=== PATIENT | male | born 1970 | race Caucasian/White ===

== ENCOUNTER 2020-12-31 14:40 | Emergency (ER) | payer OTHER, SELFPAY ==
--- NOTE | 2020-12-31 | ECG_ITS ---
Test Reason : CP Blood Pressure : / mmHG Vent. Rate : 093 BPM Atrial Rate : 093 BPM P-R Int : 118 ms QRS Dur : 080 ms QT Int : 370 ms P-R-T Axes : 042 025 038 degrees QTc Int : 460 ms Normal sinus rhythm Normal ECG When compared with ECG of 08-APR-2018 16:13, No significant change was found Referred By: Jose Antonio Watson Electronically Signed By:DWAYNE GARG
--- NOTE | ~2020-12-31 | CT_ITS ---
EXAMINATION: CT BRAIN AND CHEST EXAM. CLINICAL INFORMATION: Head trauma. Syncope. COMPARISON: None TECHNIQUE: 5 mm thin axial and reformatted 2 mm thin sagittal and coronal images of brain were obtained. The LP 761. Chest 2 views. FINDINGS: BRAIN: There is no acute intra-axial, extra-axial bleed, masses or midline shift. The duarte to white matter differentiation is maintained normal. The lateral ventricles are symmetrical in size and configuration without enlargement. Bone windows reveal no calvarial abnormality. There is no mucosal thickening right maxillary sinus. Rest of the paranasal sinuses and mastoid air cells are well-aerated. No scalp soft tissue abnormality seen. CHEST: The lungs are well-expanded and clear. The heart size and pulmonary vascularity is normal. There is mild spondylosis dorsal spine. CT/CT head/brain wo con IMPRESSION: Unremarkable chest exam. No acute intra-abdominal cranial process seen.
[2020-12-31 14:50] VITALS: BP 142/82; PULSE 93; RESP 16; TEMP 36.8; O2SAT 98; BMI 33.3
[2020-12-31 15:21] VITALS: BP 138/95; PULSE 89; RESP 18; TEMP 37; O2SAT 98
--- NOTE | 2020-12-31 15:53 | PC.NURSE ---
pt to ct scan
[2020-12-31] MEDS: 0.9 % Sodium Chloride 1,000 ML 999 ML IV (16:02)
--- NOTE | 2020-12-31 16:04 | PC.NURSE ---
patient a&ox3, c/o headache, technician's helper nsr 70s, vss, iv inserted, labs drawn, pt had ct scan and cxr performed, will continue to monitor.
[2020-12-31 16:05] LABS: MANUAL DIFF FLAG NO
[2020-12-31 16:11] LABS: Basophils Percent Auto 0.4 % (0-2); Eosinophils Absolute Auto 0.2 X10*3/uL (0.0-0.4); Eosinophils Percent Auto 2.1 % (0-4); Hematocrit 45.4 % (42-52); Hemoglobin 14.5 g/dl (14.0-18.0); Imm Gran Abs Auto 0.07 X10*3/uL (0.00-0.03); Imm Gran Pct Auto 0.8 % (0.0-0.4); Lymphocytes Absolute Auto 2.5 X10*3/uL (1.2-4.9); Lymphocytes Percent Auto 29.6 % (20-40); Mean Corpuscular HGB Conc 31.9 g/dl (31.0-36.0); Mean Corpuscular Hemoglobin 28.4 pg (27.0-33.0); Mean Platelet Volume 10.6 fL (9.4-12.4); Monocytes Absolute Auto 0.6 X10*3/uL (0.1-1.2); Monocytes Percent Auto 6.8 % (2-11); Neutrophils Percent Auto 60.3 % (45-73); Platelet Count 271 X10*3/uL (160-400); Red Cell Distribution Width 14.9 % (11.0-16.0); White Blood Count 8.3 X10*3/uL (4.8-10.8)
[2020-12-31 16:14] LABS: Prothrombin Time 12.4 SEC (10.8-13.0)
[2020-12-31 16:17] LABS: Partial Thromboplastin Time 40.4 SEC (24.1-38.0)
[2020-12-31 16:32] LABS: Alanine Aminotransferase 28 U/L (0-40); Albumin Level 4.5 g/dL (3.5-5.0); Alkaline Phosphatase 104 U/L (39-117); Anion Gap 14 (12-20); Aspartate Amino Transferase 23 U/L (5-37); Bilirubin Total 0.7 mg/dL (0.0-1.0); Blood Urea Nitrogen 12 mg/dL (9-16); Calcium 9.3 mg/dL (8.4-10.2); Carbon Dioxide 27 mmol/L (22-29); Chloride 102 mmol/L (96-108); Creatinine Clr Calc Pharmacy 108.8; Estimated Glomerular Filt Rate > 60; Glucose Random 99 mg/dL (60-115); Potassium 4.3 mmol/L (3.3-5.1); Sodium 139 mmol/L (135-145); Total Protein 7.5 g/dL (6.5-8.0)
[2020-12-31 16:38] LABS: Troponin-I High Sensitivity < 3.5 ng/L (<3.5-35.0)
--- NOTE | 2020-12-31 17:35 | ED.GENADULT ---
HPI - General Adult General Chief complaint: Syncope Stated complaint: syncope Time Seen by Provider: 12/31/20 15:15 Source: patient Mode of arrival: ambulatory Limitations: no limitations History of Present Illness HPI narrative: 50-year-old male who presents emergency department for evaluation of a syncopal episode. The patient states that he was taking a hot shower. He states that he felt dizzy as if he was going to pass out, he then developed a pounding sensation in his sternal area of his chest. States that his heart was jumping in beating fast, his lightheadedness got worse. He then developed numbness around his lips and tongue. He then developed numbness in his arms, left greater than right. The patient states he then passed down struck his head on the wall prior to falling to the ground. He believes he was unconscious for 5-10 minutes. Patient states that a similar episode of syncope approximately 2-3 months prior where his symptoms were preceded by chest pain, facial and arm numbness. He states that he was not ill prior to the syncopal episode. He denied fever, chills, shortness of breath, nausea, vomiting, abdominal pain, changes bowel movements, myalgias or arthralgias. Related Data Allergies Allergy/AdvReac Type Severity Reaction Status Date / Time lisinopril [LISINOPRIL] Allergy Severe ANGIOEDEMA Unverified 07/01/20 16:38 Review of Systems Review of Systems: Yes all other systems are reviewed and are negative [facility] Past Medical History [facility] Narrative: Past medical his recent for hyperlipidemia, depression, anxiety, arthritis. The patient states that he has had surgeries on his lower back and on his knees bilaterally. He denies tobacco use, he states that he occasionally drinks alcohol, denies drug use. Medical History Arthritis High cholesterol Slipped intervertebral disc Social History Social History Alcohol intake: current Alcohol intake frequency: holidays/special occasions only Smoking Status: Never smoker Use of substances other than those prescribed or required for medical reasons: No Advance Directives: No Advance Directives Information Provided: Yes Physical Exam Vital Signs: Vital Signs: Last Vital Signs Temp 98.6 F 12/31/20 15:21 Pulse 89 12/31/20 15:21 Resp 18 12/31/20 15:21 BP 138/95 H 12/31/20 15:21 Pulse Ox 98 12/31/20 15:21 Body Mass Index 33.3 Const: General: cooperative Orientation/consciousness: oriented to person and oriented to place Limitations: no limitations HENMT: Head: Yes normal to inspection, Yes normocephalic and Yes other (Ecchymosis with hematoma to right frontal area of forehead, tender to palpa) Ears: external ears normal General nose exam: Normal external nose present Face and sinus: Yes normal facial exam Mouth: Normal oral and palatal mucosa present Throat: Yes posterior oropharynx normal Eyes: Periorbital: periorbital findings normal Eyelids: Yes eyelids normal Conjunctivae: conjunctivae normal Sclerae: sclerae normal Corneas: corneas normal Pupils: Equal, round and reactive pupils present Direct Ophthalmoscopy: normal light reflex Neck: Neck: Yes full ROM, Yes no lymphadenopathy, Yes no meningeal signs, Yes trachea midline and Yes supple Chest: Chest palpation & inspection: normal inspection of the chest and normal palpation of entire chest wall Resp: Effort & Inspection: normal respiratory effort and able to speak in complete sentences Auscultation: clear to auscultation bilaterally Cardio: Rate: regular rate Rhythm: regular rhythm Heart sounds: S1 normal heart sound present, S2 normal heart sound present and no murmurs GI: Inspection: Yes normal to inspection Palpation (GI): Soft to palpation, nontender, no guarding, not rigid and No hepatosplenomegaly present : General: Yes no CVA tenderness Back/Spine/Pelvis: Back: no CVA tenderness Cervical Spine: normal cervical lordosis Thoracic/Lumbar Spine: thoracic and lumbar spine normal to inspection Skin: Lesions: no lesions Rashes: no rashes Wounds: no wounds Neuro: General: oriented to person, oriented to place and no meningeal signs Cranial nerves: Yes CN's II-XII intact bilaterally and Yes Equal, round and reactive pupils present Cognition (Neuro): normal cognition Motor exam (neuro): 5/5 motor strength present throughout Extrem: General: Yes normal to inspection and Yes full ROM Psych: Appearance: well kempt Mental Status: mental status grossly normal Speech and movement: Normal speech and movement present Affect: normal affect Attitude: cooperative Thought process: Normal thought process present Thought content: Normal thought content present Course Course Course Narrative: 50-year-old male who presents emergency department for evaluation of a syncopal episode. This is the patient's 2nd syncopal episode. This episode occurred while the patient was taking hot shower, he did have prodromal symptoms such as lightheadedness, palpitations, numbness in his face, tongue and hands bilaterally. Patient did fall and sustained a head injury with hematoma to his right forehead and loss consciousness. Differential includes but is not limited to arrhythmia, hypoventilation syndrome, vasovagal syncope. I did order laboratory evaluation on the patient including a CT scan of the head to rule out trauma from his fall. 17 40: The patient's laboratory evaluation was unremarkable, the patient's high sensitivity troponin was undetectable. CT scan of the head revealed no acute fracture bleed. Chest x-ray was unremarkable. Twelve lead EKG was normal. Medical Decision Making Lab Data Result diagrams: 12/31/20 16:00 12/31/20 16:00 Labs: Lab Results 12/31/20 12/31/20 12/31/20 Range/Units 16:00 16:00 16:00 WBC 8.3 (4.8-10.8) X10*3/uL RBC 5.10 (4.60-5.80) X10*6/uL Hgb 14.5 (14.0-18.0) g/dl Hct 45.4 (42-52) % MCV 89.0 (80-98) fL MCH 28.4 (27.0-33.0) pg MCHC 31.9 (31.0-36.0) g/dl RDW 14.9 (11.0-16.0) % Plt Count 271 (160-400) X10*3/uL MPV 10.6 (9.4-12.4) fL Immature Gran % (Auto) 0.8 H (0.0-0.4) % Neut % (Auto) 60.3 (45-73) % Lymph % (Auto) 29.6 (20-40) % [place] % (Auto) 6.8 (2-11) % Eos % (Auto) 2.1 (0-4) % Baso % (Auto) 0.4 (0-2) % Lymph # (Auto) 2.5 (1.2-4.9) X10*3/uL [place] # (Auto) 0.6 (0.1-1.2) X10*3/uL Eos # (Auto) 0.2 (0.0-0.4) X10*3/uL Baso # (Auto) 0.0 (0.0-0.2) X10*3/uL Abs Immat Gran (auto) 0.07 H (0.00-0.03) X10*3/uL Absolute Neuts (auto) 5.0 (2.0-8.3) X10*3/uL Absolute Nucleated RBC 0.000 (0.0-0.012) X10*3/uL Nucleated RBC % (auto) 0.0 (0.0-0.2) /100WBC PT 12.4 (10.8-13.0) SEC INR 1.0 (0.9-1.1) APTT 40.4 H (24.1-38.0) SEC Sodium 139 (135-145) mmol/L Potassium 4.3 (3.3-5.1) mmol/L Chloride 102 (96-108) mmol/L Carbon Dioxide 27 (22-29) mmol/L Anion Gap 14 (12-20) BUN 12 (9-16) mg/dL Creatinine 0.85 (0.5-1.4) mg/dL Estim Creat Clear Calc 108.8 Estimated GFR > 60 Random Glucose 99 (60-115) mg/dL Calcium 9.3 (8.4-10.2) mg/dL Total Bilirubin 0.7 (0.0-1.0) mg/dL AST 23 (5-37) U/L ALT 28 (0-40) U/L Alkaline Phosphatase 104 (39-117) U/L Troponin I High Sens (<3.5-35.0) ng/L Total Protein 7.5 (6.5-8.0) g/dL Albumin 4.5 (3.5-5.0) g/dL 12/31/20 Range/Units 16:00 WBC (4.8-10.8) X10*3/uL RBC (4.60-5.80) X10*6/uL Hgb (14.0-18.0) g/dl Hct (42-52) % MCV (80-98) fL MCH (27.0-33.0) pg MCHC (31.0-36.0) g/dl RDW (11.0-16.0) % Plt Count (160-400) X10*3/uL MPV (9.4-12.4) fL Immature Gran % (Auto) (0.0-0.4) % Neut % (Auto) (45-73) % Lymph % (Auto) (20-40) % [place] % (Auto) (2-11) % Eos % (Auto) (0-4) % Baso % (Auto) (0-2) % Lymph # (Auto) (1.2-4.9) X10*3/uL [place] # (Auto) (0.1-1.2) X10*3/uL Eos # (Auto) (0.0-0.4) X10*3/uL Baso # (Auto) (0.0-0.2) X10*3/uL Abs Immat Gran (auto) (0.00-0.03) X10*3/uL Absolute Neuts (auto) (2.0-8.3) X10*3/uL Absolute Nucleated RBC (0.0-0.012) X10*3/uL Nucleated RBC % (auto) (0.0-0.2) /100WBC PT (10.8-13.0) SEC INR (0.9-1.1) APTT (24.1-38.0) SEC Sodium (135-145) mmol/L Potassium (3.3-5.1) mmol/L Chloride (96-108) mmol/L Carbon Dioxide (22-29) mmol/L Anion Gap (12-20) BUN (9-16) mg/dL Creatinine (0.5-1.4) mg/dL Estim Creat Clear Calc Estimated GFR Random Glucose (60-115) mg/dL Calcium (8.4-10.2) mg/dL Total Bilirubin (0.0-1.0) mg/dL AST (5-37) U/L ALT (0-40) U/L Alkaline Phosphatase (39-117) U/L Troponin I High Sens < 3.5 (<3.5-35.0) ng/L Total Protein (6.5-8.0) g/dL Albumin (3.5-5.0) g/dL ECG Data Interpretation: 1446: Normal sinus rhythm with a rate of 93, normal intervals, no ST segment elevation or depression, no T-wave abnormalities, no old EKG for comparison, this is a normal EKG. Discharge Plan Discharge Clinical Impression: Vasovagal syncope Closed head injury Qualifiers: Encounter type: initial encounter Qualified Code(s): S09.90XA - Unspecified injury of head, initial encounter Hematoma of scalp Qualifiers: Encounter type: initial encounter Qualified Code(s): S00.03XA - Contusion of scalp, initial encounter Patient Disposition: Home, Self-Care Instructions: Syncope (ED), Head Injury (ED) Additional Instructions: The CT scan of your head was normal, there is no skull fracture or bleeding in your brain. Your EKG was normal. Your blood tests were normal. Your presentation is consistent with vasovagal syncope (fainting). This may have been caused by the hot shower. Follow the syncope instructions. Take Tylenol (acetaminophen) 500 mg pills, 2 pills every 4 to 6 hours as needed for pain. Follow-up with your doctor in 2 days. Please return to the emergency department if your symptoms get worse or if you develop any symptoms that are concerning to you.
== END 2020-12-31 18:10 | disposition home or self-care (01) ==
PROVIDERS: Emergency Provider Emergency Medicine Emergency Medical Services; PCP Internal Medicine
DX: R55 Syncope and collapse (principal); S09.90XA Unspecified injury of head, initial encounter; S00.03XA Contusion of scalp, initial encounter; W18.2XXA Fall in (into) shower or empty bathtub, initial encounter; Y93.E1 Activity, personal bathing and showering; Y92.012 Bathroom of single-family (private) house as the place of occurrence of the external cause; Y99.9 Unspecified external cause status
CPT/HCPCS: 36415; 70450; 71046; 80053; 84484; 85025; 85610; 85730; 93005; 96360; 99284

== ENCOUNTER 2021-05-02 16:39 | Emergency (ER) | payer OTHER, SELFPAY ==
[2021-05-02] VITALS (7 sets, daily range): BP systolic 135–170; BP diastolic 66–98; PULSE 60–101; RESP 16–18; TEMP 36.9–37.1; O2SAT 97–99; BMI 33.3
--- NOTE | ~2021-05-02 | CT_ITS ---
EXAMINATION: CT BRAIN AND CT CERVICAL SPINE WITHOUT CONTRAST. CLINICAL INFORMATION: Status post fall off. Bladder. COMPARISON: None TECHNIQUE: 5 mm thin axial and reformatted 2 mm thin sagittal and coronal images of brain were obtained without contrast. Subsequently axial 3 mm thin and reformatted 2 mm thin sagittal and coronal images of cervical spine were obtained. DLP 1404 FINDINGS: Brain: There is no acute intra-axial, extra-axial bleed, masses or midline shift. There is no acute infarct in evolution. There is no edema. The lateral ventricles is symmetrical and normal size. Esparza to white matter differentiation is maintained. Bone windows Cervical spine: There is normal cervical lordosis. The vertebral heights, and alignment is normal. There is moderate ventral spondylosis mid cervical spine. The craniovertebral junction and the C1-C2 alignment is normal. No visible acute fracture, dislocation or subluxation seen. No lytic or sclerotic process seen. The prevertebral and paravertebral soft tissues are normal. Bilateral parotid, submandibular glands and the thyroid lobes are symmetrical and normal. The central airway is widely patent. CT/CT head/brain wo con IMPRESSION: No acute intracranial process seen. There is no acute fracture, dislocation or subluxation in cervical spine.. There is moderate ventral spondylosis mid cervical spine.
--- NOTE | ~2021-05-02 | XR_ITS ---
EXAMINATION: XR CHEST CLINICAL INFORMATION: Syncopal episode. COMPARISON: Chest x-ray December 31, 2020 TECHNIQUE: 2 views of the chest were obtained. FINDINGS: Lungs are clear. No pulmonary vascular congestion. There is no pleural effusion. The heart size is normal. The cardiac and mediastinal contours are normal. There are multilevel degenerative changes of dorsal spine. XR/XR chest 2V IMPRESSION: Unremarkable examination.
--- NOTE | ~2021-05-02 | XR_ITS ---
EXAMINATION: XR SHOULDER, LEFT CLINICAL INFORMATION: Left shoulder pain status post fall. COMPARISON: None TECHNIQUE: Three views of the left shoulder. FINDINGS: The bones and soft tissues are normal. No fracture. Glenohumeral and acromioclavicular alignment is anatomic with normal joint space. No abnormal soft tissue calcifications. XR/XR shoulder LT min 2V IMPRESSION: Unremarkable left shoulder.
--- NOTE | ~2021-05-02 | CT_ITS ---
EXAMINATION: CT BRAIN AND CT CERVICAL SPINE WITHOUT CONTRAST. CLINICAL INFORMATION: Status post fall off. Bladder. COMPARISON: None TECHNIQUE: 5 mm thin axial and reformatted 2 mm thin sagittal and coronal images of brain were obtained without contrast. Subsequently axial 3 mm thin and reformatted 2 mm thin sagittal and coronal images of cervical spine were obtained. DLP 1404 FINDINGS: Brain: There is no acute intra-axial, extra-axial bleed, masses or midline shift. There is no acute infarct in evolution. There is no edema. The lateral ventricles is symmetrical and normal size. Esparza to white matter differentiation is maintained. Bone windows Cervical spine: There is normal cervical lordosis. The vertebral heights, and alignment is normal. There is moderate ventral spondylosis mid cervical spine. The craniovertebral junction and the C1-C2 alignment is normal. No visible acute fracture, dislocation or subluxation seen. No lytic or sclerotic process seen. The prevertebral and paravertebral soft tissues are normal. Bilateral parotid, submandibular glands and the thyroid lobes are symmetrical and normal. The central airway is widely patent. CT/CT cervical spine wo con IMPRESSION: No acute intracranial process seen. There is no acute fracture, dislocation or subluxation in cervical spine.. There is moderate ventral spondylosis mid cervical spine.
--- NOTE | ~2021-05-02 | CT_ITS ---
EXAMINATION: CT ABDOMEN AND PELVIS WITHOUT CONTRAST CLINICAL INFORMATION: Hematuria after fall, flank pain COMPARISON: 05/26/2019 TECHNIQUE: Multidetector volumetric imaging was performed from the superior aspect of the liver through the pubic symphysis. Sagittal and coronal reformatted images were obtained on the technologist's workstation. This CT examination was performed using dose optimization techniques as appropriate, variously including the following: *Automated exposure control *Adjustment of mA and/or kV according to patient size (this includes techniques or standardized protocols for targeted exams where dose is matched to indication/reason for exam; i.e. extremities or head) *Use of iterative reconstruction technique DLP: 711 mGy-cm FINDINGS: LUNG BASES: The visualized lung bases are unremarkable. LIVER, GALLBLADDER, AND BILIARY TREE: The liver demonstrates hypoattenuation consistent with steatosis with some sparing near the gallbladder. No biliary ductal dilatation is present. The gallbladder appears contracted. PANCREAS: Unremarkable. SPLEEN: Couple tiny calcifications noted. ADRENAL GLANDS: Unremarkable. KIDNEYS AND URETERS: The kidneys are normal in size, shape, and attenuation, though parenchymal evaluation is limited without intravenous contrast. No hydronephrosis, hydroureter, or obstructing calculi seen. A few tiny bilateral renal calculi are noted measuring up to 3 mm of the right. No perinephric stranding. BLADDER: Minimally distended and grossly unremarkable. GASTROINTESTINAL TRACT: The small and large bowel are unremarkable. The appendix is unremarkable. No free fluid or free air is seen. ABDOMINAL WALL: No significant hernia is appreciated. LYMPH NODES: Normal. VASCULAR: Unremarkable. PELVIC VISCERA: Unremarkable. OSSEOUS STRUCTURES: No acute fracture is seen. Scattered endplate osteophytes are present in the lumbar spine. There is mild disc space narrowing at L5-S1. There is facet arthropathy of the lower lumbar spine. CT/CT abdomen pelvis wo con IMPRESSION: 1. No acute findings identified in the abdomen/pelvis. 2. Few tiny bilateral renal calculi. 3. Hepatic steatosis.
--- NOTE | 2021-05-02 17:31 | ECG_ITS ---
Test Reason : EDMD Blood Pressure : / mmHG Vent. Rate : 091 BPM Atrial Rate : 091 BPM P-R Int : 112 ms QRS Dur : 082 ms QT Int : 360 ms P-R-T Axes : 010 012 032 degrees QTc Int : 442 ms Normal sinus rhythm Nonspecific T wave abnormality Abnormal ECG When compared with ECG of 31-DEC-2020 14:46, No significant change was found Referred By: Shikha Muir Electronically Signed By:LORENA ARCHIBALD MD
[2021-05-02 18:38] LABS: MANUAL DIFF FLAG NO
[2021-05-02 18:54] LABS: Basophils Percent Auto 0.3 % (0-2); Eosinophils Absolute Auto 0.1 X10*3/uL (0.0-0.4); Eosinophils Percent Auto 0.8 % (0-4); Hematocrit 41.4 % (42-52); Hemoglobin 13.4 g/dl (14.0-18.0); Imm Gran Abs Auto 0.13 X10*3/uL (0.00-0.03); Imm Gran Pct Auto 1.1 % (0.0-0.4); Lymphocytes Absolute Auto 2.5 X10*3/uL (1.2-4.9); Lymphocytes Percent Auto 21.1 % (20-40); Mean Corpuscular HGB Conc 32.4 g/dl (31.0-36.0); Mean Corpuscular Hemoglobin 28.4 pg (27.0-33.0); Mean Corpuscular Volume 87.7 fL (80-98); Mean Platelet Volume 10.3 fL (9.4-12.4); Monocytes Absolute Auto 0.9 X10*3/uL (0.1-1.2); Monocytes Percent Auto 7.9 % (2-11); Neutrophils Absolute Auto 8.1 X10*3/uL (2.0-8.3); Neutrophils Percent Auto 68.8 % (45-73); Platelet Count 275 X10*3/uL (160-400); Red Blood Count 4.72 X10*6/uL (4.60-5.80); Red Cell Distribution Width 14.3 % (11.0-16.0); White Blood Count 11.8 X10*3/uL (4.8-10.8)
[2021-05-02 19:00] LABS: Alanine Aminotransferase 35 U/L (0-40); Albumin Level 4.6 g/dL (3.5-5.0); Alkaline Phosphatase 109 U/L (39-117); Anion Gap 13 (12-20); Aspartate Amino Transferase 23 U/L (5-37); Bilirubin Total 0.3 mg/dL (0.0-1.0); Blood Urea Nitrogen 13 mg/dL (9-16); Calcium 9.5 mg/dL (8.4-10.2); Carbon Dioxide 24 mmol/L (22-29); Chloride 108 mmol/L (96-108); Creatinine Clr Calc Pharmacy 105.1; Estimated Glomerular Filt Rate > 60; Glucose Random 81 mg/dL (60-115); Magnesium 2.2 mg/dL (1.6-2.6); Sodium 141 mmol/L (135-145); Total Protein 7.7 g/dL (6.5-8.0)
--- NOTE | 2021-05-02 19:49 | ED.SYNCOPE ---
HPI - Syncope General Chief Complaint: Syncope Stated Complaint: Dizziness/Fall/Shoulder pain Time Seen by Provider: 05/02/21 17:31 Source: patient Mode of arrival: ambulatory Limitations: no limitations History of Present Illness HPI narrative: 50 y/o male with history of HLD presenting to the ER for evaluation after he passed out at worship earlier today. He reports he was standing on the 2nd step of a step ladder helping his paster install something when he suddenly felt palpitations in his chest and sharp, stabbing left sided chest pains. He felt lightheaded and dizzy and passed out. He fell backward onto his left shoulder. This was witnessed by his heating and cooling systems engineer who reported he lost consciousness for 2-3 minutes. He woke up when his heating and cooling systems engineer threw water on his face. Patient also reports 3 days of vomiting and diarrhea. He last ate around noon and vomited shortly after. He passed out around 3pm today. He has not been eating and drinking much. He also report bloody, red urine since 04/13 and occasional burning when he urinates. He has no abdominal pain. He denies fevers, cough, SOB. He did not get the COVID vaccination. He reports his chest pain is resolved but he he has left shoulder pain from when he fell. He denies headache, neck pain. He ambulated into the ER and has no more lightheadedness or dizziness. Denies ETOH or drug use. MD complaint: loss of consciousness and collapsed Onset (ago): hour(s) (5) Duration of episode: 2 -: minutes(s) Description of event: post-event confusion Prodromal symptoms: lightheaded, chest pain, palpitations and nausea/vomiting Witnessed: Yes - by Bystander Context: standing up Injuries sustained associated with event: LUE Current symptoms: nausea Treatments prior to arrival: none Related Data Previous Rx's Medication Instructions Recorded levofloxacin 500 mg PO DAILY 7 Days #7 tab 05/02/21 Allergies Allergy/AdvReac Type Severity Reaction Status Date / Time lisinopril [LISINOPRIL] Allergy Severe ANGIOEDEMA Verified 05/02/21 21:52 Review of Systems Review of Systems: Constitutional: No Fever, No Chills ENT/Mouth: No sore throat, No Rhinorrhea, No Swallowing Difficulty Eyes: No Eye Pain, No Swelling, No Redness Cardiovascular: + Chest Pain, No SOB, No Orthopnea, No Edema Respiratory: No Cough, No Sputum, No Wheezing, No dyspnea Gastrointestinal: + Nausea, + Vomiting, + Diarrhea, No abdominal Pain, No Hematochezia, No Melena Genitourinary: + Dysuria, No Urinary Frequency, + Hematuria Musculoskeletal: No joint pain, No Myalgias Skin: No Skin Lesions, No rash Neuro: No Weakness, No Numbness, + Dizziness, No Headache Psych: No Anxiety/Panic, No Depression Heme/Lymph: No Bruising, No Lymphadenopathy Endocrine: No Polyuria, No Polydipsia [facility] Past Medical History Attestation statement: The following information was validated with the patient. Medical History Arthritis High cholesterol Slipped intervertebral disc Social History Social History Alcohol intake: never Patient Tobacco Use Status: Never used Tobacco Use of substances other than those prescribed or required for medical reasons: No Advance Directives: No Advance Directives Information Provided: Yes Physical Exam Vital Signs: Vital Signs: Last Vital Signs Temp 98.4 F 05/02/21 21:56 Pulse 80 05/02/21 22:01 Resp 16 05/02/21 21:56 BP 170/98 H 05/02/21 22:01 Pulse Ox 99 05/02/21 22:05 Body Mass Index 33.3 Appearance: Alert. Oriented X3. No acute distress. Eyes: Pupils equal, round and reactive to light. ENT: Pharynx normal. Neck: Normal inspection. Neck supple. No cervical spinal tenderness. CVS: Normal heart rate and rhythm. Pulses normal. Respiratory: No respiratory distress. Breath sounds normal. Abdomen: Soft with mild suprapubic tenderness, no rebound or guarding. +BS x4 Skin: Skin warm and dry. Normal skin color. Normal skin turgor. No rashes. Extremities: No lower extremity edema. Left shoulder with normal inspection, tenderness anterioral laterally with pain upon passive abduction. no palpable deformity. NV intact distall. normal ROM of elbow and wrist. NV intact distally. Left scapula is non-tender. Neuro: Oriented X 3. No motor deficit. No sensory deficit. Ambulates with steady gait. Course Course Course Narrative: 50 y/o male presenting with syncope and collapse in the setting of N/V/D x3 days. Suspect hypovolemia playing a role. Will check orthostatic VS and give IVF. Need to check CT head/cervical spine given mechanism of fall. He is non-focal on neuro exam and appears well. He c/o left sided shoulder pain and suprapubic pain. He has 3 weeks of hematuria and new dysuria. Non-smoker. Will check UA. Reevaluation(s) Reevaluation #1: CT head/neck are unremarkable. Shoulder x-ray normal. Labs show negative troponin, mildly elevated WBC and lipase 97 (similar result 2 years ago). LFTs normal. He has no epigastric pain or RUQ pain. He c/o flank pain and has gross hematuria, dark pink without clots. He reports ongoing for 2+ weeks. Upon review it appears this was present 2 years ago as well. He has never seen a Urologist or had this worked up. However given his recent trauma and c/o flank pain will get CT scan for further evaluation. Reevaluation #2: CT abd/pelvis showing bilateral renal stones, no acute abnormality. No N/V/D in the several hours patient was observed in the ER. He is up ambulating well and feels much better. His orthostatic VS are negative. Will plan to treat for cystitis with PO anx and have him follow up with both his PCP and Urology. Patient agrees wiht plan and is stable for discharge home. MDM - Syncope Differential Diagnosis Differential diagnosis: Likely syncope due to orthostatic hypotension, vasovagal syncope, complete atrioventricular block, subarachnoid hemorrhage and dehydration Medical Records Attestation: I reviewed the patient's medical records. Lab Data Attestation: I reviewed the patient's lab results. Result diagrams: 05/02/21 18:31 05/02/21 18:31 Labs: Lab Results 05/02/21 05/02/21 05/02/21 Range/Units 18:31 18:31 18:31 WBC 11.8 H (4.8-10.8) X10*3/uL RBC 4.72 (4.60-5.80) X10*6/uL Hgb 13.4 L (14.0-18.0) g/dl Hct 41.4 L (42-52) % MCV 87.7 (80-98) fL MCH 28.4 (27.0-33.0) pg MCHC 32.4 (31.0-36.0) g/dl RDW 14.3 (11.0-16.0) % Plt Count 275 (160-400) X10*3/uL MPV 10.3 (9.4-12.4) fL Immature Gran % (Auto) 1.1 H (0.0-0.4) % Neut % (Auto) 68.8 (45-73) % Lymph % (Auto) 21.1 (20-40) % [place] % (Auto) 7.9 (2-11) % Eos % (Auto) 0.8 (0-4) % Baso % (Auto) 0.3 (0-2) % Lymph # (Auto) 2.5 (1.2-4.9) X10*3/uL [place] # (Auto) 0.9 (0.1-1.2) X10*3/uL Eos # (Auto) 0.1 (0.0-0.4) X10*3/uL Baso # (Auto) 0.0 (0.0-0.2) X10*3/uL Abs Immat Gran (auto) 0.13 H (0.00-0.03) X10*3/uL Absolute Neuts (auto) 8.1 (2.0-8.3) X10*3/uL Absolute Nucleated RBC 0.000 (0.0-0.012) X10*3/uL Nucleated RBC % (auto) 0.0 (0.0-0.2) /100WBC Hold Purple Top SEE NOTE Sodium 141 (135-145) mmol/L Potassium 4.0 (3.3-5.1) mmol/L Chloride 108 (96-108) mmol/L Carbon Dioxide 24 (22-29) mmol/L Anion Gap 13 (12-20) BUN 13 (9-16) mg/dL Creatinine 0.88 (0.5-1.4) mg/dL Estim Creat Clear Calc 105.1 Estimated GFR > 60 Random Glucose 81 (60-115) mg/dL Calcium 9.5 (8.4-10.2) mg/dL Magnesium 2.2 (1.6-2.6) mg/dL Total Bilirubin 0.3 (0.0-1.0) mg/dL AST 23 (5-37) U/L ALT 35 (0-40) U/L Alkaline Phosphatase 109 (39-117) U/L Troponin I High Sens (<3.5-35.0) ng/L Total Protein 7.7 (6.5-8.0) g/dL Albumin 4.6 (3.5-5.0) g/dL Lipase 97 H (8-78) U/L Urine Color Urine Appearance Urine pH (5.0-8.0) Ur Specific [place] (1.005-1.025) Urine Protein (NEG-TRACE) MG/DL Urine Glucose (UA) (NEG) MG/DL Urine Ketones (NEG) MG/DL Urine Blood (NEG) Urine Nitrite (NEG) Ur Leukocyte Esterase (NEG) Urine RBC (0) /HPF Urine WBC (0-4) /HPF Ur Squamous Epith Cells /LPF Urine Bacteria /LPF COVID-19 ([facility]) (Negative) COVID-19 Clin Com 05/02/21 05/02/21 05/02/21 Range/Units 18:31 20:29 20:58 WBC (4.8-10.8) X10*3/uL RBC (4.60-5.80) X10*6/uL Hgb (14.0-18.0) g/dl Hct (42-52) % MCV (80-98) fL MCH (27.0-33.0) pg MCHC (31.0-36.0) g/dl RDW (11.0-16.0) % Plt Count (160-400) X10*3/uL MPV (9.4-12.4) fL Immature Gran % (Auto) (0.0-0.4) % Neut % (Auto) (45-73) % Lymph % (Auto) (20-40) % [place] % (Auto) (2-11) % Eos % (Auto) (0-4) % Baso % (Auto) (0-2) % Lymph # (Auto) (1.2-4.9) X10*3/uL [place] # (Auto) (0.1-1.2) X10*3/uL Eos # (Auto) (0.0-0.4) X10*3/uL Baso # (Auto) (0.0-0.2) X10*3/uL Abs Immat Gran (auto) (0.00-0.03) X10*3/uL Absolute Neuts (auto) (2.0-8.3) X10*3/uL Absolute Nucleated RBC (0.0-0.012) X10*3/uL Nucleated RBC % (auto) (0.0-0.2) /100WBC Hold Purple Top Sodium (135-145) mmol/L Potassium (3.3-5.1) mmol/L Chloride (96-108) mmol/L Carbon Dioxide (22-29) mmol/L Anion Gap (12-20) BUN (9-16) mg/dL Creatinine (0.5-1.4) mg/dL Estim Creat Clear Calc Estimated GFR Random Glucose (60-115) mg/dL Calcium (8.4-10.2) mg/dL Magnesium (1.6-2.6) mg/dL Total Bilirubin (0.0-1.0) mg/dL AST (5-37) U/L ALT (0-40) U/L Alkaline Phosphatase (39-117) U/L Troponin I High Sens < 3.5 (<3.5-35.0) ng/L Total Protein (6.5-8.0) g/dL Albumin (3.5-5.0) g/dL Lipase (8-78) U/L Urine Color RED Urine Appearance CLOUDY Urine pH 6.0 (5.0-8.0) Ur Specific [place] 1.015 (1.005-1.025) Urine Protein TRACE (NEG-TRACE) MG/DL Urine Glucose (UA) NEG (NEG) MG/DL Urine Ketones NEG (NEG) MG/DL Urine Blood 3+ H (NEG) Urine Nitrite NEG (NEG) Ur Leukocyte Esterase NEG (NEG) Urine RBC TNTC H (0) /HPF Urine WBC 0-2 (0-4) /HPF Ur Squamous Epith Cells 1+ /LPF Urine Bacteria NONE /LPF COVID-19 ([facility]) Negative (Negative) COVID-19 Clin Com See Note ECG Data Attestation: I personally reviewed and interpreted this ECG as follows: ECG interpretation date: 05/02/21 ECG interpretation time: 16:00 Prior ECG tracings: available for review Interpretation: normal sinus rhythm, HR 91 bpm, normal UT interval, nonspecific T wave abnormality.No ST segment elevations or depressions. Scores Heart Score History: -0- slightly suspicious ECG: -1- non specific repolarization disturbance Age: -1- >45 - <65 Risk factory: -1- 1 or 2 risk factors Troponin: -0- < or = normal limit Score: 3 Risk: 1.7% Discharge Plan Discharge Clinical Impression: Syncope and collapse Hematuria Qualifiers: Hematuria type: unspecified type Qualified Code(s): R31.9 - Hematuria, unspecified Patient Disposition: Home, Self-Care Instructions: Syncope (ED), Hematuria (ED) Additional Instructions: You most likely passed out because of dehydration today. Your x-rays and CT scans were normal. Your lab workup was unremarkable. Your urine has a significant amount of blood in it, this could be due to infection. Recommend starting prescribed antibiotics as directed. You need to follow up with a Urology doctor for further evaluation of your bloody urine. Rest and stay hydrated. No strenuous activity. Follow up with your doctor this week. If you develop new or worsening symptoms call 911 or come back to the ER for further evaluation. Prescriptions: New levofloxacin 500 mg tablet 500 mg PO DAILY 7 Days Qty: 7 RF: 0 Referrals: Melchor Mcclellan MD [Physician] - 2 days (hematuria)
[2021-05-02 20:15] LABS: Troponin-I High Sensitivity < 3.5 ng/L (<3.5-35.0)
[2021-05-02 20:49] LABS: Glucose Urine UA NEG (NEG); Leukocyte Esterase Urine NEG (NEG); Nitrite Urine NEG (NEG); Specific Gravity - Urine 1.015 (1.005-1.025); Urine Blood 3+ (NEG); Urine Ketones NEG (NEG); Urine Protein TRACE MG/DL (NEG-TRACE)
[2021-05-02 20:51] LABS: Color Urine RED
[2021-05-02] MEDS: 0.9 % Sodium Chloride 1,000 ML 999 ML IVCONT ×2 (20:51→21:55)
[2021-05-02 20:52] LABS: Appearance Urine CLOUDY
[2021-05-02] MEDS: ondansetron HCL 4 MG/2 ML VIAL IVPUSH ×2 (20:53→22:11)
[2021-05-02] MEDS: Phenazopyridine HCL 100 MG TABLET PO (20:53)
[2021-05-02] MEDS: Acetaminophen 325 MG TABLET 975 MG PO (20:53)
[2021-05-02 20:59] LABS: RBC Urine TNTC /HPF (0); Squamous Epithelial Cell Urine 1+ /LPF; WBC Urine 0-2 /HPF (0-4)
[2021-05-02 21:24] LABS: COVID-19 Test Negative (Negative)
[2021-05-02 21:54] LABS: Lipase 97 U/L (8-78)
[2021-05-02] MEDS: Ketorolac Tromethamine 30 MG/ML VIAL IVPUSH (22:11)
== END 2021-05-03 00:38 | disposition home or self-care (01) ==
PROVIDERS: Physician Assistant; Physician Assistant Medical; Emergency Provider Internal Medicine; PCP Internal Medicine
DX: R55 Syncope and collapse (principal); R31.0 Gross hematuria; N20.0 Calculus of kidney; Z20.822 Contact with and (suspected) exposure to COVID-19
CPT/HCPCS: 36415; 70450; 71046; 72125; 73030; 74176; 80053; 81001; 83690; 83735; 84484; 85025; 87635; 93005; 96361; 96374; 96375; 96376; 99285; J1885; J2405

== ENCOUNTER 2021-05-09 15:50 | Emergency (ER) | payer OTHER, SELFPAY ==
--- NOTE | 2021-05-09 16:17 | PC.NURSE ---
called in waiting room x2 no answer.
--- NOTE | 2021-05-09 16:23 | PC.NURSE ---
3rd call in waiting room no answer.
== END 2021-05-09 16:30 | disposition left against medical advice (07) ==
PROVIDERS: Emergency Provider Emergency Medicine
DX: R11.0 Nausea (principal)

== ENCOUNTER 2021-05-11 12:27 | Emergency (ER) | payer OTHER, SELFPAY ==
--- NOTE | ~2021-05-11 | CT_ITS ---
EXAMINATION: CT ABDOMEN AND PELVIS WITH CONTRAST CLINICAL INFORMATION: Right lower quadrant pain. COMPARISON: 05/02/2021 TECHNIQUE: Multidetector volumetric images were obtained from the superior aspect of the liver through the pubic symphysis following administration 85 mL of Omnipaque 350 intravenous contrast. Sagittal and coronal reformatted images were obtained on the technologist's workstation. Oral contrast: No This CT examination was performed using dose optimization techniques as appropriate, variously including the following: *Automated exposure control *Adjustment of mA and/or kV according to patient size (this includes techniques or standardized protocols for targeted exams where dose is matched to indication/reason for exam; i.e. extremities or head) *Use of iterative reconstruction technique DLP: 770 mGy-cm FINDINGS: LUNG BASES: The visualized lung bases are unremarkable. LIVER, GALLBLADDER, AND BILIARY TREE: Relative hypoattenuation in hepatic parenchyma is consistent with steatosis. No focal hepatic lesions are identified. Focal fatty sparing is present around the gallbladder fossa. Liver is normal in size and contour. The gallbladder is unremarkable with no evidence of radiopaque gallstones, gallbladder wall thickening, or obvious pericholecystic inflammatory changes. PANCREAS: Unremarkable. SPLEEN: A few punctate calcified granulomas. Normal splenic size. No acute findings. ADRENAL GLANDS: Unremarkable. KIDNEYS AND URETERS: There is a 2 mm calculus within a calyx in the interpolar region of the right kidney. 1 mm calculi are present in the calyces of the left upper and left lower poles. The kidneys are normal in size, shape, and attenuation. No hydronephrosis or hydroureter seen. No perinephric stranding. Subcentimeter cystic foci in both kidneys are too small to characterize, statistically favored to correspond to cysts. No follow-up imaging recommended. BLADDER: Unremarkable. GASTROINTESTINAL TRACT: Hyperdense material around the diaphragmatic hiatus may correspond to prior post surgical changes. No hernia. Stomach, small bowel, and colon are normal in caliber. No bowel wall thickening. Appendix is normal. A few colonic diverticula are identified. No evidence of acute diverticulitis. ABDOMINAL WALL: No significant hernia is appreciated. LYMPH NODES: Normal. VASCULAR: Unremarkable. PELVIC VISCERA: The prostate and seminal vesicles are unremarkable. OSSEOUS STRUCTURES: Mild to moderate degenerative spondylosis is present in the lumbar spine. There is diffuse idiopathic skeletal hyperostosis in the lower thoracic spine. No acute osseous findings. CT/CT abdomen pelvis w con IMPRESSION: 1. Small bilateral nonobstructing renal calculi. No acute intra-abdominal or intrapelvic abnormalities are identified. Normal appendix. 2. Hepatic steatosis.
[2021-05-11 12:29] VITALS: BP 135/86; PULSE 108; RESP 18; TEMP 37; O2SAT 97; BMI 35.4
[2021-05-11 13:54] LABS: MANUAL DIFF FLAG NO
[2021-05-11 13:57] LABS: Appearance Urine TURBID; Basophils Percent Auto 0.3 % (0-2); Color Urine PINK; Eosinophils Absolute Auto 0.1 X10*3/uL (0.0-0.4); Eosinophils Percent Auto 0.6 % (0-4); Glucose Urine UA NEG (NEG); Hematocrit 41.4 % (42-52); Hemoglobin 13.6 g/dl (14.0-18.0); Imm Gran Abs Auto 0.06 X10*3/uL (0.00-0.03); Imm Gran Pct Auto 0.5 % (0.0-0.4); Leukocyte Esterase Urine NEG (NEG); Lymphocytes Absolute Auto 1.8 X10*3/uL (1.2-4.9); Mean Corpuscular HGB Conc 32.9 g/dl (31.0-36.0); Mean Corpuscular Hemoglobin 28.8 pg (27.0-33.0); Mean Corpuscular Volume 87.7 fL (80-98); Mean Platelet Volume 10.2 fL (9.4-12.4); Monocytes Absolute Auto 0.8 X10*3/uL (0.1-1.2); Monocytes Percent Auto 6.5 % (2-11); Neutrophils Percent Auto 77.1 % (45-73); Nitrite Urine NEG (NEG); PH 8.5 (5.0-8.0); Platelet Count 289 X10*3/uL (160-400); Red Blood Count 4.72 X10*6/uL (4.60-5.80); Red Cell Distribution Width 14.4 % (11.0-16.0); Specific Gravity - Urine 1.015 (1.005-1.025); UACC Culture Trigger NO; Urine Blood 3+ (NEG); Urine Ketones NEG (NEG); Urine Protein TRACE MG/DL (NEG-TRACE); White Blood Count 11.7 X10*3/uL (4.8-10.8)
[2021-05-11] MEDS: Ketorolac Tromethamine 15 MG/ML VIAL 30 MG IVPUSH (13:57)
[2021-05-11] MEDS: 0.9 % Sodium Chloride 1,000 ML 999 ML IVCONT (13:57)
[2021-05-11 14:00] VITALS: BP 130/86; PULSE 89; RESP 20; TEMP 37; O2SAT 98
[2021-05-11 14:09] LABS: RBC Urine TNTC /HPF (0); Squamous Epithelial Cell Urine TRACE /LPF; WBC Urine 0-2 /HPF (0-4)
--- NOTE | 2021-05-11 14:20 | ED.ABDPAIN ---
HPI - Abdominal Pain General Chief Complaint: Abdominal Pain Stated Complaint: abd pain Time Seen by Provider: 05/11/21 13:09 Source: patient Mode of arrival: ambulatory Limitations: no limitations History of Present Illness HPI narrative: Patient comes emergency room complaining of abdominal pain in the right lower quadrant/right flank for 4 days. Patient states the has seen blood in the urine as well. Denies fever chills. Patient states the pain is there constant with time it escalates. At this time patient states the pain is 7/10, right lower quadrant pain, nonradiating. Related Data Previous Rx's Medication Instructions Recorded levofloxacin 500 mg tablet 500 mg PO DAILY 7 Days #7 tab 05/02/21 Allergies Allergy/AdvReac Type Severity Reaction Status Date / Time lisinopril [LISINOPRIL] Allergy Severe ANGIOEDEMA Verified 05/11/21 12:29 Review of Systems Review of Systems Constitutional : No Weight loss, No Fever, No Chills, No Night Sweats, No Fatigue, No Malaise ENT/Mouth : No Hearing loss, No Ear Pain, No Nasal Congestion, No Sinus Pain, No Hoarseness, No sore throat, No Rhinorrhea, No Swallowing Difficulty Eyes: No Eye Pain, No Swelling, No Redness, No Foreign Body, No Discharge, No Vision Changes Cardiovascular : No Chest Pain, No SOB, No Dyspnea on Exertion, No Orthopnea, No Edema, No Palpitations Respiratory : No Cough, No Sputum, No Wheezing, No Smoke Exposure, No Dyspnea Gastrointestinal : No Nausea, No Vomiting, No Diarrhea, No Constipation, bleeding of right lower quadrant pain and right flank pain, No Hematochezia, No Melena Genitourinary : Complaining of hematuria, No Dysuria, No Urinary Frequency, No Urinary Incontinence, No Urgency, No Flank Pain, No Urinary Flow Changes, No Hesitancy Musculoskeletal : No joint pain, No Myalgias, No Joint Swelling Skin : No Skin Lesions, No rash Neuro : No Weakness, No Numbness, No Paresthesias, No Loss of Consciousness, No Dizziness, No Headache Psych : No Anxiety/Panic, No Depression, No SI/HI/AH/VH, No Social Issues, Heme/Lymph: No Bruising, No Bleeding,No Lymphadenopathy Endocrine : No Polyuria, No Polydipsia, No Temperature Intolerance Physical Exam Vital Signs: Vital Signs: Last Vital Signs Temp 98.6 F 05/11/21 14:00 Pulse 89 05/11/21 14:00 Resp 16 05/11/21 14:32 BP 130/86 05/11/21 14:00 Pulse Ox 98 05/11/21 14:00 Body Mass Index 35.4 Appearance: Alert. Oriented X3. No acute distress. Eyes: Pupils equal, round and reactive to light. ENT: Pharynx normal. Neck: Normal inspection. Neck supple. No lymph nodes noted. No crepitus CVS: Normal heart rate and rhythm. Pulses normal. Normal S1 and S2 Respiratory: No respiratory distress. Breath sounds normal. No Wheezing. No rales Abdomen: Soft , mild to moderate pain on palpation over right lower quadrant, mild CVA tenderness on the right side, No rigidity. No distention Skin: Skin warm and dry. Normal skin color. Normal skin turgor. Extremities: No lower extremity edema. No lower extremity edema. No Lacerations. No Rash Neuro: Oriented X 3. No motor deficit. No sensory deficit. Moving all extermities. No slurred speech. Course Course Course Narrative: Patient's abdominal CT scan pending. Sign out given to Dr. Watson [facility] - Abdominal Pain Lab Data Result diagrams: 05/11/21 13:45 05/11/21 15:07 Labs: Lab Results 05/11/21 05/11/21 05/11/21 Range/Units 13:45 13:45 15:07 WBC 11.7 H (4.8-10.8) X10*3/uL RBC 4.72 (4.60-5.80) X10*6/uL Hgb 13.6 L (14.0-18.0) g/dl Hct 41.4 L (42-52) % MCV 87.7 (80-98) fL MCH 28.8 (27.0-33.0) pg MCHC 32.9 (31.0-36.0) g/dl RDW 14.4 (11.0-16.0) % Plt Count 289 (160-400) X10*3/uL MPV 10.2 (9.4-12.4) fL Immature Gran % (Auto) 0.5 H (0.0-0.4) % Neut % (Auto) 77.1 H (45-73) % Lymph % (Auto) 15.0 L (20-40) % Grundy % (Auto) 6.5 (2-11) % Eos % (Auto) 0.6 (0-4) % Baso % (Auto) 0.3 (0-2) % Lymph # (Auto) 1.8 (1.2-4.9) X10*3/uL Grundy # (Auto) 0.8 (0.1-1.2) X10*3/uL Eos # (Auto) 0.1 (0.0-0.4) X10*3/uL Baso # (Auto) 0.0 (0.0-0.2) X10*3/uL Abs Immat Gran (auto) 0.06 H (0.00-0.03) X10*3/uL Absolute Neuts (auto) 9.0 H (2.0-8.3) X10*3/uL Absolute Nucleated RBC 0.000 (0.0-0.012) X10*3/uL Nucleated RBC % (auto) 0.0 (0.0-0.2) /100WBC Sodium Cancelled Potassium Cancelled Chloride Cancelled Carbon Dioxide Cancelled Anion Gap Cancelled BUN Cancelled Creatinine Cancelled Estim Creat Clear Calc Cancelled Estimated GFR Cancelled Random Glucose Cancelled Calcium Cancelled Urine Color PINK Urine Appearance TURBID Urine pH 8.5 H (5.0-8.0) Ur Specific Valdez 1.015 (1.005-1.025) Urine Protein TRACE (NEG-TRACE) MG/DL Urine Glucose (UA) NEG (NEG) MG/DL Urine Ketones NEG (NEG) MG/DL Urine Blood 3+ H (NEG) Urine Nitrite NEG (NEG) Ur Leukocyte Esterase NEG (NEG) Urine RBC TNTC H (0) /HPF Urine WBC 0-2 (0-4) /HPF Ur Squamous Epith Cells TRACE /LPF Urine Bacteria NONE /LPF Discharge Plan Discharge Prescriptions: No Action levofloxacin 500 mg tablet 500 mg PO DAILY 7 Days Qty: 7 RF: 0 PMFSH Past Medical History Medical History Arthritis High cholesterol Slipped intervertebral disc Social History Social History Alcohol intake: never Patient Tobacco Use Status: Never used Tobacco Use of substances other than those prescribed or required for medical reasons: No Advance Directives: No Advance Directives Information Provided: Yes
[2021-05-11 14:32] VITALS: RESP 16
[2021-05-11 15:51] LABS: Alanine Aminotransferase 34 U/L (0-40); Albumin Level 4.2 g/dL (3.5-5.0); Alkaline Phosphatase 113 U/L (39-117); Aspartate Amino Transferase 18 U/L (5-37); Bilirubin Direct 0.2 mg/dL (0.0-0.5); Bilirubin Total 0.4 mg/dL (0.0-1.0); Total Protein 6.9 g/dL (6.5-8.0)
[2021-05-11 17:03] LABS: Anion Gap 14 (12-20); Blood Urea Nitrogen 11 mg/dL (9-16); Calcium 9.3 mg/dL (8.4-10.2); Carbon Dioxide 25 mmol/L (22-29); Chloride 104 mmol/L (96-108); Creatinine Clr Calc Pharmacy 114.9; Estimated Glomerular Filt Rate > 60; Glucose Random 95 mg/dL (60-115); Sodium 139 mmol/L (135-145)
[2021-05-11 17:06] VITALS: BP 125/84; PULSE 80; RESP 18; TEMP 37.1; O2SAT 97
[2021-05-11] MEDS: iohexoL 350 MG/ML 100 ML INFUS..BTL IV (17:34)
== END 2021-05-11 18:48 | disposition home or self-care (01) ==
PROVIDERS: Emergency Medicine; Emergency Provider Emergency Medicine Emergency Medical Services
DX: N20.0 Calculus of kidney (principal); R31.9 Hematuria, unspecified; R10.9 Unspecified abdominal pain
CPT/HCPCS: 36415; 74177; 80048; 80076; 81001; 85025; 96361; 96374; 96375; 99284; 99285; J1885; J2405; Q9967

== ENCOUNTER 2021-05-14 10:37 | Observation (INO) | payer OTHER, SELFPAY ==
[2021-05-14] VITALS (8 sets, daily range): BP systolic 121–147; BP diastolic 74–86; PULSE 77–90; RESP 14–18; TEMP 36.3–37.3; O2SAT 95–98; BMI 34.1
--- NOTE | ~2021-05-14 | US_ITS ---
EXAMINATION: US RETROPERITONEAL COMPLETE (RENAL) CLINICAL INFORMATION: Bleeding. Rule out mass.. COMPARISON: None TECHNIQUE: Real-time imaging of the kidneys and bladder. FINDINGS: RIGHT KIDNEY: 11.5 x 5.2 x 4.9 cm (SAG x AP x TRV). The kidney is normal in size, contour, and echogenicity. Renal cortical thickness is normal. There is an echogenic stone mid pole measuring 0.6 cm with lower pole scarring. LEFT KIDNEY: 11.6 x 5.1 x 4.8 cm (SAG x AP x TRV). The kidney is normal in size, contour, and echogenicity. Renal cortical thickness is normal. There are echogenic foci in the upper and lower pole. No echogenic calculi seen. No hydronephrosis. BLADDER: Well distended and normal. Bilateral ureteral jets are demonstrated. Prevoid bladder volume is 230.9 mL. Postvoid bladder volume is 8.5 mL. The prostate volume is 27.3 mL. US/US retroperitoneal comp IMPRESSION: Nonobstructive echogenic renal calculi mid pole measuring 6 mm without caliectasis. There is hypoechoic area in the lower pole suggestive of disc scarring. Scattered echogenic foci in upper pole and lower pole right kidney but no caliectasis or hydronephrosis. Normal bilateral utilized jets seen in bladder.
--- NOTE | ~2021-05-14 | CT_ITS ---
EXAMINATION: CT HEAD WITHOUT CONTRAST CLINICAL INFORMATION: Fall. Rule out bleed. COMPARISON: CT scan of the head dated 05/02/2021. TECHNIQUE: Contiguous axial imaging was performed from the skull base to vertex without intravenous administration of contrast. This CT examination was performed using dose optimization techniques as appropriate, variously including the following: *Automated exposure control *Adjustment of mA and/or kV according to patient size (this includes techniques or standardized protocols for targeted exams where dose is matched to indication/reason for exam; i.e. extremities or head) *Use of iterative reconstruction technique DLP: 741 mGy-cm FINDINGS: There is no evidence of acute intracranial hemorrhage or territorial infarction. No abnormal mass effect or midline shift is seen. [place] to white matter differentiation is well preserved. No extra-axial fluid collections are identified. The ventricles are normal in size. There is no abnormal attenuation within the brain parenchyma. The osseous structures and soft tissues are normal. Incidental note is made of a prominent high riding right jugular bulb. The mastoid air cells and visualized portions of the paranasal sinuses are well aerated. CT/CT head/brain wo con IMPRESSION: No acute intracranial pathology.
--- NOTE | 2021-05-14 11:18 | ED_ITS ---
HPI - Abdominal Pain General Chief Complaint: Abdominal Pain Stated Complaint: blood in urine for 6 days, abd pain Time Seen by Provider: 05/14/21 11:18 History of Present Illness HPI narrative: Patient comes today with 2 complaints First complaint is for several weeks he has had blood in the urine, associated with a right low abdominal pain and right flank pain as well as intermittent nausea and vomiting He has been seen here twice before the for this on the and several days ago He returns today as the pain seems to be getting worse he continues to bleed Second complaint he comes today with a complaint of fainting several times in the last 10 days, when he came on the he also had the complaint of fainting once which was attributed to dehydration from vomiting He describes the fainting episodes as of very brief perhaps 2nd long feeling of dizziness or lightheadedness and the next thing he remembers he is waking up on the floor, the 1st episode was witnessed at [facility] the 2nd episode happened at home and the 3rd episode was yesterday not on standing but as he was walking around his kitchen, he did feel some dizziness but does not describe any chest pain He did fall and hit his head yesterday, he has no headache now he has no vision changes at this moment of time his only complaint is the abdominal pain he has no chest pain no shortness of breath no headache Related Data Home Medications Medication Instructions Recorded Confirmed fluoxetine 20 mg capsule 3 cap PO QAM 05/14/21 05/14/21 prazosin 2 mg capsule 1 cap PO BEDTIME 05/14/21 05/14/21 risperidone 4 mg tablet 1 tab PO BEDTIME 05/14/21 05/14/21 Allergies Allergy/AdvReac Type Severity Reaction Status Date / Time lisinopril [LISINOPRIL] Allergy Severe ANGIOEDEMA Verified 05/14/21 11:41 Review of Systems Review of Systems Positive for 3 syncopal episodes as well as blood in the urine associated with right low abdominal pain and right flank pain and intermittent nausea and vomiting Negatives are no fever no chills no headache no neck pain no chest pain no shortness of breath no dysuria no burning with urination or frequency of urination no blood in the stool no calf pain or swelling no leg swelling no skin rash no loss of muscle strength, no loss of sensation Yes all other systems are reviewed and are negative Physical Exam Vital Signs: Vital Signs: Last Vital Signs Temp 98.8 F 05/14/21 20:00 Pulse 89 05/14/21 20:00 Resp 18 05/14/21 20:00 BP 147/86 H 05/14/21 20:00 Pulse Ox 95 05/14/21 20:00 Body Mass Index 34.1 General appearance is no acute distress he is comfortable appearing now The forehead has a bruise on the forehead, the scalp there is no tenderness or deformity, there is no raccoon eyes there is no Jimenez sign there is no laceration Pupils equal round reactive to light Extraocular motions are intact Neck is supple and nontender The chest is clear to auscultation bilateral Heart no murmur detected, rate and rhythm regular The abdomen had very mild low abdominal right-sided tenderness and very mild right-sided flank tenderness, no rebound no guarding Extremities no edema no calf tenderness or swelling Skin no rash Neuro cranial nerves 2-12 intact as tested, gait and balance were normal, speech was normal comprehension and expression, motor is 5/5 x4, sensation is intact and symmetrical and there is no facial asymmetry Course Course Course Narrative: CT of abdomen had been done on prior visit 2 days ago and patient has no acute changes since then with the blood in the urine continuing the intermittent nausea and vomiting continuing and the right low abdomen and flank pain unchanged Today and a ultrasound of retroperitoneum was done which did not reveal any acute findings, lab evaluation including CBC electrolytes CK troponin did not reveal any acute emergent abnormality, urinalysis did show blood but no other sign of infection EKG was normal sinus rhythm, intervals were normal there were no acute ST c hanges, no acute ischemic changes The case was discussed with attending physician Kathy with concern about the 3 syncopal episodes and it was agreed to admit the patient for syncope and case was discussed with hospitalist and patient was admitted Discharge Plan Discharge Clinical Impression: Syncope, Loin pain, Hematuria Patient Disposition: Admitted As Inpatient Interventions: Admission Worksheet (ED) Last Done: 05/14/21 19:41 Discharge Date/Time: 05/14/21 19:42 [facility] Past Medical History Source: nursing notes reviewed Medical History Arthritis High cholesterol Slipped intervertebral disc Social History Social History Alcohol intake: never Patient Tobacco Use Status: Never used Tobacco Use of substances other than those prescribed or required for medical reasons: No Advance Directives: Yes Advance Directives Information Provided: Yes Advance Directives on File: No Advance Directives Date on File: 05/14/21
[2021-05-14 12:08] LABS: MANUAL DIFF FLAG NO
[2021-05-14] MEDS: 0.9 % Sodium Chloride 1,000 ML 999 ML IVCONT (12:08)
[2021-05-14 12:11] LABS: Basophils Percent Auto 0.2 % (0-2); Eosinophils Absolute Auto 0.1 X10*3/uL (0.0-0.4); Eosinophils Percent Auto 1.1 % (0-4); Hematocrit 43.1 % (42-52); Hemoglobin 13.8 g/dl (14.0-18.0); Imm Gran Abs Auto 0.07 X10*3/uL (0.00-0.03); Imm Gran Pct Auto 0.6 % (0.0-0.4); Lymphocytes Percent Auto 15.8 % (20-40); Mean Corpuscular Hemoglobin 27.9 pg (27.0-33.0); Mean Corpuscular Volume 87.2 fL (80-98); Mean Platelet Volume 10.3 fL (9.4-12.4); Monocytes Absolute Auto 0.8 X10*3/uL (0.1-1.2); Neutrophils Absolute Auto 9.6 X10*3/uL (2.0-8.3); Neutrophils Percent Auto 76.3 % (45-73); Platelet Count 291 X10*3/uL (160-400); Red Blood Count 4.94 X10*6/uL (4.60-5.80); Red Cell Distribution Width 14.6 % (11.0-16.0); White Blood Count 12.6 X10*3/uL (4.8-10.8)
[2021-05-14 12:14] LABS: Glucose Urine UA NEG (NEG); Leukocyte Esterase Urine NEG (NEG); Nitrite Urine NEG (NEG); PH 6.5 (5.0-8.0); UACC Culture Trigger NO; Urine Blood 3+ (NEG); Urine Ketones NEG (NEG); Urine Protein 1+ MG/DL (NEG-TRACE)
[2021-05-14 12:18] LABS: Appearance Urine CLOUDY; Color Urine RED
[2021-05-14 12:24] LABS: RBC Urine TNTC /HPF (0); Squamous Epithelial Cell Urine 1+ /LPF
[2021-05-14 12:40] LABS: Amphetamine Screen Urine Not Detected (Not Detect); Barbiturates, Urine Not Detected (Not Detect); Benzodiazepines Screen Urine Not Detected (Not Detect); Cannabinoid Screen Urine Not Detected (Not Detect); Cocaine Screen Urine Not Detected (Not Detect); Opiate Screen Urine Not Detected (Not Detect); Phencyclidine Screen Urine Not Detected (Not Detect)
[2021-05-14 12:41] LABS: Lipase 66 U/L (8-78)
[2021-05-14 12:53] LABS: Alanine Aminotransferase 31 U/L (0-40); Albumin Level 4.5 g/dL (3.5-5.0); Alkaline Phosphatase 123 U/L (39-117); Anion Gap 17 (12-20); Aspartate Amino Transferase 23 U/L (5-37); Bilirubin Direct < 0.2 mg/dL (0.0-0.5); Bilirubin Total 0.5 mg/dL (0.0-1.0); Blood Urea Nitrogen 14 mg/dL (9-16); Calcium 9.6 mg/dL (8.4-10.2); Carbon Dioxide 23 mmol/L (22-29); Chloride 103 mmol/L (96-108); Creatinine Clr Calc Pharmacy 110.1; Estimated Glomerular Filt Rate > 60; Glucose Random 122 mg/dL (60-115); Potassium 4.8 mmol/L (3.3-5.1); Sodium 138 mmol/L (135-145)
--- NOTE | 2021-05-14 12:58 | ECG_ITS ---
Test Reason : ABDOMINAL PAIN Blood Pressure : / mmHG Vent. Rate : 080 BPM Atrial Rate : 080 BPM P-R Int : 118 ms QRS Dur : 082 ms QT Int : 388 ms P-R-T Axes : 040 014 016 degrees QTc Int : 447 ms Normal sinus rhythm Normal ECG When compared with ECG of 02-MAY-2021 17:36, No significant change was found Referred By: Chris Bautista Electronically Signed By:DWAYNE GARG
[2021-05-14 14:33] LABS: Troponin-I High Sensitivity < 3.5 ng/L (<3.5-35.0)
[2021-05-14] MEDS: Morphine Sulfate 4 MG/ML CARTRIDGE IVPUSH (15:02)
--- NOTE | 2021-05-14 17:45 | P.HPHOSP_ITS ---
History of Present Illness Date of Service: 05/14/21 Chief Complaint: Loin pain, hematuria, syncope A 50 years old male with PMH of obesity presents to the hospital complaining of right loin pain with associated hematuria and the syncope of assist yesterday. Patient reports that he has been having hematuria for the last at least 4 months on and of associated with abdominal pain mainly in the right side. Denies any fever, chills, nausea, vomiting. For the last week it has been getting really worse and he has been complaining of pain that remains in the low in area and does not go down rivero. He was in the emergency twice before for the same problem. He also reported episodes of syncope out of no where. Since the start of this year he had around 6 times last time was yesterday. He reports walking to the kitchen when he suddenly felt unsteady and very weak associated with palpitation and heaviness in his chest and the next thing he remember is waking up on the floor. He does not remember hitting the floor. He had a witnessed episode few weeks before that happened at the [facility] and he was unconscious for a minute or 2. He retains his full consciousness upon waking Up. In the emergency a CT scan of the abdomen and pelvis showed multiple small stones with no obstruction reported. CT scan of the head was negative for any acute findings. EKG shows normal sinus rhythm. Patient admitted for observation. Review of Systems Review of Systems: No fever, chills or weakness Had chest pain and palpitation before having syncope No shortness of breath or coughing Right-sided abdominal pain, nausea or vomiting Hematuria No any rash or wounds PMFSH Medical History Arthritis High cholesterol Slipped intervertebral disc Social History Alcohol intake: never Patient Tobacco Use Status: Never used Tobacco Use of substances other than those prescribed or required for medical reasons: No Advance Directives: Yes Advance Directives Information Provided: Yes Advance Directives on File: No Meds Allergies Allergy/AdvReac Type Severity Reaction Status Date / Time lisinopril [LISINOPRIL] Allergy Severe ANGIOEDEMA Verified 05/14/21 11:41 Active Medications: Current Medications Generic Name Dose Route Start Last Admin Trade Name Freq PRN Reason Stop Dose Admin Acetaminophen 650 mg 05/14/21 17:36 Acetaminophen 325 Mg Tablet PO Q6H PRN Pain, Mild (Pain Scale 1-3) Ondansetron HCl 4 mg 05/14/21 17:36 Ondansetron Hcl 4 Mg/2 Ml Vial IVPUSH Q8H PRN Nausea and Vomiting Rivaroxaban 10 mg 05/15/21 09:00 Rivaroxaban 10 Mg Tablet PO DAILY CHAKA Sodium Chloride 3 ml 05/15/21 00:00 0.9 % Sodium Chloride Flush 3 Ml Syringe IVFLUSH QSHIFT [facility] Home Medications Medication Instructions Recorded Confirmed Last Taken Type fluoxetine 20 mg capsule 3 cap PO QAM 05/14/21 05/14/21 Unknown History prazosin 2 mg capsule 1 cap PO BEDTIME 05/14/21 05/14/21 Unknown History risperidone 4 mg tablet 1 tab PO BEDTIME 05/14/21 05/14/21 Unknown History Physical Exam Vital Signs and Narrative: Vital Signs: Last Vital Signs Temp 99.2 F 05/14/21 14:39 Pulse 80 05/14/21 14:39 Resp 18 05/14/21 14:39 BP 134/82 05/14/21 14:39 Pulse Ox 98 05/14/21 14:39 Body Mass Index 34.1 Const: Other: Constitutional : Alert, oriented, not in distress Neck : Normal inspection, Supple Cardiovascular : RRR, S1 S2, no lower extremity edema Respiratory : Good bilateral air entry, no crackles, wheezes or rhonchi Gastrointestinal: soft, lax, Normal bowel sounds, Non tender Skin : Warm/Dry, No rash Neurological : Alert & oriented x3, No focal deficit Results Labs CBC and Chem 7: 05/14/21 12:02 05/14/21 12:02 Labs: Laboratory Results - last 24 hr 05/14/21 05/14/21 05/14/21 12:02 12:02 12:02 MCV 87.2 MCH 27.9 MCHC 32.0 RDW 14.6 Plt Count 291 MPV 10.3 Immature Gran % (Auto) 0.6 H Neut % (Auto) 76.3 H Lymph % (Auto) 15.8 L [place] % (Auto) 6.0 Eos % (Auto) 1.1 Baso % (Auto) 0.2 Lymph # (Auto) 2.0 [place] # (Auto) 0.8 Eos # (Auto) 0.1 Baso # (Auto) 0.0 Abs Immat Gran (auto) 0.07 H Absolute Neuts (auto) 9.6 H Absolute Nucleated RBC 0.000 Nucleated RBC % (auto) 0.0 Anion Gap 17 Estim Creat Clear Calc 110.1 Estimated GFR > 60 Random Glucose 122 H Calcium 9.6 Total Bilirubin 0.5 Direct Bilirubin < 0.2 AST 23 ALT 31 Alkaline Phosphatase 123 H Total Creatine Kinase 192 H Troponin I High Sens Total Protein 8.0 Albumin 4.5 Lipase 66 Urine Color Urine Appearance Urine pH Ur Specific [place] Urine Protein Urine Glucose (UA) Urine Ketones Urine Blood Urine Nitrite Ur Leukocyte Esterase Urine RBC Urine WBC Ur Squamous Epith Cells Urine Bacteria Urine Opiates Screen Ur Barbiturates Screen Ur Phencyclidine Scrn Ur Amphetamines Screen U Benzodiazepines Scrn Urine Cocaine Screen U Marijuana (THC) Screen 05/14/21 05/14/21 05/14/21 12:02 12:02 13:56 MCV MCH MCHC RDW Plt Count MPV Immature Gran % (Auto) Neut % (Auto) Lymph % (Auto) [place] % (Auto) Eos % (Auto) Baso % (Auto) Lymph # (Auto) [place] # (Auto) Eos # (Auto) Baso # (Auto) Abs Immat Gran (auto) Absolute Neuts (auto) Absolute Nucleated RBC Nucleated RBC % (auto) Anion Gap Estim Creat Clear Calc Estimated GFR Random Glucose Calcium Total Bilirubin Direct Bilirubin AST ALT Alkaline Phosphatase Total Creatine Kinase Troponin I High Sens < 3.5 Total Protein Albumin Lipase Urine Color RED Urine Appearance CLOUDY Urine pH 6.5 Ur Specific [place] 1.020 Urine Protein 1+ H Urine Glucose (UA) NEG Urine Ketones NEG Urine Blood 3+ H Urine Nitrite NEG Ur Leukocyte Esterase NEG Urine RBC TNTC H Urine WBC 1-4 Ur Squamous Epith Cells 1+ Urine Bacteria NONE Urine Opiates Screen Not Detected Ur Barbiturates Screen Not Detected Ur Phencyclidine Scrn Not Detected Ur Amphetamines Screen Not Detected U Benzodiazepines Scrn Not Detected Urine Cocaine Screen Not Detected U Marijuana (THC) Screen Not Detected Imaging Radiologist's Impressions: Impressions Retroperitoneum Ultrasound 05/14/21 11:38 IMPRESSION: Nonobstructive echogenic renal calculi mid pole measuring 6 mm without caliectasis. There is hypoechoic area in the lower pole suggestive of disc scarring. Scattered echogenic foci in upper pole and lower pole right kidney but no caliectasis or hydronephrosis. Normal bilateral utilized jets seen in bladder. Head CT 05/14/21 13:36 IMPRESSION: No acute intracranial pathology. Assessment and Plan (1) Syncope: Status: Acute (2) Loin pain: Status: Acute (3) Hematuria: Status: Acute A 50 years old male with PMH of obesity presents to the hospital c omplaining of right loin pain with associated hematuria and the syncope of assist yesterday. Syncope Could be secondary to vasovagal, arrhythmia related EKG showed normal sinus rhythm with negative troponin Given telemetry To do an echo Consult cardiology Low in pain Hematuria Secondary to multiple small stones shown on CT abdomen and pelvis Ultrasound showed nonobstructive stone mid pole measuring 6 mm To get urology evaluation DVT PPX Xarelto Quality Stroke Does the patient have a stroke diagnosis?: No VTE Prior VTE?: No VTE Risk Level:: Medical - moderate - high VTE Device Contraindication: Treatment Not Indicated VTE Drug Contraindication: N/A - Med Ordered
[2021-05-14 18:52] LABS: COVID-19 Test Negative (Negative)
[2021-05-14] MEDS: Ketorolac Tromethamine 15 MG/ML VIAL 30 MG IVPUSH ×2 (19:33→23:34)
[2021-05-14] MEDS: Acetaminophen 325 MG TABLET 650 MG PO (19:34)
--- NOTE | 2021-05-14 19:41 | PC.NURSE ---
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 pt reports R flank pain, medicated per MAR. Pt offers no additional complaints, is agreeable to plan for observation. Pt stretcher low locked, rails raised, call henriquez within reach
[2021-05-14] MEDS: 0.9 % Sodium Chloride Flush 3 ML SYRINGE IVFLUSH (23:35)
[2021-05-15] MEDS: Acetaminophen 325 MG TABLET 650 MG PO ×2 (01:34→08:18)
[2021-05-15 03:42] VITALS: BP 133/71; PULSE 72; RESP 18; TEMP 36.3; O2SAT 97
[2021-05-15] MEDS: Ketorolac Tromethamine 15 MG/ML VIAL 30 MG IVPUSH (06:22)
[2021-05-15 07:15] VITALS: BP 118/67; PULSE 66; RESP 18; TEMP 36.6; O2SAT 96
[2021-05-15] MEDS: 0.9 % Sodium Chloride Flush 3 ML SYRINGE IVFLUSH (08:37)
[2021-05-15 09:03] LABS: Hematocrit 42.4 % (42-52); Hemoglobin 13.4 g/dl (14.0-18.0); Mean Corpuscular HGB Conc 31.6 g/dl (31.0-36.0); Mean Corpuscular Volume 88.7 fL (80-98); Mean Platelet Volume 10.3 fL (9.4-12.4); Platelet Count 274 X10*3/uL (160-400); Red Blood Count 4.78 X10*6/uL (4.60-5.80); Red Cell Distribution Width 14.4 % (11.0-16.0); White Blood Count 10.1 X10*3/uL (4.8-10.8)
[2021-05-15] MEDS: Morphine Sulfate 2 MG/ML CARTRIDGE IVPUSH ×2 (09:17→13:20)
[2021-05-15 09:28] LABS: Anion Gap 14 (12-20); Blood Urea Nitrogen 13 mg/dL (9-16); Calcium 9.4 mg/dL (8.4-10.2); Carbon Dioxide 27 mmol/L (22-29); Chloride 101 mmol/L (96-108); Creatinine Clr Calc Pharmacy 86.7; Estimated Glomerular Filt Rate > 60; Glucose Random 198 mg/dL (60-115); Potassium 4.5 mmol/L (3.3-5.1); Sodium 137 mmol/L (135-145)
--- NOTE | 2021-05-15 10:34 | PM.CNCAR ---
History of Present Illness History of Present Illness Date of Service: 05/15/21 Consult reason: other (syncope ) Chief complaint: syncope,hematuria Narrative: This is a cardiology consultation for syncopal episodes. He is currently in a hospital for a right loin pain and hematuria. He states that for the last few months, he has passed out a few times. These can happen any time but generally when he is trying to get up from a seated position. The last episode was last week. He reports walking to the kitchen when he suddenly felt unsteady and weak and fell down. During other occasions, he has had episodes of diaphoresis and then fallen down. Overall, possible orthostatic symptoms but not clear. He states that he has had hypertension the past and was on meds but then he developed some tongue swelling and then meds were stopped. No further details available. Review of Systems Review of Systems: Yes all other systems are reviewed and are negative Cardiovascular: Cardiovascular: Reports as per HPI, Reports no additional cardiovascular complaints, Denies acrocyanosis, Denies cool extremities, Denies painful fingertips, Denies chest pain, Denies chest pain at rest, Denies diaphoresis, Denies syncope, Denies irregular heart rhythm, Denies claudication, Denies leg edema, Denies lightheadedness, Denies palpitations and Denies dyspnea Respiratory: Respiratory: Denies dyspnea Neurologic: Denies syncope Endocrine: Endocrine: Denies palpitations PMFSH Past Medical History Medical History Arthritis High cholesterol Slipped intervertebral disc Family History Pertinent family history: Mother with possible pacemaker, but not clear as patient unable to explain Social History Social History Alcohol intake: never Patient Tobacco Use Status: Never used Tobacco Use of substances other than those prescribed or required for medical reasons: No Advance Directives: Yes Advance Directives Information Provided: Yes Advance Directives on File: No Advance Directives Date on File: 05/14/21 Meds Allergies Allergy/AdvReac Type Severity Reaction Status Date / Time lisinopril [LISINOPRIL] Allergy Severe ANGIOEDEMA Verified 05/14/21 11:41 Active Medications: Current Medications Generic Name Dose Route Start Last Admin Trade Name Freq PRN Reason Stop Dose Admin Acetaminophen 650 mg 05/14/21 17:36 Acetaminophen 325 Mg Tablet PO Q6H PRN Pain, Mild (Pain Scale 1-3) Acetaminophen 650 mg 05/14/21 19:00 05/15/21 08:18 Acetaminophen 325 Mg Tablet PO 650 mg Q6H CHAKA Administration Morphine Sulfate 2 mg 05/15/21 09:07 05/15/21 09:17 Morphine Sulfate 2 Mg/Ml Cartridge IVPUSH 2 mg Q4H PRN Administration Pain, Severe (Pain Scale 7-10) Ondansetron HCl 4 mg 05/14/21 17:36 05/15/21 08:39 Ondansetron Hcl 4 Mg/2 Ml Vial IVPUSH 4 mg Q8H PRN Administration Nausea and Vomiting Sodium Chloride 3 ml 05/15/21 00:00 05/15/21 08:37 0.9 % Sodium Chloride Flush 3 Ml Syringe IVFLUSH 3 ml QSHIFT [facility] Administration Home Medications Medication Instructions Recorded Confirmed Last Taken Type fluoxetine 20 mg capsule 3 cap PO QAM 05/14/21 05/14/21 Unknown History prazosin 2 mg capsule 1 cap PO BEDTIME 05/14/21 05/14/21 Unknown History risperidone 4 mg tablet 1 tab PO BEDTIME 05/14/21 05/14/21 Unknown History Physical Exam Vital Signs: Vital Signs: Last Vital Signs Temp 97.8 F 05/15/21 07:15 Pulse 66 05/15/21 07:15 Resp 18 05/15/21 07:15 BP 118/67 05/15/21 07:15 Pulse Ox 96 05/15/21 07:15 Body Mass Index 34.1 Const: General: cooperative and no acute distress HENMT: Other: Unremarkable Neck: Neck: Yes normal visual inspection Chest: Chest palpation & inspection: normal inspection of the chest Resp: Auscultation: clear to auscultation bilaterally, no crackles and no wheezes Cardio: Jugular venous distension: no JVD Palpation: normal PMI Heart sounds: S1 normal heart sound present, S2 normal heart sound present, no gallops, no murmurs and no rubs GI: Palpation (GI): Soft to palpation Back/Spine/Pelvis: Other: unremarkable Skin: General skin exam: no rashes or lesions noted Neuro: Cranial nerves: Yes Other cranial nerve findings present Extrem: General: Yes no clubbing, cyanosis or edema Psych: Mental Status: other Results Labs and Meds Result diagrams: 05/15/21 08:51 05/15/21 08:51 Lab results: Laboratory Results - last 24 hr 05/14/21 05/14/21 05/14/21 12:02 12:02 12:02 WBC 12.6 H RBC 4.94 Hgb 13.8 L Hct 43.1 MCV 87.2 MCH 27.9 MCHC 32.0 RDW 14.6 Plt Count 291 MPV 10.3 Immature Gran % (Auto) 0.6 H Neut % (Auto) 76.3 H Lymph % (Auto) 15.8 L [place] % (Auto) 6.0 Eos % (Auto) 1.1 Baso % (Auto) 0.2 Lymph # (Auto) 2.0 [place] # (Auto) 0.8 Eos # (Auto) 0.1 Baso # (Auto) 0.0 Abs Immat Gran (auto) 0.07 H Absolute Neuts (auto) 9.6 H Absolute Nucleated RBC 0.000 Nucleated RBC % (auto) 0.0 Sodium 138 Potassium 4.8 Chloride 103 Carbon Dioxide 23 Anion Gap 17 BUN 14 Creatinine 0.85 Estim Creat Clear Calc 110.1 Estimated GFR > 60 Random Glucose 122 H Calcium 9.6 Total Bilirubin 0.5 Direct Bilirubin < 0.2 AST 23 ALT 31 Alkaline Phosphatase 123 H Total Creatine Kinase 192 H Troponin I High Sens Total Protein 8.0 Albumin 4.5 Lipase 66 Urine Color Urine Appearance Urine pH Ur Specific [place] Urine Protein Urine Glucose (UA) Urine Ketones Urine Blood Urine Nitrite Ur Leukocyte Esterase Urine RBC Urine WBC Ur Squamous Epith Cells Urine Bacteria Urine Opiates Screen Ur Barbiturates Screen Ur Phencyclidine Scrn Ur Amphetamines Screen U Benzodiazepines Scrn Urine Cocaine Screen U Marijuana (THC) Screen COVID-19 ([facility]) COVID-19 Clin Com 05/14/21 05/14/21 05/14/21 12:02 12:02 13:56 WBC RBC Hgb Hct MCV MCH MCHC RDW Plt Count MPV Immature Gran % (Auto) Neut % (Auto) Lymph % (Auto) [place] % (Auto) Eos % (Auto) Baso % (Auto) Lymph # (Auto) [place] # (Auto) Eos # (Auto) Baso # (Auto) Abs Immat Gran (auto) Absolute Neuts (auto) Absolute Nucleated RBC Nucleated RBC % (auto) Sodium Potassium Chloride Carbon Dioxide Anion Gap BUN Creatinine Estim Creat Clear Calc Estimated GFR Random Glucose Calcium Total Bilirubin Direct Bilirubin AST ALT Alkaline Phosphatase Total Creatine Kinase Troponin I High Sens < 3.5 Total Protein Albumin Lipase Urine Color RED Urine Appearance CLOUDY Urine pH 6.5 Ur Specific [place] 1.020 Urine Protein 1+ H Urine Glucose (UA) NEG Urine Ketones NEG Urine Blood 3+ H Urine Nitrite NEG Ur Leukocyte Esterase NEG Urine RBC TNTC H Urine WBC 1-4 Ur Squamous Epith Cells 1+ Urine Bacteria NONE Urine Opiates Screen Not Detected Ur Barbiturates Screen Not Detected Ur Phencyclidine Scrn Not Detected Ur Amphetamines Screen Not Detected U Benzodiazepines Scrn Not Detected Urine Cocaine Screen Not Detected U Marijuana (THC) Screen Not Detected COVID-19 ([facility]) COVID-19 [employer] Com 05/14/21 05/15/21 05/15/21 18:16 08:51 08:51 WBC 10.1 RBC 4.78 Hgb 13.4 L Hct 42.4 MCV 88.7 MCH 28.0 MCHC 31.6 RDW 14.4 Plt Count 274 MPV 10.3 Immature Gran % (Auto) Neut % (Auto) Lymph % (Auto) [place] % (Auto) Eos % (Auto) Baso % (Auto) Lymph # (Auto) [place] # (Auto) Eos # (Auto) Baso # (Auto) Abs Immat Gran (auto) Absolute Neuts (auto) Absolute Nucleated RBC 0.000 Nucleated RBC % (auto) 0.0 Sodium 137 Potassium 4.5 Chloride 101 Carbon Dioxide 27 Anion Gap 14 BUN 13 Creatinine 1.08 Estim Creat Clear Calc 86.7 Estimated GFR > 60 Random Glucose 198 H D Calcium 9.4 Total Bilirubin Direct Bilirubin AST ALT Alkaline Phosphatase Total Creatine Kinase Troponin I High Sens Total Protein Albumin Lipase Urine Color Urine Appearance Urine pH Ur Specific [place] Urine Protein Urine Glucose (UA) Urine Ketones Urine Blood Urine Nitrite Ur Leukocyte Esterase Urine RBC Urine WBC Ur Squamous Epith Cells Urine Bacteria Urine Opiates Screen Ur Barbiturates Screen Ur Phencyclidine Scrn Ur Amphetamines Screen U Benzodiazepines Scrn Urine Cocaine Screen U Marijuana (THC) Screen COVID-19 ([facility]) Negative COVID-19 Clin Com See Note ECG Interpretation: Baseline 12 lead EKG shows sinus rhythm at 80/Min; no significant ST-T changes and otherwise unremarkable. Imaging Radiologist's impression: Impressions Retroperitoneum Ultrasound 05/14/21 11:38 IMPRESSION: Nonobstructive echogenic renal calculi mid pole measuring 6 mm without caliectasis. There is hypoechoic area in the lower pole suggestive of disc scarring. Scattered echogenic foci in upper pole and lower pole right kidney but no caliectasis or hydronephrosis. Normal bilateral utilized jets seen in bladder. Head CT 05/14/21 13:36 IMPRESSION: No acute intracranial pathology. Assessment and Plan (1) Syncope: Status: Acute Unclear etiology. Possible vasovagal/orthostatic etiology. EKG/trops are unremarkable. Can be discharged from cardiac. FU as outpt will be arranged. Procedures Date of Service Date of Service: 05/15/21
[2021-05-15] MEDS: FLUoxetine HCl 20 MG CAPSULE 60 MG PO (10:47)
[2021-05-15 11:08] VITALS: BP 119/72; PULSE 87; RESP 20; TEMP 36.8; O2SAT 96
[2021-05-15] MEDS: Metoclopramide HCl 10 MG/2 ML VIAL 5 MG IVPUSH (13:16)
[2021-05-15 13:20] VITALS: RESP 16
--- NOTE | 2021-05-15 13:56 | HO.PM.IMPN ---
Subjective Subjective Date of Service: 05/15/21 Interval History: the patient was seen and evaluated this morning Laying in bed, feels comfortable No further episodes of syncope overnight Complaining of abdominal pain and hematuria Denies any fever, chills or shortness of breath No reported other overnight events. Systemic review: No fever, chills or weakness No chest pain, palpitation No shortness of breath or coughing Right loin pain, nausea Hematuria No any rash or wounds Physical Exam Vital Signs: Vital Signs: Last Vital Signs Temp 98.3 F 05/15/21 11:08 Pulse 87 05/15/21 11:08 Resp 16 05/15/21 13:20 BP 119/72 05/15/21 11:08 Pulse Ox 96 05/15/21 11:08 Body Mass Index 34.1 Const: Other: Constitutional : Alert, oriented, not in distress Neck : Normal inspection, Supple Cardiovascular : RRR, S1 S2, no lower extremity edema Respiratory : Good bilateral air entry, no crackles, wheezes or rhonchi Gastrointestinal: soft, lax, Normal bowel sounds, Non tender Skin : Warm/Dry, No rash Neurological : Alert & oriented x3, No focal deficit Objective Data Current Medications Generic Name Dose Route Start Last Admin Trade Name Freq PRN Reason Stop Dose Admin Acetaminophen 650 mg 05/14/21 17:36 Acetaminophen 325 Mg Tablet PO Q6H PRN Pain, Mild (Pain Scale 1-3) Fluoxetine HCl 60 mg 05/15/21 10:45 05/15/21 10:47 Fluoxetine Hcl 20 Mg Capsule PO 60 mg DAILY CHAKA Administration Morphine Sulfate 2 mg 05/15/21 09:07 05/15/21 13:20 Morphine Sulfate 2 Mg/Ml Cartridge IVPUSH 2 mg Q4H PRN Administration Pain, Severe (Pain Scale 7-10) Ondansetron HCl 4 mg 05/14/21 17:36 05/15/21 08:39 Ondansetron Hcl 4 Mg/2 Ml Vial IVPUSH 4 mg Q8H PRN Administration Nausea and Vomiting Prazosin HCl 2 mg 05/15/21 21:00 Prazosin Hcl 1 Mg Capsule PO BEDTIME [facility] Protocol Risperidone 4 mg 05/15/21 21:00 Risperidone 2 Mg Tablet PO BEDTIME CHAKA Sodium Chloride 3 ml 05/15/21 00:00 05/15/21 08:37 0.9 % Sodium Chloride Flush 3 Ml Syringe IVFLUSH 3 ml QSHIFT CHAKA Administration Labs CBC & Chem 7: 05/15/21 08:51 05/15/21 08:51 Labs: Laboratory Results - last 24 hr 05/14/21 05/14/21 05/15/21 13:56 18:16 08:51 MCV 88.7 MCH 28.0 MCHC 31.6 RDW 14.4 Plt Count 274 MPV 10.3 Absolute Nucleated RBC 0.000 Nucleated RBC % (auto) 0.0 Anion Gap Estim Creat Clear Calc Estimated GFR Random Glucose Calcium Troponin I High Sens < 3.5 COVID-19 ([facility]) Negative COVID-19 Clin Com See Note 05/15/21 08:51 MCV MCH MCHC RDW Plt Count MPV Absolute Nucleated RBC Nucleated RBC % (auto) Anion Gap 14 Estim Creat Clear Calc 86.7 Estimated GFR > 60 Random Glucose 198 H D Calcium 9.4 Troponin I High Sens COVID-19 ([facility]) COVID-19 Clin Com Assessment and Plan (1) Hematuria: Status: Acute (2) Loin pain: Status: Acute (3) Syncope: Status: Acute Assessment and Plan: A 50 years old male with PMH of obesity presents to the hospital complaining of right loin pain with associated hematuria and the syncope of assist yesterday. Syncope Could be secondary to vasovagal, arrhythmia related EKG showed normal sinus rhythm with negative troponin No abnormality in rhythm own telemetry Cardiology input appreciated, seems vasovagal, for outpatient follow-up Low in pain Hematuria Secondary to multiple small stones shown on CT abdomen and pelvis Ultrasound showed nonobstructive stone mid pole measuring 6 mm Use morphine as needed for pain Pending urology evaluation DVT PPX Xarelto Quality Stroke Does the patient have a stroke diagnosis?: No VTE Prior VTE?: No VTE Risk Level:: Medical - moderate - high VTE Device Contraindication: Treatment Not Indicated VTE Drug Contraindication: N/A - Med Ordered
[2021-05-15 15:14] VITALS: BP 121/67; PULSE 87; RESP 18; TEMP 36.6; O2SAT 95
--- NOTE | 2021-05-15 16:12 | MHC.CM.PN ---
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 PT REPORTS HE HAS NO OTHER SERVICES. PT USES A CPAP AT NIGHT AND NO OTHER DME. PT DOES NOT HAVE A HCP BUT WILL SPEAK TO HIS DAUGHTER AND LET CM KNOW IF HE WANTS TO COMPLETE ONE. PT REPORTS HIS PCP IS AT [facility] IN [place], UNSURE OF THE NAME. OBS NOTICE DELIVERED CURRENT DC PLAN IS HOME WITH [employer]UMPT[employer] OF [employer] FAMILY TO TRANSPORT
--- NOTE | 2021-05-16 08:05 | P.DS_ITS ---
DS: Providers Provider Date of Service: 05/15/21 Date of admission: 05/14/21 17:36 Primary care physician: Unknown Physician Consults: 05/14/21 17:36 Consult to Cardiology Routine Consulting Provider: Hair Pickett Reason for consultation: recurrent fainting episodes w palpitation 05/15/21 09:07 Consult to Urology Routine Consulting Provider: Melchor Mcclellan Reason for consultation: Loin pain, hematuria for your eval DS: Diagnosis Discharge Diagnosis (1) Hematuria: Status: Acute (2) Loin pain: Status: Acute (3) Syncope: Status: Acute DS: Medications Discharge Medications Home Medications: Home Medications Medication Instructions Recorded Confirmed fluoxetine 20 mg capsule 3 cap PO QAM 05/14/21 05/14/21 prazosin 2 mg capsule 1 cap PO BEDTIME 05/14/21 05/14/21 risperidone 4 mg tablet 1 tab PO BEDTIME 05/14/21 05/14/21 DS: Summary Hospital Course Hospital Course: Admission note HPI A 50 years old male with PMH of obesity presents to the hospital complaining of right loin pain with associated hematuria and the syncope of assist yesterday. Patient reports that he has been having hematuria for the last at least 4 months on and of associated with abdominal pain mainly in the right side.? Denies any fever, chills, nausea, vomiting.? For the last week it has been getting really worse and he has been complaining of pain that remains in the low in area and does not go down rivero.? He was in the emergency twice before for the same problem. He also reported episodes of syncope out of no where.? Since the start of this year he had around 6 times last time was yesterday.? He reports walking to the kitchen when he suddenly felt unsteady and very weak associated with palpitation and heaviness in his chest and the next thing he remember is waking up on the floor.? He does not remember hitting the floor.? He had a witnessed [facility] and he was unconscious for a minute or 2. He retains his full consciousness upon waking Up.? In the emergency a CT scan of the abdomen and pelvis showed multiple small stones with no obstruction reported. CT scan of the head was negative for any acute findings.? EKG shows normal sinus rhythm. Patient admitted for observation. Hospital course Patient was admitted on monitored on telemetry with no abnormal rhythm noted. He was evaluated by Cardiology who recommended no further inpatient workup needed as the patient can follow outpatient with likely vasovagal attack responsible for his fainting spells. Next Lyme continue to have hematuria and pain requiring IV and oral pain medications. Was supposed to see urologist but he could not wait the surgeon to come by as he has young daughter living by herself at home so he decided to leave and to follow-up with his primary care the next morning. Time Spent with Patient Time attestation: Total time spent providing and/or coordinating discharge services: Discharge coordination time: Greater than 30 minutes Quality: Stroke Does the patient have a stroke diagnosis?: No Physical Exam Vital Signs: Vital Signs: Last Vital Signs Temp 98 F 05/15/21 15:14 Pulse 87 05/15/21 15:14 Resp 18 05/15/21 15:14 BP 121/67 05/15/21 15:14 Pulse Ox 95 05/15/21 15:14 Body Mass Index 34.1 Const: Other: Constitutional : Alert, oriented, not in distress Neck : Normal inspection, Supple Cardiovascular : RRR, S1 S2, no lower extremity edema Respiratory : Good bilateral air entry,? no crackles, wheezes or rhonchi Gastrointestinal:? soft, lax, Normal bowel sounds, Non tender Skin : Warm/Dry, No rash Neurological : Alert & oriented x3, No focal deficit DS: Data Data Completed and Pending Labs on day of discharge: Laboratory Results - last 24 hr 05/15/21 05/15/21 08:51 08:51 WBC 10.1 RBC 4.78 Hgb 13.4 L Hct 42.4 MCV 88.7 MCH 28.0 MCHC 31.6 RDW 14.4 Plt Count 274 MPV 10.3 Absolute Nucleated RBC 0.000 Nucleated RBC % (auto) 0.0 Sodium 137 Potassium 4.5 Chloride 101 Carbon Dioxide 27 Anion Gap 14 BUN 13 Creatinine 1.08 Estim Creat Clear Calc 86.7 Estimated GFR > 60 Random Glucose 198 H D Calcium 9.4 Discharge Plan Discharge Patient Disposition: Left Against Medical Advice Referrals: Melchor Mcclellan MD [Physician] - 1 week (Hematuria, multiple stones, 6 mm non -obstructing stone ) Physician,Unknown [Primary Care Provider] - 2 days Discharge Medications: No Action risperidone 4 mg tablet 1 tab PO BEDTIME RF: 0 fluoxetine 20 mg capsule 3 cap PO QAM RF: 0 prazosin 2 mg capsule 1 cap PO BEDTIME RF: 0 Discharge Orders: Discharge Order (Routine); Ordered 05/15/21 Ordered By: Marco Antonio Schreiber Care Plan Goals: Read below Health Concerns: Read below Plan of Treatment: Cardiology evaluation, follow as outpatient Assessment: To see PCP tomorrow to get urology evaluation Discharge Date/Time: 05/15/21 16:40
== END 2021-05-15 16:40 | disposition left against medical advice (07) ==
LOC: HO.ED 11:08 → HO.EDOVER 18:09 → HO.IMC 19:27
PROVIDERS: Physician Assistant Medical; Admitting Provider Student in an Organized Health Care Education/Training Program; Emergency Provider Emergency Medicine Emergency Medical Services; Visit Provider Student in an Organized Health Care Education/Training Program
DX: R55 Syncope and collapse (principal); R31.9 Hematuria, unspecified; R10.31 Right lower quadrant pain; N20.0 Calculus of kidney; E78.00 Pure hypercholesterolemia, unspecified; E66.9 Obesity, unspecified; Z68.34 Body mass index [BMI] 34.0-34.9, adult; Z91.81 History of falling; Z20.822 Contact with and (suspected) exposure to COVID-19; Z88.8 Allergy status to other drugs, medicaments and biological substances; Z79.899 Other long term (current) drug therapy; Z53.29 Procedure and treatment not carried out because of patient's decision for other reasons
CPT/HCPCS: 36415; 70450; 76770; 80048; 80076; 80307; 81001; 82550; 83690; 84484; 85025; 85027; 87635; 93005; 96361; 96374; 96375; 96376; 99219; 99285; J1885; J2270; J2405; J2765

== ENCOUNTER 2021-05-19 09:43 | Observation (INO) | payer OTHER, SELFPAY ==
[2021-05-19] VITALS (10 sets, daily range): BP systolic 117–150; BP diastolic 69–90; PULSE 83–113; RESP 14–18; TEMP 36.6–37.1; O2SAT 98–99; BMI 34.1
--- NOTE | ~2021-05-19 | CT_ITS ---
EXAMINATION: CT CERVICAL SPINE WITHOUT CONTRAST CLINICAL INFORMATION: Fall COMPARISON: April 21, 20192020 TECHNIQUE: CT cervical spine with coronal and sagittal reconstructions. This CT examination was performed using dose optimization techniques as appropriate, variously including the following: *Automated exposure control *Adjustment of mA and/or kV according to patient size (this includes techniques or standardized protocols for targeted exams where dose is matched to indication/reason for exam; i.e. extremities or head) *Use of iterative reconstruction technique DLP: 604.4mGy-cm FINDINGS: No abnormal prevertebral soft tissue swelling is seen. Paraspinal muscle fat planes are maintained. Pterygoid plates intact. Temporomandibular joints unremarkable. Mastoid air cells are aerated. No acute cervical spine fracture is identified. There is degenerative spurring seen C4-C7. No significant disc space narrowing is appreciated. There is some spurring of joints of [place] but without significant bony encroachment of the neural foramina. CT/CT cervical spine wo con IMPRESSION: No acute cervical spine fracture. Cervical spondylosis as described.
--- NOTE | ~2021-05-19 | CT_ITS ---
EXAMINATION: CT ANGIOGRAM OF THE CHEST WITH AND WITHOUT CONTRAST (CT PULMONARY ANGIOGRAM FOR PE) CLINICAL INFORMATION: Reason for Exam syncope chest pain COMPARISON: CT abdomen 05/11/2021, renal ultrasound 05/14/2021 TECHNIQUE: Prior to contrast administration, noncontrast localization images were obtained. Subsequently, multidetector volumetric imaging was performed from the thoracic inlet to below the diaphragms following the administration of 65 mL Omnipaque 350 intravenous contrast. No contrast reaction reported Sagittal, coronal, and MIP oblique sagittal reformatted images were obtained on the CT workstation, uploaded to PACS, and reviewed. This CT examination was performed using dose optimization techniques as appropriate, variously including the following: *Automated exposure control *Adjustment of mA and/or kV according to patient size (this includes techniques or standardized protocols for targeted exams where dose is matched to indication/reason for exam; i.e. extremities or head) *Use of iterative reconstruction technique Total exam dose-length product 337 mGy-cm FINDINGS: QUALITY OF STUDY/CONTRAST BOLUS: Satisfactory. Enhancement is slightly greater on the pulmonary venous side, related to timing. PULMONARY ARTERIES: No central or segmental pulmonary emboli. THORACIC AORTA: No aneurysm or dissection. LUNG: The central airways are clear. There is no endobronchial lesion or bronchiectasis. No airspace consolidation or groundglass opacity. No mass. PLEURA: No pleural thickening, or effusion, or pneumothorax. MEDIASTINUM: Normal heart size. No pericardial effusion. No hilar or mediastinal lymphadenopathy. No evidence of septal bowing or right heart strain. CHEST WALL/AXILLA: No axillary or internal mammary lymphadenopathy. OSSEOUS STRUCTURES: No acute or suspicious osseous abnormality. UPPER ABDOMEN: Unremarkable. No reflux of contrast into the hepatic veins to suggest elevated right heart pressures. CT/CT angio chest PE protocol IMPRESSION: 1. No pulmonary embolism. 2. No thoracic aortic dissection or aneurysmal enlargement. 3. Lungs clear. No airspace consolidation or effusion. VTE: negative
--- NOTE | ~2021-05-19 | CT_ITS ---
EXAMINATION: CT HEAD WITHOUT CONTRAST CLINICAL INFORMATION: Fall, trauma, pain COMPARISON: CT head 05/14/2021, 05/02/2021, 12/31/2020 TECHNIQUE: Contiguous axial imaging was performed from the skull base to vertex without intravenous administration of contrast. Additional 2-D coronal and sagittal reformatted images are generated on the CT workstation and uploaded to PACS. This CT examination was performed using dose optimization techniques as appropriate, variously including the following: *Automated exposure control *Adjustment of mA and/or kV according to patient size (this includes techniques or standardized protocols for targeted exams where dose is matched to indication/reason for exam; i.e. extremities or head) *Use of iterative reconstruction technique DLP: 604 mGy-cm FINDINGS: There is no intracranial hemorrhage, hematoma, or extra-axial fluid collection. The ventricles are normal in size. There is no hydrocephalus, edema, or mass effect. The duarte-white matter differentiation is stable. There is no mass effect or edema. There is no visible acute territorial infarct or mass lesion. The right transverse sinus is better visible than the left, similar to prior exams. No acute abnormality. The calvarium appears intact. There is no pneumocephalus or orbital emphysema. The visualized sinuses and middle ears and mastoid air cells show no significant mucosal thickening. There are no air-fluid levels. CT/CT head/brain wo con IMPRESSION: 1. No acute intracranial abnormality when compared with prior studies. 2. If patient has recurrent balance issues, further evaluation may be performed with MRI.
--- NOTE | 2021-05-19 11:06 | ED.SYNCOPE ---
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 Mode of arrival: ambulatory Limitations: no limitations History of Present Illness MD complaint: loss of consciousness, felt faint and collapsed Onset (ago): hour(s) (6am today) -: minutes(s) Prodromal symptoms: lightheaded, chest pain and palpitations Witnessed: No Context: other (showering) Injuries sustained associated with event: head Current symptoms: chest pain, nausea and abdominal pain History: previous syncopal episode Treatments prior to arrival: none Related Data Home Medications Medication Instructions Recorded Confirmed fluoxetine 20 mg capsule 60 mg PO DAILY 05/14/21 05/19/21 prazosin 2 mg capsule 2 mg PO BEDTIME 05/14/21 05/19/21 risperidone 4 mg tablet 4 mg PO BEDTIME 05/14/21 05/19/21 Allergies Allergy/AdvReac Type Severity Reaction Status Date / Time lisinopril [LISINOPRIL] Allergy Severe ANGIOEDEMA Verified 05/14/21 11:41 Review of Systems Review of Systems: Constitutional : No Weight loss, No Fever, No Chills ENT/Mouth : No sore throat, No Rhinorrhea Eyes: No Eye Pain, No Swelling Cardiovascular : pos Chest Pain, no SOB, no Dyspnea on Exertion, No Orthopnea, No Edema, No Palpitations Respiratory : No Cough, No Sputum Gastrointestinal : pos Nausea, No Vomiting, No Diarrhea, pos abdominal Pain, No Hematochezia, No Melena Genitourinary : No Dysuria, No Urinary Frequency, pos hematuria Musculoskeletal : No joint pain, No Myalgias, No Joint Swelling Skin : No Skin Lesions, No rash Neuro : No Weakness, No Numbness, No Dizziness, No Headache, pos syncope Psych : No Anxiety/Panic, No Depression Heme/Lymph: No Bruising, No Lymphadenopathy Endocrine : No Polyuria, No Polydipsia All other systems reviewed and are negative PMFSH Past Medical History Attestation statement: The following information was validated with the patient. Medical History Arthritis Hematuria High cholesterol Loin pain Slipped intervertebral disc Syncope Social History Social History Alcohol intake: never Patient Tobacco Use Status: Never used Tobacco Use of substances other than those prescribed or required for medical reasons: No Advance Directives: Yes Advance Directives on File: Yes Advance Directives Date on File: 05/14/21 service: No Current occupational status: unemployed Physical Exam Vital Signs: Vital Signs: Last Vital Signs Temp 98 F 05/19/21 09:50 Pulse 90 05/19/21 14:13 Resp 14 05/19/21 14:13 BP 117/69 05/19/21 14:13 Pulse Ox 99 05/19/21 14:13 Body Mass Index 34.1 Appearance: Alert. Oriented X3. No acute distress. Eyes: Pupils equal, round and reactive to light. ENT: Pharynx normal. Contusion to forehead Neck: Normal inspection. Neck supple. CVS: Normal heart rate and rhythm. Pulses normal. Respiratory: No respiratory distress. Breath sounds normal. Abdomen: Soft and mild R sided ttp Skin: Skin warm and dry. Normal skin color. Normal skin turgor. Extremities: No lower extremity edema. No calf ttp Neuro: Oriented X 3. No motor deficit. No sensory deficit. Course Course Course Narrative: notified Dr. Moses given his repeat visits for the same - ECHO, NPO at midnight, story is concerning MDM - Syncope MDM Narrative Medical decision making narrative: 50 yo male with multiple visits for hematuria, chest pain and head strike, syncopal events seen by cardiology on 05/15 not felt to be cardiac in nature, admitted overnight on 05/15 normal tele - comes in again with syncope, chest pain fall and strike to head at this time labs, CT head/neck for trauma, IVF, CTA for PE/dissection, will discuss again with cardiology about any further recommendations Lab Data Result diagrams: 05/19/21 11:37 05/19/21 11:37 Labs: Lab Results 05/19/21 05/19/21 05/19/21 Range/Units 11:12 11:37 11:37 WBC 10.8 (4.8-10.8) X10*3/uL RBC 5.21 (4.60-5.80) X10*6/uL Hgb 14.8 (14.0-18.0) g/dl Hct 46.1 (42-52) % MCV 88.5 (80-98) fL MCH 28.4 (27.0-33.0) pg MCHC 32.1 (31.0-36.0) g/dl RDW 14.5 (11.0-16.0) % Plt Count 303 (160-400) X10*3/uL MPV 10.0 (9.4-12.4) fL Immature Gran % (Auto) 0.7 H (0.0-0.4) % Neut % (Auto) 73.7 H (45-73) % Lymph % (Auto) 18.7 L (20-40) % [place] % (Auto) 5.8 (2-11) % Eos % (Auto) 0.7 (0-4) % Baso % (Auto) 0.4 (0-2) % Lymph # (Auto) 2.0 (1.2-4.9) X10*3/uL [place] # (Auto) 0.6 (0.1-1.2) X10*3/uL Eos # (Auto) 0.1 (0.0-0.4) X10*3/uL Baso # (Auto) 0.0 (0.0-0.2) X10*3/uL Abs Immat Gran (auto) 0.07 H (0.00-0.03) X10*3/uL Absolute Neuts (auto) 7.9 (2.0-8.3) X10*3/uL Absolute Nucleated RBC 0.000 (0.0-0.012) X10*3/uL Nucleated RBC % (auto) 0.0 (0.0-0.2) /100WBC PT (9.9-13.0) SEC INR (0.9-1.1) APTT (24.1-38.0) SEC Sodium 140 (135-145) mmol/L Potassium 4.1 (3.3-5.1) mmol/L Chloride 103 (96-108) mmol/L Carbon Dioxide 27 (22-29) mmol/L Anion Gap 14 (12-20) BUN 10 (9-16) mg/dL Creatinine 0.89 (0.5-1.4) mg/dL Estim Creat Clear Calc 105.2 Estimated GFR > 60 Random Glucose 114 D (60-115) mg/dL Calcium 9.5 (8.4-10.2) mg/dL Magnesium 2.1 (1.6-2.6) mg/dL Total Bilirubin 0.5 (0.0-1.0) mg/dL Direct Bilirubin 0.2 (0.0-0.5) mg/dL AST 17 (5-37) U/L ALT 30 (0-40) U/L Alkaline Phosphatase 135 H (39-117) U/L Total Creatine Kinase (38-174) U/L Troponin I High Sens (<3.5-35.0) ng/L Total Protein 8.0 (6.5-8.0) g/dL Albumin 4.6 (3.5-5.0) g/dL Urine Color RENARD Urine Appearance CLOUDY Urine pH 6.0 (5.0-8.0) Ur Specific [place] >= 1.030 H (1.005-1.025) Urine Protein 1+ H (NEG-TRACE) MG/DL Urine Glucose (UA) NEG (NEG) MG/DL Urine Ketones NEG (NEG) MG/DL Urine Blood 3+ H (NEG) Urine Nitrite NEG (NEG) Ur Leukocyte Esterase NEG (NEG) Urine RBC TNTC H (0) /HPF Urine WBC 0-2 (0-4) /HPF Ur Squamous Epith Cells 1+ /LPF Urine Bacteria TRACE /LPF Urine Mucus 2+ /LPF COVID-19 ([facility]) (Negative) COVID-19 Clin Com 05/19/21 05/19/21 05/19/21 Range/Units 11:37 11:37 11:37 WBC (4.8-10.8) X10*3/uL RBC (4.60-5.80) X10*6/uL Hgb (14.0-18.0) g/dl Hct (42-52) % MCV (80-98) fL MCH (27.0-33.0) pg MCHC (31.0-36.0) g/dl RDW (11.0-16.0) % Plt Count (160-400) X10*3/uL MPV (9.4-12.4) fL Immature Gran % (Auto) (0.0-0.4) % Neut % (Auto) (45-73) % Lymph % (Auto) (20-40) % [place] % (Auto) (2-11) % Eos % (Auto) (0-4) % Baso % (Auto) (0-2) % Lymph # (Auto) (1.2-4.9) X10*3/uL [place] # (Auto) (0.1-1.2) X10*3/uL Eos # (Auto) (0.0-0.4) X10*3/uL Baso # (Auto) (0.0-0.2) X10*3/uL Abs Immat Gran (auto) (0.00-0.03) X10*3/uL Absolute Neuts (auto) (2.0-8.3) X10*3/uL Absolute Nucleated RBC (0.0-0.012) X10*3/uL Nucleated RBC % (auto) (0.0-0.2) /100WBC PT 12.3 (9.9-13.0) SEC INR 1.1 (0.9-1.1) APTT 39.0 H (24.1-38.0) SEC Sodium (135-145) mmol/L Potassium (3.3-5.1) mmol/L Chloride (96-108) mmol/L Carbon Dioxide (22-29) mmol/L Anion Gap (12-20) BUN (9-16) mg/dL Creatinine (0.5-1.4) mg/dL Estim Creat Clear Calc Estimated GFR Random Glucose (60-115) mg/dL Calcium (8.4-10.2) mg/dL Magnesium (1.6-2.6) mg/dL Total Bilirubin (0.0-1.0) mg/dL Direct Bilirubin (0.0-0.5) mg/dL AST (5-37) U/L ALT (0-40) U/L Alkaline Phosphatase (39-117) U/L Total Creatine Kinase 85 D (38-174) U/L Troponin I High Sens < 3.5 (<3.5-35.0) ng/L Total Protein (6.5-8.0) g/dL Albumin (3.5-5.0) g/dL Urine Color Urine Appearance Urine pH (5.0-8.0) Ur Specific [place] (1.005-1.025) Urine Protein (NEG-TRACE) MG/DL Urine Glucose (UA) (NEG) MG/DL Urine Ketones (NEG) MG/DL Urine Blood (NEG) Urine Nitrite (NEG) Ur Leukocyte Esterase (NEG) Urine RBC (0) /HPF Urine WBC (0-4) /HPF Ur Squamous Epith Cells /LPF Urine Bacteria /LPF Urine Mucus /LPF COVID-19 ([facility]) (Negative) COVID-19 [facility] 05/19/21 Range/Units 11:37 WBC (4.8-10.8) X10*3/uL RBC (4.60-5.80) X10*6/uL Hgb (14.0-18.0) g/dl Hct (42-52) % MCV (80-98) fL MCH (27.0-33.0) pg MCHC (31.0-36.0) g/dl RDW (11.0-16.0) % Plt Count (160-400) X10*3/uL MPV (9.4-12.4) fL Immature Gran % (Auto) (0.0-0.4) % Neut % (Auto) (45-73) % Lymph % (Auto) (20-40) % [place] % (Auto) (2-11) % Eos % (Auto) (0-4) % Baso % (Auto) (0-2) % Lymph # (Auto) (1.2-4.9) X10*3/uL [place] # (Auto) (0.1-1.2) X10*3/uL Eos # (Auto) (0.0-0.4) X10*3/uL Baso # (Auto) (0.0-0.2) X10*3/uL Abs Immat Gran (auto) (0.00-0.03) X10*3/uL Absolute Neuts (auto) (2.0-8.3) X10*3/uL Absolute Nucleated RBC (0.0-0.012) X10*3/uL Nucleated RBC % (auto) (0.0-0.2) /100WBC PT (9.9-13.0) SEC INR (0.9-1.1) APTT (24.1-38.0) SEC Sodium (135-145) mmol/L Potassium (3.3-5.1) mmol/L Chloride (96-108) mmol/L Carbon Dioxide (22-29) mmol/L Anion Gap (12-20) BUN (9-16) mg/dL Creatinine (0.5-1.4) mg/dL Estim Creat Clear Calc Estimated GFR Random Glucose (60-115) mg/dL Calcium (8.4-10.2) mg/dL Magnesium (1.6-2.6) mg/dL Total Bilirubin (0.0-1.0) mg/dL Direct Bilirubin (0.0-0.5) mg/dL AST (5-37) U/L ALT (0-40) U/L Alkaline Phosphatase (39-117) U/L Total Creatine Kinase (38-174) U/L Troponin I High Sens (<3.5-35.0) ng/L Total Protein (6.5-8.0) g/dL Albumin (3.5-5.0) g/dL Urine Color Urine Appearance Urine pH (5.0-8.0) Ur Specific [place] (1.005-1.025) Urine Protein (NEG-TRACE) MG/DL Urine Glucose (UA) (NEG) MG/DL Urine Ketones (NEG) MG/DL Urine Blood (NEG) Urine Nitrite (NEG) Ur Leukocyte Esterase (NEG) Urine RBC (0) /HPF Urine WBC (0-4) /HPF Ur Squamous Epith Cells /LPF Urine Bacteria /LPF Urine Mucus /LPF COVID-19 ([facility]) Negative (Negative) COVID-19 Clin Com See Note ECG Data Attestation: I personally reviewed and interpreted this ECG as follows: ECG interpretation date: 05/19/21 ECG interpretation time: 11:18 Interpretation: Rate: 102 Rhythm: sinus tachycardia Perry: normal Normal P waves. Normal GOLD. Normal QRS complex. ST T wave : normal no MARY KAY qTC: normal prior studies: no acute ischemia The study has been interpreted contemporaneously by me. . Discharge Plan Discharge Clinical Impression: Syncope, Chest pain, Contusion Patient Disposition: Admitted As Inpatient Prescriptions: No Action risperidone 4 mg tablet 4 mg PO BEDTIME RF: 0 fluoxetine 20 mg capsule 60 mg PO DAILY RF: 0 prazosin 2 mg capsule 2 mg PO BEDTIME RF: 0
[2021-05-19 11:20] LABS: Glucose Urine UA NEG (NEG); Leukocyte Esterase Urine NEG (NEG); Nitrite Urine NEG (NEG); Specific Gravity - Urine >= 1.030 (1.005-1.025); Urine Blood 3+ (NEG); Urine Ketones NEG (NEG); Urine Protein 1+ MG/DL (NEG-TRACE)
[2021-05-19 11:22] LABS: Appearance Urine CLOUDY; Color Urine AMBER
[2021-05-19 11:46] LABS: MANUAL DIFF FLAG NO
[2021-05-19 11:47] LABS: Basophils Percent Auto 0.4 % (0-2); Eosinophils Absolute Auto 0.1 X10*3/uL (0.0-0.4); Eosinophils Percent Auto 0.7 % (0-4); Hematocrit 46.1 % (42-52); Hemoglobin 14.8 g/dl (14.0-18.0); Imm Gran Abs Auto 0.07 X10*3/uL (0.00-0.03); Imm Gran Pct Auto 0.7 % (0.0-0.4); Lymphocytes Percent Auto 18.7 % (20-40); Mean Corpuscular HGB Conc 32.1 g/dl (31.0-36.0); Mean Corpuscular Hemoglobin 28.4 pg (27.0-33.0); Mean Corpuscular Volume 88.5 fL (80-98); Monocytes Absolute Auto 0.6 X10*3/uL (0.1-1.2); Monocytes Percent Auto 5.8 % (2-11); Neutrophils Absolute Auto 7.9 X10*3/uL (2.0-8.3); Neutrophils Percent Auto 73.7 % (45-73); Platelet Count 303 X10*3/uL (160-400); Red Blood Count 5.21 X10*6/uL (4.60-5.80); Red Cell Distribution Width 14.5 % (11.0-16.0); White Blood Count 10.8 X10*3/uL (4.8-10.8)
[2021-05-19 11:53] LABS: INTERNATIONAL NORM RATIO 1.1 (0.9-1.1); Prothrombin Time 12.3 SEC (9.9-13.0)
[2021-05-19 12:03] LABS: Bacteria Urine TRACE /LPF; Mucus Urine 2+ /LPF; RBC Urine TNTC /HPF (0); Squamous Epithelial Cell Urine 1+ /LPF; WBC Urine 0-2 /HPF (0-4)
[2021-05-19 12:06] LABS: COVID-19 Test Negative (Negative); IDNOW Serial# 9DD0AD1C
[2021-05-19 12:13] LABS: Alanine Aminotransferase 30 U/L (0-40); Albumin Level 4.6 g/dL (3.5-5.0); Alkaline Phosphatase 135 U/L (39-117); Anion Gap 14 (12-20); Aspartate Amino Transferase 17 U/L (5-37); Bilirubin Direct 0.2 mg/dL (0.0-0.5); Bilirubin Total 0.5 mg/dL (0.0-1.0); Blood Urea Nitrogen 10 mg/dL (9-16); Calcium 9.5 mg/dL (8.4-10.2); Carbon Dioxide 27 mmol/L (22-29); Chloride 103 mmol/L (96-108); Creatinine Clr Calc Pharmacy 105.2; Estimated Glomerular Filt Rate > 60; Glucose Random 114 mg/dL (60-115); Magnesium 2.1 mg/dL (1.6-2.6); Potassium 4.1 mmol/L (3.3-5.1); Sodium 140 mmol/L (135-145)
[2021-05-19 12:20] LABS: Troponin-I High Sensitivity < 3.5 ng/L (<3.5-35.0)
--- NOTE | 2021-05-19 12:20 | PHA.MEDREC ---
Pharmacy Consult ? Medication Reconciliation Pharmacy has completed the medication reconciliation. There are no remarkable issues for provider's attention. Olive Daigle, ArtD
[2021-05-19] MEDS: 0.9 % Sodium Chloride 1,000 ML 999 ML IVCONT (12:33)
[2021-05-19] MEDS: iohexoL 350 MG/ML 100 ML INFUS..BTL IV (14:49)
--- NOTE | 2021-05-19 15:10 | PC.NURSE ---
Patient is resting quietly in bed watching tv in no distress. Pt states headache is better and rates it a 3/10
--- NOTE | 2021-05-19 16:07 | P.HPHOSP_ITS ---
History of Present Illness Date of Service: 05/19/21 50 year old male with recurent syncope, hematuria and loin pain for at least 4 months now. He was admitted to the hospical recently from May 14 to May 16 with syncope and hematuria and presents today in similar fashion. His electrocardiograms have been normal and cardiology recommended no further work up for possible vasovagal attacks. He was in shower today, experience palpta tions, then syncope and hit head, he has an abrainsion on the forhead, he also says he had chest tightness at that time. Work up today negative ECG, negative troponin I, negative PE by CTA, negative cervical spine CT. ECG unremarkable. His CBC is normal despite hematuria Review of Systems Review of Systems: Gen: no fever Resp: no sob, no cough CV: no chest, no MACIEL, no leg edema GI: No n/v, no abd pain : Hematuria Neuro: No confusion [facility] Medical History (Updated 05/19/21 @ 16:16 by Daniel Alvarez MD) Arthritis Hematuria High cholesterol Loin pain Slipped intervertebral disc Syncope Social History Alcohol intake: never Patient Tobacco Use Status: Never used Tobacco Use of substances other than those prescribed or required for medical reasons: No Advance Directives: Yes Advance Directives on File: Yes Advance Directives Date on File: 05/14/21 service: No Current occupational status: unemployed Meds Allergies Allergy/AdvReac Type Severity Reaction Status Date / Time lisinopril [LISINOPRIL] Allergy Severe ANGIOEDEMA Verified 05/14/21 11:41 Active Medications: Current Medications Generic Name Dose Route Start Last Admin Trade Name Gemini PRN Reason Stop Dose Admin Pharmacy Consult 1 each 05/19/21 11:34 Consult Rx Perform Med Rec MISCELLANE ONCE PRN Consult order Home Medications Medication Instructions Recorded Confirmed Last Taken Type fluoxetine 20 mg capsule 60 mg PO DAILY 05/14/21 05/19/21 05/18/21 History prazosin 2 mg capsule 2 mg PO BEDTIME 05/14/21 05/19/21 05/18/21 History risperidone 4 mg tablet 4 mg PO BEDTIME 05/14/21 05/19/21 05/18/21 History Physical Exam Vital Signs and Narrative: Vital Signs: Last Vital Signs Temp 98 F 05/19/21 09:50 Pulse 90 05/19/21 14:13 Resp 14 05/19/21 14:13 BP 117/69 05/19/21 14:13 Pulse Ox 99 05/19/21 14:13 Body Mass Index 34.1 Const: Other: Constitutional Awake and Alert, No apparent distress Neck Supple, No lymphadenopathy Cardiovascular RRR, No M/R/G, S1 S2, No S3 S4, No pedal edema Respiratory Lungs clear, No respiratory distress Gastrointestinal Non tender, Non-distended Skin No rash Neurological Alert & oriented x3 Psychological Appropriate affect Results Labs CBC and Chem 7: 05/19/21 11:37 05/19/21 11:37 Labs: Laboratory Results - last 24 hr 05/19/21 05/19/21 05/19/21 11:12 11:37 11:37 MCV 88.5 MCH 28.4 MCHC 32.1 RDW 14.5 Plt Count 303 MPV 10.0 Immature Gran % (Auto) 0.7 H Neut % (Auto) 73.7 H Lymph % (Auto) 18.7 L [place] % (Auto) 5.8 Eos % (Auto) 0.7 Baso % (Auto) 0.4 Lymph # (Auto) 2.0 [place] # (Auto) 0.6 Eos # (Auto) 0.1 Baso # (Auto) 0.0 Abs Immat Gran (auto) 0.07 H Absolute Neuts (auto) 7.9 Absolute Nucleated RBC 0.000 Nucleated RBC % (auto) 0.0 PT INR APTT Anion Gap 14 Estim Creat Clear Calc 105.2 Estimated GFR > 60 Random Glucose 114 D Calcium 9.5 Magnesium 2.1 Total Bilirubin 0.5 Direct Bilirubin 0.2 AST 17 ALT 30 Alkaline Phosphatase 135 H Total Creatine Kinase Troponin I High Sens Total Protein 8.0 Albumin 4.6 Urine Color RENARD Urine Appearance CLOUDY Urine pH 6.0 Ur Specific [place] >= 1.030 H Urine Protein 1+ H Urine Glucose (UA) NEG Urine Ketones NEG Urine Blood 3+ H Urine Nitrite NEG Ur Leukocyte Esterase NEG Urine RBC TNTC H Urine WBC 0-2 Ur Squamous Epith Cells 1+ Urine Bacteria TRACE Urine Mucus 2+ COVID-19 ([facility]) COVID-19 Clin Com 05/19/21 05/19/21 05/19/21 11:37 11:37 11:37 MCV MCH MCHC RDW Plt Count MPV Immature Gran % (Auto) Neut % (Auto) Lymph % (Auto) [place] % (Auto) Eos % (Auto) Baso % (Auto) Lymph # (Auto) [place] # (Auto) Eos # (Auto) Baso # (Auto) Abs Immat Gran (auto) Absolute Neuts (auto) Absolute Nucleated RBC Nucleated RBC % (auto) PT 12.3 INR 1.1 APTT 39.0 H Anion Gap Estim Creat Clear Calc Estimated GFR Random Glucose Calcium Magnesium Total Bilirubin Direct Bilirubin AST ALT Alkaline Phosphatase Total Creatine Kinase 85 D Troponin I High Sens < 3.5 Total Protein Albumin Urine Color Urine Appearance Urine pH Ur Specific [place] Urine Protein Urine Glucose (UA) Urine Ketones Urine Blood Urine Nitrite Ur Leukocyte Esterase Urine RBC Urine WBC Ur Squamous Epith Cells Urine Bacteria Urine Mucus COVID-19 ([facility]OMARA) COVID-19 Clin Com 05/19/21 11:37 MCV MCH MCHC RDW Plt Count MPV Immature Gran % (Auto) Neut % (Auto) Lymph % (Auto) [place] % (Auto) Eos % (Auto) Baso % (Auto) Lymph # (Auto) [place] # (Auto) Eos # (Auto) Baso # (Auto) Abs Immat Gran (auto) Absolute Neuts (auto) Absolute Nucleated RBC Nucleated RBC % (auto) PT INR APTT Anion Gap Estim Creat Clear Calc Estimated GFR Random Glucose Calcium Magnesium Total Bilirubin Direct Bilirubin AST ALT Alkaline Phosphatase Total Creatine Kinase Troponin I High Sens Total Protein Albumin Urine Color Urine Appearance Urine pH Ur Specific [place] Urine Protein Urine Glucose (UA) Urine Ketones Urine Blood Urine Nitrite Ur Leukocyte Esterase Urine RBC Urine WBC Ur Squamous Epith Cells Urine Bacteria Urine Mucus COVID-19 ([facility]) Negative COVID-19 Clin Com See Note Imaging Radiologist's Impressions: Impressions Chest CTA 05/19/21 11:34 IMPRESSION: 1. No pulmonary embolism. 2. No thoracic aortic dissection or aneurysmal enlargement. 3. Lungs clear. No airspace consolidation or effusion. VTE: negative Cervical Spine CT 05/19/21 11:35 IMPRESSION: No acute cervical spine fracture. Cervical spondylosis as described. Head CT 05/19/21 11:35 IMPRESSION: 1. No acute intracranial abnormality when compared with prior studies. 2. If patient has recurrent balance issues, further evaluation may be performed with MRI. Assessment and Plan (1) Syncope: Qualifiers: Syncope type: unspecified Qualified Code(s): R55 - Syncope and collapse Status: Acute (2) Chest pain: Qualifiers: Chest pain type: unspecified Qualified Code(s): R07.9 - Chest pain, unspecified Status: Acute 50/ year male with recurrent syncope of unclear etiology, negative cardiac work up thus far. Observation admission, tele monitoring, cardiology evaluation. Echo tomorrow. Quality Stroke Does the patient have a stroke diagnosis?: No VTE Prior VTE?: No VTE Risk Level:: Medical - moderate - high VTE Device Contraindication: N/A - Device Ordered VTE Drug Contraindication: N/A - Med Ordered
--- NOTE | 2021-05-19 17:45 | PC.NURSE ---
[employer] at bedside
--- NOTE | 2021-05-19 17:54 | P.DS_ITS ---
DS: Providers Provider Date of Service: 05/19/21 Date of admission: 05/19/21 16:51 Primary care physician: Unknown Physician Consults: 05/19/21 15:59 Consult to Cardiology Stat Consulting Provider: Adan Moses Reason for consultation: syncope, chest pain Has provider been notified: Yes 05/19/21 16:54 Consult to Cardiology Routine Consulting Provider: Adan Moses Reason for consultation: chest pain, syncope DS: Diagnosis Discharge Diagnosis (1) Syncope: Status: Acute (2) Chest pain: Status: Acute DS: Medications Discharge Medications Home Medications: Home Medications Medication Instructions Recorded Confirmed fluoxetine 20 mg capsule 60 mg PO DAILY 05/14/21 05/19/21 prazosin 2 mg capsule 2 mg PO BEDTIME 05/14/21 05/19/21 risperidone 4 mg tablet 4 mg PO BEDTIME 05/14/21 05/19/21 Previous Rx's Medication Instructions Recorded aspirin 81 mg tablet,delayed 81 mg PO DAILY #30 tab 05/19/21 release heparin (porcine) 25,000 unit/250 25,000 unit CONTINUOUS IV INFUSION 05/19/21 mL in 0.45 % sodium chloride IV .Q0M #250 ml soln DS: Summary Hospital Course Hospital Course: HPI: 50 year old male with recurent syncope, hematuria and loin pain for at least 4 months now. He was admitted to the hospical recently from May 14 to May 16 with syncope and hematuria and presents today in similar fashion. His electrocardiograms have been normal and cardiology recommended no further work up for possible vasovagal attacks.? He was in shower today, experience palptations, then syncope and hit head, he has an abrainsion on the forhead, he also says he had chest tightness at that time. ? Work up today negative ECG, negative troponin I,? negative PE by CTA, negative cervical spine CT. ECG unremarkable.? His CBC is normal despite hematuria Hospital course .Patient was just admitted with chest pain and sycope that is recurrent, trop negative , ECG unremarkable. Given recurrent syncope that doesn't sound neurological and LOC, cardiac recommend cardiac w/y with Cath, for now starting heparin, ASA. Of note he c/o hematuria that has been an ongoing issues, CBC is normal--but need to be closely monitored while on heparin and ASA Time Spent with Patient Time attestation: Total time spent providing and/or coordinating discharge services: Discharge coordination time: Greater than 30 minutes Quality: Stroke Does the patient have a stroke diagnosis?: No Physical Exam 2 Vital Signs: Vital Signs: Last Vital Signs Temp 98.5 F 05/19/21 16:12 Pulse 92 05/19/21 16:12 Resp 16 05/19/21 16:12 BP 125/76 05/19/21 16:12 Pulse Ox 98 05/19/21 16:12 Body Mass Index 34.1 Const: Other: General: AO X 3, no acute distress HEENT: has an abrasion on the forehead Resp: CTA bilateral CVS: S1,S2,RRR GI: +BS, NT, no distention Skin: No rash Neuro: motor grossly intact Psych: appropriate affect DS: Data Data Completed and Pending Labs on day of discharge: Laboratory Results - last 24 hr 05/19/21 05/19/21 05/19/21 11:12 11:37 11:37 WBC 10.8 RBC 5.21 Hgb 14.8 Hct 46.1 MCV 88.5 MCH 28.4 MCHC 32.1 RDW 14.5 Plt Count 303 MPV 10.0 Immature Gran % (Auto) 0.7 H Neut % (Auto) 73.7 H Lymph % (Auto) 18.7 L [place] % (Auto) 5.8 Eos % (Auto) 0.7 Baso % (Auto) 0.4 Lymph # (Auto) 2.0 [place] # (Auto) 0.6 Eos # (Auto) 0.1 Baso # (Auto) 0.0 Abs Immat Gran (auto) 0.07 H Absolute Neuts (auto) 7.9 Absolute Nucleated RBC 0.000 Nucleated RBC % (auto) 0.0 PT INR APTT Sodium 140 Potassium 4.1 Chloride 103 Carbon Dioxide 27 Anion Gap 14 BUN 10 Creatinine 0.89 Estim Creat Clear Calc 105.2 Estimated GFR > 60 Random Glucose 114 D Calcium 9.5 Magnesium 2.1 Total Bilirubin 0.5 Direct Bilirubin 0.2 AST 17 ALT 30 Alkaline Phosphatase 135 H Total Creatine Kinase Troponin I High Sens Total Protein 8.0 Albumin 4.6 Urine Color RENARD Urine Appearance CLOUDY Urine pH 6.0 Ur Specific [place] >= 1.030 H Urine Protein 1+ H Urine Glucose (UA) NEG Urine Ketones NEG Urine Blood 3+ H Urine Nitrite NEG Ur Leukocyte Esterase NEG Urine RBC TNTC H Urine WBC 0-2 Ur Squamous Epith Cells 1+ Urine Bacteria TRACE Urine Mucus 2+ COVID-19 ([facility]) COVID-19 [facility] Com 05/19/21 05/19/21 05/19/21 11:37 11:37 11:37 WBC RBC Hgb Hct MCV MCH MCHC RDW Plt Count MPV Immature Gran % (Auto) Neut % (Auto) Lymph % (Auto) [place] % (Auto) Eos % (Auto) Baso % (Auto) Lymph # (Auto) [place] # (Auto) Eos # (Auto) Baso # (Auto) Abs Immat Gran (auto) Absolute Neuts (auto) Absolute Nucleated RBC Nucleated RBC % (auto) PT 12.3 INR 1.1 APTT 39.0 H Sodium Potassium Chloride Carbon Dioxide Anion Gap BUN Creatinine Estim Creat Clear Calc Estimated GFR Random Glucose Calcium Magnesium Total Bilirubin Direct Bilirubin AST ALT Alkaline Phosphatase Total Creatine Kinase 85 D Troponin I High Sens < 3.5 Total Protein Albumin Urine Color Urine Appearance Urine pH Ur Specific [place] Urine Protein Urine Glucose (UA) Urine Ketones Urine Blood Urine Nitrite Ur Leukocyte Esterase Urine RBC Urine WBC Ur Squamous Epith Cells Urine Bacteria Urine Mucus COVID-19 ([facility]) COVID-19 [employer] Com 05/19/21 11:37 WBC RBC Hgb Hct MCV MCH MCHC RDW Plt Count MPV Immature Gran % (Auto) Neut % (Auto) Lymph % (Auto) [place] % (Auto) Eos % (Auto) Baso % (Auto) Lymph # (Auto) [place] # (Auto) Eos # (Auto) Baso # (Auto) Abs Immat Gran (auto) Absolute Neuts (auto) Absolute Nucleated RBC Nucleated RBC % (auto) PT INR APTT Sodium Potassium Chloride Carbon Dioxide Anion Gap BUN Creatinine Estim Creat Clear Calc Estimated GFR Random Glucose Calcium Magnesium Total Bilirubin Direct Bilirubin AST ALT Alkaline Phosphatase Total Creatine Kinase Troponin I High Sens Total Protein Albumin Urine Color Urine Appearance Urine pH Ur Specific [place] Urine Protein Urine Glucose (UA) Urine Ketones Urine Blood Urine Nitrite Ur Leukocyte Esterase Urine RBC Urine WBC Ur Squamous Epith Cells Urine Bacteria Urine Mucus COVID-19 ([facility]) Negative COVID-19 [facility] Com See Note Discharge Plan Discharge Anticipated Discharge Date/Time: 05/19/21 17:51 Patient Disposition: Xfer Acute Care Hospital Discharge Diagnosis: Chest pain, syncope Referrals: Physician,Unknown [Primary Care Provider] - 1 Week Discharge Medications: New heparin(porcine) in 0.45% NaCl 25,000 unit/250 mL Parenteral Solution 25,000 unit continuous IV infusion .Q0M Qty: 250 RF: 0 aspirin 81 mg tablet,delayed release (DR/EC) 81 mg PO DAILY Qty: 30 RF: 0 Continued risperidone 4 mg tablet 4 mg PO BEDTIME RF: 0 fluoxetine 20 mg capsule 60 mg PO DAILY RF: 0 prazosin 2 mg capsule 2 mg PO BEDTIME RF: 0 Discharge Orders: Discharge Order (Routine); Ordered 05/19/21 Ordered By: aDniel Alvarez Diet: advance to usual diet Activity on Discharge: As tolerated Stand Alone Forms: Patient Portal Discharge page Care Plan Goals: Cardiac work up Health Concerns: Chest pain with syncope Plan of Treatment: Transfer to [facility] for cardiac cath Assessment: As above
--- NOTE | 2021-05-19 17:55 | PC.NURSE ---
Patient is sitting up in bed alert and in no distress. Pt denies any pain currently.
--- NOTE | 2021-05-19 18:13 | PM.CNCAR ---
History of Present Illness History of Present Illness Date of Service: 05/19/21 Requesting physician: Daniel Alvarez Chief complaint: Syncope,chest pain Narrative: 50-year-old gentleman who had chest pressure radiating to the left arm and then passed out. He hit his head. He said he had similar episode happened couple of days ago. He has been experiencing some exertional chest pressure also. With these symptoms he presented [facility]. His EKG is unremarkable. Labs are normal. Review of Systems Review of Systems: No chest pain or shortness of breath. Yes all other systems are reviewed and are negative [facility] Past Medical History Medical History (Updated 05/19/21 @ 16:16 by Daniel Alvarez MD) Arthritis Hematuria High cholesterol Loin pain Slipped intervertebral disc Syncope Social History Social History Alcohol intake: never Patient Tobacco Use Status: Never used Tobacco Use of substances other than those prescribed or required for medical reasons: No Advance Directives: Yes Advance Directives on File: Yes Advance Directives Date on File: 05/14/21 service: No Current occupational status: unemployed Meds Allergies Allergy/AdvReac Type Severity Reaction Status Date / Time lisinopril [LISINOPRIL] Allergy Severe ANGIOEDEMA Verified 05/14/21 11:41 Active Medications: Current Medications Generic Name Dose Route Start Last Admin Trade Name Freq PRN Reason Stop Dose Admin Heparin Sodium (Porcine) 3,700 unit 05/19/21 17:49 Heparin Sodium,Porcine 5,000 Unit/Ml Vial 40 unit/kg (3700 unit) IVPUSH PROTOCOL BOLUS PRN 40 unit/kg - Heparin Protocol Protocol Heparin Sodium (Porcine) 7,400 unit 05/19/21 17:49 Heparin Sodium,Porcine 5,000 Unit/Ml Vial 80 unit/kg (7400 unit) IVPUSH PROTOCOL BOLUS PRN 80 unit/kg - Heparin Protocol Protocol Heparin Sodium/Sodium Chloride 25,000 unit in 250 mls @ 0 mls/hr 05/19/21 18:00 IVCONT .Q0M CHAKA Protocol Per Protocol Pharmacy Consult 1 each 05/19/21 11:34 Consult Rx Perform Med Rec MISCELLANE ONCE PRN Consult order Sodium Chloride 3 ml 05/20/21 00:00 0.9 % Sodium Chloride Flush 3 Ml Syringe IVFLUSH QSHIFT [facility] Home Medications Medication Instructions Recorded Confirmed Last Taken Type fluoxetine 20 mg capsule 60 mg PO DAILY 05/14/21 05/19/21 05/18/21 History prazosin 2 mg capsule 2 mg PO BEDTIME 05/14/21 05/19/21 05/18/21 History risperidone 4 mg tablet 4 mg PO BEDTIME 05/14/21 05/19/21 05/18/21 History Physical Exam Vital Signs: Vital Signs: Last Vital Signs Temp 98.7 F 05/19/21 17:54 Pulse 96 05/19/21 17:54 Resp 16 05/19/21 17:54 BP 135/84 05/19/21 17:54 Pulse Ox 99 05/19/21 17:54 Body Mass Index 34.1 GENERAL APPEARANCE: in no acute distress, pleasant. Forehead wound from fall. NECK: no carotid bruit, no jugular venous distention. SKIN: no suspicious lesions, warm and dry. HEART: no murmurs, regular rate and rhythm. LUNGS: clear to auscultation bilaterally. ABDOMEN: soft, nontender. EXTREMITIES: no edema. PERIPHERAL PULSES: equal. NEUROLOGIC: No gross deficits, AAO X 3 Results Labs and Meds Result diagrams: 05/19/21 11:37 05/19/21 11:37 Lab results: Laboratory Results - last 24 hr 05/19/21 05/19/21 05/19/21 11:12 11:37 11:37 WBC 10.8 RBC 5.21 Hgb 14.8 Hct 46.1 MCV 88.5 MCH 28.4 MCHC 32.1 RDW 14.5 Plt Count 303 MPV 10.0 Immature Gran % (Auto) 0.7 H Neut % (Auto) 73.7 H Lymph % (Auto) 18.7 L [place] % (Auto) 5.8 Eos % (Auto) 0.7 Baso % (Auto) 0.4 Lymph # (Auto) 2.0 [place] # (Auto) 0.6 Eos # (Auto) 0.1 Baso # (Auto) 0.0 Abs Immat Gran (auto) 0.07 H Absolute Neuts (auto) 7.9 Absolute Nucleated RBC 0.000 Nucleated RBC % (auto) 0.0 PT INR APTT Sodium 140 Potassium 4.1 Chloride 103 Carbon Dioxide 27 Anion Gap 14 BUN 10 Creatinine 0.89 Estim Creat Clear Calc 105.2 Estimated GFR > 60 Random Glucose 114 D Calcium 9.5 Magnesium 2.1 Total Bilirubin 0.5 Direct Bilirubin 0.2 AST 17 ALT 30 Alkaline Phosphatase 135 H Total Creatine Kinase Troponin I High Sens Total Protein 8.0 Albumin 4.6 Urine Color RENARD Urine Appearance CLOUDY Urine pH 6.0 Ur Specific [place] >= 1.030 H Urine Protein 1+ H Urine Glucose (UA) NEG Urine Ketones NEG Urine Blood 3+ H Urine Nitrite NEG Ur Leukocyte Esterase NEG Urine RBC TNTC H Urine WBC 0-2 Ur Squamous Epith Cells 1+ Urine Bacteria TRACE Urine Mucus 2+ COVID-19 ([facility]) COVID-19 Clin Com 05/19/21 05/19/21 05/19/21 11:37 11:37 11:37 WBC RBC Hgb Hct MCV MCH MCHC RDW Plt Count MPV Immature Gran % (Auto) Neut % (Auto) Lymph % (Auto) [place] % (Auto) Eos % (Auto) Baso % (Auto) Lymph # (Auto) [place] # (Auto) Eos # (Auto) Baso # (Auto) Abs Immat Gran (auto) Absolute Neuts (auto) Absolute Nucleated RBC Nucleated RBC % (auto) PT 12.3 INR 1.1 APTT 39.0 H Sodium Potassium Chloride Carbon Dioxide Anion Gap BUN Creatinine Estim Creat Clear Calc Estimated GFR Random Glucose Calcium Magnesium Total Bilirubin Direct Bilirubin AST ALT Alkaline Phosphatase Total Creatine Kinase 85 D Troponin I High Sens < 3.5 Total Protein Albumin Urine Color Urine Appearance Urine pH Ur Specific [place] Urine Protein Urine Glucose (UA) Urine Ketones Urine Blood Urine Nitrite Ur Leukocyte Esterase Urine RBC Urine WBC Ur Squamous Epith Cells Urine Bacteria Urine Mucus COVID-19 ([facility]) COVID-19 Clin Com 05/19/21 11:37 WBC RBC Hgb Hct MCV MCH MCHC RDW Plt Count MPV Immature Gran % (Auto) Neut % (Auto) Lymph % (Auto) [place] % (Auto) Eos % (Auto) Baso % (Auto) Lymph # (Auto) [place] # (Auto) Eos # (Auto) Baso # (Auto) Abs Immat Gran (auto) Absolute Neuts (auto) Absolute Nucleated RBC Nucleated RBC % (auto) PT INR APTT Sodium Potassium Chloride Carbon Dioxide Anion Gap BUN Creatinine Estim Creat Clear Calc Estimated GFR Random Glucose Calcium Magnesium Total Bilirubin Direct Bilirubin AST ALT Alkaline Phosphatase Total Creatine Kinase Troponin I High Sens Total Protein Albumin Urine Color Urine Appearance Urine pH Ur Specific [place] Urine Protein Urine Glucose (UA) Urine Ketones Urine Blood Urine Nitrite Ur Leukocyte Esterase Urine RBC Urine WBC Ur Squamous Epith Cells Urine Bacteria Urine Mucus COVID-19 ([facility]) Negative COVID-19 Clin Com See Note Imaging Radiologist's impression: Impressions Chest CTA 05/19/21 11:34 IMPRESSION: 1. No pulmonary embolism. 2. No thoracic aortic dissection or aneurysmal enlargement. 3. Lungs clear. No airspace consolidation or effusion. VTE: negative Cervical Spine CT 05/19/21 11:35 IMPRESSION: No acute cervical spine fracture. Cervical spondylosis as described. Head CT 05/19/21 11:35 IMPRESSION: 1. No acute intracranial abnormality when compared with prior studies. 2. If patient has recurrent balance issues, further evaluation may be performed with MRI. Assessment and Plan (1) Syncope: Qualifiers: Syncope type: unspecified Qualified Code(s): R55 - Syncope and collapse Status: Acute (2) Chest pain: Qualifiers: Chest pain type: unspecified Qualified Code(s): R07.9 - Chest pain, unspecified Status: Acute 50-year-old gentleman who is presenting for sudden-onset chest pressure radiating to left arm followed by syncope. It appears he fell forward hitting his head. EKG is unremarkable. His cardiac enzymes are also normal. His drug screen is normal. Story is very concerning for cardiogenic source of symptoms. Given chest discomfort I cannot rule out plaque rupture with arrhythmia as a cause for his presentation. I have discussed with him in detail about transferring to [facility] and performing a diagnostic angiogram. I will start him on heparin drip and transfer to [facility] for potential diagnostic angiogram tomorrow morning. Thank you for allowing me to participate in the care of your patient. Please feel free to contact me if you have any questions. Procedures Date of Service Date of Service: 05/19/21
[2021-05-19 18:42] LABS: INTERNATIONAL NORM RATIO 1.1 (0.9-1.1); Prothrombin Time 12.7 SEC (9.9-13.0)
[2021-05-19 18:45] LABS: PTT Heparin Drip 40.4 SEC (53-77.9)
--- NOTE | 2021-05-19 19:00 | PC.NURSE ---
HEPARIN DRIP STARTED AT THIS TIME. PT DENIES S/S OF BLEEDING. PT IN NAD. WILL CONTINUE TO MONITOR PT.
[2021-05-19] MEDS: Heparin Sodium,Porcine 5,000 UNIT/ML VIAL 4000 UNIT IVPUSH (19:10)
[2021-05-19] MEDS: Heparin Sodium,Porcine/1/2NS 25,000 UNIT/250 ML IV.SOLN 9.3 UNIT IVCONT (19:26)
--- NOTE | 2021-05-19 20:36 | PC.NURSE ---
PT'S DAUGHTER CALLED FOR UPDATE ON PT AND WAS TOLD SHE COULD CALL ANYTIME THROUGHOUT THE NIGHT. DAUGHTER STATED SHE FELT REASSURED.
--- NOTE | 2021-05-19 21:27 | PC.NURSE ---
pt in NAD. Pt is going to [facility] at [facility]. Pt aware.
--- NOTE | 2021-05-19 22:22 | PC.NURSE ---
REPORT GIVEN TO CHICO SAHNI AT [facility]. EMS HERE FOR TRANSPORT TO [facility]. PT LEFT ED IN NAD.
--- NOTE | 2021-05-20 09:37 | MHC.CM.PN ---
Patient transferred to [facility] before he could be seen by case management.
== END 2021-05-19 22:31 | disposition short-term general hospital (02) ==
LOC: HO.ED 15:59 → HO.EDOVER 17:12
PROVIDERS: Admitting Provider Internal Medicine; Emergency Provider Emergency Medicine; PCP Internal Medicine; Visit Provider Internal Medicine
DX: R55 Syncope and collapse (principal); R07.9 Chest pain, unspecified; S00.83XA Contusion of other part of head, initial encounter; W18.30XA Fall on same level, unspecified, initial encounter; Y93.9 Activity, unspecified; Y99.8 Other external cause status; Y92.9 Unspecified place or not applicable; R31.9 Hematuria, unspecified; E78.00 Pure hypercholesterolemia, unspecified; Z20.822 Contact with and (suspected) exposure to COVID-19; Z88.8 Allergy status to other drugs, medicaments and biological substances; Z79.899 Other long term (current) drug therapy
CPT/HCPCS: 36415; 70450; 71275; 72125; 80048; 80076; 81001; 82550; 83735; 84484; 85025; 85610; 85730; 87635; 96361; 96365; 96366; 99218; 99285; Q9967

== ENCOUNTER 2021-08-04 17:58 | Emergency (ER) | payer OTHER, SELFPAY ==
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
[2021-08-04 18:24] VITALS: BP 156/84; PULSE 100; RESP 18; TEMP 36.1; O2SAT 98; BMI 34.1
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
[2021-08-04] MEDS: Ibuprofen 600 MG TABLET PO (20:12)
== END 2021-08-04 20:58 | disposition home or self-care (01) ==
PROVIDERS: Emergency Provider Emergency Medicine; PCP Internal Medicine
DX: M54.50 Low back pain, unspecified (principal); Z79.899 Other long term (current) drug therapy
CPT/HCPCS: 72100; 99283; 99284

== ENCOUNTER 2021-12-04 14:25 | Emergency (ER) | payer OTHER, SELFPAY ==
--- NOTE | ~2021-12-04 | US_ITS ---
EXAMINATION: US SCROTUM CLINICAL INFORMATION: Testicular pain with question of torsion. COMPARISON: None TECHNIQUE: A sonogram of the scrotum was performed assessing duarte-scale appearance and color Doppler flow. Spectral Doppler analysis of the arterial and venous flow were performed in the testes bilaterally. FINDINGS: RIGHT: Right testicle measures 4.2 x 3.2 x 2.6 cm, volume 13.5 mL. No focal testicular parenchymal lesions are visualized. Spectral Doppler analysis of the arterial and venous flow is normal in the right testis. Right epididymal head is normal in size. A 2 mm cyst is noted in the head of the right epididymis. No right hydrocele or varicocele is seen. Right epididymal Doppler flow is normal. LEFT: Left testicle measures 3.8 x 2.6 x 2.7 cm, volume 13.6 mL. No focal testicular parenchymal lesions are visualized. Spectral Doppler analysis of the arterial and venous flow is normal in the left testis. Left epididymal head is normal in size. There is a small left-sided hydrocele present with a few septations inferiorly. No left varicocele is seen. Left epididymal Doppler flow is normal. US/US scrotum doppler IMPRESSION: 1. Essentially negative exam without evidence of testicular torsion. 2. Incidental note made of a tiny 2 mm cyst in the epididymis on the right and a small left mildly complicated hydrocele with some septations.
--- NOTE | ~2021-12-04 | CT_ITS ---
EXAMINATION: CT ABDOMEN AND PELVIS WITHOUT CONTRAST CLINICAL INFORMATION: Back pain radiating to scrotum with question of kidney stones COMPARISON: CT abdomen pelvis 05/11/2021 TECHNIQUE: Multidetector volumetric imaging was performed from the superior aspect of the liver through the pubic symphysis. Sagittal and coronal reformatted images were obtained on the technologist's workstation. This CT examination was performed using dose optimization techniques as appropriate, variously including the following: *Automated exposure control *Adjustment of mA and/or kV according to patient size (this includes techniques or standardized protocols for targeted exams where dose is matched to indication/reason for exam; i.e. extremities or head) *Use of iterative reconstruction technique DLP: 716 mGy-cm FINDINGS: LUNG BASES: The visualized lung bases are unremarkable. LIVER, GALLBLADDER, AND BILIARY TREE: The liver is enlarged measuring over 18 cm in greatest length. There is decreased attenuation consistent with hepatic steatosis with areas of focal fatty sparing around the bladder fossa. No focal hepatic lesion or biliary ductal dilatation is present. The gallbladder is unremarkable with no evidence of radiopaque gallstones, gallbladder wall thickening, or obvious pericholecystic inflammatory changes. PANCREAS: Unremarkable. SPLEEN: Unremarkable aside from the presence of a calcified granuloma.. ADRENAL GLANDS: Unremarkable. KIDNEYS AND URETERS: The kidneys are normal in size, shape, and attenuation. Again seen is a single 2 mm punctate nonobstructing stone in the left kidney. The previously seen 1.5 mm stone in the right kidney (prior 4:352) is not identified on this current exam. No stone is seen overlying the course of the ureter or within the bladder. No hydronephrosis or hydroureter seen. No perinephric stranding. BLADDER: Unremarkable. GASTROINTESTINAL TRACT: The small and large bowel are unremarkable. The appendix is unremarkable. ABDOMINAL WALL: No significant hernia is appreciated. LYMPH NODES: Normal. VASCULAR: Unremarkable. PELVIC VISCERA: Unremarkable. OSSEOUS STRUCTURES: Unremarkable aside from degenerative changes in the lower thoracic spine with minimal changes in the lumbar spine.. CT/CT abdomen pelvis wo con IMPRESSION: Nonobstructing 2 mm calculus left kidney. Previously seen right renal calculus is no longer present. Perhaps this patient passed a stone recently causing symptoms? Fleischner guidelines were followed.
[2021-12-04 14:26] VITALS: BP 146/92; PULSE 78; RESP 20; TEMP 36.7; O2SAT 99; BMI 33.3
--- NOTE | 2021-12-04 15:00 | ED_ITS ---
HPI - Back Pain/Injury General Chief Complaint: Back Pain/Injury Stated Complaint: lower back and testicle pain Time Seen by Provider: 12/04/21 14:30 Source: patient Mode of arrival: ambulatory Limitations: no limitations History of Present Illness HPI Narrative: 51-year-old male came in for evaluation of right sign back pain and scrotal pain. Pain started about 3 days ago starting in right flank area, radiating down to the right side of the back going down to bilateral scrotal pain, pain is constant for 3 days, described as dull aching severe 10/10, no nausea or vomiting or fever or chills, no aggravating factor, no relieving factor. No dysuria, no blood in the urine, no urinary frequency, no penile discharge, sexually active with 1 partner without risk for STD. No history of similar pain in the past, no history of abdominal surgery. Related Data Home Medications Medication Instructions Recorded Confirmed fluoxetine 20 mg capsule 60 mg PO DAILY 05/14/21 05/19/21 prazosin 2 mg capsule 2 mg PO BEDTIME 05/14/21 05/19/21 risperidone 4 mg tablet 4 mg PO BEDTIME 05/14/21 05/19/21 Previous Rx's Medication Instructions Recorded aspirin 81 mg tablet,delayed 81 mg PO DAILY #30 tab 05/19/21 release heparin (porcine) 25,000 unit/250 25,000 unit (250 mL) CONTINUOUS IV 05/19/21 mL in 0.45 % sodium chloride IV INFUSION .Q0M #250 ml soln cyclobenzaprine 10 mg tablet 10 mg PO BEDTIME PRN #14 tab 12/04/21 oxycodone 5 mg tablet 5 mg PO Q8H PRN #10 tab 12/04/21 oxycodone 5 mg tablet 5 mg PO Q8H PRN #10 tab 12/04/21 Allergies Allergy/AdvReac Type Severity Reaction Status Date / Time lisinopril [LISINOPRIL] Allergy Severe ANGIOEDEMA Verified 08/04/21 18:27 Review of Systems Review of Systems: All other systems are reviewed and are negative Constitutional: Reports as per HPI and Reports no additional constitutional complaints Eyes: Reports as per HPI and Reports no additional eye complaints Reports system reviewed and no additional complaints, except as documented Cardiovascular: Reports as per HPI and Reports no additional cardiovascular complaints Respiratory: Reports as per HPI and Reports no additional respiratory complaints Gastrointestinal: Reports as per HPI and Reports no additional gastrointestinal complaints Genitourinary: Reports no additional female genitourinary complaints Musculoskeletal: Reports no additional musculoskeletal complaints Skin/Breast: Reports system reviewed and no additional complaints, except as docu Psychiatric: Reports no additional psychiatric complaints Endocrine: Reports no additional endocrine complaints Hematologic/Lymphatic: Reports no additional hematologic/lymphatic complaints Allergic/Immunologic: Reports no additional allergic/immunologic complaints Reports system reviewed and no additional complaints, except as documented and Reports Abnormal speech present [facility] Past Medical History Medical History Arthritis Hematuria High cholesterol Loin pain Slipped intervertebral disc Syncope Social History Social History Alcohol intake: never Patient Tobacco Use Status: Never used Tobacco Advance Directives: No Advance Directives Information Provided: Yes Advance Directives Date on File: 05/14/21 service: No Current occupational status: unemployed Physical Exam Vital Signs: Vital Signs: Last Vital Signs Temp 98.0 F 12/04/21 14:26 Pulse 78 12/04/21 14:26 Resp 20 12/04/21 14:26 BP 146/92 H 12/04/21 14:26 Pulse Ox 99 12/04/21 14:26 BMI result Body Mass Index 33.3 Vital signs have been reviewed as appeared to be correct. Blood pressure nor mal. Heart rate normal. Respiration rate normal. Temperature normal. Oxygen saturation normal. Appearance: Alert. Oriented X3. No acute distress. Head: Normal external exam. Normocephalic. Atraumatic. No Jimenez signs noted. No raccoon eyes noted Eyes: PERRLA. EOMI. Conjunctiva and sclera normal. Eyelids normal. ENT: TM's Normal. Pharynx normal. Uvula midline. Moist mucous membranes. No trismus noted. No drooling noted. No muffled voice noted. Neck: Normal inspection. Neck supple. FROM. No adenopathy. Thyroid Normal. No meningeal signs. No neck mass noted. CVS: Normal heart rate and rhythm. Heart sound normal. No murmurs noted. Pulses normal throughout. Respiratory: No respiratory distress. Painless inspiration. Breath sounds normal. No wheezes/rales/rhonchi noted. Chest nontender. No accessory muscle usage noted or decreased air movement noted. Abdomen: Soft and nontender. Bowel sounds normal in all 4 quadrants. No distention noted. No organomegaly noted. No visible injury noted. Back: Right CVA tenderness. Full range of motion noted. exam: Bilateral scrotal sensitive to touch, with no tenderness or swelling, cremasteric reflexes intact bilaterally. Skin: Skin warm and dry. Normal skin color. Normal skin turgor. No rashes/lesions/lacerations noted. Extremities: No lower extremity edema. Extremities exhibit normal range of m otion. Extremities nontender. Neuro: Oriented X 3. Cranial nerve exam: II-XII are grossly intact No motor deficit. No sensory deficit. Reflexes normal. Course Course Course Narrative: Assessment and plan. Right flank pain radiating down to the right testicle, CT of the abdomen showing no obstructing kidney stones. Labs are suggesting a mild pancreatitis but patient has no symptoms of abdominal pain or nausea or vomiting. Ultrasound is showing no acute testicular torsion but incidental 2 mm cyst in the epidermis with hydrocele. Patient is more comfortable now, no acute finding, will discharge the patient with outpatient consult. And pain medication. MDM - Back Pain/Injury Medical Records Attestation: I reviewed the patient's medical records. Lab Data Attestation: I reviewed the patient's lab results. Result diagrams: 12/04/21 15:45 12/04/21 15:45 Labs: Lab Results 12/04/21 12/04/21 12/04/21 Range/Units 15:45 15:45 15:45 WBC 11.1 H (4.8-10.8) X10*3/uL RBC 5.12 (4.60-5.80) X10*6/uL Hgb 14.4 (14.0-18.0) g/dl Hct 45.1 (42.0-52.0) % MCV 88.1 (80.0-98.0) fL MCH 28.1 (27.0-33.0) pg MCHC 31.9 (31.0-36.0) g/dl RDW 15.5 (11.0-16.0) % Plt Count 308 (160-400) X10*3/uL MPV 10.4 (9.4-12.4) fL Immature Gran % (Auto) 0.5 H (0.0-0.4) % Neut % (Auto) 69.4 (45-73) % Lymph % (Auto) 22.6 (20-40) % Gillespie % (Auto) 5.3 (2-11) % Eos % (Auto) 2.0 (0-4) % Baso % (Auto) 0.2 (0-2) % Lymph # (Auto) 2.5 (1.2-4.9) X10*3/uL Gillespie # (Auto) 0.6 (0.1-1.2) X10*3/uL Eos # (Auto) 0.2 (0.0-0.4) X10*3/uL Baso # (Auto) 0.0 (0.0-0.2) X10*3/uL Abs Immat Gran (auto) 0.06 H (0.00-0.03) X10*3/uL Absolute Neuts (auto) 7.7 (2.0-8.3) x10*3/uL Absolute Nucleated RBC 0.000 (0.0-0.012) X10*3/uL Nucleated RBC % (auto) 0.0 (0.0-0.2) /100WBC Sodium 138 (135-145) mmol/L Potassium 4.5 (3.3-5.1) mmol/L Chloride 102 (96-108) mmol/L Carbon Dioxide 29 (22-29) mmol/L Anion Gap 12 (12-20) BUN 12 (9-16) mg/dL Creatinine 0.86 (0.5-1.4) mg/dL Estim Creat Clear Calc 106.3 Estimated GFR > 60 Random Glucose 89 (60-115) mg/dL Calcium 9.4 (8.4-10.2) mg/dL Total Bilirubin 0.5 (0.0-1.0) mg/dL Direct Bilirubin 0.2 (0.0-0.5) mg/dL AST 18 (5-37) U/L ALT 25 (0-40) U/L Alkaline Phosphatase 118 H (39-117) U/L Total Protein 7.6 (6.5-8.0) g/dL Albumin 4.3 (3.5-5.0) g/dL Lipase 137 H (8-78) U/L Urine Color YELLOW Urine Appearance CLEAR Urine pH 7.0 (5.0-8.0) Ur Specific [place] 1.010 (1.005-1.025) Urine Protein NEG (NEG-TRACE) MG/DL Urine Glucose (UA) NEG (NEG) MG/DL Urine Ketones NEG (NEG) MG/DL Urine Blood 1+ H (NEG) Urine Nitrite NEG (NEG) Ur Leukocyte Esterase NEG (NEG) Urine RBC 15-29 H (0) /HPF Urine WBC 0-2 (0-4) /HPF Ur Squamous Epith Cells 1+ /LPF Urine Bacteria NONE /LPF Urine Mucus TRACE /LPF Imaging Data Scrotal ultrasound: Attestation: I personally reviewed and interpreted this imaging study as follows: Radiologist's impression: .? Essentially negative exam without evidence of testicular torsion. 2.? Incidental note made of a tiny 2 mm cyst in the epididymis on the right and a small left mildly complicated hydrocele with some septations. CT scan - abdomen: Attestation: I personally reviewed and interpreted this imaging study as lisa raza: Radiologist's impression: Nonobstructing 2 mm calculus left kidney. Previously seen right renal calculus is no longer present.? Perhaps this patient passed a stone recently causing symptoms? ? Discharge Plan Discharge Clinical Impression: Back pain, Hydrocele Patient Disposition: Home, Self-Care Instructions: Hydrocele (ED), Back Pain (ED) Prescriptions: New cyclobenzaprine 10 mg tablet 10 mg PO BEDTIME PRN (Reason: muscle spasm) Qty: 14 0RF oxycodone 5 mg tablet 5 mg PO Q8H PRN (Reason: pain) Qty: 10 0RF oxycodone 5 mg tablet 5 mg PO Q8H PRN (Reason: pain) Qty: 10 0RF No Action risperidone 4 mg tablet 4 mg PO BEDTIME 0RF fluoxetine 20 mg capsule 60 mg PO DAILY 0RF prazosin 2 mg capsule 2 mg PO BEDTIME 0RF heparin(porcine) in 0.45% NaCl 25,000 unit/250 mL Parenteral Solution 25,000 unit continuous IV infusion .Q0M Qty: 250 0RF Rx Instructions: Infuse per protocol aspirin 81 mg tablet,delayed release (DR/EC) 81 mg PO DAILY Qty: 30 0RF Referrals: Melchor Mcclellan MD [Physician] - 2 days
--- NOTE | 2021-12-04 15:00 | PC.NURSE ---
ultrasound at bedside
[2021-12-04 15:51] LABS: MANUAL DIFF FLAG NO
[2021-12-04 15:52] LABS: Basophils Percent Auto 0.2 % (0-2); Eosinophils Absolute Auto 0.2 X10*3/uL (0.0-0.4); Hematocrit 45.1 % (42.0-52.0); Hemoglobin 14.4 g/dl (14.0-18.0); Imm Gran Abs Auto 0.06 X10*3/uL (0.00-0.03); Imm Gran Pct Auto 0.5 % (0.0-0.4); Lymphocytes Absolute Auto 2.5 X10*3/uL (1.2-4.9); Lymphocytes Percent Auto 22.6 % (20-40); Mean Corpuscular HGB Conc 31.9 g/dl (31.0-36.0); Mean Corpuscular Hemoglobin 28.1 pg (27.0-33.0); Mean Corpuscular Volume 88.1 fL (80.0-98.0); Mean Platelet Volume 10.4 fL (9.4-12.4); Monocytes Absolute Auto 0.6 X10*3/uL (0.1-1.2); Monocytes Percent Auto 5.3 % (2-11); Neutrophils Absolute Auto 7.7 x10*3/uL (2.0-8.3); Neutrophils Percent Auto 69.4 % (45-73); Platelet Count 308 X10*3/uL (160-400); Red Blood Count 5.12 X10*6/uL (4.60-5.80); Red Cell Distribution Width 15.5 % (11.0-16.0); White Blood Count 11.1 X10*3/uL (4.8-10.8)
[2021-12-04 15:53] LABS: Appearance Urine CLEAR; Color Urine YELLOW; Glucose Urine UA NEG (NEG); Leukocyte Esterase Urine NEG (NEG); Nitrite Urine NEG (NEG); UACC Culture Trigger NO; Urine Blood 1+ (NEG); Urine Ketones NEG (NEG); Urine Protein NEG (NEG-TRACE)
[2021-12-04] MEDS: Ketorolac Tromethamine 30 MG/ML VIAL IVPUSH (15:57)
[2021-12-04] MEDS: Morphine Sulfate 2 MG/ML CARTRIDGE 1 MG IVPUSH (15:57)
[2021-12-04] MEDS: 0.9 % Sodium Chloride 1,000 ML 999 ML IV (15:58)
[2021-12-04 16:08] LABS: Alanine Aminotransferase 25 U/L (0-40); Albumin Level 4.3 g/dL (3.5-5.0); Alkaline Phosphatase 118 U/L (39-117); Anion Gap 12 (12-20); Aspartate Amino Transferase 18 U/L (5-37); Bilirubin Direct 0.2 mg/dL (0.0-0.5); Bilirubin Total 0.5 mg/dL (0.0-1.0); Blood Urea Nitrogen 12 mg/dL (9-16); Calcium 9.4 mg/dL (8.4-10.2); Carbon Dioxide 29 mmol/L (22-29); Chloride 102 mmol/L (96-108); Creatinine Clr Calc Pharmacy 106.3; Estimated Glomerular Filt Rate > 60; Glucose Random 89 mg/dL (60-115); Lipase 137 U/L (8-78); Potassium 4.5 mmol/L (3.3-5.1); Sodium 138 mmol/L (135-145); Total Protein 7.6 g/dL (6.5-8.0)
[2021-12-04 16:23] LABS: Squamous Epithelial Cell Urine 1+ /LPF; WBC Urine 0-2 /HPF (0-4)
[2021-12-04 16:24] LABS: Mucus Urine TRACE /LPF
[2021-12-05 01:04] LABS: CT PCR NOT DETECTED (Not Detect.); NG PCR NOT DETECTED (Not Detect.)
== END 2021-12-04 17:01 | disposition home or self-care (01) ==
PROVIDERS: Physician Assistant Medical; Emergency Provider Emergency Medicine; PCP Internal Medicine
DX: M54.50 Low back pain, unspecified (principal); N43.3 Hydrocele, unspecified; N50.82 Scrotal pain; Z79.899 Other long term (current) drug therapy
CPT/HCPCS: 36415; 74176; 80048; 80076; 81001; 83690; 85025; 87491; 87591; 93975; 96374; 96376; 99283; 99284; J1885; J2270

== ENCOUNTER 2022-01-06 01:54 | Emergency (ER) | payer OTHER, SELFPAY ==
--- NOTE | ~2022-01-06 | CT_ITS ---
EXAMINATION: CT ABDOMEN AND PELVIS WITHOUT CONTRAST CLINICAL INFORMATION: Left flank pain. COMPARISON: CT dated 12/04/2021 TECHNIQUE: Multidetector volumetric imaging was performed from the superior aspect of the liver through the pubic symphysis. Sagittal and coronal reformatted images were obtained on the technologist's workstation. This CT examination was performed using dose optimization techniques as appropriate, variously including the following: *Automated exposure control *Adjustment of mA and/or kV according to patient size (this includes techniques or standardized protocols for targeted exams where dose is matched to indication/reason for exam; i.e. extremities or head) *Use of iterative reconstruction technique DLP: 699 mGy-cm FINDINGS: LUNG BASES: The visualized lung bases are unremarkable. LIVER, GALLBLADDER, AND BILIARY TREE: Relative hypoattenuation of the hepatic parenchyma is consistent with steatosis. There is focal fatty sparing at the gallbladder fossa. No focal lesions. Liver is normal in size and contour. The gallbladder is unremarkable with no evidence of radiopaque gallstones, gallbladder wall thickening, or obvious pericholecystic inflammatory changes. PANCREAS: Unremarkable. SPLEEN: Unremarkable aside from a punctate calcified granuloma. ADRENAL GLANDS: Unremarkable. KIDNEYS AND URETERS: Again seen is a single punctate 2 mm calculus within a lower pole calyx of the left kidney. No additional renal calculi. Kidneys are normal in size with normal cortical thickness and contour. No perinephric stranding or focal parenchymal lesions. No hydronephrosis or hydroureter. BLADDER: Decompressed. GASTROINTESTINAL TRACT: The small and large bowel are unremarkable. The appendix is unremarkable. ABDOMINAL WALL: No significant hernia is appreciated. Injection related nodules in the subcutaneous fat. LYMPH NODES: Normal. VASCULAR: Unremarkable. PELVIC VISCERA: Unremarkable. OSSEOUS STRUCTURES: Mild multilevel degenerative disc disease and marked facet arthropathy in the lower lumbar spine. Short pedicles and the facet arthropathy contribute to multilevel central canal and neural foraminal encroachment. CT/CT abdomen pelvis wo con IMPRESSION: 1. A punctate 2 mm nonobstructing left renal calculus. No evidence of obstructive uropathy. No acute intra-abdominal or intrapelvic abnormalities. 2. Hepatic steatosis.
[2022-01-06 02:05] VITALS: BP 126/87; PULSE 83; RESP 18; TEMP 37; O2SAT 98; BMI 34.1
[2022-01-06 04:08] VITALS: BP 115/67; PULSE 92; RESP 16; O2SAT 98
[2022-01-06 04:15] LABS: MANUAL DIFF FLAG NO
[2022-01-06 04:20] LABS: Basophils Percent Auto 0.1 % (0-2); Eosinophils Absolute Auto 0.2 X10*3/uL (0.0-0.4); Eosinophils Percent Auto 1.6 % (0-4); Hematocrit 43.2 % (42.0-52.0); Hemoglobin 13.7 g/dl (14.0-18.0); Imm Gran Abs Auto 0.07 X10*3/uL (0.00-0.03); Imm Gran Pct Auto 0.5 % (0.0-0.4); Lymphocytes Absolute Auto 2.8 X10*3/uL (1.2-4.9); Lymphocytes Percent Auto 19.1 % (20-40); Mean Corpuscular HGB Conc 31.7 g/dl (31.0-36.0); Mean Corpuscular Volume 88.3 fL (80.0-98.0); Mean Platelet Volume 10.3 fL (9.4-12.4); Monocytes Absolute Auto 0.8 X10*3/uL (0.1-1.2); Monocytes Percent Auto 5.3 % (2-11); Neutrophils Absolute Auto 10.6 x10*3/uL (2.0-8.3); Neutrophils Percent Auto 73.4 % (45-73); Platelet Count 377 X10*3/uL (160-400); Red Blood Count 4.89 X10*6/uL (4.60-5.80); Red Cell Distribution Width 15.6 % (11.0-16.0); White Blood Count 14.4 X10*3/uL (4.8-10.8)
--- NOTE | 2022-01-06 04:25 | ED.ABDPAIN ---
HPI - Abdominal Pain General Chief Complaint: Abdominal Pain Stated Complaint: Abd pain/Back pain Time Seen by Provider: 01/06/22 04:19 Source: patient Mode of arrival: ambulatory Limitations: no limitations History of Present Illness HPI narrative: Patient comes to the emergency room complaining of left-sided flank pain that started 3 days ago. Patient intermittent, radiating from the back to the left testicle. Patient was seen here on December 06 of this year for the same reason. CT scan showed a possible stone that may have already passed, testicular ultrasound was negative other than a small cyst. Patient denies dysuria, no fever chills. Related Data Home Medications Medication Instructions Recorded Confirmed fluoxetine 20 mg capsule 60 mg PO DAILY 05/14/21 05/19/21 prazosin 2 mg capsule 2 mg PO BEDTIME 05/14/21 05/19/21 risperidone 4 mg tablet 4 mg PO BEDTIME 05/14/21 05/19/21 Previous Rx's Medication Instructions Recorded aspirin 81 mg tablet,delayed 81 mg PO DAILY #30 tab 05/19/21 release heparin (porcine) 25,000 unit/250 25,000 unit (250 mL) CONTINUOUS IV 05/19/21 mL in 0.45 % sodium chloride IV INFUSION .Q0M #250 ml soln cyclobenzaprine 10 mg tablet 10 mg PO BEDTIME PRN #14 tab 12/04/21 oxycodone 5 mg tablet 5 mg PO Q8H PRN #10 tab 12/04/21 oxycodone 5 mg tablet 5 mg PO Q8H PRN #10 tab 12/04/21 cyclobenzaprine 10 mg tablet 10 mg PO TID PRN #10 tab 01/06/22 ibuprofen 600 mg tablet 600 mg PO Q6H PRN #14 tab 01/06/22 Allergies Allergy/AdvReac Type Severity Reaction Status Date / Time lisinopril [LISINOPRIL] Allergy Severe ANGIOEDEMA Verified 01/06/22 02:05 Review of Systems Review of Systems Constitutional : No Weight loss, No Fever, No Chills, No Night Sweats, No Fatigue, No Malaise ENT/Mouth : No Hearing loss, No Ear Pain, No Nasal Congestion, No Sinus Pain, No Hoarseness, No sore throat, No Rhinorrhea, No Swallowing Difficulty Eyes: No Eye Pain, No Swelling, No Redness, No Foreign Body, No Discharge, No Vision Changes Cardiovascular : No Chest Pain, No SOB, No Dyspnea on Exertion, No Orthopnea, No Edema, No Palpitations Respiratory : No Cough, No Sputum, No Wheezing, No Smoke Exposure, No Dyspnea Gastrointestinal : No Nausea, No Vomiting, No Diarrhea, No Constipation, No abdominal Pain, No Hematochezia, No Melena Genitourinary : no irregular bleeding, No Dysuria, No Urinary Frequency, No Hematuria, No Urinary Incontinence, No Urgency, complaining of left-sided Flank Pain radiating towards the left testicle No Urinary Flow Changes, No Hesitancy Musculoskeletal : No joint pain, No Myalgias, No Joint Swelling Skin : No Skin Lesions, No rash Neuro : No Weakness, No Numbness, No Paresthesias, No Loss of Consciousness, No Dizziness, No Headache Psych : No Anxiety/Panic, No Depression, No SI/HI/AH/VH, No Social Issues, Heme/Lymph: No Bruising, No Bleeding,No Lymphadenopathy Endocrine : No Polyuria, No Polydipsia, No Temperature Intolerance [facility] Past Medical History Medical History Arthritis Hematuria High cholesterol Loin pain Slipped intervertebral disc Syncope Social History Social History Alcohol intake: never Patient Tobacco Use Status: Never used Tobacco Use of substances other than those prescribed or required for medical reasons: No Advance Directives: No Advance Directives Date on File: 05/14/21 service: No Current occupational status: unemployed Physical Exam ED Vital Signs: Vital Signs - 24 hr 01/06/22 02:05 01/06/22 04:08 Temperature 98.6 F Pulse Rate 83 92 Respiratory Rate 18 16 Blood Pressure 126/87 115/67 Pulse Oximetry 98 98 BMI result Body Mass Index 34.1 Const Other: Appearance: Alert. Oriented X3. No acute distress. Eyes: Pupils equal, round and reactive to light. ENT: Pharynx normal. Neck: Normal inspection. Neck supple. No lymph nodes noted. No crepitus CVS: Normal heart rate and rhythm. Pulses normal. Normal S1 and S2 Respiratory: No respiratory distress. Breath sounds normal. No Wheezing. No rales Abdomen: Soft and nontender. No rigidity. No distention. : Normal male genitalia, no testicular swelling, no discoloration, no discomfort to palpation on the left testicle, none on the right. No palpable hernias Skin: Skin warm and dry. Normal skin color. Normal skin turgor. Extremities: No lower extremity edema. No Lacerations. No Rash Neuro: Oriented X 3. No motor deficit. No sensory deficit. Moving all extremities. No slurred speech. CN 2 through 12 grossly intact Psych: calm, cooperative, normal affect Course Course Course Narrative: CT scan pending. Patient given 1 dose of IV Toradol and Zofran. Discussed the labs and imaging with the patient, no acute findings. It is likely that patient's pain is secondary to musculoskeletal pain. MDM - Abdominal Pain Lab Data Result diagrams: 01/06/22 04:11 01/06/22 04:11 Labs: Lab Results 01/06/22 01/06/22 01/06/22 Range/Units 04:11 04:11 05:26 WBC 14.4 H (4.8-10.8) X10*3/uL RBC 4.89 (4.60-5.80) X10*6/uL Hgb 13.7 L (14.0-18.0) g/dl Hct 43.2 (42.0-52.0) % MCV 88.3 (80.0-98.0) fL MCH 28.0 (27.0-33.0) pg MCHC 31.7 (31.0-36.0) g/dl RDW 15.6 (11.0-16.0) % Plt Count 377 (160-400) X10*3/uL MPV 10.3 (9.4-12.4) fL Immature Gran % (Auto) 0.5 H (0.0-0.4) % Neut % (Auto) 73.4 H (45-73) % Lymph % (Auto) 19.1 L (20-40) % [place] % (Auto) 5.3 (2-11) % Eos % (Auto) 1.6 (0-4) % Baso % (Auto) 0.1 (0-2) % Lymph # (Auto) 2.8 (1.2-4.9) X10*3/uL [place] # (Auto) 0.8 (0.1-1.2) X10*3/uL Eos # (Auto) 0.2 (0.0-0.4) X10*3/uL Baso # (Auto) 0.0 (0.0-0.2) X10*3/uL Abs Immat Gran (auto) 0.07 H (0.00-0.03) X10*3/uL Absolute Neuts (auto) 10.6 H (2.0-8.3) x10*3/uL Absolute Nucleated RBC 0.000 (0.0-0.012) X10*3/uL Nucleated RBC % (auto) 0.0 (0.0-0.2) /100WBC Sodium 139 (135-145) mmol/L Potassium 4.4 (3.3-5.1) mmol/L Chloride 104 (96-108) mmol/L Carbon Dioxide 26 (22-29) mmol/L Anion Gap 13 (12-20) BUN 12 (9-16) mg/dL Creatinine 0.90 (0.5-1.4) mg/dL Estim Creat Clear Calc 102.9 Estimated GFR > 60 Random Glucose 117 H (60-115) mg/dL Calcium 9.2 (8.4-10.2) mg/dL Total Bilirubin 0.8 (0.0-1.0) mg/dL AST 13 (5-37) U/L ALT 17 (0-40) U/L Alkaline Phosphatase 106 (39-117) U/L Total Protein 7.5 (6.5-8.0) g/dL Albumin 4.2 (3.5-5.0) g/dL Lipase 68 (8-78) U/L Urine Color YELLOW Urine Appearance CLEAR Urine pH 7.0 (5.0-8.0) Ur Specific [place] 1.025 (1.005-1.025) Urine Protein TRACE (NEG-TRACE) MG/DL Urine Glucose (UA) NEG (NEG) MG/DL Urine Ketones NEG (NEG) MG/DL Urine Blood TRACE (NEG) Urine Nitrite NEG (NEG) Ur Leukocyte Esterase NEG (NEG) Urine RBC 5-9 H (0) /HPF Urine WBC 1-4 (0-4) /HPF Ur Squamous Epith Cells 2+ /LPF Urine Bacteria 1+ /LPF Urine Mucus 4+ /LPF Imaging Data CT scan - abdomen: Radiologist's impression: FINDINGS: LUNG BASES: The visualized lung bases are unremarkable.? LIVER, GALLBLADDER, AND BILIARY TREE: Relative hypoattenuation of the hepatic parenchyma is consistent with steatosis. There is focal fatty sparing at the gallbladder fossa. No focal lesions. Liver is normal in size and contour. The gallbladder is unremarkable with no evidence of radiopaque gallstones, gallbladder wall thickening, or obvious pericholecystic inflammatory changes.? PANCREAS: Unremarkable.? SPLEEN: Unremarkable aside from a punctate calcified granuloma.? ADRENAL GLANDS: Unremarkable.? KIDNEYS AND URETERS: Again seen is a single punctate 2 mm calculus within a lower pole calyx of the left kidney. No additional renal calculi. Kidneys are normal in size with normal cortical thickness and contour. No perinephric stranding or focal parenchymal lesions. No hydronephrosis or hydroureter.? BLADDER: Decompressed.? GASTROINTESTINAL TRACT: The small and large bowel are unremarkable. The appendix is unremarkable.? ABDOMINAL WALL: No significant hernia is appreciated. Injection related nodules in the subcutaneous fat. LYMPH NODES: Normal. VASCULAR: Unremarkable. PELVIC VISCERA: Unremarkable.? OSSEOUS STRUCTURES: Mild multilevel degenerative disc disease and marked facet arthropathy in the lower lumbar spine. Short pedicles and the facet arthropathy contribute to multilevel central canal and neural foraminal encroachment.? CT/CT abdomen pelvis wo con IMPRESSION: 1. A punctate 2 mm nonobstructing left renal calculus. No evidence of obstructive uropathy. No acute intra-abdominal or intrapelvic abnormalities. 2. Hepatic steatosis. ? Discharge Plan Discharge Clinical Impression: Back pain Patient Disposition: Home, Self-Care Instructions: Flank Pain (ED), Back Pain (ED) Additional Instructions: Please follow-up with your primary care physician tomorrow. If you have any worsening or new symptoms, please return to the emergency room or call 911 Prescriptions: New ibuprofen 600 mg tablet 600 mg PO Q6H PRN (Reason: pain) Qty: 14 0RF cyclobenzaprine 10 mg tablet 10 mg PO TID PRN (Reason: muscle spasm) Qty: 10 0RF No Action risperidone 4 mg tablet 4 mg PO BEDTIME 0RF fluoxetine 20 mg capsule 60 mg PO DAILY 0RF prazosin 2 mg capsule 2 mg PO BEDTIME 0RF heparin(porcine) in 0.45% NaCl 25,000 unit/250 mL Parenteral Solution 25,000 unit continuous IV infusion .Q0M Qty: 250 0RF Rx Instructions: Infuse per protocol aspirin 81 mg tablet,delayed release (DR/EC) 81 mg PO DAILY Qty: 30 0RF cyclobenzaprine 10 mg tablet 10 mg PO BEDTIME PRN (Reason: muscle spasm) Qty: 14 0RF oxycodone 5 mg tablet 5 mg PO Q8H PRN (Reason: pain) Qty: 10 0RF oxycodone 5 mg tablet 5 mg PO Q8H PRN (Reason: pain) Qty: 10 0RF
[2022-01-06 04:33] LABS: Alanine Aminotransferase 17 U/L (0-40); Albumin Level 4.2 g/dL (3.5-5.0); Alkaline Phosphatase 106 U/L (39-117); Anion Gap 13 (12-20); Aspartate Amino Transferase 13 U/L (5-37); Bilirubin Total 0.8 mg/dL (0.0-1.0); Blood Urea Nitrogen 12 mg/dL (9-16); Calcium 9.2 mg/dL (8.4-10.2); Carbon Dioxide 26 mmol/L (22-29); Chloride 104 mmol/L (96-108); Creatinine Clr Calc Pharmacy 102.9; Estimated Glomerular Filt Rate > 60; Glucose Random 117 mg/dL (60-115); Lipase 68 U/L (8-78); Potassium 4.4 mmol/L (3.3-5.1); Sodium 139 mmol/L (135-145); Total Protein 7.5 g/dL (6.5-8.0)
[2022-01-06] MEDS: Ketorolac Tromethamine 30 MG/ML VIAL IVPUSH (04:35)
[2022-01-06] MEDS: ondansetron HCL 4 MG/2 ML VIAL IVPUSH (04:35)
[2022-01-06 05:31] LABS: Appearance Urine CLEAR; Color Urine YELLOW; Glucose Urine UA NEG (NEG); Leukocyte Esterase Urine NEG (NEG); Nitrite Urine NEG (NEG); Specific Gravity - Urine 1.025 (1.005-1.025); UACC Culture Trigger NO; Urine Blood TRACE (NEG); Urine Ketones NEG (NEG); Urine Protein TRACE MG/DL (NEG-TRACE)
[2022-01-06 05:37] LABS: Bacteria Urine 1+ /LPF; Mucus Urine 4+ /LPF; Squamous Epithelial Cell Urine 2+ /LPF
== END 2022-01-06 05:54 | disposition home or self-care (01) ==
PROVIDERS: Emergency Provider Emergency Medicine; PCP Internal Medicine
DX: R10.9 Unspecified abdominal pain (principal)
CPT/HCPCS: 36415; 74176; 80053; 81001; 83690; 85025; 96374; 96375; 99284; 99285; J1885; J2405

== ENCOUNTER 2022-06-20 00:50 | Emergency (ER) | payer OTHER, SELFPAY ==
--- NOTE | ~2022-06-20 | CT_ITS ---
EXAMINATION: CT LUMBAR SPINE WITHOUT CONTRAST CLINICAL INFORMATION: Tingling, burning into bilateral lower extremities COMPARISON: 01/06/2022 TECHNIQUE: No intravenous contrast was utilized. Multidetector helical imaging was performed through the lumbar spine. Coronal and sagittal reformatted images were created. This CT examination was performed using dose optimization techniques as appropriate, variously including the following: *Automated exposure control *Adjustment of mA and/or kV according to patient size (this includes techniques or standardized protocols for targeted exams where dose is matched to indication/reason for exam; i.e. extremities or head) *Use of iterative reconstruction technique DLP; 600 mGy-cm FINDINGS: There is anatomic alignment of the lumbar vertebral bodies and posterior lungs. Vertebral body heights are maintained. Intervertebral disc spaces are relatively well-preserved. There are multilevel endplate osteophytes throughout the lumbar spine. There is facet arthropathy which is most prominent at L4-L5 and L5-S1. There is suggestion of L4-L5 disc protrusion resulting in at least mild central stenosis. Foraminal stenoses in the lower lumbar spine cannot be excluded. Sacroiliac joints are intact. No acute fracture is seen. CT/CT lumbar spine wo IV con IMPRESSION: No acute findings identified. Degree of central and foraminal stenosis may be present in the lower lumbar spine in the setting of degenerative changes, not adequately assessed on CT. Further workup with MRI is advised.
[2022-06-20 01:12] VITALS: BP 127/84; PULSE 78; RESP 16; TEMP 37.1; O2SAT 98; BMI 34.9
--- NOTE | 2022-06-20 03:31 | ED.BACK ---
HPI - Back Pain/Injury General Chief Complaint: Back Pain/Injury Stated Complaint: back pain, burning in legs Time Seen by Provider: 06/20/22 01:11 Source: patient Mode of arrival: ambulatory History of Present Illness HPI Narrative: 51-year-old male who presents with acute on chronic back pain that he states has been associated with burning sensation and pain into bilateral lower extremities as well as into his groin area. He denies numbness but states that the burning sensation does involve the groin area. He denies any difficulty with having a bowel movement but sometimes experiences difficulty with urination and otherwise denies any fever, chills, IVDA. Patient is currently under the care of a physician for his back pain and is on Percocet. He denies any recent traumatic injury, weakness to either lower extremity. Related Data Home Medications Medication Instructions Recorded Confirmed fluoxetine 20 mg capsule 60 mg PO DAILY 05/14/21 05/19/21 prazosin 2 mg capsule 2 mg PO BEDTIME 05/14/21 05/19/21 risperidone 4 mg tablet 4 mg PO BEDTIME 05/14/21 05/19/21 Previous Rx's Medication Instructions Recorded aspirin 81 mg tablet,delayed 81 mg PO DAILY #30 tabs 05/19/21 release heparin (porcine) 25,000 unit/250 25,000 unit (250 mL) continuous IV 05/19/21 mL in 0.45 % sodium chloride IV infusion .Q0M #250 mL soln cyclobenzaprine 10 mg tablet 10 mg PO BEDTIME PRN muscle spasm 12/04/21 #14 tabs oxycodone 5 mg tablet 5 mg PO Q8H PRN pain #10 tabs 12/04/21 oxycodone 5 mg tablet 5 mg PO Q8H PRN pain #10 tabs 12/04/21 cyclobenzaprine 10 mg tablet 10 mg PO TID PRN muscle spasm #10 01/06/22 tabs ibuprofen 600 mg tablet 600 mg PO Q6H PRN pain #14 tabs 01/06/22 cyclobenzaprine 5 mg tablet 5 mg PO BEDTIME PRN muscle spasm 06/20/22 #4 tabs ketorolac 10 mg tablet 10 mg PO Q6H PRN pain 5 days #20 06/20/22 tabs Allergies Allergy/AdvReac Type Severity Reaction Status Date / Time lisinopril [LISINOPRIL] Allergy Severe ANGIOEDEMA Verified 01/06/22 02:05 Review of Systems Review of Systems: Pertinent positives and negatives as stated in HPI 10 point review of systems is otherwise negative. [facility] [place] Past Medical History Source: nursing notes reviewed Medical History Arthritis Hematuria High cholesterol Loin pain Slipped intervertebral disc Syncope Social History Social History Alcohol intake: never Patient Tobacco Use Status: Never used Tobacco Advance Directives: No Advance Directives Information Provided: Yes Advance Directives Date on File: 05/14/21 service: No Current occupational status: unemployed Physical Exam Vital Signs: Vital Signs: Last Vital Signs Temp 98.2 F 06/20/22 03:37 Pulse 77 06/20/22 03:37 Resp 16 06/20/22 03:37 BP 122/73 06/20/22 03:37 Pulse Ox 98 06/20/22 03:37 O2 Del Method 06/20/22 03:37 BMI result Body Mass Index 34.9 VITAL SIGNS: Reviewed. GENERAL: Well developed, well nourished, in no acute distress. HEAD: Normocephalic/atraumatic EYES: PERRLA, EOMI EARS: Ext canals without abnormality OROPHARYNX: no oral lesions noted, posterior pharynx clear LUNGS: Normal breath sounds. No adventitious sounds or accessory muscle use. SpO2<98> CARDIOVASCULAR: Regular rate and rhythm without noted murmurs ABDOMEN: Soft, non-tender, non-distended with bowel sounds. BACK: No midline vertebral tenderness, pain on palpation at bilateral paraspinal at approximate L5 MUSCULOSKELETAL: No tenderness, deformities, or effusions noted on gross inspection. EXTREMITIES: No cyanosis, clubbing or edema. SKIN: Inspection of the skin reveals no rashes NEUROLOGIC: Alert and oriented x 4. Strength and sensation to light touch were grossly intact x 4, DTRs are intact. Course Course Course Narrative: 51-year-old male with history and clinical presentation after review of prior imaging studies consistent with significant spinal arthropathy that has likely progressed. Findings and history are inconsistent with an acute cauda equina, I do not expect any myelopathy and on review of abdomen pelvis CT from December 2021 there is significant description of arthritis involving the central canal and neural foraminal encroachment. Will provide pain medication as well as obtaining dedicated LS imaging. Review of all investigations negative for acute findings, CT scan demonstrates chronic stable findings, on re-evaluation patient reports he is had some improvement in his pain. He is noted to ambulate with a steady gait. He is otherwise discharged home in stable condition with remaining course of treatment. Patient was informed of all findings. Patient has informed me that he speaks Congolese without difficulty and we completed the rest of his discussion and Congolese instead of Kinyarwanda. MDM - Back Pain/Injury Lab Data Labs: Lab Results 06/20/22 Range/Units 03:38 Urine Color Yellow Urine Appearance Clear Urine pH 6.5 (5.0-9.0) Ur Specific [place] 1.020 (1.005-1.025) Urine Protein Negative (Neg-Trace) mg/dL Urine Glucose (UA) Negative (Negative) mg/dL Urine Ketones Negative (Negative) mg/dL Urine Blood Trace H (Negative) Urine Nitrite Negative (Negative) Ur Leukocyte Esterase Negative (Negative) Urine RBC 6-10 H (0-2) /HPF Urine WBC 0-5 (0-5) /HPF Ur Squamous Epith Cells 0-2 (0-2) /HPF Urine Bacteria None Seen (None Seen) Hyaline Casts 0-2 (0-2) /LPF Discharge Plan Discharge Clinical Impression: Acute exacerbation of chronic low back pain, Muscle spasm Patient Disposition: Home, Self-Care Instructions: Muscle Spasm (ED), Back Pain (ED), Lower Back Exercises (ED) Additional Instructions: 1. Tylenol 1000 mg, orally, every 6 hours as needed for pain control. Do not exceed 4000 mg within 24 hours. 2. Lidocaine patch, apply to area of maximal tenderness as directed on the outside packaging. 3. Follow-up with your scheduled appointment with your doctor. Return to the ER for worsening symptoms. Prescriptions: New cyclobenzaprine 5 mg tablet 5 mg PO BEDTIME PRN (Reason: muscle spasm) Qty: 4 0RF ketorolac 10 mg tablet 10 mg PO Q6H PRN (Reason: pain) 5 Days Qty: 20 0RF Rx Instructions: 1. Patient had Toradol in the emergency room. 2. Please instruct patient to refrain from all other NSAIDs. No Action risperidone 4 mg tablet 4 mg PO BEDTIME fluoxetine 20 mg capsule 60 mg PO DAILY prazosin 2 mg capsule 2 mg PO BEDTIME heparin(porcine) in 0.45% NaCl 25,000 unit/250 mL Parenteral Solution 25,000 unit continuous IV infusion .Q0M Qty: 250 0RF Rx Instructions: Infuse per protocol aspirin 81 mg tablet,delayed release (DR/EC) 81 mg PO DAILY Qty: 30 0RF cyclobenzaprine 10 mg tablet 10 mg PO BEDTIME PRN (Reason: muscle spasm) Qty: 14 0RF oxycodone 5 mg tablet 5 mg PO Q8H PRN (Reason: pain) Qty: 10 0RF oxycodone 5 mg tablet 5 mg PO Q8H PRN (Reason: pain) Qty: 10 0RF ibuprofen 600 mg tablet 600 mg PO Q6H PRN (Reason: pain) Qty: 14 0RF cyclobenzaprine 10 mg tablet 10 mg PO TID PRN (Reason: muscle spasm) Qty: 10 0RF Referrals: Dawna Hernandez MD [Primary Care Provider] - Stand Alone Forms: Work/School Release
[2022-06-20 03:37] VITALS: BP 122/73; PULSE 77; RESP 16; TEMP 36.8; O2SAT 98
[2022-06-20 03:45] LABS: Appearance Urine Clear; Color Urine Yellow; Glucose Urine UA Negative (Negative); Leukocyte Esterase Urine Negative (Negative); Nitrite Urine Negative (Negative); PH 6.5 (5.0-9.0); Urine Blood Trace (Negative); Urine Ketones Negative (Negative); Urine Protein Negative (Neg-Trace)
[2022-06-20 03:53] LABS: Bacteria Urine None Seen (None Seen); Hyaline Casts Urine 0-2 /LPF (0-2); Squamous Epithelial Cell Urine 0-2 /HPF (0-2); WBC Urine 0-5 /HPF (0-5)
[2022-06-20] MEDS: Ketorolac Tromethamine 15 MG/ML VIAL IM (04:04)
[2022-06-20] MEDS: Cyclobenzaprine HCl 5 MG TABLET PO (04:04)
[2022-06-20] MEDS: Acetaminophen 325 MG TABLET 975 MG PO (04:04)
[2022-06-20] MEDS: Lidocaine 4 % Patch ADH..PATCH 1 PATCH TRANSDERMA (04:05)
== END 2022-06-20 05:27 | disposition home or self-care (01) ==
PROVIDERS: Emergency Provider Student in an Organized Health Care Education/Training Program; PCP Internal Medicine
DX: M54.50 Low back pain, unspecified (principal); M62.838 Other muscle spasm; R20.2 Paresthesia of skin; Z79.899 Other long term (current) drug therapy
CPT/HCPCS: 72131; 81001; 96372; 99284; J1885

== ENCOUNTER 2022-08-20 21:44 | Emergency (ER) | payer OTHER, SELFPAY ==
--- NOTE | ~2022-08-20 | CT_ITS ---
EXAMINATION: CT ABDOMEN AND PELVIS WITHOUT CONTRAST CLINICAL INFORMATION: Blood in urine. Question kidney stones COMPARISON: CT abdomen pelvis 01/06/2022 TECHNIQUE: Multidetector volumetric imaging was performed from the superior aspect of the liver through the pubic symphysis. Sagittal and coronal reformatted images were obtained on the technologist's workstation. This CT examination was performed using dose optimization techniques as appropriate, variously including the following: *Automated exposure control *Adjustment of mA and/or kV according to patient size (this includes techniques or standardized protocols for targeted exams where dose is matched to indication/reason for exam; i.e. extremities or head) *Use of iterative reconstruction technique DLP: 575 mGy-cm FINDINGS: LUNG BASES: The visualized lung bases are unremarkable. LIVER, GALLBLADDER, AND BILIARY TREE: The liver is normal in size, shape, and attenuation. No focal hepatic lesion or biliary ductal dilatation is present. The gallbladder is unremarkable with no evidence of radiopaque gallstones, gallbladder wall thickening, or obvious pericholecystic inflammatory changes. PANCREAS: Unremarkable. SPLEEN: Normal size. 2 small calcified splenic granulomas. No other splenic lesion. ADRENAL GLANDS: Unremarkable. KIDNEYS AND URETERS: Punctate 1-2 mm nonobstructing left lower pole renal calculus. No other radiodense urinary tract calculi. No hydronephrosis. No renal lesion or perinephric stranding/collections. BLADDER: Unremarkable. GASTROINTESTINAL TRACT: Evidence of prior hiatal hernia repair. No dilated bowel loops. No bowel wall thickening. Normal appendix. No ascites or free air. ABDOMINAL WALL: No significant hernia is appreciated. LYMPH NODES: No lymphadenopathy. VASCULAR: Normal caliber abdominal aorta. PELVIC VISCERA: Unremarkable. OSSEOUS STRUCTURES: No acute fracture or suspicious osseous lesion. Mild multilevel degenerative disc disease. CT/CT abdomen pelvis wo IV con IMPRESSION: 1. Punctate 1-2 mm nonobstructing left lower pole renal calculus. No other radiodense urinary tract calculi. No hydronephrosis. 2. No acute intra-abdominal process.
--- NOTE | ~2022-08-20 | XR_ITS ---
EXAMINATION: XR CHEST CLINICAL INFORMATION: Chest pain and numbness COMPARISON: None TECHNIQUE: Frontal view of the chest was obtained. FINDINGS: No significant abnormality is noted involving the heart, lungs, mediastinum, bony thorax or soft tissues. XR/XR chest 1V IMPRESSION: Unremarkable examination.
--- NOTE | ~2022-08-20 | US_ITS ---
EXAMINATION: US SCROTUM CLINICAL INFORMATION: Testicular pain. COMPARISON: None TECHNIQUE: A sonogram of the scrotum was performed assessing duarte-scale appearance and color Doppler flow. Spectral Doppler analysis of the arterial and venous flow were performed in the testes bilaterally. FINDINGS: RIGHT: Right testicle measures 4.0 x 2.3 x 2.7 cm, volume 13.2 mL. No focal testicular parenchymal lesions are visualized. Spectral Doppler analysis of the arterial and venous flow is normal in the right testis. Right epididymal head is normal in size. No right hydrocele or varicocele is seen. Right epididymal Doppler flow is normal. LEFT: Left testicle measures 3.8 x 2.1 x 2.9 cm, volume 11.9 mL. No focal testicular parenchymal lesions are visualized. Spectral Doppler analysis of the arterial and venous flow is normal in the left testis. Left epididymal head is normal in size. No left hydrocele or varicocele is seen. Left epididymal Doppler flow is normal. US/US scrotum doppler IMPRESSION: No abnormality demonstrated.
--- NOTE | ~2022-08-20 | US_ITS ---
EXAMINATION: US SCROTUM CLINICAL INFORMATION: Testicular pain. COMPARISON: None TECHNIQUE: A sonogram of the scrotum was performed assessing duarte-scale appearance and color Doppler flow. Spectral Doppler analysis of the arterial and venous flow were performed in the testes bilaterally. FINDINGS: RIGHT: Right testicle measures 4.0 x 2.3 x 2.7 cm, volume 13.2 mL. No focal testicular parenchymal lesions are visualized. Spectral Doppler analysis of the arterial and venous flow is normal in the right testis. Right epididymal head is normal in size. No right hydrocele or varicocele is seen. Right epididymal Doppler flow is normal. LEFT: Left testicle measures 3.8 x 2.1 x 2.9 cm, volume 11.9 mL. No focal testicular parenchymal lesions are visualized. Spectral Doppler analysis of the arterial and venous flow is normal in the left testis. Left epididymal head is normal in size. No left hydrocele or varicocele is seen. Left epididymal Doppler flow is normal. US/US scrotum IMPRESSION: No abnormality demonstrated.
[2022-08-20 21:48] VITALS: BP 124/78; PULSE 105; RESP 16; TEMP 37.3; O2SAT 97; BMI 34.9
--- NOTE | 2022-08-20 21:53 | ECG_ITS ---
Test Reason : CX PAIN /NUMBNESS Blood Pressure : / mmHG Vent. Rate : 100 BPM Atrial Rate : 100 BPM P-R Int : 114 ms QRS Dur : 082 ms QT Int : 342 ms P-R-T Axes : 061 013 010 degrees QTc Int : 441 ms Sinus tachycardia Possible Left atrial enlargement RSR' or QR pattern in V1 suggests right ventricular conduction delay Nonspecific T wave abnormality Inferior leads Abnormal ECG When compared with ECG of 14-MAY-2021 13:17, No significant change was found Heart rate has increased Referred By: Generic ED Physician Electronically Signed By:SHERYL MALLORY MD
[2022-08-20 22:12] LABS: MANUAL DIFF FLAG NO
[2022-08-20 22:15] LABS: Basophils Percent Auto 0.1 % (0-2); Hematocrit 44.2 % (42.0-52.0); Hemoglobin 14.1 g/dl (14.0-18.0); Imm Gran Abs Auto 0.08 X10*3/uL (0.00-0.03); Imm Gran Pct Auto 0.5 % (0.0-0.4); Lymphocytes Absolute Auto 1.4 X10*3/uL (1.2-4.9); Lymphocytes Percent Auto 8.7 % (20-40); Mean Corpuscular HGB Conc 31.9 g/dl (31.0-36.0); Mean Corpuscular Hemoglobin 27.3 pg (27.0-33.0); Mean Corpuscular Volume 85.5 fL (80.0-98.0); Mean Platelet Volume 10.5 fL (9.4-12.4); Monocytes Absolute Auto 0.7 X10*3/uL (0.1-1.2); Monocytes Percent Auto 4.1 % (2-11); Neutrophils Absolute Auto 14.3 x10*3/uL (2.0-8.3); Neutrophils Percent Auto 86.6 % (45-73); Platelet Count 338 X10*3/uL (160-400); Red Blood Count 5.17 X10*6/uL (4.60-5.80); Red Cell Distribution Width 15.3 % (11.0-16.0); White Blood Count 16.5 X10*3/uL (4.8-10.8)
[2022-08-20 22:23] LABS: Appearance Urine Clear; Color Urine Yellow; Glucose Urine UA Negative (Negative); Leukocyte Esterase Urine Small (1+) (Negative); Nitrite Urine Negative (Negative); Specific Gravity - Urine 1.025 (1.005-1.025); UMIC TRIGGER UACC YES; Urine Blood Small (1+) (Negative); Urine Ketones Trace mg/dL (Negative); Urine Protein Negative (Neg-Trace)
[2022-08-20 22:28] LABS: Bacteria Urine None Seen (None Seen); Hyaline Casts Urine 0-2 /LPF (0-2); Squamous Epithelial Cell Urine 0-2 /HPF (0-2); UACC Culture Trigger YES
[2022-08-20 22:31] LABS: Anion Gap 18 (12-20); Blood Urea Nitrogen 22 mg/dL (9-16); Calcium 9.4 mg/dL (8.4-10.2); Carbon Dioxide 23 mmol/L (22-29); Chloride 103 mmol/L (96-108); Creatinine Clr Calc Pharmacy 112.9; Estimated Glomerular Filt Rate > 60; Glucose Random 139 mg/dL (60-115); Potassium 3.9 mmol/L (3.3-5.1); Sodium 140 mmol/L (135-145)
[2022-08-20 22:38] LABS: Troponin-I High Sensitivity < 3.5 ng/L (<3.5-35.0)
--- OUTSIDE RECORDS SUMMARY | 2022-08-20 22:42 | XMS_ITS | Continuity of Care Document ---
:1970 Author Organization [facility] Address [address] [place] [address]- Care Team Providers Name Role Phone Dawna Hernandez MD Primary Care Physician Encounter [facility] Date(s): 04/28/20 - 05/28/[address] [address]- [facility] Allergies, Adverse Reactions, Alerts Substance Reaction Severity Status lisinopril Angioedema Active Immunizations Given and Recorded Vaccine Date Status Refusal Reason influenza virus vaccine, inactivated 09/15/19 Given influenza virus vaccine, inactivated 11/19/18 Given influenza virus vaccine, inactivated 09/10/17 Given influenza virus vaccine, inactivated 12/06/15 Given tetanus/diphtheria/pertussis, acel(Tdap) 03/29/19 Given tetanus/diphtheria/pertussis, acel(Tdap) 09/10/17 Given pneumococcal 23-valent vaccine 12/21/12 Given Medications Aerochamber See Instructions, # 1 each, Maintenance, as instructed, 11/21/17 9:52:57, Compound Start Date: 11/21/17 Status: Orderedalbuterol CFC free 90 mcg/inh inhalation aerosol 2, puffs, Inhalation, Every 6 hours, PRN, # 1 each, Refills 6, Tot. Refills 6, Maintenance, 04/30/2010:59:00 EDT, Aerosol, Route to Pharmacy Electronically, [id number], [facility]/pharmacy #[id number], 165, cm, 04/30/20 10:31:00 EDT, Hei... Start Date: 04/30/20 Status: OrderedAlcohol Wipes See Instructions, # 1 box, Maintenance, please use before testing three times a day: dx type 2 diabetes, 04/04/18 18:52:53 EDT, Compound Start Date: 04/04/18 Status: Orderedatorvastatin 20 mg oral tablet 1 tablet = 20 mg, By Mouth, Daily, # 30 tablet, 5 Refills, Maintenance, 04/30/20 10:59:00 EDT, Tablet, [id number], 165, cm, 04/30/20 10:31:00 EDT, Height, 95.8, kg, 04/19/20 14:48:00 EDT, Dry Weight Start Date: 04/30/20 Status: OrderedBack Brace See Instructions, # 1 each, Maintenance, Dx DJD, back pain. Wear for support, 03/04/19 9:32:01 EDT, Compound Start Date: 03/04/19 Status: OrderedCane See Instructions, # 1 each, Maintenance, use with ambulation, dx disc herniation, 11/19/18 10:26:20 EST, Compound Start Date: 11/19/18 Status: OrderedCPAP Machine See Instructions, # 1 units, Refills 0, Tot. Refills 0, Maintenance, CPAP of 8 cm of H2O with a heated humidifier. Recommend ordering a machine with compliance data tracking capabilities and following residual AHI. 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 Start Date: 09/10/17 Status: OrderedCpap supplies Cpap supplies, See Instructions, # 1 each, Refills 12, Tot. Refills 12, Maintenance, Cpap- supplies:Mask, Tubing, filters, head gear and water chamber. DX: MARIA G G47.30, 02/05/20 13:37:00 EDT, Compound Start Date: 02/05/20 Status: OrderedFLUoxetine 20 mg oral capsule 60 mg, 3, capsule, By Mouth, Daily, Maintenance, 06/30/19 17:19:41 EDT Start Date: 06/30/19 Status: OrderedFreestyle Lite Lancets See Instructions, # 200 each, Refills 5, Tot. Refills 5, Maintenance, use as directed for Type 2 Diabetes Mellitus. Check sugars three times a day, 04/30/20 11:03:00 EDT, Compound, 165, cm, 04/30/20 10:31:00 EDT, Height, 95.8, kg, 04/19/20 14:48:00 ED... Start Date: 04/30/20 Stop Date: 10/27/20 Status: OrderedFreestyle Lite Monitor See Instructions, # 1 each, Refills 0, Tot. Refills 0, Maintenance, use as directed for Type 2 Diabetes Mellitus. check sugars three times a day. ICD-10 code: E11.9, 11/19/18 10:24:52 EST, Compound Start Date: 11/19/18 Stop Date: 12/19/18 Status: OrderedFreestyle Lite Test Strips See Instructions, # 200 each, Maintenance, use as directed for Type 2 Diabetes Mellitus. check sugars three times a day, 04/30/20 11:03:00 EDT, Compound, 165, cm, 04/30/20 10:31:00 EDT, Height, 95.8, kg, 04/19/20 14:48:00 EDT, Dry Weight Start Date: 04/30/20 Stop Date: 05/30/20 Status: Orderedgabapentin 800 mg oral tablet 1 tablet = 800 mg, By Mouth, 3 times a day, # 90 tablet, 5 Refills, Maintenance, 11/20/19 12:00:00 EST, Tablet, [facility]/pharmacy #[id number], 165, cm, 11/20/19 11:16:00 EST, Height, 97.3, kg, 10/23/19 17:43:00 EST, Dry Weight Start Date: 11/20/19 Status: Orderedomeprazole 20 mg oral delayed release tablet 1 tablet = 20 mg, By Mouth, Daily, # 30 tablet, 2 Refills, Maintenance, 05/24/20 10:57:00 EDT, EC Tablet, [facility]/pharmacy #[id number], 165, cm, 05/06/20 10:29:00 EDT, Height, 95.8, kg, 04/19/20 14:48:00 EDT, Dry Weight Start Date: 05/24/20 Status: OrderedoxyCODONE 10 mg oral tablet 1 tablet = 10 mg, By Mouth, Every 6 hours, PRN as needed for pain, dx: M54.5 on agreement masspat checked do not fill til 05/25/20, # 20 tablet, 0 Refills, Maintenance, 05/25/20 13:50:00 EDT, Tablet, [facility], Partial fill upon cedric... Start Date: 05/25/20 Status: OrderedraNITIdine 75 mg oral tablet 1 tablet = 75 mg, By Mouth, Daily, # 28 tablet, 0 Refills, Maintenance, 04/30/20 10:58:00 EDT, Tablet, [facility]/pharmacy #[id number], 165, cm, 04/30/20 10:31:00 EDT, Height, 95.8, kg, 04/19/20 14:48:00 EDT, Dry Weight Start Date: 04/30/20 Status: OrderedrisperiDONE 2 mg oral tablet 2 mg, 1, tablet, By Mouth, Daily at bedtime, Rx'd by psychiatry, Maintenance, 01/28/19 20:39:47 EDT Start Date: 01/28/19 Status: OrderedShower Bench Shower Bench, See Instructions, # 1 each, Refills 0, Tot. Refills 0, Maintenance, to be used to helpwith hygeine dx: M54.5, 01/29/20 17:13:00 EDT, Supply Start Date: 01/29/20 Status: OrderedWalker See Instructions, # 1 units, Maintenance, Use as dircted, 07/05/19 14:32:18 EDT, Compound Start Date: 07/05/19 Status: Ordered Problem List Condition Effective Dates Status Health Status Informant Chest pain(Confirmed) Active Chest pain(Confirmed) Active Diabetes(Confirmed) Active Controlled substance agreement signed Active 02/03/20(Confirmed) GERD (gastroesophageal reflux Active disease)(Confirmed) Hyperlipidemia(Confirmed) Active Lower back pain(Confirmed) Active Obstructive sleep apnea(Confirmed) Active Health correction, active care Active coordination PADMINI Cruz [facility] [phone](Confirmed) Fatty infiltration of liver(Confirmed) Active Social History Social History Type Response Smoking Status Former smoker; Other: Quit 2 015; entered on: 09/10/17 Sex
--- OUTSIDE RECORDS SUMMARY | 2022-08-20 22:42 | XMS_ITS | Continuity of Care Document ---
:1970 Author Organization [facility] Address [address] [place] [address]- Care Team Providers Name Role Phone Dawna Hernandez MD Primary Care Physician Encounter [facility] Date(s): 04/19/20 - 05/19/[address] [address]- [facility] Allergies, Adverse Reactions, Alerts Substance Reaction Severity [...] 04/30/2010:59:00 EDT, Aerosol, Route to Pharmacy Electronically, [id number], [facility]/pharmacy #[id number], 165, cm, 04/30/20 10:31:00 EDT, Hei... [...] 5 Refills, Maintenance, 11/20/19 12:00:00 EST, Tablet, [facility]/pharmacy #[id number], 165, cm, 11/20/19 11:16:00 EST, Height, 97.3, kg, 10/23/19 17:43:00 EST, Dry Weight Start Date: 11/20/19 Status: OrderedoxyCODONE 10 mg oral tablet 1 tablet = 10 mg, By Mouth, Every 6 hours, PRN as needed for pain, dx: M54.5 on agreement masspat checked do not fill til 05/06/20, # 20 tablet, 0 Refills, Maintenance, 05/06/20 10:54:00 EDT, Tablet, [facility]/pharmacy #[id number], Partial fill upon patient re... Start Date: 05/06/20 Status: OrderedraNITIdine 75 mg oral tablet 1 tablet = 75 mg, By Mouth, Daily, # 28 tablet, 0 Refills, Maintenance, 04/30/20 10:58:00 EDT, Tablet, [facility]/pharmacy #[id number], 165, cm, 04/30/20 10:31:00 EDT, Height, [...] pain(Confirmed) Active Obstructive sleep apnea(Confirmed) Active Health jail, active care Active coordination PADMINI Mata [phone](Confirmed) Fatty infiltration of liver(Confirmed) Active Social History Social History Type Response Smoking Status Former smoker; Other: Quit 2 015; entered on: 09/10/17 Sex
--- OUTSIDE RECORDS SUMMARY | 2022-08-20 22:43 | XMS_ITS | Continuity of Care Document ---
:1970 Author Organization [facility] Address [address] [place] [address]- Care Team Providers Name Role Phone Dawna Hernandez MD Primary Care Physician [facility] [facility] Date(s): 05/13/21 - 05/13/[address] [id number]- Discharge Disposition: A-D/C Walkout Attending Physician: Not on Staff, Attending MD Admitting Physician: Not on Staff, Admitting MD Referring Physician: Not on Staff, Referring MD Allergies, Adverse Reactions, Alerts Substance Reaction Severity Status lisinopril Angioedema Active Shrimp Active Immunizations Given and Recorded Vaccine Date Status Refusal Reason influenza virus vaccine, inactivated 09/01/20 Given influenza virus vaccine, inactivated 09/15/19 Given influenza [...] 04/30/2010:59:00 EDT, Aerosol, Route to Pharmacy Electronically, [id number], [facility]/pharmacy #[id number], 165, cm, 07/17/20 10:31:00 EDT, Hei... Start Date: 04/30/20 Status: OrderedAlcohol Wipes See Instructions, # 1 box, Maintenance, please use before testing three times a day: dx type 2 diabetes, 04/04/18 18:52:53 EDT, Compound Start Date: 04/04/18 Status: Orderedatorvastatin 20 mg oral tablet 1 tablet = 20 mg, By Mouth, Daily at bedtime, # 30 tablet, 5 Refills, Maintenance, 01/20/21 16:26:00EDT, Tablet, [facility]/pharmacy #[id number], 164, cm, 01/20/21 15:43:00 EDT, Height, 98, kg, 01/11/21 18:32:00 EDT, Dry Weight Start Date: 01/20/21 Status: OrderedBack Brace See Instructions, # 1 each, Maintenance, Dx DJD, back pain. Wear for support, 03/04/19 9:32:01 EDT, Compound Start Date: 03/04/19 Status: OrderedCane See Instructions, # 1 each, Maintenance, use with ambulation, dx disc herniation, 11/19/18 10:26:20 EST, Compound Start Date: 11/19/18 Status: Orderedcetirizine 10 mg oral tablet 1 tablet = 10 mg, By Mouth, Daily, # 90 tablet, 0 Refills, Maintenance, 01/20/21 16:26:00 EDT, Tablet, [id number], Partial fill upon patient request if the prescription is for a schedule II opioid drug., 164, cm, 01/20/21 15:43:00 EDT, Height,... Start Date: 01/20/21 Status: OrderedCPAP Machine See Instructions, # 1 units, Refills 0, Tot. Refills 0, Maintenance, CPAP of 8 cm of H2O with a heated humidifier. Recommend ordering a machine with compliance data tracking capabilities and following residual AHI. 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 Start Date: 09/10/17 Status: OrderedFlorastor 250 mg oral capsule 1 capsule = 250 mg, By Mouth, 2 times a day, for 26 days, take while taking antibiotics, # 52 capsule, 0 Refills, Acute 05/22/21 10:41:00 EDT, 04/26/21 10:41:00 EDT, [facility]/pharmacy #[id number], Partial fill upon patient request if the prescription is for a sc... Start Date: 04/26/21 Stop Date: 05/22/21 Status: OrderedFLUoxetine 20 mg oral capsule 60 mg, 3, capsule, By Mouth, Daily, Maintenance, 06/30/19 17:19:41 EDT Start Date: 06/30/19 Status: OrderedFreestyle Lite Lancets See Instructions, # 200 each, Refills 5, Tot. Refills 5, Maintenance, use as directed for Type 2 Diabetes Mellitus. Check sugars three times a day, 12/28/20 11:42:00 EDT, Compound, 164, cm, 12/23/20 8:38:00 EST, Height, 97, kg, 12/18/20 22:05:00 EST,... Start Date: 12/28/20 Stop Date: 06/26/21 Status: OrderedFreestyle Lite Monitor See Instructions, # [...] Mellitus. check sugars three times a day, 12/28/20 11:42:00 EDT, Compound, 164, cm, 12/23/20 8:38:00 EST, Height, 97, kg, 12/18/20 22:05:00 EST, Dry Weight Start Date: 12/28/20 Stop Date: 01/27/21 Status: Orderedgabapentin 300 mg oral capsule 300 mg, 1, capsule, By Mouth, 3 times a day, Empieza con katy tableta en la noche x3ds. Despues, tomeuna tableta en la manana y noche x3ds. [place] katy tableta en la manana y tarde y antes de acostarse., # 90 capsule, Refills 1, Tot. Refills 1, Maintenan... Start Date: 01/18/21 Status: Orderedlidocaine 5% topical film 1 patch, Topically, Daily, PRN Pain , Moderate, # 10 patch, 0 Refills, Maintenance, 04/26/21 10:38:00 EDT, Patch, [facility]/pharmacy #[id number], Partial fill upon patient request if the prescription is for a schedule II opioid drug., 1 patch Topically Daily,PRN:... Start Date: 04/26/21 Status: Orderedomeprazole 20 mg oral enteric coated capsule 1 capsule = 20 mg, By Mouth, Daily, # 30 capsule, 1 Refills, Maintenance, 12/14/20 10:57:00 EST, [facility]/pharmacy #[id number], Partial fill upon patient request if the prescription is for a schedule II opioid drug., 165, cm, 12/09/20 14:35:00 EST, Height, 90.5,... Start Date: 12/14/20 Stop Date: 02/12/21 Status: OrderedPAP Supplies - Mask, Tubing, Filters, Head Gear, Chin Strap, and Water Chamber PAP Supplies - Mask, Tubing, Filters, Head Gear, Chin Strap, and Water Chamber, See Instructions, # 1 each, Refills 12, Tot. Refills 12, Maintenance, to be used with CPAP machine for dx: MARIA G G47.30, 08/19/20 14:29:00 EST, Compound Start Date: 08/19/20 Status: Orderedprazosin 2 mg oral capsule 1 capsule = 2 mg, By Mouth, Daily, # 90 capsule, 0 Refills, Maintenance, 10/11/20 3:29:00 EST, Capsule, Partial fill upon patient request if the prescription is for a schedule II opioid drug. Start Date: 10/11/20 Status: OrderedReglan 5 mg oral tablet 1 tablet = 5 mg, By Mouth, 4 times a day, # 120 tablet, 0 Refills, Acute 05/20/21 16:00:00 EDT, 05/09/21 9:11:00 EDT, Tablet, [facility]/pharmacy #[id number], Partial fill upon patient request if the prescription is for a schedule II opioid drug., 165, cm, ... Start Date: 05/09/21 Stop Date: 05/20/21 Status: OrderedrisperiDONE 2 mg oral tablet 4 mg, 2, tablet, By Mouth, Daily at bedtime, Rx'd by psychiatry, Maintenance, 01/28/19 20:39:47 EDT Start Date: 01/28/19 Status: OrderedRollator Walker with Seat and Hand Brakes Rollator Walker with Seat and Hand Brakes, See Instructions, # 1 each, Refills 0, Tot. Refills 0, Maintenance, dx: M54.5 to be used to help with mobility, 11/24/20 13:12:00 EST, Supply Start Date: 11/24/20 Status: OrderedShower Bench Shower Bench, See Instructions, # 1 each, Refills 0, Tot. Refills 0, Maintenance, to be used to helpwith hygeine dx: M54.5, 01/29/20 17:13:00 EDT, Supply Start Date: 01/29/20 Status: OrderedSitz Bath See Instructions, # 1 each, Maintenance, Use 1-2 times daily for 1 week Follow directions on the box, 04/26/21 11:13:00 EDT, Supply, 165, cm, 04/26/21 7:21:00 EDT, Height, 99.3, kg, 04/19/21 8:13:00 EDT, Dry Weight Start Date: 04/26/21 Status: Orderedtamsulosin 0.4 mg oral capsule 0.4 mg, 1, capsule, By Mouth, Daily at bedtime, # 7 capsule, Refills 0, Tot. Refills 0, Maintenance,04/26/21 10:39:00 EDT, Route to Pharmacy Electronically, [facility]/pharmacy #[id number], Partial fill upon patient request if the prescription is for a schedule I... Start Date: 04/26/21 Stop Date: 05/03/21 Status: OrderedWalker See Instructions, # 1 units, Maintenance, Use as dircted, 07/05/19 14:32:18 EDT, Compound Start Date: 07/05/19 Status: Ordered Problem List Condition Effective Dates Status Health Status Informant Chest pain(Confirmed) Active Chest pain(Confirmed) Active Depression(Confirmed) Active Diabetes(Confirmed) Active Controlled substance agreement signed Active 02/03/20(Confirmed) GERD (gastroesophageal reflux Active disease)(Confirmed) Hyperlipidemia(Confirmed) Active Lower back pain(Confirmed) Active Obstructive sleep apnea(Confirmed) Active Health senior living, active care Active coordination PADMINI Mata [phone](Confirmed) Fatty infiltration of liver(Confirmed) Active Tubular adenoma of colon(Confirmed) Active Vital Signs Most recent to oldest [Reference Range]: 1 Oxygen Saturation [94-100 %] 100 % (05/13/21 10:50 AM) Pulse Rate [55-90 bpm] 112 bpm *H* (05/13/21 10:50 AM) Mode of Delivery (Oxygen) Room air (05/13/21 10:50 AM) Social History Social History Type Response Smoking Status Former smoker; Other: Quit 2 015; entered on: 09/10/17 Sex
--- OUTSIDE RECORDS SUMMARY | 2022-08-20 22:43 | XMS_ITS | Continuity of Care Document ---
:1970 Author Organization [facility] Address [address] [place] [address]- Care Team Providers Name Role Phone Dawna Hernandez MD Primary Care Physician Encounter [facility] Date(s): 09/20/20 - 10/20/[address] [id number] Allergies, Adverse Reactions, Alerts Substance Reaction Severity [...] 04/30/2010:59:00 EDT, Aerosol, Route to Pharmacy Electronically, [id number], [id number], 165, cm, 04/30/20 10:31:00 EDT, Hei... [...] Start Date: 04/30/20 Stop Date: 05/30/20 Status: OrderedoxyCODONE 15 mg oral tablet 1 tablet = 15 mg, By Mouth, Every 6 hours, PRN as needed for pain, dx: M54.5 on agreement masspat checked do not fill til 09/13/20, # 56 tablet, 0 Refills, Maintenance, 09/13/20 13:37:00 EST, Tablet, [facility]/pharmacy #[id number], Partial fill upon patient r... Start Date: 09/13/20 Stop Date: 09/27/20 Status: Orderedpantoprazole 40 mg oral delayed release tablet 1 tablet = 40 mg, By Mouth, Daily, # 30 tablet, 0 Refills, Maintenance, 09/19/20 13:50:00 EST, EC Tablet, 165, cm, 09/19/20 5:22:00 EST, Height, 90.8, kg, 09/18/20 20:56:00 EST, Dry Weight Start Date: 09/19/20 Stop Date: 10/19/20 Status: OrderedPAP Supplies - Mask, Tubing, Filters, [...] II opioid drug. Start Date: 10/11/20 Status: OrderedrisperiDONE 2 mg oral tablet 2 [...] pain(Confirmed) Active Obstructive sleep apnea(Confirmed) Active Health group home, active care [facility] [phone](Confirmed) Fatty infiltration of liver(Confirmed) Active Tubular adenoma of colon(Confirmed) Active Social History Social History Type Response Smoking Status Former smoker; Other: Quit 2 015; entered on: 09/10/17 Sex
--- OUTSIDE RECORDS SUMMARY | 2022-08-20 22:43 | XMS_ITS | Continuity of Care Document ---
:1970 Author Organization [facility] Address [address] [place] [address]- Care Team Providers Name Role Phone Dawna Hernandez MD Primary Care Physician Encounter [facility] Date(s): 10/04/19 - 10/05/[address] [address] Encounter Diagnosis Syncope (Final) - 10/04/19 Discharge Disposition: A-D/C Home Attending Physician: Rafael Cooper DO Admitting Physician: Apoorva RAWLS, [facility] A Referring Physician: Not on Staff, Referring MD [...] each, Refills 6, Tot. Refills 6, Maintenance, 189:52:06, Aerosol, Route to Pharmacy Electronically, [id number], [facility] [id number], Compound Start Date: 11/21/17 Status: OrderedAlcohol Wipes See Instructions, # 1 box, Maintenance, please use before testing three times a day: dx type 2 diabetes, 04/04/18 18:52:53 EDT, Compound Start Date: 04/04/18 Status: Orderedatorvastatin 20 mg oral tablet 1 tablet = 20 mg, By Mouth, Daily, # 30 tablet, 5 Refills, Maintenance, 07/09/19 10:10:33 EDT, Tablet Start Date: 07/09/19 Status: OrderedBack Brace See Instructions, # 1 each, Maintenance, sciatica; back brace for support, 04/01/18 10:13:51 EDT, Compound Start Date: 04/01/18 Status: OrderedBack Brace See Instructions, # 1 [...] head gear and water chamber. DX: MARIA G, 09/10/17 9:39:22, Compound Start Date: 09/10/17 Status: Orderedfamotidine 20 mg oral tablet 20 mg, 1, tablet, By Mouth, Daily at bedtime, # 30 tablet, Refills 0, Tot. Refills 0, Maintenance, 07/14/19 12:16:28 EDT, Route to Pharmacy Electronically, [id number], [facility]/pharmacy #[id number] Start Date: 07/14/19 Status: OrderedFLUoxetine 20 mg oral capsule 60 mg, 3, capsule, By Mouth, Daily, Maintenance, 06/30/19 17:19:41 EDT Start Date: 06/30/19 Status: OrderedFreestyle Lite Lancets See Instructions, # 200 each, Refills 5, Tot. Refills 5, Maintenance, use as directed for Type 2 Diabetes Mellitus. Check sugars three times a day, 04/04/18 18:51:41 EDT, Compound Start Date: 04/04/18 Stop Date: 05/04/18 Status: OrderedFreestyle Lite Monitor See Instructions, # [...] Mellitus. check sugars three times a day, 11/19/18 10:23:54 EST, Compound Start Date: 11/19/18 Stop Date: 12/19/18 Status: Orderedgabapentin 300 mg oral capsule 600 mg, By Mouth, 3 times a day, # 90 capsule, Refills 0, Tot. Refills 0, Maintenance, 09/15/19 11:29:48 EST, Route to Pharmacy Electronically, [id number], [facility]/pharmacy #[id number] Start Date: 09/15/19 Stop Date: 10/15/19 Status: OrderedrisperiDONE 1 mg oral tablet 1 mg, 1, tablet, By Mouth, Daily, Maintenance, 06/30/19 17:19:13 EDT Start Date: 06/30/19 Status: OrderedrisperiDONE 2 mg oral tablet 2 mg, 1, tablet, By Mouth, Daily at bedtime, Rx'd by psychiatry, Maintenance, 01/28/19 20:39:47 EDT Start Date: 01/28/19 Status: OrderedTums 500 mg oral tablet, chewable 500 mg, 1, tablet, Chew, 2 times a day, PRN, # 12 tablet, Refills 0, Tot. Refills 0, Maintenance, asneeded for dyspepsia, 07/14/19 12:16:45 EDT, Route to Pharmacy Electronically, [id number], [facility]/pharmacy #[id number] Start Date: 07/14/19 Status: OrderedWalker See Instructions, # 1 units, Maintenance, Use as dircted, 07/05/19 14:32:18 EDT, Compound Start Date: 07/05/19 Status: Ordered Problem List Condition Effective Dates Status Health Status Informant Cellulitis of knee, right(Confirmed) Active Chest pain(Confirmed) Active Chest pain(Confirmed) Active Diabetes(Confirmed) Active GERD (gastroesophageal reflux Active disease)(Confirmed) Hyperlipidemia(Confirmed) Active Lower back pain(Confirmed) Active Obstructive sleep apnea(Confirmed) Active Poor historian(Confirmed) Active Septic prepatellar bursitis of right Active knee(Confirmed) Septic prepatellar bursitis of left Active knee(Confirmed) Fatty infiltration of liver(Confirmed) Active Results Radiology Reports Exam Date Time Procedure Performing Provider Status 10/04/19 2:49 PM Chest 2 Views Frontal and Lat Ayala Kan; Auth (Verified) Notes:(Chest 2 Views Frontal and Lat) Reason For Exam: Pleuritic PainRESULT: Chest 2 Views Frontal and Lat Chest 2 Views Frontal and Lat INDICATION: Refer to EMR; Reason: Pleuritic Pain; Clinical Question(s): Pneumothorax; Hx of Present Illness: intermittent Left anterior sharp CP that radiate to left arm x 3 days associated with SOB, nausea, dizziness and palpitation, has been using his asthma pump w out relief. report an episode of CP this AM at 1000, then fell hitting his head. + dry cough; Other Objective Findings: Pt A Ox4, speaking clear COMPARISON: 07/26/2019 FINDINGS: Clear lungs. No pneumothorax or effusion. Normal size heart. IMPRESSION: No acute abnormality. WSN: [id number] Dictated By: Kesley Petty MD Dictated Date/Time: 10/04/19 3:32 pm Reviewed By: Kelsey Petty MD Signed By: Kelsey Petty MD Signed Date/Time: 10/04/19 3:32 pm Transcribed By: HARPAL Transcribed Date/Time: 10/04/19 3:32 pm Vital Signs Most recent to oldest 1 2 3 [Reference Range]: Height 165 cm 165 cm 165 cm (10/05/19 8:39 AM) (10/05/19 4:16 AM) (10/05/19 12:28 AM) Weight 100.1 kg 99.7 kg 99.7 kg (10/04/19 8:10 PM) (10/04/19 5:32 PM) (10/04/19 1:10 PM) Oxygen Saturation [94-100 97 % 97 % 96 % %] (10/05/19 8:39 AM) (10/05/19 4:16 AM) (10/05/19 12:19 AM) Pulse Rate [55-90 bpm] 83 bpm 97 bpm 83 bpm (10/05/19 8:39 AM) *H* (10/05/19 12: 19 AM) (10/05/19 4:16 AM) Body Mass Index 36.77 36.62 [18.5-24.99] *>HHI* *>HHI* (10/04/19 8:10 PM) (10/04/19 5:32 PM) Blood Pressure 99/61 mm Hg 110/77 mm Hg 117/68 mm Hg [90-138/55-84 mm Hg] (10/05/19 8:39 AM) (10/05/19 4:16 AM) (09/15 12/03 12:19 AM) Respiratory Rate [16-30 18 br/min 18 br/min 16 br/mi n br/min] (10/05/19 10:30 AM) (10/05/19 9:39 AM) (10/05/19 8:39 AM) Temperature [96.8-100.4 97.4 DegF 97.6 DegF 97.7 Deg F DegF] (10/05/19 8:39 AM) (10/05/19 4:16 AM) (10/05/19 12:19 AM) Mode of Delivery (Oxygen) Room air CPAP Room a ir (10/05/19 8:39 AM) (10/05/19 4:16 AM) (10/05/19 12:19 AM) Blood pressure sites Arm, right Arm, right Arm, left (10/05/19 8:39 AM) (10/05/19 4:16 AM) (10/05/19 12:19 AM) Temperature Route Oral Oral Oral (10/05/19 8:39 AM) (10/05/19 4:16 AM) (10/05/19 12:19 AM) Dry Weight 100.1 kg 99.7 kg 99.7 kg (10/04/19 8:10 PM) (10/04/19 5:32 PM) (10/04/19 1:10 PM) Weight Obtained Via Bed scale (10/04/19 8:10 PM) Dry Weight Obtained Via Bed scale (10/04/19 8:10 PM) Social History Social History Type Response Smoking Status Former smoker; Other: Quit 2 015; entered on: 09/10/17 Sex
--- OUTSIDE RECORDS SUMMARY | 2022-08-20 22:43 | XMS_ITS | Continuity of Care Document ---
:1970 Author Organization [facility] Address [address] [place] [address]- Care Team Providers Name Role Phone Dawna Hernandez MD Primary Care Physician [place] [facility] [place] 10[place] 11/12/[address] [address] Attending Physician: Lori Patton Admitting Physician: Admtr, Ar8 Referring Physician: Admtr, Ar8 Referring Physician: Jonna Graham Allergies, Adverse Reactions, Alerts Substance Reaction Severity [...] 04/30/2010:59:00 EDT, Aerosol, Route to Pharmacy Electronically, [id number], [facility]/pharmacy #[id number], 165, cm, 04/30/20 10:31:00 EDT, Hei... Start Date: 04/30/20 Status: OrderedAlcohol Wipes See Instructions, # 1 box, Maintenance, please use before testing three times a day: dx type 2 diabetes, 04/04/18 18:52:53 EDT, Compound Start Date: 04/04/18 Status: Orderedatorvastatin 20 mg oral tablet 1 tablet = 20 mg, By Mouth, Daily at bedtime, # 30 tablet, 5 Refills, Maintenance, 01/20/21 16:26:00EDT, Tablet, [facility]/pharmacy #[id number], 164, cm, 01/20/21 15:43:00 EDT, Height, 98, kg, 01/11/21 18:32:00 EDT, Dry Weight Start Date: 01/20/21 Status: OrderedBack Brace See Instructions, # 1 each, Maintenance, Dx DJD, back pain. Wear for support, 08/09/21 10:06:00 EDT,Compound Start Date: 08/09/21 Status: OrderedCane See Instructions, # 1 each, [...] severe-G47.33 lenght of... Start Date: 09/10/17 Status: OrderedFLUoxetine 20 mg oral capsule 60 [...] tableta en la manana y noche x3ds. [place] tableta en la manana y tarde y antes de acostarse., # 270 capsule, Refills 3, Tot. Refills 3, Maintena... Start Date: 08/09/21 Status: Orderedlidocaine 5% topical film 1 patch, Topically, Daily, PRN Pain , Moderate, # 10 patch, 0 Refills, Maintenance, 04/26/21 10:38:00 EDT, Patch, [id number], Partial fill upon patient request if the prescription is for a schedule II opioid drug., 1 patch Topically Daily,PRN:... Start Date: 04/26/21 Status: Orderedomeprazole 20 mg oral enteric coated capsule 1 capsule = 20 mg, By Mouth, Daily, # 30 capsule, 1 Refills, Maintenance, 12/14/20 10:57:00 EST, [facility]/pharmacy #[id number], Partial fill upon patient request if [...] II opioid drug. Start Date: 10/11/20 Status: Orderedpropranolol 20 mg oral tablet See Instructions, TAKE 2 TABLETS BY MOUTH TWICE A DAY, # 120 tablet, Refills 0, Instructions ReplaceRequired Details, Route to Pharmacy Electronically, [facility] STORE [id number], 165, cm, 06/02/21 12:44:00 EDT,Height, 92.8, kg, 05/19/21 23:20:00 EDT, Dry Weight Start Date: 08/02/21 Status: Orderedpropranolol 20 mg oral tablet 40 mg, 2, tablet, By Mouth, 2 times a day, # 120 tablet, Refills 0, Tot. Refills 0, Maintenance, 08/02/21 15:46:00 EDT, Route to Pharmacy Electronically, [facility]/pharmacy #[id number], Partial fill upon patient request if the prescription is for a schedule II op... Start Date: 08/02/21 Status: OrderedrisperiDONE 2 mg oral tablet 4 [...] Maintenance,04/26/21 10:39:00 EDT, Route to Pharmacy Electronically, [facility]/pharmacy #[id number], Partial fill upon patient request if the [...] pain(Confirmed) Active Obstructive sleep apnea(Confirmed) Active Health long term, active care Active coordination PADMINI Cruz [facility] [phone](Confirmed) Fatty infiltration of liver(Confirmed) Active Tubular adenoma of colon(Confirmed) Active Social History Social History Type Response Smoking Status Former smoker; Other: Quit 2 015; entered on: 09/10/17 Sex
--- OUTSIDE RECORDS SUMMARY | 2022-08-20 22:43 | XMS_ITS | Continuity of Care Document ---
:1970 Author Organization [facility] Address [address] [place] [address]- Care Team Providers Name Role Phone Dawna Hernandez MD Primary Care Physician Encounter [facility] [place] [facility] R [id number] Date(s): 04/13/21 - 04/17/[address] [address]- Encounter Diagnosis Acute upper urinary tract infection (Final) - 04/12/21 Seasonal allergies (Discharge Diagnosis) - 04/13/21 Discharge Disposition: A-D/C Home Attending Physician: Edgar RAWLS, Amol Admitting Physician: Lynsey Warner MD Referring Physician: Not on Staff, Referring [...] 04/30/2010:59:00 EDT, Aerosol, Route to Pharmacy Electronically, [id number], [id number], 165, cm, 04/30/20 10:31:00 EDT, Hei... Start Date: 04/30/20 Status: OrderedAlcohol Wipes See Instructions, # 1 box, Maintenance, please use before testing three times a day: dx type 2 diabetes, 04/04/18 18:52:53 EDT, Compound Start Date: 04/04/18 Status: Orderedamoxicillin 500 mg oral capsule 1 capsule = 500 mg, By Mouth, 3 times a day, for 3 days, # 9 capsule, 0 Refills, Acute 04/20/21 12:26:00 EDT, 04/17/21 12:26:00 EDT, Capsule, [id number], Partial fill upon patient request if the prescription is for a schedule II opioid drug.,... Start Date: 04/17/21 Stop Date: 04/20/21 Status: Orderedatorvastatin 20 mg oral tablet 1 tablet = 20 mg, By Mouth, Daily at bedtime, # 30 tablet, 5 Refills, Maintenance, 01/20/21 16:26:00EDT, Tablet, [id number], 164, cm, 01/20/21 15:43:00 EDT, Height, [...] tableta en la manana y noche x3ds. [place] katy tableta en la manana y tarde y antes de acostarse., # 90 capsule, Refills 1, Tot. Refills 1, Maintenan... Start Date: 01/18/21 Status: Orderedgabapentin 300 mg oral capsule 300 mg, Capsule, By Mouth, 04/17/21 9:00:00 EDT Start Date: 04/17/21 Stop Date: 04/17/21 Status: Completedomeprazole 20 mg oral enteric coated capsule 1 capsule = 20 mg, By Mouth, Daily, # 30 capsule, 1 Refills, Maintenance, 12/14/20 10:57:00 EST, [facility]/pharmacy #[id number], Partial fill upon patient request if [...] EST, Compound Start Date: 08/19/20 Status: Orderedprazosin 1 mg oral capsule 2 mg, Capsule, By Mouth, 04/17/21 9:00:00 EDT Start Date: 04/17/21 Stop Date: 04/17/21 Status: Completedprazosin 2 mg oral capsule 1 capsule = 2 mg, By Mouth, Daily, # 90 capsule, 0 Refills, Maintenance, 10/11/20 3:29:00 EST, Capsule, Partial fill upon patient request if the prescription is for a schedule II opioid drug. Start Date: 10/11/20 Status: OrderedrisperiDONE 2 mg oral tablet 4 [...] 17:13:00 EDT, Supply Start Date: 01/29/20 Status: OrderedTylenol 325 mg oral tablet 650 mg, Tablet, By Mouth, 04/17/21 10:00:00 EDT Start Date: 04/17/21 Stop Date: 04/17/21 Status: CompletedWalker See Instructions, # 1 units, Maintenance, Use as dircted, 07/05/19 14:32:18 EDT, Compound Start Date: 07/05/19 Status: Ordered Problem List Condition Effective Dates Status Health Status Informant Chest pain(Confirmed) Active Chest pain(Confirmed) Active Depression(Confirmed) Active Diabetes(Confirmed) Active Controlled substance agreement signed Active 02/03/20(Confirmed) GERD (gastroesophageal reflux Active disease)(Confirmed) Hyperlipidemia(Confirmed) Active Lower back pain(Confirmed) Active Obstructive sleep apnea(Confirmed) Active Health longterm, active care Active coordination PADMINI Mata [phone](Confirmed) Fatty infiltration of liver(Confirmed) Active Tubular adenoma of colon(Confirmed) Active Diagnosis Diagnosis Type Effective Dates Health Status Clinical In formant Service Seasonal Discharge 04/13/21 allergies Diagnosis Results Orders for Microbiology Reports Name Date Blood Culture 04/13/21 Blood Culture #2 04/13/21 Urine Culture (URINE CULTURE) 04/12/21 Microbiology Reports TEST:Blood Culture STATUS:Unauthenticated BODY SITE: SOURCE:Blood COLLECTED DATE/TIME:04/13/21 6:56 AMBlood Culture SPECIMEN DESCRIPTION : BLOOD NO SITE SPECIAL REQUESTS : NONE CULTURE : NO GROWTH 4 DAYS REPORT STATUS : PRELIMINARY REPORT TEST:Blood Culture, Second Order STATUS:Unauthenticated BODY SITE: SOURCE:Blood COLLECTED DATE/TIME:04/13/21 6:56 AMBlood Culture, Second Order SPECIMEN DESCRIPTION : BLOOD NO SITE SPECIAL REQUESTS : NONE CULTURE : NO GROWTH 4 DAYS REPORT STATUS : PRELIMINARY REPORT TEST:Urine Culture STATUS:Auth (Verified) BODY SITE: SOURCE:URINE COLLECTED DATE/TIME:04/12/21 7:00 PMUrine Culture SPECIMEN DESCRIPTION : URINE SPECIAL REQUESTS : NONE CULTURE : >100,000 COL/ML GROUP B BETA HEMOLYTIC STREPTOCOCCI ISOLATED. SUSCEPTIBILITY TESTING NOT ROUTINELY PERFORMED ON THIS ISOLATE. REPORT STATUS : FINAL 04/14/2021 Vital Signs Most recent to oldest [Reference 1 2 3 Range]: Height 165 cm 165 cm 165 cm (04/17/21 2:19 PM) (04/17/21 4:38 AM) (04/16/21 8:28 P M) Weight 103.2 kg (04/13/21 2:35 AM) Oxygen Saturation [94-100 %] 96 % 97 % 99 % (04/17/21 2:19 PM) (04/17/21 4:38 AM) (04/16/21 8:28 P M) Pulse Rate [55-90 bpm] 111 bpm 91 bpm 93 bpm *H* *H* *H* (04/17/21 2:19 PM) (04/17/21 4:38 AM) (04/16/21 8:28 P M) Body Mass Index [18.5-24.99] 37.91 *>HHI* (04/13/21 2:35 AM) Blood Pressure [90-138/55-84 mm 113/70 mm Hg 125/79 mm Hg 113/70 mm Hg Hg] (04/17/21 2:19 PM) (04/17/21 8:54 AM) (04/17/21 4:38 A M) Respiratory Rate [16-30 br/min] 16 br/min 16 br/min 16 br/min (04/17/21 2:19 PM) (04/17/21 1:40 PM) (04/17/21 9:52 A M) Temperature [96.8-100.4 DegF] 97.8 DegF 98.1 DegF 98 .6 DegF (04/17/21 2:19 PM) (04/17/21 4:38 AM) (04/16/21 8:28 P M) Mode of Delivery (Oxygen) Room air Room air Room a ir (04/17/21 2:19 PM) (04/17/21 4:38 AM) (04/16/21 8:28 P M) Blood pressure sites Arm, left Arm, left Arm, right (04/17/21 2:19 PM) (04/17/21 4:38 AM) (04/16/21 8:28 P M) Temperature Route Oral Oral Oral (04/17/21 2:19 PM) (04/17/21 4:38 AM) (04/16/21 8:28 P M) Weight Obtained Via Bed scale (04/13/21 2:35 AM) Social History Social History Type Response Smoking Status Former smoker; Other: Quit 2 015; entered on: 09/10/17 Sex
--- OUTSIDE RECORDS SUMMARY | 2022-08-20 22:43 | XMS_ITS | Continuity of Care Document ---
:1970 Author Organization [facility] Address [address] [place] [address]- Care Team Providers Name Role Phone Dawna Hernandez MD Primary Care Physician Encounter [facility] Date(s): 05/10/20 - 06/09/[address] [address]- [facility] Allergies, Adverse Reactions, Alerts Substance Reaction Severity [...] 04/30/2010:59:00 EDT, Aerosol, Route to Pharmacy Electronically, [id number], [facility]/pharmacy #[id number], 165, cm, 04/30/20 10:31:00 [...] 5 Refills, Maintenance, 11/20/19 12:00:00 EST, Tablet, [facility]/pharmacy #[id number], 165, cm, 11/20/19 11:16:00 EST, Height, 97.3, kg, 10/23/19 17:43:00 EST, Dry Weight Start Date: 11/20/19 Status: Orderedomeprazole 20 mg oral delayed release tablet 1 tablet = 20 mg, By Mouth, Daily, # 30 tablet, 2 Refills, Maintenance, 05/24/20 10:57:00 EDT, EC Tablet, [facility]/pharmacy #[id number], 165, cm, 05/06/20 10:29:00 EDT, Height, 95.8, kg, 04/19/20 14:48:00 EDT, Dry Weight Start Date: 05/24/20 Status: OrderedoxyCODONE 10 mg oral tablet 1 tablet = 10 mg, By Mouth, Every 6 hours, PRN as needed for pain, dx: M54.5 on agreement masspat checked do not fill til 05/25/20, # 20 tablet, 0 Refills, Maintenance, 05/25/20 13:50:00 EDT, Tablet, [facility], Partial fill upon cedric... Start Date: 05/25/20 Status: OrderedraNITIdine 75 mg oral tablet 1 tablet = 75 mg, By Mouth, Daily, # 28 tablet, 0 Refills, Maintenance, 04/30/20 10:58:00 EDT, Tablet, [facility]/pharmacy #[id number], 165, cm, 04/30/20 10:31:00 [...] pain(Confirmed) Active Obstructive sleep apnea(Confirmed) Active Health snf, active care Active coordination [facility] [phone](Confirmed) Fatty infiltration of liver(Confirmed) Active Social History Social History Type Response Smoking Status Former smoker; Other: Quit 2 015; entered on: 09/10/17 Sex
--- OUTSIDE RECORDS SUMMARY | 2022-08-20 22:43 | XMS_ITS | Continuity of Care Document ---
:1970 Author Organization [facility] Address [address] [place] [address]- Care Team Providers Name Role Phone Dawna Hernandez MD Primary Care Physician [place] [facility] [place] Date(s): 03/11/21 - 04/10/[address] [address] Allergies, Adverse Reactions, Alerts Substance Reaction [...] 04/30/2010:59:00 EDT, Aerosol, Route to Pharmacy Electronically, [id number], [facility]/pharmacy #[id number], 165, cm, 04/30/20 10:31:00 EDT, Hei... [...] 10:26:20 EST, Compound Start Date: 11/19/18 Status: Orderedcefpodoxime 200 mg oral tablet 1 tablet = 200 mg, By Mouth, Every 12 hours, for 10 days, # 20 tablet, 0 Refills, Acute 04/18/21 4:48:00 EDT, 04/08/21 4:48:00 EDT, Tablet, [id number], Partial fill upon patient request if the prescription is for a schedule II opioid drug., 16... Start Date: 04/08/21 Stop Date: 04/18/21 Status: Orderedcetirizine 10 mg oral tablet 1 [...] tableta en la manana y noche x3ds. [place] katy tableta en la manana y tarde y antes de acostarse., # 90 capsule, Refills 1, Tot. Refills 1, Maintenan... Start Date: 01/18/21 Status: OrderedMapap Arthritis Pain 650 mg oral tablet, extended release 1 tablet = 650 mg, By Mouth, Every 8 hours, PRN as needed for pain, for 14 days, acetominophen generic, # 50 tablet, 0 Refills, Acute 04/13/21 11:23:00 EDT, 03/30/21 11:23:00 EDT, ER Tablet, [id number], Partial fill upon patient request if the... Start Date: 03/30/21 Stop Date: 04/13/21 Status: Orderedomeprazole 20 mg oral enteric coated capsule 1 capsule = 20 mg, By Mouth, Daily, # 30 capsule, 1 Refills, Maintenance, 12/14/20 10:57:00 EST, [facility]/pharmacy #[id number], Partial fill upon patient request if the prescription is for a schedule II opioid drug., 165, cm, 12/09/20 14:35:00 EST, Height, 90.5,... Start Date: 12/14/20 Stop Date: 02/12/21 Status: OrderedoxyCODONE 15 mg oral tablet 1 tablet = 15 mg, By Mouth, Every 6 hours, PRN as needed for pain, dx: M54.5 on agreement masspat checked do not fill til 03/11/21, # 56 tablet, 0 Refills, Maintenance, 03/11/21 16:55:00 EDT, Tablet, [facility]/pharmacy #[id number], Partial fill upon patient re... Start Date: 03/11/21 Stop Date: 03/25/21 Status: OrderedPAP Supplies - Mask, Tubing, Filters, Head Gear, Chin Strap, and Water Chamber PAP Supplies - Mask, Tubing, Filters, Head Gear, Chin Strap, and Water Chamber, See Instructions, # 1 each, Refills 12, Tot. Refills 12, Maintenance, to be used with CPAP machine for dx: MARIA G G47.30, 08/19/20 14:29:00 EST, Compound Start Date: 08/19/20 Status: Orderedphenazopyridine 95 mg oral tablet 1 tablet = 95 mg, By Mouth, 2 times a day, for 3 days, # 6 tablet, 0 Refills, Acute 04/11/21 4:49:00EDT, 04/08/21 4:49:00 EDT, Tablet, [facility]/pharmacy #[id number], Partial fill upon patient request if the prescription is for a schedule II opioid drug., 165, c... Start Date: 04/08/21 Stop Date: 04/11/21 Status: Orderedprazosin 2 mg oral capsule 1 [...] jail, active care Active coordination PADMINI Mata [phone](Confirmed) Fatty infiltration of liver(Confirmed) Active Tubular adenoma of colon(Confirmed) Active Social History Social History Type Response Smoking Status Former smoker; Other: Quit 2 015; entered on: 09/10/17 Sex
--- OUTSIDE RECORDS SUMMARY | 2022-08-20 22:43 | XMS_ITS | Continuity of Care Document ---
:1970 Author Organization [facility] Address [address] [place] [address]- Care Team Providers Name Role Phone Dawna Hernandez MD Primary Care Physician Encounter [facility] Date(s): 05/02/21 - 06/03/[address] [address] Attending Physician: Iram Mast MD Admitting Physician: Iram Mast MD Referring Physician: Dawna Hernandez MD Allergies, Adverse Reactions, Alerts Substance Reaction [...] 04/30/2010:59:00 EDT, Aerosol, Route to Pharmacy Electronically, [id number], [facility]/pharmacy #[id number], 165, cm, 04/30/20 10:31:00 EDT, [...] 15:43:00 EDT, Height,... Start Date: 01/20/21 Status: Orderedciprofloxacin 500 mg oral tablet 1 tablet = 500 mg, By Mouth, Every 12 hours, for 7 days, # 14 tablet, 0 Refills, Acute 06/09/21 13:03:00 EDT, 06/02/21 13:03:00 EDT, Tablet, [id number], Partial fill upon patient request if theprescription is for a schedule II opioid drug., 1... Start Date: 06/02/21 Stop Date: 06/09/21 Status: OrderedCPAP Machine See Instructions, # 1 [...] tableta en la manana y noche x3ds. [place] katy tableta en la manana y tarde y antes de acostarse., # 90 capsule, Refills 1, Tot. Refills 1, Maintenan... Start Date: 01/18/21 Status: Orderedlidocaine 5% topical film 1 patch, Topically, Daily, PRN Pain , Moderate, # 10 patch, 0 Refills, Maintenance, 04/26/21 10:38:00 EDT, Patch, [facility]/pharmacy #[id number], Partial fill upon patient request if the prescription is for a schedule II opioid drug., 1 patch Topically Daily,PRN:... Start Date: 04/26/21 Status: Orderedomeprazole 20 mg oral enteric coated capsule 1 capsule = 20 mg, By Mouth, Daily, # 30 capsule, 1 Refills, Maintenance, 12/14/20 10:57:00 EST, [id number], Partial fill upon patient request if the prescription is for a schedule II opioid drug., 165, cm, 12/09/20 14:35:00 EST, Height, 90.5,... Start Date: 12/14/20 Stop Date: 02/12/21 Status: OrderedoxyCODONE 15 mg oral tablet 1 tablet = 15 mg, By Mouth, Every 6 hours, for 14 days, MassPAT checked do not fill until 05/24/21, #56 tablet, 0 Refills, Acute 06/07/21 17:10:00 EDT, 05/24/21 17:10:00 EDT, [id number], Partial fill upon patient request if the prescription i... Start Date: 05/24/21 Stop Date: 06/07/21 Status: OrderedPAP Supplies - Mask, Tubing, Filters, [...] 10/11/20 Status: Orderedpropranolol 20 mg oral tablet 40 mg, 2, tablet, By Mouth, 2 times a day, # 120 tablet, Refills 0, Tot. Refills 0, Maintenance, 05/20/21 16:26:00 EDT, Route to Pharmacy Electronically, [facility]/pharmacy #[id number], Partial fill upon patient request if the prescription is for a schedule II op... Start Date: 05/20/21 Status: OrderedrisperiDONE 2 mg oral [...] Maintenance,04/26/21 10:39:00 EDT, Route to Pharmacy Electronically, [facility]/pharmacy #[id number], Partial fill upon patient request if the [...] Health snf, active care Active coordination PADMINI Mata [phone](Confirmed) Fatty infiltration of liver(Confirmed) Active Tubular adenoma of colon(Confirmed) Active Social History Social History Type Response Smoking Status Former smoker; Other: Quit 2 015; entered on: 09/10/17 Sex
--- OUTSIDE RECORDS SUMMARY | 2022-08-20 22:43 | XMS_ITS | Continuity of Care Document ---
:1970 Author Organization [facility] Address [address] [place] [address]- Care Team Providers Name Role Phone Dawna Hernandez MD Primary Care Physician [place] [facility] [place] Date(s): 11/12/19 - 11/22/[address] [address]- [facility] Attending Physician: AdmJens [email or web address] Admitting Physician: Admtr, Ar8 Referring Physician: Admtr, Ar8 Allergies, Adverse Reactions, Alerts Substance Reaction Severity [...] Maintenance, 189:52:06, Aerosol, Route to Pharmacy Electronically, [id number], [facility] [id number], Compound Start Date: 11/21/17 Status: OrderedAlcohol Wipes See Instructions, # 1 box, Maintenance, please use before testing three times a day: dx type 2 diabetes, 04/04/18 18:52:53 EDT, Compound Start Date: 04/04/18 Status: Orderedatorvastatin 20 mg oral tablet 1 tablet = 20 mg, By Mouth, Daily, # 30 tablet, 5 Refills, Maintenance, 10/29/19 9:49:00 EST, Tablet, [facility]/pharmacy #[id number], 165, cm, 10/24/19 14:26:00 EST, Height, 97.3, kg, 10/23/19 17:43:00 EST, Dry Weight Start Date: 10/29/19 Status: OrderedBack Brace See Instructions, # 1 [...] tablet, Refills 0, Tot. Refills 0, Maintenance, 10/29/19 9:49:00 EST, Route to Pharmacy Electronically, [facility]/pharmacy #[id number], 165, cm, 10/24/19 14:26:00EST, Height, 97.3, kg, 10/23/19 17:43:00 EST, Dry... Start Date: 10/29/19 Status: OrderedFLUoxetine 20 mg oral capsule 60 [...] Date: 11/19/18 Stop Date: 12/19/18 Status: Orderedgabapentin 800 mg oral tablet 1 tablet = 800 mg, By Mouth, 3 times a day, # 90 tablet, 5 Refills, Maintenance, 11/20/19 12:00:00 EST, Tablet, [facility]/pharmacy #[id number], 165, cm, 11/20/19 11:16:00 EST, Height, 97.3, kg, 10/23/19 17:43:00 EST, Dry Weight Start Date: 11/20/19 Status: OrderedNaprosyn 500 mg oral tablet 1 tablet = 500 mg, By Mouth, 2 times a day, # 60 tablet, 1 Refills, Maintenance, 11/20/19 11:59:00 EST, Tablet, [facility]/pharmacy #[id number], 165, cm, 11/20/19 11:16:00 EST, Height, 97.3, kg, 10/23/19 17:43:00 EST, Dry Weight Start Date: 11/20/19 Status: OrderedrisperiDONE 1 mg oral tablet 1 [...] Tot. Refills 0, Maintenance, asneeded for dyspepsia, 10/29/19 9:49:00 EST, Route to Pharmacy Electronically, [facility]/pharmacy #[id number], 165, cm, 10/24/19 14:26:00 EST, Height, 97.3, kg, 01... Start Date: 10/29/19 Status: OrderedWalker See Instructions, # 1 units, Maintenance, Use as dircted, 07/05/19 14:32:18 EDT, Compound Start Date: 07/05/19 Status: Ordered Problem List Condition Effective Dates Status Health Status Informant Cellulitis of knee, right(Confirmed) Active Chest pain(Confirmed) Active Chest pain(Confirmed) Active Diabetes(Confirmed) Active GERD (gastroesophageal reflux Active disease)(Confirmed) Hyperlipidemia(Confirmed) Active Lower back pain(Confirmed) Active Obstructive sleep apnea(Confirmed) Active Health long-term, active care Active coordination PADMINI Mata [phone](Confirmed) Septic prepatellar bursitis of right Active knee(Confirmed) Septic prepatellar bursitis of left Active knee(Confirmed) Fatty infiltration of liver(Confirmed) Active Social History Social History Type Response Smoking Status Former smoker; Other: Quit 2 015; entered on: 09/10/17 Sex
--- OUTSIDE RECORDS SUMMARY | 2022-08-20 22:43 | XMS_ITS | Continuity of Care Document ---
:1970 Author Organization [facility] Address [address] [place] [address]- Care Team Providers Name Role Phone Dawna Hernandez MD Primary Care Physician [place] [facility] [place] - 01/12/[address] [address] [place] Attending Physician: Lori Patton Admitting Physician: AdmtrLori Referring Physician: AdmtrLori Allergies, Adverse Reactions, Alerts Substance Reaction Severity [...] Maintenance, 189:52:06, Aerosol, Route to Pharmacy Electronically, [id number], [facility] [id number], Compound Start Date: 11/21/17 Status: OrderedAlcohol Wipes See Instructions, # 1 box, Maintenance, please use before testing three times a day: dx type 2 diabetes, 04/04/18 18:52:53 EDT, Compound Start Date: 04/04/18 Status: Orderedatorvastatin 20 mg oral tablet 1 tablet = 20 mg, By Mouth, Daily, # 30 tablet, 5 Refills, Maintenance, 10/29/19 9:49:00 EST, Tablet, [facility]/pharmacy #[id number], 165, cm, 10/24/19 14:26:00 EST, Height, [...] tablet 20 mg, 1, tablet, By Mouth, 2 times a day, # 20 tablet, Refills 0, Tot. Refills 0, Maintenance, 01/02/20 15:07:00 EDT, Route to Pharmacy Electronically, [facility]/pharmacy #[id number], 165, cm, 12/23/19 9:38:00 EDT, Height, 93.2, kg, 12/17/19 11:27:00 EST, Dry We... Start Date: 01/02/20 Stop Date: 01/12/20 Status: OrderedFLUoxetine 20 mg oral capsule 60 [...] 5 Refills, Maintenance, 11/20/19 12:00:00 EST, Tablet, [facility]/pharmacy #[id number], 165, cm, 11/20/19 11:16:00 EST, Height, 97.3, kg, 10/23/19 17:43:00 EST, Dry Weight Start Date: 11/20/19 Status: OrderedNaprosyn 500 mg oral tablet 1 tablet = 500 mg, By Mouth, 2 times a day, # 60 tablet, 1 Refills, Maintenance, 11/20/19 11:59:00 EST, Tablet, [facility]/pharmacy #[id number], 165, cm, 11/20/19 11:16:00 EST, Height, 97.3, kg, 10/23/19 17:43:00 EST, Dry Weight Start Date: 11/20/19 Status: Orderedondansetron 8 mg oral tablet, disintegrating 1 tablet = 8 mg, By Mouth, 3 times a day, # 9 tablet, 0 Refills, Maintenance, 01/02/20 15:06:00 EDT,DIS Tablet, [facility]/pharmacy #[id number], 165, cm, 12/23/19 9:38:00 EDT, Height, 93.2, kg, 12/17/19 11:27:00 EST, Dry Weight Start Date: 01/02/20 Status: OrderedrisperiDONE 1 mg oral tablet 1 mg, 1, tablet, By Mouth, Daily, Maintenance, 06/30/19 17:19:13 EDT Start Date: 06/30/19 Status: OrderedrisperiDONE 2 mg oral tablet 2 mg, 1, tablet, By Mouth, Daily at bedtime, Rx'd by psychiatry, Maintenance, 01/28/19 20:39:47 EDT Start Date: 01/28/19 Status: OrderedTums 500 mg oral tablet, chewable 500 mg, 1, tablet, Chew, 2 times a day, PRN, # 45 tablet, Refills 0, Tot. Refills 0, Maintenance, asneeded for dyspepsia, 12/23/19 10:09:00 EDT, Route to Pharmacy Electronically, [facility]/pharmacy #[id number], 165, cm, 12/23/19 9:38:00 EDT, Height, 93.2, kg, 03... Start Date: 12/23/19 Stop Date: 01/02/20 Status: OrderedWalker See Instructions, # 1 units, Maintenance, Use as dircted, 07/05/19 14:32:18 EDT, Compound Start Date: 07/05/19 Status: Ordered Problem List Condition Effective Dates Status Health Status Informant Cellulitis of knee, right(Confirmed) Active Chest pain(Confirmed) Active Chest pain(Confirmed) Active Diabetes(Confirmed) Active GERD (gastroesophageal reflux Active disease)(Confirmed) Hyperlipidemia(Confirmed) Active Lower back pain(Confirmed) Active Obstructive sleep apnea(Confirmed) Active [facility], active care Active coordination PADMINI Mata [phone](Confirmed) Septic prepatellar bursitis of right Active knee(Confirmed) Septic prepatellar bursitis of left Active knee(Confirmed) Fatty infiltration of liver(Confirmed) Active Social History Social History Type Response Smoking Status Former smoker; Other: Quit 2 015; entered on: 09/10/17 Sex
--- OUTSIDE RECORDS SUMMARY | 2022-08-20 22:43 | XMS_ITS | Continuity of Care Document ---
:1970 Author Organization [facility] Address [address] [place] [address]- Care Team Providers Name Role Phone Dawna Hernandez MD Primary Care Physician [place] [facility] [place]20 - 09/22/[address] [address]- Encounter Diagnosis COVID-19 virus infection (Final) - 09/22/20 Nausea and vomiting (Final) - 09/22/20 Discharge Disposition: A-D/C Home Attending Physician: Jair Alvarado MD Admitting Physician: Jair Alvarado MD Referring Physician: Not on Staff, Referring [...] 04/30/2010:59:00 EDT, Aerosol, Route to Pharmacy Electronically, [id number], [facility]/pharmacy #[id number], 165, cm, 04/30/20 10:31:00 EDT, Hei... Start Date: 04/30/20 Status: OrderedAlcohol Wipes See Instructions, # 1 box, Maintenance, please use before testing three times a day: dx type 2 diabetes, 04/04/18 18:52:53 EDT, Compound Start Date: 04/04/18 Status: Orderedatorvastatin 20 mg oral tablet 1 tablet = 20 mg, By Mouth, Daily, # 30 tablet, 5 Refills, Maintenance, 04/30/20 10:59:00 EDT, Tablet, [facility]/pharmacy #[id number], 165, cm, 04/30/20 10:31:00 EDT, [...] day, # 90 tablet, 5 Refills, Maintenance, 06/25/20 8:44:00 EDT, Tablet, [facility], 165, cm, 06/19/20 3:51:00 EDT, Height, 95.8, kg, 06/17/20 2:50:00 EDT, Dry Weight Start Date: 06/25/20 Status: OrderedHibiclens 4% soap 1 applicator, Topically, Daily, Please use to cleanse left knee daily when showering, # 960 mL, 0 Refills, Soft Stop, 06/20/20 14:06:00 EDT, [facility], 1 applicator Topically Daily,Instr:Please use to cleanse left knee daily when shower... Start Date: 06/20/20 Status: Orderedlidocaine 5% topical film 1 patch, Topically, Daily, remove patches after 12 hours, # 30 patch, 0 Refills, Maintenance, 09/01/20 18:04:00 EST, [facility]/pharmacy #[id number], Partial fill upon patient request, 1 patch Topically Daily,x30 days,Instr:remove patches after 12 hours, 165, cm,... Start Date: 09/01/20 Stop Date: 10/01/20 Status: Orderedomeprazole 20 mg oral delayed release tablet 1 tablet = 20 mg, By Mouth, Daily, # 30 tablet, 2 Refills, Maintenance, 05/24/20 10:57:00 EDT, EC Tablet, [facility]/pharmacy #[id number], 165, cm, 05/06/20 10:29:00 EDT, Height, 95.8, kg, 04/19/20 14:48:00 EDT, Dry Weight Start Date: 05/24/20 Status: Orderedondansetron 4 mg oral tablet, disintegrating 1 tablet = 4 mg, By Mouth, Every 6 hours, PRN as needed for nausea/vomiting, # 12 tablet, 0 Refills,Maintenance, 09/22/20 20:43:00 EST, DIS Tablet, [facility]/pharmacy #[id number], Partial fill upon patient request if the prescription is for a schedule II opioid... Start Date: 09/22/20 Stop Date: 09/25/20 Status: OrderedoxyCODONE 15 mg oral tablet 1 tablet = 15 mg, By Mouth, Every 6 hours, PRN as needed for pain, dx: M54.5 on agreement masspat checked do not fill til 09/13/20, # 56 tablet, 0 Refills, Maintenance, 09/13/20 13:37:00 EST, Tablet, [facility]/pharmacy #[id number], Partial fill upon patient r... Start Date: [...] 14:29:00 EST, Compound Start Date: 08/19/20 Status: OrderedrisperiDONE 2 mg oral tablet 2 [...] pain(Confirmed) Active Obstructive sleep apnea(Confirmed) Active Health half-way, active care Active coordination Netta Cruz [facility] [phone](Confirmed) Fatty infiltration of liver(Confirmed) Active Tubular adenoma of colon(Confirmed) Active Vital Signs Most recent to oldest 1 2 3 [Reference Range]: Oxygen Saturation [94-100 %] 97 % 98 % 99 % (09/22/20 9:01 PM) (09/22/20 4:23 PM) (09/22/20 4:1 5 PM) Pulse Rate [55-90 bpm] 92 bpm 98 bpm 127 bpm *H* *H* *H* (09/22/20 9:01 PM) (09/22/20 4:23 PM) (09/22/20 4:1 5 PM) Blood Pressure [90-138/55-84 mm 138/83 mm Hg 134/93 mm Hg Hg] (09/22/20 9:01 PM) (09/22/20 4:23 PM) Respiratory Rate [16-30 br/min] 22 br/min 16 br/min (09/22/20 9:01 PM) (09/22/20 4:23 PM) Temperature [96.8-100.4 DegF] 97.5 DegF (09/22/20 4:23 PM) Mode of Delivery (Oxygen) Room air Room air Room a ir (09/22/20 9:01 PM) (09/22/20 4:23 PM) (09/22/20 4:1 5 PM) Blood pressure sites Arm, left Arm, right (09/22/20 9:01 PM) (09/22/20 4:23 PM) Temperature Route Oral (09/22/20 4:23 PM) Social History Social History Type Response Smoking Status Former smoker; Other: Quit 2 015; entered on: 09/10/17 Sex
--- OUTSIDE RECORDS SUMMARY | 2022-08-20 22:43 | XMS_ITS | Continuity of Care Document ---
:1970 [address] [facility] Address [address] [place] [address]- Care Team Providers Name Role Phone Mirta Farnsworth NP Primary Care Physician Encounter [facility] [place] Date(s): 12/09/21 - 01/08/[address] [address] Attending Physician: Not on Staff, Attending MD Referring Physician: Mirta Farnsworth NP Allergies, Adverse Reactions, Alerts Substance Reaction Severity Status lisinopril Angioedema Active Shrimp Active Immunizations Given and Recorded Vaccine Date Status Refusal Reason SARS-CoV-2 mRNA ([id number]) vax 12/28/21 Given influenza virus vaccine, inactivated 09/01/20 Given influenza virus vaccine, inactivated 09/15/19 Given influenza virus vaccine, inactivated 11/19/18 Given influenza virus vaccine, inactivated 09/10/17 Given influenza virus vaccine, inactivated 12/06/15 Given tetanus/diphtheria/pertussis, acel(Tdap) 03/29/19 Given tetanus/diphtheria/pertussis, acel(Tdap) 09/10/17 Given pneumococcal 23-valent vaccine 04/08/18 Recorded pneumococcal 23-valent vaccine 04/22/17 Recorded pneumococcal 23-valent vaccine 12/21/12 Given Medications Aerochamber See Instructions, # 1 each, Maintenance, as instructed, 11/21/17 9:52:57, Compound Start Date: 11/21/17 Status: Orderedalbuterol CFC free 90 mcg/inh inhalation aerosol 2, puffs, Inhalation, Every 6 hours, PRN, # 1 each, Refills 6, Tot. Refills 6, Maintenance, 04/30/2010:59:00 EDT, Aerosol, Route to Pharmacy Electronically, [id number], [facility]/pharmacy #[id number], 165, cm, 04/30/20 10:31:00 EDT, Hei... Start Date: 04/30/20 Status: OrderedAlcohol Wipes See Instructions, # 1 box, Maintenance, please use before testing three times a day: dx type 2 diabetes, 04/04/18 18:52:53 EDT, Compound Start Date: 04/04/18 Status: Orderedatorvastatin 20 mg oral tablet 1 tablet = 20 mg, By Mouth, Daily at bedtime, # 30 tablet, 5 Refills, Maintenance, 01/20/21 16:26:00EDT, Tablet, [facility]/pharmacy #[id number], 164, cm, 01/20/21 15:43:00 EDT, Height, [...] tablet = 10 mg, By Mouth, Daily, PRN itch, # 30 tablet, 0 Refills, Maintenance, 12/01/21 10:36:00 EST, Tablet, [facility]/pharmacy #[id number], RX in [place]., 165, cm, 08/09/21 9:47:00 EDT, Height, 98.5, kg, 08/13/21 8:29:00 EDT, Dry Weight Start Date: 12/01/21 Status: OrderedCPAP Machine See Instructions, # 1 [...] 01/27/21 Status: Orderedgabapentin 300 mg oral capsule 600 mg, 2, capsule, By Mouth, 3 times a day, # 180 capsule, Refills 0, Tot. Refills 0, Maintenance, 12/25/21 14:04:00 EDT, Route to Pharmacy Electronically, [facility], Partial fill upon patient request if the prescription is for a sched... Start Date: 12/25/21 Status: Orderedlidocaine 5% topical film 1 patch, Topically, Daily, PRN Pain , Moderate, # 10 patch, 0 Refills, Maintenance, 04/26/21 10:38:00 EDT, Patch, [facility]/pharmacy #[id number], Partial fill upon patient request if the prescription is for a schedule II opioid drug., 1 patch Topically Daily,PRN:... Start Date: 04/26/21 Status: Orderednaproxen 500 mg oral tablet 1 tablet = 500 mg, By Mouth, 2 times a day, for 30 days, # 60 tablet, 0 Refills, Acute 01/27/22 10:52:00 EDT, 12/28/21 10:52:00 EDT, Tablet, [facility]/pharmacy #[id number], Partial fill upon patient request if theprescription is for a schedule II opioid drug., 1... Start Date: 12/28/21 Stop Date: 01/27/22 Status: Orderedomeprazole 20 mg oral enteric coated capsule 1 capsule = 20 mg, By Mouth, Daily, # 30 capsule, 1 Refills, Maintenance, 12/14/20 10:57:00 EST, [facility]/pharmacy #[id number], Partial fill upon patient request if the prescription is for a schedule II opioid drug., 165, cm, 12/09/20 14:35:00 EST, Height, 90.5,... Start Date: 12/14/20 Stop Date: 02/12/21 Status: OrderedoxyCODONE 15 mg oral tablet 1 tablet = 15 mg, By Mouth, Every 6 hours, for 28 days, MassPAT checked, # 112 tablet, 0 Refills, Acute 01/11/22 9:46:00 EDT, 12/14/21 9:46:00 EST, [facility]/pharmacy #[id number], Partial fill upon patient requestif the prescription is for a schedule II opioid d... Start Date: 12/14/21 Stop Date: 01/11/22 Status: OrderedPAP Supplies - Mask, Tubing, Filters, Head Gear, Chin Strap, and Water Chamber PAP Supplies - Mask, Tubing, Filters, Head Gear, Chin Strap, and Water Chamber, See Instructions, # 1 each, Refills 12, Tot. Refills 12, Maintenance, to be used with CPAP machine for dx: MARIA G G47.30, 08/19/20 14:29:00 EST, Compound Start Date: 08/19/20 Status: Orderedpolyethylene glycol 3350 oral powder for reconstitution = 17 Gm, By Mouth, Daily, PRN Constipation, dissolve in water before taking, # 255 Gm, 0 Refills, Maintenance, 12/25/21 14:05:00 EDT, REC Powder, [facility], Partial fill upon patient request if the prescription is for a schedule II opio... Start Date: 12/25/21 Status: Orderedprazosin 2 mg oral capsule 1 capsule = 2 mg, By Mouth, Daily, # 90 capsule, 0 Refills, Maintenance, 10/11/20 3:29:00 EST, Capsule, Partial fill upon patient request if the prescription is for a schedule II opioid drug. Start Date: 10/11/20 Status: Orderedpropranolol 20 mg oral tablet 2, tablet, By Mouth, 2 times a day, # 120 tablet, Refills 5, Route to Pharmacy Electronically, [id number], 166, cm, 12/28/21 10:33:00 EDT, Height, 91.9, kg, 12/19/21 12:48:00 EST, Dry Weight Start Date: 01/06/22 Status: OrderedrisperiDONE 2 mg oral tablet 4 [...] Maintenance,04/26/21 10:39:00 EDT, Route to Pharmacy Electronically, [facility]/pharmacy #[id number], Partial fill upon patient request if the prescription is for a schedule I... Start Date: 04/26/21 Stop Date: 05/03/21 Status: OrderedWalker See Instructions, # 1 units, Maintenance, Use as dircted, 07/05/19 14:32:18 EDT, Compound Start Date: 07/05/19 Status: Ordered Problem List Condition Effective Dates Status Health Status Informant Chest pain(Confirmed) Active Chest pain(Confirmed) Active COVID-19(Confirmed) Active COVID-19(Confirmed) Active Depression(Confirmed) Active Diabetes(Confirmed) Active Controlled substance agreement signed Active 12/28/2021(Confirmed) GERD (gastroesophageal reflux Active disease)(Confirmed) Hyperlipidemia(Confirmed) Active Lower back pain(Confirmed) Active Obese class I(Confirmed) Active Obstructive sleep apnea(Confirmed) Active Health correction, active care Active coordination PADMINI Mata [phone](Confirmed) Fatty infiltration of liver(Confirmed) Active Tubular adenoma of colon(Confirmed) Active Social History Social History Type Response Smoking Status Former smoker; Other: Quit 2 015; entered on: 09/10/17 Sex
--- OUTSIDE RECORDS SUMMARY | 2022-08-20 22:43 | XMS_ITS | Continuity of Care Document ---
:1970 Author Organization [facility] Address [address] [place] [id number]- Care Team Providers Name Role Phone Dawna Hernandez MD Primary Care Physician Encounter [facility] Date(s): 06/16/20 - 06/20/[address] [address]- [facility] Encounter Diagnosis Prepatellar bursitis of left knee (Final) - 06/16/20 Septic prepatellar bursitis of left knee (Discharge Diagnosis) - 06/18/20 Discharge Disposition: A-D/C Home Attending Physician: Kurt Cantu MD Admitting Physician: Kurt Cantu MD Referring Physician: Not on Staff, Referring [...] Given pneumococcal 23-valent vaccine 12/21/12 Given Medications acetaminophen 325 mg oral tablet 650 mg, By Mouth, Every 6 hours, # 60 tablet, Refills 0, Tot. Refills 0, Acute 06/27/20 13:59:00 EDT, 06/20/20 13:59:00 EDT, Route to Pharmacy Electronically, [facility], 165, cm, 06/19/20 3:51:00 EDT, Height, 95.8, kg, 06/17/20 2:50:00... Start Date: 06/20/20 Stop Date: 06/27/20 Status: OrderedAerochamber See Instructions, # 1 each, Maintenance, as instructed, 11/21/17 9:52:57, Compound Start Date: 11/21/17 Status: Orderedalbuterol CFC free 90 mcg/inh inhalation aerosol 2, puffs, Inhalation, Every 6 hours, PRN, # 1 each, Refills 6, Tot. Refills 6, Maintenance, 04/30/2010:59:00 EDT, Aerosol, Route to Pharmacy Electronically, [id number], [facility]/pharmacy #[id number], 165, cm, 04/30/20 10:31:00 EDT, Hei... Start Date: 04/30/20 Status: OrderedAlcohol Wipes See Instructions, # 1 box, Maintenance, please use before testing three times a day: dx type 2 diabetes, 04/04/18 18:52:53 EDT, Compound Start Date: 04/04/18 Status: Orderedaspirin 325 mg oral delayed release tablet 325 mg, 1, tablet, By Mouth, Daily, # 30 tablet, Refills 0, Tot. Refills 0, Maintenance, 06/20/20 14:06:00 EDT, Route to Pharmacy Electronically, [facility], 165, cm, 06/19/20 3:51:00 EDT, Height, 95.8, kg, 06/17/20 2:50:00 EDT, Dry Weight Start Date: 06/20/20 Status: Orderedatorvastatin 20 mg oral tablet 1 tablet = 20 mg, By Mouth, Daily, # 30 tablet, 5 Refills, Maintenance, 04/30/20 10:59:00 EDT, Tablet, [facility]/pharmacy [...] EST, Dry Weight Start Date: 11/20/19 Status: OrderedHibiclens 4% soap 1 applicator, Topically, Daily, Please use to cleanse left knee daily when showering, # 960 mL, 0 Refills, Soft Stop, 06/20/20 14:06:00 EDT, [facility], 1 applicator Topically Daily,Instr:Please use to cleanse left knee daily when shower... Start Date: 06/20/20 Status: OrderedlevoFLOXacin 500 mg oral tablet 1 tablet = 500 mg, By Mouth, Every 24 hours, for 14 days, # 14 tablet, 0 Refills, Acute 07/04/20 13:59:00 EDT, 06/20/20 13:59:00 EDT, Tablet, [facility], 165, cm, 06/19/20 3:51:00 EDT, Height, 95.8, kg, 06/17/20 2:50:00 EDT, Dry Weight Start Date: 06/20/20 Stop Date: 07/04/20 Status: Orderedomeprazole 20 mg oral delayed release tablet 1 tablet = 20 mg, By Mouth, Daily, # 30 tablet, 2 Refills, Maintenance, 05/24/20 10:57:00 EDT, EC Tablet, [facility]/pharmacy #[id number], 165, cm, 05/06/20 10:29:00 EDT, Height, 95.8, kg, 04/19/20 14:48:00 EDT, Dry Weight Start Date: 05/24/20 Status: OrderedoxyCODONE 5 mg oral tablet See Instructions, PRN, Take 1-2 tablets By Mouth Every 3-6 hours, # 60 tablet, Refills 0, Tot. Refills 0, Acute 06/27/20 13:59:00 EDT, as needed for pain, 06/20/20 13:59:00 EDT, Instructions Replace Required Details, Route to Pharmacy Electronically,... Start Date: 06/20/20 Stop Date: 06/27/20 Status: OrderedraNITIdine 75 mg oral tablet 1 tablet = 75 mg, By Mouth, Daily, # 28 tablet, 0 Refills, Maintenance, 04/30/20 10:58:00 EDT, Tablet, [id number], 165, cm, 04/30/20 [...] 17:13:00 EDT, Supply Start Date: 01/29/20 Status: OrderedAnselmo See Instructions, # 1 each, Maintenance, Dx: septic prepatellar bursitis, 06/18/20 11:09:00 EDT, Supply Start Date: 06/18/20 Status: Nell See Instructions, # 1 units, Maintenance, Use as dircted, 07/05/19 14:32:18 EDT, Compound Start Date: 07/05/19 Status: Ordered Problem List Condition Effective Dates Status Health Status Informant Chest pain(Confirmed) Active Chest pain(Confirmed) Active Diabetes(Confirmed) Active Controlled substance agreement signed Active 02/03/20(Confirmed) GERD (gastroesophageal reflux Active disease)(Confirmed) Hyperlipidemia(Confirmed) Active Lower back pain(Confirmed) Active Obstructive sleep apnea(Confirmed) Active Health intermediate, active care Active coordination PADMINI Nancy Esperanza [phone](Confirmed) Fatty infiltration of liver(Confirmed) Active Diagnosis Diagnosis Type Effective Dates Health Clinical Infor mant Status Service Septic prepatellar Discharge 06/18/20 Non-Specified bursitis of left Diagnosis knee Results Orders for Microbiology Reports Name Date Anaerobic Culture (ANAEROBIC CULTURE) 06/17/20 Anaerobic Culture (ANAEROBIC CULTURE) 06/17/20 Sterile Body Fluid Culture W/ Gram Smear (STERILE FLUI D CULT.) 06/17/20 Tissue Culture w/ Gram Smear (TISSUE/BIOPSY CULT.) 06/17 Anaerobic Culture (Culture Anaerobic) 06/16/20 Sterile Body Fluid Culture W/ Gram Smear (Culture Ster ile Body Fluid w/ Gram 06/16/20 Smear) Blood Culture 06/16/20 Blood Culture #2 06/16/20 Microbiology Reports TEST:Anaerobic Culture STATUS:Unauthenticated BODY SITE: SOURCE:TISSUE1 COLLECTED DATE/TIME:06/17/20 4:11 PMAnaerobic Culture SPECIMEN DESCRIPTION : TISSUE PRE PATELLAR BURSA SPECIAL REQUESTS : NONE CULTURE : NO ANAEROBES ISOLATED SO FAR. REPORT STATUS : PRELIMINARY REPORT TEST:Anaerobic Culture STATUS:Unauthenticated BODY SITE: SOURCE:JOINT COLLECTED DATE/TIME:06/17/20 4:11 PMAnaerobic Culture SPECIMEN DESCRIPTION : JOINT FLUID LEFT KNEE LIMVOL SPECIAL REQUESTS : NONE CULTURE : NO ANAEROBES ISOLATED SO FAR. REPORT STATUS : PRELIMINARY REPORT TEST:Tissue/Biopsy Culture STATUS:Auth (Verified) BODY SITE: SOURCE:TISSUE1 COLLECTED DATE/TIME:06/17/20 4:11 PMTissue/Biopsy Culture SPECIMEN DESCRIPTION : TISSUE PRE PATELLAR BURSA SPECIAL REQUESTS : NONE GRAM STAIN : 4+ POLYMORPHONUCLEAR LEUKOCYTES NO ORGANISMS SEEN CULTURE : 2+ KLEBSIELLA PNEUMONIAE 2+ CITROBACTER FREUNDII 3+ STREPTOCOCCUS VIRIDANS SPECIES. SUSCEPTIBILITY TESTING NOT ROUTINELY PERFORMED ON THIS ISOLATE. REPORT STATUS : FINAL 06/20/2020 ORGANISM 2+ KLEBSIELLA PNEUMONIAE METHOD MIN. INHIB. CONC. (MCG/ML) AMPICILLIN RESISTANT AMPICILLIN/SULBACTAM SUSCEPTIBLE AMOXICILLIN/CLAVULAN SUSCEPTIBLE CEFAZOLIN RESISTANT CEFEPIME SUSCEPTIBLE CEFTRIAXONE SUSCEPTIBLE CIPROFLOXACIN SUSCEPTIBLE ERTAPENEM SUSCEPTIBLE GENTAMICIN SUSCEPTIBLE LEVOFLOXACIN SUSCEPTIBLE MEROPENEM SUSCEPTIBLE PIPERACILLIN/TAZOBAC SUSCEPTIBLE TRIMETH/SULFAMETHOX SUSCEPTIBLE TETRACYCLINE SUSCEPTIBLE ORGANISM 2+ CITROBACTER FREUNDII METHOD MIN. INHIB. CONC. (MCG/ML) AMPICILLIN RESISTANT AMPICILLIN/SULBACTAM RESISTANT AMOXICILLIN/CLAVULAN RESISTANT CEFAZOLIN RESISTANT CEFEPIME SUSCEPTIBLE CEFTRIAXONE SUSCEPTIBLE CIPROFLOXACIN SUSCEPTIBLE ERTAPENEM SUSCEPTIBLE GENTAMICIN SUSCEPTIBLE LEVOFLOXACIN SUSCEPTIBLE MEROPENEM SUSCEPTIBLE PIPERACILLIN/TAZOBAC SUSCEPTIBLE TRIMETH/SULFAMETHOX SUSCEPTIBLE TETRACYCLINE SUSCEPTIBLETEST:Sterile Fluid Culture STATUS:Auth (Verified) BODY SITE: SOURCE:JOINT COLLECTED DATE/TIME:06/17/20 4:11 PMSterile Fluid Culture SPECIMEN DESCRIPTION : JOINT FLUID LEFT KNEE LIMVOL SPECIAL REQUESTS : NONE GRAM STAIN : 1+ WHITE BLOOD CELLS NO ORGANISMS SEEN CULTURE : NO GROWTH 2 DAYS REPORT STATUS : FINAL 06/20/2020TEST:Anaerobic Culture STATUS:Unauthenticated BODY SITE: SOURCE:JOINT COLLECTED DATE/TIME:06/16/20 4:23 PMAnaerobic Culture SPECIMEN DESCRIPTION : JOINT FLUID KNEE LT SPECIAL REQUESTS : NONE CULTURE : NO ANAEROBES ISOLATED SO FAR. REPORT STATUS : PRELIMINARY REPORT TEST:Sterile Fluid Culture STATUS:Unauthenticated BODY SITE: SOURCE:JOINT COLLECTED DATE/TIME:06/16/20 4:23 PMSterile Fluid Culture SPECIMEN DESCRIPTION : JOINT FLUID KNEE LT SPECIAL REQUESTS : NONE GRAM STAIN : 4+ POLYMORPHONUCLEAR LEUKOCYTES 3+ GRAM POSITIVE COCCI 1+ GRAM NEGATIVE RODS CRITICAL VALUE CALLED AND VERIFIED BY READBACK FOR: GRAM STAIN CALLED TO [id number], ED, ON 06/16/2020 AT 23:11 BY [employer] [id number] CULTURE : 2+ CITROBACTER FREUNDII 2+ KLEBSIELLA PNEUMONIAE 4+ STREPTOCOCCUS VIRIDANS SPECIES ORGANISM 2+ CITROBACTER FREUNDII METHOD MIN. INHIB. CONC. (MCG/ML) AMPICILLIN RESISTANT AMPICILLIN/SULBACTAM RESISTANT AMOXICILLIN/CLAVULAN RESISTANT CEFAZOLIN RESISTANT CEFEPIME SUSCEPTIBLE CEFTRIAXONE SUSCEPTIBLE CIPROFLOXACIN SUSCEPTIBLE ERTAPENEM SUSCEPTIBLE GENTAMICIN SUSCEPTIBLE LEVOFLOXACIN SUSCEPTIBLE MEROPENEM SUSCEPTIBLE PIPERACILLIN/TAZOBAC SUSCEPTIBLE TRIMETH/SULFAMETHOX SUSCEPTIBLE TETRACYCLINE SUSCEPTIBLE ORGANISM 2+ KLEBSIELLA PNEUMONIAE METHOD MIN. INHIB. CONC. (MCG/ML) AMPICILLIN RESISTANT AMPICILLIN/SULBACTAM SUSCEPTIBLE AMOXICILLIN/CLAVULAN SUSCEPTIBLE CEFAZOLIN SUSCEPTIBLE CEFEPIME SUSCEPTIBLE CEFTRIAXONE SUSCEPTIBLE CIPROFLOXACIN SUSCEPTIBLE ERTAPENEM SUSCEPTIBLE GENTAMICIN SUSCEPTIBLE LEVOFLOXACIN SUSCEPTIBLE MEROPENEM SUSCEPTIBLE PIPERACILLIN/TAZOBAC SUSCEPTIBLE TRIMETH/SULFAMETHOX SUSCEPTIBLE TETRACYCLINE SUSCEPTIBLE REPORT STATUS : PRELIMINARY REPORT TEST:Blood Culture STATUS:Unauthenticated BODY SITE: SOURCE:Blood COLLECTED DATE/TIME:06/16/20 3:48 PMBlood Culture SPECIMEN DESCRIPTION : BLOOD R HAND SPECIAL REQUESTS : NONE CULTURE : NO GROWTH 4 DAYS REPORT STATUS : PRELIMINARY REPORT TEST:Blood Culture, Second Order STATUS:Unauthenticated BODY SITE: SOURCE:Blood COLLECTED DATE/TIME:06/16/20 3:02 PMBlood Culture, Second Order SPECIMEN DESCRIPTION : BLOOD L AC SPECIAL REQUESTS : NONE CULTURE : NO GROWTH 4 DAYS REPORT STATUS : PRELIMINARY REPORT Radiology Reports Exam Date Time Procedure Performing Provider Status 06/16/20 3:21 PM Knee 1 or 2 Views Left RocioclementineAma loza; Auth ( Verified) Notes:(Knee 1 or 2 Views Left) Reason For Exam: with Pain;InfectionRESULT: Knee 1 or 2 Views Left Knee 1 or 2 Views Right, Knee 1 or 2 Views Left, 2 views of both knees. Hx of Present Illness: Pt comes in for L knee pain and swelling . Pt had the R knee operated on in the spring and took fluid out. Pt has had multiple reoccurent infection in both knees and feels like another one is coming in the L knee. Fever of 102, N V D.; Reason: Infection; with Pain; Clinical Question(s): Osteomyelitis COMPARISON: Left knee, 11/06/2017 and right knee, 04/20/2020. 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 There is no evidence of acute or healing fracture, dislocation or bone lesion. No arthritic changes. No osteochondral defects or intra-articular loose bodies. Soft tissue thickening of the anterior infrapatellar right knee, somewhat improved from the most recent comparison. Soft tissue thickening of the anterior infrapatellar left knee, worsened with possible air lucenciesconcerning for infection/bursitis. IMPRESSION: 1. Increased soft tissue thickening of the anterior infrapatellar left knee concerning for infection/bursitis. 2. Improved anterior patella thickening of the right knee. A [place] message has been communicated via the [employer] system on 06/16/2020 3:31 PM, Message ID [id number]. WSN: [id number] Ordering Physician: Luis Guzmán Dictated By: Janak Arcos MD Dictated Date/Time: 06/16/20 3:31 pm Reviewed By: Janak Arcos MD Signed By: Janak Arcos MD Signed Date/Time: 06/16/20 3:31 pm Transcribed By: HARPAL Transcribed Date/Time: 06/16/20 3:23 pm Exam Date Time Procedure Performing Provider Status 06/16/20 3:21 PM Knee 1 or 2 Views Right Ama Naqvi; July (Verified) Notes:(Knee 1 or 2 Views Right) Reason For Exam: with Pain;InfectionRESULT: Knee 1 or 2 Views Right Knee 1 or 2 Views Right, Knee 1 or 2 Views Left, 2 views of both knees. Hx of Present Illness: Pt comes in for L knee pain and swelling . Pt had the R knee operated on in the spring and took fluid out. Pt has had multiple reoccurent infection in both knees and feels like another one is coming in the L knee. Fever of 102, N V D.; Reason: Infection; with Pain; Clinical Question(s): Osteomyelitis COMPARISON: Left knee, 11/06/2017 and right knee, 04/20/2020. 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 There is no evidence of acute or healing fracture, dislocation or bone lesion. No arthritic changes. No osteochondral defects or intra-articular loose bodies. Soft tissue thickening of the anterior infrapatellar right knee, somewhat improved from the most recent comparison. Soft tissue thickening of the anterior infrapatellar left knee, worsened with possible air lucenciesconcerning for infection/bursitis. IMPRESSION: 1. Increased soft tissue thickening of the anterior infrapatellar left knee concerning for infection/bursitis. 2. Improved anterior patella thickening of the right knee. A [employer] message has been communicated via the [employer] system on 06/16/2020 3:31 PM, Message ID [id number]. WSN: [id number] Ordering Physician: Luis Guzmán Dictated By: Janak Arcos MD Dictated Date/Time: 06/16/20 3:31 pm Reviewed By: Janak Arcos MD Signed By: Janak Arcos MD Signed Date/Time: 06/16/20 3:31 pm Transcribed By: HARPAL Transcribed Date/Time: 06/16/20 3:23 pm Vital Signs Most recent to oldest [Reference 1 2 3 Range]: Height 165 cm 165 cm 165 cm (06/19/20 3:51 AM) (06/18/20 7:34 PM) (06/18/20 3:43 P M) Weight 95.8 kg 95.8 kg (06/17/20 2:25 PM) (06/17/20 2:50 AM) Oxygen Saturation [94-100 %] 98 % 96 % 97 % (06/20/20 12:00 PM) (06/20/20 8:00 AM) (06/20/20 3:00 AM) Pulse Rate [55-90 bpm] 67 bpm 80 bpm 65 bpm (06/20/20 12:00 PM) (06/20/20 8:00 AM) (06/20/20 3:00 AM) Body Mass Index [18.5-24.99] 35.19 35.19 *>HHI* *>HHI* (06/17/20 2:25 PM) (06/17/20 2:50 AM) Blood Pressure [90-138/55-84 mm 106/63 mm Hg 115/74 mm Hg 119/67 mm Hg Hg] (06/20/20 12:00 PM) (06/20/20 8:00 AM) (06/20/20 3:00 AM) Respiratory Rate [16-30 br/min] 18 br/min 18 br/min 18 br/min (06/20/20 2:28 PM) (06/20/20 1:28 PM) (06/20/20 12:00 PM) Temperature [96.8-100.4 DegF] 98.3 DegF 98.3 DegF 98 .2 DegF (06/20/20 12:00 PM) (06/20/20 8:00 AM) (06/20/20 3:00 AM) Liters per Minute 6 L/min (06/17/20 4:55 PM) Mode of Delivery (Oxygen) Room air Room air Room a ir (06/20/20 12:00 PM) (06/20/20 8:00 AM) (06/20/20 3:00 AM) Blood pressure sites Arm, right Arm, right Arm, right (06/20/20 12:00 PM) (06/20/20 8:00 AM) (06/20/20 3:00 AM) Temperature Route Oral Oral Axillary (06/20/20 12:00 PM) (06/20/20 8:00 AM) (06/20/20 3:00 AM) Dry Weight 95.8 kg (06/17/20 2:50 AM) Social History Social History Type Response Smoking Status Former smoker; Other: Quit 2 015; entered on: 09/10/17 Sex
--- OUTSIDE RECORDS SUMMARY | 2022-08-20 22:43 | XMS_ITS | Continuity of Care Document ---
:1970 Author Organization [facility] Address [address] [place] [address]- Care Team Providers Name Role Phone Dawna Hernandez MD Primary Care Physician Encounter [facility] Date(s): 05/10/21 - 05/10/[address] [address]- Discharge Disposition: A-D/C Walkout Attending Physician: Nelson Leon MD Admitting Physician: Nelson Leon MD Referring Physician: Not on Staff, Referring [...] 04/30/2010:59:00 EDT, Aerosol, Route to Pharmacy Electronically, [id number], [facility][id number], 165, cm, 04/30/20 10:31:00 EDT, [...] Acute 05/22/21 10:41:00 EDT, 04/26/21 10:41:00 EDT, [id number], Partial fill upon patient [...] tableta en la manana y noche x3ds. [facility] [place] katy tableta en la manana y tarde y antes de acostarse., # 90 capsule, Refills 1, Tot. Refills 1, Maintenan... Start Date: 01/18/21 Status: Orderedlidocaine 5% topical film 1 patch, Topically, Daily, PRN Pain , Moderate, # 10 patch, 0 Refills, Maintenance, 04/26/21 10:38:00 EDT, Patch, [facility]/pharmacy #[id number], Partial fill upon patient request if the prescription is for a schedule II opioid drug., 1 patch Topically Daily,PRN:... Start Date: 04/26/21 Status: Orderedomeprazole 20 mg oral enteric coated capsule 1 capsule = 20 mg, By Mouth, Daily, # 30 capsule, 1 Refills, Maintenance, 12/14/20 10:57:00 EST, [facility]acy [facility][id number], Partial fill upon patient request if the prescription is for a schedule II opioid drug., 165, cm, 12/09/20 14:35:00 EST, Height, 90.5,... Start Date: 12/14/20 Stop Date: 02/12/21 Status: OrderedoxyCODONE 15 mg oral tablet 1 tablet = 15 mg, By Mouth, Every 6 hours, for 14 days, MassPAT checked do not fill until 04/28/21, #56 tablet, 0 Refills, Acute 05/12/21 13:08:00 EDT, 04/28/21 13:08:00 EDT, [id number], Partial fill upon patient request if the prescription i... Start Date: 04/28/21 Stop Date: 05/12/21 Status: OrderedPAP Supplies - Mask, Tubing, Filters, [...] 05/20/21 16:00:00 EDT, 05/09/21 9:11:00 EDT, Tablet, [facility]/pharmacy #[id number], Partial fill upon patient request [...] Maintenance,04/26/21 10:39:00 EDT, Route to Pharmacy Electronically, [facility]/pharmacy #[id number], Partial fill upon patient request if the prescription is for a schedule I... Start Date: 04/26/21 Stop Date: 05/03/21 Status: OrderedHoker See Instructions, # 1 units, Maintenance, Use as dircted, 07/05/19 14:32:18 EDT, Compound Start Date: 07/05/19 Status: OrderedZofran 4 mg oral tablet 1 tablet = 4 mg, By Mouth, Every 8 hours, PRN Nausea & Vomiting, # 10 tablet, 0 Refills, Acute 05/11/21 9:00:00 EDT, 05/05/21 9:22:00 EDT, Tablet, [id number], Partial fill upon patient request if the prescription is for a schedule II opioid . Start Date: 05/05/21 Stop Date: 05/11/21 Status: Ordered Problem List Condition Effective Dates Status Health Status Informant Chest pain(Confirmed) Active Chest pain(Confirmed) Active Depression(Confirmed) Active Diabetes(Confirmed) Active Controlled substance agreement signed Active 02/03/20(Confirmed) GERD (gastroesophageal reflux Active disease)(Confirmed) Hyperlipidemia(Confirmed) Active Lower back pain(Confirmed) Active Obstructive sleep apnea(Confirmed) Active Health long term, active care Active coordination [facility] [phone](Confirmed) Fatty infiltration of liver(Confirmed) Active Tubular adenoma of colon(Confirmed) Active Vital Signs Most recent to oldest 1 2 3 [Reference Range]: Oxygen Saturation [94-100 %] 99 % 98 % 98 % (05/10/21 4:12 PM) (05/10/21 1:20 PM) (05/10/21 11: 02 AM) Pulse Rate [55-90 bpm] 112 bpm 80 bpm 127 bpm *H* (05/10/21 1:20 PM) *H* (05/10/21 4:12 PM) (05/10/21 11:02 AM) Blood Pressure [90-138/55-84 133/86 mm Hg 127/84 mm Hg mm Hg] (05/10/21 4:12 PM) (05/10/21 1:20 PM) Respiratory Rate [16-30 16 br/min 18 br/min br/min] (05/10/21 4:12 PM) (05/10/21 1:20 PM) Temperature [96.8-100.4 DegF] 98.9 DegF 99.0 DegF (05/10/21 4:12 PM) (05/10/21 1:20 PM) Mode of Delivery (Oxygen) Room air Room air Room a ir (05/10/21 4:12 PM) (05/10/21 1:20 PM) (05/10/21 11: 02 AM) Blood pressure sites Arm, right (05/10/21 4:12 PM) Temperature Route Oral Oral (05/10/21 4:12 PM) (05/10/21 1:20 PM) Social History Social History Type Response Smoking Status Former smoker; Other: Quit 2 015; entered on: 09/10/17 Sex
--- OUTSIDE RECORDS SUMMARY | 2022-08-20 22:43 | XMS_ITS | Continuity of Care Document ---
:1970 Author Organization [facility] Address [address] [place] [address]- Care Team Providers Name Role Phone Daja MAYBERRY, Mirta Primary Care Physician Encounter [facility] [place] Date(s): 11/29/21 - 12/29/[address] [address] Allergies, Adverse Reactions, Alerts Substance Reaction Severity Status lisinopril Angioedema Active Shrimp Active Immunizations Given and Recorded Vaccine Date Status Refusal Reason SARS-CoV-2 mRNA ([id number]) vax 12/28/21 Given influenza virus vaccine, inactivated 09/01/20 Given influenza virus vaccine, inactivated 09/15/19 Given influenza virus vaccine, inactivated 11/19/18 Given influenza virus vaccine, inactivated 09/10/17 Given influenza virus vaccine, inactivated 12/06/15 Given tetanus/diphtheria/pertussis, acel(Tdap) 03/29/19 Given tetanus/diphtheria/pertussis, acel(Tdap) 09/10/17 Given pneumococcal 23-valent vaccine 04/08/18 Recorded pneumococcal 23-valent vaccine 04/22/17 Recorded pneumococcal 23-valent vaccine 12/21/12 Given Medications acetaminophen 325 mg oral tablet 975 mg, 3, tablet, By Mouth, 3 times a day, for 14 days, # 126 tablet, Refills 0, Tot. Refills 0, Acute 01/08/22 14:28:00 EDT, 12/25/21 14:28:00 EDT, Route to Pharmacy Electronically, [facility], Partial fill upon patient request if the... Start Date: 12/25/21 Stop Date: 01/08/22 Status: OrderedAerochamber See Instructions, # 1 each, Maintenance, as instructed, 11/21/17 9:52:57, Compound Start Date: 11/21/17 Status: Orderedalbuterol CFC free 90 mcg/inh inhalation aerosol 2, puffs, Inhalation, Every 6 hours, PRN, # 1 each, Refills 6, Tot. Refills 6, Maintenance, 04/30/2010:59:00 EDT, Aerosol, Route to Pharmacy Electronically, [id number], [facility]/pharmacy #[id number], 165, cm, 04/30/20 10:31:00 EDT, Hei... Start Date: 04/30/20 Status: OrderedAlcohol Wipes See Instructions, # 1 box, Maintenance, please use before testing three times a day: dx type 2 diabetes, 04/04/18 18:52:53 EDT, Compound Start Date: 04/04/18 Status: Orderedatorvastatin 20 mg oral tablet 1 tablet = 20 mg, By Mouth, Daily at bedtime, # 30 tablet, 5 Refills, Maintenance, 01/20/21 16:26:00EDT, Tablet, [facility]/pharmacy #[id number], 164, cm, 01/20/21 15:43:00 EDT, Height, [...] 0 Refills, Maintenance, 12/01/21 10:36:00 EST, Tablet, [facility]/pharmacy #[id number], RX in Icelandic., 165, cm, 08/09/21 9:47:00 EDT, Height, 98.5, kg, 08/13/21 8:29:00 EDT, Dry Weight Start Date: 12/01/21 Status: OrderedCPAP Machine See Instructions, # 1 units, Refills 0, Tot. Refills 0, Maintenance, CPAP of 8 cm of H2O with a heated humidifier. Recommend ordering a machine with compliance data tracking capabilities and following residual AHI. 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 Start Date: 09/10/17 Status: Ordereddoxycycline hyclate 100 mg oral capsule 1 capsule = 100 mg, By Mouth, 2 times a day, for 6 days, # 12 capsule, 0 Refills, Acute 01/01/22 14:06:00 EDT, 12/26/21 14:06:00 EDT, Capsule, [facility], Partial fill upon patient request if the prescription is for a schedule II opioid... Start Date: 12/26/21 Stop Date: 01/01/22 Status: OrderedFLUoxetine 20 mg oral capsule 60 [...] 12/25/21 14:04:00 EDT, Route to Pharmacy Electronically, [facility], Partial fill upon patient request if the prescription is for a sched... Start Date: 12/25/21 Status: Orderedlidocaine 5% topical film 1 patch, Topically, Daily, PRN Pain , Moderate, # 10 patch, 0 Refills, Maintenance, 04/26/21 10:38:00 EDT, Patch, [facility]/pharmacy #[id number], Partial fill upon patient request if the prescription is for a schedule II opioid drug., 1 patch Topically Daily,PRN:... Start Date: 04/26/21 Status: Orderednaproxen 500 mg oral tablet 1 tablet = 500 mg, By Mouth, 2 times a day, for 30 days, # 60 tablet, 0 Refills, Acute 01/27/22 10:52:00 EDT, 12/28/21 10:52:00 EDT, Tablet, [facility]/pharmacy #[id number], Partial fill upon patient request if theprescription is for a schedule II opioid drug., 1... Start Date: 12/28/21 Stop Date: 01/27/22 Status: Orderedomeprazole 20 mg oral enteric coated capsule 1 capsule = 20 mg, By Mouth, Daily, # 30 capsule, 1 Refills, Maintenance, 12/14/20 10:57:00 EST, [facility]/pharmacy #[id number], Partial fill upon patient request if the prescription is for a schedule II opioid drug., 165, cm, 12/09/20 14:35:00 EST, Height, 90.5,... Start Date: 12/14/20 Stop Date: 02/12/21 Status: OrderedoxyCODONE 15 mg oral tablet 1 tablet = 15 mg, By Mouth, Every 6 hours, for 28 days, MassPAT checked, # 112 tablet, 0 Refills, Acute 01/11/22 9:46:00 EDT, 12/14/21 9:46:00 EST, [facility]/pharmacy #[id number], Partial fill upon patient requestif the [...] Refills, Maintenance, 12/25/21 14:05:00 EDT, REC Powder, [facility], Partial fill upon patient request if [...] times a day, # 120 tablet, Refills 1, Tot. Refills 1, Maintenance, 11/14/21 8:40:00 EST, Route to Pharmacy Electronically, [facility]/pharmacy #[id number], Partial fill upon patient request if the prescription is for a schedule II opi... Start Date: 11/14/21 Status: OrderedrisperiDONE 2 mg oral tablet 4 [...] Maintenance,04/26/21 10:39:00 EDT, Route to Pharmacy Electronically, [facility]/pharmacy #[id number], Partial fill upon patient request if the [...] I(Confirmed) Active Obstructive sleep apnea(Confirmed) Active Health half-way, active care Active coordination PADMINI Mata [phone](Confirmed) Fatty infiltration of liver(Confirmed) Active Tubular adenoma of colon(Confirmed) Active Social History Social History Type Response Smoking Status Former smoker; Other: Quit 2 015; entered on: 09/10/17 Sex
--- OUTSIDE RECORDS SUMMARY | 2022-08-20 22:43 | XMS_ITS | Continuity of Care Document ---
:1970 Author Organization [facility] Address [address] [place] [address]- Care Team Providers Name Role Phone Dawna Hernandez MD Primary Care Physician Encounter [facility] Date(s): 10/17/19 - 11/19/[address] [address]- [place] Attending Physician: Not on Staff, Attending MD Allergies, Adverse Reactions, Alerts Substance Reaction [...] Maintenance, 189:52:06, Aerosol, Route to Pharmacy Electronically, [id number], [facility] [id number], Compound Start Date: 11/21/17 Status: OrderedAlcohol Wipes See Instructions, # 1 box, Maintenance, please use before testing three times a day: dx type 2 diabetes, 04/04/18 18:52:53 EDT, Compound Start Date: 04/04/18 Status: Orderedatorvastatin 20 mg oral tablet 1 tablet = 20 mg, By Mouth, Daily, # 30 tablet, 5 Refills, Maintenance, 10/29/19 9:49:00 EST, Tablet, [facility]/pharmacy #[id number], 165, cm, 10/24/19 14:26:00 EST, Height, [...] 10:26:20 EST, Compound Start Date: 11/19/18 Status: Orderedcelecoxib 100 mg oral capsule 1 capsule = 100 mg, By Mouth, 2 times a day, # 60 capsule, 0 Refills, Maintenance, 10/29/19 9:49:00 EST, Capsule, [facility]/pharmacy #[id number], 165, cm, 10/24/19 14:26:00 EST, Height, 97.3, kg, 10/23/19 17:43:00EST, Dry Weight Start Date: 10/29/19 Status: OrderedCPAP Machine See Instructions, # 1 [...] 10/29/19 9:49:00 EST, Route to Pharmacy Electronically, [facility]/pharmacy #[id number], 165, cm, 10/24/19 14:26:00EST, Height, 97.3, [...] capsule, Refills 0, Tot. Refills 0, Maintenance, 10/29/19 9:49:00 EST, Route to Pharmacy Electronically, [facility]/pharmacy #[id number], 165, cm, 10/24/19 14:26:00 EST, Height, 97.3, kg, 10/23/19 17:43:00 EST, Dry Weight Start Date: 10/29/19 Stop Date: 11/28/19 Status: OrderedrisperiDONE 1 mg oral tablet 1 [...] 10/29/19 9:49:00 EST, Route to Pharmacy Electronically, [facility]/pharmacy #[id number], 165, cm, 10/24/19 14:26:00 EST, Height, [...] pain(Confirmed) Active Obstructive sleep apnea(Confirmed) Active Health [facility], active care Active coordination PADMINI Mata [phone](Confirmed) Poor historian(Confirmed) Active Septic prepatellar bursitis of right Active knee(Confirmed) Septic prepatellar bursitis of left Active knee(Confirmed) Fatty infiltration of liver(Confirmed) Active Social History Social History Type Response Smoking Status Former smoker; Other: Quit 2 015; entered on: 09/10/17 Sex
--- OUTSIDE RECORDS SUMMARY | 2022-08-20 22:43 | XMS_ITS | Continuity of Care Document ---
:1970 Author Organization [facility] Address [address] [place] [address]- Care Team Providers Name Role Phone Dawna Hernandez MD Primary Care Physician [place] [facility] [place] [facility] [id number] Date(s): 06/02/21 - 06/09/21 [facility] [address], [place] [address] Attending Physician: Marquise Gunter DO Referring Physician: Dawna Hernandez MD Allergies, Adverse [...] 04/30/2010:59:00 EDT, Aerosol, Route to Pharmacy Electronically, [id number], [facility]/pharmacy #[id number], 165, cm, 04/30/20 10:31:00 EDT, Hei... Start Date: 04/30/20 Status: OrderedAlcohol Wipes See Instructions, # 1 box, Maintenance, please use before testing three times a day: dx type 2 diabetes, 04/04/18 18:52:53 EDT, Compound Start Date: 04/04/18 Status: Orderedatorvastatin 20 mg oral tablet 1 tablet = 20 mg, By Mouth, Daily at bedtime, # 30 tablet, 5 Refills, Maintenance, 01/20/21 16:26:00EDT, Tablet, [facility]/pharmacy #[id number], 164, cm, 01/20/21 15:43:00 EDT, Height, [...] tableta en la manana y noche x3ds. [place] katy tableta en la manana y tarde y antes de acostarse., # 90 capsule, Refills 1, Tot. Refills 1, Maintenan... Start Date: 01/18/21 Status: Orderedlidocaine 5% topical film 1 patch, Topically, Daily, PRN Pain , Moderate, # 10 patch, 0 Refills, Maintenance, 04/26/21 10:38:00 EDT, Patch, [id number], Partial fill upon patient request if the prescription is for a schedule II opioid drug., 1 patch Topically Daily,PRN:... Start Date: 04/26/21 Status: Orderedomeprazole 20 mg oral enteric coated capsule 1 capsule = 20 mg, By Mouth, Daily, # 30 capsule, 1 Refills, Maintenance, 12/14/20 10:57:00 EST, [facility]/pharmacy #[id number], Partial fill upon patient request if [...] 05/20/21 16:26:00 EDT, Route to Pharmacy Electronically, [facility]/pharmacy #[id number], Partial fill upon patient request if [...] 17:13:00 EDT, Supply Start Date: 01/29/20 Status: OrderedSipollo Bath See Instructions, # 1 each, Maintenance, [...] Maintenance,04/26/21 10:39:00 EDT, Route to Pharmacy Electronically, [facility]/pharmacy #[id number], Partial fill upon patient request if the [...] pain(Confirmed) Active Obstructive sleep apnea(Confirmed) Active Health nursing home, active care [facility] [phone](Confirmed) Fatty infiltration of liver(Confirmed) Active Tubular adenoma of colon(Confirmed) Active Vital Signs Most recent to oldest [Reference Range]: 1 Height 165 cm (06/02/21 12:44 PM) Oxygen Saturation [94-100 %] 98 % (06/02/21 12:44 PM) Pulse Rate [55-90 bpm] 102 bpm *H* (06/02/21 12:44 PM) Systolic Blood Pressure [90-138 mm Hg] 133 mm Hg (06/02/21 12:44 PM) Respiratory Rate [16-30 br/min] 20 br/min (06/02/21 12:44 PM) Temperature [96.8-100.4 DegF] 97.6 DegF (06/02/21 12:44 PM) Mode of Delivery (Oxygen) Room air (06/02/21 12:44 PM) Blood pressure sites Arm, right (06/02/21 12:44 PM) Temperature Route Temporal (06/02/21 12:44 PM) Social History Social History Type Response Smoking Status Former smoker; Other: Quit 2 015; entered on: 09/10/17 Sex
--- OUTSIDE RECORDS SUMMARY | 2022-08-20 22:43 | XMS_ITS | Continuity of Care Document ---
:1970 Author Organization [facility] Address [address] [place] [address]- Care Team Providers Name Role Phone Dawna Hernandez MD Primary Care Physician Encounter [facility] [place] Date(s): 04/26/20 - 05/30/[address] [address]- [facility] Attending Physician: Dawna Hernandez MD Admitting Physician: Dawna Hernandez MD Allergies, Adverse Reactions, [...] 04/30/2010:59:00 EDT, Aerosol, Route to Pharmacy Electronically, [id number], [id number], 165, cm, 04/30/20 10:31:00 EDT, Hei... Start Date: 04/30/20 Status: OrderedAlcohol Wipes See Instructions, # 1 box, Maintenance, please use before testing three times a day: dx type 2 diabetes, 04/04/18 18:52:53 EDT, Compound Start Date: 04/04/18 Status: Orderedatorvastatin 20 mg oral tablet 1 tablet = 20 mg, By Mouth, Daily, # 30 tablet, 5 Refills, Maintenance, 04/30/20 10:59:00 EDT, Tablet, [facility]/pharmacy #[id number], 165, cm, 04/30/20 10:31:00 EDT, Height, [...] 5 Refills, Maintenance, 11/20/19 12:00:00 EST, Tablet, [facility]/pharmacy #[id number], 165, cm, 11/20/19 11:16:00 EST, Height, 97.3, kg, 10/23/19 17:43:00 EST, Dry Weight Start Date: 11/20/19 Status: Orderedomeprazole 20 mg oral delayed release tablet 1 tablet = 20 mg, By Mouth, Daily, # 30 tablet, 2 Refills, Maintenance, 05/24/20 10:57:00 EDT, EC Tablet, [facility]/pharmacy #[id number], 165, cm, 05/06/20 10:29:00 EDT, Height, 95.8, kg, 04/19/20 14:48:00 EDT, Dry Weight Start Date: 05/24/20 Status: OrderedoxyCODONE 10 mg oral tablet 1 tablet = 10 mg, By Mouth, Every 6 hours, PRN as needed for pain, dx: M54.5 on agreement masspat checked do not fill til 05/25/20, # 20 tablet, 0 Refills, Maintenance, 05/25/20 13:50:00 EDT, Tablet, [facility], Partial fill upon cedric... Start Date: 05/25/20 Status: OrderedraNITIdine 75 mg oral tablet 1 tablet = 75 mg, By Mouth, Daily, # 28 tablet, 0 Refills, Maintenance, 04/30/20 10:58:00 EDT, Tablet, [facility]/pharmacy #[id number], 165, cm, 04/30/20 10:31:00 EDT, Height, [...] pain(Confirmed) Active Obstructive sleep apnea(Confirmed) Active Health assisted, active care Active coordination PADMINI Cruz [facility] [phone](Confirmed) Fatty infiltration of liver(Confirmed) Active Social History Social History Type Response Smoking Status Former smoker; Other: Quit 2 015; entered on: 09/10/17 Sex
--- OUTSIDE RECORDS SUMMARY | 2022-08-20 22:43 | XMS_ITS | Continuity of Care Document ---
:1970 Author Organization [facility] Address [address] [place] [address]- Care Team Providers Name Role Phone Mary RAWLS, Dawna Primary Care Physician [place] [facility] [place] 08/31/[address] [address] Discharge Disposition: A-D/C Home Attending Physician: Dawna Hernandez MD Admitting Physician: Dawna Hernandez MD Referring Physician: Dawna Hernandez MD Allergies, [...] 04/30/2010:59:00 EDT, Aerosol, Route to Pharmacy Electronically, [id number], [facility]/pharmacy #[id number], 165, cm, 04/30/20 10:31:00 EDT, [...] tablet, 5 Refills, Maintenance, 01/20/21 16:26:00EDT, Tablet, [facility]/pharmacy #[id number], 164, cm, 01/20/21 15:43:00 EDT, Height, [...] tableta en la manana y noche x3ds. [place] katy tableta en la manana y tarde y antes de acostarse., # 270 capsule, Refills 3, Tot. Refills 3, Maintena... Start Date: 08/09/21 Status: Orderedlidocaine 5% topical film 1 patch, Topically, Daily, PRN Pain , Moderate, # 10 patch, 0 Refills, Maintenance, 04/26/21 10:38:00 EDT, Patch, [id number], Partial fill upon patient request if the prescription is for a schedule II opioid drug., 1 patch Topically Daily,PRN:... Start Date: 04/26/21 Status: Orderedomeprazole 20 mg oral enteric coated capsule 1 capsule = 20 mg, By Mouth, Daily, # 30 capsule, 1 Refills, Maintenance, 12/14/20 10:57:00 EST, [facility]/pharmacy #[id number], Partial fill upon patient request if the prescription is for a schedule II opioid drug., 165, cm, 12/09/20 14:35:00 EST, Height, 90.5,... Start Date: 12/14/20 Stop Date: 02/12/21 Status: OrderedoxyCODONE 15 mg oral tablet 1 tablet = 15 mg, By Mouth, Every 6 hours, for 14 days, MassPAT checked do not fill until 08/19/21, #56 tablet, 0 Refills, Acute 09/02/21 15:49:00 EST, 08/19/21 15:49:00 EDT, [facility]/pharmacy #[id number], Partial fill upon patient request if the prescription i... Start Date: 08/19/21 Stop Date: 09/02/21 Status: OrderedPAP Supplies - Mask, Tubing, Filters, [...] Instructions ReplaceRequired Details, Route to Pharmacy Electronically, [id number], 165, cm, 06/02/21 12:44:00 EDT,Height, 92.8, kg, 05/19/21 23:20:00 EDT, Dry Weight Start Date: 08/02/21 Status: Orderedpropranolol 20 mg oral tablet 40 mg, 2, tablet, By Mouth, 2 times a day, # 120 tablet, Refills 0, Tot. Refills 0, Maintenance, 08/02/21 15:46:00 EDT, Route to Pharmacy Electronically, [facility]/pharmacy #[id number], Partial fill upon [...] Maintenance,04/26/21 10:39:00 EDT, Route to Pharmacy Electronically, [facility]/pharmacy #[id number], Partial fill upon [...] pain(Confirmed) Active Obstructive sleep apnea(Confirmed) Active Health custodial, active care Active coordination PADMINI Cruz [facility] [phone](Confirmed) Fatty infiltration of liver(Confirmed) Active Tubular adenoma of colon(Confirmed) Active Social History Social History Type Response Smoking Status Former smoker; Other: Quit 2 015; entered on: 09/10/17 Sex
--- OUTSIDE RECORDS SUMMARY | 2022-08-20 22:43 | XMS_ITS | Continuity of Care Document ---
:1970 Author Organization [facility] Address [address] [place] [address]- Care Team Providers Name Role Phone Mary RAWLS, Dawna Primary Care Physician Encounter [facility] [place] Date(s): 12/18/20 - 12/19/[address] [address] Encounter Diagnosis Chest pain (Final) - 12/18/20 Discharge Disposition: A-D/C Home Attending Physician: Kenny Chavez MD Admitting Physician: Jaimie Odom MD Referring Physician: Not on Staff, Referring [...] 04/30/2010:59:00 EDT, Aerosol, Route to Pharmacy Electronically, [id number], [facility]/pharmacy #[id number], 165, cm, 04/30/20 10:31:00 EDT, Hei... Start Date: 04/30/20 Status: OrderedAlcohol Wipes See Instructions, # 1 box, Maintenance, please use before testing three times a day: dx type 2 diabetes, 04/04/18 18:52:53 EDT, Compound Start Date: 04/04/18 Status: Orderedaspirin 81 mg oral delayed release tablet 81 mg, By Mouth, Daily, # 30 tablet, Refills 0, Tot. Refills 0, Maintenance, 12/19/20 18:18:00 EST, Route to Pharmacy Electronically, [facility]/pharmacy #[id number], Partial fill upon patient request if the prescription is for a schedule II opioid drug., 164, cm,... Start Date: 12/19/20 Stop Date: 01/18/21 Status: Orderedatorvastatin 20 mg oral tablet 1 tablet = 20 mg, By Mouth, Daily at bedtime, # 30 tablet, 5 Refills, Maintenance, 04/30/20 10:59:00EDT, Tablet, [facility]/pharmacy #[id number], 165, cm, 04/30/20 10:31:00 EDT, Height, 95.8, kg, 04/19/20 14:48:00EDT, Dry Weight Start Date: 04/30/20 Status: OrderedBack [...] Mellitus. check sugars three times a day, 10/28/20 15:35:00 EST, Compound, 165, cm, 10/11/20 15:28:00 EST, Height, 100, kg, 10/11/20 2:38:00 EST, Dry Weight Start Date: 10/28/20 Stop Date: 11/27/20 Status: Orderedomeprazole 20 mg oral enteric coated capsule 1 capsule = 20 mg, By Mouth, Daily, # 30 capsule, 1 Refills, Maintenance, 12/14/20 10:57:00 EST, [facility]/pharmacy #[id number], Partial fill upon patient request if the prescription is for a schedule II opioid drug., 165, cm, 12/09/20 14:35:00 EST, Height, 90.5,... Start Date: 12/14/20 Stop Date: 02/12/21 Status: OrderedoxyCODONE 15 mg oral tablet 1 tablet = 15 mg, By Mouth, Every 6 hours, PRN as needed for pain, dx: M54.5 on agreement masspat checked do not fill til 12/15/20, # 56 tablet, 0 Refills, Maintenance, 12/15/20 17:44:00 EST, Tablet, [facility]/pharmacy #[id number], Partial fill upon patient req... Start Date: 12/15/20 Stop Date: 12/29/20 Status: OrderedPAP Supplies - Mask, Tubing, Filters, [...] oral capsule 2 mg, Capsule, By Mouth, 12/19/20 9:00:00 EST Start Date: 12/19/20 Stop Date: 12/19/20 Status: Completedprazosin 2 mg oral capsule 1 [...] 17:13:00 EDT, Supply Start Date: 01/29/20 Status: OrderedHoker See Instructions, # 1 units, Maintenance, Use as dircted, 07/05/19 14:32:18 EDT, Compound Start Date: 07/05/19 Status: Ordered Problem List Condition Effective Dates Status Health Status Informant Chest pain(Confirmed) Active Chest pain(Confirmed) Active Diabetes(Confirmed) Active Controlled substance agreement signed Active 02/03/20(Confirmed) GERD (gastroesophageal reflux Active disease)(Confirmed) Hyperlipidemia(Confirmed) Active Lower back pain(Confirmed) Active Obstructive sleep apnea(Confirmed) Active Health [facility], active care Active coordination PADMINI Mata [phone](Confirmed) Fatty infiltration of liver(Confirmed) Active Tubular adenoma of colon(Confirmed) Active Results Radiology Reports Exam Date Time Procedure Performing Provider Status 12/18/20 5:08 PM Chest 2 Views Frontal and Lat Micki Jiménez; July (Verified) Notes:(Chest 2 Views Frontal and Lat) Reason For Exam: AnginaRESULT: Chest 2 Views Frontal and Lat Chest 2 Views Frontal and Lat Hx of Present Illness: Patient developed chest pain with radiation to left hand, diaphorisis and vomiting that ended in syncopal episode yesterday. Patient reports chest pain resolved but reports dizziness and headache present. Denies cough and shortness of breath; Reason: Angina; Clinical Question(s): CHF; Order Comment: COMPARISON: [facility], most recent dated 10/10/2020 FINDINGS: LINES AND TUBES: None. LUNGS AND PLEURA: Clear lungs. Normal pulmonary vascularity. No pleural effusion. No pneumothorax. HEART, MEDIASTINUM AND YANETH: Heart is normal in size. Normal upper mediastinal and hilar contour. BONES AND SOFT TISSUES: No acute abnormality. IMPRESSION: No radiographic evidence of acute cardiopulmonary disease. WSN: [id number] Ordering Physician: Ira Reinoso Dictated By: Aparna Olivera MD Dictated Date/Time: 12/18/20 5:18 pm Reviewed By: Aparna Olivera MD Signed By: Aparna Olivera MD Signed Date/Time: 12/18/20 5:18 pm Transcribed By: HARPAL Transcribed Date/Time: 12/18/20 5:18 pm Vital Signs Most recent to oldest [Reference 1 2 3 Range]: Height 164 cm 164 cm 164 cm (12/19/20 7:09 PM) (12/19/20 3:47 PM) (12/19/20 11:49 AM) Weight 97 kg (12/18/20 9:42 PM) Oxygen Saturation [94-100 %] 96 % 97 % 99 % (12/19/20 7:09 PM) (12/19/20 3:47 PM) (12/19/20 11:49 AM) Pulse Rate [55-90 bpm] 99 bpm 97 bpm 89 bpm *H* *H* (12/19/20 11:49 AM ) (12/19/20 7:09 PM) (12/19/20 3:47 PM) Body Mass Index [18.5-24.99] 36.06 *>HHI* (12/18/20 9:42 PM) Blood Pressure [90-138/55-84 mm 112/79 mm Hg 113/74 mm Hg 129/82 mm Hg Hg] (12/19/20 7:09 PM) (12/19/20 3:47 PM) (12/19/20 12:37 PM) Respiratory Rate [16-30 br/min] 17 br/min 18 br/min 18 br/min (12/19/20 7:09 PM) (12/19/20 3:47 PM) (12/19/20 11:49 AM) Temperature [96.8-100.4 DegF] 98.4 DegF 98.3 DegF 98 .1 DegF (12/19/20 7:09 PM) (12/19/20 3:47 PM) (12/19/20 11:49 AM) Mode of Delivery (Oxygen) Room air Room air Room a ir (12/19/20 7:09 PM) (12/19/20 3:47 PM) (12/19/20 11:49 AM) Blood pressure sites Arm, left Arm, right Arm, right (12/19/20 7:09 PM) (12/19/20 3:47 PM) (12/19/20 11:49 AM) Temperature Route Oral Oral Oral (12/19/20 7:09 PM) (12/19/20 3:47 PM) (12/19/20 11:49 AM) Dry Weight 97 kg (12/18/20 9:42 PM) Social History Social History Type Response Smoking Status Former smoker; Other: Quit 2 015; entered on: 09/10/17 Sex
--- OUTSIDE RECORDS SUMMARY | 2022-08-20 22:43 | XMS_ITS | Continuity of Care Document ---
:1970 Author Organization [facility] Address [address] [place] [address]- Care Team Providers Name Role Phone Daja MAYBERRY, Mirta Primary Care Physician Encounter [facility] [place] Date(s): 02/01/22 - 03/09/[address] [address] Attending Physician: Mirta Farnsworth NP Admitting Physician: Daja MAYBERRY, Mirta Referring Physician: Mirta Farnsworth NP Allergies, Adverse Reactions, Alerts Substance Reaction Severity Status lisinopril Angioedema Active Shrimp Active Immunizations Given and Recorded Vaccine Date Status Refusal Reason influenza virus vaccine, inactivated 02/15/22 Given influenza virus vaccine, inactivated 09/01/20 Given influenza virus vaccine, inactivated 09/15/19 Given influenza virus vaccine, inactivated 11/19/18 Given influenza virus vaccine, inactivated 09/10/17 Given influenza virus vaccine, inactivated 12/06/15 Given SARS-CoV-2 mRNA (orqvabf-yahc-rysip) vax 01/26/22 Given SARS-CoV-2 mRNA (orpydod-preb-ojtfn) vax 12/28/21 Given tetanus/diphtheria/pertussis, acel(Tdap) 03/29/19 Given tetanus/diphtheria/pertussis, acel(Tdap) 09/10/17 Given pneumococcal 23-valent vaccine 04/08/18 Recorded pneumococcal 23-valent vaccine 04/22/17 Recorded pneumococcal 23-valent vaccine 12/21/12 Given Medications albuterol CFC free 90 mcg/inh inhalation aerosol 2, puffs, Inhalation, Every 6 hours, PRN, # 1 each, Refills 6, Tot. Refills 6, Maintenance, 04/30/2010:59:00 EDT, Aerosol, Route to Pharmacy Electronically, [id number], [facility]/pharmacy #[id number], 165, cm, 04/30/20 10:31:00 EDT, [...] tablet, 5 Refills, Maintenance, 01/20/21 16:26:00EDT, Tablet, [facility]/pharmacy #[id number], 164, cm, 01/20/21 15:43:00 EDT, Height, 98, kg, 01/11/21 18:32:00 EDT, Dry Weight Start Date: 01/20/21 Status: OrderedBack Brace See Instructions, # 1 each, Maintenance, Dx DJD, back pain. Wear for support, 08/09/21 10:06:00 EDT,Compound Start Date: 08/09/21 Status: Orderedcetirizine 10 mg oral tablet 1 tablet, By Mouth, Daily, PRN NEEDED FOR ALLERGIES, # 30 tablet, 0 Refills, [facility] STORE [id number], 165, cm, 02/15/22 10:35:00 EDT, Height, 90.7, kg, 02/06/22 19:49:00 EDT, Dry Weight Start Date: 02/27/22 Status: OrderedCPAP Machine See Instructions, # 1 [...] 12/25/21 14:04:00 EDT, Route to Pharmacy Electronically, [facility], Partial fill upon patient request if the prescription is for a sched... 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 Left knee neoprene sleeve, 02/15/22 12:58:00 EDT, Supply Start Date: 02/15/22 Status: OrderedKnee Support See Instructions, # 1 each, Maintenance, Dx: M25.561. Right knee neoprene sleeve, 02/15/22 13:11:00 EDT, Supply Start Date: 02/15/22 Status: Orderednaproxen 500 mg oral tablet 1 tablet, By Mouth, 2 times a day, for 30 days, # 60 tablet, 0 Refills, Physician Stop, [facility] STORE [id number], 165, cm, 02/15/22 10:35:00 EDT, Height, 90.7, kg, 02/06/22 19:49:00 EDT, Dry Weight Start Date: 02/27/22 Stop Date: 03/29/22 Status: Orderedomeprazole 20 mg oral enteric coated capsule 1 capsule = 20 mg, By Mouth, Daily, # 30 capsule, 1 Refills, Maintenance, 12/14/20 10:57:00 EST, [facility]/pharmacy #[id number], Partial fill upon patient request [...] tablet, Refills 5, Route to Pharmacy Electronically, [facility] STORE [id number], 166, cm, 12/28/21 10:33:00 EDT, Height, 91.9, [...] 17:13:00 EDT, Supply Start Date: 01/29/20 Status: Orderedtamsulosin 0.4 mg oral capsule 0.4 mg, 1, capsule, By Mouth, Daily at bedtime, # 7 capsule, Refills 0, Tot. Refills 0, Maintenance,04/26/21 10:39:00 EDT, Route to Pharmacy Electronically, [facility]/pharmacy #[id number], Partial fill upon patient request if the [...] I(Confirmed) Active Obstructive sleep apnea(Confirmed) Active Health intermediate, active care Active [facility] [phone](Confirmed) Fatty infiltration of liver(Confirmed) Active Tubular adenoma of colon(Confirmed) Active Social History Social History Type Response Smoking Status Former smoker; Other: Quit 2 015; entered on: 09/10/17 Sex
--- OUTSIDE RECORDS SUMMARY | 2022-08-20 22:43 | XMS_ITS | Continuity of Care Document ---
:1970 Author Organization [facility] Address [address] [place] [address]- Care Team Providers Name Role Phone Mary RAWLS, Dawna Primary Care Physician [place] [facility] [place] Date(s): 08/30/21 - 09/11/[address] [address] Attending Physician: Dawna Hernandez MD Admitting Physician: [...] 04/30/2010:59:00 EDT, Aerosol, Route to Pharmacy Electronically, [id number], [facility]/pharmacy #[id number], 165, cm, 04/30/20 10:31:00 EDT, [...] tablet, 5 Refills, Maintenance, 01/20/21 16:26:00EDT, Tablet, [facility]/pharmacy #[id number], 164, cm, 01/20/21 15:43:00 EDT, [...] tableta en la manana y noche x3ds. [place] katy tableta en la manana y tarde y antes de acostarse., # 270 capsule, Refills 3, Tot. Refills 3, Maintena... Start Date: 08/09/21 Status: Orderedlidocaine 5% topical film 1 patch, Topically, Daily, PRN Pain , Moderate, # 10 patch, 0 Refills, Maintenance, 04/26/21 10:38:00 EDT, Patch, [id number], Partial fill upon patient request if the prescription is for a schedule II opioid drug., 1 patch Topically Daily,PRN:... Start Date: 04/26/21 Status: Orderedomeprazole 20 mg oral enteric coated capsule 1 capsule = 20 mg, By Mouth, Daily, # 30 capsule, 1 Refills, Maintenance, 12/14/20 10:57:00 EST, [facility]/pharmacy #[id number], Partial fill upon patient request [...] Instructions ReplaceRequired Details, Route to Pharmacy Electronically, [facility] STORE [id number], 165, cm, 06/02/21 12:44:00 EDT,Height, 92.8, kg, 05/19/21 23:20:00 EDT, Dry Weight Start Date: 08/02/21 Status: Orderedpropranolol 20 mg oral tablet 40 mg, 2, tablet, By Mouth, 2 times a day, # 120 tablet, Refills 0, Tot. Refills 0, Maintenance, 08/02/21 15:46:00 EDT, Route to Pharmacy Electronically, [facility]/pharmacy #[id number], Partial fill upon patient request [...] Maintenance,04/26/21 10:39:00 EDT, Route to Pharmacy Electronically, [facility]/pharmacy #[id number], Partial fill upon patient request if the [...] Health nursing home, active care Active coordination PADMINI Mata [phone](Confirmed) Fatty infiltration of liver(Confirmed) Active Tubular adenoma of colon(Confirmed) Active Social History Social History Type Response Smoking Status Former smoker; Other: Quit 2 015; entered on: 09/10/17 Sex
--- OUTSIDE RECORDS SUMMARY | 2022-08-20 22:44 | XMS_ITS | Continuity of Care Document ---
:1970 Author Organization [facility] Address [address] [place] [address]- Care Team Providers Name Role Phone Dawna Hernandez MD Primary Care Physician Encounter [facility] [place] Date(s): 04/08/21 - 05/08/[address] [address] Allergies, Adverse Reactions, Alerts [...] 04/30/2010:59:00 EDT, Aerosol, Route to Pharmacy Electronically, [id number], [id number], 165, cm, 04/30/20 10:31:00 EDT, [...] tableta en la manana y noche x3ds. [place] katy tableta en la manana y tarde y antes de acostarse., # 90 capsule, Refills 1, Tot. Refills 1, Maintenan... Start Date: 01/18/21 Status: Orderedlidocaine 5% topical film 1 patch, Topically, Daily, PRN Pain , Moderate, # 10 patch, 0 Refills, Maintenance, 04/26/21 10:38:00 EDT, Patch, [facility]/pharmacy #[id number], Partial fill upon patient request if the prescription is for a schedule II opioid drug., 1 patch Topically Daily,PRN:... Start Date: 04/26/21 Status: Orderedomeprazole 20 mg oral enteric coated capsule 1 capsule = 20 mg, By Mouth, Daily, # 30 capsule, 1 Refills, Maintenance, 12/14/20 10:57:00 EST, [facility]/pharmacy #[id number], Partial fill upon patient request if [...] Acute 05/12/21 13:08:00 EDT, 04/28/21 13:08:00 EDT, [facility]/pharmacy #[id number], Partial fill upon patient request if [...] Maintenance,04/26/21 10:39:00 EDT, Route to Pharmacy Electronically, [facility]/pharmacy #[id number], Partial fill upon patient request if the prescription is for a schedule I... Start Date: 04/26/21 Stop Date: 05/03/21 Status: OrderedAnselmo See Instructions, # 1 units, Maintenance, Use as dircted, 07/05/19 14:32:18 EDT, Compound Start Date: 07/05/19 Status: OrderedZofran 4 mg oral tablet 1 tablet = 4 mg, By Mouth, Every 8 hours, PRN Nausea & Vomiting, # 10 tablet, 0 Refills, Acute 05/11/21 9:00:00 EDT, 05/05/21 9:22:00 EDT, Tablet, [facility]/pharmacy #[id number], Partial fill upon patient request if the prescription is for a schedule II opioid Start Date: 05/05/21 Stop Date: 05/11/21 Status: Ordered Problem List Condition Effective Dates Status Health Status Informant Chest pain(Confirmed) Active Chest pain(Confirmed) Active Depression(Confirmed) Active Diabetes(Confirmed) Active Controlled substance agreement signed Active 02/03/20(Confirmed) GERD (gastroesophageal reflux Active disease)(Confirmed) Hyperlipidemia(Confirmed) Active Lower back pain(Confirmed) Active Obstructive sleep apnea(Confirmed) Active Health half-way, active care Active coordination PADMINI Mata [phone](Confirmed) Fatty infiltration of liver(Confirmed) Active Tubular adenoma of colon(Confirmed) Active Social History Social History Type Response Smoking Status Former smoker; Other: Quit 2 015; entered on: 09/10/17 Sex
--- OUTSIDE RECORDS SUMMARY | 2022-08-20 22:44 | XMS_ITS | Continuity of Care Document ---
:1970 Author Organization [facility] Address [address] [place] [address]- Care Team Providers Name Role Phone Dawna Hernandez MD Primary Care Physician [place] [facility] [place]/23/[place] - 06/22/[address] [address] Allergies, Adverse Reactions, Alerts Substance Reaction [...] 04/30/2010:59:00 EDT, Aerosol, Route to Pharmacy Electronically, [id number], [facility]/pharmacy #[id number], 165, cm, 04/30/20 10:31:00 EDT, [...] tablet, 5 Refills, Maintenance, 01/20/21 16:26:00EDT, Tablet, [facility]/pharmacy #[id number], 164, cm, 01/20/21 15:43:00 EDT, [...] tableta en la manana y noche x3ds. [place] katy tableta en la manana y tarde y antes de acostarse., # 90 capsule, Refills 1, Tot. Refills 1, Maintenan... Start Date: 01/18/21 Status: Orderedlidocaine 5% topical film 1 patch, Topically, Daily, PRN Pain , Moderate, # 10 patch, 0 Refills, Maintenance, 04/26/21 10:38:00 EDT, Patch, [facility]/pharmacy #[id number], Partial fill upon patient request if the prescription is for a schedule II opioid drug., 1 patch Topically Daily,PRN:... Start Date: 04/26/21 Status: Orderedomeprazole 20 mg oral enteric coated capsule 1 capsule = 20 mg, By Mouth, Daily, # 30 capsule, 1 Refills, Maintenance, 12/14/20 10:57:00 EST, [facility]/pharmacy #[id number], Partial fill upon patient request [...] 05/20/21 16:26:00 EDT, Route to Pharmacy Electronically, [facility]/pharmacy #[id number], Partial fill upon patient request [...] 17:13:00 EDT, Supply Start Date: 01/29/20 Status: OrderedYokasta Bath See Instructions, # 1 each, Maintenance, [...] Maintenance,04/26/21 10:39:00 EDT, Route to Pharmacy Electronically, [facility]/pharmacy #[id number], Partial fill upon patient request if the [...] senior living, active care Active [facility] [phone](Confirmed) Fatty infiltration of liver(Confirmed) Active Tubular adenoma of colon(Confirmed) Active Social History Social History Type Response Smoking Status Former smoker; Other: Quit 2 015; entered on: 09/10/17 Sex
--- OUTSIDE RECORDS SUMMARY | 2022-08-20 22:44 | XMS_ITS | Continuity of Care Document ---
:1970 Author Organization [facility] Address [address] [place] [address]- Care Team Providers Name Role Phone Dawna Hernandez MD Primary Care Physician Encounter [facility] Date(s): 04/29/20 - 05/29/[address] [address]- [facility] Allergies, Adverse Reactions, Alerts Substance Reaction Severity [...] 04/30/2010:59:00 EDT, Aerosol, Route to Pharmacy Electronically, [id number], [facility]/pharmacy #[id number], 165, cm, 04/30/20 10:31:00 EDT, [...] Refills, Maintenance, 11/20/19 12:00:00 EST, Tablet, [facility]/pharmacy #[id number], 165, cm, 11/20/19 11:16:00 EST, Height, 97.3, kg, 10/23/19 17:43:00 EST, Dry Weight Start Date: 11/20/19 Status: Orderedomeprazole 20 mg oral delayed release tablet 1 tablet = 20 mg, By Mouth, Daily, # 30 tablet, 2 Refills, Maintenance, 05/24/20 10:57:00 EDT, EC Tablet, [facility]/pharmacy #[id number], 165, cm, 05/06/20 10:29:00 EDT, Height, 95.8, kg, 04/19/20 14:48:00 EDT, Dry Weight Start Date: 05/24/20 Status: OrderedoxyCODONE 10 mg oral tablet 1 tablet = 10 mg, By Mouth, Every 6 hours, PRN as needed for pain, dx: M54.5 on agreement masspat checked do not fill til 05/25/20, # 20 tablet, 0 Refills, Maintenance, 05/25/20 13:50:00 EDT, Tablet, [facility], Partial fill upon cedric... Start Date: 05/25/20 Status: OrderedraNITIdine 75 mg oral tablet 1 tablet = 75 mg, By Mouth, Daily, # 28 tablet, 0 Refills, Maintenance, 04/30/20 10:58:00 EDT, Tablet, [facility]/pharmacy #[id number], 165, cm, 04/30/20 10:31:00 EDT, [...] pain(Confirmed) Active Obstructive sleep apnea(Confirmed) Active Health fpc, active care Active coordination PADMINI Cruz [facility] [phone](Confirmed) Fatty infiltration of liver(Confirmed) Active Social History Social History Type Response Smoking Status Former smoker; Other: Quit 2 015; entered on: 09/10/17 Sex
--- OUTSIDE RECORDS SUMMARY | 2022-08-20 22:44 | XMS_ITS | Continuity of Care Document ---
:1970 Author Organization [facility] Address [address] [place] [address]- Care Team Providers Name Role Phone Daja MAYBERRY, Mirta Primary Care Physician Encounter [facility] [place] Date(s): 12/28/21 - 03/10/[address] [address] [place] Attending Physician: Not on Staff, Attending MD Referring Physician: Dawna Hernandez MD Allergies, [...] virus vaccine, inactivated 12/06/15 Given SARS-CoV-2 mRNA (mtyjthm-dowz-wmcns) vax 01/26/22 Given SARS-CoV-2 mRNA (qgmjwyo-jjpk-slyoc) vax 12/28/21 Given tetanus/diphtheria/pertussis, acel(Tdap) 03/29/19 Given tetanus/diphtheria/pertussis, acel(Tdap) 09/10/17 Given pneumococcal 23-valent vaccine 04/08/18 Recorded pneumococcal 23-valent vaccine 04/22/17 Recorded pneumococcal 23-valent vaccine 12/21/12 Given Medications albuterol CFC free 90 mcg/inh inhalation aerosol 2, puffs, Inhalation, Every 6 hours, PRN, # 1 each, Refills 6, Tot. Refills 6, Maintenance, 04/30/2010:59:00 EDT, Aerosol, Route to Pharmacy Electronically, [id number], [facility]/pharmacy #[id number], 165, cm, 04/30/20 10:31:00 [...] tablet, 5 Refills, Maintenance, 01/20/21 16:26:00EDT, Tablet, [facility]/pharmacy #[id number], 164, cm, 01/20/21 15:43:00 EDT, Height, 98, kg, 01/11/21 18:32:00 EDT, Dry Weight Start Date: 01/20/21 Status: OrderedBack Brace See Instructions, # 1 each, Maintenance, Dx DJD, back pain. Wear for support, 08/09/21 10:06:00 EDT,Compound Start Date: 08/09/21 Status: Orderedcetirizine 10 mg oral tablet 1 tablet, By Mouth, Daily, PRN NEEDED FOR ALLERGIES, # 30 tablet, 0 Refills, [facility] STORE [address], 165, cm, 02/15/22 10:35:00 EDT, Height, 90.7, [...] 12/25/21 14:04:00 EDT, Route to Pharmacy Electronically, [facility], Partial fill upon patient request if [...] # 60 tablet, 0 Refills, Physician Stop, [facility] STORE [address], 165, cm, 02/15/22 10:35:00 EDT, Height, 90.7, kg, 02/06/22 19:49:00 EDT, Dry Weight Start Date: 02/27/22 Stop Date: 03/29/22 Status: Orderedomeprazole 20 mg oral enteric coated capsule 1 capsule = 20 mg, By Mouth, Daily, # 30 capsule, 1 Refills, Maintenance, 12/14/20 10:57:00 EST, [facility]/pharmacy #[id number], Partial fill upon patient request if the prescription is for a schedule II opioid drug., 165, cm, 12/09/20 14:35:00 EST, Height, 90.5,... Start Date: 12/14/20 Stop Date: 02/12/21 Status: OrderedoxyCODONE 15 mg oral tablet 1 tablet = 15 mg, By Mouth, Every 6 hours, for 28 days, MassPAT checked, # 112 tablet, 0 Refills, Acute 04/07/22 16:25:00 EDT, 03/10/22 16:25:00 EDT, [facility]/pharmacy #[id number], Partial fill upon patient request if the prescription is for a schedule II opioid... Start Date: 03/10/22 Stop Date: 04/07/22 Status: OrderedPAP Supplies - Mask, Tubing, Filters, [...] tablet, Refills 5, Route to Pharmacy Electronically, [facility]ORE [address]90, 166, cm, 12/28/21 10:33:00 EDT, Height, 91.9, [...] Maintenance,04/26/21 10:39:00 EDT, Route to Pharmacy Electronically, [facility]/pharmacy #[id number], Partial fill upon patient request if the [...] I(Confirmed) Active Obstructive sleep apnea(Confirmed) Active Health long-term, active care Active coordination PADMINI Mata [phone](Confirmed) Fatty infiltration of liver(Confirmed) Active Tubular adenoma of colon(Confirmed) Active Social History Social History Type Response Smoking Status Former smoker; Other: Quit 2 015; entered on: 09/10/17 Sex
--- OUTSIDE RECORDS SUMMARY | 2022-08-20 22:44 | XMS_ITS | Continuity of Care Document ---
:1970 Author Organization [facility] Address [address] [place] [address]- Care Team Providers Name Role Phone Dawna Hernandez MD Primary Care Physician [place] [facility] [place] - 07/[place]/[address] [address] Attending Physician: AdmLori sandhu Admitting Physician: AdmtrLori Referring Physician: Admtr, Ar8 Allergies, Adverse Reactions, [...] 04/30/2010:59:00 EDT, Aerosol, Route to Pharmacy Electronically, [id number], [facility]/pharmacy #[id number], 165, cm, 04/30/20 10:31:00 EDT, [...] tablet, 5 Refills, Maintenance, 01/20/21 16:26:00EDT, Tablet, [facility]/pharmacy #[id number], 164, cm, 01/20/21 15:43:00 EDT, [...] tableta en la manana y noche x3ds. [place] katy tableta en la manana y tarde y antes de acostarse., # 90 capsule, Refills 1, Tot. Refills 1, Maintenan... Start Date: 01/18/21 Status: Orderedlidocaine 5% topical film 1 patch, Topically, Daily, PRN Pain , Moderate, # 10 patch, 0 Refills, Maintenance, 04/26/21 10:38:00 EDT, Patch, [id number], Partial fill upon patient request if the prescription is for a schedule II opioid drug., 1 patch Topically Daily,PRN:... Start Date: 04/26/21 Status: Orderedomeprazole 20 mg oral enteric coated capsule 1 capsule = 20 mg, By Mouth, Daily, # 30 capsule, 1 Refills, Maintenance, 12/14/20 10:57:00 EST, [facility]/pharmacy #[id number], Partial fill upon patient request if the prescription is for a schedule II opioid drug., 165, cm, 12/09/20 14:35:00 EST, Height, 90.5,... Start Date: 12/14/20 Stop Date: 02/12/21 Status: OrderedoxyCODONE 15 mg oral tablet 1 tablet = 15 mg, By Mouth, Every 6 hours, for 14 days, MassPAT checked do not fill until 06/27/21, #56 tablet, 0 Refills, Acute 07/11/21 16:54:00 EDT, 06/27/21 16:54:00 EDT, [facility]/pharmacy #[id number], Partial fill upon patient request if the prescription i... Start Date: 06/27/21 Stop Date: 07/11/21 Status: OrderedPAP Supplies - Mask, Tubing, Filters, [...] 05/20/21 16:26:00 EDT, Route to Pharmacy Electronically, [facility]/pharmacy #[id number], Partial fill upon patient request [...] Maintenance,04/26/21 10:39:00 EDT, Route to Pharmacy Electronically, [facility]/pharmacy #[id number], Partial fill upon patient request if the [...] Active Obstructive sleep apnea(Confirmed) Active Health senior care, active care Active coordination PADMINI Mata [phone](Confirmed) Fatty infiltration of liver(Confirmed) Active Tubular adenoma of colon(Confirmed) Active Social History Social History Type Response Smoking Status Former smoker; Other: Quit 2 015; entered on: 09/10/17 Sex
--- OUTSIDE RECORDS SUMMARY | 2022-08-20 22:44 | XMS_ITS | Continuity of Care Document ---
:1970 Author Organization [facility] Address [address] [place] [address]- Care Team Providers Name Role Phone Dawna Hernandez MD Primary Care Phys[id number] Date(s): 05/03/22 - 06/21/[address] [address] Attending Physician: Not on Staff, Attending MD [...] virus vaccine, inactivated 12/06/15 Given SARS-CoV-2 mRNA ([id number]-rqyca) vax 01/26/22 Given SARS-CoV-2 mRNA (yrhymuj-loje-nqnzx) vax 12/28/21 Given tetanus/diphtheria/pertussis, acel(Tdap) 03/29/19 Given tetanus/diphtheria/pertussis, acel(Tdap) 09/10/17 Given pneumococcal 23-valent vaccine 04/08/18 Recorded pneumococcal 23-valent vaccine 04/22/17 Recorded pneumococcal 23-valent vaccine 12/21/12 Given Medications albuterol CFC free 90 mcg/inh inhalation aerosol 2, puffs, Inhalation, Every 6 hours, PRN, # 1 each, Refills 6, Tot. Refills 6, Maintenance, 04/30/2010:59:00 EDT, Aerosol, Route to Pharmacy Electronically, [id number], [facility]/pharmacy #[id number], 165, cm, 04/30/20 10:31:00 EDT, Hei... Start Date: 04/30/20 Status: OrderedAlcohol Wipes See Instructions, # 1 box, Maintenance, please use before testing three times a day: dx type 2 diabetes, 04/04/18 18:52:53 EDT, Compound Start Date: 04/04/18 Status: Orderedatorvastatin 40 mg oral tablet 1 tablet = 40 mg, By Mouth, Daily, # 90 tablet, 3 Refills, Maintenance, 05/11/22 14:22:00 EDT, Tablet, [facility]/pharmacy #[id number], Partial fill upon patient request if the prescription is for a schedule II opioid drug., 165, cm, 05/05/22 17:06:00 EDT, Height,... Start Date: 05/11/22 Status: OrderedBack Brace See Instructions, # 1 each, Maintenance, Dx DJD, back pain. Wear for support, 08/09/21 10:06:00 EDT,Compound Start Date: 08/09/21 Status: Orderedcetirizine 10 mg oral tablet 1 tablet, By Mouth, Daily, PRN NEEDED FOR ALLERGIES, # 90 tablet, 1 Refills, Maintenance, 04/05/22 7:53:00 EDT, [facility]/pharmacy #[id number], 165, cm, 02/15/22 10:35:00 EDT, Height, 90.7, kg, 02/06/22 19:49:00 EDT, Dry Weight Start Date: 04/05/22 Status: OrderedCPAP Machine See Instructions, # 1 [...] Date: 12/28/20 Stop Date: 01/27/21 Status: Orderedgabapentin 800 mg oral tablet 1 tablet = 800 mg, By Mouth, 3 times a day, # 90 tablet, 11 Refills, Maintenance, 06/15/22 17:40:00 EDT, Tablet, [facility]/pharmacy #[id number], Partial fill upon patient request if the prescription is for a schedule II opioid drug., 165, cm, 06/15/22 14:29:00 ED... Start Date: 06/15/22 Status: OrderedKnee Support See Instructions, # 1 each, Maintenance, Dx: M25.562. Left knee neoprene sleeve, 02/15/22 12:58:00 EDT, Supply Start Date: 02/15/22 Status: OrderedKnee Support See Instructions, # 1 each, Maintenance, Dx: M25.561. Right knee neoprene sleeve, 02/15/22 13:11:00 EDT, Supply Start Date: 02/15/22 Status: OrderedPAP Supplies - Mask, Tubing, Filters, Head Gear, Chin Strap, and Water Chamber PAP Supplies - Mask, Tubing, Filters, Head Gear, Chin Strap, and Water Chamber, See Instructions, # 1 each, Refills 12, Tot. Refills 12, Maintenance, to be used with CPAP machine for dx: MARIA G G47.30, 08/19/20 14:29:00 EST, Compound Start Date: 08/19/20 Status: OrderedPAP Supplies - Mask, Tubing, Filters, Head Gear, Chin Strap, and Water Chamber PAP Supplies - Mask, Tubing, Filters, Head Gear, Chin Strap, and Water Chamber, See Instructions, # 1 each, Refills 12, Tot. Refills 12, Maintenance, to be used with CPAP machine for dx: MARIA G G47.30, 05/03/22 12:41:00 EDT, Compound Start Date: 05/03/22 Status: Orderedprazosin 2 mg oral capsule 1 [...] tablet, Refills 5, Route to Pharmacy Electronically, [id number], 166, cm, 12/28/21 10:33:00 EDT, Height, 91.9, [...] long-term, active care Active coordination PADMINI Mata [phone](Confirmed) Fatty infiltration of liver(Confirmed) Active Tubular adenoma of colon(Confirmed) Active Social History Social History Type Response Smoking Status Former smoker; Other: Quit 2 015; entered on: 09/10/17 Sex Care Team PersonnelName: Dawna Hernandez MD Address: [address] [place] [address]
--- OUTSIDE RECORDS SUMMARY | 2022-08-20 22:44 | XMS_ITS | Continuity of Care Document ---
:1970 Author Organization [facility] Address [address] [place] [address]- Care Team Providers Name Role Phone Dawna Hernandez MD Primary Care Physician [place] [facility] [place] 03/09[place] - 03/09/[address] [address] [facility] Encounter Diagnosis Acute viral syndrome (Final) - 03/09/20 Hematuria (Final) - 03/09/20 Hematuria (Final) - 03/09/20 Discharge Disposition: A-D/C Home Attending Physician: Anup Yuan MD Admitting Physician: Anup Yuan MD Referring Physician: Not on Staff, Referring [...] Maintenance, 189:52:06, Aerosol, Route to Pharmacy Electronically, [id number], [facility] [id number], Compound Start Date: 11/21/17 Status: OrderedAlcohol Wipes See Instructions, # 1 box, Maintenance, please use before testing three times a day: dx type 2 diabetes, 04/04/18 18:52:53 EDT, Compound Start Date: 04/04/18 Status: Orderedatorvastatin 20 mg oral tablet 1 tablet = 20 mg, By Mouth, Daily, # 30 tablet, 5 Refills, Maintenance, 10/29/19 9:49:00 EST, Tablet, [facility]/pharmacy #[id number], 165, cm, 10/24/19 14:26:00 EST, Height, [...] 13:37:00 EDT, Compound Start Date: 02/05/20 Status: Orderedfamotidine 20 mg oral tablet 20 mg, 1, tablet, By Mouth, 2 times a day, # 20 tablet, Refills 0, Tot. Refills 0, Maintenance, 01/02/20 15:07:00 EDT, Route to Pharmacy Electronically, [facility]/pharmacy #[id number], 165, cm, 12/23/19 9:38:00 EDT, Height, [...] 5 Refills, Maintenance, 11/20/19 12:00:00 EST, Tablet, [facility]/pharmacy #[id number], 165, cm, 11/20/19 11:16:00 EST, Height, 97.3, kg, 10/23/19 17:43:00 EST, Dry Weight Start Date: 11/20/19 Status: OrderedNaprosyn 500 mg oral tablet 1 tablet = 500 mg, By Mouth, 2 times a day, # 60 tablet, 1 Refills, Maintenance, 11/20/19 11:59:00 EST, Tablet, [facility]/pharmacy #[id number], 165, cm, 11/20/19 11:16:00 EST, Height, 97.3, kg, 10/23/19 17:43:00 EST, Dry Weight Start Date: 11/20/19 Status: Orderedondansetron 8 mg oral tablet, disintegrating 1 tablet = 8 mg, By Mouth, 3 times a day, # 9 tablet, 0 Refills, Maintenance, 01/02/20 15:06:00 EDT,DIS Tablet, [facility]/pharmacy #[id number], 165, cm, 12/23/19 9:38:00 EDT, Height, 93.2, kg, 12/17/19 11:27:00 EST, Dry Weight Start Date: 01/02/20 Status: OrderedoxyCODONE 15 mg oral tablet 1 tablet = 15 mg, By Mouth, Every 8 hours, PRN as needed for pain, for 14 days, on agreement dx: M54.5 do not fill until 03/04/20 MassPAT checked, # 42 tablet, 0 Refills, Acute 03/18/20 16:48:00 EDT, 03/04/20 16:48:00 EDT, Tablet, [facility]/pharmacy #[id number]... Start Date: 03/04/20 Stop Date: 03/18/20 Status: OrderedrisperiDONE 2 mg oral tablet 2 mg, 1, tablet, By Mouth, Daily at bedtime, Rx'd by psychiatry, Maintenance, 01/28/19 20:39:47 EDT Start Date: 01/28/19 Status: OrderedShower Bench Shower Bench, See Instructions, # 1 each, Refills 0, Tot. Refills 0, Maintenance, to be used to helpwith hygeine dx: M54.5, 01/29/20 17:13:00 EDT, Supply Start Date: 01/29/20 Status: OrderedTums 500 mg oral tablet, chewable 500 mg, 1, tablet, Chew, 2 times a day, PRN, # 45 tablet, Refills 0, Tot. Refills 0, Maintenance, asneeded for dyspepsia, 12/23/19 10:09:00 EDT, Route to Pharmacy Electronically, [facility]/pharmacy #[id number], 165, cm, 12/23/19 9:38:00 EDT, Height, [...] Active Health snf, active care [facility] [phone](Confirmed) Fatty infiltration of liver(Confirmed) Active Results Radiology Reports Exam Date Time Procedure Performing Provider Status 03/09/20 11:45 AM Chest Portable Lynsey Hennessy; July (Priscilla fowler) Notes:(Chest Portable) Reason For Exam: FeverRESULT: Chest Portable Chest Portable INDICATION: Refer to EMR; Reason: Fever; Clinical Question(s): Pneumonia; Hx of Present Illness: Pt states he hasn't been feeling well for approx 5 days- c o fever, chills, headache, back abd pain as well as vomiting. States vomit is clear in color as he hasn't been able to tolerate anything by mouth.; Other Objective Findings: Pt awake alert, conversing in clear complete sentences, resp even nonlabor COMPARISON: 10/04/2019. FINDINGS: LINES AND TUBES: None. LUNGS AND PLEURA: There are mild low lung volumes. The lungs are clear and the pulmonary vascularity is normal. No effusion or pneumothorax. HEART, MEDIASTINUM AND YANETH: Normal. BONES AND SOFT TISSUES: No acute abnormality. IMPRESSION: Mild low lung volumes. No acute cardiopulmonary disease. WSN: [id number] Ordering Physician: Luis Guzmán Dictated By: Chiquita Meyer MD Dictated Date/Time: 03/09/20 11:46 a Reviewed By: Chiquita Meyer MD Signed By: Chiquita Meyer MD Signed Date/Time: 03/09/20 11:46 am Transcribed By: HARPAL Transcribed Date/Time: 03/09/20 11:45 am Vital Signs Most recent to oldest 1 2 3 [Reference Range]: Oxygen Saturation [94-100 %] 100 % 99 % 97 % (03/09/20 5:53 PM) (03/09/20 4:42 PM) (03/09/20 12: 00 PM) Pulse Rate [55-90 bpm] 79 bpm 88 bpm 90 bpm (03/09/20 5:53 PM) (03/09/20 4:42 PM) (03/09/20 12: 00 PM) Blood Pressure [90-138/55-84 106/66 mm Hg 117/80 mm Hg 114 /67 mm Hg mm Hg] (03/09/20 5:53 PM) (03/09/20 4:42 PM) (03/09/20 12: 00 PM) Respiratory Rate [16-30 13 br/min 14 br/min 16 br/mi n br/min] *L* *L* (03/09/20 12:00 P M) (03/09/20 5:53 PM) (03/09/20 4:42 PM) Temperature [96.8-100.4 DegF] 98.9 DegF (03/09/20 9:46 AM) Mode of Delivery (Oxygen) Room air Room air Room a ir (03/09/20 5:53 PM) (03/09/20 4:42 PM) (03/09/20 12: 00 PM) Blood pressure sites Arm, left Arm, left Arm, left (03/09/20 5:53 PM) (03/09/20 4:42 PM) (03/09/20 12: 00 PM) Temperature Route Oral (03/09/20 9:46 AM) Social History Social History Type Response Smoking Status Former smoker; Other: Quit 2 015; entered on: 09/10/17 Sex
--- OUTSIDE RECORDS SUMMARY | 2022-08-20 22:44 | XMS_ITS | Continuity of Care Document ---
:1970 Author Organization [facility] Address [address] [place] [address]- Care Team Providers Name Role Phone Mary RAWLS, Dawna Primary Care Physician [place] [facility]15[place] - 01[place]14[place]21 [facility] [address] [place], [place] [address] Allergies, Adverse Reactions, Alerts [...] 04/30/2010:59:00 EDT, Aerosol, Route to Pharmacy Electronically, [id number], [facility]/pharmacy #[id number], 165, cm, 04/30/20 10:31:00 EDT, [...] 12/19/20 18:18:00 EST, [id number] Partial fill upon patient request if the prescription is for a schedule II opioid drug., 164, cm,... Start Date: 12/19/20 Stop Date: 01/18/21 Status: Orderedatorvastatin 20 mg oral tablet 1 tablet = 20 mg, By Mouth, Daily at bedtime, # 30 tablet, 5 Refills, Maintenance, 04/30/20 10:59:00EDT, Tablet, [facility]/pharmacy #[id number], 165, cm, 04/30/20 10:31:00 EDT, [...] 13:37:00 EDT, Compound Start Date: 02/05/20 Status: Orderedcyclobenzaprine 10 mg oral tablet 10 mg, 1, tablet, By Mouth, 3 times a day, PRN, for 7 days, # 13 tablet, Refills 0, Tot. Refills 0, Acute 01/18/21 19:56:00 EDT, for spasm, 01/11/21 19:56:00 EDT, Route to Pharmacy Electronically, [facility]/pharmacy #[id number], Partial fill upon patient request... Start Date: 01/11/21 Stop Date: 01/18/21 Status: OrderedFLUoxetine 20 mg oral capsule 60 [...] Date: 12/28/20 Stop Date: 01/27/21 Status: Orderedgabapentin 100 mg oral capsule 100 mg, 1, capsule, By Mouth, Daily, Para dolor de espalda. [place] en la noche antes de dormir., # 30 capsule, Refills 1, Tot. Refills 1, Maintenance, 01/13/21 14:21:00 EDT, Route to Pharmacy Electronically, [facility]/pharmacy #[id number], Partial fill upon patient... Start Date: 01/13/21 Stop Date: 03/14/21 Status: Orderedomeprazole 20 mg oral enteric coated capsule 1 capsule = 20 mg, By Mouth, Daily, # 30 capsule, 1 Refills, Maintenance, 12/14/20 10:57:00 EST, [facility]/pharmacy #[id number], Partial fill upon patient request [...] 0 Refills, Maintenance, 12/15/20 17:44:00 EST, Tablet, [facility]/pharmacy #[id number], Partial fill upon patient req... Start Date: [...] pain(Confirmed) Active Obstructive sleep apnea(Confirmed) Active Health skilled nursing, active care Active coordination PADMINI Mata [phone](Confirmed) Fatty infiltration of liver(Confirmed) Active Tubular adenoma of colon(Confirmed) Active Social History Social History Type Response Smoking Status Former smoker; Other: Quit 2 015; entered on: 09/10/17 Sex
--- OUTSIDE RECORDS SUMMARY | 2022-08-20 22:44 | XMS_ITS | Continuity of Care Document ---
:1970 Author Organization [facility] Address [address] [place] [address]- Care Team Providers Name Role Phone Dawna Hernandez MD Primary Care Physician [place] [facility] [place] Date(s): 11/20/19 - 01/21/[address] [address] [place] Attending Physician: Mirta Farnsworth NP Admitting Physician: Mirta Farnsworth NP Referring Physician: Dawna Hernandez MD Allergies, Adverse [...] Maintenance, 189:52:06, Aerosol, Route to Pharmacy Electronically, [id number], [id number], Compound Start Date: 11/21/17 Status: OrderedAlcohol Wipes See Instructions, # 1 box, Maintenance, please use before testing three times a day: dx type 2 diabetes, 04/04/18 18:52:53 EDT, Compound Start Date: 04/04/18 Status: Orderedatorvastatin 20 mg oral tablet 1 tablet = 20 mg, By Mouth, Daily, # 30 tablet, 5 Refills, Maintenance, 10/29/19 9:49:00 EST, Tablet, [facility]/pharmacy #[id number], 165, cm, 10/24/19 14:26:00 EST, [...] 01/02/20 15:07:00 EDT, Route to Pharmacy Electronically, [facility]/pharmacy #[id number], 165, cm, 12/23/19 9:38:00 EDT, Height, [...] 5 Refills, Maintenance, 11/20/19 12:00:00 EST, Tablet, [facility]/pharmacy #[id number], 165, cm, 11/20/19 11:16:00 EST, Height, 97.3, kg, 10/23/19 17:43:00 EST, Dry Weight Start Date: 11/20/19 Status: OrderedNaprosyn 500 mg oral tablet 1 tablet = 500 mg, By Mouth, 2 times a day, # 60 tablet, 1 Refills, Maintenance, 11/20/19 11:59:00 EST, Tablet, [facility]/pharmacy #[id number], 165, cm, 11/20/19 11:16:00 EST, Height, 97.3, kg, 10/23/19 17:43:00 EST, Dry Weight Start Date: 11/20/19 Status: Orderedondansetron 8 mg oral tablet, disintegrating 1 tablet = 8 mg, By Mouth, 3 times a day, # 9 tablet, 0 Refills, Maintenance, 01/02/20 15:06:00 EDT,DIS Tablet, [facility]/pharmacy #[id number], 165, cm, 12/23/19 9:38:00 EDT, Height, [...] 12/23/19 10:09:00 EDT, Route to Pharmacy Electronically, [facility]/pharmacy #[id number], 165, cm, 12/23/19 9:38:00 EDT, Height, [...] pain(Confirmed) Active Obstructive sleep apnea(Confirmed) Active Health detention, active care Active coordination PADMINI Mata [phone](Confirmed) Septic prepatellar bursitis of right Active knee(Confirmed) Septic prepatellar bursitis of left Active knee(Confirmed) Fatty infiltration of liver(Confirmed) Active Social History Social History Type Response Smoking Status Former smoker; Other: Quit 2 015; entered on: 09/10/17 Sex
--- OUTSIDE RECORDS SUMMARY | 2022-08-20 22:44 | XMS_ITS | Continuity of Care Document ---
:1970 Author Organization [facility] Address [address] [place] [address]- Care Team Providers Name Role Phone Dawna Hernandez MD Primary Care Physician [place] [facility] [place] 12[place]19/21 - 12/25/[address] [address] Discharge Disposition: A-D/C Home Attending Physician: Ofelia Yost MD Admitting Physician: Bradley Gardner MD Referring Physician: Not on Staff, Referring [...] 12/25/21 14:28:00 EDT, Route to Pharmacy Electronically, [facility], Partial fill upon patient request if the... Start Date: 12/25/21 Stop Date: 01/08/22 Status: OrderedAerochamber See Instructions, # 1 each, Maintenance, as instructed, 11/21/17 9:52:57, Compound Start Date: 11/21/17 Status: Orderedalbuterol CFC free 90 mcg/inh inhalation aerosol 2, puffs, Inhalation, Every 6 hours, PRN, # 1 each, Refills 6, Tot. Refills 6, Maintenance, 04/30/2010:59:00 EDT, Aerosol, Route to Pharmacy Electronically, [id number], [facility]/pharmacy #[id number], 165, cm, 04/30/20 [...] tablet, 5 Refills, Maintenance, 01/20/21 16:26:00EDT, Tablet, [facility]/pharmacy #[id number], 164, cm, 01/20/21 [...] 0 Refills, Maintenance, 12/01/21 10:36:00 EST, Tablet, [facility]/pharmacy #[id number], RX in [place]., 165, cm, 08/09/21 9:47:00 EDT, Height, 98.5, [...] 01/01/22 14:06:00 EDT, 12/26/21 14:06:00 EDT, Capsule, [facility], Partial fill upon patient request [...] Orderedgabapentin 300 mg oral capsule 600 mg, Capsule, By Mouth, 12/25/21 9:00:00 EDT Start Date: 12/25/21 Stop Date: 12/25/21 Status: Completedgabapentin 300 mg oral capsule 600 mg, 2, capsule, By Mouth, 3 times a day, # 180 capsule, Refills 0, Tot. Refills 0, Maintenance, 12/25/21 14:04:00 EDT, Route to Pharmacy Electronically, [facility], Partial fill upon patient request if the prescription is for a sched... Start Date: 12/25/21 Status: Orderedlidocaine 5% topical film 1 patch, Topically, Daily, PRN Pain , Moderate, # 10 patch, 0 Refills, Maintenance, 04/26/21 10:38:00 EDT, Patch, [facility]/pharmacy #[id number], Partial fill upon patient request if the prescription is for a schedule II opioid drug., 1 patch Topically Daily,PRN:... Start Date: 04/26/21 Status: Orderednaproxen 500 mg oral tablet 1 tablet = 500 mg, By Mouth, 2 times a day, for 3 days, # 6 tablet, 0 Refills, Acute 12/28/21 14:13:00 EDT, 12/25/21 14:13:00 EDT, Tablet, [facility], Partial fill upon patient request ifthe prescription is for a schedule II opioid drug... Start Date: 12/25/21 Stop Date: 12/28/21 Status: Orderedomeprazole 20 mg oral enteric coated capsule 1 capsule = 20 mg, By Mouth, Daily, # 30 capsule, 1 Refills, Maintenance, 12/14/20 10:57:00 EST, [facility]/pharmacy #[id number], Partial fill upon [...] Acute 01/11/22 9:46:00 EDT, 12/14/21 9:46:00 EST, [facility]/pharmacy #[id number], Partial fill upon patient requestif the prescription is for a schedule II opioid d... Start Date: 12/14/21 Stop Date: 01/11/22 Status: OrderedoxyCODONE 5 mg oral tablet 15 mg, Tablet, By Mouth, Every 6 hours, PRN for Pain , Severe, Routine, 12/23/21 11:41:00 EST Start Date: 12/23/21 Stop Date: 12/25/21 Status: DiscontinuedPAP Supplies - Mask, Tubing, Filters, Head Gear, [...] Refills, Maintenance, 12/25/21 14:05:00 EDT, REC Powder, [facility], Partial fill upon patient request if the prescription is for a schedule II opio... Start Date: 12/25/21 Status: Orderedprazosin 1 mg oral capsule 2 mg, Capsule, By Mouth, 12/25/21 9:00:00 EDT Start Date: 12/25/21 Stop Date: 12/25/21 Status: Completedprazosin 2 mg oral capsule 1 capsule = 2 mg, By Mouth, Daily, # 90 capsule, 0 Refills, Maintenance, 10/11/20 3:29:00 EST, Capsule, Partial fill upon patient request if the prescription is for a schedule II opioid drug. Start Date: 10/11/20 Status: Orderedpropranolol 20 mg oral tablet 40 mg, Tablet, By Mouth, 12/25/21 9:00:00 EDT Start Date: 12/25/21 Stop Date: 12/25/21 Status: Completedpropranolol 20 mg oral tablet 40 mg, 2, tablet, By Mouth, 2 times a day, # 120 tablet, Refills 1, Tot. Refills 1, Maintenance, 11/14/21 8:40:00 EST, Route to Pharmacy Electronically, [facility]/pharmacy #[id number], Partial fill upon patient request if the prescription is for a schedule II opi... Start Date: 11/14/21 Status: Orderedpropranolol 20 mg oral tablet 40 mg, Tablet, By Mouth, 12/24/21 21:00:00 EST Start Date: 12/24/21 Stop Date: 12/24/21 Status: CompletedrisperiDONE 2 mg oral tablet 4 mg, 2, [...] Maintenance,04/26/21 10:39:00 EDT, Route to Pharmacy Electronically, [facility]/pharmacy #[id number], Partial fill upon patient request if the [...] I(Confirmed) Active Obstructive sleep apnea(Confirmed) Active Health pen[facility]entiary, active care Active coordination PADMINI Nancy Mata [phone](Confirmed) Fatty infiltration of liver(Confirmed) Active Tubular adenoma of colon(Confirmed) Active Results Orders for Microbiology Reports Name Date Blood Culture 12/19/21 Blood Culture #2 12/19/21 Urine Culture (URINE CULTURE) 12/18/21 Microbiology Reports TEST:Blood Culture STATUS:Auth (Verified) BODY SITE: SOURCE:Blood COLLECTED DATE/TIME:12/19/21 1:16 AMBlood Culture SPECIMEN DESCRIPTION : BLOOD R HAND SPECIAL REQUESTS : NONE CULTURE : NO GROWTH 5 DAYS. REPORT STATUS : FINAL 12/24/2021TEST:Blood Culture, Second Order STATUS:Auth (Verified) BODY SITE: SOURCE:Blood COLLECTED DATE/TIME:12/19/21 1:16 AMBlood Culture, Second Order SPECIMEN DESCRIPTION : BLOOD LAC SPECIAL REQUESTS : NONE CULTURE : NO GROWTH 5 DAYS. REPORT STATUS : FINAL 12/24/2021TEST:Urine Culture STATUS:Auth (Verified) BODY SITE: SOURCE:URINE COLLECTED DATE/TIME:12/18/21 10:50 PMUrine Culture SPECIMEN DESCRIPTION : URINE SPECIAL REQUESTS : NONE CULTURE : 50-100,000 COL/ML KLEBSIELLA PNEUMONIAE This isolate was identified using Maldi-TOF system These AST results were performed on the Bioconnect Systemscan ID and AST system REPORT STATUS : FINAL 12/21/2021 ORGANISM 50-100,000 COL/ML KLEBSIELLA PNEUMONIAE This isolate was identified using Maldi-TOF system METHOD MIN. INHIB. CONC. (MCG/ML) AMPICILLIN RESISTANT AMPICILLIN/SULBACTAM SUSCEPTIBLE AMOXICILLIN/CLAVULAN SUSCEPTIBLE CEFAZOLIN SUSCEPTIBLE CEFEPIME SUSCEPTIBLE CEFTRIAXONE SUSCEPTIBLE CIPROFLOXACIN SUSCEPTIBLE ERTAPENEM SUSCEPTIBLE GENTAMICIN SUSCEPTIBLE LEVOFLOXACIN SUSCEPTIBLE MEROPENEM SUSCEPTIBLE NITROFURANTOIN INTERMEDIATE PIPERACILLIN/TAZOBAC SUSCEPTIBLE TRIMETH/SULFAMETHOX SUSCEPTIBLE TETRACYCLINE SUSCEPTIBLE Vital Signs Most recent to oldest 1 2 3 [Reference Range]: Height 166 cm 166 cm 166 cm (12/24/21 8:08 PM) (12/23/21 8:38 PM) (12/22/21 7:3 4 PM) Weight 91.9 kg 93 kg 93 kg (12/19/21 12:48 PM) (12/19/21 11:46 AM) (12/19/21 7:06 AM) Oxygen Saturation [94-100 98 % 98 % 97 % %] (12/25/21 7:00 AM) (12/24/21 8:08 PM) (12/24/21 8:5 8 AM) Pulse Rate [55-90 bpm] 76 bpm 73 bpm 78 bpm (12/25/21 7:53 AM) (12/24/21 8:08 PM) (12/24/21 7:5 6 PM) Body Mass Index 33.35 33.75 33.75 [18.5-24.99] *>HHI* *>HHI* *>HHI* (12/19/21 12:48 PM) (12/19/21 11:46 AM) (12/19/21 7:06 AM) Blood Pressure 112/72 mm Hg 112/72 mm Hg 135/79 mm Hg [90-138/55-84 mm Hg] (12/25/21 7:53 AM) (12/25/21 7:53 AM) ( 2 8:08 PM) Respiratory Rate [16-30 18 br/min 16 br/min 16 br/mi n br/min] (12/25/21 1:59 PM) (12/25/21 7:58 AM) (12/25/21 7:5 3 AM) Temperature [96.8-100.4 97.6 DegF 98.0 DegF 98.3 Deg F DegF] (12/25/21 7:00 AM) (12/24/21 8:08 PM) (12/24/21 8:5 8 AM) Mode of Delivery (Oxygen) Room air Room air Room a ir (12/25/21 7:00 AM) (12/24/21 8:08 PM) (12/24/21 8:5 8 AM) Blood pressure sites Arm, right Arm, right Arm, right (12/24/21 8:08 PM) (12/24/21 8:58 AM) (12/23/21 8:3 8 PM) Temperature Route Oral Oral Oral (12/25/21 7:00 AM) (12/24/21 8:08 PM) (12/24/21 8:5 8 AM) Dry Weight 91.9 kg (12/19/21 12:48 PM) Weight Obtained Via Bed scale Patient/family stated (12/19/21 12:48 PM) (12/18/21 10:00 PM) Dry Weight Obtained Via Bed scale (12/19/21 12:48 PM) Social History Social History Type Response Smoking Status Former smoker; Other: Quit 2 015; entered on: 09/10/17 Sex
--- OUTSIDE RECORDS SUMMARY | 2022-08-20 22:44 | XMS_ITS | Continuity of Care Document ---
:1970 Author Organization [facility] Address [address] [place] [address]- Care Team Providers Name Role Phone Dawna Hernandez MD Primary Care Physician Encounter [facility] Date(s): 05/07/20 - 05/07/[address] [address]- [facility] Discharge Disposition: A-D/C Walkout Attending Physician: Not [...] 04/30/2010:59:00 EDT, Aerosol, Route to Pharmacy Electronically, [id number], [facility]/pharmacy #[id number], 165, cm, 04/30/20 10:31:00 [...] 5 Refills, Maintenance, 04/30/20 10:59:00 EDT, Tablet, [facility]/pharmacy #[id number], 165, cm, 04/30/20 10:31:00 [...] 0 Refills, Maintenance, 05/06/20 10:54:00 EDT, Tablet, [facility]/pharmacy #[id number], Partial fill upon patient re... Start [...] pain(Confirmed) Active Obstructive sleep apnea(Confirmed) Active Health halfway, active care Active [facility] [phone](Confirmed) Fatty infiltration of liver(Confirmed) Active Vital Signs Most recent to oldest [Reference Range]: 1 2 Oxygen Saturation [94-100 %] 98 % 100 % (05/07/20 5:48 PM) (05/07/20 2:34 PM) Pulse Rate [55-90 bpm] 102 bpm 99 bpm *H* *H* (05/07/20 5:48 PM) (05/07/20 2:34 PM) Blood Pressure [90-138/55-84 mm Hg] 132/86 mm Hg 121/ 82 mm Hg (05/07/20 5:48 PM) (05/07/20 2:34 PM) Respiratory Rate [16-30 br/min] 20 br/min 16 br/mi n (05/07/20 5:48 PM) (05/07/20 2:34 PM) Temperature [96.8-100.4 DegF] 98.0 DegF (05/07/20 2:34 PM) Mode of Delivery (Oxygen) Room air Room air (05/07/20 5:48 PM) (05/07/20 2:34 PM) Blood pressure sites Arm, right Arm, right (05/07/20 5:48 PM) (05/07/20 2:34 PM) Temperature Route Oral (05/07/20 2:34 PM) Social History Social History Type Response Smoking Status Former smoker; Other: Quit 2 015; entered on: 09/10/17 Sex
--- OUTSIDE RECORDS SUMMARY | 2022-08-20 22:44 | XMS_ITS | Continuity of Care Document ---
:1970 Author Organization [facility] Address [address] [place] [address]- Care Team Providers Name Role Phone Dawna Hernandez MD Primary Care Physician Encounter [facility] ACCT R [id number] Date(s): 02/18/21 - 03/24/[address] [address] Attending Physician: Marcellus Bardales MD Admitting Physician: Marcellus Bardales MD Referring Physician: Marcellus Bardales MD Allergies, Adverse Reactions, Alerts Substance Reaction [...] 04/30/2010:59:00 EDT, Aerosol, Route to Pharmacy Electronically, [id number], [facility]/pharmacy #[id number], 165, cm, 04/30/20 10:31:00 EDT, [...] tablet, 5 Refills, Maintenance, 01/20/21 16:26:00EDT, Tablet, [facility]/pharmacy #[id number], 164, cm, 01/20/21 15:43:00 EDT, [...] tableta en la manana y noche x3ds. [place] katy tableta en la manana y tarde y antes de acostarse., # 90 capsule, Refills 1, Tot. Refills 1, Maintenan... Start Date: 01/18/21 Status: Orderedomeprazole 20 mg oral enteric coated capsule 1 capsule = 20 mg, By Mouth, Daily, # 30 capsule, 1 Refills, Maintenance, 12/14/20 10:57:00 EST, [facility]/pharmacy #[id number], Partial fill upon patient request [...] 0 Refills, Maintenance, 03/11/21 16:55:00 EDT, Tablet, [facility]/pharmacy #[id number], Partial fill upon patient re... [...] long-term, active care Active coordination PADMINI Mata [phone](Confirmed) Fatty infiltration of liver(Confirmed) Active Tubular adenoma of colon(Confirmed) Active Social History Social History Type Response Smoking Status Former smoker; Other: Quit 2 015; entered on: 09/10/17 Sex
--- OUTSIDE RECORDS SUMMARY | 2022-08-20 22:44 | XMS_ITS | Continuity of Care Document ---
:1970 Author Organization [facility] Address [address] [place] [address]- Care Team Providers Name Role Phone Dawna Hernandez MD Primary Care Physician Encounter [facility] Date(s): 05/12/21 - 06/11/[address] [address] Allergies, Adverse Reactions, Alerts Substance Reaction [...] 04/30/2010:59:00 EDT, Aerosol, Route to Pharmacy Electronically, [id number], [facility]/pharmacy #[id number], 165, cm, 04/30/20 10:31:00 [...] tablet, 5 Refills, Maintenance, 01/20/21 16:26:00EDT, Tablet, [facility]/pharmacy #[id number], 164, cm, 01/20/21 15:43:00 EDT, Height, [...] 0 Refills, Maintenance, 01/20/21 16:26:00 EDT, Tablet, [facility]/pharmacy #[id number], Partial fill upon patient [...] tableta en la manana y noche x3ds. [place] katy tableta en la manana y tarde y antes de acostarse., # 90 capsule, Refills 1, Tot. Refills 1, Maintenan... Start Date: 01/18/21 Status: Orderedlidocaine 5% topical film 1 patch, Topically, Daily, PRN Pain , Moderate, # 10 patch, 0 Refills, Maintenance, 04/26/21 10:38:00 EDT, Patch, [facility]/pharmacy #[id number], Partial fill upon patient request if the prescription is for a schedule II opioid drug., 1 patch Topically Daily,PRN:... Start Date: 04/26/21 Status: Orderedomeprazole 20 mg oral enteric coated capsule 1 capsule = 20 mg, By Mouth, Daily, # 30 capsule, 1 Refills, Maintenance, 12/14/20 10:57:00 EST, [facility]/pharmacy #[id number], Partial fill upon patient [...] EDT, Route to Pharmacy Electronically, [facility]/pharmacy #[id number], Partial fill upon patient [...] EDT, Route to Pharmacy Electronically, [facility]/pharmacy #[id number], Partial fill upon patient request if the [...] [facility], active care Active [facility] [phone](Confirmed) Fatty infiltration of liver(Confirmed) Active Tubular adenoma of colon(Confirmed) Active Social History Social History Type Response Smoking Status Former smoker; Other: Quit 2 015; entered on: 09/10/17 Sex
--- OUTSIDE RECORDS SUMMARY | 2022-08-20 22:44 | XMS_ITS | Continuity of Care Document ---
:1970 Author Organization [facility] Address [address] [place] [address]- Care Team Providers Name Role Phone Dawna Hernandez MD Primary Care Physician Encounter [facility] Date(s): 10/23/19 - 10/23/[address] [address]- [facility] Encounter Diagnosis Acute exacerbation of chronic low back pain (Final) - 10/23/19 Discharge Disposition: A-D/C Home Attending Physician: Lucero Casanova DO Admitting Physician: Lucero Casanova DO Referring Physician: Not on Staff, Referring MD [...] Maintenance, 189:52:06, Aerosol, Route to Pharmacy Electronically, [id number], [facility] [id number], Compound Start Date: 11/21/17 Status: OrderedAlcohol Wipes [...] 09/10/17 9:39:22, Compound Start Date: 09/10/17 Status: Orderedcyclobenzaprine 5 mg oral tablet 1 tablet = 5 mg, By Mouth, 3 times a day, for 7 days, # 21 tablet, 0 Refills, Acute 10/30/19 19:34:00 EST, 10/23/19 19:34:00 EST, Tablet, [facility], 165, cm, 10/05/19 8:39:00 EST, Height, 97.3, kg, 10/23/19 17:43:00 EST, Dry Weight Start Date: 10/23/19 Stop Date: 10/30/19 Status: Orderedfamotidine 20 mg oral tablet 20 mg, 1, tablet, By Mouth, Daily at bedtime, # 30 tablet, Refills 0, Tot. Refills 0, Maintenance, 07/14/19 12:16:28 EDT, Route to Pharmacy Electronically, [id number], [facility]/pharmacy #[id number] Start Date: 07/14/19 Status: OrderedFLUoxetine 20 mg [...] 09/15/19 11:29:48 EST, Route to Pharmacy Electronically, [id number], [facility]/pharmacy #[id number] Start Date: 09/15/19 Stop Date: 10/15/19 Status: OrderedpredniSONE 20 mg oral tablet 3 tablet = 60 mg, By Mouth, Daily, for 5 days, # 15 tablet, 0 Refills, Acute 10/28/19 19:35:00 EST, 10/23/19 19:35:00 EST, Tablet, [facility], 165, cm, 10/05/19 8:39:00 EST, Height, 97.3,kg, 10/23/19 17:43:00 EST, Dry Weight Start Date: 10/23/19 Stop Date: 10/28/19 Status: OrderedrisperiDONE 1 mg oral tablet 1 [...] 07/14/19 12:16:45 EDT, Route to Pharmacy Electronically, [id number], [facility]/pharmacy #[id number] Start Date: 07/14/19 Status: OrderedWalker See [...] Active knee(Confirmed) Fatty infiltration of liver(Confirmed) Active Vital Signs Most recent to oldest [Reference 1 2 3 Range]: Weight 97.3 kg 97.3 kg 97.3 kg (10/23/19 5:43 PM) (10/23/19 2:04 PM) (10/23/19 1:56 P M) Oxygen Saturation [94-100 %] 100 % 100 % 100 % (10/23/19 5:43 PM) (10/23/19 1:56 PM) (10/23/19 1:51 P M) Pulse Rate [55-90 bpm] 77 bpm 89 bpm 90 bpm (10/23/19 5:43 PM) (10/23/19 1:56 PM) (10/23/19 1:51 P M) Blood Pressure [90-138/55-84 mm 112/76 mm Hg 131/80 mm Hg Hg] (10/23/19 5:43 PM) (10/23/19 1:56 PM) Respiratory Rate [16-30 br/min] 18 br/min 16 br/min (10/23/19 5:43 PM) (10/23/19 1:56 PM) Temperature [96.8-100.4 DegF] 98.5 DegF 98.4 DegF (10/23/19 5:43 PM) (10/23/19 1:56 PM) Mode of Delivery (Oxygen) Room air Room air Room a ir (10/23/19 5:43 PM) (10/23/19 1:56 PM) (10/23/19 1:51 P M) Blood pressure sites Arm, right Arm, right (10/23/19 5:43 PM) (10/23/19 1:56 PM) Temperature Route Oral Oral (10/23/19 5:43 PM) (10/23/19 1:56 PM) Dry Weight 97.3 kg 97.3 kg 97.3 kg (10/23/19 5:43 PM) (10/23/19 2:04 PM) (10/23/19 1:56 P M) Weight Obtained Via Standing scale (10/23/19 1:56 PM) Dry Weight Obtained Via Standing scale (10/23/19 1:56 PM) Social History Social History Type Response Smoking Status Former smoker; Other: Quit 2 015; entered on: 09/10/17 Sex
--- OUTSIDE RECORDS SUMMARY | 2022-08-20 22:44 | XMS_ITS | Continuity of Care Document ---
:1970 Author Organization [facility] Address [address] [place] [address]- Care Team Providers Name Role Phone Dawna Hernandez MD Primary Care Physician Encounter [facility] Date(s): 04/05/20 - 05/06/[address] [address]- [facility] Attending Physician: Sabrina Walton NP Admitting Physician: Anton MAYBERRY, Sabrina Tejada Allergies, Adverse Reactions, Alerts Substance Reaction Severity [...] 04/30/2010:59:00 EDT, Aerosol, Route to Pharmacy Electronically, [id number], [facility]/pharmacy #[id number], 165, cm, 04/30/20 10:31:00 [...] 5 Refills, Maintenance, 04/30/20 10:59:00 EDT, Tablet, [facility]/pharmacy #[id number], 165, cm, 04/30/20 10:31:00 [...] 5 Refills, Maintenance, 11/20/19 12:00:00 EST, Tablet, [facility]/pharmacy #[id number], 165, cm, 11/20/19 11:16:00 EST, Height, 97.3, kg, 10/23/19 17:43:00 EST, Dry Weight Start Date: 11/20/19 Status: OrderedoxyCODONE 10 mg oral tablet 1 tablet = 10 mg, By Mouth, Every 6 hours, PRN as needed for pain, dx: M54.5 on agreement masspat checked do not fill til 05/06/20, # 20 tablet, 0 Refills, Maintenance, 05/06/20 10:54:00 EDT, Tablet, [facility]/pharmacy #[id number], Partial fill upon patient re... Start Date: 05/06/20 Status: OrderedraNITIdine 75 mg oral tablet 1 tablet = 75 mg, By Mouth, Daily, # 28 tablet, 0 Refills, Maintenance, 04/30/20 10:58:00 EDT, Tablet, [facility]/pharmacy #[id number], 165, cm, 04/30/20 10:31:00 [...] Health custodial, active care Active coordination PADMINI Mata [phone](Confirmed) Fatty infiltration of liver(Confirmed) Active Social History Social History Type Response Smoking Status Former smoker; Other: Quit 2 015; entered on: 09/10/17 Sex
--- OUTSIDE RECORDS SUMMARY | 2022-08-20 22:44 | XMS_ITS | Continuity of Care Document ---
:1970 Author Organization [facility] Address [address] [place] [address]- Care Team Providers Name Role Phone Dawna Hernandez MD Primary Care Physician Encounter [facility] Date(s): 12/09/20 - 12/09/[address] [address] Discharge Disposition: A-D/C Home Attending Physician: Yuniel Stevens MD Admitting Physician: Yuniel Stevens MD Referring Physician: Yuniel Stevens MD Allergies, Adverse Reactions, Alerts Substance Reaction [...] 04/30/2010:59:00 EDT, Aerosol, Route to Pharmacy Electronically, [id number], [facility]/pharmacy #[id number], 165, cm, 04/30/20 10:31:00 [...] 5 Refills, Maintenance, 04/30/20 10:59:00 EDT, Tablet, [facility]/pharmacy #[id number], 165, cm, 04/30/20 10:31:00 [...] Start Date: 10/28/20 Stop Date: 11/27/20 Status: OrderedoxyCODONE 15 mg oral tablet 1 tablet = 15 mg, By Mouth, Every 6 hours, PRN as needed for pain, dx: M54.5 on agreement masspat checked do not fill til 11/22/20, # 56 tablet, 0 Refills, Maintenance, 11/22/20 17:46:00 EST, Tablet, [facility]/pharmacy #[id number], Partial fill upon patient req... Start Date: 11/22/20 Stop Date: 12/06/20 Status: Orderedpantoprazole 40 mg oral delayed release [...] 14:29:00 EST, Compound Start Date: 08/19/20 Status: OrderedPEG-3350 with Electrolytes (Eqv-NuLYTELY) oral powder for reconstitution See Instructions, as directed, # 1 each, 0 Refills, Maintenance, 12/07/20 13:48:00 EST, [facility] #[id number], Ok to SUB for ANY gallon prep, as directed, 165, cm, 12/02/20 19:23:00 EST, Height, 96.9, kg, 12/02/20 19:23:00 EST, Dry Weight Start Date: 12/07/20 Status: Orderedprazosin 2 mg oral capsule 1 [...] home, active care Active coordination PADMINI Mata [phone](Confirmed) Fatty infiltration of liver(Confirmed) Active Tubular adenoma of colon(Confirmed) Active Vital Signs Most recent to oldest 1 2 3 [Reference Range]: Height 165 cm (12/09/20 2:35 PM) Oxygen Saturation [94-100 100 % 99 % 99 % %] (12/09/20 4:42 PM) (12/09/20 4:28 PM) (12/09/20 2:3 5 PM) Pulse Rate [55-90 bpm] 90 bpm (12/09/20 2:35 PM) Blood Pressure 118/82 mm Hg 107/65 mm Hg 122/81 mm Hg [90-138/55-84 mm Hg] (12/09/20 4:42 PM) (12/09/20 4:28 PM) ( 1 2:35 PM) Respiratory Rate [16-30 20 br/min 14 br/min 18 br/mi n br/min] (12/09/20 4:42 PM) *L* (12/09/20 2:35 PM) (12/09/20 4:28 PM) Temperature [96.8-100.4 98 DegF DegF] (12/09/20 2:35 PM) Mode of Delivery (Oxygen) Room air Room air Room a ir (12/09/20 4:42 PM) (12/09/20 4:28 PM) (12/09/20 2:3 5 PM) Temperature Route Temporal (12/09/20 2:35 PM) Dry Weight 90.5 kg (12/09/20 2:35 PM) Dry Weight Obtained Via Patient/family stated (12/09/20 2:35 PM) Social History Social History Type Response Smoking Status Former smoker; Other: Quit 2 015; entered on: 09/10/17 Sex
--- OUTSIDE RECORDS SUMMARY | 2022-08-20 22:44 | XMS_ITS | Continuity of Care Document ---
:1970 Author Organization [facility] Address [address] [place] [address]- Care Team Providers Name Role Phone Dawna Hernandez MD Primary Care Physician Encounter [facility] ACCT R [id number] Date(s): 02/15/22 - 03/17/[address] [address] Attending Physician: AdmtrLori Admitting Physician: Admtr, Ar8 Referring Physician: Admtr, [...] virus vaccine, inactivated 12/06/15 Given SARS-CoV-2 mRNA (exvicwt-bqwb-fujfd) vax 01/26/22 Given SARS-CoV-2 mRNA (uaxlhty-lffq-lxarn) vax 12/28/21 Given tetanus/diphtheria/pertussis, acel(Tdap) 03/29/19 Given tetanus/diphtheria/pertussis, acel(Tdap) 09/10/17 Given pneumococcal 23-valent vaccine 04/08/18 Recorded pneumococcal 23-valent vaccine 04/22/17 Recorded pneumococcal 23-valent vaccine 12/21/12 Given Medications albuterol CFC free 90 mcg/inh inhalation aerosol 2, puffs, Inhalation, Every 6 hours, PRN, # 1 each, Refills 6, Tot. Refills 6, Maintenance, 04/30/2010:59:00 EDT, Aerosol, Route to Pharmacy Electronically, [id number], [facility]/pharmacy #[id number], 165, cm, 04/30/20 10:31:00 [...] tablet, 5 Refills, Maintenance, 01/20/21 16:26:00EDT, Tablet, [facility]/pharmacy #[id number], 164, cm, 01/20/21 15:43:00 EDT, Height, 98, kg, 01/11/21 18:32:00 EDT, Dry Weight Start Date: 01/20/21 Status: OrderedBack Brace See Instructions, # 1 each, Maintenance, Dx DJD, back pain. Wear for support, 08/09/21 10:06:00 EDT,Compound Start Date: 08/09/21 Status: Orderedcetirizine 10 mg oral tablet 1 tablet, By Mouth, Daily, PRN NEEDED FOR ALLERGIES, # 30 tablet, 0 Refills, [facility], 165, cm, 02/15/22 10:35:00 EDT, Height, 90.7, [...] 12/25/21 14:04:00 EDT, Route to Pharmacy Electronically, [facility], Partial fill upon patient [...] # 60 tablet, 0 Refills, Physician Stop, [facility], 165, cm, 02/15/22 10:35:00 EDT, Height, 90.7, kg, 02/06/22 19:49:00 EDT, Dry Weight Start Date: 02/27/22 Stop Date: 03/29/22 Status: Orderedomeprazole 20 mg oral enteric coated capsule 1 capsule = 20 mg, By Mouth, Daily, # 30 capsule, 1 Refills, Maintenance, 12/14/20 10:57:00 EST, [facility]/pharmacy #[id number], Partial fill upon patient [...] Acute 04/07/22 16:25:00 EDT, 03/10/22 16:25:00 EDT, [facility]/pharmacy #[id number], Partial fill upon patient [...] tablet, Refills 5, Route to Pharmacy Electronically, [facility], 166, cm, 12/28/21 10:33:00 EDT, Height, 91.9, [...] Maintenance,04/26/21 10:39:00 EDT, Route to Pharmacy Electronically, [facility]/pharmacy #[id number], Partial fill upon patient request if the [...] I(Confirmed) Active Obstructive sleep apnea(Confirmed) Active Health fci, active care Active coordination PADMINI Mata [phone](Confirmed) Fatty infiltration of liver(Confirmed) Active Tubular adenoma of colon(Confirmed) Active Social History Social History Type Response Smoking Status Former smoker; Other: Quit 2 015; entered on: 09/10/17 Sex
--- OUTSIDE RECORDS SUMMARY | 2022-08-20 22:44 | XMS_ITS | Continuity of Care Document ---
:1970 Author Organization [facility] Address [address] [place] [address]- Care Team Providers Name Role Phone Daja MAYBERRY, Mirta Primary Care Physician Encounter [facility] Date(s): 11/29/21 - 12/29/[address] [address] Allergies, Adverse Reactions, Alerts Substance Reaction Severity Status lisinopril Angioedema Active Shrimp Active Immunizations Given and Recorded Vaccine Date Status Refusal Reason SARS-CoV-2 mRNA (ziyfxjy-qrxd-iimdx) vax 12/28/21 Given influenza virus vaccine, inactivated [...] 12/25/21 14:28:00 EDT, Route to Pharmacy Electronically, [facility], Partial fill upon patient request if the... Start Date: 12/25/21 Stop Date: 01/08/22 Status: OrderedAerochamber See Instructions, # 1 each, Maintenance, as instructed, 11/21/17 9:52:57, Compound Start Date: 11/21/17 Status: Orderedalbuterol CFC free 90 mcg/inh inhalation aerosol 2, puffs, Inhalation, Every 6 hours, PRN, # 1 each, Refills 6, Tot. Refills 6, Maintenance, 04/30/2010:59:00 EDT, Aerosol, Route to Pharmacy Electronically, [id number], [facility]/pharmacy #[id number], 165, cm, 04/30/20 10:31:00 [...] tablet, 5 Refills, Maintenance, 01/20/21 16:26:00EDT, Tablet, [facility]/pharmacy #[id number], 164, cm, 01/20/21 15:43:00 EDT, [...] 0 Refills, Maintenance, 12/01/21 10:36:00 EST, Tablet, [facility]/pharmacy #[id number], RX in English., 165, cm, 08/09/21 9:47:00 EDT, Height, 98.5, [...] 01/01/22 14:06:00 EDT, 12/26/21 14:06:00 EDT, Capsule, [facility], Partial fill upon patient request [...] 12/25/21 14:04:00 EDT, Route to Pharmacy Electronically, [facility], Partial fill upon patient request [...] 01/27/22 10:52:00 EDT, 12/28/21 10:52:00 EDT, Tablet, [facility]/pharmacy #[id number], Partial fill [...] Acute 01/11/22 9:46:00 EDT, 12/14/21 9:46:00 EST, [facility]/pharmacy #[id number], Partial fill upon patient requestif the [...] Refills, Maintenance, 12/25/21 14:05:00 EDT, REC Powder, [facility], Partial fill upon patient request [...] 11/14/21 8:40:00 EST, Route to Pharmacy Electronically, [facility]/pharmacy #[id number], [...] EDT, Route to Pharmacy Electronically, [facility]/pharmacy #[id number], Partial fill upon patient request if the [...] I(Confirmed) Active Obstructive sleep apnea(Confirmed) Active Health longterm, active care Active coordination PADMINI Mata [phone](Confirmed) Fatty infiltration of liver(Confirmed) Active Tubular adenoma of colon(Confirmed) Active Social History Social History Type Response Smoking Status Former smoker; Other: Quit 2 015; entered on: 09/10/17 Sex
--- OUTSIDE RECORDS SUMMARY | 2022-08-20 22:44 | XMS_ITS | Continuity of Care Document ---
:1970 Author Organization [facility] Address [address] [place] [address]- Care Team Providers Name Role Phone Dawna Hernandez MD Primary Care Physician Encounter [facility] Date(s): 12/02/20 - 12/02/[address] [address]- Discharge Disposition: A-D/C Home Attending Physician: Bethanie Mahajan MD Admitting Physician: Bethanie Mahajan MD Referring Physician: Not on Staff, Referring [...] 04/30/2010:59:00 EDT, Aerosol, Route to Pharmacy Electronically, [id number], [facility]/pharmacy #[id number], 165, cm, 04/30/20 10:31:00 EDT, Hei... Start Date: 04/30/20 Status: OrderedAlcohol Wipes See Instructions, # 1 box, Maintenance, please use before testing three times a day: dx type 2 diabetes, 04/04/18 18:52:53 EDT, Compound Start Date: 04/04/18 Status: Orderedatorvastatin 20 mg oral tablet 1 tablet = 20 mg, By Mouth, Daily, # 30 tablet, 5 Refills, Maintenance, 04/30/20 10:59:00 EDT, Tablet, [facility]/pharmacy #[id number], 165, cm, 04/30/20 10:31:00 EDT, Height, [...] Start Date: 10/28/20 Stop Date: 11/27/20 Status: OrderedMorPHINE Immediate Release Tablet 15 mg, Tablet, By Mouth, Once, STAT, 12/02/20 20:04:00 EST, Stop date 12/02/20 20:04:00 EST Start Date: 12/02/20 Stop Date: 12/02/20 Status: CompletedoxyCODONE 15 mg oral tablet 1 tablet = 15 mg, By Mouth, Every 6 hours, PRN as needed for pain, dx: M54.5 on agreement masspat checked do not fill til 11/22/20, # 56 tablet, 0 Refills, Maintenance, 11/22/20 17:46:00 EST, Tablet, [facility]/pharmacy #[id number], Partial fill upon patient req... Start Date: [...] Active Health detention, active care Active coordination [facility] [phone](Confirmed) Fatty infiltration of liver(Confirmed) Active Tubular adenoma of colon(Confirmed) Active Results Radiology Reports Exam Date Time Procedure Performing Provider Status 12/02/20 11:16 AM Knee 1 or 2 Views Left Lashanda Solitario; Auth (Ve rified) Notes:(Knee 1 or 2 Views Left) Reason For Exam: PainRESULT: Knee 1 or 2 Views Left Knee 2 Views Left, Hx of Present Illness: back pain that radiates to pelvic area, Left leg pain x Sunday. No swelling no deformity. No sob . No known trauma. No sick contacts. Denies incontinence or urinary issues.; Reason: Pain; Clinical Question(s): Osteomyelitis COMPARISON: 06/16/2020. FINDINGS: There is no evidence of acute or healing fracture, dislocation or bone lesion. No arthritic changes. No osteochondral defects or intra-articular loose bodies. No evidence of joint effusion. Soft tissue prominence infrapatellar region is decreased from 06/16/2020. IMPRESSION: 1. No radiographic evidence of osteomyelitis. 2. Decrease in soft tissue prominence of the infrapatellar region from 06/16/2020 I have personally reviewed the images and I agree with this report. WSN: [id number] Ordering Physician: Elvira Landin Dictated By: Parish Canada MD Dictated Date/Time: 12/02/20 11:29 a Reviewed By: Ana Luisa Mendes MD Signed By: Ana Luisa Mendes MD Signed Date/Time: 12/02/20 11:34 am Transcribed By: HARPAL Transcribed Date/Time: 12/02/20 11:23 am Vital Signs Most recent to oldest 1 2 3 [Reference Range]: Height 165 cm 165 cm 165 cm (12/02/20 7:23 PM) (12/02/20 4:26 PM) (12/02/20 1:4 8 PM) Weight 96.9 kg 96.9 kg 96.9 kg (12/02/20 7:23 PM) (12/02/20 4:26 PM) (12/02/20 1:4 8 PM) Oxygen Saturation [94-100 %] 98 % 99 % 97 % (12/02/20 7:23 PM) (12/02/20 4:26 PM) (12/02/20 1:4 8 PM) Pulse Rate [55-90 bpm] 86 bpm 91 bpm 93 bpm (12/02/20 7:23 PM) *H* *H* (12/02/20 4:26 PM) (12/02/20 1:48 PM) Body Mass Index [18.5-24.99] 35.59 35.59 35. 59 *>HHI* *>HHI* *>HHI* (12/02/20 7:23 PM) (12/02/20 4:26 PM) (12/02/20 1:4 8 PM) Blood Pressure [90-138/55-84 mm 124/83 mm Hg 126/79 mm Hg 130/81 mm Hg Hg] (12/02/20 7:23 PM) (12/02/20 4:26 PM) (12/02/20 1:4 8 PM) Respiratory Rate [16-30 br/min] 16 br/min 18 br/min 16 br/min (12/02/20 8:38 PM) (12/02/20 7:23 PM) (12/02/20 4:2 6 PM) Temperature [96.8-100.4 DegF] 98.4 DegF 98.6 DegF (12/02/20 7:23 PM) (12/02/20 9:48 AM) Liters per Minute 0 L/min (12/02/20 9:24 AM) Mode of Delivery (Oxygen) Room air Room air Room a ir (12/02/20 7:23 PM) (12/02/20 4:26 PM) (12/02/20 1:4 8 PM) Blood pressure sites Arm, right Arm, left Arm, left (12/02/20 7:23 PM) (12/02/20 4:26 PM) (12/02/20 1:4 8 PM) Temperature Route Oral Oral (12/02/20 7:23 PM) (12/02/20 9:48 AM) Dry Weight 96.9 kg 96.9 kg 96.9 kg (12/02/20 7:23 PM) (12/02/20 4:26 PM) (12/02/20 1:4 8 PM) Weight Obtained Via Standing scale (12/02/20 9:48 AM) Dry Weight Obtained Via Standing scale (12/02/20 9:48 AM) Social History Social History Type Response Smoking Status Former smoker; Other: Quit 2 015; entered on: 09/10/17 Sex
--- OUTSIDE RECORDS SUMMARY | 2022-08-20 22:44 | XMS_ITS | Continuity of Care Document ---
:1970 Author Organization [facility] Address [address] [place] [address]- Care Team Providers Name Role Phone Dawna Hernandez MD Primary Care Physician Encounter [facility] Date(s): 02/18/21 - 04/14/[address] [address] Attending Physician: Marcellus Bardales MD Admitting Physician: [...] 04/30/2010:59:00 EDT, Aerosol, Route to Pharmacy Electronically, [id number], [facility]/pharmacy #[id number], 165, cm, 04/30/20 10:31:00 EDT, Hei... [...] 5 Refills, Maintenance, 01/20/21 16:26:00EDT, Tablet, [facility]/pharmacy #[id number], 164, cm, 01/20/21 15:43:00 EDT, Height, [...] 04/18/21 4:48:00 EDT, 04/08/21 4:48:00 EDT, Tablet, [facility]/pharmacy #[id number], Partial fill upon patient request if the prescription is for a schedule II opioid drug., 16... Start Date: 04/08/21 Stop Date: 04/18/21 Status: Orderedcetirizine 10 mg oral tablet 1 tablet = 10 mg, By Mouth, Daily, # 90 tablet, 0 Refills, Maintenance, 01/20/21 16:26:00 EDT, Tablet, [facility]/pharmacy #[id number], Partial fill upon patient request if [...] tableta en la manana y noche x3ds. [place] katy tableta en la manana y tarde y antes de acostarse., # 90 capsule, Refills 1, Tot. Refills 1, Maintenan... Start Date: 01/18/21 Status: Orderedomeprazole 20 mg oral enteric coated capsule 1 capsule = 20 mg, By Mouth, Daily, # 30 capsule, 1 Refills, Maintenance, 12/14/20 10:57:00 EST, [facility]/pharmacy #[id number], Partial fill upon patient request if [...] pain(Confirmed) Active Obstructive sleep apnea(Confirmed) Active Health ch[facility], active care Active coordination PADMINI Mata [phone](Confirmed) Fatty infiltration of liver(Confirmed) Active Tubular adenoma of colon(Confirmed) Active Social History Social History Type Response Smoking Status Former smoker; Other: Quit 2 015; entered on: 09/10/17 Sex
--- OUTSIDE RECORDS SUMMARY | 2022-08-20 22:45 | XMS_ITS | Continuity of Care Document ---
:1970 Author Organization [facility] Address [address] [place] [address]- Care Team Providers Name Role Phone Dawna Hernandez MD Primary Care Physician Encounter [facility] Date(s): 05/23/21 - 06/22/21 [facility] [address] [place] [address]- Attending Physician: AdmLori sandhu Admitting Physician: AdmtrLori [...] 04/30/2010:59:00 EDT, Aerosol, Route to Pharmacy Electronically, [id number], [facility]/pharmacy #[id number], 165, cm, 04/30/20 10:31:00 EDT, Hei... Start Date: 7/17/20 Status: OrderedAlcohol Wipes See Instructions, # 1 [...] tableta en la manana y noche x3ds. [place] katy tableta en la manana y tarde y antes de acostarse., # 90 capsule, Refills 1, Tot. Refills 1, Maintenan... Start Date: 01/18/21 Status: Orderedlidocaine 5% topical film 1 patch, Topically, Daily, PRN Pain , Moderate, # 10 patch, 0 Refills, Maintenance, 04/26/21 10:38:00 EDT, Patch, [facility]/pharmacy #[id number], Partial fill upon patient request if the prescription is for a schedule II opioid drug., 1 patch Topically Daily,PRN:... Start Date: 04/26/21 Status: Orderedomeprazole 20 mg oral enteric coated capsule 1 capsule = 20 mg, By Mouth, Daily, # 30 capsule, 1 Refills, Maintenance, 12/14/20 10:57:00 EST, [facility]/pharmacy #[id number], Partial fill upon patient [...] 16:26:00 EDT, Route to Pharmacy Electronically, [facility]/pharmacy #[id number], Partial fill upon patient [...] be used to helpwith hygeine dx: M54.5, 04/16/20 17:13:00 EDT, Supply Start Date: 01/29/20 Status: [...] 10:39:00 EDT, Route to Pharmacy Electronically, [facility]/pharmacy #[id number], Partial fill upon patient request if the [...] senior living, active care Active [facility] [phone](Confirmed) Fatty infiltration of liver(Confirmed) Active Tubular adenoma of colon(Confirmed) Active Social History Social History Type Response Smoking Status Former smoker; Other: Quit 2 015; entered on: 09/10/17 Sex
--- OUTSIDE RECORDS SUMMARY | 2022-08-20 22:45 | XMS_ITS | Continuity of Care Document ---
:1970 Author Organization [facility] Address [address] [place] [address]- Care Team Providers Name Role Phone Dawna Hernandez MD Primary Care Physician Encounter [facility] Date(s): 05/24/20 - 06/23/[address] [address]- [facility] Allergies, Adverse Reactions, Alerts Substance Reaction Severity [...] 06/20/20 13:59:00 EDT, Route to Pharmacy Electronically, [facility], 165, cm, 06/19/20 3:51:00 [...] 04/30/2010:59:00 EDT, Aerosol, Route to Pharmacy Electronically, [id number], [facility]/pharmacy #[id number], 165, cm, 04/30/20 [...] 06/20/20 14:06:00 EDT, Route to Pharmacy Electronically, [facility], 165, cm, 06/19/20 3:51:00 EDT, Height, 95.8, kg, 06/17/20 2:50:00 EDT, Dry Weight Start Date: 06/20/20 Status: Orderedatorvastatin 20 mg oral tablet 1 tablet = 20 mg, By Mouth, Daily, # 30 tablet, 5 Refills, Maintenance, 04/30/20 10:59:00 EDT, Tablet, [facility]/pharmacy #[id number], 165, cm, 04/30/20 [...] 5 Refills, Maintenance, 11/20/19 12:00:00 EST, Tablet, [facility]/pharmacy #[id number], 165, cm, 11/20/19 11:16:00 EST, Height, 97.3, kg, 10/23/19 17:43:00 EST, Dry Weight Start Date: 11/20/19 Status: OrderedHibiclens 4% soap 1 applicator, Topically, Daily, Please use to cleanse left knee daily when showering, # 960 mL, 0 Refills, Soft Stop, 06/20/20 14:06:00 EDT, [facility], 1 applicator Topically Daily,Instr:Please use to cleanse left knee daily when shower... Start Date: 06/20/20 Status: OrderedlevoFLOXacin 500 mg oral tablet 1 tablet = 500 mg, By Mouth, Every 24 hours, for 14 days, # 14 tablet, 0 Refills, Acute 07/04/20 13:59:00 EDT, 06/20/20 13:59:00 EDT, Tablet, [facility], 165, cm, 06/19/20 3:51:00 EDT, Height, 95.8, kg, 06/17/20 2:50:00 EDT, Dry Weight Start Date: 06/20/20 Stop Date: 07/04/20 Status: Orderedomeprazole 20 mg oral delayed release tablet 1 tablet = 20 mg, By Mouth, Daily, # 30 tablet, 2 Refills, Maintenance, 05/24/20 10:57:00 EDT, EC Tablet, [id number], cm, 05/06/20 10:29:00 EDT, Height, [...] 17:13:00 EDT, Supply Start Date: 01/29/20 Status: Nell See Instructions, # 1 each, Maintenance, Dx: [...] snf, active care Active coordination PADMINI Mata [phone](Confirmed) Fatty infiltration of liver(Confirmed) Active Social History Social History Type Response Smoking Status Former smoker; Other: Quit 2 015; entered on: 09/10/17 Sex
--- OUTSIDE RECORDS SUMMARY | 2022-08-20 22:45 | XMS_ITS | Continuity of Care Document ---
:1970 Author Organization [facility] Address [address] [place] [address]- Care Team Providers Name Role Phone Dawna Hernandez MD Primary Care Physician Encounter [facility] Date(s): 12/15/20 - 01/14/[address] [address] Allergies, Adverse Reactions, Alerts Substance Reaction Severity [...] 04/30/2010:59:00 EDT, Aerosol, Route to Pharmacy Electronically, [id number], [facility]/pharmacy #[id number], 165, cm, 04/30/20 10:31:00 EDT, [...] 12/19/20 18:18:00 EST, Route to Pharmacy Electronically, [facility]/pharmacy #[id number], Partial fill upon patient request if the prescription is for a schedule II opioid drug., 164, cm,... Start Date: 12/19/20 Stop Date: 01/18/21 Status: Orderedatorvastatin 20 mg oral tablet 1 tablet = 20 mg, By Mouth, Daily at bedtime, # 30 tablet, 5 Refills, Maintenance, 04/30/20 10:59:00EDT, Tablet, [facility]/pharmacy #[id number], 165, cm, 04/30/20 10:31:00 EDT, [...] 01/11/21 19:56:00 EDT, Route to Pharmacy Electronically, [facility]/pharmacy #[id number], Partial fill upon patient request... Start Date: [...] By Mouth, Daily, Para dolor de espalda. Daphne en la noche antes de dormir., # 30 capsule, Refills 1, Tot. Refills 1, Maintenance, 01/13/21 14:21:00 EDT, Route to Pharmacy Electronically, [facility]/pharmacy #[id number], Partial fill upon patient... Start Date: 01/13/21 Stop Date: 03/14/21 Status: Orderedomeprazole 20 mg oral enteric coated capsule 1 capsule = 20 mg, By Mouth, Daily, # 30 capsule, 1 Refills, Maintenance, 12/14/20 10:57:00 EST, [facility]/pharmacy #[id number], Partial fill upon patient request [...] 0 Refills, Maintenance, 12/15/20 17:44:00 EST, Tablet, [facility]/pharmacy #[id number], Partial fill upon patient req... Start [...] Health intermediate, active care Active coordination PADMINI Mata [phone](Confirmed) Fatty infiltration of liver(Confirmed) Active Tubular adenoma of colon(Confirmed) Active Social History Social History Type Response Smoking Status Former smoker; Other: Quit 2 015; entered on: 09/10/17 Sex
--- OUTSIDE RECORDS SUMMARY | 2022-08-20 22:45 | XMS_ITS | Continuity of Care Document ---
:1970 Author Organization [facility] Address [address] [place] [address]- Care Team Providers Name Role Phone Dawna Hernandez MD Primary Care Physician Encounter [facility] Date(s): 05/24/20 - 06/23/20 [facility] [address] [place] [address] [facility] Attending Physician: Admtr, [id number] Admitting Physician: Admtr, Ar8 Referring Physician: Admtr, [...] 06/20/20 13:59:00 EDT, Route to Pharmacy Electronically, [facility], 165, cm, 06/19/20 3:51:00 [...] 04/30/2010:59:00 EDT, Aerosol, Route to Pharmacy Electronically, [id number], [facility]/pharmacy #[id number], 165, cm, 04/30/20 10:31:00 EDT, Hei... [...] 06/20/20 14:06:00 EDT, Route to Pharmacy Electronically, [facility], 165, cm, 06/19/20 3:51:00 EDT, Height, 95.8, kg, 06/17/20 2:50:00 EDT, Dry Weight Start Date: 06/20/20 Status: Orderedatorvastatin 20 mg oral tablet 1 tablet = 20 mg, By Mouth, Daily, # 30 tablet, 5 Refills, Maintenance, 04/30/20 10:59:00 EDT, Tablet, [facility]/pharmacy #[id number], 165, cm, 04/30/20 10:31:00 EDT, Height, [...] 5 Refills, Maintenance, 11/20/19 12:00:00 EST, Tablet, [facility]/pharmacy #[id number], 165, cm, 11/20/19 11:16:00 EST, Height, 97.3, kg, 10/23/19 17:43:00 EST, Dry Weight Start Date: 11/20/19 Status: OrderedHibiclens 4% soap 1 applicator, Topically, Daily, Please use to cleanse left knee daily when showering, # 960 mL, 0 Refills, Soft Stop, 06/20/20 14:06:00 EDT, [facility], 1 applicator Topically Daily,Instr:Please use to cleanse left knee daily when shower... Start Date: 06/20/20 Status: OrderedlevoFLOXacin 500 mg oral tablet 1 tablet = 500 mg, By Mouth, Every 24 hours, for 14 days, # 14 tablet, 0 Refills, Acute 07/04/20 13:59:00 EDT, 06/20/20 13:59:00 EDT, Tablet, [facility], 165, cm, 06/19/20 3:51:00 EDT, Height, 95.8, kg, 06/17/20 2:50:00 EDT, Dry Weight Start Date: 06/20/20 Stop Date: 07/04/20 Status: Orderedomeprazole 20 mg oral delayed release tablet 1 tablet = 20 mg, By Mouth, Daily, # 30 tablet, 2 Refills, Maintenance, 05/24/20 10:57:00 EDT, EC Tablet, [facility]/pharmacy #[id number], 165, cm, 05/06/20 10:29:00 EDT, Height, [...] living, active care Active coordination PADMINI Mata [phone](Confirmed) Fatty infiltration of liver(Confirmed) Active Social History Social History Type Response Smoking Status Former smoker; Other: Quit 2 015; entered on: 09/10/17 Sex
--- OUTSIDE RECORDS SUMMARY | 2022-08-20 22:45 | XMS_ITS | Continuity of Care Document ---
:1970 Author Organization [facility] Address [address] [place] [address]- Care Team Providers Name Role Phone Daja MAYBERRY, Mirta Primary Care Physician Encounter [facility] Date(s): 01/26/22 - 02/25/[address] [address] Allergies, Adverse Reactions, Alerts Substance Reaction Severity Status lisinopril Angioedema Active Shrimp Active Immunizations Given and Recorded Vaccine Date Status Refusal Reason influenza virus vaccine, inactivated 02/15/22 Given influenza virus vaccine, inactivated 09/01/20 Given influenza virus vaccine, inactivated 09/15/19 Given influenza virus vaccine, inactivated 11/19/18 Given influenza virus vaccine, inactivated 09/10/17 Given influenza virus vaccine, inactivated 12/06/15 Given SARS-CoV-2 mRNA (ualtapl-qnlh-zqbmj) vax 01/26/22 Given SARS-CoV-2 mRNA (wqqarul-jzzg-tlvnk) vax 12/28/21 Given tetanus/diphtheria/pertussis, acel(Tdap) 03/29/19 Given tetanus/diphtheria/pertussis, acel(Tdap) 09/10/17 Given pneumococcal 23-valent vaccine 04/08/18 Recorded pneumococcal 23-valent vaccine 04/22/17 Recorded pneumococcal 23-valent vaccine 12/21/12 Given Medications albuterol CFC free 90 mcg/inh inhalation aerosol 2, puffs, Inhalation, Every 6 hours, PRN, # 1 each, Refills 6, Tot. Refills 6, Maintenance, 04/30/2010:59:00 EDT, Aerosol, Route to Pharmacy Electronically, [id number], [id number], 165, cm, 04/30/20 10:31:00 EDT, Hei... Start [...] = 10 mg, By Mouth, Daily, PRN allergies, # 30 tablet, 0 Refills, Maintenance, 01/26/22 15:54:00 EDT, Tablet, [id number], RX in [place]., 166, cm, 01/26/22 9:18:00 EDT, Height, 93.1, kg, 01/26/22 9:18:00 EDT, Dry Weight Start Date: 01/26/22 Status: Orderedclotrimazole 1% topical cream 1 application, Topically, 2 times a day, for 21 days, # 60 Gm, 0 Refills, Acute 02/28/22 15:45:00 EDT, 02/07/22 15:45:00 EDT, Cream, [id number], Partial fill upon patient request if the prescription is for a schedule II opioid drug., 1 applica... Start Date: 02/07/22 Stop Date: 02/28/22 Status: OrderedCPAP Machine See Instructions, # 1 [...] 12/25/21 14:04:00 EDT, Route to Pharmacy Electronically, [facility], Partial fill upon patient request if the prescription is for a sched... 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 Left knee neoprene sleeve, 02/15/22 12:58:00 EDT, Supply Start Date: 02/15/22 Status: OrderedKnee Support See Instructions, # 1 each, Maintenance, Dx: M25.561. Right knee neoprene sleeve, 02/15/22 13:11:00 EDT, Supply Start Date: 02/15/22 Status: Orderedomeprazole 20 mg oral enteric coated capsule 1 capsule = 20 mg, By Mouth, Daily, # 30 capsule, 1 Refills, Maintenance, 12/14/20 10:57:00 EST, [facility]/pharmacy #[id number], Partial fill upon patient [...] tablet, Refills 5, Route to Pharmacy Electronically, [facility], 166, cm, 12/28/21 10:33:00 EDT, Height, 91.9, [...] Maintenance,04/26/21 10:39:00 EDT, Route to Pharmacy Electronically, [facility]/pharmacy #[id number], Partial fill upon patient request if the [...] I(Confirmed) Active Obstructive sleep apnea(Confirmed) Active Health alf, active care Active coordination PADMINI Mata [phone](Confirmed) Fatty infiltration of liver(Confirmed) Active Tubular adenoma of colon(Confirmed) Active Social History Social History Type Response Smoking Status Former smoker; Other: Quit 2 015; entered on: 09/10/17 Sex
--- OUTSIDE RECORDS SUMMARY | 2022-08-20 22:45 | XMS_ITS | Continuity of Care Document ---
:1970 Author Organization [address], [address] [place] [address]- Care Team Providers Name Role Phone Daja MAYBERRY, Mirta Primary Care Physician Encounter [facility] Date(s): 12/28/21 - 02/10/[address], [address] [place], [place] [address] Attending Physician: Sofiya RAWLS, Lobo Chadwick Referring Physician: Dawna Hernandez MD Allergies, Adverse Reactions, Alerts Substance Reaction Severity Status lisinopril Angioedema Active Shrimp Active Immunizations Given and Recorded Vaccine Date Status Refusal Reason SARS-CoV-2 mRNA (xtbojkm-jqew-gonwm) vax 01/26/22 Given SARS-CoV-2 mRNA (wegcayc-ncnn-roafn) vax 12/28/21 Given influenza virus vaccine, inactivated [...] 04/30/2010:59:00 EDT, Aerosol, Route to Pharmacy Electronically, [id number], [id number], 165, cm, 04/30/20 10:31:00 EDT, Hei... Start Date: 04/30/20 Status: OrderedAlcohol Wipes See Instructions, # 1 box, Maintenance, please use before testing three times a day: dx type 2 diabetes, 04/04/18 18:52:53 EDT, Compound Start Date: 04/04/18 Status: Orderedatorvastatin 20 mg oral tablet 1 tablet = 20 mg, By Mouth, Daily at bedtime, # 30 tablet, 5 Refills, Maintenance, 01/20/21 16:26:00EDT, Tablet, [facility]/pharmacy #[id number], 164, cm, 01/20/21 15:43:00 EDT, [...] 0 Refills, Maintenance, 01/26/22 15:54:00 EDT, Tablet, [facility]/pharmacy #[id number], RX in [place]., 166, cm, 01/26/22 9:18:00 EDT, Height, 93.1, [...] 12/25/21 14:04:00 EDT, Route to Pharmacy Electronically, [facility], Partial fill upon patient request if the prescription is for a sched... Start Date: 12/25/21 Status: OrderedmetroNIDAZOLE 500 mg oral tablet 1 tablet = 500 mg, By Mouth, Every 12 hours, for 7 days, # 14 tablet, 0 Refills, Acute 02/14/22 15:45:00 EDT, 02/07/22 15:45:00 EDT, Tablet, [facility]/pharmacy #[id number], Partial fill upon patient request if theprescription is for a schedule II opioid drug., 1... Start Date: 02/07/22 Stop Date: 02/14/22 Status: Orderedomeprazole 20 mg oral enteric coated capsule 1 capsule = 20 mg, By Mouth, Daily, # 30 capsule, 1 Refills, Maintenance, 12/14/20 10:57:00 EST, [facility]/pharmacy #[id number], Partial fill upon patient request if the prescription is for a schedule II opioid drug., 165, cm, 12/09/20 14:35:00 EST, Height, 90.5,... Start Date: 12/14/20 Stop Date: 02/12/21 Status: OrderedoxyCODONE 15 mg oral tablet 1 tablet = 15 mg, By Mouth, Every 6 hours, for 28 days, MassPAT checked, # 112 tablet, 0 Refills, Acute 02/23/22 15:56:00 EDT, 01/26/22 15:56:00 EDT, [facility]/pharmacy #[id number], Partial fill upon patient request if the prescription is for a schedule II opioid... Start Date: 01/26/22 Stop Date: 02/23/22 Status: OrderedPAP Supplies - Mask, Tubing, Filters, [...] tablet, Refills 5, Route to Pharmacy Electronically, [facility], 166, cm, 12/28/21 10:33:00 EDT, Height, 91.9, [...] Maintenance,04/26/21 10:39:00 EDT, Route to Pharmacy Electronically, [facility]/pharmacy #[id number], Partial fill upon patient request if the [...] I(Confirmed) Active Obstructive sleep apnea(Confirmed) Active Health custodial, active care Active coordination [facility] [phone](Confirmed) Fatty infiltration of liver(Confirmed) Active Tubular adenoma of colon(Confirmed) Active Social History Social History Type Response Smoking Status Former smoker; Other: Quit 2 015; entered on: 09/10/17 Sex
--- OUTSIDE RECORDS SUMMARY | 2022-08-20 22:45 | XMS_ITS | Continuity of Care Document ---
:1970 Author Organization [facility] Address [address] [place] [address]- Care Team Providers Name Role Phone Dawna Hernandez MD Primary Care Physician Encounter [facility] R [id number] Date(s): 04/08/21 - 05/12/[address] [address] Attending Physician: Not on Staff, Attending MD [...] 04/30/2010:59:00 EDT, Aerosol, Route to Pharmacy Electronically, [id number], [facility]/pharmacy #[id number], 165, cm, [...] tableta en la manana y noche x3ds. [place] katy tableta en la manana y tarde y antes de acostarse., # 90 capsule, Refills 1, Tot. Refills 1, Maintenan... Start Date: 01/18/21 Status: Orderedlidocaine 5% topical film 1 patch, Topically, Daily, PRN Pain , Moderate, # 10 patch, 0 Refills, Maintenance, 04/26/21 10:38:00 EDT, Patch, [facility]/pharmacy #[id number], Partial fill upon patient request if the prescription is for a schedule II opioid drug., 1 patch Topically Daily,PRN:... Start Date: 04/26/21 Status: Orderedomeprazole 20 mg oral enteric coated capsule 1 capsule = 20 mg, By Mouth, Daily, # 30 capsule, 1 Refills, Maintenance, 12/14/20 10:57:00 EST, [facility]/pharmacy #[id number], Partial fill [...] 05/20/21 16:00:00 EDT, 05/09/21 9:11:00 EDT, Tablet, [facility]/pharmacy #[id number], [...] Maintenance,04/26/21 10:39:00 EDT, Route to Pharmacy Electronically, [facility]/pharmacy #[id number], Partial fill upon patient request if the [...] pain(Confirmed) Active Obstructive sleep apnea(Confirmed) Active Health retirement, active care Active coordination PADMINI Mata [phone](Confirmed) Fatty infiltration of liver(Confirmed) Active Tubular adenoma of colon(Confirmed) Active Social History Social History Type Response Smoking Status Former smoker; Other: Quit 2 015; entered on: 09/10/17 Sex
--- OUTSIDE RECORDS SUMMARY | 2022-08-20 22:45 | XMS_ITS | Continuity of Care Document ---
:1970 Author Organization [facility] Address [address] [place] [address]- Care Team Providers Name Role Phone Dawna Hernandez MD Primary Care Physician Encounter [facility] [place] Date(s): 05/03/21 - 06/02/[address] [address] Allergies, Adverse Reactions, Alerts Substance [...] 04/30/2010:59:00 EDT, Aerosol, Route to Pharmacy Electronically, [id number], [facility]/pharmacy #[id number], 165, cm, 04/30/20 10:31:00 [...] tableta en la manana y noche x3ds. [place] katy tableta en la manana y tarde y antes de acostarse., # 90 capsule, Refills 1, Tot. Refills 1, Maintenan... Start Date: 01/18/21 Status: Orderedlidocaine 5% topical film 1 patch, Topically, Daily, PRN Pain , Moderate, # 10 patch, 0 Refills, Maintenance, 04/26/21 10:38:00 EDT, Patch, [facility]/pharmacy #[id number], Partial fill upon patient request if the prescription is for a schedule II opioid drug., 1 patch Topically Daily,PRN:... Start Date: 04/26/21 Status: Orderedomeprazole 20 mg oral enteric coated capsule 1 capsule = 20 mg, By Mouth, Daily, # 30 capsule, 1 Refills, Maintenance, 12/14/20 10:57:00 EST, [facility]/pharmacy #[id number], Partial fill upon patient [...] 05/20/21 16:26:00 EDT, Route to Pharmacy Electronically, [facility]/pharmacy #[id number], Partial fill upon patient [...] Maintenance,04/26/21 10:39:00 EDT, Route to Pharmacy Electronically, [facility]/pharmacy #[id number], Partial fill upon patient [...] pain(Confirmed) Active Obstructive sleep apnea(Confirmed) Active Health fdc, active care Active coordination PADMINI Mata [phone](Confirmed) Fatty infiltration of liver(Confirmed) Active Tubular adenoma of colon(Confirmed) Active Social History Social History Type Response Smoking Status Former smoker; Other: Quit 2 015; entered on: 09/10/17 Sex
--- OUTSIDE RECORDS SUMMARY | 2022-08-20 22:45 | XMS_ITS | Continuity of Care Document ---
:1970 Author Organization [facility] Address [address] [place] [address]- Care Team Providers Name Role Phone Mirta Farnsworth NP Primary Care Physician Encounter [facility] [place] Date(s): 02/09/22 - 02/09/[address] [address]- Discharge Disposition: A-D/C Walkout Attending Physician: Not on Staff, Attending MD Admitting Physician: Not on Staff, Admitting MD Referring Physician: Not on Staff, Referring MD Allergies, Adverse Reactions, Alerts Substance Reaction Severity Status lisinopril Angioedema Active Shrimp Active Immunizations Given and Recorded Vaccine Date Status Refusal Reason SARS-CoV-2 mRNA ([id number]) vax 01/26/22 Given SARS-CoV-2 mRNA ([id number]-[id number]-gbhqt) vax 12/28/21 Given influenza virus vaccine, inactivated [...] 04/30/2010:59:00 EDT, Aerosol, Route to Pharmacy Electronically, [id number], [id number], 165, cm, 04/30/20 10:31:00 EDT, [...] tablet, 5 Refills, Maintenance, 01/20/21 16:26:00EDT, Tablet, [facility]/pharmacy #[id number], 164, cm, 01/20/21 15:43:00 EDT, [...] 0 Refills, Maintenance, 01/26/22 15:54:00 EDT, Tablet, [facility]/pharmacy #[id number], RX in [place] 166, cm, 01/26/22 9:18:00 EDT, Height, 93.1, kg, 01/26/22 9:18:00 EDT, Dry Weight Start Date: 01/26/22 Status: Orderedclotrimazole 1% topical cream 1 application, Topically, 2 times a day, for 21 days, # 60 Gm, 0 Refills, Acute 02/28/22 15:45:00 EDT, 02/07/22 15:45:00 EDT, Cream, [facility]/pharmacy #[id number], Partial fill upon patient request [...] 12/25/21 14:04:00 EDT, Route to Pharmacy Electronically, [facility], Partial fill upon patient request if the prescription is for a sched... Start Date: 12/25/21 Status: OrderedmetroNIDAZOLE 500 mg oral tablet 1 tablet = 500 mg, By Mouth, Every 12 hours, for 7 days, # 14 tablet, 0 Refills, Acute 02/14/22 15:45:00 EDT, 02/07/22 15:45:00 EDT, Tablet, [facility]/pharmacy #[id number], Partial fill upon patient request if theprescription is for a schedule II opioid drug., 1... Start Date: 02/07/22 Stop Date: 02/14/22 Status: Orderedomeprazole 20 mg oral enteric coated capsule 1 capsule = 20 mg, By Mouth, Daily, # 30 capsule, 1 Refills, Maintenance, 12/14/20 10:57:00 EST, [facility]/pharmacy #[id number], Partial fill upon patient request if the prescription is for a schedule II opioid drug., 165, cm, 12/09/20 14:35:00 EST, Height, 90.5,... Start Date: 12/14/20 Stop Date: 02/12/21 Status: OrderedoxyCODONE 15 mg oral tablet 1 tablet = 15 mg, By Mouth, Every 6 hours, for 28 days, MassPAT checked, # 112 tablet, 0 Refills, Acute 02/23/22 15:56:00 EDT, 01/26/22 15:56:00 EDT, [facility]/pharmacy #[id number], Partial fill upon patient request [...] tablet, Refills 5, Route to Pharmacy Electronically, [facility], 166, cm, 12/28/21 10:33:00 EDT, Height, 91.9, [...] Maintenance,04/26/21 10:39:00 EDT, Route to Pharmacy Electronically, [facility]/pharmacy #[id number], Partial fill upon patient request if the [...] I(Confirmed) Active Obstructive sleep apnea(Confirmed) Active Health assisted, active care Active coordination PADMINI Mata [phone](Confirmed) Fatty infiltration of liver(Confirmed) Active Tubular adenoma of colon(Confirmed) Active Vital Signs Most recent to oldest 1 2 3 [Reference Range]: Weight 95 kg (02/09/22 5:03 AM) Oxygen Saturation [94-100 99 % 100 % 98 % %] (02/09/22 6:50 AM) (02/09/22 5:03 AM) (02/09/22 5:0 2 AM) Pulse Rate [55-90 bpm] 88 bpm 106 bpm 103 bpm (02/09/22 6:50 AM) *H* *H* (02/09/22 5:03 AM) (02/09/22 5:02 AM) Blood Pressure 118/74 mm Hg 144/74 mm Hg [90-138/55-84 mm Hg] (02/09/22 6:50 AM) *H* (02/09/22 5:03 AM) Respiratory Rate [16-30 20 br/min 17 br/min br/min] (02/09/22 5:03 AM) (02/09/22 5:02 AM) Temperature [96.8-100.4 98.5 DegF 98.1 DegF DegF] (02/09/22 6:50 AM) (02/09/22 5:03 AM) Mode of Delivery (Oxygen) Room air Room air (02/09/22 6:50 AM) (02/09/22 5:02 AM) Blood pressure sites Arm, left (02/09/22 6:50 AM) Temperature Route Oral Oral (02/09/22 6:50 AM) (02/09/22 5:03 AM) Weight Obtained Via Patient/family stated (02/09/22 5:03 AM) Social History Social History Type Response Smoking Status Former smoker; Other: Quit 2 015; entered on: 09/10/17 Sex
--- OUTSIDE RECORDS SUMMARY | 2022-08-20 22:45 | XMS_ITS | Continuity of Care Document ---
:1970 Author Organization [facility] Address [address] [place] [address]- Care Team Providers Name Role Phone Dawna Hernandez MD Primary Care Physician Encounter [facility] [place] Date(s): 08/05/21 - 08/06/[address] [address]- Discharge Disposition: A-D/C Home Attending Physician: Neo Dong MD Admitting Physician: Neo Dong MD Referring Physician: Not on Staff, Referring [...] 04/30/2010:59:00 EDT, Aerosol, Route to Pharmacy Electronically, [id number], [facility]/pharmacy #[id number], 165, cm, [...] tableta en la manana y noche x3ds. [place] katy tableta en la manana y tarde y antes de acostarse., # 90 capsule, Refills 1, Tot. Refills 1, Maintenan... Start Date: 01/18/21 Status: Orderedlidocaine 1.8% topical film 1 patch, Topically, Daily, leave on up to 12 hours remove patches after 12 hours, # 30 each, 0 Refills, Acute 08/07/21 4:23:00 EDT, 08/06/21 4:23:00 EDT, Film, [id number], Partial fill upon patient request if the prescription is for a schedul... Start Date: 08/06/21 Stop Date: 08/07/21 Status: Orderedlidocaine 5% topical film 1 patch, Topically, Daily, PRN Pain , Moderate, # 10 patch, 0 Refills, Maintenance, 04/26/21 10:38:00 EDT, Patch, [facility]/pharmacy #[id number], Partial fill [...] days, MassPAT checked do not fill until 07/26/21, # 56 tablet, 0 Refills, Acute 08/09/21 13:21:00 EDT, 07/26/21 13:21:00 EDT, [id number], Partial fill upon patient request if the prescription... Start Date: 07/26/21 Stop Date: 08/09/21 Status: OrderedPAP Supplies - Mask, Tubing, Filters, [...] Instructions ReplaceRequired Details, Route to Pharmacy Electronically, [id number], 165, cm, 06/02/21 12:44:00 EDT,Height, 92.8, kg, 05/19/21 23:20:00 EDT, Dry Weight Start Date: 08/02/21 Status: Orderedpropranolol 20 mg oral tablet 40 mg, 2, tablet, By Mouth, 2 times a day, # 120 tablet, Refills 0, Tot. Refills 0, Maintenance, 08/02/21 15:46:00 EDT, [facility] to Pharmacy Electronically, [facility]/pharmacy #[id number], Partial fill upon patient request if the [...] Health long-term, active care Active coordination PADMINI Nancy Mata [phone](Confirmed) Fatty infiltration of liver(Confirmed) Active Tubular adenoma of colon(Confirmed) Active Vital Signs Most recent to oldest 1 2 3 [Reference Range]: Oxygen Saturation [94-100 98 % 98 % 97 % %] (08/06/21 2:10 AM) (08/06/21 12:01 AM) (08/05/21 10:07 PM) Pulse Rate [55-90 bpm] 88 bpm 98 bpm 84 bpm (08/06/21 2:10 AM) *H* (08/05/21 10: 07 PM) (08/06/21 12:01 AM) Blood Pressure 139/90 mm Hg 132/90 mm Hg 116/75 mm Hg [90-138/55-84 mm Hg] *H* (08/06/21 12:01 AM) ( 10:07 PM) (08/06/21 2:10 AM) Respiratory Rate [16-30 19 br/min 18 br/min 16 br/mi n br/min] (08/06/21 2:10 AM) (08/06/21 12:01 AM) (08/05/21 11:00 PM) Temperature [96.8-100.4 98.0 DegF 98.3 DegF 98 DegF DegF] (08/05/21 10:07 PM) (08/05/21 8:45 PM) (08/05/21 7:40 PM) Mode of Delivery (Oxygen) Room air Room air Room a ir (08/06/21 2:10 AM) (08/06/21 12:01 AM) (08/05/21 10:07 PM) Blood pressure sites Arm, right Arm, right Arm, left (08/06/21 2:10 AM) (08/06/21 12:01 AM) (08/05/21 10:07 PM) Temperature Route Oral Oral Oral (08/05/21 10:07 PM) (08/05/21 8:45 PM) (08/05/21 7:40 PM) Social History Social History Type Response Smoking Status Former smoker; Other: Quit 2 015; entered on: 09/10/17 Sex
--- OUTSIDE RECORDS SUMMARY | 2022-08-20 22:45 | XMS_ITS | Continuity of Care Document ---
:1970 Author Organization [facility] Address [address] [place] [address]- Care Team Providers Name Role Phone Dawna Hernandez MD Primary Care Physician Encounter [facility] [place] Date(s): 12/15/20 - 01/14/[address] [address] Allergies, Adverse Reactions, Alerts Substance [...] 04/30/2010:59:00 EDT, Aerosol, Route to Pharmacy Electronically, [id number], [id number], 165, cm, 04/30/20 10:31:00 EDT, [...] 12/19/20 18:18:00 EST, Route to Pharmacy Electronically, [facility]/pharmacy #[id number], Partial fill upon patient request if the prescription is for a schedule II opioid drug., 164, cm,... Start Date: 12/19/20 Stop Date: 01/18/21 Status: Orderedatorvastatin 20 mg oral tablet 1 tablet = 20 mg, By Mouth, Daily at bedtime, # 30 tablet, 5 Refills, Maintenance, 04/30/20 10:59:00EDT, Tablet, [facility]/pharmacy #[id number], 165, cm, 04/30/20 10:31:00 EDT, [...] 01/11/21 19:56:00 EDT, Route to Pharmacy Electronically, [facility]/pharmacy #[id number], Partial fill upon patient request... Start Date: [...] By Mouth, Daily, Para dolor de espalda. [place] en la noche antes de dormir., # 30 capsule, Refills 1, Tot. Refills 1, Maintenance, 04/01/21 14:21:00 EDT, Route to Pharmacy Electronically, [facility]/pharmacy #[id number], Partial fill upon patient... Start Date: 01/13/21 Stop Date: 03/14/21 Status: Orderedomeprazole 20 mg oral enteric coated capsule 1 capsule = 20 mg, By Mouth, Daily, # 30 capsule, 1 Refills, Maintenance, 12/14/20 10:57:00 EST, [facility]/pharmacy #[id number], Partial fill upon patient [...] 0 Refills, Maintenance, 12/15/20 17:44:00 EST, Tablet, [facility]/pharmacy #[id number], Partial fill upon patient req... [...] care, active care Active coordination PADMINI Mata [phone](Confirmed) Fatty infiltration of liver(Confirmed) Active Tubular adenoma of colon(Confirmed) Active Social History Social History Type Response Smoking Status Former smoker; Other: Quit 2 015; entered on: 09/10/17 Sex
--- OUTSIDE RECORDS SUMMARY | 2022-08-20 22:45 | XMS_ITS | Continuity of Care Document ---
:1970 Author Organization [facility] Address [address] [place] [address]- Care Team Providers Name Role Phone Dawna Hernandez MD Primary Care Physician [place] [facility] [place]/25/[place] - 12/25/[address] [address] Allergies, Adverse Reactions, Alerts Substance Reaction Severity [...] 04/30/2010:59:00 EDT, Aerosol, Route to Pharmacy Electronically, [id number], [id number], 165, cm, 04/30/20 10:31:00 EDT, [...] 12/19/20 18:18:00 EST, Route to Pharmacy Electronically, [facility]/pharmacy #[id number], Partial fill upon patient request if the prescription is for a schedule II opioid drug., 164, cm,... Start Date: 12/19/20 Stop Date: 01/18/21 Status: Orderedatorvastatin 20 mg oral tablet 1 tablet = 20 mg, By Mouth, Daily at bedtime, # 30 tablet, 5 Refills, Maintenance, 04/30/20 10:59:00EDT, Tablet, [facility]/pharmacy #[id number], 165, cm, 04/30/20 10:31:00 [...] capsule, 1 Refills, Maintenance, 12/14/20 10:57:00 EST, [facility]/pharmacy #[id number], Partial fill upon patient request if the [...] 0 Refills, Maintenance, 12/15/20 17:44:00 EST, Tablet, [facility]/pharmacy #[id number], Partial fill upon patient req... [...] pain(Confirmed) Active Obstructive sleep apnea(Confirmed) Active Health alf, active care Active coordination PADMINI Mata [phone](Confirmed) Fatty infiltration of liver(Confirmed) Active Tubular adenoma of colon(Confirmed) Active Social History Social History Type Response Smoking Status Former smoker; Other: Quit 2 015; entered on: 09/10/17 Sex
--- OUTSIDE RECORDS SUMMARY | 2022-08-20 22:45 | XMS_ITS | Continuity of Care Document ---
:1970 Author Organization [facility] Address [address] [place] [address]- Care Team Providers Name Role Phone Dawna Hernandez MD Primary Care Physician Encounter [facility] [place] Date(s): 05/03/21 - 05/03/[address] [address]- Discharge Disposition: A-D/C Walkout Attending Physician: Not [...] 04/30/2010:59:00 EDT, Aerosol, Route to Pharmacy Electronically, [id number], [facility]/pharmacy #[id number], 165, cm, 04/30/20 10:31:00 EDT, Hei... Start Date: 04/30/20 Status: OrderedAlcohol Wipes See Instructions, # 1 box, Maintenance, please use before testing three times a day: dx type 2 diabetes, 04/04/18 18:52:53 EDT, Compound Start Date: 04/04/18 Status: Orderedamoxicillin 500 mg oral capsule 1 capsule = 500 mg, By Mouth, Every 12 hours, for 10 days, # 20 capsule, 0 Refills, Acute 05/10/21 14:01:00 EDT, 04/30/21 14:01:00 EDT, Capsule, [facility]/pharmacy #[id number], Partial fill upon patient request ifthe prescription is for a schedule II opioid drug... Start Date: 04/30/21 Stop Date: 05/10/21 Status: Orderedatorvastatin 20 mg oral tablet 1 tablet = 20 mg, By Mouth, Daily at bedtime, # 30 tablet, 5 Refills, Maintenance, 01/20/21 16:26:00EDT, Tablet, [facility]/pharmacy #[id number], 164, cm, 01/20/21 15:43:00 [...] 0 Refills, Maintenance, 01/20/21 16:26:00 EDT, Tablet, [facility]/pharmacy #[id number], Partial fill upon patient [...] Acute 05/22/21 10:41:00 EDT, 04/26/21 10:41:00 EDT, [facility]/pharmacy #[id number], Partial fill upon patient request if the [...] tableta en la manana y noche x3ds. [place] katy tableta en la manana y tarde y antes de acostarse., # 90 capsule, Refills 1, Tot. Refills 1, Maintenan... Start Date: 01/18/21 Status: Orderedlidocaine 5% topical film 1 patch, Topically, Daily, PRN Pain , Moderate, # 10 patch, 0 Refills, Maintenance, 04/26/21 10:38:00 EDT, Patch, [id number], Partial fill upon patient request [...] Acute 05/12/21 13:08:00 EDT, 04/28/21 13:08:00 EDT, [id number], Partial fill upon patient [...] Maintenance,04/26/21 10:39:00 EDT, Route to Pharmacy Electronically, [facility]/pharmacy #[id number], Partial fill upon patient request if the [...] Health fdc, active care Active coordination PADMINI Cruz [facility] [phone](Confirmed) Fatty infiltration of liver(Confirmed) Active Tubular adenoma of colon(Confirmed) Active Vital Signs Most recent to oldest [Reference Range]: 1 2 Oxygen Saturation [94-100 %] 100 % 99 % (05/03/21 5:50 PM) (05/03/21 5:12 PM) Pulse Rate [55-90 bpm] 83 bpm 104 bpm (05/03/21 5:50 PM) *H* (05/03/21 5:12 PM) Blood Pressure [90-138/55-84 mm Hg] 136/89 mm Hg (05/03/21 5:50 PM) Respiratory Rate [16-30 br/min] 16 br/min (05/03/21 5:50 PM) Temperature [96.8-100.4 DegF] 98.7 DegF (05/03/21 5:50 PM) Mode of Delivery (Oxygen) Room air Room air (05/03/21 5:50 PM) (05/03/21 5:12 PM) Blood pressure sites Arm, left (05/03/21 5:50 PM) Temperature Route Oral (05/03/21 5:50 PM) Social History Social History Type Response Smoking Status Former smoker; Other: Quit 2 015; entered on: 09/10/17 Sex
--- OUTSIDE RECORDS SUMMARY | 2022-08-20 22:45 | XMS_ITS | Continuity of Care Document ---
:1970 Author Organization [facility] Address [address] [place] [address]- Care Team Providers Name Role Phone Dawna Hernandez MD Primary Care Physician Encounter [facility] [place] Date(s): 02/03/20 - 03/04/[address] [address]- [place] Attending Physician: Lori Patton Admitting Physician: [...] Maintenance, 189:52:06, Aerosol, Route to Pharmacy Electronically, [id number], [facility] [id number], Compound Start Date: 11/21/17 Status: OrderedAlcohol Wipes See Instructions, # 1 box, Maintenance, please use before testing three times a day: dx type 2 diabetes, 04/04/18 18:52:53 EDT, Compound Start Date: 04/04/18 Status: Orderedatorvastatin 20 mg oral tablet 1 tablet = 20 mg, By Mouth, Daily, # 30 tablet, 5 Refills, Maintenance, 10/29/19 9:49:00 EST, Tablet, [facility]/pharmacy #[id number], 165, cm, 10/24/19 14:26:00 EST, Height, [...] 01/02/20 15:07:00 EDT, Route to Pharmacy Electronically, [facility]/pharmacy #[id number], 165, cm, 12/23/19 9:38:00 EDT, Height, [...] 5 Refills, Maintenance, 11/20/19 12:00:00 EST, Tablet, [facility]/pharmacy #[id number], 165, cm, 11/20/19 11:16:00 EST, Height, 97.3, kg, 10/23/19 17:43:00 EST, Dry Weight Start Date: 11/20/19 Status: OrderedNaprosyn 500 mg oral tablet 1 tablet = 500 mg, By Mouth, 2 times a day, # 60 tablet, 1 Refills, Maintenance, 11/20/19 11:59:00 EST, Tablet, [facility]/pharmacy #[id number], 165, cm, 11/20/19 11:16:00 EST, Height, 97.3, kg, 10/23/19 17:43:00 EST, Dry Weight Start Date: 11/20/19 Status: Orderedondansetron 8 mg oral tablet, disintegrating 1 tablet = 8 mg, By Mouth, 3 times a day, # 9 tablet, 0 Refills, Maintenance, 01/02/20 15:06:00 EDT,DIS Tablet, [facility]/pharmacy #[id number], 165, cm, 12/23/19 9:38:00 EDT, Height, [...] 03/18/20 16:48:00 EDT, 03/04/20 16:48:00 EDT, Tablet, [facility]/pharmacy #[id number]... Start Date: 03/04/20 Stop Date: 03/18/20 [...] 12/23/19 10:09:00 EDT, Route to Pharmacy Electronically, [facility]/pharmacy #[id number], 165, cm, 12/23/19 9:38:00 EDT, Height, [...] jail, active care Active coordination PADMINI Mata [phone](Confirmed) Fatty infiltration of liver(Confirmed) Active Social History Social History Type Response Smoking Status Former smoker; Other: Quit 2 015; entered on: 09/10/17 Sex
--- OUTSIDE RECORDS SUMMARY | 2022-08-20 22:45 | XMS_ITS | Continuity of Care Document ---
:1970 Author Organization [facility] Address [address] [place] [address]- Care Team Providers Name Role Phone Dawna Hernandez MD Primary Care Physician Encounter [facility] [place] Date(s): 03/16/21 - 05/07/[address] [address] Attending Physician: Parish Bower OD Admitting Physician: Parish Bower OD Allergies, Adverse Reactions, Alerts Substance Reaction Severity [...] 04/30/2010:59:00 EDT, Aerosol, Route to Pharmacy Electronically, [id number], [facility]/pharmacy #[id number], 165, cm, 04/30/20 10:31:00 [...] tableta en la manana y noche x3ds. [place] katy tableta en la manana y tarde y antes de acostarse., # 90 capsule, Refills 1, Tot. Refills 1, Maintenan... Start Date: 01/18/21 Status: Orderedlidocaine 5% topical film 1 patch, Topically, Daily, PRN Pain , Moderate, # 10 patch, 0 Refills, Maintenance, 04/26/21 10:38:00 EDT, Patch, [facility]/pharmacy #[id number], Partial fill upon patient request if the prescription is for a schedule II opioid drug., 1 patch Topically Daily,PRN:... Start Date: 04/26/21 Status: Orderedomeprazole 20 mg oral enteric coated capsule 1 capsule = 20 mg, By Mouth, Daily, # 30 capsule, 1 Refills, Maintenance, 12/14/20 10:57:00 EST, [facility]/pharmacy #[id number], Partial fill upon patient [...] Acute 05/12/21 13:08:00 EDT, 04/28/21 13:08:00 EDT, [facility]/pharmacy #[id number], Partial fill upon patient [...] Maintenance,04/26/21 10:39:00 EDT, Route to Pharmacy Electronically, [facility]/pharmacy #[id number], Partial fill upon patient [...] 05/11/21 9:00:00 EDT, 05/05/21 9:22:00 EDT, Tablet, [facility]/pharmacy #[id number], Partial fill upon patient request if the prescription is for a schedule II opioid dr... Start Date: 05/05/21 Stop Date: 05/11/21 Status: Ordered Problem List Condition Effective Dates Status Health Status Informant Chest pain(Confirmed) Active Chest pain(Confirmed) Active Depression(Confirmed) Active Diabetes(Confirmed) Active Controlled substance agreement signed Active 02/03/20(Confirmed) GERD (gastroesophageal reflux Active disease)(Confirmed) Hyperlipidemia(Confirmed) Active Lower back pain(Confirmed) Active Obstructive sleep apnea(Confirmed) Active Health fpc, active care Active coordination PADMINI Mata [phone](Confirmed) Fatty infiltration of liver(Confirmed) Active Tubular adenoma of colon(Confirmed) Active Social History Social History Type Response Smoking Status Former smoker; Other: Quit 2 015; entered on: 09/10/17 Sex
--- OUTSIDE RECORDS SUMMARY | 2022-08-20 22:45 | XMS_ITS | Continuity of Care Document ---
:1970 Author Organization [facility] Address [address] [place] [address]- Care Team Providers Name Role Phone Dawna Hernandez MD Primary Care Physician [place] [facility] [place] - 07/02/21 [facility] [address], [place] [address] Attending Physician: AdmLori sandhu Admitting Physician: Admtr, Ar8 Referring Physician: Admtr, [...] 04/30/2010:59:00 EDT, Aerosol, Route to Pharmacy Electronically, [id number], [facility]/pharmacy #[id number], 165, cm, 07/17/20 10:31:00 EDT, Hei... Start Date: 04/30/20 Status: OrderedAlcohol Wipes See Instructions, # 1 box, Maintenance, please use before testing three times a day: dx type 2 diabetes, 04/04/18 18:52:53 EDT, Compound Start Date: 04/04/18 Status: Orderedatorvastatin 20 mg oral tablet 1 tablet = 20 mg, By Mouth, Daily at bedtime, # 30 tablet, 5 Refills, Maintenance, 01/20/21 16:26:00EDT, Tablet, [facility]/pharmacy #[id number], 164, cm, 01/20/21 15:43:00 [...] tableta en la manana y noche x3ds. [place] katy tableta en la manana y tarde y antes de acostarse., # 90 capsule, Refills 1, Tot. Refills 1, Maintenan... Start Date: 01/18/21 Status: Orderedlidocaine 5% topical film 1 patch, Topically, Daily, PRN Pain , Moderate, # 10 patch, 0 Refills, Maintenance, 04/26/21 10:38:00 EDT, Patch, [id number], Partial fill upon patient request if the prescription is for a schedule II opioid drug., 1 patch Topically Daily,PRN:... Start Date: 04/26/21 Status: Orderedomeprazole 20 mg oral enteric coated capsule 1 capsule = 20 mg, By Mouth, Daily, # 30 capsule, 1 Refills, Maintenance, 12/14/20 10:57:00 EST, [facility]/pharmacy #[id number], Partial fill upon patient [...] Acute 07/11/21 16:54:00 EDT, 06/27/21 16:54:00 EDT, [facility]/pharmacy #[id number], Partial fill upon patient [...] 05/20/21 16:26:00 EDT, Route to Pharmacy Electronically, [facility]/pharmacy #[id number], Partial fill upon patient [...] Maintenance,04/26/21 10:39:00 EDT, Route to Pharmacy Electronically, [facility]/pharmacy #[id number], Partial fill upon patient request if the [...] intermediate, active care Active coordination PADMINI Mata [phone](Confirmed) Fatty infiltration of liver(Confirmed) Active Tubular adenoma of colon(Confirmed) Active Social History Social History Type Response Smoking Status Former smoker; Other: Quit 2 015; entered on: 09/10/17 Sex
--- OUTSIDE RECORDS SUMMARY | 2022-08-20 22:45 | XMS_ITS | Continuity of Care Document ---
:1970 Author Organization [facility] Address [address] [place] [address]- Care Team Providers Name Role Phone Mary RAWLS, Dawna Primary Care Physician Encounter [facility] [place] Date(s): 04/27/21 - 04/30/[address] [address] Encounter Diagnosis Abdominal pain (Final) - 04/27/21 Seasonal allergies (Discharge Diagnosis) - 04/27/21 Discharge Disposition: A-D/C Home Attending Physician: Regino Rosenthal MD Admitting Physician: Jared Salinas MD Referring Physician: Not on Staff, Referring [...] 04/30/2010:59:00 EDT, Aerosol, Route to Pharmacy Electronically, [id number], [id number], 165, cm, 04/30/20 10:31:00 EDT, [...] 05/10/21 14:01:00 EDT, 04/30/21 14:01:00 EDT, Capsule, [id number], Partial fill upon patient request ifthe prescription is for a schedule II opioid drug... Start Date: 04/30/21 Stop Date: 05/10/21 Status: Orderedatorvastatin 20 mg oral tablet 1 tablet = 20 mg, By Mouth, Daily at bedtime, # 30 tablet, 5 Refills, Maintenance, 01/20/21 16:26:00EDT, Tablet, [facility]/pharmacy #[id number], 164, cm, 01/20/21 15:43:00 EDT, Height, [...] Acute 05/22/21 10:41:00 EDT, 04/26/21 10:41:00 EDT, [facility]/pharmacy #[id number], Partial fill upon patient request if the [...] oral capsule 300 mg, Capsule, By Mouth, 04/30/21 9:00:00 EDT Start Date: 04/30/21 Stop Date: 04/30/21 Status: Completedgabapentin 300 mg oral capsule 300 mg, 1, capsule, By Mouth, 3 times a day, [place] katy tableta en la noche x3ds. Despues, tomeuna tableta en la manana y noche x3ds. [place] katy tableta en la manana y tarde y antes de acostarse., # 90 capsule, Refills 1, Tot. Refills 1, Maintenan... Start Date: 01/18/21 Status: Orderedlidocaine 5% topical film 1 patch, Topically, Daily, PRN Pain , Moderate, # 10 patch, 0 Refills, Maintenance, 04/26/21 10:38:00 EDT, Patch, [facility]/pharmacy #[id number], Partial fill upon patient request if the prescription is for a schedule II opioid drug., 1 patch Topically Daily,PRN:... Start Date: 04/26/21 Status: OrderedMorPHINE Inj 2 mg, Injection, IV Push Slowly, Every 4 hours, PRN for Pain , Severe, Routine, 04/28/21 13:17:00 EDT Start Date: 04/28/21 Stop Date: 05/05/21 Status: Orderedomeprazole 20 mg oral enteric coated capsule 1 capsule = 20 mg, By Mouth, Daily, # 30 capsule, 1 Refills, Maintenance, 12/14/20 10:57:00 EST, [facility]/pharmacy #[id number], Partial fill upon patient request if [...] Acute 05/12/21 13:08:00 EDT, 04/28/21 13:08:00 EDT, [facility]/pharmacy #[id number], Partial fill upon patient request if [...] 10:39:00 EDT, Route to Pharmacy Electronically, [facility]/pharmacy #[id number], Partial fill upon patient request if the [...] long term, active care Active coordination PADMINI Mata [phone](Confirmed) Fatty infiltration of liver(Confirmed) Active Tubular adenoma of colon(Confirmed) Active Diagnosis Diagnosis Type Effective Dates Health Status Clinical In formant Service Seasonal Discharge 04/27/21 allergies Diagnosis Results Orders for Microbiology Reports Name Date Blood Culture 04/27/21 Blood Culture #2 04/27/21 Microbiology Reports TEST:Blood Culture, Second Order STATUS:Unauthenticated BODY SITE: SOURCE:Blood COLLECTED DATE/TIME:04/27/21 11:05 AMBlood Culture, Second Order SPECIMEN DESCRIPTION : BLOOD LEFT AC SPECIAL REQUESTS : NONE CULTURE : NO GROWTH 3 DAYS REPORT STATUS : PRELIMINARY REPORT TEST:Blood Culture STATUS:Unauthenticated BODY SITE: SOURCE:Blood COLLECTED DATE/TIME:04/27/21 10:45 AMBlood Culture SPECIMEN DESCRIPTION : BLOOD R FA SPECIAL REQUESTS : NONE CULTURE : NO GROWTH 3 DAYS REPORT STATUS : PRELIMINARY REPORT Vital Signs Most recent to oldest 1 2 3 [Reference Range]: Oxygen Saturation [94-100 %] 95 % 98 % 96 % (04/30/21 11:47 AM) (04/30/21 7:51 AM) (04/30/21 4: 38 AM) Pulse Rate [55-90 bpm] 82 bpm 81 bpm 72 bpm (04/30/21 11:47 AM) (04/30/21 7:51 AM) (04/30/21 4: 38 AM) Blood Pressure [90-138/55-84 110/70 mm Hg 106/58 mm Hg 103 /67 mm Hg mm Hg] (04/30/21 11:47 AM) (04/30/21 7:51 AM) (04/30/21 4: 38 AM) Respiratory Rate [16-30 18 br/min 18 br/min 16 br/mi n br/min] (04/30/21 11:47 AM) (04/30/21 11:45 AM) (04/30/21 1 1:45 AM) Temperature [96.8-100.4 98.5 DegF 98.4 DegF 98.5 Deg F DegF] (04/30/21 11:47 AM) (04/30/21 7:51 AM) (04/30/21 4: 38 AM) Mode of Delivery (Oxygen) Room air Room air Room a ir (04/30/21 11:47 AM) (04/30/21 7:51 AM) (04/30/21 4: 38 AM) Blood pressure sites Arm, left Arm, left Arm, left (04/30/21 11:47 AM) (04/30/21 7:51 AM) (04/30/21 4: 38 AM) Temperature Route Oral Oral Oral (04/30/21 11:47 AM) (04/30/21 7:51 AM) (04/30/21 4: 38 AM) Social History Social History Type Response Smoking Status Former smoker; Other: Quit 2 015; entered on: 09/10/17 Sex
--- OUTSIDE RECORDS SUMMARY | 2022-08-20 22:45 | XMS_ITS | Continuity of Care Document ---
:1970 Author Organization [facility] Address [address] [place] [address]- Care Team Providers Name Role Phone Dawna Hernandez MD Primary Care Physician Encounter [facility] [place] Date(s): 02/25/21 - 03/27/[address] [address] Allergies, Adverse Reactions, Alerts [...] 04/30/2010:59:00 EDT, Aerosol, Route to Pharmacy Electronically, [id number], [id number], 165, cm, 04/30/20 10:31:00 EDT, [...] tableta en la manana y noche x3ds. [place] katy tableta en la manana y tarde y antes de acostarse., # 90 capsule, Refills 1, Tot. Refills 1, Maintenan... Start Date: 01/18/21 Status: Orderedomeprazole 20 mg oral enteric coated capsule 1 capsule = 20 mg, By Mouth, Daily, # 30 capsule, 1 Refills, Maintenance, 12/14/20 10:57:00 EST, [facility]/pharmacy #[id number], Partial fill upon patient request if the [...] 0 Refills, Maintenance, 03/11/21 16:55:00 EDT, Tablet, [facility]/pharmacy #[id number], Partial fill upon patient re... Start [...] half-way, active care Active coordination PADMINI Mata [phone](Confirmed) Fatty infiltration of liver(Confirmed) Active Tubular adenoma of colon(Confirmed) Active Social History Social History Type Response Smoking Status Former smoker; Other: Quit 2 015; entered on: 09/10/17 Sex
--- OUTSIDE RECORDS SUMMARY | 2022-08-20 22:45 | XMS_ITS | Continuity of Care Document ---
:1970 Author Organization [facility] Address [address] [place] [address]- Care Team Providers Name Role Phone Dawna Hernandez MD Primary Care Physician [place] [facility] [place](s): 03/11/21 - 04/10/[address] [address] Allergies, Adverse Reactions, Alerts Substance Reaction Severity [...] 04/30/2010:59:00 EDT, Aerosol, Route to Pharmacy Electronically, [id number], [facility]/pharmacy #[id number], 165, cm, 04/30/20 10:31:00 EDT, Hei... [...] tableta en la manana y noche x3ds. [place] katy tableta en la manana y tarde [...] capsule, 1 Refills, Maintenance, 12/14/20 10:57:00 EST, [facility]/pharmacy #[id number], Partial fill upon patient request if [...] 0 Refills, Maintenance, 03/11/21 16:55:00 EDT, Tablet, [facility]/pharmacy #[id number], Partial fill upon patient re... Start [...] Acute 04/11/21 4:49:00EDT, 04/08/21 4:49:00 EDT, Tablet, [facility]/pharmacy #[id number], Partial fill upon patient request if the [...] home, active care Active coordination PADMINI Mata [phone](Confirmed) Fatty infiltration of liver(Confirmed) Active Tubular adenoma of colon(Confirmed) Active Social History Social History Type Response Smoking Status Former smoker; Other: Quit 2 015; entered on: 09/10/17 Sex
--- OUTSIDE RECORDS SUMMARY | 2022-08-20 22:45 | XMS_ITS | Continuity of Care Document ---
:1970 Author Organization [facility] Address [address] [place] [address]- Care Team Providers Name Role Phone Dawna Hernandez MD Primary Care Physician [place] [facility] [place]16[place] - 07/09/[address] [address] Attending Physician: Not on Staff, Attending MD Referring Physician: Cates DO, Crystal Allergies, Adverse Reactions, Alerts Substance Reaction Severity [...] 04/30/2010:59:00 EDT, Aerosol, Route to Pharmacy Electronically, [id number], [facility]/pharmacy #[id number], 165, cm, 04/30/20 10:31:00 [...] tableta en la manana y noche x3ds. [place] katy tableta en la manana y tarde y antes de acostarse., # 90 capsule, Refills 1, Tot. Refills 1, Maintenan... Start Date: 01/18/21 Status: Orderedlidocaine 5% topical film 1 patch, Topically, Daily, PRN Pain , Moderate, # 10 patch, 0 Refills, Maintenance, 04/26/21 10:38:00 EDT, Patch, [id number], Partial fill upon patient request if the [...] Acute 07/11/21 16:54:00 EDT, 06/27/21 16:54:00 EDT, [facility]/pharmacy #[id number], Partial fill upon patient [...] 05/20/21 16:26:00 EDT, Route to Pharmacy Electronically, [facility]/pharmacy #[id number], Partial fill upon patient [...] Maintenance,04/26/21 10:39:00 EDT, Route to Pharmacy Electronically, [facility]/pharmacy #[id number], Partial fill upon patient request if the [...] Health alf, active care Active coordination [facility]MIN[facility] [phone](Confirmed) Fatty infiltration of liver(Confirmed) Active Tubular adenoma of colon(Confirmed) Active Social History Social History Type Response Smoking Status Former smoker; Other: Quit 2 015; entered on: 09/10/17 Sex
--- OUTSIDE RECORDS SUMMARY | 2022-08-20 22:46 | XMS_ITS | Continuity of Care Document ---
:1970 Author Organization [address], [address] [place] [address]- Care Team Providers Name Role Phone Daja MAYBERRY, Mirta Primary Care Physician Encounter [facility] Date(s): 12/28/21 - 01/27/[address], [address] [place], [place] [address] Allergies, Adverse Reactions, Alerts Substance Reaction Severity Status lisinopril Angioedema Active Shrimp Active Immunizations Given and Recorded Vaccine Date Status Refusal Reason SARS-CoV-2 mRNA (gprqvgc-bdvw-yphoz) vax 01/26/22 Given SARS-CoV-2 mRNA (cosxhoz-jvjw-dahnn) vax 12/28/21 Given influenza virus vaccine, inactivated [...] 04/30/2010:59:00 EDT, Aerosol, Route to Pharmacy Electronically, [id number], [id number], 165, cm, 04/30/20 10:31:00 EDT, [...] 15:54:00 EDT, Tablet, [id number], RX in Bulgarian., 166, cm, 01/26/22 9:18:00 EDT, Height, 93.1, kg, 01/26/22 9:18:00 EDT, Dry Weight Start Date: 01/26/22 Status: OrderedCPAP Machine See Instructions, # 1 [...] 12/25/21 14:04:00 EDT, Route to Pharmacy Electronically, [facility], Partial fill upon patient request if the prescription is for a sched... Start Date: 12/25/21 Status: Orderedlidocaine 5% topical film 1 patch, Topically, Daily, PRN Pain , Moderate, # 10 patch, 0 Refills, Maintenance, 04/26/21 10:38:00 EDT, Patch, [facility]/pharmacy #[id number], Partial fill upon patient request if the prescription is for a schedule II opioid drug., 1 patch Topically Daily,PRN:... Start Date: 04/26/21 Status: Orderednaproxen 500 mg oral tablet 1 tablet, By Mouth, 2 times a day, for 30 days, # 60 tablet, 0 Refills, Physician Stop, [id number], 166, cm, 12/28/21 10:33:00 EDT, Height, 91.9, kg, 12/19/21 12:48:00 EST, Dry Weight Start Date: 01/19/22 Stop Date: 02/18/22 Status: Orderedomeprazole 20 mg oral enteric coated capsule 1 capsule = 20 mg, By Mouth, Daily, # 30 capsule, 1 Refills, Maintenance, 12/14/20 10:57:00 EST, [facility]/pharmacy #[id number], Partial fill upon patient request if the prescription is for a schedule II opioid drug., 165, cm, 12/09/20 14:35:00 EST, Height, 90.5,... Start Date: 12/14/20 Stop Date: 02/12/21 Status: OrderedoxyCODONE 15 mg oral tablet 1 tablet = 15 mg, By Mouth, Every 6 hours, for 28 days, [place] checked, # 112 tablet, 0 Refills, Acute 02/23/22 15:56:00 EDT, 01/26/22 15:56:00 EDT, [facility]/pharmacy #[id number], Partial fill upon patient request [...] Refills, Maintenance, 12/25/21 14:05:00 EDT, REC Powder, [facility], Partial fill upon patient request [...] tablet, Refills 5, Route to Pharmacy Electronically, [id number], 166, cm, 12/28/21 10:33:00 EDT, Height, 91.9, [...] 10:39:00 EDT, Route to Pharmacy Electronically, [facility]/pharmacy #4310, Partial fill upon patient request if the [...] I(Confirmed) Active Obstructive sleep apnea(Confirmed) Active Health snf, active care Active coordination PADMINI [facility] [phone](Confirmed) Fatty infiltration of liver(Confirmed) Active Tubular adenoma of colon(Confirmed) Active Social History Social History Type Response Smoking Status Former smoker; Other: Quit 2 015; entered on: 09/10/17 Sex
--- OUTSIDE RECORDS SUMMARY | 2022-08-20 22:46 | XMS_ITS | Continuity of Care Document ---
:1970 Author Organization [facility] Address [address] [place] [address]- Care Team Providers Name Role Phone Dawna Hernandez MD Primary Care Physician [place] [facility] [place] 12/15/20 - 01/14/[address] [address] Allergies, Adverse Reactions, Alerts Substance Reaction [...] 04/30/2010:59:00 EDT, Aerosol, Route to Pharmacy Electronically, [id number], [id number], 165, cm, 04/30/20 10:31:00 EDT, [...] 12/19/20 18:18:00 EST, Route to Pharmacy Electronically, [facility]/pharmacy #[id number], Partial fill upon patient request if the prescription is for a schedule II opioid drug., 164, cm,... Start Date: 12/19/20 Stop Date: 01/18/21 Status: Orderedatorvastatin 20 mg oral tablet 1 tablet = 20 mg, By Mouth, Daily at bedtime, # 30 tablet, 5 Refills, Maintenance, 04/30/20 10:59:00EDT, Tablet, [facility]/pharmacy #[id number], 165, cm, 04/30/20 10:31:00 EDT, [...] 01/11/21 19:56:00 EDT, Route to Pharmacy Electronically, [facility]/pharmacy #[id number], Partial fill upon patient request... Start Date: [...] By Mouth, Daily, Para dolor de espalda. [place] en la noche antes de dormir., # 30 capsule, Refills 1, Tot. Refills 1, Maintenance, 01/13/21 14:21:00 EDT, Route to Pharmacy Electronically, [facility]/pharmacy #[id number], Partial fill upon patient... Start Date: 01/13/21 Stop Date: 03/14/21 Status: Orderedomeprazole 20 mg oral enteric coated capsule 1 capsule = 20 mg, By Mouth, Daily, # 30 capsule, 1 Refills, Maintenance, 12/14/20 10:57:00 EST, [facility]/pharmacy #[id number], Partial fill upon patient request [...] 0 Refills, Maintenance, 12/15/20 17:44:00 EST, Tablet, [facility]/pharmacy #[id number], Partial fill upon patient req... [...] pain(Confirmed) Active Obstructive sleep apnea(Confirmed) Active Health residential, active care Active coordination PADMINI Mata [phone](Confirmed) Fatty infiltration of liver(Confirmed) Active Tubular adenoma of colon(Confirmed) Active Social History Social History Type Response Smoking Status Former smoker; Other: Quit 2 015; entered on: 09/10/17 Sex
--- OUTSIDE RECORDS SUMMARY | 2022-08-20 22:46 | XMS_ITS | Continuity of Care Document ---
:1970 Author Organization [facility] Address [address] [place] [address]- Care Team Providers Name Role Phone Dawna Hernandez MD Primary Care Physician Encounter [facility] Date(s): 06/02/21 - 07/02/[address] [address] Allergies, Adverse Reactions, Alerts Substance [...] 04/30/2010:59:00 EDT, Aerosol, Route to Pharmacy Electronically, [id number], [facility]/pharmacy #[id number], 165, cm, 04/30/20 10:31:00 EDT, Hei... Start Date: 04/30/20 Status: OrderedAlcohol Wipes See Instructions, # 1 box, Maintenance, please use before testing three times a day: dx type 2 diabetes, 04/04/18 18:52:53 EDT, Compound Start Date: 04/04/18 Status: Orderedatorvastatin 20 mg oral tablet 1 tablet = 20 mg, By Mouth, Daily at bedtime, # 30 tablet, 5 Refills, Maintenance, 01/20/21 16:26:00EDT, Tablet, [facility]/pharmacy #[id number], 164, cm, 01/20/21 15:43:00 EDT, Height, [...] 0 Refills, Maintenance, 01/20/21 16:26:00 EDT, Tablet, [facility]/pharmacy #[id number], [...] tableta en la manana y noche x3ds. [place] katy tableta en la manana y tarde y antes de acostarse., # 90 capsule, Refills 1, Tot. Refills 1, Maintenan... Start Date: 01/18/21 Status: Orderedlidocaine 5% topical film 1 patch, Topically, Daily, PRN Pain , Moderate, # 10 patch, 0 Refills, Maintenance, 04/26/21 10:38:00 EDT, Patch, [facility]/pharmacy #5776, Partial fill upon patient request if the [...] Acute 07/11/21 16:54:00 EDT, 06/27/21 16:54:00 EDT, [facility]/pharmacy #[id number], Partial [...] 05/20/21 16:26:00 EDT, [facility] Electronically, [facility] to Pharmacy Electronically, [facility]/pharmacy #[id number], Partial fill upon patient request if the [...] pain(Confirmed) Active Obstructive sleep apnea(Confirmed) Active Health fci, active care Active coordination PADMINI [facility] [phone](Confirmed) Fatty infiltration of liver(Confirmed) Active Tubular adenoma of colon(Confirmed) Active Social History Social History Type Response Smoking Status Former smoker; Other: Quit 2 015; entered on: 09/10/17 Sex
--- OUTSIDE RECORDS SUMMARY | 2022-08-20 22:46 | XMS_ITS | Continuity of Care Document ---
:1970 Author Organization [facility] Address [address] [place] [address]- Care Team Providers Name Role Phone Dawna Hernandez MD Primary Care Physician Encounter [facility] [place] Date(s): 05/24/21 - 06/23/[address] [address] Attending Physician: Eleonora Livingston MD Admitting Physician: Eleonora Livingston MD Allergies, Adverse Reactions, Alerts Substance Reaction [...] 04/30/2010:59:00 EDT, Aerosol, Route to Pharmacy Electronically, [id number], [facility]/pharmacy #[id number], 165, cm, [...] tableta en la manana y noche x3ds. [place] katy tableta en la manana y tarde y antes de acostarse., # 90 capsule, Refills 1, Tot. Refills 1, Maintenan... Start Date: 01/18/21 Status: Orderedlidocaine 5% topical film 1 patch, Topically, Daily, PRN Pain , Moderate, # 10 patch, 0 Refills, Maintenance, 04/26/21 10:38:00 EDT, Patch, [id number], Partial fill upon patient request if the [...] 05/20/21 16:26:00 EDT, Route to Pharmacy Electronically, [facility]/pharmacy #[id number], Partial fill [...] to Pharmacy Electronically, [facility]/pharmacy #[id number], Partial fill upon patient request if the [...] Health long-term, active care Active [facility] [phone](Confirmed) Fatty infiltration of liver(Confirmed) Active Tubular adenoma of colon(Confirmed) Active Social History Social History Type Response Smoking Status Former smoker; Other: Quit 2 015; entered on: 09/10/17 Sex
--- OUTSIDE RECORDS SUMMARY | 2022-08-20 22:46 | XMS_ITS | Continuity of Care Document ---
:1970 Author Organization [facility] Address [address] [place] [address]- Care Team Providers Name Role Phone Dawna Hernandez MD Primary Care Physician Encounter [facility] [place] Date(s): 10/12/21 - 11/11/[address] [address] Allergies, Adverse Reactions, Alerts Substance Reaction Severity [...] 04/30/2010:59:00 EDT, Aerosol, Route to Pharmacy Electronically, [id number], [facility]/pharmacy #[id number], 165, cm, 04/30/20 [...] tableta en la manana y noche x3ds. [place] katy tableta en la manana y tarde y antes de acostarse., # 270 capsule, Refills 3, Tot. Refills 3, Maintena... Start Date: 08/09/21 Status: Orderedlidocaine 5% topical film 1 patch, Topically, Daily, PRN Pain , Moderate, # 10 patch, 0 Refills, Maintenance, 04/26/21 10:38:00 EDT, Patch, [id number], Partial fill upon patient request if the prescription is for a schedule II opioid drug., 1 patch Topically Daily,PRN:... Start Date: 04/26/21 Status: Orderedomeprazole 20 mg oral enteric coated capsule 1 capsule = 20 mg, By Mouth, Daily, # 30 capsule, 1 Refills, Maintenance, 12/14/20 10:57:00 EST, [facility]/pharmacy #[id number], Partial fill upon [...] be used with CPAP machine for dx: MRAIA G G47.30, 08/19/20 14:29:00 EST, Compound Start [...] Instructions ReplaceRequired Details, Route to Pharmacy Electronically, [id number], 165, cm, 06/02/21 12:44:00 EDT,Height, 92.8, kg, 05/19/21 23:20:00 EDT, Dry Weight Start Date: 08/02/21 Status: Orderedpropranolol 20 mg oral tablet 40 mg, 2, tablet, By Mouth, 2 times a day, # 120 tablet, Refills 0, Tot. Refills 0, Maintenance, 08/02/21 15:46:00 EDT, Route to Pharmacy Electronically, [facility]/pharmacy #[id number], Partial fill upon [...] Maintenance,04/26/21 10:39:00 EDT, Route to Pharmacy Electronically, [facility]/pharmacy #[id number], Partial fill upon patient request if the [...] term, active care Active coordination PADMINI Mata [phone](Confirmed) Fatty infiltration of liver(Confirmed) Active Tubular adenoma of colon(Confirmed) Active Social History Social History Type Response Smoking Status Former smoker; Other: Quit 2 015; entered on: 09/10/17 Sex
--- OUTSIDE RECORDS SUMMARY | 2022-08-20 22:46 | XMS_ITS | Continuity of Care Document ---
:1970 Author Organization [facility] Address [address] [place] [address]- Care Team Providers Name Role Phone Dawna Hernandez MD Primary Care Physician [place] [facility] [place] - 05/06/[address] [address] Discharge Disposition: A-D/C AMA Attending Physician: Mary Fine MD Admitting Physician: Mary Fine MD Referring Physician: Not on Staff, Referring [...] 04/30/2010:59:00 EDT, Aerosol, Route to Pharmacy Electronically, [id number], [facility]/pharmacy #[id number], 165, cm, 04/30/20 10:31:00 [...] Refills, Maintenance, 01/20/21 16:26:00EDT, Tablet, [facility]/pharmacy #[id number], 164, cm, 01/20/21 15:43:00 [...] 05/22/21 10:41:00 EDT, 04/26/21 10:41:00 EDT, [facility]/pharmacy #[id number], Partial fill upon patient [...] tableta en la manana y noche x3ds. [place] katy tableta en la manana y tarde y antes de acostarse., # 90 capsule, Refills 1, Tot. Refills 1, Maintenan... Start Date: 01/18/21 Status: Orderedlidocaine 5% topical film 1 patch, Topically, Daily, PRN Pain , Moderate, # 10 patch, 0 Refills, Maintenance, 04/26/21 10:38:00 EDT, Patch, [facility]/pharmacy #[id number], Partial fill upon patient [...] 10:39:00 EDT, Route to Pharmacy Electronically, [facility]/pharmacy #[id number], Partial fill upon patient [...] 05/11/21 9:00:00 EDT, 05/05/21 9:22:00 EDT, Tablet, [facility]/pharmacy #[id number], Partial fill upon patient [...] Health senior living, active care Active coordination [facility] [phone](Confirmed) Fatty infiltration of liver(Confirmed) Active Tubular adenoma of colon(Confirmed) Active Results Radiology Reports Exam Date Time Procedure Performing Provider Status 05/06/21 1:21 PM Chest Portable Silvano Kan ([facility] ed) Notes:(Chest Portable) Reason For Exam: Shortness of BreathRESULT: Chest Portable Chest Portable upright at 12:38 PM Hx of Present Illness: Pt. comes in from home after feeling woozy, seeing stars dizzy he had a syncopial episode and hit his head. Pt. has a large swelling to his right side if head.; Reason: Shortnessof Breath; Clinical Question(s): CHF COMPARISON: 04/23/2021 FINDINGS: LINES AND TUBES: None. LUNGS AND PLEURA: Clear lungs. Normal pulmonary vascularity. No pleural effusion. No pneumothorax. HEART, MEDIASTINUM AND YANETH: Heart is normal in size. Normal upper mediastinal and hilar contour. BONES AND SOFT TISSUES: Normal. IMPRESSION: Normal chest. WSN: [id number] Ordering Physician: Chris Cabrera Dictated By: Yony Urbina MD Dictated Date/Time: 05/06/21 1:36 pm Reviewed By: Yony Urbina MD Signed By: Yony Urbina MD Signed Date/Time: 05/06/21 1:36 pm Transcribed By: HARPAL Transcribed Date/Time: 05/06/21 1:35 pm Vital Signs Most recent to oldest 1 2 3 [Reference Range]: Oxygen Saturation [94-100 %] 98 % 97 % 97 % (05/06/21 5:43 PM) (05/06/21 4:56 PM) (05/06/21 3:0 0 PM) Pulse Rate [55-90 bpm] 81 bpm 83 bpm 84 bpm (05/06/21 5:43 PM) (05/06/21 4:56 PM) (05/06/21 3:0 0 PM) Blood Pressure [90-138/55-84 138/84 mm Hg 120/78 mm Hg 118 /72 mm Hg mm Hg] (05/06/21 5:43 PM) (05/06/21 4:56 PM) (05/06/21 3:0 0 PM) Respiratory Rate [16-30 16 br/min 16 br/min 15 br/mi n br/min] (05/06/21 5:43 PM) (05/06/21 4:56 PM) *L* (05/06/21 3:00 PM ) Temperature [96.8-100.4 DegF] 99.3 DegF 97.6 DegF 97 .6 DegF (05/06/21 5:43 PM) (05/06/21 4:56 PM) (05/06/21 3:0 0 PM) Mode of Delivery (Oxygen) Room air Room air Room a ir (05/06/21 5:43 PM) (05/06/21 4:56 PM) (05/06/21 3:0 0 PM) Blood pressure sites Arm, left Arm, right (05/06/21 5:43 PM) (05/06/21 12:11 PM) Temperature Route Oral Oral Oral (05/06/21 5:43 PM) (05/06/21 4:56 PM) (05/06/21 3:0 0 PM) Social History Social History Type Response Smoking Status Former smoker; Other: Quit 2 015; entered on: 09/10/17 Sex
--- OUTSIDE RECORDS SUMMARY | 2022-08-20 22:46 | XMS_ITS | Continuity of Care Document ---
:[address] [facility] Address [address] [place] [address]- Care Team Providers Name Role Phone Mary RAWLS, Dawna Primary Care Physician [place] [facility] [place](s): 08/30/21 - 09/11/[address] [address] Attending Physician: Dawna Hernandez MD Admitting Physician: [...] 04/30/2010:59:00 EDT, Aerosol, Route to Pharmacy Electronically, [id number], [facility]/pharmacy #[id number], 165, cm, [...] en la manana y noche x3ds. [place] katy tableta en la manana y tarde y antes de acostarse., # 270 capsule, Refills 3, Tot. Refills 3, Maintena... Start Date: 08/09/21 Status: Orderedlidocaine 5% topical film 1 patch, Topically, Daily, PRN Pain , Moderate, # 10 patch, 0 Refills, Maintenance, 04/26/21 10:38:00 EDT, Patch, [id number], Partial fill upon patient request if the [...] Instructions ReplaceRequired Details, Route to Pharmacy Electronically, [id number], 165, cm, 06/02/21 12:44:00 EDT,Height, 92.8, kg, 05/19/21 23:20:00 EDT, Dry Weight Start Date: 08/02/21 Status: Orderedpropranolol 20 mg oral tablet 40 mg, 2, tablet, By Mouth, 2 times a day, # 120 tablet, Refills 0, Tot. Refills 0, Maintenance, 08/02/21 15:46:00 EDT, [facility] Electron[facility], [facility] [...] to Pharmacy Electronically, [facility]/pharmacy #[id number], Partial fill upon patient request if the [...] group home, active care Active coordination PADMINI Mata [phone](Confirmed) Fatty infiltration of liver(Confirmed) Active Tubular adenoma of colon(Confirmed) Active Social History Social History Type Response Smoking Status Former smoker; Other: Quit 2 015; entered on: 09/10/17 Sex
--- OUTSIDE RECORDS SUMMARY | 2022-08-20 22:46 | XMS_ITS | Continuity of Care Document ---
:1970 Author Organization [facility] Address [address] [place] [address]- Care Team Providers Name Role Phone Dawna Hernandez MD Primary Care Physician Encounter [place] Date(s): 03/30/21 - 04/29/[address] [address] Allergies, Adverse Reactions, Alerts Substance [...] 04/30/2010:59:00 EDT, Aerosol, Route to Pharmacy Electronically, [id number], [id number], 165, cm, 04/30/20 10:31:00 EDT, [...] 15:43:00 EDT, Height,... Start Date: 01/20/21 Status: Orderedclindamycin 150 mg oral capsule 3 capsule = 450 mg, By Mouth, Every 8 hours, for 26 days, # 234 capsule, 0 Refills, Acute 05/22/21 10:37:00 EDT, 04/26/21 10:37:00 EDT, Capsule, [id number], Partial fill upon patient request ifthe prescription is for a schedule II opioid drug... Start Date: 04/26/21 Stop Date: 05/22/21 Status: OrderedCPAP Machine See Instructions, # 1 [...] Acute 05/22/21 10:41:00 EDT, 04/26/21 10:41:00 EDT, [facility]/pharmacy #[id number], Partial fill upon patient request if the [...] tableta en la manana y noche x3ds. [place] katy tableta en la manana y tarde y antes de acostarse., # 90 capsule, Refills 1, Tot. Refills 1, Maintenan... Start Date: 01/18/21 Status: Orderedlidocaine 5% topical film 1 patch, Topically, Daily, PRN Pain , Moderate, # 10 patch, 0 Refills, Maintenance, 04/26/21 10:38:00 EDT, Patch, [facility]/pharmacy #[id number], Partial fill upon patient [...] Acute 05/12/21 13:08:00 EDT, 04/28/21 13:08:00 EDT, [facility]/pharmacy #[id number], Partial fill upon patient request if the prescription i... Start Date: 04/28/21 Stop Date: 05/12/21 Status: OrderedoxyCODONE 5 mg oral tablet 5 mg, 1, tablet, By Mouth, Every 6 hours, PRN, for 5 days, # 7 tablet, Refills 0, Tot. Refills 0, Acute 05/01/21 10:39:00 EDT, Pain , Moderate, 04/26/21 10:39:00 EDT, Route to Pharmacy Electronically, [facility]/pharmacy #[id number], Partial fill upon patient requ... Start Date: 04/26/21 Stop Date: 05/01/21 Status: OrderedPAP Supplies - Mask, Tubing, Filters, [...] Maintenance,04/26/21 10:39:00 EDT, Route to Pharmacy Electronically, [facility]/pharmacy #[id number], Partial fill upon patient request if the [...] correction, active care Active coordination PADMINI Mata [phone](Confirmed) Fatty infiltration of liver(Confirmed) Active Tubular adenoma of colon(Confirmed) Active Social History Social History Type Response Smoking Status Former smoker; Other: Quit 2 015; entered on: 09/10/17 Sex
--- OUTSIDE RECORDS SUMMARY | 2022-08-20 22:46 | XMS_ITS | Continuity of Care Document ---
:1970 Author Organization [facility] Address [address] [place] [address]- Care Team Providers Name Role Phone Dawna Hernandez MD Primary Care Physician Encounter [facility] [place] Date(s): 02/09/21 - 03/11/[address] [address] Allergies, Adverse [...] 04/30/2010:59:00 EDT, Aerosol, Route to Pharmacy Electronically, [id number], [facility]/pharmacy #[id number], 165, cm, 04/30/20 [...] tablet, 5 Refills, Maintenance, 01/20/21 16:26:00EDT, Tablet, [facility]/pharmacy #[id number], 164, cm, 01/20/21 [...] 0 Refills, Maintenance, 01/20/21 16:26:00 EDT, Tablet, [facility]/pharmacy #[id number], Partial fill upon patient request if [...] tableta en la manana y noche x3ds. [place] katy tableta en la manana y tarde y antes de acostarse., # 90 capsule, Refills 1, Tot. Refills 1, Maintenan... Start Date: 01/18/21 Status: Orderedomeprazole 20 mg oral enteric coated capsule 1 capsule = 20 mg, By Mouth, Daily, # 30 capsule, 1 Refills, Maintenance, 12/14/20 10:57:00 EST, [facility]/pharmacy #[id number], Partial fill upon patient request if the [...] 0 Refills, Maintenance, 03/11/21 16:55:00 EDT, Tablet, [facility]/pharmacy #[id number], Partial fill upon patient re... [...] Health fdc, active care Active [facility] [phone](Confirmed) Fatty infiltration of liver(Confirmed) Active Tubular adenoma of colon(Confirmed) Active Social History Social History Type Response Smoking Status Former smoker; Other: Quit 2 015; entered on: 09/10/17 Sex
--- OUTSIDE RECORDS SUMMARY | 2022-08-20 22:46 | XMS_ITS | Continuity of Care Document ---
:1970 Author Organization [facility] Address [address] [place] [address]- Care Team Providers Name Role Phone Dawna Hernandez MD Primary Care Physician Encounter [facility] [place] Date(s): 03/09/20 - 04/08/[address] [address] [place] Attending Physician: Not on Staff, Attending [...] Maintenance, 189:52:06, Aerosol, Route to Pharmacy Electronically, [id number], [facility], Compound Start Date: 11/21/17 Status: OrderedAlcohol Wipes See Instructions, # 1 box, Maintenance, please use before testing three times a day: dx type 2 diabetes, 04/04/18 18:52:53 EDT, Compound Start Date: 04/04/18 Status: Orderedatorvastatin 20 mg oral tablet 1 tablet = 20 mg, By Mouth, Daily, # 30 tablet, 5 Refills, Maintenance, 10/29/19 9:49:00 EST, Tablet, [facility]/pharmacy #[id number], 165, cm, 10/24/19 14:26:00 EST, Height, [...] 2 times a day, # 60 tablet, Refills 0, Tot. Refills 0, Maintenance, 04/07/20 10:09:00 EDT, Route to Pharmacy Electronically, [facility]/pharmacy #[id number], 165, cm, 04/07/20 9:54:00 EDT, Height, 93.2, kg, 12/17/19 11:27:00 EST, Dry We... Start Date: 04/07/20 Stop Date: 05/07/20 Status: OrderedFLUoxetine 20 mg oral capsule 60 [...] 5 Refills, Maintenance, 11/20/19 12:00:00 EST, Tablet, [facility]/pharmacy #[id number], 165, cm, 11/20/19 11:16:00 EST, Height, 97.3, kg, 10/23/19 17:43:00 EST, Dry Weight Start Date: 11/20/19 Status: OrderedNaprosyn 500 mg oral tablet 1 tablet = 500 mg, By Mouth, 2 times a day, # 60 tablet, 1 Refills, Maintenance, 11/20/19 11:59:00 EST, Tablet, [facility]/pharmacy #[id number], 165, cm, 11/20/19 11:16:00 EST, Height, 97.3, kg, 10/23/19 17:43:00 EST, Dry Weight Start Date: 11/20/19 Status: Orderedondansetron 8 mg oral tablet, disintegrating 1 tablet = 8 mg, By Mouth, 3 times a day, # 9 tablet, 0 Refills, Maintenance, 01/02/20 15:06:00 EDT,DIS Tablet, [facility]/pharmacy #[id number], 165, cm, 12/23/19 9:38:00 EDT, Height, 93.2, kg, 12/17/19 11:27:00 EST, Dry Weight Start Date: 01/02/20 Status: OrderedrisperiDONE 2 mg oral tablet 2 mg, 1, tablet, By Mouth, Daily at bedtime, Rx'd by psychiatry, Maintenance, 01/28/19 20:39:47 EDT Start Date: 01/28/19 Status: OrderedShower Bench Shower Bench, See Instructions, # 1 each, Refills 0, Tot. Refills 0, Maintenance, to be used to helpwith hygeine dx: M54.5, 01/29/20 17:13:00 EDT, Supply Start Date: 01/29/20 Status: Orderedsimethicone 80 mg oral tablet, chewable 80 mg, 1, tablet, Chew, 4 times a day, PRN, for 14 days, discontinue tums or similar, # 90 tablet, Refills 1, Tot. Refills 1, Acute 05/05/20 12:44:00 EDT, as needed for gas, 04/07/20 12:44:00 EDT, Route to Pharmacy Electronically, [facility]/pharmacy #[id number],... Start Date: 04/07/20 Stop Date: 05/05/20 Status: OrderedWalker See Instructions, # 1 units, [...] penitentiary, active care Active coordination PADMINI Mata [phone](Confirmed) Fatty infiltration of liver(Confirmed) Active Social History Social History Type Response Smoking Status Former smoker; Other: Quit 2 015; entered on: 09/10/17 Sex
--- OUTSIDE RECORDS SUMMARY | 2022-08-20 22:46 | XMS_ITS | Continuity of Care Document ---
:1970 Author Organization [facility] Address [address] [place] [address]- Care Team Providers Name Role Phone Dawna Hernandez MD Primary Care Physician Encounter [facility] [place] Date(s): 07/11/20 - 07/11/[address] [address]- [facility] Discharge Disposition: A-D/C Walkout Attending Physician: Not [...] 04/30/2010:59:00 EDT, Aerosol, Route to Pharmacy Electronically, [id number], [facility]/pharmacy #[id number], 165, cm, 04/30/20 10:31:00 [...] 06/20/20 14:06:00 EDT, Route to Pharmacy Electronically, [facility], 165, cm, 06/19/20 3:51:00 EDT, Height, 95.8, kg, 06/17/20 2:50:00 EDT, Dry Weight Start Date: 06/20/20 Status: Orderedatorvastatin 20 mg oral tablet 1 tablet = 20 mg, By Mouth, Daily, # 30 tablet, 5 Refills, Maintenance, 04/30/20 10:59:00 EDT, Tablet, [facility]/pharmacy #[id number], 165, cm, 04/30/20 10:31:00 [...] 5 Refills, Maintenance, 06/25/20 8:44:00 EDT, Tablet, [facility], 165, cm, 06/19/20 3:51:00 EDT, Height, 95.8, kg, 06/17/20 2:50:00 EDT, Dry Weight Start Date: 06/25/20 Status: OrderedHibiclens 4% soap 1 applicator, Topically, Daily, Please use to cleanse left knee daily when showering, # 960 mL, 0 Refills, Soft Stop, 06/20/20 14:06:00 EDT, [facility], 1 applicator Topically Daily,Instr:Please use to cleanse left knee daily when shower... Start Date: 06/20/20 Status: Orderedomeprazole 20 mg oral delayed release tablet 1 tablet = 20 mg, By Mouth, Daily, # 30 tablet, 2 Refills, Maintenance, 05/24/20 10:57:00 EDT, EC Tablet, [facility]/pharmacy #[id number], 165, cm, 05/06/20 10:29:00 EDT, Height, 95.8, kg, 04/19/20 14:48:00 EDT, Dry Weight Start Date: 05/24/20 Status: OrderedoxyCODONE 15 mg oral tablet 1 tablet = 15 mg, By Mouth, Every 6 hours, PRN as needed for pain, dx: M54.5 on agreement masspat checked do not fill til 06/28/20, # 28 tablet, 0 Refills, Maintenance, 06/25/20 9:26:00 EDT, Tablet, [facility]/pharmacy #[id number], Partial fill upon patient req... Start Date: 06/25/20 Status: OrderedraNITIdine 75 mg oral tablet 1 tablet = 75 mg, By Mouth, Daily, # 28 tablet, 0 Refills, Maintenance, 04/30/20 10:58:00 EDT, Tablet, [facility]/pharmacy #[id number], 165, cm, 04/30/20 10:31:00 [...] Health custodial, active care Active coordination PADMINI Nancy Esperanza [phone](Confirmed) Fatty infiltration of liver(Confirmed) Active Vital Signs Most recent to oldest [Reference Range]: 1 Oxygen Saturation [94-100 %] 97 % (07/11/20 6:58 PM) Pulse Rate [55-90 bpm] 100 bpm *H* (07/11/20 6:58 PM) Blood Pressure [90-138/55-84 mm Hg] 128/82 mm Hg (07/11/20 6:58 PM) Respiratory Rate [16-30 br/min] 20 br/min (07/11/20 6:58 PM) Temperature [96.8-100.4 DegF] 99.0 DegF (07/11/20 6:58 PM) Liters per Minute 0 L/min (07/11/20 6:58 PM) Mode of Delivery (Oxygen) Room air (07/11/20 6:58 PM) Blood pressure sites Arm, right (07/11/20 6:58 PM) Temperature Route Oral (07/11/20 6:58 PM) Social History Social History Type Response Smoking Status Former smoker; Other: Quit 2 015; entered on: 09/10/17 Sex
--- OUTSIDE RECORDS SUMMARY | 2022-08-20 22:46 | XMS_ITS | Continuity of Care Document ---
:1970 Author Organization [facility] Address [address] [place] [address]- Care Team Providers Name Role Phone Dawna Hernandez MD Primary Care Physician Encounter [facility] [place] Date(s): 01/11/21 - 01/11/[address] [address]- Encounter Diagnosis Back pain (Final) - 01/11/21 Discharge Disposition: A-D/C Home Attending Physician: Amauri Patterson MD Admitting Physician: Amauri Patterson MD Referring Physician: Not on Staff, Referring [...] 04/30/2010:59:00 EDT, Aerosol, Route to Pharmacy Electronically, [id number], [facility]/pharmacy #[id number], 165, cm, 04/30/20 10:31:00 EDT, Hei... [...] 12/19/20 18:18:00 EST, Route to Pharmacy Electronically, [facility]/pharmacy #[id number], Partial fill upon patient request if the prescription is for a schedule II opioid drug., 164, cm,... Start Date: 12/19/20 Stop Date: 01/18/21 Status: Orderedatorvastatin 20 mg oral tablet 1 tablet = 20 mg, By Mouth, Daily at bedtime, # 30 tablet, 5 Refills, Maintenance, 04/30/20 10:59:00EDT, Tablet, [facility]/pharmacy #[id number], 165, cm, 04/30/20 10:31:00 EDT, Height, [...] Orderedcyclobenzaprine 10 mg oral tablet 10 mg, Tablet, By Mouth, Once, STAT, 01/11/21 18:56:00 EDT, Stop date 01/11/21 18:56:00 EDT Start Date: 01/11/21 Stop Date: 01/11/21 Status: Completedcyclobenzaprine 10 mg oral tablet 10 mg, 1, tablet, By Mouth, 3 times a day, PRN, for 7 days, # 13 tablet, Refills 0, Tot. Refills 0, Acute 01/18/21 19:56:00 EDT, for spasm, 01/11/21 19:56:00 EDT, Route to Pharmacy Electronically, [facility]/pharmacy #[id number], Partial fill upon patient request... Start Date: [...] Start Date: 12/28/20 Stop Date: 01/27/21 Status: Orderedomeprazole 20 mg oral enteric coated capsule 1 capsule = 20 mg, By Mouth, Daily, # 30 capsule, 1 Refills, Maintenance, 12/14/20 10:57:00 EST, [facility]/pharmacy #[id number], Partial fill upon patient request if [...] 0 Refills, Maintenance, 12/15/20 17:44:00 EST, Tablet, [facility]/pharmacy #[id number], Partial fill upon patient req... Start [...] Active Health fci, active care Active coordination Netta Nancy [facility] [phone](Confirmed) Fatty infiltration of liver(Confirmed) Active Tubular adenoma of colon(Confirmed) Active Vital Signs Most recent to oldest 1 2 3 [Reference Range]: Weight 98.0 kg 98.0 kg 98.0 kg (01/11/21 6:32 PM) (01/11/21 2:04 PM) (01/11/21 1:3 4 PM) Oxygen Saturation [94-100 %] 98 % 98 % (01/11/21 6:32 PM) (01/11/21 1:34 PM) Pulse Rate [55-90 bpm] 83 bpm 103 bpm (01/11/21 6:32 PM) *H* (01/11/21 1:34 PM) Blood Pressure [90-138/55-84 mm 118/75 mm Hg 140/87 mm Hg Hg] (01/11/21 6:32 PM) *H* (01/11/21 1:34 PM) Respiratory Rate [16-30 br/min] 18 br/min 18 br/min 18 br/min (01/11/21 7:02 PM) (01/11/21 6:32 PM) (01/11/21 1:3 4 PM) Temperature [96.8-100.4 DegF] 98.2 DegF 98.5 DegF (01/11/21 6:32 PM) (01/11/21 1:34 PM) Mode of Delivery (Oxygen) Room air Room air (01/11/21 6:32 PM) (01/11/21 1:34 PM) Blood pressure sites Arm, left (01/11/21 1:34 PM) Temperature Route Oral Oral (01/11/21 6:32 PM) (01/11/21 1:34 PM) Dry Weight 98.0 kg 98.0 kg 98.0 kg (01/11/21 6:32 PM) (01/11/21 2:04 PM) (01/11/21 1:3 4 PM) Weight Obtained Via Standing scale (01/11/21 1:34 PM) Dry Weight Obtained Via Standing scale (01/11/21 1:34 PM) Social History Social History Type Response Smoking Status Former smoker; Other: Quit 2 015; entered on: 09/10/17 Sex
--- OUTSIDE RECORDS SUMMARY | 2022-08-20 22:46 | XMS_ITS | Continuity of Care Document ---
:1970 Author Organization [facility] Address [address] [place] [address]- Care Team Providers Name Role Phone Daja MAYBERRY, Mirta Primary Care Physician Encounter [facility] [place] Date(s): 12/28/21 - 02/17/[address] [address] Attending Physician: Not on Staff, [...] virus vaccine, inactivated 12/06/15 Given SARS-CoV-2 mRNA (mkjaolm-tvxo-itvic) vax 01/26/22 Given SARS-CoV-2 mRNA (auvjzdw-gyog-pbqab) vax 12/28/21 Given tetanus/diphtheria/pertussis, acel(Tdap) 03/29/19 Given tetanus/diphtheria/pertussis, acel(Tdap) 09/10/17 Given pneumococcal 23-valent vaccine 04/08/18 Recorded pneumococcal 23-valent vaccine 04/22/17 Recorded pneumococcal 23-valent vaccine 12/21/12 Given Medications albuterol CFC free 90 mcg/inh inhalation aerosol 2, puffs, Inhalation, Every 6 hours, PRN, # 1 each, Refills 6, Tot. Refills 6, Maintenance, 04/30/2010:59:00 EDT, Aerosol, Route to Pharmacy Electronically, [id number], [id number], 165, cm, 04/30/20 10:31:00 EDT, [...] 0 Refills, Maintenance, 01/26/22 15:54:00 EDT, Tablet, [facility]/pharmacy #[id number], RX in [place] 166, cm, 01/26/22 9:18:00 EDT, Height, 93.1, kg, 01/26/22 9:18:00 EDT, Dry Weight Start Date: 01/26/22 Status: Orderedclotrimazole 1% topical cream 1 application, Topically, 2 times a day, for 21 days, # 60 Gm, 0 Refills, Acute 02/28/22 15:45:00 EDT, 02/07/22 15:45:00 EDT, Cream, [facility]/pharmacy #[id number], Partial fill upon patient [...] 12/25/21 14:04:00 EDT, Route to Pharmacy Electronically, [facility], Partial fill upon patient [...] Acute 02/23/22 15:56:00 EDT, 01/26/22 15:56:00 EDT, [facility]/pharmacy #[id number], Partial fill upon [...] tablet, Refills 5, Route to Pharmacy Electronically, [id number], 166, cm, 12/28/21 10:33:00 EDT, Height, 91.9, [...] EDT, Route to Pharmacy Electronically, [facility]/pharmacy #[id number], Partial fill upon patient request if the [...] Health fci, active care Active coordination PADMINI Nancy Esperanza [phone](Confirmed) Fatty infiltration of liver(Confirmed) Active Tubular adenoma of colon(Confirmed) Active Social History Social History Type Response Smoking Status Former smoker; Other: Quit 2 015; entered on: 09/10/17 Sex
--- OUTSIDE RECORDS SUMMARY | 2022-08-20 22:46 | XMS_ITS | Continuity of Care Document ---
:[address] [facility] Address [address] [place] [address]- Care Team Providers Name Role Phone Dawna Hernandez MD Primary Care Physician Encounter [facility] Date(s): 05/14/20 - 06/13/[address] [address]- [facility] Allergies, Adverse Reactions, Alerts Substance [...] 04/30/2010:59:00 EDT, Aerosol, Route to Pharmacy Electronically, [id number], [facility]/pharmacy #[id number], 165, cm, 04/30/20 10:31:00 EDT, [...] 5 Refills, Maintenance, 11/20/19 12:00:00 EST, Tablet, [facility]/pharmacy #[id number], 165, cm, 11/20/19 11:16:00 EST, Height, 97.3, kg, 10/23/19 17:43:00 EST, Dry Weight Start Date: 11/20/19 Status: Orderedomeprazole 20 mg oral delayed release tablet 1 tablet = 20 mg, By Mouth, Daily, # 30 tablet, 2 Refills, Maintenance, 05/24/20 10:57:00 EDT, EC Tablet, [facility]/pharmacy #[id number], 165, cm, 05/06/20 10:29:00 EDT, Height, 95.8, kg, 04/19/20 14:48:00 EDT, Dry Weight Start Date: 05/24/20 Status: OrderedoxyCODONE 10 mg oral tablet 1 tablet = 10 mg, By Mouth, Every 6 hours, PRN as needed for pain, dx: M54.5 on agreement masspat checked do not fill til 05/25/20, # 20 tablet, 0 Refills, Maintenance, 05/25/20 13:50:00 EDT, Tablet, [facility], Partial fill upon cedric... Start Date: 05/25/20 Status: OrderedraNITIdine 75 mg oral tablet 1 tablet = 75 mg, By Mouth, Daily, # 28 tablet, 0 Refills, Maintenance, 04/30/20 10:58:00 EDT, Tablet, [facility]/pharmacy #[id number], 165, cm, 04/30/20 10:31:00 EDT, [...] Health intermediate, active care Active [facility] [phone](Confirmed) Fatty infiltration of liver(Confirmed) Active Social History Social History Type Response Smoking Status Former smoker; Other: Quit 2 015; entered on: 09/10/17 Sex
--- OUTSIDE RECORDS SUMMARY | 2022-08-20 22:46 | XMS_ITS | Continuity of Care Document ---
:1970 Author Organization [facility] Address [address] [place] [address]- Care Team Providers Name Role Phone Dawna Hernandez MD Primary Care Physician [place] [facility] [place] Date(s): 08/19/21 - 09/18/[address] [address] Allergies, Adverse Reactions, Alerts Substance [...] 04/30/2010:59:00 EDT, Aerosol, Route to Pharmacy Electronically, [id number], [id number], 165, cm, 04/30/20 10:31:00 EDT, [...] tablet, 5 Refills, Maintenance, 01/20/21 16:26:00EDT, Tablet, [facility]/pharmacy #[id number], 164, cm, 01/20/21 15:43:00 [...] tableta en la manana y noche x3ds. Weed katy tableta en la manana y tarde y antes de acostarse., # 270 capsule, Refills 3, Tot. Refills 3, Maintena... Start Date: 08/09/21 Status: Orderedlidocaine 5% topical film 1 patch, Topically, Daily, PRN Pain , Moderate, # 10 patch, 0 Refills, Maintenance, 04/26/21 10:38:00 EDT, Patch, [id number], Partial fill upon patient request if the [...] days, MassPAT checked do not fill until 09/15/21, #56 tablet, 0 Refills, Acute 09/29/21 17:44:00 EST, 09/15/21 17:44:00 EST, [facility]/pharmacy #[id number], Partial fill upon patient request if the prescription i... Start Date: 09/15/21 Stop Date: 09/29/21 Status: OrderedPAP Supplies - Mask, Tubing, Filters, [...] Instructions ReplaceRequired Details, Route to Pharmacy Electronically, [id number], 165, cm, 06/02/21 12:44:00 EDT,Height, 92.8, kg, 05/19/21 23:20:00 EDT, Dry Weight Start Date: 08/02/21 Status: Orderedpropranolol 20 mg oral tablet 40 mg, 2, tablet, By Mouth, 2 times a day, # 120 tablet, Refills 0, Tot. Refills 0, Maintenance, 08/02/21 15:46:00 EDT, Route to Pharmacy Electronically, [facility]/pharmacy #[id number], Partial fill upon patient [...] Maintenance,04/26/21 10:39:00 EDT, Route to Pharmacy Electronically, [facility]/pharmacy #[id number], Partial fill upon patient [...] pain(Confirmed) Active Obstructive sleep apnea(Confirmed) Active Health prison, active care Active coordination PADMINI Mata [phone](Confirmed) Fatty infiltration of liver(Confirmed) Active Tubular adenoma of colon(Confirmed) Active Social History Social History Type Response Smoking Status Former smoker; Other: Quit 2 015; entered on: 09/10/17 Sex
--- OUTSIDE RECORDS SUMMARY | 2022-08-20 22:46 | XMS_ITS | Continuity of Care Document ---
:1970 Author Organization [facility] Address [address] [place] [address]- Care Team Providers Name Role Phone Mary RAWLS, Dawna Primary Care Physician Encounter [facility] [place] Date(s): 12/03/20 - 01/02/21 [facility] [address] [place], [place] [address] Allergies, Adverse Reactions, Alerts Substance [...] 04/30/2010:59:00 EDT, Aerosol, Route to Pharmacy Electronically, [id number], [facility]/pharmacy #[id number], 165, cm, 04/30/20 10:31:00 EDT, [...] 12/19/20 18:18:00 EST, Route to Pharmacy Electronically, [facility]/pharmacy #[id number], Partial fill upon patient request if the prescription is for a schedule II opioid drug., 164, cm,... Start Date: 12/19/20 Stop Date: 01/18/21 Status: Orderedatorvastatin 20 mg oral tablet 1 tablet = 20 mg, By Mouth, Daily at bedtime, # 30 tablet, 5 Refills, Maintenance, 04/30/20 10:59:00EDT, Tablet, [facility]/pharmacy #[id number], 165, cm, 04/30/20 10:31:00 EDT, [...] capsule, 1 Refills, Maintenance, 12/14/20 10:57:00 EST, [facility]/pharmacy #[id number], Partial fill upon patient request if the [...] 0 Refills, Maintenance, 12/15/20 17:44:00 EST, Tablet, [id number], Partial fill upon patient req... Start [...] nursing home, active care Active coordination PADMINI Nancy [facility] [phone](Confirmed) Fatty infiltration of liver(Confirmed) Active Tubular adenoma of colon(Confirmed) Active Social History Social History Type Response Smoking Status Former smoker; Other: Quit 2 015; entered on: 09/10/17 Sex
--- OUTSIDE RECORDS SUMMARY | 2022-08-20 22:46 | XMS_ITS | Continuity of Care Document ---
:1970 Author Organization [facility] Address [address] [place] [address]- Care Team Providers Name Role Phone Dawna Hernandez MD Primary Care Physician Encounter [facility] [place] Date(s): 08/28/19 - 11/15/[address] [address] [place] Attending Physician: Dawna Hernandez MD Admitting Physician: [...] Maintenance, 189:52:06, Aerosol, Route to Pharmacy Electronically, [id number], [facility] [id number], Compound Start Date: 11/21/17 Status: OrderedAlcohol Wipes See Instructions, # 1 box, Maintenance, please use before testing three times a day: dx type 2 diabetes, 04/04/18 18:52:53 EDT, Compound Start Date: 04/04/18 Status: Orderedatorvastatin 20 mg oral tablet 1 tablet = 20 mg, By Mouth, Daily, # 30 tablet, 5 Refills, Maintenance, 10/29/19 9:49:00 EST, Tablet, [facility]/pharmacy #[id number], 165, cm, 10/24/19 14:26:00 EST, Height, [...] 0 Refills, Maintenance, 10/29/19 9:49:00 EST, Capsule, [facility]/pharmacy #[id number], 165, cm, 10/24/19 14:26:00 EST, Height, [...] 10/29/19 9:49:00 EST, Route to Pharmacy Electronically, [facility]/pharmacy #[id number], 165, cm, 10/24/19 14:26:00EST, Height, 97.3, [...] 10/29/19 9:49:00 EST, Route to Pharmacy Electronically, [facility]/pharmacy #[id number], 165, cm, 10/24/19 14:26:00 EST, Height, [...] 10/29/19 9:49:00 EST, Route to Pharmacy Electronically, [facility]/pharmacy #[id number], 165, cm, 10/24/19 14:26:00 EST, Height, [...] half-way, active care Active coordination PADMINI Mata [phone](Confirmed) Poor historian(Confirmed) Active Septic prepatellar bursitis of right Active knee(Confirmed) Septic prepatellar bursitis of left Active knee(Confirmed) Fatty infiltration of liver(Confirmed) Active Social History Social History Type Response Smoking Status Former smoker; Other: Quit 2 015; entered on: 09/10/17 Sex
--- OUTSIDE RECORDS SUMMARY | 2022-08-20 22:46 | XMS_ITS | Continuity of Care Document ---
:1970 Author Organization [facility] Address [address] [place] [address]- Care Team Providers Name Role Phone Dawna Hernandez MD Primary Care Physician En[place] [id number] Date(s): 04/07/21 - 04/08/[address] [address]- Encounter Diagnosis Hematuria (Final) - 04/08/21 Discharge Disposition: A-D/C Home Attending Physician: Anup [...] 04/30/2010:59:00 EDT, Aerosol, Route to Pharmacy Electronically, [id number], [id number], 165, cm, 04/30/20 10:31:00 EDT, Hei... Start [...] tableta en la manana y noche x3ds. [place] katy tableta en la manana y tarde [...] 11:23:00 EDT, 03/30/21 11:23:00 EDT, ER Tablet, [facility]/pharmacy #[id number], Partial fill [...] 0 Refills, Maintenance, 03/11/21 16:55:00 EDT, Tablet, [facility]/pharmacy #[id number], Partial fill [...] Acute 04/11/21 4:49:00EDT, 04/08/21 4:49:00 EDT, Tablet, [facility]/pharmacy #[id number], Partial fill [...] Active Health retirement, active care Active coordination Netta Cruz [facility] [phone](Confirmed) Fatty infiltration of liver(Confirmed) Active Tubular adenoma of colon(Confirmed) Active Vital Signs Most recent to oldest 1 2 3 [Reference Range]: Height 165 cm 165 cm 165 cm (04/08/21 1:06 AM) (04/07/21 3:48 PM) (04/07/21 3:4 5 PM) Weight 99.8 kg 99.8 kg 99.8 kg (04/08/21 1:06 AM) (04/07/21 3:48 PM) (04/07/21 3:4 5 PM) Oxygen Saturation [94-100 %] 100 % 99 % 99 % (04/08/21 5:05 AM) (04/08/21 3:51 AM) (04/08/21 1:0 6 AM) Pulse Rate [55-90 bpm] 78 bpm 70 bpm 60 bpm (04/08/21 5:05 AM) (04/08/21 3:51 AM) (04/08/21 1:0 6 AM) Body Mass Index [18.5-24.99] 36.66 36.66 *>HHI* *>HHI* (04/08/21 1:06 AM) (04/07/21 3:45 PM) Blood Pressure [90-138/55-84 mm 120/78 mm Hg 118/80 mm Hg 115/77 mm Hg Hg] (04/08/21 5:05 AM) (04/08/21 3:51 AM) (04/08/21 1:0 6 AM) Respiratory Rate [16-30 br/min] 17 br/min 18 br/min 16 br/min (04/08/21 5:05 AM) (04/08/21 3:51 AM) (04/08/21 1:0 6 AM) Temperature [96.8-100.4 DegF] 98.2 DegF 98.3 DegF 98 .5 DegF (04/08/21 1:06 AM) (04/07/21 7:34 PM) (04/07/21 3:4 5 PM) Mode of Delivery (Oxygen) Room air Room air (04/07/21 3:45 PM) (04/07/21 3:42 PM) Blood pressure sites Arm, right Arm, right Arm, right (04/08/21 5:05 AM) (04/08/21 3:51 AM) (04/07/21 7:3 4 PM) Temperature Route Oral Oral Oral (04/08/21 1:06 AM) (04/07/21 7:34 PM) (04/07/21 3:4 5 PM) Dry Weight 99.8 kg 99.8 kg 99.8 kg (04/08/21 1:06 AM) (04/07/21 3:48 PM) (04/07/21 3:4 5 PM) Weight Obtained Via Standing scale (04/07/21 3:45 PM) Dry Weight Obtained Via Standing scale (04/07/21 3:45 PM) Social History Social History Type Response Smoking Status Former smoker; Other: Quit 2 015; entered on: 09/10/17 Sex
--- OUTSIDE RECORDS SUMMARY | 2022-08-20 22:46 | XMS_ITS | Continuity of Care Document ---
:1970 Author Organization [facility] Address [address] [place] [address]- Care Team Providers Name Role Phone Dawna Hernandez MD Primary Care Physician Encounter [facility] Date(s): 08/02/22 - 08/02/[address] [address]- Encounter Diagnosis Lower back pain (Final) - 08/02/22 Discharge Disposition: A-D/C Home Attending Physician: Christopher Moctezuma MD Admitting Physician: Christopher Moctezuma MD Referring Physician: Not on Staff, Referring [...] virus vaccine, inactivated 12/06/15 Given SARS-CoV-2 mRNA (vinfprx-jbdf-mtedu) vax 01/26/22 Given SARS-CoV-2 mRNA (hljopjp-wxfq-tasyw) vax 12/28/21 Given tetanus/diphtheria/pertussis, acel(Tdap) 03/29/19 Given tetanus/diphtheria/pertussis, acel(Tdap) 09/10/17 Given pneumococcal 23-valent vaccine 04/08/18 Recorded pneumococcal 23-valent vaccine 04/22/17 Recorded pneumococcal 23-valent vaccine 12/21/12 Given Medications albuterol CFC free 90 mcg/inh inhalation aerosol 2, puffs, Inhalation, Every 6 hours, PRN, # 1 each, Refills 6, Tot. Refills 6, Maintenance, 04/30/2010:59:00 EDT, Aerosol, Route to Pharmacy Electronically, [id number], [facility]/pharmacy #[id number], 165, cm, 04/30/20 [...] 3 Refills, Maintenance, 05/11/22 14:22:00 EDT, Tablet, [facility]/pharmacy #[id number], Partial fill [...] tablet, 1 Refills, Maintenance, 04/05/22 7:53:00 EDT, [facility]/pharmacy #[id number], 165, cm, 02/15/22 10:35:00 EDT, Height, [...] severe-G47.33 lenght of... Start Date: 09/10/17 Status: Orderedcyclobenzaprine 10 mg oral tablet 10 mg, 1, tablet, By Mouth, 3 times a day, PRN, for 7 days, # 14 tablet, Refills 0, Tot. Refills 0, Acute 08/09/22 6:26:00 EDT, for spasm, 08/02/22 6:26:00 EDT, Route to Pharmacy Electronically, [facility]/pharmacy #[id number], Partial fill upon patient request if... Start Date: 08/02/22 Stop Date: 08/09/22 Status: OrderedFLUoxetine 20 mg oral capsule 60 [...] 11 Refills, Maintenance, 06/15/22 17:40:00 EDT, Tablet, [facility]/pharmacy #[id number], Partial fill [...] 13:11:00 EDT, Supply Start Date: 02/15/22 Status: Orderedlidocaine 5% topical film 1 patch, Topically, Daily, PRN NEEDED FOR MODERATE PAIN, REMOVE AFTER 12 HOURS (12 HRS ON, 12 HRSOFF), # 10 patch, 0 Refills, Maintenance, 07/20/22 15:26:00 EDT, [id number], 10, APPLY 1 PATCH DAILY NEEDED FOR MODERATE PAIN..REMOVE AFTER 12... Start Date: 07/20/22 Status: OrderedoxyCODONE 15 mg oral tablet 1 tablet = 15 mg, By Mouth, Every 6 hours, for 28 days, MassPAT checked, # 112 tablet, 0 Refills, Acute 08/10/22 9:46:00 EDT, 07/13/22 9:46:00 EDT, [facility]/pharmacy #[id number], Partial fill upon patient requestif the prescription is for a schedule II opioid d... Start Date: 07/13/22 Stop Date: 08/10/22 Status: OrderedPAP Supplies - Mask, Tubing, Filters, [...] tablet, Refills 5, Route to Pharmacy Electronically, [facility], 166, cm, 12/28/21 10:33:00 EDT, Height, 91.9, [...] Date: 07/05/19 Status: Ordered Problem List Condition Confirmation Course Effective Dates Status Health I nformant Status Chest pain Confirmed Active Chest pain Confirmed Active COVID-19 Confirmed Active COVID-19 Confirmed Active Depression Confirmed Active Diabetes Confirmed Active Controlled substance Confirmed Active agreement signed 12/28/2021 GERD Confirmed Active (gastroesophageal reflux disease) Hyperlipidemia Confirmed Active Lower back pain Confirmed Active Obese class I Confirmed Active Obstructive sleep Confirmed Active apnea [facility], Confirmed Active active care coordination Netta Mata [phone] Fatty infiltration of Confirmed Active liver Tubular adenoma of Confirmed Active colon Vital Signs Most recent to oldest 1 2 3 [Reference Range]: Height 165 cm 165 cm 165 cm (08/02/22 5:50 AM) (08/02/22 1:02 AM) (08/02/22 12:54 AM) Weight 91 kg 91 kg 91 kg (08/02/22 5:50 AM) (08/02/22 1:02 AM) (08/02/22 12:54 AM) Oxygen Saturation [94-100 96 % 95 % 97 % %] (08/02/22 6:26 AM) (08/02/22 5:50 AM) (08/02/22 2:59 AM) Pulse Rate [55-90 bpm] 74 bpm 68 bpm 72 bpm (08/02/22 6:26 AM) (08/02/22 5:50 AM) (08/02/22 2:59 AM) Body Mass Index [18.5-24.99 33.43 kg/m2 33.43 kg/m2 kg/m2] *>HHI* *>HHI* (08/02/22 5:50 AM) (08/02/22 12:54 AM) Blood Pressure 114/89 mm Hg 124/85 mm Hg 119/82 mm Hg [90-138/55-84 mm Hg] (08/02/22 6:26 AM) (08/02/22 5:50 AM) (07/15 07/06 2:59 AM) Respiratory Rate [16-30 14 br/min 16 br/min 13 br/mi n br/min] *L* (08/02/22 5:50 AM) *L* (08/02/22 6:26 AM) (08/02/22 2:5 9 AM) Temperature [96.8-100.4 98.0 DegF 98.0 DegF DegF] (08/02/22 1:02 AM) (08/02/22 12:54 AM) Mode of Delivery (Oxygen) Room air Room air Room a ir (08/02/22 6:26 AM) (08/02/22 5:50 AM) (08/02/22 2:59 AM) Blood pressure sites Arm, left Arm, left Arm, left (08/02/22 6:26 AM) (08/02/22 5:50 AM) (08/02/22 2:59 AM) Temperature Route Oral Oral (08/02/22 1:02 AM) (08/02/22 12:54 AM) Dry Weight 91 kg 91 kg 91 kg (08/02/22 5:50 AM) (08/02/22 1:02 AM) (08/02/22 12:54 AM) Social History Social History Type Response Smoking Status Former smoker; Other: Quit 2 015; entered on: 09/10/17 Sex Patient Care team information PersonnelName: Dawna Hernandez MD Address: Address: [address] [place] [id number] [[email or web address]]
--- OUTSIDE RECORDS SUMMARY | 2022-08-20 22:46 | XMS_ITS | Continuity of Care Document ---
:1970 Author Organization [facility] Address [address] [place] [address]- Care Team Providers Name Role Phone Dawna Hernandez MD Primary Care Physician [facility]): [facility]20 - 05/06/[address] [address]- [facility] Attending Physician: Not on Staff, Attending MD [...] 04/30/2010:59:00 EDT, Aerosol, Route to Pharmacy Electronically, [id number], [facility]/pharmacy #[id number], 165, cm, 04/30/20 10:31:00 [...] Refills, Maintenance, 11/20/19 12:00:00 EST, Tablet, [facility]/pharmacy #[id number], 165, cm, 11/20/19 11:16:00 EST, Height, 97.3, kg, 10/23/19 17:43:00 EST, Dry Weight Start Date: 11/20/19 Status: OrderedoxyCODONE 10 mg oral tablet 1 tablet = 10 mg, By Mouth, Every 6 hours, PRN as needed for pain, dx: M54.5 on agreement masspat checked do not fill til 05/06/20, # 20 tablet, 0 Refills, Maintenance, 05/06/20 10:54:00 EDT, Tablet, [facility]/pharmacy #[id number], Partial fill upon patient re... Start Date: 05/06/20 Status: OrderedraNITIdine 75 mg oral tablet 1 tablet = 75 mg, By Mouth, Daily, # 28 tablet, 0 Refills, Maintenance, 04/30/20 10:58:00 EDT, Tablet, [facility]/pharmacy #[id number], 165, cm, 04/30/20 10:31:00 [...] longterm, active care Active coordination PADMINI Mata [phone](Confirmed) Fatty infiltration of liver(Confirmed) Active Social History Social History Type Response Smoking Status Former smoker; Other: Quit 2 015; entered on: 09/10/17 Sex
--- OUTSIDE RECORDS SUMMARY | 2022-08-20 22:47 | XMS_ITS | Continuity of Care Document ---
:1970 Author Organization [address], [address] [place] [address]- Care Team Providers Name Role Phone Daja MAYBERRY, Mirta Primary Care Physician [facility] Date[facility]s): 01/11/22 - 02/10/[address], [address] [place], [place] [address] Attending Physician: Admtr, [id number] Admitting Physician: Admtr, Ar8 Referring Physician: Admtr, Ar8 Allergies, Adverse Reactions, Alerts Substance Reaction Severity Status lisinopril Angioedema Active Shrimp Active Immunizations Given and Recorded Vaccine Date Status Refusal Reason SARS-CoV-2 mRNA (ruhhudj-frpl-hygbu) vax 01/26/22 Given SARS-CoV-2 mRNA (dqwbydl-dchc-bchnt) vax 12/28/21 Given influenza virus vaccine, inactivated [...] 04/30/2010:59:00 EDT, Aerosol, Route to Pharmacy Electronically, [id number], [id number], 165, cm, 04/30/20 10:31:00 EDT, [...] 5 Refills, Maintenance, 01/20/21 16:26:00EDT, Tablet, [facility]/pharmacy #[id number], 164, cm, 01/20/21 15:43:00 EDT, [...] Refills, Maintenance, 01/26/22 15:54:00 EDT, Tablet, [facility]/pharmacy #[id number], RX in Lithuanian., 166, cm, 01/26/22 9:18:00 EDT, Height, 93.1, kg, 01/26/22 9:18:00 EDT, Dry Weight Start Date: 01/26/22 Status: Orderedclotrimazole 1% topical cream 1 application, Topically, 2 times a day, for 21 days, # 60 Gm, 0 Refills, Acute 02/28/22 15:45:00 EDT, 02/07/22 15:45:00 EDT, Cream, [facility]/pharmacy #[id number], Partial fill upon patient request [...] 12/25/21 14:04:00 EDT, Route to Pharmacy Electronically, [facility], Partial fill upon patient request if the prescription is for a sched... Start Date: 12/25/21 Status: OrderedmetroNIDAZOLE 500 mg oral tablet 1 tablet = 500 mg, By Mouth, Every 12 hours, for 7 days, # 14 tablet, 0 Refills, Acute 02/14/22 15:45:00 EDT, 02/07/22 15:45:00 EDT, Tablet, [facility]/pharmacy #[id number], Partial fill upon patient request if theprescription is for a schedule II opioid drug., 1... Start Date: 02/07/22 Stop Date: 02/14/22 Status: Orderedomeprazole 20 mg oral enteric coated capsule 1 capsule = 20 mg, By Mouth, Daily, # 30 capsule, 1 Refills, Maintenance, 12/14/20 10:57:00 EST, [facility]/pharmacy #[id number], Partial fill upon patient request [...] 02/23/22 15:56:00 EDT, 01/26/22 15:56:00 EDT, [facility]/pharmacy #[id number], Partial fill upon patient request [...] Refills 5, Route to Pharmacy Electronically, [facility], 166, cm, 12/28/21 10:33:00 EDT, Height, 91.9, [...] 10:39:00 EDT, Route to Pharmacy Electronically, [facility]/pharmacy #[id number], Partial fill upon patient request if the [...] I(Confirmed) Active Obstructive sleep apnea(Confirmed) Active Health fdc, active care Active coordination PADMINI Nancy Esperanza [phone](Confirmed) Fatty infiltration of liver(Confirmed) Active Tubular adenoma of colon(Confirmed) Active Social History Social History Type Response Smoking Status Former smoker; Other: Quit 2 015; entered on: 09/10/17 Sex
--- OUTSIDE RECORDS SUMMARY | 2022-08-20 22:47 | XMS_ITS | Continuity of Care Document ---
:1970 Author Organization [facility] Address [address] [place] [address]- Care Team Providers Name Role Phone Dawna Hernandez MD Primary Care Physician [facility] Date[facility]s): 09/13/20 - 10/13/[address] [address] Allergies, Adverse Reactions, Alerts Substance Reaction [...] 04/30/2010:59:00 EDT, Aerosol, Route to Pharmacy Electronically, [id number], [facility]/pharmacy #[id number], 165, cm, 04/30/20 [...] 0 Refills, Maintenance, 09/13/20 13:37:00 EST, Tablet, [facility]/pharmacy #[id number], Partial fill upon patient r... Start Date: [...] custodial, active care Active coordination PADMINI Cruz [facility] [phone](Confirmed) Fatty infiltration of liver(Confirmed) Active Tubular adenoma of colon(Confirmed) Active Social History Social History Type Response Smoking Status Former smoker; Other: Quit 2 015; entered on: 09/10/17 Sex
--- OUTSIDE RECORDS SUMMARY | 2022-08-20 22:47 | XMS_ITS | Continuity of Care Document ---
:1970 Author Organization [facility] Address [address] [place] [address]- Care Team Providers Name Role Phone Dawna Hernandez MD Primary Care Physician Encounter [facility] Date(s): 12/15/20 - 01/14/[address] [address] Allergies, Adverse Reactions, Alerts [...] 04/30/2010:59:00 EDT, Aerosol, Route to Pharmacy Electronically, [id number], [id number], 165, cm, 04/30/20 10:31:00 EDT, [...] 12/19/20 18:18:00 EST, Route to Pharmacy Electronically, [facility]/pharmacy #[id number], Partial fill upon patient request if the prescription is for a schedule II opioid drug., 164, cm,... Start Date: 12/19/20 Stop Date: 01/18/21 Status: Orderedatorvastatin 20 mg oral tablet 1 tablet = 20 mg, By Mouth, Daily at bedtime, # 30 tablet, 5 Refills, Maintenance, 04/30/20 10:59:00EDT, Tablet, [facility]/pharmacy #[id number], 165, cm, 04/30/20 [...] 01/11/21 19:56:00 EDT, Route to Pharmacy Electronically, [facility]/pharmacy #[id number], Partial fill upon patient request... Start Date: [...] By Mouth, Daily, Para dolor de espalda. [place] en la noche antes de dormir., # 30 capsule, Refills 1, Tot. Refills 1, Maintenance, 04/01/21 14:21:00 EDT, Route to Pharmacy Electronically, [facility]/pharmacy #[id number], Partial fill upon patient... Start Date: 01/13/21 Stop Date: 03/14/21 Status: Orderedomeprazole 20 mg oral enteric coated capsule 1 capsule = 20 mg, By Mouth, Daily, # 30 capsule, 1 Refills, Maintenance, 12/14/20 10:57:00 EST, [facility]/pharmacy #[id number], Partial fill upon [...] 0 Refills, Maintenance, 12/15/20 17:44:00 EST, Tablet, [facility]/pharmacy #[id number], Partial fill upon [...] living, active care Active coordination PADMINI Mata [phone](Confirmed) Fatty infiltration of liver(Confirmed) Active Tubular adenoma of colon(Confirmed) Active Social History Social History Type Response Smoking Status Former smoker; Other: Quit 2 015; entered on: 09/10/17 Sex
--- OUTSIDE RECORDS SUMMARY | 2022-08-20 22:47 | XMS_ITS | Continuity of Care Document ---
:1970 Author Organization [facility] Address [address] [place] [address]- Care Team Providers Name Role Phone Dawna Hernandez MD Primary Care Physician [facility] Date[facility]s): 08/05/21 - 09/04/[address] [address] Allergies, Adverse Reactions, Alerts Substance Reaction [...] 04/30/2010:59:00 EDT, Aerosol, Route to Pharmacy Electronically, [id number], [facility]/pharmacy #[id number], 165, cm, 04/30/20 10:31:00 EDT, [...] tablet, 5 Refills, Maintenance, 01/20/21 16:26:00EDT, Tablet, [facility]/pharmacy #[id number], 164, cm, 01/20/21 15:43:00 EDT, [...] tableta en la manana y noche x3ds. [place] katy tableta en la manana y tarde y antes de acostarse., # 270 capsule, Refills 3, Tot. Refills 3, Maintena... Start Date: 08/09/21 Status: Orderedlidocaine 5% topical film 1 patch, Topically, Daily, PRN Pain , Moderate, # 10 patch, 0 Refills, Maintenance, 04/26/21 10:38:00 EDT, Patch, [facility]/pharmacy #[id number], Partial fill upon patient request if the prescription is for a schedule II opioid drug., 1 patch Topically Daily,PRN:... Start Date: 04/26/21 Status: Orderedomeprazole 20 mg oral enteric coated capsule 1 capsule = 20 mg, By Mouth, Daily, # 30 capsule, 1 Refills, Maintenance, 12/14/20 10:57:00 EST, [facility]/pharmacy #[id number], Partial fill upon patient request [...] Instructions ReplaceRequired Details, Route to Pharmacy Electronically, [id number], 165, cm, 06/02/21 12:44:00 EDT,Height, 92.8, kg, 05/19/21 23:20:00 EDT, Dry Weight Start Date: 08/02/21 Status: Orderedpropranolol 20 mg oral tablet 40 mg, 2, tablet, By Mouth, 2 times a day, # 120 tablet, Refills 0, Tot. Refills 0, Maintenance, 08/02/21 15:46:00 EDT, Route to Pharmacy Electronically, [facility]/pharmacy #[id number], Partial fill upon patient request [...] Maintenance,04/26/21 10:39:00 EDT, Route to Pharmacy Electronically, [facility]/pharmacy #[id number], Partial fill upon patient request if [...] fpc, active care Active coordination PADMINI Mata [phone](Confirmed) Fatty infiltration of liver(Confirmed) Active Tubular adenoma of colon(Confirmed) Active Social History Social History Type Response Smoking Status Former smoker; Other: Quit 2 015; entered on: 09/10/17 Sex
--- OUTSIDE RECORDS SUMMARY | 2022-08-20 22:47 | XMS_ITS | Continuity of Care Document ---
:1970 Author Organization [facility] Address [address] [place] [address]- Care Team Providers Name Role Phone Dawna Hernandez MD Primary Care Physician [facility] Date(s): 04/03/22 - 05/03/[address] [address] [...] virus vaccine, inactivated 12/06/15 Given SARS-CoV-2 mRNA (ntycfxc-sbay-tiifu) vax 01/26/22 Given SARS-CoV-2 mRNA (sehcrky-xuiw-vfihg) vax 12/28/21 Given tetanus/diphtheria/pertussis, acel(Tdap) 03/29/19 Given tetanus/diphtheria/pertussis, acel(Tdap) 09/10/17 Given pneumococcal 23-valent vaccine 04/08/18 Recorded pneumococcal 23-valent vaccine 04/22/17 Recorded pneumococcal 23-valent vaccine 12/21/12 Given Medications albuterol CFC free 90 mcg/inh inhalation aerosol 2, puffs, Inhalation, Every 6 hours, PRN, # 1 each, Refills 6, Tot. Refills 6, Maintenance, 04/30/2010:59:00 EDT, Aerosol, Route to Pharmacy Electronically, [id number], [id number], 165, cm, 04/30/20 10:31:00 EDT, [...] tablet, 5 Refills, Maintenance, 01/20/21 16:26:00EDT, Tablet, [facility]/pharmacy #[id number], 164, cm, 01/20/21 15:43:00 [...] tablet, 1 Refills, Maintenance, 04/05/22 7:53:00 EDT, [facility]/pharmacy #[id number], 165, cm, 02/15/22 10:35:00 EDT, Height, [...] 12/25/21 14:04:00 EDT, Route to Pharmacy Electronically, [facility], [...] # 60 tablet, 0 Refills, Physician Stop, [facility], 165, cm, 02/15/22 10:35:00 EDT, Height, 90.7, kg, 02/06/22 19:49:00 EDT, Dry Weight Start Date: 04/05/22 Stop Date: 05/05/22 Status: OrderedPAP Supplies - Mask, Tubing, Filters, [...] tablet, Refills 5, Route to Pharmacy Electronically, [facility] 139[facility], 166, cm, 12/28/21 10:33:00 EDT, Height, 91.9, [...] I(Confirmed) Active Obstructive sleep apnea(Confirmed) Active Health [facility], active care Active coordination PADMINI Mata [phone](Confirmed) Fatty infiltration of liver(Confirmed) Active Tubular adenoma of colon(Confirmed) Active Social History Social History Type Response Smoking Status Former smoker; Other: Quit 2 015; entered on: 09/10/17 Sex
--- OUTSIDE RECORDS SUMMARY | 2022-08-20 22:47 | XMS_ITS | Continuity of Care Document ---
:1970 Author Organization [facility] Address [address] [place] [address]- Care Team Providers Name Role Phone Dawna Hernandez MD Primary Care Physician Encounter [facility] ACCT R [id number] Date(s): 12/03/20 - 01/22/[address] [address] Attending Physician: Dawna Hernandez MD Admitting [...] 04/30/2010:59:00 EDT, Aerosol, Route to Pharmacy Electronically, [id number], [facility]/pharmacy #[id number], 165, cm, 04/30/20 10:31:00 [...] 0 Refills, Maintenance, 01/20/21 16:26:00 EDT, Tablet, [facility]/pharmacy #[id number], Partial fill upon patient request if [...] tableta en la manana y noche x3ds. [place] katy tableta en la manana y tarde [...] agreement masspat checked do not fill til 01/17/21, # 56 tablet, 0 Refills, Maintenance, 01/17/21 14:58:00 EDT, Tablet, [facility]/pharmacy #[id number], Partial fill upon patient req... Start Date: 01/17/21 Stop Date: 01/31/21 Status: OrderedPAP Supplies - Mask, Tubing, Filters, [...] intermediate, active care Active coordination PADMINI Mata [phone](Confirmed) Fatty infiltration of liver(Confirmed) Active Tubular adenoma of colon(Confirmed) Active Vital Signs Most recent to oldest [Reference Range]: 1 Height 164 cm (12/23/20 8:38 AM) Social History Social History Type Response Smoking Status Former smoker; Other: Quit 2 015; entered on: 09/10/17 Sex
--- OUTSIDE RECORDS SUMMARY | 2022-08-20 22:47 | XMS_ITS | Continuity of Care Document ---
:1970 Author Organization [facility] Address [address] [place] [address]- Care Team Providers Name Role Phone Dawna Hernandez MD Primary Care Physician Encounter [facility] [place] Date(s): 04/20/20 - 04/23/[address] [address]- [facility] Encounter Diagnosis Prepatellar bursitis, right knee (Final) - 04/20/20 Discharge Disposition: A-D/C Home Attending Physician: Mica Duron MD Admitting Physician: Cleo Chi MD Referring Physician: Not on Staff, Referring [...] Given pneumococcal 23-valent vaccine 12/21/12 Given Medications acetaminophen-oxyCODONE 325 mg-5 mg oral tablet 1, tablet, By Mouth, Every 6 hours, PRN, or Pain, Moderate, # 20 tablet, Refills 0, Tot. Refills 0, Maintenance, Pain , Mild, 04/23/20 18:22:00 EDT, Print Requisition, Tablet, Partial fill upon patientrequest Start Date: 04/23/20 Status: OrderedAerochamber See Instructions, # 1 each, Maintenance, as instructed, 11/21/17 9:52:57, Compound Start Date: 11/21/17 Status: Orderedalbuterol CFC free 90 mcg/inh inhalation aerosol 2, puffs, Inhalation, Every 6 hours, PRN, # 1 each, Refills 6, Tot. Refills 6, Maintenance, 189:52:06, Aerosol, Route to Pharmacy Electronically, [id number], [facility] [id number], Compound Start Date: 11/21/17 Status: OrderedAlcohol Wipes See Instructions, # 1 box, Maintenance, please use before testing three times a day: dx type 2 diabetes, 04/04/18 18:52:53 EDT, Compound Start Date: 04/04/18 Status: Orderedaspirin 325 mg oral tablet 325 mg, 1, tablet, By Mouth, Daily, # 30 tablet, Refills 0, Tot. Refills 0, Maintenance, 04/23/20 18:23:00 EDT, Route to Pharmacy Electronically, [facility]/pharmacy #[id number], 165, cm, 04/19/20 14:48:00 EDT, Height, 95.8, kg, 04/19/20 14:48:00 EDT, Dry Weight Start Date: 04/23/20 Status: Orderedatorvastatin 20 mg oral tablet 1 tablet = 20 mg, By Mouth, Daily, # 30 tablet, 5 Refills, Maintenance, 10/29/19 9:49:00 EST, Tablet, [facility]/pharmacy #[id number], 165, cm, 10/24/19 14:26:00 EST, [...] 04/07/20 10:09:00 EDT, Route to Pharmacy Electronically, [facility]/pharmacy #[id number], 165, cm, 04/07/20 9:54:00 EDT, Height, [...] 5 Refills, Maintenance, 11/20/19 12:00:00 EST, Tablet, [facility]/pharmacy #[id number], 165, cm, 11/20/19 11:16:00 EST, Height, 97.3, kg, 10/23/19 17:43:00 EST, Dry Weight Start Date: 11/20/19 Status: OrderedlevoFLOXacin 750 mg oral tablet 1 tablet = 750 mg, By Mouth, Every 24 hours, for 5 days, # 5 tablet, 0 Refills, Acute 04/28/20 18:23:00 EDT, 04/23/20 18:23:00 EDT, Tablet, [facility]/pharmacy #[id number], 165, cm, 04/19/20 14:48:00 EDT, Height, 95.8, kg, 04/19/20 14:48:00 EDT, Dry Weight Start Date: 04/23/20 Stop Date: 04/28/20 Status: OrderedrisperiDONE 2 mg oral tablet 2 [...] 04/07/20 12:44:00 EDT, Route to Pharmacy Electronically, [facility]/pharmacy #[id number],... Start Date: 04/07/20 Stop Date: 05/05/20 [...] Active Health [facility], active care Active coordination Netta Mata [phone](Confirmed) Fatty infiltration of liver(Confirmed) Active Results Orders for Microbiology Reports Name Date AFB Culture w/ AFB Smear, Nonrespiratory (ACID FAST CU LT,NON-RESP) 04/21/20 Anaerobic Culture (ANAEROBIC CULTURE) 04/21/20 Fungal Culture, Nonrespiratory (FUNGAL CULT,NON-RESPIR ATORY) 04/21/20 Sterile Body Fluid Culture W/ Gram Smear (STERILE FLUI D CULT.) 04/21/20 Anaerobic Culture (Culture Anaerobic) 04/20/20 Anaerobic Culture (Culture Anaerobic) 04/20/20 Sterile Body Fluid Culture W/ Gram Smear (Culture Ster ile Body Fluid w/ Gram 04/20/20 Smear) Sterile Body Fluid Culture W/ Gram Smear (Culture Ster ile Body Fluid w/ Gram 04/20/20 Smear) Microbiology Reports TEST:Anaerobic Culture STATUS:Unauthenticated BODY SITE: SOURCE:FLUID COLLECTED DATE/TIME:04/21/20 9:40 AMAnaerobic Culture SPECIMEN DESCRIPTION : FLUID RIGHT KNNEE SPECIAL REQUESTS : NONE CULTURE : NO ANAEROBES ISOLATED SO FAR. REPORT STATUS : PRELIMINARY REPORT TEST:Sterile Fluid Culture STATUS:Modified/Amended/Corrected BODY SITE: SOURCE:FLUID COLLECTED DATE/TIME:04/21/20 9:40 AMSterile Fluid Culture SPECIMEN DESCRIPTION : FLUID RIGHT KNNEE SPECIAL REQUESTS : NONE GRAM STAIN : 4+ POLYMORPHONUCLEAR LEUKOCYTES 4+ GRAM POSITIVE COCCI 3+ GRAM NEGATIVE RODS 3+ GRAM POSITIVE RODS CRITICAL VALUE CALLED AND VERIFIED BY READBACK FOR: SMEAR RES[place] [id number], S1, 04/21/20 AT 1354 BY TECH 701. CULTURE : 4+ STREPTOCOCCUS VIRIDANS SPECIES 1+ KLEBSIELLA OXYTOCA 1+ ENTEROBACTER CLOACAE 1+ STREPTOCOCCI, GR.B BETA HEMOLYTIC ISOLATED FOR SUSCEPTIBILITY RESULT REFER TO BLOOD CULTURE REPORT STATUS : FINAL 04/23/2020 ORGANISM 1+ KLEBSIELLA OXYTOCA METHOD MIN. INHIB. CONC. (MCG/ML) AMPICILLIN RESISTANT AMPICILLIN/SULBACTAM SUSCEPTIBLE AMOXICILLIN/CLAVULAN SUSCEPTIBLE CEFAZOLIN INTERMEDIATE CEFEPIME SUSCEPTIBLE CEFTRIAXONE SUSCEPTIBLE CIPROFLOXACIN SUSCEPTIBLE ERTAPENEM SUSCEPTIBLE GENTAMICIN SUSCEPTIBLE LEVOFLOXACIN SUSCEPTIBLE MEROPENEM SUSCEPTIBLE PIPERACILLIN/TAZOBAC SUSCEPTIBLE TRIMETH/SULFAMETHOX SUSCEPTIBLE TETRACYCLINE SUSCEPTIBLE ORGANISM 1+ ENTEROBACTER CLOACAE METHOD MIN. INHIB. CONC. (MCG/ML) AMPICILLIN INTERMEDIATE AMPICILLIN/SULBACTAM INTERMEDIATE AMOXICILLIN/CLAVULAN RESISTANT CEFAZOLIN RESISTANT CEFEPIME SUSCEPTIBLE CEFTRIAXONE SUSCEPTIBLE CIPROFLOXACIN SUSCEPTIBLE ERTAPENEM SUSCEPTIBLE GENTAMICIN SUSCEPTIBLE LEVOFLOXACIN SUSCEPTIBLE MEROPENEM SUSCEPTIBLE PIPERACILLIN/TAZOBAC SUSCEPTIBLE TRIMETH/SULFAMETHOX SUSCEPTIBLE TETRACYCLINE SUSCEPTIBLETEST:Fungal Culture, Non-Respiratory STATUS:Unauthenticated BODY SITE: SOURCE:FLUID COLLECTED DATE/TIME:04/21/20 9:40 AMFungal Culture, Non-Respiratory SPECIMEN DESCRIPTION : FLUID RIGHT KNNEE SPECIAL REQUESTS : NONE DIRECT EXAM : NO FUNGAL ELEMENTS OBSERVED CULTURE : NO FUNGI ISOLATED AFTER 1 DAY REPORT STATUS : PRELIMINARY REPORT TEST:AFB Culture w/AFB Smear, Non-Respiratory STATUS:Unauthenticated BODY SITE: SOURCE:FLUID COLLECTED DATE/TIME:04/21/20 9:40 AMAFB Culture w/AFB Smear, Non-Respiratory SPECIMEN DESCRIPTION : FLUID RIGHT KNNEE SPECIAL REQUESTS : NONE DIRECT EXAM : NO ACID FAST BACILLI SEEN ON DIRECT SMEAR, TEST PERFORMED AT [facility] CULTURE : SPECIMEN SENT TO [facility] [facility], [place], [place] REPORT STATUS : PRELIMINARY REPORT TEST:Anaerobic Culture STATUS:Unauthenticated BODY SITE: SOURCE:ASPIRA COLLECTED DATE/TIME:04/20/20 12:00 PMAnaerobic Culture SPECIMEN DESCRIPTION : ASPIRATE KNEE RT SPECIAL REQUESTS : NONE CULTURE : NO ANAEROBES ISOLATED SO FAR. REPORT STATUS : PRELIMINARY REPORT TEST:Sterile Fluid Culture STATUS:Auth (Verified) BODY SITE: SOURCE:JOINT COLLECTED DATE/TIME:04/20/20 12:00 PMSterile Fluid Culture SPECIMEN DESCRIPTION : JOINT FLUID SPECIAL REQUESTS : NONE GRAM STAIN : 2+ WHITE BLOOD CELLS 3+ RBC'S NO ORGANISMS SEEN CULTURE : NO GROWTH 2 DAYS REPORT STATUS : FINAL 04/22/2020TEST:Sterile Fluid Culture STATUS:Unauthenticated BODY SITE: SOURCE:JOINT COLLECTED DATE/TIME:04/20/20 12:00 PMSterile Fluid Culture SPECIMEN DESCRIPTION : JOINT FLUID SPECIAL REQUESTS : NONE GRAM STAIN : 4+ POLYMORPHONUCLEAR LEUKOCYTES 4+ GRAM POSITIVE COCCI 4+ GRAM NEGATIVE RODS 3+ GRAM POSITIVE RODS CRITICAL VALUE CALLED AND VERIFIED BY READBACK FOR: GRAM STAIN CALLED TO [id number], EDE, 04/20/20 AT 1935, BY TECH 1748. CULTURE : 4+ VIRIDANS GROUP STREPTOCOCCI 4+ ENTEROBACTER CLOACAE 3+ STREPTOCOCCI, GR.B BETA HEMOLYTIC ISOLATED CRITICAL VALUE CALLED AND VERIFIED BY READBACK FOR: STREPTOCOCCUS SPECIES GRAM NEGATIVE RODS TO EMP [id number], AT 1345, 04/21/20, BY TECH 169 4+ KLEBSIELLA OXYTOCA ORGANISM 4+ KLEBSIELLA OXYTOCA METHOD MIN. INHIB. CONC. (MCG/ML) AMPICILLIN RESISTANT AMPICILLIN/SULBACTAM SUSCEPTIBLE AMOXICILLIN/CLAVULAN SUSCEPTIBLE CEFAZOLIN RESISTANT CEFEPIME SUSCEPTIBLE CEFTRIAXONE SUSCEPTIBLE CIPROFLOXACIN SUSCEPTIBLE ERTAPENEM SUSCEPTIBLE GENTAMICIN SUSCEPTIBLE LEVOFLOXACIN SUSCEPTIBLE MEROPENEM SUSCEPTIBLE PIPERACILLIN/TAZOBAC SUSCEPTIBLE TRIMETH/SULFAMETHOX SUSCEPTIBLE TETRACYCLINE SUSCEPTIBLE ORGANISM 4+ VIRIDANS GROUP STREPTOCOCCI METHOD MIN. INHIB. CONC. (MCG/ML) PENICILLIN SUSCEPTIBLE ORGANISM 4+ ENTEROBACTER CLOACAE METHOD MIN. INHIB. CONC. (MCG/ML) AMPICILLIN RESISTANT AMPICILLIN/SULBACTAM INTERMEDIATE AMOXICILLIN/CLAVULAN RESISTANT CEFAZOLIN RESISTANT CEFEPIME SUSCEPTIBLE CEFTRIAXONE SUSCEPTIBLE CIPROFLOXACIN SUSCEPTIBLE ERTAPENEM SUSCEPTIBLE GENTAMICIN SUSCEPTIBLE LEVOFLOXACIN SUSCEPTIBLE MEROPENEM SUSCEPTIBLE PIPERACILLIN/TAZOBAC SUSCEPTIBLE TRIMETH/SULFAMETHOX SUSCEPTIBLE TETRACYCLINE SUSCEPTIBLE REPORT STATUS : PRELIMINARY REPORT TEST:Anaerobic Culture STATUS:Unauthenticated BODY SITE: SOURCE:ASPIRA COLLECTED DATE/TIME:04/20/20 12:00 PMAnaerobic Culture SPECIMEN DESCRIPTION : ASPIRATE KNEE RT SPECIAL REQUESTS : NONE CULTURE : NO ANAEROBES ISOLATED SO FAR. REPORT STATUS : PRELIMINARY REPORT Radiology Reports Exam Date Time Procedure Performing Provider Status 04/20/20 7:05 AM Knee 1 or 2 Views Right Tiny Mary; Auth (V erified) Notes:(Knee 1 or 2 Views Right) Reason For Exam: TraumaRESULT: Knee 1 or 2 Views Right Examination: Right knee performed on 04/20/2020. History: Reason: Trauma; Clinical Question(s): Fracture; Hx of Present Illness: Knee pain; Other Objective Findings: Reports injuring knee on 04 12, since has developed increased pain, swelling and redness to right knee. Denies drainage. No open areas. Reports fever at home. d increased pain, swelling and redness to right knee. Findings: Frontal and lateral views of the right knee are compared to a prior study dated 06/29/2019. Again seen is fragmentation of the tibial tubercle, likely the sequela of prior trauma. No acute fractures or dislocations are demonstrated. Soft tissue swelling anterior to the tibial tubercle is noted. No soft tissue air is present. IMPRESSION: Soft tissue swelling. There is no acute osseous abnormality. WSN: [id number] Ordering Physician: River Julian Dictated By: Ruma Link MD Dictated Date/Time: 04/20/20 7:36 am Reviewed By: Ruma Link MD Signed By: Ruma Link MD Signed Date/Time: 04/20/20 7:36 am Transcribed By: HARPAL Transcribed Date/Time: 04/20/20 7:35 am Vital Signs Most recent to oldest 1 2 3 [Reference Range]: Oxygen Saturation [94-100 %] 98 % 99 % 98 % (04/23/20 4:00 PM) (04/23/20 11:00 AM) (04/23/20 8: 00 AM) Pulse Rate [55-90 bpm] 82 bpm 79 bpm 91 bpm (04/23/20 4:00 PM) (04/23/20 11:00 AM) *H* (04/23/20 8:00 AM ) Blood Pressure [90-138/55-84 114/76 mm Hg 109/71 mm Hg 111 /73 mm Hg mm Hg] (04/23/20 4:00 PM) (04/23/20 11:00 AM) (04/23/20 8: 00 AM) Respiratory Rate [16-30 18 br/min 16 br/min 18 br/mi n br/min] (04/23/20 4:00 PM) (04/23/20 1:56 PM) (04/23/20 11: 00 AM) Temperature [96.8-100.4 DegF] 98.3 DegF 98.2 DegF 98 .2 DegF (04/23/20 4:00 PM) (04/23/20 11:00 AM) (04/23/20 8: 00 AM) Liters per Minute 4 L/min 4 L/min 4 L/min (04/21/20 12:00 PM) (04/21/20 10:45 AM) (04/21/20 10:1 5 AM) Mode of Delivery (Oxygen) Room air Room air Room a ir (04/23/20 4:00 PM) (04/23/20 11:00 AM) (04/23/20 8: 00 AM) Blood pressure sites Arm, left Arm, left Arm, left (04/23/20 4:00 PM) (04/23/20 11:00 AM) (04/23/20 8: 00 AM) Temperature Route Oral Oral Oral (04/23/20 4:00 PM) (04/23/20 11:00 AM) (04/23/20 8: 00 AM) Social History Social History Type Response Smoking Status Former smoker; Other: Quit 2 015; entered on: 09/10/17 Sex
--- OUTSIDE RECORDS SUMMARY | 2022-08-20 22:47 | XMS_ITS | Continuity of Care Document ---
:1970 Author Organization [facility] Address [address] [place] [address]- Care Team Providers Name Role Phone Dawna Hernandez MD Primary Care Physician Encounter [facility] [place] Date(s): 01/28/20 - 02/04/[address] [address] [place] Encounter Diagnosis Lower back pain (Discharge Diagnosis) - 01/28/20 Fatty infiltration of liver (Discharge Diagnosis) - 01/28/20 Attending Physician: Dawna Hernandez MD Allergies, Adverse Reactions, [...] Maintenance, 189:52:06, Aerosol, Route to Pharmacy Electronically, [id number], [facility] [id number], Compound Start Date: 11/21/17 Status: OrderedAlcohol Wipes See Instructions, # 1 box, Maintenance, please use before testing three times a day: dx type 2 diabetes, 04/04/18 18:52:53 EDT, Compound Start Date: 04/04/18 Status: Orderedatorvastatin 20 mg oral tablet 1 tablet = 20 mg, By Mouth, Daily, # 30 tablet, 5 Refills, Maintenance, 10/29/19 9:49:00 EST, Tablet, [id number], 165, cm, 10/24/19 14:26:00 EST, Height, [...] 09/10/17 9:39:22, Compound Start Date: 09/10/17 Status: OrderedEndocet 5/325 oral tablet 1 tablet, By Mouth, Every 12 hours, MassPAT checked dx: M54.5, # 14 tablet, 0 Refills, Maintenance, 01/28/20 10:50:00 EDT, [id number], Partial fill upon patient request, 1 tablet By Mouth Every12 hours,x7 days,Instr:MassPAT checked; dx: M54.... Start Date: 01/28/20 Stop Date: 02/04/20 Status: Orderedfamotidine 20 mg oral tablet 20 mg, 1, tablet, By Mouth, 2 times a day, # 20 tablet, Refills 0, Tot. Refills 0, Maintenance, 01/02/20 15:07:00 EDT, Route to Pharmacy Electronically, [facility]/pharmacy #[id number], 165, cm, 12/23/19 9:38:00 EDT, Height, [...] 5 Refills, Maintenance, 11/20/19 12:00:00 EST, Tablet, [facility]/pharmacy #[id number], 165, cm, 11/20/19 11:16:00 EST, Height, 97.3, kg, 10/23/19 17:43:00 EST, Dry Weight Start Date: 11/20/19 Status: OrderedNaprosyn 500 mg oral tablet 1 tablet = 500 mg, By Mouth, 2 times a day, # 60 tablet, 1 Refills, Maintenance, 11/20/19 11:59:00 EST, [id number], cm, 11/20/19 11:16:00 EST, Height, 97.3, kg, 10/23/19 17:43:00 EST, Dry Weight Start Date: 11/20/19 Status: Orderedondansetron 8 mg oral tablet, disintegrating 1 tablet = 8 mg, By Mouth, 3 times a day, # 9 tablet, 0 Refills, Maintenance, 01/02/20 15:06:00 EDT,DIS Tablet, [facility]/pharmacy #[id number], 165, cm, 12/23/19 9:38:00 EDT, Height, [...] 12/23/19 10:09:00 EDT, Route to Pharmacy Electronically, [facility]/pharmacy #[id number], 165, cm, 12/23/19 9:38:00 EDT, Height, [...] Health residential, active care Active coordination PADMINI Cruz Esperanza [phone](Confirmed) Fatty infiltration of liver(Confirmed) Active Diagnosis Diagnosis Type Effective Dates Health Clinical Infor mant Status Service Lower back pain Discharge 01/28/20 Diagnosis Fatty infiltration Discharge 01/28/20 of liver Diagnosis Social History Social History Type Response Smoking Status Former smoker; Other: Quit 2 015; entered on: 09/10/17 Sex
--- OUTSIDE RECORDS SUMMARY | 2022-08-20 22:47 | XMS_ITS | Continuity of Care Document ---
:1970 Author Organization [facility] Address [address] [place] [address]- Care Team Providers Name Role Phone Dawna Hernandez MD Primary Care Physician Encounter [facility] Date(s): 06/14/20 - 07/14/[address] [address]- [facility] Allergies, Adverse Reactions, Alerts Substance Reaction [...] 04/30/2010:59:00 EDT, Aerosol, Route to Pharmacy Electronically, [id number], [facility]/pharmacy #[id number], 165, cm, 04/30/20 [...] 06/20/20 14:06:00 EDT, Route to Pharmacy Electronically, [facility], 165, cm, 06/19/20 3:51:00 EDT, Height, 95.8, kg, 06/17/20 2:50:00 EDT, Dry Weight Start Date: 06/20/20 Status: Orderedatorvastatin 20 mg oral tablet 1 tablet = 20 mg, By Mouth, Daily, # 30 tablet, 5 Refills, Maintenance, 04/30/20 10:59:00 EDT, Tablet, [facility]/pharmacy #[id number], 165, cm, [...] 5 Refills, Maintenance, 06/25/20 8:44:00 EDT, Tablet, [facility], 165, cm, 06/19/20 3:51:00 EDT, Height, 95.8, kg, 06/17/20 2:50:00 EDT, Dry Weight Start Date: 06/25/20 Status: OrderedHibiclens 4% soap 1 applicator, Topically, Daily, Please use to cleanse left knee daily when showering, # 960 mL, 0 Refills, Soft Stop, 06/20/20 14:06:00 EDT, [facility], 1 applicator Topically Daily,Instr:Please use to cleanse left knee daily when shower... Start Date: 06/20/20 Status: Orderedomeprazole 20 mg oral delayed release tablet 1 tablet = 20 mg, By Mouth, Daily, # 30 tablet, 2 Refills, Maintenance, 05/24/20 10:57:00 EDT, EC Tablet, [facility]/pharmacy #[id number], 165, cm, 05/06/20 10:29:00 EDT, Height, 95.8, kg, 04/19/20 14:48:00 EDT, Dry Weight Start Date: 05/24/20 Status: OrderedoxyCODONE 15 mg oral tablet 1 tablet = 15 mg, By Mouth, Every 6 hours, PRN as needed for pain, dx: M54.5 on agreement masspat checked do not fill til 06/28/20, # 28 tablet, 0 Refills, Maintenance, 06/25/20 9:26:00 EDT, Tablet, [facility]/pharmacy #[id number], Partial fill upon patient req... Start Date: 06/25/20 Status: OrderedraNITIdine 75 mg oral tablet 1 tablet = 75 mg, By Mouth, Daily, # 28 tablet, 0 Refills, Maintenance, 04/30/20 10:58:00 EDT, Tablet, [facility]/pharmacy #[id number], 165, cm, [...] nursing home, active care Active [facility] [phone](Confirmed) Fatty infiltration of liver(Confirmed) Active Social History Social History Type Response Smoking Status Former smoker; Other: Quit 2 015; entered on: 09/10/17 Sex
--- OUTSIDE RECORDS SUMMARY | 2022-08-20 22:47 | XMS_ITS | Continuity of Care Document ---
:1970 Author Organization [facility] Address [address] [place] [address]- Care Team Providers Name Role Phone Dawna Hernandez MD Primary Care Physician Encounter [facility] Date(s): 07/01/20 - 07/31/[address] [address]- [place] Attending Physician: AdmLori sandhu Admitting Physician: AdmtrLori [...] 04/30/2010:59:00 EDT, Aerosol, Route to Pharmacy Electronically, [id number], [facility]/pharmacy #[id number], 165, [...] 06/20/20 14:06:00 EDT, Route to Pharmacy Electronically, [facility], 165, cm, 06/19/20 3:51:00 EDT, Height, 95.8, kg, 06/17/20 2:50:00 EDT, Dry Weight Start Date: 06/20/20 Status: Orderedatorvastatin 20 mg oral tablet 1 tablet = 20 mg, By Mouth, Daily, # 30 tablet, 5 Refills, Maintenance, 04/30/20 10:59:00 EDT, Tablet, [facility]/pharmacy #[id number], 165, cm, 04/30/20 10:31:00 EDT, Height, [...] 5 Refills, Maintenance, 06/25/20 8:44:00 EDT, Tablet, [facility], 165, cm, 06/19/20 3:51:00 EDT, Height, 95.8, kg, 06/17/20 2:50:00 EDT, Dry Weight Start Date: 06/25/20 Status: OrderedHibiclens 4% soap 1 applicator, Topically, Daily, Please use to cleanse left knee daily when showering, # 960 mL, 0 Refills, Soft Stop, 06/20/20 14:06:00 EDT, [facility], 1 applicator Topically Daily,Instr:Please use to cleanse left knee daily when shower... Start Date: 06/20/20 Status: Orderedomeprazole 20 mg oral delayed release tablet 1 tablet = 20 mg, By Mouth, Daily, # 30 tablet, 2 Refills, Maintenance, 05/24/20 10:57:00 EDT, EC Tablet, [facility]/pharmacy #[id number], 165, cm, 05/06/20 10:29:00 EDT, Height, 95.8, kg, 04/19/20 14:48:00 EDT, Dry Weight Start Date: 05/24/20 Status: OrderedoxyCODONE 15 mg oral tablet 1 tablet = 15 mg, By Mouth, Every 6 hours, PRN as needed for pain, dx: M54.5 on agreement masspat checked do not fill til 07/29/20, # 28 tablet, 0 Refills, Maintenance, 07/29/20 16:55:00 EDT, Tablet, [id number] upon patient r... Start Date: 07/29/20 Stop Date: 08/05/20 Status: OrderedraNITIdine 75 mg oral tablet 1 tablet = 75 mg, By Mouth, Daily, # 28 tablet, 0 Refills, Maintenance, 04/30/20 10:58:00 EDT, Tablet, [id number], 165, cm, 04/30/20 10:31:00 EDT, Height, [...] [facility], active care Active coordination PADMINI Mata [phone](Confirmed) Fatty infiltration of liver(Confirmed) Active Social History Social History Type Response Smoking Status Former smoker; Other: Quit 2 015; entered on: 09/10/17 Sex
--- OUTSIDE RECORDS SUMMARY | 2022-08-20 22:47 | XMS_ITS | Continuity of Care Document ---
:1970 Author Organization [facility] Address [address] [place] [address]- Care Team Providers Name Role Phone Dawna Hernandez MD Primary Care Physician Encounter [facility] [place] Date(s): 04/19/20 - 04/19/[address] [address]- [facility] Discharge Disposition: A-D/C Walkout Attending Physician: Not [...] Maintenance, 189:52:06, Aerosol, Route to Pharmacy Electronically, [id number], [facility] [id number], Compound Start Date: 2/7/18 Status: OrderedAlcohol Wipes See Instructions, # 1 box, Maintenance, please use before testing three times a day: dx type 2 diabetes, 04/04/18 18:52:53 EDT, Compound Start Date: 04/04/18 Status: Orderedatorvastatin 20 mg oral tablet 1 tablet = 20 mg, By Mouth, Daily, # 30 tablet, 5 Refills, Maintenance, 10/29/19 9:49:00 EST, Tablet, [facility]/pharmacy #[id number], 165, cm, 10/24/19 14:26:00 EST, [...] 04/07/20 10:09:00 EDT, Route to Pharmacy Electronically, [facility]/pharmacy #[id number], 165, cm, 04/07/20 9:54:00 EDT, [...] 5 Refills, Maintenance, 11/20/19 12:00:00 EST, Tablet, [facility]/pharmacy #[id number], 165, cm, 11/20/19 11:16:00 EST, Height, 97.3, kg, 10/23/19 17:43:00 EST, Dry Weight Start Date: 11/20/19 Status: OrderedrisperiDONE 2 mg oral tablet 2 [...] 04/07/20 12:44:00 EDT, Route to Pharmacy Electronically, [facility]/pharmacy #[id number],... Start Date: 04/07/20 Stop Date: 05/05/20 Status: [...] Health long-term, active care Active [facility] [phone](Confirmed) Fatty infiltration of liver(Confirmed) Active Vital Signs Most recent to oldest [Reference Range]: 1 Height 165 cm (04/19/20 2:48 PM) Weight 95.8 kg (04/19/20 2:48 PM) Oxygen Saturation [94-100 %] 99 % (04/19/20 2:48 PM) Pulse Rate [55-90 bpm] 128 bpm 1 *H* (04/19/20 2:48 PM) Body Mass Index [18.5-24.99] 35.19 *>HHI* (04/19/20 2:48 PM) Blood Pressure [90-138/55-84 mm Hg] 126/90 mm Hg (04/19/20 2:48 PM) Respiratory Rate [16-30 br/min] 18 br/min (04/19/20 2:48 PM) Temperature [96.8-100.4 DegF] 98.0 DegF (04/19/20 2:48 PM) Mode of Delivery (Oxygen) Room air (04/19/20 2:48 PM) Blood pressure sites Arm, right (04/19/20 2:48 PM) Temperature Route Oral (04/19/20 2:48 PM) Dry Weight 95.8 kg (04/19/20 2:48 PM) Weight Obtained Via Standing scale (04/19/20 2:48 PM) Dry Weight Obtained Via Standing scale (04/19/20 2:48 PM) 1Result Comment: Edwige GOLDEN aware of pulse. Social History Social History Type Response Smoking Status Former smoker; Other: Quit 2 015; entered on: 09/10/17 Sex
--- OUTSIDE RECORDS SUMMARY | 2022-08-20 22:47 | XMS_ITS | Continuity of Care Document ---
:1970 Author Organization [facility] Address [address] [place] [address]- Care Team Providers Name Role Phone Dawna Hernandez MD Primary Care Physician [facility] Date(s): 03/18/21 - 04/17/[address] [address] Allergies, [...] 04/30/2010:59:00 EDT, Aerosol, Route to Pharmacy Electronically, [id number], [facility]/pharmacy #[id number], 165, cm, 04/30/20 [...] tableta en la manana y noche x3ds. [place] katy tableta en la manana y tarde y antes de acostarse., # 90 capsule, Refills 1, Tot. Refills 1, Maintenan... Start Date: 01/18/21 Status: Orderedomeprazole 20 mg oral enteric coated capsule 1 capsule = 20 mg, By Mouth, Daily, # 30 capsule, 1 Refills, Maintenance, 12/14/20 10:57:00 EST, [facility]/pharmacy #[id number], Partial fill upon [...] long-term, active care Active coordination PADMINI Mata [phone](Confirmed) Fatty infiltration of liver(Confirmed) Active Tubular adenoma of colon(Confirmed) Active Social History Social History Type Response Smoking Status Former smoker; Other: Quit 2 015; entered on: 09/10/17 Sex
--- OUTSIDE RECORDS SUMMARY | 2022-08-20 22:47 | XMS_ITS | Continuity of Care Document ---
:1970 Author Organization [facility] Address [address] [place] [address]- Care Team Providers Name Role Phone Dawna Hernandez MD Primary Care Physician Encounter [facility] Date(s): 12/17/19 - 12/17/[address] [address]- [facility] Encounter Diagnosis Viral illness (Final) - 12/17/19 Discharge Disposition: A-D/C Home Attending Physician: Catherine Bazan MD Admitting Physician: Catherine Bazan MD Referring Physician: Not on Staff, Referring [...] Maintenance, 189:52:06, Aerosol, Route to Pharmacy Electronically, [id number], [facility] [id number], Compound Start Date: 11/21/17 Status: OrderedAlcohol Wipes See Instructions, # 1 box, Maintenance, please use before testing three times a day: dx type 2 diabetes, 04/04/18 18:52:53 EDT, Compound Start Date: 04/04/18 Status: Orderedatorvastatin 20 mg oral tablet 1 tablet = 20 mg, By Mouth, Daily, # 30 tablet, 5 Refills, Maintenance, 10/29/19 9:49:00 EST, Tablet, [facility]/pharmacy #[id number], 165, cm, 10/24/19 14:26:00 EST, [...] 10/29/19 9:49:00 EST, Route to Pharmacy Electronically, [facility]/pharmacy #[id number], 165, cm, 10/24/19 14:26:00EST, Height, [...] 5 Refills, Maintenance, 11/20/19 12:00:00 EST, Tablet, [facility]/pharmacy #[id number], 165, cm, 11/20/19 11:16:00 EST, Height, 97.3, kg, 10/23/19 17:43:00 EST, Dry Weight Start Date: 11/20/19 Status: OrderedNaprosyn 500 mg oral tablet 1 tablet = 500 mg, By Mouth, 2 times a day, # 60 tablet, 1 Refills, Maintenance, 11/20/19 11:59:00 EST, Tablet, [facility]/pharmacy #[id number], 165, cm, 11/20/19 11:16:00 EST, [...] 10/29/19 9:49:00 EST, Route to Pharmacy Electronically, [facility]/pharmacy #[id number], 165, cm, 10/24/19 14:26:00 EST, [...] Health assisted, active care Active coordination PADMINI Nancy Thompsonbharath [phone](Confirmed) Septic prepatellar bursitis of right Active knee(Confirmed) Septic prepatellar bursitis of left Active knee(Confirmed) Fatty infiltration of liver(Confirmed) Active Vital Signs Most recent to oldest 1 2 3 [Reference Range]: Weight 93.2 kg 93.2 kg (12/17/19 11:27 AM) (12/17/19 11:15 AM) Oxygen Saturation [94-100 %] 99 % 98 % 97 % (12/17/19 5:50 PM) (12/17/19 3:14 PM) (12/17/19 11:15 AM) Pulse Rate [55-90 bpm] 78 bpm 89 bpm 100 bpm (12/17/19 5:50 PM) (12/17/19 3:14 PM) *H* (12/17/19 11:15 AM ) Blood Pressure [90-138/55-84 mm 128/76 mm Hg 109/64 mm Hg 121/86 mm Hg Hg] (12/17/19 5:50 PM) (12/17/19 3:14 PM) (12/17/19 11:15 AM) Respiratory Rate [16-30 br/min] 18 br/min 16 br/min 20 br/min (12/17/19 5:50 PM) (12/17/19 3:59 PM) (12/17/19 3:29 P M) Temperature [96.8-100.4 DegF] 97.8 DegF 98.0 DegF 98 .1 DegF (12/17/19 5:50 PM) (12/17/19 3:14 PM) (12/17/19 11:15 AM) Mode of Delivery (Oxygen) Room air Room air Room a ir (12/17/19 5:50 PM) (12/17/19 3:14 PM) (12/17/19 11:15 AM) Blood pressure sites Arm, left Arm, left Arm, right (12/17/19 5:50 PM) (12/17/19 3:14 PM) (12/17/19 11:15 AM) Temperature Route Oral Oral Oral (12/17/19 5:50 PM) (12/17/19 3:14 PM) (12/17/19 11:15 AM) Dry Weight 93.2 kg 93.2 kg (12/17/19 11:27 AM) (12/17/19 11:15 AM) Social History Social History Type Response Smoking Status Former smoker; Other: Quit 2 015; entered on: 09/10/17 Sex
--- OUTSIDE RECORDS SUMMARY | 2022-08-20 22:47 | XMS_ITS | Continuity of Care Document ---
:1970 Author Organization [facility] Address [address] [place] [address]- Care Team Providers Name Role Phone Dawna Hernandez MD Primary Care Physician Encounter [facility] Date(s): 05/23/21 - 06/25/[address] [address] Attending Physician: Not on Staff, [...] 04/30/2010:59:00 EDT, Aerosol, Route to Pharmacy Electronically, [id number], [facility]/pharmacy #[id number], 165, cm, 04/30/20 10:31:00 [...] Refills, Maintenance, 01/20/21 16:26:00EDT, Tablet, [facility]/pharmacy #[id number], 164, cm, 01/20/21 15:43:00 [...] tableta en la manana y noche x3ds. [place] katy tableta en la manana y tarde y antes de acostarse., # 90 capsule, Refills 1, Tot. Refills 1, Maintenan... Start Date: 01/18/21 Status: Orderedlidocaine 5% topical film 1 patch, Topically, Daily, PRN Pain , Moderate, # 10 patch, 0 Refills, Maintenance, 04/26/21 10:38:00 EDT, Patch, [facility], Partial fill upon patient request if the prescription is for a schedule II opioid drug., 1 patch Topically Daily,PRN:... Start Date: 04/26/21 Status: Orderedomeprazole 20 mg oral enteric coated capsule 1 capsule = 20 mg, By Mouth, Daily, # 30 capsule, 1 Refills, Maintenance, 12/14/20 10:57:00 EST, [facility]/pharmacy #[id number], Partial fill upon patient [...] 16:26:00 EDT, Route to Pharmacy Electronically, [facility]/pharmacy #[id number], Partial fill upon patient [...] EDT, Route to Pharmacy Electronically, [facility]/pharmacy #1708, Partial fill upon patient request if the [...] term, active care Active coordination PADMINI Mata [phone](Confirmed) Fatty infiltration of liver(Confirmed) Active Tubular adenoma of colon(Confirmed) Active Social History Social History Type Response Smoking Status Former smoker; Other: Quit 2 015; entered on: 09/10/17 Sex
--- OUTSIDE RECORDS SUMMARY | 2022-08-20 22:47 | XMS_ITS | Continuity of Care Document ---
:1970 Author Organization [facility] Address [address] [place] [address]- Care Team Providers Name Role Phone Dawna Hernandez MD Primary Care Physician Encounter [facility] ACCT R [id number] Date(s): 08/19/21 - 09/24/[address] [address] Attending Physician: Not on Staff, Attending MD [...] 04/30/2010:59:00 EDT, Aerosol, Route to Pharmacy Electronically, [id number], [facility]/pharmacy #[id number], 165, cm, 04/30/20 10:31:00 EDT, [...] tableta en la manana y noche x3ds. [place] katy tableta en la manana y tarde y antes de acostarse., # 270 capsule, Refills 3, Tot. Refills 3, Maintena... Start Date: 08/09/21 Status: Orderedlidocaine 5% topical film 1 patch, Topically, Daily, PRN Pain , Moderate, # 10 patch, 0 Refills, Maintenance, 04/26/21 10:38:00 EDT, Patch, [facility], Partial fill upon patient request if the prescription is for a schedule II opioid drug., 1 patch Topically Daily,PRN:... Start Date: 04/26/21 Status: Orderedomeprazole 20 mg oral enteric coated capsule 1 capsule = 20 mg, By Mouth, Daily, # 30 capsule, 1 Refills, Maintenance, 12/14/20 10:57:00 EST, [facility]/pharmacy #[id number], Partial fill upon patient request [...] Acute 09/29/21 17:44:00 EST, 09/15/21 17:44:00 EST, [facility]/pharmacy #[id number], Partial fill upon patient request [...] Instructions ReplaceRequired Details, Route to Pharmacy Electronically, [id number], 165, cm, 06/02/21 12:44:00 EDT,Height, 92.8, kg, 05/19/21 23:20:00 EDT, Dry Weight Start Date: 08/02/21 Status: Orderedpropranolol 20 mg oral tablet 40 mg, 2, tablet, By Mouth, 2 times a day, # 120 tablet, Refills 0, Tot. Refills 0, Maintenance, 08/02/21 15:46:00 EDT, Route to Pharmacy Electronically, [facility]/pharmacy #[id number], Partial fill upon patient request [...] Maintenance,04/26/21 10:39:00 EDT, Route to Pharmacy Electronically, [facility]/pharmacy #[id number], Partial fill upon patient request [...] Health retirement, active care Active coordination PADMINI Nancysolomon Mata [phone](Confirmed) Fatty infiltration of liver(Confirmed) Active Tubular adenoma of colon(Confirmed) Active Social History Social History Type Response Smoking Status Former smoker; Other: Quit 2 015; entered on: 09/10/17 Sex
--- OUTSIDE RECORDS SUMMARY | 2022-08-20 22:47 | XMS_ITS | Continuity of Care Document ---
:1970 Author Organization [facility] Address [address] [place] [address]- Care Team Providers Name Role Phone Dawna Hernandez MD Primary Care Physician Encounter [facility] Date(s): 11/06/19 - 12/12/[address] [address]- [facility] Attending Physician: Anila Stock NP Admitting Physician: Anila Stock NP Referring Physician: Anila Stock NP Allergies, Adverse Reactions, Alerts Substance Reaction [...] Maintenance, 189:52:06, Aerosol, Route to Pharmacy Electronically, [id number], [facility] [address], Compound Start Date: 11/21/17 Status: OrderedAlcohol Wipes See Instructions, # 1 box, Maintenance, please use before testing three times a day: dx type 2 diabetes, 04/04/18 18:52:53 EDT, Compound Start Date: 04/04/18 Status: Orderedatorvastatin 20 mg oral tablet 1 tablet = 20 mg, By Mouth, Daily, # 30 tablet, 5 Refills, Maintenance, 10/29/19 9:49:00 EST, Tablet, [facility]/pharmacy #[id number], 165, cm, 10/24/19 [...] 10/29/19 9:49:00 EST, Route to Pharmacy Electronically, [facility]/pharmacy #[id number], 165, cm, 10/24/19 14:26:00EST, Height, 97.3, [...] 5 Refills, Maintenance, 11/20/19 12:00:00 EST, Tablet, [facility]/pharmacy #[id number], 165, cm, 11/20/19 11:16:00 EST, Height, 97.3, kg, 10/23/19 17:43:00 EST, Dry Weight Start Date: 11/20/19 Status: OrderedNaprosyn 500 mg oral tablet 1 tablet = 500 mg, By Mouth, 2 times a day, # 60 tablet, 1 Refills, Maintenance, 11/20/19 11:59:00 EST, Tablet, [facility]/pharmacy #[id number], 165, cm, 11/20/19 [...] 10/29/19 9:49:00 EST, Route to Pharmacy Electronically, [facility]/pharmacy #[id number], 165, cm, 10/24/19 [...] penitentiary, active care Active coordination PADMINI Mata [phone](Confirmed) Septic prepatellar bursitis of right Active knee(Confirmed) Septic prepatellar bursitis of left Active knee(Confirmed) Fatty infiltration of liver(Confirmed) Active Social History Social History Type Response Smoking Status Former smoker; Other: Quit 2 015; entered on: 09/10/17 Sex
--- OUTSIDE RECORDS SUMMARY | 2022-08-20 22:47 | XMS_ITS | Continuity of Care Document ---
:1970 Author Organization [facility] Address [address] [place] [address]- Care Team Providers Name Role Phone Daja MAYBERRY, Mirta Primary Care Physician Encounter [facility] Date(s): 12/29/21 - 01/28/[address] [address] Allergies, Adverse Reactions, Alerts Substance Reaction Severity Status lisinopril Angioedema Active Shrimp Active Immunizations Given and Recorded Vaccine Date Status Refusal Reason SARS-CoV-2 mRNA (koyrjkd-vwlt-mvlbx) vax 01/26/22 Given SARS-CoV-2 mRNA (fhwvian-bxex-gdhsj) vax 12/28/21 Given influenza virus vaccine, inactivated [...] 04/30/2010:59:00 EDT, Aerosol, Route to Pharmacy Electronically, [id number], [facility]/pharmacy #[id number], 165, cm, 04/30/20 10:31:00 EDT, [...] EDT, Tablet, [facility]/pharmacy #4471, RX in [place]., 166, cm, 01/26/22 9:18:00 EDT, Height, 93.1, [...] 12/25/21 14:04:00 EDT, Route to Pharmacy Electronically, [facility], Partial fill upon patient request if the prescription is for a sched... Start Date: 12/25/21 Status: Orderedlidocaine 5% topical film 1 patch, Topically, Daily, PRN Pain , Moderate, # 10 patch, 0 Refills, Maintenance, 04/26/21 10:38:00 EDT, Patch, [facility]/pharmacy #4541, Partial fill upon patient request if the prescription is for a schedule II opioid drug., 1 patch Topically Daily,PRN:... Start Date: 04/26/21 Status: Orderednaproxen 500 mg oral tablet 1 tablet, By Mouth, 2 times a day, for 30 days, # 60 tablet, 0 Refills, Physician Stop, [facility], 166, cm, 12/28/21 10:33:00 EDT, Height, 91.9, [...] Refills, Maintenance, 12/25/21 14:05:00 EDT, REC Powder, [facility], Partial fill upon patient request [...] tablet, Refills 5, Route to Pharmacy Electronically, [facility], 166, cm, 12/28/21 10:33:00 EDT, Height, 91.9, [...] EDT, Route to Pharmacy Electronically, [facility]/pharmacy #2921, Partial fill upon patient request if the [...] I(Confirmed) Active Obstructive sleep apnea(Confirmed) Active Health nursing home, active care [facility] [phone](Confirmed) Fatty infiltration of liver(Confirmed) Active Tubular adenoma of colon(Confirmed) Active Social History Social History Type Response Smoking Status Former smoker; Other: Quit 2 015; entered on: 09/10/17 Sex
--- OUTSIDE RECORDS SUMMARY | 2022-08-20 22:47 | XMS_ITS | Continuity of Care Document ---
:1970 Author Organization [facility] Address [address] [place] [address]- Care Team Providers Name Role Phone Daja MAYBERRY, Mirta Primary Care Physician Encounter [facility] Date(s): 12/09/21 - 01/08/[address] [email or web address] Allergies, Adverse Reactions, Alerts Substance Reaction Severity Status lisinopril Angioedema Active Shrimp Active Immunizations Given and Recorded Vaccine Date Status Refusal Reason SARS-CoV-2 mRNA (zwieayo-srbx-snegk) vax 12/28/21 Given influenza virus vaccine, inactivated [...] 04/30/2010:59:00 EDT, Aerosol, Route to Pharmacy Electronically, [id number], [id number], 165, cm, 04/30/20 10:31:00 EDT, [...] 0 Refills, Maintenance, 12/01/21 10:36:00 EST, Tablet, [facility], RX in [place]., 165, cm, 08/09/21 9:47:00 EDT, Height, 98.5, [...] 0 Refills, Maintenance, 04/26/21 10:38:00 EDT, Patch, [facility]/pharmacy #0091, Partial fill upon patient request if the prescription is for a schedule II opioid drug., 1 patch Topically Daily,PRN:... Start Date: 04/26/21 Status: Orderednaproxen 500 mg oral tablet 1 tablet = 500 mg, By Mouth, 2 times a day, for 30 days, # 60 tablet, 0 Refills, Acute 01/27/22 10:52:00 EDT, 12/28/21 10:52:00 EDT, Tablet, [facility]/pharmacy #4471, Partial fill upon patient request if theprescription is for a schedule II opioid drug., 1... Start Date: 12/28/21 Stop Date: 01/27/22 Status: Orderedomeprazole 20 mg oral enteric coated capsule 1 capsule = 20 mg, By Mouth, Daily, # 30 capsule, 1 Refills, Maintenance, 12/14/20 10:57:00 EST, [facility]/pharmacy #4471, Partial fill upon patient request if the prescription is for a schedule II opioid drug., 165, cm, 12/09/20 14:35:00 EST, Height, 90.5,... Start Date: 12/14/20 Stop Date: 02/12/21 Status: OrderedoxyCODONE 15 mg oral tablet 1 tablet = 15 mg, By Mouth, Every 6 hours, for 28 days, MassPAT checked, # 112 tablet, 0 Refills, Acute 01/11/22 9:46:00 EDT, 12/14/21 9:46:00 EST, [facility]/pharmacy #4471, Partial fill upon patient requestif the [...] Refills, Maintenance, 12/25/21 14:05:00 EDT, REC Powder, [facility], [...] tablet, Refills 5, Route to Pharmacy Electronically, [facility], 166, cm, 12/28/21 10:33:00 EDT, Height, 91.9, [...] Maintenance,04/26/21 10:39:00 EDT, Route to Pharmacy Electronically, [facility]/pharmacy #5189, Partial fill upon patient request if the [...] snf, active care Active coordination PADMINI Cruz [facility] [phone](Confirmed) Fatty infiltration of liver(Confirmed) Active Tubular adenoma of colon(Confirmed) Active Social History Social History Type Response Smoking Status Former smoker; Other: Quit 2 015; entered on: 09/10/17 Sex
--- OUTSIDE RECORDS SUMMARY | 2022-08-20 22:47 | XMS_ITS | Continuity of Care Document ---
:1970 Author Organization [facility] Address [address] [place] [address]- Care Team Providers Name Role Phone Dawna Hernandez MD Primary Care Physician Encounter [facility] Date(s): 05/05/22 - 06/04/[address] [address] Allergies, Adverse Reactions, Alerts Substance Reaction Severity Status lisinopril Angioedema Active Shrimp Active Immunizations Given and Recorded Vaccine Date Status Refusal Reason influenza virus vaccine, inactivated 02/15/22 Given influenza virus vaccine, inactivated 09/01/20 Given influenza virus vaccine, inactivated 09/15/19 Given influenza virus vaccine, inactivated 11/19/18 Given influenza virus vaccine, inactivated 09/10/17 Given influenza virus vaccine, inactivated 12/06/15 Given SARS-CoV-2 mRNA (kxaeszz-sjqi-cdlro) vax 01/26/22 Given SARS-CoV-2 mRNA (mmdkbze-mfvp-ozbzz) vax 12/28/21 Given tetanus/diphtheria/pertussis, acel(Tdap) 03/29/19 Given tetanus/diphtheria/pertussis, acel(Tdap) 09/10/17 Given pneumococcal 23-valent vaccine 04/08/18 Recorded pneumococcal 23-valent vaccine 04/22/17 Recorded pneumococcal 23-valent vaccine 12/21/12 Given Medications albuterol CFC free 90 mcg/inh inhalation aerosol 2, puffs, Inhalation, Every 6 hours, PRN, # 1 each, Refills 6, Tot. Refills 6, Maintenance, 04/30/2010:59:00 EDT, Aerosol, Route to Pharmacy Electronically, [id number], [facility], 165, cm, 04/30/20 10:31:00 EDT, Hei... Start Date: 04/30/20 Status: OrderedAlcohol Wipes See Instructions, # 1 box, Maintenance, please use before testing three times a day: dx type 2 diabetes, 04/04/18 18:52:53 EDT, Compound Start Date: 04/04/18 Status: Orderedatorvastatin 40 mg oral tablet 1 tablet = 40 mg, By Mouth, Daily, # 90 tablet, 3 Refills, Maintenance, 05/11/22 14:22:00 EDT, Tablet, [facility]/pharmacy #4471, Partial [...] tablet, 1 Refills, Maintenance, 04/05/22 7:53:00 EDT, [facility]/pharmacy #4471, 165, cm, 02/15/22 10:35:00 EDT, [...] Route to Pharmacy Electronically, [facility], Partial fill upon patient request if [...] # 60 tablet, 0 Refills, Physician Stop, [facility] [address], 165, cm, 05/05/22 17:06:00 EDT, Height, 92.6, kg, 05/05/22 17:06:00 EDT, Dry Weight Start Date: 05/12/22 Stop Date: 06/11/22 Status: OrderedoxyCODONE 15 mg oral tablet 1 tablet = 15 mg, By Mouth, Every 6 hours, for 28 days, MassPAT checked, # 112 tablet, 0 Refills, Acute 06/08/22 16:30:00 EDT, 05/11/22 16:30:00 EDT, [facility]/pharmacy #4471, Partial fill upon patient request if the prescription is for a schedule II opioid... Start Date: 05/11/22 Stop Date: 06/08/22 Status: OrderedPAP Supplies - Mask, Tubing, Filters, [...] tablet, Refills 5, Route to Pharmacy Electronically, [facility], 166, cm, 12/28/21 10:33:00 EDT, Height, 91.9, [...] I(Confirmed) Active Obstructive sleep apnea(Confirmed) Active Health senior living, active care Active coordination PADMINI Mata [phone](Confirmed) Fatty infiltration of liver(Confirmed) Active Tubular adenoma of colon(Confirmed) Active Social History Social History Type Response Smoking Status Former smoker; Other: Quit 2 015; entered on: 09/10/17 Sex
--- OUTSIDE RECORDS SUMMARY | 2022-08-20 22:47 | XMS_ITS | Continuity of Care Document ---
:1970 Author Organization [facility] Address [address] [place] [address]- Care Team Providers Name Role Phone Dawna Hernandez MD Primary Care Physician Encounter [facility] ACCT R [id number] Date(s): 05/20/21 - 07/06/[address] [address] Attending Physician: Paris Reeves MD Admitting Physician: Paris Reeves MD Referring Physician: Ashleigh Gifford DO Allergies, Adverse Reactions, Alerts Substance Reaction Severity [...] 04/30/2010:59:00 EDT, Aerosol, Route to Pharmacy Electronically, [id number], [facility]/pharmacy #4471, 165, cm, 07/17/20 10:31:00 EDT, Hei... Start Date: 04/30/20 Status: OrderedAlcohol Wipes See Instructions, # 1 box, Maintenance, please use before testing three times a day: dx type 2 diabetes, 04/04/18 18:52:53 EDT, Compound Start Date: 04/04/18 Status: Orderedatorvastatin 20 mg oral tablet 1 tablet = 20 mg, By Mouth, Daily at bedtime, # 30 tablet, 5 Refills, Maintenance, 01/20/21 16:26:00EDT, Tablet, [facility]/pharmacy #4471, 164, cm, 01/20/21 15:43:00 EDT, [...] tableta en la manana y noche x3ds. [place] katy tableta en la manana y tarde y antes de acostarse., # 90 capsule, Refills 1, Tot. Refills 1, Maintenan... Start Date: 01/18/21 Status: Orderedlidocaine 5% topical film 1 patch, Topically, Daily, PRN Pain , Moderate, # 10 patch, 0 Refills, Maintenance, 04/26/21 10:38:00 EDT, Patch, [facility], Partial fill upon patient request if the prescription is for a schedule II opioid drug., 1 patch Topically Daily,PRN:... Start Date: 04/26/21 Status: Orderedomeprazole 20 mg oral enteric coated capsule 1 capsule = 20 mg, By Mouth, Daily, # 30 capsule, 1 Refills, Maintenance, 12/14/20 10:57:00 EST, [facility]/pharmacy #4471, Partial fill upon patient request [...] Acute 07/11/21 16:54:00 EDT, 06/27/21 16:54:00 EDT, [facility]/pharmacy #4471, Partial fill upon patient request [...] 05/20/21 16:26:00 EDT, Route to Pharmacy Electronically, [facility]/pharmacy #4471, Partial fill upon patient request [...] Maintenance,04/26/21 10:39:00 EDT, Route to Pharmacy Electronically, [facility]/pharmacy #3707, Partial fill upon patient request if the [...] retirement, active care Active coordination PADMINI Mata [phone](Confirmed) Fatty infiltration of liver(Confirmed) Active Tubular adenoma of colon(Confirmed) Active Social History Social History Type Response Smoking Status Former smoker; Other: Quit 2 015; entered on: 09/10/17 Sex
--- OUTSIDE RECORDS SUMMARY | 2022-08-20 22:47 | XMS_ITS | Continuity of Care Document ---
:1970 Author Organization [facility] Address [address] [place] [id number]- Care Team Providers Name Role Phone Mary RAWLS, Dawna Primary Care Physician Encounter [facility] Date(s): 04/21/21 - 05/21/[address] [address] Attending Physician: Lori Patton Admitting Physician: Admtr, Lori Referring Physician: Admtr, Ar8 Referring Physician: Jonna [...] 04/30/2010:59:00 EDT, Aerosol, Route to Pharmacy Electronically, [id number], [facility]/pharmacy #[id number], 165, cm, 04/30/20 10:31:00 EDT, Hei... [...] tableta en la manana y noche x3ds. Lydia katy tableta en la manana y tarde y antes de acostarse., # 90 capsule, Refills 1, Tot. Refills 1, Maintenan... Start Date: 01/18/21 Status: Orderedlidocaine 5% topical film 1 patch, Topically, Daily, PRN Pain , Moderate, # 10 patch, 0 Refills, Maintenance, 04/26/21 10:38:00 EDT, Patch, [facility]/pharmacy #[id number], Partial fill upon patient request if the prescription is for a schedule II opioid drug., 1 patch Topically Daily,PRN:... Start Date: 04/26/21 Status: Orderedomeprazole 20 mg oral enteric coated capsule 1 capsule = 20 mg, By Mouth, Daily, # 30 capsule, 1 Refills, Maintenance, 12/14/20 10:57:00 EST, [facility]/pharmacy #[id number], Partial fill upon patient request if [...] 05/20/21 16:26:00 EDT, Route to Pharmacy Electronically, [facility]/pharmacy #[id number], Partial fill upon patient request if [...] Route to Pharmacy Electronically, [facility]/pharmacy #[id number], Partial fill upon patient request if the [...] nursing, active care Active coordination PADMINI Mata [phone](Confirmed) Fatty infiltration of liver(Confirmed) Active Tubular adenoma of colon(Confirmed) Active Social History Social History Type Response Smoking Status Former smoker; Other: Quit 2 015; entered on: 09/10/17 Sex
--- OUTSIDE RECORDS SUMMARY | 2022-08-20 22:47 | XMS_ITS | Continuity of Care Document ---
:1970 Author Organization [facility] Address [address] [place] [address]- Care Team Providers Name Role Phone Dawna Hernandez MD Primary Care Physician Encounter [facility] Date(s): 08/13/21 - 08/13/[address] [id number]- Discharge Disposition: A-D/C Home Attending Physician: Ángel Aquino MD Admitting Physician: Ángel Aquino MD Referring Physician: Not on Staff, Referring [...] 04/30/2010:59:00 EDT, Aerosol, Route to Pharmacy Electronically, [id number], [facility]/pharmacy #[id number], 165, cm, 04/30/20 10:31:00 [...] tablet, 5 Refills, Maintenance, 01/20/21 16:26:00EDT, Tablet, [facility]/pharmacy #[id number], 164, cm, 01/20/21 15:43:00 [...] lenght of... Start Date: 09/10/17 Status: Orderedcyclobenzaprine 5 mg oral tablet 1 tablet = 5 mg, By Mouth, 3 times a day, for 7 days, # 21 tablet, 0 Refills, Acute 08/20/21 16:50:00 EDT, 08/13/21 16:50:00 EDT, Tablet, [facility]/pharmacy #[id number], Partial fill upon patient request if the prescription is for a schedule II opioid drug., 165,... Start Date: 08/13/21 Stop Date: 08/20/21 Status: OrderedFlexeril 10 mg oral tablet 10 mg, Tablet, By Mouth, Once, STAT, 08/13/21 10:51:00 EDT, Stop date 08/13/21 10:51:00 EDT Start Date: 08/13/21 Stop Date: 08/13/21 Status: CompletedFLUoxetine 20 mg oral capsule 60 mg, 3, [...] en la manana y noche x3ds. [place] katy tableta en la manana y tarde y antes de acostarse., # 270 capsule, Refills 3, Tot. Refills 3, Maintena... Start Date: 08/09/21 Status: Orderedlidocaine 5% topical film 1 patch, Topically, Daily, PRN Pain , Moderate, # 10 patch, 0 Refills, Maintenance, 04/26/21 10:38:00 EDT, Patch, [facility]/pharmacy #[id number], Partial fill upon patient request if the prescription is for a schedule II opioid drug., 1 patch Topically Daily,PRN:... Start Date: 04/26/21 Status: Orderednaproxen 375 mg (as sodium) oral tablet, extended release 2 tablet = 750 mg, By Mouth, Daily, for 14 days, # 28 tablet, 0 Refills, Acute 08/23/21 10:05:00 EST, 08/09/21 10:05:00 EDT, ER Tablet, [facility]/pharmacy #[id number], Partial fill upon patient request if the prescription is for a schedule II opioid drug., 165, c... Start Date: 08/09/21 Stop Date: 08/23/21 Status: Orderedomeprazole 20 mg oral enteric coated [...] 6 hours, PRN as needed for pain, I am aware pt is on 15 mg BID chronically by Dr. Hernandez, [facility] reviewed. Adding a third dose for limited time., # 7 tablet, 0 Refills, Acute 08/16/21 10:05:00 EDT, 08/09/21 10:03:0... Start Date: 08/09/21 Stop Date: 08/16/21 Status: OrderedPAP Supplies - Mask, Tubing, Filters, [...] II opioid drug. Start Date: 10/11/20 Status: OrderedpredniSONE 20 mg oral tablet 3 tablet = 60 mg, By Mouth, Daily, for 5 days, # 15 tablet, 0 Refills, Acute 08/18/21 16:50:00 EDT, 08/13/21 16:50:00 EDT, Tablet, [facility]/pharmacy #[id number], Partial fill upon patient request if the prescription is for a schedule II opioid drug., 165, cm, 10... Start Date: 08/13/21 Stop Date: 08/18/21 Status: Orderedpropranolol 20 mg oral tablet See Instructions, TAKE 2 TABLETS BY MOUTH TWICE A DAY, # 120 tablet, Refills 0, Instructions ReplaceRequired Details, Route to Pharmacy Electronically, [facility] ST[id number], 165, cm, 06/02/21 12:44:00 EDT,Height, 92.8, kg, 05/19/21 23:20:00 EDT, Dry Weight Start Date: 08/02/21 Status: Orderedpropranolol 20 mg oral tablet 40 mg, 2, tablet, By Mouth, 2 times a day, # 120 tablet, Refills 0, Tot. Refills 0, Maintenance, 08/02/21 15:46:00 EDT, Route to Pharmacy Electronically, [facility]/pharmacy #[id number], Partial fill upon patient [...] Maintenance,04/26/21 10:39:00 EDT, Route to Pharmacy Electronically, [facility]/pharmacy #[id number], Partial fill upon patient request if the [...] Health fpc, active care Active coordination [facility] [phone](Confirmed) Fatty infiltration of liver(Confirmed) Active Tubular adenoma of colon(Confirmed) Active Vital Signs Most recent to oldest 1 2 3 [Reference Range]: Weight 98.5 kg (08/13/21 8:29 AM) Oxygen Saturation [94-100 94 % 94 % 97 % %] (08/13/21 5:06 PM) (08/13/21 2:43 PM) (08/13/21 12:06 PM) Pulse Rate [55-90 bpm] 94 bpm 109 bpm 96 bpm *H* *H* *H* (08/13/21 5:06 PM) (08/13/21 2:43 PM) (08/13/21 12:06 PM) Blood Pressure 125/72 mm Hg 122/88 mm Hg 111/67 mm Hg [90-138/55-84 mm Hg] (08/13/21 5:06 PM) (08/13/21 2:43 PM) (07/17 12:06 PM) Respiratory Rate [16-30 18 br/min 18 br/min 16 br/mi n br/min] (08/13/21 5:06 PM) (08/13/21 2:43 PM) (08/13/21 1:06 PM) Temperature [96.8-100.4 97.8 DegF 98.2 DegF 97.6 Deg F DegF] (08/13/21 5:06 PM) (08/13/21 2:43 PM) (08/13/21 12:06 PM) Mode of Delivery (Oxygen) Room air Room air Room a ir (08/13/21 5:06 PM) (08/13/21 2:43 PM) (08/13/21 12:06 PM) Blood pressure sites Arm, right Arm, right Arm, right (08/13/21 5:06 PM) (08/13/21 2:43 PM) (08/13/21 12:06 PM) Temperature Route Oral Oral Oral (08/13/21 5:06 PM) (08/13/21 2:43 PM) (08/13/21 12:06 PM) Dry Weight 98.5 kg (08/13/21 8:29 AM) Weight Obtained Via Standing scale (08/13/21 8:29 AM) Dry Weight Obtained Via Standing scale (10/30/21 8:29 AM) Social History Social History Type Response Smoking Status Former smoker; Other: Quit 2 015; entered on: 09/10/17 Sex
--- OUTSIDE RECORDS SUMMARY | 2022-08-20 22:48 | XMS_ITS | Continuity of Care Document ---
:1970 Author Organization [facility] Address [address] [place] [address]- Care Team Providers Name Role Phone Dawna Hernandez MD Primary Care Physician Encounter [facility] Date(s): 06/29/20 - 07/29/[address] [address] [facility] Allergies, Adverse Reactions, Alerts Substance Reaction [...] 04/30/2010:59:00 EDT, Aerosol, Route to Pharmacy Electronically, [id number], [facility]/pharmacy #[id number], 165, cm, 04/30/20 [...] 06/20/20 14:06:00 EDT, Route to Pharmacy Electronically, [facility], 165, cm, 06/19/20 3:51:00 EDT, Height, 95.8, kg, 06/17/20 2:50:00 EDT, Dry Weight Start Date: 06/20/20 Status: Orderedatorvastatin 20 mg oral tablet 1 tablet = 20 mg, By Mouth, Daily, # 30 tablet, 5 Refills, Maintenance, 04/30/20 10:59:00 EDT, Tablet, [facility]/pharmacy #[id number], 165, cm, 04/30/20 [...] 5 Refills, Maintenance, 06/25/20 8:44:00 EDT, Tablet, [facility], 165, cm, 06/19/20 3:51:00 EDT, Height, 95.8, kg, 06/17/20 2:50:00 EDT, Dry Weight Start Date: 06/25/20 Status: OrderedHibiclens 4% soap 1 applicator, Topically, Daily, Please use to cleanse left knee daily when showering, # 960 mL, 0 Refills, Soft Stop, 06/20/20 14:06:00 EDT, [facility], 1 applicator Topically Daily,Instr:Please use to cleanse left knee daily when shower... Start Date: 06/20/20 Status: Orderedomeprazole 20 mg oral delayed release tablet 1 tablet = 20 mg, By Mouth, Daily, # 30 tablet, 2 Refills, Maintenance, 05/24/20 10:57:00 EDT, EC Tablet, [facility]/pharmacy #[id number], 165, cm, 05/06/20 10:29:00 EDT, Height, 95.8, kg, 04/19/20 14:48:00 EDT, Dry Weight Start Date: 05/24/20 Status: OrderedoxyCODONE 15 mg oral tablet 1 tablet = 15 mg, By Mouth, Every 6 hours, PRN as needed for pain, dx: M54.5 on agreement masspat checked do not fill til 07/29/20, # 28 tablet, 0 Refills, Maintenance, 07/29/20 16:55:00 EDT, Tablet, [facility]/pharmacy #[id number], Partial fill upon patient r... Start Date: 07/29/20 Stop Date: 08/05/20 Status: OrderedraNITIdine 75 mg oral tablet 1 tablet = 75 mg, By Mouth, Daily, # 28 tablet, 0 Refills, Maintenance, 04/30/20 10:58:00 EDT, Tablet, [facility]/pharmacy #[id number], 165, cm, 04/30/20 [...] retirement, active care Active coordination PADMINI Mata [phone](Confirmed) Fatty infiltration of liver(Confirmed) Active Social History Social History Type Response Smoking Status Former smoker; Other: Quit 2 015; entered on: 09/10/17 Sex
--- OUTSIDE RECORDS SUMMARY | 2022-08-20 22:48 | XMS_ITS | Continuity of Care Document ---
:1970 Author Organization [facility] Address [address] [place] [address]- Care Team Providers Name Role Phone Daja MAYBERRY, Mirta Primary Care Physician Encounter [facility] Date(s): 12/27/21 - 12/28/[address] [address]- Discharge Disposition: A-D/C Home Attending Physician: Jeannette Ballesteros MD Admitting Physician: Jeannette Ballesteros MD Referring Physician: Not on Staff, Referring MD Allergies, Adverse Reactions, Alerts Substance Reaction Severity Status lisinopril Angioedema Active Shrimp Active Immunizations Given and Recorded Vaccine Date Status Refusal Reason SARS-CoV-2 mRNA (gesiiib-bcbf-czaqj) vax 12/28/21 Given influenza virus vaccine, inactivated [...] 12/25/21 14:28:00 EDT, Route to Pharmacy Electronically, [facility], Partial fill upon patient request if the... Start Date: 12/25/21 Stop Date: 01/08/22 Status: OrderedAerochamber See Instructions, # 1 each, Maintenance, as instructed, 11/21/17 9:52:57, Compound Start Date: 11/21/17 Status: Orderedalbuterol CFC free 90 mcg/inh inhalation aerosol 2, puffs, Inhalation, Every 6 hours, PRN, # 1 each, Refills 6, Tot. Refills 6, Maintenance, 04/30/2010:59:00 EDT, Aerosol, Route to Pharmacy Electronically, [id number], [facility]/pharmacy #[id number], 165, cm, 04/30/20 10:31:00 EDT, [...] tablet, 5 Refills, Maintenance, 01/20/21 16:26:00EDT, Tablet, [facility]/pharmacy #[id number], 164, cm, 01/20/21 15:43:00 EDT, [...] 0 Refills, Maintenance, 12/01/21 10:36:00 EST, Tablet, [facility]/pharmacy #[id number], RX in [place]., 165, cm, 08/09/21 9:47:00 EDT, Height, 98.5, [...] 01/01/22 14:06:00 EDT, 12/26/21 14:06:00 EDT, Capsule, [facility], Partial fill upon patient request [...] 12/25/21 14:04:00 EDT, Route to Pharmacy Electronically, [facility], Partial fill upon patient request if the prescription is for a sched... Start Date: 12/25/21 Status: Orderedlidocaine 5% topical film 1 patch, Topically, Daily, PRN Pain , Moderate, # 10 patch, 0 Refills, Maintenance, 04/26/21 10:38:00 EDT, Patch, [facility]/pharmacy #[id number], Partial fill upon patient request if the prescription is for a schedule II opioid drug., 1 patch Topically Daily,PRN:... Start Date: 04/26/21 Status: OrderedMorPHINE Inj 4 mg, Injection, IV Push Slowly, Every 5 minutes for 3 doses/times, PRN for Pain , Moderate, and SBPgreater than 100, Routine, 12/27/21 22:32:00 EDT, Stop date Limited # of times Start Date: 12/27/21 Stop Date: 12/28/21 Status: Discontinuednaproxen 500 mg oral tablet 1 tablet = 500 mg, By Mouth, 2 times a day, for 30 days, # 60 tablet, 0 Refills, Acute 01/27/22 10:52:00 EDT, 12/28/21 10:52:00 EDT, Tablet, [id number], Partial fill upon [...] Acute 01/11/22 9:46:00 EDT, 12/14/21 9:46:00 EST, [facility]/pharmacy #[id number], Partial fill upon patient requestif the [...] Refills, Maintenance, 12/25/21 14:05:00 EDT, REC Powder, [facility], Partial fill upon patient request if [...] 11/14/21 8:40:00 EST, Route to Pharmacy Electronically, [facility]/pharmacy #[id number], Partial fill upon patient request [...] Maintenance,04/26/21 10:39:00 EDT, Route to Pharmacy Electronically, [facility]/pharmacy #[id number], Partial fill upon patient request if the [...] mcc, active care Active coordination PADMINI Mata [phone](Confirmed) Fatty infiltration of liver(Confirmed) Active Tubular adenoma of colon(Confirmed) Active Vital Signs Most recent to oldest 1 2 3 [Reference Range]: Oxygen Saturation [94-100 %] 100 % 98 % 98 % (12/28/21 12:30 AM) (12/27/21 7:09 PM) (12/27/21 4: 51 PM) Pulse Rate [55-90 bpm] 80 bpm 78 bpm 99 bpm (12/28/21 12:30 AM) (12/27/21 7:09 PM) *H* (12/27/21 4:51 PM ) Blood Pressure [90-138/55-84 120/72 mm Hg 130/71 mm Hg 129 /72 mm Hg mm Hg] (12/28/21 12:30 AM) (12/27/21 7:09 PM) (12/27/21 4: 51 PM) Respiratory Rate [16-30 18 br/min 26 br/min 14 br/mi n br/min] (12/28/21 12:30 AM) (12/27/21 10:15 PM) *L* (12/27/21 7:09 PM ) Temperature [96.8-100.4 DegF] 98.8 DegF 97.9 DegF (12/27/21 7:09 PM) (12/27/21 3:45 PM) Mode of Delivery (Oxygen) Room air Room air Room a ir (12/28/21 12:30 AM) (12/27/21 7:09 PM) (12/27/21 4: 51 PM) Blood pressure sites Arm, right Arm, right Arm, right (12/27/21 7:09 PM) (12/27/21 4:51 PM) (12/27/21 3:4 5 PM) Temperature Route Oral Oral (12/27/21 7:09 PM) (12/27/21 3:45 PM) Social History Social History Type Response Smoking Status Former smoker; Other: Quit 2 015; entered on: 09/10/17 Sex
--- OUTSIDE RECORDS SUMMARY | 2022-08-20 22:48 | XMS_ITS | Continuity of Care Document ---
:1970 Author Organization [facility] Address [address] [place] [address]- Care Team Providers Name Role Phone Mary RAWLS, Dawna Primary Care Physician Encounter [facility] Date(s): 05/04/21 - 05/05/[address] [address] Discharge Disposition: A-D/C Home Attending Physician: Mary Lou Swanson MD Admitting Physician: Mary Fine MD Referring [...] 04/30/2010:59:00 EDT, Aerosol, Route to Pharmacy Electronically, [id number], [facility]/pharmacy #[id number], 165, cm, 07/17/20 10:31:00 EDT, [...] tablet, 5 Refills, Maintenance, 01/20/21 16:26:00EDT, Tablet, [facility]/pharmacy #[id number], 164, cm, 01/20/21 [...] Acute 05/22/21 10:41:00 EDT, 04/26/21 10:41:00 EDT, [facility]/pharmacy #[id number], Partial fill upon [...] oral capsule 300 mg, Capsule, By Mouth, 05/05/21 9:00:00 EDT Start Date: 05/05/21 Stop Date: 05/05/21 Status: Completedgabapentin 300 mg oral capsule 300 mg, 1, capsule, By Mouth, 3 times a day, [place] con katy tableta en la noche x3ds. Despues, tomeuna tableta en la manana y noche x3ds. [place] katy tableta en la manana y tarde [...] 05/12/21 Status: OrderedoxyCODONE 5 mg oral tablet 15 mg, Tablet, By Mouth, 05/05/21 9:00:00 EDT Start Date: 05/05/21 Stop Date: 05/05/21 Status: CompletedPAP Supplies - Mask, Tubing, Filters, Head Gear, [...] Maintenance,04/26/21 10:39:00 EDT, Route to Pharmacy Electronically, [facility]/pharmacy #[id number], Partial fill upon patient request if the [...] 9:00:00 EDT, 05/05/21 9:22:00 EDT, Tablet, [id number], Partial fill upon patient request if the [...] Health intermediate, active care Active coordination PADMINI Nancysolomon Mata [phone](Confirmed) Fatty infiltration of liver(Confirmed) Active Tubular adenoma of colon(Confirmed) Active Results Orders for Microbiology Reports Name Date Blood Culture 05/04/21 Blood Culture #2 05/04/21 Urine Culture (URINE CULTURE) 05/04/21 Microbiology Reports TEST:Blood Culture, Second Order STATUS:Unauthenticated BODY SITE: SOURCE:Blood COLLECTED DATE/TIME:05/04/21 6:53 AMBlood Culture, Second Order SPECIMEN DESCRIPTION : BLOOD SPECIAL REQUESTS : NONE CULTURE : NO GROWTH AFTER 24 HOURS REPORT STATUS : PRELIMINARY REPORT TEST:Blood Culture STATUS:Unauthenticated BODY SITE: SOURCE:Blood COLLECTED DATE/TIME:05/04/21 6:50 AMBlood Culture SPECIMEN DESCRIPTION : BLOOD SPECIAL REQUESTS : NONE CULTURE : NO GROWTH AFTER 24 HOURS REPORT STATUS : PRELIMINARY REPORT TEST:Urine Culture STATUS:Auth (Verified) BODY SITE: SOURCE:URINE COLLECTED DATE/TIME:05/04/21 2:55 AMUrine Culture SPECIMEN DESCRIPTION : URINE SPECIAL REQUESTS : NONE CULTURE : <10,000 COL/ML REPORT STATUS : FINAL 05/05/2021 Vital Signs Most recent to oldest 1 2 3 [Reference Range]: Height 165 cm 165 cm 165 cm (05/05/21 4:53 AM) (05/04/21 9:01 PM) (05/04/21 2:2 1 PM) Weight 92.8 kg (05/04/21 2:21 PM) Oxygen Saturation [94-100 %] 98 % 97 % 97 % (05/05/21 8:00 AM) (05/05/21 4:53 AM) (05/04/21 9:0 1 PM) Pulse Rate [55-90 bpm] 65 bpm 67 bpm 71 bpm (05/05/21 8:00 AM) (05/05/21 4:53 AM) (05/04/21 9:0 1 PM) Body Mass Index [18.5-24.99] 34.09 *>HHI* (05/04/21 2:21 PM) Blood Pressure [90-138/55-84 mm 107/75 mm Hg 110/70 mm Hg 117/58 mm Hg Hg] (05/05/21 8:00 AM) (05/05/21 4:53 AM) (05/04/21 9:0 1 PM) Respiratory Rate [16-30 br/min] 16 br/min 16 br/min 17 br/min (05/05/21 9:05 AM) (05/05/21 9:04 AM) (05/05/21 8:0 0 AM) Temperature [96.8-100.4 DegF] 98.1 DegF 98.0 DegF 98 .1 DegF (05/05/21 8:00 AM) (05/05/21 4:53 AM) (05/04/21 9:0 1 PM) Mode of Delivery (Oxygen) Room air Room air Room a ir (05/05/21 8:00 AM) (05/05/21 4:53 AM) (05/04/21 9:0 1 PM) Blood pressure sites Arm, right Arm, right Arm, right (05/05/21 8:00 AM) (05/05/21 4:53 AM) (05/04/21 9:0 1 PM) Temperature Route Oral Oral Oral (05/05/21 8:00 AM) (05/05/21 4:53 AM) (05/04/21 9:0 1 PM) Dry Weight 92.8 kg (05/04/21 2:21 PM) Social History Social History Type Response Smoking Status Former smoker; Other: Quit 2 015; entered on: 09/10/17 Sex
--- OUTSIDE RECORDS SUMMARY | 2022-08-20 22:48 | XMS_ITS | Continuity of Care Document ---
:1970 Author Organization [facility] Address [address] [place] [address]- Care Team Providers Name Role Phone Mirta Farnsworth NP Primary Care Physician Encounter [facility] Date(s): 01/06/22 - 02/05/[address] [address]- Encounter Diagnosis Low back pain (Discharge Diagnosis) - 01/06/22 Loss of appetite (Discharge Diagnosis) - 01/06/22 Attending Physician: Not on Staff, Attending MD Referring Physician: Mirta Farnsworth NP Allergies, Adverse Reactions, Alerts Substance Reaction Severity Status lisinopril Angioedema Active Shrimp Active Immunizations Given and Recorded Vaccine Date Status Refusal Reason SARS-CoV-2 mRNA (kincrlf-kshj-bylgu) vax 01/26/22 Given SARS-CoV-2 mRNA (dfojpje-qdrw-pwztp) vax 12/28/21 Given influenza virus vaccine, inactivated [...] 04/30/2010:59:00 EDT, Aerosol, Route to Pharmacy Electronically, [id number], [facility]/pharmacy #[id number], 165, cm, 04/30/20 10:31:00 EDT, [...] tablet, 5 Refills, Maintenance, 01/20/21 16:26:00EDT, Tablet, [facility]/pharmacy #[id number], 164, cm, 01/20/21 15:43:00 EDT, [...] 0 Refills, Maintenance, 01/26/22 15:54:00 EDT, Tablet, [facility]/pharmacy #[id number], RX in [place]anian., 166, cm, 01/26/22 9:18:00 EDT, Height, 93.1, [...] 12/25/21 14:04:00 EDT, Route to Pharmacy Electronically, [facility], Partial fill upon patient request if the prescription is for a sched... Start Date: 12/25/21 Status: Orderedlidocaine 5% topical film 1 patch, Topically, Daily, PRN Pain , Moderate, # 10 patch, 0 Refills, Maintenance, 04/26/21 10:38:00 EDT, Patch, [facility]/pharmacy #[id number], Partial fill upon patient request if the prescription is for a schedule II opioid drug., 1 patch Topically Daily,PRN:... Start Date: 04/26/21 Status: Orderednaproxen 500 mg oral tablet 1 tablet, By Mouth, 2 times a day, for 30 days, # 60 tablet, 0 Refills, Physician Stop, [id number], 166, cm, 12/28/21 10:33:00 EDT, Height, 91.9, [...] Acute 02/23/22 15:56:00 EDT, 01/26/22 15:56:00 EDT, [id number], Partial fill upon patient [...] Refills, Maintenance, 12/25/21 14:05:00 EDT, REC Powder, [facility], Partial fill upon patient [...] tablet, Refills 5, Route to Pharmacy Electronically, [facility], 166, cm, 12/28/21 10:33:00 EDT, Height, 91.9, [...] Maintenance,04/26/21 10:39:00 EDT, Route to Pharmacy Electronically, [facility]/pharmacy #[id number], Partial fill upon patient request if [...] living, active care Active coordination [facility] [phone](Confirmed) Fatty infiltration of liver(Confirmed) Active Tubular adenoma of colon(Confirmed) Active Diagnosis Diagnosis Type Effective Dates Health Status Clinical In formant Service Low back pain Discharge 01/06/22 Diagnosis Loss of appetite Discharge 01/06/22 Diagnosis Social History Social History Type Response Smoking Status Former smoker; Other: Quit 2 015; entered on: 09/10/17 Sex
--- OUTSIDE RECORDS SUMMARY | 2022-08-20 22:48 | XMS_ITS | Continuity of Care Document ---
:1970 Author Organization [facility] Address [address] [place] [address]- Care Team Providers Name Role Phone Dawna Hernandez MD Primary Care Physician Encounter [facility] Date(s): 10/22/20 - 11/21/[address] [id number] Allergies, Adverse Reactions, Alerts Substance [...] 04/30/2010:59:00 EDT, Aerosol, Route to Pharmacy Electronically, [id number], [id number], 165, cm, 04/30/20 10:31:00 EDT, [...] agreement masspat checked do not fill til 10/22/20, # 56 tablet, 0 Refills, Maintenance, 10/22/20 19:06:00 EST, Tablet, [facility]/pharmacy #[id number], Partial fill upon patient req... Start Date: 10/22/20 Stop Date: 11/05/20 Status: Orderedpantoprazole 40 mg oral delayed release [...] custodial, active care Active coordination PADMINI Cruz [facility] [phone](Confirmed) Fatty infiltration of liver(Confirmed) Active Tubular adenoma of colon(Confirmed) Active Social History Social History Type Response Smoking Status Former smoker; Other: Quit 2 015; entered on: 09/10/17 Sex
--- OUTSIDE RECORDS SUMMARY | 2022-08-20 22:48 | XMS_ITS | Continuity of Care Document ---
:1970 Author Organization [facility] Address [address] [place] [address]- Care Team Providers Name Role Phone Dawna Hernandez MD Primary Care Physician Encounter [facility] Date(s): 05/05/22 - 05/05/[address] [address] Discharge Disposition: A-D/C Home Attending Physician: Tao Storey MD Admitting Physician: Tao Storey MD Referring Physician: Deric Gillis MD Allergies, Adverse Reactions, Alerts Substance Reaction Severity Status lisinopril Angioedema Active Shrimp Active Immunizations Given and Recorded Vaccine Date Status Refusal Reason influenza virus vaccine, inactivated 02/15/22 Given influenza virus vaccine, inactivated 09/01/20 Given influenza virus vaccine, inactivated 09/15/19 Given influenza virus vaccine, inactivated 11/19/18 Given influenza virus vaccine, inactivated 09/10/17 Given influenza virus vaccine, inactivated 12/06/15 Given SARS-CoV-2 mRNA (jmuphyh-kaju-glcny) vax 01/26/22 Given SARS-CoV-2 mRNA (dqfyerw-ebae-jomsk) vax 12/28/21 Given tetanus/diphtheria/pertussis, acel(Tdap) 03/29/19 Given tetanus/diphtheria/pertussis, acel(Tdap) 09/10/17 Given pneumococcal 23-valent vaccine 04/08/18 Recorded pneumococcal 23-valent vaccine 04/22/17 Recorded pneumococcal 23-valent vaccine 12/21/12 Given Medications albuterol CFC free 90 mcg/inh inhalation aerosol 2, puffs, Inhalation, Every 6 hours, PRN, # 1 each, Refills 6, Tot. Refills 6, Maintenance, 04/30/2010:59:00 EDT, Aerosol, Route to Pharmacy Electronically, [id number], [facility]/pharmacy #[id number], 165, cm, 04/30/20 [...] tablet, 5 Refills, Maintenance, 01/20/21 16:26:00EDT, Tablet, [facility]/pharmacy #[id number], 164, cm, 01/20/21 15:43:00 [...] tablet, 1 Refills, Maintenance, 04/05/22 7:53:00 EDT, [facility]/pharmacy #[id number], 165, cm, 02/15/22 10:35:00 [...] 12/25/21 14:04:00 EDT, Route to Pharmacy Electronically, [facility], Partial fill upon patient [...] tablet, Refills 5, Route to Pharmacy Electronically, [facility], 166, cm, 12/28/21 10:33:00 EDT, Height, 91.9, [...] I(Confirmed) Active Obstructive sleep apnea(Confirmed) Active Health prison, active care Active coordination PADMINI Nancy Mata [phone](Confirmed) Fatty infiltration of liver(Confirmed) Active Tubular adenoma of colon(Confirmed) Active Results Radiology Reports Exam Date Time Procedure Performing Provider Status 05/05/22 12:40 PM Chest 2 Views Frontal and Lat Bonny Watkins; July (Verified) Notes:(Chest 2 Views Frontal and Lat) Reason For Exam: Chest Pain;Other:RESULT: Chest 2 Views Frontal and Lat Chest 2 Views Frontal and Lat INDICATION: Syncope with incontinence. Hx of Present Illness: Passed out today, woke covered in pee and Poop with a bump on my head and chest and lower abd pain ; Chest Pain; Clinical Question(s): Other: COMPARISON: None. FINDINGS: LINES AND TUBES: None. LUNGS AND PLEURA: Clear lungs. Normal pulmonary vascularity. No pleural effusion. No pneumothorax. HEART, MEDIASTINUM AND YANETH: Heart is normal in size. Normal upper mediastinal and hilar contour. BONES AND SOFT TISSUES: No acute abnormality. IMPRESSION: No acute abnormality. WSN: [id number] Ordering Physician: Yohannes Cassidy Dictated By: Sd Aguayo MD Dictated Date/Time: 05/05/22 1:09 pm Reviewed By: Sd Aguayo MD Signed By: Sd Aguayo MD Signed Date/Time: 05/05/22 1:09 pm Transcribed By: HARPAL Transcribed Date/Time: 05/05/22 1:08 pm Vital Signs Most recent to oldest 1 2 3 [Reference Range]: Height 165 cm 165 cm (05/05/22 5:06 PM) (05/05/22 12:20 PM) Weight 92.6 kg 92.6 kg (05/05/22 5:06 PM) (05/05/22 12:20 PM) Oxygen Saturation [94-100 %] 100 % 100 % 97 % (05/05/22 5:55 PM) (05/05/22 5:06 PM) (05/05/22: 20 PM) Pulse Rate [55-90 bpm] 85 bpm 78 bpm 90 bpm (05/05/22 5:55 PM) (05/05/22 5:06 PM) (05/05/22 12: 20 PM) Body Mass Index [18.5-24.99] 34.01 *>HHI* (05/05/22 5:06 PM) Blood Pressure [90-138/55-84 118/89 mm Hg 125/80 mm Hg 132 /78 mm Hg mm Hg] (05/05/22 5:55 PM) (05/05/22 5:06 PM) (05/05/22 12: 20 PM) Respiratory Rate [16-30 16 br/min 17 br/min 16 br/mi n br/min] (05/05/22 5:55 PM) (05/05/22 5:06 PM) (05/05/22 12: 20 PM) Temperature [96.8-100.4 98.8 DegF DegF] (05/05/22 12:20 PM) Mode of Delivery (Oxygen) Room air Room air Room a ir (05/05/22 5:55 PM) (05/05/22 5:06 PM) (05/05/22 12: 20 PM) Blood pressure sites Arm, right Arm, right Arm, right (05/05/22 5:55 PM) (05/05/22 5:06 PM) (05/05/22 12: 20 PM) Temperature Route Temporal (05/05/22 12:20 PM) Dry Weight 92.6 kg 92.6 kg (05/05/22 5:06 PM) (05/05/22 12:20 PM) Dry Weight Obtained Via Standing scale (05/05/22 12:20 PM) Social History Social History Type Response Smoking Status Former smoker; Other: Quit 2 015; entered on: 09/10/17 Sex
--- OUTSIDE RECORDS SUMMARY | 2022-08-20 22:48 | XMS_ITS | Continuity of Care Document ---
:1970 Author Organization [facility] Address [address] [place] [address]- Care Team Providers Name Role Phone Dawna Hernandez MD Primary Care Physician Encounter [facility] Date(s): 05/02/21 - 06/01/[address] [address] Allergies, Adverse Reactions, Alerts Substance Reaction [...] 04/30/2010:59:00 EDT, Aerosol, Route to Pharmacy Electronically, [id number], [id number], 165, cm, 04/30/20 10:31:00 EDT, [...] tablet, 5 Refills, Maintenance, 01/20/21 16:26:00EDT, Tablet, [facility]/pharmacy #[id number], 164, cm, 01/20/21 15:43:00 EDT, [...] tableta en la manana y noche x3ds. [place] katy tableta en la manana y tarde y antes de acostarse., # 90 capsule, Refills 1, Tot. Refills 1, Maintenan... Start Date: 01/18/21 Status: Orderedlidocaine 5% topical film 1 patch, Topically, Daily, PRN Pain , Moderate, # 10 patch, 0 Refills, Maintenance, 04/26/21 10:38:00 EDT, Patch, [facility], Partial fill upon patient request if the [...] Acute 06/07/21 17:10:00 EDT, 05/24/21 17:10:00 EDT, [facility]/pharmacy #[id number], Partial fill upon patient request [...] 05/20/21 16:26:00 EDT, Route to Pharmacy Electronically, [facility]/pharmacy #[id number], Partial fill upon patient request [...] Maintenance,04/26/21 10:39:00 EDT, Route to Pharmacy Electronically, [facility]/pharmacy #[id number], Partial fill upon patient request if the [...] Health halfway, active care Active coordination PADMINI Mata [phone](Confirmed) Fatty infiltration of liver(Confirmed) Active Tubular adenoma of colon(Confirmed) Active Social History Social History Type Response Smoking Status Former smoker; Other: Quit 2 015; entered on: 09/10/17 Sex
--- OUTSIDE RECORDS SUMMARY | 2022-08-20 22:48 | XMS_ITS | Continuity of Care Document ---
:1970 Author Organization [facility] Address [address] [place] [address]- Care Team Providers Name Role Phone Dawna Hernandez MD Primary Care Physician Encounter [facility] Date(s): 05/25/20 - 06/24/[address] [address]- [facility] Allergies, Adverse Reactions, Alerts Substance [...] 06/20/20 13:59:00 EDT, Route to Pharmacy Electronically, [facility], 165, cm, 06/19/20 3:51:00 [...] 04/30/2010:59:00 EDT, Aerosol, Route to Pharmacy Electronically, [id number], [facility]/pharmacy #[id number], 165, cm, 04/30/20 10:31:00 [...] 06/20/20 14:06:00 EDT, Route to Pharmacy Electronically, [facility], 165, cm, 06/19/20 3:51:00 EDT, Height, 95.8, kg, 06/17/20 2:50:00 EDT, Dry Weight Start Date: 06/20/20 Status: Orderedatorvastatin 20 mg oral tablet 1 tablet = 20 mg, By Mouth, Daily, # 30 tablet, 5 Refills, Maintenance, 04/30/20 10:59:00 EDT, Tablet, [facility]/pharmacy #[id number], 165, cm, 04/30/20 10:31:00 EDT, Height, [...] day, # 90 tablet, 5 Refills, Maintenance, 02/06/20 12:00:00 EST, Tablet, [facility]/pharmacy #[id number], 165, cm, 11/20/19 11:16:00 EST, Height, 97.3, kg, 10/23/19 17:43:00 EST, Dry Weight Start Date: 11/20/19 Status: OrderedHibiclens 4% soap 1 applicator, Topically, Daily, Please use to cleanse left knee daily when showering, # 960 mL, 0 Refills, Soft Stop, 06/20/20 14:06:00 EDT, [facility], 1 applicator Topically Daily,Instr:Please use to cleanse left knee daily when shower... Start Date: 06/20/20 Status: OrderedlevoFLOXacin 500 mg oral tablet 1 tablet = 500 mg, By Mouth, Every 24 hours, for 14 days, # 14 tablet, 0 Refills, Acute 07/04/20 13:59:00 EDT, 06/20/20 13:59:00 EDT, Tablet, [facility], 165, cm, 06/19/20 3:51:00 EDT, Height, 95.8, kg, 06/17/20 2:50:00 EDT, Dry Weight Start Date: 06/20/20 Stop Date: 07/04/20 Status: Orderedomeprazole 20 mg oral delayed release tablet 1 tablet = 20 mg, By Mouth, Daily, # 30 tablet, 2 Refills, Maintenance, 05/24/20 10:57:00 EDT, EC Tablet, [id number], 165, cm, 05/06/20 10:29:00 EDT, Height, [...] pain(Confirmed) Active Obstructive sleep apnea(Confirmed) Active Health [facility], active care Active [facility] [phone](Confirmed) Fatty infiltration of liver(Confirmed) Active Social History Social History Type Response Smoking Status Former smoker; Other: Quit 2 015; entered on: 09/10/17 Sex
--- OUTSIDE RECORDS SUMMARY | 2022-08-20 22:48 | XMS_ITS | Continuity of Care Document ---
:1970 Author Organization [facility] Address [address] [place] [address]- Care Team Providers Name Role Phone Daja MAYBERRY, Mirta Primary Care Physician Encounter [facility] Date(s): 11/16/21 - 12/16/21 [facility] [address] [place], [place] [address] Allergies, Adverse Reactions, Alerts [...] 04/30/2010:59:00 EDT, Aerosol, Route to Pharmacy Electronically, [id number], [facility]/pharmacy #[id number], 165, cm, [...] 0 Refills, Maintenance, 12/01/21 10:36:00 EST, Tablet, [id number], RX in Estonian., 165, cm, 08/09/21 9:47:00 EDT, Height, 98.5, [...] tableta en la manana y noche x3ds. [place] katy tableta en la manana y tarde y antes de acostarse., # 270 capsule, Refills 3, Tot. Refills 3, Maintena... Start Date: 08/09/21 Status: Orderedlidocaine 1.8% topical film 1 patch, Topically, Daily, PRN Pain , Mild, leave on up to 12 hours, # 30 each, 0 Refills, Maintenance, 12/05/21 14:55:00 EST, Film, [facility]/pharmacy #7952, Partial fill upon patient request if the prescription is for a schedule II opioid drug., 1 patch T... Start Date: 12/05/21 Status: Orderedlidocaine 5% topical film 1 patch, Topically, Daily, PRN Pain , Moderate, # 10 patch, 0 Refills, Maintenance, 04/26/21 10:38:00 EDT, Patch, [facility]/pharmacy #[id number], Partial fill [...] Acute 01/11/22 9:46:00 EDT, 12/14/21 9:46:00 EST, [facility]/pharmacy #4471, Partial fill upon patient requestif the [...] ReplaceRequired Details, Route to Pharmacy Electronically, [facility], 165, cm, 06/02/21 12:44:00 EDT,Height, 92.8, kg, 05/19/21 23:20:00 EDT, Dry Weight Start Date: 08/02/21 Status: Orderedpropranolol 20 mg oral tablet 40 mg, 2, tablet, By Mouth, 2 times a day, # 120 tablet, Refills 1, Tot. Refills 1, Maintenance, 11/14/21 8:40:00 EST, Route to Pharmacy Electronically, [facility]/pharmacy #8541, Partial fill upon patient request if the [...] 10:39:00 EDT, Route to Pharmacy Electronically, [facility]/pharmacy #[id number], Partial fill upon patient request if the prescription is for a schedule I... Start Date: 04/26/21 Stop Date: 05/03/21 Status: OrderedTylenol 8 Hour 650 mg oral tablet, extended release 2 tablet = 1,300 mg, By Mouth, Every 8 hours, PRN Pain , Mild, # 24 tablet, 0 Refills, Maintenance, 12/05/21 14:55:00 EST, ER Tablet, [facility]/pharmacy #[id number], Partial fill upon patient request if the prescription is for a schedule II opioid drug., 165, cm,... Start Date: 12/05/21 Status: OrderedWalker See Instructions, # 1 units, Maintenance, Use as dircted, 07/05/19 14:32:18 EDT, Compound Start Date: 07/05/19 Status: Ordered Problem List Condition Effective Dates Status Health Status Informant Chest pain(Confirmed) Active Chest pain(Confirmed) Active COVID-19(Confirmed) Active Depression(Confirmed) Active Diabetes(Confirmed) Active Controlled substance agreement signed Active 02/03/20(Confirmed) GERD (gastroesophageal reflux Active disease)(Confirmed) Hyperlipidemia(Confirmed) Active Lower back pain(Confirmed) Active Obstructive sleep apnea(Confirmed) Active Health nursing home, active care Active coordination PADMINI Mata [phone](Confirmed) Fatty infiltration of liver(Confirmed) Active Tubular adenoma of colon(Confirmed) Active Social History Social History Type Response Smoking Status Former smoker; Other: Quit 2 015; entered on: 09/10/17 Sex
--- OUTSIDE RECORDS SUMMARY | 2022-08-20 22:48 | XMS_ITS | Continuity of Care Document ---
:1970 Author Organization [facility] Address [address] [place] [address]- Care Team Providers Name Role Phone Mary RAWLS, Dawna Primary Care Physician Encounter [facility] Date(s): 05/19/21 - 05/20/[address] [address] Discharge Disposition: A-D/C Home Attending Physician: Yuri Madden MD Admitting Physician: Jayce Chino MD Referring Physician: Not on Staff, Referring [...] 04/30/2010:59:00 EDT, Aerosol, Route to Pharmacy Electronically, [id number], [facility]/pharmacy #[id number], 165, cm, 04/30/20 10:31:00 [...] tablet, 5 Refills, Maintenance, 01/20/21 16:26:00EDT, Tablet, [facility]/pharmacy #[id number], 164, cm, 01/20/21 15:43:00 [...] Acute 05/22/21 10:41:00 EDT, 04/26/21 10:41:00 EDT, [facility]/pharmacy #[id number], Partial fill upon patient [...] oral capsule 300 mg, Capsule, By Mouth, 05/20/21 15:00:00 EDT Start Date: 05/20/21 Stop Date: 05/20/21 Status: Completedgabapentin 300 mg oral capsule 300 mg, 1, capsule, By Mouth, 3 times a day, [place] katy tableta en la noche x3ds. Despues, tomeuna tableta en la manana y noche x3ds. [place] katy tableta en la manana y tarde y antes de acostarse., # 90 capsule, Refills 1, Tot. Refills 1, Maintenan... Start Date: 01/18/21 Status: Orderedlidocaine 5% topical film 1 patch, Topically, Daily, PRN Pain , Moderate, # 10 patch, 0 Refills, Maintenance, 04/26/21 10:38:00 EDT, Patch, [facility]/pharmacy #[id number], Partial fill upon patient [...] 05/20/21 16:26:00 EDT, Route to Pharmacy Electronically, [facility]/pharmacy #[id number], Partial fill upon patient [...] Maintenance,04/26/21 10:39:00 EDT, Route to Pharmacy Electronically, [facility]/pharmacy #[id number], Partial fill upon patient request if the [...] Active Health prison, active care Active coordination Netta Cruz [facility] [phone](Confirmed) Fatty infiltration of liver(Confirmed) Active Tubular adenoma of colon(Confirmed) Active Vital Signs Most recent to oldest 1 2 3 [Reference Range]: Height 165 cm 165 cm 165 cm (05/20/21 4:47 PM) (05/20/21 3:05 PM) (05/20/21 7:37 A M) Weight 95.3 kg 95.3 kg 95.3 kg (05/20/21 1:38 AM) (05/19/21 11:00 PM) (05/19/21 10:55 PM) Oxygen Saturation [94-100 %] 99 % 98 % 98 % (05/20/21 3:05 PM) (05/20/21 7:37 AM) (05/20/21 2:20 A M) Pulse Rate [55-90 bpm] 87 bpm 76 bpm 76 bpm (05/20/21 3:05 PM) (05/20/21 12:00 PM) (05/20/21 7:37 AM) Body Mass Index [18.5-24.99] 35 35 *>HHI* *>HHI* (05/19/21 11:00 PM) (05/19/21 10:55 PM) Blood Pressure [90-138/55-84 mm 116/75 mm Hg 108/74 mm Hg 105/78 mm Hg Hg] (05/20/21 3:05 PM) (05/20/21 12:00 PM) (05/20/21 7:37 AM) Respiratory Rate [16-30 br/min] 20 br/min 18 br/min 18 br/min (05/20/21 4:08 PM) (05/20/21 3:08 PM) (05/20/21 3:05 P M) Temperature [96.8-100.4 DegF] 97.7 DegF 96.8 DegF 98 .8 DegF (05/20/21 3:05 PM) (05/20/21 12:00 PM) (05/20/21 7:37 AM) Mode of Delivery (Oxygen) Room air Room air Room a ir (05/20/21 3:05 PM) (05/20/21 12:00 PM) (05/20/21 7:37 AM) Blood pressure sites Arm, left Arm, left Arm, left (05/20/21 3:05 PM) (05/20/21 12:00 PM) (05/20/21 7:37 AM) Temperature Route Temporal Temporal Temporal (05/20/21 3:05 PM) (05/20/21 12:00 PM) (05/20/21 7:37 AM) Dry Weight 92.8 kg 92.8 kg (05/19/21 11:00 PM) (05/19/21 10:55 PM) Social History Social History Type Response Smoking Status Former smoker; Other: Quit 2 015; entered on: 09/10/17 Sex
--- OUTSIDE RECORDS SUMMARY | 2022-08-20 22:48 | XMS_ITS | Continuity of Care Document ---
:1970 Author Organization [facility] Address [address] [place] [address]- Care Team Providers Name Role Phone Dawna Hernandez MD Primary Care Physician Encounter [facility] [place] Date(s): 12/23/19 - 02/27/[address] [address] [place] Attending Physician: Dawna Hernandez MD Admitting [...] Maintenance, 189:52:06, Aerosol, Route to Pharmacy Electronically, [id number], [facility] [id number], Compound Start Date: 11/21/17 Status: OrderedAlcohol Wipes See Instructions, # 1 box, Maintenance, please use before testing three times a day: dx type 2 diabetes, 04/04/18 18:52:53 EDT, Compound Start Date: 04/04/18 Status: Orderedatorvastatin 20 mg oral tablet 1 tablet = 20 mg, By Mouth, Daily, # 30 tablet, 5 Refills, Maintenance, 10/29/19 9:49:00 EST, Tablet, [facility]/pharmacy #[id number], 165, cm, 10/24/19 14:26:00 EST, [...] 01/02/20 15:07:00 EDT, Route to Pharmacy Electronically, [facility]/pharmacy #[id number], 165, cm, 12/23/19 9:38:00 EDT, [...] 5 Refills, Maintenance, 11/20/19 12:00:00 EST, Tablet, [facility]/pharmacy #[id number], 165, cm, 11/20/19 11:16:00 EST, Height, 97.3, kg, 10/23/19 17:43:00 EST, Dry Weight Start Date: 11/20/19 Status: OrderedNaprosyn 500 mg oral tablet 1 tablet = 500 mg, By Mouth, 2 times a day, # 60 tablet, 1 Refills, Maintenance, 11/20/19 11:59:00 EST, Tablet, [facility]/pharmacy #[id number], 165, cm, 11/20/19 11:16:00 EST, Height, 97.3, kg, 10/23/19 17:43:00 EST, Dry Weight Start Date: 11/20/19 Status: Orderedondansetron 8 mg oral tablet, disintegrating 1 tablet = 8 mg, By Mouth, 3 times a day, # 9 tablet, 0 Refills, Maintenance, 01/02/20 15:06:00 EDT,DIS Tablet, [facility]/pharmacy #[id number], 165, cm, 12/23/19 9:38:00 EDT, Height, 93.2, kg, 12/17/19 11:27:00 EST, Dry Weight Start Date: 01/02/20 Status: OrderedoxyCODONE 15 mg oral tablet 1 tablet = 15 mg, By Mouth, Every 8 hours, PRN as needed for pain, for 7 days, on agreement dx: M54.5 do not fill until 02/26/20 MassPAT checked, # 21 tablet, 0 Refills, Acute 03/04/20 16:06:00 EDT, 02/26/20 16:06:00 EDT, Tablet, [facility]/pharmacy #[id number],... Start Date: 02/26/20 Stop Date: 03/04/20 Status: OrderedrisperiDONE 2 mg oral tablet 2 [...] 12/23/19 10:09:00 EDT, Route to Pharmacy Electronically, [facility]/pharmacy #[id number], 165, cm, 12/23/19 9:38:00 EDT, [...] Health halfway, active care Active coordination PADMINI Nancy Esperanza [phone](Confirmed) Fatty infiltration of liver(Confirmed) Active Social History Social History Type Response Smoking Status Former smoker; Other: Quit 2 015; entered on: 09/10/17 Sex
--- OUTSIDE RECORDS SUMMARY | 2022-08-20 22:48 | XMS_ITS | Continuity of Care Document ---
:1970 Author Organization [facility] Address [address] [place] [address]- Care Team Providers Name Role Phone Dawna Hernandez MD Primary Care Physician [facility]counter [facility] Date(s): 05/11/22 - 06/10/[address] [address] Allergies, Adverse Reactions, Alerts Substance Reaction Severity Status lisinopril Angioedema Active Shrimp Active Immunizations Given and Recorded Vaccine Date Status Refusal Reason influenza virus vaccine, inactivated 02/15/22 Given influenza virus vaccine, inactivated 09/01/20 Given influenza virus vaccine, inactivated 09/15/19 Given influenza virus vaccine, inactivated 11/19/18 Given influenza virus vaccine, inactivated 09/10/17 Given influenza virus vaccine, inactivated 12/06/15 Given SARS-CoV-2 mRNA (mcdixgw-ejuo-ppfjm) vax 01/26/22 Given SARS-CoV-2 mRNA (fxqfqsz-wtxo-krtfx) vax 12/28/21 Given tetanus/diphtheria/pertussis, acel(Tdap) 03/29/19 Given tetanus/diphtheria/pertussis, acel(Tdap) 09/10/17 Given pneumococcal 23-valent vaccine 04/08/18 Recorded pneumococcal 23-valent vaccine 04/22/17 Recorded pneumococcal 23-valent vaccine 12/21/12 Given Medications albuterol CFC free 90 mcg/inh inhalation aerosol 2, puffs, Inhalation, Every 6 hours, PRN, # 1 each, Refills 6, Tot. Refills 6, Maintenance, 04/30/2010:59:00 EDT, Aerosol, Route to Pharmacy Electronically, [id number], [id number], 165, cm, 04/30/20 10:31:00 EDT, Hei... Start Date: 04/30/20 Status: OrderedAlcohol Wipes See Instructions, # 1 box, Maintenance, please use before testing three times a day: dx type 2 diabetes, 04/04/18 18:52:53 EDT, Compound Start Date: 04/04/18 Status: Orderedatorvastatin 40 mg oral tablet 1 tablet = 40 mg, By Mouth, Daily, # 90 tablet, 3 Refills, Maintenance, 05/11/22 14:22:00 EDT, Tablet, [facility]/pharmacy #[id number], Partial fill upon patient [...] tablet, 1 Refills, Maintenance, 04/05/22 7:53:00 EDT, [facility]/pharmacy #[id number], 165, cm, 02/15/22 10:35:00 [...] 12/25/21 14:04:00 EDT, Route to Pharmacy Electronically, [facility], Partial fill upon patient request [...] # 60 tablet, 0 Refills, Physician Stop, [facility], 165, cm, 05/05/22 17:06:00 EDT, Height, 92.6, kg, 05/05/22 17:06:00 EDT, Dry Weight Start Date: 05/12/22 Stop Date: 06/11/22 Status: OrderedPAP Supplies - Mask, Tubing, Filters, [...] tablet, Refills 5, Route to Pharmacy Electronically, [facility], 166, cm, 12/28/21 10:33:00 EDT, Height, 91.9, [...] Active Health long-term, active care Active [facility] [phone](Confirmed) Fatty infiltration of liver(Confirmed) Active Tubular adenoma of colon(Confirmed) Active Social History Social History Type Response Smoking Status Former smoker; Other: Quit 2 015; entered on: 09/10/17 Sex Care Team PersonnelName: Dawna Hernandez MD Address: [address] [place] [address]
--- OUTSIDE RECORDS SUMMARY | 2022-08-20 22:48 | XMS_ITS | Continuity of Care Document ---
:1970 Author Organization [facility] Address [address] [place] [address]- Care Team Providers Name Role Phone Dawna Hernandez MD Primary Care Physician [place] [facility] Date(s): 05/17/21 - 06/22/[address] [address] Attending Physician: Not on [...] 04/30/2010:59:00 EDT, Aerosol, Route to Pharmacy Electronically, [id number], [id number], 165, cm, 04/30/20 10:31:00 EDT, [...] tableta en la manana y noche x3ds. [place] katy tableta en la manana y tarde y antes de acostarse., # 90 capsule, Refills 1, Tot. Refills 1, Maintenan... Start Date: 01/18/21 Status: Orderedlidocaine 5% topical film 1 patch, Topically, Daily, PRN Pain , Moderate, # 10 patch, 0 Refills, Maintenance, 04/26/21 10:38:00 EDT, Patch, [facility], Partial fill upon patient request if the [...] to Pharmacy Electronically, [facility]/pharmacy #[id number], Partial fill upon patient request if the [...] long-term, active care Active coordination PADMINI Mata [phone](Confirmed) Fatty infiltration of liver(Confirmed) Active Tubular adenoma of colon(Confirmed) Active Social History Social History Type Response Smoking Status Former smoker; Other: Quit 2 015; entered on: 09/10/17 Sex
--- OUTSIDE RECORDS SUMMARY | 2022-08-20 22:48 | XMS_ITS | Continuity of Care Document ---
:1970 Author Organization [facility] Address [address] [place] [address]- Care Team Providers Name Role Phone Mary RAWLS, Dawna Primary Care Physician Encounter [facility] Date(s): 10/10/20 - 10/11/[address] [address] Encounter Diagnosis COVID-19 virus infection (Final) - 10/10/20 Head injury (Final) - 10/10/20 Forehead contusion (Final) - 10/10/20 Chest pain (Final) - 10/11/20 Discharge Disposition: A-D/C Home Attending Physician: Regino Rosenthal MD Admitting Physician: Mark Borrego MD Referring Physician: Not on Staff, Referring [...] 04/30/2010:59:00 EDT, Aerosol, Route to Pharmacy Electronically, [id number], [facility]/pharmacy #[id number], 165, cm, 04/30/20 10:31:00 [...] 5 Refills, Maintenance, 04/30/20 10:59:00 EDT, Tablet, [facility]/pharmacy #[id number], 165, cm, 04/30/20 10:31:00 [...] 0 Refills, Maintenance, 09/13/20 13:37:00 EST, Tablet, [facility]/pharmacy #[id number], Partial fill upon patient r... Start [...] oral capsule 2 mg, Capsule, By Mouth, 10/11/20 9:00:00 EST Start Date: 10/11/20 Stop Date: 10/11/20 Status: Completedprazosin 2 mg oral capsule 1 [...] alf, active care Active coordination PADMINI Mata [phone](Confirmed) Fatty infiltration of liver(Confirmed) Active Tubular adenoma of colon(Confirmed) Active Results Radiology Reports Exam Date Time Procedure Performing Provider Status 10/10/20 3:55 PM Chest Portable Kaylee Jerson; July (Verified) Notes:(Chest Portable) Reason For Exam: Chest Pain;Other:RESULT: Chest Portable Chest Portable Reason: Other:; Chest Pain; Clinical Question(s): CHF COMPARISON: 09/19/2020 FINDINGS: LINES AND TUBES: None. LUNGS AND PLEURA: Previously seen hazy opacity right mid lung is improved. No focal consolidation. Normal pulmonary vascularity. No pleural effusion. No pneumothorax. HEART, MEDIASTINUM AND YANETH: Heart is normal in size. Normal upper mediastinal and hilar contour. BONES AND SOFT TISSUES: No acute abnormality. IMPRESSION: No acute abnormality. WSN: [id number] Ordering Physician: Mirta Bruce Dictated By: Yony Gutierrez MD Dictated Date/Time: 10/10/20 4:04 pm Reviewed By: Yony Gutierrez MD Signed By: Yony Gutierrez MD Signed Date/Time: 10/10/20 4:04 pm Transcribed By: HARPAL Transcribed Date/Time: 10/10/20 4:02 pm Vital Signs Most recent to oldest 1 2 3 [Reference Range]: Height 165 cm 165 cm 165 cm (10/11/20 3:28 PM) (10/11/20 11:00 AM) (10/11/20 7:36 AM) Weight 91.4 kg 100 kg (10/11/20 2:08 AM) (10/11/20 2:06 AM) Oxygen Saturation [94-100 99 % 98 % 98 % %] (10/11/20 3:28 PM) (10/11/20 11:00 AM) (10/11/20 7:36 AM) Pulse Rate [55-90 bpm] 102 bpm 79 bpm 84 bpm *H* (10/11/20 11:00 AM) (10/11/20 7: 36 AM) (10/11/20 3:28 PM) Body Mass Index 36.73 [18.5-24.99] *>HHI* (10/11/20 2:06 AM) Blood Pressure 97/59 mm Hg 99/61 mm Hg 110/71 mm Hg [90-138/55-84 mm Hg] (10/11/20 3:28 PM) (10/11/20 11:00 AM) ( 9:50 AM) Respiratory Rate [16-30 20 br/min 20 br/min 20 br/mi n br/min] (10/11/20 3:28 PM) (10/11/20 11:00 AM) (10/11/20 7:36 AM) Temperature [96.8-100.4 98.1 DegF 98.1 DegF 98.1 Deg F DegF] (10/11/20 3:28 PM) (10/11/20 11:00 AM) (10/11/20 7:36 AM) Mode of Delivery (Oxygen) Room air Room air Room a ir (10/11/20 3:28 PM) (10/11/20 11:00 AM) (10/11/20 7:36 AM) Blood pressure sites Arm, right Arm, right Arm, right (10/11/20 3:28 PM) (10/11/20 11:00 AM) (10/11/20 7:36 AM) Temperature Route Oral Oral Oral (10/11/20 3:28 PM) (10/11/20 11:00 AM) (10/11/20 7:36 AM) Dry Weight 100 kg (10/11/20 2:06 AM) Weight Obtained Via Bed scale (10/11/20 2:08 AM) Social History Social History Type Response Smoking Status Former smoker; Other: Quit 2 015; entered on: 09/10/17 Sex
--- OUTSIDE RECORDS SUMMARY | 2022-08-20 22:48 | XMS_ITS | Continuity of Care Document ---
:1970 Author Organization [facility] Address [address] [place] [address]- Care Team Providers Name Role Phone Dawna Hernandez MD Primary Care Physician Encounter [facility] Date(s): 09/23/21 - 10/23/[address] [address] Allergies, Adverse Reactions, Alerts Substance [...] 04/30/2010:59:00 EDT, Aerosol, Route to Pharmacy Electronically, [id number], [facility]/pharmacy #[id number], 165, cm, 04/30/20 10:31:00 [...] tableta en la manana y noche x3ds. [place] katy tableta en la manana y tarde y antes de acostarse., # 270 capsule, Refills 3, Tot. Refills 3, Maintena... Start Date: 08/09/21 Status: Orderedlidocaine 5% topical film 1 patch, Topically, Daily, PRN Pain , Moderate, # 10 patch, 0 Refills, Maintenance, 04/26/21 10:38:00 EDT, Patch, [facility]/pharmacy #6112, Partial fill upon patient request if the [...] days, MassPAT checked do not fill until 10/12/21, # 56 tablet, 0 Refills, Acute 10/26/21 10:38:00 EST, 10/12/21 10:38:00 EST, [facility]/pharmacy #[id number], Partial fill upon patient request if the prescription... Start Date: 10/12/21 Stop Date: 10/26/21 Status: OrderedPAP Supplies - Mask, Tubing, Filters, [...] Instructions ReplaceRequired Details, Route to Pharmacy Electronically, [facility] STORE 25248, 165, cm, 06/02/21 12:44:00 EDT,Height, 92.8, kg, 05/19/21 23:20:00 EDT, Dry Weight Start Date: 08/02/21 Status: Orderedpropranolol 20 mg oral tablet 40 mg, 2, tablet, By Mouth, 2 times a day, # 120 tablet, Refills 0, Tot. Refills 0, Maintenance, 08/02/21 15:46:00 EDT, Route to Pharmacy Electronically, [facility]/pharmacy #[id number], Partial fill upon patient [...] EDT, Route to Pharmacy Electronically, [facility]/pharmacy #[id number], Partial fill upon patient [...] living, active care Active coordination PADMINI Mata [phone](Confirmed) Fatty infiltration of liver(Confirmed) Active Tubular adenoma of colon(Confirmed) Active Social History Social History Type Response Smoking Status Former smoker; Other: Quit 2 015; entered on: 09/10/17 Sex
--- OUTSIDE RECORDS SUMMARY | 2022-08-20 22:48 | XMS_ITS | Continuity of Care Document ---
:1970 Author Organization [facility] Address [address] [place] [address]- Care Team Providers Name Role Phone Dawna Hernandez MD Primary Care Physician Encounter [facility] Date(s): 02/15/22 - 04/23/[address] [address] Attending Physician: Not on [...] virus vaccine, inactivated 12/06/15 Given SARS-CoV-2 mRNA (ffntxyc-byqk-tpftv) vax 01/26/22 Given SARS-CoV-2 mRNA (gxkvwwc-hffk-lsdii) vax 12/28/21 Given tetanus/diphtheria/pertussis, acel(Tdap) 03/29/19 Given tetanus/diphtheria/pertussis, acel(Tdap) 09/10/17 Given pneumococcal 23-valent vaccine 04/08/18 Recorded pneumococcal 23-valent vaccine 04/22/17 Recorded pneumococcal 23-valent vaccine 12/21/12 Given Medications albuterol CFC free 90 mcg/inh inhalation aerosol 2, puffs, Inhalation, Every 6 hours, PRN, # 1 each, Refills 6, Tot. Refills 6, Maintenance, 04/30/2010:59:00 EDT, Aerosol, Route to Pharmacy Electronically, [id number], [id number], 165, cm, 04/30/20 10:31:00 EDT, [...] tablet, 1 Refills, Maintenance, 04/05/22 7:53:00 EDT, [id number], 165, cm, 02/15/22 10:35:00 EDT, Height, [...] 12/25/21 14:04:00 EDT, Route to Pharmacy Electronically, [facility], Partial fill upon patient request [...] # 60 tablet, 0 Refills, Physician Stop, [facility] STORE 08710, 165, cm, 02/15/22 10:35:00 EDT, Height, 90.7, [...] tablet, Refills 5, Route to Pharmacy Electronically, [facility] STORE 61160, 166, cm, 12/28/21 10:33:00 EDT, Height, 91.9, [...] fci, active care Active coordination PADMINI Mata [phone](Confirmed) Fatty infiltration of liver(Confirmed) Active Tubular adenoma of colon(Confirmed) Active Social History Social History Type Response Smoking Status Former smoker; Other: Quit 2 015; entered on: 09/10/17 Sex
--- OUTSIDE RECORDS SUMMARY | 2022-08-20 22:48 | XMS_ITS | Continuity of Care Document ---
:1970 Author Organization [facility] Address [address] [place] [address]- Care Team Providers Name Role Phone Mirta Farnsworth NP Primary Care Physician [place] [facility] [place] 11/29/21 - 12/30/[address] [address] Attending Physician: Not on Staff, Attending MD Referring Physician: Mirta Farnsworth NP Allergies, Adverse Reactions, Alerts Substance Reaction Severity Status lisinopril Angioedema Active Shrimp Active Immunizations Given and Recorded Vaccine Date Status Refusal Reason SARS-CoV-2 mRNA (slzhfwp-meiq-smcax) vax 12/28/21 Given influenza virus vaccine, inactivated [...] 12/25/21 14:28:00 EDT, Route to Pharmacy Electronically, [facility], Partial fill upon patient request if the... Start Date: 12/25/21 Stop Date: 01/08/22 Status: OrderedAerochamber See Instructions, # 1 each, Maintenance, as instructed, 11/21/17 9:52:57, Compound Start Date: 11/21/17 Status: Orderedalbuterol CFC free 90 mcg/inh inhalation aerosol 2, puffs, Inhalation, Every 6 hours, PRN, # 1 each, Refills 6, Tot. Refills 6, Maintenance, 04/30/2010:59:00 EDT, Aerosol, Route to Pharmacy Electronically, [id number], [facility]/pharmacy #[id number], 165, cm, 04/30/20 10:31:00 EDT, Hei... Start Date: 04/30/20 Status: OrderedAlcohol Wipes See Instructions, # 1 box, Maintenance, please use before testing three times a day: dx type 2 diabetes, 04/04/18 18:52:53 EDT, Compound Start Date: 04/04/18 Status: Orderedatorvastatin 20 mg oral tablet 1 tablet = 20 mg, By Mouth, Daily at bedtime, # 30 tablet, 5 Refills, Maintenance, 01/20/21 16:26:00EDT, Tablet, [facility]/pharmacy #[id number], 164, cm, 01/20/21 15:43:00 EDT, Height, [...] 0 Refills, Maintenance, 12/01/21 10:36:00 EST, Tablet, [facility]/pharmacy #[id number], RX in [place]., 165, cm, 08/09/21 9:47:00 EDT, Height, 98.5, [...] 01/01/22 14:06:00 EDT, 12/26/21 14:06:00 EDT, Capsule, [facility], Partial fill upon patient [...] 12/25/21 14:04:00 EDT, Route to Pharmacy Electronically, [facility], Partial fill upon patient request if the prescription is for a sched... Start Date: 12/25/21 Status: Orderedlidocaine 5% topical film 1 patch, Topically, Daily, PRN Pain , Moderate, # 10 patch, 0 Refills, Maintenance, 04/26/21 10:38:00 EDT, Patch, [facility]/pharmacy #[id number], Partial fill upon patient request if the prescription is for a schedule II opioid drug., 1 patch Topically Daily,PRN:... Start Date: 04/26/21 Status: Orderednaproxen 500 mg oral tablet 1 tablet = 500 mg, By Mouth, 2 times a day, for 30 days, # 60 tablet, 0 Refills, Acute 01/27/22 10:52:00 EDT, 12/28/21 10:52:00 EDT, Tablet, [facility]/pharmacy #[id number], Partial fill upon patient request if theprescription is for a schedule II opioid drug., 1... Start Date: 12/28/21 Stop Date: 01/27/22 Status: Orderedomeprazole 20 mg oral enteric coated capsule 1 capsule = 20 mg, By Mouth, Daily, # 30 capsule, 1 Refills, Maintenance, 12/14/20 10:57:00 EST, [facility]/pharmacy #[id number], Partial fill upon patient request if the prescription is for a schedule II opioid drug., 165, cm, 12/09/20 14:35:00 EST, Height, 90.5,... Start Date: 12/14/20 Stop Date: 02/12/21 Status: OrderedoxyCODONE 15 mg oral tablet 1 tablet = 15 mg, By Mouth, Every 6 hours, for 28 days, MassPAT checked, # 112 tablet, 0 Refills, Acute 01/11/22 9:46:00 EDT, 12/14/21 9:46:00 EST, [facility]/pharmacy #[id number], Partial fill upon patient requestif the [...] Refills, Maintenance, 12/25/21 14:05:00 EDT, REC Powder, [facility] 3, Partial fill upon patient request if [...] 11/14/21 8:40:00 EST, Route to Pharmacy Electronically, [facility]/pharmacy #[id number], Partial fill upon patient request if [...] Maintenance,04/26/21 10:39:00 EDT, Route to Pharmacy Electronically, [facility]/pharmacy #[id number], Partial fill upon patient request if the [...] I(Confirmed) Active Obstructive sleep apnea(Confirmed) Active Health skilled nursing, active care Active coordination PADMINI Mata [phone](Confirmed) Fatty infiltration of liver(Confirmed) Active Tubular adenoma of colon(Confirmed) Active Social History Social History Type Response Smoking Status Former smoker; Other: Quit 2 015; entered on: 09/10/17 Sex
--- OUTSIDE RECORDS SUMMARY | 2022-08-20 22:48 | XMS_ITS | Continuity of Care Document ---
:1970 Author Organization [facility] Address [address] [place] [address]- Care Team Providers Name Role Phone Dawna Hernandez MD Primary Care Physician Encounter [facility] Date(s): 04/27/20 - 05/27/[address] [address]- [facility] Allergies, Adverse Reactions, Alerts Substance [...] 04/30/2010:59:00 EDT, Aerosol, Route to Pharmacy Electronically, [id number], [facility]/pharmacy #[id number], 165, cm, 04/30/20 10:31:00 [...] 5 Refills, Maintenance, 04/30/20 10:59:00 EDT, Tablet, [facility]/pharmacy #[id number], 165, cm, 04/30/20 10:31:00 [...] Refills, Maintenance, 05/24/20 10:57:00 EDT, EC Tablet, [facility]/pharmacy #[id number], 165, cm, 05/06/20 10:29:00 EDT, Height, 95.8, kg, 04/19/20 14:48:00 EDT, Dry Weight Start Date: 05/24/20 Status: OrderedoxyCODONE 10 mg oral tablet 1 tablet = 10 mg, By Mouth, Every 6 hours, PRN as needed for pain, dx: M54.5 on agreement masspat checked do not fill til 05/25/20, # 20 tablet, 0 Refills, Maintenance, 05/25/20 13:50:00 EDT, Tablet, [facility], Partial fill upon cedric... Start Date: 05/25/20 Status: OrderedraNITIdine 75 mg oral tablet 1 tablet = 75 mg, By Mouth, Daily, # 28 tablet, 0 Refills, Maintenance, 04/30/20 10:58:00 EDT, Tablet, [facility]/pharmacy #[id number], 165, cm, 04/30/20 10:31:00 [...] pain(Confirmed) Active Obstructive sleep apnea(Confirmed) Active Health usp, active care Active coordination PADMINI Mata [phone](Confirmed) Fatty infiltration of liver(Confirmed) Active Social History Social History Type Response Smoking Status Former smoker; Other: Quit 2 015; entered on: 09/10/17 Sex
--- OUTSIDE RECORDS SUMMARY | 2022-08-20 22:48 | XMS_ITS | Continuity of Care Document ---
:1970 Author Organization [facility] Address [address] [place] [address]- Care Team Providers Name Role Phone Daja MAYBERRY, Mirta Primary Care Physician Encounter [facility] Date(s): 02/07/22 - 03/09/[address] [address] Attending Physician: Lori Patton Admitting [...] virus vaccine, inactivated 12/06/15 Given SARS-CoV-2 mRNA (pygdyei-rlrl-msxlb) vax 01/26/22 Given SARS-CoV-2 mRNA (hdiuqqb-rmxl-kwoqn) vax 12/28/21 Given tetanus/diphtheria/pertussis, acel(Tdap) 03/29/19 Given tetanus/diphtheria/pertussis, acel(Tdap) 09/10/17 Given pneumococcal 23-valent vaccine 04/08/18 Recorded pneumococcal 23-valent vaccine 04/22/17 Recorded pneumococcal 23-valent vaccine 12/21/12 Given Medications albuterol CFC free 90 mcg/inh inhalation aerosol 2, puffs, Inhalation, Every 6 hours, PRN, # 1 each, Refills 6, Tot. Refills 6, Maintenance, 04/30/2010:59:00 EDT, Aerosol, Route to Pharmacy Electronically, [id number], [facility]/pharmacy #[id number], 165, [...] tablet, 5 Refills, Maintenance, 01/20/21 16:26:00EDT, Tablet, [facility]/pharmacy #[id number], 164, cm, 01/20/21 15:43:00 EDT, Height, 98, kg, 01/11/21 18:32:00 EDT, Dry Weight Start Date: 01/20/21 Status: OrderedBack Brace See Instructions, # 1 each, Maintenance, Dx DJD, back pain. Wear for support, 08/09/21 10:06:00 EDT,Compound Start Date: 08/09/21 Status: Orderedcetirizine 10 mg oral tablet 1 tablet, By Mouth, Daily, PRN NEEDED FOR ALLERGIES, # 30 tablet, 0 Refills, [facility] STORE 99373, 165, cm, 02/15/22 10:35:00 EDT, Height, 90.7, [...] 12/25/21 14:04:00 EDT, Route to Pharmacy Electronically, [facility], Partial fill upon patient request [...] # 60 tablet, 0 Refills, Physician Stop, [facility] 32914, 165, cm, 02/15/22 10:35:00 EDT, Height, 90.7, [...] tablet, Refills 5, Route to Pharmacy Electronically, [facility] STORE 53106, 166, cm, 12/28/21 10:33:00 EDT, Height, 91.9, [...] Pharmacy Electronically, [facility]/pharmacy #[id number], Partial fill upon patient request if the [...] Health alf, active care Active [facility] [phone](Confirmed) Fatty infiltration of liver(Confirmed) Active Tubular adenoma of colon(Confirmed) Active Social History Social History Type Response Smoking Status Former smoker; Other: Quit 2 015; entered on: 09/10/17 Sex
--- OUTSIDE RECORDS SUMMARY | 2022-08-20 22:49 | XMS_ITS | Continuity of Care Document ---
:1970 Author Organization [facility] Address [address] [place] [address]- Care Team Providers Name Role Phone Dawna Hernandez MD Primary Care Physician [place] [facility] [id number] Date(s): 06/02/21 - 07/06/[address] [address] Attending Physician: Dawood Guerra Admitting Physician: Dawood Guerra Referring Physician: Dawood Guerra Allergies, Adverse Reactions, Alerts Substance Reaction Severity [...] 04/30/2010:59:00 EDT, Aerosol, Route to Pharmacy Electronically, [id number], [facility]/pharmacy #[id number], 165, cm, 04/30/20 10:31:00 EDT, Hei... [...] Refills, Maintenance, 01/20/21 16:26:00EDT, Tablet, [facility]/pharmacy #[id number], 164, cm, 01/20/21 15:43:00 EDT, Height, [...] tableta en la manana y noche x3ds. [place] katy tableta en la manana y tarde y antes de acostarse., # 90 capsule, Refills 1, Tot. Refills 1, Maintenan... Start Date: 01/18/21 Status: Orderedlidocaine 5% topical film 1 patch, Topically, Daily, PRN Pain , Moderate, # 10 patch, 0 Refills, Maintenance, 04/26/21 10:38:00 EDT, Patch, [facility], Partial fill upon patient request if the prescription is for a schedule II opioid drug., 1 patch Topically Daily,PRN:... Start Date: 04/26/21 Status: Orderedomeprazole 20 mg oral enteric coated capsule 1 capsule = 20 mg, By Mouth, Daily, # 30 capsule, 1 Refills, Maintenance, 12/14/20 10:57:00 EST, [facility]/pharmacy #[id number], Partial fill upon patient request if [...] Acute 07/11/21 16:54:00 EDT, 06/27/21 16:54:00 EDT, [facility]/pharmacy #4471, Partial fill upon patient request if [...] EDT, Route to Pharmacy Electronically, [facility]/pharmacy #4471, Partial fill upon patient request if [...] EDT, Route to Pharmacy Electronically, [facility]/pharmacy #[id number], Partial fill upon patient request if the [...] Health snf, active care Active [facility] [phone](Confirmed) Fatty infiltration of liver(Confirmed) Active Tubular adenoma of colon(Confirmed) Active Social History Social History Type Response Smoking Status Former smoker; Other: Quit 2 015; entered on: 09/10/17 Sex
--- OUTSIDE RECORDS SUMMARY | 2022-08-20 22:49 | XMS_ITS | Continuity of Care Document ---
:1970 Author Organization [facility] Address [address] [place] [address]- Care Team Providers Name Role Phone Dawna Hernandez MD Primary Care Physician Encounter [facility] [place] Date(s): 04/06/20 - 05/06/[address] [address] [facility] Attending Physician: Clifford Kim MD Admitting Physician: Clifford Kim MD Allergies, Adverse Reactions, Alerts Substance Reaction [...] 04/30/2010:59:00 EDT, Aerosol, Route to Pharmacy Electronically, [id number], [facility]/pharmacy #[id number], 165, cm, 04/30/20 10:31:00 EDT, Hei... Start Date: 04/30/20 Status: OrderedAlcohol Wipes See Instructions, # 1 box, Maintenance, please use before testing three times a day: dx type 2 diabetes, 04/04/18 18:52:53 EDT, Compound Start Date: 04/04/18 Status: Orderedatorvastatin 20 mg oral tablet 1 tablet = 20 mg, By Mouth, Daily, # 30 tablet, 5 Refills, Maintenance, 04/30/20 10:59:00 EDT, Tablet, [facility]/pharmacy #[id number], 165, cm, 04/30/20 10:31:00 EDT, [...] Refills, Maintenance, 11/20/19 12:00:00 EST, Tablet, [facility]/pharmacy #[id number], 165, cm, 11/20/19 11:16:00 EST, Height, 97.3, kg, 10/23/19 17:43:00 EST, Dry Weight Start Date: 11/20/19 Status: OrderedoxyCODONE 10 mg oral tablet 1 tablet = 10 mg, By Mouth, Every 6 hours, PRN as needed for pain, dx: M54.5 on agreement masspat checked do not fill til 05/06/20, # 20 tablet, 0 Refills, Maintenance, 05/06/20 10:54:00 EDT, Tablet, [facility]/pharmacy #4471, Partial fill upon patient re... Start Date: 05/06/20 Status: OrderedraNITIdine 75 mg oral tablet 1 tablet = 75 mg, By Mouth, Daily, # 28 tablet, 0 Refills, Maintenance, 04/30/20 10:58:00 EDT, Tablet, [facility]/pharmacy #[id number], 165, cm, 04/30/20 10:31:00 EDT, [...] alf, active care Active coordination PADMINI Mata [phone](Confirmed) Fatty infiltration of liver(Confirmed) Active Social History Social History Type Response Smoking Status Former smoker; Other: Quit 2 015; entered on: 09/10/17 Sex
--- OUTSIDE RECORDS SUMMARY | 2022-08-20 22:49 | XMS_ITS | Continuity of Care Document ---
:1970 Author Organization [facility] Address [address] [place] [address]- Care Team Providers Name Role Phone Dawna Hernandez MD Primary Care Physician Encounter [facility] [place] Date(s): 06/03/21 - 07/03/[address] [address] Allergies, Adverse Reactions, Alerts [...] 04/30/2010:59:00 EDT, Aerosol, Route to Pharmacy Electronically, [id number], [facility]/pharmacy #[id number], 165, cm, [...] tablet, 5 Refills, Maintenance, 01/20/21 16:26:00EDT, Tablet, [facility]/pharmacy #4471, 164, cm, 01/20/21 15:43:00 [...] 0 Refills, Maintenance, 01/20/21 16:26:00 EDT, Tablet, [facility]/pharmacy #4471, [...] tableta en la manana y noche x3ds. [place] katy tableta en la manana y tarde y antes de acostarse., # 90 capsule, Refills 1, Tot. Refills 1, Maintenan... Start Date: 01/18/21 Status: Orderedlidocaine 5% topical film 1 patch, Topically, Daily, PRN Pain , Moderate, # 10 patch, 0 Refills, Maintenance, 04/26/21 10:38:00 EDT, Patch, [facility]/pharmacy #6089, Partial fill upon patient request if the [...] Acute 07/11/21 16:54:00 EDT, 06/27/21 16:54:00 EDT, [facility]/pharmacy #4471, Partial fill [...] 05/20/21 16:26:00 EDT, Route to Pharmacy Electronically, [facility]/pharmacy #[id number], Partial fill [...] to Pharmacy Electronically, [facility]/pharmacy #[id number], Partial fill upon patient request if the [...] Health usp, active care Active coordination PADMINI [facility] [phone](Confirmed) Fatty infiltration of liver(Confirmed) Active Tubular adenoma of colon(Confirmed) Active Social History Social History Type Response Smoking Status Former smoker; Other: Quit 2 015; entered on: 09/10/17 Sex
--- OUTSIDE RECORDS SUMMARY | 2022-08-20 22:49 | XMS_ITS | Continuity of Care Document ---
:1970 Author Organization [facility] Address [address] [place] [address]- Care Team Providers Name Role Phone Daja MAYBERRY, Mirta Primary Care Physician [facility] Date(s): 12/13/21 - 01/12/[address] [address] Allergies, Adverse Reactions, Alerts Substance Reaction Severity Status lisinopril Angioedema Active Shrimp Active Immunizations Given and Recorded Vaccine Date Status Refusal Reason SARS-CoV-2 mRNA (jpxgrtr-plhv-odvvk) vax 12/28/21 Given influenza virus vaccine, inactivated [...] 04/30/2010:59:00 EDT, Aerosol, Route to Pharmacy Electronically, [id number], [id number], 165, cm, 04/30/20 10:31:00 EDT, [...] 10:36:00 EST, Tablet, [id number], RX in Georgian., 165, cm, 08/09/21 9:47:00 EDT, Height, 98.5, [...] EDT, Route to Pharmacy Electronically, [facility], Partial fill upon patient request if the prescription is for a sched... Start Date: 12/25/21 Status: Orderedlidocaine 5% topical film 1 patch, Topically, Daily, PRN Pain , Moderate, # 10 patch, 0 Refills, Maintenance, 04/26/21 10:38:00 EDT, Patch, [facility]/pharmacy #[id number], Partial fill upon patient request if the prescription is for a schedule II opioid drug., 1 patch Topically Daily,PRN:... Start Date: 04/26/21 Status: Orderednaproxen 500 mg oral tablet 1 tablet = 500 mg, By Mouth, 2 times a day, for 30 days, # 60 tablet, 0 Refills, Acute 01/27/22 10:52:00 EDT, 12/28/21 10:52:00 EDT, [facility] Partial fill upon patient request if theprescription is for a schedule II opioid drug., 1... Start Date: 12/28/21 Stop Date: 01/27/22 Status: Orderedomeprazole 20 mg oral enteric coated capsule 1 capsule = 20 mg, By Mouth, Daily, # 30 capsule, 1 Refills, Maintenance, 12/14/20 10:57:00 EST, [facility]/pharmacy #[id number], Partial fill upon patient request if [...] 12/25/21 14:05:00 EDT, REC Powder, [facility], Partial fill upon patient [...] tablet, Refills 5, Route to Pharmacy Electronically, [facility] STORE [facility], 166, cm, 12/28/21 10:33:00 EDT, Height, 91.9, [...] Route to Pharmacy Electronically, [facility]/pharmacy #[id number], Partial fill upon patient request if [...] longterm, active care Active coordination PADMINI Mata [phone](Confirmed) Fatty infiltration of liver(Confirmed) Active Tubular adenoma of colon(Confirmed) Active Social History Social History Type Response Smoking Status Former smoker; Other: Quit 2 015; entered on: 09/10/17 Sex
--- OUTSIDE RECORDS SUMMARY | 2022-08-20 22:49 | XMS_ITS | Continuity of Care Document ---
:1970 Author Organization [facility] Address [address] [place] [address]- Care Team Providers Name Role Phone Dawna Hernandez MD Primary Care Physician [facility] Date[facility]s): 06/14/20 - 07/14/[address] [address]- [facility] Allergies, Adverse Reactions, Alerts Substance Reaction Severity [...] 04/30/2010:59:00 EDT, Aerosol, Route to Pharmacy Electronically, [id number], [facility]/pharmacy #[id number], 165, cm, 04/30/20 10:31:00 [...] 5 Refills, Maintenance, 04/30/20 10:59:00 EDT, Tablet, [facility]/pharmacy #[id number], 165, cm, 04/30/20 10:31:00 [...] 5 Refills, Maintenance, 06/25/20 8:44:00 EDT, Tablet, [facility], 165, cm, 06/19/20 3:51:00 EDT, Height, 95.8, kg, 06/17/20 2:50:00 EDT, Dry Weight Start Date: 06/25/20 Status: OrderedHibiclens 4% soap 1 applicator, Topically, Daily, Please use to cleanse left knee daily when showering, # 960 mL, 0 Refills, Soft Stop, 06/20/20 14:06:00 EDT, [facility], 1 applicator Topically Daily,Instr:Please use to cleanse left knee daily when shower... Start Date: 06/20/20 Status: Orderedomeprazole 20 mg oral delayed release tablet 1 tablet = 20 mg, By Mouth, Daily, # 30 tablet, 2 Refills, Maintenance, 05/24/20 10:57:00 EDT, EC Tablet, [facility]/pharmacy #[id number], 165, cm, 05/06/20 10:29:00 EDT, Height, 95.8, kg, 04/19/20 14:48:00 EDT, Dry Weight Start Date: 05/24/20 Status: OrderedoxyCODONE 15 mg oral tablet 1 tablet = 15 mg, By Mouth, Every 6 hours, PRN as needed for pain, dx: M54.5 on agreement masspat checked do not fill til 06/28/20, # 28 tablet, 0 Refills, Maintenance, 06/25/20 9:26:00 EDT, Tablet, [facility]/pharmacy #[id number], Partial fill upon patient req... Start Date: 06/25/20 Status: OrderedraNITIdine 75 mg oral tablet 1 tablet = 75 mg, By Mouth, Daily, # 28 tablet, 0 Refills, Maintenance, 04/30/20 10:58:00 EDT, Tablet, [facility]/pharmacy #[id number], 165, cm, 04/30/20 10:31:00 [...] Health assisted, active care Active [facility] [phone](Confirmed) Fatty infiltration of liver(Confirmed) Active Social History Social History Type Response Smoking Status Former smoker; Other: Quit 2 015; entered on: 09/10/17 Sex
--- OUTSIDE RECORDS SUMMARY | 2022-08-20 22:49 | XMS_ITS | Continuity of Care Document ---
:1970 Author Organization [facility] Address [address] [place] [address]- Care Team Providers Name Role Phone Daja MAYBERRY, Mirta Primary Care Physician [place] [facility] [place] Date(s): 12/05/21 - 12/05/[address] [id number]- Discharge Disposition: A-D/C Home Attending Physician: River Coughlin DO Admitting Physician: River Coughlin DO Referring Physician: Not on Staff, Referring [...] 04/30/2010:59:00 EDT, Aerosol, Route to Pharmacy Electronically, [id number], [id number], 165, cm, 04/30/20 10:31:00 EDT, [...] 10:36:00 EST, Tablet, [id number], RX in Mexican., 165, cm, 08/09/21 9:47:00 EDT, Height, 98.5, [...] tableta en la manana y noche x3ds. [place] katy tableta en la manana y tarde y antes de acostarse., # 270 capsule, Refills 3, Tot. Refills 3, Maintena... Start Date: 08/09/21 Status: Orderedlidocaine 1.8% topical film 1 patch, Topically, Daily, PRN Pain , Mild, leave on up to 12 hours, # 30 each, 0 Refills, Maintenance, 12/05/21 14:55:00 EST, Film, [id number], Partial fill upon patient request if the prescription is for a schedule II opioid drug., 1 patch T... Start Date: 12/05/21 Status: Orderedlidocaine 5% topical film 1 patch, Topically, Daily, PRN Pain , Moderate, # 10 patch, 0 Refills, Maintenance, 04/26/21 10:38:00 EDT, Patch, [facility]/pharmacy #[id number], Partial fill upon patient [...] Instructions ReplaceRequired Details, Route to Pharmacy Electronically, [facility] STORE [id number], 165, cm, 06/02/21 12:44:00 EDT,Height, 92.8, kg, 05/19/21 23:20:00 EDT, Dry Weight Start Date: 08/02/21 Status: Orderedpropranolol 20 mg oral tablet 40 mg, 2, tablet, By Mouth, 2 times a day, # 120 tablet, Refills 1, Tot. Refills 1, Maintenance, 11/14/21 8:40:00 EST, Route to Pharmacy Electronically, [facility]/pharmacy #[id number], Partial fill upon patient [...] Maintenance,04/26/21 10:39:00 EDT, Route to Pharmacy Electronically, [facility]/pharmacy #[id number], Partial fill upon patient request if the prescription is for a schedule I... Start Date: 04/26/21 Stop Date: 05/03/21 Status: OrderedTylenol 8 Hour 650 mg oral tablet, extended release 2 tablet = 1,300 mg, By Mouth, Every 8 hours, PRN Pain , Mild, # 24 tablet, 0 Refills, Maintenance, 12/05/21 14:55:00 EST, ER Tablet, [facility]/pharmacy #[id number], Partial fill upon patient request if the [...] care facility, active care Active coordination PADMINI Nancy Esperanza [phone](Confirmed) Fatty infiltration of liver(Confirmed) Active Tubular adenoma of colon(Confirmed) Active Vital Signs Most recent to oldest [Reference Range]: 1 2 Oxygen Saturation [94-100 %] 98 % 100 % (12/05/21 3:02 PM) (12/05/21 12:44 PM) Pulse Rate [55-90 bpm] 86 bpm 95 bpm (12/05/21 3:02 PM) *H* (12/05/21 12:44 PM) Blood Pressure [90-138/55-84 mm Hg] 121/80 mm Hg 125/ 78 mm Hg (12/05/21 3:02 PM) (12/05/21 12:44 PM) Respiratory Rate [16-30 br/min] 18 br/min 18 br/mi n (12/05/21 3:02 PM) (12/05/21 12:44 PM) Temperature [96.8-100.4 DegF] 98.4 DegF (12/05/21 12:44 PM) Mode of Delivery (Oxygen) Room air Room air (12/05/21 3:02 PM) (12/05/21 12:44 PM) Blood pressure sites Arm, right Arm, right (12/05/21 3:02 PM) (12/05/21 12:44 PM) Temperature Route Oral (12/05/21 12:44 PM) Social History Social History Type Response Smoking Status Former smoker; Other: Quit 2 015; entered on: 09/10/17 Sex
--- OUTSIDE RECORDS SUMMARY | 2022-08-20 22:49 | XMS_ITS | Continuity of Care Document ---
:1970 Author Organization [facility] Address [address] [place] [address]- Care Team Providers Name Role Phone Dawna Hernandez MD Primary Care Physician [place] [facility] [place] [facility] [place] 02/15/21 - 03/17/[address] [address] Allergies, Adverse Reactions, Alerts Substance [...] 04/30/2010:59:00 EDT, Aerosol, Route to Pharmacy Electronically, [id number], [facility]/pharmacy #[id number], 165, cm, 04/30/20 10:31:00 EDT, Hei... [...] Maintenance, 01/20/21 16:26:00EDT, Tablet, [facility]/pharmacy #4471, 164, cm, 01/20/21 15:43:00 EDT, Height, [...] 0 Refills, Maintenance, 01/20/21 16:26:00 EDT, Tablet, [facility], Partial fill upon patient request if [...] tableta en la manana y noche x3ds. [place] katy tableta en la manana y tarde y antes de acostarse., # 90 capsule, Refills 1, Tot. Refills 1, Maintenan... Start Date: 01/18/21 Status: Orderedomeprazole 20 mg oral enteric coated capsule 1 capsule = 20 mg, By Mouth, Daily, # 30 capsule, 1 Refills, Maintenance, 12/14/20 10:57:00 EST, [facility]/pharmacy #5152, Partial fill upon patient request if the [...] Refills, Maintenance, 03/11/21 16:55:00 EDT, Tablet, [facility]/pharmacy #4471, Partial fill upon patient re... Start [...] Active Health assisted, active care Active coordination Netta Cruz [facility] [phone](Confirmed) Fatty infiltration of liver(Confirmed) Active Tubular adenoma of colon(Confirmed) Active Social History Social History Type Response Smoking Status Former smoker; Other: Quit 2 015; entered on: 09/10/17 Sex
--- OUTSIDE RECORDS SUMMARY | 2022-08-20 22:49 | XMS_ITS | Continuity of Care Document ---
:1970 Author Organization [facility] Address [address] [place] [address]- Care Team Providers Name Role Phone Dawna Hernandez MD Primary Care Physician [place] [facility] [id number] Date(s): 06/15/22 - 07/15/[address] [address] Attending Physician: Admtr, Ar8 Admitting Physician: Admtr, Ar8 Referring Physician: Admtr, [...] virus vaccine, inactivated 12/06/15 Given SARS-CoV-2 mRNA (dhmldfw-fndw-mjtnm) vax 01/26/22 Given SARS-CoV-2 mRNA (wbyshud-ooij-jfkra) vax 12/28/21 Given tetanus/diphtheria/pertussis, acel(Tdap) 03/29/19 Given tetanus/diphtheria/pertussis, acel(Tdap) 09/10/17 Given pneumococcal 23-valent vaccine 04/08/18 Recorded pneumococcal 23-valent vaccine 04/22/17 Recorded pneumococcal 23-valent vaccine 12/21/12 Given Medications albuterol CFC free 90 mcg/inh inhalation aerosol 2, puffs, Inhalation, Every 6 hours, PRN, # 1 each, Refills 6, Tot. Refills 6, Maintenance, 04/30/2010:59:00 EDT, Aerosol, Route to Pharmacy Electronically, [id number], [facility]/pharmacy #[id number], 165, cm, [...] 3 Refills, Maintenance, 05/11/22 14:22:00 EDT, Tablet, [facility]/pharmacy #4471, [...] tablet, 1 Refills, Maintenance, 04/05/22 7:53:00 EDT, [facility]/pharmacy #4471, 165, cm, 02/15/22 10:35:00 [...] 11 Refills, Maintenance, 06/15/22 17:40:00 EDT, Tablet, [facility]/pharmacy #0201, Partial fill upon patient request if the [...] 13:11:00 EDT, Supply Start Date: 02/15/22 Status: OrderedoxyCODONE 15 mg oral tablet 1 tablet = 15 mg, By Mouth, Every 6 hours, for 28 days, MassPAT checked, # 112 tablet, 0 Refills, Acute 08/10/22 9:46:00 EDT, 07/13/22 9:46:00 EDT, [facility]/pharmacy #6651, Partial fill upon patient requestif the prescription [...] Refills 5, Route to Pharmacy Electronically, [facility], 166, cm, 12/28/21 10:33:00 EDT, Height, 91.9, [...] Active Obstructive sleep Confirmed Active apnea Health fpc, Confirmed Active active care coordination On license of [facility] [phone] Fatty infiltration of Confirmed Active liver Tubular adenoma of Confirmed Active colon Social History Social History Type Response Smoking Status Former smoker; Other: Quit 2 015; entered on: 09/10/17 Sex Patient Care team information PersonnelName: Dawna Hernandez MD Address: Address: [address] [place] [address]
--- OUTSIDE RECORDS SUMMARY | 2022-08-20 22:49 | XMS_ITS | Continuity of Care Document ---
:1970 Author Organization [facility] Address [address] [place] [address]- Care Team Providers Name Role Phone Dawna Hernandez MD Primary Care Physician [facility]counter [facility] Date(s): 02/15/22 - 03/17/[address] [address] Allergies, Adverse Reactions, Alerts Substance Reaction Severity Status lisinopril Angioedema Active Shrimp Active Immunizations Given and Recorded Vaccine Date Status Refusal Reason influenza virus vaccine, inactivated 02/15/22 Given influenza virus vaccine, inactivated 09/01/20 Given influenza virus vaccine, inactivated 09/15/19 Given influenza virus vaccine, inactivated 11/19/18 Given influenza virus vaccine, inactivated 09/10/17 Given influenza virus vaccine, inactivated 12/06/15 Given SARS-CoV-2 mRNA (ncxcjsf-shww-vegai) vax 01/26/22 Given SARS-CoV-2 mRNA (aosxeql-vrhr-krvtt) vax 12/28/21 Given tetanus/diphtheria/pertussis, acel(Tdap) 03/29/19 Given tetanus/diphtheria/pertussis, acel(Tdap) 09/10/17 Given pneumococcal 23-valent vaccine 04/08/18 Recorded pneumococcal 23-valent vaccine 04/22/17 Recorded pneumococcal 23-valent vaccine 12/21/12 Given Medications albuterol CFC free 90 mcg/inh inhalation aerosol 2, puffs, Inhalation, Every 6 hours, PRN, # 1 each, Refills 6, Tot. Refills 6, Maintenance, 04/30/2010:59:00 EDT, Aerosol, Route to Pharmacy Electronically, [id number], [id number], 165, cm, 04/30/20 10:31:00 EDT, Hei... Start Date: 04/30/20 Status: OrderedAlcohol Wipes See Instructions, # 1 box, Maintenance, please use before testing three times a day: dx type 2 diabetes, 04/04/18 18:52:53 EDT, Compound Start Date: 04/04/18 Status: Orderedatorvastatin 20 mg oral tablet 1 tablet = 20 mg, By Mouth, Daily at bedtime, # 30 tablet, 5 Refills, Maintenance, 01/20/21 16:26:00EDT, Tablet, [facility]/pharmacy #[id number], 164, cm, 01/20/21 15:43:00 EDT, Height, 98, kg, 01/11/21 18:32:00 EDT, Dry Weight Start Date: 01/20/21 Status: OrderedBack Brace See Instructions, # 1 each, Maintenance, Dx DJD, back pain. Wear for support, 08/09/21 10:06:00 EDT,Compound Start Date: 08/09/21 Status: Orderedcetirizine 10 mg oral tablet 1 tablet, By Mouth, Daily, PRN NEEDED FOR ALLERGIES, # 30 tablet, 0 Refills, [facility] ST[facility] 68[facility], 165, cm, 02/15/22 10:35:00 EDT, Height, 90.7, [...] 12/25/21 14:04:00 EDT, Route to Pharmacy Electronically, [facility], Partial fill upon patient [...] # 60 tablet, 0 Refills, Physician Stop, [facility] STORE [id number], 165, cm, 02/15/22 10:35:00 EDT, Height, 90.7, kg, 02/06/22 19:49:00 EDT, Dry Weight Start Date: 02/27/22 Stop Date: 03/29/22 Status: Orderedomeprazole 20 mg oral enteric coated capsule 1 capsule = 20 mg, By Mouth, Daily, # 30 capsule, 1 Refills, Maintenance, 12/14/20 10:57:00 EST, [facility]/pharmacy #[id number], [...] Acute 04/07/22 16:25:00 EDT, 03/10/22 16:25:00 EDT, [facility]/pharmacy #[id number], Partial [...] tablet, Refills 5, Route to Pharmacy Electronically, [facility]ORE 91778, 166, cm, 12/28/21 10:33:00 EDT, Height, 91.9, [...] Maintenance,04/26/21 10:39:00 EDT, Route to Pharmacy Electronically, [facility]/pharmacy #[id number], Partial fill upon patient request if the [...] I(Confirmed) Active Obstructive sleep apnea(Confirmed) Active Health chcf, active care Active coordination PADMINI Mata [phone](Confirmed) Fatty infiltration of liver(Confirmed) Active Tubular adenoma of colon(Confirmed) Active Social History Social History Type Response Smoking Status Former smoker; Other: Quit 2 015; entered on: 09/10/17 Sex
--- OUTSIDE RECORDS SUMMARY | 2022-08-20 22:49 | XMS_ITS | Continuity of Care Document ---
:1970 Author Organization [facility] Address [address] [place] [address]- Care Team Providers Name Role Phone Dawna Hernandez MD Primary Care Physician [facility] R [id number] Date(s): 08/25/21 - 09/24/[address] [address] Attending Physician: AdmLori sandhu Admitting Physician: Admtr, [...] 04/30/2010:59:00 EDT, Aerosol, Route to Pharmacy Electronically, [id number], [facility]/pharmacy #[id number], 165, cm, 07/17/20 10:31:00 [...] tablet, 5 Refills, Maintenance, 01/20/21 16:26:00EDT, Tablet, [facility]/pharmacy #[id number], 164, cm, 01/20/21 15:43:00 [...] tableta en la manana y noche x3ds. [place] katy tableta en la manana y tarde y antes de acostarse., # 270 capsule, Refills 3, Tot. Refills 3, Maintena... Start Date: 08/09/21 Status: Orderedlidocaine 5% topical film 1 patch, Topically, Daily, PRN Pain , Moderate, # 10 patch, 0 Refills, Maintenance, 04/26/21 10:38:00 EDT, Patch, [id number], Partial fill upon patient request if the prescription is for a schedule II opioid drug., 1 patch Topically Daily,PRN:... Start Date: 04/26/21 Status: Orderedomeprazole 20 mg oral enteric coated capsule 1 capsule = 20 mg, By Mouth, Daily, # 30 capsule, 1 Refills, Maintenance, 12/14/20 10:57:00 EST, [facility]/pharmacy #[id number], Partial fill upon patient [...] Acute 09/29/21 17:44:00 EST, 09/15/21 17:44:00 EST, [facility]/pharmacy #[id number], Partial fill upon patient [...] Instructions ReplaceRequired Details, Route to Pharmacy Electronically, [facility] STORE 13382, 165, cm, 06/02/21 12:44:00 EDT,Height, 92.8, kg, 05/19/21 23:20:00 EDT, Dry Weight Start Date: 08/02/21 Status: Orderedpropranolol 20 mg oral tablet 40 mg, 2, tablet, By Mouth, 2 times a day, # 120 tablet, Refills 0, Tot. Refills 0, Maintenance, 08/02/21 15:46:00 EDT, Route to Pharmacy Electronically, [facility]/pharmacy #[id number], Partial fill upon patient [...] Maintenance,04/26/21 10:39:00 EDT, Route to Pharmacy Electronically, [facility]/pharmacy #4471, Partial fill upon patient [...] residential, active care Active coordination PADMINI Mata [phone](Confirmed) Fatty infiltration of liver(Confirmed) Active Tubular adenoma of colon(Confirmed) Active Social History Social History Type Response Smoking Status Former smoker; Other: Quit 2 015; entered on: 09/10/17 Sex
--- OUTSIDE RECORDS SUMMARY | 2022-08-20 22:49 | XMS_ITS | Continuity of Care Document ---
:1970 Author Organization [facility] Address [address] [place] [address]- Care Team Providers Name Role Phone Dawna Hernandez MD Primary Care Physician [facility] Date(s): 03/15/21 - 04/14/[address] [address] Allergies, Adverse Reactions, Alerts Substance Reaction Severity [...] 04/30/2010:59:00 EDT, Aerosol, Route to Pharmacy Electronically, [id number], [facility]/pharmacy #4471, 165, cm, 04/30/20 [...] tableta en la manana y noche x3ds. [place] katy tableta en la manana y tarde [...] home, active care Active coordination PADMINI Mata [phone](Confirmed) Fatty infiltration of liver(Confirmed) Active Tubular adenoma of colon(Confirmed) Active Social History Social History Type Response Smoking Status Former smoker; Other: Quit 2 015; entered on: 09/10/17 Sex
--- OUTSIDE RECORDS SUMMARY | 2022-08-20 22:49 | XMS_ITS | Continuity of Care Document ---
:1970 Author Organization [facility] Address [address] [place] [address]- Care Team Providers Name Role Phone Daja MAYBERRY, Mirta Primary Care Physician [facility]counter [facility] Date(s): 11/14/21 - 12/14/[address] [address] Allergies, Adverse Reactions, Alerts Substance [...] 04/30/2010:59:00 EDT, Aerosol, Route to Pharmacy Electronically, [id number], [facility]/pharmacy #[id number], 165, cm, 04/30/20 10:31:00 EDT, [...] 10:36:00 EST, Tablet, [id number], RX in [place]ian., 165, cm, 08/09/21 9:47:00 EDT, Height, 98.5, [...] tableta en la manana y noche x3ds. [place] katy tableta en la manana y tarde y antes de acostarse., # 270 capsule, Refills 3, Tot. Refills 3, Maintena... Start Date: 08/09/21 Status: Orderedlidocaine 1.8% topical film 1 patch, Topically, Daily, PRN Pain , Mild, leave on up to 12 hours, # 30 each, 0 Refills, Maintenance, 12/05/21 14:55:00 EST, Film, [facility]/pharmacy #[id number], Partial fill upon patient request if the [...] 1 Refills, Maintenance, 12/14/20 10:57:00 EST, [facility]/pharmacy #4471, Partial fill upon patient request [...] ReplaceRequired Details, Route to Pharmacy Electronically, [facility] ST[facility] 70231, 165, cm, 06/02/21 12:44:00 EDT,Height, 92.8, kg, 05/19/21 23:20:00 EDT, Dry Weight Start Date: 08/02/21 Status: Orderedpropranolol 20 mg oral tablet 40 mg, 2, tablet, By Mouth, 2 times a day, # 120 tablet, Refills 1, Tot. Refills 1, Maintenance, 11/14/21 8:40:00 EST, Route to Pharmacy Electronically, [facility]/pharmacy #4471, Partial fill upon patient request [...] 10:39:00 EDT, Route to Pharmacy Electronically, [facility]/pharmacy #4471, Partial fill upon patient request if the prescription is for a schedule I... Start Date: 04/26/21 Stop Date: 05/03/21 Status: OrderedTylenol 8 Hour 650 mg oral tablet, extended release 2 tablet = 1,300 mg, By Mouth, Every 8 hours, PRN Pain , Mild, # 24 tablet, 0 Refills, Maintenance, 12/05/21 14:55:00 EST, ER Tablet, [facility]/pharmacy #4471, Partial fill upon patient request [...] correction, active care Active coordination PADMINI Mata [phone](Confirmed) Fatty infiltration of liver(Confirmed) Active Tubular adenoma of colon(Confirmed) Active Social History Social History Type Response Smoking Status Former smoker; Other: Quit 2 015; entered on: 09/10/17 Sex
--- OUTSIDE RECORDS SUMMARY | 2022-08-20 22:49 | XMS_ITS | Continuity of Care Document ---
:1970 Author Organization [address], [address] [place] [address]- Care Team Providers Name Role Phone Daja MAYBERRY, Mirta Primary Care Physician Encounter [facility] Date(s): 12/28/21 - 01/27/[address], [address] [place], [place] [address] Allergies, Adverse Reactions, Alerts Substance Reaction Severity Status lisinopril Angioedema Active Shrimp Active Immunizations Given and Recorded Vaccine Date Status Refusal Reason SARS-CoV-2 mRNA (fsksnwo-oiwc-jxfma) vax 01/26/22 Given SARS-CoV-2 mRNA (muipnnu-rhyd-rdrzl) vax 12/28/21 Given influenza virus vaccine, inactivated [...] 04/30/2010:59:00 EDT, Aerosol, Route to Pharmacy Electronically, [id number], [id number], 165, cm, 04/30/20 10:31:00 EDT, [...] 15:54:00 EDT, Tablet, [id number], RX in [place]., 166, cm, 01/26/22 9:18:00 EDT, Height, 93.1, [...] EDT, Route to Pharmacy Electronically, [facility], Partial fill upon patient request if the prescription is for a sched... Start Date: 12/25/21 Status: Orderedlidocaine 5% topical film 1 patch, Topically, Daily, PRN Pain , Moderate, # 10 patch, 0 Refills, Maintenance, 04/26/21 10:38:00 EDT, Patch, [facility]acy #3251, Partial fill upon patient request if the prescription is for a schedule II opioid drug., 1 patch Topically Daily,PRN:... Start Date: 04/26/21 Status: Orderednaproxen 500 mg oral tablet 1 tablet, By Mouth, 2 times a day, for 30 days, # 60 tablet, 0 Refills, Physician Stop, [facility], 166, cm, 12/28/21 10:33:00 EDT, Height, 91.9, kg, 12/19/21 12:48:00 EST, Dry Weight Start Date: 01/19/22 Stop Date: 02/18/22 Status: Orderedomeprazole 20 mg oral enteric coated capsule 1 capsule = 20 mg, By Mouth, Daily, # 30 capsule, 1 Refills, Maintenance, 12/14/20 10:57:00 EST, [facility] #[id number], Partial fill upon patient request if the prescription is for a schedule II opioid drug., 165, cm, 12/09/20 14:35:00 EST, Height, 90.5,... Start Date: 12/14/20 Stop Date: 02/12/21 Status: OrderedoxyCODONE 15 mg oral tablet 1 tablet = 15 mg, By Mouth, Every 6 hours, for 28 days, MassPAT checked, # 112 tablet, 0 Refills, Acute 02/23/22 15:56:00 EDT, 01/26/22 15:56:00 EDT, [id number], Partial fill upon patient request if [...] Refills, Maintenance, 12/25/21 14:05:00 EDT, REC Powder, [facility], Partial fill upon patient request [...] tablet, Refills 5, Route to Pharmacy Electronically, [facility], 166, cm, 12/28/21 10:33:00 EDT, Height, 91.9, [...] Maintenance,04/26/21 10:39:00 EDT, Route to Pharmacy Electronically, [facility] #[id number], Partial fill upon patient request if the [...] I(Confirmed) Active Obstructive sleep apnea(Confirmed) Active Health residential, active care Active coordination PADMINI Cruz [facility] [phone](Confirmed) Fatty infiltration of liver(Confirmed) Active Tubular adenoma of colon(Confirmed) Active Social History Social History Type Response Smoking Status Former smoker; Other: Quit 2 015; entered on: 09/10/17 Sex
--- OUTSIDE RECORDS SUMMARY | 2022-08-20 22:49 | XMS_ITS | Continuity of Care Document ---
:1970 Author Organization [facility] Address [address] [place] [address]- Care Team Providers Name Role Phone Dawna Hernandez MD Primary Care Physician Encounter [facility] Date(s): 06/24/21 - 07/24/[address] [address] Allergies, Adverse Reactions, Alerts Substance [...] 04/30/2010:59:00 EDT, Aerosol, Route to Pharmacy Electronically, [id number], [facility]acy #[id number], 165, cm, 04/30/20 10:31:00 EDT, Hei... Start Date: 04/30/20 Status: OrderedAlcohol Wipes See Instructions, # 1 box, Maintenance, please use before testing three times a day: dx type 2 diabetes, 04/04/18 18:52:53 EDT, Compound Start Date: 04/04/18 Status: Orderedatorvastatin 20 mg oral tablet 1 tablet = 20 mg, By Mouth, Daily at bedtime, # 30 tablet, 5 Refills, Maintenance, 01/20/21 16:26:00EDT, Tablet, [facility]/pharmacy #[id number], 164, cm, 01/20/21 15:43:00 EDT, Height, [...] 0 Refills, Maintenance, 01/20/21 16:26:00 EDT, Tablet, [facility]/pharmacy #[id number], Partial fill upon patient request if [...] tableta en la manana y noche x3ds. [place] katy tableta en la manana y tarde y antes de acostarse., # 90 capsule, Refills 1, Tot. Refills 1, Maintenan... Start Date: 01/18/21 Status: Orderedlidocaine 5% topical film 1 patch, Topically, Daily, PRN Pain , Moderate, # 10 patch, 0 Refills, Maintenance, 04/26/21 10:38:00 EDT, Patch, [facility]/pharmacy #0829, Partial fill upon patient request if the prescription is for a schedule II opioid drug., 1 patch Topically Daily,PRN:... Start Date: 04/26/21 Status: Orderedomeprazole 20 mg oral enteric coated capsule 1 capsule = 20 mg, By Mouth, Daily, # 30 capsule, 1 Refills, Maintenance, 12/14/20 10:57:00 EST, [facility]/pharmacy #[id number], Partial fill upon patient request if [...] 05/20/21 16:26:00 EDT, Route to Pharmacy Electronically, [facility]/pharmacy #[id number], Partial fill upon patient request if [...] Maintenance,04/26/21 10:39:00 EDT, Route to Pharmacy Electronically, [facility]/pharmacy #3228, Partial fill upon patient request if the [...] skilled nursing, active care [facility] [phone](Confirmed) Fatty infiltration of liver(Confirmed) Active Tubular adenoma of colon(Confirmed) Active Social History Social History Type Response Smoking Status Former smoker; Other: Quit 2 015; entered on: 09/10/17 Sex
--- OUTSIDE RECORDS SUMMARY | 2022-08-20 22:49 | XMS_ITS | Continuity of Care Document ---
:1970 Author Organization [facility] Address [address] [place] [address]- Care Team Providers Name Role Phone Dawna Hernandez MD Primary Care Physician Encounter [facility] Date(s): 05/07/20 - 06/06/[address] [address]- [facility] Allergies, Adverse Reactions, Alerts Substance [...] 04/30/2010:59:00 EDT, Aerosol, Route to Pharmacy Electronically, [id number], [facility]/pharmacy #[id number], 165, cm, 04/30/20 10:31:00 EDT, [...] 5 Refills, Maintenance, 11/20/19 12:00:00 EST, Tablet, [facility]/pharmacy #[id number], 165, cm, 11/20/19 11:16:00 EST, Height, 97.3, kg, 10/23/19 17:43:00 EST, Dry Weight Start Date: 11/20/19 Status: Orderedomeprazole 20 mg oral delayed release tablet 1 tablet = 20 mg, By Mouth, Daily, # 30 tablet, 2 Refills, Maintenance, 05/24/20 10:57:00 EDT, EC Tablet, [facility]/pharmacy #[id number], 165, cm, 05/06/20 10:29:00 EDT, Height, 95.8, kg, 04/19/20 14:48:00 EDT, Dry Weight Start Date: 05/24/20 Status: OrderedoxyCODONE 10 mg oral tablet 1 tablet = 10 mg, By Mouth, Every 6 hours, PRN as needed for pain, dx: M54.5 on agreement masspat checked do not fill til 05/25/20, # 20 tablet, 0 Refills, Maintenance, 05/25/20 13:50:00 EDT, Tablet, [facility], Partial fill upon cedric... Start Date: 05/25/20 Status: OrderedraNITIdine 75 mg oral tablet 1 tablet = 75 mg, By Mouth, Daily, # 28 tablet, 0 Refills, Maintenance, 04/30/20 10:58:00 EDT, Tablet, [facility]/pharmacy #[id number], 165, cm, 04/30/20 10:31:00 EDT, [...] Health half-way, active care Active [facility] [phone](Confirmed) Fatty infiltration of liver(Confirmed) Active Social History Social History Type Response Smoking Status Former smoker; Other: Quit 2 015; entered on: 09/10/17 Sex
--- OUTSIDE RECORDS SUMMARY | 2022-08-20 22:49 | XMS_ITS | Continuity of Care Document ---
:1970 Author Organization [facility] Address [address] [place] [address]- Care Team Providers Name Role Phone Dawna Hernandez MD Primary Care Physician Encounter [facility] Date(s): 01/17/21 - 02/16/[address] [address] Allergies, Adverse Reactions, Alerts Substance [...] 04/30/2010:59:00 EDT, Aerosol, Route to Pharmacy Electronically, [id number], [id number], 165, cm, 04/30/20 10:31:00 EDT, [...] tableta en la manana y noche x3ds. [place] katy tableta en la manana y tarde y antes de acostarse., # 90 capsule, Refills 1, Tot. Refills 1, Maintenan... Start Date: 01/18/21 Status: Orderedomeprazole 20 mg oral enteric coated capsule 1 capsule = 20 mg, By Mouth, Daily, # 30 capsule, 1 Refills, Maintenance, 12/14/20 10:57:00 EST, [facility]/pharmacy #[id number], Partial fill upon patient request if the prescription is for a schedule II opioid drug., 165, cm, 12/09/20 14:35:00 EST, Height, 90.5,... Start Date: 12/14/20 Stop Date: 02/12/21 Status: OrderedoxyCODONE 15 mg oral tablet 1 tablet = 15 mg, By Mouth, Every 6 hours, PRN as needed for pain, dx: M54.5 on agreement masspat checked do not fill til 01/31/21, # 56 tablet, 0 Refills, Maintenance, 02/09/21 16:42:00 EDT, Tablet, [facility]/pharmacy #[id number], Partial fill upon patient re... Start Date: 02/09/21 Stop Date: 02/23/21 Status: OrderedPAP Supplies - Mask, Tubing, Filters, [...] detention, active care Active coordination PADMINI Mata [phone](Confirmed) Fatty infiltration of liver(Confirmed) Active Tubular adenoma of colon(Confirmed) Active Social History Social History Type Response Smoking Status Former smoker; Other: Quit 2 015; entered on: 09/10/17 Sex
--- OUTSIDE RECORDS SUMMARY | 2022-08-20 22:49 | XMS_ITS | Continuity of Care Document ---
:1970 Author Organization [facility] Address [address] [place] [address]- Care Team Providers Name Role Phone Mary RAWLS, Dawna Primary Care Physician Encounter [facility] Date(s): 08/15/21 - 04/20/[address] [address] Discharge Disposition: A-D/C Home Attending Physician: Dawna [...] virus vaccine, inactivated 12/06/15 Given SARS-CoV-2 mRNA (rabnlqp-zsqk-rblrm) vax 01/26/22 Given SARS-CoV-2 mRNA (trhphar-ywpu-edria) vax 12/28/21 Given tetanus/diphtheria/pertussis, acel(Tdap) 03/29/19 Given tetanus/diphtheria/pertussis, acel(Tdap) 09/10/17 Given pneumococcal 23-valent vaccine 04/08/18 Recorded pneumococcal 23-valent vaccine 04/22/17 Recorded pneumococcal 23-valent vaccine 12/21/12 Given Medications albuterol CFC free 90 mcg/inh inhalation aerosol 2, puffs, Inhalation, Every 6 hours, PRN, # 1 each, Refills 6, Tot. Refills 6, Maintenance, 04/30/2010:59:00 EDT, Aerosol, Route to Pharmacy Electronically, [id number], [facility]/pharmacy #[id number], 165, cm, 04/30/20 10:31:00 [...] tablet, 5 Refills, Maintenance, 01/20/21 16:26:00EDT, Tablet, [facility]/pharmacy #[id number], 164, cm, 01/20/21 15:43:00 [...] tablet, 1 Refills, Maintenance, 04/05/22 7:53:00 EDT, [facility]/pharmacy #[id number], 165, cm, 02/15/22 10:35:00 [...] 14:04:00 EDT, Route to Pharmacy Electronically, [facility], Partial fill [...] # 60 tablet, 0 Refills, Physician Stop, [facility], 165, cm, 02/15/22 10:35:00 EDT, Height, 90.7, [...] tablet, Refills 5, Route to Pharmacy Electronically, [facility] 98[facility], 166, cm, 12/28/21 10:33:00 EDT, Height, 91.9, [...] [facility], active care Active coordination PADMINI Mata [phone](Confirmed) Fatty infiltration of liver(Confirmed) Active Tubular adenoma of colon(Confirmed) Active Social History Social History Type Response Smoking Status Former smoker; Other: Quit 2 015; entered on: 09/10/17 Sex
--- OUTSIDE RECORDS SUMMARY | 2022-08-20 22:49 | XMS_ITS | Continuity of Care Document ---
:1970 Author Organization [facility] Address [address] [place] [address]- Care Team Providers Name Role Phone Dawna Hernandez MD Primary Care Physician Encounter [facility] Date(s): 07/11/22 - 08/10/[address] [address] Allergies, Adverse Reactions, Alerts Substance Reaction Severity Status lisinopril Angioedema Active Shrimp Active Immunizations Given and Recorded Vaccine Date Status Refusal Reason influenza virus vaccine, inactivated 02/15/22 Given influenza virus vaccine, inactivated 09/01/20 Given influenza virus vaccine, inactivated 09/15/19 Given influenza virus vaccine, inactivated 11/19/18 Given influenza virus vaccine, inactivated 09/10/17 Given influenza virus vaccine, inactivated 12/06/15 Given SARS-CoV-2 mRNA (jvkdwgl-exnh-jzdan) vax 01/26/22 Given SARS-CoV-2 mRNA (dbuxfev-rtvg-rfevi) vax 12/28/21 Given tetanus/diphtheria/pertussis, acel(Tdap) 03/29/19 Given tetanus/diphtheria/pertussis, acel(Tdap) 09/10/17 Given pneumococcal 23-valent vaccine 04/08/18 Recorded pneumococcal 23-valent vaccine 04/22/17 Recorded pneumococcal 23-valent vaccine 12/21/12 Given Medications albuterol CFC free 90 mcg/inh inhalation aerosol 2, puffs, Inhalation, Every 6 hours, PRN, # 1 each, Refills 6, Tot. Refills 6, Maintenance, 08/07/2217:48:00 EDT, Aerosol, Route to Pharmacy Electronically, [id number], [id number], 165, cm, 08/02/22 5:50:00 EDT, [place]... Start Date: 08/07/22 Status: OrderedAlcohol Wipes See Instructions, # 1 box, Maintenance, please use before testing three times a day: dx type 2 diabetes, 04/04/18 18:52:53 EDT, Compound Start Date: 04/04/18 Status: Orderedatorvastatin 40 mg oral tablet 1 tablet = 40 mg, By Mouth, Daily, # 90 tablet, 3 Refills, Maintenance, 05/11/22 14:22:00 EDT, Tablet, [facility]/pharmacy #[id number], [...] 1 Refills, Maintenance, 04/05/22 7:53:00 EDT, [facility]/pharmacy #[id number], 165, cm, 02/15/22 10:35:00 [...] Refills, Maintenance, 06/15/22 17:40:00 EDT, Tablet, [facility]/pharmacy #8801, Partial fill upon patient request if the [...] patch, 0 Refills, Maintenance, 07/20/22 15:26:00 EDT, [facility], 10, APPLY 1 PATCH DAILY NEEDED FOR MODERATE PAIN..REMOVE AFTER 12... Start Date: 07/20/22 Status: OrderedPAP Supplies - Mask, Tubing, Filters, [...] tablet, Refills 5, Route to Pharmacy Electronically, [facility], 166, cm, 12/28/21 10:33:00 EDT, Height, 91.9, [...] Active Obstructive sleep Confirmed Active apnea Health senior care, Confirmed Active active care coordination [facility] [phone] Fatty infiltration of Confirmed Active liver Tubular adenoma of Confirmed Active colon Social History Social History Type Response Smoking Status Former smoker; Other: Quit 2 015; entered on: 09/10/17 Sex Patient Care team information PersonnelName: Dawna Hernandez MD Address: Address: [address] [place] [address] [[email or web address]]
--- OUTSIDE RECORDS SUMMARY | 2022-08-20 22:50 | XMS_ITS | Continuity of Care Document ---
:1970 Author Organization [facility] Address [address] [place] [address]- Care Team Providers Name Role Phone Dawna Hernandez MD Primary Care Physician Encounter [facility] Date(s): 10/24/19 - 11/03/[address] [address] [place] Attending Physician: Lori Patton Admitting Physician: [...] Maintenance, 189:52:06, Aerosol, Route to Pharmacy Electronically, [id number], [facility], Compound Start Date: 11/21/17 Status: OrderedAlcohol Wipes [...] 0 Refills, Maintenance, 10/29/19 9:49:00 EST, Capsule, [id number], 165, cm, 10/24/19 14:26:00 EST, [...] days, # 21 tablet, 0 Refills, Acute 11/05/19 9:49:00EST, 10/29/19 9:49:00 EST, Tablet, [facility]/pharmacy #[id number], 165, cm, 10/24/19 14:26:00 EST, Height, 97.3,kg, 10/23/19 17:43:00 EST, Dry Weight Start Date: 10/29/19 Stop Date: 11/05/19 Status: Orderedfamotidine 20 mg oral tablet 20 mg, 1, tablet, By Mouth, Daily at bedtime, # 30 tablet, Refills 0, Tot. Refills 0, Maintenance, 10/29/19 9:49:00 EST, Route to Pharmacy Electronically, [facility]/pharmacy #[id number], 165, cm, 10/24/19 14:26:00EST, Height, 97.3, [...] 10/29/19 9:49:00 EST, [id number], cm, 10/24/19 14:26:00 EST, Height, [...] 10/29/19 9:49:00 EST, Route to Pharmacy Electronically, [facility]/pharmacy #[id number], 165, cm, 10/24/19 14:26:00 EST, Height, 97.3, kg, 01... Start Date: 10/29/19 Status: OrderedHoker See Instructions, # 1 units, [...] halfway, active care Active coordination PADMINI Mata [phone](Confirmed) Poor historian(Confirmed) Active Septic prepatellar bursitis of right Active knee(Confirmed) Septic prepatellar bursitis of left Active knee(Confirmed) Fatty infiltration of liver(Confirmed) Active Social History Social History Type Response Smoking Status Former smoker; Other: Quit 2 015; entered on: 09/10/17 Sex
--- OUTSIDE RECORDS SUMMARY | 2022-08-20 22:50 | XMS_ITS | Continuity of Care Document ---
:1970 Author Organization [facility] Address [address] [place] [address]- Care Team Providers Name Role Phone Dawna Hernandez MD Primary Care Physician Encounter [facility] Date(s): 12/28/19 - 12/28/[address] [address] Discharge Disposition: A-D/C Home Attending Physician: Onel Gerber DO Admitting Physician: Onel Gerber DO Referring Physician: Not on Staff, Referring [...] Maintenance, 189:52:06, Aerosol, Route to Pharmacy Electronically, [id number], [facility] [address], Compound Start Date: 11/21/17 Status: OrderedAlcohol Wipes See Instructions, # 1 box, Maintenance, please use before testing three times a day: dx type 2 diabetes, 04/04/18 18:52:53 EDT, Compound Start Date: 04/04/18 Status: Orderedatorvastatin 20 mg oral tablet 1 tablet = 20 mg, By Mouth, Daily, # 30 tablet, 5 Refills, Maintenance, 10/29/19 9:49:00 EST, Tablet, [facility]/pharmacy #4471, 165, cm, 10/24/19 14:26:00 EST, [...] Daily at bedtime, # 30 tablet, Refills 3, Tot. Refills 3, Maintenance, 12/23/19 10:06:00 EDT, Route to Pharmacy Electronically, [facility]/pharmacy #[id number], 165, cm, 12/23/19 9:38:00EDT, Height, 93.2, kg, 12/17/19 11:27:00 EST, Dry... Start Date: 12/23/19 Status: OrderedFLUoxetine 20 mg oral capsule 60 [...] Refills, Maintenance, 11/20/19 12:00:00 EST, Tablet, [facility]/pharmacy #[id number], 165, cm, 11/20/19 11:16:00 EST, Height, 97.3, kg, 10/23/19 17:43:00 EST, Dry Weight Start Date: 11/20/19 Status: OrderedNaprosyn 500 mg oral tablet 1 tablet = 500 mg, By Mouth, 2 times a day, # 60 tablet, 1 Refills, Maintenance, 11/20/19 11:59:00 EST, Tablet, [facility]/pharmacy #[id number], 165, cm, 11/20/19 11:16:00 EST, Height, 97.3, kg, 10/23/19 17:43:00 EST, Dry Weight Start Date: 11/20/19 Status: OrderedPriLOSEC OTC 20 mg oral delayed release tablet 1 tablet = 20 mg, By Mouth, 2 times a day, # 30 tablet, 0 Refills, Maintenance, 12/23/19 10:09:00 EDT, EC Tablet, [facility]/pharmacy #[id number], 165, cm, 12/23/19 9:38:00 EDT, Height, 93.2, kg, 12/17/19 11:27:00 EST, Dry Weight Start Date: 12/23/19 Status: OrderedrisperiDONE 1 mg oral tablet 1 [...] 12/23/19 10:09:00 EDT, Route to Pharmacy Electronically, [facility]/pharmacy #[id number], 165, cm, 12/23/19 9:38:00 EDT, Height, 93.2, kg, 03... Start Date: 12/23/19 Stop Date: 01/02/20 Status: OrderedWalker See Instructions, # 1 units, Maintenance, Use as dircted, 07/05/19 14:32:18 EDT, Compound Start Date: 07/05/19 Status: OrderedZofran ODT 4 mg oral tablet, disintegrating 1 tablet = 4 mg, By Mouth, Every 8 hours, PRN as needed for nausea/vomiting, allow tablet to dissolve on tongue, # 10 tablet, 0 Refills, Maintenance, 12/28/19 13:59:00 EDT, DIS Tablet, [facility]/pharmacy #[id number], 165, cm, 12/23/19 9:38:00 EDT, Height, 93.2, k... Start Date: 12/28/19 Status: Ordered Problem List Condition Effective Dates Status Health Status Informant Cellulitis of knee, right(Confirmed) Active Chest pain(Confirmed) Active Chest pain(Confirmed) Active Diabetes(Confirmed) Active GERD (gastroesophageal reflux Active disease)(Confirmed) Hyperlipidemia(Confirmed) Active Lower back pain(Confirmed) Active Obstructive sleep apnea(Confirmed) Active Health alf, active care Active coordination PADMINI Cruz [facility] [phone](Confirmed) Septic prepatellar bursitis of right Active knee(Confirmed) Septic prepatellar bursitis of left Active knee(Confirmed) Fatty infiltration of liver(Confirmed) Active Vital Signs Most recent to oldest 1 2 3 [Reference Range]: Oxygen Saturation [94-100 %] 100 % 100 % 99 % (12/28/19 1:50 PM) (12/28/19 10:21 AM) (12/28/19 7: 59 AM) Pulse Rate [55-90 bpm] 80 bpm 76 bpm 75 bpm (12/28/19 1:50 PM) (12/28/19 10:21 AM) (12/28/19 7: 59 AM) Blood Pressure [90-138/55-84 126/80 mm Hg 134/82 mm Hg 126 /76 mm Hg mm Hg] (12/28/19 1:50 PM) (12/28/19 10:21 AM) (12/28/19 7: 59 AM) Respiratory Rate [16-30 18 br/min 18 br/min 18 br/mi n br/min] (12/28/19 1:50 PM) (12/28/19 10:47 AM) (12/28/19 10 :21 AM) Temperature [96.8-100.4 DegF] 97.6 DegF 97.6 DegF (12/28/19 7:59 AM) (12/28/19 4:54 AM) Liters per Minute 0 L/min 0 L/min 0 L/min (12/28/19 1:50 PM) (12/28/19 10:21 AM) (12/28/19 7: 59 AM) Mode of Delivery (Oxygen) Room air Room air Room a ir (12/28/19 1:50 PM) (12/28/19 10:21 AM) (12/28/19 7: 59 AM) Blood pressure sites Arm, left Arm, left Arm, left (12/28/19 1:50 PM) (12/28/19 10:21 AM) (12/28/19 7: 59 AM) Temperature Route Oral Oral (12/28/19 7:59 AM) (12/28/19 4:54 AM) Social History Social History Type Response Smoking Status Former smoker; Other: Quit 2 015; entered on: 09/10/17 Sex
--- OUTSIDE RECORDS SUMMARY | 2022-08-20 22:50 | XMS_ITS | Continuity of Care Document ---
:1970 Author Organization [facility] Address [address] [place] [id number]- Care Team Providers Name Role Phone Dawna Hernandez MD Primary Care Physician Encounter [facility] [place] Date(s): 04/19/21 - 04/26/[address] [address] Discharge Disposition: A-D/C Home Attending Physician: Nitza RAWLS, Vicky Ghotra Admitting Physician: Kulwant RAWLS, Lou Lynne Referring Physician: Not on Staff, Referring MD [...] acetaminophen 325 mg oral tablet 650 mg, Tablet, By Mouth, 04/26/21 8:00:00 EDT Start Date: 04/26/21 Stop Date: 04/26/21 Status: CompletedAerochamber See Instructions, # 1 each, Maintenance, as instructed, 11/21/17 9:52:57, Compound Start Date: 11/21/17 Status: Orderedalbuterol CFC free 90 mcg/inh inhalation aerosol 2, puffs, Inhalation, Every 6 hours, PRN, # 1 each, Refills 6, Tot. Refills 6, Maintenance, 04/30/2010:59:00 EDT, Aerosol, Route to Pharmacy Electronically, [id number], [facility]/pharmacy #[id number], 165, cm, 04/30/20 10:31:00 [...] 5 Refills, Maintenance, 01/20/21 16:26:00EDT, Tablet, [facility]/pharmacy #[id number], 164, cm, 01/20/21 15:43:00 [...] Refills, Maintenance, 01/20/21 16:26:00 EDT, Tablet, [facility]/pharmacy #[id number], Partial fill upon patient request if the prescription is for a schedule II opioid drug., 164, cm, 01/20/21 15:43:00 EDT, Height,... Start Date: 01/20/21 Status: Orderedclindamycin 150 mg oral capsule 3 capsule = 450 mg, By Mouth, Every 8 hours, for 26 days, # 234 capsule, 0 Refills, Acute 05/22/21 10:37:00 EDT, 04/26/21 10:37:00 EDT, Capsule, [facility]/pharmacy #[id number], Partial fill upon patient request ifthe [...] 05/22/21 10:41:00 EDT, 04/26/21 10:41:00 EDT, [facility]/pharmacy #[id number], Partial fill upon patient request if the [...] oral capsule 300 mg, Capsule, By Mouth, 04/26/21 9:00:00 EDT Start Date: 04/26/21 Stop Date: 04/26/21 Status: Completedgabapentin 300 mg oral capsule 300 mg, 1, capsule, By Mouth, 3 times a day, Empieza con katy tableta en la noche x3ds. Despues, tomeuna tableta en la manana y noche x3ds. [place] katy tableta en la manana y tarde [...] Daily,PRN:... Start Date: 04/26/21 Status: OrderedMorPHINE Inj 3 mg, Injection, IV Push Slowly, Every 4 hours, PRN for Pain , Severe, Routine, 04/19/21 6:22:00 EDT Start Date: 04/19/21 Stop Date: 04/26/21 Status: Discontinuedomeprazole 20 mg oral enteric coated capsule 1 capsule = 20 mg, By Mouth, Daily, # 30 capsule, 1 Refills, Maintenance, 12/14/20 10:57:00 EST, [facility]/pharmacy #[id number], Partial fill upon patient request if the prescription is for a schedule II opioid drug., 165, cm, 12/09/20 14:35:00 EST, Height, 90.5,... Start Date: 12/14/20 Stop Date: 02/12/21 Status: OrderedoxyCODONE 5 mg oral tablet 5 mg, 1, tablet, By Mouth, Every 6 hours, PRN, for 5 days, # 7 tablet, Refills 0, Tot. Refills 0, Acute 05/01/21 10:39:00 EDT, Pain , Moderate, 04/26/21 10:39:00 EDT, Route to Pharmacy Electronically, [facility]/pharmacy #[id number], Partial fill upon patient requ... Start Date: [...] EDT, Route to Pharmacy Electronically, [facility]/pharmacy #[id number], Partial fill upon patient request if the [...] Active Health jail, active care Active coordination Netta Nancy [facility] [phone](Confirmed) Fatty infiltration of liver(Confirmed) Active Tubular adenoma of colon(Confirmed) Active Results Orders for Microbiology Reports Name Date Blood Culture 04/20/21 Blood Culture #2 04/20/21 Urine Culture (URINE CULTURE) 04/19/21 Blood Culture 04/19/21 Blood Culture #2 04/19/21 Microbiology Reports TEST:Blood Culture STATUS:Auth (Verified) BODY SITE: SOURCE:Blood COLLECTED DATE/TIME:04/20/21 5:54 PMBlood Culture SPECIMEN DESCRIPTION : BLOOD LAC SPECIAL REQUESTS : NONE CULTURE : NO GROWTH 5 DAYS. REPORT STATUS : FINAL 04/25/2021TEST:Blood Culture, Second Order STATUS:Auth (Verified) BODY SITE: SOURCE:Blood COLLECTED DATE/TIME:04/20/21 5:54 PMBlood Culture, Second Order SPECIMEN DESCRIPTION : BLOOD R HAND SPECIAL REQUESTS : NONE CULTURE : NO GROWTH 5 DAYS. REPORT STATUS : FINAL 04/25/2021TEST:Urine Culture STATUS:Auth (Verified) BODY SITE: SOURCE:URINE COLLECTED DATE/TIME:04/19/21 1:20 AMUrine Culture SPECIMEN DESCRIPTION : URINE SPECIAL REQUESTS : NONE CULTURE : <10,000 COL/ML REPORT STATUS : FINAL 04/20/2021TEST:Blood Culture STATUS:Auth (Verified) BODY SITE: SOURCE:Blood COLLECTED DATE/TIME:04/19/21 12:55 AMBlood Culture SPECIMEN DESCRIPTION : BLOOD NO SITE SPECIAL REQUESTS : NONE CULTURE : NO GROWTH 5 DAYS. REPORT STATUS : FINAL 04/24/2021TEST:Blood Culture, Second Order STATUS:Auth (Verified) BODY SITE: SOURCE:Blood COLLECTED DATE/TIME:04/19/21 12:55 AMBlood Culture, Second Order SPECIMEN DESCRIPTION : BLOOD NO SITE SPECIAL REQUESTS : CRITICAL VALUE CALLED AND VERIFIED BY READBACK FOR: [place] [address], W4, ON 04/20/2021 AT 1705, BY [id number] CULTURE : DIPHTHEROIDS Single isolates of Staph. species, not Staph. aureus, Micrococci, Bacillus species, Diphtheroids, Cutibacterium acnes (formerly Propionibacterium acnes) and Viridans Group Streptococci could be skin contaminants. Multiple isolates of these organisms are more likely to be significant. Further identification to follow. No target organisms detected using the [employer] BCID panel. This panel includes 24 bacterial and fungal targets and 3 resistance mechanisms. REPORT STATUS : FINAL 04/21/2021adiology Reports Exam Date Time Procedure Performing Provider Status 04/23/21 9:20 AM Chest Portable Elvia Jara; Auth (Priscilla lynne) Notes:(Chest Portable) Reason For Exam: uptrending white count;Other:RESULT: Chest Portable Chest Portable INDICATION: uptrending white count; Clinical Question(s): Pneumonia / Pneumonia COMPARISON: 04/18/2021 FINDINGS: LINES AND TUBES: None. LUNGS AND PLEURA: Clear lungs. Normal pulmonary vascularity. No pleural effusion. No pneumothorax. HEART, MEDIASTINUM AND YANETH: Heart is normal in size. Normal mediastinal and hilar contour. BONES AND SOFT TISSUES: No acute abnormality. IMPRESSION: No evidence of acute abnormality. WSN: [id number] Ordering Physician: Vicky Goddard Dictated By: Jayce Mix MD Dictated Date/Time: 04/23/21 1:39 pm Reviewed By: Jayce Mix MD Signed By: Jayce Mix MD Signed Date/Time: 04/23/21 1:39 pm Transcribed By: HARPAL Transcribed Date/Time: 04/23/21 1:39 pm Exam Date Time Procedure Performing Provider Status 04/18/21 9:08 PM Chest 2 Views Frontal and Lat Mattie Brown; Auth (Verified) Notes:(Chest 2 Views Frontal and Lat) Reason For Exam: Chest Pain;Other:RESULT: Chest 2 Views Frontal and Lat Chest 2 Views Frontal and Lat Hx of Present Illness: Chest pain after fall. COMPARISON: 12/18/2020 FINDINGS: LINES AND TUBES: None. LUNGS AND PLEURA: Clear lungs. Normal pulmonary vascularity. No pleural effusion. No pneumothorax. HEART, MEDIASTINUM AND YANETH: Heart is normal in size. Normal upper mediastinal and hilar contour. BONES AND SOFT TISSUES: No acute abnormality. IMPRESSION: No acute abnormality. WSN: [id number] Ordering Physician: Yohannes Pyle Dictated By: Vickey Rodriguez MD Dictated Date/Time: 04/18/21 9:10 pm Reviewed By: Vickey Rodriguez MD Signed By: Vickey Rodriguez MD Signed Date/Time: 04/18/21 9:10 pm Transcribed By: HARPAL Transcribed Date/Time: 04/18/21 9:09 pm Vital Signs Most recent to oldest 1 2 3 [Reference Range]: Height 165 cm 165 cm 165 cm (04/26/21 7:21 AM) (04/26/21 4:20 AM) (04/25/21 11: 14 PM) Weight 99.3 kg 99.3 kg 99.3 kg (04/19/21 8:13 AM) (04/19/21 6:09 AM) (04/19/21 4:28 A M) Oxygen Saturation [94-100 %] 98 % 97 % 98 % (04/26/21 7:21 AM) (04/26/21 4:20 AM) (04/25/21 11: 14 PM) Pulse Rate [55-90 bpm] 68 bpm 75 bpm 77 bpm (04/26/21 7:21 AM) (04/26/21 4:20 AM) (04/25/21 11: 14 PM) Body Mass Index [18.5-24.99] 36.47 36.47 36. 47 *>HHI* *>HHI* *>HHI* (04/19/21 8:13 AM) (04/19/21 6:09 AM) (04/19/21 4:28 A M) Blood Pressure [90-138/55-84 143/84 mm Hg 116/73 mm Hg 115 /75 mm Hg mm Hg] *H* (04/26/21 4:20 AM) (04/25/21 11:14 PM) (04/26/21 7:21 AM) Respiratory Rate [16-30 18 br/min 18 br/min 18 br/mi n br/min] (04/26/21 9:13 AM) (04/26/21 9:13 AM) (04/26/21 8:4 3 AM) Temperature [96.8-100.4 DegF] 97.9 DegF 98.1 DegF 98 .1 DegF (04/26/21 7:21 AM) (04/26/21 4:20 AM) (04/25/21 11: 14 PM) Mode of Delivery (Oxygen) Room air Room air Room a ir (04/26/21 7:21 AM) (04/26/21 4:20 AM) (04/25/21 11: 14 PM) Blood pressure sites Arm, left Arm, left Arm, left (04/26/21 7:21 AM) (04/26/21 4:20 AM) (04/25/21 11: 14 PM) Temperature Route Oral Oral Oral (04/26/21 7:21 AM) (04/26/21 4:20 AM) (04/25/21 11: 14 PM) Dry Weight 99.3 kg 99.3 kg 99.3 kg (04/19/21 8:13 AM) (04/19/21 6:09 AM) (04/19/21 4:28 A M) Weight Obtained Via Standing scale (04/18/21 8:35 PM) Dry Weight Obtained Via Standing scale (04/18/21 8:35 PM) Social History Social History Type Response Smoking Status Former smoker; Other: Quit 2 015; entered on: 09/10/17 Sex
--- OUTSIDE RECORDS SUMMARY | 2022-08-20 22:50 | XMS_ITS | Continuity of Care Document ---
:1970 Author Organization [facility] Address [address] [place] [address]- Care Team Providers Name Role Phone Dawna Hernandez MD Primary Care Physician Encounter [facility] Date(s): 04/27/20 - 05/27/[address] [address]- [facility] Allergies, Adverse Reactions, Alerts Substance Reaction [...] 04/30/2010:59:00 EDT, Aerosol, Route to Pharmacy Electronically, [id number], [facility]/pharmacy #[id number], 165, [...] Refills, Maintenance, 05/24/20 10:57:00 EDT, EC Tablet, [facility]/pharmacy #[id number], 165, cm, 05/06/20 10:29:00 EDT, Height, 95.8, kg, 04/19/20 14:48:00 EDT, Dry Weight Start Date: 05/24/20 Status: OrderedoxyCODONE 10 mg oral tablet 1 tablet = 10 mg, By Mouth, Every 6 hours, PRN as needed for pain, dx: M54.5 on agreement masspat checked do not fill til 05/25/20, # 20 tablet, 0 Refills, Maintenance, 05/25/20 13:50:00 EDT, Tablet, [facility], Partial fill upon cedric... Start Date: 05/25/20 Status: OrderedraNITIdine 75 mg oral tablet 1 tablet = 75 mg, By Mouth, Daily, # 28 tablet, 0 Refills, Maintenance, 04/30/20 10:58:00 EDT, Tablet, [facility]/pharmacy #[id number], [...] skilled nursing, active care Active coordination PADMINI Cruz [facility] [phone](Confirmed) Fatty infiltration of liver(Confirmed) Active Social History Social History Type Response Smoking Status Former smoker; Other: Quit 2 015; entered on: 09/10/17 Sex
--- OUTSIDE RECORDS SUMMARY | 2022-08-20 22:50 | XMS_ITS | Continuity of Care Document ---
:1970 Author Organization [facility] Address [address] [place] [address]- Care Team Providers Name Role Phone Mary RAWLS, Dawna Primary Care Physician [place] [facility] [place]15[place] - 05/21/[address] [address] Attending Physician: Dawna Hernandez MD Admitting Physician: [...] 04/30/2010:59:00 EDT, Aerosol, Route to Pharmacy Electronically, [id number], [facility]/pharmacy #[id number], 165, cm, 04/30/20 10:31:00 EDT, [...] tableta en la manana y noche x3ds. [place] katy tableta en la manana y tarde y antes de acostarse., # 90 capsule, Refills 1, Tot. Refills 1, Maintenan... Start Date: 01/18/21 Status: Orderedlidocaine 5% topical film 1 patch, Topically, Daily, PRN Pain , Moderate, # 10 patch, 0 Refills, Maintenance, 04/26/21 10:38:00 EDT, Patch, [facility]/pharmacy #[id number], Partial fill upon [...] Route to Pharmacy Electronically, [facility]/pharmacy #[id number], Partial fill upon patient request if the [...] Health prison, active care Active coordination PADMINI Cruz [facility] [phone](Confirmed) Fatty infiltration of liver(Confirmed) Active Tubular adenoma of colon(Confirmed) Active Social History Social History Type Response Smoking Status Former smoker; Other: Quit 2 015; entered on: 09/10/17 Sex
--- OUTSIDE RECORDS SUMMARY | 2022-08-20 22:50 | XMS_ITS | Continuity of Care Document ---
:1970 Author Organization [facility] Address [address] [place] [address]- Care Team Providers Name Role Phone Dawna Hernandez MD Primary Care Physician Encounter [facility] Date(s): 05/06/21 - 06/05/[address] [address] Allergies, Adverse Reactions, [...] 04/30/2010:59:00 EDT, Aerosol, Route to Pharmacy Electronically, [id number], [facility]/pharmacy #[id number], 165, cm, 04/30/20 10:31:00 [...] en la manana y noche x3ds. [place] katy tableta en la manana y tarde y antes de acostarse., # 90 capsule, Refills 1, Tot. Refills 1, Maintenan... Start Date: 01/18/21 Status: Orderedlidocaine 5% topical film 1 patch, Topically, Daily, PRN Pain , Moderate, # 10 patch, 0 Refills, Maintenance, 04/26/21 10:38:00 EDT, Patch, [facility]/pharmacy #[id number], Partial fill upon [...] 05/20/21 16:26:00 EDT, Route to Pharmacy Electronically, [facility]/pharmacy #[id number], Partial fill upon [...] Route to Pharmacy Electronically, [facility]/pharmacy #[id number], Partial fill upon [...] jail, active care Active coordination PADMINI Mata [phone](Confirmed) Fatty infiltration of liver(Confirmed) Active Tubular adenoma of colon(Confirmed) Active Social History Social History Type Response Smoking Status Former smoker; Other: Quit 2 015; entered on: 09/10/17 Sex
[2022-08-20 22:52] LABS: Influenza A PCR NEGATIVE (Negative); Influenza B PCR NEGATIVE (Negative); Resp Syncy Virus RNA Qual PCR NEGATIVE (Negative); SARS COV2 PCR INHOUSE NEGATIVE (Negative)
[2022-08-20 22:54] VITALS: BP 115/68; PULSE 88; RESP 18; TEMP 36.8; O2SAT 96
[2022-08-21] MEDS: Gabapentin 300 MG CAPSULE PO (00:27)
[2022-08-21] MEDS: Morphine Sulfate 2 MG/ML CARTRIDGE IVPUSH (00:27)
--- NOTE | 2022-08-21 01:10 | ED_ITS ---
HPI - General Adult General Chief complaint: Back Pain/Injury Stated complaint: burning sensation/ pain back of legs, toes Time Seen by Provider: 08/20/22 22:54 Source: patient Mode of arrival: ambulatory Limitations: no limitations History of Present Illness HPI narrative: 51 Yold male with pmh of diet controlled diabetes, and arthritic back pain presents to the ED for burning sensation ( burning/tinglin) radiating from back down both legs and testes for the past 3 days. patient denies any abdominal pain, nausea, vomitting, fever, chills, or flank pain. Patient denies any recent trauma, dysuria, hematuria, fever, chills, or any urinary/bowel incontinence. Patient denies any IV drug use or immunocompromise diseses. Patient seconday complaint is chest pain two days ago that resolved on its own. Related Data Home Medications Medication Instructions Recorded Confirmed fluoxetine 20 mg capsule 60 mg PO DAILY 05/14/21 05/19/21 prazosin 2 mg capsule 2 mg PO BEDTIME 05/14/21 05/19/21 risperidone 4 mg tablet 4 mg PO BEDTIME 05/14/21 05/19/21 Previous Rx's Medication Instructions Recorded aspirin 81 mg tablet,delayed 81 mg PO DAILY #30 tabs 05/19/21 release heparin (porcine) 25,000 unit/250 25,000 unit (250 mL) continuous IV 05/19/21 mL in 0.45 % sodium chloride IV infusion .Q0M #250 mL soln cyclobenzaprine 10 mg tablet 10 mg PO BEDTIME PRN muscle spasm 12/04/21 #14 tabs oxycodone 5 mg tablet 5 mg PO Q8H PRN pain #10 tabs 12/04/21 oxycodone 5 mg tablet 5 mg PO Q8H PRN pain #10 tabs 12/04/21 cyclobenzaprine 10 mg tablet 10 mg PO TID PRN muscle spasm #10 01/06/22 tabs ibuprofen 600 mg tablet 600 mg PO Q6H PRN pain #14 tabs 01/06/22 cyclobenzaprine 5 mg tablet 5 mg PO BEDTIME PRN muscle spasm 06/20/22 #4 tabs ketorolac 10 mg tablet 10 mg PO Q6H PRN pain 5 days #20 06/20/22 tabs ciprofloxacin HCl 250 mg tablet 250 mg PO Q12H 7 days #14 tabs 08/21/22 oxycodone 5 mg capsule 5 mg PO TID PRN pain 3 days #9 caps 08/21/22 prednisone 20 mg tablet 40 mg PO DAILY 5 days #10 tabs 08/21/22 Allergies Allergy/AdvReac Type Severity Reaction Status Date / Time lisinopril [LISINOPRIL] Allergy Severe ANGIOEDEMA Verified 01/06/22 02:05 Review of Systems Review of Systems: burning sensation radiating from back down the legs and testicles. also resolved chest pain. Yes all other systems are reviewed and are negative [facility] Past Medical History Medical History Arthritis Hematuria High cholesterol Loin pain Slipped intervertebral disc Syncope Social History Social History Alcohol intake: never Patient Tobacco Use Status: Never used Tobacco Advance Directives: No Advance Directives Information Provided: Yes Advance Directives Date on File: 05/14/21 service: No Current occupational status: unemployed Physical Exam ED Vital Signs: Vital Signs - 24 hr 08/20/22 21:48 08/20/22 22:54 Temperature 99.2 F 98.2 F Pulse Rate 105 H 88 Respiratory Rate 16 18 Blood Pressure 124/78 115/68 Pulse Oximetry 97 96 Oxygen Delivery Method Room Air Room Air BMI result Body Mass Index 34.9 Const General: cooperative, healthy appearing, comfortable, no acute distress, well developed, alert and awake Orientation/consciousness: oriented to time and patient oriented x3 HENMT Head: Yes normal to inspection, Yes No palpable skull fracture present, Yes normocephalic, Yes atraumatic and No abrasion Eyes General: appearance normal, both eyes and all related structures Neck Neck: Yes normal visual inspection, Yes full ROM, Yes no lymphadenopathy, Yes no meningeal signs, Yes trachea midline, Yes supple, No anterior neck swelling and No tender Chest Chest palpation & inspection: normal inspection of the chest and normal palpation of entire chest wall Resp Effort & Inspection: normal respiratory effort and able to speak in complete sentences Auscultation: clear to auscultation bilaterally Cardio Jugular venous distension: no JVD Heart sounds: S1 normal heart sound present and S2 normal heart sound present GI Inspection: Yes normal to inspection and No abdominal wall ecchymosis Palpation (GI): Soft to palpation, not firm, nontender, no guarding and not rigid General: No CVA tenderness and Yes no CVA tenderness Male General Exam: Yes normal external exam Penis: normal penis and uncircumcised Meatus: meatus normal Testes: testicular tenderness bilateral Back/Spine/Pelvis Back: no CVA tenderness, No CVA tenderness and No back tenderness Skin General skin exam: no rashes or lesions noted and elasticity normal Neuro Other: Negative facial droop. Negative slurred speech. Negative pronator drift. All extremities equal strength 5+. [id number] rapid hand movement intact. Negative Romberg. Normal gait General: oriented to time, patient oriented x3, gait normal, tone normal, no meningeal signs and CN's II-XI intact bilaterally Extrem Other: Negative for any swelling of lower extremities, pitting edema, calf tenderness. General: Yes normal to inspection and Yes full ROM Psych Appearance: grossly normal, well kempt and not disheveled Course Course Course Narrative: Labs ordered. Reevaluation(s) Reevaluation #1: Patient has white count 38632 but no belly pain the urine shows some mild blood and leukerestace for CT scan to check for any kidney stones or signs of pyelonephritis. EKG negative STEMI. Troponin negative. I reviewed notes and patient was seen here for similar presentation of back pain and bilateral testicular pain with peripheral neuropathy and was discharged. Was diagnosed with lumbar radiculopathy and peripheral neuropathy Time: 01:29 Reevaluation #2: Patient's ultrasound normal. Patient will be discharged antibiotics. Casae [facility] who agree patient can be dsicharged. Patient is safe for discharge. Time: 03:22 Medical Decision Making [facility] Narrative Medical decision making narrative: Peripheral neuropathy. Atypical chest pain. UTI Lab Data Result diagrams: 08/20/22 22:06 08/20/22 22:06 Labs: Lab Results 08/20/22 08/20/22 08/20/22 Range/Units 22:06 22:06 22:06 WBC 16.5 H (4.8-10.8) X10*3/uL RBC 5.17 (4.60-5.80) X10*6/uL Hgb 14.1 (14.0-18.0) g/dl Hct 44.2 (42.0-52.0) % MCV 85.5 (80.0-98.0) fL MCH 27.3 (27.0-33.0) pg MCHC 31.9 (31.0-36.0) g/dl RDW 15.3 (11.0-16.0) % Plt Count 338 (160-400) X10*3/uL MPV 10.5 (9.4-12.4) fL Immature Gran % (Auto) 0.5 H (0.0-0.4) % Neut % (Auto) 86.6 H (45-73) % Lymph % (Auto) 8.7 L (20-40) % [place]alier % (Auto) 4.1 (2-11) % Eos % (Auto) 0.0 (0-4) % Baso % (Auto) 0.1 (0-2) % Lymph # (Auto) 1.4 (1.2-4.9) X10*3/uL [place] # (Auto) 0.7 (0.1-1.2) X10*3/uL Eos # (Auto) 0.0 (0.0-0.4) X10*3/uL Baso # (Auto) 0.0 (0.0-0.2) X10*3/uL Abs Immat Gran (auto) 0.08 H (0.00-0.03) X10*3/uL Absolute Neuts (auto) 14.3 H (2.0-8.3) x10*3/uL Absolute Nucleated RBC 0.000 (0.0-0.012) X10*3/uL Nucleated RBC % (auto) 0.0 (0.0-0.2) /100WBC Sodium 140 (135-145) mmol/L Potassium 3.9 (3.3-5.1) mmol/L Chloride 103 (96-108) mmol/L Carbon Dioxide 23 (22-29) mmol/L Anion Gap 18 (12-20) BUN 22 H D (9-16) mg/dL Creatinine 0.83 (0.5-1.4) mg/dL Estim Creat Clear Calc 112.9 Estimated GFR > 60 Random Glucose 139 H (60-115) mg/dL Calcium 9.4 (8.4-10.2) mg/dL Troponin I High Sens < 3.5 (<3.5-35.0) ng/L Urine Color Urine Appearance Urine pH (5.0-9.0) Ur Specific [place] (1.005-1.025) Urine Protein (Neg-Trace) mg/dL Urine Glucose (UA) (Negative) mg/dL Urine Ketones (Negative) mg/dL Urine Blood (Negative) Urine Nitrite (Negative) Ur Leukocyte Esterase (Negative) Urine RBC (0-2) /HPF Urine WBC (0-5) /HPF Ur Squamous Epith Cells (0-2) /HPF Urine Bacteria (None Seen) Hyaline Casts (0-2) /LPF Influenza Type A (PCR) (Negative) Influenza Type B (PCR) (Negative) RSV RNA Qual (PCR) (Negative) SARS-CoV-2 RNA (RT-PCR) (Negative) 08/20/22 08/20/22 Range/Units 22:06 22:12 WBC (4.8-10.8) X10*3/uL RBC (4.60-5.80) X10*6/uL Hgb (14.0-18.0) g/dl Hct (42.0-52.0) % MCV (80.0-98.0) fL MCH (27.0-33.0) pg MCHC (31.0-36.0) g/dl RDW (11.0-16.0) % Plt Count (160-400) X10*3/uL MPV (9.4-12.4) fL Immature Gran % (Auto) (0.0-0.4) % Neut % (Auto) (45-73) % Lymph % (Auto) (20-40) % [place] % (Auto) (2-11) % Eos % (Auto) (0-4) % Baso % (Auto) (0-2) % Lymph # (Auto) (1.2-4.9) X10*3/uL [place] # (Auto) (0.1-1.2) X10*3/uL Eos # (Auto) (0.0-0.4) X10*3/uL Baso # (Auto) (0.0-0.2) X10*3/uL Abs Immat Gran (auto) (0.00-0.03) X10*3/uL Absolute Neuts (auto) (2.0-8.3) x10*3/uL Absolute Nucleated RBC (0.0-0.012) X10*3/uL Nucleated RBC % (auto) (0.0-0.2) /100WBC Sodium (135-145) mmol/L Potassium (3.3-5.1) mmol/L Chloride (96-108) mmol/L Carbon Dioxide (22-29) mmol/L Anion Gap (12-20) BUN (9-16) mg/dL Creatinine (0.5-1.4) mg/dL Estim Creat Clear Calc Estimated GFR Random Glucose (60-115) mg/dL Calcium (8.4-10.2) mg/dL Troponin I High Sens (<3.5-35.0) ng/L Urine Color Yellow Urine Appearance Clear Urine pH 6.0 (5.0-9.0) Ur Specific [place] 1.025 (1.005-1.025) Urine Protein Negative (Neg-Trace) mg/dL Urine Glucose (UA) Negative (Negative) mg/dL Urine Ketones Trace (Negative) mg/dL Urine Blood Small (1+) H (Negative) Urine Nitrite Negative (Negative) Ur Leukocyte Esterase Small (1+) H (Negative) Urine RBC 6-10 H (0-2) /HPF Urine WBC 11-20 H (0-5) /HPF Ur Squamous Epith Cells 0-2 (0-2) /HPF Urine Bacteria None Seen (None Seen) Hyaline Casts 0-2 (0-2) /LPF Influenza Type A (PCR) NEGATIVE (Negative) Influenza Type B (PCR) NEGATIVE (Negative) RSV RNA Qual (PCR) NEGATIVE (Negative) SARS-CoV-2 RNA (RT-PCR) NEGATIVE (Negative) ECG Data Interpretation: Normal sinus rhythm. Ventricular rate 100. Pr interval 114. QRS 82. QTC 441. Negative STEMI Discharge Plan Discharge Clinical Impression: Lumbar radiculopathy, UTI (urinary tract infection), Peripheral neuropathy Patient Disposition: Home, Self-Care Instructions: Urinary Tract Infection in Men (ED), Peripheral Neuropathy (ED), Lumbar Radiculopathy (ED) Additional Instructions: Continue taking your gabapentin oxycodone prescription. He will be discharged with antibiotics wound infection. Return to the emergency room for which it was, nausea, vomiting, abdominal pain, weakness, dizziness inability to walk, urinary/bowel incontinence, bloody urine, blood in stool, recent testicular pain, penile discharge, penile lesions, any other concerning symptoms. Prescriptions: New prednisone 20 mg tablet 40 mg PO DAILY 5 Days Qty: 10 0RF ciprofloxacin HCl 250 mg tablet 250 mg PO Q12H 7 Days Qty: 14 0RF oxycodone 5 mg capsule 5 mg PO TID PRN (Reason: pain) 3 Days Qty: 9 0RF Rx Instructions: Partial Fill upon patient request. No Action risperidone 4 mg tablet 4 mg PO BEDTIME fluoxetine 20 mg capsule 60 mg PO DAILY prazosin 2 mg capsule 2 mg PO BEDTIME heparin(porcine) in 0.45% NaCl 25,000 unit/250 mL Parenteral Solution 25,000 unit continuous IV infusion .Q0M Qty: 250 0RF Rx Instructions: Infuse per protocol aspirin 81 mg tablet,delayed release (DR/EC) 81 mg PO DAILY Qty: 30 0RF cyclobenzaprine 5 mg tablet 5 mg PO BEDTIME PRN (Reason: muscle spasm) Qty: 4 0RF ketorolac 10 mg tablet 10 mg PO Q6H PRN (Reason: pain) 5 Days Qty: 20 0RF Rx Instructions: 1. Patient had Toradol in the emergency room. 2. Please instruct patient to refrain from all other NSAIDs. cyclobenzaprine 10 mg tablet 10 mg PO BEDTIME PRN (Reason: muscle spasm) Qty: 14 0RF oxycodone 5 mg tablet 5 mg PO Q8H PRN (Reason: pain) Qty: 10 0RF oxycodone 5 mg tablet 5 mg PO Q8H PRN (Reason: pain) Qty: 10 0RF ibuprofen 600 mg tablet 600 mg PO Q6H PRN (Reason: pain) Qty: 14 0RF cyclobenzaprine 10 mg tablet 10 mg PO TID PRN (Reason: muscle spasm) Qty: 10 0RF Referrals: Dawna Hernandez MD [Primary Care Provider] - (UTI, periphereal neuropathy, lumbar radiculopathy) Stand Alone Forms: Work/School Release Print Language: Kyrgyz
[2022-08-21] MEDS: Ketorolac Tromethamine 30 MG/ML VIAL IVPUSH (02:01)
[2022-08-21 03:41] VITALS: BP 128/73; PULSE 80; RESP 20; O2SAT 98
[2022-08-21 06:31] LABS: CT PCR NOT DETECTED (Not Detect.); NG PCR NOT DETECTED (Not Detect.)
== END 2022-08-21 03:52 | disposition home or self-care (01) ==
PROVIDERS: Physician Assistant; Emergency Provider Student in an Organized Health Care Education/Training Program; PCP Internal Medicine
DX: M54.16 Radiculopathy, lumbar region (principal); N39.0 Urinary tract infection, site not specified; G62.9 Polyneuropathy, unspecified; R07.89 Other chest pain; N50.812 Left testicular pain; M54.50 Low back pain, unspecified; Z20.822 Contact with and (suspected) exposure to COVID-19; Z79.899 Other long term (current) drug therapy
CPT/HCPCS: 0241U; 36415; 71045; 74176; 76870; 80048; 81001; 84484; 85025; 87086; 87147; 87491; 87591; 93005; 93975; 96374; 96375; 99284; J1885; J2270

== ENCOUNTER 2022-11-10 04:08 | Emergency (ER) | payer OTHER, SELFPAY ==
[2022-11-10 04:11] VITALS: BP 127/82; PULSE 95; RESP 18; TEMP 36.4; O2SAT 98; BMI 34.1
--- NOTE | 2022-11-10 04:54 | ED.GENADULT ---
HPI - General Adult General Chief complaint: General Medical Stated complaint: Multiple complaints Time Seen by Provider: 11/10/22 04:54 Source: patient Mode of arrival: ambulatory Limitations: no limitations History of Present Illness HPI narrative: Patient history of chronic back pain complaining of pain in the lower back for last few days patient was seen by PCP 2 days given Flexeril and prednisone patient on chronic pain management on oxycodone no recent fall no muscle weakness patient has a chronic tingling off and on the right leg and ambulating in steady gait Related Data Home Medications Medication Instructions Recorded Confirmed fluoxetine 20 mg capsule 60 mg PO DAILY 05/14/21 05/19/21 prazosin 2 mg capsule 2 mg PO BEDTIME 05/14/21 05/19/21 risperidone 4 mg tablet 4 mg PO BEDTIME 05/14/21 05/19/21 Previous Rx's Medication Instructions Recorded aspirin 81 mg tablet,delayed 81 mg PO DAILY #30 tabs 05/19/21 release heparin (porcine) 25,000 unit/250 25,000 unit (250 mL) continuous IV 05/19/21 mL in 0.45 % sodium chloride IV infusion .Q0M #250 mL soln cyclobenzaprine 10 mg tablet 10 mg PO BEDTIME PRN muscle spasm 12/04/21 #14 tabs oxycodone 5 mg tablet 5 mg PO Q8H PRN pain #10 tabs 12/04/21 oxycodone 5 mg tablet 5 mg PO Q8H PRN pain #10 tabs 12/04/21 cyclobenzaprine 10 mg tablet 10 mg PO TID PRN muscle spasm #10 01/06/22 tabs ibuprofen 600 mg tablet 600 mg PO Q6H PRN pain #14 tabs 01/06/22 cyclobenzaprine 5 mg tablet 5 mg PO BEDTIME PRN muscle spasm 06/20/22 #4 tabs ketorolac 10 mg tablet 10 mg PO Q6H PRN pain 5 days #20 06/20/22 tabs ciprofloxacin HCl 250 mg tablet 250 mg PO Q12H 7 days #14 tabs 08/21/22 oxycodone 5 mg capsule 5 mg PO TID PRN pain 3 days #9 caps 08/21/22 prednisone 20 mg tablet 40 mg PO DAILY 5 days #10 tabs 08/21/22 Allergies Allergy/AdvReac Type Severity Reaction Status Date / Time lisinopril [LISINOPRIL] Allergy Severe ANGIOEDEMA Verified 11/10/22 04:41 Review of Systems Review of Systems: Yes all other systems are reviewed and are negative [facility] Past Medical History Medical History Arthritis Hematuria High cholesterol Loin pain Slipped intervertebral disc Syncope Social History Social History Alcohol intake: current Alcohol intake frequency: holidays/special occasions only Patient Tobacco Use Status: Never used Tobacco Smoked in Last 30 Days: No Use of substances other than those prescribed or required for medical reasons: No Advance Directives: No Advance Directives Date on File: 05/14/21 service: No Current occupational status: unemployed Physical Exam ED Vital Signs: Vital Signs - 24 hr 11/10/22 04:11 11/10/22 05:26 Temperature 97.6 F 98.2 F Pulse Rate 95 83 Respiratory Rate 18 18 Blood Pressure 127/82 123/78 Pulse Oximetry 98 97 Oxygen Delivery Method Room Air Room Air BMI result Body Mass Index 34.1 Appearance: Alert. Oriented X3. No acute distress. Eyes: PERRLA, No Nystagmus ENT: Pharynx normal. Oral Mucosa moist Neck: Normal inspection. Neck supple. CVS: Normal heart rate and rhythm. Pulses normal. Respiratory: No respiratory distress. Equal air entry bilateral, no wheezing/rales/rhonchi Abdomen: Soft and nontender. Bowel sounds are present, no mass palpable, no CVA tenderness Skin: Skin warm and dry. Normal skin color. Normal skin turgor. Extremities: No lower extremity edema. No calf tenderness diffuse lower lumbar tenderness SLR negative Neuro: Oriented X 3. No motor deficit. No sensory deficit.No cerebellar signs , cranial nerves II-XII intact Medications Administered Discontinued Medications Generic Name Dose Route Start Last Admin Trade Name Freq PRN Reason Stop Dose Admin Cyclobenzaprine HCl 10 mg 11/10/22 05:02 11/10/22 05:28 Cyclobenzaprine Hcl 10 Mg Tablet PO 11/10/22 05:03 10 mg ONCE ONE Administration Ketorolac Tromethamine 60 mg 11/10/22 05:07 11/10/22 05:29 Ketorolac Tromethamine 60 Mg/2 Ml Vial IM 11/10/22 05:08 60 mg ONCE ONE Administration Medical Decision Making Medical Decision Making [facility] Narrative: Patient chronic pain and lower back with no change lately has pain medication followed by pain clinic will discharge patient home received Toradol in the ER Lab Data Labs: Lab Results 11/10/22 Range/Units 05:10 Urine Color Yellow Urine Appearance Clear Urine pH 6.5 (5.0-9.0) Ur Specific [place] 1.015 (1.005-1.025) Urine Protein Negative (Neg-Trace) mg/dL Urine Glucose (UA) Negative (Negative) mg/dL Urine Ketones Negative (Negative) mg/dL Urine Blood Small (1+) H (Negative) Urine Nitrite Negative (Negative) Ur Leukocyte Esterase Negative (Negative) Urine RBC 3-5 H (0-2) /HPF Urine WBC 0-5 (0-5) /HPF Ur Squamous Epith Cells 0-2 (0-2) /HPF Urine Bacteria None Seen (None Seen) Hyaline Casts 0-2 (0-2) /LPF Discharge Plan Discharge Clinical Impression: Chronic back pain Patient Disposition: Home, Self-Care Instructions: Chronic Back Pain (DC) Additional Instructions: Taking medication as prescribed byyour PCP and follow-up with PCP/Orthopedics Prescriptions: No Action risperidone 4 mg tablet 4 mg PO BEDTIME fluoxetine 20 mg capsule 60 mg PO DAILY prazosin 2 mg capsule 2 mg PO BEDTIME heparin(porcine) in 0.45% NaCl 25,000 unit/250 mL Parenteral Solution 25,000 unit continuous IV infusion .Q0M Qty: 250 0RF Rx Instructions: Infuse per protocol aspirin 81 mg tablet,delayed release (DR/EC) 81 mg PO DAILY Qty: 30 0RF cyclobenzaprine 5 mg tablet 5 mg PO BEDTIME PRN (Reason: muscle spasm) Qty: 4 0RF ketorolac 10 mg tablet 10 mg PO Q6H PRN (Reason: pain) 5 Days Qty: 20 0RF Rx Instructions: 1. Patient had Toradol in the emergency room. 2. Please instruct patient to refrain from all other NSAIDs. cyclobenzaprine 10 mg tablet 10 mg PO BEDTIME PRN (Reason: muscle spasm) Qty: 14 0RF oxycodone 5 mg tablet 5 mg PO Q8H PRN (Reason: pain) Qty: 10 0RF oxycodone 5 mg tablet 5 mg PO Q8H PRN (Reason: pain) Qty: 10 0RF ibuprofen 600 mg tablet 600 mg PO Q6H PRN (Reason: pain) Qty: 14 0RF cyclobenzaprine 10 mg tablet 10 mg PO TID PRN (Reason: muscle spasm) Qty: 10 0RF prednisone 20 mg tablet 40 mg PO DAILY 5 Days Qty: 10 0RF ciprofloxacin HCl 250 mg tablet 250 mg PO Q12H 7 Days Qty: 14 0RF oxycodone 5 mg capsule 5 mg PO TID PRN (Reason: pain) 3 Days Qty: 9 0RF Rx Instructions: Partial Fill upon patient request. Interventions: ED Discharge Assessment Last Done: 11/10/22 06:11 Discharge Date/Time: 11/10/22 06:12
[2022-11-10 05:22] LABS: Appearance Urine Clear; Color Urine Yellow; Glucose Urine UA Negative (Negative); Leukocyte Esterase Urine Negative (Negative); Nitrite Urine Negative (Negative); PH 6.5 (5.0-9.0); Specific Gravity - Urine 1.015 (1.005-1.025); UMIC TRIGGER UACC YES; Urine Blood Small (1+) (Negative); Urine Ketones Negative (Negative); Urine Protein Negative (Neg-Trace)
[2022-11-10 05:26] VITALS: BP 123/78; PULSE 83; RESP 18; TEMP 36.8; O2SAT 97
[2022-11-10] MEDS: Cyclobenzaprine HCl 10 MG TABLET PO (05:28)
[2022-11-10] MEDS: Ketorolac Tromethamine 60 MG/2 ML VIAL IM (05:29)
[2022-11-10 05:33] LABS: Bacteria Urine None Seen (None Seen); Hyaline Casts Urine 0-2 /LPF (0-2); Squamous Epithelial Cell Urine 0-2 /HPF (0-2); WBC Urine 0-5 /HPF (0-5)
== END 2022-11-10 06:12 | disposition home or self-care (01) ==
PROVIDERS: Emergency Provider Internal Medicine; PCP Internal Medicine
DX: G89.29 Other chronic pain (principal); M54.50 Low back pain, unspecified; E78.00 Pure hypercholesterolemia, unspecified; Z79.891 Long term (current) use of opiate analgesic; Z79.899 Other long term (current) drug therapy; Z79.82 Long term (current) use of aspirin
CPT/HCPCS: 81001; 96372; 99284; J1885

== ENCOUNTER 2024-05-24 00:52 | Emergency (ER) | payer OTHER, SELFPAY ==
--- NOTE | 2024-05-24 | ECG_ITS ---
Test Reason : syncopy Blood Pressure : / mmHG Vent. Rate : 089 BPM Atrial Rate : 089 BPM P-R Int : 118 ms QRS Dur : 084 ms QT Int : 366 ms P-R-T Axes : 040 010 023 degrees QTc Int : 445 ms Normal sinus rhythm Normal ECG When compared with ECG of 20-AUG-2022 21:53, Previous ECG has undetermined rhythm, needs review Referred By: Generic ED Physician Electronically Signed By:LORENA ARCHIBALD MD
--- NOTE | ~2024-05-24 | CT_ITS ---
EXAMINATION: CT LUMBAR SPINE WITHOUT CONTRAST CLINICAL INFORMATION: Low back pain. Incontinence. COMPARISON: 08/20/2022 TECHNIQUE: Multidetector volumetric imaging was obtained through the lumbar spine without intravenous contrast material. Multiplanar reformatted images in coronal and sagittal orientations were submitted. This CT examination was performed using dose optimization techniques as appropriate, variously including the following: *Automated exposure control *Adjustment of mA and/or kV according to patient size (this includes techniques or standardized protocols for targeted exams where dose is matched to indication/reason for exam; i.e. extremities or head) *Use of iterative reconstruction technique DLP; 389 mGy-cm FINDINGS: No fractures. Vertebral body heights are normal. Grade 1 retrolisthesis of L5 on S1 measures 4 mm. No additional spondylolisthesis. There is mild degenerative disc disease L5-S1 with endplate osteophytes and mild loss of ventricular disc height. More minimal degenerative disc disease present at other levels, characterized primarily by endplate osteophytes. Severe facet arthropathy is evident on the left at L4-L5 and right at L5-S1. More mild to moderate multilevel facet arthropathy is present at other levels in the lumbar spine. No pars defects. Diffuse disc bulge and facet arthropathy combine to produce [id number] central canal narrowing at the L4-L5 level. No critical subchondral canal stenoses. L5-S1, there is a right paracentral disc protrusion which combines with facet arthropathy to produce mass effect upon the traversing right S1 nerve root in the lateral recess. There is multilevel neural foraminal encroachment due to foraminal disc osteophyte complexes and facet arthropathy, most notably on the right at L3-L4, L4-L5, and L5-S1 (L3, L4, and L5 nerve roots) and on the left at L4-L5 (L4 nerve root). Paraspinal soft tissues are unremarkable. CT/CT lumbar spine wo IV con IMPRESSION: 1. No acute fracture or acute malalignment in the lumbar spine. 2. Multilevel degenerative disc disease, most notably at L5-S1 where there is a right paracentral disc protrusion which combines with facet arthropathy to produce mass effect upon the traversing right S1 nerve root in the lateral recess. 3. Multilevel neural foraminal encroachment due to foraminal disc osteophyte complexes and facet arthropathy, most notably on the right at L3-L4, L4-L5, and L5-S1. 4. Kvhu-wj-ecsjvyph central canal narrowing at L4-L5. No evidence of critical central canal stenoses which might cause cauda equina syndrome.
[2024-05-24 00:56] VITALS: BP 129/86; PULSE 91; RESP 20; TEMP 36.8; O2SAT 97; BMI 28.3
[2024-05-24 01:29] LABS: Basophils Percent Auto 0.3 % (0-2); Eosinophils Absolute Auto 0.3 X10*3/uL (0.0-0.4); Hematocrit 45.7 % (42.0-52.0); Hemoglobin 15.1 g/dl (14.0-18.0); Imm Gran Abs Auto 0.11 X10*3/uL (0.00-0.03); Imm Gran Pct Auto 0.9 % (0.0-0.4); Lymphocytes Absolute Auto 3.2 X10*3/uL (1.2-4.9); Lymphocytes Percent Auto 25.2 % (20-40); MANUAL DIFF FLAG NO; Mean Corpuscular Hemoglobin 28.8 pg (27.0-33.0); Mean Platelet Volume 10.3 fL (9.4-12.4); Monocytes Absolute Auto 0.8 X10*3/uL (0.1-1.2); Monocytes Percent Auto 6.2 % (2-11); Neutrophils Absolute Auto 8.2 x10*3/uL (2.0-8.3); Neutrophils Percent Auto 65.4 % (45-73); Platelet Count 262 X10*3/uL (160-400); Red Blood Count 5.25 X10*6/uL (4.60-5.80); Red Cell Distribution Width 14.8 % (11.0-16.0); White Blood Count 12.6 X10*3/uL (4.8-10.8)
[2024-05-24 01:31] LABS: Appearance Urine Clear; Color Urine Yellow; Glucose Urine UA Negative (Negative); Leukocyte Esterase Urine Negative (Negative); Nitrite Urine Negative (Negative); PH 6.5 (5.0-9.0); Specific Gravity - Urine >= 1.030 (1.005-1.025); UMIC TRIGGER UACC YES; Urine Blood Trace (Negative); Urine Ketones Trace mg/dL (Negative); Urine Protein Negative (Neg-Trace)
[2024-05-24 01:33] LABS: Bacteria Urine None Seen (None Seen); Hyaline Casts Urine 0-2 /LPF (0-2); Squamous Epithelial Cell Urine 0-2 /HPF (0-2); WBC Urine 0-5 /HPF (0-5)
[2024-05-24 01:42] LABS: Alanine Aminotransferase 13 U/L (0-40); Albumin Level 4.1 g/dL (3.5-5.0); Alkaline Phosphatase 121 U/L (39-117); Anion Gap 15 (12-20); Aspartate Amino Transferase 11 U/L (5-37); Bilirubin Total 0.2 mg/dL (0.0-1.0); Blood Urea Nitrogen 17 mg/dL (9-16); Calcium 9.1 mg/dL (8.4-10.2); Carbon Dioxide 24 mmol/L (22-29); Chloride 104 mmol/L (96-108); Estimated Glomerular Filt Rate > 60; Glucose Random 176 mg/dL (60-115); Lipase 62 U/L (8-78); Potassium 3.7 mmol/L (3.3-5.1); Sodium 139 mmol/L (135-145); Total Protein 7.5 g/dL (6.5-8.0)
[2024-05-24 01:49] LABS: Troponin-I High Sensitivity < 2.7 ng/L (<3.5-35.0)
--- OUTSIDE RECORDS SUMMARY | 2024-05-24 04:28 | XMS_ITS | Continuity of Care Document ---
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 Date(s): 09/07/23 - 10/07/[address] [address] Allergies, Adverse Reactions, Alerts Substance Reaction Severity Status lisinopril Angioedema Active Shrimp Active Immunizations Given and Recorded Vaccine Date Status Refusal Reason pneumococcal 20-valent conjugate vaccine 08/10/23 Given influenza virus vaccine, inactivated 08/10/23 Give n influenza virus vaccine, inactivated 11/03/22 Give n influenza virus vaccine, inactivated 02/15/22 Give n influenza virus vaccine, inactivated 09/01/20 Give n influenza virus vaccine, inactivated 09/15/19 Give n influenza virus vaccine, inactivated 11/19/18 Give n influenza virus vaccine, inactivated 09/10/17 Give n influenza virus vaccine, inactivated 12/06/15 Give n [id number] 12y+ bivalent booster vax 11/03/22 Given SARS-CoV-2 mRNA ([id number]-evuj-carli) vax 01/26/22 Given SARS-CoV-2 mRNA (qhqiccf-qifb-eojeg) vax 12/28/21 Given tetanus/diphtheria/pertussis, acel(Tdap) 03/29/19 Given tetanus/diphtheria/pertussis, acel(Tdap) 09/10/17 Given pneumococcal 23-valent vaccine 04/08/18 Recorded pneumococcal 23-valent vaccine 04/22/17 Recorded pneumococcal 23-valent vaccine 12/21/12 Given Medications aspirin 81 mg oral delayed release tablet 81 mg, By Mouth, Daily, # 30 tablet, Refills 11, Tot. Refills 11, Maintenance, 09/12/23 17:42:00 EST, Route to Pharmacy Electronically, [facility] [id number], For blister pack please., 166, cm, 09/12/23 13:54:00 EST, Height, 9... Start Date: 09/12/23 Status: Ordered atorvastatin 40 mg oral tablet 1 tablet = 40 mg, By Mouth, Daily, # 30 tablet, 11 Refills, Maintenance, 09/12/23 17:42:00 EST, Tablet, [place] - [id number], For blister pack please., 166, cm, 09/12/23 13:54:00 EST, Height, 93, kg, 09/06/23 16:15:00 EST, DrMicheal.. Start Date: 09/12/23 Stop Date: 09/06/24 Status: Ordered chlorhexidine topical 0.12% liquid See Instructions, SWISH AND SPIT DO NOT SWALLOW. USE 3-4 X/ DAY, # 473 mL, 0 Refills, Maintenance, 09/25/23 16:56:00 EST, [facility] STORE [id number], 30, SWISH AND SPIT DO NOT SWALLOW. USE 3-4 X/ DAY, 166, cm, 09/21/23 11:32:00 EST, Height, 93, kg, 09/14/23 12:3... Start Date: 09/25/23 Status: Ordered docusate sodium 100 mg oral tablet 1 tablet = 100 mg, By Mouth, 2 times a day, PRN for constipation, # 60 tablet, 0 Refills, Maintenance, 09/27/23 13:27:00 EST, Tablet, [facility]/pharmacy #[id number], Partial fill upon patient request if the prescription is for a schedule II opioid drug., 166, cm,... Start Date: 09/27/23 Status: Ordered FLUoxetine 20 mg oral capsule 60 mg, 3, capsule, By Mouth, Daily, TAKE 3 CAPSULES BY MOUTH EVERY DAY IN THE MORNING, # 90 capsule, Refills 11, Tot. Refills 11, Maintenance, 09/12/23 17:44:00 EST, Route to Pharmacy Electronically,[facility] [id number], for... Start Date: 09/12/23 Status: Ordered gabapentin 300 mg oral capsule 300 mg, 1, capsule, By Mouth, 2 times a day, # 60 capsule, Refills 11, Tot. Refills 11, Maintenance, 09/12/23 17:42:00 EST, Route to Pharmacy Electronically, [facility] [id number], For blister pack please., 166, cm, 09/12/23 1... Start Date: 09/12/23 Status: Ordered nitroglycerin 0.4 mg sublingual tablet 1 tablet = 0.4 mg, Sublingual, Every 5 minutes, PRN Chest Pain, # 100 tablet, 0 Refills, Maintenance, 06/08/23 16:23:00 EDT, [id number], Partial fill upon patient request if the prescription is for a schedule II opioid drug., 165, cm,... Start Date: 06/08/23 Status: Ordered oxyCODONE 15 mg oral tablet 1 tablet = 15 mg, By Mouth, Every 6 hours, PRN Pain , Severe, controlled substance agreement. adjusting dose back to previous dose., # 120 tablet, 0 Refills, Maintenance, 09/24/23 12:55:00 EST, Tablet, [id number], Partial fill upon patient req... Start Date: 09/24/23 Status: Ordered propranolol 20 mg oral tablet 2, tablet, By Mouth, 2 times a day, # 120 tablet, Refills 11, Tot. Refills , Maintenance, 09/12/23 17:42:00 EST, Route to Pharmacy Electronically, [facility] [id number], For blister pack please., 166, cm, 09/12/23 13:54:00 E... Start Date: 09/12/23 Status: Ordered risperiDONE 2 mg oral tablet 4 mg, 2, tablet, By Mouth, Daily at bedtime, Rx'd by psychiatry, # 60 tablet, Refills 11, Tot. Refills , Maintenance, 09/12/23 17:44:00 EST, Route to Pharmacy Electronically, [facility] [id number], for blister pack, 166, cm... Start Date: 09/12/23 Status: Ordered tiZANidine 2 mg oral tablet 2 mg, 1, tablet, By Mouth, 3 times a day, Can take two tablets at bedtime. Do not take at the same time as oxycodone., # 90 tablet, Refills 0, Tot. Refills 0, Maintenance, 09/26/23 10:38:00 EST, Route to Pharmacy Electronically, [facility]/pharmacy #[id number], Sp... Start Date: 09/26/23 Status: Ordered traZODone 100 mg oral tablet 50 mg, 0.5, tablet, By Mouth, Daily at bedtime, # 15 tablet, Refills 11, Tot. Refills 11, Maintenance, 09/12/23 17:44:00 EST, Route to Pharmacy Electronically, [facility] [place] [place] - [id number], Partial fill upon patient request if the pr... Start Date: 09/12/23 Status: Ordered Ventolin HFA 108 mcg/inh inhalation aerosol with adapter 2 puffs, Inhalation, 4 times a day, PRN NEEDED FOR WHEEZING, # 18 Gm, 11 Refills, Maintenance, 02/22/23 8:17:00 EDT, [facility]/pharmacy #[id number], 166, cm, 01/18/23 15:56:00 EDT, Height, 91, kg, 01/18/23 15:56:00 EDT, Dry Weight Start Date: 02/22/23 Status: Ordered Problem List Condition Confirmation Course Effective Dates Status H ealth Status Informant Cauda equina syndrome 1 Confirmed Active Chest pain Confirmed Active Depression Confirmed Active Diabetes Confirmed Active Controlled substance agreement signed 05/29/2023 Confirmed Active GERD (gastroesophageal reflux disease) Confirmed Active Hyperlipidemia Confirmed Active HTN (hypertension) Confirmed Active Illiteracy Confirmed Active Lower back pain Confirmed Active Lumbar radiculopathy Confirmed Active Obese class I Confirmed Active Obstructive sleep apnea Confirmed Active Health assisted, active care coordination [facility] [phone] Confirmed Active Fatty infiltration of liver Confirmed Active Tubular adenoma of colon Confirmed Active 1history of this with surgical correction Social History Social History Type Response Smoking Status Former smoker; Other : Quit 2014; entered on: 09/10/17 Sex Patient Care team information Care Team Personnel Name: Elvia Collins RN Position: S RN Member Role: Primary Care Nurse Name: Macarena Lewis RN Position: S RN Member Role: Primary Care Nurse Name: Mallory Lugo RN Position: [facility] RN Member Role: Primary Care Nurse Name: Sima RNCarmen Position: [facility] ED RN W/OE and Tasks Member Role: Primary Care Nurse Name: Dacia Evangelista RN Position: [facility] RN Member Role: Primary Care Nurse Name: Tracey Linares RN Position: [facility] AMB Nurse Member Role: Primary Care Nurse Name: Italia Ortega RN Position: [facility] RN Member Role: Primary Care Nurse Name: Catalina He RN Position: [facility] AMB Nurse Member Role: Primary Care Nurse Name: Jessica Lantigua RN Position: [facility] SN RN Member Role: Primary Care Nurse Name: Catalina Pack RN Position: [facility] SN RN Member Role: Primary Care Nurse Name: Clifford Gerber RN Position: [facility] RN Member Role: Primary Care Nurse Name: Doris Butler RN Position: [facility] RN Member Role: Primary Care Nurse Name: Aziza Poole RN Position: [facility] RN Member Role: Primary Care Nurse Name: Monet Miller RN Position: [facility] RN Member Role: Primary Care Nurse Name: Katheryn Wu RN Position: [facility] SN RN Member Role: Primary Care Nurse Name: Doris Dee RN Position: [facility] RN Member Role: Primary Care Nurse Name: Janae Soto RN Position: [facility] RN Member Role: Primary Care Nurse Name: Daphney Echols LPN Position: [facility] RN Member Role: Primary Care Nurse Name: Nini Odonnell RN Position: [facility] RN Member Role: Primary Care Nurse Name: Jennifer Thakkar RN Position: [facility] RN Member Role: Primary Care Nurse Name: Hyun Ochoa RN Position: [facility] RN Member Role: Primary Care Nurse Name: Yazmin Lay RN Position: [facility] RN Member Role: Primary Care Nurse Name: Nancy Magana RN Position: [facility] RN Member Role: Primary Care Nurse Name: Ranjana Zavala RN Position: [facility] RN Member Role: Primary Care Nurse Name: Melvi Carter RN Position: [facility] OB RN Member Role: Primary Care Nurse Name: Jackson Rosen RN Position: [facility] RN Member Role: Primary Care Nurse Name: Clarissa Rodriguez RN Position: [facility] RN Supv Member Role: Primary Care Nurse Name: Obomanu RN, Ophelia Position: [facility] RN Member Role: Primary Care Nurse Name: Nolvia Mendes RN Position: [facility] RN Member Role: Primary Care Nurse Name: Tyrone Germain RN Position: [facility] RN Member Role: Primary Care Nurse Name: Adi Rees RN Position: [facility] RN Member Role: Primary Care Nurse Name: Orlando Mcallister RN Position: [facility] RN Member Role: Primary Care Nurse Name: Alisa Mcallister RN Position: [facility] RN Member Role: Primary Care Nurse Name: Alonzo Esposito MD Position: [facility] Physician - Primary Care Member Role: PCP Address: Address: [address] [place] [address]- [place] Name: Doroteo Morrow RN Position: [facility] RN Member Role: Primary Care Nurse Address: Address: [address] [place] [address]- Name: Cassidy Masters RN Position: [facility] RN Member Role: Primary Care Nurse Name: Juancarlos Valente RN Position: [facility] [employer] Warper Member Role: Primary Care Nurse Name: Tran Wiseman RN Position: [facility] RN Member Role: Primary Care Nurse Care Team Related Persons Name: SYLVIA BARBOSA Address: [address] [place] [address] Name: GAGE HUNT Address: [address] [place] [address] Name: JOCELYN HUNT Address: home [address] [place] [address]
--- OUTSIDE RECORDS SUMMARY | 2024-05-24 04:28 | XMS_ITS | Continuity of Care Document ---
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 Labview Programmer Name Role Phone Alonzo Esposito MD Primary Care Physician En[place] [facility] Date[place]s): 01/31/24 - 03/01/[address] [address] Attending Physician: Lori Patton Admitting Physician: Lori Patton Referring Physician: Lori Patton Referring Physician: Jonna Graham [place] Allergies, Adverse Reactions, Alerts Substance Reaction Severity Status lisinopril Angioedema Active Shrimp Active Immunizations Given and Recorded Vaccine Date Status Refusal Reason Zoster Vaccine Live 1 11/30/23 Recorded tetanus/diphtheria/pertussis, acel(Tdap) 11/09/23 Given tetanus/diphtheria/pertussis, acel(Tdap) 03/29/19 Given tetanus/diphtheria/pertussis, acel(Tdap) 09/10/17 Given pneumococcal 20-valent conjugate vaccine 08/10/23 Given influenza virus vaccine, inactivated 08/10/23 Give n influenza virus vaccine, inactivated 11/03/22 Give n influenza virus vaccine, inactivated 02/15/22 Give n influenza virus vaccine, inactivated 09/01/20 Give n influenza virus vaccine, inactivated 09/15/19 Give n influenza virus vaccine, inactivated 11/19/18 Give n influenza virus vaccine, inactivated 09/10/17 Give n influenza virus vaccine, inactivated 12/06/15 Give n [id number] 12y+ bivalent booster vax 11/03/22 Given SARS-CoV-2 mRNA (jbnpmwx-rgrx-plegm) vax 01/26/22 Given SARS-CoV-2 mRNA (ibjuila-tkdw-vsndg) vax 12/28/21 Given pneumococcal 23-valent vaccine 04/08/18 Recorded pneumococcal 23-valent vaccine 04/22/17 Recorded pneumococcal 23-valent vaccine 12/21/12 Given 1Result Comment: [facility] Medications acetaminophen 325 mg oral tablet 650 mg, 2, tablet, By Mouth, Every 6 hours, PRN, # 120 tablet, Refills 0, Tot. Refills 0, Maintenance, for pain, 02/27/24 18:13:00 EDT, Route to Pharmacy Electronically, [facility]/pharmacy #[id number], Partial fill upon patient request if the prescription is for... Start Date: 02/27/24 Status: Ordered aspirin 81 mg oral delayed release tablet 81 mg, By Mouth, Daily, # 30 tablet, Refills 11, Tot. Refills 11, Maintenance, 09/12/23 17:42:00 EST, Route to Pharmacy Electronically, [facility] [id number], For blister pack please., 166, cm, 09/12/23 13:54:00 EST, Height, 9... Start Date: 09/12/23 Status: Ordered atorvastatin 40 mg oral tablet 1 tablet = 40 mg, By Mouth, Daily, # 30 tablet, 11 Refills, Maintenance, 09/12/23 17:42:00 EST, Tablet, [facility] [id number], For blister pack please., 166, cm, 09/12/23 13:54:00 EST, Height, 93, kg, 09/06/23 16:15:00 EST, Start Date: 09/12/23 Stop Date: 09/06/24 Status: Ordered diclofenac 1% topical gel 1 application, Topically, 4 times a day, PRN Pain , Mild, not to exceed 16 grams/day/single joint of lower extremities, # 100 Gm, 3 Refills, Maintenance, 11/30/23 9:43:00 EST, Gel, [facility]/pharmacy #[id number], Partial fill upon patient request if the prescript... Start Date: 11/30/23 Status: Ordered FLUoxetine 20 mg oral capsule 60 mg, 3, capsule, By Mouth, Daily, TAKE 3 CAPSULES BY MOUTH EVERY DAY IN THE MORNING, # 90 capsule, Refills 11, Tot. Refills 11, Maintenance, 09/12/23 17:44:00 EST, Route to Pharmacy Electronically,[place], [place] - [id number], for... Start Date: 09/12/23 Status: Ordered gabapentin 800 mg oral tablet 1 tablet = 800 mg, By Mouth, 3 times a day, # 90 tablet, 3 Refills, Maintenance, 02/29/24 9:58:00 EDT, Tablet, [facility]/pharmacy #[id number], Partial fill upon patient request if the prescription is for a schedule II opioid drug., 165, cm, 02/29/24 9:45:00 EDT,... Start Date: 02/29/24 Status: Ordered nitroglycerin 0.4 mg sublingual tablet 1 tablet = 0.4 mg, Sublingual, Every 5 minutes, PRN Chest Pain, # 100 tablet, 0 Refills, Maintenance, 06/08/23 16:23:00 EDT, Tablet, [facility]/pharmacy #[id number], Partial fill upon patient request if the prescription is for a schedule II opioid drug., 165, cm,... Start Date: 06/08/23 Status: Ordered oxyCODONE 15 mg oral tablet 1 tablet = 15 mg, By Mouth, Every 6 hours, PRN Pain , Severe, controlled substance agreement., # 120 tablet, 0 Refills, Maintenance, 02/29/24 10:11:00 EDT, Tablet, [facility]/pharmacy #[id number], Partial fill upon patient request if the prescription is for a sche... Start Date: 02/29/24 Status: Ordered risperiDONE 2 mg oral tablet 4 mg, 2, tablet, By Mouth, Daily at bedtime, Rx'd by psychiatry, # 60 tablet, Refills 11, Tot. Refills 11, Maintenance, 09/12/23 17:44:00 EST, Route to Pharmacy Electronically, [place], [place] - [id number], for blister pack, 166, cm... Start Date: 09/12/23 Status: Ordered tiZANidine 2 mg oral tablet 4 mg, 2, tablet, By Mouth, Every 8 hours, # 180 tablet, Refills 3, Tot. Refills 3, Maintenance, 02/29/24 9:59:00 EDT, Route to Pharmacy Electronically, [facility]/pharmacy #[id number], Partial fill upon patient request if the prescription is for a schedule II opio... Start Date: 02/29/24 Status: Ordered traZODone 100 mg oral tablet 50 mg, 0.5, tablet, By Mouth, Daily at bedtime, # 15 tablet, Refills 11, Tot. Refills 11, Maintenance, 09/12/23 17:44:00 EST, Route to Pharmacy Electronically, [facility] [place], [place] - [id number], Partial fill upon patient request if the pr... Start Date: 09/12/23 Status: Ordered Ventolin HFA 108 mcg/inh inhalation aerosol with adapter 2 puffs, Inhalation, 4 times a day, PRN NEEDED FOR WHEEZING, # 18 Gm, 11 Refills, Maintenance, 02/22/23 8:17:00 EDT, [facility]/pharmacy #[id number], 166, cm, 01/18/23 15:56:00 EDT, Height, 91, kg, 01/18/23 15:56:00 EDT, Dry Weight Start Date: 02/22/23 Status: Ordered Problem List Condition Confirmation Course Effective Dates Status H ealth Status Informant Cauda equina syndrome 1 Confirmed Active Chest pain Confirmed Active Chronic neck pain Confirmed Active Depression Confirmed Active Diabetes Confirmed Active Controlled substance agreement signed 05/29/2023 Confirmed Active GERD (gastroesophageal reflux disease) Confirmed Active Hyperlipidemia Confirmed Active HTN (hypertension) Confirmed Active Illiteracy Confirmed Active Lower back pain Confirmed Active Lumbar back pain Confirmed Active Lumbar radiculopathy Confirmed Active Migraines Confirmed Active Neck pain Confirmed Active Obese class I Confirmed Active Obstructive sleep apnea Confirmed Active Right knee pain Confirmed Active Health skilled nursing, active care coordination [phone] Confirmed Active Cervical stenosis of spine Confirmed Active Fatty infiltration of liver Confirmed Active Tubular adenoma of colon Confirmed Active 1history of this with surgical correction Social History Social History Type Response Smoking Status Former smoker; Other : Quit 2014; entered on: 09/10/17 Sex Patient Care team information Care Team Personnel Name: Elvia Collins RN Position: [facility] RN Member Role: Primary Care Nurse Name: Macarena Lewis RN Position: [facility] RN Member Role: Primary Care Nurse Name: Mallory Lugo RN Position: [facility] RN Member Role: Primary Care Nurse Name: Carmen Gao RN Position: [facility] ED RN W/OE and Tasks Member Role: Primary Care Nurse Name: Dacia Evangelista RN Position: [facility] RN Member Role: Primary Care Nurse Name: Tracey Linares RN Position: [facility] AMB Nurse Member Role: Primary Care Nurse Name: Italia Ortega RN Position: [facility] RN Member Role: Primary Care Nurse Name: Catalina He RN Position: [facility] AMB Nurse Member Role: Primary Care Nurse Name: Cortez Golden RN Position: [facility] RN Member Role: Primary Care Nurse Name: Jessica Lantigua RN Position: [facility] SN RN Member Role: Primary Care Nurse Name: Catalina Pack RN Position: [facility] SN RN Member Role: Primary Care Nurse Name: Clifford Gerber RN Position: [facility] RN Member Role: Primary Care Nurse Name: Doris Butler RN Position: [facility] RN Member Role: Primary Care Nurse Name: Aziza Poole RN Position: [facility] RN Member Role: Primary Care Nurse Name: Katheryn Wu RN Position: [facility] SN RN Member Role: Primary Care Nurse Name: Doris Dee RN Position: [facility] RN Member Role: Primary Care Nurse Name: Janae Soto RN Position: [facility] RN Member Role: Primary Care Nurse Name: Daphney Echols LPN Position: [facility] RN Member Role: Primary Care Nurse Name: Nini Odonnell RN Position: [facility] RN Member Role: Primary Care Nurse Name: Jennifer Thakkar RN Position: [facility] RN Member Role: Primary Care Nurse Name: Hyun Ochoa RN Position: [facility] RN Member Role: Primary Care Nurse Name: Yazmin Lay RN Position: [facility] RN Member Role: Primary Care Nurse Name: Ranjana Zavala RN Position: [facility] RN Member Role: Primary Care Nurse Name: Melvi Carter RN Position: [facility] OB RN Member Role: Primary Care Nurse Name: Jackson Rosen RN Position: [facility] RN Member Role: Primary Care Nurse Name: Clarissa Rodriguez RN Position: [facility] RN Supv Member Role: Primary Care Nurse Name: Ophelia Marie RN Position: [facility] SN RN Member Role: Primary Care Nurse Name: Nolvia Mendes RN Position: [facility] RN Member Role: Primary Care Nurse Name: Tyrone Germain RN Position: [facility] RN Member Role: Primary Care Nurse Name: Adi Rees RN Position: [facility] RN Member Role: Primary Care Nurse Name: Alonzo Esposito MD Position: [facility] Physician - Primary Care Member Role: PCP Address: Address: [address] [place] [address]- Name: Cassidy Masters RN Position: [facility] RN Member Role: Primary Care Nurse Name: Juancarlos Valente RN Position: [facility] Hospital Exercise Physiologist Certified Member Role: Primary Care Nurse Name: Tran Wiseman RN Position: [facility] RN Member Role: Primary Care Nurse Care Team Related Persons Name: SYLVIA BARBOSA Address: [address] [address] Name: GAGE HUNT Address: home [address] [place] [id number] Name: JOCELYN HUNT Address: [address] [place] [address]
--- OUTSIDE RECORDS SUMMARY | 2024-05-24 04:29 | XMS_ITS | Continuity of Care Document ---
Author Organization [facility] Address [address] [place] [address]- Care Team Providers Care Coater Carbon Paper Name Role Phone Alonzo Esposito MD Primary Care Physician Encounter [facility] Date(s): 03/31/24 - 04/30/[address] [id number] Allergies, Adverse Reactions, Alerts Substance [...] influenza virus vaccine, inactivated 12/06/15 Give n [id number] 12y+ bivalent booster vax 11/03/22 Given SARS-CoV-2 mRNA ([id number]-[id number]-gjblr) vax 01/26/22 Given SARS-CoV-2 mRNA ([id number]-qhpv-dowad) vax 12/28/21 Given pneumococcal 23-valent vaccine 04/08/18 Recorded pneumococcal 23-valent vaccine 04/22/17 Recorded pneumococcal 23-valent vaccine 12/21/12 Given 1Result Comment: [facility] acetaminophen 325 mg oral tablet 650 mg, 2, tablet, By Mouth, Every 6 hours, PRN, # 120 tablet, Refills 0, Tot. Refills 0, Maintenance, for pain, 02/27/24 18:13:00 EDT, Route to Pharmacy Electronically, [facility]/pharmacy #[id number], Partial fill upon patient request if the prescription is for... Start Date: 02/27/24 Status: Ordered amoxicillin 500 mg oral capsule 4 capsule = 2,000 mg, By Mouth, Once, given 1 hour prior to the dental procedure, # 4 capsule, 0 Refills, Soft Stop, 03/18/24 8:57:00 EDT, Capsule, [facility]/pharmacy #[id number], Partial fill upon patient request if the prescription is for a schedule II opioid d... Start Date: 03/18/24 Status: Ordered aspirin 81 mg oral delayed release tablet 81 mg, By Mouth, Daily, # 30 tablet, Refills 11, Tot. Refills 11, Maintenance, 09/12/23 17:42:00 EST, Route to Pharmacy Electronically, [place], [place] - [id number], For blister pack please., 166, cm, 09/12/23 13:54:00 EST, Height, 9... Start Date: 09/12/23 Status: Ordered atorvastatin 40 mg oral tablet 1 tablet = 40 mg, By Mouth, Daily, # 30 tablet, 11 Refills, Maintenance, 09/12/23 17:42:00 EST, Tablet, [place], [place] - [id number], For blister pack please., 166, cm, 09/12/23 13:54:00 EST, Height, 93, kg, 09/06/23 16:15:00 EST, Start Date: 09/12/23 Stop Date: 09/06/24 Status: Ordered diclofenac 1% topical gel 1 application, Topically, 4 times a day, PRN Pain , Mild, not to exceed 16 grams/day/single joint of lower extremities, # 100 Gm, 3 Refills, Maintenance, 11/30/23 9:43:00 EST, Gel, [facility]/pharmacy #[id number], Partial fill upon patient request if the prescript... Start Date: 11/30/23 Status: Ordered FLUoxetine 20 mg oral capsule 60 mg, 3, capsule, By Mouth, Daily, TAKE 3 CAPSULES BY MOUTH EVERY DAY IN THE MORNING, # 90 capsule, Refills 11, Tot. Refills 11, Maintenance, 09/12/23 17:44:00 EST, Route to Pharmacy Electronically,[place], [place] - [id number], for... Start Date: 09/12/23 Status: Ordered gabapentin 800 mg oral tablet 1 tablet = 800 mg, By Mouth, 3 times a day, # 90 tablet, 3 Refills, Maintenance, 02/29/24 9:58:00 EDT, Tablet, [facility]/pharmacy #[id number], Partial fill upon patient request if the prescription is for a schedule II opioid drug., 165, cm, 02/29/24 9:45:00 EDT,... Start Date: 02/29/24 Status: Ordered nitroglycerin 0.4 mg sublingual tablet 1 tablet = 0.4 mg, Sublingual, Every 5 minutes, PRN Chest Pain, # 100 tablet, 0 Refills, Maintenance, 06/08/23 16:23:00 EDT, Tablet, [facility]/pharmacy #[id number], Partial fill upon patient request if the prescription is for a schedule II opioid drug., 165, cm,... Start Date: 06/08/23 Status: Ordered oxyCODONE 15 mg oral tablet 1 tablet = 15 mg, By Mouth, Every 6 hours, PRN Pain , Severe, controlled substance agreement., # 120 tablet, 0 Refills, Maintenance, 04/03/24 11:48:00 EDT, Tablet, [facility]/pharmacy #[id number], Partial fill upon patient request if the prescription is for a sche... Start Date: 04/03/24 Status: Ordered propranolol 20 mg oral tablet TAKE 1 TABLET BY MOUTH ONCE DAILY NEEDED Start Date: 03/31/24 Status: Ordered risperiDONE 2 mg oral tablet 4 mg, 2, tablet, By Mouth, Daily at bedtime, Rx'd by psychiatry, # 60 tablet, Refills 11, Tot. Refills 11, Maintenance, 09/12/23 17:44:00 EST, Route to Pharmacy Electronically, [place], [place] - [id number], for blister pack, 166, cm... Start Date: 09/12/23 Status: Ordered tiZANidine 2 mg oral tablet 4 mg, 2, tablet, By Mouth, Every 8 hours, # 180 tablet, Refills 3, Tot. Refills 3, Maintenance, 02/29/24 9:59:00 EDT, Route to Pharmacy Electronically, [facility]/pharmacy #[id number], Partial fill upon patient request if the prescription is for a schedule II opio... Start Date: 02/29/24 Status: Ordered traZODone 100 mg oral tablet 50 mg, 0.5, tablet, By Mouth, Daily at bedtime, # 90 tablet, Refills 0, Maintenance, 03/31/24 14:13:00 EDT, Partial fill upon patient request if the prescription is for a schedule II opioid drug. Start Date: 03/31/24 Status: Ordered Ventolin HFA 108 mcg/inh inhalation aerosol with adapter 2 puffs, Inhalation, 4 times a day, PRN NEEDED FOR WHEEZING, # 18 Gm, 11 Refills, Maintenance, 02/22/23 8:17:00 EDT, [facility]/pharmacy #[id number], 166, cm, 01/18/23 15:56:00 EDT, [...] Active Right knee pain Confirmed Active [facility], active care coordination Netta Mata [phone] Confirmed Active Cervical stenosis of spine Confirmed Active Fatty infiltration of liver Confirmed Active Tubular adenoma of colon Confirmed Active 1history of this with surgical correction Social History Social History Type Response Smoking Status Former smoker; Other : Quit 2014; entered on: 09/10/17 Sex Patient Care team information Care Team Personnel Name: Elvia Collins RN Position: [facility] RN Member Role: Primary Care Nurse Name: Macarena Lewis RN Position: [facility] RN Member Role: Primary Care Nurse Name: Mallory Lugo RN Position: [facility] RN Member Role: Primary Care Nurse Name: Carmen Gao RN Position: [facility] ED RN W/OE and Tasks Member Role: Primary Care Nurse Name: Dacia Evangelista RN Position: [facility] RN Member Role: Primary Care Nurse Name: Tracey Linares RN Position: [facility] AMB Nurse Member Role: Primary Care Nurse Name: Italia Ortega RN Position: [facility] RN Member Role: Primary Care Nurse Name: Catalina He RN Position: [facility] AMB Nurse Member Role: Primary Care Nurse Name: Cortez Golden RN Position: [facility] RN Member Role: Primary Care Nurse Name: Jessica Lantigua RN Position: [facility] SN RN Member Role: Primary Care Nurse Name: Catalina Pack RN Position: [facility] SN RN Member Role: Primary Care Nurse Name: Clifford Gerber RN Position: [facility] RN Member Role: Primary Care Nurse Name: Doris Butler RN Position: [facility] RN Member Role: Primary Care Nurse Name: Aziza Poole RN Position: [facility] RN Member Role: Primary Care Nurse Name: Katheryn Wu RN Position: [facility] SN RN Member Role: Primary Care Nurse Name: Doris Dee RN Position: [facility] RN Member Role: Primary Care Nurse Name: Janae Soto RN Position: [facility] RN Member Role: Primary Care Nurse Name: Daphney Echols LPN Position: [facility] RN Member Role: Primary Care Nurse Name: Nini Odonnell RN Position: [facility] RN Member Role: Primary Care Nurse Name: Jennifer Thakkar RN Position: [facility] RN Member Role: Primary Care Nurse Name: Hyun Ochoa RN Position: [facility] RN Member Role: Primary Care Nurse Name: Ruth Lay RN Position: [facility] RN Member Role: Primary Care Nurse Name: Ranjana Zavala RN Position: [facility] RN Member Role: Primary Care Nurse Name: Melvi Carter RN Position: [facility] OB RN Member Role: Primary Care Nurse Name: Jackson Rosen RN Position: [facility] RN Member Role: Primary Care Nurse Name: Clarissa Rodriguez RN Position: [facility] RN Supv Member Role: Primary Care Nurse Name: Ophelia Marie RN Position: [facility] SN RN Member Role: Primary Care Nurse Name: Nolvia Mendes RN Position: [facility] RN Member Role: Primary Care Nurse Name: Tyrone Germain RN Position: [facility] RN Member Role: Primary Care Nurse Name: Adi Rees RN Position: [facility] RN Member Role: Primary Care Nurse Name: Alonzo Esposito MD Position: [facility] Physician - Primary Care Member Role: PCP Address: Address: [address] [place] [id number]- Name: Cassidy Masters RN Position: [facility] RN Member Role: Primary Care Nurse Name: Juancarlos Valente RN Position: [facility] Member Role: Primary Care Nurse Name: Tran Wiseman RN Position: [facility] RN Member Role: Primary Care Nurse Care Team Related Persons Name: SYLVIA BARBOSA Address: home [address] [place] [id number] Name: GAGE HUNT Address: [address] [place] [address] Name: JOCELYN HUNT Address: home [address] [place] [address]
--- OUTSIDE RECORDS SUMMARY | 2024-05-24 04:29 | XMS_ITS | Continuity of Care Document ---
Author Organization [facility] Address [address] [place] [address] [address], [address] [place] [address]- Care Team Providers Care Health Care Coordinator Name Role Phone Alonzo Esposito MD Primary Care Physician Encounter [facility] [id number] Date(s): 10/12/23 - 12/06/23 [facility] [address] [place] [address] Drive, [address] [place], [place] [address] Attending Physician: Clint Puga MD Referring Physician: Alonzo Esposito MD Allergies, Adverse Reactions, Alerts Substance Reaction [...] influenza virus vaccine, inactivated 12/06/15 Give n [id number] 12y+ bivalent booster vax 11/03/22 Given SARS-CoV-2 mRNA ([id number]-[id number]-[id number]) vax 01/26/22 Given SARS-CoV-2 mRNA (colgyxv-jwbz-cwyxi) vax 12/28/21 Given pneumococcal 23-valent vaccine 04/08/18 Recorded pneumococcal 23-valent vaccine 04/22/17 Recorded pneumococcal 23-valent vaccine 12/21/12 Given 1Result Comment: [facility] aspirin 81 mg oral delayed release tablet 81 mg, By Mouth, Daily, # 30 tablet, Refills 11, Tot. Refills 11, Maintenance, 09/12/23 17:42:00 EST, Route to Pharmacy Electronically, [facility] [id number], For blister pack please., 166, cm, 09/12/23 13:54:00 EST, Height, 9... Start Date: 09/12/23 Status: Ordered atorvastatin 40 mg oral tablet 1 tablet = 40 mg, By Mouth, Daily, # 30 tablet, 11 Refills, Maintenance, 09/12/23 17:42:00 EST, Tablet, [facility] [id number], For blister pack please., 166, cm, 09/12/23 13:54:00 EST, Height, 93, kg, 09/06/23 16:15:00 EST, DrMicheal.. Start Date: 09/12/23 Stop Date: 09/06/24 Status: Ordered diclofenac 1% topical gel 1 application, Topically, 4 times a day, PRN Pain , Mild, not to exceed 16 grams/day/single joint of lower extremities, # 100 Gm, 3 Refills, Maintenance, 11/30/23 9:43:00 EST, Gel, [facility]/pharmacy #[id number], Partial fill upon patient request if the prescript... Start Date: 11/30/23 Status: Ordered FLUoxetine 20 mg oral capsule 60 mg, 3, capsule, By Mouth, Daily, TAKE 3 CAPSULES BY MOUTH EVERY DAY IN THE MORNING, # 90 capsule, Refills 11, Tot. Refills 11, Maintenance, 09/12/23 17:44:00 EST, Route to Pharmacy Electronically,[facility] [id number], for... Start Date: 09/12/23 Status: Ordered gabapentin 600 mg oral tablet = 600 mg, By Mouth, 2 times a day, # 60 tablet, 4 Refills, Maintenance, 11/30/23 9:35:00 EST, Tablet, [facility]/pharmacy #[id number], Partial fill upon patient request if the prescription is for a schedule II opioid drug.Please note dose change for pill pack., 16... Start Date: 11/30/23 Status: Ordered nitroglycerin 0.4 mg sublingual tablet 1 tablet = 0.4 mg, Sublingual, Every 5 minutes, PRN Chest Pain, # 100 tablet, 0 Refills, Maintenance, 06/08/23 16:23:00 EDT, [id number] Partial fill upon patient request if the prescription is for a schedule II opioid drug., 165, cm,... Start Date: 06/08/23 Status: Ordered oxyCODONE 15 mg oral tablet 1 tablet = 15 mg, By Mouth, Every 6 hours, PRN Pain , Severe, controlled substance agreement., # 120 tablet, 0 Refills, Maintenance, 11/30/23 9:38:00 EST, Tablet[id number] Partial fill upon patient request if the prescription is for a sched... Start Date: 11/30/23 Status: Ordered propranolol 20 mg oral tablet 2, tablet, By Mouth, 2 times a day, # 120 tablet, Refills 11, Tot. Refills 11, Maintenance, 09/12/23 17:42:00 EST, Route to Pharmacy Electronically, [facility] [id number], For blister pack please., 166, cm, 09/12/23 13:54:00 E... Start Date: 09/12/23 Status: Ordered risperiDONE 2 mg oral tablet 4 mg, 2, tablet, By Mouth, Daily at bedtime, Rx'd by psychiatry, # 60 tablet, Refills 11, Tot. Refills 11, Maintenance, 09/12/23 17:44:00 EST, Route to Pharmacy Electronically, [facility] [id number], for blister pack, 166, cm... Start Date: 09/12/23 Status: Ordered traZODone 100 mg oral tablet 50 mg, 0.5, tablet, By Mouth, Daily at bedtime, # 15 tablet, Refills 11, Tot. Refills 11, Maintenance, 09/12/23 17:44:00 EST, Route to Pharmacy Electronically, [facility] [id number], Partial fill upon patient request if the [...] Active Right knee pain Confirmed Active Health residential, active care coordination Netta Cruz [facility] [phone] Confirmed Active Fatty infiltration of liver Confirmed Active Tubular adenoma of colon Confirmed Active 1history of this with surgical correction Social History Social History Type Response Smoking Status Former smoker; Other : Quit 2014; entered on: 09/10/17 Sex Patient Care team information Care Team Personnel Name: Elvia Collins RN Position: [facility] RN Member Role: Primary Care Nurse Name: Macarena Lewis RN Position: [facility] RN Member Role: Primary Care Nurse Name: Mallory Lugo RN Position: [facility] RN Member Role: Primary Care Nurse Name: Carmen Gao RN Position: [facility] ED RN W/OE and Tasks Member Role: Primary Care Nurse Name: Dacia Evangelista RN Position: [facility] RN Member Role: Primary Care Nurse Name: Tracey Linares RN Position: [facility] AMB Nurse Member Role: Primary Care Nurse Name: Italia Ortega RN Position: [facility] RN Member Role: Primary Care Nurse Name: Catalina He RN Position: [facility] AMB Nurse Member Role: Primary Care Nurse Name: Cortez Golden RN Position: [facility] RN Member Role: Primary Care Nurse Name: Jessica Lantigua RN Position: [facility] SN RN Member Role: Primary Care Nurse Name: Catalina Pack RN Position: [facility] SN RN Member Role: Primary Care Nurse Name: Clifford Gerber RN Position: [facility] RN Member Role: Primary Care Nurse Name: Doris Butler RN Position: [facility] RN Member Role: Primary Care Nurse Name: Aziza Poole RN Position: [facility] RN Member Role: Primary Care Nurse Name: Monet Miller RN Position: [facility] RN Member Role: Primary Care Nurse Name: Katheryn Wu RN Position: [facility] SN RN Member Role: Primary Care Nurse Name: Doris Dee RN Position: [facility] RN Member Role: Primary Care Nurse Name: Janae Soto RN Position: [facility] RN Member Role: Primary Care Nurse Name: Daphney Echols LPN Position: [facility] RN Member Role: Primary Care Nurse Name: Nini Odonnell RN Position: [facility] RN Member Role: Primary Care Nurse Name: Jennifer Thakkar RN Position: [facility] RN Member Role: Primary Care Nurse Name: Hyun Ochoa RN Position: [facility] RN Member Role: Primary Care Nurse Name: Yazmin Lay RN Position: [facility] RN Member Role: Primary Care Nurse Name: Ranjana Zavala RN Position: [facility] RN Member Role: Primary Care Nurse Name: Melvi Carter RN Position: [facility] OB RN Member Role: Primary Care Nurse Name: Jackson Rosen RN Position: [facility] RN Member Role: Primary Care Nurse Name: Clarissa Rodriguez RN Position: [facility] RN Vikram Member Role: Primary Care Nurse Name: Ophelia Marie RN Position: [facility] RN Member Role: Primary Care Nurse Name: Nolvia Mendes RN Position: [facility] RN Member Role: Primary Care Nurse Name: Tyrone Germain RN Position: [facility] RN Member Role: Primary Care Nurse Name: Adi Rees RN Position: [facility] RN Member Role: Primary Care Nurse Name: Alonzo Esposito MD Position: [facility] Physician - Primary Care Member Role: PCP Address: Address: [address] [place] [address]- [place] Name: Doroteo Morrow RN Position: [facility] RN Member Role: Primary Care Nurse Address: Address: [address] [place] [address]- [place] Name: Cassidy Masters RN Position: [facility] RN Member Role: Primary Care Nurse Name: Ambrosio GOLDEN, Juancarlos Position: [facility] Hospital [employer] Operator [employer] Member Role: Primary Care Nurse Name: Tran Wiseman RN Position: [facility] RN Member Role: Primary Care Nurse Care Team Related Persons Name: SYLVIA BARBOSA Address: home [address] [place] [id number] Name: GAGE HUNT Address: home [address] [place] [id number] Name: JOCELYN HUNT Address: home [address] [place] [address]
--- OUTSIDE RECORDS SUMMARY | 2024-05-24 04:29 | XMS_ITS | Continuity of Care Document ---
Author Organization [facility] Address [address] [place] [address]- Care Team Providers Care Product Development Intern Name Role Phone Dawna Hernandez MD Primary Care Physician Encounter [facility] [place] Date(s): 09/15/22 - 10/15/[address] [id number] Allergies, Adverse Reactions, Alerts Substance Reaction Severity Status lisinopril Angioedema Active Shrimp Active Immunizations Given and Recorded Vaccine Date Status Refusal Reason influenza virus vaccine, inactivated 02/15/22 Give n influenza virus vaccine, inactivated 09/01/20 Give n influenza virus vaccine, inactivated 09/15/19 Give n influenza virus vaccine, inactivated 11/19/18 Give n influenza virus vaccine, inactivated 09/10/17 Give n influenza virus vaccine, inactivated 12/06/15 Give n SARS-CoV-2 mRNA ([id number]-ehxg-ymnnu) vax 01/26/22 Given SARS-CoV-2 mRNA ([id number]-tqci-wuwah) vax 12/28/21 Given tetanus/diphtheria/pertussis, acel(Tdap) 03/29/19 Given tetanus/diphtheria/pertussis, acel(Tdap) 09/10/17 Given pneumococcal 23-valent vaccine 04/08/18 Recorded pneumococcal 23-valent vaccine 04/22/17 Recorded pneumococcal 23-valent vaccine 12/21/12 Given Medications albuterol CFC free 90 mcg/inh inhalation aerosol 2, puffs, Inhalation, Every 6 hours, PRN, # 1 each, Refills 6, Tot. Refills 6, Maintenance, 08/07/22 17:48:00 EDT, Aerosol, Route to Pharmacy Electronically, [id number], [id number], 165, cm, 08/02/22 5:50:00 EDT, He[place]... Start Date: 08/07/22 Status: Ordered Alcohol Wipes See Instructions, # 1 box, Maintenance, please use before testing three times a day: dx type 2 diabetes, 04/04/18 18:52:53 EDT, Compound Start Date: 04/04/18 Status: Ordered atorvastatin 40 mg oral tablet 1 tablet = 40 mg, By Mouth, Daily, # 90 tablet, 3 Refills, Maintenance, 05/11/22 14:22:00 EDT, Tablet, [id number], Partial fill upon patient request if the prescription is for a schedule II opioid drug., 165, cm, 05/05/22 17:06:00 EDT, Height,... Start Date: 05/11/22 Status: Ordered Back Brace See Instructions, # 1 each, Maintenance, Dx DJD, back pain. Wear for support, 08/09/21 10:06:00 EDT, Compound Start Date: 08/09/21 Status: Ordered cetirizine 10 mg oral tablet 1 tablet, By Mouth, Daily, PRN NEEDED FOR ALLERGIES, # 90 tablet, 1 Refills, Maintenance, 04/05/22 7:53:00 EDT, [facility]/pharmacy #[id number], 165, cm, 02/15/22 10:35:00 EDT, Height, 90.7, kg, 02/06/22 19:49:00 EDT, Dry Weight Start Date: 04/05/22 Status: Ordered Colace sodium 100 mg oral capsule 100 mg, 1, capsule, By Mouth, 2 times a day, PRN, # 20 capsule, Refills 0, Tot. Refills 0, Maintenance, for constipation, 09/22/22 9:53:00 EST, Route to Pharmacy Electronically, [facility]/pharmacy #[id number], Partial fill upon patient request if the prescription... Start Date: 09/22/22 Status: Ordered CPAP Machine See Instructions, # 1 units, Refills 0, Tot. Refills 0, Maintenance, CPAP of 8 cm of H2O with a heated humidifier. Recommend ordering a machine with compliance data tracking capabilities and following residual AHI. 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 Start Date: 09/10/17 Status: Ordered FLUoxetine 20 mg oral capsule 60 mg, 3, capsule, By Mouth, Daily, Maintenance, 06/30/19 17:19:41 EDT Start Date: 06/30/19 Status: Ordered Freestyle Lite Lancets See Instructions, # 200 each, Refills 5, Tot. Refills 5, Maintenance, use as directed for Type 2 Diabetes Mellitus. Check sugars three times a day, 12/28/20 11:42:00 EDT, Compound, 164, cm, 12/23/20 8:38:00 EST, Height, 97, kg, 12/18/20 22:05:00 EST,... Start Date: 12/28/20 Stop Date: 06/26/21 Status: Ordered Freestyle Lite Monitor See Instructions, # 1 each, Refills 0, Tot. Refills 0, Maintenance, use as directed for Type 2 Diabetes Mellitus. check sugars three times a day. ICD-10 code: E11.9, 11/19/18 10:24:52 EST, Compound Start Date: 11/19/18 Stop Date: 12/19/18 Status: Ordered Freestyle Lite Test Strips See Instructions, # 200 each, Maintenance, use as directed for Type 2 Diabetes Mellitus. check sugars three times a day, 12/28/20 11:42:00 EDT, Compound, 164, cm, 12/23/20 8:38:00 EST, Height, 97, kg, 12/18/20 22:05:00 EST, Dry Weight Start Date: 12/28/20 Stop Date: 01/27/21 Status: Ordered gabapentin 800 mg oral tablet 1 tablet = 800 mg, By Mouth, 3 times a day, # 90 tablet, 11 Refills, Maintenance, 06/15/22 17:40:00EDT, Tablet, [facility]/pharmacy #[id number], Partial fill upon patient request if the prescription is for a schedule II opioid drug., 165, cm, 06/15/22 14:29:00 ED... Start Date: 06/15/22 Status: Ordered ibuprofen 600 mg oral tablet 600 mg, 1, tablet, By Mouth, 3 times a day, # 90 tablet, Refills 0, Tot. Refills 0, Maintenance, 09/06/22 21:10:00 EST, Route to Pharmacy Electronically, [facility]/pharmacy #[id number], Partial fill upon patientrequest if the prescription is for a schedule II op... Start Date: 09/06/22 Status: Ordered Knee Support See Instructions, # 1 each, Maintenance, Dx: M25.562. Left knee neoprene sleeve, 02/15/22 12:58:00 EDT, Supply Start Date: 02/15/22 Status: Ordered Knee Support See Instructions, # 1 each, Maintenance, Dx: M25.561. Right knee neoprene sleeve, 02/15/22 13:11:00EDT, Supply Start Date: 02/15/22 Status: Ordered lidocaine 5% topical film 1 patch, Topically, Daily, PRN NEEDED FOR MODERATE PAIN, REMOVE AFTER 12 HOURS (12 HRS ON, 12 HRS OFF), # 10 patch, 0 Refills, Maintenance, 07/20/22 15:26:00 EDT, [facility]ORE [id number], 10, APPLY 1 PATCH DAILY NEEDED FOR MODERATE PAIN..REMOVE AFTER 12... Start Date: 07/20/22 Status: Ordered PAP Supplies - Mask, Tubing, Filters, Head Gear, Chin Strap, and Water Chamber PAP Supplies - Mask, Tubing, Filters, Head Gear, Chin Strap, and Water Chamber, See Instructions, #1 each, Refills 12, Tot. Refills 12, Maintenance, to be used with CPAP machine for dx: MARIA G G47.30, 08/19/20 14:29:00 EST, Compound Start Date: 08/19/20 Status: Ordered PAP Supplies - Mask, Tubing, Filters, Head Gear, Chin Strap, and Water Chamber PAP Supplies - Mask, Tubing, Filters, Head Gear, Chin Strap, and Water Chamber, See Instructions, #1 each, Refills 12, Tot. Refills 12, Maintenance, to be used with CPAP machine for dx: MARIA G G47.30, 05/03/22 12:41:00 EDT, Compound Start Date: 05/03/22 Status: Ordered prazosin 2 mg oral capsule 1 capsule = 2 mg, By Mouth, Daily, # 90 capsule, 0 Refills, Maintenance, 10/11/20 3:29:00 EST, Capsule, Partial fill upon patient request if the prescription is for a schedule II opioid drug. Start Date: 10/11/20 Status: Ordered propranolol 20 mg oral tablet 2, tablet, By Mouth, 2 times a day, # 120 tablet, Refills 5, Route to [facility]ically, [id number], 166, cm, 12/28/21 10:33:00 EDT, Height, 91.9, kg, 12/19/21 12:48:00 EST, Dry Weight Start Date: 01/06/22 Status: Ordered risperiDONE 2 mg oral tablet 4 mg, 2, tablet, By Mouth, Daily at bedtime, Rx'd by psychiatry, Maintenance, 01/28/19 20:39:47 EDT Start Date: 01/28/19 Status: Ordered Rollator Walker with Seat and Hand Brakes Rollator Walker with Seat and Hand Brakes, See Instructions, # 1 each, Refills 0, Tot. Refills 0, Maintenance, dx: M54.5 to be used to help with mobility, 11/24/20 13:12:00 EST, Supply Start Date: 11/24/20 Status: Ordered Shower Bench Shower Bench, See Instructions, # 1 each, Refills 0, Tot. Refills 0, Maintenance, to be used to help with hygeine dx: M54.5, 01/29/20 17:13:00 EDT, Supply Start Date: 01/29/20 Status: Ordered Ventolin HFA 108 mcg/inh inhalation aerosol with adapter 2 puffs, Inhalation, 4 times a day, PRN for wheezing, # 8 Gm, 0 Refills, Maintenance, 08/18/22 22:09:00 EDT, Aerosol, [facility]/pharmacy #[id number], Partial fill upon patient request if the prescription is for a schedule II opioid drug., 165, cm, 08/18/22 20:34:... Start Date: 08/18/22 Status: Ordered Walker See Instructions, # 1 units, Maintenance, Use as dircted, 07/05/19 14:32:18 EDT, Compound Start Date: 07/05/19 Status: Ordered Problem List Condition Confirmation Course Effective Dates Status H ealth Status Informant Chest pain Confirmed Active Chest pain Confirmed Active COVID-19 Confirmed Active COVID-19 Confirmed Active Depression Confirmed Active Diabetes Confirmed Active Controlled substance agreement signed 12/28/2021 Confirmed Active GERD (gastroesophageal reflux disease) Confirmed Active Hyperlipidemia Confirmed Active Lower back pain Confirmed Active Obese class I Confirmed Active Obstructive sleep apnea Confirmed Active [facility], active care coordination [facility] [phone] Confirmed Active Fatty infiltration of liver Confirmed Active Tubular adenoma of colon Confirmed Active Social History Social History Type Response Smoking Status Former smoker; Other : Quit 2014; entered on: 09/10/17 Sex Patient Care team information Care Team Personnel Name: Macarena Lewis RN Position: [facility] RN Member Role: Primary Care Nurse Name: Mallory Lugo RN Position: [facility] RN Member Role: Primary Care Nurse Name: Carmen Gao RN Position: [facility] RN Member Role: Primary Care Nurse Name: Dacia Evangelista RN Position: [facility] RN Member Role: Primary Care Nurse Name: Tracey Linares RN Position: [facility] PCO RN Member Role: Primary Care Nurse Name: Italia Ortega RN Position: [facility] RN Member Role: Primary Care Nurse Name: Catalina He RN Position: [facility] PCO RN Member Role: Primary Care Nurse Name: Jessica Lantigua RN Position: [facility] SN RN Member Role: Primary Care Nurse Name: Clifford Gerber RN Position: [facility] RN Member Role: Primary Care Nurse Name: Peter Monahan RN Position: [facility] RN Member Role: Primary Care Nurse Name: Aziza Poole RN Position: [facility] RN Member Role: Primary Care Nurse Name: Monet Miller RN Position: [facility] RN Member Role: Primary Care Nurse Name: Katheryn Wu RN Position: [facility] RN Member Role: Primary Care Nurse Name: Doris Dee RN Position: [facility] RN Member Role: Primary Care Nurse Name: Janae Soto RN Position: [facility] RN Member Role: Primary Care Nurse Name: Hyun Ochoa RN Position: [facility] RN Member Role: Primary Care Nurse Name: Nancy Magana RN Position: [facility] RN Member Role: Primary Care Nurse Name: Ranjana Zavala RN Position: [facility] RN Member Role: Primary Care Nurse Name: Melvi Carter RN Position: [facility] OB RN Member Role: Primary Care Nurse Name: Jackson Rosen RN Position: [facility] RN Member Role: Primary Care Nurse Name: Clarissa Rodriguez Position: [facility] RN Supv Member Role: Primary Care Nurse Name: Ophelia Marie RN Position: [facility] RN Member Role: Primary Care Nurse Name: Nolvia Mendes RN Position: [facility] RN Member Role: Primary Care Nurse Name: Adi Rees RN Position: [facility] RN Member Role: Primary Care Nurse Name: Catalina Torres RN Position: [facility] RN Member Role: Primary Care Nurse Name: Doroteo Morrow RN Position: [facility] RN Member Role: Primary Care Nurse Address: Address: [address] [place] [id number]- Name: Cassidy Masters RN Position: [facility] RN Member Role: Primary Care Nurse Name: Juancarlos Valente RN Position: [facility] [employer] Member Role: Primary Care Nurse Name: Dawna Hernandez MD Position: [facility] Primary Care Physician Member Role: PCP Address: Address: [address] [place] [id number]- Care Team Related Persons Name: CHELSEY SYLVIA Address: home [address] [place] [address] Name: GAGE HUNT Address: [address] [place] [address] Name: JOCELYN HUNT Address: home [address] [place] [address]
--- OUTSIDE RECORDS SUMMARY | 2024-05-24 04:29 | XMS_ITS | Continuity of Care Document ---
Author Organization [facility] Address [address] [place] [address] Donald ness, [address] [place] [address]- Care Team Providers Care Pain Management Specialist Name Role Phone Alonzo Esposito MD Primary Care Physician [phone] Encounter [facility] Date(s): 03/18/24 - 03/25/24 [facility] [address] [place] [address] Drive [address] [place], [place] [address] Attending Physician: Clint Puga MD Referring Physician: [...] influenza virus vaccine, inactivated 12/06/15 Give n [id number] 12y+ bivalent booster vax 11/03/22 Given SARS-CoV-2 mRNA ([id number]-[id number]-bxcdt) vax 01/26/22 Given SARS-CoV-2 mRNA (afuahgg-ocro-monri) vax 12/28/21 Given pneumococcal 23-valent vaccine 04/08/18 Recorded pneumococcal 23-valent vaccine 04/22/17 Recorded pneumococcal 23-valent vaccine 12/21/12 Given 1Result Comment[facility] acetaminophen 325 mg oral tablet 650 mg, 2, tablet, By Mouth, Every 6 hours, PRN, # 120 tablet, Refills 0, Tot. Refills 0, Maintenance, for pain, 02/27/24 18:13:00 EDT, Route to Pharmacy Electronically, [facility]/pharmacy #[id number], Partial fill upon patient request if the prescription is for... Start Date: 02/27/24 Status: Ordered amoxicillin 500 mg oral capsule 4 capsule = 2,000 mg, By Mouth, Once, given 1 hour prior to the dental procedure, # 4 capsule, 0 Refills, Soft Stop, 03/18/24 8:57:00 EDT, Capsule, [facility]/pharmacy #[id number], Partial fill upon patient request if the prescription is for a schedule II opioid d... Start Date: 03/18/24 Status: Ordered aspirin 81 mg oral delayed release tablet 81 mg, By Mouth, Daily, # 30 tablet, Refills 11, Tot. Refills 11, Maintenance, 09/12/23 17:42:00 EST, Route to Pharmacy Electronically, [place], [place] - [id number], For blister pack please., 166, cm, 09/12/23 13:54:00 EST, Height, 9... Start Date: 09/12/23 Status: Ordered atorvastatin 40 mg oral tablet 1 tablet = 40 mg, By Mouth, Daily, # 30 tablet, 11 Refills, Maintenance, 09/12/23 17:42:00 EST, Tablet, [place], [place] - [id number], For blister pack please., 166, cm, 09/12/23 13:54:00 EST, Height, 93, kg, 09/06/23 16:15:00 EST, Start Date: 09/12/23 Stop Date: 09/06/24 Status: Ordered diclofenac 1% topical gel 1 application, Topically, 4 times a day, PRN Pain , Mild, not to exceed 16 grams/day/single joint of lower extremities, # 100 Gm, 3 Refills, Maintenance, 11/30/23 9:43:00 EST, Gel, [facility]/pharmacy #[id number], Partial fill upon patient request if the prescript... Start Date: 11/30/23 Status: Ordered FLUoxetine 20 mg oral capsule 60 mg, 3, capsule, By Mouth, Daily, TAKE 3 CAPSULES BY MOUTH EVERY DAY IN THE MORNING, # 90 capsule, Refills 11, Tot. Refills 11, Maintenance, 09/12/23 17:44:00 EST, Route to Pharmacy Electronically,[facility] [id number], for... Start Date: 09/12/23 Status: Ordered gabapentin 800 mg oral tablet 1 tablet = 800 mg, By Mouth, 3 times a day, # 90 tablet, 3 Refills, Maintenance, 02/29/24 9:58:00 EDT, [id number] Partial fill upon patient request if the prescription is for a schedule II opioid drug., 165, cm, 02/29/24 9:45:00 EDT,... Start Date: 02/29/24 Status: Ordered nitroglycerin 0.4 mg sublingual tablet 1 tablet = 0.4 mg, Sublingual, Every 5 minutes, PRN Chest Pain, # 100 tablet, 0 Refills, Maintenance, 06/08/23 16:23:00 EDT, Tablet, [facility]/pharmacy #[id number], Partial fill upon patient request if the prescription is for a schedule II opioid drug., 165, cm,... Start Date: 06/08/23 Status: Ordered oxyCODONE 15 mg oral tablet 1 tablet = 15 mg, By Mouth, Every 6 hours, PRN Pain , Severe, controlled substance agreement., # 120 tablet, 0 Refills, Maintenance, 02/29/24 10:11:00 EDT, Tablet, [facility]/pharmacy #[id number], Partial fill upon patient request if the prescription is for a sche... Start Date: 02/29/24 Status: Ordered risperiDONE 2 mg oral tablet 4 mg, 2, tablet, By Mouth, Daily at bedtime, Rx'd by psychiatry, # 60 tablet, Refills 11, Tot. Refills 11, Maintenance, 09/12/23 17:44:00 EST, Route to Pharmacy Electronically, [facility] [id number], for blister pack, 166, cm... Start Date: 09/12/23 Status: Ordered tiZANidine 2 mg oral tablet 4 mg, 2, tablet, By Mouth, Every 8 hours, # 180 tablet, Refills 3, Tot. Refills 3, Maintenance, 02/29/24 9:59:00 EDT, Route to Pharmacy Electronically, [facility]/pharmacy #[id number], Partial fill upon patient request if the prescription is for a schedule II opio... Start Date: 02/29/24 Status: Ordered traZODone 100 mg oral tablet 50 mg, 0.5, tablet, By Mouth, Daily at bedtime, # 15 tablet, Refills 11, Tot. Refills 11, Maintenance, 09/12/23 17:44:00 EST, Route to Pharmacy Electronically, [facility] [place], [place] - [id number], Partial fill upon patient request if the pr... Start Date: 09/12/23 Status: Ordered Ventolin HFA 108 mcg/inh inhalation aerosol with adapter 2 puffs, Inhalation, 4 times a day, PRN NEEDED FOR WHEEZING, # 18 Gm, 11 Refills, Maintenance, 02/22/23 8:17:00 EDT, [facility]/pharmacy #[id number], 166, cm, 01/18/23 15:56:00 EDT, [...] Active Right knee pain Confirmed Active [facility], active care coordination PADMINI Mata [phone] Confirmed Active Cervical stenosis of spine Confirmed Active Fatty infiltration of liver Confirmed Active Tubular adenoma of colon Confirmed Active 1history of this with surgical correction Vital Signs Most recent to oldest [Reference Range]: 1 Height 165 cm (03/18/24 10:07 AM) Weight 88.8 kg (03/18/24 10:07 AM) Body Mass Index [18.5-24.99 kg/m2] 32.62 kg/m2 *>HHI* (03/18/24 10:07 AM) Social History Social History Type Response Smoking Status Former smoker; Other : Quit 2014; entered on: 09/10/17 Sex Patient Care team information Care Team Personnel Name: Elvia Collins RN Position: [facility] RN Member Role: Primary Care Nurse Name: Macarena Lewis RN Position: [facility] RN Member Role: Primary Care Nurse Name: Mallory Lugo RN Position: [facility] RN Member Role: Primary Care Nurse Name: Carmen Gao RN Position: [facility] ED RN W/OE and Tasks Member Role: Primary Care Nurse Name: Dacia Evangelista RN Position: [facility] RN Member Role: Primary Care Nurse Name: Tracey Linares RN Position: [facility] AMB Nurse Member Role: Primary Care Nurse Name: Italia Ortega RN Position: [facility] RN Member Role: Primary Care Nurse Name: Catalina He RN Position: [facility] AMB Nurse Member Role: Primary Care Nurse Name: Cortez Golden RN Position: [facility] RN Member Role: Primary Care Nurse Name: Jessica Lantigua RN Position: [facility] SN RN Member Role: Primary Care Nurse Name: Catalina Pack RN Position: [facility] SN RN Member Role: Primary Care Nurse Name: Clifford Gerber RN Position: [facility] RN Member Role: Primary Care Nurse Name: Doris Butler RN Position: [facility] RN Member Role: Primary Care Nurse Name: Aziza Poole RN Position: [facility] RN Member Role: Primary Care Nurse Name: Katheryn Wu RN Position: [facility] SN RN Member Role: Primary Care Nurse Name: Doris Dee RN Position: [facility] RN Member Role: Primary Care Nurse Name: Janae Soto RN Position: [facility] RN Member Role: Primary Care Nurse Name: Daphney Echols LPN Position: [facility] RN Member Role: Primary Care Nurse Name: Nini Odonnell RN Position: [facility] RN Member Role: Primary Care Nurse Name: Jennifer Thakkar RN Position: [facility] RN Member Role: Primary Care Nurse Name: Hyun Ochoa RN Position: [facility] RN Member Role: Primary Care Nurse Name: Ruth Lay RN Position: [facility] RN Member Role: Primary Care Nurse Name: Ranjana Zavala RN Position: [facility] RN Member Role: Primary Care Nurse Name: Melvi Carter RN Position: [facility] OB RN Member Role: Primary Care Nurse Name: Jackson Rosen RN Position: [facility] RN Member Role: Primary Care Nurse Name: Clarissa Rodriguez RN Position: [facility] RN Supv Member Role: Primary Care Nurse Name: Ophelia Marie RN Position: [facility] SN RN Member Role: Primary Care Nurse Name: Nolvia Mendes RN Position: [facility] RN Member Role: Primary Care Nurse Name: Tyrone Germain RN Position: [facility] RN Member Role: Primary Care Nurse Name: Adi Rees RN Position: [facility] RN Member Role: Primary Care Nurse Name: Alonzo Esposito MD Position: [facility] Physician - Primary Care Member Role: PCP Address: Address: [address] [place] [address]- Name: Cassidy Masters RN Position: [facility] RN Member Role: Primary Care Nurse Name: Juancarlos Valente RN Position: [facility] Hospital [employer] Installer Member Role: Primary Care Nurse Name: Tran Wiseman RN Position: [facility] RN Member Role: Primary Care Nurse Care Team Related Persons Name: SYLVIA BARBOSA Address: home [address] [place] [id number] Name: GAGE HUNT Address: home [address] [place] [address] Name: JOCELYN HUNT Address: home [address] [place] [address]
--- OUTSIDE RECORDS SUMMARY | 2024-05-24 04:30 | XMS_ITS | Continuity of Care Document ---
Author Organization [facility] Address [address] [place] [address]- Care Team Providers Care Tobacco Sampler Name Role Phone Alonzo Esposito MD Primary Care Physician [phone] Encounter [facility] [place] Date(s): 12/31/23 - 02/16/[address] [address] Attending Physician: Not on Staff, [...] influenza virus vaccine, inactivated 12/06/15 Give n [id number] 12y+ bivalent booster vax 11/03/22 Given SARS-CoV-2 mRNA ([id number]) vax 01/26/22 Given SARS-CoV-2 mRNA ([id number]) vax 12/28/21 Given pneumococcal 23-valent vaccine 04/08/18 Recorded pneumococcal 23-valent vaccine 04/22/17 Recorded pneumococcal 23-valent vaccine 12/21/12 Given 1Result Comment: [facility] aspirin 81 mg oral delayed release tablet 81 mg, By Mouth, Daily, # 30 tablet, Refills 11, Tot. Refills 11, Maintenance, 09/12/23 17:42:00 EST, Route to Pharmacy Electronically, [facility] [id number], For blister pack please., 166, cm, 09/12/23 13:54:00 EST, Height, 9... Start Date: 09/12/23 Status: Ordered atorvastatin 40 mg oral tablet 1 tablet = 40 mg, By Mouth, Daily, # 30 tablet, 11 Refills, Maintenance, 09/12/23 17:42:00 EST, Tablet, [facility] [id number], For blister pack please., 166, cm, 09/12/23 13:54:00 EST, Height, 93, kg, 09/06/23 16:15:00 EST, [email or web address].Micheal Start Date: 09/12/23 Stop Date: 09/06/24 Status: Ordered diclofenac 1% topical gel 1 application, Topically, 4 times a day, PRN Pain , Mild, not to exceed 16 grams/day/single joint of lower extremities, # 100 Gm, 3 Refills, Maintenance, 11/30/23 9:43:00 EST, Gel, [facility]/pharmacy #[id number], Partial fill upon patient request if the prescript... Start Date: 11/30/23 Status: Ordered FLUoxetine 20 mg oral capsule 60 mg, 3, capsule, By Mouth, Daily, TAKE 3 CAPSULES BY MOUTH EVERY DAY IN THE MORNING, # 90 capsule, Refills 11, Tot. Refills 11, Maintenance, 09/12/23 17:44:00 EST, Route to Pharmacy Electronically,[place], [place] - [id number], for... Start Date: 09/12/23 Status: Ordered gabapentin 600 mg oral tablet = 600 mg, By Mouth, 2 times a day, # 60 tablet, 4 Refills, Maintenance, 11/30/23 9:35:00 EST, Tablet, [facility]/pharmacy #[id number], Partial fill upon patient request if the prescription is for a schedule II opioid drug.Please note dose change for pill pack., 16... Start Date: 11/30/23 Status: Ordered nitroglycerin 0.4 mg sublingual tablet 1 tablet = 0.4 mg, Sublingual, Every 5 minutes, PRN Chest Pain, # 100 tablet, 0 Refills, Maintenance, 06/08/23 16:23:00 EDT, [id number] Partial fill upon patient request if the prescription is for a schedule II opioid drug., 165, cm,... Start Date: 06/08/23 Status: Ordered oxyCODONE 15 mg oral tablet 1 tablet = 15 mg, By Mouth, Every 6 hours, PRN Pain , Severe, controlled substance agreement., # 120 tablet, 0 Refills, Maintenance, 02/07/24 10:09:00 EDT, Tablet, [facility]/pharmacy #[id number], Partial fill upon patient request if the prescription is for a sche... Start Date: 02/07/24 Status: Ordered propranolol 20 mg oral tablet 2, tablet, By Mouth, 2 times a day, # 120 tablet, Refills 11, Tot. Refills 11, Maintenance, 09/12/23 17:42:00 EST, Route to Pharmacy Electronically, [facility] [id number], For blister pack please., 166, cm, 09/12/23 13:54:00 E... Start Date: 09/12/23 Status: Ordered risperiDONE 2 mg oral tablet 4 mg, 2, tablet, By Mouth, Daily at bedtime, Rx'd by psychiatry, # 60 tablet, Refills 11, Tot. Refills 11, Maintenance, 09/12/23 17:44:00 EST, Route to Pharmacy Electronically, [facility] [id number], for blister pack, 166, cm... Start Date: 09/12/23 Status: Ordered traZODone 100 mg oral tablet 50 mg, 0.5, tablet, By Mouth, Daily at bedtime, # 15 tablet, Refills 11, Tot. Refills 11, Maintenance, 09/12/23 17:44:00 EST, Route to Pharmacy Electronically, [facility] [id number], Partial fill upon patient request if the [...] Active Right knee pain Confirmed Active Health detention, active care coordination Netta Nancy [facility] [phone] Confirmed Active Cervical stenosis of spine Confirmed Active Fatty infiltration of liver Confirmed Active Tubular adenoma of colon Confirmed Active 1history of this with surgical correction Social History Social History Type Response Smoking Status Former smoker; Other : Quit 2014; entered on: 09/10/17 Sex Patient Care team information Care Team Personnel Name: Elvia Collins RN Position: [facility] RN Member Role: Primary Care Nurse Name: Macarena Lewis RN Position: [facility] RN Member Role: Primary Care Nurse Name: Mallory Lugo RN Position: [facility] RN Member Role: Primary Care Nurse Name: Carmen Gao RN Position: [facility] ED RN W/OE and Tasks Member Role: Primary Care Nurse Name: Dacia Evangelista RN Position: [facility] RN Member Role: Primary Care Nurse Name: Tracey Linares RN Position: [facility] AMB Nurse Member Role: Primary Care Nurse Name: Italia Ortega RN Position: [facility] RN Member Role: Primary Care Nurse Name: Catalina He RN Position: [facility] AMB Nurse Member Role: Primary Care Nurse Name: Cortez Golden RN Position: [facility] RN Member Role: Primary Care Nurse Name: Jessica Lantigua RN Position: [facility] SN RN Member Role: Primary Care Nurse Name: Catalina Pack RN Position: [facility] SN RN Member Role: Primary Care Nurse Name: Clifford Gerber RN Position: [facility] RN Member Role: Primary Care Nurse Name: Doris Butler RN Position: [facility] RN Member Role: Primary Care Nurse Name: Aziza Poole RN Position: [facility] RN Member Role: Primary Care Nurse Name: Katheryn Wu RN Position: [facility] RN Member Role: Primary Care Nurse Name: Doris Dee RN Position: [facility] RN Member Role: Primary Care Nurse Name: Janae Soto RN Position: [facility] RN Member Role: Primary Care Nurse Name: Daphney Echols LPN Position: [facility] RN Member Role: Primary Care Nurse Name: Nini Odonnell RN Position: [facility] RN Member Role: Primary Care Nurse Name: Jennifer Thakkar RN Position: [facility] RN Member Role: Primary Care Nurse Name: Hyun Ochoa RN Position: [facility] RN Member Role: Primary Care Nurse Name: Yazmin Lay RN Position: [facility] RN Member Role: Primary Care Nurse Name: Ranjana Zavala RN Position: [facility] RN Member Role: Primary Care Nurse Name: Melvi Carter RN Position: [facility] OB RN Member Role: Primary Care Nurse Name: Jackson Rosen RN Position: [facility] RN Member Role: Primary Care Nurse Name: Clarissa Rodriguez RN Position: [facility] RN Supv Member Role: Primary Care Nurse Name: Ophelia Marie RN Position: [facility] RN Member Role: Primary Care Nurse Name: Nolvia Mendes RN Position: [facility] RN Member Role: Primary Care Nurse Name: Tyrone Germain RN Position: [facility] RN Member Role: Primary Care Nurse Name: Adi Rees RN Position: [facility] RN Member Role: Primary Care Nurse Name: Alonzo Esposito MD Position: [facility] Physician - Primary Care Member Role: PCP Address: Address: [address] [place] [address]- Name: Cassidy Masters RN Position: [facility] RN Member Role: Primary Care Nurse Name: Juancarlos Valente RN Position: [facility] Hospital Typewriter Assembler Member Role: Primary Care Nurse Name: Tran Wiseman RN Position: [facility] RN Member Role: Primary Care Nurse Care Team Related Persons Name: SYLVIA BARBOSA Address: [address] [address] Name: GAGE HUNT Address: home [address] [place] [id number] Name: JOCELYN HUNT Address: home [address] [place] [address]
--- OUTSIDE RECORDS SUMMARY | 2024-05-24 04:30 | XMS_ITS | Continuity of Care Document ---
Author Organization [facility] Address [address] [place] [address]- Care Team Providers Care Laboratory Helper Name Role Phone Dawna Hernandez MD Primary Care Physician [place] [facility] [place]04[place] - 01/03/[address] [address] Allergies, Adverse Reactions, Alerts Substance Reaction Severity Status lisinopril Angioedema Active Shrimp Active Immunizations Given and Recorded Vaccine Date Status Refusal Reason [id number] 12y+ bivalent booster vax 11/03/22 Given influenza virus vaccine, inactivated 11/03/22 Give n influenza virus vaccine, inactivated 02/15/22 Give n influenza virus vaccine, inactivated 09/01/20 Give n influenza virus vaccine, inactivated 09/15/19 Give n influenza virus vaccine, inactivated 11/19/18 Give n influenza virus vaccine, inactivated 09/10/17 Give n influenza virus vaccine, inactivated 12/06/15 Give n SARS-CoV-2 mRNA ([id number]) vax 01/26/22 Given SARS-CoV-2 mRNA ([id number]-[id number]-[id number]) vax 12/28/21 Given tetanus/diphtheria/pertussis, acel(Tdap) 03/29/19 Given tetanus/diphtheria/pertussis, acel(Tdap) 09/10/17 Given pneumococcal 23-valent vaccine 04/08/18 Recorded pneumococcal 23-valent vaccine 04/22/17 Recorded pneumococcal 23-valent vaccine 12/21/12 Given Medications Alcohol Wipes See Instructions, # 1 box, Maintenance, please use before testing three times a day: dx type 2 diabetes, 04/04/18 18:52:53 EDT, Compound Start Date: 04/04/18 Status: Ordered atorvastatin 40 mg oral tablet 1 tablet = 40 mg, By Mouth, Daily, # 90 tablet, 3 Refills, Maintenance, 05/11/22 14:22:00 EDT, Tablet, [facility]/pharmacy #[id number], Partial fill upon patient request if the prescription is for a schedule II opioid drug., 165, cm, 05/05/22 17:06:00 EDT, Height,... Start Date: 05/11/22 Status: Ordered Back Brace See Instructions, # 1 each, Maintenance, Dx DJD, back pain. Wear for support, 11/15/22 9:43:00 EST,Compound, 175, cm, 11/15/22 9:07:00 EST, Height, 88.2, kg, 09/21/22 0:33:00 EST, Dry Weight Start Date: 11/15/22 Status: Ordered Bed Rail Bed Rail, See Instructions, # 1 each, Refills 0, Tot. Refills 0, Maintenance, dx: M54.5 M96.1 G83.4LON: 99, 01/02/23 13:18:00 EDT, Supply Start Date: 01/02/23 Status: Ordered cetirizine 10 mg oral tablet 1 tablet, By Mouth, Daily, PRN NEEDED FOR ALLERGIES, # 90 tablet, 1 Refills, Maintenance, 04/05/22 7:53:00 EDT, [facility]/pharmacy #[id number], 165, cm, 02/15/22 10:35:00 EDT, Height, 90.7, kg, 02/06/22 19:49:00 EDT, Dry Weight Start Date: 04/05/22 Status: Ordered Colace sodium 100 mg oral capsule 100 mg, 1, capsule, By Mouth, 2 times a day, PRN, # 20 capsule, Refills 0, Tot. Refills 0, Maintenance, for constipation, 09/22/22 9:53:00 EST, Route to Pharmacy Electronically, [facility]/pharmacy #[id number], Partial fill upon patient request if the prescription... Start Date: 09/22/22 Status: Ordered CPAP Machine See Instructions, # 1 units, Refills 0, Tot. Refills 0, Maintenance, CPAP of 8 cm of H2O with a heated humidifier. Recommend ordering a machine with compliance data tracking capabilities and following residual AHI. 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 Start Date: 09/10/17 Status: Ordered Dual Channel Transcutaneous Electrical Nerve Stimulator Dual Channel Transcutaneous Electrical Nerve Stimulator, See Instructions, # 1 each, Refills 0, Tot. Refills 0, Maintenance, to help with managing back pain dx: M54.5, 12/12/22 12:22:00 EST, Supply Start Date: 12/12/22 Status: Ordered FLUoxetine 20 mg oral capsule [...] tablet, 11 Refills, Maintenance, 06/15/22 17:40:00EDT, Tablet, [facility]/pharmacy #[id number], Partial fill upon patient request if the prescription is for a schedule II opioid drug., 165, cm, 06/15/22 14:29:00 ED... Start Date: 06/15/22 Status: Ordered ibuprofen 600 mg oral tablet 600 mg, 1, tablet, By Mouth, 3 times a day, # 90 tablet, Refills 0, Tot. Refills 0, Maintenance, 09/06/22 21:10:00 EST, [id number] fill upon patientrequest if the [...] 13:11:00EDT, Supply Start Date: 02/15/22 Status: Ordered large electrodes 40x80 mm for TENS unit large electrodes 40x80 mm for TENS unit, See Instructions, # 3 each, Refills 11, Tot. Refills 11, Maintenance, to help with managing back pain dx: M54.5 M96.1 G83.4, 01/02/23 13:18:00 EDT, Supply Start Date: 01/02/23 Status: Ordered lidocaine 5% topical film 1 patch, Topically, Daily, PRN NEEDED FOR MODERATE PAIN, REMOVE AFTER 12 HOURS (12 HRS ON, 12 HRS OFF), # 10 patch, 0 Refills, Maintenance, 07/20/22 15:26:00 EDT, [facility] [id number], 10, APPLY 1 PATCH DAILY NEEDED FOR MODERATE PAIN..REMOVE AFTER 12... Start Date: 07/20/22 Status: Ordered nitroglycerin 0.4 mg sublingual tablet 1 tablet = 0.4 mg, Sublingual, Every 5 minutes, PRN Chest Pain, # 100 tablet, 0 Refills, Maintenance, 11/06/22 13:52:00 EST, Tablet, [facility]/pharmacy #[id number], Partial fill upon patient request if the prescription is for a schedule II opioid drug., 175, cm,... Start Date: 11/06/22 Status: Ordered omeprazole 20 mg oral enteric coated capsule 1 capsule = 20 mg, By Mouth, Daily, # 30 capsule, 1 Refills, Maintenance, 12/01/22 11:59:00 EST, ECCapsule, [facility]/pharmacy #[id number], Partial fill upon patient request if the prescription is for a schedule II opioid drug., 175, cm, 11/15/22 9:07:00 EST, He... Start Date: 12/01/22 Status: Ordered OxyCONTIN 15 mg oral tablet, extended release 1 tablet = 15 mg, By Mouth, Every 12 hours, dx: M54.[address] of oxycodone, # 60 tablet, 0 Refills, Maintenance, 12/01/22 12:02:00 EST, ER Tablet, [facility]/pharmacy #[id number], Partial fill upon patient request if the prescription is for a schedule II opioid... Start Date: 12/01/22 Status: Ordered PAP Supplies - Mask, Tubing, [...] tablet, Refills 5, Route to Pharmacy Electronically, [facility] [id number], 166, cm, 12/28/21 10:33:00 EDT, Height, 91.9, kg, 12/19/21 12:48:00 EST, Dry Weight Start Date: 01/06/22 Status: Ordered Raised Tension toilet seat Raised Tension toilet seat, See Instructions, # 1 each, Refills 0, Tot. Refills 0, Maintenance, to be used to help with hygeine dx: M54.5 M96.1 G83.4, 01/02/23 13:18:00 EDT, Supply Start Date: 01/02/23 Status: Ordered Raised Toilet Seat Raised Toilet Seat, See Instructions, # 1 each, Refills 0, Tot. Refills 0, Maintenance, for help with hygeine dx: M54.5 Wt: 88.2 kg ASMITA: 99, 12/12/22 12:30:00 EST, Supply Start Date: 12/12/22 Status: Ordered Ware Finisher Ware Finisher, See Instructions, # 1 each, Refills 0, Tot. Refills 0, Maintenance, dx: M54.5 M96.1 G83.4 ASMITA: 99, 01/02/23 13:18:00 EDT, Supply Start Date: 01/02/23 Status: Ordered risperiDONE 2 mg oral tablet [...] Supply Start Date: 11/24/20 Status: Ordered Shower / Tub Bench Shower / Tub Bench, See Instructions, # 1 each, Refills 0, Tot. Refills 0, Maintenance, for help with hygeine dx: M54.5 M96.1 G83.4 Wt: 88.2 kg ASMITA: 99, 01/02/23 13:18:00 EDT, Supply Start Date: 01/02/23 Status: Ordered Shower Bench Shower Bench, See Instructions, # 1 each, Refills 0, Tot. Refills 0, Maintenance, to be used to help with hygeine dx: M54.5, 01/29/20 17:13:00 EDT, Supply Start Date: 01/29/20 Status: Ordered Sock Aide Sock Aide, See Instructions, # 1 each, Refills 0, Tot. Refills 0, Maintenance, for help with hygeine dx: M54.5 M96.1 G83.4 ASMITA: 99, 12/21/22 13:56:00 EST, Supply Start Date: 12/21/22 Status: Ordered Ventolin HFA 108 mcg/inh inhalation aerosol with adapter 2 puffs, Inhalation, 4 times a day, PRN NEEDED FOR WHEEZING, # 18 each, 0 Refills, Maintenance, 12/12/22 12:14:00 EST, [facility] [id number], 175, cm, 11/15/22 9:07:00 EST, Height, 88.2, kg, 09/21/22 0:33:00 EST, Dry Weight Start Date: 12/12/22 Status: Ordered Walker See Instructions, # 1 units, Maintenance, Use as dircted, 07/05/19 14:32:18 EDT, Compound Start Date: 07/05/19 Status: Ordered Problem List Condition Confirmation Course Effective Dates Status H ealth Status Informant Chest pain Confirmed Active Chest pain Confirmed Active COVID-19 Confirmed Active Depression Confirmed Active Diabetes Confirmed Active Controlled substance agreement signed 12/28/2021 Confirmed Active GERD (gastroesophageal reflux disease) Confirmed Active Hyperlipidemia Confirmed Active Lower back pain Confirmed Active Abnormal MRI Confirmed Active Obese class I Confirmed Active Obstructive sleep apnea Confirmed Active Health usp, active care coordination Net[facility] [phone] Confirmed Active Fatty infiltration of liver Confirmed Active Tubular adenoma of colon Confirmed Active Social History Social History Type Response Smoking Status Former smoker; Other : Quit 2014; entered on: 09/10/17 Sex Patient Care team information Care Team Personnel Name: Macarena Lewis RN Position: S RN Member Role: Primary Care Nurse Name: Mallory Lugo RN Position: S RN Member Role: Primary Care Nurse Name: Carmen Gao RN Position: S RN Member Role: Primary Care Nurse Name: Dacia Evangelista RN Position: [facility] RN Member Role: Primary Care Nurse Name: Tracey Linares RN Position: [facility] PCO RN Member Role: Primary Care Nurse Name: Italia Ortega RN Position: [facility] RN Member Role: Primary Care Nurse Name: Catalina He RN Position: [facility] AMB Nurse Member Role: Primary Care Nurse Name: Cortez Golden RN Position: [facility] RN Member Role: Primary Care Nurse Name: Jessica Lantigua RN Position: [facility] SN RN Member Role: Primary Care Nurse Name: Clifford Gerber RN Position: [facility] RN Member Role: Primary Care Nurse Name: Peter Monahan RN Position: [facility] RN Member Role: Primary Care Nurse Name: Aziza Poole RN Position: [facility] RN Member Role: Primary Care Nurse Name: Monet Miller RN Position: [facility] RN Member Role: Primary Care Nurse Name: Katheryn Wu RN Position: [facility] RN Member Role: Primary Care Nurse Name: Doris Dee RN Position: [facility] RN Member Role: Primary Care Nurse Name: Janae Soto RN Position: [facility] RN Member Role: Primary Care Nurse Name: Hyun Ochoa RN Position: [facility] RN Member Role: Primary Care Nurse Name: Nancy Magana RN Position: [facility] RN Member Role: Primary Care Nurse Name: Ranjana Zavala RN Position: [facility] RN Member Role: Primary Care Nurse Name: Melvi Carter RN Position: [facility] OB RN Member Role: Primary Care Nurse Name: Jackson Rosen RN Position: [facility] RN Member Role: Primary Care Nurse Name: Clarissa Rodriguez RN Position: [facility] RN Supv Member Role: Primary Care Nurse Name: Ophelia Marie RN Position: [facility] RN Member Role: Primary Care Nurse Name: Nolvia Mendes RN Position: [facility] RN Member Role: Primary Care Nurse Name: Adi Rees RN Position: [facility] RN Member Role: Primary Care Nurse Name: Catalina Torres RN Position: [facility] RN Member Role: Primary Care Nurse Name: Doroteo Morrow RN Position: [facility] RN Member Role: Primary Care Nurse Address: Address: [address] [place] [address] Name: Cassidy Masters RN Position: [facility] RN Member Role: Primary Care Nurse Name: Juancarlos Valente RN Position: [facility] Librarian Member Role: Primary Care Nurse Name: Dawna Hernandez MD Position: [facility] Primary Care Physician Member Role: PCP Address: Address: [address] [place] [id number] [place] Care Team Related Persons Name: CIELO BARBOSATZA Address: [address] [place] [address] Name: GAGE HUNT Address: [address] [place] [address] Name: JOCELYN HUNT Address: home [address] [place] [address]
--- OUTSIDE RECORDS SUMMARY | 2024-05-24 04:30 | XMS_ITS | Continuity of Care Document ---
Author Organization [facility] Address [address] [place] [address]- Care Team Providers Care Capsule Maker Name Role Phone Alonzo Esposito MD Primary Care Physician Encounter [facility] Date(s): 07/16/23 - 08/15/[address] [address]- Allergies, Adverse Reactions, Alerts Substance Reaction Severity [...] influenza virus vaccine, inactivated 12/06/15 Give n [id number] 12y+ bivalent booster vax 11/03/22 Given SARS-CoV-2 mRNA (axwyhow-hudk-mmatu) vax 01/26/22 Given SARS-CoV-2 mRNA (fmjaddq-kmvs-hatix) vax 12/28/21 Given tetanus/diphtheria/pertussis, acel(Tdap) 03/29/19 Given tetanus/diphtheria/pertussis, acel(Tdap) 09/10/17 Given pneumococcal 23-valent vaccine 04/08/18 Recorded pneumococcal 23-valent vaccine 04/22/17 Recorded pneumococcal 23-valent vaccine 12/21/12 Given Medications acetaminophen-oxycodone 325 mg-10 mg oral tablet 1 tablet, By Mouth, Daily at bedtime, for 30 days, mass pat verified, # 30 tablet, 0 Refills, Acute09/13/23 13:56:00 EST, 08/14/23 13:56:00 EDT, [id number], Partial fill upon patient requestif the prescription is for a schedule II opioid aditya... Start Date: 08/14/23 Stop Date: 09/13/23 Status: Ordered diclofenac 1% topical gel 1 application, Topically, 4 times a day, # 100 Gm, 3 Refills, Maintenance, 04/30/23 14:32:00 EDT, Gel, [id number], Partial fill upon patient request if the prescription is for a schedule II opioid drug., 165, cm, 04/30/23 13:31:00 EDT, Height,... Start Date: 04/30/23 Status: Ordered FLUoxetine 20 mg oral capsule TAKE 3 CAPSULES BY MOUTH EVERY DAY IN THE MORNING Start Date: 06/04/23 Status: Ordered gabapentin 300 mg oral capsule 300 mg, 1, capsule, By Mouth, 2 times a day, # 60 capsule, Refills 0, Tot. Refills 0, Maintenance, 08/14/23 13:53:00 EDT, Route to Pharmacy Electronically, [id number], Partial fill upon patient request if the prescription is for a schedule II... Start Date: 08/14/23 Status: Ordered nitroglycerin 0.4 mg sublingual tablet 1 tablet = 0.4 mg, Sublingual, Every 5 minutes, PRN Chest Pain, # 100 tablet, 0 Refills, Maintenance, 06/08/23 16:23:00 EDT, Tablet, [id number], Partial fill upon patient request if the prescription is for a schedule II opioid drug., 165, cm,... Start Date: 06/08/23 Status: Ordered OxyCONTIN 15 mg oral tablet, extended release 1 tablet = 15 mg, By Mouth, Every 12 hours, dx: M54.5 MassPAT checked; appropriate, # 60 tablet, 0 Refills, Maintenance, 08/14/23 13:55:00 EDT, ER Tablet, [id number], Partial fill upon patient request if the prescription is for a schedule II... Start Date: 08/14/23 Stop Date: 09/13/23 Status: Ordered propranolol 20 mg oral tablet 2, tablet, By Mouth, 2 times a day, # 120 tablet, Refills 5, Maintenance, 04/19/23 20:48:00 EDT, [facility]ically[id number], 165, cm, 04/09/23 9:47:00 EDT, Height, 89.1, kg, 03/17/23 16:52:00 EDT, Dry Weight Start Date: 04/19/23 Status: Ordered risperiDONE 2 mg oral tablet 4 mg, 2, tablet, By Mouth, Daily at bedtime, Rx'd by psychiatry, Maintenance, 01/28/19 20:39:47 EDT Start Date: 01/28/19 Status: Ordered traZODone 100 mg oral tablet TAKE 1/2 TO 1 TABLET BY MOUTH AT BEDTIME Start Date: 06/04/23 Status: Ordered Ventolin HFA 108 mcg/inh inhalation [...] Active Obstructive sleep apnea Confirmed Active Health shelter, active care coordination PADMINI Nancy Banner [phone] Confirmed Active Fatty infiltration of liver Confirmed [...] Care Nurse Name: Carmen Gao RN Position: [facility] RN Member Role: Primary Care Nurse Name: Dacia Evangelista RN Position: [facility] RN Member Role: Primary Care Nurse Name: Tracey Linares RN Position: [facility] AMB Nurse Member Role: Primary Care Nurse Name: Italia Ortega RN Position: [facility] RN Member Role: Primary Care Nurse Name: Catalina He RN Position: [facility] AMB Nurse Member Role: Primary Care Nurse Name: Jessica Lantigua RN Position: [facility] SN RN Member Role: Primary Care Nurse Name: Catalina Pack RN Position: [facility] SN RN Member Role: Primary Care Nurse Name: Clifford Gerber RN Position: [facility] RN Member Role: Primary Care Nurse Name: Aziza Poole RN Position: [facility] RN Member Role: Primary Care Nurse Name: Monet Miller RN Position: [facility] RN Member Role: Primary Care Nurse Name: Katheryn Wu RN Position: [facility] RN Member Role: Primary Care Nurse Name: Doris Dee RN Position: [facility] RN Member Role: Primary Care Nurse Name: Janae Soto RN Position: [facility] RN Member Role: Primary Care Nurse Name: Hyun Ochoa RN Position: [facility] RN Member Role: Primary Care Nurse Name: Nancy Magana RN Position: [facility] RN Member Role: Primary Care Nurse Name: Ranjana Zavala RN Position: [facility] RN Member Role: Primary Care Nurse Name: Melvi Carter RN Position: [facility] OB RN Member Role: Primary Care Nurse Name: Jackson Rosen RN Position: [facility] RN Member Role: Primary Care Nurse Name: Clarissa Rodriguez RN Position: [facility] RN Supv Member Role: Primary Care Nurse Name: Ophelia Marie RN Position: [facility] RN Member Role: Primary Care Nurse Name: Nolvia Mendes RN Position: [facility] RN Member Role: Primary Care Nurse Name: Adi Rees RN Position: [facility] RN Member Role: Primary Care Nurse Name: Alonzo Esposito MD Position: [facility] Physician - Primary Care Member Role: PCP Address: Address: [address] [place] [id number] Name: Doroteo Morrow RN Position: [facility] RN Member Role: Primary Care Nurse Address: Address: [address] [place] [id number]- Name: Cassidy Masters RN Position: [facility] RN Member Role: Primary Care Nurse Name: Juancarlos Valente RN Position: [facility] Hospital Crm Dynamics Developer Member Role: Primary Care Nurse Care Team Related Persons Name: SYLVIA BARBOSA Address: home [address] [place] [address] Name: GAGE HUNT Address: [address] [place] [address] Name: JOCELYN HUNT Address: home [address] [place] [address]
--- OUTSIDE RECORDS SUMMARY | 2024-05-24 04:30 | XMS_ITS | Continuity of Care Document ---
Author Organization [facility] Address [address] [place] [address]- Care Team Providers Care Customer Service Attendant Name Role Phone Alonzo Esposito MD Primary Care Physician [phone] [facility]counter [facility] Date(s): 04/03/24 - 05/03/[address] [address] Allergies, Adverse Reactions, Alerts Substance [...] influenza virus vaccine, inactivated 12/06/15 Give n [id number] 12y+ bivalent booster vax 11/03/22 Given SARS-CoV-2 mRNA (tdjcsqm-uvfg-pibmn) vax 01/26/22 Given SARS-CoV-2 mRNA (zumrtcb-tqxm-rwlmp) vax 12/28/21 Given pneumococcal 23-valent vaccine 04/08/18 Recorded pneumococcal 23-valent vaccine 04/22/17 Recorded pneumococcal 23-valent vaccine 12/21/12 Given [facility]Result Comment[facility] acetaminophen 325 mg oral tablet 650 mg, 2, tablet, By Mouth, Every 6 hours, PRN, # 120 tablet, Refills 0, Tot. Refills 0, Maintenance, for pain, 02/27/24 18:13:00 EDT, Route to Pharmacy Electronically, [facility]/pharmacy #[id number], Partial fill upon patient request if the prescription is for... Start Date: 02/27/24 Status: Ordered amoxicillin 500 mg oral capsule 4 capsule = 2,000 mg, By Mouth, Once, given 1 hour prior to the dental procedure, # 4 capsule, 0 Refills, Soft Stop, 03/18/24 8:57:00 EDT, Capsule, [facility]/pharmacy #[id number], Partial fill upon patient request if the prescription is for a schedule II opioid d... Start Date: 03/18/24 Status: Ordered aspirin 81 mg oral delayed release tablet 81 mg, By Mouth, Daily, # 30 tablet, Refills 11, Tot. Refills 11, Maintenance, 09/12/23 17:42:00 EST, Route to Pharmacy Electronically, [place], [place] - [id number], For blister pack please., 166, cm, 09/12/23 13:54:00 EST, Height, 9... Start Date: 09/12/23 Status: Ordered atorvastatin 40 mg oral tablet 1 tablet = 40 mg, By Mouth, Daily, # 30 tablet, 11 Refills, Maintenance, 09/12/23 17:42:00 EST, Tablet, [place], [place] - [id number], For blister pack please., 166, cm, 09/12/23 13:54:00 EST, Height, 93, kg, 09/06/23 16:15:00 EST, Start Date: 09/12/23 Stop Date: 09/06/24 Status: Ordered diclofenac 1% topical gel 1 application, Topically, 4 times a day, PRN Pain , Mild, not to exceed 16 grams/day/single joint of lower extremities, # 100 Gm, 3 Refills, Maintenance, 11/30/23 9:43:00 EST, Gel, [facility]/pharmacy #[id number], Partial fill upon patient request if the prescript... Start Date: 11/30/23 Status: Ordered FLUoxetine 20 mg oral capsule 60 mg, 3, capsule, By Mouth, Daily, TAKE 3 CAPSULES BY MOUTH EVERY DAY IN THE MORNING, # 90 capsule, Refills 11, Tot. Refills 11, Maintenance, 09/12/23 17:44:00 EST, Route to Pharmacy Electronically,[place], [place] - [id number], for... Start Date: 09/12/23 Status: Ordered gabapentin 800 mg oral tablet 1 tablet = 800 mg, By Mouth, 3 times a day, # 90 tablet, 3 Refills, Maintenance, 02/29/24 9:58:00 EDT, Tablet, [facility]/pharmacy #[id number], Partial fill upon patient request if the prescription is for a schedule II opioid drug., 165, cm, 02/29/24 9:45:00 EDT,... Start Date: 02/29/24 Status: Ordered nitroglycerin 0.4 mg sublingual tablet 1 tablet = 0.4 mg, Sublingual, Every 5 minutes, PRN Chest Pain, # 100 tablet, 0 Refills, Maintenance, 06/08/23 16:23:00 EDT, Tablet, [facility]/pharmacy #[id number], Partial fill upon patient request if the prescription is for a schedule II opioid drug., 165, cm,... Start Date: 06/08/23 Status: Ordered oxyCODONE 15 mg oral tablet 1 tablet = 15 mg, By Mouth, Every 6 hours, PRN Pain , Severe, controlled substance agreement., # 120 tablet, 0 Refills, Maintenance, 04/03/24 11:48:00 EDT, Tablet, [facility]/pharmacy #[id number], Partial fill upon [...] 09/12/23 17:44:00 EST, Route to Pharmacy Electronically, [place], [place] - [id number], for blister pack, 166, cm... Start Date: 09/12/23 Status: Ordered tiZANidine 2 mg oral tablet 4 mg, 2, tablet, By Mouth, Every 8 hours, # 180 tablet, Refills 3, Tot. Refills 3, Maintenance, 02/29/24 9:59:00 EDT, [facility] Gm, 11 Refills, Maintenance, 02/22/23 8:17:00 EDT, [facility]/pharmacy #[id number], 166, cm, 01/18/23 15:56:00 EDT, [...] Active Right knee pain Confirmed Active Health nursing home, active care coordination Netta Mata [phone] Confirmed Active Cervical stenosis of spine Confirmed [...] Care Nurse Name: Macarena Lewis RN Position: [facility] RN Member Role: Primary Care Nurse Name: Mallory Lugo RN Position: [facility] RN Member Role: Primary Care Nurse Name: Carmen Gao RN Position: [facility] ED RN W/OE and Tasks Member Role: Primary Care Nurse Name: Dacia Evangelista RN Position: [facility] RN Member Role: Primary Care Nurse Name: Tracey Linares RN Position: [facility] AMB Nurse Member Role: Primary Care Nurse Name: Italia Ortega RN Position: [facility] RN Member Role: Primary Care Nurse Name: Catalina He RN Position: [facility] AMB Nurse Member Role: Primary Care Nurse Name: Cortez Golden RN Position: [facility] RN Member Role: Primary Care Nurse Name: Jessica Lantigua RN Position: [facility] SN RN Member Role: Primary Care Nurse Name: Catalina Pack RN Position: [facility] SN RN Member Role: Primary Care Nurse Name: Clifford Gerber RN Position: [facility] RN Member Role: Primary Care Nurse Name: Doris Butler RN Position: [facility] RN Member Role: Primary Care Nurse Name: Aziza Poole RN Position: [facility] RN Member Role: Primary Care Nurse Name: Katheryn Wu RN Position: [facility] SN RN Member Role: Primary Care Nurse Name: Doris Dee RN Position: [facility] RN Member Role: Primary Care Nurse Name: Janae Soto RN Position: [facility] RN Member Role: Primary Care Nurse Name: Daphney Echols LPN Position: [facility] RN Member Role: Primary Care Nurse Name: iNni Odonnell RN Position: [facility] RN Member Role: Primary Care Nurse Name: Jennifer Thakkar RN Position: [facility] RN Member Role: Primary Care Nurse Name: Hyun Ochoa RN Position: [facility] RN Member Role: Primary Care Nurse Name: Ruth Lay RN Position: [facility] RN Member Role: Primary Care Nurse Name: Ranjana Zavala RN Position: [facility] RN Member Role: Primary Care Nurse Name: Melvi Carter RN Position: [facility] OB RN Member Role: Primary Care Nurse Name: Jackson Rosen RN Position: [facility] RN Member Role: Primary Care Nurse Name: Clarissa Rodriguez RN Position: [facility] RN Supv Member Role: Primary Care Nurse Name: Ophelia Marie RN Position: [facility] SN RN Member Role: Primary Care Nurse Name: Nolvia Mendes RN Position: [facility] RN Member Role: Primary Care Nurse Name: Tyrone Germain RN Position: [facility] RN Member Role: Primary Care Nurse Name: Adi Rees RN Position: [facility] RN Member Role: Primary Care Nurse Name: Alonzo Esposito MD Position: [facility] Physician - Primary Care Member Role: PCP Address: Address: [address] [place] [address]- Name: Cassidy Masters RN Position: [facility] RN Member Role: Primary Care Nurse Name: Juancarlos Valente RN Position: [facility] Parachute Panel Joiner Member Role: Primary Care Nurse Name: Tran Wiseman RN Position: [facility] RN Member Role: Primary Care Nurse Care Team Related Persons Name: SYLVIA BARBOSA Address: home [address] [place] [id number] Name: GAGE HUNT Address: [address] [place] [address] Name: JOCELYN HUNT Address: home [address] [place] [address]
--- OUTSIDE RECORDS SUMMARY | 2024-05-24 04:30 | XMS_ITS | Continuity of Care Document ---
Author Organization [facility] Address [address] [place] [address]- Care Team Providers Care Chemical Plant Worker Name Role Phone Dawna Hernandez MD Primary Care Physician Encounter [facility] [id number] Date(s): 01/04/23 - 02/03/[address] [address]- Attending Physician: AdmLori sandhu Admitting Physician: Admtr, Ar8 Referring Physician: Admtr, Ar8 Allergies, Adverse Reactions, Alerts Substance Reaction Severity Status lisinopril Angioedema Active Shrimp Active Immunizations Given and Recorded Vaccine Date Status Refusal Reason [id number] 12y+ bivalent booster vax 11/03/22 Given influenza virus vaccine, inactivated 11/03/22 Give n influenza virus vaccine, inactivated 02/15/22 Give n influenza virus vaccine, inactivated 09/01/20 Give n influenza virus vaccine, inactivated 09/15/19 Give n influenza virus vaccine, inactivated 11/19/18 Give n influenza virus vaccine, inactivated 09/10/17 Give n influenza virus vaccine, inactivated 12/06/15 Give n SARS-CoV-2 mRNA (ozomljd-rznb-yeczg) vax 01/26/22 Given SARS-CoV-2 mRNA (imbhkwr-vjyw-okfle) vax 12/28/21 Given tetanus/diphtheria/pertussis, acel(Tdap) 03/29/19 Given [...] 3 Refills, Maintenance, 05/11/22 14:22:00 EDT, Tablet, [facility]/pharmacy #[id number], Partial [...] tablet, 1 Refills, Maintenance, 04/05/22 7:53:00 EDT, [facility]/pharmacy #[id number], 165, cm, 02/15/22 10:35:00 EDT, Height, 90.7, kg, 02/06/22 19:49:00 EDT, Dry Weight Start Date: 04/05/22 Status: Ordered Colace sodium 100 mg oral capsule 100 mg, 1, capsule, By Mouth, 2 times a day, PRN, # 20 capsule, Refills 0, Tot. Refills 0, Maintenance, for constipation, 09/22/22 9:53:00 EST, Route to Pharmacy Electronically, [facility]/pharmacy #[id number], Partial fill upon [...] EST, Supply Start Date: 12/12/22 Status: Ordered Endocet 5/325 oral tablet 1 tablet, By Mouth, Daily at bedtime, PRN as needed for pain, MassPAT checked dx: M54.5 on agreement, # 30 tablet, 0 Refills, Maintenance, 01/26/23 13:08:00 EDT, Tablet, [id number], Partial fill upon patient request if the prescrip... Start Date: 01/26/23 Status: Ordered FLUoxetine 20 mg oral capsule [...] 12/28/20 Stop Date: 01/27/21 Status: Ordered gabapentin 300 mg oral capsule 300 mg, 1, capsule, By Mouth, 3 times a day, # 21 capsule, Refills 0, Tot. Refills 0, Soft Stop, 01/31/23 21:34:00 EDT, [facility], [id number], Partial fill upon patientrequest if the prescription is for a schedule II op... Start Date: 01/31/23 Stop Date: 02/07/23 Status: Ordered gabapentin 800 mg oral tablet 1 tablet = 800 mg, By Mouth, 3 times a day, # 90 tablet, 11 Refills, Maintenance, 06/15/22 17:40:00EDT, Tablet, [id number], Partial fill upon patient request if the prescription is for a schedule II opioid drug., 165, cm, 06/15/22 14:29:00 ED... Start Date: 06/15/22 Status: Ordered ibuprofen 600 mg oral tablet 600 mg, 1, tablet, By Mouth, 3 times a day, # 90 tablet, Refills 0, Tot. Refills 0, Maintenance, 09/06/22 21:10:00 EST, Route to [facility], [id number], Partial fill upon patientrequest if the [...] patch, 0 Refills, Maintenance, 07/20/22 15:26:00 EDT, [id number], 10, APPLY 1 PATCH DAILY NEEDED FOR MODERATE PAIN..REMOVE AFTER 12... Start Date: 07/20/22 Status: Ordered nitroglycerin 0.4 mg sublingual tablet 1 tablet = 0.4 mg, Sublingual, Every 5 minutes, PRN Chest Pain, # 100 tablet, 0 Refills, Maintenance, 11/06/22 13:52:00 EST, Tablet, [facility]/pharmacy #[id number], Partial fill upon patient request if the prescription is for a schedule II opioid drug., 175, cm,... Start Date: 11/06/22 Status: Ordered omeprazole 20 mg oral enteric coated capsule 1 capsule = 20 mg, By Mouth, Daily, # 30 capsule, 1 Refills, Maintenance, 01/04/23 12:40:00 EDT, ECCapsule, [facility]/pharmacy #[id number], Partial fill upon patient request if the prescription is for a schedule II opioid drug., 165, cm, 01/04/23 9:35:00 EDT, He... Start Date: 01/04/23 Status: Ordered OxyCONTIN 15 mg oral tablet, extended release 1 tablet = 15 mg, By Mouth, Every 12 hours, MassPAT checked dx: M54.5 on agreement, # 60 tablet, 0 Refills, Maintenance, 01/22/23 15:38:00 EDT, ER Tablet, [facility]/pharmacy #[id number], Partial fill upon patient request if the prescription is for a schedule I... Start Date: 01/22/23 Status: Ordered PAP Supplies - Mask, Tubing, [...] tablet, Refills 5, Route to Pharmacy Electronically, [id number], 166, cm, 12/28/21 10:33:00 EDT, Height, 91.9, [...] EST, Supply Start Date: 12/12/22 Status: Ordered Rig Operator Rig Operator, See Instructions, # 1 each, Refills 0, [...] each, 0 Refills, Maintenance, 12/12/22 12:14:00 EST, [id number], 175, cm, 11/15/22 9:07:00 EST, Height, 88.2, [...] Diabetes Confirmed Active Controlled substance agreement signed 01/05/2023 Confirmed Active GERD (gastroesophageal reflux disease) Confirmed Active Hyperlipidemia Confirmed Active HTN (hypertension) Confirmed Active Lower back pain Confirmed Active Obese class I Confirmed Active Obstructive sleep apnea Confirmed Active Health long term, active care coordination [facility] Nancy Mata [phone] Confirmed Active Fatty infiltration of liver Confirmed Active Tubular adenoma of colon Confirmed Active 1history of this with surgical correction Social History Social History Type Response Smoking Status Former smoker; Other : Quit 2014; entered on: 09/10/17 Sex Exercise stress test study * Event Display: Exercise Stress Test Report Authored Date: Cardiology Consult note * Event Display: Consult Note Cardiology Authored Date: Note * Elvia Metcalf RN: PERFORM, SIGN, VERIFY Event Display: Case Management Discharge Plan Authored Date: Patient: JAMARCUS BARBOSA Age: 49 years Sex: Male : 1970 Associated Diagnoses: None Author: Elvia Metcalf RN Unable to reach pt for follow up call. Call placed to Pt. [phone] the telephone # you have dialed is temporarily not in service . Centricity indicates Pt. has pending PCP appt. 10/16/19 9:00am/Dr. Hernandez. * Event Display: [place] Nuclear Medicine Authored Date: Patient Care team information Care Team Personnel Name: Macarena Lewis RN Position: [facility] RN Member Role: Primary Care Nurse Name: Mallory Lugo RN Position: [facility] RN Member Role: Primary Care Nurse Name: Carmen Gao RN Position: [facility] RN Member Role: Primary Care Nurse Name: Dacia Evangelista RN Position: [facility] RN Member Role: Primary Care Nurse Name: Tracey Linares RN Position: [facility] PCO RN Member Role: Primary Care Nurse Name: Italia Ortega RN Position: [facility] RN Member Role: Primary Care Nurse Name: Catalina He RN Position: [facility] AMB Nurse Member Role: Primary Care Nurse Name: Cortez Golden RN Position: [facility] RN Member Role: Primary Care Nurse Name: Jessica Lantigua RN Position: [facility] RN Member Role: Primary Care Nurse Name: Catalina Pack RN Position: [facility] SN RN Member Role: Primary Care Nurse Name: Clifford Gerber RN Position: [facility] RN Member Role: Primary Care Nurse Name: Peter Monahan RN Position: [facility] RN Member Role: Primary Care Nurse Name: Aziza Poole RN Position: [facility] RN Member Role: Primary Care Nurse Name: Monet Miller RN Position: [facility] RN Member Role: Primary Care Nurse Name: Katheryn Wu RN Position: [facility] RN Member Role: Primary Care Nurse Name: Doris Dee RN Position: [facility] RN Member Role: Primary Care Nurse Name: Janae Soto RN Position: [facility] RN Member Role: Primary Care Nurse Name: Hyun Ochoa RN Position: [facility] RN Member Role: Primary Care Nurse Name: Nancy Magana RN Position: [facility] RN Member Role: Primary Care Nurse Name: Ranjana Zavala RN Position: [facility] RN Member Role: Primary Care Nurse Name: Melvi Carter RN Position: [facility] OB RN Member Role: Primary Care Nurse Name: Jackson Rosen RN Position: [facility] RN Member Role: Primary Care Nurse Name: Clarissa Rodriguez RN Position: [facility] RN Vikram Member Role: Primary Care Nurse Name: Ophelia Marie RN Position: [facility] RN Member Role: Primary Care Nurse Name: Nolvia Mendes RN Position: [facility] RN Member Role: Primary Care Nurse Name: Adi Rees RN Position: [facility] RN Member Role: Primary Care Nurse Name: Doroteo Morrow RN Position: [facility] RN Member Role: Primary Care Nurse Address: Address: [address] [place] [id number]- [place] Name: Cassidy Masters RN Position: [facility] RN Member Role: Primary Care Nurse Name: Juancarlos Valente RN Position: [facility] Hospital Research Programmer Member Role: Primary Care Nurse Name: Dawna Hernandez MD Position: [facility] Primary Care Physician Member Role: PCP Address: Address: [address] [place] [address]- Care Team Related Persons Name: SYLVIA BARBOSA Address: [address] [address] Name: GAGE HUNT Address: home [address] [place] [address] Name: JOCELYN HUNT Address: [place] [address] [place] [address]
--- OUTSIDE RECORDS SUMMARY | 2024-05-24 04:30 | XMS_ITS | Continuity of Care Document ---
Author Organization [facility] ter Address [address] [place] [address]- Care Team Providers Care Forensic Technician Name Role Phone Alonzo Esposito MD Primary Care Physician Encounter [facility] Date(s): 07/03/23 - 08/12/[address] [id number] Attending Physician: Dawna Hernandez MD Admitting [...] influenza virus vaccine, inactivated 12/06/15 Give n [id number] 12y+ bivalent booster vax 11/03/22 Given SARS-CoV-2 mRNA ([id number]) vax 01/26/22 Given SARS-CoV-2 mRNA ([id number]) vax 12/28/21 Given tetanus/diphtheria/pertussis, acel(Tdap) 03/29/19 Given tetanus/diphtheria/pertussis, acel(Tdap) 09/10/17 Given pneumococcal 23-valent vaccine 04/08/18 Recorded pneumococcal 23-valent vaccine 04/22/17 Recorded pneumococcal 23-valent vaccine 12/21/12 Given Medications acetaminophen-oxycodone 325 mg-10 mg oral tablet 1 tablet, By Mouth, Daily at bedtime, for 30 days, mass pat verified, # 30 tablet, 0 Refills, Acute08/17/23 9:32:00 EDT, 07/18/23 9:32:00 EDT, [facility]/pharmacy #[id number], Partial fill upon patient request if the prescription is for a schedule II opioid drug.... Start Date: 07/18/23 Stop Date: 08/17/23 Status: Ordered diclofenac 1% topical gel 1 application, Topically, 4 times a day, # 100 Gm, 3 Refills, Maintenance, 04/30/23 14:32:00 EDT, Gel, [facility]/pharmacy #[id number], Partial fill upon patient request if the prescription is for a schedule II opioid drug., 165, cm, 04/30/23 13:31:00 EDT, Height,... Start Date: 04/30/23 Status: Ordered FLUoxetine 20 mg oral capsule TAKE 3 CAPSULES BY MOUTH EVERY DAY IN THE MORNING Start Date: 06/04/23 Status: Ordered nitroglycerin 0.4 mg sublingual tablet 1 tablet = 0.4 mg, Sublingual, Every 5 minutes, PRN Chest Pain, # 100 tablet, 0 Refills, Maintenance, 06/08/23 16:23:00 EDT, Tablet, [facility]/pharmacy #[id number], Partial fill upon patient request if the prescription is for a schedule II opioid drug., 165, cm,... Start Date: 06/08/23 Status: Ordered OxyCONTIN 15 mg oral tablet, extended release 1 tablet = 15 mg, By Mouth, Every 12 hours, dx: M54.5 MassPAT checked; appropriate, # 60 tablet, 0 Refills, Maintenance, 07/18/23 9:32:00 EDT, ER Tablet, [facility]/pharmacy #[id number], Partial fill upon patientrequest if the prescription is for a schedule II o... Start Date: 07/18/23 Stop Date: 08/17/23 Status: Ordered propranolol 20 mg oral tablet 2, tablet, By Mouth, 2 times a day, # 120 tablet, Refills 5, Maintenance, 04/19/23 20:48:00 EDT, Route to Pharmacy Electronically, [id number], 165, cm, 04/09/23 9:47:00 EDT, Height, 89.1, [...] Active Obstructive sleep apnea Confirmed Active [facility], active care coordination Netta Nancy [facility] [phone] Confirmed Active Fatty infiltration of liver Confirmed Active Tubular adenoma of colon Confirmed Active 1history of this with surgical correction Social History Social History Type Response Smoking Status Former smoker; Other : Quit 2014; entered on: 09/10/17 Sex Patient Care team information Care Team Personnel Name: Macarena Lewis RN Position: [facility] RN Member Role: Primary Care Nurse Name: Mallory Lugo RN Position: [facility] RN Member Role: Primary Care Nurse Name: Carmen Gao RN Position: [facility] RN Member Role: Primary Care Nurse Name: Dacia Evangelista RN Position: [facility] RN Member Role: Primary Care Nurse Name: Tracey Linares RN Position: [facility] AMB Nurse Member Role: Primary Care Nurse Name: Italia Ortega RN Position: [facility] RN Member Role: Primary Care Nurse Name: Catalina He RN Position: [facility] AMB Nurse Member Role: Primary Care Nurse Name: Jessica Lantigua RN Position: [facility] SN RN Member Role: Primary Care Nurse Name: Catalina Pack RN Position: [facility] SN RN Member Role: Primary Care Nurse Name: Clifford Gerber RN Position: [facility] RN Member Role: Primary Care Nurse Name: Peter Monahan RN Position: [facility] RN Member Role: Primary Care Nurse Name: zAiza Poole RN Position: [facility] RN Member Role: Primary Care Nurse Name: Monet Miller RN Position: [facility] RN Member Role: Primary Care Nurse Name: Katheryn Wu RN Position: [facility] RN Member Role: Primary Care Nurse Name: Doris Dee RN Position: [facility] RN Member Role: Primary Care Nurse Name: Janae Soto RN Position: [facility] RN Member Role: Primary Care Nurse Name: Hyun Ochoa RN Position: [facility] RN Member Role: Primary Care Nurse Name: Nancy Magana RN Position: [facility] RN Member Role: Primary Care Nurse Name: Ranjana Zavala RN Position: [facility] RN Member Role: Primary Care Nurse Name: Melvi Carter RN Position: [facility] OB RN Member Role: Primary Care Nurse Name: Jackson Rosen RN Position: [facility] RN Member Role: Primary Care Nurse Name: Clarissa Rodriguez RN Position: [facility] RN Supv Member Role: Primary Care Nurse Name: Ophelia Marie RN Position: [facility] RN Member Role: Primary Care Nurse Name: Nolvia Mendes RN Position: [facility] RN Member Role: Primary Care Nurse Name: Adi Rees RN Position: [facility] RN Member Role: Primary Care Nurse Name: Alonzo Esposito MD Position: [facility] Physician - Primary Care Member Role: PCP Address: Address: [address] [place] [id number]- [place] Name: Doroteo Morrow RN Position: [facility] RN Member Role: Primary Care Nurse Address: Address: [address] [place] [id number]- Name: Cassidy Masters RN Position: [facility] RN Member Role: Primary Care Nurse Name: Juancarlos Valente RN Position: [facility] [employer] Beam Member Role: Primary Care Nurse Care Team Related Persons Name: CHELSEY SYLVIA Address: home [address] [place] [id number] Name: GAGE HUNT Address: home [address] [place] [id number] Name: JOCELYN HUNT Address: home [address] [place] [address]
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
--- OUTSIDE RECORDS SUMMARY | 2024-05-24 04:31 | XMS_ITS | Continuity of Care Document ---
Author Organization [facility] Address [address] [place] [address]- Care Team Providers Care Contracting Manager Name Role Phone Alonzo Esposito DO Primary Care Physician Encounter [facility] Date(s): 04/08/23 - 05/18/[address] [address] Attending Physician: Dawna Hernandez MD Admitting Physician: Dawna Hernandez MD Referring Physician: Dawna Hernandez MD Allergies, Adverse Reactions, Alerts Substance Reaction Severity Status lisinopril Angioedema Active Shrimp Active Immunizations Given and Recorded Vaccine Date Status Refusal Reason [id number] 12y+ bivalent booster vax 11/03/22 Given influenza virus vaccine, inactivated 11/03/22 Give n influenza virus vaccine, inactivated 02/15/22 Give n influenza virus vaccine, inactivated 09/01/20 Give n influenza virus vaccine, inactivated 09/15/19 Give n influenza virus vaccine, inactivated 11/19/18 Give n influenza virus vaccine, inactivated 09/10/17 Give n influenza virus vaccine, inactivated 12/06/15 Give n SARS-CoV-2 mRNA ([id number]) vax 01/26/22 Given SARS-CoV-2 mRNA (syplolw-bfhc-onsxa) vax 12/28/21 Given tetanus/diphtheria/pertussis, acel(Tdap) 03/29/19 Given tetanus/diphtheria/pertussis, acel(Tdap) 09/10/17 Given pneumococcal 23-valent vaccine 04/08/18 Recorded pneumococcal 23-valent vaccine 04/22/17 Recorded pneumococcal 23-valent vaccine 12/21/12 Given Medications acetaminophen-oxycodone 325 mg-10 mg oral tablet 1 tablet, By Mouth, Daily at bedtime, for 30 days, Fill on/after 05/17/2023 mass pat verified, # 30 tablet, 0 Refills, Acute 06/14/23 14:15:00 EDT, 05/15/23 14:15:00 EDT, [facility]/pharmacy #[id number], Partial fill upon patient request if the prescription is for... Start Date: 05/15/23 Stop Date: 06/14/23 Status: Ordered Alcohol Wipes See Instructions, # 1 box, Maintenance, please use before testing three times a day: dx type 2 diabetes, 04/04/18 18:52:53 EDT, Compound Start Date: 04/04/18 Status: Ordered aspirin 81 mg oral tablet, chewable 81 mg, 1, tablet, By Mouth, Daily, # 30 tablet, Refills 0, Tot. Refills 0, Maintenance, 03/15/23 0:06:00 EDT, Route to Pharmacy Electronically, [facility]/pharmacy #[id number], Partial fill upon patient request if the prescription is for a schedule II opioid drug.... Start Date: 03/15/23 Status: Ordered atorvastatin 40 mg oral tablet 1 tablet, By Mouth, Daily, # 90 tablet, 1 Refills, Maintenance, 03/01/23 12:46:00 EDT, [id number], 166, cm, 01/18/23 15:56:00 EDT, Height, 91, kg, 01/18/23 15:56:00 EDT, Dry Weight Start Date: 03/01/23 Status: Ordered Back Brace See Instructions, # [...] ALLERGIES, # 90 tablet, 1 Refills, Maintenance, 02/22/23 8:17:00 EDT, [id number], 166, cm, 01/18/23 15:56:00 EDT, Height, 91, kg, 01/18/23 15:56:00 EDT, Dry Weight Start Date: 02/22/23 Status: Ordered chlorhexidine topical 0.12% liquid See Instructions, swish and spit; do not swallow. use 3-4 x/ day, # 473 mL, 0 Refills, Maintenance,04/30/23 14:38:00 EDT, [id number], Partial fill upon patient request if the prescription isfor a schedule II opioid drug., swish and spit; d... Start Date: 04/30/23 Status: Ordered CPAP Machine See Instructions, # 1 units, Refills 0, Tot. Refills 0, Maintenance, CPAP of 8 cm of H2O with a heated humidifier. Recommend ordering a machine with compliance data tracking capabilities and following residual AHI. 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 Start Date: 09/10/17 Status: Ordered diclofenac 1% topical gel 1 application, Topically, 4 times a day, # 100 Gm, 3 Refills, Maintenance, 04/30/23 14:32:00 EDT, Gel, [id number], Partial fill upon patient request if the prescription is for a schedule II opioid drug., 165, cm, 04/30/23 13:31:00 EDT, Height,... Start Date: 04/30/23 Status: Ordered Dual Channel Transcutaneous Electrical Nerve Stimulator Dual Channel Transcutaneous Electrical Nerve Stimulator, See Instructions, # 1 each, Refills 0, Tot. Refills 0, Maintenance, to help with managing back pain dx: M54.5, 12/12/22 12:22:00 EST, Supply Start Date: 12/12/22 Status: Ordered Freestyle Lite Lancets See Instructions, [...] tablet, 11 Refills, Maintenance, 06/15/22 17:40:00EDT, Tablet, [facility]/pharmacy #[id number], Partial fill upon patient request if the prescription is for a schedule II opioid drug., 165, cm, 06/15/22 14:29:00 ED... Start Date: 06/15/22 Status: Ordered ibuprofen 600 mg oral tablet 600 mg, 1, tablet, By Mouth, 3 times a day, # 90 tablet, Refills 0, Tot. Refills 0, Maintenance, 09/06/22 21:10:00 EST, Route to Pharmacy Electronically, [facility]/pharmacy #[id number], Partial fill upon patientrequest [...] patch, Topically, Daily, PRN Pain , Mild, remove after 12 hours, # 13 each, 3 Refills, Maintenance, 04/30/23 14:32:00 EDT, Film, [facility]/pharmacy #[id number], Partial fill upon patient request if the prescription is for a schedule II opioid drug., 1 patch Top... Start Date: 04/30/23 Status: Ordered lidocaine 5% topical film 1 patch, Topically, Daily, PRN NEEDED FOR MODERATE PAIN, REMOVE AFTER 12 HOURS (12 HRS ON, 12 HRS OFF), # 10 patch, 0 Refills, Maintenance, 07/20/22 15:26:00 EDT, [id number], 10, APPLY 1 PATCH DAILY NEEDED FOR MODERATE PAIN..REMOVE AFTER 12... Start Date: 07/20/22 Status: Ordered Motrin IB 200 mg oral tablet 2 tablet = 400 mg, By Mouth, Every 6 hours, PRN for pain, # 120 tablet, 0 Refills, Maintenance, 03/17/23 20:06:00 EDT, Tablet, [facility]/pharmacy #[id number], Partial fill upon patient request if the prescription is for a schedule II opioid drug., 165, cm, ... Start Date: 03/17/23 Status: Ordered nitroglycerin 0.4 mg sublingual tablet 1 tablet = 0.4 mg, Sublingual, Every 5 minutes, PRN Chest Pain, # 100 tablet, 0 Refills, Maintenance, 11/06/22 13:52:00 EST, Tablet, [facility]/pharmacy #[id number], Partial fill upon patient request if the prescription is for a schedule II opioid drug., 175, cm,... Start Date: 11/06/22 Status: Ordered omeprazole 20 mg oral enteric coated capsule 1 capsule, By Mouth, Daily, # 30 capsule, 5 Refills, Maintenance, 03/03/23 15:23:00 EDT, [id number], 166, cm, 01/18/23 15:56:00 EDT, Height, 91, kg, 01/18/23 15:56:00 EDT, Dry Weight Start Date: 03/03/23 Status: Ordered OxyCONTIN 15 mg oral tablet, extended release 1 tablet = 15 mg, By Mouth, Every 12 hours, dx: M54.5 MassPAT checked; appropriate, # 60 tablet, 0 Refills, Maintenance, 05/15/23 14:16:00 EDT, ER Tablet, [facility]/pharmacy #[id number], Partial fill upon patient request if the prescription is for a schedule II... Start Date: 05/15/23 Status: Ordered PAP Supplies - Mask, Tubing, [...] 04/19/23 20:48:00 EDT, Route to Pharmacy Electronically, [id number], 165, cm, 04/09/23 9:47:00 EDT, Height, 89.1, kg, 03/17/23 16:52:00 EDT, Dry Weight Start Date: 04/19/23 Status: Ordered Raised Tension toilet seat Raised [...] EST, Supply Start Date: 12/12/22 Status: Ordered Monitoring Analyst Monitoring Analyst, See Instructions, # 1 each, Refills 0, [...] EST, Supply Start Date: 12/21/22 Status: Ordered Tylenol 325 mg oral tablet 650 mg, 2, tablet, By Mouth, Every 6 hours, PRN, # 120 tablet, Refills 0, Tot. Refills 0, Maintenance, for pain, 03/17/23 20:06:00 EDT, Route to Pharmacy Electronically, [facility]/pharmacy #[id number], Partial fill upon patient request if the prescription is for... Start Date: 03/17/23 Status: Ordered Ventolin HFA 108 mcg/inh inhalation aerosol with adapter 2 puffs, Inhalation, 4 times a day, PRN NEEDED FOR WHEEZING, # 18 Gm, 11 Refills, Maintenance, 02/22/23 8:17:00 EDT, [facility]/pharmacy #[id number], 166, cm, 01/18/23 15:56:00 EDT, Height, 91, kg, 01/18/23 15:56:00 EDT, Dry Weight Start Date: 02/22/23 Status: Ordered Walker See Instructions, # 1 [...] Active Obstructive sleep apnea Confirmed Active Health custodial, active care coordination PADMINI Mata [phone] Confirmed Active Fatty infiltration of liver Confirmed Active Tubular adenoma of colon Confirmed Active 1history of this with surgical correction Social History Social History Type Response Smoking Status Former smoker; Other : Quit 2014; entered on: 09/10/17 Sex Patient Care team information Care Team Personnel Name: Macarena Lewis RN Position: [facility] RN Member Role: Primary Care Nurse Name: Mallory Lugo RN Position: [facility] RN Member Role: Primary Care Nurse Name: Carmen Gao RN Position: [facility] RN Member Role: Primary Care Nurse Name: Dacia Evangelista RN Position: [facility] RN Member Role: Primary Care Nurse Name: Tracey Linares RN Position: [facility] AMB Nurse Member Role: Primary Care Nurse Name: Italia Ortega RN Position: [facility] RN Member Role: Primary Care Nurse Name: Catalina He RN Position: [facility] AMB Nurse Member Role: Primary Care Nurse Name: Cortez Golden RN Position: [facility] RN Member Role: Primary Care Nurse Name: Jessica Lantigua RN Position: [facility] SN RN Member Role: Primary Care Nurse Name: Catalina Pack RN Position: [facility] SN RN Member Role: Primary Care Nurse Name: Clifford Gerber RN Position: [facility] RN Member Role: Primary Care Nurse Name: Peter Monahan RN Position: [facility] RN Member Role: Primary Care Nurse Name: Aziza Poole RN Position: [facility] RN Member Role: Primary Care Nurse Name: Katheryn Wu RN Position: [facility] RN Member Role: Primary Care Nurse Name: Doris Dee RN Position: [facility] RN Member Role: Primary Care Nurse Name: Janae Soto RN Position: [facility] RN Member Role: Primary Care Nurse Name: Hyun Ochoa RN Position: [facility] RN Member Role: Primary Care Nurse Name: Nancy Magana RN Position: [facility] RN Member Role: Primary Care Nurse Name: Ranjana Zavala RN Position: [facility] RN Member Role: Primary Care Nurse Name: Melvi Carter RN Position: [facility] OB RN Member Role: Primary Care Nurse Name: Jackson Rosen RN Position: [facility] RN Member Role: Primary Care Nurse Name: Clarissa Rodriguez RN Position: [facility] RN Vikram Member Role: Primary Care Nurse Name: Ophelia Marie RN Position: [facility] RN Member Role: Primary Care Nurse Name: Nolvia Mendes RN Position: [facility] RN Member Role: Primary Care Nurse Name: Adi Rees RN Position: [facility] RN Member Role: Primary Care Nurse Name: Alonzo Esposito DO Position: [facility] Resident Member Role: PCP Address: Address: [address] [place] [address]- Name: Doroteo Morrow RN Position: [facility] RN Member Role: Primary Care Nurse Address: Address: [address] [place] [address]- Name: Cassidy Masters RN Position: [facility] RN Member Role: Primary Care Nurse Name: Juancarlos Valente RN Position: [facility] Hospital Fly Raiser Lockstitch Member Role: Primary Care Nurse Care Team Related Persons Name: SYLVIA BARBOSA Address: home [address] [place] [id number] Name: GAGE HUNT Address: [address] [place] [address] Name: JOCELYN HUNT Address: home [address] [place] [address]
--- OUTSIDE RECORDS SUMMARY | 2024-05-24 04:31 | XMS_ITS | Continuity of Care Document ---
Author Organization [facility] Address [address] [place] [address]- Care Team Providers Care Custom Dressmaker Name Role Phone Alonzo Esposito DO Primary Care Physician [phone] Encounter [facility] Date(s): 04/09/23 - 05/09/23 [facility] [address] [place] [address]- Attending Physician: Lori Patton Admitting Physician: AdmLori sandhu Referring Physician: Admtr, Ar8 Allergies, Adverse Reactions, Alerts Substance Reaction Severity Status lisinopril Angioedema Active Shrimp Active Immunizations Given and Recorded Vaccine Date Status Refusal Reason [id number] 12y+ bivalent booster vax 11/03/22 Given influenza virus vaccine, inactivated 11/03/22 Give n influenza virus vaccine, inactivated 02/15/22 Give n influenza virus vaccine, inactivated 09/01/20 Give n influenza virus vaccine, inactivated 09/15/19 Give n influenza virus vaccine, inactivated 11/19/18 Give n influenza virus vaccine, inactivated 09/10/17 Give n influenza virus vaccine, inactivated 12/06/15 Give n SARS-CoV-2 mRNA ([id number]-[id number]) vax 01/26/22 Given SARS-CoV-2 mRNA ([id number]) vax 12/28/21 Given tetanus/diphtheria/pertussis, acel(Tdap) 03/29/19 Given tetanus/diphtheria/pertussis, acel(Tdap) 09/10/17 Given pneumococcal 23-valent vaccine 04/08/18 Recorded pneumococcal 23-valent vaccine 04/22/17 Recorded pneumococcal 23-valent vaccine 12/21/12 Given Medications acetaminophen-oxycodone 325 mg-10 mg oral tablet 1 tablet, By Mouth, Daily at bedtime, for 30 days, mass pat verified, # 30 tablet, 0 Refills, Acute05/19/23 21:13:00 EDT, 04/19/23 21:13:00 EDT, [facility]/pharmacy #[id number], Partial fill upon patient requestif the prescription is for a schedule II opioid aditya... Start Date: 04/19/23 Stop Date: 05/19/23 Status: Ordered Alcohol Wipes See Instructions, # 1 box, Maintenance, please use before testing three times a day: dx type 2 diabetes, 04/04/18 18:52:53 EDT, Compound Start Date: 04/04/18 Status: Ordered aspirin 81 mg oral tablet, chewable 81 mg, 1, tablet, By Mouth, Daily, # 30 tablet, Refills 0, Tot. Refills 0, Maintenance, 03/15/23 0:06:00 EDT, [id number] Partial fill upon patient request if the prescription is for a schedule II opioid drug.... Start Date: 03/15/23 Status: Ordered atorvastatin 40 mg oral tablet 1 tablet, By Mouth, Daily, # 90 tablet, 1 Refills, Maintenance, 03/01/23 12:46:00 EDT, [id number], 166, cm, 01/18/23 15:56:00 EDT, Height, 91, [...] tablet, 1 Refills, Maintenance, 02/22/23 8:17:00 EDT, [facility]/pharmacy #[id number], 166, cm, 01/18/23 15:56:00 EDT, Height, 91, kg, 01/18/23 15:56:00 EDT, Dry Weight Start Date: 02/22/23 Status: Ordered chlorhexidine topical 0.12% liquid See Instructions, swish and spit; do not swallow. use 3-4 x/ day, # 473 mL, 0 Refills, Maintenance,04/30/23 14:38:00 EDT, [facility]/pharmacy #[id number], Partial fill upon patient [...] 3 Refills, Maintenance, 04/30/23 14:32:00 EDT, Gel, [facility]/pharmacy #[id number], Partial fill upon patient [...] tablet, 11 Refills, Maintenance, 06/15/22 17:40:00EDT, Tablet, [facility]/pharmacy #[id number], Partial fill upon patient request if the prescription is for a schedule II opioid drug., 165, cm, 06/15/22 14:29:00 ED... Start Date: 06/15/22 Status: Ordered ibuprofen 600 mg oral tablet 600 mg, 1, tablet, By Mouth, 3 times a day, # 90 tablet, Refills 0, Tot. Refills 0, Maintenance, 09/06/22 21:10:00 EST, Route to Pharmacy Electronically, [facility]/pharmacy #[id number], Partial fill upon patientrequest if [...] 3 Refills, Maintenance, 04/30/23 14:32:00 EDT, Film, [id number], Partial fill upon patient request if the prescription is for a schedule II opioid drug., 1 patch Top... Start Date: 04/30/23 Status: Ordered lidocaine 5% topical film 1 patch, Topically, Daily, PRN NEEDED FOR MODERATE PAIN, REMOVE AFTER 12 HOURS (12 HRS ON, 12 HRS OFF), # 10 patch, 0 Refills, Maintenance, 07/20/22 15:26:00 EDT, [facility], 10, APPLY 1 PATCH DAILY NEEDED FOR MODERATE PAIN..REMOVE AFTER 12... Start Date: 07/20/22 Status: Ordered Motrin IB 200 mg oral tablet 2 tablet = 400 mg, By Mouth, Every 6 hours, PRN for pain, # 120 tablet, 0 Refills, Maintenance, 03/17/23 20:06:00 EDT, Tablet, [facility]/pharmacy #[id number], Partial fill upon patient request if the prescription is for a schedule II opioid drug., 165, cm, ... Start Date: 03/17/23 Status: Ordered nitroglycerin 0.4 mg sublingual tablet 1 tablet = 0.4 mg, Sublingual, Every 5 minutes, PRN Chest Pain, # 100 tablet, 0 Refills, Maintenance, 11/06/22 13:52:00 EST, Tablet, [id number], Partial fill upon patient request if the prescription is for a schedule II opioid drug., 175, cm,... Start Date: 11/06/22 Status: Ordered omeprazole 20 mg oral enteric coated capsule 1 capsule, By Mouth, Daily, # 30 capsule, 5 Refills, Maintenance, 03/03/23 15:23:00 EDT, [id number], 166, cm, 01/18/23 15:56:00 EDT, Height, 91, kg, 01/18/23 15:56:00 EDT, Dry Weight Start Date: 03/03/23 Status: Ordered OxyCONTIN 15 mg oral tablet, extended release 1 tablet = 15 mg, By Mouth, Every 12 hours, MassPAT checked dx: M54.5 on agreement do not fill until 03/24/23, # 60 tablet, 0 Refills, Maintenance, 04/11/23 12:33:00 EDT, ER Tablet, [facility]/pharmacy #[id number], Partial fill upon patient request if the presc... Start Date: 04/11/23 Status: Ordered PAP Supplies - Mask, Tubing, [...] 04/19/23 20:48:00 EDT, Route to Pharmacy Electronically, [id number], 165, cm, 04/09/23 9:47:00 EDT, Height, 89.1, [...] EST, Supply Start Date: 12/12/22 Status: Ordered Awning Craftsman Awning Craftsman, See Instructions, # 1 each, Refills 0, [...] 03/17/23 20:06:00 EDT, Route to Pharmacy Electronically, [facility]/pharmacy #[id number], Partial fill upon patient request if the prescription is for... Start Date: 03/17/23 Status: Ordered Ventolin HFA 108 mcg/inh inhalation aerosol with adapter 2 puffs, Inhalation, 4 times a day, PRN NEEDED FOR WHEEZING, # 18 Gm, 11 Refills, Maintenance, 02/22/23 8:17:00 EDT, [facility]/pharm[facility] #[id number], 166, cm, 01/18/23 15:56:00 EDT, [...] Active Health shelter, active care coordination PADMINI Mata [phone] Confirmed Active Fatty infiltration of liver Confirmed Active Tubular adenoma of colon Confirmed Active 1history of this with surgical correction Social History Social History Type Response Smoking Status Former smoker; Other : Quit 2014; entered on: 09/10/17 Sex Patient Care team information Care Team Personnel Name: Macarena Lewis RN Position: S RN Member Role: Primary Care Nurse Name: Mallory Lugo RN Position: [facility] RN Member Role: Primary Care Nurse Name: Carmen Gao RN Position: [facility] RN Member Role: Primary Care Nurse Name: Dacia Evangelista RN Position: [facility] RN Member Role: Primary Care Nurse Name: Tracey Linares RN Position: [facility] AMB Nurse Member Role: Primary Care Nurse Name: Italia Ortega RN Position: [facility] RN Member Role: Primary Care Nurse Name: Catalina He RN Position: [facility] AMB Nurse Member Role: Primary Care Nurse Name: Cortez Golden RN Position: [facility] RN Member Role: Primary Care Nurse Name: Jessica Lantigua RN Position: [facility] SN RN Member Role: Primary Care Nurse Name: Catalina Pack RN Position: [facility] SN RN Member Role: Primary Care Nurse Name: Clifford Gerber RN Position: [facility] RN Member Role: Primary Care Nurse Name: Peter Monahan RN Position: [facility] RN Member Role: Primary Care Nurse Name: Aziza Poole RN Position: [facility] RN Member Role: Primary Care Nurse Name: Katheryn Wu RN Position: [facility] RN Member Role: Primary Care Nurse Name: Doris Dee RN Position: [facility] RN Member Role: Primary Care Nurse Name: Janae Soto RN Position: [facility] RN Member Role: Primary Care Nurse Name: Hyun Ochoa RN Position: [facility] RN Member Role: Primary Care Nurse Name: Nancy Magana RN Position: [facility] RN Member Role: Primary Care Nurse Name: Ranjana Zavala RN Position: [facility] RN Member Role: Primary Care Nurse Name: Melvi Carter RN Position: [facility] OB RN Member Role: Primary Care Nurse Name: Jackson Rosen RN Position: [facility] RN Member Role: Primary Care Nurse Name: Clarissa Rodriguez RN Position: [facility] RN Vikram Member Role: Primary Care Nurse Name: Ophelia Marie RN Position: [facility] RN Member Role: Primary Care Nurse Name: Nolvia Mendes RN Position: [facility] RN Member Role: Primary Care Nurse Name: Adi Rees RN Position: [facility] RN Member Role: Primary Care Nurse Name: Alonzo Esposito DO Position: [facility] Resident Member Role: PCP Address: Address: [address] [place] [address]- Name: Doroteo Morrow RN Position: [facility] RN Member Role: Primary Care Nurse Address: Address: [address] [place] [id number]- Name: Cassidy Masters RN Position: [facility] RN Member Role: Primary Care Nurse Name: Juancarlos Valente RN Position: [facility] Hospital Pump House Engineer Member Role: Primary Care Nurse Care Team Related Persons Name: SYLVIA BARBOSA Address: [address] [place] [address] Name: GAGE HUNT Address: [address] [place] [address] Name: JOCELYN HUNT Address: home [address] [place] [address]
--- OUTSIDE RECORDS SUMMARY | 2024-05-24 04:31 | XMS_ITS | Continuity of Care Document ---
Author Organization [facility] Address [address] [place] [address]- Care Team Providers Care Advisory Software Engineer Name Role Phone Dawna Hernandez MD Primary Care Physician Encounter [facility] Date(s): 12/11/22 - 01/10/[address] [id number] Allergies, Adverse Reactions, Alerts Substance Reaction Severity Status lisinopril Angioedema Active Shrimp Active Immunizations Given and Recorded Vaccine Date Status Refusal Reason [id number] 12y+ bivalent booster vax 11/03/22 Given influenza virus vaccine, inactivated 11/03/22 Give n influenza virus vaccine, inactivated 02/15/22 Give n influenza virus vaccine, inactivated 09/01/20 Give n influenza virus vaccine, inactivated 09/15/19 Give n influenza virus vaccine, inactivated 11/19/18 Give n influenza virus vaccine, inactivated 09/10/17 Give n influenza virus vaccine, inactivated 12/06/15 Give n SARS-CoV-2 mRNA ([id number]) vax 01/26/22 Given SARS-CoV-2 mRNA ([id number]) vax 12/28/21 Given tetanus/diphtheria/pertussis, acel(Tdap) 03/29/19 Given [...] 3 Refills, Maintenance, 05/11/22 14:22:00 EDT, Tablet, [facility] #[id number], Partial fill upon patient request if [...] tablet, 1 Refills, Maintenance, 04/05/22 7:53:00 EDT, [facility] #[id number], 165, cm, 02/15/22 10:35:00 EDT, Height, 90.7, kg, 02/06/22 19:49:00 EDT, Dry Weight Start Date: 04/05/22 Status: Ordered Colace sodium 100 mg oral capsule 100 mg, 1, capsule, By Mouth, 2 times a day, PRN, # 20 capsule, Refills 0, Tot. Refills 0, Maintenance, for constipation, 09/22/22 9:53:00 EST, Route to Pharmacy Electronically, [facility]pharm[facility] #[id number], Partial fill upon patient request if [...] at bedtime, PRN as needed for pain, # 30 tablet, 0 Refills, Maintenance, 01/04/23 12:39:00 EDT, Tablet, [id number], Partial fill upon patient request if the prescription is for a schedule II opioid drug., 1 tablet By... Start Date: 01/04/23 Status: Ordered FLUoxetine 20 mg oral capsule [...] tablet, 11 Refills, Maintenance, 06/15/22 17:40:00EDT, Tablet, [facility] #[id number], Partial fill upon patient request if the prescription is for a schedule II opioid drug., 165, cm, 06/15/22 14:29:00 ED... Start Date: 06/15/22 Status: Ordered ibuprofen 600 mg oral tablet 600 mg, 1, tablet, By Mouth, 3 times a day, # 90 tablet, Refills 0, Tot. Refills 0, Maintenance, 09/06/22 21:10:00 EST, Route to Pharmacy Electronically, [facility] #[id number], Partial fill upon patientrequest if the [...] patch, 0 Refills, Maintenance, 07/20/22 15:26:00 EDT, [id number], 10, APPLY 1 PATCH DAILY NEEDED FOR MODERATE PAIN..REMOVE AFTER 12... Start Date: 07/20/22 Status: Ordered nitroglycerin 0.4 mg sublingual tablet 1 tablet = 0.4 mg, Sublingual, Every 5 minutes, PRN Chest Pain, # 100 tablet, 0 Refills, Maintenance, 11/06/22 13:52:00 EST, Tablet, [facility] #[id number], Partial fill upon patient request if the prescription is for a schedule II opioid drug., 175, cm,... Start Date: 11/06/22 Status: Ordered omeprazole 20 mg oral enteric coated capsule 1 capsule = 20 mg, By Mouth, Daily, # 30 capsule, 1 Refills, Maintenance, 01/04/23 12:40:00 EDT, ECCapsule, [facility] #[id number], Partial fill upon patient request if the prescription is for a schedule II opioid drug., 165, cm, 01/04/23 9:35:00 EDT, He... Start Date: 01/04/23 Status: Ordered OxyCONTIN 15 mg oral tablet, extended release 1 tablet = 15 mg, By Mouth, Every 12 hours, dx: M54.[address] of oxycodone, # 60 tablet, 0 Refills, Maintenance, 12/01/22 12:02:00 EST, ER Tablet, [facility] #[id number], Partial fill upon patient request if [...] tablet, Refills 5, Route to Pharmacy Electronically, [id number], 166, cm, 12/28/21 10:33:00 EDT, Height, 91.9, [...] EST, Supply Start Date: 12/12/22 Status: Ordered Insert Cutter Insert Cutter, See Instructions, # 1 each, Refills 0, [...] each, 0 Refills, Maintenance, 12/12/22 12:14:00 EST, [id number], 175, cm, 11/15/22 9:07:00 EST, Height, 88.2, [...] Active Obstructive sleep apnea Confirmed Active Health skilled nursing, active care coordination PADMINI Nancy Esperanza [phone] Confirmed Active Fatty infiltration of liver Confirmed Active Tubular adenoma of colon Confirmed Active 1history of this with surgical correction Social History Social History Type Response Smoking Status Former smoker; Other : Quit 2014; entered on: 09/10/17 Sex Patient Care team information Care Team Personnel Name: Macarena Lewis RN Position: [facility] RN Member Role: Primary Care Nurse Name: Mallory Lugo RN Position: [facility] RN Member Role: Primary Care Nurse Name: Carmen Gao RN Position: [facility] RN Member Role: Primary Care Nurse Name: Dacia Evangelista RN Position: [facility] RN Member Role: Primary Care Nurse Name: Tracey Linares RN Position: [facility] PCO RN Member Role: Primary Care Nurse Name: Italia Ortega RN Position: [facility] RN Member Role: Primary Care Nurse Name: Catalina He RN Position: [facility] AMB Nurse Member Role: Primary Care Nurse Name: Cortez Golden RN Position: [facility] RN Member Role: Primary Care Nurse Name: Jessica Lantigua RN Position: [facility] SN RN Member Role: Primary Care Nurse Name: Clifford Gerber RN Position: [facility] RN Member Role: Primary Care Nurse Name: Peter Monahan RN Position: [facility] RN Member Role: Primary Care Nurse Name: Aziza Poole RN Position: [facility] RN Member Role: Primary Care Nurse Name: Monet Miller RN Position: [facility] RN Member Role: Primary Care Nurse Name: Katheryn Wu RN Position: [facility] RN Member Role: Primary Care Nurse Name: Doris Dee RN Position: [facility] RN Member Role: Primary Care Nurse Name: Janae Soto RN Position: [facility] RN Member Role: Primary Care Nurse Name: Hyun Ochoa RN Position: [facility] RN Member Role: Primary Care Nurse Name: Nancy Magana RN Position: [facility] RN Member Role: Primary Care Nurse Name: Ranjana Zavala RN Position: [facility] RN Member Role: Primary Care Nurse Name: Melvi Carter RN Position: [facility] OB RN Member Role: Primary Care Nurse Name: Jackson Rosen RN Position: [facility] RN Member Role: Primary Care Nurse Name: Clarissa Rodriguez RN Position: [facility] RN Supv Member Role: Primary Care Nurse Name: Ophelia Marie RN Position: [facility] RN Member Role: Primary Care Nurse Name: Nolvia Mendes RN Position: [facility] RN Member Role: Primary Care Nurse Name: Adi Rees RN Position: [facility] RN Member Role: Primary Care Nurse Name: Catalina Torres RN Position: [facility] RN Member Role: Primary Care Nurse Name: Doroteo Morrow RN Position: [facility] RN Member Role: Primary Care Nurse Address: Address: [address] [place] [id number]- Name: Cassidy Masters RN Position: [facility] RN Member Role: Primary Care Nurse Name: Juancarlos Valente RN Position: [facility] Hospital Amortization Clerk Member Role: Primary Care Nurse Name: Dawna Hernandez MD Position: [facility] Primary Care Physician Member Role: PCP Address: Address: [address] [place] [address]- Care Team Related Persons Name: SYLVIA BARBOSA Address: [address] [place] [address] Name: GAGE HUNT Address: [address] [place] [address] Name: JOCELYN HUNT Address: home [address] [place] [address]
--- OUTSIDE RECORDS SUMMARY | 2024-05-24 04:32 | XMS_ITS | Continuity of Care Document ---
Author Organization [facility] ter Address [address] [place] [id number]- Care Team Providers Care Melter Loader Name Role Phone Alonzo Esposito MD Primary Care Physician [phone] [facility] [place]06[place]23 - 09/10/[address] [address]- Encounter Diagnosis Cervical stenosis of spine(Final) - 09/06/23 Neck pain(Final) - 09/06/23 Stenosis of intervertebral foramen(Final) - 09/06/23 Discharge Disposition: A-Transfer VNA/Home Health Attending Physician: Parth Tucker MD Admitting Physician: Darron Bustillos MD Referring Physician: Not on Staff, Referring [...] influenza virus vaccine, inactivated 12/06/15 Give n [id number] 12y+ bivalent booster vax 11/03/22 Given SARS-CoV-2 mRNA (gvunowi-[id number]) vax 01/26/22 Given SARS-CoV-2 mRNA (xroplzv-hohk-vhshs) vax 12/28/21 Given tetanus/diphtheria/pertussis, acel(Tdap) 03/29/19 Given tetanus/diphtheria/pertussis, acel(Tdap) 09/10/17 Given pneumococcal 23-valent vaccine 04/08/18 Recorded pneumococcal 23-valent vaccine 04/22/17 Recorded pneumococcal 23-valent vaccine 12/21/12 Given Medications aspirin 81 mg oral delayed release tablet 81 mg, By Mouth, Daily, # 30 tablet, Refills 0, Tot. Refills 0, Maintenance, 08/31/23 15:47:00 EST,Route to Pharmacy Electronically, [facility]/pharmacy #[id number], Partial fill upon patient request if the prescription is for a schedule II opioid drug., 165, cm,... Start Date: 08/31/23 Status: Ordered atorvastatin 40 mg oral tablet 1 tablet = 40 mg, By Mouth, Daily, # 30 tablet, 5 Refills, Maintenance, 08/31/23 15:48:00 EST, Tablet, [facility]/pharmacy #[id number], Partial fill upon patient request if the prescription is for a schedule II opioid drug., 165, cm, 08/31/23 14:45:00 EST, Height,... Start Date: 08/31/23 Stop Date: 02/27/24 Status: Ordered Dilaudid Inj 1 mg, Injection, IV Push Slowly, Every 4 hours, PRN for Pain , Severe, Routine, 09/06/23 21:23:00 EST Start Date: 09/06/23 Stop Date: 09/11/23 Status: Discontinued FLUoxetine 20 mg oral capsule TAKE 3 CAPSULES BY MOUTH EVERY DAY IN THE MORNING Start Date: 06/04/23 Status: Ordered gabapentin 300 mg oral capsule 300 mg, 1, capsule, By Mouth, 2 times a day, # 60 capsule, Refills 0, Tot. Refills 0, Maintenance, 08/14/23 13:53:00 EDT, Route to Pharmacy Electronically, [facility]/pharmacy #[id number], Partial fill upon patient request if the prescription is for a schedule II... Start Date: 08/14/23 Status: Ordered gabapentin 300 mg oral capsule 300 mg, Capsule, By Mouth, 09/10/23 9:00:00 EST Start Date: 09/10/23 Stop Date: 09/10/23 Status: Completed Medrol Dosepak 4 mg oral tablet 1 pack/packet, By Mouth, Daily, for 6 days, as directed on package labeling, # 21 tablet, 5 Refills, Acute 10/06/23 15:48:00 EST, 08/31/23 15:48:00 EST, Tablet, [facility]/pharmacy #[id number], Partial fill upon patient request if the prescription is for a schedul... Start Date: 08/31/23 Stop Date: 10/06/23 Status: Ordered nitroglycerin 0.4 mg sublingual tablet 1 tablet = 0.4 mg, Sublingual, Every 5 minutes, PRN Chest Pain, # 100 tablet, 0 Refills, Maintenance, 06/08/23 16:23:00 EDT, Tablet, [id number], Partial fill upon patient request if the prescription is for a schedule II opioid drug., 165, cm,... Start Date: 06/08/23 Status: Ordered oxyCODONE 10 mg oral tablet 1 tablet = 10 mg, By Mouth, Every 6 hours, PRN Pain , Severe, for 5 days, # 20 tablet, 0 Refills, Acute 09/15/23 14:31:00 EST, 09/10/23 14:31:00 EST, Tablet, [id number], Partial fill upon patient request if the prescription is for a schedule I... Start Date: 09/10/23 Stop Date: 09/15/23 Status: Ordered OxyCONTIN 10 mg oral tablet, extended release 10 mg, ER Tablet, By Mouth, 09/10/23 9:00:00 EST Start Date: 09/10/23 Stop Date: 09/10/23 Status: Completed OxyCONTIN 15 mg oral tablet, extended release 1 tablet = 15 mg, By Mouth, Every 12 hours, dx: M54.5 MassPAT checked; appropriate, # 60 tablet, 0 Refills, Maintenance, 08/14/23 13:55:00 EDT, ER Tablet, [id number], Partial fill upon patient request if the prescription is for a schedule II... Start Date: 08/14/23 Stop Date: 09/13/23 Status: Ordered propranolol 20 mg oral tablet 40 mg, Tablet, By Mouth, 09/10/23 9:00:00 EST Start Date: 09/10/23 Stop Date: 09/10/23 Status: Completed propranolol 20 mg oral tablet 2, tablet, By Mouth, 2 times a day, # 120 tablet, Refills 5, Maintenance, 04/19/23 20:48:00 EDT, Route to Pharmacy Electronically, [id number], 165, cm, 04/09/23 9:47:00 EDT, Height, 89.1, [...] Gm, 11 Refills, Maintenance, 02/22/23 8:17:00 EDT, [facility]/pharmacy #[id number], 166, cm, 01/18/23 15:56:00 EDT, Height, 91, kg, 01/18/23 15:56:00 EDT, Dry Weight Start Date: 02/22/23 Status: Ordered walker with wheels walker with wheels, See Instructions, # 1 each, Refills 0, Tot. Refills 0, Maintenance, Diagnosis: paresthesia in BLE fall risk, 08/31/23 12:56:00 EST, Supply Start Date: 08/31/23 Status: Ordered Problem List Condition Confirmation Course [...] Active Obstructive sleep apnea Confirmed Active Health detention, active care coordination PADMINI Mata [phone] Confirmed Active Fatty infiltration of liver Confirmed Active Tubular adenoma of colon Confirmed Active 1history of this with surgical correction Results Radiology Reports * Exam Date Time Procedure Performing Provider Status 09/08/23 7:57 PM MRI Cervical Spine W/O Contrast Melissa , Faina; Auth (Verified) Notes: (MRI Cervical Spine W/O Contrast) Reason For Exam: Pain/Trauma RESULT: MRI Cervical Spine W/O Contrast MRI Cervical Spine W/O Contrast Reason: Pain Trauma; Clinical Question(s): Other:; rule out ligamentous injury; Order Comment: Please see Reference Text for complete list of contraindications Other: TECHNIQUE: MRI of the cervical spine was performed without intravenous contrast utilizing sagittal T1, sagittal T2, sagittal STIR, axial gradient echo, and axial T2-weighted sequences. COMPARISON: MRI on 08/31/2023 [facility] on 09/06/2023. FINDINGS: LOCALIZER: No additional findings on limited localizer images. ALIGNMENT, VERTEBRAE, MARROW, AND DISCS: The cervical spine shows a minimal anterolisthesis of C7 over T1. No vertebral body fracture is seen. The bone marrow signals are within normal limits. Disc desiccation in the mild degenerative amply changes are seen diffusely. Anterior osteophytes are more s ignificant at C4-C5 and C5-C6 levels. On the sagittal images, the alignment of thoracic and lumbar spine is unremarkable. No definite stenosis. Mild spondylosis is similar. POSTERIOR FOSSA AND CORD: Visualized posterior fossa is normal. Again demonstrated the 3 mm area ofincreased T2 signal within the left anterior cord at level of C4 which could represent cord edema or ischemia. The rest of cervical cord shows no other areas of abnormal signal. PARASPINAL TISSUES: No epidural hematoma or prevertebral soft tissue swelling. DETAILED FINDINGS BY LEVEL: C2-C3: No significant canal stenosis or neural foraminal narrowing. C3-C4: There is a moderate broad-based disc protrusion. This causes stenosis with mild cord compression. A 3 mm focal area of abnormal signal is seen within the left-sided cord suggesting cord edema or ischemia. There are uncovertebral joint osteophytes bilaterally, more on right. Moderate right and mild left neural foraminal narrowing. C4-C5: There is a mild diffuse disc bulge. The spinal canal is stenotic without cord compression. There are uncovertebral joint osteophytes bilaterally causing mild right and no left neural foraminalnarrowing. C5-C6: There is a broad-based osteophyte/disc complex greater on the left. There are uncovertebral joint osteophytes bilaterally more on the left. Moderate right and severe left neural foraminal narrowing with left-sided nerve root compression. C6-C7: There is a minimal disc bulge. No significant canal stenosis mild uncovertebral joint osteophytes are seen bilaterally causing mild neural foraminal narrowing. C7-T1: No significant canal stenosis or neural foraminal narrowing. IMPRESSION: Again demonstrated the 3 mm area of increased T2 signal within the left anterior cord at level of C4 which could represent cord edema or ischemia. Multilevel cervical spondylosis as described above. There is no significant interval change as compared to prior study. WSN: [id number] Ordering Physician: Ranjana Talbot Dictated By: Arthur Gifford MD Dictated Date/Time: 09/09/23 3:15 pm Reviewed By: Arthur Gifford MD Signed By: Arthur Gifford MD Signed Date/Time: 09/09/23 3:15 pm Transcribed By: HARPAL Transcribed Date/Time: 09/09/23 3:06 pm * Exam Date Time Procedure Performing Provider Status 09/06/23 12:[address] Cervical Spine W/O Contrast Edith Fox; Auth (Verified) Notes: (CT Cervical Spine W/O Contrast) Reason For Exam: Neck trauma, dangerous injury mechanism;Other: RESULT: CT Cervical Spine W/O Contrast CT Head/Brain W/O Contrast, CT Cervical Spine W/O Contrast INDICATION: Left arm pain and numbness; very left-sided paresthesias and weakness. Diabetes. Possible syncope. Concern of stroke. TECHNIQUE: Noncontrast head CT using axial technique was reconstructed in axial and coronal planes.Noncontrast spiral CT through the cervical spine was formatted in 3 planes. Automatic tube modulation was used for the cervical spine and iterative dose reconstruction was used for both the head and cervical spine to optimize scan parameters and image quality. CTDIvol Body: 19.00 mGy, DLP Body: 536 mGy*cm. CTDIvol Head: 39.40 mGy, DLP Head: 671 mGy*cm. COMPARISON: 08/30/2023 FINDINGS: Inspector Line View Findings, Lines and Tubes: None. BRAIN AND EXTRA-AXIAL SPACES: No parenchymal hemorrhage, midline shift, or mass effect. Esparza-white matter differentiation is wellpreserved. No acute infarct. Negative insular ribbon and hyperdense vessel signs. Ventricles, sulci, and basilar cisterns are normal. No white matter lesions. No subarachnoid hemorrhage. No subdural or epidural collection. CALVARIUM, SKULL BASE, AND SOFT TISSUES: No fractures or suspicious bony lesions. The paranasal sinuses are clear. Mastoid air cells and middle ear cavities clear. Visualized orbits and globes are intact. The extracranial soft tissues are unremarkable. CERVICAL SPINE: No fracture. No acute osseous abnormalities. Normal alignment. Multilevel degenerative change. This includes moderate Central spinal stenosis C3-C4 and mild central spinal stenosis at C4-C5 and C5-C6. OTHER BONES: No acute abnormality. CERVICAL SOFT TISSUES AND LUNG APICES: Normal soft tissues. Visualized lung apices are clear. Normal thyroid. IMPRESSION: HEAD 1. No acute intracranial amount. 2. No skull fracture. CERVICAL SPINE: 1. There is no fracture. There is no focal bony lesion. 2. Normal alignment. 3. Multilevel degenerative change. This includes central spinal stenosis at is moderate at C3-C4 and mild its for C5 and C5-C6. I have personally reviewed the images and I agree with this report. WSN: [id number] Ordering Physician: Jimmy Winter Dictated By: Arline Jacobsen MD Dictated Date/Time: 09/06/23 12:42 p Reviewed By: Mook Maradiaga MD Signed By: Mook Maradiaga MD Signed Date/Time: 09/06/23 12:47 pm Transcribed By: HARPAL Transcribed Date/Time: 09/06/23 12:25 pm * Exam Date Time Procedure Performing Provider Status 09/06/23 12:[address] Head/Brain W/O Contrast Edith Dias; Auth (Verified) Notes: (CT Head/Brain W/O Contrast) Reason For Exam: Trauma RESULT: CT Head/Brain W/O Contrast CT Head/Brain W/O Contrast, CT Cervical Spine W/O Contrast INDICATION: Left arm pain and numbness; very left-sided paresthesias and weakness. Diabetes. Possible syncope. Concern of stroke. TECHNIQUE: Noncontrast head CT using axial technique was reconstructed in axial and coronal planes.Noncontrast spiral CT through the cervical spine was formatted in 3 planes. Automatic tube modulation was used for the cervical spine and iterative dose reconstruction was used for both the head and cervical spine to optimize scan parameters and image quality. CTDIvol Body: 19.00 mGy, DLP Body: 536 mGy*cm. CTDIvol Head: 39.40 mGy, DLP Head: 671 mGy*cm. COMPARISON: 08/30/2023 FINDINGS: Inspector Line View Findings, Lines and Tubes: None. BRAIN AND EXTRA-AXIAL SPACES: No parenchymal hemorrhage, midline shift, or mass effect. Esparza-white matter differentiation is wellpreserved. No acute infarct. Negative insular ribbon and hyperdense vessel signs. Ventricles, sulci, and basilar cisterns are normal. No white matter lesions. No subarachnoid hemorrhage. No subdural or epidural collection. CALVARIUM, SKULL BASE, AND SOFT TISSUES: No fractures or suspicious bony lesions. The paranasal sinuses are clear. Mastoid air cells and middle ear cavities clear. Visualized orbits and globes are intact. The extracranial soft tissues are unremarkable. CERVICAL SPINE: No fracture. No acute osseous abnormalities. Normal alignment. Multilevel degenerative change. This includes moderate Central spinal stenosis C3-C4 and mild central spinal stenosis at C4-C5 and C5-C6. OTHER BONES: No acute abnormality. CERVICAL SOFT TISSUES AND LUNG APICES: Normal soft tissues. Visualized lung apices are clear. Normal thyroid. IMPRESSION: HEAD 1. No acute intracranial amount. 2. No skull fracture. CERVICAL SPINE: 1. There is no fracture. There is no focal bony lesion. 2. Normal alignment. 3. Multilevel degenerative change. This includes central spinal stenosis at is moderate at C3-C4 and mild its for C5 and C5-C6. I have personally reviewed the images and I agree with this report. WSN: [id number] Ordering Physician: Jimmy Winter Dictated By: Arline Jacobsen MD Dictated Date/Time: 09/06/23 12:42 p Reviewed By: Mook Maradiaga MD Signed By: Mook Maradiaga MD Signed Date/Time: 09/06/23 12:47 pm Transcribed By: HARPAL Transcribed Date/Time: 09/06/23 12:25 pm Vital Signs Most recent to oldest [Reference Range]: 1 2 3 4 Height 166 cm (09/09/23 2:31 PM) 166 cm (09/09/23 11:11 AM) 166 cm (09/09/23 7:25 AM) Weight 93 kg (09/06/23 4:13 PM) 93 kg (09/06/23 10:58 AM) 93 kg (09/06/23 8:43 AM) Oxygen Saturation [94-100 %] 94 % (09/10/23 11:00 AM) 96 % (09/10/23 8:00 AM) 98 % (09/10/23 4:01 AM) Pulse Rate [55-90 bpm] 81 bpm (09/10/23 11:00 AM) 72 bpm (09/10/23 8:37 AM) 72 bpm (09/10/23 8:00 AM) Body Mass Index [18.5-24.99 kg/m2] 33.75 kg/m2 *>HHI* (09/06/23 4:13 PM) 33.75 kg/m2 *>HHI* (09/06/23 10:58 AM) 33.75 kg/m2 *>HHI* (09/06/23 8:36 AM) Blood Pressure [90-138/55-84 mm Hg] 99/72mm Hg (09/10/23 11:00 AM) 104/68mm Hg (09/10/23 8:37 AM) 104/68mm Hg (09/10/23 8:00 AM) Respiratory Rate [16-30 br/min] 18 br/min (09/10/23 11:40 AM) 18 br/min (09/10/23 11:00 AM) 18 br/min (09/10/23 8:37 AM) 18 br/min (09/10/23 8:37 AM) Temperature [96.8-100.4 DegF] 97.4 DegF (09/10/23 11:00 AM) 97.7 DegF (09/10/23 8:00 AM) 98.0 DegF (09/10/23 4:01 AM) Mode of Delivery (Oxygen) Room air (09/10/23 11:00 AM) Room air (09/10/23 8:00 AM) Room air (09/10/23 4:01 AM) Blood pressure sites Arm, left (09/10/23 11:00 AM) Arm, left (09/10/23 8:00 AM) Arm, left (09/10/23 4:01 AM) Temperature Route Oral (09/10/23 11:00 AM) Oral (09/10/23 8:00 AM) Oral (09/10/23 4:01 AM) Dry Weight 93 kg (09/06/23 4:13 PM) 93 kg (09/06/23 10:58 AM) 93 kg (09/06/23 8:43 AM) Weight Obtained Via Patient/family stated (09/06/23 8:36 AM) Dry Weight Obtained Via Patient/family stated (09/06/23 8:36 AM) Social History Social History Type Response Smoking Status Former smoker; Other : Quit 2014; entered on: 09/10/17 Sex Male History and physical note * Grabiel RAWLS, Tong Trivedi: PERFORM Event Display: History and Physical Hospital Authored Date: Patient: ??JAMARCUS BARBOSA ? Age:??52 Years?Sex:??Male?:??1970?? Chief Complaint/Reason for Consultation Cervical myelopathy. ??Recent fall with worsening pain and numbness on the left side. History of Present Illness This is a pleasant 52-year-old man who is mostly Yoruba-speaking.?? I spoke to the patient his primary language.?? He has significant history of diabetes type 2 and currently on no medications, GERD, dyslipidemia, depression,??hypertension, chronic pain syndrome who was just discharged from this institution 6 days ago and diagnosed with severe central stenosis of C3-C4, moderate stenosis of C4-C5.?? The patient was scheduled for decompression surgery on September 19, 2023.?? The patient went home and continue having worsening symptoms of pain and numbness from his neck all the way down to his l eft shoulder, arm and left lower extremity. He sustained a fall 3 days ago while in the bathroom.?? When he woke up, he describes some urinary incontinence. Since then, the pain has worsened, tingling sensation??of the left arm and describing now some blurry vision and headaches.?? He decided to come to the emergency room for further evaluation. In the emergency room, he underwent repeated CT of the head and cervical spine.?? Imaging showed the presence of known stenosis at the level C3-4, C5 and C5-C6. The patient was placed in an Tappan collar and evaluated by the neuro surgery team who may plan to take him to the operative room tomorrow morning. Recommend repeat MRI of the cervical spine without contrast. Review of Systems A full review of systems was completed and is otherwise negative except as mentioned in history of present illness. Objective Measurements?? Height: 166 cm (09/06/23) Weight: 93 kg (09/06/23) Dry Weight: 93 kg (09/06/23) Body Mass Index:??33.75 kg/m2??Critical (09/06/23) ? Vital Signs?? Temperature: 98.1 DegF (09/06/23 20:00:00) Temperature Route: Oral (09/06/23 20:00:00) Pulse Rate: 89 bpm (09/06/23 20:00:00) Respiratory Rate: 18 br/min (09/06/23 20:00:00) Systolic Blood Pressure: 125 mm Hg (09/06/23 20:00:00) Diastolic Blood Pressure:??88 mm Hg??High (09/06/23 20:00:00) Blood pressure sites: Arm, right (09/06/23 20:00:00) Mean Arterial Pressure: 88 mm Hg (09/06/23 16:13:00) Pulse Pressure: 37 mm Hg (09/06/23 20:00:00) Oxygen Saturation: 99 % (09/06/23 20:00:00) Mode of Delivery (Oxygen): Room air (09/06/23 20:00:00) Early Warning Score: 0 (09/06/23:49:47) ? Physical Exam Constitutional: Alert, in no distress. Mental Status: Oriented to person, place and time. Head: Normocephalic. Eyes: Pupils are equal, round and reactive to light. Extraocular muscles intact. Ear, Nose and Throat: Oropharynx clear, mucous membranes moist. Ears and nose without masses, lesions or deformities. Trachea midline. Neck: ??Tappan collar in place Respiratory: Clear to auscultation. No wheezing, rales or rhonchi. Cardiovascular: S1 S2 regular. No murmurs, rubs or gallops. Gastrointestinal: Slightly obese, abdomen soft, non-tender, non-distended. Normal bowel sounds. No pulsatile mass. No hepatosplenomegaly. Genitourinary: No costovertebral angle tenderness. Neurologic: Cranial nerves II-XII grossly intact.Strength is 5 out of 5 on the right??side,4 out of5 on the left. ??Decree sensation of the left upper and lower extremity. ??Gait is not assessed. Skin: No rashes or lesions. No petechiae or purpura.??Multiple tattoos. Musculoskeletal: No cyanosis or clubbing. No gross deformities. Normal range of motion. Heme/Lymphatics/Immun: Palpation of neck reveals no swelling or tenderness of neck nodes. Palpationof groin reveals no swelling or tenderness of groin nodes. Psychiatric: Normal mood and affect Assessment/Plan Diagnoses Cervical stenosis of spine ??(M48.02) Depression ??(F32.A) Dyslipidemia ??(E78.5) Hypertension ??(I10) Neck pain ??(M54.2) Stenosis of intervertebral foramen ??(M48.00) Type 2 diabetes mellitus ??(E11.9) ?? Assessment:??This is a 52-year-old man with known cervical myelopathy??with stenosis of??C3-C4??andC5-C6??who sustained a mechanical fall 3 days ago and comes to the emergency room complaining of worsening pain??and numbness of the left side of his body. The patient??evaluated by neurosurgical surgical team??and scheduled for or intervention??probably tomorrow morning.??Patient had an appointment to have elective surgery on??September 19, 2023. ?? Cervical stenosis of spine (M48.02):??He will be admitted to regular room as inpatient. Tappan collar in place.?? Patient evaluated by the neurosurgical team while in the emergency room. Pain control??with OxyContin 10 mg p.o. twice a day??and Dilaudid 1 mg IV every 4 hours as needed for severe pain. Continue gabapentin 300 mg p.o. twice a day Patient is n.p.o. except for medications after midnight. MRI??without contrast of the cervical spine??has been ordered. ?? Type 2 diabetes mellitus (E11.9):??Currently on no medications at home.??Tcdka-[id number] before mealsand bedtime??with insulin sliding scale.??Last hemoglobin A1c was 6.0. ?? Depression (F32.A):??Continue fluoxetine 60 mg p.o. daily and??risperidone 4 mg at bedtime. ?? Dyslipidemia (E78.5):??Lipitor??40 mg p.o. once a day ?? Hypertension (I10):??Continue propranolol??40 mg p.o. twice a day ?? VTE Prophylaxis:??Bilateral compression boots. ?VTE Prophylaxis Assessment:??VTE Prophylaxis Ordered ?? Code Status:??He is a full code. ?Order Code Status:??Code Status Ordered ?? I spent a total of 75 minutes today reviewing the chart/medical records, speaking with the patient,formulating and discussing the treatment plan, and documenting the findings and encounter. Discharge Planning:? Histories Allergies Allergies ?(Active and Proposed Allergies Only) Shrimp? (Severity: Unknown severity, Onset: Unknown) lisinopril? (Severity: Unknown severity, Onset: Unknown) ?Reactions: Angioedema ? Past Medical History/Problem List Active Problems??(16) Cauda equina syndrome Chest pain Controlled substance agreement signed 05/29/2023 Depression Diabetes Fatty infiltration of liver GERD (gastroesophageal reflux disease) Health detention, active care coordination [phone] HTN (hypertension) Hyperlipidemia Illiteracy Lower back pain Lumbar radiculopathy Obese class I Obstructive sleep apnea Tubular adenoma of colon ? Past Surgical History Colonoscopy (poor prep): 07/25/17 Incision and drainage, deep abscess, bursa, or hematoma, thigh or knee region: 05/23/16 Esophagogastroduodenoscopy and biopsy: 05/15/16 Colonoscopy with polypectomy: 05/15/16 Incision and drainage, deep abscess, bursa, or hematoma, thigh or knee region Laminotomy (hemilaminectomy), with decompression of nerve root(s), including partial facetectomy, foraminotomy and/or excision of herniated intervertebral disc; 1 interspace, lumbar Nehal fundoplication ? Social History Alcohol Details:??Use: Current. ??Frequency: 1-2 times per year. Exercise Details:??Self assessment: Good condition. Home/Environment Details:??Living situation: Home/Independent. ??Lives with: Alone. ??Other: Has 4 daughters, 1 son. Nutrition/Health Details:??Diet: Regular. Substance Abuse Details:??Use: Never. Tobacco Details:??Former smoker, Other: Quit 2014. Electronic Cigarette/Vaping Details:??Electronic Cigarette Use: Never. ? Family History Mother: Arthritis; Diabetes mellitus; Emphysema ? Medications Home Medications Albuterol (Ventolin HFA 108 mcg/inh inhalation aerosol with adapter)?2?puff(s)?Inhalation?4 times a day?as needed? NEEDED FOR WHEEZING Aspirin (aspirin 81 mg oral delayed release tablet)?81?Milligram?By Mouth?Daily Atorvastatin (atorvastatin 40 mg oral tablet)?1?tab(s)?40?Milligram?By Mouth?Daily?for 30?Days Diclofenac Topical (diclofenac 1% topical gel)?1?lenore?Topically?4 times a day Durable Medical Equipment (walker with wheels)?See Instructions?Diagnosis: paresthesia in BLE??fall risk Fluoxetine (FLUoxetine 20 mg oral capsule)?TAKE 3 CAPSULES BY MOUTH EVERY DAY IN THE MORNING Gabapentin (gabapentin 300 mg oral capsule)?300?Milligram?1?capsule?By Mouth?2 times a day MethylPREDNISolone (Medrol Dosepak 4 mg oral tablet)?1?pack/packet?By Mouth?Daily?for 6?Days?as directed on package labeling Nitroglycerin (nitroglycerin 0.4 mg sublingual tablet)?1?tab(s)?0.4?Milligram?Sublingual?Every 5 minutes?as needed?Chest Pain Oxycodone (OxyCONTIN 15 mg oral tablet, extended release)?1?tab(s)?15?Milligram?By Mouth?Every 12 hours?for 30?Days?dx: M54.5MassPAT checked; appropriate Oxycodone / Acetaminophen (acetaminophen-oxycodone 325 mg-10 mg oral tablet)?1?tab(s)?By Mouth?Daily at bedtime?for 30?Days?mass pat verified Propranolol (propranolol 20 mg oral tablet)?2?tablet?By Mouth?2 times a day Risperidone (risperiDONE 2 mg oral tablet)?4?Milligram?2?tablet?By Mouth?Daily atbedtime?Rx'd ??by psychiatry Trazodone (traZODone 100 mg oral tablet)?TAKE 1/2 TO 1 TABLET BY MOUTH AT BEDTIME ? Results Recent Labs BLOOD BANK Blood Type O Positive ()?? 09/06/2023 16:17 Antibody Screen Negative ()?? 09/06/2023 16:17 ?? BLOOD COUNT & DIFF WBC 10.6 k/mm3 ()?? 09/06/2023 09:29 RBC 5.92 m/mm3 ()?? 09/06/2023 09:29 Hgb 16.5 Gm/dL ()?? 09/06/2023 09:29 Hct 52.2 % (High)?? 09/06/2023 09:29 MCV 88.2 femtoliters ()?? 09/06/2023 09:29 MCH 27.9 pg ()?? 09/06/2023 09:29 MCHC 31.6 g/dL (Low)?? 09/06/2023 09:29 Platelet Count 314 k/mm3 ()?? 09/06/2023 09:29 RDW-SD 46.5 femtoliters ()?? 09/06/2023 09:29 MPV 10.7 femtoliters ()?? 09/06/2023 09:29 Nucleated RBC (Automated) 0.0 #/100 WBC'S ()?? 09/06/2023 09:29 Abs. NRBC 0.0 k/mm3 ()?? 09/06/2023 09:29 Abs. Neut 7.8 k/mm3 (High)?? 09/06/2023 09:29 Abs. Lymph 2.0 k/mm3 ()?? 09/06/2023 09:29 Abs. [place] 0.5 k/mm3 ()?? 09/06/2023 09:29 Abs. Eo 0.1 k/mm3 ()?? 09/06/2023 09:29 Abs. Baso 0.0 k/mm3 ()?? 09/06/2023 09:29 Neut % 73.3 % ()?? 09/06/2023 09:29 Lymph % 19.2 % ()?? 09/06/2023 09:29 [place] % 5.0 % ()?? 09/06/2023 09:29 Eos % 1.3 % ()?? 09/06/2023 09:29 Baso % 0.4 % ()?? 09/06/2023 09:29 Imm Gran 0.8 % ()?? 09/06/2023 09:29 Abs. Imm Gran 0.1 k/mm3 ()?? 09/06/2023 09:29 ?? CARDIAC Nt-Probnp <36 pg/mL ()?? 09/06/2023 09:29 High Sensitivity Troponin (HSTnT) <6 ng/L ()?? 09/06/2023 09:29 ?? CHEM GENERAL Sodium 139 mmol/L ()?? 09/06/2023 09:29 Potassium 4.7 mmol/L ()?? 09/06/2023 09:29 Chloride 100 mmol/L ()?? 09/06/2023 09:29 Bicarbonate Level 27 mmol/L ()?? 09/06/2023 09:29 Anion Gap 12 ()?? 09/06/2023 09:29 Glucose Level 98 mg/dL ()?? 09/06/2023 09:29 BUN 17 mg/dL ()?? 09/06/2023 09:29 Creatinine-Blood 0.9 mg/dL ()?? 09/06/2023 09:29 Estimated GFR Creatinine 101 ML/MIN/1.73 M2 ()?? 09/06/2023 09:29 Calcium 9.5 mg/dL ()?? 09/06/2023 09:29 Protein, Total 7.8 Gm/dL ()?? 09/06/2023 09:29 Albumin 4.7 Gm/dL ()?? 09/06/2023 09:29 AG Ratio 1.5 ()?? 09/06/2023 09:29 Alkaline Phosphatase 152 units/L (High)?? 09/06/2023 09:29 AST (SGOT) 16 units/L ()?? 09/06/2023 09:29 ALT (SGPT) 16 units/L ()?? 09/06/2023 09:29 Bilirubin, Total 0.3 mg/dL ()?? 09/06/2023 09:29 ?? COAG INR 1.0 ()?? 09/06/2023 16:35 Protime (PT) 10.9 seconds ()?? 09/06/2023 16:35 ?? HEME OTHER Hold Blue Top SPECIMEN DISCARDED AFTER 4 HOURS. ()?? 09/06/2023 09:29 ?? UA/URINALYSIS Appear/Color, Urine LIGHT YELLOW ()?? 09/06/2023 10:50 Specific [place], Urine 1.025 ()?? 09/06/2023 10:50 pH, Urine 6.0 ()?? 09/06/2023 10:50 Albumin, Urine TRACE (Abnormal)?? 09/06/2023 10:50 Glucose, Urine NEGATIVE ()?? 09/06/2023 10:50 Ketones, Urine NEGATIVE ()?? 09/06/2023 10:50 Bilirubin, Urine NEGATIVE ()?? 09/06/2023 10:50 Hemoglobin, Urine 2+ (Abnormal)?? 09/06/2023 10:50 Nitrite, Urine NEGATIVE ()?? 09/06/2023 10:50 Leukocyte, Urine NEGATIVE ()?? 09/06/2023 10:50 Urobilinogen NORMAL mg/dL ()?? 09/06/2023 10:50 WBC's, Urine 1 /HPF ()?? 09/06/2023 10:50 RBC's, Urine 1 /HPF ()?? 09/06/2023 10:50 Squamous Epith 2 /HPF ()?? 09/06/2023 10:50 Mucus SLIGHT /LPF ()?? 09/06/2023 10:50 ?? URINE OTHER Est Creatinine Clearance 85.59 mL/min ()?? 09/06/2023 10:25 ?? VIROLOGY Influenza A PCR NEGATIVE ()?? 09/06/2023 09:32 Influenza B PCR NEGATIVE ()?? 09/06/2023 09:32 RSV PCR NEGATIVE ()?? 09/06/2023 09:32 COVID-19 PCR Specimen Source NASAL ()?? 09/06/2023 09:32 COVID-19 PCR Result NEGATIVE ()?? 09/06/2023 09:32 ? Imaging(s) ?CT Head/Brain W/O Contrast ?? 09/06/2023 12:08??by Mook Maradiaga MD ?IMPRESSION: ?? HEAD 1. No acute intracranial amount. 2. No skull fracture. ?CT Cervical Spine W/O Contrast ?? 09/06/2023 12:08??by Mook Maradiaga MD ?CERVICAL SPINE: 1. There is no fracture. There is no focal bony lesion. 2. Normal alignment. ?? 3. Multilevel degenerative change. This includes central spinal stenosis at is moderate at C3-C4 and mild its for C5 and C5-C6. ? EKG study * Event Display: EKG Authored Date: * Event Display: ECG 12-Lead Authored Date: Please click on pdf link to open report * Event Display: ECG 12-Lead Authored Date: Ventricular Rate: 74 BPM Atrial Rate: 74 BPM P-R Interval: 120 ms QRS Duration: 82 ms Q-T Interval: 380 ms QTC Calculation(Bazett): 421 ms P [place]: 33 degrees R [place]: 5 degrees T [place]: -15 degrees Normal sinus rhythm Normal ECG When compared with ECG of 30-AUG-2023 10:09, Inverted T waves have replaced nonspecific T wave abnormality in Inferior leads Confirmed by KIMBERLY RAWLS [facility] ([id number]) on 09/10/2023 2:43:08 PM [place]: KIMBERLY RAWLS,[facility] Progress note * Kelli Golden RN: PERFORM, SIGN, VERIFY Event Display: Progress Note Hospital Authored Date: [id number] Patient: JAMARCUS BARBOSA Age: 52 years Sex: Male : 1970 Associated Diagnoses: None Author: Kelli Golden RN Findings Problem Related to Alteration in Neurological : Alteration in Neurological Function/new 09/10/2023 9:00 EST Alteration in Neuro status Related to Other: cervical stenosis Goals & Outcomes, Neurological Lab studies/diagnostic tests within pt specific limits, Pt is safe with transfers & activities, Pt will be discharged without infection, Pt will be hemodynamically stable, Pt will be Neurologically stable, Pt will become pain free with appropriate intervention, Pt will maintain intact skin integrity, Pt will remain free from injury, Pt will resume/maintain ad equate cardiac output, Pt will state importance of adhering to medication regime, Pt/caregiver willreceive psychosocial support as needed, Pt/caregiver will state strategies to reduce risk factors, Pt/caregiver will state understanding aspiration precautions, Pt/caregiver will state understanding of disease process Interventions, Neurological Assess/monitor neurologic status, Assess/monitor VS per unit standards & prn, Maintain patient safety if unsteady gait, Monitor speech fluency, aphasia, word finding difficulty, Physical assessment per unit standards, Teach & encourage deep breath & cough exercises, Teach and encourage use of Incentive spirometer Goals/Interventions, Neurological Yes Neurological, Problem Start 09/06/2023 23:30 Reviewed plan with, Neurological Patient Patient Progression, Neurological Pt progressing according to plan . Evaluation Patient alert and oriented x 4, reporting 7/10 pain this morning. Scheduled oxycontin given per order. Patient reporting numbness/tingling to L side, L sided weakness noted. Tappan collar in place perorder. Lungs clear on room air, incentive spirometer use encouraged. Positive pulses, no edema noted. Abdomen soft,round, nontender with positive bowel sounds.Patient voiding clear yellow urine inn bathroom. Bed remains in lowest locked positoin with call henriquez in reach. . * Da SilvaCris abbasi RN: PERFORM, SIGN, VERIFY Event Display: Progress Note Hospital Authored Date: Patient: JAMARCUS BARBOSA Age: 52 years Sex: Male : 1970 Associated Diagnoses: None Author: Cris Da Silva RN Findings Problem Related to Alteration in Neurological : Alteration in Neurological Function/new 09/09/2023 23:00 EST Alteration in Neuro status Related to Other: cervical stenosis Goals & Outcomes, Neurological Lab studies/diagnostic tests within pt specific limits, Pt is safe with transfers & activities, Pt will be discharged without infection, Pt will be hemodynamically stable, Pt will be Neurologically stable, Pt will become pain free with appropriate intervention, Pt will maintain intact skin integrity, Pt will remain free from injury, Pt will resume/maintain ad equate cardiac output, Pt will state importance of adhering to medication regime, Pt/caregiver willreceive psychosocial support as needed, Pt/caregiver will state strategies to reduce risk factors, Pt/caregiver will state understanding aspiration precautions, Pt/caregiver will state understanding of disease process Interventions, Neurological Assess/monitor for abnormal posturing, Assess/monitor neurologic status, Assess/monitor VS per unit standards & prn, Call/Report variances in assessments to provider, Maintain patient safety if unsteady gait, Maintain strict intake & output, Monitor for headaches, nausea, vomiting, Physical assessment per unit standards, Teach & encourage deep breath & cough exercises Goals/Interventions, Neurological Yes Neurological, Problem Start 09/06/2023 23:30 Reviewed plan with, Neurological Patient Patient Progression, Neurological Pt progressing according to plan . Nursing Data Neurological Data. : Neurological Data. 09/09/2023 23:36 EST Neurological Symptoms Altered sensation or tingling, Numbness, Weakness or loss of muscle strength Level of Consciousness Full Consciousness Characteristics of Speech Clear and normal Swallowing Difficulty None Strength LUE 4-Active movement against gravity & some resistance Strength RUE 5-Active movement against gravity & full resistance Strength LLE 4-Active movement against gravity & some resistance Strength RLE 5-Active movement against gravity & full resistance Tone LUE Normal Tone RUE Normal Tone LLE Normal Tone RLE Normal Sensation LUE Diminished Sensation RUE Intact Sensation LLE Diminished Sensation RLE Intact Movement LUE To command Movement RUE Spontaneous Movement LLE To command Movement RLE Spontaneous Response Eye Opening Spontaneously Motor Response-Adult Obeys commands Verbal Response-Adult Oriented and converses [place] Coma Score 15 1 - 10 Pain Scale Score 7 Pain Interventions Pharmacological, PRN medication, Repositioning, Rest Neuro WNL except Swallow - Neuro Normal . Vital Signs : VITAL SIGNS SECTION 09/09/2023 22:40 EST Temperature 98.6 DegF Temperature Route Oral Pulse Rate 73 bpm Respiratory Rate 18 br/min Systolic Blood Pressure 96 mm Hg Diastolic Blood Pressure 61 mm Hg Blood pressure sites Arm, left Pulse Pressure 35 mm Hg Oxygen Saturation 96 % Mode of Delivery (Oxygen) Room air . Pain Data : PAIN SECTION 09/09/2023 23:36 EST 1 - 10 Pain Scale Score 7 . Narrative/Incidental patients lungs are clear on room air. no edema, positive pedal pulses. abdomen is soft and nontender with positive bowel sounds. voiding. skin is intact. compression boots applied to bilateral lower extremities. . Evaluation P: alteration in neurological I: see above E: patient is alert and oriented x3. VSS. reports weakness and numbness to the L side of the body. C collar in place. denies headache. reporting 7/10 pain taking scheduled and PRN medication with moderate effect. patient resting comfortably in bed with call henriquez in reach and bed in the lowest locked position with bed alarm on. . Discharge Information Case Management Discharge Plan : Case Management Discharge Plan Data 09/07/2023 10:28 EST Discharge Level of Care at Discharge Homehealth/VNA Discharge VNA/Hospice/Home Care [facility] [phone] Name of Agency #1 [facility] [phone] Agency Mess Attendant #1 Intake Service Categories #1 Physical Therapy Service Comments #1 [facility] will contact you to restart your VNA services. Please call their office with any questions. * Tran Wiseman RN: PERFORM, SIGN, VERIFY Event Display: Progress Note Hospital Authored Date: [id number] Patient: JAMARCUS BARBOSA Age: 52 years Sex: Male : 1970 Associated Diagnoses: None Author: Tran Wiseman RN Findings Problem Related to Alteration in Comfort 09/09/2023 14:34 EST Alteration in Comfort Related to Disease process Goals & Outcomes: Comfort Pt will report acceptable level of comfort & pain control, Pt will state importance of adhering to pain strategy regime, Pt will demonstrate necessary skills to manage pain Interventions Implemented: Comfort Assess pain using appropriate pain scale/tools, Assess aggravating factors & prevent them accordingly, Assess alleviating factors & promote them accordingly Goals/Interventions, Comfort Yes Comfort, Problem Start 09/08/2023 15:39 Reviewed plan with, Comfort Patient Patient Progression, Comfort Pt progressing according to plan Comfort, Problem Ongoing Yes . Alteration in Neurological : Alteration in Neurological Function/new 09/09/2023 14:34 EST Alteration in Neuro status Related to Other: cervical stenosis Goals & Outcomes, Neurological Lab studies/diagnostic tests within pt specific limits, Pt is safe with transfers & activities, Pt will be discharged without infection, Pt will be hemodynamically stable, Pt will be Neurologically stable, Pt will become pain free with appropriate intervention, Pt will maintain intact skin integrity, Pt will remain free from injury, Pt will resume/maintain ad equate cardiac output, Pt will state importance of adhering to medication regime, Pt/caregiver willreceive psychosocial support as needed, Pt/caregiver will state strategies to reduce risk factors, Pt/caregiver will state understanding aspiration precautions, Pt/caregiver will state understanding of disease process Interventions, Neurological Assess/monitor neurologic status, Assess/monitor VS per unit standards & prn, Call/Report variances in assessments to provider, Collaborate w/ provider to implement appropriate guidelines, Document & Monitor O2 Sats; Administer O2 as ordered, If no bowel movementin 3 days activate bowel regime, Maintain patient safety if unsteady gait, Maintain strict intake & output, Monitor for headaches, nausea, vomiting, Monitor speech fluency, aphasia, word finding difficulty, Physical assessment per unit standards, Provide emotional support to Pt/caregiver, Resolved problem, Interventions no longer in effect, Teach & encourage deep breath & cough exercises, Teach and encourage use of Incentive spirometer, Teach pt/caregiver discharge plan & followup care, Teach pt/caregiver on plan of care, treatment, s/s & meds Goals/Interventions, Neurological Yes Neurological, Problem Start 09/06/2023 23:30 Reviewed plan with, Neurological Patient Patient Progression, Neurological Pt progressing according to plan . Nursing Data Vital Signs : VITAL SIGNS SECTION 09/09/2023 14:31 EST Temperature 98.1 DegF Temperature Route Oral Pulse Rate 86 bpm Respiratory Rate 20 br/min Systolic Blood Pressure 101 mm Hg Diastolic Blood Pressure 63 mm Hg Blood pressure sites Arm, left Mean Arterial Pressure 76 mm Hg Pulse Pressure 38 mm Hg Oxygen Saturation 93 % L Mode of Delivery (Oxygen) Room air . Evaluation Pt is a&ox4, Neuros intact, speaks in full sentences & moving all extremities equally. Pt c/o left sided weakness & numbness. +PP, +CMS. He reports moderate to severe pain to neck & left side upper & lower extremity pain. Cervical collar worn at all times. PRN IV Dilaudid & OxyContin given. Pt reports he does get some pain relief. . He denies CP/SOB. on room air; respirations are even & steady. Incentive spirometer in use. refusing to wear pneumo boots. He denies GI discomfort & tolerating regular diet. Abd SNT,+bowel sounds. last reported bm this morning. Skinintact. He is ambulating to bathroom w/ steady gait. No s/s hypo/hyperglycemia. Pt resting in bed at this time. OOB w/ SBA. Callbell & items within reach. Will maintain safety, comfort and monitor..... Consult note * Yasmeen RUDD, Stiven Moss: PERFORM, MODIFY Event Display: Consultation Note Authored Date: Patient: ??JAMARCUS BARBOSA ? Age:??52 Years?Sex:??Male?:??1970?? History of Present Illness This is a 52-year-old male who was previously evaluated by our service??for??cervical myelopathy??associated with stenosis at??C3-C4 and C5- C6.?? The patient was scheduled to undergo??posterior decompression by Dr. Puga. ??The patient presented to the emergency department??with worsening numbnessin his left arm and leg??as well as blurry visions and headache.?? The patient noted having a fall yesterday.?? The patient explains he is??numbness and??weakness??have gotten somewhat worse. Review of Systems 10 point review system performed. Physical Exam Vitals & Measurements T:??98.1?F?? HR:??80??(Peripheral)?? RR:??18?? BP:??132/97?? SpO2:??99%?? HT:??166??cm?? WT:??93??kg?? BMI:??33.75?? Alert, awake,??and oriented x3. Proper eye contact with clear speech. Following full commands. Strength: 5/5??right upper and lower extremities 4/5??left upper extremity -4/5 left lower extremity Sensation??diffusely diminished in the left upper extremity. Positive Nicky signs bilaterally 3/4??reflexes in bilateral brachial and 4/4??bilateral bicep No sustained clonus Assessment/Plan This is a 52-year-old??male??who is known to have??cervical myelopathy associated with stenosis at??C3-C4 and??C5-C6??scheduled to undergo??posterior decompression.?? The patient??notes??his??numbness and weakness??are??somewhat worse.?? The patient also had a fall yesterday. ?? Recommendations: -Neuro check??(every 4??hour is okay from our end) -Tappan collar all the time -MRI??without C-spine -Further work-up for headache and blurry vision -Will preop the pt just in case pt declines during this admission: NPO after midnight except for meds (pt may eat now), type and screen, INR/PT ?? Attending: Dr. Samuels Problem List/Past Medical History Ongoing Cauda equina syndrome Chest pain Controlled substance agreement signed 05/29/2023 Depression Diabetes Fatty infiltration of liver GERD (gastroesophageal reflux disease) Health detention, active care coordination [facility] [phone] HTN (hypertension) Hyperlipidemia Illiteracy Lower back pain Lumbar radiculopathy Obese class I Obese class I Obstructive sleep apnea Tubular adenoma of colon Procedure/Surgical History Colonoscopy (poor prep): 07/25/17 Incision and drainage, deep abscess, bursa, or hematoma, thigh or knee region: 05/23/16 Esophagogastroduodenoscopy and biopsy: 05/15/16 Colonoscopy with polypectomy: 05/15/16 Incision and drainage, deep abscess, bursa, or hematoma, thigh or knee region Laminotomy (hemilaminectomy), with decompression of nerve root(s), including partial facetectomy, foraminotomy and/or excision of herniated intervertebral disc; 1 interspace, lumbar Nehal fundoplication Home Medications Albuterol: 2 puffs, Inhalation, 4 times a day, PRN ( NEEDED FOR WHEEZING) Aspirin: 81 mg, By Mouth, Daily Atorvastatin: 40 mg = 1 tablet, By Mouth, Daily Diclofenac Topical: 1 application, Topically, 4 times a day Durable Medical Equipment (walker with wheels): See Instructions, Diagnosis: paresthesia in BLE ??fall risk Fluoxetine: TAKE 3 CAPSULES BY MOUTH EVERY DAY IN THE MORNING Gabapentin: 300 mg = 1 capsule, By Mouth, 2 times a day MethylPREDNISolone: 1 pack/packet, By Mouth, Daily, as directed on package labeling Nitroglycerin: 0.4 mg = 1 tablet, Sublingual, Every 5 minutes, PRN (Chest Pain) Oxycodone: 15 mg = 1 tablet, By Mouth, Every 12 hours, dx: M54.5MassPAT checked; appropriate Oxycodone / Acetaminophen: 1 tablet, By Mouth, Daily at bedtime, mass pat verified Propranolol: 2 tablet, By Mouth, 2 times a day Risperidone: 4 mg = 2 tablet, By Mouth, Daily at bedtime, Rx'd ??by psychiatry Trazodone: TAKE 1/2 TO 1 TABLET BY MOUTH AT BEDTIME Allergies Shrimp lisinopril??(Angioedema) Social History Alcohol Use: Current. Frequency: 1-2 times per year. Electronic Cigarette/Vaping Electronic Cigarette Use: Never. Exercise Self assessment: Good condition. Home/Environment Living situation: Home/Independent. Lives with: Alone. Other: Has 4 daughters, 1 son. Nutrition/Health Diet: Regular. Substance Abuse Use: Never. Tobacco Former smoker, Other: Quit 2014. Family History Mother: Arthritis; Diabetes mellitus; Emphysema Note * Kelli Golden RN: PERFORM Event Display: Discharge/Transfer Note Hospital Authored Date: [id number] Nursing Discharge Note Entered On: 09/10/2023 15:24 EST Performed On: 09/10/2023 15:23 EST by Kelli Golden RN Nursing Discharge Note 2 Discharge Time : 09/10/2023 15:25 EST Discharge Level of Care at Discharge : Homehealth/VNA Discharge VNA/Hospice/Home Care(v001) : [facility] [phone] Patient Left Unit Via : Wheelchair Patient Accompanied Off Unit with : Significant other DC Instructions Provided & Signed by Pt : Yes Patient Understands D/C Instructions : Yes Patient Instructions Discharge Signed : Yes Discharge Comments : Pt discharged to home with services. IV removed. D/C instructions reviewed Did Pt have Specialty Bed or Wound Vac : No [place] GOLDEN, Kelli - 09/10/2023 15:23 EST * Caitlin RAWLS, Parth Ramírez: PERFORM Event Display: Discharge/Transfer Note Hospital Authored Date: [id number] Patient: ??JAMARCUS BARBOSA ? Age:??52 Years?Sex:??Male?:??1970?? Patient Information Discharge Location: [facility] Primary Care Physician: Alonzo Esposito MD Admit Date/Time: 09/06/23 15:01 Discharge Disposition Discharge Disposition: Home with Home Health Discharge Diagnosis Cervical stenosis of spine (M48.02) Depression (F32.A) Dyslipidemia (E78.5) Hypertension (I10) Neck pain (M54.2) Stenosis of intervertebral foramen (M48.00) Type 2 diabetes mellitus (E11.9) GERD (gastroesophageal reflux disease) Hyperlipidemia Lower back pain Obstructive sleep apnea ?? _ Discharge Medications Albuterol (Ventolin HFA 108 mcg/inh inhalation aerosol with adapter)?2?puff(s)?Inhalation?4 times a day?as needed? NEEDED FOR WHEEZING Aspirin (aspirin 81 mg oral delayed release tablet)?81?Milligram?By Mouth?Daily Atorvastatin (atorvastatin 40 mg oral tablet)?1?tab(s)?40?Milligram?By Mouth?Daily?for 30?Days Durable Medical Equipment (walker with wheels)?See Instructions?Diagnosis: paresthesia in BLE??fall risk Fluoxetine (FLUoxetine 20 mg oral capsule)?TAKE 3 CAPSULES BY MOUTH EVERY DAY IN THE MORNING Gabapentin (gabapentin 300 mg oral capsule)?300?Milligram?1?capsule?By Mouth?2 times a day MethylPREDNISolone (Medrol Dosepak 4 mg oral tablet)?1?pack/packet?By Mouth?Daily?for 6?Days?as directed on package labeling Nitroglycerin (nitroglycerin 0.4 mg sublingual tablet)?1?tab(s)?0.4?Milligram?Sublingual?Every 5 minutes?as needed?Chest Pain Oxycodone (OxyCONTIN 15 mg oral tablet, extended release)?1?tab(s)?15?Milligram?By Mouth?Every 12 hours?for 30?Days?dx: M54.5MassPAT checked; appropriate Oxycodone (oxyCODONE 10 mg oral tablet)?1?tab(s)?10?Milligram?By Mouth?Every 6 hours?as needed?Pain , Severe?for 5?Days Propranolol (propranolol 20 mg oral tablet)?2?tablet?By Mouth?2 times a day Risperidone (risperiDONE 2 mg oral tablet)?4?Milligram?2?tablet?By Mouth?Daily atbedtime?Rx'd ??by psychiatry Trazodone (traZODone 100 mg oral tablet)?TAKE 1/2 TO 1 TABLET BY MOUTH AT BEDTIME ? Medications Started Oxycodone (oxyCODONE 10 mg oral tablet)?1?tab(s)?10?Milligram?By Mouth?Every 6 hours?as needed?Pain , Severe?for 5?Days Medications Discontinued Percocet Allergies Allergies ?(Active and Proposed Allergies Only) Shrimp? (Severity: Unknown severity, Onset: Unknown) lisinopril? (Severity: Unknown severity, Onset: Unknown) ?Reactions: Angioedema ? Future Appointments Sunday 2:00 PM EST ?? With: Alonzo Esposito MD Where: [facility] [address] [place] [address]- Status: Pending 2022 7:30 AM EST ?? With: Grisel Steinberg NP Where: [facility] [address] [place] [address]- Status: Pending Sunday 7:30 AM EST ?? Where: [facility] Status: Pending Sunday 1:45 PM EST ?? With: Clint Puga MD Where: [facility] [address] [place] [address] Drive [address] [place] [address]- Status: Pending Sunday 9:00 AM EST ?? With: Alonzo Esposito MD Where: [address] [address]- Status: Pending Hospital Course 52-year-old man with known cervical myelopathy with stenosis of C3-C4 and C5-C6 who sustained a mechanical fall 3 days prior to presentation was evaluated in the ED for complaints of worsening pain and numbness over the left side of his body. Was admitted for monitoring and evaluation by neurosurgery. ?? He was hemodynamically stable on admission. Lab work showed no abnormality. Was seen by neurosurgery in the ED who recommended initiating placing an Tappan collar and monitoring for worsening symptomsto see whether patient needed urgent surgery. He was already planned for routine surgery on 09/19. An MRI was obtained which showed no acute changes warranting urgent surgery with no significant interval changes compared to the prior study. A physical therapy evaluation was obtained and it was recommended that patient have home services arranged. He will be prescribed additional oxycodone for breakthrough pain on top of the OxyContin and the gabapentin that he uses at home. Neurosurgery recommends patient be discharged and follow-up on 09/19 for routine surgery. He may wear the [place]app[place] collar forcomfort. ?? Objective Measurements?? Height: 166 cm (09/09/23) Weight: 93 kg (09/06/23) Dry Weight: 93 kg (09/06/23) Body Mass Index:??33.75 kg/m2??Critical (09/06/23) ? Vital Signs?? Temperature: 97.4 DegF (09/10/23 11:00:00) Temperature Route: Oral (09/10/23 11:00:00) Pulse Rate: 81 bpm (09/10/23 11:00:00) Respiratory Rate: 18 br/min (09/10/23 11:40:00) Systolic Blood Pressure: 99 mm Hg (09/10/23 11:00:00) Diastolic Blood Pressure: 72 mm Hg (09/10/23 11:00:00) Blood pressure sites: Arm, left (09/10/23 11:00:00) Pulse Pressure: 27 mm Hg (09/10/23 11:00:00) Oxygen Saturation: 94 % (09/10/23 11:00:00) Mode of Delivery (Oxygen): Room air (09/10/23 11:00:00) Early Warning Score: 5 (09/10/23 11:56:44) Early Warning Score: 5 (09/10/23 11:56:44) ? . Physical Exam Constitutional: Alert, in no acute distress. Head: Normocephalic. ?? Eyes: Pupils are equal, round and reactive to light. Extraocular muscles intact. No pallor or scleral icterus ?? Ear, Nose and Throat: mucous membranes moist. Ears and nose - no obvious deformities. Trachea midline. ?? Neck: ??Tappan collar in place Respiratory:??Clear to auscultation. No wheezing or rhonchi.??No use of accessory muscles. No tactile fremitus.?? Cardiovascular:??PMI not visible. S1 S2 regular. No murmurs, rubs or gallops. Gastrointestinal:??Abdomen soft, non-tender, non-distended. Normal bowel sounds. No pulsatile mass.No hepatosplenomegaly. Genitourinary:??No costovertebral angle tenderness. Extremities: No lower extremity pitting edema. No cyanosis or clubbing. Neurologic:??AAOx3, face is symmetric, speech is normal.?? Right upper and lower extremity strength5 out of 5,??sensation to??light touch intact.?? Left- sided??upper and lower extremity strength 4 out of 5,??diminished sensation to light touch. Pending Results No Pending Results Follow-Up Appointments Added Follow Up ?Time Frame ?Comments Vaibhav RAWLS, Alonzo Post Discharge Care Diet: ??Regular Diet ?? Activity: ??Ambulate with assistance 3 times a day unless otherwise specified ?? Code Status: ??Full Resuscitation ?? Discharge ?09/10/23 14:33:00 EST Home Health Face to Face *Denotes mandatory garcia ?? *I certify that this patient is under my care and that I or an allowed non- physician working with me had a face to face encounter with the patient on this date:??09/10/2023 14:37 ?? 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 *Select the indications for the discipline/s that are being arranged for this patient. Nursing (select all that apply): [_] None [_] Medication management (reconciliation, teaching)?? [_] Chronic disease management?? [_] Wound care and treatment?? [_] Home safety evaluation [_] Administer SQ/IM/IV medications?? [_] Cath care?? [_] Drain care?? [_] Trach or GT care?? Other _ Occupation Therapy (select all that apply): [_] None [x] ADL Management [x] Fall prevention training [_] Energy conservation [_] Cognitive training Other _ Physical Therapy (select all that apply): [_] None [x] Functional mobility training [x] Home exercise program to strengthen [x] Increase ROM?? [x] Falls prevention training [x] Home maintenance program for chronic disease Other _ Speech Therapy (select all that apply): [_] None [_] Swallow evaluation and training [_] Speech and language training [_] Cognitive training to process, organize, and/or recall information Other _ ? *Homebound due to (select all that apply): [x] Inability to leave home without assistance/supervision [_] Inability to ambulate without assistance [x] Pain [_] Decreased strength and endurance [x] Unsteady gait [_] Severe SOB and fatigue [_] Impaired transfers [_] Inability to negotiate stairs [_] Limited weight bearing [_] Mental status change? *Physician Signature: _Caitlin RAWLS [facility] ?? *By signing this, I certify that I have personally evaluated the patient and agree with the findings and recommendations as documented above. ? Results Discharge Labs BLOOD BANK Blood Type O Positive ()?? 09/06/2023 16:17 Antibody Screen Negative ()?? 09/06/2023 16:17 ?? BLOOD COUNT & DIFF WBC 11.5 k/mm3 (High)?? 09/08/2023 01:32 RBC 5.32 m/mm3 ()?? 09/08/2023 01:32 Hgb 14.8 Gm/dL ()?? 09/08/2023 01:32 Hct 46.9 % ()?? 09/08/2023 01:32 MCV 88.2 femtoliters ()?? 09/08/2023 01:32 MCH 27.8 pg ()?? 09/08/2023 01:32 MCHC 31.6 g/dL (Low)?? 09/08/2023 01:32 Platelet Count 278 k/mm3 ()?? 09/08/2023 01:32 RDW-SD 46.5 femtoliters ()?? 09/08/2023 01:32 MPV 10.6 femtoliters ()?? 09/08/2023 01:32 Nucleated RBC (Automated) 0.0 #/100 WBC'S ()?? 09/08/2023 01:32 Abs. NRBC 0.0 k/mm3 ()?? 09/08/2023 01:32 Abs. Neut 7.5 k/mm3 (High)?? 09/08/2023 01:32 Abs. Lymph 3.0 k/mm3 ()?? 09/08/2023 01:32 Abs. [place] 0.7 k/mm3 ()?? 09/08/2023 01:32 Abs. Eo 0.2 k/mm3 ()?? 09/08/2023 01:32 Abs. Baso 0.1 k/mm3 ()?? 09/08/2023 01:32 Neut % 65.2 % ()?? 09/08/2023 01:32 Lymph % 25.7 % ()?? 09/08/2023 01:32 [place] % 5.9 % ()?? 09/08/2023 01:32 Eos % 2.1 % ()?? 09/08/2023 01:32 Baso % 0.4 % ()?? 09/08/2023 01:32 Imm Gran 0.7 % ()?? 09/08/2023 01:32 Abs. Imm Gran 0.1 k/mm3 ()?? 09/08/2023 01:32 ?? CARDIAC Nt-Probnp <36 pg/mL ()?? 09/06/2023 09:29 High Sensitivity Troponin (HSTnT) <6 ng/L ()?? 09/06/2023 09:29 ?? CHEM GENERAL Sodium 134 mmol/L ()?? 09/08/2023 01:32 Potassium 4.3 mmol/L ()?? 09/08/2023 01:32 Chloride 96 mmol/L (Low)?? 09/08/2023 01:32 Bicarbonate Level 28 mmol/L ()?? 09/08/2023 01:32 Anion Gap 10 ()?? 09/08/2023 01:32 Glucose Level 116 mg/dL (High)?? 09/08/2023 01:32 Glucose, POC 83 mg/dL ()?? 09/10/2023 11:30 BUN 24 mg/dL (High)?? 09/08/2023 01:32 Creatinine-Blood 1.1 mg/dL ()?? 09/08/2023 01:32 Estimated GFR Creatinine 80 ML/MIN/1.73 M2 ()?? 09/08/2023 01:32 Calcium 9.2 mg/dL ()?? 09/08/2023 01:32 Phosphorus 4.1 mg/dL ()?? 09/08/2023 01:32 Protein, Total 7.8 Gm/dL ()?? 09/06/2023 09:29 Albumin 4.7 Gm/dL ()?? 09/06/2023 09:29 AG Ratio 1.5 ()?? 09/06/2023 09:29 Alkaline Phosphatase 152 units/L (High)?? 09/06/2023 09:29 AST (SGOT) 16 units/L ()?? 09/06/2023 09:29 ALT (SGPT) 16 units/L ()?? 09/06/2023 09:29 Bilirubin, Total 0.3 mg/dL ()?? 09/06/2023 09:29 ? COAG INR 1.0 ()?? 09/06/2023 16:35 Protime (PT) 10.9 seconds ()?? 09/06/2023 16:35 ?? HEME OTHER Hold Blue Top SPECIMEN DISCARDED AFTER 4 HOURS. ()?? 09/06/2023 09:29 ? MISC. CHEMISTRY Hold Gel Top SPECIMEN DISCARDED AFTER 1 WEEK ()?? 09/08/2023 01:32 ? UA/URINALYSIS Appear/Color, Urine LIGHT YELLOW ()?? 09/06/2023 10:50 Specific [place], Urine 1.025 ()?? 09/06/2023 10:50 pH, Urine 6.0 ()?? 09/06/2023 10:50 Albumin, Urine TRACE (Abnormal)?? 09/06/2023 10:50 Glucose, Urine NEGATIVE ()?? 09/06/2023 10:50 Ketones, Urine NEGATIVE ()?? 09/06/2023 10:50 Bilirubin, Urine NEGATIVE ()?? 09/06/2023 10:50 Hemoglobin, Urine 2+ (Abnormal)?? 09/06/2023 10:50 Nitrite, Urine NEGATIVE ()?? 09/06/2023 10:50 Leukocyte, Urine NEGATIVE ()?? 09/06/2023 10:50 Urobilinogen NORMAL mg/dL ()?? 09/06/2023 10:50 WBC's, Urine 1 /HPF ()?? 09/06/2023 10:50 RBC's, Urine 1 /HPF ()?? 09/06/2023 10:50 Squamous Epith 2 /HPF ()?? 09/06/2023 10:50 Mucus SLIGHT /LPF ()?? 09/06/2023 10:50 ? URINE OTHER Est Creatinine Clearance 70.03 mL/min ()?? 09/08/2023 02:30 ? VIROLOGY Influenza A PCR NEGATIVE ()?? 09/06/2023 09:32 Influenza B PCR NEGATIVE ()?? 09/06/2023 09:32 RSV PCR NEGATIVE ()?? 09/06/2023 09:32 COVID-19 PCR Specimen Source NASAL ()?? 09/06/2023 09:32 COVID-19 PCR Result NEGATIVE ()?? 09/06/2023 09:32 ? 37??minutes spent on discharge * Kelli Golden RN: PERFORM Event Display: Patient Education/Instruction Authored Date: [id number] Inpatient Adult Discharge Instructions [place] [id number] Name: JAMARCUS BARBOSA : 1970 Visit: 09/06/2023 15:01:00 Current Date: 09/10/2023 15:05 Account: [id number] Inpatient Adult Discharge Instructions We would like to thank you for allowing us to assist you with your healthcare needs. The following includes patient education materials and information regarding your injury/illness. Our entire staffstrives to provide an excellent experience for our patients and their families. PLEASE ENSURE YOU FOLLOW-UP PER THE INSTRUCTIONS BELOW! ?? YOUR OPINION IS IMPORTANT TO US! Please complete the survey you may receive by mail or email. Your feedback will be used to make improvements to the healthcare experiences of our patients and their families. Surveys are administered by [employer] ?? If further treatment with your primary care physician or another doctor is recommended, it is important for you to keep the appointment. Call your primary care physician or return to the Emergency Department immediately if your condition worsens, fails to improve, or new symptoms develop. If you need to find a doctor, you can call [facility] for a referral at [phone] or toll free at [phone] HybridsNCYIDA ([phone]) or log in to [email or web address] Employee Scheduling Software.. ?? [facility], in keeping with [facility] guidance, no longer requires face masks for staff, patientsor visitors in most situations. Similiar to time spent indoors at other locations, there is the chance that you were exposed to repiratory viruses during your time with us (such as flu or COVID-19). If you develop symptoms concerning for a viral respiratory infection, please seek testing (and treatment if indicated) from your medical provider or home test kit. ?? You can view and manage your care through the patient portal or by using a health care lenore of your choosing. [employer] is a website that allows you to securely view your medical information including your hospital discharge summary, office visit summaries, medications and follow-up visits. You can also request appointments, renew medications, and request access to your medical information using a health care lenore of your choosing, or just ask a question. You can enroll at [email or web address] or register during your next office visit. You have been discharged from [facility], Patient Care Unit: SW6. If you have any questions regarding these instructions after you leave, please call us and we will be happy to assist you. [facility] Your Care Team Attending Physician Parth Tucker MD Discharging Providers Caitlin RAWLS, Parth Ramírez Reason for Admission Cervical myelopathy. ??Recent fall with worsening pain and numbness on the left side. Your Diagnosis Cervical stenosis of spine Neck pain Stenosis of intervertebral foramen Dyslipidemia Hypertension Depression Type 2 diabetes mellitus Tests Performed Below is a partial list of the tests performed during your hospitalization. You may have had other tests and procedures not included in this list. Please discuss all test results with your provider. BNP BUN Calcium Level CBC w/ Differential Comprehensive Metabolic Panel COVID-19, RSV, and Flu A/B, Rapid PCR Creatinine Electrolytes Glucose Level GLUCOSE POC High??Sensitivity??Troponin T Hold Blue Top Tube HOLD GEL TUBE Phosphorus Level PT (INR) Type and Screen UA CT Cervical Spine W/O Contrast CT Head/Brain W/O Contrast MRI Cervical Spine W/O Contrast Primary Care Provider Alonzo Esposito MD Advance Directive Health Care Proxy on File Yes - Health Care Proxy Discharge Vitals Temperature: 97.4 DegF Height: 166 cm Pulse Rate: 81 bpm Weight: 93 kg Respiratory Rate: 18 br/min Body Mass Index:??33.75 kg/m2??Critical Systolic Blood Pressure: 99 mm Hg Body surface area: 2.07 Diastolic Blood Pressure: 72 mm Hg ?? Oxygen Saturation: 94 % ?? Studies Pending All tests and labs ordered during this hospital stay have been completed unless listed below. Please discuss all pending results with your provider listed above in these instructions. ?? No incomplete studies found What to do next Instructions From Your Doctor Discharge Orders Diet:??Regular Diet Activity:??Ambulate with assistance 3 times a day unless otherwise specified Code Status:?? Full Resuscitation Scheduled Follow-Up Appointments Sunday 2:00 PM EST ?? With: Alonzo Esposito MD Where: [facility] [address] [place] [address]- Status: Pending 2022 7:30 AM EST ?? With: Idris MAYBERRY, Grisel Where: [facility] [address] [place] [address]- Status: Pending Sunday 7:30 AM EST ?? Where: [facility] Status: Pending Sunday 1:45 PM EST ?? With: Clint Puga MD Where: [facility] [address] [place] [address]- Status: Pending Sunday 9:00 AM EST ?? With: Alonzo Esposito MD Where: [facility] [address] [place] [address]- Status: Pending You Need to Schedule the Following Appointments Follow Up with??Alonzo Esposito MD Where: ?? Discharge Medications JAMARCUS BARBOSA :1970 Visit Date:09/06/2023 Medications: Please continue your medications until treatment is completed or stopped by your provider. Medications not listed below should be discontinued. Discuss any questions related to medications with your provider. What How Much When Instructions Next Dose Changed Oxycodone (oxyCODONE 10 mg oral tablet) 1 tab(s) Oral Every 6 hours as needed for Pain , Severe Duration: 5 Days Pickup at [facility]/pharmacy #[id number] as needed Changed Oxycodone (OxyCONTIN 15 mg oral tablet, extended release) 1 tab(s) Oral Every 12 hours Duration: 30 Days dx: M54.5 MassPAT checked; appropriate ?? 9 pm 09/10 Unchanged Albuterol (Ventolin HFA 108 mcg/ inh inhalation aerosol with adapter) 2 puff(s) Inhalation 4 times a day as needed for NEEDED FOR WHEEZING Unchanged Aspirin (aspirin 81 mg oral delayed release tablet) 81 Milligram Oral Daily 09/11 9 am Unchanged Atorvastatin (atorvastatin 40 mg oral tablet) 1 tab(s) Oral Daily Duration: 30 Days 09/11 9 am Unchanged Durable Medical Equipment (walker with wheels) See instructions Diagnosis: paresthesia in BLE fall risk ?? Unchanged Fluoxetine (FLUoxetine 20 mg oral capsule) TAKE 3 CAPSULES BY MOUTH EVERY DAY IN THE MORNING ?? 09/11 9 am Unchanged Gabapentin (gabapentin 300 mg oral capsule) 1 capsule Oral Twice a day 09/11 9 pm Unchanged MethylPREDNISolone (Medrol Dosepak 4 mg oral tablet) 1 pack/packet Oral Daily Duration: 6 Days as directed on package labeling ?? Unchanged Nitroglycerin (nitroglycerin 0.4 mg sublingual tablet) 1 tab(s) Sublingual Every 5 minutes as needed for Chest Pain Unchanged Propranolol (propranolol 20 mg oral tablet) 2 tab(s) Oral Twice a day Unchanged Risperidone (risperiDONE 2 mg oral tablet) 2 tab(s) Oral Daily at Bedtime Rx'd ??by psychiatry ?? Unchanged Trazodone (traZODone 100 mg oral tablet) TAKE 1/ 2 TO 1 TABLET BY MOUTH AT BEDTIME ?? Pharmacy Information [facility]/pharmacy #[id number]: [address] [place] [address] [phone] ?? What How Much When Comments Stop Taking Diclofenac Topical (diclofenac 1% topical gel) 1 lenore Topically 4 times a day Stop Taking Oxycodone / Acetaminophen (acetaminophen-oxycodone 325 mg-10 mg oral tablet) 1 tab(s) Oral Daily at Bedtime Duration: 30 Days mass pat verified ?? Test Results Below is a partial list of the most recent Laboratory test results done prior to this discharge. You may have had other tests and procedures not included in this list. Please discuss all test resultswith your provider. Est Creatinine Clearance - 70.03 mL/min (09/08/2023) BNP (09/06/2023) ? ?Nt-Probnp - <36 pg/mL BUN (09/08/2023) ???BUN - 24 mg/dL Calcium Level (09/08/2023) ???Calcium - 9.2 mg/dL CBC w/ Differential (09/08/2023) ???WBC - 11.5 k/mm3???RBC - 5.32 m/mm3???Hgb - 14.8 Gm/dL???Hct - 46.9 %???MCV - 88.2 femtoliters???MCH - 27.8 pg???MCHC - 31.6 g/dL???Platelet Count - 278 k/mm3???RDW-SD - 46.5 femtoliters???MPV - 10.6 femtoliters???Nucleated RBC (Automated) - 0.0 #/100 WBC'S???Abs. NRBC - 0.0 k/mm3???Abs. Neut - 7.5 k/mm3???Abs. Lymph - 3.0 k/mm3???Abs. [place] - 0.7 k/mm3???Abs. Eo - 0.2 k/mm3???Abs. Baso - 0.1 k/mm3???Neut % - 65.2 %???Lymph % - 25.7 %???Hutchinson % - 5.9 %???Eos % - 2.1 %???Baso % - 0.4 %???Imm Gran - 0.7 %???Abs. Imm Gran - 0.1 k/mm3 Comprehensive Metabolic Panel (09/06/2023) ???Sodium - 139 mmol/L???Potassium - 4.7 mmol/L???Chloride - 100 mmol/L???Bicarbonate Level - 27 mmol/L???Anion Gap - 12???Glucose Level - 98 mg/dL???BUN - 17 mg/dL???Creatinine-Blood - 0.9 mg/dL???Estimated GFR Creatinine - 101 ML/MIN/1.73 M2???Calcium - 9.5 mg/dL???Protein, Total - 7.8 Gm/dL???Alb umin - 4.7 Gm/dL???AG Ratio - 1.5???Alkaline Phosphatase - 152 units/L???AST (SGOT) - 16 units/L???ALT (SGPT) - 16 units/L???Bilirubin, Total - 0.3 mg/dL COVID-19, RSV, and Flu A/B, Rapid PCR (09/06/2023) ???Influenza A PCR - NEGATIVE???Influenza B PCR - NEGATIVE???RSV PCR - NEGATIVE???COVID-19 PCR Specimen Source - NASAL???COVID-19 PCR Result - NEGATIVE Creatinine (09/08/2023) ???Creatinine-Blood - 1.1 mg/dL???Estimated GFR Creatinine - 80 ML/MIN/1.73 M2 Electrolytes (09/08/2023) ???Sodium - 134 mmol/L???Potassium - 4.3 mmol/L???Chloride - 96 mmol/L???Bicarbonate Level - 28 mmol/L???Anion Gap - 10 Glucose Level (09/08/2023) ???Glucose Level - 116 mg/dL GLUCOSE POC (09/10/2023) ???Glucose, POC - 83 mg/dL High??Sensitivity??Troponin T (09/06/2023) ? ?High Sensitivity Troponin (HSTnT) - <6 ng/L Hold Blue Top Tube (09/06/2023) ???Hold Blue Top - SPECIMEN DISCARDED AFTER 4 HOURS. HOLD GEL TUBE (09/08/2023) ???Hold Gel Top - SPECIMEN DISCARDED AFTER 1 WEEK Phosphorus Level (09/08/2023) ???Phosphorus - 4.1 mg/dL PT (INR) (09/06/2023) ???INR - 1.0???Protime (PT) - 10.9 seconds Type and Screen (09/06/2023) ???Blood Type - O Positive???Antibody Screen - Negative UA (09/06/2023) ???Appear/Color, Urine - LIGHT YELLOW???Specific [place], Urine - 1.025???pH, Urine - 6.0???Albumin, Urine - TRACE???Glucose, Urine - NEGATIVE???Ketones, Urine - NEGATIVE???Bilirubin, Urine - NEGATIVE???Hemoglobin, Urine - 2+???Nitrite, Urine - NEGATIVE???Leukocyte, Urine - NEGATIVE???Urobilinogen - NORMAL???WBC's, Urine - 1 /HPF???RBC's, Urine - 1 /HPF???Squamous Epith - 2 /HPF???Mucus - SLIGHT Allergies (NKA means No Known Allergies) Shrimp lisinopril??(Angioedema) Problems Active Problems??(17) Cauda equina syndrome?? Chest pain?? Controlled substance agreement signed 05/29/2023?? Depression?? Diabetes?? Fatty infiltration of liver?? GERD (gastroesophageal reflux disease)?? Health detention, active care coordination [facility] [phone]?? HTN (hypertension)?? Hyperlipidemia?? Illiteracy?? Lower back pain?? Lumbar radiculopathy?? Obese class I?? Obstructive sleep apnea?? Psychotic disorder?? Tubular adenoma of colon?? Education Materials Below is the list of Educational Leaflet Providered with your Discharge Instructions. Valuables and Belongings I fully understand and agree that [facility] accepts no responsibility for all my personal property including clothing, toilet articles, radios, jewelry, dentures, hearing aids, rings, money, or any other property that is in my possession or is brought to me after admission. I understand certain valuables may be placed in a hospital safe for a short period of time. I understand that the hospital is not liable for loss or damage due to accident, fire, or other natural occurrence while said property is in the safe. I accept full responsibility for any personal property that I keep with me, and will not hold the hospital responsible in case of loss or disappearance. I acknowledge that i have been encouraged to send valuables and belongings home. ?? Review of Valuable and Belonging List: With patient Date for Pt to Sign Valuables/Belongings: 09/06/23 16:15:00 ?? Other Discharge Information ? Case Management Discharge Plan?? Discharge Plan?? Discharge Agency Information?? Discharge Level of Care at Discharge: Homehealth/VNA Name of Agency #1: [facility] [phone] Discharge VNA/Hospice/Home Care: [facility] [phone] Agency Mess Attendant #1: Intake ?? Service Categories #1: Physical Therapy ?? Service Comments #1: [facility] will contact you to restart your VNA services. ??Please call their office with any questions. ?? Pulmonary Rehab Status?? Pulmonary Rehab Discharge Status?? Respiratory Rate: 18 br/min ? Common Emergency Awareness Tips IS IT A STROKE? Act FAST and Check for these signs: FACE Does the face look uneven? ARM Does one arm drift down? SPEECH Does their speech sound strange? TIME Call at any sign of stroke ?? Heart Attack Signs Chest discomfort: Most heart attacks involve discomfort in the center of the chest and lasts more than a few minutes, or goes away and comes back. It can feel like uncomfortable pressure, squeezing, fullness or pain. Discomfort in upper body: Symptoms can include pain or discomfort in one or both arms, back, neck, jaw or stomach. Shortness of breath: With or without discomfort. Other signs: Breaking out in a cold sweat, nausea, or lightheaded. Remember, MINUTES DO MATTER. If you experience any of these heart attack warning signs, call to get immediate medical attention! ?? Smoking can increase your chances of developing chronic health problems and can cause harmful effects to other family members in your house. If you smoke, you are strongly encouraged to quit. Please call [facility] at [phone] or [phone]-[employer] ([phone]) or log in to [email or web address] for referrals to smoking cessation programs. ?? 685 Suicide & Crisis Lifeline is available 07/05 if you or someone you know needs to find a reason to keep living. By calling 966 you'll be connected to a skilled, trained counselor at a crisis center in your area. INPATIENT DISCHARGE INSTRUCTIONS SIGNATURE PAGE JAMARCUS BARBOSA Location:[facility] Registration Date and Time:09/06/2023 15:01 EST Primary Care Physician: Alonzo Esposito MD, Attending Physician: Caitlin RAWLS, Parth Ramírez, I JAMARCUS BARBOSA, have received the above patient education materials/instructions and have verbalized understanding. If ambulance or transport services are being used I further acknowledge being given a choice of service. ?? If you need to contact me, please call me at this number: . Patient/Organ Tuner Electronic Name: Patient/Organ Tuner Electronic Signature: Relationship to Patient: Witness Name/Signature: Date: Patient Care team information Care Team Personnel Name: Elvia Collins RN Position: [facility] RN Member Role: Primary Care Nurse Name: Macarena Lewis RN Position: [facility] RN Member Role: Primary Care Nurse Name: Mallory Lugo RN Position: [facility] RN Member Role: Primary Care Nurse Name: Carmen Gao RN Position: [facility] ED RN W/OE and Tasks Member Role: Primary Care Nurse Name: Dacia Evangelista RN Position: [facility] RN Member Role: Primary Care Nurse Name: Tracey Linares RN Position: [facility] AMB Nurse Member Role: Primary Care Nurse Name: Italia Ortega RN Position: [facility] RN Member Role: Primary Care Nurse Name: Catalina He RN Position: [facility] AMB Nurse Member Role: Primary Care Nurse Name: Jessica Lantigua RN Position: [facility] SN RN Member Role: Primary Care Nurse Name: Catalina Pack RN Position: [facility] SN RN Member Role: Primary Care Nurse Name: Clifford Gerber RN Position: [facility] RN Member Role: Primary Care Nurse Name: Doris Butler RN Position: [facility] RN Member Role: Primary Care Nurse Name: Aziza Poole RN Position: [facility] RN Member Role: Primary Care Nurse Name: Monet Miller RN Position: [facility] RN Member Role: Primary Care Nurse Name: Katheryn Wu RN Position: [facility] RN Member Role: Primary Care Nurse Name: Doris Dee RN Position: [facility] RN Member Role: Primary Care Nurse Name: Janae Soto RN Position: [facility] RN Member Role: Primary Care Nurse Name: Daphney Echols LPN Position: [facility] RN Member Role: Primary Care Nurse Name: Nini Odonnell RN Position: [facility] RN Member Role: Primary Care Nurse Name: Jennifer Thakkar RN Position: [facility] RN Member Role: Primary Care Nurse Name: Hyun Ochoa RN Position: [facility] RN Member Role: Primary Care Nurse Name: Yazmin Lay RN Position: [facility] RN Member Role: Primary Care Nurse Name: Nancy Magana RN Position: [facility] RN Member Role: Primary Care Nurse Name: Ranjana Zavala RN Position: [facility] RN Member Role: Primary Care Nurse Name: Melvi Carter RN Position: [facility] OB RN Member Role: Primary Care Nurse Name: Jackson Rosen RN Position: [facility] RN Member Role: Primary Care Nurse Name: Clarissa Rodriguez RN Position: [facility] RN Supv Member Role: Primary Care Nurse Name: Ophelia Marie RN Position: [facility] RN Member Role: Primary Care Nurse Name: Nolvia Mendes RN Position: [facility] RN Member Role: Primary Care Nurse Name: Adi Rees RN Position: [facility] RN Member Role: Primary Care Nurse Name: Alonzo Esposito MD Position: [facility] Physician - Primary Care Member Role: PCP Address: Address: [address] [place] [address]- [place] Name: Doroteo Morrow RN Position: [facility] RN Member Role: Primary Care Nurse Address: Address: [address] [place] [address]- [place] Name: Cassidy Masters RN Position: [facility] RN Member Role: Primary Care Nurse Name: Juancarlos Valente RN Position: [facility] Hospital Candlemaking Laborer Member Role: Primary Care Nurse Name: Tran Wiseman RN Position: [facility] RN Member Role: Primary Care Nurse Name: [facility] Attending Position: [facility] ED Medicine MD Name: Anup Wolf Position: [facility] ED TA [facility] Member Role: Instructional Systems Design Consultant Name: Norah Erickson RN Position: [facility] ED RN W/OE and Tasks Member Role: Patient Care Provider Name: Jimmy Winter DO Position: [facility] Resident Member Role: ED Resident Address: Address: [address] [place] [address] [place] [address]- [place] Care Team Related Persons Name: SYLVIA BARBOSA Address: home [address] [place] [address] Name: GAGE HUNT Address: [address] [place] [address] Name: JOCELYN HUNT Address: home [address] [place] [address]
--- OUTSIDE RECORDS SUMMARY | 2024-05-24 04:32 | XMS_ITS | Continuity of Care Document ---
Author Organization [facility] Address [address] [place] [address]- Care Team Providers Care Animal Damage Control Agent Name Role Phone Dawna Hernandez MD Primary Care Physician Encounter [facility] Date(s): 01/15/23 - 03/07/[address] [address]- Encounter Diagnosis Low back pain, unspecified(Final) - Discharge Disposition: A-D/C Home Attending Physician: Dawna Hernandez MD Admitting Physician: Dawna Hernandez MD Referring Physician: Dawna Hernandez MD Allergies, Adverse Reactions, Alerts Substance Reaction Severity Status lisinopril Angioedema Active Shrimp Active Immunizations Given and Recorded Vaccine Date Status Refusal Reason [id number] 12y+ bivalent booster vax 11/03/22 Given influenza virus vaccine, inactivated 11/03/22 Give n influenza virus vaccine, inactivated 02/15/22 Give n influenza virus vaccine, inactivated 09/01/20 Give n influenza virus vaccine, inactivated 09/15/19 Give n influenza virus vaccine, inactivated 11/19/18 Give n influenza virus vaccine, inactivated 09/10/17 Give n influenza virus vaccine, inactivated 12/06/15 Give n SARS-CoV-2 mRNA ([id number]) vax 01/26/22 Given SARS-CoV-2 mRNA (adarnal-rsuz-gumbk) vax 12/28/21 Given tetanus/diphtheria/pertussis, acel(Tdap) 03/29/19 Given [...] Refills, Maintenance, 03/01/23 12:46:00 EDT, [id number], 166, cm, 01/18/23 15:56:00 EDT, Height, 91, [...] tablet, 1 Refills, Maintenance, 02/22/23 8:17:00 EDT, [facility]/pharmacy #[id number], 166, cm, 01/18/23 15:56:00 EDT, Height, 91, kg, 01/18/23 15:56:00 EDT, Dry Weight Start Date: 02/22/23 Status: Ordered Colace sodium 100 mg oral capsule 100 mg, 1, capsule, By Mouth, 2 times a day, PRN, # 20 capsule, Refills 0, Tot. Refills 0, Maintenance, for constipation, 09/22/22 9:53:00 EST, [facility] tablet, 11 Refills, Maintenance, 06/15/22 17:40:00EDT, Tablet, [facility]/pharmacy #[id number], Partial fill upon patient request if the prescription is for a schedule II opioid drug., 165, cm, 06/15/22 14:29:00 ED... Start Date: 06/15/22 Status: Ordered ibuprofen 600 mg oral tablet 600 mg, 1, tablet, By Mouth, 3 times a day, # 90 tablet, Refills 0, Tot. Refills 0, Maintenance, 09/06/22 21:10:00 EST, Route to Pharmacy Electronically, [facility]/pharmacy #[id number], Partial fill upon patientrequest if [...] patch, 0 Refills, Maintenance, 07/20/22 15:26:00 EDT, [facility]30, 10, APPLY 1 PATCH DAILY NEEDED FOR MODERATE PAIN..REMOVE AFTER 12... Start Date: 07/20/22 Status: Ordered nitroglycerin 0.4 mg sublingual tablet 1 tablet = 0.4 mg, Sublingual, Every 5 minutes, PRN Chest Pain, # 100 tablet, 0 Refills, Maintenance, 11/06/22 13:52:00 EST, Tablet, [facility]/pharmacy #[id number], Partial fill upon patient request if the prescription is for a schedule II opioid drug., 175, cm,... Start Date: 11/06/22 Status: Ordered omeprazole 20 mg oral enteric coated capsule 1 capsule, By Mouth, Daily, # 30 capsule, 5 Refills, Maintenance, 03/03/23 15:23:00 EDT, [id number], 166, cm, 01/18/23 15:56:00 EDT, Height, 91, kg, 01/18/23 15:56:00 EDT, Dry Weight Start Date: 03/03/23 Status: Ordered OxyCONTIN 15 mg oral tablet, extended release 1 tablet = 15 mg, By Mouth, Every 12 hours, MassPAT checked dx: M54.5 on agreement, # 60 tablet, 0 Refills, Maintenance, 02/22/23 8:17:00 EDT, ER Tablet, [facility]/pharmacy #[id number], Partial fill upon patientrequest if the prescription is for a schedule II... Start Date: 02/22/23 Status: Ordered PAP Supplies - Mask, Tubing, [...] tablet, Refills 5, Route to Pharmacy Electronically, [id number], 166, cm, 12/28/21 10:33:00 EDT, Height, 91.9, [...] EST, Supply Start Date: 12/12/22 Status: Ordered Track Leader Track Leader, See Instructions, # 1 each, Refills 0, [...] Active Obstructive sleep apnea Confirmed Active Health correction, active care coordination [facility] [phone] Confirmed Active Fatty infiltration of liver Confirmed Active Tubular adenoma of colon Confirmed Active 1history of this with surgical correction Social History Social History Type Response Smoking Status Former smoker; Other : Quit 2014; entered on: 09/10/17 Sex Patient Care team information Care Team Personnel Name: Macarena Lewis RN Position: [facility] RN Member Role: Primary Care Nurse Name: Mallory Lugo RN Position: [facility] RN Member Role: Primary Care Nurse Name: Carmen Gao RN Position: S RN Member Role: Primary Care Nurse Name: Dacia Evangelista RN Position: [facility] RN Member Role: Primary Care Nurse Name: Tracey Linares RN Position: [facility] PCO RN Member Role: Primary Care Nurse Name: Italia Ortega RN Position: [facility] RN Member Role: Primary Care Nurse Name: Catalina He RN Position: [facility] AMB Nurse Member Role: Primary Care Nurse Name: Cortez Golden RN Position: [facility] RN Member Role: Primary Care Nurse Name: Jessica Lantigua RN Position: [facility] SN RN Member Role: Primary Care Nurse Name: Catalina Pack RN Position: [facility] SN RN Member Role: Primary Care Nurse Name: Clifford Gerber RN Position: [facility] RN Member Role: Primary Care Nurse Name: Peter Monahan RN Position: [facility] RN Member Role: Primary Care Nurse Name: Aziza Poole RN Position: [facility] RN Member Role: Primary Care Nurse Name: Katheryn Wu RN Position: [facility] RN Member Role: Primary Care Nurse Name: Doris Dee RN Position: [facility] RN Member Role: Primary Care Nurse Name: Janae Soto RN Position: [facility] RN Member Role: Primary Care Nurse Name: Hyun Ochoa RN Position: [facility] RN Member Role: Primary Care Nurse Name: Nancy Magana RN Position: [facility] RN Member Role: Primary Care Nurse Name: Ranjana Zavala RN Position: [facility] RN Member Role: Primary Care Nurse Name: Melvi Carter RN Position: [facility] OB RN Member Role: Primary Care Nurse Name: Jackson Rosen RN Position: [facility] RN Member Role: Primary Care Nurse Name: Clarissa Rodriguez RN Position: [facility] RN Supv Member Role: Primary Care Nurse Name: Ophelia Marie RN Position: [facility] RN Member Role: Primary Care Nurse Name: Nolvia Mendes RN Position: [facility] RN Member Role: Primary Care Nurse Name: Adi Rees RN Position: [facility] RN Member Role: Primary Care Nurse Name: Doroteo Morrow RN Position: [facility] RN Member Role: Primary Care Nurse Address: Address: [address] [place] [address]- Name: Cassidy Masters RN Position: [facility] RN Member Role: Primary Care Nurse Name: Juancarlos Valente RN Position: [facility] Hospital Barbecue Cook Member Role: Primary Care Nurse Name: Dawna Hernandez MD Position: [facility] Physician - Primary Care Member Role: PCP Address: Address: [address] [place] [address]- [place] Care Team Related Persons Name: SYLVIA BARBOSA Address: home [address] [place] [id number] Name: GAGE HUNT Address: [address] [place] [address] Name: JOCELYN HUNT Address: home [address] [place] [address]
--- OUTSIDE RECORDS SUMMARY | 2024-05-24 04:32 | XMS_ITS | Continuity of Care Document ---
Author Organization [facility] Address [address] [place] [address]- Care Team Providers Care Bank Worker Name Role Phone Alonzo Esposito MD Primary Care Physician Encounter [facility] Date(s): 09/12/23 - 11/24/[address] [address]- Attending Physician: Parish Bower OD Admitting Physician: Parish Bower OD Referring Physician: Alonzo Esposito MD Allergies, Adverse [...] influenza virus vaccine, inactivated 12/06/15 Give n [id number] 12y+ bivalent booster vax 11/03/22 Given SARS-CoV-2 mRNA (qzrdgrg-bchx-zkhmq) vax 01/26/22 Given SARS-CoV-2 mRNA (vndvnea-inqu-gzxka) vax 12/28/21 Given pneumococcal 23-valent vaccine 04/08/18 Recorded pneumococcal 23-valent vaccine 04/22/17 Recorded pneumococcal 23-valent vaccine 12/21/12 Given Medications aspirin 81 mg oral delayed release tablet 81 mg, By Mouth, Daily, # 30 tablet, Refills 11, Tot. Refills 11, Maintenance, 09/12/23 17:42:00 EST, Route to Pharmacy Electronically, [place], [place] - [id number], For blister pack please., 166, cm, 09/12/23 13:54:00 EST, Height, 9... Start Date: 09/12/23 Status: Ordered atorvastatin 40 mg oral tablet 1 tablet = 40 mg, By Mouth, Daily, # 30 tablet, 11 Refills, Maintenance, 09/12/23 17:42:00 EST, Tablet, [place], [place] - [id number], For blister pack please., 166, cm, 09/12/23 13:54:00 EST, Height, 93, kg, 09/06/23 16:15:00 EST, .. Start Date: 09/12/23 Stop Date: 09/06/24 Status: Ordered chlorhexidine topical 0.12% liquid See Instructions, SWISH AND SPIT DO NOT SWALLOW. USE 3-4 X/ DAY, # 473 mL, 0 Refills, Maintenance, 09/25/23 16:56:00 EST, [facility] STORE [id number], 30, SWISH AND SPIT DO NOT SWALLOW. USE 3-4 X/ DAY, 166, cm, 09/21/23 11:32:00 EST, Height, 93, kg, 09/14/23 12:3... Start Date: 09/25/23 Status: Ordered docusate sodium 100 mg oral tablet 1 tablet = 100 mg, By Mouth, 2 times a day, PRN for constipation, # 60 tablet, 0 Refills, Maintenance, 09/27/23 13:27:00 EST, Tablet, [facility]/pharmacy #[id number], Partial fill upon patient request if the prescription is for a schedule II opioid drug., 166, cm,... Start Date: 09/27/23 Status: Ordered FLUoxetine 20 mg oral capsule 60 mg, 3, capsule, By Mouth, Daily, TAKE 3 CAPSULES BY MOUTH EVERY DAY IN THE MORNING, # 90 capsule, Refills 11, Tot. Refills 11, Maintenance, 09/12/23 17:44:00 EST, Route to Pharmacy Electronically,[facility] [id number], for... Start Date: 09/12/23 Status: Ordered gabapentin 300 mg oral capsule 300 mg, 1, capsule, By Mouth, 2 times a day, # 60 capsule, Refills 11, Tot. Refills 11, Maintenance, 09/12/23 17:42:00 EST, Route to Pharmacy Electronically, [facility] [id number], For blister pack please., 166, cm, 09/12/23 1... Start Date: 09/12/23 Status: Ordered nitroglycerin 0.4 mg sublingual tablet 1 tablet = 0.4 mg, Sublingual, Every 5 minutes, PRN Chest Pain, # 100 tablet, 0 Refills, Maintenance, 06/08/23 16:23:00 EDT, Tablet, [facility]/pharmacy #[id number], Partial fill upon patient request [...] 0 Refills, Maintenance, 10/22/23 11:37:00 EST, Tablet, [facility]/pharmacy #[id number], Partial fill... Start Date: 10/22/23 Status: Ordered propranolol 20 mg oral tablet 2, tablet, By Mouth, 2 times a day, # 120 tablet, Refills 11, Tot. Refills 11, Maintenance, 09/12/23 17:42:00 EST, Route to Pharmacy Electronically, [facility] [id number], For blister pack please., 166, cm, 09/12/23 13:54:00 E... Start Date: 09/12/23 Status: Ordered risperiDONE 2 mg oral tablet 4 mg, 2, tablet, By Mouth, Daily at bedtime, Rx'd by psychiatry, # 60 tablet, Refills 11, Tot. Refills 11, Maintenance, 09/12/23 17:44:00 EST, Route to Pharmacy Electronically, [place] - [id number], for blister pack, 166, cm... Start Date: 09/12/23 Status: Ordered tiZANidine 2 mg oral tablet 2 mg, 1, tablet, By Mouth, 3 times a day, Can take two tablets at bedtime. Do not take at the same time as oxycodone., # 90 tablet, Refills 0, Tot. Refills 0, Maintenance, 09/26/23 10:38:00 EST, Route to Pharmacy Electronically, [facility]/pharmacy #[id number], Sp... Start Date: 09/26/23 Status: Ordered traZODone 100 mg oral tablet 50 mg, 0.5, tablet, By Mouth, Daily at bedtime, # 15 tablet, Refills 11, Tot. Refills 11, Maintenance, 09/12/23 17:44:00 EST, Route to Pharmacy Electronically, [place], [place] - [id number], Partial fill upon patient request if the pr... Start Date: 09/12/23 Status: Ordered Ventolin HFA 108 mcg/inh inhalation aerosol with adapter 2 puffs, Inhalation, 4 times a day, PRN NEEDED FOR WHEEZING, # 18 Gm, 11 Refills, Maintenance, 02/22/23 8:17:00 EDT, [facility]/pharmacy #[id number], 166, cm, 01/18/23 15:56:00 EDT, [...] Active Health long term, active care coordination PADMINI Mata [phone] Confirmed Active Severe obesity (BMI 35.0-39.9) with comorbidity Confirmed Active Fatty infiltration of liver Confirmed Active Tubular adenoma of colon Confirmed Active 1history of this with surgical correction Social History Social History Type Response Smoking Status Former smoker; Other : Quit 2014; entered on: 09/10/17 Sex Patient Care team information Care Team Personnel Name: Elvia Collins RN Position: [facility] RN Member Role: Primary Care Nurse Name: Macarena Lewis RN Position: [facility] RN Member Role: Primary Care Nurse Name: Mallory Lugo RN Position: [facility] RN Member Role: Primary Care Nurse Name: Carmen Gao RN Position: [facility] ED RN W/OE and Tasks Member Role: Primary Care Nurse Name: Dacia Evangelista RN Position: [facility] RN Member Role: Primary Care Nurse Name: Tracey Linares RN Position: [facility] AMB Nurse Member Role: Primary Care Nurse Name: Italia Ortega RN Position: [facility] RN Member Role: Primary Care Nurse Name: Catalina He RN Position: [facility] AMB Nurse Member Role: Primary Care Nurse Name: Cortez Golden RN Position: [facility] RN Member Role: Primary Care Nurse Name: Jessica Lantigua RN Position: [facility] SN RN Member Role: Primary Care Nurse Name: Catalina Pack RN Position: [facility] SN RN Member Role: Primary Care Nurse Name: Clifford Gerber RN Position: [facility] RN Member Role: Primary Care Nurse Name: Doris Butler RN Position: [facility] RN Member Role: Primary Care Nurse Name: Aziza Poole RN Position: [facility] RN Member Role: Primary Care Nurse Name: Monet Miller RN Position: [facility] RN Member Role: Primary Care Nurse Name: Katheryn Wu RN Position: [facility] SN RN Member Role: Primary Care Nurse Name: Doris Dee RN Position: [facility] RN Member Role: Primary Care Nurse Name: Janae Soto RN Position: [facility] RN Member Role: Primary Care Nurse Name: Daphney Echols LPN Position: [facility] RN Member Role: Primary Care Nurse Name: Nini Odonnell RN Position: [facility] RN Member Role: Primary Care Nurse Name: Jennifer Thakkar RN Position: [facility] RN Member Role: Primary Care Nurse Name: Hyun Ochoa RN Position: [facility] RN Member Role: Primary Care Nurse Name: Yazmin Lay RN Position: [facility] RN Member Role: Primary Care Nurse Name: Ranjana Zavala RN Position: [facility] RN Member Role: Primary Care Nurse Name: Melvi Carter RN Position: [facility] OB RN Member Role: Primary Care Nurse Name: Jackson Rosen RN Position: [facility] RN Member Role: Primary Care Nurse Name: Clarissa Rodriguez RN Position: [facility] RN Supv Member Role: Primary Care Nurse Name: Ophelia Marie RN Position: [facility] RN Member Role: Primary Care Nurse Name: Nolvia Mendes RN Position: [facility] RN Member Role: Primary Care Nurse Name: Tyrone Germain RN Position: [facility] RN Member Role: Primary Care Nurse Name: Adi Rees RN Position: [facility] RN Member Role: Primary Care Nurse Name: Alonzo Esposito MD Position: [facility] Physician - Primary Care Member Role: PCP Address: Address: [address] [place] [phone]- Name: Doroteo Morrow RN Position: [facility] RN Member Role: Primary Care Nurse Address: Address: [address] [place] [address]- Name: Cassidy Masters RN Position: [facility] RN Member Role: Primary Care Nurse Name: Juancarlos Valente RN Position: [facility] Hospital Business Risk Consultant Member Role: Primary Care Nurse Name: Tran Wiseman RN Position: [facility] RN Member Role: Primary Care Nurse Care Team Related Persons Name: SYLVIA BARBOSA Address: home [address] [place] [phone] Name: GAGE HUNT Address: home [address] [place] [id number] Name: JOCELYN HUNT Address: home [address] [place] [address]
--- OUTSIDE RECORDS SUMMARY | 2024-05-24 04:32 | XMS_ITS | Continuity of Care Document ---
Author Organization [facility] Address [address] [place] [address]- Care Team Providers Care Director Educational Radio Name Role Phone Alonzo Esposito DO Primary Care Physician Encounter [facility] Date(s): 04/13/23 - 05/13/[address] [address]- Allergies, Adverse Reactions, Alerts Substance Reaction Severity Status lisinopril Angioedema Active Shrimp Active Immunizations Given and Recorded Vaccine Date Status Refusal Reason [id number] 12y+ bivalent booster vax 11/03/22 Given influenza virus vaccine, inactivated 11/03/22 Give n influenza virus vaccine, inactivated 02/15/22 Give n influenza virus vaccine, inactivated 09/01/20 Give n influenza virus vaccine, inactivated 09/15/19 Give n influenza virus vaccine, inactivated 11/19/18 Give n influenza virus vaccine, inactivated 09/10/17 Give n influenza virus vaccine, inactivated 12/06/15 Give n SARS-CoV-2 mRNA (qptbroa-nehp-rloxp) vax 01/26/22 Given SARS-CoV-2 mRNA (aaeynux-wmfq-dmpul) vax 12/28/21 Given tetanus/diphtheria/pertussis, acel(Tdap) 03/29/19 Given tetanus/diphtheria/pertussis, acel(Tdap) 09/10/17 Given pneumococcal 23-valent vaccine 04/08/18 Recorded pneumococcal 23-valent vaccine 04/22/17 Recorded pneumococcal 23-valent vaccine 12/21/12 Given Medications acetaminophen-oxycodone 325 mg-10 mg oral tablet 1 tablet, By Mouth, Daily at bedtime, for 30 days, mass pat verified, # 30 tablet, 0 Refills, Acute05/19/23 21:13:00 EDT, 04/19/23 21:13:00 EDT, [facility]/pharmacy #[id number], Partial fill upon patient requestif the [...] 03/15/23 0:06:00 EDT, Route to Pharmacy Electronically, [facility]/pharmacy #[id number], Partial fill upon patient request if the prescription is for a schedule II opioid drug.... Start Date: 03/15/23 Status: Ordered atorvastatin 40 mg oral tablet 1 tablet, By Mouth, Daily, # 90 tablet, 1 Refills, Maintenance, 03/01/23 12:46:00 EDT, [facility] STORE [id number], 166, cm, 01/18/23 15:56:00 EDT, Height, 91, [...] tablet, 1 Refills, Maintenance, 02/22/23 8:17:00 EDT, [facility]/pharmacy #[id number], 166, cm, 01/18/23 15:56:00 EDT, Height, 91, kg, 01/18/23 15:56:00 EDT, Dry Weight Start Date: 02/22/23 Status: Ordered chlorhexidine topical 0.12% liquid See Instructions, swish and spit; do not swallow. use 3-4 x/ day, # 473 mL, 0 Refills, Maintenance,04/30/23 14:38:00 EDT, [facility]/pharmacy #[id number], Partial fill upon [...] 3 Refills, Maintenance, 04/30/23 14:32:00 EDT, Gel, [facility]/pharmacy #[id number], Partial fill upon [...] Maintenance, 06/15/22 17:40:00EDT, Tablet, [facility]/pharmacy #[id number], Partial fill upon patient request if the prescription is for a schedule II opioid drug., 165, cm, 06/15/22 14:29:00 ED... Start Date: 06/15/22 Status: Ordered ibuprofen 600 mg oral tablet 600 mg, 1, tablet, By Mouth, 3 times a day, # 90 tablet, Refills 0, Tot. Refills 0, Maintenance, 09/06/22 21:10:00 EST, Route to Pharmacy Electronically, [facility]/pharmacy #[id number], Partial fill upon patientrequest if the [...] Refills, Maintenance, 07/20/22 15:26:00 EDT, [id number], 10, APPLY 1 PATCH DAILY NEEDED FOR MODERATE PAIN..REMOVE AFTER 12... Start Date: 07/20/22 Status: Ordered Motrin IB 200 mg oral tablet 2 tablet = 400 mg, By Mouth, Every 6 hours, PRN for pain, # 120 tablet, 0 Refills, Maintenance, 03/17/23 20:06:00 EDT, Tablet, [id number], Partial fill upon [...] Refills, Maintenance, 03/03/23 15:23:00 EDT, [facility], 166, cm, 01/18/23 15:56:00 EDT, Height, 91, kg, 01/18/23 15:56:00 EDT, Dry Weight Start Date: 03/03/23 Status: Ordered OxyCONTIN 15 mg oral tablet, extended release 1 tablet = 15 mg, By Mouth, Every 12 hours, MassPAT checked dx: M54.5 on agreement do not fill until 03/24/23, # 60 tablet, 0 Refills, Maintenance, 04/11/23 12:33:00 EDT, ER Tablet, [facility]/pharmacy #[id number], Partial fill upon patient request if the [...] 04/19/23 20:48:00 EDT, Route to Pharmacy Electronically, [id number], 165, cm, 04/09/23 9:47:00 EDT, Height, 89.1, [...] EST, Supply Start Date: 12/12/22 Status: Ordered Curing Oven Tender Curing Oven Tender, See Instructions, # 1 each, Refills 0, [...] 03/17/23 20:06:00 EDT, Route to Pharmacy Electronically, [facility]/pharmacy #[id number], Partial fill upon patient request if the prescription is for... Start Date: 03/17/23 Status: Ordered Ventolin HFA 108 mcg/inh inhalation aerosol with adapter 2 puffs, Inhalation, 4 times a day, PRN NEEDED FOR WHEEZING, # 18 Gm, 11 Refills, Maintenance, 02/22/23 8:17:00 EDT, [facility]/pharmacy #[id number], 166, cm, 01/18/23 15:56:00 EDT, Height, [...] Active Obstructive sleep apnea Confirmed Active Health retirement, active care coordination PADMINI Mata [phone] Confirmed Active Fatty infiltration of liver Confirmed Active Tubular adenoma of colon Confirmed Active 1history of this with surgical correction Social History Social History Type Response Smoking Status Former smoker; Other : Quit 2014; entered on: 09/10/17 Sex Patient Care team information Care Team Personnel Name: Macarena Lewis RN Position: [facility] RN Member Role: Primary Care Nurse Name: Mallory Lugo RN Position: [facility] RN Member Role: Primary Care Nurse Name: Carmen Gao RN Position: [facility] RN Member [...] Care Nurse Name: Peter Monahan RN Position: [facility] RN Member Role: Primary Care Nurse Name: Aziza Poole RN Position: [facility] RN Member Role: Primary Care Nurse Name: Katheryn Wu RN Position: [facility] RN Member Role: Primary Care Nurse Name: Doris Dee RN Position: [facility] RN Member Role: Primary Care Nurse Name: Janae Soto RN Position: [facility] RN Member Role: Primary Care Nurse Name: Hyun Ochoa RN Position: [facility] RN Member Role: Primary Care Nurse Name: Nancy Magana RN Position: [facility] RN Member Role: Primary Care Nurse Name: Ranjana Zavala RN Position: [facility] RN Member Role: Primary Care Nurse Name: Melvi Carter RN Position: [facility] OB RN Member Role: Primary Care Nurse Name: Jackson Rosen RN Position: [facility] RN Member Role: Primary Care Nurse Name: Clarissa Rodriguez RN Position: [facility] RN Suptasha Member Role: Primary Care Nurse Name: Ophelia Marie RN Position: [facility] RN Member Role: Primary Care Nurse Name: Nolvia Mendes RN Position: [facility] RN Member Role: Primary Care Nurse Name: Adi Rees RN Position: [facility] RN Member Role: Primary Care Nurse Name: Alonzo Esposito DO Position: [facility] Resident Member Role: PCP Address: Address: [address] [place] [address]- Name: Doroteo Morrow RN Position: [facility] RN Member Role: Primary Care Nurse Address: Address: [address] [place] [address]- Name: Cassidy Masters RN Position: [facility] RN Member Role: Primary Care Nurse Name: Juancarlos Valente RN Position: [facility] Delivery Coordinator Member Role: Primary Care Nurse Care Team Related Persons Name: SYLVIA BARBOSA Address: [address] [place] [address] Name: GAGE HUNT Address: [address] [place] [address] Name: JOCELYN HUNT Address: home [address] [place] [address]
--- OUTSIDE RECORDS SUMMARY | 2024-05-24 04:32 | XMS_ITS | Continuity of Care Document ---
Author Organization [facility] Address [address] [place] [address]- Care Team Providers Care Toe Trimmer Name Role Phone Dawna Hernandez MD Primary Care Physician [phone] Encounter [facility] Date(s): 09/21/22 - 10/24/[address] [address] Attending Physician: Dawna Hernandez MD Admitting [...] vaccine, inactivated 12/06/15 Give n SARS-CoV-2 mRNA (xaqusdu-aswm-ntvea) vax 01/26/22 Given SARS-CoV-2 mRNA (cckhmtj-urtw-gmybm) vax 12/28/21 Given tetanus/diphtheria/pertussis, acel(Tdap) 03/29/19 Given tetanus/diphtheria/pertussis, acel(Tdap) 09/10/17 Given pneumococcal 23-valent vaccine 04/08/18 Recorded pneumococcal 23-valent vaccine 04/22/17 Recorded pneumococcal 23-valent vaccine 12/21/12 Given Medications albuterol CFC free 90 mcg/inh inhalation aerosol 2, puffs, Inhalation, Every 6 hours, PRN, # 1 each, Refills 6, Tot. Refills 6, Maintenance, 08/07/22 17:48:00 EDT, Aerosol, Route to Pharmacy Electronically, [id number], [facility]/pharmacy #[id number], 165, cm, 08/02/22 5:50:00 EDT, [facility]... [...] 3 Refills, Maintenance, 05/11/22 14:22:00 EDT, Tablet, [facility]/pharmacy #[id number], [...] tablet, 1 Refills, Maintenance, 04/05/22 7:53:00 EDT, [facility]/pharmacy #[id number], 165, cm, 02/15/22 10:35:00 EDT, Height, 90.7, kg, 02/06/22 19:49:00 EDT, Dry Weight Start Date: 04/05/22 Status: Ordered Colace sodium 100 mg oral capsule 100 mg, 1, capsule, By Mouth, 2 times a day, PRN, # 20 capsule, Refills 0, Tot. Refills 0, Maintenance, for constipation, 09/22/22 9:53:00 EST, Route to Pharmacy Electronically, [facility]/pharmacy #[id number], Partial fill [...] tablet, 11 Refills, Maintenance, 06/15/22 17:40:00EDT, Tablet, [facility]/pharmacy #[id number], Partial fill upon patient request if the prescription is for a schedule II opioid drug., 165, cm, 06/15/22 14:29:00 ED... Start Date: 06/15/22 Status: Ordered ibuprofen 600 mg oral tablet 600 mg, 1, tablet, By Mouth, 3 times a day, # 90 tablet, Refills 0, Tot. Refills 0, Maintenance, 11/23/22 21:10:00 EST, Route to Pharmacy Electronically, [facility]/pharmacy #[id number], Partial fill upon patientrequest [...] patch, 0 Refills, Maintenance, 07/20/22 15:26:00 EDT, [facility] STORE [facility]4090, 10, APPLY 1 PATCH DAILY NEEDED FOR MODERATE PAIN..REMOVE AFTER 12... Start Date: 07/20/22 Status: Ordered oxyCODONE 15 mg oral tablet 1 tablet = 15 mg, By Mouth, Every 6 hours, for 28 days[facility], # 112 tablet, 0 Refills, Acute 11/14/22 17:13:00 EST, 10/17/22 17:13:00 EST, [facility]/pharmacy #[id number], Partial fill upon patient request if the prescription is for a schedule... Start Date: 10/17/22 Stop Date: 11/14/22 Status: Ordered PAP Supplies - Mask, Tubing, [...] tablet, Refills 5, Route to Pharmacy Electronically, [id number], 166, cm, 12/28/21 10:33:00 EDT, Height, 91.9, [...] wheezing, # 8 Gm, 0 Refills, Maintenance, 10/17/22 17:13:00 EST, Aerosol, [facility]/pharmacy #[id number], Partial fill upon patient request if the prescription is for a schedule II opioid drug., 175, cm, 09/21/22 8:58:0... Start Date: 10/17/22 Status: Ordered Walker See Instructions, # 1 [...] Confirmed Active Health shelter, active care coordination Netta Nancy [facility] [phone] Confirmed Active Fatty infiltration of liver Confirmed Active Tubular adenoma of colon Confirmed Active Social History Social History Type Response Smoking Status Former smoker; Other : Quit 2014; entered on: 09/10/17 Sex Patient Care team information Care Team Personnel Name: Macarena Lewis RN Position: [facility] RN Member Role: Primary Care Nurse Name: Mallory Lugo RN Position: [facility] RN Member Role: Primary Care Nurse Name: Carmen Gao RN Position: [facility] RN Member Role: Primary Care Nurse Name: Dacia Evangelista RN Position: [facility] RN Member Role: Primary Care Nurse Name: Tracey Linares [facility] RN Member Role: Primary Care Nurse Name: Italia Ortega RN Position: [facility] RN Member Role: Primary Care Nurse Name: Catalina He RN Position: [facility] RN Member Role: Primary Care Nurse Name: Jessica Lantigua RN Position: [facility] SN RN Member Role: Primary Care Nurse Name: Clifford Gerber RN Position: [facility] RN Member Role: Primary Care Nurse Name: Peter Monahan RN Position: [facility] RN Member Role: Primary Care Nurse Name: Aziza Poole RN Position: [facility] RN Member Role: Primary Care Nurse Name: Monet Miller RN Position: [facility] RN Member Role: Primary Care Nurse Name: Katheryn Wu RN Position: [facility] RN Member Role: Primary Care Nurse Name: Doris Dee RN Position: [facility] RN Member Role: Primary Care Nurse Name: Janae Soto RN Position: [facility] RN Member Role: Primary Care Nurse Name: Hyun Ochoa RN Position: [facility] RN Member Role: Primary Care Nurse Name: Nancy Magana RN Position: [facility] RN Member Role: [...] Name: Ophelia Marie RN Position: [facility] RN Member Role: Primary Care Nurse Name: Nolvia Mendes RN Position: [facility] RN Member Role: Primary Care Nurse Name: Adi Rees RN Position: [facility] RN Member Role: Primary Care Nurse Name: Catalina Torres RN Position: [facility] RN Member Role: Primary Care Nurse Name: Doroteo Morrow RN Position: [facility] RN Member Role: Primary Care Nurse Address: Address: [address] [place] [address]- Name: Cassidy Masters RN Position: [facility] RN Member Role: Primary Care Nurse Name: Juancarlos Valente RN Position: [facility] Hospital Store Standards Associate Member Role: Primary Care Nurse Name: Dawna Hernandez MD Position: [facility] Primary Care Physician Member Role: PCP Address: Address: [address] [place] [id number]- Care Team Related Persons Name: SYLVIA BARBOSA Address: home [address] [place] [id number] Name: GAGE HUNT Address: [address] [place] [address] Name: JOCELYN HUNT Address: [address] [place] [address]
--- OUTSIDE RECORDS SUMMARY | 2024-05-24 04:32 | XMS_ITS | Continuity of Care Document ---
Author Organization [facility] Address [address] [place] [address]- Care Team Providers Care Fertilizing Machine Operator Name Role Phone Dawna Hernandez MD Primary Care Physician Encounter [facility] Date(s): 12/27/22 - 01/26/[address] [address] Allergies, Adverse Reactions, Alerts Substance Reaction Severity Status lisinopril Angioedema Active Shrimp Active Immunizations Given and Recorded Vaccine Date Status Refusal Reason [id number] 12y+ bivalent booster vax 11/03/22 Given influenza virus vaccine, inactivated 11/03/22 Give n influenza virus vaccine, inactivated 02/15/22 Give n influenza virus vaccine, inactivated 09/01/20 Give n influenza virus vaccine, inactivated 09/15/19 Give n influenza virus vaccine, inactivated 11/19/18 Give n influenza virus vaccine, inactivated 09/10/17 Give n influenza virus vaccine, inactivated 12/06/15 Give n SARS-CoV-2 mRNA (qtvxscv-whiv-lglhp) vax 01/26/22 Given SARS-CoV-2 mRNA (ypxkipz-rjlj-khaph) vax 12/28/21 Given tetanus/diphtheria/pertussis, acel(Tdap) 03/29/19 Given [...] 3 Refills, Maintenance, 05/11/22 14:22:00 EDT, Tablet, [facility]/pharmacy #[id number], [...] tablet, 1 Refills, Maintenance, 04/05/22 7:53:00 EDT, [facility]/pharmacy #[id number], 165, cm, 02/15/22 10:35:00 EDT, Height, 90.7, kg, 02/06/22 19:49:00 EDT, Dry Weight Start Date: 04/05/22 Status: Ordered Colace sodium 100 mg oral capsule 100 mg, 1, capsule, By Mouth, 2 times a day, PRN, # 20 capsule, Refills 0, Tot. Refills 0, Maintenance, for constipation, 09/22/22 9:53:00 EST, Route to Pharmacy Electronically, [facility]/pharmacy #[id number], Partial fill [...] 0 Refills, Maintenance, 01/26/23 13:08:00 EDT, Tablet, [id number], Partial fill upon patient request if the [...] tablet, 11 Refills, Maintenance, 06/15/22 17:40:00EDT, Tablet, [facility]/pharmacy #[id number], Partial fill upon patient request if the prescription is for a schedule II opioid drug., 165, cm, 06/15/22 14:29:00 ED... Start Date: 06/15/22 Status: Ordered ibuprofen 600 mg oral tablet 600 mg, 1, tablet, By Mouth, 3 times a day, # 90 tablet, Refills 0, Tot. Refills 0, Maintenance, 09/06/22 21:10:00 EST, Route to Pharmacy Electronically, [facility]/pharmacy #[id number], Partial fill upon patientrequest [...] patch, 0 Refills, Maintenance, 07/20/22 15:26:00 EDT, [facility] STORE [facility]001, 10, APPLY 1 PATCH DAILY NEEDED FOR MODERATE PAIN..REMOVE AFTER 12... Start Date: 07/20/22 Status: Ordered nitroglycerin 0.4 mg sublingual tablet 1 tablet = 0.4 mg, Sublingual, Every 5 minutes, PRN Chest Pain, # 100 tablet, 0 Refills, Maintenance, 11/06/22 13:52:00 EST, Tablet, [facility]/pharmacy #[id number], Partial fill upon patient request if the prescription is for a schedule II opioid drug., 175, cm,... Start Date: 11/06/22 Status: Ordered omeprazole 20 mg oral enteric coated capsule 1 capsule = 20 mg, By Mouth, Daily, # 30 capsule, 1 Refills, Maintenance, 01/04/23 12:40:00 EDT, ECCapsule, [facility]/pharmacy #[id number], Partial fill [...] Refills, Maintenance, 01/22/23 15:38:00 EDT, ER Tablet, [facility]/pharmacy [...] tablet, Refills 5, Route to Pharmacy Electronically, [facility], 166, cm, 12/28/21 10:33:00 EDT, Height, 91.9, [...] EST, Supply Start Date: 12/12/22 Status: Ordered Gate Technician Gate Technician, See Instructions, # 1 each, Refills 0, [...] Refills, Maintenance, 12/12/22 12:14:00 EST, [facility], 175, cm, 11/15/22 9:07:00 EST, Height, 88.2, [...] Active Health [facility], active care coordination PADMINI Mata [phone] Confirmed Active Fatty infiltration of liver Confirmed Active Tubular adenoma of colon Confirmed Active 1history of this with surgical correction Social History Social History Type Response Smoking Status Former smoker; Other : Quit 2014; entered on: 09/10/17 Sex Patient Care team information Care Team Personnel Name: Macarena Lewsi RN Position: [facility] RN Member Role: Primary Care Nurse Name: Mallory Lugo RN Position: [facility] RN Member Role: Primary Care Nurse Name: Carmen Gao RN Position: [facility] RN Member Role: Primary Care Nurse Name: Dacia Evangelista RN Position: [facility] RN Member Role: Primary Care Nurse Name: Tracey Linares RN Position: [facility] PCO RN Member Role: Primary Care Nurse Name: Italia Ortega RN Position: [facility] RN Member Role: Primary Care Nurse Name: Catalina He RN Position: [facility] AMB Nurse Member Role: Primary Care Nurse Name: Cortez Golden RN Position: [facility] RN Member Role: Primary Care Nurse Name: Jessica Lantigua RN Position: [facility] SN RN Member Role: Primary Care Nurse Name: Catalina Pack RN Position: [facility] SN RN Member Role: Primary Care Nurse Name: Clifford Gerber RN Position: [facility] RN Member Role: Primary Care Nurse Name: Peter Monahan RN Position: [facility] RN Member Role: Primary Care Nurse Name: Aziza Poole RN Position: [facility] RN Member Role: Primary Care Nurse Name: Monet Miller RN Position: [facility] RN Member Role: Primary Care Nurse Name: Katheryn Wu RN Position: [facility] RN Member Role: Primary Care Nurse Name: Doris Dee RN Position: [facility] RN Member Role: Primary Care Nurse Name: Janae Soto RN Position: [facility] RN Member Role: Primary Care Nurse Name: Hyun Ochoa RN Position: [facility] RN Member Role: Primary Care Nurse Name: Nancy Magana RN Position: [facility] RN Member Role: Primary Care Nurse Name: Ranjana Zavala RN Position: [facility] RN Member Role: Primary Care Nurse Name: Melvi Carter RN Position: [facility] OB RN Member Role: Primary Care Nurse Name: Jackson Rosen RN Position: [facility] RN Member Role: Primary Care Nurse Name: Clarissa Rodriguez RN Position: [facility] RN Supv Member Role: Primary Care Nurse Name: Ophelia Marie RN Position: [facility] RN Member Role: Primary Care Nurse Name: Nolvia Mendes RN Position: [facility] RN Member Role: Primary Care Nurse Name: Adi Rees RN Position: [facility] RN Member Role: Primary Care Nurse Name: Doroteo Morrow RN Position: [facility] RN Member Role: Primary Care Nurse Address: Address: [address] [place] [address]- Name: Cassidy Masters RN Position: [facility] RN Member Role: Primary Care Nurse Name: Juancarlos Valente RN Position: [facility] Hospital Sap Bi Developer Member Role: Primary Care Nurse Name: Dawna Hernandez MD Position: [facility] Primary Care Physician Member Role: PCP Address: Address: [address] [place] [id number]- Care Team Related Persons Name: SYLVIA BARBOSA Address: [address] [place] [address] Name: GAGE HUNT Address: [address] [place] [address] Name: JOCELYN HUNT Address: [address] [place] [address]
--- OUTSIDE RECORDS SUMMARY | 2024-05-24 04:33 | XMS_ITS | Continuity of Care Document ---
Author Organization [facility] Address [address] [place] [address]- Care Team Providers Care Tennis Centre Manager Name Role Phone Dawna Hernandez MD Primary Care Physician Encounter [facility] Date(s): 11/18/22 - 12/27/[address] [id number] Attending Physician: Nini Gonzalez Admitting Physician: Nini Gonzalez Referring Physician: Nini Gonzalez Allergies, Adverse Reactions, Alerts Substance Reaction Severity Status lisinopril Angioedema Active Shrimp Active Immunizations Given and Recorded Vaccine Date Status Refusal Reason [id number] 12y+ bivalent booster vax 11/03/22 Given influenza virus vaccine, inactivated 11/03/22 Give n influenza virus vaccine, inactivated 02/15/22 Give n influenza virus vaccine, inactivated 09/01/20 Give n influenza virus vaccine, inactivated 09/15/19 Give n influenza virus vaccine, inactivated 11/19/18 Give n influenza virus vaccine, inactivated 09/10/17 Give n influenza virus vaccine, inactivated 12/06/15 Give n SARS-CoV-2 mRNA ([id number]) vax 01/26/22 Given SARS-CoV-2 mRNA ([id number]) vax 12/28/21 Given tetanus/diphtheria/pertussis, acel(Tdap) 03/29/19 Given [...] 3 Refills, Maintenance, 05/11/22 14:22:00 EDT, Tablet, [facility] 0, Maintenance, dx: M54.5 M96.1 G83.4LON: 99, 12/21/22 13:56:00 EST, Supply Start Date: 12/21/22 Status: Ordered cetirizine 10 mg oral tablet 1 tablet, By Mouth, Daily, PRN NEEDED FOR ALLERGIES, # 90 tablet, 1 Refills, Maintenance, 04/05/22 7:53:00 EDT, [facility]/pharmacy #[id number], 165, cm, 02/15/22 10:35:00 EDT, Height, 90.7, kg, 02/06/22 19:49:00 EDT, Dry Weight Start Date: 04/05/22 Status: Ordered Colace sodium 100 mg oral capsule 100 mg, 1, capsule, By Mouth, 2 times a day, PRN, # 20 capsule, Refills 0, Tot. Refills 0, Maintenance, for constipation, 09/22/22 9:53:00 EST, Route to Pharmacy Electronically, [facility]/pharmacy #[id number], [...] tablet, 11 Refills, Maintenance, 06/15/22 17:40:00EDT, Tablet, [facility]/pharmacy [...] 09/06/22 21:10:00 EST, Route to Pharmacy Electronically, [facility]/pharmacy #[id number], Partial fill upon patientrequest [...] managing back pain dx: M54.5 M96.1 G83.4, 12/21/22 13:56:00 EST, Supply Start Date: 12/21/22 Status: Ordered lidocaine 5% topical film 1 patch, Topically, Daily, PRN NEEDED FOR MODERATE PAIN, REMOVE AFTER 12 HOURS (12 HRS ON, 12 HRS OFF), # 10 patch, 0 Refills, Maintenance, 07/20/22 15:26:00 EDT, [facility] STORE [id number], 10, APPLY 1 PATCH DAILY NEEDED FOR MODERATE PAIN..REMOVE AFTER 12... Start Date: 07/20/22 Status: Ordered nitroglycerin 0.4 mg sublingual tablet 1 tablet = 0.4 mg, Sublingual, Every 5 minutes, PRN Chest Pain, # 100 tablet, 0 Refills, Maintenance, 11/06/22 13:52:00 EST, Tablet, [facility]/pharmacy #[id number], Partial fill upon patient request if the prescription is for a schedule II opioid drug., 175, cm,... Start Date: 11/06/22 Status: Ordered omeprazole 20 mg oral enteric coated capsule 1 capsule = 20 mg, By Mouth, Daily, # 30 capsule, 1 Refills, Maintenance, 12/01/22 11:59:00 EST, ECCapsule, [facility]/pharmacy #[id number], [...] Refills, Maintenance, 12/01/22 12:02:00 EST, ER Tablet, [facility]/pharmacy [...] tablet, Refills 5, Route to Pharmacy Electronically, [facility] STORE [id number], 166, cm, 12/28/21 10:33:00 EDT, Height, 91.9, kg, 12/19/21 12:48:00 EST, Dry Weight Start Date: 01/06/22 Status: Ordered Raised Tension toilet seat Raised Tension toilet seat, See Instructions, # 1 each, Refills 0, Tot. Refills 0, Maintenance, to be used to help with hygeine dx: M54.5 M96.1 G83.4, 12/21/22 13:56:00 EST, Supply Start Date: 12/21/22 Status: Ordered Raised Toilet Seat Raised Toilet Seat, See Instructions, # 1 each, Refills 0, Tot. Refills 0, Maintenance, for help with hygeine dx: M54.5 Wt: 88.2 kg ASMITA: 99, 12/12/22 12:30:00 EST, Supply Start Date: 12/12/22 Status: Ordered Holistic Pulser Holistic Pulser, See Instructions, # 1 each, Refills 0, Tot. Refills 0, Maintenance, dx: M54.5 M96.1 G83.4 ASMITA: 99, 12/21/22 13:56:00 EST, Supply Start Date: 12/21/22 Status: Ordered risperiDONE 2 mg oral tablet [...] M96.1 G83.4 Wt: 88.2 kg ASMITA: 99, 12/21/22 13:56:00 EST, Supply Start Date: 12/21/22 Status: Ordered Shower Bench Shower Bench, See [...] each, 0 Refills, Maintenance, 12/12/22 12:14:00 EST, [facility] STORE [id number], 175, cm, 11/15/22 9:07:00 EST, Height, 88.2, [...] Active Obstructive sleep apnea Confirmed Active Health halfway, active care coordination Netta Cruz [facility] [phone] Confirmed Active Fatty infiltration of liver Confirmed [...] Care Nurse Name: Dacia Evangelista RN Position: [facility] RN Member Role: Primary Care Nurse Name: Tracey Linares RN Position: [facility] PCO RN Member Role: Primary Care Nurse Name: Italia Ortega RN Position: [facility] RN Member Role: Primary Care Nurse Name: Catalina He RN Position: [facility] AMB Nurse Member Role: Primary Care Nurse Name: Cortez Golden RN Position: [facility] RN Member Role: Primary Care Nurse Name: Jessica Lantigua RN Position: [facility] SN RN Member Role: Primary Care Nurse Name: Clifford Gerber RN Position: [facility] RN Member Role: Primary Care Nurse Name: Peter Monahan RN Position: [facility] RN Member Role: Primary Care Nurse Name: Aziza Poole RN Position: [facility] RN Member Role: Primary Care Nurse Name: Monet Miller RN Position: [facility] RN Member Role: Primary Care Nurse Name: Katheryn Wu RN Position: [facility] RN Member Role: Primary Care Nurse Name: Doris Dee RN Position: [facility] RN Member Role: Primary Care Nurse Name: Janae Soto RN Position: [facility] RN Member Role: Primary Care Nurse Name: Hyun Ochoa RN Position: [facility] RN Member Role: Primary Care Nurse Name: Nancy Magana RN Position: [facility] RN Member Role: Primary Care Nurse Name: Ranjana Zavala RN Position: [facility] RN Member Role: Primary Care Nurse Name: Melvi Carter RN Position: [facility] OB RN Member Role: Primary Care Nurse Name: Jackson Rosen RN Position: [facility] RN Member Role: Primary Care Nurse Name: Clarissa Rodriguez RN Position: [facility] RN Supv Member Role: Primary Care Nurse Name: Ophelia Marie RN Position: [facility] RN Member Role: Primary Care Nurse Name: Nolvia Mendes RN Position: [facility] RN Member Role: Primary Care Nurse Name: Adi Rees RN Position: [facility] RN Member Role: Primary Care Nurse Name: Catalina Torres RN Position: [facility] RN Member Role: Primary Care Nurse Name: Doroteo Morrow RN Position: [facility] RN Member Role: Primary Care Nurse Address: Address: [address] [place] [address]- Name: Cassidy Masters RN Position: [facility] RN Member Role: Primary Care Nurse Name: Juancarlos Valente RN Position: [facility] Hospital Interventionist Member Role: Primary Care Nurse Name: Dawna Hernandez MD Position: [facility] Primary Care Physician Member Role: PCP Address: Address: [address] [place] [id number]- Care Team Related Persons Name: SYLVIA BARBOSA Address: home [address] [place] [id number] Name: GAGE HUNT Address: [address] [place] [address] Name: JOCELYN HUNT Address: [address] [place] [address]
--- OUTSIDE RECORDS SUMMARY | 2024-05-24 04:33 | XMS_ITS | Continuity of Care Document ---
Author Organization [facility] ter Address [address] [place] [id number]- Care Team Providers Care Chimney Supervisor Brick Name Role Phone Alonzo Esposito MD Primary Care Physician [phone] Encounter 04/25/24 - 04/26/[address] [address] Attending Physician: Not on Staff, Attending MD Referring Physician: Not on Staff, Referring [...] influenza virus vaccine, inactivated 12/06/15 Give n [id number] 12y+ bivalent booster vax 11/03/22 Given SARS-CoV-2 mRNA ([id number]-[id number]-[id number]) vax 01/26/22 Given SARS-CoV-2 mRNA (bfcrprt-ufci-ipinm) vax 12/28/21 Given pneumococcal 23-valent vaccine 04/08/18 Recorded pneumococcal 23-valent vaccine 04/22/17 Recorded pneumococcal 23-valent vaccine 12/21/12 Given 1Result Comment: [facility] Medications acetaminophen 325 mg oral tablet 650 mg, 2, tablet, By Mouth, Every 6 hours, PRN, # 120 tablet, Refills 0, Tot. Refills 0, Maintenance, for pain, 02/27/24 18:13:00 EDT, [id number] Partial fill upon patient request if the prescription is for... Start Date: 02/27/24 Status: Ordered amoxicillin 500 mg oral capsule 4 capsule = 2,000 mg, By Mouth, Once, given 1 hour prior to the dental procedure, # 4 capsule, 0 Refills, Soft Stop, 03/18/24 8:57:00 EDT, Capsule, [facility]/pharmacy #[id number], Partial fill upon patient request if the prescription is for a schedule II opioid d... Start Date: 03/18/24 Status: Ordered aspirin 81 mg oral delayed release tablet 81 mg, By Mouth, Daily, # 30 tablet, Refills 11, Tot. Refills 11, Maintenance, 09/12/23 17:42:00 EST, Route to Pharmacy Electronically, [place], [place] - [id number], For blister pack please., 166, cm, 09/12/23 13:54:00 EST, Height, 9... Start Date: 09/12/23 Status: Ordered atorvastatin 40 mg oral tablet 1 tablet = 40 mg, By Mouth, Daily, # 30 tablet, 11 Refills, Maintenance, 09/12/23 17:42:00 EST, Tablet, [place], [place] - [id number], For blister pack please., 166, cm, 09/12/23 13:54:00 EST, Height, 93, kg, 09/06/23 16:15:00 EST, Start Date: 09/12/23 Stop Date: 09/06/24 Status: Ordered diclofenac 1% topical gel 1 application, Topically, 4 times a day, PRN Pain , Mild, not to exceed 16 grams/day/single joint of lower extremities, # 100 Gm, 3 Refills, Maintenance, 11/30/23 9:43:00 EST, Gel, [id number] Partial fill upon patient request if the prescript... Start Date: 11/30/23 Status: Ordered FLUoxetine 20 mg oral capsule 60 mg, 3, capsule, By Mouth, Daily, TAKE 3 CAPSULES BY MOUTH EVERY DAY IN THE MORNING, # 90 capsule, Refills 11, Tot. Refills 11, Maintenance, 09/12/23 17:44:00 EST, Route to Pharmacy Electronically,[place], [place] - [id number], for... Start Date: 09/12/23 Status: Ordered gabapentin 800 mg oral tablet 1 tablet = 800 mg, By Mouth, 3 times a day, # 90 tablet, 3 Refills, Maintenance, 02/29/24 9:58:00 EDT, Tablet, [facility]/pharmacy #[id number], Partial fill upon patient request if the prescription is for a schedule II opioid drug., 165, cm, 02/29/24 9:45:00 EDT,... Start Date: 02/29/24 Status: Ordered nitroglycerin 0.4 mg sublingual tablet 1 tablet = 0.4 mg, Sublingual, Every 5 minutes, PRN Chest Pain, # 100 tablet, 0 Refills, Maintenance, 06/08/23 16:23:00 EDT, [id number] Partial fill upon patient request if the prescription is for a schedule II opioid drug., 165, cm,... Start Date: 06/08/23 Status: Ordered oxyCODONE 15 mg oral tablet 1 tablet = 15 mg, By Mouth, Every 6 hours, PRN Pain , Severe, controlled substance agreement., # 120 tablet, 0 Refills, Maintenance, 04/03/24 11:48:00 EDT, Tablet, [facility]/pharmacy #[id number], Partial fill upon patient request if [...] 09/12/23 17:44:00 EST, Route to Pharmacy Electronically, [place], [place] - [id number], for blister pack, 166, cm... Start Date: 09/12/23 Status: Ordered tiZANidine 2 mg oral tablet 4 mg, 2, tablet, By Mouth, Every 8 hours, # 180 tablet, Refills 3, Tot. Refills 3, Maintenance, 02/29/24 9:59:00 EDT, Route to Pharmacy Electronically, [facility]/pharmacy #[id number], Partial fill upon patient request if [...] Gm, 11 Refills, Maintenance, 02/22/23 8:17:00 EDT, [facility]/pharmacy #[id number], 166, cm, 01/18/23 15:56:00 EDT, Height, [...] Active Right knee pain Confirmed Active [facility], [facility] [phone] Confirmed Active Cervical stenosis of spine Confirmed Active Fatty infiltration of liver Confirmed Active Tubular adenoma of colon Confirmed Active 1history of this with surgical correction Results Radiology Reports * Exam Date Time Procedure Performing Provider Status 04/25/24 7:17 AM MRI Ext Lower W/O Contrast Right Auth (Verified) Notes: (MRI Ext Lower W/O Contrast Right) Reason For Exam: Reason For Exam: M25.561 - Pain in right knee, M25.562 - Pain in left knee, ,;Reason For Exam: M25.561 - Pain in right knee, M25.562 - Pain in leftknee, , RESULT: MRI Ext Lower W/O Contrast Right [facility] VISIT NUMBER :[id number] Patient Name: Jamarcus Barbosa Date of : 1970 Date of Exam: 04-25-2024 Referring Physician: Tianna Jenkins [facility] [address] [place] [address]/[place] [address] Exam: MR Knee (C-) CPT 70462 - Right Room Description: [facility] 3.0T History: Pain in the right knee. The patient reports mild to moderate bilateral knee pain for years and history of bilateral infection over 5 years ago. Technique: MRI of the right knee was performed without intravenous contrast. Comparison: None. Findings: Joint effusion: No joint effusion is present. There is a region of heterogeneous edema in the superior aspect of Hoffa's fat pad. Trace fluid is seen in a Quintero's cyst. Menisci: The medial and lateral meniscus both appear normal. No meniscal tear is seen. Tendons and ligaments: The ACL and PCL are intact. The collateral ligaments are unremarkable. The iliotibial band is unremarkable. The distal quadriceps tendon is intact. There are foci susceptibility artifact superficial to the patellar tendon. There is thickening and increased signal in the proximal patellar tendon. Bony proliferation is seen of the tibial tubercle. Articular cartilage and bone: Articular cartilage in the medial and lateral compartments appears thin without focal chondral defect. Mild chondral surface irregularity is seen in the trochlea. There is lateral tilt of the patella with heterogeneously increased signal of the articular cartilage overlying the lateral patellar facet. There is a osteophyte inferiorly at the patellar apex and chondral thinning in the medial patellar facet. The trochlea appears shallow. Impression: 1. No evidence of meniscal or cruciate ligament tear. 2. 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 3. Mild tricompartmental degenerative change. Electronically Signed By: Ana Luisa Mendes MD Dictated By: Not on Staff , SANJAY RAWLS Dictated Date/Time: 04/25/24 9:45 am Reviewed By: Not on Staff , SANJAY RAWLS Signed By: Not on Staff , SANJAY RAWLS Signed Date/Time: 04/25/24 9:45 am Transcribed By: LEATHA Transcribed Date/Time: 04/25/24 9:45 am * Exam Date Time Procedure Performing Provider Status 04/25/24 7:17 AM MRI Ext Lower W/O Contrast Left Auth (Verified) Notes: (MRI Ext Lower W/O Contrast Left) Reason For Exam: Reason For Exam: M25.561 - Pain in right knee, M25.562 - Pain in left knee, ,;Reason For Exam: M25.561 - Pain in right knee, M25.562 - Pain in left knee, , RESULT: MRI Ext Lower W/O Contrast Left [facility] VISIT NUMBER :[id number] Patient Name: Jamarcus Barbosa Date of : 1970 Date of Exam: 04-25-2024 Referring Physician: Tianna Jenkins [facility] [address] [place] [address] Exam: MR Knee (C-) CPT 04064 - Left Room Description: [facility] 3.0T History: Pain in the left knee, multiple surgeries previously, question medial meniscal tear. The patient reports mild to moderate bilateral knee pain for years with history of bilateral infections over 5 years ago. Technique: MRI of the left knee was performed without intravenous contrast. Comparison: None. Findings: Joint effusion: No joint effusion is present. Hoffa's fat pad is unremarkable. Menisci: The medial and lateral meniscus both appear normal. No meniscal tear is seen. Tendons and ligaments: The ACL and PCL are intact. The collateral ligaments are unremarkable. The iliotibial band is unremarkable. There are foci susceptibility artifact in the subcutaneous tissues anterior to the patellar tendon. The patellar tendon is thickened and demonstrates increased intermediate T2 signal both proximally and distally, compatible with tendinopathy. The distal quadriceps tendon is intact. Articular cartilage: There is thinning and irregularity of the articular cartilage on the central aspect of the patellar apex. The trochlea appears somewhat shallow with no focal trochlear chondral defect. There is mild peripheral chondral thinning in the weightbearing portion of the medial compartment. No discrete chondral defect in the medial or lateral compartments. Bone: The bone and bone marrow are normal. Impression: 1. No evidence of meniscal or cruciate ligament tear. 2. Patellar tendinopathy. 3. Mild degenerative change. Electronically Signed By: Ana Luisa Mendes MD Dictated By: Not on Staff , SANJAY RAWLS Dictated Date/Time: 04/25/24 10:00 a Reviewed By: Not on Staff , SANJAY RAWLS Signed By: Not on Staff , SANJAY RAWLS Signed Date/Time: 04/25/24 10:00 am Transcribed By: TS Transcribed Date/Time: 04/25/24 10:00 am Social History Social History Type Response Smoking Status Former smoker; Other : Quit 2014; entered on: 09/10/17 Sex Patient Care team information Care Team Personnel Name: Elvia Collins RN Position: [facility] RN Member Role: Primary Care Nurse Name: Macarena Lewis RN Position: [facility] RN Member Role: Primary Care Nurse Name: Mallory Lugo RN Position: [facility] RN Member Role: Primary Care Nurse Name: Carmen Gao RN Position: [facility] ED RN W/OE and Tasks Member Role: Primary Care Nurse Name: Dacia Evangelista RN Position: [facility] RN Member Role: Primary Care Nurse Name: Tracey Linares RN Position: [facility] AMB Nurse Member Role: Primary Care Nurse Name: Italia Ortega RN Position: [facility] RN Member Role: Primary Care Nurse Name: Catalina He RN Position: [facility] AMB Nurse Member Role: Primary Care Nurse Name: Cortez Golden RN Position: [facility] RN Member Role: Primary Care Nurse Name: Jessica Lantigua RN Position: [facility] SN RN Member Role: Primary Care Nurse Name: Catalina Pack RN Position: [facility] RN Member Role: Primary Care Nurse Name: Clifford Gerber RN Position: [facility] RN Member Role: Primary Care Nurse Name: Doris Butler RN Position: [facility] RN Member Role: Primary Care Nurse Name: Aziza Poole RN Position: [facility] RN Member Role: Primary Care Nurse Name: Katheryn Wu RN Position: [facility] RN Member Role: Primary Care Nurse Name: Doris Dee RN Position: [facility] RN Member Role: Primary Care Nurse Name: Janae Soto RN Position: [facility] RN Member Role: Primary Care Nurse Name: Daphney Echols LPN Position: [facility] RN Member Role: Primary Care Nurse Name: Nini Odonnell RN Position: [facility] RN Member Role: Primary Care Nurse Name: Jennifer Thakkar RN Position: [facility] RN Member Role: Primary Care Nurse Name: Hyun Ochoa RN Position: [facility] RN Member Role: Primary Care Nurse Name: Ruth Lay RN Position: [facility] RN Member Role: Primary Care Nurse Name: Ranjana Zavala RN Position: [facility] RN Member Role: Primary Care Nurse Name: Melvi Carter RN Position: [facility] OB RN Member Role: Primary Care Nurse Name: Jackson Rosen RN Position: [facility] RN Member Role: Primary Care Nurse Name: Clarissa Rodriguez RN Position: [facility] RN Supv Member Role: Primary Care Nurse Name: Ophelia Marie RN Position: [facility] SN RN Member Role: Primary Care Nurse Name: Nolvia Mendes RN Position: [facility] RN Member Role: Primary Care Nurse Name: Tyrone Germain RN Position: [facility] RN Member Role: Primary Care Nurse Name: Adi Rees RN Position: [facility] RN Member Role: Primary Care Nurse Name: Alonzo Esposito MD Position: [facility] Physician - Primary Care Member Role: PCP Address: Address: [address] [place] [id number]- Name: Cassidy Masters RN Position: [facility] RN Member Role: Primary Care Nurse Name: Juancarlos Valente RN Position: [facility] Hospital Hole Digger Member Role: Primary Care Nurse Name: Tran Wiseman RN Position: [facility] RN Member Role: Primary Care Nurse Care Team Related Persons Name: SYLVIA BARBOSA Address: home [address] [place] [address] Name: GAGE HUNT Address: [address] [place] [address] Name: JOCELYN HUNT Address: [address] [place] [address]
--- OUTSIDE RECORDS SUMMARY | 2024-05-24 04:33 | XMS_ITS | Continuity of Care Document ---
Author Organization [facility] Address [address] [place] [address]- Care Team Providers Care Finishing Operator Name Role Phone Alonzo Esposito DO Primary Care Physician Encounter [facility] [place]): 06/07/23 - 07/07/[address] [address] Attending Physician: Lori Patton Admitting Physician: Lori Patton Referring Physician: Lori Patton Referring Physician: Jonna Graham Allergies, Adverse Reactions, Alerts Substance Reaction Severity Status lisinopril Angioedema Active Shrimp Active Immunizations Given and Recorded Vaccine Date Status Refusal Reason [id number] 12y+ bivalent booster vax 11/03/22 Given influenza virus vaccine, inactivated 11/03/22 Give n influenza virus vaccine, inactivated 02/15/22 Give n influenza virus vaccine, inactivated 09/01/20 Give n influenza virus vaccine, inactivated 09/15/19 Give n influenza virus vaccine, inactivated 11/19/18 Give n influenza virus vaccine, inactivated 09/10/17 Give n influenza virus vaccine, inactivated 12/06/15 Give n SARS-CoV-2 mRNA ([id number]) vax 01/26/22 Given SARS-CoV-2 mRNA (joeovse-aiog-ogiia) vax 12/28/21 Given tetanus/diphtheria/pertussis, acel(Tdap) 03/29/19 Given tetanus/diphtheria/pertussis, acel(Tdap) 09/10/17 Given pneumococcal 23-valent vaccine 04/08/18 Recorded pneumococcal 23-valent vaccine 04/22/17 Recorded pneumococcal 23-valent vaccine 12/21/12 Given Medications acetaminophen-oxycodone 325 mg-10 mg oral tablet 1 tablet, By Mouth, Daily at bedtime, for 30 days, mass pat verified, # 30 tablet, 0 Refills, Acute07/16/23 14:15:00 EDT, 06/16/23 14:15:00 EDT, [id number], Partial fill upon patient requestif the prescription is for a schedule II opioid aditya... Start Date: 06/16/23 Stop Date: 07/16/23 Status: Ordered CPAP Machine See Instructions, # [...] appropriate, # 60 tablet, 0 Refills, Maintenance, 06/16/23 22:39:00 EDT, ER Tablet, [id number], Partial fill upon patient request if the prescription is for a schedule II... Start Date: 06/16/23 Stop Date: 07/16/23 Status: Ordered propranolol 20 mg oral tablet 2, tablet, By Mouth, 2 times a day, # 120 tablet, Refills 5, Maintenance, 04/19/23 20:48:00 EDT, Route to Pharmacy Electronically, [id number], 165, cm, 04/09/23 9:47:00 EDT, Height, 89.1, [...] 11 Refills, Maintenance, 02/22/23 8:17:00 EDT, [facility] #[id number], 166, cm, 01/18/23 15:56:00 EDT, [...] Active Obstructive sleep apnea Confirmed [facility], active care coordination Netta [facility] [phone] Confirmed Active Fatty infiltration of liver Confirmed Active Tubular adenoma of colon Confirmed Active 1history of this with surgical correction Social History Social History Type Response Smoking Status Former smoker; Other : Quit 2014; entered on: 09/10/17 Sex Patient Care team information Care Team Personnel Name: Macarena Lewis RN Position: [facility] RN Member Role: Primary Care Nurse Name: Mallory Lugo RN Position: S RN Member Role: Primary Care Nurse Name: Carmen Gao RN Position: S RN Member Role: Primary Care Nurse Name: Dacia Evangelista RN Position: [facility] RN Member Role: Primary Care Nurse Name: Tracey Linares RN Position: [facility] AMB Nurse Member Role: Primary Care Nurse Name: Italia Ortega RN Position: [facility] RN Member Role: Primary Care Nurse Name: Catalina He RN Position: [facility] AMB Nurse Member Role: Primary Care Nurse Name: Cortez Golden RN Position: [facility] RN Member Role: Primary Care Nurse Name: Jessica Lantigua RN Position: [facility] SN RN Member Role: Primary Care Nurse Name: Catalina Pack RN Position: [facility] SN RN Member Role: Primary Care Nurse Name: Clifford Gerber RN Position: [facility] RN Member Role: Primary Care Nurse Name: Peter Monahan RN Position: [facility] RN Member Role: Primary Care Nurse Name: Aziza Poole RN Position: [facility] RN Member Role: Primary Care Nurse Name: Monet Miller RN Position: [facility] RN Member Role: Primary Care Nurse Name: Katheryn Wu RN Position: [facility] RN Member Role: Primary Care Nurse Name: Doris Dee RN Position: [facility] RN Member Role: Primary Care Nurse Name: Janae Soto RN Position: [facility] RN Member Role: Primary Care Nurse Name: Hyun Ochoa RN Position: [facility] RN Member Role: Primary Care Nurse Name: Nancy Magana RN Position: [facility] RN Member Role: Primary Care Nurse Name: Ranjana Zavala RN Position: [facility] RN Member Role: Primary Care Nurse Name: Melvi Carter RN Position: [facility] OB RN Member Role: Primary Care Nurse Name: Jackson Rosen RN Position: [facility] RN Member Role: Primary Care Nurse Name: Clarissa Rodriguez RN Position: [facility] RN Supv Member Role: Primary Care Nurse Name: Ophelia Marie RN Position: [facility] RN Member Role: Primary Care Nurse Name: Nolvia Mendes RN Position: [facility] RN Member Role: Primary Care Nurse Name: Adi Rees RN Position: [facility] RN Member Role: Primary Care Nurse Name: Alonzo Esposito DO Position: [facility] Resident Member Role: PCP Address: Address: [address] [place] [address]- Name: Doroteo Morrow RN Position: [facility] RN Member Role: Primary Care Nurse Address: Address: [address] [place] [address]- Name: Cassidy Masters RN Position: [facility] RN Member Role: Primary Care Nurse Name: Juancarlos Valente RN Position: [facility] Hospital Pad Extraction Tender Member Role: Primary Care Nurse Care Team Related Persons Name: SYLVIA BARBOSA Address: [address] [place] [address] Name: GAGE HUNT Address: [address] [place] [address] Name: JOCELYN HUNT Address: home [address] [place] [address]
--- OUTSIDE RECORDS SUMMARY | 2024-05-24 04:33 | XMS_ITS | Continuity of Care Document ---
Author Organization [facility] Address [address] [place], [place] [address]d[place] ness, [address] [place] [address]- Care Team Providers Care Quality Assurance Clerk Name Role Phone Alonzo Esposito MD Primary Care Physician [phone] Encounter [facility] Date(s): 09/27/23 - 10/27/23 [facility] [address] [place] [address] Drive, [address] [place], [place] [address] Allergies, Adverse Reactions, Alerts [...] influenza virus vaccine, inactivated 12/06/15 Give n [id number] 12y+ bivalent booster vax 11/03/22 Given SARS-CoV-2 mRNA (gbyhcsd-kikj-lrwbd) vax 01/26/22 Given SARS-CoV-2 mRNA (dsliihz-lffz-adobw) vax 12/28/21 Given tetanus/diphtheria/pertussis, acel(Tdap) 03/29/19 Given tetanus/diphtheria/pertussis, acel(Tdap) 09/10/17 Given pneumococcal 23-valent vaccine 04/08/18 Recorded pneumococcal 23-valent vaccine 04/22/17 Recorded pneumococcal 23-valent vaccine 12/21/12 Given Medications aspirin 81 mg oral delayed release tablet 81 mg, By Mouth, Daily, # 30 tablet, Refills 11, Tot. Refills 11, Maintenance, 09/12/23 17:42:00 EST, Route to Pharmacy Electronically, [facility] [id number], For blister pack please., 166, cm, 09/12/23 13:54:00 EST, Height, 9... Start Date: 09/12/23 Status: Ordered atorvastatin 40 mg oral tablet 1 tablet = 40 mg, By Mouth, Daily, # 30 tablet, 11 Refills, Maintenance, 09/12/23 17:42:00 EST, Tablet, [facility] [id number], For blister pack please., 166, cm, 09/12/23 13:54:00 EST, Height, 93, kg, 09/06/23 16:15:00 EST, DrMicheal.. Start Date: 09/12/23 Stop Date: 09/06/24 Status: Ordered chlorhexidine topical 0.12% liquid See Instructions, SWISH AND SPIT DO NOT SWALLOW. USE 3-4 X/ DAY, # 473 mL, 0 Refills, Maintenance, 09/25/23 16:56:00 EST, [id number], 30, SWISH AND SPIT DO NOT SWALLOW. USE 3-4 X/ DAY, 166, cm, 09/21/23 11:32:00 EST, Height, 93, kg, 09/14/23 12:3... Start Date: 09/25/23 Status: Ordered docusate sodium 100 mg oral tablet 1 tablet = 100 mg, By Mouth, 2 times a day, PRN for constipation, # 60 tablet, 0 Refills, Maintenance, 09/27/23 13:27:00 EST, Tablet, [facility]/pharmacy #[id number], Partial [...] Maintenance, 09/12/23 17:44:00 EST, Route to Pharmacy Electronically,[facility] [id number], for... Start Date: 09/12/23 Status: Ordered gabapentin 300 mg oral capsule 300 mg, 1, capsule, By Mouth, 2 times a day, # 60 capsule, Refills 11, Tot. Refills 11, Maintenance, 09/12/23 17:42:00 EST, Route to Pharmacy Electronically, [facility] [id number], For blister pack please., 166, cm, 09/12/23 1... Start Date: 09/12/23 Status: Ordered nitroglycerin 0.4 mg sublingual tablet 1 tablet = 0.4 mg, Sublingual, Every 5 minutes, PRN Chest Pain, # 100 tablet, 0 Refills, Maintenance, 06/08/23 16:23:00 EDT, Tablet, [facility]/pharmacy #[id number], Partial [...] 0 Refills, Maintenance, 10/22/23 11:37:00 EST, Tablet, [facility]/pharmacy #[id number], Partial fill... Start Date: 10/22/23 Status: Ordered propranolol 20 mg oral tablet 2, tablet, By Mouth, 2 times a day, # 120 tablet, Refills 11, Tot. Refills 11, Maintenance, 09/12/23 17:42:00 EST, Route to Pharmacy Electronically, [facility] [id number], For blister pack please., 166, cm, 09/12/23 13:54:00 E... Start Date: 09/12/23 Status: Ordered risperiDONE 2 mg oral tablet 4 mg, 2, tablet, By Mouth, Daily at bedtime, Rx'd by psychiatry, # 60 tablet, Refills 11, Tot. Refills 11, Maintenance, 09/12/23 17:44:00 EST, Route to Pharmacy Electronically, [facility] [id number], for blister pack, 166, cm... Start Date: 09/12/23 Status: Ordered tiZANidine 2 mg oral tablet 2 mg, 1, tablet, By Mouth, 3 times a day, Can take two tablets at bedtime. Do not take at the same time as oxycodone., # 90 tablet, Refills 0, Tot. Refills 0, Maintenance, 09/26/23 10:38:00 EST, Route to Pharmacy Electronically, [facility]/pharmacy #[id number], Sp... Start Date: 09/26/23 Status: Ordered traZODone 100 mg oral tablet 50 mg, 0.5, tablet, By Mouth, Daily at bedtime, # 15 tablet, Refills 11, Tot. Refills 11, Maintenance, 09/12/23 17:44:00 EST, Route to Pharmacy Electronically, [facility] - [place], [place] - [id number], Partial fill upon patient request if the [...] Active Obstructive sleep apnea Confirmed [facility], active care coordination PADMINI [facility] [phone] Confirmed Active Fatty infiltration of liver Confirmed [...] Care Nurse Name: Mallory Lugo RN Position: [facility] RN Member Role: Primary Care Nurse Name: Carmen Gao RN Position: [facility] ED RN W/OE and Tasks Member Role: Primary Care Nurse Name: Dacia Evangelista RN Position: [facility] RN Member Role: Primary Care Nurse Name: Tracey Linares RN Position: [facility] AMB Nurse Member Role: Primary Care Nurse Name: Italia Ortega RN Position: [facility] RN Member Role: Primary Care Nurse Name: Catalina He RN Position: [facility] AMB Nurse Member Role: Primary Care Nurse Name: Jessica Lantigua RN Position: [facility] SN RN Member Role: Primary Care Nurse Name: Catalina Pack RN Position: [facility] SN RN Member Role: Primary Care Nurse Name: Clifford Gerber RN Position: [facility] RN Member Role: Primary Care Nurse Name: Doris Butler RN Position: [facility] RN Member Role: Primary Care Nurse Name: Aziza Poole RN Position: [facility] RN Member Role: Primary Care Nurse Name: Monet Miller RN Position: [facility] RN Member Role: Primary Care Nurse Name: Katheryn Wu RN Position: [facility] SN RN Member Role: Primary Care Nurse Name: Doris Dee RN Position: [facility] RN Member Role: Primary Care Nurse Name: Janae Soto RN Position: [facility] RN Member Role: Primary Care Nurse Name: Daphney Echols LPN Position: [facility] RN Member Role: Primary Care Nurse Name: Nini Odonnell RN Position: [facility] RN Member Role: Primary Care Nurse Name: Jennifer Thakkar RN Position: [facility] RN Member Role: Primary Care Nurse Name: Hyun Ochoa RN Position: [facility] RN Member Role: Primary Care Nurse Name: Yazmin Lay RN Position: [facility] RN Member Role: Primary Care Nurse Name: Ranjana Zavala RN Position: [facility] RN Member Role: Primary Care Nurse Name: Melvi Carter RN Position: [facility] OB RN Member Role: Primary Care Nurse Name: Jackson Rosen RN Position: [facility] RN Member Role: Primary Care Nurse Name: Clarissa Rodriguez RN Position: [facility] RN Supv Member Role: Primary Care Nurse Name: Ophelia Marie RN Position: [facility] RN Member Role: Primary Care Nurse Name: Nolvia Mendes RN Position: [facility] RN Member Role: Primary Care Nurse Name: Tyrone Germain RN Position: [facility] RN Member Role: Primary Care Nurse Name: Adi Rees RN Position: [facility] RN Member Role: Primary Care Nurse Name: Orlando Mcallister RN Position: [facility] RN Member Role: Primary Care Nurse Name: Alonzo Esposito MD Position: [facility] Physician - Primary Care Member Role: PCP Address: Address: [address] [place] [address]- Name: Doroteo Morrow RN Position: [facility] RN Member Role: Primary Care Nurse Address: Address: [address] [place] [address]- Name: Cassidy Masters RN Position: [facility] RN Member Role: Primary Care Nurse Name: Juancarlos Valente RN Position: [facility] Hospital Recoil [place] Winder Member Role: Primary Care Nurse Name: Tran Wiseman RN Position: [facility] RN Member Role: Primary Care Nurse Care Team Related Persons Name: BARBOSACIELO NEWBERRYTZA Address: [address] [place] [address] Name: GAGE HUNT Address: [address] [place] [address] Name: JOCELYN HUNT Address: [address] [place] [address]
--- OUTSIDE RECORDS SUMMARY | 2024-05-24 04:33 | XMS_ITS | Continuity of Care Document ---
Author Organization [facility] Address [address] [place], [place] [address] ness, [address] [place] [address]- Care Team Providers Care Deep Fat Fry Cook Name Role Phone Alonzo Esposito MD Primary Care Physician [phone] Encounter [facility] R [id number] Date(s): 10/01/23 - 10/08/23 [facility] [address] [place] [address] Drive, [address] [place], [place] [address] Attending Physician: Clint Puga MD Referring Physician: [...] influenza virus vaccine, inactivated 12/06/15 Give n [id number] 12y+ bivalent booster vax 11/03/22 Given SARS-CoV-2 mRNA ([id number]-[id number]) vax 01/26/22 Given SARS-CoV-2 mRNA ([id number]-pxse-nmodb) vax 12/28/21 Given tetanus/diphtheria/pertussis, acel(Tdap) 03/29/19 Given tetanus/diphtheria/pertussis, acel(Tdap) 09/10/17 Given pneumococcal 23-valent vaccine 04/08/18 Recorded pneumococcal 23-valent vaccine 04/22/17 Recorded pneumococcal 23-valent vaccine 12/21/12 Given Medications aspirin 81 mg oral delayed release tablet 81 mg, By Mouth, Daily, # 30 tablet, Refills 11, Tot. Refills 11, Maintenance, 09/12/23 17:42:00 EST, Route to Pharmacy Electronically, [facility] [id number], For blister pack please., 166, cm, 09/12/23 13:54:00 EST, Height, 9... Start Date: 09/12/23 Status: Ordered atorvastatin 40 mg oral tablet 1 tablet = 40 mg, By Mouth, Daily, # 30 tablet, 11 Refills, Maintenance, 09/12/23 17:42:00 EST, Tablet, [place], [place] - [id number], For blister pack please., 166, cm, 09/12/23 13:54:00 EST, Height, 93, kg, 09/06/23 16:15:00 EST, Start Date: 09/12/23 Stop Date: 09/06/24 Status: Ordered chlorhexidine topical 0.12% liquid See Instructions, SWISH AND SPIT DO NOT SWALLOW. USE 3-4 X/ DAY, # 473 mL, 0 Refills, Maintenance, 09/25/23 16:56:00 EST, [facility] STORE [id number], 30, SWISH AND SPIT DO NOT SWALLOW. USE 3-4 X/ DAY, 166, cm, 09/21/23 11:32:00 EST, Height, 93, kg, 09/14/23 12:3... Start Date: 09/25/23 Status: Ordered docusate sodium 100 mg oral tablet 1 tablet = 100 mg, By Mouth, 2 times a day, PRN for constipation, # 60 tablet, 0 Refills, Maintenance, 09/27/23 13:27:00 EST, Tablet, [facility]/pharmacy #[id number], Partial fill upon patient request if the prescription is for a schedule II opioid drug., 166, cm,... Start Date: 09/27/23 Status: Ordered FLUoxetine 20 mg oral capsule 60 mg, 3, capsule, By Mouth, Daily, TAKE 3 CAPSULES BY MOUTH EVERY DAY IN THE MORNING, # 90 capsule, Refills 11, Tot. Refills 11, Maintenance, 09/12/23 17:44:00 EST, Route to Pharmacy Electronically,[facility] [id number], for... Start Date: 09/12/23 Status: Ordered gabapentin 300 mg oral capsule 300 mg, 1, capsule, By Mouth, 2 times a day, # 60 capsule, Refills 11, Tot. Refills 11, Maintenance, 09/12/23 17:42:00 EST, Route to Pharmacy Electronically, [facility] [id number], For blister pack please., 166, cm, 09/12/23 1... Start Date: 09/12/23 Status: Ordered nitroglycerin 0.4 mg sublingual tablet 1 tablet = 0.4 mg, Sublingual, Every 5 minutes, PRN Chest Pain, # 100 tablet, 0 Refills, Maintenance, 06/08/23 16:23:00 EDT, [id number] Partial fill upon patient request if the prescription is for a schedule II opioid drug., 165, cm,... Start Date: 06/08/23 Status: Ordered oxyCODONE 15 mg oral tablet 1 tablet = 15 mg, By Mouth, Every 6 hours, PRN Pain , Severe, controlled substance agreement. adjusting dose back to previous dose., # 120 tablet, 0 Refills, Maintenance, 09/24/23 12:55:00 EST, [id number] Partial fill upon patient req... Start Date: 09/24/23 Status: Ordered propranolol 20 mg oral tablet 2, tablet, By Mouth, 2 times a day, # 120 tablet, Refills 11, Tot. Refills , Maintenance, 09/12/23 17:42:00 EST, Route to Pharmacy Electronically, [facility] [id number], For blister pack please., 166, cm, 09/12/23 13:54:00 E... Start Date: 09/12/23 Status: Ordered risperiDONE 2 mg oral tablet 4 mg, 2, tablet, By Mouth, Daily at bedtime, Rx'd by psychiatry, # 60 tablet, Refills 11, Tot. Refills 11, Maintenance, 09/12/23 17:44:00 EST, Route to Pharmacy Electronically, [facility] [id number], for blister pack, 166, cm... Start Date: 09/12/23 Status: Ordered tiZANidine 2 mg oral tablet 2 mg, 1, tablet, By Mouth, 3 times a day, Can take two tablets at bedtime. Do not take at the same time as oxycodone., # 90 tablet, Refills 0, Tot. Refills 0, Maintenance, 09/26/23 10:38:00 EST, Route to Pharmacy Electronically, [facility]/pharmacy #[id number], Sp... Start Date: 09/26/23 Status: Ordered traZODone 100 mg oral tablet 50 mg, 0.5, tablet, By Mouth, Daily at bedtime, # 15 tablet, Refills 11, Tot. Refills 11, Maintenance, 09/12/23 17:44:00 EST, Route to Pharmacy Electronically, [facility] [place], [place] - [id number], Partial fill upon patient request if the pr... Start Date: 09/12/23 Status: Ordered Ventolin HFA 108 mcg/inh inhalation aerosol with adapter 2 puffs, Inhalation, 4 times a day, PRN NEEDED FOR WHEEZING, # 18 Gm, 11 Refills, Maintenance, 02/22/23 8:17:00 EDT, [facility]/pharmacy #[id number], 166, cm, 01/18/23 15:56:00 [...] Active Obstructive sleep apnea Confirmed Active Health nursing home, active care coordination PADMINI Mata [phone] Confirmed Active Fatty infiltration of liver Confirmed Active Tubular adenoma of colon Confirmed Active 1history of this with surgical correction Vital Signs Most recent to oldest [Reference Range]: 1 Height 166 cm (10/01/23 1:58 PM) Weight 93 kg (10/01/23 1:58 PM) Body Mass Index [18.5-24.99 kg/m2] 33.75 kg/m2 *>HHI* (10/01/23 1:58 PM) Weight Obtained Via Patient/family state d (10/01/23 1:58 PM) Social History Social History Type Response Smoking Status Former smoker; Other : Quit 2014; entered on: 09/10/17 Sex Patient Care team information Care Team Personnel Name: Elvia Collins RN Position: [facility] RN Member Role: Primary Care Nurse Name: Macarena Lewis RN Position: [facility] RN Member Role: Primary Care Nurse Name: Mallory Lugo RN Position: [facility] RN Member Role: Primary Care Nurse Name: Carmen Gao RN Position: [facility] ED RN W/OE and Tasks Member Role: Primary Care Nurse Name: Dacia Evangelista RN Position: [facility] RN Member Role: Primary Care Nurse Name: Tracey Linares RN Position: [facility] AMB Nurse Member Role: Primary Care Nurse Name: Italia Ortega RN Position: [facility] RN Member Role: Primary Care Nurse Name: Catalina He RN Position: [facility] AMB Nurse Member Role: Primary Care Nurse Name: Jessica Lantigua RN Position: [facility] SN RN Member Role: Primary Care Nurse Name: Catalina Pack RN Position: [facility] SN RN Member Role: Primary Care Nurse Name: Clifford Gerber RN Position: [facility] RN Member Role: Primary Care Nurse Name: Doris Butler RN Position: [facility] RN Member Role: Primary Care Nurse Name: Aziza Poole RN Position: [facility] RN Member Role: Primary Care Nurse Name: Monet Miller RN Position: [facility] RN Member Role: Primary Care Nurse Name: Katheryn Wu RN Position: [facility] SN RN Member Role: Primary Care Nurse Name: Doris Dee RN Position: [facility] RN Member Role: Primary Care Nurse Name: Janae Soto RN Position: [facility] RN Member Role: Primary Care Nurse Name: Daphney Echols LPN Position: [facility] RN Member Role: Primary Care Nurse Name: Nini Odonnell RN Position: [facility] RN Member Role: Primary Care Nurse Name: Jennifer Thakkar RN Position: [facility] RN Member Role: Primary Care Nurse Name: Hyun Ochoa RN Position: [facility] RN Member Role: Primary Care Nurse Name: Yazmin Lay RN Position: [facility] RN Member Role: Primary Care Nurse Name: Nancy Magana RN Position: [facility] RN Member Role: Primary Care Nurse Name: Ranjana Zavala RN Position: [facility] RN Member Role: Primary Care Nurse Name: Melvi Carter RN Position: [facility] OB RN Member Role: Primary Care Nurse Name: Jackson Rosen RN Position: [facility] RN Member Role: Primary Care Nurse Name: Clarissa Rodriguez RN Position: [facility] RN Supv Member Role: Primary Care Nurse Name: Ophelia Marie RN Position: [facility] RN Member Role: Primary Care Nurse Name: Nolvia Mendes RN Position: [facility] RN Member Role: Primary Care Nurse Name: Tyrone Germain RN Position: [facility] RN Member Role: Primary Care Nurse Name: Adi Rees RN Position: [facility] RN Member Role: Primary Care Nurse Name: Orlando Mcallister RN Position: [facility] RN Member Role: Primary Care Nurse Name: Alisa Mcallister RN Position: [facility] RN Member Role: Primary Care Nurse Name: Alonzo Esposito MD Position: [facility] Physician - Primary Care Member Role: PCP Address: Address: [address] [place] [address]- [place] Name: Doroteo Morrow RN Position: [facility] RN Member Role: Primary Care Nurse Address: Address: [address] [place] [address]- Name: Cassidy Masters RN Position: [facility] RN Member Role: Primary Care Nurse Name: Juancarlos Valente RN Position: [facility] Hospital Wax Pumper Member Role: Primary Care Nurse Name: Tran Wiseman RN Position: [facility] RN Member Role: Primary Care Nurse Care Team Related Persons Name: CIELO BARBOSATZA Address: home [address] [place] [address] Name: GAGE HUNT Address: home [address] [place] [address] Name: JOCELYN HUNT Address: home [address] [place] [address]
--- OUTSIDE RECORDS SUMMARY | 2024-05-24 04:33 | XMS_ITS | Continuity of Care Document ---
Author Organization [facility] Address [address] [place] [address]- Care Team Providers Care Scanning Coordinator Name Role Phone Dawna Hernandez MD Primary Care Physician [phone] Encounter [facility] [place] [place] Date(s): 01/05/23 - 02/04/23 [facility] [address] [place] [address]- Allergies, Adverse Reactions, Alerts Substance Reaction Severity Status lisinopril Angioedema Active Shrimp Active Immunizations Given and Recorded Vaccine Date Status Refusal Reason [id number] 12y+ bivalent booster vax 11/03/22 Given influenza virus vaccine, inactivated 11/03/22 Give n influenza virus vaccine, inactivated 02/15/22 Give n influenza virus vaccine, inactivated 09/01/20 Give n influenza virus vaccine, inactivated 09/15/19 Give n influenza virus vaccine, inactivated 11/19/18 Give n influenza virus vaccine, inactivated 09/10/17 Give n influenza virus vaccine, inactivated 12/06/15 Give n SARS-CoV-2 mRNA ([id number]-rilo-giqam) vax 01/26/22 Given SARS-CoV-2 mRNA (wmvrvuq-dagm-mizbi) vax 12/28/21 Given tetanus/diphtheria/pertussis, acel(Tdap) 03/29/19 Given [...] 3 Refills, Maintenance, 05/11/22 14:22:00 EDT, Tablet, [facility]/pharmacy #[id number], Partial fill [...] tablet, 1 Refills, Maintenance, 04/05/22 7:53:00 EDT, [facility]/pharmacy #[id number], 165, cm, 02/15/22 10:35:00 EDT, Height, 90.7, kg, 02/06/22 19:49:00 EDT, Dry Weight Start Date: 04/05/22 Status: Ordered Colace sodium 100 mg oral capsule 100 mg, 1, capsule, By Mouth, 2 times a day, PRN, # 20 capsule, Refills 0, Tot. Refills 0, Maintenance, for constipation, 09/22/22 9:53:00 EST, [facility], [facility] 0 Refills, Maintenance, 01/26/23 13:08:00 EDT, Tablet, [facility] #[id number], Partial fill upon patient request if the [...] 01/31/23 21:34:00 EDT, Route to Pharmacy Electronically, [facility]/pharmacy #[id number], Partial fill upon patientrequest if the prescription is for a schedule II op... Start Date: 01/31/23 Stop Date: 02/07/23 Status: Ordered gabapentin 800 mg oral tablet 1 tablet = 800 mg, By Mouth, 3 times a day, # 90 tablet, 11 Refills, Maintenance, 06/15/22 17:40:00EDT, Tablet, [facility]/pharmacy #[id number], Partial fill upon patient request if the prescription is for a schedule II opioid drug., 165, cm, 06/15/22 14:29:00 ED... Start Date: 06/15/22 Status: Ordered ibuprofen 600 mg oral tablet 600 mg, 1, tablet, By Mouth, 3 times a day, # 90 tablet, Refills 0, Tot. Refills 0, Maintenance, 09/06/22 21:10:00 EST, [facility] patch, 0 Refills, Maintenance, 07/20/22 15:26:00 EDT, [facility] [id number], 10, APPLY 1 PATCH DAILY NEEDED FOR MODERATE PAIN..REMOVE AFTER 12... Start Date: 07/20/22 Status: Ordered nitroglycerin 0.4 mg sublingual tablet 1 tablet = 0.4 mg, Sublingual, Every 5 minutes, PRN Chest Pain, # 100 tablet, 0 Refills, Maintenance, 11/06/22 13:52:00 EST, Tablet, [facility]/pharmacy #[id number], Partial fill upon patient request if the prescription is for a schedule II opioid drug., 175, cm,... Start Date: 11/06/22 Status: Ordered omeprazole 20 mg oral enteric coated capsule 1 capsule = 20 mg, By Mouth, Daily, # 30 capsule, 1 Refills, Maintenance, 01/04/23 12:40:00 EDT, ECCapsule, [facility]/pharmacy #[id number], Partial fill [...] Refills, Maintenance, 01/22/23 15:38:00 EDT, ER Tablet, [facility]/pharmacy #[id number], Partial fill [...] tablet, Refills 5, Route to Pharmacy Electronically, [id number], 166, cm, 12/28/21 10:33:00 EDT, Height, 91.9, [...] EST, Supply Start Date: 12/12/22 Status: Ordered News Analyst News Analyst, See Instructions, # 1 each, Refills [...] each, 0 Refills, Maintenance, 12/12/22 12:14:00 EST, [facility] [id number], 175, cm, 11/15/22 9:07:00 EST, Height, 88.2, [...] Confirmed Active [facility], active care coordination Netta Nancy [facility] [phone] Confirmed Active Fatty infiltration of liver Confirmed Active Tubular adenoma of colon Confirmed Active 1history of this with surgical correction Social History Social History Type Response Smoking Status Former smoker; Other : Quit 2014; entered on: 09/10/17 Sex Patient Care team information Care Team Personnel Name: Macarena Lewis RN Position: [facility] RN Member Role: Primary Care Nurse Name: Mallory Lugo RN Position: [facility] RN Member Role: Primary Care Nurse Name: Carmen Gao RN Position: [facility] RN Member Role: Primary Care Nurse Name: Dacia Evangelista RN Position: [facility] RN Member Role: Primary Care Nurse Name: Tracey Linares RN Position: [facility] PCO RN Member Role: Primary Care Nurse Name: Italia Ortega RN Position: [facility] RN Member Role: Primary Care Nurse Name: Catalina He RN Position: [facility] AMB Nurse Member Role: Primary Care Nurse Name: Cortez Golden RN Position: [facility] RN Member Role: Primary Care Nurse Name: Jessica Lantigua RN Position: [facility] RN Member Role: Primary Care Nurse Name: Catalina Pack RN Position: [facility] SN RN Member Role: Primary Care Nurse Name: Clifford Gerber RN Position: [facility] RN Member Role: Primary Care Nurse Name: Peter Monahan RN Position: [facility] RN Member Role: Primary Care Nurse Name: Aziza Poole RN Position: [facility] RN Member Role: Primary Care Nurse Name: Monet Miller RN Position: [facility] RN Member Role: Primary Care Nurse Name: Katheryn Wu RN Position: [facility] RN Member Role: Primary Care Nurse Name: Doris Dee RN Position: [facility] RN Member Role: Primary Care Nurse Name: Janae Soto RN Position: [facility] RN Member Role: Primary Care Nurse Name: Hyun Ochoa RN Position: [facility] RN Member Role: Primary Care Nurse Name: Nancy Magana RN Position: [facility] RN Member Role: Primary Care Nurse Name: Ranjana Zavala RN Position: [facility] RN Member Role: Primary Care Nurse Name: Melvi Carter RN Position: [facility] OB RN Member Role: Primary Care Nurse Name: Jackson Rosen RN Position: [facility] RN Member Role: Primary Care Nurse Name: Clarissa Rodriguez RN Position: [facility] RN Supv Member Role: Primary Care Nurse Name: Ophelia Marie RN Position: [facility] RN Member Role: Primary Care Nurse Name: Nolvia Mendes RN Position: [facility] RN Member Role: Primary Care Nurse Name: Adi Rees RN Position: [facility] RN Member Role: Primary Care Nurse Name: Doroteo Morrow RN Position: [facility] RN Member Role: Primary Care Nurse Address: Address: [address] [place] [address]- [place] Name: Cassidy Masters RN Position: [facility] RN Member Role: Primary Care Nurse Name: Juancarlos Valente RN Position: [facility] Sandwich Counter Attendant Member Role: Primary Care Nurse Name: Dawna Hernandez MD Position: [facility] Primary Care Physician Member Role: PCP Address: Address: [address] [place] [address]- Care Team Related Persons Name: YSLVIA BARBOSA Address: [address] [place] [address] Name: GAGE HUNT Address: [address] [place] [address] Name: JOCELYN HUNT Address: home [address] [place] [address]
--- OUTSIDE RECORDS SUMMARY | 2024-05-24 04:33 | XMS_ITS | Continuity of Care Document ---
Author Organization [facility] Address [address] [place] [address]- Care Team Providers Care Booker Name Role Phone Dawna Hernandez MD Primary Care Physician [phone] Encounter [facility] Date(s): 11/03/22 - 12/31/[address] [address] Attending Physician: Dawna Hernandez MD Admitting Physician: Dawna Hernandez MD Referring Physician: Dawna Hernandez MD Allergies, Adverse Reactions, Alerts Substance Reaction Severity Status lisinopril Angioedema Active Shrimp Active Immunizations Given and Recorded Vaccine Date Status Refusal Reason [id number] 12y+ bivalent booster vax 11/03/22 Given influenza virus vaccine, inactivated 11/03/22 Give n influenza virus vaccine, inactivated 02/15/22 Give n influenza virus vaccine, inactivated 09/01/20 Give n influenza virus vaccine, inactivated 09/15/19 Give n influenza virus vaccine, inactivated 11/19/18 Give n influenza virus vaccine, inactivated 09/10/17 Give n influenza virus vaccine, inactivated 12/06/15 Give n SARS-CoV-2 mRNA ([id number]) vax 01/26/22 Given SARS-CoV-2 mRNA ([id number]-qndb-drcox) vax 12/28/21 Given tetanus/diphtheria/pertussis, acel(Tdap) 03/29/19 Given [...] 3 Refills, Maintenance, 05/11/22 14:22:00 EDT, Tablet, [facility]/pharmacy #[id number], Partial fill [...] tablet, 1 Refills, Maintenance, 04/05/22 7:53:00 EDT, [facility]/pharmacy #[id number], 165, cm, 02/15/22 10:35:00 EDT, Height, 90.7, kg, 02/06/22 19:49:00 EDT, Dry Weight Start Date: 04/05/22 Status: Ordered Colace sodium 100 mg oral capsule 100 mg, 1, capsule, By Mouth, 2 times a day, PRN, # 20 capsule, Refills 0, Tot. Refills 0, Maintenance, for constipation, 09/22/22 9:53:00 EST, Route to Pharmacy Electronically, [facility]/pharmacy [...] tablet, 11 Refills, Maintenance, 06/15/22 17:40:00EDT, Tablet, [facility]/pharmacy #[id number], Partial fill upon patient request if the prescription is for a schedule II opioid drug., 165, cm, 06/15/22 14:29:00 ED... Start Date: 06/15/22 Status: Ordered ibuprofen 600 mg oral tablet 600 mg, 1, tablet, By Mouth, 3 times a day, # 90 tablet, Refills 0, Tot. Refills 0, Maintenance, 09/06/22 21:10:00 EST, Route to Pharmacy Electronically, [facility]/pharmacy #[id number], Partial fill upon patientrequest if [...] patch, 0 Refills, Maintenance, 07/20/22 15:26:00 EDT, [id number], 10, APPLY 1 PATCH DAILY NEEDED FOR MODERATE PAIN..REMOVE AFTER 12... Start Date: 07/20/22 Status: Ordered nitroglycerin 0.4 mg sublingual tablet 1 tablet = 0.4 mg, Sublingual, Every 5 minutes, PRN Chest Pain, # 100 tablet, 0 Refills, Maintenance, 11/06/22 13:52:00 EST, Tablet, [facility]/pharmacy #[id number], Partial fill upon patient request if the prescription is for a schedule II opioid drug., 175, cm,... Start Date: 11/06/22 Status: Ordered omeprazole 20 mg oral enteric coated capsule 1 capsule = 20 mg, By Mouth, Daily, # 30 capsule, 1 Refills, Maintenance, 12/01/22 11:59:00 EST, ECCapsule, [facility]/pharmacy #[id number], Partial fill upon patient request if the prescription is for a schedule II opioid drug., 175, cm, 11/15/22 9:07:00 EST, He... Start Date: 12/01/22 Status: Ordered OxyCONTIN 15 mg oral tablet, extended release 1 tablet = 15 mg, By Mouth, Every 12 hours, dx: M54.[address] oxycodone, # 60 tablet, 0 Refills, Maintenance, 12/01/22 12:02:00 EST, ER Tablet, [facility]/pharmacy #[id number], Partial fill upon [...] tablet, Refills 5, Route to Pharmacy Electronically, [id number], 166, cm, 12/28/21 10:33:00 EDT, Height, 91.9, [...] EST, Supply Start Date: 12/12/22 Status: Ordered Director Of Scientific Research Director Of Scientific Research, See Instructions, # 1 each, Refills 0, [...] each, 0 Refills, Maintenance, 12/12/22 12:14:00 EST, [id number], 175, cm, 11/15/22 9:07:00 EST, Height, 88.2, [...] [facility] Netta Cruz [facility] [phone] Confirmed Active Fatty infiltration of liver Confirmed [...] Care Nurse Name: Dacia Evangelista RN Position: [facility] RN Member Role: Primary Care Nurse Name: Tracey Linares RN Position: [facility] PCO RN Member Role: Primary Care Nurse Name: Italia Ortega RN Position: [facility] RN Member Role: Primary Care Nurse Name: Catalina He RN Position: [facility] AMB Nurse Member Role: Primary Care Nurse Name: Cortez Golden RN Position: [facility] RN Member Role: Primary Care Nurse Name: Jessica Lantigua RN Position: [facility] SN RN Member Role: Primary Care Nurse Name: Clifford Gerber RN Position: [facility] RN Member Role: Primary Care Nurse Name: Peter Monahan RN Position: [facility] RN Member Role: Primary Care Nurse Name: Aziza Poole RN Position: [facility] RN Member Role: Primary Care Nurse Name: Monet Miller RN Position: [facility] RN Member Role: Primary Care Nurse Name: Katheryn Wu RN Position: [facility] RN Member Role: Primary Care Nurse Name: Doris Dee RN Position: [facility] RN Member Role: Primary Care Nurse Name: Janae Soto RN Position: [facility] RN Member Role: Primary Care Nurse Name: Hyun Ochoa RN Position: [facility] RN Member Role: Primary Care Nurse Name: Nancy Magana RN Position: [facility] RN Member Role: Primary Care Nurse Name: Ranjana Zavala RN Position: [facility] RN Member Role: Primary Care Nurse Name: Melvi Carter RN Position: [facility] OB RN Member Role: Primary Care Nurse Name: Jackson Rosen RN Position: [facility] RN Member Role: Primary Care Nurse Name: Clarissa Rodriguez RN Position: [facility] RN Suptasha Member Role: Primary Care Nurse Name: Ophelia Marie RN Position: [facility] RN Member Role: Primary Care Nurse Name: Nolvia Mendes RN Position: [facility] RN Member Role: Primary Care Nurse Name: Adi Rees RN Position: [facility] RN Member Role: Primary Care Nurse Name: Catalina Torres RN Position: [facility] RN Member Role: Primary Care Nurse Name: Doroteo Morrow RN Position: [facility] RN Member Role: Primary Care Nurse Address: Address: [address] [place] [address] Name: Cassidy Masters RN Position: [facility] RN Member Role: Primary Care Nurse Name: Juancarlos Valente RN Position: [facility] Hospital Tax Manager Member Role: Primary Care Nurse Name: Dawna Hernandez MD Position: [facility] Primary Care Physician Member Role: PCP Address: Address: [address] [place] [address]- [place] Care Team Related Persons Name: SYLVIA BARBOSA Address: home [address] [place] [id number] Name: GAGE HUNT Address: [address] [place] [address] Name: JOCELYN HUNT Address: home [address] [place] [address]
--- OUTSIDE RECORDS SUMMARY | 2024-05-24 04:34 | XMS_ITS | Continuity of Care Document ---
Author Organization [facility] Address [address] [place] [address]- Care Team Providers Care Synchro Assembler Name Role Phone Alonzo Esposito MD Primary Care Physician Encounter [facility] Date(s): 07/16/23 - 08/15/[address] [address]- Allergies, Adverse Reactions, Alerts Substance Reaction Severity [...] influenza virus vaccine, inactivated 12/06/15 Give n [id number] 12y+ bivalent booster vax 11/03/22 Given SARS-CoV-2 mRNA ([id number]-jgro-nfxhi) vax 01/26/22 Given SARS-CoV-2 mRNA (yoveuxx-cstq-qpkni) vax 12/28/21 Given tetanus/diphtheria/pertussis, acel(Tdap) 03/29/19 Given [...] EDT, Route to Pharmacy Electronically, [id number], 165, cm, 04/09/23 9:47:00 EDT, Height, 89.1, [...] Active Health custodial, active care coordination PADMINI Nancy [facility] [phone] Confirmed Active Fatty infiltration of liver Confirmed [...] Care Nurse Name: Carmen Gao RN Position: [facility] RN Member Role: Primary Care Nurse Name: Dacia Evangelista RN Position: [facility] RN Member Role: Primary Care Nurse Name: Tracey Linares RN Position: [facility] AMB Nurse Member Role: Primary Care Nurse Name: Italia Ortega RN Position: [facility] RN Member Role: Primary Care Nurse Name: Catalina He RN Position: [facility] AMB Nurse Member Role: Primary Care Nurse Name: Jessica Lantigua RN Position: [facility] SN RN Member Role: Primary Care Nurse Name: Catalina Pack RN Position: [facility] SN RN Member Role: Primary Care Nurse Name: Clifford Gerber RN Position: [facility] RN Member Role: Primary Care Nurse Name: Aziza Poole RN Position: [facility] RN Member Role: Primary Care Nurse Name: Monet Miller RN Position: [facility] RN Member Role: Primary Care Nurse Name: Katheryn Wu RN Position: [facility] RN Member Role: Primary Care Nurse Name: Doris Dee RN Position: [facility] RN Member Role: Primary Care Nurse Name: Janae Soto RN Position: [facility] RN Member Role: Primary Care Nurse Name: Hyun Ochoa RN Position: [facility] RN Member Role: Primary Care Nurse Name: Nancy Magana RN Position: [facility] RN Member Role: Primary Care Nurse Name: Ranjana Zavala RN Position: [facility] RN Member Role: Primary Care Nurse Name: Melvi Carter RN Position: [facility] OB RN Member Role: Primary Care Nurse Name: Jackson Rosen RN Position: [facility] RN Member Role: Primary Care Nurse Name: Clarissa Rodriguez RN Position: [facility] RN Supv Member Role: Primary Care Nurse Name: Ophelia Marie RN Position: [facility] RN Member Role: Primary Care Nurse Name: Nolvia Mendes RN Position: [facility] RN Member Role: Primary Care Nurse Name: Adi Rees RN Position: [facility] RN Member Role: Primary Care Nurse Name: Alonzo Esposito MD Position: [facility] Physician - Primary Care Member Role: PCP Address: Address: [address] [place] [id number] Name: Doroteo Morrow RN Position: [facility] RN Member Role: Primary Care Nurse Address: Address: [address] [place] [address]- Name: Cassidy Masters RN Position: [facility] RN Member Role: Primary Care Nurse Name: Juancarlos Valente RN Position: [facility] Hospital Cooperative Extension Agent Member Role: Primary Care Nurse Care Team Related Persons Name: SYLVIA BARBOSA Address: [address] [place] [address] Name: GAGE HUNT Address: [address] [place] [address] Name: JOCELYN HUNT Address: [address] [place] [address]
--- OUTSIDE RECORDS SUMMARY | 2024-05-24 04:34 | XMS_ITS | Continuity of Care Document ---
Author Organization [facility] Address [address] [place] [address]- Care Team Providers Care Live In Housekeeper Name Role Phone Dawna Hernandez MD Primary Care Physician [phone] Encounter [facility] Date(s): 10/17/22 - 12/24/[address] [address] Encounter Diagnosis Low back pain, unspecified(Final) - Discharge Disposition: A-D/C Home Attending Physician: Dawna Hernandez MD Admitting Physician: Dawna Hernandez MD Referring Physician: Dawna Hernandez MD Allergies, Adverse Reactions, Alerts Substance Reaction Severity Status lisinopril Angioedema Active Shrimp Active Immunizations Given and Recorded Vaccine Date Status Refusal Reason [id number] 12y+ bivalent booster vax 11/03/22 Given influenza virus vaccine, inactivated 11/03/22 Give n influenza virus vaccine, inactivated 02/15/22 Give n influenza virus vaccine, inactivated 09/01/20 Give n influenza virus vaccine, inactivated 09/15/19 Give n influenza virus vaccine, inactivated 11/19/18 Give n influenza virus vaccine, inactivated 09/10/17 Give n influenza virus vaccine, inactivated 12/06/15 Give n SARS-CoV-2 mRNA ([id number]) vax 01/26/22 Given SARS-CoV-2 mRNA (sowlkog-qfih-castl) vax 12/28/21 Given tetanus/diphtheria/pertussis, acel(Tdap) 03/29/19 Given [...] 3 Refills, Maintenance, 05/11/22 14:22:00 EDT, Tablet, [facility]/pharmacy #[id number], Partial fill upon [...] tablet, 1 Refills, Maintenance, 04/05/22 7:53:00 EDT, [facility]/pharmacy #[id number], 165, cm, 02/15/22 10:35:00 EDT, Height, 90.7, kg, 02/06/22 19:49:00 EDT, Dry Weight Start Date: 04/05/22 Status: Ordered Colace sodium 100 mg oral capsule 100 mg, 1, capsule, By Mouth, 2 times a day, PRN, # 20 capsule, Refills 0, Tot. Refills 0, Maintenance, for constipation, 09/22/22 9:53:00 EST, Route to Pharmacy Electronically, [facility]/pharmacy #[id number], Partial fill upon [...] tablet, 11 Refills, Maintenance, 06/15/22 17:40:00EDT, Tablet, [facility]/pharmacy #[id number], Partial fill upon patient request if the prescription is for a schedule II opioid drug., 165, cm, 06/15/22 14:29:00 ED... Start Date: 06/15/22 Status: Ordered ibuprofen 600 mg oral tablet 600 mg, 1, tablet, By Mouth, 3 times a day, # 90 tablet, Refills 0, Tot. Refills 0, Maintenance, 09/06/22 21:10:00 EST, Route to Pharmacy Electronically, [facility]/pharmacy #[id number], Partial fill upon patientrequest [...] patch, 0 Refills, Maintenance, 07/20/22 15:26:00 EDT, [facility] 00[facility], 10, APPLY 1 PATCH DAILY NEEDED FOR MODERATE PAIN..REMOVE AFTER 12... Start Date: 07/20/22 Status: Ordered nitroglycerin 0.4 mg sublingual tablet 1 tablet = 0.4 mg, Sublingual, Every 5 minutes, PRN Chest Pain, # 100 tablet, 0 Refills, Maintenance, 11/06/22 13:52:00 EST, Tablet, [facility]/pharmacy #[id number], Partial fill upon patient request if the prescription is for a schedule II opioid drug., 175, cm,... Start Date: 11/06/22 Status: Ordered omeprazole 20 mg oral enteric coated capsule 1 capsule = 20 mg, By Mouth, Daily, # 30 capsule, 1 Refills, Maintenance, 12/01/22 11:59:00 EST, ECCapsule, [facility]/pharmacy #[id number], Partial fill upon [...] Refills, Maintenance, 12/01/22 12:02:00 EST, ER Tablet, [facility]/pharmacy #[id number], Partial fill upon [...] tablet, Refills 5, Route to Pharmacy Electronically, [id number], 166, cm, 12/28/21 10:33:00 EDT, Height, 91.9, [...] EST, Supply Start Date: 12/12/22 Status: Ordered Welt Trimming Machine Operator Welt Trimming Machine Operator, See Instructions, # 1 each, Refills [...] each, 0 Refills, Maintenance, 12/12/22 12:14:00 EST, [facility], 175, cm, 11/15/22 9:07:00 EST, Height, 88.2, [...] Active Obstructive sleep apnea Confirmed Active Health prison, active care coordination Netta Nancy [facility] [phone] Confirmed Active Fatty infiltration of liver Confirmed Active Tubular adenoma of colon Confirmed Active Social History Social History Type Response Smoking Status Former smoker; Other : Quit 2014; entered on: 09/10/17 Sex Patient Care team information Care Team Personnel Name: Macarena Lweis RN Position: S RN Member Role: Primary Care Nurse Name: Mallory Lugo RN Position: S RN Member Role: Primary Care Nurse Name: Carmen Gao RN Position: [facility] RN Member Role: Primary Care Nurse Name: Dacia Evangelista RN Position: [facility] RN Member Role: Primary Care Nurse Name: Tracey Linares RN Position: [facility] PCO RN Member Role: Primary Care Nurse Name: Italia Ortega RN Position: [facility] RN Member Role: Primary Care Nurse Name: Catalina He RN Position: [facility] AMB Nurse Member Role: Primary Care Nurse Name: Cortez Golden RN Position: [facility] RN Member Role: Primary Care Nurse Name: Jessica Lantigua RN Position: [facility] SN RN Member Role: Primary Care Nurse Name: Clifford Gerber RN Position: [facility] RN Member Role: Primary Care Nurse Name: Peter Monahan RN Position: [facility] RN Member Role: Primary Care Nurse Name: Aziza Poole RN Position: [facility] RN Member Role: Primary Care Nurse Name: Monet Miller RN Position: [facility] RN Member Role: Primary Care Nurse Name: Katheryn Wu RN Position: [facility] RN Member Role: Primary Care Nurse Name: Doris Dee RN Position: [facility] RN Member Role: Primary Care Nurse Name: Janae Soto RN Position: [facility] RN Member Role: Primary Care Nurse Name: Hyun Ochoa RN Position: [facility] RN Member Role: Primary Care Nurse Name: Nancy Magana RN Position: [facility] RN Member Role: Primary Care Nurse Name: Ranjana Zavala RN Position: [facility] RN Member Role: Primary Care Nurse Name: Melvi Carter RN Position: [facility] OB RN Member Role: Primary Care Nurse Name: Jackson Rosen RN Position: [facility] RN Member Role: Primary Care Nurse Name: Clarissa Rodriguez RN Position: [facility] RN Suptasha Member Role: Primary Care Nurse Name: Ophelia Marie RN Position: [facility] RN Member Role: Primary Care Nurse Name: Nolvia Mendes RN Position: [facility] RN Member Role: Primary Care Nurse Name: Adi Rees RN Position: [facility] RN Member Role: Primary Care Nurse Name: Catalina Torres RN Position: [facility] RN Member Role: Primary Care Nurse Name: Doroteo Morrow RN Position: [facility] RN Member Role: Primary Care Nurse Address: Address: [address] [place] [id number]- Name: Sonam GOLDEN, Cassidy Trivedi Position: [facility] RN Member Role: Primary Care Nurse Name: Juancarlos Valente RN Position: [facility] Hospital Animal Care Provider Member Role: Primary Care Nurse Name: Dawna Hernandez MD Position: [facility] Primary Care Physician Member Role: PCP Address: Address: [address] [place] [id number]- Care Team Related Persons Name: SYLVIA BARBOSA Address: home [address] [place] [id number] Name: GAGE HUNT Address: [address] [place] [address] Name: JOCELYN HUNT Address: home [address] [place] [address]
--- OUTSIDE RECORDS SUMMARY | 2024-05-24 04:34 | XMS_ITS | Continuity of Care Document ---
Author Organization [facility] Address [address] [place] [address]- Care Team Providers Care Commercial Floor Covering Installer Name Role Phone Dawna Hernandez MD Primary Care Physician Encounter [facility] [place] Date(s): 09/06/22 - 09/06/[address] [address]- Discharge Disposition: A-D/C Home Attending Physician: Ángel [...] vaccine, inactivated 12/06/15 Give n SARS-CoV-2 mRNA ([id number]-jcnmt) vax 01/26/22 Given SARS-CoV-2 mRNA (kxbbehu-ulkm-ysqjw) vax 12/28/21 Given tetanus/diphtheria/pertussis, acel(Tdap) 03/29/19 Given tetanus/diphtheria/pertussis, acel(Tdap) 09/10/17 Given pneumococcal 23-valent vaccine 04/08/18 Recorded pneumococcal 23-valent vaccine 04/22/17 Recorded pneumococcal 23-valent vaccine 12/21/12 Given Medications albuterol CFC free 90 mcg/inh inhalation aerosol 2, puffs, Inhalation, Every 6 hours, PRN, # 1 each, Refills 6, Tot. Refills 6, Maintenance, 08/07/22 17:48:00 EDT, Aerosol, Route to Pharmacy Electronically, [id number], [facility]/pharmacy #[id number], 165, cm, 08/02/22 5:50:00 [...] Dry Weight Start Date: 04/05/22 Status: Ordered CPAP Machine See Instructions, # 1 units, Refills 0, Tot. Refills 0, Maintenance, CPAP of 8 cm of H2O with a heated humidifier. Recommend ordering a machine with compliance data tracking capabilities and following residual AHI. 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 Start Date: 09/10/17 Status: Ordered cyclobenzaprine 5 mg oral tablet 1 tablet = 5 mg, By Mouth, 3 times a day, for 10 days, # 30 tablet, 0 Refills, Acute 09/16/22 21:10:00 EST, 09/06/22 21:10:00 EST, Tablet, [facility]/pharmacy #[id number], Partial fill upon patient request if theprescription is for a schedule II opioid drug., 165... Start Date: 09/06/22 Stop Date: 09/16/22 Status: Ordered FLUoxetine 20 mg oral capsule [...] 11 Refills, Maintenance, 06/15/22 17:40:00EDT, Tablet, [facility]/pharmacy #[id number], [...] 21:10:00 EST, Route to Pharmacy Electronically, [facility]/pharmacy #[id number], Partial fill upon patientrequest [...] patch, 0 Refills, Maintenance, 07/20/22 15:26:00 EDT, [facility] STORE [id number], 10, APPLY 1 PATCH DAILY NEEDED FOR MODERATE PAIN..REMOVE AFTER 12... Start Date: 07/20/22 Status: Ordered oxyCODONE 15 mg oral tablet 1 tablet = 15 mg, By Mouth, Every 6 hours, for 28 days, MassPAT checked, # 112 tablet, 0 Refills, Acute 10/04/22 12:00:00 EST, 09/06/22 12:00:00 EST, [facility]/pharmacy #[id number], Partial fill upon patient request if the prescription is for a schedule II opioid... Start Date: 09/06/22 Stop Date: 10/04/22 Status: Ordered PAP Supplies - Mask, Tubing, [...] tablet, Refills 5, Route to Pharmacy Electronically, [facility] STORE [id number], 166, cm, 12/28/21 10:33:00 EDT, Height, 91.9, [...] 0 Refills, Maintenance, 08/18/22 22:09:00 EDT, Aerosol, [facility]/pharmacy #[id number], Partial fill upon patient request if the [...] Active Obstructive sleep apnea Confirmed Active Health fpc, active care coordination PADMINI Cruz [facility] [phone] Confirmed Active Fatty infiltration of liver Confirmed Active Tubular adenoma of colon Confirmed Active Vital Signs Most recent to oldest [Reference Range]: 1 2 3 Oxygen Saturation [94-100 %] 98 % (09/06/22 8:38 PM) 98 % (09/06/22 8:25 PM) 98 % (09/06/22 7:20 PM) Pulse Rate [55-90 bpm] 93 bpm *H* (09/06/22 8:38 PM) 96 bpm *H* (09/06/22 8:25 PM) 99 bpm *H* (09/06/22 7:20 PM) Blood Pressure [90-138/55-84 mm Hg] 126/90mm Hg (09/06/22 8:38 PM) 134/88mm Hg (09/06/22 8:25 PM) 125/77mm Hg (09/06/22 7:20 PM) Respiratory Rate [16-30 br/min] 15 br/min *L* (09/06/22 8:38 PM) 15 br/min *L* (09/06/22 8:25 PM) 16 br/min (09/06/22 7:20 PM) Temperature [96.8-100.4 DegF] 97.6 DegF (09/06/22 8:38 PM) 98.4 DegF (09/06/22 8:25 PM) 97.9 DegF (09/06/22 7:20 PM) Mode of Delivery (Oxygen) Room air (09/06/22 8:38 PM) Room air (09/06/22 8:25 PM) Room air (09/06/22 7:20 PM) Blood pressure sites Arm, left (09/06/22 8:38 PM) Arm, right (09/06/22 7:20 PM) Temperature Route Oral (09/06/22 8:38 PM) Oral (09/06/22 8:25 PM) Oral (09/06/22 7:20 PM) Social History Social History Type Response Smoking Status Former smoker; Other : Quit 2014; entered on: 09/10/17 Sex Note * Ángel Aquino MD R: PERFORM, SIGN, VERIFY Event Display: Patient Education Handout Authored Date: Patient Care team information Care Team Personnel Name: Macarena Lewis RN Position: [facility] RN Member Role: Primary Care Nurse Name: Mallory Lugo RN Position: [facility] RN Member Role: Primary Care Nurse Name: Carmen Gao RN Position: [facility] RN [...] He RN Position: [facility] PCO RN Member Role: Primary Care Nurse Name: Cortez [...] Care Nurse Name: Monet Miller RN Position: [facility] RN [...] Primary Care Nurse Name: Clarissa Rodriguez Position: [facility] RN Supv Member Role: Primary Care Nurse Name: Evelyn Pyle RN Position: [facility] RN Member Role: Primary Care Nurse Name: Ophelia Marie RN Position: [facility] RN Member Role: Primary Care Nurse Name: Nolvia Mendes RN Position: [facility] RN Member Role: Primary Care Nurse Name: Adi Rees RN Position: [facility] RN Member Role: Primary Care Nurse Name: Catalina Torres RN Position: [facility] RN Member Role: Primary Care Nurse Name: Doroteo Morrow RN Position: [facility] RN Member Role: Primary Care Nurse Address: Address: [address] [place] [address]- Name: Cassidy Masters RN Position: [facility] RN Member Role: Primary Care Nurse Name: Juancarlos Valente RN Position: [facility] Hospital Access Clinician Member Role: Primary Care Nurse Name: Dawna Hernandez MD Position: [facility] Primary Care Physician Member Role: PCP Address: Address: [address] [place] [id number]- Name: *[facility], ED Attending Position: [facility] ED Attendings Patient Name: Ángel Aquino MD Position: [facility] ED Medicine MD Member Role: Admitting Physician Address: Address: [address] [place] [address] [place] [address]- [place] Name: Faina Nino RN Position: [facility] ED RN W/OE and Tasks Member Role: Patient Care Provider Name: Elvira Toussaint Position: [facility] ED TA [facility] Member Role: Patient Care Provider Care Team Related Persons Name: SYLVIA BARBOSA Address: [address] [place] [address] Name: GAGE HUNT Address: [address] [place] [address] Name: JOCELYN HUNT Address: home [address] [place] [address]
--- OUTSIDE RECORDS SUMMARY | 2024-05-24 04:34 | XMS_ITS | Continuity of Care Document ---
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 Name Role Phone Alonzo Esposito MD Primary Care Physician Encounter [facility] [place] Date(s): 09/07/23 - 10/07/23 [facility] [address] [place] [address] Drive, [address] [place], [place] [address] Allergies, Adverse Reactions, [...] influenza virus vaccine, inactivated 12/06/15 Give n [id number] 12y+ bivalent booster vax 11/03/22 Given SARS-CoV-2 mRNA (mktnpmj-nhgn-fwatw) vax 01/26/22 Given SARS-CoV-2 mRNA (efoynhr-glba-xzlqd) vax 12/28/21 Given tetanus/diphtheria/pertussis, acel(Tdap) 03/29/19 Given tetanus/diphtheria/pertussis, acel(Tdap) 09/10/17 Given pneumococcal 23-valent vaccine 04/08/18 Recorded pneumococcal 23-valent vaccine 04/22/17 Recorded pneumococcal 23-valent vaccine 12/21/12 Given Medications aspirin 81 mg oral delayed release tablet 81 mg, By Mouth, Daily, # 30 tablet, Refills 11, Tot. Refills 11, Maintenance, 11/29/23 17:42:00 EST, Route to Pharmacy Electronically, [facility] [id number], For blister pack please., 166, cm, 09/12/23 13:54:00 EST, Height, 9... Start Date: 09/12/23 Status: Ordered atorvastatin 40 mg oral tablet 1 tablet = 40 mg, By Mouth, Daily, # 30 tablet, 11 Refills, Maintenance, 09/12/23 17:42:00 EST, Tablet, [facility] [id number], For blister pack please., 166, cm, 09/12/23 13:54:00 EST, Height, 93, kg, 09/06/23 16:15:00 EST, DrMicheal.. Start Date: 09/12/23 Stop Date: 09/06/24 Status: Ordered chlorhexidine topical 0.12% liquid See Instructions, SWISH AND SPIT DO NOT SWALLOW. USE 3-4 X/ DAY, # 473 mL, 0 Refills, Maintenance, 09/25/23 16:56:00 EST, [facility] STORE [id number], 30, SWISH AND SPIT DO NOT SWALLOW. USE 3-4 X/ DAY, 166, cm, 09/21/23 11:32:00 EST, Height, 93, kg, 09/14/23 12:3... Start Date: 09/25/23 Status: Ordered docusate sodium 100 mg oral tablet 1 tablet = 100 mg, By Mouth, 2 times a day, PRN for constipation, # 60 tablet, 0 Refills, Maintenance, 09/27/23 13:27:00 EST, Tablet, [facility]/pharmacy #[id number], Partial fill upon patient request if the prescription is for a schedule II opioid drug., 166, cm,... Start Date: 09/27/23 Status: Ordered FLUoxetine 20 mg oral capsule 60 mg, 3, capsule, By Mouth, Daily, TAKE 3 CAPSULES BY MOUTH EVERY DAY IN THE MORNING, # 90 capsule, Refills 11, Tot. Refills 11, Maintenance, 09/12/23 17:44:00 EST, Route to Pharmacy Electronically,[facility] [id number], for... Start Date: 09/12/23 Status: Ordered gabapentin 300 mg oral capsule 300 mg, 1, capsule, By Mouth, 2 times a day, # 60 capsule, Refills 11, Tot. Refills 11, Maintenance, 09/12/23 17:42:00 EST, Route to Pharmacy Electronically, [facility] [id number], For blister pack please., 166, cm, 09/12/23 1... Start Date: 09/12/23 Status: Ordered nitroglycerin 0.4 mg sublingual tablet 1 tablet = 0.4 mg, Sublingual, Every 5 minutes, PRN Chest Pain, # 100 tablet, 0 Refills, Maintenance, 06/08/23 16:23:00 EDT, [id number] Partial fill upon patient request if the prescription is for a schedule II opioid drug., 165, cm,... Start Date: 06/08/23 Status: Ordered oxyCODONE 15 mg oral tablet 1 tablet = 15 mg, By Mouth, Every 6 hours, PRN Pain , Severe, controlled substance agreement. adjusting dose back to previous dose., # 120 tablet, 0 Refills, Maintenance, 09/24/23 12:55:00 EST, Tablet[id number] Partial fill upon patient req... Start Date: 09/24/23 Status: Ordered propranolol 20 mg oral tablet 2, tablet, By Mouth, 2 times a day, # 120 tablet, Refills 11, Tot. Refills , Maintenance, 09/12/23 17:42:00 EST, Route to Pharmacy Electronically, [facility] [id number], For blister pack please., 166, cm, 09/12/23 13:54:00 E... Start Date: 09/12/23 Status: Ordered risperiDONE 2 mg oral tablet 4 mg, 2, tablet, By Mouth, Daily at bedtime, Rx'd by psychiatry, # 60 tablet, Refills 11, Tot. Refills , Maintenance, 09/12/23 17:44:00 EST, Route to Pharmacy Electronically, [facility] [id number], for blister pack, 166, cm... Start Date: 09/12/23 Status: Ordered tiZANidine 2 mg oral tablet 2 mg, 1, tablet, By Mouth, 3 times a day, Can take two tablets at bedtime. Do not take at the same time as oxycodone., # 90 tablet, Refills 0, Tot. Refills 0, Maintenance, 09/26/23 10:38:00 EST, Route to Pharmacy Electronically, [facility]/pharmacy #[id number], Sp... Start Date: 09/26/23 Status: Ordered traZODone 100 mg oral tablet 50 mg, 0.5, tablet, By Mouth, Daily at bedtime, # 15 tablet, Refills 11, Tot. Refills 11, Maintenance, 09/12/23 17:44:00 EST, Route to Pharmacy Electronically, [facility] [place], [place] - [id number], Partial fill upon patient request if the pr... Start Date: 09/12/23 Status: Ordered Ventolin HFA 108 mcg/inh inhalation aerosol with adapter 2 puffs, Inhalation, 4 times a day, PRN NEEDED FOR WHEEZING, # 18 Gm, 11 Refills, Maintenance, 02/22/23 8:17:00 EDT, [facility]/pharmacy #[id number], 166, cm, 01/18/23 15:56:00 EDT, [...] Active Obstructive sleep apnea Confirmed Active Health mcfp, active care coordination PADMINI Cruz [facility] [phone] Confirmed Active Fatty infiltration of liver Confirmed [...] Primary Care Nurse Name: Sima RNCarmen Position: [facility] ED RN W/OE and Tasks Member Role: Primary Care Nurse Name: Dacia Evangelista RN Position: [facility] RN Member Role: Primary Care Nurse Name: Tracey Linares RN Position: [facility] AMB Nurse Member Role: Primary Care Nurse Name: Italia Ortega RN Position: [facility] RN Member Role: Primary Care Nurse Name: Catalina He RN Position: [facility] AMB Nurse Member Role: Primary Care Nurse Name: Jessica Lantigua RN Position: [facility] SN RN Member Role: Primary Care Nurse Name: Catalina Pack RN Position: [facility] SN RN Member Role: Primary Care Nurse Name: Clifford Gerber RN Position: [facility] RN Member Role: Primary Care Nurse Name: Doris Butler RN Position: [facility] RN Member Role: Primary Care Nurse Name: Aziza Poole RN Position: [facility] RN Member Role: Primary Care Nurse Name: Monet Miller RN Position: [facility] RN Member Role: Primary Care Nurse Name: Katheryn Wu RN Position: [facility] SN RN Member Role: Primary Care Nurse Name: Doris Dee RN Position: [facility] RN Member Role: Primary Care Nurse Name: Janae Soto RN Position: [facility] RN Member Role: Primary Care Nurse Name: Daphney Echols LPN Position: [facility] RN Member Role: Primary Care Nurse Name: Nini Odonnell RN Position: [facility] RN Member Role: Primary Care Nurse Name: Jennifer Thakkar RN Position: [facility] RN Member Role: Primary Care Nurse Name: Hyun Ochoa RN Position: [facility] RN Member Role: Primary Care Nurse Name: Yazmin Lay RN Position: [facility] RN Member Role: Primary Care Nurse Name: Nancy Magana RN Position: [facility] RN Member Role: Primary Care Nurse Name: Ranjana Zavala RN Position: [facility] RN Member Role: Primary Care Nurse Name: Melvi Carter RN Position: [facility] OB RN Member Role: Primary Care Nurse Name: Jackson Rosen RN Position: [facility] RN Member Role: Primary Care Nurse Name: Clarissa Rodriguez RN Position: [facility] RN Supv Member Role: Primary Care Nurse Name: Ophelia Marie RN Position: [facility] RN Member Role: Primary Care Nurse Name: Nolvia Mendes RN Position: [facility] RN Member Role: Primary Care Nurse Name: Tyrone Germain RN Position: [facility] RN Member Role: Primary Care Nurse Name: Adi Rees RN Position: [facility] RN Member Role: Primary Care Nurse Name: Orlando Mcallister RN Position: [facility] RN Member Role: Primary Care Nurse Name: Alisa Mcallister RN Position: [facility] RN Member Role: Primary Care Nurse Name: Alonzo Esposito MD Position: [facility] Physician - Primary Care Member Role: PCP Address: Address: [address] [place] [address]- [place] Name: Doroteo Morrow RN Position: [facility] RN Member Role: Primary Care Nurse Address: Address: [address] [place] [address]- Name: Cassidy Masters RN Position: [facility] RN Member Role: Primary Care Nurse Name: Juancarlos Valente RN Position: [facility] Construction Recruiter Member Role: Primary Care Nurse Name: Tran Wiseman RN Position: [facility] RN Member Role: Primary Care Nurse Care Team Related Persons Name: SYLVIA BARBOSA Address: [address] [place] [address] Name: GAGE HUNT Address: [address] [place] [address] Name: JOCELYN HUNT Address: home [address] [place] [address]
--- OUTSIDE RECORDS SUMMARY | 2024-05-24 04:34 | XMS_ITS | Continuity of Care Document ---
Author Organization [facility] ter Address [address] [place] [id number] Care Team Providers Care Mill Laborer Name Role Phone Alonzo Esposito MD Primary Care Physician Encounter [facility] [place] Date(s): 09/14/23 - 09/21/[address] [address]- Discharge Disposition: A-D/C Home Attending Physician: Scotty Schwartz MD Admitting Physician: Tong Spain MD Referring Physician: Tong Spain MD Allergies, Adverse Reactions, Alerts Substance Reaction [...] influenza virus vaccine, inactivated 12/06/15 Give n [id number] 12y+ bivalent booster vax 11/03/22 Given SARS-CoV-2 mRNA ([id number]) vax 01/26/22 Given SARS-CoV-2 mRNA ([id number]) vax 12/28/21 Given tetanus/diphtheria/pertussis, acel(Tdap) 03/29/19 Given tetanus/diphtheria/pertussis, acel(Tdap) 09/10/17 Given pneumococcal 23-valent vaccine 04/08/18 Recorded pneumococcal 23-valent vaccine 04/22/17 Recorded pneumococcal 23-valent vaccine 12/21/12 Given Medications aspirin 81 mg oral delayed release tablet 81 mg, By Mouth, Daily, # 30 tablet, Refills 11, Tot. Refills 11, Maintenance, 09/12/23 17:42:00 EST, Route to Pharmacy Electronically, [facility] [id number], For blister pack please., 166, cm, 09/12/23 13:54:00 EST, Height, 9... Start Date: 09/12/23 Status: Ordered atorvastatin 40 mg oral tablet 1 tablet = 40 mg, By Mouth, Daily, # 30 tablet, 11 Refills, Maintenance, 09/12/23 17:42:00 EST, Tablet, [facility] [phone], For blister pack please., 166, cm, 09/12/23 13:54:00 EST, Height, 93, kg, 09/06/23 16:15:00 EST, DrMicheal.Micheal Start Date: 09/12/23 Stop Date: 09/06/24 Status: Ordered FLUoxetine 20 mg oral capsule 60 mg, 3, capsule, By Mouth, Daily, TAKE 3 CAPSULES BY MOUTH EVERY DAY IN THE MORNING, # 90 capsule, Refills 11, Tot. Refills 11, Maintenance, 09/12/23 17:44:00 EST, Route to Pharmacy Electronically,[facility] [id number], for... Start Date: 09/12/23 Status: Ordered gabapentin 300 mg oral capsule 300 mg, 1, capsule, By Mouth, 2 times a day, # 60 capsule, Refills 11, Tot. Refills 11, Maintenance, 09/12/23 17:42:00 EST, Route to Pharmacy Electronically, [facility] [id number], For blister pack please., 166, cm, 09/12/23 1... Start Date: 09/12/23 Status: Ordered gabapentin 300 mg oral capsule 300 mg, Capsule, By Mouth, 09/21/23 15:00:00 EST Start Date: 09/21/23 Stop Date: 09/21/23 Status: Completed nitroglycerin 0.4 mg sublingual tablet 1 tablet = 0.4 mg, Sublingual, Every 5 minutes, PRN Chest Pain, # 100 tablet, 0 Refills, Maintenance, 06/08/23 16:23:00 EDT, Tablet, [facility]/pharmacy #[id number], Partial fill upon patient request if the prescription is for a schedule II opioid drug., 165, cm,... Start Date: 06/08/23 Status: Ordered oxyCODONE 5 mg oral tablet 5 mg, 1, tablet, By Mouth, Every 6 hours, PRN, # 12 tablet, Refills 0, Tot. Refills 0, Acute 09/25/23 13:36:00 EST, as needed for pain, 09/21/23 13:36:00 EST, Route to Pharmacy Electronically, [facility], Partial fill upon patient reques... Start Date: 09/21/23 Stop Date: 09/25/23 Status: Ordered OxyCONTIN 10 mg oral tablet, extended release 20 mg, By Mouth, Every 12 hours, # 10 tablet, Refills 0, Tot. Refills 0, Maintenance, 09/21/23 13:35:00 EST, Route to Pharmacy Electronically, [facility], Partial fill upon patient request if the prescription is for a schedule II opioid... Start Date: 09/21/23 Status: Ordered propranolol 20 mg oral tablet 2, tablet, By Mouth, 2 times a day, # 120 tablet, Refills 11, Tot. Refills 11, Maintenance, 09/12/23 17:42:00 EST, Route to Pharmacy Electronically, [facility] [id number], For blister pack please., 166, cm, 09/12/23 13:54:00 E... Start Date: 09/12/23 Status: Ordered propranolol 20 mg oral tablet 40 mg, Tablet, By Mouth, Hold for: SBP<101 and HR<55, 09/21/23 9:00:00 EST Start Date: 09/21/23 Stop Date: 09/21/23 Status: Completed risperiDONE 2 mg oral tablet 4 mg, 2, tablet, By Mouth, Daily at bedtime, Rx'd by psychiatry, # 60 tablet, Refills 11, Tot. Refills 11, Maintenance, 09/12/23 17:44:00 EST, Route to Pharmacy Electronically, [facility] [id number], for blister pack, 166, cm... Start Date: 09/12/23 Status: Ordered traZODone 100 mg oral tablet 50 mg, 0.5, tablet, By Mouth, Daily at bedtime, # 15 tablet, Refills 11, Tot. Refills 11, Maintenance, 09/12/23 17:44:00 EST, Route to Pharmacy Electronically, [place], [place] - [id number], Partial fill upon patient request if the [...] Active Obstructive sleep apnea Confirmed Active [facility], [facility] care [phone] Confirmed Active Fatty infiltration of liver Confirmed Active Tubular adenoma of colon Confirmed Active 1history of this with surgical correction Results Radiology Reports * Exam Date Time Procedure Performing Provider Status 09/19/23 11:20 AM C-Arm > 1 Hour Kriss Jara (Verified) Notes: (C-Arm > 1 Hour) Reason For Exam: Posterior fusion C3-C6; cord compression RESULT: C-Arm > 1 Hour Cervical Spine 3 Views or Less, C-Arm > 1 Hour INDICATION: Reason: Posterior fusion C3-C6; cord compression COMPARISONS: None TECHNIQUE: Fluoroscopy support was provided. There was no radiologist in attendance. FLUOROSCOPY TIME: 21 seconds EXPOSURE: 3.40 mGy (reference air kerma) TECHNOLOGIST TIME: 3 hours 5 minutes FINDINGS: 3 fluoroscopic images of the mid to lower thoracic spine in frontal and lateral projections obtained in the operating room show a metallic clamp pointing posteriorly. L3-L4 disc. Final images show bilateral pedicular screws C3-C5 4 posterior cervical fusion. Please refer to operative report for more details. IMPRESSION: See above. WSN: [id number] Ordering Physician: Clint Puga Dictated By: Christopher Bejarano MD, V Dictated Date/Time: 09/19/23 4:26 pm Reviewed By: Christopher Bejarano MD, V Signed By: Christopher Bejarano MD, V Signed Date/Time: 09/19/23 4:26 pm Transcribed By: HARPAL Transcribed Date/Time: 09/19/23 4:23 pm * Exam Date Time Procedure Performing Provider Status 09/19/23 11:20 AM Cervical Spine 3 Views or Less Elvia Jara; July (Verified) Notes: (Cervical Spine 3 Views or Less) Reason For Exam: Posterior fusion C3-C6; cord compression RESULT: Cervical Spine 3 Views or Less Cervical Spine 3 Views or Less, C-Arm > 1 Hour INDICATION: Reason: Posterior fusion C3-C6; cord compression COMPARISONS: None TECHNIQUE: Fluoroscopy support was provided. There was no radiologist in attendance. FLUOROSCOPY TIME: 21 seconds EXPOSURE: 3.40 mGy (reference air kerma) TECHNOLOGIST TIME: 3 hours 5 minutes FINDINGS: 3 fluoroscopic images of the mid to lower thoracic spine in frontal and lateral projections obtained in the operating room show a metallic clamp pointing posteriorly. L3-L4 disc. Final images show bilateral pedicular screws C3-C5 4 posterior cervical fusion. Please refer to operative report for more details. IMPRESSION: See above. WSN: [id number] Ordering Physician: Clint Puga Dictated By: Christopher Bejarano MD, V Dictated Date/Time: 09/19/23 4:26 pm Reviewed By: Christopher Bejarano MD, V Signed By: Christopher Bejarano MD, V Signed Date/Time: 09/19/23 4:26 pm Transcribed By: HARPAL Transcribed Date/Time: 09/19/23 4:23 pm Vital Signs Most recent to oldest [Reference Range]: 1 2 3 Height 166 cm (09/21/23 11:32 AM) 166 cm (09/19/23 8:18 AM) 166 cm (09/18/23 3:13 AM) Weight 90.0 kg (09/20/23 3:19 AM) 90.2 kg (09/19/23 8:18 AM) 90.2 kg (09/19/23 3:43 AM) Oxygen Saturation [94-100 %] 95 % (09/21/23 3:00 PM) 98 % (09/21/23 11:00 AM) 97 % (09/21/23 7:00 AM) Pulse Rate [55-90 bpm] 77 bpm (09/21/23 3:00 PM) 77 bpm (09/21/23 11:00 AM) 77 bpm (09/21/23 8:47 AM) Body Mass Index [18.5-24.99 kg/m2] 32.73 kg/m2 *>HHI* (09/19/23 8:18 AM) 33.75 kg/m2 *>HHI* (09/14/23 12:30 PM) Blood Pressure [90-138/55-84 mm Hg] 107/66mm Hg (09/21/23 3:00 PM) 106/66mm Hg (09/21/23 11:00 AM) 118/88mm Hg (09/21/23 8:47 AM) Respiratory Rate [16-30 br/min] 18 br/min (09/21/23 3:48 PM) 18 br/min (09/21/23 3:00 PM) 18 br/min (09/21/23 2:48 PM) Temperature [96.8-100.4 DegF] 97.6 DegF (09/21/23 3:00 PM) 97.6 DegF (09/21/23 11:00 AM) 98.1 DegF (09/21/23 7:00 AM) Liters per Minute 2 L/min (09/19/23 12:45 PM) 2 L/min (09/19/23 12:30 PM) 2 L/min (09/19/23 12:15 PM) Mode of Delivery (Oxygen) Room air (09/21/23 3:00 PM) Room air (09/21/23 11:00 AM) Room air (09/21/23 7:00 AM) Blood pressure sites Arm, left (09/21/23 3:00 PM) Arm, left (09/21/23 11:00 AM) Arm, left (09/21/23 7:00 AM) Temperature Route Temporal (09/21/23 3:00 PM) Temporal (09/21/23 11:00 AM) Oral (09/21/23 7:00 AM) Dry Weight 93 kg (09/14/23 12:30 PM) Weight Obtained Via Bed scale (09/20/23 3:19 AM) Patient/family stated (09/14/23 12:30 PM) Dry Weight Obtained Via Patient/family s tated (09/14/23 12:30 PM) Social History Social History Type Response Smoking Status Former smoker; Other : Quit 2014; entered on: 09/10/17 Sex History and physical note * Dilma RAWLS, Jackie: PERFORM Event Display: History and Physical Hospital Authored Date: [id number] Patient: ??JAMARCUS BARBOSA ? Age:??52 Years?Sex:??Male?:??1970?? Chief Complaint/Reason for Consultation Syncope, increasing weakness and numbness in the left upper and lower extremity History of Present Illness Patient is a 52-year-old male??with known cervical myelopathy with stenosis at C3-C4 and C5-C6,??dyslipidemia, essential hypertension,??acid reflux,??depression,??type 2 diabetes mellitus, history of??MARIA G,??prior syncope and chronic pain??who was discharged from??[facility]??on 09/10/20 23presenting to outside ED with??increasing weakness and numbness in the left side of his body??andreportedly more dizzy??and reportedly had a syncopal episode with??urinary and fecal incontinence. ??He contacted his??neurosurgeon and was recommended to come to the ED for further evaluation.?? Patient reports tingling and numbness in the hands??greater than legs and??also??throbbing type of headache??with worsening??pain in the neck.?? He was transferred to [facility]??for furtherevaluation Patient was admitted on 08/30/2023??as a stroke alert??with left-sided weakness and had an echocardiogram at that time that revealed no acute abnormalities??and eventually was diagnosed with??cervical myelopathy.?? He also had an admission in October 2022 for??concern of urinary and fecal incontinence??with imaging studies revealed no cauda equina and??was treated nonoperatively at that time. ?? Patient reports pain of??7-8/10 in the head and the neck??and tingling and radiating down the??arm. ??He denies any palpitations. ??Denies any nausea or vomiting.?? No hematemesis no hemoptysis ormelena. ??No fevers chills no cough no congestion, no sick contacts.?? His workup revealed slightlyelevated white cell count of 13.1, hemoglobin of 15.8, proBNP was within normal limits and troponinwas less than 6.?? Chest x-ray revealed no acute cardiopulmonary process CT of the head did not show any acute intracranial process and CT of the head and neck revealed no flow-limiting lesions. Review of Systems A 10 point review of systems was done and is??negative??except as mentioned in the HPI section. Objective Vital Signs?? Temperature: 98.8 DegF (09/14/23 12:30:00) Temperature Route: Oral (09/14/23 12:30:00) Pulse Rate: 72 bpm (09/14/23 12:30:00) Respiratory Rate: 18 br/min (09/14/23 12:30:00) Systolic Blood Pressure: 124 mm Hg (09/14/23 12:30:00) Diastolic Blood Pressure: 84 mm Hg (09/14/23 12:30:00) Blood pressure sites: Arm, right (09/14/23 12:30:00) Mean Arterial Pressure: 97 mm Hg (09/14/23 12:30:00) Pulse Pressure: 40 mm Hg (09/14/23 12:30:00) Oxygen Saturation: 99 % (09/14/23 12:00:00) Mode of Delivery (Oxygen): Room air (09/14/23 12:00:00) Early Warning Score: 0 (09/14/23 13:51:01) ? Physical Exam Constitutional: Overweight male who appears in no acute distress Head EENT: Extraocular muscle movement intact.??Moist mucous membranes.?? Neck: Supple. No JVD. Respiratory: Clear to auscultation. No wheezing or crackles. No use of accessory muscles. Cardiovascular: S1S2 regular. No murmurs, rubs or gallops. Gastrointestinal: Abdomen soft, non-tender, non-distended. Normal bowel sounds. Genitourinary: No CVA tenderness. Extremities: No lower extremity pitting??edema. No cyanosis or clubbing. Neurologic: AAOx3, Speech normal. ??Left upper extremity lower extremity weakness compared to the right, strength is??minus 4 out of 5 in the upper and??plus 3 out of 5 on the??left lower extremity,??patient also noted decrease sensation in theleft side compared to the right Skin: No rash. Psychiatric:??Slightly depressed mood and affect Assessment/Plan Diagnoses Cervical myelopathy ??(G95.9) Syncope ??(R55) ?? Assessment:??52-year-old??male with known cervical myelopathy and stenosis??at C3-C4??and C5-C6 dueto have his??surgery by?Edd??on 09/19/2023, history of dyslipidemia, essential hypertension,??acid reflux,??depressive disorder, type 2 diabetes mellitus, history of MARIA G,??history of chronic pain??on opiate pain medications,??prior syncopal episodes??presenting to outside ED??with increasing??left upper extremity??numbness and weakness??and increasing weakness in the left lower extremity??and headache??and a syncopal episode ?? Cervical myelopathy (G95.9):??He was seen by??neurosurgery had a recent MRI??that revealed cervicalcord edema??versus??ischemia at the level of C4,??has known??cervical myelopathy with stenosis at C3-C4 and C5-C6,??consult neurosurgery, he is due to??for??cervical??surgery on??09/19/2023,??continue gabapentin, continue pain control,On last admission was recommended cervical collar for comfort. Appreciate neurosurgery input. ?? Syncope (R55):??Patient has had multiple episodes like this in the past, had an echocardiogram??on 08/31/2023 that revealed preserved EF and no regional wall motion abnormalities and no significant valvular abnormalities.??He is on high- dose risperidone??and??will need to check orthostatic vitals to rule out orthostatic hypotension.??Do not believe that his syncope is of??cardiac etiology, question orthostatic??versus vasovagal etiology secondary to pain.??Continue telemetry. ?? Chronic comorbid conditions: ?? History of mood disorder:??Continue fluoxetine, risperidone and Inderal Hyperlipidemia: Continue statin ?? Holding aspirin for planned??surgical repair ? Mass NURSE AIDE EVALUATOR has been reviewed,??he is on oxy??codon and MS Contin ?? Diabetes not on??home medications.?? Blood sugars have been under fair control.?? If he started on steroids??sliding scale can be considered. ?? VTE Prophylaxis:??Lovenox ?VTE Prophylaxis Assessment:??VTE Prophylaxis Ordered ?? Code Status:??Full ?Order Code Status:??Code Status Ordered ?? Ongoing Medical Necessity:??Cervical myelopathy and syncope ?? Discharge Planning:??To be decided ? Plan of care discussed with patient at bedside and answered all questions. ??Coordinated care with neurosurgery??physician administrative assistant coordinator regional trainer Ama and will discuss with neurosurgery attending and??provide recommendations. ?? Primary Contact: ?SYLVIA BARBOSA?Relation to Pt: Child?Cell ? Histories Allergies Allergies ?(Active and Proposed Allergies Only) Shrimp? (Severity: Unknown severity, Onset: Unknown) lisinopril? (Severity: Unknown severity, Onset: Unknown) ?Reactions: Angioedema ? Past Medical History/Problem List Active Problems??(16) Cauda equina syndrome Chest pain Controlled substance agreement signed 05/29/2023 Depression Diabetes Fatty infiltration of liver GERD (gastroesophageal reflux disease) [facility], active care coordination [facility] [phone] HTN (hypertension) Hyperlipidemia Illiteracy Lower back pain [...] Electronic Cigarette/Vaping Details:??Electronic Cigarette Use: Never. ? Psychosocial History ? Family History Mother: Arthritis; Diabetes mellitus; Emphysema ? [facility] No ?? Medications Home Medications Albuterol (Ventolin HFA 108 mcg/inh inhalation aerosol with adapter)?2?puff(s)?Inhalation?4 times a day?as needed? NEEDED FOR WHEEZING Aspirin (aspirin 81 mg oral delayed release tablet)?81?Milligram?By Mouth?Daily Atorvastatin (atorvastatin 40 mg oral tablet)?1?tab(s)?40?Milligram?By Mouth?Daily?for 30?Days Fluoxetine (FLUoxetine 20 mg oral capsule)?60?Milligram?3?capsule?By Mouth?Daily?TAKE 3 CAPSULES BY MOUTH EVERY DAY IN THE MORNING Gabapentin (gabapentin 300 mg oral capsule)?300?Milligram?1?capsule?By Mouth?2 times a day Nitroglycerin (nitroglycerin 0.4 mg sublingual tablet)?1?tab(s)?0.4?Milligram?Sublingual?Every 5 minutes?as needed?Chest Pain Oxycodone (OxyCONTIN 15 mg oral tablet, extended release)?1?tab(s)?15?Milligram?By Mouth?Every 12 hours?for 30?Days?dx: M54.5MassPAT checked; appropriate Oxycodone (oxyCODONE 10 mg oral tablet)?1?tab(s)?10?Milligram?By Mouth?Every 6 hours?as needed?Pain , Severe?for 5?Days Propranolol (propranolol 20 mg oral tablet)?2?tablet?By Mouth?2 times a day Risperidone (risperiDONE 2 mg oral tablet)?4?Milligram?2?tablet?By Mouth?Daily atbedtime?Rx'd ??by psychiatry Trazodone (traZODone 100 mg oral tablet)?50?Milligram?0.5?tablet?By Mouth?Daily at bedtime ? Inpatient Medications Medications (21) Active SCHEDULED: (8) Atorvastatin 40 mg Tablet (atorvastatin 40 mg oral tablet) ??40 mg, By Mouth, Daily Enoxaparin 40 mg Inj (Enoxaparin Inj) ??40 mg 0.4 mL, Subcutaneous Injection, Daily Fluoxetine 20 mg Capsule (FLUoxetine 20 mg oral capsule) ??60 mg, By Mouth, Daily Gabapentin 300 mg Capsule (gabapentin 300 mg oral capsule) ??300 mg, By Mouth, 2 times a day NaCl 0.9% Flush 3ml (NaCL 0.9% Flush) ??3 mL, IV Push, Every 8 hours OxyCODONE 10 mg ER Tablet (OxyCONTIN 10 mg oral tablet, extended release) ??10 mg, By Mouth, Every 12 hours Propranolol 20 mg Tablet (propranolol 20 mg oral tablet) ??40 mg, By Mouth, 2 times a day Risperidone 1 mg Tablet (risperiDONE 1 mg oral tablet) ??4 mg, By Mouth, Daily at bedtime CONTINUOUS: (0) PRN: (13) Acetaminophen 325 mg Tablet (Acetaminophen Tablet) ??650 mg, By Mouth, Every 4 hours Albuterol 90mcg/Inhalation Inhaler HFA (albuterol CFC free 90 mcg/inh inhalation aerosol) ??180 mcg2 puffs, Inhalation, Every 4 hours Dextromethorphan-Guaifenesin 20 mg-200 mg/10 mL Liqu UD (Robitussin DM Liquid) ??10 mL, By Mouth, Every 4 hours Docusate Sodium 100 mg Capsule (Docusate Sodium Capsule) ??100 mg 1 capsule, By Mouth, 2 times a day Melatonin 3 mg Tablet (Melatonin Tablet) ??3 mg, By Mouth, Daily at bedtime NaCl 0.9% Flush 3ml (NaCL 0.9% Flush) ??3 mL, IV Push, Every 8 hours Nitroglycerin 0.4 mg Sublingual Tablet (nitroglycerin 0.4 mg sublingual tablet) ??0.4 mg, Sublingual, Every 5 minutes Ondansetron 2mg/mL Inj (2mL Vial) (Ondansetron Inj) ??8 mg, IV Push, Every 6 hours OxyCODONE 5 mg IR Tablet (oxyCODONE 5 mg oral tablet) ??10 mg, By Mouth, Every 6 hours Polyethylene Glycol 17 Gm Powder (MiraLax Powder) ??17 Gm 1 pack/packet, By Mouth, Daily Senna Tablet ??8.6 mg 1 tablet, By Mouth, 2 times a day Simethicone 80 mg Chewable Tablet (Simethicone Tablet) ??80 mg, Chew, 3 times a day Trazodone 50 mg Tablet (Trazodone Tablet) ??50 mg, By Mouth, Daily at bedtime ? Results Recent Labs BLOOD COUNT & DIFF WBC 13.1 k/mm3 (High)?? 09/13/2023 22:06 RBC 5.58 m/mm3 ()?? 09/13/2023 22:06 Hgb 15.8 Gm/dL ()?? 09/13/2023 22:06 Hct 47.9 % ()?? 09/13/2023 22:06 MCV 85.8 femtoliters ()?? 09/13/2023 22:06 MCH 28.3 pg ()?? 09/13/2023 22:06 MCHC 33.0 g/dL ()?? 09/13/2023 22:06 Platelet Count 284 k/mm3 ()?? 09/13/2023 22:06 RDW-SD 44.6 femtoliters ()?? 09/13/2023 22:06 MPV 10.8 femtoliters ()?? 09/13/2023 22:06 Nucleated RBC (Automated) 0.0 #/100 WBC'S ()?? 09/13/2023 22:06 Abs. NRBC 0.0 k/mm3 ()?? 09/13/2023 22:06 Abs. Neut 9.5 k/mm3 (High)?? 09/13/2023 22:06 Abs. Lymph 2.5 k/mm3 ()?? 09/13/2023 22:06 Abs. [place] 0.9 k/mm3 ()?? 09/13/2023 22:06 Abs. Eo 0.1 k/mm3 ()?? 09/13/2023 22:06 Abs. Baso 0.0 k/mm3 ()?? 09/13/2023 22:06 Neut % 72.7 % ()?? 09/13/2023 22:06 Lymph % 18.8 % ()?? 09/13/2023 22:06 [place] % 6.8 % ()?? 09/13/2023 22:06 Eos % 0.9 % ()?? 09/13/2023 22:06 Baso % 0.2 % ()?? 09/13/2023 22:06 Imm Gran 0.6 % ()?? 09/13/2023 22:06 Abs. Imm Gran 0.1 k/mm3 ()?? 09/13/2023 22:06 ?? CARDIAC Nt-Probnp 60 pg/mL ()?? 09/13/2023 22:06 High Sensitivity Troponin (HSTnT) <6 ng/L ()?? 09/13/2023 22:06 ?? CHEM GENERAL Sodium 135 mmol/L ()?? 09/13/2023 22:06 Potassium 4.1 mmol/L ()?? 09/13/2023 22:06 Chloride 99 mmol/L ()?? 09/13/2023 22:06 Bicarbonate Level 24 mmol/L ()?? 09/13/2023 22:06 Anion Gap 12 ()?? 09/13/2023 22:06 Glucose Level 102 mg/dL (High)?? 09/13/2023 22:06 BUN 14 mg/dL ()?? 09/13/2023 22:06 Creatinine-Blood 0.9 mg/dL ()?? 09/13/2023 22:06 Estimated GFR Creatinine 103 ML/MIN/1.73 M2 ()?? 09/13/2023 22:06 Calcium 9.4 mg/dL ()?? 09/13/2023 22:06 Magnesium 2.1 mg/dL ()?? 09/13/2023 22:06 Protein, Total 7.8 Gm/dL ()?? 09/13/2023 22:06 Albumin 4.2 Gm/dL ()?? 09/13/2023 22:06 AG Ratio 1.2 ()?? 09/13/2023 22:06 Alkaline Phosphatase 135 units/L (High)?? 09/13/2023 22:06 AST (SGOT) 13 units/L ()?? 09/13/2023 22:06 ALT (SGPT) 10 units/L ()?? 09/13/2023 22:06 Bilirubin, Total 0.5 mg/dL ()?? 09/13/2023 22:06 ?? HEME OTHER Hold Blue Top SPECIMEN DISCARDED AFTER 4 HOURS. ()?? 09/13/2023 22:06 ?? MISC. CHEMISTRY Hold Gel Top SPECIMEN DISCARDED AFTER 1 WEEK ()?? 09/13/2023 22:06 ?? URINE OTHER Est Creatinine Clearance 84.34 mL/min ()?? 09/13/2023 22:44 ? Abnormal Labs No lab data available. ?? Urinalysis?? No qualifying data available. ?(09/13/2023 23:[address] Angio Head) IMPRESSION: ?? No cutoff or high-grade stenosis of the major branches of the intracranial arteries. ??No aneurysm,stenosis, or vascular malformations present.? The right proximal internal carotid artery show no significant stenosis by NASCET criteria. ?? The left proximal internal carotid artery show no significant stenosis by NASCET criteria. ?? The right cervical vertebral artery shows no significant stenosis.? The left cervical vertebral artery shows no significant stenosis. ?? No significant change to prior study. ?? [1] (09/13/2023 23:[address] Head/Brain W/O Contrast) IMPRESSION: ?? No acute intracranial pathology. [2] ? (09/08/2023 19:57 EST MRI Cervical Spine W/O Contrast) IMPRESSION: ?? Again demonstrated the 3 mm area of increased T2 signal within the left anterior cord at level of C4 which could represent cord edema or ischemia. ?? Multilevel cervical spondylosis as described above. ?? There is no significant interval change as compared to prior study. [3] ? (09/13/2023 22:46 EST Chest 2 Views Frontal and Lat) IMPRESSION: ?? No acute abnormality. ?? [4] ?? (08/31/2023 13:20 EST MRI Cervical Spine W/O Contrast) ?? Degenerative changes of the cervical spine as detailed above. Most prominently: * ??Severe central stenosis at C3-4 with focal cord compression and myelopathic cord signal abnormality. * ??Moderate central stenosis is also present at C4-5. * ??Multilevel neural foraminal narrowing, most severe on the left at C5-6. Moderate neural foraminal narrowing is also present on the right at C5-6 and bilaterally at C6-7. [5] ?Summary ??The left ventricle is normal in size and wall thickness. Overall left ??ventricular systolic function is normal. LVEF visually estimated at 60-65%. ??There are no definite wall motion abnormalities. Normal diastolic function. ?The right ventricle is normal in size. ??Right ventricular systolic function appears preserved. [6] [1]??CT Angio Head; Arthur Gifford MD 09/13/2023 23:04 EST [2]??CT Head/Brain W/O Contrast; Elvira Rolle MD 09/13/2023 23:04 EST [3]??MRI Cervical Spine W/O Contrast; Arthur Gifford MD 09/08/2023 19:57 EST [4]??Chest 2 Views Frontal and Lat; Vega RAWLS, Fareed Ulloa 09/13/2023 22:46 EST [5]??MRI Cervical Spine W/O Contrast; Kelli Llamas MD 08/31/2023 13:20 EST [6]??Echo Complete-Doppler, Colorflow, M-Mode; Mandi Alston MD 08/31/2023 07:34 EST * Dilma RAWLS, Jackie: PERFORM Event Display: History and Physical Hospital Authored Date: Neurosurgery team recommends dexamethasone 4 mg twice daily until surgery.?? Surgical date 09/19/2023 Hospital Progress note * Maureen Luz RN: PERFORM, SIGN, VERIFY Event Display: Progress Note Hospital Authored Date: Patient: JAMARCUS BARBOSA Age: 52 years Sex: Male : 1970 Associated Diagnoses: None Author: Maureen Luz RN Findings Problem Related to Alteration in Neurological : Alteration in Neurological Function/new 09/21/2023 11:00 EST Alteration in Neuro status Related to Other: Syncope Goals & Outcomes, Neurological Lab studies/diagnostic tests [...] psychosocial support as needed, Pt/caregiver will state understanding of rehab plan, Pt/caregiver will state strategies to reduce risk factors, Pt/caregiver will state understanding aspiration precautions, Pt/caregiver will state understanding dietary modifications, Pt/caregiver will state understanding of disease process, Pt/caregiver will state understanding of plan/goals of care, Pt/caregiver will state understanding of the D/C plan, Resolved problem, Goals/Outcomes met Interventions, Neurological Assess/monitor for abnormal posturing, Assess/monitor for gaze pattern/extraocular movements, Assess/monitor for increased Intracranial Pressure, Assess/monitor neurologicstatus, Assess/monitor VS per unit standards & prn, Call/Report variances in assessments to provider, Collaborate w/ provider to implement appropriate guidelines, Collaborate with Nutrition, Collaborate with provider re: medication regime, Document & Monitor O2 Sats; Administer O2 as ordered, Identify psychosocial issues related to diagnosis/illness, Gray alternate means of communication, Keep patient's head & body in good alignment, Maintain HOB at least 30 deg, Maintain normot hermia, report temp >101.5 F, Maintain patient safety if unsteady gait, Maintain strict intake & output, Monitor Fluid & Electrolytes, Serum Osmolarity, Monitor for headaches, nausea, vomiting, Monitor speech fluency, aphasia, word finding difficulty, Physical assessment per unit standards, Provide emotional support to Pt/caregiver, Teach & encourage deep breath & cough exercises, Teach and encourage use of Incentive spirometer, Teach pt/caregiver discharge plan & follow up care, Teach pt/caregiver on plan of care, treatment, s/s & meds, Teach pt/caregiver on use ofpain scale Goals/Interventions, Neurological Yes Neurological, Problem Start 09/14/2023 13:00 Reviewed plan with, Neurological Patient Patient Progression, Neurological Pt progressing according to plan . Nursing Data Vital Signs : VITAL SIGNS SECTION 09/21/2023 7:00 EST Temperature 98.1 DegF Temperature Route Oral Pulse Rate 77 bpm Respiratory Rate 18 br/min Systolic Blood Pressure 118 mm Hg Diastolic Blood Pressure 88 mm Hg H Blood pressure sites Arm, left Oxygen Saturation 97 % Mode of Delivery (Oxygen) Room air . Narrative/Incidental A&Ox4, calm and cooperative, c-collar in place. Pt c/o 9/10 neck pain, oxycodone and Dilaudid administered as ordered w/ positive effects. LS diminished throughout, remains on RA. No edema present, +PP. Pt is continent of both urine and stool, urinal at bedside. +BSx4, abd soft/nontender and last BM 09/17. Pt is tolerating regular diet and oral fluid intake. Skin C/D/I. Pt ambulates w/ 1 assist. POC TID, coverage as ordered. R FA IV Patent. Pt now resting comfortably, call henriquez within reach, bed alarm on and safety maintained. . Discharge Information Pulmonary Rehab Discharge : Pulmonary Rehab Discharge Status 09/18/2023 23:01 EST CPAP/BiPAP Mask Type Full CPAP/BiPAP Mask Size Medium 09/17/2023 2:30 EST CPAP/BiPAP Mask Type Full CPAP/BiPAP Mask Size Medium 09/16/2023 21:55 EST CPAP/BiPAP Mask Type Full CPAP/BiPAP Mask Size Medium * Juma RUDD, Jayjay Pinto: PERFORM, MODIFY, MODIFY Event Display: Progress Note Hospital Authored Date: Patient: ??JAMARCUS BARBOSA ? Age:??52 Years?Sex:??Male?:??1970?? Provider Clinical Summary Postop day 2 C3 C6 laminectomy and??posterior fusion Subjective Complains of mild neck pain??however??he stated that he did see improvement.?? Numbness particularly about the left hand??patient indicates that this??improved??including strength.?? Denies radicularpain. Objective Vitals & Measurements T:??98.1?F?? TMIN:??97.1?F?? TMAX:??98.6?F?? HR:??77??(Peripheral)?? RR:??18?? BP:??118/88?? SpO2:??97%?? Physical Exam Medical record intensity Cervical collar is in place ?? Grossly intact Following commands Examination of the extremities revealed easily palpable radial, femoral and pedal pulses. There wasno cyanosis, clubbing or edema. She will follow-up bilaterally Sensation??decreased bilateral hand Assessment/Plan 52-year-old male status post C3 C6 laminectomy with posterior fusion ?? Keep c-collar in place Pain control Muscle relaxant??bowel regimen Neurosurgery follow-10/01/23 @1:45pm Dressing removed Neurosurgery discharge instructions is place electronically in discharge workflow Any questions page [id number] signing off Medications Inpatient Acetaminophen Tablet, 650 mg, By Mouth, Every 4 hours albuterol CFC free 90 mcg/inh inhalation aerosol, 180 mcg= 2 puffs, Inhalation, Every 4 hours, PRN atorvastatin 40 mg oral tablet, 40 mg, By Mouth, Daily Bolus D5%/LR 500mL (PACU ONLY) 500 mL, 500 mL, IV Infusion, Once Dextrose 50% Inj Syringe (25Gm), 12.5 Gm, IV Push Slowly, Every 20 minutes, PRN Dextrose 50% Inj Syringe (25Gm), 25 Gm, IV Push Slowly, Every 15 minutes, PRN Dilaudid Inj, 0.5 mg= 0.5 mL, IV Push Slowly, Every 4 hours, PRN Docusate Sodium Capsule, 100 mg= 1 capsule, By Mouth, 2 times a day, PRN Enoxaparin Inj, 40 mg= 0.4 mL, Subcutaneous Injection, Daily FLUoxetine 20 mg oral capsule, 60 mg, By Mouth, Daily gabapentin 300 mg oral capsule, 300 mg, By Mouth, 3 times a day Glucagon Inj, 1 mg, Intramuscular, Once, PRN Glucose Gel, 15 Gm, By Mouth, Every 20 minutes, PRN Glucose Gel, 30 Gm, By Mouth, Every 20 minutes, PRN Insulin LISPRO Sliding Scale, 2-10 units, Subcutaneous Injection, 3 times a day before meals Melatonin Tablet, 3 mg, By Mouth, Daily at bedtime, PRN MiraLax Powder, 17 Gm= 1 pack/packet, By Mouth, Daily, PRN NaCL 0.9% Flush, 3 mL, IV Push, Every 8 hours NaCL 0.9% Flush, 3 mL, IV Push, Every 8 hours, PRN nitroglycerin 0.4 mg sublingual tablet, 0.4 mg, Sublingual, Every 5 minutes, PRN Ondansetron Inj, 8 mg, IV Push, Every 6 hours, PRN OxyCONTIN 10 mg oral tablet, extended release, 20 mg, By Mouth, Every 12 hours propranolol 20 mg oral tablet, 40 mg, By Mouth, 2 times a day risperiDONE 1 mg oral tablet, 4 mg, By Mouth, Daily at bedtime Robitussin DM Liquid, 10 mL, By Mouth, Every 4 hours, PRN Senna Tablet, 8.6 mg= 1 tablet, By Mouth, 2 times a day, PRN Simethicone Tablet, 80 mg, Chew, 3 times a day, PRN tiZANidine 4 mg oral tablet, 2 mg, By Mouth, 3 times a day Trazodone Tablet, 50 mg, By Mouth, Daily at bedtime, PRN Home aspirin 81 mg oral delayed release tablet, 81 mg, By Mouth, Daily, 11 refills atorvastatin 40 mg oral tablet, 40 mg= 1 tablet, By Mouth, Daily, 11 refills FLUoxetine 20 mg oral capsule, 60 mg= 3 capsule, By Mouth, Daily, 11 refills gabapentin 300 mg oral capsule, 300 mg= 1 capsule, By Mouth, 2 times a day, 11 refills nitroglycerin 0.4 mg sublingual tablet, 0.4 mg= 1 tablet, Sublingual, Every 5 minutes, PRN OxyCONTIN 15 mg oral tablet, extended release, 15 mg= 1 tablet, By Mouth, Every 12 hours propranolol 20 mg oral tablet, 2 tablet, By Mouth, 2 times a day, 11 refills risperiDONE 2 mg oral tablet, 4 mg= 2 tablet, By Mouth, Daily at bedtime, 11 refills traZODone 100 mg oral tablet, 50 mg= 0.5 tablet, By Mouth, Daily at bedtime, 11 refills Ventolin HFA 108 mcg/inh inhalation aerosol with adapter, 2 puffs, Inhalation, 4 times a day, PRN, 11 refills Total Time Spent ? including medical decision making of Low Complexity (20-29 minutes for established patient) * Orlando Mcallister RN: PERFORM, SIGN, VERIFY Event Display: Progress Note Hospital Authored Date: [id number] Patient: JAMARCUS BARBOSA Age: 52 years Sex: Male : 1970 Associated Diagnoses: None Author: Orlando Mcallister RN Findings Problem Related to Alteration in Neurological : Alteration in Neurological Function/new 09/20/2023 12:00 EST Alteration in Neuro status Related to Other: Syncope Goals & Outcomes, Neurological Lab studies/diagnostic tests [...] psychosocial support as needed, Pt/caregiver will state understanding of rehab plan, Pt/caregiver will state strategies to reduce risk factors, Pt/caregiver will state understanding aspiration precautions, Pt/caregiver will state understanding dietary modifications, Pt/caregiver will state understanding of disease process, Pt/caregiver will state understanding of plan/goals of care, Pt/caregiver will state understanding of the D/C plan, Resolved problem, Goals/Outcomes met Interventions, Neurological Assess/monitor neurologic status, Assess/monitor VS per unit standards & prn, Call/Report variances in assessments to provider, Maintain patient safety if unsteady gait, Monitor for headaches, nausea, vomiting, Monitor speech fluency, aphasia, word finding difficulty, Physical assessment per unit standards, Provide emotional support to Pt/caregiver, Teach pt/caregiver discharge plan & follow up care, Teach pt/caregiver on plan of care, treatment, s/s & meds Goals/Interventions, Neurological Yes Neurological, Problem Start 09/14/2023 13:00 Reviewed plan with, Neurological Patient Patient Progression, Neurological Pt progressing according to plan . Nursing Data Neurological Data. : Neurological Data. 09/20/2023 21:00 EST Neurological Symptoms None Level of Consciousness Full Consciousness Orientated to person, place, time Person, Place, Time, Event Hallucinations None Facial Symmetry Intact Characteristics of Speech Clear and normal Swallowing Difficulty None Pupil description, left Regular Pupil description, right Regular Pupil reaction, left Brisk Pupil reaction, right Brisk Strength LUE 5-Active movement against gravity & full resistance Strength RUE 5-Active movement against gravity & full resistance Strength LLE 5-Active movement against gravity & full resistance Strength RLE 5-Active movement against gravity & full resistance Tone LUE Normal Tone RUE Normal Tone LLE Normal Tone RLE Normal Sensation LUE Intact Sensation RUE Intact Sensation LLE Intact Sensation RLE Intact Movement LUE Spontaneous, To command Movement RUE Spontaneous, To command Movement LLE Spontaneous, To command Movement RLE Spontaneous, To command Gait Unsteady Response Eye Opening Spontaneously Motor Response-Adult Obeys commands Verbal Response-Adult Oriented and converses Kika Coma Score 15 1 - 10 Pain Scale Score 8 Pain Interventions Pharmacological, PRN medication Pain relief acceptable Yes Neuro WNL except Memory Intact Swallow - Neuro Normal . Narrative/Incidental Pt is A&O x4. NSR on monitor. Lungs clear and diminished, SpO2 >95% on RA. Pt c/o severe back pain, scheduled ER 20 mg Oxycodone given w/ some relief, see MAR. Denies CP, SOB, Dizziness, and/or Lightheadedness. +Radial/DP pulses. +5 strength throughout extremities/sensation intact. Nora Collar remains in place. Medication administered as ordered. Bed alarm on and in lowest position, call b ell left within reach, non-skid socks on pt in bed, all safety maintained.. Note * Maureen Luz RN: PERFORM Event Display: Discharge/Transfer Note Hospital Authored Date: [id number] Nursing Discharge Note Entered On: 09/21/2023 16:11 EST Performed On: 09/21/2023 16:11 EST by Maureen Luz RN Nursing Discharge Note 2 Verbalized Understanding of D/C Plan By : Patient, Other: sister Instructions for Discharge Comments : Pt unable to read/write, sister signed paperwork, but then took signed paper home with her Discharge Comments : C-collar teaching completed by nurse wireless sales manager Ira Jeronimo RN - 09/21/2023 16:17 EST Discharge Time : 09/21/2023 16:10 EST Discharge Level of Care at Discharge : Homehealth/VNA Discharge VNA/Hospice/Home Care(v001) : [facility] [phone] Patient Left Unit Via : Wheelchair Patient Accompanied Off Unit with : Responsible adult Maureen Luz RN - 09/21/2023 16:11 EST DC Instructions Provided & Signed by Pt : Unable Ira Wright RN - 09/21/2023 16:17 EST Patient Understands D/C Instructions : Yes Maureen Luz RN - 09/21/2023 16:11 EST Patient Instructions Discharge Signed : No Ira Wright RN - 09/21/2023 16:17 EST Did Pt have Specialty Bed or Wound Vac : No Maureen Luz RN - 09/21/2023 16:11 EST * Willi Cabezas MD: PERFORM Willi Cabezas MD: PERFORM, MODIFY Willi Cabezas MD: MODIFY Event Display: Discharge/Transfer Note Hospital Authored Date: Patient: ??JAMARCUS BARBOSA ? Age:??52 Years?Sex:??Male?:??1970?? Patient Information Discharge Location: [facility] Primary Care Physician: Alonzo Esposito MD Admit Date/Time: 09/14/23 12:17 Discharge Disposition Discharge Disposition: Home: No Services Discharge Diagnosis Cervical myelopathy (G95.9) Syncope (R55) GERD (gastroesophageal reflux disease) Hyperlipidemia Lower back pain Obstructive sleep apnea ?? _ Discharge Medications Albuterol (Ventolin HFA 108 mcg/inh inhalation aerosol with adapter)?2?puff(s)?Inhalation?4 times a day?as needed? NEEDED FOR WHEEZING Aspirin (aspirin 81 mg oral delayed release tablet)?81?Milligram?By Mouth?Daily Atorvastatin (atorvastatin 40 mg oral tablet)?1?tab(s)?40?Milligram?By Mouth?Daily?for 30?Days Fluoxetine (FLUoxetine 20 mg oral capsule)?60?Milligram?3?capsule?By Mouth?Daily?TAKE 3 CAPSULES BY MOUTH EVERY DAY IN THE MORNING Gabapentin (gabapentin 300 mg oral capsule)?300?Milligram?1?capsule?By Mouth?2 times a day Nitroglycerin (nitroglycerin 0.4 mg sublingual tablet)?1?tab(s)?0.4?Milligram?Sublingual?Every 5 minutes?as needed?Chest Pain Oxycodone (OxyCONTIN 10 mg oral tablet, extended release)?20?Milligram?By Mouth?Every 12 hours Oxycodone (oxyCODONE 5 mg oral tablet)?5?Milligram?1?tablet?By Mouth?Every 6 hours?as needed?as needed for pain Propranolol (propranolol 20 mg oral tablet)?2?tablet?By Mouth?2 times a day Risperidone (risperiDONE 2 mg oral tablet)?4?Milligram?2?tablet?By Mouth?Daily atbedtime?Rx'd ??by psychiatry Trazodone (traZODone 100 mg oral tablet)?50?Milligram?0.5?tablet?By Mouth?Daily at bedtime ? Medications Started Oxycodone Medications Discontinued None Doses Changed None PCP Follow-Up/Heads-Up Patient was admitted for cervical myelopathy and is now s/p laminectomy. I have discharged him withoxycodone for pain. Future Appointments Sunday 1:45 PM EST ?? With: Clint Puga MD Where: [facility] [address] [place] [address] Drive [address] [place] [address]- Status: Pending Sunday 9:00 AM EST ?? With: Alonzo Esposito MD Where: [address] [address]- Status: Pending 2023 1:00 PM EST ?? Where: [address] [address]- Status: Pending Objective Assessment and Plan diabetes mellitus, history of MARIA G,??history of chronic pain??on opiate pain medications,??prior syncopal episodes??presenting to outside ED??with increasing??left upper extremity??numbness and weakness??and increasing weakness in the left lower extremity??and headache??and a syncopal episode ?? Cervical myelopathy (G95.9):?? recent MRI revealed cervical cord edema??versus??ischemia at the level of C4,??has known??cervical myelopathy with stenosis at C3-C4 and C5-C6. Had cervical laminectomy/fusion on 09/19 with improvement in strength of left side. Plan: -oxycontin ER to 20mg BID -Oxycodone 5mg Q6H for breakthrough pain -keep C-collar in place -Follow up with neurosurgery. ? Vasovagal Syncope (R55):?? Patient has had multiple episodes like this in the past, had an echocardiogram??on 08/31/2023 that revealed preserved EF and no regional wall motion abnormalities and no significant valvular abnormalities.?? Per neuro, likely vasovagal secondary to pain flare from cervical??meylopathy Plan: -DC telemetry -Outpatient follow up ? Vital Signs?? Temperature: 97.6 DegF (09/21/23 11:00:00) Temperature Route: Temporal (09/21/23 11:00:00) Pulse Rate: 77 bpm (09/21/23 11:00:00) Pulse Rate, Lyin bpm (09/21/23 11:32:00) Systolic Blood Pressure, Lyin mm Hg (09/21/23 11:32:00) Diastolic Blood Pressure, Lyin mm Hg (09/21/23 11:32:00) Pulse Rate, Sittin bpm (09/21/23 11:32:00) Systolic Blood Pressure, Sittin mm Hg (09/21/23 11:32:00) Diastolic Blood Pressure, Sittin mm Hg (09/21/23 11:32:00) Pulse Rate, Standin bpm (09/21/23 11:32:00) Systolic Blood Pressure, Standin mm Hg (09/21/23 11:32:00) Diastolic Blood Pressure, Standin mm Hg (09/21/23 11:32:00) Respiratory Rate: 18 br/min (09/21/23 13:12:00) Systolic Blood Pressure: 106 mm Hg (09/21/23 11:00:00) Diastolic Blood Pressure: 66 mm Hg (09/21/23 11:00:00) Blood pressure sites: Arm, left (09/21/23 11:00:00) Pulse Pressure: 40 mm Hg (09/21/23 11:00:00) Oxygen Saturation: 98 % (09/21/23 11:00:00) Mode of Delivery (Oxygen): Room air (09/21/23 11:00:00) Early Warning Score: 6 (09/21/23 13:14:19) ? . Physical Exam General Appearance: The patient is in NAD. Cardiovascular: RRR S1 and S2 heard with no M/R/G. No JVD. Respiratory: ??Breath sounds clear to auscultation bilaterally. No wheezing. Good air movement throughout both lungs. GI: Soft. Nontender and nondistended. Normal bowel sounds present throughout abdomen.?? MS: ??No edema or erythema in the lower extremities. No wounds seen on the feet. Peripheral sensation intact.?? Neuro: ??No slurred speech. ??Patient seen moving their upper and lower extremities independently. Psych: Alert and oriented x3. Appropriate and pleasant. Surgical Procedures Laminectomy Fusion Instrumentation Poste 09/19/2023 08:31 Consultants Neurosurgery Pending Results Basic Metabolic Panel ordered on 09/21/2023 CBC ordered on 09/21/2023 Patient Education Titles Neurosurgery-Cervical Fusion Post-Op?? Follow-Up Appointments Added Follow Up ?Time Frame ?Comments Alonzo Esposito MD Patient Instructions You??were admitted with neurologic pain from cervical stenosis that required surgery. You were prescribed pain medication on discharge. Keep your neck collar on.? You are to take Oxycodone ER 20mg every 12 hours (once in the morning, and once at night.) You also have a prescription for oxycodone 5mg that you can take every 6 hours for breakthrough pain. Please only take this medication if your pain is out of control. ? You have a follow up appointment with neurosurgery??on??10/01/23 at 1:45pm Home Health Face to Face *Denotes mandatory garcia ?? *I certify that this patient is under my care and that I or an allowed non- physician working with me had a face to face encounter with the patient on this date:??09/21/2023 14:02 ?? *The encounter with the patient was in whole, or in part, for the following medical condition, which is the primary diagnosis(es) for home health care:??Cervical myelopathy (G95.9) Syncope (R55) GERD (gastroesophageal reflux disease) Hyperlipidemia Lower back [...] (select all that apply): [_] None [_] ADL Management [_] Fall prevention training [_] Energy conservation [_] Cognitive training Other _ Physical Therapy (select all that apply): [_] None [x_] Functional mobility training [_x] Home exercise program to strengthen [_x] Increase ROM?? [_] Falls prevention training [_] Home maintenance program for chronic disease Other _ Speech Therapy (select all that apply): [_] None [_] Swallow evaluation and training [_] Speech and language training [_] Cognitive training to process, organize, and/or recall information Other _ ? *Homebound due to (select all that apply): [x_] Inability to leave home without assistance/supervision [_] Inability to ambulate without assistance [_] Pain [_] Decreased strength and endurance [_] Unsteady gait [_] Severe SOB and fatigue [_] Impaired transfers [_] Inability to negotiate stairs [_] Limited weight bearing [_] Mental status change? *Physician Signature:??Willi Cabezas MD ?? *By signing this, I certify that I have personally evaluated the patient and agree with the findings and recommendations as documented above. ? Results Discharge Labs BLOOD COUNT & DIFF WBC 21.5 k/mm3 (High)?? 09/20/2023 02:07 RBC 5.31 m/mm3 ()?? 09/20/2023 02:07 Hgb 14.6 Gm/dL ()?? 09/20/2023 02:07 Hct 45.2 % ()?? 09/20/2023 02:07 MCV 85.1 femtoliters ()?? 09/20/2023 02:07 MCH 27.5 pg ()?? 09/20/2023 02:07 MCHC 32.3 g/dL (Low)?? 09/20/2023 02:07 Platelet Count 293 k/mm3 ()?? 09/20/2023 02:07 RDW-SD 43.6 femtoliters ()?? 09/20/2023 02:07 MPV 10.8 femtoliters ()?? 09/20/2023 02:07 Nucleated RBC (Automated) 0.0 #/100 WBC'S ()?? 09/20/2023 02:07 Abs. NRBC 0.0 k/mm3 ()?? 09/20/2023 02:07 Abs. Neut 15.5 k/mm3 (High)?? 09/19/2023 01:31 Abs. Lymph 1.4 k/mm3 ()?? 09/19/2023 01:31 Abs. [place] 1.5 k/mm3 (High)?? 09/19/2023 01:31 Abs. Eo 0.0 k/mm3 ()?? 09/19/2023 01:31 Abs. Baso 0.0 k/mm3 ()?? 09/19/2023 01:31 Neut % 82.5 % (High)?? 09/19/2023 01:31 Lymph % 7.4 % (Low)?? 09/19/2023 01:31 [place] % 7.8 % ()?? 09/19/2023 01:31 Eos % 0.0 % ()?? 09/19/2023 01:31 Baso % 0.2 % ()?? 09/19/2023 01:31 Imm Gran 2.1 % ()?? 09/19/2023 01:31 Abs. Imm Gran 0.4 k/mm3 ()?? 09/19/2023 01:31 ?? CHEM GENERAL Sodium 132 mmol/L (Low)?? 09/20/2023 02:07 Potassium 4.6 mmol/L ()?? 09/20/2023 02:07 Chloride 94 mmol/L (Low)?? 09/20/2023 02:07 Bicarbonate Level 24 mmol/L ()?? 09/20/2023 02:07 Anion Gap 14 ()?? 09/20/2023 02:07 Glucose Level 137 mg/dL (High)?? 09/20/2023 02:07 Glucose, POC 107 mg/dL (High)?? 09/21/2023 11:18 BUN 21 mg/dL (High)?? 09/20/2023 02:07 Creatinine-Blood 0.7 mg/dL ()?? 09/20/2023 02:07 Estimated GFR Creatinine 112 ML/MIN/1.73 M2 ()?? 09/20/2023 02:07 Calcium 8.9 mg/dL ()?? 09/20/2023 02:07 Magnesium 2.2 mg/dL ()?? 09/19/2023 01:31 ?? COAG INR 1.0 ()?? 09/19/2023 01:31 Protime (PT) 11.0 seconds ()?? 09/19/2023 01:31 ?? HEME OTHER Hold Lavender Top SPECIMEN DISCARDED AFTER 24 HOURS. ()?? 09/15/2023 00:29 ? URINE OTHER Est Creatinine Clearance 110.04 mL/min ()?? 09/20/2023 03:58 ? 30 minutes spent on discharge ?? Patient was??seen and plan of care discussed with ??Lana ?? Willi Cabezas MD Internal Medicine PGY-3 Pager #[phone] * Scotty Schwartz MD: PERFORM Event Display: Discharge/Transfer Note Hospital Authored Date: Attending Attestation:??I have seen and evaluated this patient. ??I have discussed the case and itsmanagement with the resident and agree with the findings and plan as documented in the resident???snote. * Adriana GOLDEN, Ira: MODIFY, PERFORM Event Display: Patient Education/Instruction Authored Date: [id number] Inpatient Adult Discharge Instructions [address] [address] Name: JAMARCUS BARBOSA : 1970 Visit: 09/14/2023 12:17:00 Current Date: 09/21/2023 14:16 Account: [id number] Inpatient Adult Discharge Instructions We would like [...] and their families. Surveys are administered by [employer] ?? If further treatment with your primary care physician or another doctor is recommended, it is important for you to keep the appointment. Call your primary care physician or return to the Emergency Department immediately if your condition worsens, fails to improve, or new symptoms develop. If you need to find a doctor, you can call [facility] [employer] [facility] for a referral at [phone] or toll free at [phone]) or log in to [email or web address].. ?? [facility], in keeping with [facility] guidance, no longer requires face masks for [...] a health care [facility] of your choosing. [employer] is a website that allows you to securely view your medical information including your hospital discharge summary, office visit summaries, medications and follow-up visits. You can also request appointments, renew medications, and request access to your medical information using a health care lenore of your choosing, or just ask a question. You can enroll at [email or web address] or register during your next office visit. You have been discharged from [facility], Patient Care Unit: D5A. If you have any questions regarding these instructions after you leave, please call us and we will be happy to assist you. [facility] Your Care Team Attending Physician Lana RAWLS, Scotty Discharging Providers Raulito RAWLS, Willi Reason for Admission CORD COMPRESSION SYNCOPE Your Diagnosis Syncope Cervical myelopathy Tests Performed Below is a partial list of the tests performed during your hospitalization. You may have had other tests and procedures not included in this list. Please discuss all test results with your provider. Basic Metabolic Panel?-- Results Pending -- BUN Calcium Level CBC?-- Results Pending -- CBC w/ Differential Creatinine Electrolytes GLUCOSE POC HOLD LAVENDER TUBE Magnesium Level PT (INR) XR C-Arm > 1 Hour XR Cervical Spine 3 Views or Less You will be contacted within 72 hours with your results. Primary Care Provider Alonzo Esposito MD Advance Directive Health Care Proxy on File Yes - Health Care Proxy Discharge Vitals Temperature: 97.6 DegF Height: 166 cm Pulse Rate: 77 bpm Weight: 90 kg Respiratory Rate: 18 br/min Body Mass Index:??32.73 kg/m2??Critical Systolic Blood Pressure: 106 mm Hg Body surface area: 2.04 Diastolic Blood Pressure: 66 mm Hg ?? Oxygen Saturation: 98 % ?? Studies Pending All tests and labs ordered during this hospital stay have been completed unless listed below. Please discuss all pending results with your provider listed above in these instructions. ?? Basic Metabolic Panel CBC What to do next Instructions From Your Doctor You??were admitted with neurologic pain from cervical stenosis that required surgery. You were prescribed pain medication on discharge. Keep your neck collar on.? You are to take Oxycodone ER 20mg every 12 hours (once in the morning, and once at night.) You also have a prescription for oxycodone 5mg that you can take every 6 hours for breakthrough pain. Please only take this medication if your pain is out of control. ? You have a follow up appointment with neurosurgery??on??10/01/23 at 1:45pm Discharge Orders Scheduled Follow-Up Appointments Sunday 1:45 PM EST ?? With: Clint Puga MD Where: [address] [place] [address]- Status: Pending Sunday 9:00 AM EST ?? With: Alonzo Esposito MD Where: [facility] [address] [place] [address]- Status: Pending 2023 1:00 PM EST ?? Where: [facility] [address] [place] [address]- Status: Pending You Need to Schedule the Following Appointments Follow Up with??Alonzo Esposito MD Where: ?? Discharge Medications JAMARCUS BARBOSA :1970 Visit Date:09/14/2023 Medications: Please continue your medications until treatment is completed or stopped by your provider. Medications not listed below should be discontinued. Discuss any questions related to medications with your provider. What How Much When Instructions Next Dose Changed Oxycodone (oxyCODONE 5 mg oral tablet) 1 tab(s) Oral Every 6 hours as needed for as needed for pain Pickup at [facility] Take as prescribed Changed Oxycodone (OxyCONTIN 10 mg oral tablet, extended release) 20 Milligram Oral Every 12 hours Pickup at [facility] Tonight 09/21/23 9pm Unchanged Albuterol (Ventolin HFA 108 mcg/ inh inhalation aerosol with adapter) 2 puff(s) Inhalation 4 times a day as needed for NEEDED FOR WHEEZING Take as prescribed Unchanged Aspirin (aspirin 81 mg oral delayed release tablet) 81 Milligram Oral Daily Not given, okay to resume Unchanged Atorvastatin (atorvastatin 40 mg oral tablet) 1 tab(s) Oral Daily Duration: 30 Days Tonight 09/21/23 9pm Unchanged Fluoxetine (FLUoxetine 20 mg oral capsule) 3 capsule Oral Daily TAKE 3 CAPSULES BY MOUTH EVERY DAY IN THE MORNING ?? Tomorrow 09/22/23 9am Unchanged Gabapentin (gabapentin 300 mg oral capsule) 1 capsule Oral Twice a day Tonight 09/21/23 9pm Unchanged Nitroglycerin (nitroglycerin 0.4 mg sublingual tablet) 1 tab(s) Sublingual Every 5 minutes as needed for Chest Pain Take as prescribed Unchanged Propranolol (propranolol 20 mg oral tablet) 2 tab(s) Oral Twice a day Tonight 09/21/23 9pm Unchanged Risperidone (risperiDONE 2 mg oral tablet) 2 tab(s) Oral Daily at Bedtime Rx'd ??by psychiatry ?? Tonight 09/21/23 9pm Unchanged Trazodone (traZODone 100 mg oral tablet) 0.5 tab(s) Oral Daily at Bedtime Tonight 09/21/23 9pm Pharmacy Information [facility]: [address], [place] [id number] [phone] Test Results Below is a partial list of the most recent Laboratory test results done prior to this discharge. You may have had other tests and procedures not included in this list. Please discuss all test resultswith your provider. Est Creatinine Clearance - 110.04 mL/min (09/20/2023) BUN (09/15/2023) ???BUN - 19 mg/dL Calcium Level (09/15/2023) ???Calcium - 9.3 mg/dL CBC w/ Differential (09/19/2023) ???WBC - 18.8 k/mm3???RBC - 5.31 m/mm3???Hgb - 14.8 Gm/dL???Hct - 45.5 %???MCV - 85.7 femtoliters???MCH - 27.9 pg???MCHC - 32.5 g/dL???Platelet Count - 290 k/mm3???RDW-SD - 44.1 femtoliters???MPV - 10.9 femtoliters???Nucleated RBC (Automated) - 0.0 #/100 WBC'S???Abs. NRBC - 0.0 k/mm3???Abs. Neut - 15.5 k/mm3???Abs. Lymph - 1.4 k/mm3???Abs. [place] - 1.5 k/mm3???Abs. Eo - 0.0 k/mm3???Abs. Baso - 0.0 k/mm3???Neut % - 82.5 %???Lymph % - 7.4 %???[place] % - 7.8 %???Eos % - 0.0 %???Baso % - 0.2 %???Imm Gran - 2.1 %???Abs. Imm Gran - 0.4 k/mm3 Creatinine (09/15/2023) ???Creatinine-Blood - 0.9 mg/dL???Estimated GFR Creatinine - 104 ML/MIN/1.73 M2 Electrolytes (09/15/2023) ???Sodium - 138 mmol/L???Potassium - 4.4 mmol/L???Chloride - 101 mmol/L???Bicarbonate Level - 25 mmol/L???Anion Gap - 12 GLUCOSE POC (09/21/2023) ???Glucose, POC - 107 mg/dL HOLD LAVENDER TUBE (09/15/2023) ???Hold Lavender Top - SPECIMEN DISCARDED AFTER 24 HOURS. Magnesium Level (09/19/2023) ???Magnesium - 2.2 mg/dL PT (INR) (09/19/2023) ???INR - 1.0???Protime (PT) - 11.0 seconds Allergies (NKA means No Known Allergies) Shrimp lisinopril??(Angioedema) Problems Active Problems??(17) Cauda equina syndrome?? Chest pain?? Controlled substance agreement signed 05/29/2023?? Depression?? Diabetes?? Fatty infiltration of liver?? GERD (gastroesophageal reflux disease)?? Health [facility], active care coordination [facility] [phone]?? HTN (hypertension)?? Hyperlipidemia?? Illiteracy?? Lower back pain?? Lumbar radiculopathy?? Obese class I?? Obstructive sleep apnea?? Psychotic disorder?? Tubular adenoma of colon?? Education Materials Below is the list of Educational Leaflet Providered with your Discharge Instructions. Neurosurgery-Cervical Fusion Post-Op?? Valuables and Belongings I fully understand and agree that [facility] accepts no responsibility for all my personal [...] encouraged to send valuables and belongings home. ? Other Discharge Information ? Pulmonary Rehab Status?? Pulmonary Rehab Discharge Status?? CPAP/BiPAP Mask Type: Full CPAP/BiPAP Mask Size: Medium Respiratory Rate: 18 br/min ? Common Emergency [...] are strongly encouraged to quit. Please call [facility] [facility] at [phone] or [phone] ([phone]) or log in to [email or web address] for referrals to smoking cessation programs. ?? 937 Suicide & Crisis Lifeline is available 07/05 if you or someone you know needs to find a reason to keep living. By calling 399 you'll be connected to a skilled, trained counselor at a crisis center in your area. INPATIENT DISCHARGE INSTRUCTIONS SIGNATURE JAMARCUS URBAN Location:[facility] Registration Date and Time:09/14/2023 12:17 EST Primary Care Physician: Alonzo Esposito MD, Attending Physician: Scotty Schwartz MD, I JAMARCUS BARBOSA, have received the above patient education materials/instructions and have verbalized understanding. If ambulance or transport services are being used I further acknowledge being given a choice of service. ?? If you need to contact me, please call me at this number: . Patient/Set Up Operator Name: Patient/Set Up Operator Signature: Relationship to Patient: Witness Name/Signature: Date: * Ira Wright RN: PERFORM Event Display: Patient Education Leaflets Authored Date: [id number] Back Care Tips ?? [id number] Back Care Tips Caring for your back These are things you can do to prevent a recurrence of acute back pain and to reduce symptoms from chronic back pain: ??? Stay at a healthy weight. If you are overweight, losing weight will help mosttypes of back pain. ??? Exercise is an important part of recovery from most types of back pain. Themuscles behind and in front of the spine support the back. This means strengthening both the back muscles and the belly (abdominal) muscles will provide better support for your spine.? Swimming and brisk walking are good overall exercises to improve your fitness level. ??? Practice safe lifting methods (see below). ??? Practice good posture when sitting, standing, and walking. Don't sit for a long time. This puts more stress on the low back than standing or walking. ??? Wear quality shoes with good arch support. Foot and ankle alignment can affect back symptoms. Don't wear high heels. ??? Therapeutic massage can help relax the back muscles without stretching them. ??? During the first 24 to 72 hours after an acute injury or flare-up of chronic back pain, put an ice pack on the painful area for 20 minutes and then remove it for 20 minutes. Do this over a period of 60 to 90 minutes, or several times a day. As a safety precaution, don't use a heating pad at bedtime. Sleeping on a heating pad can lead to skin doty or tissue damage. ??? You can alternate using ice and heat. ?? Medicines Talk with your healthcare provider before using medicines, especially if you have other health problems or are taking other medicines. ??? You may use kvrh-dgh-swbeehi medicines, such as acetaminophen, ibuprofen, or naproxen to control pain, unless your healthcare provider prescribed other pain medicine. Talk with your provider before taking any medicines if you have a long-term (chronic) condition, such as diabetes, liver or kidney disease, stomach ulcers, or digestive bleeding, or are taking blood thinners. ??? Be careful if you are given prescription pain medicines, opioids, or medicine for muscle spasm. They can cause drowsiness, and affect your coordination, reflexes, and judgment. Don' t drive or operate heavy machinery while taking these types of medicines. Take prescription pain medicine only as prescribed by your provider. ?? Lumbar stretch This simple stretch will help relax muscle spasm and keep your back more limber. If exercise makes your back pain worse, don???t do it. ??? Lie on your back with your knees bent and both feet on the ground. ??? Slowly raise your left knee to your chest as you flatten your low back against the floor. Hold for 5 seconds. ??? Relax and repeat the exercise with your right knee. ??? Do 10 of these exercises for each leg. ?? Safe lifting method ??? Don???t bend over at the waist to lift an object off the floor.?? Instead, bend your knees and hips in a squat.? Keep your back and head upright ??? Hold the object closeto your body, directly in front of you. ??? Straighten your legs to lift the object.? Lower the object to the floor in the reverse fashion. ??? If you must slide something across the floor, push it. ?? Posture tips Sitting Sit in chairs with straight backs or low-back support. Keep your knees lower than your hips, with your feet flat on the floor. When driving, sit up straight. Adjust the seat forward so you are not leaning toward the steering wheel.??A small pillow or rolled towel behind your low back may help if you are driving long distances.?? Standing When standing for long periods, shift most of your weight to one leg at a time. Switch legs every few minutes.?? Sleeping The best way to sleep is on your side with your knees bent. Put a low pillow under your head to support your neck in a neutral spine position. Don't use thick pillows that bend your neck to one side.Put a pillow between your legs to further relax your low back. If you sleep on your back, put pillows under your knees to support your legs in a slightly flexed position. Use a firm mattress. If yourmattress sags, replace it, or use a 1/2-inch plywood board under the mattress to add support. ?? Follow-up care Follow up with your??healthcare provider as advised. If X-rays, a CT scan, or an MRI scan were taken, they may be reviewed by a radiologist. You will betold of any new findings that may affect your care. ?? Call 911 Call 911 if any of the following occur: ??? Trouble breathing ??? Confusion ??? Very drowsy ??? Fainting or loss of consciousness ??? Very fast or very slow heart rate ??? Loss of??bowel or bladder control ?? When to get medical advice Call your healthcare provider right away??if any of these occur: ??? Pain becomes worse or spreads to your arms or legs ??? Weakness or numbness in 1 or both arms or legs ??? Numbness in the groin area ?? Last Reviewed Date: 2022 ?? 8216-1661 [employer]. All rights reserved. This information is not intended as a substitute for professional medical care. Always follow your healthcare professional's instructions. ?? * Ira Wright RN: PERFORM Event Display: Patient Education Leaflets Authored Date: [id number] Neurosurgery-Cervical Collar ?? 200 Hard Cervical Collar Your physician has determined that wearing a hard cervical collar will help your recovery. This is a two piece cervical collar that is designed to keep the upper portion of your spine from moving toomuch. Not being able to shake your head ???yes?? or ???no?? may seem unusual, but limiting these types of motions are an important part of your treatment. These instructions will help you apply andcare for your cervical collar. Adhering to these guidelines will help ensure safe and effective cervical care. ?? REMOVAL Before removing the cervical collar, note the location of the hook and loop straps. When you put the collar back on, the straps should be in the same position. You may use a pen or marker to naila theposition of the hook and loop straps. ? CLEANING & SKIN CARE Keeping your cervical collar and the skin beneath it clean is a very important part of your treatment.?? Proper cleaning will help prevent rashes and skin irritation. Cleaning the cervical collar requires at least one extra set of pads. If your collar did not come with extra pads, you may be able to purchase them from our local [facility] labs; phone number . You should also purchase an extra pad set as replacements, if your current pads are discolored or soiled. Your cervical collar and padding should be cleaned every day, or as often as your Health Rattling Machine Tender has recommended. A convenient time to do this may be when you bathe/shower, or at bedtime. Thiswill allow your extra set of pads to dry before reapplication. In any case, it is also important toclean your neck and check for any skin irritation when the collar is removed. ?1. The pads are attached to the actual brace with small circles of hook and loop. Remove the pads and wash them with mild hand soap and water. DO NOT use bleach, harsh chemicals or machine wash. Thoroughly rinse pads with clean water. Lay the pads on a clean, dry towel and gently pat out the moisture. Let them remain on a clean dry table and allow them to air dry. Do not machine dry. If the plastic shell becomes dirty/soiled, it can also be wiped with mild soap and water. The shell can now be wiped dry or air dried.? (Images 1A & 1B)??2. Attach the replacement pads to the shell in the proper orientation.??Note:The padding on the cervical collar has a notable white cotton side and a notable duarte side that covers the foam. The white cotton will always face out and have contact with the skin. To attach the pad correctly, fold the pads in half with the duarte side out. Then center the pad in the proper location on the plastic shell, so it extends past the edges of the brace.??3. Adjust the pads as needed to make sure no plastic touches the skin.?REAPPLICATIONIf you are applying by yourself lay flat and try to keep your head and neck as straight as possible. If you have a helper, he or she can put the collar on while you concentrate on keeping your head and neck straight. If you have long hair, it should remain outside of the cervical collar. If you wear earrings, they should be removed before applying the brace.?(Image 2)??1. supervisor mixing the front piece of the cervical collar. Pre-form the back ends of the side panels by squeezing them forcefully so they stay curved when released as shown in the picture (Image2)??2. Position the chin piece directly under the chin.??3. Push the sides of the front panel up over the shoulder muscles and around the neck.??4. Check to see that the back of the chin piece is notpressing inward on the throat. If it is, lift the back ends of the side panels up, off of the shoulder/ neck muscles. This should move the chin piece forward, away from the throat.?? (Image 3)??5. While holding the front panel in place, attach the Velcro straps from the back panel to each side of the cervical collar. Be sure to note the position of the back panel and ensure that it is centered on the back of your neck. To tighten the collar, anchor your thumb or fingers in the tracheal opening and peel back the Velcro strap on one side. Push inward on the back edge of the side panel while pulling the loop strap out.??Now lift the strap out and re-attach it to the Velcro. Keep the back panel centered by tightening the other side equally. Repeat until all of the ???slack?? has been removed and a secure fit has been achieved.?(Image 4) ??When the cervical collar is properly re-applied, your chin will be centered in the chin piece, with the chin flush to the front of the plastic. The sides and the back panel will overlap the sides of the front piece. No plastic should touch any part of your skin. A properly applied collar looks like the photos below.?Other instructions ??? Wear your collar at all times, except when changing padding, until your follow up appointment ??? Keep your collar properly tightened ??? Do not drive or operate machinery ??? Avoid strenuous activities ??Contact A Caregiver If: ??? You have signs of a pressure sore under the collar. These signs may include red, painful, and open areas of skin ??? You have chest pain or trouble breathing that is getting worse over time. ? * Ira Wright RN: PERFORM Event Display: Patient Education Leaflets Authored Date: [id number] Oxycodone Extended Release Oral Tablet ?? [id number] Oxycodone Extended Release Oral Tablet Brands: Oxycontin Uses For pain. ?? Instructions Swallow the medicine without crushing or chewing it. This medicine may be taken with or without food. Swallow with a full glass (8 oz) of water unless your doctor gives you different instructions. Store at room temperature away from heat, light, and moisture. Do not keep in the bathroom. Please ask your doctor, nurse, or pharmacist how to discard unused medicines safely. Only swallow one pill at a time. To reduce constipation, eat high fiber foods, drink plenty of water and exercise. Avoid grapefruit juice while on this medicine. If you forget a dose, just wait. Use the next dose at the usual time. Do not use 2 doses at once. Drug interactions can change how medicines work or increase risk for side effects. Tell your healthcare providers about all medicines taken. Include prescription and dosy-zot-paomcuo medicines, vitamins, and herbal medicines. Speak with your doctor or pharmacist before starting or stopping any medicine. Tell your doctor if symptoms do not get better or if they get worse. ?? Cautions This medicine has an opioid. Opioids help many people but may cause addiction, especially if used for a long time. The addiction risk is higher if you have a substance use disorder (overuse of or addiction to drugs or alcohol). Ask your doctor about the benefits and risks. Ask your doctor or pharmacist if you should have naloxone on hand to treat opioid overdose. Teach your family or household members about the signs of an opioid overdose and how to treat it. If you stop this medicine suddenly after using it for a long time, you may have withdrawal. Your doctor may slowly lower your dose before stopping it. Tell your doctor right away if you have symptoms, such as unusual sweating, watering eyes, runny nose, chills, diarrhea, yawning, muscle aches, restlessness, anxiety, trouble sleeping, or thoughts of suicide. Tell your doctor and pharmacist if you ever had an allergic reaction to a medicine. Do not use the medication any more than instructed. If possible, avoid using with alcohol, marijuana, or other medicines that can cause dizziness or drowsiness. These include allergy/cold products, muscle relaxers, sleep aids, and pain relievers. Your ability to stay alert or to react quickly may be impaired by this medicine. Do not drive or operate machinery until you know how this medicine will affect you. This medicine passes into breast milk. Ask your doctor before . This medicine can hurt a new baby in the womb. If you become while on this medicine, tell your doctor immediately. Your doctor may switch you to a different medicine. This medicine should be used with caution in patients with breathing difficulties. Call your doctor right away if you notice slow or shallow breathing. Do not share this medicine with anyone who has not been prescribed this medicine. Some patients have serious side effects from this medicine. Ask your pharmacist to show you the information from the Food and Drug Administration (FDA) and discuss it with you. ?? Side Effects The following is a list of some common side effects from this medicine. Please speak with your doctor about what you should do if you experience these or other side effects. ??? decreased appetite ??? constipation ??? dizziness or drowsiness ??? lightheadedness ??? nausea and vomiting If you have any of the following side effects, you may be getting too much medicine. Please contactyour doctor to let them know about these side effects. ??? confusion ??? fainting ??? unusual or unexplained tiredness or weakness ??? difficulty or discomfort urinating Call your doctor or get medical help right away if you notice any of these more serious side effects: ??? agitated feeling or trouble sleeping ??? decreased awareness or responsiveness ??? breathing interruption during sleep ??? shallow, irregular breathing ??? changes in memory, mood, or thinking ??? hallucinations (unusual thoughts, seeing or hearing things that are not real) ??? seizures ??? severe stomach or bowel pain ??? weight loss A few people may have an allergic reaction to this medicine. Symptoms can include difficulty breathing, skin rash, itching, swelling, or severe dizziness. If you notice any of these symptoms, seek medical help quickly. ?? Extra Please speak with your doctor, nurse, or pharmacist if you have any questions about this medicine. ?? [email or web address] IMPORTANT NOTE: This document tells you briefly how to take your medicine, but it does not tell youall there is to know about it. Your doctor or pharmacist may give you other documents about your medicine. Please talk to them if you have any questions. Always follow their advice. There is a more complete description of this medicine available in [place]ien. Scan this code on your smartphone or tablet or use the web address below. You can also ask your pharmacist for a printout. If you have any questions, please ask your pharmacist. The display and use of this drug information is subject to Terms of Use. Copyright(c) 2022 [employer]. ?? [employer]. All rights reserved. This information is not intended as a substitute for professional medical care. Always follow your healthcare professional's instructions. ?? Patient Care team information Care Team Personnel Name: Elvia Collins RN Position: [facility] RN Member Role: Primary Care Nurse Name: Macarena Lewis RN Position: [facility] RN Member Role: Primary Care Nurse Name: Mallory Lugo RN Position: [facility] RN Member Role: Primary Care Nurse Name: Carmen Gao RN Position: [facility] ED RN W/OE and Tasks Member Role: Primary Care Nurse Name: Dacia Evangelista RN Position: [facility] RN Member Role: Primary Care Nurse Name: Tracey Linares RN Position: [facility] AMB Nurse Member Role: Primary Care Nurse Name: Italia Ortega RN Position: [facility] RN Member Role: Primary Care Nurse Name: Catalina He RN Position: [facility] AMB Nurse Member Role: Primary Care Nurse Name: Jessica Lantigua RN Position: [facility] SN RN Member Role: Primary Care Nurse Name: Catalina Pack RN Position: [facility] SN RN Member Role: Primary Care Nurse Name: Clifford Gerber RN Position: [facility] RN Member Role: Primary Care Nurse Name: Doris Butler RN Position: [facility] RN Member Role: Primary Care Nurse Name: Aziza Poole RN Position: [facility] RN Member Role: Primary Care Nurse Name: Monet Miller RN Position: [facility] RN Member Role: Primary Care Nurse Name: Katheryn Wu RN Position: [facility] RN Member Role: Primary Care Nurse Name: Doris Dee RN Position: [facility] RN Member Role: Primary Care Nurse Name: Janae Soto RN Position: [facility] RN Member Role: Primary Care Nurse Name: Daphney Echols LPN Position: [facility] RN Member Role: Primary Care Nurse Name: Nini Odonnell RN Position: [facility] RN Member Role: Primary Care Nurse Name: Jennifer Thakkar RN Position: [facility] RN Member Role: Primary Care Nurse Name: Hyun cOhoa RN Position: [facility] RN Member Role: Primary Care Nurse Name: Yazmin Lay RN Position: [facility] RN Member Role: Primary Care Nurse Name: Nancy Magana RN Position: [facility] RN Member Role: Primary Care Nurse Name: Ranjana Zavala RN Position: [facility] RN Member Role: Primary Care Nurse Name: Melvi Carter RN Position: [facility] OB RN Member Role: Primary Care Nurse Name: Jackson Rosen RN Position: [facility] RN Member Role: Primary Care Nurse Name: Clarissa Rodriguez RN Position: [facility] RN Christinev Member Role: Primary Care Nurse Name: Ophelia Marie RN Position: [facility] RN Member Role: Primary Care Nurse Name: Nolvia Mendes RN Position: [facility] RN Member Role: Primary Care Nurse Name: Tyrone Germain RN Position: [facility] RN Member Role: Primary Care Nurse Name: Adi Rees RN Position: [facility] RN Member Role: Primary Care Nurse Name: Orlando Mcallister RN Position: [facility] RN Member Role: Primary Care Nurse Name: Alisa Mcallister RN Position: [facility] RN Member Role: Primary Care Nurse Name: Alonzo Esposito MD Position: [facility] Physician - Primary Care Member Role: PCP Address: Address: [address] [place] [address]- Name: Doroteo Morrow RN Position: [facility] RN Member Role: Primary Care Nurse Address: Address: [address] [place] [address]- Name: Cassidy Masters RN Position: [facility] RN Member Role: Primary Care Nurse Name: Juancarlos Valente RN Position: [facility] User Support Analyst Supervisor Member Role: Primary Care Nurse Name: Tran Wiseman RN Position: [facility] RN Member Role: Primary Care Nurse Care Team Related Persons Name: SYLVIA BARBOSA Address: home [address] [place] [id number] Name: GAGE HUNT Address: home [address] [place] [address] Name: JOCELYN HUNT Address: home [address] [place] [address]
--- OUTSIDE RECORDS SUMMARY | 2024-05-24 04:35 | XMS_ITS | Continuity of Care Document ---
Author Organization [facility] Address [address] [place] [address]- Care Team Providers Care Transformation Consultant Name Role Phone Alonzo Esposito MD Primary Care Physician Encounter [facility] Date(s): 09/25/23 - 10/25/[address] [id number] Allergies, Adverse Reactions, Alerts Substance Reaction Severity [...] influenza virus vaccine, inactivated 12/06/15 Give n [id number] 12y+ bivalent booster vax 11/03/22 Given SARS-CoV-2 mRNA (skyinno-dgsy-onsth) vax 01/26/22 Given SARS-CoV-2 mRNA (qmqzfpu-ndft-unusl) vax 12/28/21 Given tetanus/diphtheria/pertussis, acel(Tdap) 03/29/19 Given tetanus/diphtheria/pertussis, acel(Tdap) 09/10/17 Given pneumococcal 23-valent vaccine 04/08/18 Recorded pneumococcal 23-valent vaccine 04/22/17 Recorded pneumococcal 23-valent vaccine 12/21/12 Given Medications aspirin 81 mg oral delayed release tablet 81 mg, By Mouth, Daily, # 30 tablet, Refills , Tot. Refills 11, Maintenance, 09/12/23 17:42:00 EST, Route to Pharmacy Electronically, [facility] [id number], For blister pack please., 166, cm, 09/12/23 13:54:00 EST, Height, 9... Start Date: 09/12/23 Status: Ordered atorvastatin 40 mg oral tablet 1 tablet = 40 mg, By Mouth, Daily, # 30 tablet, 11 Refills, Maintenance, 09/12/23 17:42:00 EST, Tablet, [place], [place] - [id number], For blister pack please., 166, cm, 09/12/23 13:54:00 EST, Height, 93, kg, 09/06/23 16:15:00 EST, [email or web address] Start Date: 09/12/23 Stop Date: 09/06/24 Status: Ordered chlorhexidine topical 0.12% liquid See Instructions, SWISH AND SPIT DO NOT SWALLOW. USE 3-4 X/ DAY, # 473 mL, 0 Refills, Maintenance, 09/25/23 16:56:00 EST, [facility] ST[id number], 30, SWISH AND SPIT DO NOT SWALLOW. USE 3-4 X/ DAY, 166, cm, 09/21/23 11:32:00 EST, Height, 93, kg, 09/14/23 12:3... Start Date: 09/25/23 Status: Ordered docusate sodium 100 mg oral tablet 1 tablet = 100 mg, By Mouth, 2 times a day, PRN for constipation, # 60 tablet, 0 Refills, Maintenance, 09/27/23 13:27:00 EST, Tablet, [facility]/pharmacy #[id number], Partial fill upon patient request if the prescription is for a schedule II opioid drug., 166, cm,... Start Date: 09/27/23 Status: Ordered FLUoxetine 20 mg oral capsule 60 mg, 3, capsule, By Mouth, Daily, TAKE 3 CAPSULES BY MOUTH EVERY DAY IN THE MORNING, # 90 capsule, Refills 11, Tot. Refills 11, Maintenance, 09/12/23 17:44:00 EST, Route to Pharmacy Electronically,[facility] [id number], for... Start Date: 09/12/23 Status: Ordered gabapentin 300 mg oral capsule 300 mg, 1, capsule, By Mouth, 2 times a day, # 60 capsule, Refills 11, Tot. Refills 11, Maintenance, 09/12/23 17:42:00 EST, Route to Pharmacy Electronically, [facility] [id number], For blister pack please., 166, cm, 09/12/23 1... Start Date: 09/12/23 Status: Ordered nitroglycerin 0.4 mg sublingual tablet 1 tablet = 0.4 mg, Sublingual, Every 5 minutes, PRN Chest Pain, # 100 tablet, 0 Refills, Maintenance, 06/08/23 16:23:00 EDT, Tablet, [facility]/pharmacy #[id number], Partial fill upon patient request [...] 0 Refills, Maintenance, 10/22/23 11:37:00 EST, [id number]... Start Date: 10/22/23 Status: Ordered propranolol 20 mg oral tablet 2, tablet, By Mouth, 2 times a day, # 120 tablet, Refills 11, Tot. Refills , Maintenance, 09/12/23 17:42:00 EST, Route to Pharmacy Electronically, [facility] [id number], For blister pack please., 166, cm, 09/12/23 13:54:00 E... Start Date: 09/12/23 Status: Ordered risperiDONE 2 mg oral tablet 4 mg, 2, tablet, By Mouth, Daily at bedtime, Rx'd by psychiatry, # 60 tablet, Refills 11, Tot. Refills 11, Maintenance, 09/12/23 17:44:00 EST, Route to Pharmacy Electronically, [facility] [id number], for blister pack, 166, cm... Start Date: 09/12/23 Status: Ordered tiZANidine 2 mg oral tablet 2 mg, 1, tablet, By Mouth, 3 times a day, Can take two tablets at bedtime. Do not take at the same time as oxycodone., # 90 tablet, Refills 0, Tot. Refills 0, Maintenance, 09/26/23 10:38:00 EST, Route to Pharmacy Electronically, [facility]/pharmacy #[id number], Sp... Start Date: 09/26/23 Status: Ordered traZODone 100 mg oral tablet 50 mg, 0.5, tablet, By Mouth, Daily at bedtime, # 15 tablet, Refills 11, Tot. Refills 11, Maintenance, 09/12/23 17:44:00 EST, Route to Pharmacy Electronically, [facility] [place], [place] - [id number], Partial fill upon patient request if the pr... Start Date: 09/12/23 Status: Ordered Ventolin HFA 108 mcg/inh inhalation aerosol with adapter 2 puffs, Inhalation, 4 times a day, PRN NEEDED FOR WHEEZING, # 18 Gm, 11 Refills, Maintenance, 02/22/23 8:17:00 EDT, [facility]/pharmacy #[id number], 166, cm, 01/18/23 15:56:00 EDT, [...] Active Obstructive sleep apnea Confirmed Active Health snf, active care coordination PADMINI Nancy [facility] [phone] Confirmed Active Fatty infiltration of liver Confirmed [...] Care Nurse Name: Mallory Lugo RN Position: [facility] RN Member Role: Primary Care Nurse Name: Carmen Gao RN Position: [facility] ED RN W/OE and Tasks Member Role: Primary Care Nurse Name: Dacia Evangelista RN Position: [facility] RN Member Role: Primary Care Nurse Name: Tracey Linares RN Position: [facility] AMB Nurse Member Role: Primary Care Nurse Name: Italia Ortega RN Position: [facility] RN Member Role: Primary Care Nurse Name: Catalina He RN Position: [facility] AMB Nurse Member Role: Primary Care Nurse Name: Jessica Lantigua RN Position: [facility] SN RN Member Role: Primary Care Nurse Name: Catalina Pack RN Position: [facility] SN RN Member Role: Primary Care Nurse Name: Clifford Gerber RN Position: [facility] RN Member Role: Primary Care Nurse Name: Doris Butler RN Position: [facility] RN Member Role: Primary Care Nurse Name: Aziza Poole RN Position: [facility] RN Member Role: Primary Care Nurse Name: Monet Miller RN Position: [facility] RN Member Role: Primary Care Nurse Name: Katheryn Wu RN Position: [facility] SN RN Member Role: Primary Care Nurse Name: Doris Dee RN Position: [facility] RN Member Role: Primary Care Nurse Name: Janae Soto RN Position: [facility] RN Member Role: Primary Care Nurse Name: Daphney Echols LPN Position: [facility] RN Member Role: Primary Care Nurse Name: Nini Odonnell RN Position: [facility] RN Member Role: Primary Care Nurse Name: Jennifer Thakkar RN Position: [facility] RN Member Role: Primary Care Nurse Name: Hyun Ochoa RN Position: [facility] RN Member Role: Primary Care Nurse Name: Yazmin Lay RN Position: [facility] RN Member Role: Primary Care Nurse Name: Ranjana Zavala RN Position: [facility] RN Member Role: Primary Care Nurse Name: Melvi Carter RN Position: [facility] OB RN Member Role: Primary Care Nurse Name: Jackson Rosen RN Position: [facility] RN Member Role: Primary Care Nurse Name: Clarissa Rodriguez RN Position: [facility] RN Supv Member Role: Primary Care Nurse Name: Ophelia Marie RN Position: [facility] RN Member Role: Primary Care Nurse Name: Nolvia Mendes RN Position: [facility] RN Member Role: Primary Care Nurse Name: Tyrone Germain RN Position: [facility] RN Member Role: Primary Care Nurse Name: Adi Rees RN Position: S RN Member Role: Primary Care Nurse Name: Orlando Mcallister RN Position: [facility] RN Member Role: Primary Care Nurse Name: Alonzo Esposito MD Position: [facility] Physician - Primary Care Member Role: PCP Address: Address: [address] [place] [address]- Name: Doroteo Morrow RN Position: [facility] RN Member Role: Primary Care Nurse Address: Address: [address] [place] [address]- Name: Cassidy Masters RN Position: [facility] RN Member Role: Primary Care Nurse Name: Juancarlos Valente RN Position: [facility] Hospital Air Traffic Control Operator Member Role: Primary Care Nurse Name: Tran Wiseman RN Position: [facility] RN Member Role: Primary Care Nurse Care Team Related Persons Name: CIELO BARBOSATZA Address: [address] [place] [address] Name: GAGE HUNT Address: [address] [place] [address] Name: JOCELYN HUNT Address: home [address] [place] [address]
--- OUTSIDE RECORDS SUMMARY | 2024-05-24 04:35 | XMS_ITS | Continuity of Care Document ---
Author Organization [facility] Address [address] [place] [address]- Care Team Providers Care Securities Clerk Name Role Phone Dawna Hernandez MD Primary Care Physician Encounter [facility] Date(s): 08/16/22 - 09/15/[address] [id number] Allergies, Adverse Reactions, Alerts [...] vaccine, inactivated 12/06/15 Give n SARS-CoV-2 mRNA (mzybmhj-[id number]-tjmji) vax 01/26/22 Given SARS-CoV-2 mRNA (odkwgfb-dluo-tlqhy) vax 12/28/21 Given tetanus/diphtheria/pertussis, acel(Tdap) 03/29/19 Given tetanus/diphtheria/pertussis, acel(Tdap) 09/10/17 Given pneumococcal 23-valent vaccine 04/08/18 Recorded pneumococcal 23-valent vaccine 04/22/17 Recorded pneumococcal 23-valent vaccine 12/21/12 Given Medications albuterol CFC free 90 mcg/inh inhalation aerosol 2, puffs, Inhalation, Every 6 hours, PRN, # 1 each, Refills 6, Tot. Refills 6, Maintenance, 08/07/22 17:48:00 EDT, Aerosol, Route to Pharmacy Electronically, [id number], [id number], 165, cm, 08/02/22 5:50:00 EDT, [...] 09/16/22 21:10:00 EST, 09/06/22 21:10:00 EST, Tablet, [id number], Partial fill upon [...] 11 Refills, Maintenance, 06/15/22 17:40:00EDT, Tablet, [facility]/pharmacy #[id number], Partial fill upon patient request if the prescription is for a schedule II opioid drug., 165, cm, 06/15/22 14:29:00 ED... Start Date: 06/15/22 Status: Ordered ibuprofen 600 mg oral tablet 600 mg, 1, tablet, By Mouth, 3 times a day, # 90 tablet, Refills 0, Tot. Refills 0, Maintenance, 09/06/22 21:10:00 EST, Route to Pharmacy Electronically, [facility]/pharmacy #[id number], Partial [...] 0 Refills, Maintenance, 07/20/22 15:26:00 EDT, [facility] STORE [id number], 10, APPLY 1 PATCH DAILY NEEDED FOR MODERATE PAIN..REMOVE AFTER 12... Start Date: 07/20/22 Status: Ordered oxyCODONE 15 mg oral tablet 1 tablet = 15 mg, By Mouth, Every 6 hours, for 28 days, [facility] checked, # 112 tablet, 0 Refills, Acute 10/04/22 12:00:00 EST, 09/06/22 12:00:00 EST, [facility]/pharmacy #[id number], Partial [...] tablet, Refills 5, Route to Pharmacy Electronically, [facility] [id number], 166, cm, 12/28/21 10:33:00 EDT, Height, 91.9, [...] Refills, Maintenance, 08/18/22 22:09:00 EDT, Aerosol, [facility]/pharmacy #[id number], Partial fill upon patient request if the [...] Health prison, active care coordination Netta Nancy [facility] [phone] Confirmed Active Fatty infiltration of liver Confirmed Active Tubular adenoma of colon Confirmed Active Social History Social History Type Response Smoking Status Former smoker; Other : Quit 2014; entered on: 09/10/17 Sex Patient Care team information Care Team Personnel Name: Macarena Lewis RN Position: [facility] RN Member Role: Primary Care Nurse Name: Mallory Lugo RN Position: [facility] RN Member Role: Primary Care Nurse Name: Carmen Gao RN Position: [facility] RN Member Role: Primary Care Nurse Name: Dacia Evangelista RN Position: [facility] RN Member Role: Primary Care Nurse Name: Tracey Linares RN Position: [facility] RN Member Role: Primary Care Nurse Name: Italia Ortega RN Position: [facility] RN Member Role: Primary Care Nurse Name: Catalina He RN Position: [facility] RN Member Role: Primary Care Nurse Name: Cortez Golden RN Position: [facility] RN Member Role: Primary Care Nurse Name: Jessica Lantigua RN Position: [facility] SN RN Member Role: Primary Care Nurse Name: Clifford Gerber RN Position: [facility] RN Member Role: Primary Care Nurse Name: Peter Monahan RN Position: [facility] RN Member Role: Primary Care Nurse Name: Aziza Poole RN Position: [facility] RN Member Role: Primary Care Nurse Name: Monet Miller RN Position: [facility] RN Member Role: Primary Care Nurse Name: Katheryn Wu RN Position: [facility] RN Member Role: Primary Care Nurse Name: Doris Dee RN Position: [facility] RN Member Role: Primary Care Nurse Name: Janae Soto RN Position: [facility] RN Member Role: Primary Care Nurse Name: Hyun Ochoa RN Position: [facility] RN Member Role: Primary Care Nurse Name: Nancy Magana RN Position: [facility] RN Member Role: Primary Care Nurse Name: Ranjana Zavala RN Position: [facility] RN Member Role: Primary Care Nurse Name: Melvi Carter RN Position: [facility] OB RN Member Role: Primary Care Nurse Name: Jackson Rosen RN Position: [facility] RN Member Role: Primary Care Nurse Name: Clarissa Rodriguez Position: [facility] RN Supv Member Role: Primary Care Nurse Name: Evelyn Pyle RN Position: [facility] RN Member Role: Primary Care Nurse Name: Ophelia Marie RN Position: [facility] RN Member Role: Primary Care Nurse Name: Nolvia Mendes RN Position: [facility] RN Member Role: Primary Care Nurse Name: Adi Rees RN Position: [facility] RN Member Role: Primary Care Nurse Name: Catalina Torres RN Position: [facility] RN Member Role: Primary Care Nurse Name: Doroteo Morrow RN Position: [facility] RN Member Role: Primary Care Nurse Address: Address: [address] [place] [id number]- [place] Name: Cassidy Masters RN Position: [facility] RN Member Role: Primary Care Nurse Name: Juancarlos Valente RN Position: [facility] Hospital Fur Cutting Machine Operator Member Role: Primary Care Nurse Name: Dawna Hernandez MD Position: [facility] Primary Care Physician Member Role: PCP Address: Address: [address] [place] [address]- Care Team Related Persons Name: SYLVIA BARBOSA Address: [address] [place] [address] Name: GAGE HUNT Address: [address] [place] [address] Name: JOCELYN HUNT Address: [address] [place] [address]
--- OUTSIDE RECORDS SUMMARY | 2024-05-24 04:35 | XMS_ITS | Continuity of Care Document ---
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 Name Role Phone Alonzo Esposito MD Primary Care Physician Encounter [facility] Date(s): 08/30/23 - 08/31/[address] [address]- Encounter Diagnosis Syncope(Final) - 08/30/23 Left sided numbness(Final) - 08/30/23 Discharge Disposition: A-D/C Home Attending Physician: Mary Lou Swanson MD Admitting Physician: Mary Lou Swanson MD Referring Physician: Not on Staff, Referring [...] influenza virus vaccine, inactivated 12/06/15 Give n [id number] 12y+ bivalent booster vax 11/03/22 Given SARS-CoV-2 mRNA ([id number]) vax 01/26/22 Given SARS-CoV-2 mRNA (pbycfep-ycxw-nbxxz) vax 12/28/21 Given tetanus/diphtheria/pertussis, acel(Tdap) 03/29/19 Given tetanus/diphtheria/pertussis, acel(Tdap) 09/10/17 Given pneumococcal 23-valent vaccine 04/08/18 Recorded pneumococcal 23-valent vaccine 04/22/17 Recorded pneumococcal 23-valent vaccine 12/21/12 Given Medications acetaminophen-oxycodone 325 mg-10 mg oral tablet 1 tablet, By Mouth, Daily at bedtime, for 30 days, mass pat verified, # 30 tablet, 0 Refills, Acute09/13/23 13:56:00 EST, 08/14/23 13:56:00 EDT, [facility]/pharmacy #[id number], Partial fill upon patient requestif the prescription is for a schedule II opioid aditya... Start Date: 08/14/23 Stop Date: 09/13/23 Status: Ordered aspirin 81 mg oral delayed release tablet 81 mg, By Mouth, Daily, # 30 tablet, Refills 0, Tot. Refills 0, Maintenance, 08/31/23 15:47:00 EST,Route to Pharmacy Electronically, [facility]/pharmacy #[id number], Partial fill upon patient request if the prescription is for a schedule II opioid drug., 165, cm,... Start Date: 08/31/23 Status: Ordered atorvastatin 40 mg oral tablet 1 tablet = 40 mg, By Mouth, Daily, # 30 tablet, 5 Refills, Maintenance, 08/31/23 15:48:00 EST, Tablet, [facility]/pharmacy #[id number], Partial fill upon patient request if the prescription is for a schedule II opioid drug., 165, cm, 08/31/23 14:45:00 EST, Height,... Start Date: 08/31/23 Stop Date: 02/27/24 Status: Ordered diclofenac 1% topical gel 1 application, Topically, 4 times a day, # 100 Gm, 3 Refills, Maintenance, 04/30/23 14:32:00 EDT, Gel, [facility]/pharmacy #[id number], Partial fill [...] 08/14/23 13:53:00 EDT, Route to Pharmacy Electronically, [facility]/pharmacy #[id number], Partial fill upon patient request if the prescription is for a schedule II... Start Date: 08/14/23 Status: Ordered gabapentin 300 mg oral capsule 300 mg, Capsule, By Mouth, 08/31/23 9:00:00 EST Start Date: 08/31/23 Stop Date: 08/31/23 Status: Completed Medrol Dosepak 4 mg oral tablet 1 pack/packet, By Mouth, Daily, for 6 days, as directed on package labeling, # 21 tablet, 5 Refills, Acute 10/06/23 15:48:00 EST, 08/31/23 15:48:00 EST, Tablet, [facility]/pharmacy #[id number], Partial fill upon patient request if the prescription is for a schedul... Start Date: 08/31/23 Stop Date: 10/06/23 Status: Ordered nitroglycerin 0.4 mg sublingual tablet 1 tablet = 0.4 mg, Sublingual, Every 5 minutes, PRN Chest Pain, # 100 tablet, 0 Refills, Maintenance, 06/08/23 16:23:00 EDT, Tablet, [facility]/pharmacy #[id number], Partial fill upon patient request if the prescription is for a schedule II opioid drug., 165, cm,... Start Date: 06/08/23 Status: Ordered OxyCONTIN 15 mg oral tablet, extended release 1 tablet = 15 mg, By Mouth, Every 12 hours, dx: M54.5 MassPAT checked; appropriate, # 60 tablet, 0 Refills, Maintenance, 08/14/23 13:55:00 EDT, ER Tablet, [facility]/pharmacy #[id number], Partial fill upon patient request if the prescription is for a schedule II... Start Date: 08/14/23 Stop Date: 09/13/23 Status: Ordered Percocet-5/325 325 mg-5 mg oral tablet 1 tablet, Tablet, By Mouth, Once, PRN for Pain , Moderate, CAROLINE, 08/31/23 7:03:00 EST Start Date: 08/31/23 Stop Date: 08/31/23 Status: Completed propranolol 20 mg oral tablet 2, tablet, By Mouth, 2 times a day, # 120 tablet, Refills 5, Maintenance, 04/19/23 20:48:00 EDT, Route to Pharmacy Electronically, [id number], 165, cm, 04/09/23 9:47:00 EDT, Height, 89.1, kg, 03/17/23 16:52:00 EDT, Dry Weight Start Date: 04/19/23 Status: Ordered propranolol 20 mg oral tablet 40 mg, Tablet, By Mouth, 08/31/23 9:00:00 EST Start Date: 08/31/23 Stop Date: 08/31/23 Status: Completed risperiDONE 2 mg oral tablet [...] Gm, 11 Refills, Maintenance, 02/22/23 8:17:00 EDT, [facility]/pharmacy #[id number], 166, cm, 01/18/23 15:56:00 [...] Active [facility], active care coordination [facility] [phone] Confirmed Active Fatty infiltration of liver Confirmed Active Tubular adenoma of colon Confirmed Active 1history of this with surgical correction Results Radiology Reports * Exam Date Time Procedure Performing Provider Status 08/31/23 1:20 PM MRI Cervical Spine W/O Contrast Geraldine Seay (Verified) Notes: (MRI Cervical Spine W/O Contrast) Reason For Exam: LUE weakness, numbness;Radiculopathy Left RESULT: MRI Cervical Spine W/O Contrast MRI Cervical Spine W/O Contrast Reason: Radiculopathy Left; LUE weakness, numbness; Clinical Question(s): Cord Cauda Equina Compression; Order Comment: Please see Reference Text for complete list of contraindications Cord/Cauda Equina Compression TECHNIQUE: MRI of the cervical spine was performed without intravenous contrast utilizing sagittal T1, sagittal T2, sagittal STIR, axial gradient echo, and axial T2-weighted sequences. COMPARISON: MRI brain 08/30/2023. CT cervical spine 05/09/2023. FINDINGS: LOCALIZER: Localizer images include large ghurl-ih-uhzy sagittal T2 weighted sequence through the entire spine. There is a normal complement of cervical, thoracic, and lumbar vertebral bodies. Alignment of vertebral body heights in the thoracic and lumbar spine are preserved, without high-grade spinal stenosis. There is mild disc bulges are present, greatest at T8-9, L4-5, and L5-S1. There is slight indentation of the ventral cord at T8-9 though there is preserved dorsal CSF space. 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 Cervical spine: ALIGNMENT, VERTEBRAE, MARROW, AND DISCS: Alignment is normal. Vertebral body heights are preserved.There is no significant marrow signal abnormality. Intervertebral discs are desiccated with mild scattered loss of disc space. POSTERIOR FOSSA AND CORD: Posterior fossa is unremarkable. There is focal cord compression at T3-4 with subtle intramedullary myelopathic cord signal abnormality. Remainder of the cervical cord is normal in contour and signal. PARASPINAL TISSUES: Soft tissues of the neck are unremarkable. Major cervical flow voids are present. DETAILED FINDINGS BY LEVEL: C2-C3: No significant canal stenosis or neural foraminal narrowing. C3-C4: Broad-based disc osteophyte complex and uncovertebral spurring, along with a thickening of the ligamentum flavum. Focal severe central stenosis with AP diameter of the thecal sac measuring 4 mm. Mild right and minimal left neural foraminal narrowing. C4-C5: Broad-based disc osteophyte complex and bilateral uncovertebral spurring. Moderate central stenosis, with effacement of dorsal and ventral CSF space and slight flattening of the ventral cord contour, but thin preserved from of dorsal CSF space and no cord signal abnormality. Minimal right and no left neural foraminal narrowing. C5-C6: Broad-based disc osteophyte complex with left greater than right uncovertebral spurring and mild facet hypertrophy. Mild to moderate central stenosis. Severe left and moderate right neural foraminal narrowing. C6-C7: Bilateral uncovertebral spurring and facet hypertrophy. No significant central stenosis. Moderate bilateral neural foraminal narrowing. C7-T1: Mild broad-based disc bulge and bilateral facet hypertrophy. No significant central stenosis. Mild to moderate bilateral neural foraminal narrowing. IMPRESSION: Degenerative changes of the cervical spine as detailed above. Most prominently: * Severe central stenosis at C3-4 with focal cord compression and myelopathic cord signal abnormality. * Moderate central stenosis is also present at C4-5. * Multilevel neural foraminal narrowing, most severe on the left at C5-6. Moderate neural foraminalnarrowing is also present on the right at C5-6 and bilaterally at C6-7. An actionable message ([place]) has been communicated via the [employer] system on 08/31/2023 2:09 PM, Message ID [id number]. WSN: [id number] Ordering Physician: Mary Lou Swanson Dictated By: Kelli Llamas MD Dictated Date/Time: 08/31/23 2:10 pm Reviewed By: Kelli Llamas MD Signed By: Kelli Llamas MD Signed Date/Time: 08/31/23 2:10 pm Transcribed By: HARPAL Transcribed Date/Time: 08/31/23 1:59 pm * Exam Date Time Procedure Performing Provider Status 08/30/23 8:48 PM MRI Brain W/O Contrast Zi Torres; Auth (Verified) Notes: (MRI Brain W/O Contrast) Reason For Exam: paresthesia, facial droop;Other: RESULT: MRI Brain W/O Contrast MRI Brain W/O Contrast INDICATION: Reason: Other:; paresthesia, facial droop; Clinical Question(s): Infarction; Order Comment: Please see Reference Text for complete list of contraindications Infarction TECHNIQUE: MRI of the brain was performed without contrast utilizing sagittal T1, axial T2, axial FLAIR, axial SWAN, and axial DWI sequences. COMPARISON: Head CT 08/30/2023. FINDINGS: BRAIN and EXTRA-AXIAL SPACES: The ventricles and sulci are normal in size. Scattered FLAIR hyperintensities in the juxtacortical and periventricular white matter. There is no evidence of restricted diffusion to suggest acute infarction. The brainstem and cerebellum are normal. There is no hemorrhage, midline shift, or mass effect. There is no extra-axial collection. Flow voids are preserved in the dominant intracranial vessels. EXTRACRANIAL SOFT TISSUES: Orbits are unremarkable. Paranasal sinuses and mastoids are unremarkable. BONES: Marrow signal is preserved. Partially imaged degenerative changes in the upper cervical spine with disc protrusion at C3-C4 which likely indents the ventral spinal cord. IMPRESSION: 1. No acute/subacute infarct, mass, hemorrhage, or other acute intracranial abnormality. 2. Mild scattered T2/FLAIR hyperintense foci in the white matter, nonspecific but most likely reflecting chronic small vessel disease. 3. Partially imaged upper cervical spine degenerative changes with a disc protrusion at C3-C4 whichlikely causes indentation of the ventral spinal cord. WSN: [id number] Ordering Physician: Mary Lou Swanson Dictated By: Rosi Hernandez MD Dictated Date/Time: 08/31/23 7:42 am Reviewed By: Rosi Hernandez MD Signed By: Rosi Hernandez MD Signed Date/Time: 08/31/23 7:42 am Transcribed By: HARPAL Transcribed Date/Time: 08/31/23 7:33 am * Exam Date Time Procedure Performing Provider Status 08/30/23 12:52 PM Chest 2 Views Frontal and Lat Elvira Ramey; July (Verified) Notes: (Chest 2 Views Frontal and Lat) Reason For Exam: Angina RESULT: Chest 2 Views Frontal and Lat Chest 2 Views Frontal and Lat Hx of Present Illness: L chest pain L head facial pain and left arm pain since 4 am today. Pt. reports that he passsed out this am in his living room; Reason: Angina; Clinical Question(s): CHF COMPARISON: None. FINDINGS: LINES AND TUBES: None. LUNGS AND PLEURA: Clear lungs. Normal pulmonary vascularity. No pleural effusion. No pneumothorax. HEART, MEDIASTINUM AND YANETH: Heart is normal in size. Normal mediastinal and hilar contour. BONES AND SOFT TISSUES: No acute abnormality. Mild degenerative changes of the visualized spine. IMPRESSION: No evidence of acute abnormality. I have personally reviewed the images and I agree with this report. WSN: [id number] Ordering Physician: Clifford Jose Dictated By: Ezra Warren MD Dictated Date/Time: 08/30/23 1:06 pm Reviewed By: Christopher Bejarano MD, V Signed By: Christopher Bejarano MD, V Signed Date/Time: 08/30/23 1:11 pm Transcribed By: HARPAL Transcribed Date/Time: 08/30/23 1:04 pm * Exam Date Time Procedure Performing Provider Status 08/30/23 11:[address] Angio Neck Hyperacute Stroke Sheychano miranda Nancy; Auth (Verified) Notes: (CT Angio Neck Hyperacute Stroke) Reason For Exam: Aneurysm, neck vessel(s);Other: RESULT: CT Angio Neck Hyperacute Stroke CT Angio Head Hyperacute Stroke, CT Angio Neck Hyperacute Stroke Hx of Present Illness: L chest pain L head facial pain and left arm pain since 4 am today. Pt. reports that he passsed out this am in his living room; Reason: Other:; Stroke; Clinical Question(s): Other:; Hematoma Aneurysm / Other: TECHNIQUE: CT angiogram of the head and neck was performed after bolus administration of intravenous contrast. 100 mL of Omnipaque 300 was administered intravenously. Coronal and sagittal MIP reformatted images were obtained. Additional 3-D images were created on a separate workstation under concurrent supervision by the attending radiologist. All stenoses are measured using NASCET criteria. Weight-based protocol using automatic tube modulation was used to optimize exposure parameters. RADIATION DOSE PARAMETERS: CTDIvol Body: 8.10 mGy, DLP Body: 493 mGy*cm. CTDIvol Head: 45.50 mGy, DLP Head: 1544 mGy*cm. COMPARISON: Noncontrast CT head performed concurrently. CTA of the head and neck 03/14/2023 FINDINGS: CTA OF THE NECK: Arch: There is a three vessel aortic arch. The origins of the supra aortic vessels are patent. Right carotid system: The common carotid and cervical internal carotid arteries are patent. No stenosis (0%) by NASCET criteria. There is no dissection or aneurysm. Left carotid system: The common carotid and cervical internal carotid arteries are patent. No stenosis (0%) by NASCET criteria. There is no dissection or aneurysm. There is a mildly right-dominant vertebral artery system. Right vertebral: Patent. Left vertebral: Patent. Other: Soft tissues and bones: No evidence of lymphadenopathy or mass. The thyroid is unremarkable. Visualized lungs are blurred by motion artifact, without significant superimposed airspace opacity. Degenerative changes of the cervical spine. CTA OF THE HEAD: Anterior circulation: Bilateral intracranial ICAs and their FUENTES and MCA branches are patent. Posterior circulation: Bilateral intracranial vertebral arteries, the basilar artery, and bilateralsuperior cerebellar and posterior cerebral artery branches are patent. type right posterior cerebral artery. A left posterior communicating artery is also present. Veins: Major dural venous sinuses are patent. Other: Soft tissues and bones: No midline shift or effacement of the basal cisterns. No space-occupying hemorrhage. No territorial loss of esparza-white matter differentiation. Orbits are unremarkable. No significant opacification in the paranasal sinuses or mastoid air cells. IMPRESSION: 1. No acute intracranial large vessel occlusion. 2. No hemodynamically-significant stenosis of the extracranial internal carotid and vertebral arteries. A preliminary report was issued to the [facility] via [employer] 08/30/2023 at 11:22 AM. WSN: [id number] Ordering Physician: Celia Clarke Dictated By: Zachery Bejarano MD Dictated Date/Time: 08/30/23 11:46 a Reviewed By: Zachery Bejarano MD Signed By: Zachery Bejarano MD Signed Date/Time: 08/30/23 11:46 am Transcribed By: HARPAL Transcribed Date/Time: 08/30/23 11:22 am * Exam Date Time Procedure Performing Provider Status 08/30/23 11:[address] Angio Head Hyperacute Stroke Nancy Mcgarry; Auth (Verified) Notes: (CT Angio Head Hyperacute Stroke) Reason For Exam: Stroke;Other: RESULT: CT Angio Head Hyperacute Stroke CT Angio Head Hyperacute Stroke, CT Angio Neck Hyperacute Stroke Hx of Present Illness: L chest pain L head facial pain and left arm pain since 4 am today. Pt. reports that he passsed out this am in his living room; Reason: Other:; Stroke; Clinical Question(s): Other:; Hematoma Aneurysm / Other: TECHNIQUE: CT angiogram of the head and neck was performed after bolus administration of intravenous contrast. 100 mL of Omnipaque 300 was administered intravenously. Coronal and sagittal MIP reformatted images were obtained. Additional 3-D images were created on a separate workstation under concurrent supervision by the attending radiologist. All stenoses are measured using NASCET criteria. Weight-based protocol using automatic tube modulation was used to optimize exposure parameters. RADIATION DOSE PARAMETERS: CTDIvol Body: 8.10 mGy, DLP Body: 493 mGy*cm. CTDIvol Head: 45.50 mGy, DLP Head: 1544 mGy*cm. COMPARISON: Noncontrast CT head performed concurrently. CTA of the head and neck 03/14/2023 FINDINGS: CTA OF THE NECK: Arch: There is a three vessel aortic arch. The origins of the supra aortic vessels are patent. Right carotid system: The common carotid and cervical internal carotid arteries are patent. No stenosis (0%) by NASCET criteria. There is no dissection or aneurysm. Left carotid system: The common carotid and cervical internal carotid arteries are patent. No stenosis (0%) by NASCET criteria. There is no dissection or aneurysm. There is a mildly right-dominant vertebral artery system. Right vertebral: Patent. Left vertebral: Patent. Other: Soft tissues and bones: No evidence of lymphadenopathy or mass. The thyroid is unremarkable. Visualized lungs are blurred by motion artifact, without significant superimposed airspace opacity. Degenerative changes of the cervical spine. CTA OF THE HEAD: Anterior circulation: Bilateral intracranial ICAs and their FUENTES and MCA branches are patent. Posterior circulation: Bilateral intracranial vertebral arteries, the basilar artery, and bilateralsuperior cerebellar and posterior cerebral artery branches are patent. type right posterior cerebral artery. A left posterior communicating artery is also present. Veins: Major dural venous sinuses are patent. Other: Soft tissues and bones: No midline shift or effacement of the basal cisterns. No space-occupying hemorrhage. No territorial loss of esparza-white matter differentiation. Orbits are unremarkable. No significant opacification in the paranasal sinuses or mastoid air cells. IMPRESSION: 1. No acute intracranial large vessel occlusion. 2. No hemodynamically-significant stenosis of the extracranial internal carotid and vertebral arteries. A preliminary report was issued to the [facility] via [employer] 08/30/2023 at 11:22 AM. WSN: [id number] Ordering Physician: Celia Clarke Dictated By: Zachery Bejarano MD Dictated Date/Time: 08/30/23 11:46 a Reviewed By: Zachery Bejarano MD Signed By: Zachery Bejarano MD Signed Date/Time: 08/30/23 11:46 am Transcribed By: HARPAL Transcribed Date/Time: 08/30/23 11:22 am * Exam Date Time Procedure Performing Provider Status 08/30/23 11:[address] Head-Hyper Acute Stroke Dain Ocasio; Auth (Verified) Notes: (CT Head-Hyper Acute Stroke) Reason For Exam: Neuro deficit, acute, stroke suspected;Other: RESULT: CT Head-Hyper Acute Stroke CT Head-Hyper Acute Stroke INDICATION: Hx of Present Illness: L chest pain L head facial pain and left arm pain since 4 am today. Pt. reports that he passsed out this am in his living room; Reason: Other:; Neuro deficit, acute, stroke suspected; Clinical Question(s): Other:; Hematoma Infarction TECHNIQUE: Noncontrast head CT using axial technique and reconstructed in axial and coronal planes.Iterative reconstruction techniques are used to optimize dose and image quality. CTDIvol Body: 10.80 mGy, DLP Body: 471 mGy*cm. CTDIvol Head: 45.50 mGy, DLP Head: 772 mGy*cm. COMPARISON: 06/04/2023. FINDINGS: Manager Enrollment view findings, lines and tubes: None. BRAIN AND EXTRA-AXIAL SPACES: No parenchymal hemorrhage, midline shift, or mass effect. Esparza-white matter differentiation is wellpreserved. No acute infarct. Negative insular ribbon and hyperdense vessel signs. Ventricles, sulci, and basilar cisterns are normal. No white matter lesions. No subarachnoid hemorrhage. No subdural or epidural collection. CALVARIUM, SKULL BASE, AND SOFT TISSUES: No fractures or suspicious bony lesions. Small mucus retention cysts and mild maxillary sinus mucosal thickening. The paranasal sinuses and mastoid air cells are otherwise clear. Visualized orbits and globes are intact. The extracranial soft tissues are unremarkable. IMPRESSION: No acute intracranial pathology. WSN: [id number] Ordering Physician: Celia Clarke Dictated By: Jackie Bedolla MD Dictated Date/Time: 08/30/23 12:48 p Reviewed By: Jackie Bedolla MD Signed By: Jackie Bedolla MD Signed Date/Time: 08/30/23 12:48 pm Transcribed By: HARPAL Transcribed Date/Time: 08/30/23 11:02 am Vital Signs Most recent to oldest [Reference Range]: 1 2 3 Height 165 cm (08/31/23 2:45 PM) 165 cm (08/31/23 10:57 AM) 165 cm (08/31/23 7:33 AM) Weight 93 kg (08/30/23 3:27 PM) 91 kg (08/30/23 9:02 AM) Oxygen Saturation [94-100 %] 98 % (08/31/23 2:45 PM) 100 % (08/31/23 7:33 AM) 98 % (08/31/23 4:26 AM) Pulse Rate [55-90 bpm] 68 bpm (08/31/23 2:45 PM) 100 bpm *H* (08/31/23 12:31 PM) 100 bpm *H* (08/31/23 7:33 AM) Body Mass Index [18.5-24.99 kg/m2] 34.16 kg/m2 *>HHI* (08/30/23 3:27 PM) Blood Pressure [90-138/55-84 mm Hg] 109/71mm Hg (08/31/23 2:45 PM) 100/73mm Hg (08/31/23 12:31 PM) 100/73mm Hg (08/31/23 7:33 AM) Respiratory Rate [16-30 br/min] 20 br/min (08/31/23 2:45 PM) 18 br/min (08/31/23 12:32 PM) 18 br/min (08/31/23 12:31 PM) Temperature [96.8-100.4 DegF] 97.5 DegF (08/31/23 2:45 PM) 98.2 DegF (08/31/23 7:33 AM) 97.8 DegF (08/31/23 4:26 AM) Mode of Delivery (Oxygen) Room air (08/31/23 2:45 PM) Room air (08/31/23 7:33 AM) Room air (08/31/23 4:26 AM) Blood pressure sites Arm, left (08/31/23 2:45 PM) Arm, left (08/31/23 7:33 AM) Arm, left (08/31/23 4:26 AM) Temperature Route Oral (08/31/23 2:45 PM) Oral (08/31/23 7:33 AM) Oral (08/31/23 4:26 AM) Dry Weight 93 kg (08/30/23 3:27 PM) 91 kg (08/30/23 9:02 AM) 91 kg (08/30/23 8:58 AM) Dry Weight Obtained Via Patient/family s tated (08/30/23 8:58 AM) Social History Social History Type Response Smoking Status Former smoker; Other : Quit 2014; entered on: 09/10/17 Sex Admission evaluation note * Mary Lou Swanson MD: PERFORM, MODIFY Event Display: Admission Note Authored Date: [id number] Patient: ??JJ OLIVIER ? Age:??52 Years?Sex:??Male?:??1970?? Chief Complaint/Reason for Consultation palpitation, headache, syncope, left sided numbness History of Present Illness 52-year-old male with past medical history significant for diabetes mellitus type 2 ( not on medication ) , GERD, dyslipidemia??,MARIA G, ??HTN, syncope , chronic pain?? presented to ED with multiple complains. Patient mentioned that he was in his usual state last night,??this morning around 430??he took up from sleep with some??strong??palpitation in his chest and then started having severe??sharp pain on the left side of his head,??and then he also felt??numbness??and mild weakness??in his left extremities.? He got up?? from bed??, was trying to call his daughter and then he pepe snot remember what happened he found himself on living room floor.?? He mentioned he had episode of urinary incontinence when he passed out. Pt uses CPAP and mentioned he is complaint and used it last night. HE was seen at bedside in ED?? continues to have sharp left sided headache,?? numbness on left side.?? Denied chest pain He was hemodynamically stable at presentation in the ED,??laboratory work-up was Unremarkable, initial troponin was 7, repeat troponin was also 7, EKG without any acute ischemic changes, CT head no acute findings, CTA head and neck no large vessel obstruction. ED consulted Neurology . Review of Systems All other systems reviewed, negative except mentioned.?? Objective Measurements?? Height: 165 cm (08/30/23) Weight: 91 kg (08/30/23) Dry Weight: 91 kg (08/30/23) ? Vital Signs?? Temperature: 98.6 DegF (08/30/23 11:03:00) Temperature Route: Oral (08/30/23 11:03:00) Pulse Rate:??97 bpm??High (08/30/23 11:03:00) Respiratory Rate: 16 br/min (08/30/23 11:03:00) Systolic Blood Pressure:??148 mm Hg??High (08/30/23 11:03:00) Diastolic Blood Pressure:??94 mm Hg??High (08/30/23 11:03:00) Blood pressure sites: Arm, left (08/30/23 11:03:00) Mean Arterial Pressure: 122 mm Hg (08/30/23 08:58:00) Pulse Pressure: 62 mm Hg (08/30/23 08:58:00) Oxygen Saturation: 98 % (08/30/23 11:03:00) Mode of Delivery (Oxygen): Room air (08/30/23 11:03:00) Early Warning Score: 0 (08/30/23 13:02:27) ? Intake/Output? No Data Available ?? Precautions No Precautions documented.? Physical Exam GENERAL: In no apparent distress HEENT: Head normocephalic, PERRL,Moist mucous membrane. Neck supple CARDIOVASCULAR: Normal rate and rhythm, no murmurs, no rubs, no gallops RESPIRATORY: Lungs clear to auscultation, no wheezes , no crackles ABDOMEN/GI: Nondistended, soft, nontender, normal bowel sounds EXTREMITIES: No pitting edema CONSUMER INSIGHTS SPECIALIST: Alert and oriented x 3. strength 5/5 in rt extremities, 4+ in LUE , 4+ in LLE PSYCHIATRIC: Calm and co-operative SKIN: Warm and dry. ? Assessment/Plan Diagnoses Left sided numbness ??(R20.0) Syncope ??(R55) ?? 52-year-old male with past medical history significant for diabetes mellitus type 2 ( not on medication ) , GERD, dyslipidemia??, HTN, syncope , chronic pain?? presented to ED?? palpitation, headache, left sided paresthesia, possible syncope w urinary incontinence . ? Rule out CVA?? Possible syncope ?? Patient complaining of new onset paresthesia on the left side, mild left upper extremity weakness Also complaining of episode of loss of consciousness without any premonitory symptoms He has history of syncope in the past, no history of cardiac arrhythmia, no structural heart disease, syncope was presumed to be vasovagal syncope No history of CVA,??complaining of ongoing paresthesia on the left side Does not have any history of seizure, no reported post ictal state waiting on Neuro recommendation ??will get MRI brain w/o contrast ??ECho Telemetry ??Neurochecks every 4 hrs Passed bedside swallow F/u on Neurology recommendation ??Check lipid panel, TSH , HBA1c ??Neuro recommends EEG ??ASA 325 mg X1 , follwed by ASA 81 mg daily ? Chest discomfort palpitation ?C/o palpitation, chest pain this morning ??Troponin negative ??EKG non ischemic ??tele ??Echo as mentioned?? Continue home propanolol ? Chronic pain ??Depression ?? continue home dose of Oxycontin, fluoxetine, trazodone, risperidone ? Diet - cardiac diabetic ? DVt?? ppx - pneumoboots ??Code status - full code ? Histories Allergies Allergies ?(Active and Proposed Allergies Only) Shrimp? (Severity: Unknown severity, Onset: Unknown) lisinopril? (Severity: Unknown severity, Onset: Unknown) ?Reactions: Angioedema ? Past Medical History/Problem List Active Problems??(16) Cauda equina syndrome Chest pain Controlled substance agreement signed 05/29/2023 Depression Diabetes Fatty infiltration of liver GERD (gastroesophageal reflux disease) [facility], active care coordination [facility] [phone] HTN (hypertension) Hyperlipidemia Illiteracy Lower back pain [...] Details:??Use: Never. Tobacco Details:??Former smoker, Other: Quit 2015. Electronic Cigarette/Vaping Details:??Electronic Cigarette Use: Never. ? Family History Mother: Arthritis; Diabetes mellitus; Emphysema ? Medications Home Medications Albuterol (Ventolin HFA 108 mcg/inh inhalation aerosol with adapter)?2?puff(s)?Inhalation?4 times a day?as needed? NEEDED FOR WHEEZING Diclofenac Topical (diclofenac 1% topical gel)?1?lenore?Topically?4 times a day Fluoxetine (FLUoxetine 20 mg oral capsule)?TAKE 3 [...] AT BEDTIME ? Results Recent Labs BLOOD COUNT & DIFF WBC 11.1 k/mm3 (High)?? 08/30/2023 10:46 RBC 5.89 m/mm3 ()?? 08/30/2023 10:46 Hgb 16.2 Gm/dL ()?? 08/30/2023 10:46 Hct 51.7 % (High)?? 08/30/2023 10:46 MCV 87.8 femtoliters ()?? 08/30/2023 10:46 MCH 27.5 pg ()?? 08/30/2023 10:46 MCHC 31.3 g/dL (Low)?? 08/30/2023 10:46 Platelet Count 294 k/mm3 ()?? 08/30/2023 10:46 RDW-SD 46.5 femtoliters ()?? 08/30/2023 10:46 MPV 11.0 femtoliters ()?? 08/30/2023 10:46 Nucleated RBC (Automated) 0.0 #/100 WBC'S ()?? 08/30/2023 10:46 Abs. NRBC 0.0 k/mm3 ()?? 08/30/2023 10:46 Abs. Neut 8.4 k/mm3 (High)?? 08/30/2023 10:46 Abs. Lymph 2.0 k/mm3 ()?? 08/30/2023 10:46 Abs. [place] 0.4 k/mm3 ()?? 08/30/2023 10:46 Abs. Eo 0.1 k/mm3 ()?? 08/30/2023 10:46 Abs. Baso 0.0 k/mm3 ()?? 08/30/2023 10:46 Neut % 75.9 % ()?? 08/30/2023 10:46 Lymph % 17.8 % ()?? 08/30/2023 10:46 [place] % 3.9 % (Low)?? 08/30/2023 10:46 Eos % 0.9 % ()?? 08/30/2023 10:46 Baso % 0.3 % ()?? 08/30/2023 10:46 Imm Gran 1.2 % ()?? 08/30/2023 10:46 Abs. Imm Gran 0.1 k/mm3 ()?? 08/30/2023 10:46 ?? CARDIAC High Sensitivity Troponin (HSTnT) 7 ng/L ()?? 08/30/2023 10:46 ?? CHEM GENERAL Sodium 136 mmol/L ()?? 08/30/2023 10:46 Potassium 4.6 mmol/L ()?? 08/30/2023 10:46 Chloride 97 mmol/L (Low)?? 08/30/2023 10:46 Bicarbonate Level 26 mmol/L ()?? 08/30/2023 10:46 Anion Gap 13 ()?? 08/30/2023 10:46 Glucose Level 149 mg/dL (High)?? 08/30/2023 10:46 Glucose, POC 168 mg/dL (High)?? 08/30/2023 10:40 BUN 15 mg/dL ()?? 08/30/2023 10:46 Creatinine-Blood 0.8 mg/dL ()?? 08/30/2023 10:46 Estimated GFR Creatinine 107 ML/MIN/1.73 M2 ()?? 08/30/2023 10:46 Calcium 9.8 mg/dL ()?? 08/30/2023 10:46 AST (SGOT) 19 units/L ()?? 08/30/2023 10:46 ?? COAG INR 1.0 ()?? 08/30/2023 10:46 Protime (PT) 10.7 seconds ()?? 08/30/2023 10:46 APTT 31.3 seconds ()?? 08/30/2023 10:46 ?? URINE OTHER Est Creatinine Clearance 94.89 mL/min ()?? 08/30/2023 11:51 ? Cardiology Labs High Sensitivity Troponin (HSTnT): 7 ng/L (08/30/23 10:46:00) ?? Blood Gases?? No qualifying data available. ? US Heart * Event Display: Echocardiogram - Complete Authored Date: [id number] Transthoracic Echocardiography Report (TTE) Patient Demographics Patient Name JJ OLIVIER Date of Study 08/31/2023 Corporate Gender Male Facility Race Ethnicity or Date of 1970 Height: 65 inches Age 52 year(s) Weight: 205 pounds Accession Number [id number] BSA: 2 m2 Room Number D320 BMI: 34.11 kg/m2 Referring Physician Sky Barreto MD Interpreting Mandi Alston MD Physician House Painter Meka Anderson [facility] Indications Syncope. Clinical History Hypertension. Diabetes Mellitus. MARIA G ex-tobacco use Study Data Type of Study TTE procedure:Echo Complete-Doppler, Colorflow, M-Mode. Study Date08/31/2023 Start Time: 07:34 AM Study Location: [facility] [place] Adult Echo Study Status: Echo lab Patient Status: Routine Technical Quality: Adequate Blood Pressure:102/70 mmHg EKG: Normal sinus rhythm HR: 79 bpm Allergies - Lisinopril. 2D Measurements LV Diastolic Dimension: 5 cm LV Systolic Dimension: 3.6 cm LV Septum Diastolic: 0.7 cm LV PW Diastolic: 0.7 cm AO Root Dimension: 2.6 cm LA Dimension: 3.7 cm LA ESV (BP):30 ml LVOT Stroke Volume: 50.89 ml LA ESV Index: 15 ml/m2 Stroke Volume Index25.44 ml/m2 LVOT: 2.1 cm Cardiac Index:2.01 l/min/m2 Ascending Aorta:2.7 cm Doppler Measurements AV Peak Velocity: 114 cm/s MV Peak E-Wave: 56.2 cm/s AV Peak Gradient: 5.2 mmHg MV Peak A-Wave: 83.2 cm/s MV E/A Ratio: 0.68 LVOT Peak Velocity: 73.9 cm/s LVOT VTI14.7 cm MV Deceleration Time: 169 msec E' Septal Velocity: 6.2 cm/s PV Peak Velocity: 106 cm/s E' Lateral Velocity: 10.3 cm/s PV Peak Gradient: 4.49 mmHg E/Med E':[id number] E/Lat E':[id number] Cardiac Anatomy Left Ventricle/Interventricular Septum The left ventricle is normal in size and wall thickness. Overall left ventricular systolic function is normal. LVEF visually estimated at 60-65%. There are no definite wall motion abnormalities. Normal diastolic function. Left Atrium/Interatrial Septum The left atrium is normal in size. The interatrial septum appears intact. Aortic Valve The aortic valve is trileaflet and normal in structure and function. There is no aortic stenosis or insufficiency. Mitral Valve The mitral valve is normal in structure and function. There is no mitral stenosis or insufficiency. Aorta The ascending aorta and aortic root are normal in size. Right Ventricle The right ventricle is normal in size. Right ventricular systolic function appears preserved. Right Atrium The right atrium is normal in size. Pulmonic Valve The pulmonic valve is functionally normal. Tricuspid Valve The tricuspid valve is normal in structure and function. There is trace regurgitation. Pumonary Artery An accurate pulmonary artery pressure could not be obtained. Venous Structures The inferior vena cava appears normal. Pericardium/Extracardiac There is no pericardial effusion. Summary The left ventricle is normal in size and wall thickness. Overall left ventricular systolic function is normal. LVEF visually estimated at 60-65%. There are no definite wall motion abnormalities. Normal diastolic function. The right ventricle is normal in size. Right ventricular systolic function appears preserved. Comparison Comparison is made to the study of October 11, 2020. There is no significant change. Signature * Event Display: Echocardiogram - Complete Authored Date: Cardiology * Event Display: Cardiac Rhythm Strips Authored Date: * Event Display: Cardiac Rhythm Strips Authored Date: Hospital Progress note * Mary Lou Swanson MD: PERFORM Event Display: Progress Note Hospital Authored Date: Patient: ??JJ OLIVIER ? Age:??52 Years?Sex:??Male?:??1970?? Subjective pt was seen and examined ??no overnight event ??no new complain ??still has LUE paresthesias ??tele - no arrythmia ??MRI brain - no acute ?? Review of Systems All other systems reviewed, negative except mentioned.?? Allergies Allergies ?(Active and Proposed Allergies Only) Shrimp? (Severity: Unknown severity, Onset: Unknown) lisinopril? (Severity: Unknown severity, Onset: Unknown) ?Reactions: Angioedema ? Objective Measurements?? Height: 165 cm (08/31/23) Weight: 93 kg (08/30/23) Dry Weight: 93 kg (08/30/23) Body Mass Index:??34.16 kg/m2??Critical (08/30/23) ? Physical Exam ?GENERAL: In no apparent distress HEENT: Head normocephalic, PERRL,Moist mucous membrane. Neck supple CARDIOVASCULAR: Normal rate and rhythm, no murmurs, no rubs, no gallops RESPIRATORY: Lungs clear to auscultation, no wheezes , no crackles ABDOMEN/GI: Nondistended, soft, nontender, normal bowel sounds EXTREMITIES: No pitting edema CONSUMER INSIGHTS SPECIALIST: Alert and oriented x 3. strength 5/5 in?? RUE ??4+ in LUE , 4+ in?? BLEs PSYCHIATRIC: Calm and co-operative SKIN: Warm and dry. Results Recent Labs BLOOD BANK Blood Type O Positive ()?? 08/30/2023 10:37 Antibody Screen Negative ()?? 08/30/2023 10:37 ?? BLOOD COUNT & DIFF WBC 11.1 k/mm3 (High)?? 08/30/2023 10:46 RBC 5.89 m/mm3 ()?? 08/30/2023 10:46 Hgb 16.2 Gm/dL ()?? 08/30/2023 10:46 Hct 51.7 % (High)?? 08/30/2023 10:46 MCV 87.8 femtoliters ()?? 08/30/2023 10:46 MCH 27.5 pg ()?? 08/30/2023 10:46 MCHC 31.3 g/dL (Low)?? 08/30/2023 10:46 Platelet Count 294 k/mm3 ()?? 08/30/2023 10:46 RDW-SD 46.5 femtoliters ()?? 08/30/2023 10:46 MPV 11.0 femtoliters ()?? 08/30/2023 10:46 Nucleated RBC (Automated) 0.0 #/100 WBC'S ()?? 08/30/2023 10:46 Abs. NRBC 0.0 k/mm3 ()?? 08/30/2023 10:46 Abs. Neut 8.4 k/mm3 (High)?? 08/30/2023 10:46 Abs. Lymph 2.0 k/mm3 ()?? 08/30/2023 10:46 Abs. [place] 0.4 k/mm3 ()?? 08/30/2023 10:46 Abs. Eo 0.1 k/mm3 ()?? 08/30/2023 10:46 Abs. Baso 0.0 k/mm3 ()?? 08/30/2023 10:46 Neut % 75.9 % ()?? 08/30/2023 10:46 Lymph % 17.8 % ()?? 08/30/2023 10:46 [place] % 3.9 % (Low)?? 08/30/2023 10:46 Eos % 0.9 % ()?? 08/30/2023 10:46 Baso % 0.3 % ()?? 08/30/2023 10:46 Imm Gran 1.2 % ()?? 08/30/2023 10:46 Abs. Imm Gran 0.1 k/mm3 ()?? 08/30/2023 10:46 ?? CARDIAC High Sensitivity Troponin (HSTnT) 7 ng/L ()?? 08/30/2023 12:55 ?? CHEM GENERAL Sodium 136 mmol/L ()?? 08/30/2023 10:46 Potassium 4.6 mmol/L ()?? 08/30/2023 10:46 Chloride 97 mmol/L (Low)?? 08/30/2023 10:46 Bicarbonate Level 26 mmol/L ()?? 08/30/2023 10:46 Anion Gap 13 ()?? 08/30/2023 10:46 Glucose Level 149 mg/dL (High)?? 08/30/2023 10:46 Glucose, POC 162 mg/dL (High)?? 08/31/2023 11:16 Hemoglobin A1C (Monitoring) 6.0 % (High)?? 08/30/2023 10:46 BUN 15 mg/dL ()?? 08/30/2023 10:46 Creatinine-Blood 0.8 mg/dL ()?? 08/30/2023 10:46 Estimated GFR Creatinine 107 ML/MIN/1.73 M2 ()?? 08/30/2023 10:46 Calcium 9.8 mg/dL ()?? 08/30/2023 10:46 AST (SGOT) 19 units/L ()?? 08/30/2023 10:46 ?? COAG INR 1.0 ()?? 08/30/2023 10:46 Protime (PT) 10.7 seconds ()?? 08/30/2023 10:46 APTT 31.3 seconds ()?? 08/30/2023 10:46 ?? ENDOCRINE/TUMOR MARKER TSH 1.02 uIU/mL ()?? 08/30/2023 10:46 ?? LIPID STUDIES Cholesterol 217 mg/dL (High)?? 08/31/2023 02:26 Triglycerides 272 mg/dL (High)?? 08/31/2023 02:26 HDL Cholesterol 42 mg/dL ()?? 08/31/2023 02:26 LDL Cholesterol 121 mg/dL ()?? 08/31/2023 02:26 Non HDL Cholesterol 175 mg/dL (High)?? 08/31/2023 02:26 ?? URINE OTHER Est Creatinine Clearance 94.89 mL/min ()?? 08/30/2023 11:51 ? Assessment/Plan ?? 52-year-old male with past medical history significant for diabetes mellitus type 2 ( not on medication ) , GERD, dyslipidemia??, HTN, syncope , chronic pain?? presented to ED?? palpitation, headache, left sided paresthesia, possible syncope w urinary incontinence . ? Rule out CVA?? Possible syncope ?? Patient complaining of new onset paresthesia on the left side, mild left upper extremity weakness Also complaining of episode of loss of consciousness without any premonitory symptoms He has history of syncope in the past, no history of cardiac arrhythmia, no structural heart disease, syncope was presumed to be vasovagal syncope No history of CVA,??complaining of ongoing paresthesia on the left side Does not have any history of seizure, no reported post ictal state ??Neuro on board ??CT head , CTA head and neck - no acute ??MRI brain - no acute EEG no acute? MRI brain concerning for cervical spine stenosis MRI c spine done Neuro recommend to continue ASA ??seen by PMR PT recommends home w services ? Severe Cervical stenosis?? at c3-4 ?? MRI C spine -?? Severe central stenosis at C3-4 with focal cord compression and myelopathic cord signal abnormality. * ??Moderate central stenosis is also present at C4-5. ??Neuro surgery consulted? they will see the pt today ? Chest discomfort palpitation ?C/o palpitation, chest pain this morning ??Troponin negative ??EKG non ischemic ??tele ??Echo as mentioned?? Continue home propranolol ? Chronic pain ??Depression ?? continue home dose of Oxycontin, fluoxetine, trazodone, risperidone ? Diet - cardiac diabetic ? DVt?? ppx - pneumoboots ??Code status - full code ? OMN; abnormal C spine MRI, need NSG consult ? * Christian RAWLS, David: MODIFY Macarena Schultz NP: PERFORM, MODIFY Macarena Schultz NP: MODIFY Event Display: Progress Note Hospital Authored Date: [id number] Patient: ??JJ OLIVIER ? Age:??52 Years?Sex:??Male?:??1970?? Subjective Interval history: MRI brain without acute intracranial finding Reports no further left upper arm??numbness/weakness Reports left lower extremity pain Reports neck pain Routine EEG is within normal limits during wakefulness and??drowsiness.??No focal, lateralized??or epileptiform activity is??present.? Review of Systems ?General: Denies fatigue, fever, chills ?Skin: denies rash ?Eyes: denies visual changes, blurry vision ?ENT: denies hearing changes, tinnitus ?Cardiovascular: denies chest pain ?Respiratory: denies SOB ?GI/: denies abdominal pain, nausea, vomiting, diarrhea ?denies loss of bladder or bowel function ?Neurological: Reports??left lower extremity pain/weakness ?denies headache, dizziness, loss of vision, blurry vision, hearing changes, trouble swallowing,slurring, word finding difficulties,?? paresthesias, tremors, fainting, numbness/tingling/loss of sensation Allergies Allergies ?(Active and Proposed Allergies Only) Shrimp? (Severity: Unknown severity, Onset: Unknown) lisinopril? (Severity: Unknown severity, Onset: Unknown) ?Reactions: Angioedema ? Objective Vital Signs?? Temperature: 98.2 DegF (08/31/23 07:33:00) Temperature Route: Oral (08/31/23 07:33:00) Pulse Rate:??100 bpm??High (08/31/23 07:33:00) Respiratory Rate: 19 br/min (08/31/23 07:33:00) Systolic Blood Pressure: 100 mm Hg (08/31/23 07:33:00) Diastolic Blood Pressure: 73 mm Hg (08/31/23 07:33:00) Blood pressure sites: Arm, left (08/31/23 07:33:00) Mean Arterial Pressure: 82 mm Hg (08/31/23 07:33:00) Pulse Pressure: 27 mm Hg (08/31/23 07:33:00) Oxygen Saturation: 100 % (08/31/23 07:33:00) Mode of Delivery (Oxygen): Room air (08/31/23 07:33:00) FiO2: 21 % (08/31/23 00:01:00) Early Warning Score: 1 (08/31/23 07:34:25) ? Precautions No Precautions documented.? NIH Stroke Scale Level of Consciousness for Stroke Scale: Alert (08/30/23 11:10:00) Response Month/Age: Answers both questions correctly (08/30/23 11:10:00) Response Open/Close Eyes: Performs both tasks correctly (08/30/23 11:10:00) Best Gaze: Normal (08/30/23 11:10:00) Visual: No visual loss (08/30/23 11:10:00) Facial Palsy: Normal symmetrical movements (08/30/23 11:10:00) Motor Function Left Arm: Drift (08/30/23 11:10:00) Motor Function Right Arm: No drift (08/30/23 11:10:00) Motor Function Left Leg: Drift (08/30/23 11:10:00) Motor Function Right Leg: No drift (08/30/23 11:10:00) Limb Ataxia: Absent (08/30/23 11:10:00) Sensory: Mild to moderate sensory loss (08/30/23 11:10:00) Best Language: No aphasia (08/30/23 11:10:00) Dysarthria NIH Stroke Scale: Normal (08/30/23 11:10:00) Extinction and Inattention: No abnormality (08/30/23 11:10:00) NIH Stroke Scale Score: 3 (08/30/23 11:10:00) ?? Kika Coma Scale Kika Coma Score: 15 (08/30/23 18:48:00) Motor Response-Adult: Obeys commands (08/30/23 18:48:00) Response Eye Opening: Spontaneously (08/30/23 18:48:00) Verbal Response-Adult: Oriented and converses (08/30/23 18:48:00) ? Physical Exam General Exam Appearance: Appears comfortable and appropriate, in no acute distress. Appears stated age.??laying in bed. attentive to examiner ?? HEENT: Normocephalic, atraumatic. No abrasions or ecchymosis. Conjunctiva without injection. PERRL.EOMI. Lids without ptosis. Nares patent. Mouth normal. Tongue midline. Neck supple ?? Cardiac: Regular rate and rhythm ?? Respiratory: Normal inspiration and expiration ?? Neurologic: Mentation: Awake, alert. Patient is oriented to person, place, time. Speech is clear and fluent. Follows simple and 3 step command. Able to repeat no ifs, ands or buts. Able to name objects. . head of mobile: PERRL. EOMI. No nystagmus. VFF to confrontation. Smile symmetric, no droop. Tongue midline anduvula rises symmetrically. Facial sensation in tact to light touch. Hearing acuity in tact to voice. Lateral head deviation and shoulder shrug 5/5?? Motor: Normal bulk/tone. Strength 5/5 UEs and LEs. Wharf Attendant equal. No pronator drift. Sensation: In tact to light touch of UEs and LEs, no extinction to DTS Coordination: Finger to nose smooth Gait:??deferred ? NIH Stroke Scale:??0 ?? 1a. LOC (0-alert; 1-not alert, arousable; 2-not alert, obtunded; 3- nonresponsive): _0 1b. Questions (0-answers two correctly; 1-answers one correctly; 2-answers neither correctly): _0 1c. Commands (0-perform two tasks; 1-performs one task; 2-performs neither tasks): _0 2. Gaze (0-normal; 1-partial gaze palsy; 2-forced deviation): _0 3. Visual garcia (0-no visual loss; 1-partial hemianopsia; 2-complete hemianopsia; 3-bilateral hemianopsia): _0 4. Facial palsy (0-normal; 1-minor palsy; 2-partial palsy; 3-complete paralysis): _0 5a. Motor left arm (0-normal; 1-drift before 10 sec; 2-falls before 10 sec; 3-no effort against gravity; 4-no movement): _0 5b. Motor right arm (0-normal; 1-drift before 10 sec; 2-falls before 10 sec; 3- no effort against gravity; 4-no movement): _0 6a. Motor left leg (0-normal; 1-drift before 5 sec; 2-falls before 5 sec; 3-no effort against gravity; 4-no movement): _0 6b. Motor right leg (0-normal; 1-drift before 5 sec; 2-falls before 5 sec; 3-no effort against gravity; 4-no movement): _0 7. Ataxia (0-absent; 1-one limb; 2-two limbs): _0 8. Sensory (0-absent; 1-mild/moderate; 2-severe/total loss): _0 9. Language (0-normal; 1-mild/moderate loss; 2-severe aphasia; 3-mute): _0 10. Dysarthria (0-normal; 1-mild/moderate; 2-severe): _0 11. Extinction (0-normal; 1-mild-one modality; [id number] modality): _0 ?? NIHSS Total: _0 _ Inpatient Medications Medications (24) Active SCHEDULED: (9) Aspirin 81 mg EC Tablet (aspirin 81 mg oral delayed release tablet) ??81 mg, By Mouth, Daily Fluoxetine 20 mg Capsule (FLUoxetine 20 mg oral capsule) ??60 mg, By Mouth, Daily in AM Gabapentin 300 mg Capsule (gabapentin 300 mg oral capsule) ??300 mg, By Mouth, 2 times a day Insulin Lispro 100 units/mL Inj (3mL) (Insulin LISPRO Scale) ??2-14 units, Subcutaneous Injection, 3 times a day before meals NaCl 0.9% Flush 3ml (NaCL 0.9% Flush) ??3 mL, IV Push, Every 8 hours OxyCODONE 10 mg ER Tablet (OxyCONTIN 10 mg oral tablet, extended release) ??10 mg, By Mouth, Every 8 hours Propranolol 20 mg Tablet (propranolol 20 mg oral tablet) ??40 mg, By Mouth, 2 times a day Risperidone 1 mg Tablet (risperiDONE 1 mg oral tablet) ??4 mg, By Mouth, Daily at bedtime Trazodone 50 mg Tablet (traZODone 50 mg oral tablet) ??50 mg, By Mouth, Daily at bedtime CONTINUOUS: (0) PRN: (15) Acetaminophen 325 mg Tablet (Acetaminophen Tablet) ??650 mg, By Mouth, Every 4 hours Dextromethorphan-Guaifenesin 20 mg-200 mg/10 mL Liqu UD (Robitussin DM Liquid) ??10 mL, By Mouth, Every 4 hours Dextrose Inj Syringe (Dextrose 50% Inj Syringe (25Gm)) ??12.5 Gm, IV Push Slowly, Every 20 minutes Dextrose Inj Syringe (Dextrose 50% Inj Syringe (25Gm)) ??25 Gm, IV Push Slowly, Every 15 minutes Docusate Sodium 100 mg Capsule (Docusate Sodium Capsule) ??100 mg 1 capsule, By Mouth, 2 times a day Glucagon 1 mg Inj (Glucagon Inj) ??1 mg, Intramuscular, Once Glucose 40% Gel (15 Gm) (Glucose Gel) ??15 Gm, By Mouth, Every 20 minutes Glucose 40% Gel (15 Gm) (Glucose Gel) ??30 Gm, By Mouth, Every 20 minutes Melatonin 3 mg Tablet (Melatonin Tablet) ??3 mg, By Mouth, Daily at bedtime NaCl 0.9% Flush 3ml (NaCL 0.9% Flush) ??3 mL, IV Push, Every 8 hours Ondansetron 2mg/mL Inj (2mL Vial) (Zofran Inj) ??4 mg, IV Push, Every 6 hours OxyCODONE 5 mg/Acetaminophen 325 mg Tablet (Percocet-5/325 325 mg-5 mg oral tablet) ??1 tablet, By Mouth, Once Polyethylene Glycol 17 Gm Powder (MiraLax Powder) ??17 Gm 1 pack/packet, By Mouth, Daily Senna Tablet ??8.6 mg 1 tablet, By Mouth, 2 times a day Simethicone 80 mg Chewable Tablet (Simethicone Tablet) ??80 mg, Chew, 3 times a day ? Results Recent Labs BLOOD BANK Blood Type O Positive ()?? 08/30/2023 10:37 Antibody Screen Negative ()?? 08/30/2023 10:37 ?? BLOOD COUNT & DIFF WBC 11.1 k/mm3 (High)?? 08/30/2023 10:46 RBC 5.89 m/mm3 ()?? 08/30/2023 10:46 Hgb 16.2 Gm/dL ()?? 08/30/2023 10:46 Hct 51.7 % (High)?? 08/30/2023 10:46 MCV 87.8 femtoliters ()?? 08/30/2023 10:46 MCH 27.5 pg ()?? 08/30/2023 10:46 MCHC 31.3 g/dL (Low)?? 08/30/2023 10:46 Platelet Count 294 k/mm3 ()?? 08/30/2023 10:46 RDW-SD 46.5 femtoliters ()?? 08/30/2023 10:46 MPV 11.0 femtoliters ()?? 08/30/2023 10:46 Nucleated RBC (Automated) 0.0 #/100 WBC'S ()?? 08/30/2023 10:46 Abs. NRBC 0.0 k/mm3 ()?? 08/30/2023 10:46 Abs. Neut 8.4 k/mm3 (High)?? 08/30/2023 10:46 Abs. Lymph 2.0 k/mm3 ()?? 08/30/2023 10:46 Abs. [place] 0.4 k/mm3 ()?? 08/30/2023 10:46 Abs. Eo 0.1 k/mm3 ()?? 08/30/2023 10:46 Abs. Baso 0.0 k/mm3 ()?? 08/30/2023 10:46 Neut % 75.9 % ()?? 08/30/2023 10:46 Lymph % 17.8 % ()?? 08/30/2023 10:46 [place] % 3.9 % (Low)?? 08/30/2023 10:46 Eos % 0.9 % ()?? 08/30/2023 10:46 Baso % 0.3 % ()?? 08/30/2023 10:46 Imm Gran 1.2 % ()?? 08/30/2023 10:46 Abs. Imm Gran 0.1 k/mm3 ()?? 08/30/2023 10:46 ?? CARDIAC High Sensitivity Troponin (HSTnT) 7 ng/L ()?? 08/30/2023 12:55 ?? CHEM GENERAL Sodium 136 mmol/L ()?? 08/30/2023 10:46 Potassium 4.6 mmol/L ()?? 08/30/2023 10:46 Chloride 97 mmol/L (Low)?? 08/30/2023 10:46 Bicarbonate Level 26 mmol/L ()?? 08/30/2023 10:46 Anion Gap 13 ()?? 08/30/2023 10:46 Glucose Level 149 mg/dL (High)?? 08/30/2023 10:46 Glucose, POC 125 mg/dL (High)?? 08/31/2023 05:30 Hemoglobin A1C (Monitoring) 6.0 % (High)?? 08/30/2023 10:46 BUN 15 mg/dL ()?? 08/30/2023 10:46 Creatinine-Blood 0.8 mg/dL ()?? 08/30/2023 10:46 Estimated GFR Creatinine 107 ML/MIN/1.73 M2 ()?? 08/30/2023 10:46 Calcium 9.8 mg/dL ()?? 08/30/2023 10:46 AST (SGOT) 19 units/L ()?? 08/30/2023 10:46 ?? COAG INR 1.0 ()?? 08/30/2023 10:46 Protime (PT) 10.7 seconds ()?? 08/30/2023 10:46 APTT 31.3 seconds ()?? 08/30/2023 10:46 ?? ENDOCRINE/TUMOR MARKER TSH 1.02 uIU/mL ()?? 08/30/2023 10:46 ?? LIPID STUDIES Cholesterol 217 mg/dL (High)?? 08/31/2023 02:26 Triglycerides 272 mg/dL (High)?? 08/31/2023 02:26 HDL Cholesterol 42 mg/dL ()?? 08/31/2023 02:26 LDL Cholesterol 121 mg/dL ()?? 08/31/2023 02:26 Non HDL Cholesterol 175 mg/dL (High)?? 08/31/2023 02:26 ?? URINE OTHER Est Creatinine Clearance 94.89 mL/min ()?? 08/30/2023 11:51 ? Urinalysis Est Creatinine Clearance: 94.89 mL/min (11:51) ? Assessment/Plan Jj Olivier is a 52-year-old right-handed male presenting to the emergency department with lossof balance/falls??left-sided??weakness and reported presentations incontinence.? Past medical history includes hypertension/hyperlipidemia/diabetes/AMRIA G with CPAP/migraine/smoker/ s/p L5-S1 decompression for cauda equina syndrome in 2018. lumbar radiculopathy in L3,L4??. ??Chronicback pain ?? non Contrast head CT without acute intracranial finding CTA head and neck??with no large vessel occlusion or significant stenosis MRI brain without acute intracranial abnormality MRI brain impression noting partially imaged upper cervical spine with degenerative changes with disc protrusion at C3-C4 Hemoglobin A1c 6% LDL 121 EKG sinus rhythm Echocardiogram no significant change from previous Routine EEG without evidence of epileptiform activity ?? Impression: Likely cervical spine compression given hyperreflexia and has neck pain and left radic with no facial droop; Similar previous presentations in the past with left lower extremity pain/weakness and urinary/fecal incontinence without syncope/LOC or??witnessed convulsions ? Recommending: Aspirin 81 mg p.o. daily dfor risk factors and primary prevetion C-spine MRI to follow-up on partially imaged study from brain MRI PM&R consulted Rehab considered: Not needed unless weakness not improved swallow screen passed - ADA diet with low NA+ Systolic blood pressure goal less than 180 and long-term 6-week blood pressure goal less than 130/80 LDL goal less than 70 smoking cessation EEG negative not likely seizure cause, PCP to please f.u for cardiology eval for syncope. No further neuro follow up needs currently noted. ?? Neurology??will sign off Discussed with Dr. Gonzales Message primary team via [place] connect recommendations ?Attending Attestation:??I saw the images, reviewed the pertinent history and physical and agree with the impression and plan ??as discussed and outlined by Macarena as outlined/edited David Gonzales MD Neurologist [facility] medical [facility] fax [phone] ? * Andreia Alvarado RN: SIGN, VERIFY, PERFORM Event Display: Progress Note Hospital Authored Date: [id number] Patient: JJ OLIVIER Age: 52 years Sex: Male : 1970 Associated Diagnoses: None Author: Andreia Alvarado RN Findings Narrative/Incidental Behavioral Resource RN Note - Chart reviewed due to triggering of systems- generated psych consult per [place] Suicide Severity Scale on tank systems maintainer assessment of suicidality. Patient stated, no when asked if ???wished to be ?? in the past month or had ???suicidal thoughts?? in the past month. Symptoms DO NOT warrant formal psych consult at this time. Please continue to assess for depression and suicidal ideation, consider placing formal psychiatric consult if warranted. Education on symptoms of depression and when to seek help placed in pt's dc plan. Please do not hesitate to order new psychiatric consult if patient???s SI status changes. Please call Behavior Resource team at [phone] or [email or web address] with any questions or concerns: Adam Pham, Doris Urbina, Eleonora Mack or Andreia Alvarado . Consult note * Yvonne RUDD, Mirta Fuentes: PERFORM, MODIFY, MODIFY Event Display: Consultation Note Authored Date: [id number] Patient: ??JJ OLIVIER ? Age:??52 Years?Sex:??Male?:??1970?? History of Present Illness Patient seen and evaluated at bedside. He reports??recent onset of left upper extremity paraesthesias and weakness over the last few weeks, with some difficulty grasping and holding onto??objects in his left hand.??He also reports??long standing history of bilateral lower extremity??weakness, with?? mechanical??falls occurring??more frequently as of late.??Of note, he has a past medical history significant for cauda equina syndrome s/p L5-S1 decompression and discectomy on 05/31/[address] Wilkins. He was also seen by our service inpatient in October 2022 for concern of urinary and fecal incontinence??with no??evidence of cauda equina, as well as in??March 2023 for left lower extremity radiculopathy in the setting of an??L5-S1 disc protrusion with foraminal stenosis, treated non-operatively. Review of Systems See HPI. All other ROS negative. Physical Exam Vitals & Measurements T:??97.5?F?? HR:??68??(Peripheral)?? RR:??20?? BP:??109/71?? SpO2:??98%?? HT:??165??cm?? WT:??93??kg?? BMI:??34.16?? General:??Appears well, in no acute distress, lying comfortably in bed,??oriented to person/place/time, thoughts/mood/judgements normal HEENT: Normocephalic, trachea midline Respiratory:??Breathing is even and non-labored?? Extremities:?Symmetric, no edema, no calf tenderness Skin:??No obvious rashes or lesions Neurologic:?? Mental status: awake, alert oriented to location, date and self speech is clear, fluent, and appropriate follows simple and complex commands CN II-XII grossly intact shoulder shrug symmetric Motor: normal bulk and tone?? Upper Extremities- Deltoid:?5/5 right?4/5 left Biceps:?5/5 right?4/5 left Triceps:?5/5 right?4/5 left Wrist Ext:?5/5 right?4-/5 left Hand qa test analyst:?5/5 right?4-/5 left Fine Motor:?5/5 right?3+/5 left Lower Extremities- Hip Flexion:?5/5 right?4/5 left?? Knee Extension:?5/5 right?4/5 left Plantar flexion:?5/5 right?4/5 left Dorsiflexion:?5/5 right?4/5 left Sensation:?? Diminished sensation throughout??entire left upper and left lower extremity; otherwise??intact to light touch throughout right upper and right lower extremity no saddle anesthesias? Reflexes: no Arcos's bilaterally no Clonus??bilaterally Assessment/Plan Jj is a 52-year-old male with pmhx HTN, HLD, Diabetes, Diverticulitis/Diverticulosis, Migraines, Smoker, Sleep Apnea who presented for an episode of??syncope as well as??acutely worsening??left upper extremity??paresthesias??and weakness. Separately, he reports progressively worsening bilateral lower extremity??weakness??with??increased??frequency of falls.??MRI cervical spine was performed as part of his workup which demonstrated severe central canal stenosis at C3-C4 with focal cord compression and myelopathic cord signal abnormality. ?? Of note, he has a past medical history significant for cauda equina syndrome s/p L5-S1 decompression and discectomy on 05/31/[address] Wilkins. He was also seen by our service inpatient in October 2022 for concern of urinary and fecal incontinence??with no??evidence of cauda equina, as well as in??March 2023 for left lower extremity radiculopathy in the setting of an??L5-S1 disc protrusion with foraminal stenosis, treated non-operatively. ?? Recommendations: -No emergent neurosurgical intervention -q4hr neuro checks -Medrol Dosepak -Follow-up in outpatient neurosurgery clinic with Dr. Puga next Tuesday 09/04 at 1:00pm??in outpatient NSGY clinic. Office notified accordingly. -Medical management, pain control, supportive care per primary team -Neurosurgery to sign off at this time ?? Please page [phone] with any questions or concerns Case and images discussed with attending neurosurgeon, Dr. Puga Problem List/Past Medical History Ongoing Cauda equina syndrome Chest pain Controlled substance agreement signed 05/29/2023 Depression Diabetes Fatty infiltration of liver GERD (gastroesophageal reflux disease) Health [facility], active care coordination [facility] [phone] HTN (hypertension) Hyperlipidemia Illiteracy Lower back pain [...] capsule, By Mouth, 2 times a day Nitroglycerin: 0.4 mg = 1 tablet, Sublingual, [...] Family History Mother: Arthritis; Diabetes mellitus; Emphysema Lab Results Labs Last 24 Hours No qualifying data available. Images I personally reviewed the images??and performed my own independent interpretation. Official radiology??report impression provided below. ?? MRI Cervical Spine w/o contrast 08/31/23: ?? IMPRESSION: ?? Degenerative changes of the cervical spine [...] right at C5-6 and bilaterally at C6-7. ?? * James Greer MD: PERFORM, MODIFY, MODIFY Event Display: Consultation Note Authored Date: Patient: ??JJ OLIVIER ? Age:??52 Years?Sex:??Male?:??1970?? History of Present Illness 52-year-old right-handed man with a past medical history of hypertension Diabetes, Diverticulitis/Diverticulosis,?? High cholesterol, Migraines, Smoker,?? & Sleep apnea.?? He presented to [facility] on 08/30 with acute weakness after a possible syncopal event with fall &unknown if LOC; he was noted to be incontinent. CT head was without any acute findings and CT angiogram head and neck with no large vessel occlusion origin of the right SALESPERSON SHEET MUSIC and a large left P-comm noted.? The patient passed the RN bedside swallow evaluation and was started on a regular texture diet. ?? NIHSS 3??for left leg and arm drift??and mild to moderate sensory loss on the left. Physical Exam Vitals & Measurements T:??98.2?F?? HR:??100??(Peripheral)?? RR:??19?? BP:??100/73?? SpO2:??100%?? HT:??165??cm?? WT:??93??kg?? BMI:??34.16?? General:??Alert.?? No apparent distress. Psychiatric: Mood:??Normal.?? Pleasant & Cooperative Oriented X 3 ? HEENT: Cranial Nerves II-XII:??Normal, no central facial droop.?? EOMI.?? Blinks to threat??bilaterally Visual garcia:??Full. ?? Visual neglect:??None.?? No diplopia or disconjugate gaze. ??No nystagmus. ?? Tracks:??Bilaterally ?? Extremities:?? Edema:??None.?? Passive ROM:??Normal all limbs.? Neurologic? Follows Commands:??1 step well Memory:??Grossly normal ?? Language:??Normal.??Dysarthria:??None. ??Dysphonia:??None.? Motor Exam:??Motor strength 5/5??on right, 4+ Left.?? Sensory Exam: light touch??decreased on left including face.?? Coordination Exam: finger to nose??slightly slower on left, Fine motor coordination??slightly slower on left. Deep Tendon Reflexes??2+ and symmetrical in upper and lower extremities ?? Spasticity Exam:??None.? Mobility Exam: Supervision??with or without walker.?? Gait slightly asymmetrical. ??Might be??left??antalgia from chronic??back problems. ?? Swallow_:? Thin liquids??normal. ?? Assessment/Plan 52-year-old man??with multiple medical problems??as above??presenting??08/30??with mild left-sided findings??and a possible syncopal event. Possible mild??CVA. ?? Recommendations: ?? Activity:??Encourage ambulation with supervision Bowel Regimen:??Monitor on current regimen Bladder:??Voiding Normally. Cognition/psychopharmacology:??Normal. No issues..? Neurology:??Appreciate Neurology Note. Pain Management:??Agree with current regimen for his chronic back pain.?? Spasticity:??None ?? Swallow:??No dysphagia. Continue regular texture diet. ?? Current rehab treatment & further recommendations: Occupational Therapy:??Not needed here.?? If he does not return to baseline he can do outpatient OT. Physical Therapy:??Currently receiving Speech Therapy:??Not needed. ?? Disposition: Probably??home without services. Outpatient OT??and/or PT if??deficits remain ?? Code Status:??Full Resuscitation HCP:??Has HCP in [facility] Problem List/Past Medical History Ongoing Cauda equina syndrome Chest pain Controlled substance agreement signed 05/29/2023 Depression Diabetes Fatty infiltration of liver GERD (gastroesophageal reflux disease) Health [facility], active care coordination [facility] [phone] HTN (hypertension) Hyperlipidemia Illiteracy Lower back pain [...] intervertebral disc; 1 interspace, lumbar Nehal fundoplication [facility] Medications Medications (24) Active SCHEDULED: (9) Aspirin 81 mg EC Tablet (aspirin 81 mg oral delayed release tablet) ??81 mg, By Mouth, Daily Fluoxetine 20 mg Capsule (FLUoxetine 20 mg oral capsule) ??60 mg, By Mouth, Daily in AM Gabapentin 300 mg Capsule (gabapentin 300 mg oral capsule) ??300 mg, By Mouth, 2 times a day Insulin Lispro 100 units/mL Inj (3mL) (Insulin LISPRO Scale) ??2-14 units, Subcutaneous Injection, 3 times a day before meals NaCl 0.9% Flush 3ml (NaCL 0.9% Flush) ??3 mL, IV Push, Every 8 hours OxyCODONE 10 mg ER Tablet (OxyCONTIN 10 mg oral tablet, extended release) ??10 mg, By Mouth, Every 8 hours Propranolol 20 mg Tablet (propranolol 20 mg oral tablet) ??40 mg, By Mouth, 2 times a day Risperidone 1 mg Tablet (risperiDONE 1 mg oral tablet) ??4 mg, By Mouth, Daily at bedtime Trazodone 50 mg Tablet (traZODone 50 mg oral tablet) ??50 mg, By Mouth, Daily at bedtime CONTINUOUS: (0) PRN: (15) Acetaminophen 325 mg Tablet (Acetaminophen Tablet) ??650 mg, By Mouth, Every 4 hours Dextromethorphan-Guaifenesin 20 mg-200 mg/10 mL Liqu UD (Robitussin DM Liquid) ??10 mL, By Mouth, Every 4 hours Dextrose Inj Syringe (Dextrose 50% Inj Syringe (25Gm)) ??12.5 Gm, IV Push Slowly, Every 20 minutes Dextrose Inj Syringe (Dextrose 50% Inj Syringe (25Gm)) ??25 Gm, IV Push Slowly, Every 15 minutes Docusate Sodium 100 mg Capsule (Docusate Sodium Capsule) ??100 mg 1 capsule, By Mouth, 2 times a day Glucagon 1 mg Inj (Glucagon Inj) ??1 mg, Intramuscular, Once Glucose 40% Gel (15 Gm) (Glucose Gel) ??15 Gm, By Mouth, Every 20 minutes Glucose 40% Gel (15 Gm) (Glucose Gel) ??30 Gm, By Mouth, Every 20 minutes Melatonin 3 mg Tablet (Melatonin Tablet) ??3 mg, By Mouth, Daily at bedtime NaCl 0.9% Flush 3ml (NaCL 0.9% Flush) ??3 mL, IV Push, Every 8 hours Ondansetron 2mg/mL Inj (2mL Vial) (Zofran Inj) ??4 mg, IV Push, Every 6 hours OxyCODONE 5 mg/Acetaminophen 325 mg Tablet (Percocet-5/325 325 mg-5 mg oral tablet) ??1 tablet, By Mouth, Once Polyethylene Glycol 17 Gm Powder (MiraLax Powder) ??17 Gm 1 pack/packet, By Mouth, Daily Senna Tablet ??8.6 mg 1 tablet, By Mouth, 2 times a day Simethicone 80 mg Chewable Tablet (Simethicone Tablet) ??80 mg, Chew, 3 times a day Patient Education Titles Depression: Tips to Help Yourself?? Depression?? Lab Results PM&R Labs WBC:??11.1 k/mm3??High (08/30/23) Platelet Count: 294 k/mm3 (08/30/23) Sodium: 136 mmol/L (08/30/23) BUN: 15 mg/dL (08/30/23) Creatinine-Blood: 0.8 mg/dL (08/30/23) AST (SGOT): 19 units/L (08/30/23) ALT (SGPT): 14 units/L (07/08/23) * David Gonzales MD: MODIFY, SIGN, PERFORM, SIGN, VERIFY, MODIFY, SIGN, MODIFY, SIGN, MODIFY, SIGN, MODIFY, SIGN Event Display: Consultation Note Authored Date: Patient: JJ OLIVIER Age: 52 years Sex: Male : 1970 Associated Diagnoses: None Author: David Gonzales MD Visit Information Visit Type Type: Neurological consultation. History of Present Illness This is a 52-year-old right-handed gentleman alert and has an acute stroke with a past medical history of hypertension, Diabetes, Diverticulitis/Diverticulosis, High cholesterol, Migraines, Smoker, Sleep apnea who arrived last known well noted to be last night at 9 PM going to bed and hence out of window for lytic therapy, presented this morning with acute weakness after a possible syncopal eventwith fall unknown if LOC and was noted to be incontinent .he is not sure how long he might of lost consciousness but does report AVILES.and reports weakness left UE & LE Left facial pain and chest pain. She does not take an aspirin every day but was told to take sublingual nitroglycerin as needed. He reports a headache to be left-sided predominantly involving the left neck face and occipital regions. He denies any visual disturbance any speech changes or any trouble with coordination on the right side. He has had no history of previous loss of consciousness syncope or seizures. CT head was without any acute findings and CT angiogram head and neck in the scanner are reviewed with no large vessel occlusion origin of the right SALESPERSON SHEET MUSIC and a large left P-comm noted. He had a similar presentation back in April and May of this year where he woke up early in the morning with left-sided chest pain, developed a syncopal episode with urinary incontinence. At that time he reported residual very mild left- sided chest pain and he felt like his heart was racing beforethis happened but no left-sided numbness or weakness Past Medical History Problem list All Problems (Selected) Cauda equina syndrome / [id number] / Confirmed Chest pain / 91278181 / Confirmed Depression / 54904174 / Confirmed Diabetes / 100559707 / Confirmed Controlled substance agreement signed 05/29/2023 / [id number] / Confirmed GERD (gastroesophageal reflux disease) / 792567253 / Confirmed Hyperlipidemia / 69073889 / Confirmed HTN (hypertension) / 3679495210 / Confirmed Illiteracy / 698302606 / Confirmed Lower back pain / 529625504 / Confirmed Lumbar radiculopathy / 791147413 / Confirmed Obese class I / [id number] / Confirmed Obstructive sleep apnea / 618385049 / Confirmed Health [facility], active care coordination [facility] Nancy Thompsonbharath [phone] / [id number] / Confirmed Psychotic disorder / 420088499 / Confirmed Fatty infiltration of liver / 363022008 / Confirmed Tubular adenoma of colon / 0761501457 / Confirmed Allergies Allergic Reactions (Selected) Severity Not Documented Lisinopril- Angioedema. Shrimp- No reactions were documented. Current medications (Selected) Inpatient Medications Ordered Acetaminophen Tablet: 650 mg, Tablet, By Mouth, Every 4 hours, PRN for Pain , Mild, Temperature Greater than 100.5, Routine, 08/30/23 13:27:00 EST Dextrose 50% Inj Syringe (25Gm): 12.5 Gm, Injection, IV Push Slowly, Every 20 minutes, PRN for Blood Glucose, 50 to 70 and patient is NOT AWAKE or NPO; Repeat Glucose POC in 20 minutes, Routine, 08/30/23 13:34:00 EST Dextrose 50% Inj Syringe (25Gm): 25 Gm, Injection, IV Push Slowly, Every 15 minutes, PRN for Blood Glucose, LESS than 50 and patient is NOT AWAKE or NPO - call MD if episode NOT resolved within 20 minutes, Routine, 08/30/23 13:34:00 EST Docusate Sodium Capsule: 100 mg, Capsule, By Mouth, 2 times a day, PRN for Constipation, Routine, 08/30/23:27:00 EST FLUoxetine 20 mg oral capsule: 60 mg, Capsule, By Mouth, Daily in AM, Routine, 08/31/23 9:00:00 EST Glucagon Inj: 1 mg, Injection, Intramuscular, Once, For severe hypoglycemic event and patient is too altered to take glucose by mouth and does not have IV access., PRN for Other, Routine, 08/30/23:34:00 EST Glucose Gel: 15 Gm, Gel, By Mouth, Every 20 minutes, PRN for Blood Glucose, 50 to 70 and patient ALERT, Routine, 08/30/23:34:00 EST Glucose Gel: 30 Gm, Gel, By Mouth, Every 20 minutes, PRN for Blood Glucose, LESS THAN 50 and patient ALERT, Routine, 08/30/23 13:34:00 EST Insulin LISPRO Scale: 2-14 units, Injection, Subcutaneous Injection, 3 times a day before meals, Routine, 08/30/23 16:00:00 EST, Do NOT cover bedtime Glucose unless greater than 300. If greater than 300, call MD for one time dose of Insulin Melatonin Tablet: 3 mg, Tablet, By Mouth, Daily at bedtime, PRN for Insomnia, Routine, 08/30/23:27:00 EST MiraLax Powder: 17 Gm, Powder, By Mouth, Daily for 14 days, Dissolve in 8 ounces of water., PRN forConstipation, Routine, 08/30/23 13:27:00 EST, Stop date 09/13/23 13:26:00 EST NaCL 0.9% Flush: 3 mL, Injection, IV Push, Every 8 hours, PRN for Line/Tube Patency, Routine, 08/30/23 13:27:00 EST NaCL 0.9% Flush: 3 mL, Injection, IV Push, Every 8 hours, Routine, 08/30/23 14:00:00 EST OxyCONTIN 10 mg oral tablet, extended release: 15 mg, ER Tablet, By Mouth, Every 12 hours, Routine,08/30/23 15:00:00 EST Robitussin DM Liquid: 10 mL, Syrup, By Mouth, Every 4 hours, PRN for Cough, Routine, 08/30/23 13:27:00 EST Senna Tablet: 1 tablet, Tablet, By Mouth, 2 times a day, PRN for Constipation, Routine, 08/30/23 13:27:00 EST Simethicone Tablet: 80 mg, Chew Tablet, Chew, 3 times a day, PRN for Gas, Routine, 08/30/23 13:27:00 EST gabapentin 300 mg oral capsule: 300 mg, Capsule, By Mouth, 2 times a day, Routine, 08/30/23 14:00:00 EST propranolol 20 mg oral tablet: 40 mg, Tablet, By Mouth, 2 times a day, Routine, 08/30/23 21:00:00 EST risperiDONE 1 mg oral tablet: 4 mg, Tablet, By Mouth, Daily at bedtime, Routine, 08/30/23 21:00:00 EST traZODone 50 mg oral tablet: 50 mg, Tablet, By Mouth, Daily at bedtime, Routine, 08/30/23 21:00:00 EST Prescriptions Prescribed OxyCONTIN 15 mg oral tablet, extended release: 1 tablet = 15 mg, By Mouth, Every 12 hours, dx: M54.5 MassPAT checked; appropriate, # 60 tablet, 0 Refills, Maintenance, 08/14/23 13:55:00 EDT, ER Tablet, [facility]/pharmacy #[id number], Partial fill upon patient request if the prescription is for a schedule II... Ventolin HFA 108 mcg/inh inhalation aerosol with adapter: 2 puffs, Inhalation, 4 times a day, PRN NEEDED FOR WHEEZING, # 18 Gm, 11 Refills, Maintenance, 02/22/23 8:17:00 EDT, [facility]/pharmacy #[id number], 166, cm, 01/18/23 15:56:00 EDT, Height, 91, kg, 01/18/23 15:56:00 EDT, Dry Weight acetaminophen-oxycodone 325 mg-10 mg oral tablet: 1 tablet, By Mouth, Daily at bedtime, for 30 days, mass pat verified, # 30 tablet, 0 Refills, Acute 09/13/23 13:56:00 EST, 08/14/23 13:56:00 EDT, [facility]/pharmacy #[id number], Partial fill upon patient request if the prescription is for a schedule II opioid aditya... diclofenac 1% topical gel: 1 application, Topically, 4 times a day, # 100 Gm, 3 Refills, Maintenance, 04/30/23 14:32:00 EDT, Gel, [facility]/pharmacy #[id number], Partial fill upon patient request if the prescription is for a schedule II opioid drug., 165, cm, 04/30/23 13:31:00 EDT, Height,... gabapentin 300 mg oral capsule: 300 mg, 1, capsule, By Mouth, 2 times a day, # 60 capsule, Refills 0, Tot. Refills 0, Maintenance, 08/14/23 13:53:00 EDT, Route to Pharmacy Electronically, [facility]/pharmacy #[id number], Partial fill upon patient request if the prescription is for a schedule II... nitroglycerin 0.4 mg sublingual tablet: 1 tablet = 0.4 mg, Sublingual, Every 5 minutes, PRN Chest Pain, # 100 tablet, 0 Refills, Maintenance, 06/08/23 16:23:00 EDT, Tablet, [facility]/pharmacy #[id number], Partial fill upon patient request if the prescription is for a schedule II opioid drug., 165, cm,... propranolol 20 mg oral tablet: 2, tablet, By Mouth, 2 times a day, # 120 tablet, Refills 5, Maintenance, 04/19/23 20:48:00 EDT, Route to Pharmacy Electronically, [id number], 165, cm, 04/09/23 9:47:00 EDT, Height, 89.1, kg, 03/17/23 16:52:00 EDT, Dry Weight Documented Medications Documented FLUoxetine 20 mg oral capsule: TAKE 3 CAPSULES BY MOUTH EVERY DAY IN THE MORNING risperiDONE 2 mg oral tablet: 4 mg, 2, tablet, By Mouth, Daily at bedtime, Rx'd by psychiatry, Maintenance, 01/28/19 20:39:47 EDT traZODone 100 mg oral tablet: TAKE 1/2 TO 1 TABLET BY MOUTH AT BEDTIME Surgical History Procedure/Surgical Profile Colonoscopy (poor prep) (SNOMED CT 720192099) on 07/25/2017 at 46 Years. Incision and drainage, deep abscess, bursa, or hematoma, thigh or knee region (CPT4 70912) on 05/23/2016 at 45 Years. Esophagogastroduodenoscopy and biopsy (SNOMED CT 7036053316) on 05/15/2016 at 45 Years. Colonoscopy with polypectomy (SNOMED CT [id number]) on 05/15/2016 at 45 Years. Incision and Drainage Knee Open (Right) on 12/08/2015 at 45 Years. Comments: 12/08/2015 19:25 Kim Michel auto-populated from documented surgical case Aspiration Joint Procedure (w/possible, Right) on 12/08/2015 at 45 Years. Comments: 12/08/2015 19:25 Kim Michel auto-populated from documented surgical case Incision and Drainage Knee Open (Right) on 12/05/2015 at 45 Years. Comments: 12/06/2015 0:17 Cristela Ontiveros auto-populated from documented surgical case Nehal fundoplication (SNOMED CT [id number]). Comments: 03/22/2016 12:48 EDT - Charu Anderson Incision and drainage, deep abscess, bursa, or hematoma, thigh or knee region (CPT4 76063). Laminotomy (hemilaminectomy), with decompression of nerve root(s), including partial facetectomy, foraminotomy and/or excision of herniated intervertebral disc; 1 interspace, lumbar (CPT4 16323). Social History Social History Alcohol Details: Use: Current. Frequency: 1-2 times per year. Exercise Details: Self assessment: Good condition. Home/Environment Details: Living situation: Home/Independent. Lives with: Alone. Other: Has 4 daughters, 1 son. Nutrition/Health Details: Diet: Regular. Substance Abuse Details: Use: Never. Tobacco Details: Former smoker, Other: Quit 2014. Electronic Cigarette/Vaping Details: Electronic Cigarette Use: Never. . Family History Family history of coronary disease in the parents as well as vascular risk factors Review of Systems Review of Systems Significant: ALL OTHER SYSTEMS REVIEWED & NEGATIVE. Physical Examination Vital Signs Vitals: Vitals : VITAL SIGNS SECTION 08/30/2023 14:54 EST Early Warning Score 2.00 08/30/2023 14:53 EST Temperature 97.9 DegF Temperature Route Oral Pulse Rate 87 bpm Respiratory Rate 17 br/min Systolic Blood Pressure 112 mm Hg Diastolic Blood Pressure 65 mm Hg Blood pressure sites Arm, left Mean Arterial Pressure 81 mm Hg Pulse Pressure 47 mm Hg Oxygen Saturation 98 % Mode of Delivery (Oxygen) Room air 08/30/2023 14:31 EST Early Warning Score 2.00 08/30/2023 14:00 EST Early Warning Score 2.00 08/30/2023 13:59 EST Early Warning Score 0.00 08/30/2023 13:59 EST Pulse Rate 100 bpm H Respiratory Rate 16 br/min Systolic Blood Pressure 124 mm Hg Diastolic Blood Pressure 92 mm Hg H Blood pressure sites Arm, left Oxygen Saturation 95 % Mode of Delivery (Oxygen) Room air 08/30/2023 13:58 EST Respiratory Rate 14 br/min L 08/30/2023 13:02 EST Early Warning Score 0.00 08/30/2023 11:03 EST Temperature 98.6 DegF Temperature Route Oral Pulse Rate 97 bpm H Respiratory Rate 16 br/min Systolic Blood Pressure 148 mm Hg H Diastolic Blood Pressure 94 mm Hg H Blood pressure sites Arm, left Oxygen Saturation 98 % Mode of Delivery (Oxygen) Room air 08/30/2023 10:46 EST Pulse Rate 92 bpm H Respiratory Rate 18 br/min Systolic Blood Pressure 142 mm Hg H Diastolic Blood Pressure 90 mm Hg H Blood pressure sites Arm, left Oxygen Saturation 97 % Mode of Delivery (Oxygen) Room air . Physical Examination Neurological: mental status: Awake, oriented , language : no aphasia. Cranial nerves: extra ocular movements intact, facial musculature no facial asymmetry, uvula midline, hearing normal bilateral, neck musculature 5/5, pupils:PERRLA, shoulder shrug 5/5, tongue protrudes midline, visual garcia intact to confrontation testing. Motor exam: strength RUE 5/5, LUE 4/5, RLE: 5/5, LLE:4/5, tone normal, tremor none. Cerebellar: RUE: intact finger to nose, LUE: intact finger to nose RLE: intact heel knee villa; LLE: intact heel knee villa DTRs: 2+ symmetric, brisk LE, no clonus Sensory exam: decreased left light touch Neglect -Visual: no extinction to double simultaneous stimulation normal. -Sensory: double simultaneous stimulation normal. Stance and gait:?? deferred NIH Stroke Scale Level of Consciousness for Stroke Scale : Alert Response Month/Age : Answers both questions correctly Response Open/Close Eyes : Performs both tasks correctly Best Gaze : Normal Visual : No visual loss Facial Palsy : Normal symmetrical movements Motor Function Left Arm : Drift Motor Function Right Arm : No drift Motor Function Left Leg : Drift Motor Function Right Leg : No drift Limb Ataxia : Absent Sensory : Mild to moderate sensory loss Best Language : No aphasia Dysarthria NIH Stroke Scale : Normal Extinction and Inattention : No abnormality NIH Stroke Scale Score : 3 Results Review General results Lab / Imaging Results Laboratory : LABORATORY 08/30/2023 12:55 EST High Sensitivity Troponin (HSTnT) 7 ng/L 08/30/2023 11:51 EST Est Creatinine Clearance 94.89 mL/min 08/30/2023 10:46 EST WBC 11.1 k/mm3 H RBC 5.89 m/mm3 Hgb 16.2 Gm/dL Hct 51.7 % H MCV 87.8 femtoliters MCH 27.5 pg MCHC 31.3 g/dL L Platelet Count 294 k/mm3 RDW-SD 46.5 femtoliters MPV 11.0 femtoliters Nucleated RBC (Automated) 0.0 #/100 WBC'S Abs. NRBC 0.0 k/mm3 Abs. Neut 8.4 k/mm3 H Abs. Lymph 2.0 k/mm3 Abs. [place] 0.4 k/mm3 Abs. Eo 0.1 k/mm3 Abs. Baso 0.0 k/mm3 Neut % 75.9 % Lymph % 17.8 % [place] % 3.9 % L Eos % 0.9 % Baso % 0.3 % Imm Gran 1.2 % Abs. Imm Gran 0.1 k/mm3 INR 1.0 Protime (PT) 10.7 seconds APTT 31.3 seconds Sodium 136 mmol/L Potassium 4.6 mmol/L Chloride 97 mmol/L L Bicarbonate Level 26 mmol/L Anion Gap 13 Glucose Level 149 mg/dL H BUN 15 mg/dL Creatinine-Blood 0.8 mg/dL Estimated GFR Creatinine 107 ML/MIN/1.73 M2 Calcium 9.8 mg/dL AST (SGOT) 19 units/L High Sensitivity Troponin (HSTnT) 7 ng/L TSH 1.02 uIU/mL 08/30/2023 10:40 EST Glucose, POC 168 mg/dL H Imaging : RADIOLOGY 08/30/2023 12:52 EST Chest 2 Views Frontal and Lat Chest 2 Views Frontal and Lat 08/30/2023 11:[address] Head-Hyper Acute Stroke CT Head-Hyper Acute Stroke CT Angio Neck Hyperacute Stroke RESULT: CT Angio Neck Hyperacute Stroke CT Angio Head Hyperacute Stroke CT Angio Head Hyperacute Stroke EKG Results NormalSinus rhythm Impression and Plan COMPREHENSIVE PLAN Impression: With loss of balance and fall and residual left-sided weakness differential diagnosis includes: Right MCA subcortical stroke versus Cervical spoine compression given hyperreflxia(has neckpain and no face droop) vs onset of syncope with left-sided weakness due to fall from the same and injury, versus atypical postictal weakness on the left side from seizure though no witnessed convulsive activity and similar events of syncope in the past Plan Admit for tele neurochecks per unit std ASA 325 mg now (not taking at home) and then 81mg daily Plavix deferred Rehab considered: Not needed unless weakness not improved If MRi brain neg and need C spine MRI and PMR for cauda LBP needs/eval swallow screen passed - ADA diet with low NA+ BP control below systolic 200 unless ecg changes or JOSEPHINE then no needed for permissive HTN, after 24hr aim for SBP below 180, and long goods drier 6 weeks BP goal less than 130/80 check Lipid a1c Recce statin for goal LDL<70 MRI brain no ronaldo when feasible ordered TTE no bubble for syncope work up and further syncope work-up deferred to primary team. EEG r/o seizure though not clear if postictal vs injury leading to symptoms from fall on left side leading to the above findings Smoking cessation counseling and nicotine replacement therapy to help quit smoking Thanks. mayra YOST MD staff and patient and Stroke education given to patient or family work up explained to call alert staff if any new changes, pager [phone] Stroke Management TPA Considered DVT prophylaxis Sub Q heparin Antiplatelet therapy Report sent to all consultants: Vaibhav RAWLS, Alonzo. Note * Doris Butler RN: PERFORM Event Display: Discharge/Transfer Note Hospital Authored Date: [id number] Nursing Discharge Note Entered On: 08/31/2023 16:12 EST Performed On: 08/31/2023 16:12 EST by Doris Butler RN Nursing Discharge Note 2 Discharge Time : 08/31/2023 16:12 EST Discharge Level of Care at Discharge : Homehealth/VNA Discharge VNA/Hospice/Home Care(v001) : [facility] [phone] Patient Left Unit Via : Ambulatory Patient Accompanied Off Unit with : Responsible adult DC Instructions Provided & Signed by Pt : Yes Patient Understands D/C Instructions : Yes Patient Instructions Discharge Signed : Yes Did Pt have Specialty Bed or Wound Vac : No Doris Butler RN - 08/31/2023 16:12 EST * Mary Lou Swanson MD: PERFORM Event Display: Discharge/Transfer Note Hospital Authored Date: [id number] Patient: ??JJ OLIVIER ? Age:??52 Years?Sex:??Male?:??1970?? Patient Information Discharge Location: [facility] Primary Care Physician: Alonzo Esposito MD Admit Date/Time: 08/30/23 08:54 Discharge Disposition Discharge Disposition: Home with Home Health Discharge Diagnosis Left hemiplegia (G81.94) Left sided numbness (R20.0) Syncope (R55) GERD (gastroesophageal reflux disease) Hyperlipidemia [...] 1 TABLET BY MOUTH AT BEDTIME ? Durable Medical Equipment Discharge recommendations: Home with services (08/31/23) Name of Agency #1: [facility] (08/31/23) Agency Line Assigner #1: [phone] (08/31/23) Service Categories #1: Physical Therapy (08/31/23) Service Comments #1: A nurse will call in 1-2 days to arrange a visit (08/31/23) CPAP/BiPAP Mask Type: Full (08/31/23) CPAP/BiPAP Mask Size: Large (08/31/23) Ambulatory devices needed: None (08/30/23) ? Medications Started merdrol dose pack ??ASa?Atorvastatin Allergies Allergies ?(Active and Proposed Allergies Only) Shrimp? (Severity: Unknown severity, Onset: Unknown) lisinopril? (Severity: Unknown severity, Onset: Unknown) ?Reactions: Angioedema ? Future Appointments Sunday 1:00 PM EST ?? With: Clint Puga MD Where: [address] [place] [address]- Status: Pending Sunday 2:00 PM EST ?? With: Alonzo Esposito MD Where: [address] [address]- Status: Pending Sunday 9:00 AM EST ?? With: Alonzo Esposito MD Where: [address] [address]- Status: Pending Objective Assessment and Plan ?52-year-old male with past medical history significant for diabetes mellitus type 2 ( not on medication ) , GERD, dyslipidemia??, HTN, syncope , chronic pain?? presented to ED?? palpitation, headache, left sided paresthesia, possible syncope w urinary incontinence . ??CT head without any acute findings, CTA head and neck did not show any large vessel obstruction. ??Neurology was consulted. ??Patient went for MRI, MRI??did not show any acute infarct.?? EEG without any acute findings, telemetrydid not show any arrhythmia.?? MRI of the cervical spine concern for severe stenosis, has been evaluated by neurosurgery, they recommend Medrol Dosepak, they will follow-up on the patient as outpatient.?? Has been seen by PT PT recommends discharge home with services. ??Patient will be discharged home with services today, discharge plan was discussed with patient ? Rule out CVA?? Possible syncope ?? Patient complaining of new onset paresthesia on the left side, mild left upper extremity weakness Also complaining of episode of loss of consciousness without any premonitory symptoms He has history of syncope in the past, no history of cardiac arrhythmia, no structural heart disease, syncope was presumed to be vasovagal syncope No history of CVA,??complaining of ongoing paresthesia on the left side Does not have any history of seizure, no reported post ictal state ??Neuro on board ??CT head , CTA head and neck - no acute ??MRI brain - no acute EEG no acute? MRI brain concerning for cervical spine stenosis MRI c spine done Neuro recommend to continue ASA ??seen by PMR PT recommends home w services ? Severe Cervical stenosis?? at c3-4 ?? MRI C spine -?? Severe central stenosis at C3-4 with focal cord compression and myelopathic cord signal abnormality. * ??Moderate central stenosis is also present at C4-5. ??Neuro surgery consulted?? Neurosurgery recommends??Medrol Dosepak Neurosurgery has arranged??follow-up next week ? Chest discomfort palpitation ?C/o palpitation, chest pain?Troponin negative ??EKG non ischemic ??tele- no arrytyhmia ??Echo?? - no acute Continue home propranolol ? Chronic pain ??Depression ?? continue home dose of Oxycontin, fluoxetine, trazodone, risperidone ? . Physical Exam ??GENERAL: In no apparent distress HEENT: Head normocephalic, PERRL,Moist mucous membrane. Neck supple CARDIOVASCULAR: Normal rate and rhythm, no murmurs, no rubs, no gallops RESPIRATORY: Lungs clear to auscultation, no wheezes , no crackles ABDOMEN/GI: Nondistended, soft, nontender, normal bowel sounds EXTREMITIES: No pitting edema CONSUMER INSIGHTS SPECIALIST: Alert and oriented x 3. strength 5/5 in?? RUE ??4+ in LUE , 4+ in?? BLEs PSYCHIATRIC: Calm and co-operative SKIN: Warm and dry. Consultants Neurology ??NSG ??PMR Pending Results Add On Lab Order ordered on 08/30/2023 Patient Education Titles Cervical Arthritis?? What Is Syncope??? Depression: Tips to Help Yourself?? Depression?? Follow-Up Appointments Added Follow Up ?Time Frame ?Comments Vaibhav RAWLS, Alonzo?1 to 2 weeks Post Discharge Care Discharge ?08/31/23 15:49:00 EST Discharge Prescriptions ?ePrescribed, 08/31/23 15:49:00 EST Misc Durable Medical Equipment ?walker with wheels, See Instructions, # 1 each, Refills 0, Tot. Refills 0, Maintenance, Diagnosis: paresthesia in BLE fall risk, 08/31/23 12:56:00 EST, Supply Home Health Face to Face *Denotes mandatory garcia ?? *I certify that this patient is under my care and that I or an allowed non- physician working with me had a face to face encounter with the patient on this date:??08/31/2023 15:52 ?? *The encounter with the patient was in whole, or in part, for the following medical condition, which is the primary diagnosis(es) for home health care:??Left hemiplegia (G81.94) Left sided numbness (R20.0) Syncope (R55) GERD (gastroesophageal reflux disease) Hyperlipidemia [...] Therapy (select all that apply): [_] None [_x] Functional mobility training [_] Home exercise program to strengthen [_] Increase ROM?? [_x] Falls prevention training [_] Home maintenance program [...] [_] Limited weight bearing [_] Mental status change?Mary Lou Swanson mD *Physician Signature: _ ?? *By signing this, I certify that I have personally evaluated the patient and agree with the findings and recommendations as documented above. ? Results Discharge Labs BLOOD BANK Blood Type O Positive ()?? 08/30/2023 10:37 Antibody Screen Negative ()?? 08/30/2023 10:37 ?? BLOOD COUNT & DIFF WBC 11.1 k/mm3 (High)?? 08/30/2023 10:46 RBC 5.89 m/mm3 ()?? 08/30/2023 10:46 Hgb 16.2 Gm/dL ()?? 08/30/2023 10:46 Hct 51.7 % (High)?? 08/30/2023 10:46 MCV 87.8 femtoliters ()?? 08/30/2023 10:46 MCH 27.5 pg ()?? 08/30/2023 10:46 MCHC 31.3 g/dL (Low)?? 08/30/2023 10:46 Platelet Count 294 k/mm3 ()?? 08/30/2023 10:46 RDW-SD 46.5 femtoliters ()?? 08/30/2023 10:46 MPV 11.0 femtoliters ()?? 08/30/2023 10:46 Nucleated RBC (Automated) 0.0 #/100 WBC'S ()?? 08/30/2023 10:46 Abs. NRBC 0.0 k/mm3 ()?? 08/30/2023 10:46 Abs. Neut 8.4 k/mm3 (High)?? 08/30/2023 10:46 Abs. Lymph 2.0 k/mm3 ()?? 08/30/2023 10:46 Abs. [place] 0.4 k/mm3 ()?? 08/30/2023 10:46 Abs. Eo 0.1 k/mm3 ()?? 08/30/2023 10:46 Abs. Baso 0.0 k/mm3 ()?? 08/30/2023 10:46 Neut % 75.9 % ()?? 08/30/2023 10:46 Lymph % 17.8 % ()?? 08/30/2023 10:46 [place] % 3.9 % (Low)?? 08/30/2023 10:46 Eos % 0.9 % ()?? 08/30/2023 10:46 Baso % 0.3 % ()?? 08/30/2023 10:46 Imm Gran 1.2 % ()?? 08/30/2023 10:46 Abs. Imm Gran 0.1 k/mm3 ()?? 08/30/2023 10:46 ?? CARDIAC High Sensitivity Troponin (HSTnT) 7 ng/L ()?? 08/30/2023 12:55 ? CHEM GENERAL Sodium 136 mmol/L ()?? 08/30/2023 10:46 Potassium 4.6 mmol/L ()?? 08/30/2023 10:46 Chloride 97 mmol/L (Low)?? 08/30/2023 10:46 Bicarbonate Level 26 mmol/L ()?? 08/30/2023 10:46 Anion Gap 13 ()?? 08/30/2023 10:46 Glucose Level 149 mg/dL (High)?? 08/30/2023 10:46 Glucose, POC 85 mg/dL ()?? 08/31/2023 15:09 Hemoglobin A1C (Monitoring) 6.0 % (High)?? 08/30/2023 10:46 BUN 15 mg/dL ()?? 08/30/2023 10:46 Creatinine-Blood 0.8 mg/dL ()?? 08/30/2023 10:46 Estimated GFR Creatinine 107 ML/MIN/1.73 M2 ()?? 08/30/2023 10:46 Calcium 9.8 mg/dL ()?? 08/30/2023 10:46 AST (SGOT) 19 units/L ()?? 08/30/2023 10:46 ? COAG INR 1.0 ()?? 08/30/2023 10:46 Protime (PT) 10.7 seconds ()?? 08/30/2023 10:46 APTT 31.3 seconds ()?? 08/30/2023 10:46 ? ENDOCRINE/TUMOR MARKER TSH 1.02 uIU/mL ()?? 08/30/2023 10:46 ? LIPID STUDIES Cholesterol 217 mg/dL (High)?? 08/31/2023 02:26 Triglycerides 272 mg/dL (High)?? 08/31/2023 02:26 HDL Cholesterol 42 mg/dL ()?? 08/31/2023 02:26 LDL Cholesterol 121 mg/dL ()?? 08/31/2023 02:26 Non HDL Cholesterol 175 mg/dL (High)?? 08/31/2023 02:26 ? URINE OTHER Est Creatinine Clearance 94.89 mL/min ()?? 08/30/2023 11:51 ? 35_ minutes spent on discharge * Erik GOLDEN, Dacia: PERFORM, SIGN, VERIFY Event Display: Case Management Discharge Plan Authored Date: [id number] Patient: JJ OLIVIER Age: 52 years Sex: Male : 1970 Associated Diagnoses: None Author: Dacia Valencia RN Discharge Plan Case Management Discharge Plan : Case Management Discharge Plan Data 08/31/2023 12:41 EST Discharge Level of Care at Discharge Homehealth/VNA Discharge VNA/Hospice/Home Care [facility] [phone] Name of Agency #1 [facility] Agency Line Assigner # Service Categories #1 Physical Therapy Service Comments #1 A nurse will call in 1-2 days to arrange a visit * Luke GOLDEN, Doris: PERFORM, MODIFY Event Display: Patient Education/Instruction Authored Date: [id number] Inpatient Adult Discharge Instructions [address] [address] Name: JJ OLIVIER : 1970 Visit: 08/30/2023 08:54:00 Current Date: 08/31/2023 15:54 Account: [id number] Inpatient Adult Discharge Instructions We would like [...] and their families. Surveys are administered by [employer] ?? If further treatment with your primary care physician or another doctor is recommended, it is important for you to keep the appointment. Call your primary care physician or return to the Emergency Department immediately if your condition worsens, fails to improve, or new symptoms develop. If you need to find a doctor, you can call [facility] for a referral at [phone] or toll free at [phone] or log in to [email or web address].. ?? [facility], in keeping with [facility] guidance, no longer requires face masks for [...] a health care lenore of your choosing. [employer] is a website that allows you to securely view your medical information including your hospital discharge summary, office visit summaries, medications and follow-up visits. You can also request appointments, renew medications, and request access to your medical information using a health care lenore of your choosing, or just ask a question. You can enroll at [email or web address] or register during your next office visit. You have been discharged from [facility], Patient Care Unit: D3B. If you have any questions regarding these instructions after you leave, please call us and we will be happy to assist you. [facility] Your Care Team Attending Physician Sky RAWLS, Mary Lou Consulting Providers Percy RAWLS, James Discharging Providers Mary Lou Swanson MD Reason for Admission Potential stroke Your Diagnosis Syncope Left sided numbness Left hemiplegia Tests Performed Below is a partial list of the tests performed during your hospitalization. You may have had other tests and procedures not included in this list. Please discuss all test results with your provider. AST Basic Metabolic Panel CBC w/ Differential GLUCOSE POC HEMOGLOBIN A1C High??Sensitivity??Troponin T Lipid Panel PT (INR) PTT Troponin T, High Sensitivity TSH Type and Screen CT Angio Head Hyperacute Stroke CT Angio Neck Hyperacute Stroke CT Head-Hyper Acute Stroke MRI Brain W/O Contrast MRI Cervical Spine W/O Contrast XR Chest 2 Views Frontal and Lat Primary Care Provider Alonzo Esposito MD Advance Directive Health Care Proxy on File Yes - Health Care Proxy Discharge Vitals Temperature: 97.5 DegF Height: 165 cm Pulse Rate: 68 bpm Weight: 93 kg Respiratory Rate: 20 br/min Body Mass Index:??34.16 kg/m2??Critical Systolic Blood Pressure: 109 mm Hg Body surface area: 2.06 Diastolic Blood Pressure: 71 mm Hg ?? Oxygen Saturation: 98 % ?? Studies Pending All tests and labs ordered during this hospital stay have been completed unless listed below. Please discuss all pending results with your provider listed above in these instructions. ?? Add On Lab Order What to do next Instructions From Your Doctor Discharge Orders Scheduled Follow-Up Appointments Sunday 1:00 PM EST ?? With: Clint Puga MD Where: [address] [place] [address]- Status: Pending Sunday 2:00 PM EST ?? With: Alonzo Esposito MD Where: [facility] [address] [place] [address]- Status: Pending Sunday 9:00 AM EST ?? With: Alonzo Esposito MD Where: [facility] [address] [place] [address]- Status: Pending You Need to Schedule the Following Appointments Follow Up with??Alonzo Esposito MD When:??Within 1 to 2 weeks Where: ?? Discharge Medications JJ OLIVIER :1970 Visit Date:08/30/2023 Medications: Please continue your medications until treatment is completed or stopped by your provider. Medications not listed below should be discontinued. Discuss any questions related to medications with your provider. What How Much When Instructions Next Dose New Aspirin (aspirin 81 mg oral delayed release tablet) 81 Milligram Oral Daily Pickup at [facility]/pharmacy #[id number] 09/01/23 New Atorvastatin (atorvastatin 40 mg oral tablet) 1 tab(s) Oral Daily Duration: 30 Days Refills: 5 Pickup at [facility]/pharmacy #[id number] 08/31/23 at bedtime New Durable Medical Equipment (walker with wheels) See instructions Diagnosis: paresthesia in BLE fall risk ?? Printed Prescription New MethylPREDNISolone (Medrol Dosepak 4 mg oral tablet) 1 pack/packet Oral Daily Duration: 6 Days Refills: 5 as directed on package labeling ?? Pickup at [facility]/pharmacy #[id number] 08/31/23, as directed Unchanged Albuterol (Ventolin HFA 108 mcg/ inh inhalation aerosol with adapter) 2 puff(s) Inhalation 4 times a day as needed for NEEDED FOR WHEEZING Unchanged Diclofenac Topical (diclofenac 1% topical gel) 1 lenore Topically 4 times a day Unchanged Fluoxetine (FLUoxetine 20 mg oral capsule) TAKE 3 CAPSULES BY MOUTH EVERY DAY IN THE MORNING ?? 09/01/23 Unchanged Gabapentin (gabapentin 300 mg oral capsule) 1 capsule Oral Twice a day 08/31/23 after 9:00 pm Unchanged Nitroglycerin (nitroglycerin 0.4 mg sublingual tablet) 1 tab(s) Sublingual Every 5 minutes as needed for Chest Pain Unchanged Oxycodone (OxyCONTIN 15 mg oral tablet, extended release) 1 tab(s) Oral Every 12 hours Duration: 30 Days dx: M54.5 MassPAT checked; appropriate ?? Resume home schedule, you are not due for this until after 4:30 pm Unchanged Oxycodone / Acetaminophen (acetaminophen-oxycodone 325 mg-10 mg oral tablet) 1 tab(s) Oral Daily at Bedtime Duration: 30 Days mass pat verified ?? Unchanged Propranolol (propranolol 20 mg oral tablet) 2 tab(s) Oral Twice a day 08/31/23, at bedtime Unchanged Risperidone (risperiDONE 2 mg oral tablet) 2 tab(s) Oral Daily at Bedtime Rx'd ??by psychiatry ?? 08/31/23 at bedtime Unchanged Trazodone (traZODone 100 mg oral tablet) TAKE 1/ 2 TO 1 TABLET BY MOUTH AT BEDTIME ?? resume home schedule Pharmacy Information [facility]/pharmacy #[id number]: [address] [place], [place] [phone] Test Results Below is a partial list of the most recent Laboratory test results done prior to this discharge. You may have had other tests and procedures not included in this list. Please discuss all test resultswith your provider. Est Creatinine Clearance - 94.89 mL/min (08/30/2023) AST (08/30/2023) ???AST (SGOT) - 19 units/L Basic Metabolic Panel (08/30/2023) ???Sodium - 136 mmol/L???Potassium - 4.6 mmol/L???Chloride - 97 mmol/L???Bicarbonate Level - 26 mmol/L???Anion Gap - 13???Glucose Level - 149 mg/dL???BUN - 15 mg/dL???Creatinine-Blood - 0.8 mg/dL???Estimated GFR Creatinine - 107 ML/MIN/1.73 M2???Calcium - 9.8 mg/dL CBC w/ Differential (08/30/2023) ???WBC - 11.1 k/mm3???RBC - 5.89 m/mm3???Hgb - 16.2 Gm/dL???Hct - 51.7 %???MCV - 87.8 femtoliters???MCH - 27.5 pg???MCHC - 31.3 g/dL???Platelet Count - 294 k/mm3???RDW-SD - 46.5 femtoliters???MPV - 11.0 femtoliters???Nucleated RBC (Automated) - 0.0 #/100 WBC'S???Abs. NRBC - 0.0 k/mm3???Abs. Neut - 8.4 k/mm3???Abs. Lymph - 2.0 k/mm3???Abs. [place] - 0.4 k/mm3???Abs. Eo - 0.1 k/mm3???Abs. Baso - 0.0 k/mm3???Neut % - 75.9 %???Lymph % - 17.8 %???[place] % - 3.9 %???Eos % - 0.9 %???Baso % - 0.3 %???Imm Gran - 1.2 %???Abs. Imm Gran - 0.1 k/mm3 GLUCOSE POC (08/31/2023) ???Glucose, POC - 85 mg/dL HEMOGLOBIN A1C (08/30/2023) ???Hemoglobin A1C (Monitoring) - 6.0 % High??Sensitivity??Troponin T (08/30/2023) ???High Sensitivity Troponin (HSTnT) - 7 ng/L Lipid Panel (08/31/2023) ???Cholesterol - 217 mg/dL???Triglycerides - 272 mg/dL???HDL Cholesterol - 42 mg/dL???LDL Cholesterol - 121 mg/dL???Non HDL Cholesterol - 175 mg/dL PT (INR) (08/30/2023) ???INR - 1.0???Protime (PT) - 10.7 seconds PTT (08/30/2023) ???APTT - 31.3 seconds Troponin T, High Sensitivity (08/30/2023) ???High Sensitivity Troponin (HSTnT) - 7 ng/L TSH (08/30/2023) ???TSH - 1.02 uIU/mL Type and Screen (08/30/2023) ???Blood Type - O Positive???Antibody Screen - Negative Allergies (NKA means No Known Allergies) Shrimp lisinopril??(Angioedema) Problems Active Problems??(17) Cauda equina syndrome?? Chest pain?? Controlled substance agreement signed 05/29/2023?? Depression?? Diabetes?? Fatty infiltration of liver?? GERD (gastroesophageal reflux disease)?? Health [facility], active care coordination [facility] [phone]?? HTN (hypertension)?? Hyperlipidemia?? Illiteracy?? Lower back pain?? Lumbar radiculopathy?? Obese class I?? Obstructive sleep apnea?? Psychotic disorder?? Tubular adenoma of colon?? Education Materials Below is the list of Educational Leaflet Providered with your Discharge Instructions. Cervical Arthritis?? What Is Syncope??? Depression: Tips to Help Yourself?? Depression?? Valuables and Belongings I fully understand and agree that [facility] accepts no responsibility for all my personal [...] patient Date for Pt to Sign Valuables/Belongings: 08/30/23 14:13:00 ?? Other Discharge Information ? Case Management Discharge Plan?? Discharge Plan?? Discharge Agency Information?? Discharge Level of Care at Discharge: Homehealth/VNA Name of Agency #1: [facility] Discharge VNA/Hospice/Home Care: [facility] [phone] Agency Line Assigner #1: [phone] ?? Service Categories #1: Physical Therapy ?? Service Comments #1: A nurse will call in 1-2 days to arrange a visit ?? Pulmonary Rehab Status?? Pulmonary Rehab Discharge Status?? CPAP/BiPAP Mask Type: Full CPAP/BiPAP Mask Size: Large Respiratory Rate: 20 br/min ? Common Emergency Awareness Tips IS [...] are strongly encouraged to quit. Please call [facility] at [phone] or [phone] ([phone]) or log in to [email or web address] for referrals to smoking cessation programs. ?? 017 Suicide & Crisis Lifeline is available 07/05 if you or someone you know needs to find a reason to keep living. By calling 327 you'll be connected to a skilled, trained counselor at a crisis center in your area. INPATIENT DISCHARGE INSTRUCTIONS SIGNATURE PAGE JJ OLIVIER Location:[facility] Registration Date and Time:08/30/2023 08:54 EST Primary Care Physician: Alonzo Esposito MD, Attending Physician: Mary Lou Swanson MD, Crystal OLIVIER JJ, have received the above patient education materials/instructions and have verbalized understanding. If ambulance or transport services are being used I further acknowledge being given a choice of service. ?? If you need to contact me, please call me at this number: . Patient/Package Car Driver Name: Patient/Package Car Driver Signature: Relationship to Patient: Witness Name/Signature: Date: * Doris Butler RN: PERFORM Event Display: Patient Education Leaflets Authored Date: [id number] Possible Causes of Dizziness or Fainting ?? 73156 Possible Causes of Dizziness or Fainting Dizziness and fainting can have many causes. Below are some examples of??possible causes your healthcare provider will look to rule out. Benign paroxysmal positional vertigo (BPPV) BPPV results when calcium crystals inside the inner ear shift into the wrong position. BPPV causes episodes of vertigo, a spinning sensation. Episodes most often happen when you move your head in a certain way. This is more common in people age 65 and older.? Infection or inflammation The semicircular canals of the inner ear are 3 tiny tubes that loop in 3 different directions. As fluid moves in the tubes, signals are sent to the brain that help you maintain balance. These semicircular canals may become infected or inflamed. In this case, they can send the wrong balance signals.This can cause vertigo. ?? M??ni??re disease M??ni??re disease happens when there is too much fluid in the semicircular canals. This can cause vertigo. It also can cause hearing problems and buzzing or ringing in the ears (called tinnitus). Youmay also have a feeling of pressure or fullness in the ear. ?? Syncope Syncope is fainting that happens when the brain doesn???t get enough oxygen-rich blood. It can be caused by low heart rate or low blood pressure. If this occurs as part of a fear or anxiety response,it is called vasovagal syncope. It can also be caused by sitting or standing up too quickly. This is called orthostatic hypotension. Syncope may also be due to a heart valve problem, an abnormal heart rhythm, or other problems with your heart, lungs, or blood vessels. ?? Other causes Other causes include: ??? Problems with the brain. These include a stroke or bleeding (hemorrhage) in the brain. You may need certain tests to rule out these conditions. ??? Medicines. Certain medicines can cause dizziness and even fainting. In some cases, stopping a medicine too quickly can lead to withdrawal symptoms,including dizziness and fainting. ??? Anxiety. Being anxious can lead to breathing changes, such ashyperventilation. These can lead to dizziness and fainting. Other causes for dizziness and fainting also exist.??Talk with your provider for more information. ? Last Reviewed Date: 2021 ?? The [employer]. All rights reserved. This information is not intended as a substitute for professional medical care. Always follow your healthcare professional's instructions. ?? * Mary Lou Swanson MD: PERFORM Event Display: Patient Education Leaflets Authored Date: [id number] Cervical Arthritis ?? Cervical Arthritis - Video Cervical arthritis means arthritis of the neck bones. Your neck has 7 vertebrae, and cushiony diskssit between the vertebrae. Over time or with injury, the disks can have problems and may bulge outward or get thinner. To view the video go to this web address: https://bit.[email or web address] Or, scan this QR code with your smart phone Last Reviewed Date: 2020 ?? [employer]. All rights reserved. This information is not intended as a substitute for professional medical care. Always follow your healthcare professional's instructions. ?? * Mary Lou Swanson MD: PERFORM Event Display: Patient Education Leaflets Authored Date: [id number] What Is Syncope? ?? 15074 What Is Syncope? Syncope is also known as fainting or a blackout. It's an abrupt and short-term loss of consciousness and motor tone. It's often caused by a sudden drop in blood flow to the brain or a lack of oxygen to the brain. It's then followed by complete and often rapid spontaneous recovery. The heart pumps blood nonstop to the brain and the rest of the body. Understanding heart rate and blood pressure changes Your brain and body need a steady flow of oxygen-rich blood. Your heart rate and blood pressure change to keep that flow steady throughout all your activities. ??? The heart makes electrical signals that move through it on pathways. These signals set the heart rate. They also tell the heart when topump blood. ??? In response to your body???s needs, your brain may also trigger changes in your heart rate and blood pressure. Sensors in the body detect the amount of blood flow going to the brain and other parts of the body. If these sensors detect low blood flow, they signal the body to increasethe amount of fluid in the blood vessels??and increase the heart rate to provide more circulation. ??? The blood leaving the heart with each contraction supplies oxygen and nutrients as it flows in your brain. ?? Warning signs Syncope often happens suddenly. Warning signs include: ??? Dimmed, blackened, or tunnel vision ??? Lightheadedness ??? Sleepiness ??? Rapid heartbeat Some people may also feel nauseated or sweaty. But you may have no warning signs at all. After syncope, you get better quickly. But you may feel tired. Don't drive if you are having warning signs that you may faint. ?? Is it serious? Syncope is a common problem with many possible causes. Often these causes are not serious. For instance, syncope can be caused by standing for too long or sitting up too fast. In some cases, you may never faint again. But if you have syncope with a heart problem, it can be a warning sign of a more serious problem. For this reason, your healthcare provider may order several tests to look at heart function and rhythm. If you have had syncope, talk with your healthcare provider. In older adults, syncope may be a sign that a heart attack has happened. Don't delay seeking treatment. Even if the cause of syncope is not serious, there is a risk of injury from falling when you lose consciousness. When possible, finding a cause can reduce this risk. ?? Last Reviewed Date: 2021 ?? The [employer]. All rights reserved. This information is not [...] Carmen Gao RN Position: [facility] ED RN W/OE and Tasks Member Role: Primary Care Nurse Name: Dacia Evangelista RN Position: [facility] RN Member Role: Primary Care Nurse Name: Tracey Linares RN Position: [facility] AMB Nurse Member Role: Primary Care Nurse Name: Italia Ortega RN Position: [facility] RN Member Role: Primary Care Nurse Name: Catalina He RN Position: [facility] Nurse Member Role: Primary Care Nurse Name: Jessica Lantigua RN Position: [facility] RN Member Role: Primary Care Nurse Name: Catalina Pack RN Position: [facility] RN Member Role: Primary Care Nurse Name: Clifford Gerber RN Position: [facility] RN Member Role: Primary Care Nurse Name: Doris Butler RN Position: [facility] RN Member [...] Care Nurse Name: Daphney Echols LPN Position: [facility] RN Member Role: Primary Care Nurse Name: Jennifer Thakkar RN Position: [facility] RN Member [...] Rodriguez RN Position: [facility] RN Vikram Member Role: Primary Care Nurse Name: Ophelia Marie RN Position: [facility] RN Member Role: Primary Care Nurse Name: Nolvia Mendes RN Position: [facility] RN Member Role: Primary Care Nurse Name: Adi Rees RN Position: [facility] RN Member Role: Primary Care Nurse Name: Alonzo Esposito MD Position: [facility] Physician - Primary Care Member Role: PCP Address: Address: [address] [place] [address]- [place] Name: Doroteo Villa RN Position: [facility] RN Member Role: Primary Care Nurse Address: Address: [address] [place] [address]- Name: Cassidy Masters RN Position: [facility] RN Member Role: Primary Care Nurse Name: Juancarlos Valente RN Position: [facility] Hospital Kids [employer] Attendant Member Role: Primary Care Nurse Name: Noel BLACKBURN Attending Position: [facility] ED Medicine MD Name: Amauri [place] Position: [facility] ED TA [facility] Member Role: Men'S Garment Fitter Name: Ainsley Mahoney RN Position: [facility] ED RN W/OE and Tasks Member Role: Patient Care Provider Name: Clifford Jose Position: [facility] Resident Member Role: ED Resident Address: Address: [address] [place] [address]- Care Team Related Persons Name: CIELO OLIVIERTZA Address: home [address] [place] [address] Name: GAGE HUNT Address: [address] [address] Name: JOCELYN HUNT Address: [place] [id number]
--- OUTSIDE RECORDS SUMMARY | 2024-05-24 04:35 | XMS_ITS | Continuity of Care Document ---
Author Organization [facility] Address [address] [place] [address]- Care Team Providers Care Vest Busheler Name Role Phone Dawna Hernandez MD Primary Care Physician Encounter [facility] Date(s): 12/05/22 - 01/04/[address] [address] Allergies, Adverse Reactions, Alerts Substance Reaction Severity Status lisinopril Angioedema Active Shrimp Active Immunizations Given and Recorded Vaccine Date Status Refusal Reason [id number] 12y+ bivalent booster vax 11/03/22 Given influenza virus vaccine, inactivated 11/03/22 Give n influenza virus vaccine, inactivated 02/15/22 Give n influenza virus vaccine, inactivated 09/01/20 Give n influenza virus vaccine, inactivated 09/15/19 Give n influenza virus vaccine, inactivated 11/19/18 Give n influenza virus vaccine, inactivated 09/10/17 Give n influenza virus vaccine, inactivated 12/06/15 Give n SARS-CoV-2 mRNA ([id number]) vax 01/26/22 Given SARS-CoV-2 mRNA ([id number]) vax 12/28/21 Given tetanus/diphtheria/pertussis, acel(Tdap) 03/29/19 Given [...] 3 Refills, Maintenance, 05/11/22 14:22:00 EDT, Tablet, [facility]/pharmacy #[id number], Partial fill upon [...] tablet, 1 Refills, Maintenance, 04/05/22 7:53:00 EDT, [facility]/pharmacy #[id number], 165, cm, 02/15/22 10:35:00 EDT, Height, 90.7, kg, 02/06/22 19:49:00 EDT, Dry Weight Start Date: 04/05/22 Status: Ordered Colace sodium 100 mg oral capsule 100 mg, 1, capsule, By Mouth, 2 times a day, PRN, # 20 capsule, Refills 0, Tot. Refills 0, Maintenance, for constipation, 09/22/22 9:53:00 EST, Route to Pharmacy Electronically, [facility]/pharmacy [...] 0 Refills, Maintenance, 01/04/23 12:39:00 EDT, Tablet, [facility]/pharmacy #[id number], Partial fill upon patient request if the [...] tablet, 11 Refills, Maintenance, 06/15/22 17:40:00EDT, Tablet, [facility]/pharmacy #[id number], Partial fill upon patient request if the prescription is for a schedule II opioid drug., 165, cm, 06/15/22 14:29:00 ED... Start Date: 06/15/22 Status: Ordered ibuprofen 600 mg oral tablet 600 mg, 1, tablet, By Mouth, 3 times a day, # 90 tablet, Refills 0, Tot. Refills 0, Maintenance, 09/06/22 21:10:00 EST, Route to Pharmacy Electronically, [facility]/pharmacy #[id number], Partial fill upon patientrequest [...] Refills, Maintenance, 07/20/22 15:26:00 EDT, [facility], 10, APPLY 1 PATCH DAILY NEEDED FOR MODERATE PAIN..REMOVE AFTER 12... Start Date: 07/20/22 Status: Ordered nitroglycerin 0.4 mg sublingual tablet 1 tablet = 0.4 mg, Sublingual, Every 5 minutes, PRN Chest Pain, # 100 tablet, 0 Refills, Maintenance, 11/06/22 13:52:00 EST, Tablet, [facility]/pharmacy #[id number], Partial fill upon patient request if the prescription is for a schedule II opioid drug., 175, cm,... Start Date: 11/06/22 Status: Ordered omeprazole 20 mg oral enteric coated capsule 1 capsule = 20 mg, By Mouth, Daily, # 30 capsule, 1 Refills, Maintenance, 01/04/23 12:40:00 EDT, ECCapsule, [facility]/pharmacy #[id number], Partial fill upon [...] Refills, Maintenance, 12/01/22 12:02:00 EST, ER Tablet, [facility]/pharmacy #[id number], Partial fill upon [...] tablet, Refills 5, Route to Pharmacy Electronically, [id number], 166, cm, 12/28/21 10:33:00 EDT, Height, 91.9, [...] EST, Supply Start Date: 12/12/22 Status: Ordered Cartoon Designer Cartoon Designer, See Instructions, # 1 each, Refills 0, [...] Refills, Maintenance, 12/12/22 12:14:00 EST, [id number], 175, cm, 11/15/22 9:07:00 EST, Height, 88.2, [...] Active Obstructive sleep apnea Confirmed Active Health intermediate, active care coordination PADMINI Mata [phone] Confirmed Active Fatty infiltration of liver Confirmed Active Tubular adenoma of colon Confirmed Active 1history of this with surgical correction Social History Social History Type Response Smoking Status Former smoker; Other : Quit 2014; entered on: 09/10/17 Sex Patient Care team information Care Team Personnel Name: Macarnea Lewis RN Position: [facility] RN Member Role: Primary Care Nurse Name: Mallory Lugo RN Position: [facility] RN Member Role: Primary Care Nurse Name: Carmen Gao RN Position: [facility] RN Member Role: Primary Care Nurse Name: Dacia Evangelista RN Position: [facility] RN Member Role: Primary Care Nurse Name: Tracey Linares RN Position: [facility] PCO RN Member Role: Primary Care [...] Care Nurse Name: Peter Monahan RN Position: [facility] RN Member Role: Primary Care Nurse Name: Aziza Poole RN Position: [facility] RN Member Role: Primary Care Nurse Name: Monet Miller RN Position: [facility] RN Member Role: Primary Care Nurse Name: Katheryn Wu RN Position: [facility] RN Member Role: Primary Care Nurse Name: Doris Dee RN Position: [facility] RN Member Role: Primary Care Nurse Name: Janae Soto RN Position: [facility] RN Member Role: Primary Care Nurse Name: Hyun Ochoa RN Position: [facility] RN Member Role: Primary Care Nurse Name: Nancy Magana RN Position: [facility] RN [...] RN Position: [facility] RN Suptasha Member Role: Primary Care Nurse Name: Ophelia Marie RN Position: [facility] RN Member Role: Primary Care Nurse Name: Nolvia Mendes RN Position: [facility] RN Member Role: Primary Care Nurse Name: Adi Rees RN Position: [facility] RN Member Role: Primary Care Nurse Name: Catalina Torres RN Position: [facility] RN Member Role: Primary Care Nurse Name: Doroteo Morrow RN Position: [facility] RN Member Role: Primary Care Nurse Address: Address: [address] [place] [address]- Name: Cassidy Masters RN Position: [facility] RN Member Role: Primary Care Nurse Name: Juancarlos Valente RN Position: [facility] Hospital Wheel Filler Member Role: Primary Care Nurse Name: Dawna Hernandez MD Position: [facility] Primary Care Physician Member Role: PCP Address: Address: [address] [place] [address]- Care Team Related Persons Name: BARBOSA SYLVIA Address: [address] [place] [address] Name: GAGE HUNT Address: [address] [place] [address] Name: JOCELYN HUNT Address: [address] [place] [address]
--- OUTSIDE RECORDS SUMMARY | 2024-05-24 04:35 | XMS_ITS | Continuity of Care Document ---
Author Organization [facility] Address [address] [place] [address]- Care Team Providers Care Parking Assistant Name Role Phone Dawna Hernandez MD Primary Care Physician Encounter [facility] Date(s): 09/21/22 - 09/22/[address] [address]- Encounter Diagnosis Back pain(Final) - 09/22/22 Discharge Disposition: A-D/C Walkout Attending Physician: Not [...] vaccine, inactivated 12/06/15 Give n SARS-CoV-2 mRNA (zhyvuar-pmyd-tlkyt) vax 01/26/22 Given SARS-CoV-2 mRNA (fewwaiz-wvyz-bhaes) vax 12/28/21 Given tetanus/diphtheria/pertussis, acel(Tdap) 03/29/19 Given tetanus/diphtheria/pertussis, acel(Tdap) 09/10/17 Given pneumococcal 23-valent vaccine 04/08/18 Recorded pneumococcal 23-valent vaccine 04/22/17 Recorded pneumococcal 23-valent vaccine 12/21/12 Given Medications albuterol CFC free 90 mcg/inh inhalation aerosol 2, puffs, Inhalation, Every 6 hours, PRN, # 1 each, Refills 6, Tot. Refills 6, Maintenance, 08/07/22 17:48:00 EDT, Aerosol, Route to Pharmacy Electronically, [id number], [facility]/pharmacy #[id number], 165, cm, 08/02/22 5:50:00 EDT, Heig... [...] 3 Refills, Maintenance, 05/11/22 14:22:00 EDT, Tablet, [facility]/pharmacy #[id number], Partial fill upon patient request if [...] tablet, 1 Refills, Maintenance, 04/05/22 7:53:00 EDT, [facility]/pharmacy #[id number], 165, cm, 02/15/22 10:35:00 EDT, Height, 90.7, kg, 02/06/22 19:49:00 EDT, Dry Weight Start Date: 04/05/22 Status: Ordered Colace sodium 100 mg oral capsule 100 mg, 1, capsule, By Mouth, 2 times a day, PRN, # 20 capsule, Refills 0, Tot. Refills 0, Maintenance, for constipation, 09/22/22 9:53:00 EST, Route to Pharmacy Electronically, [facility]/pharmacy #[id number], Partial fill upon patient request if [...] tablet, 11 Refills, Maintenance, 06/15/22 17:40:00EDT, Tablet, [facility]/pharmacy #[id number], Partial fill upon patient request if the prescription is for a schedule II opioid drug., 165, cm, 06/15/22 14:29:00 ED... Start Date: 06/15/22 Status: Ordered ibuprofen 600 mg oral tablet 600 mg, 1, tablet, By Mouth, 3 times a day, # 90 tablet, Refills 0, Tot. Refills 0, Maintenance, 09/06/22 21:10:00 EST, Route to Pharmacy Electronically, [facility]/pharmacy #[id number], Partial fill upon patientrequest if the [...] patch, 0 Refills, Maintenance, 07/20/22 15:26:00 EDT, [facility] STORE [id number], 10, APPLY 1 PATCH DAILY NEEDED FOR MODERATE PAIN..REMOVE AFTER 12... Start Date: 07/20/22 Status: Ordered oxyCODONE 15 mg oral tablet 1 tablet = 15 mg, By Mouth, Every 6 hours, for 28 days, [facility] checked, # 112 tablet, 0 Refills, Acute 10/04/22 12:00:00 EST, 09/06/22 12:00:00 EST, [facility]/pharmacy #[id number], Partial fill upon patient request if the prescription is for a schedule II opioid... Start Date: 09/06/22 Stop Date: 10/04/22 Status: Ordered oxyCODONE 5 mg oral tablet 5 mg, 1, tablet, By Mouth, Every 6 hours, PRN, # 12 tablet, Refills 0, Tot. Refills 0, Acute 09/23/22 9:53:00 EST, as needed for pain, 09/22/22 9:53:00 EST, Route to Pharmacy Electronically, [facility]/pharmacy #[id number], Partial fill upon patient request if the... Start Date: 09/22/22 Stop Date: 09/23/22 Status: Ordered PAP Supplies - Mask, Tubing, [...] tablet, Refills 5, Route to Pharmacy Electronically, [id number], 166, cm, 12/28/21 10:33:00 EDT, Height, 91.9, [...] 0 Refills, Maintenance, 08/18/22 22:09:00 EDT, Aerosol, [facility]/pharmacy #[id number], Partial fill upon patient request [...] Confirmed Active Health assisted, active care coordination Netta Nancy [facility] [phone] Confirmed Active Fatty infiltration of liver Confirmed Active Tubular adenoma of colon Confirmed Active Results Radiology Reports * Exam Date Time Procedure Performing Provider Status 09/21/22 5:44 PM MRI Lumbar Spine W/O Contrast Carmen , Laura ; Auth (Verified) Notes: (MRI Lumbar Spine W/O Contrast) Reason For Exam: Cauda Equina Syndrome RESULT: MRI Lumbar Spine W/O Contrast MRI Lumbar Spine W/O Contrast INDICATION: Refer to EMR; Hx of Present Illness: pt seen at ED last night for worsening back pain and numbness tingling in bilateral lower extremities and burning sensation, worse in the R compared to L. pt also endorses 3 episodes of urinary incontinence. needs MRI per PCP; Reason: Cauda Equina Syndrome; Clinical Question(s): Cord Cauda Equina Compression; Order Comment: Please see Reference Text for complet Cord/Cauda Equina Compression TECHNIQUE: MRI of the lumbar spine was performed without intravenous contrast utilizing sagittal T1, sagittal T2, sagittal STIR, axial T1, and axial T2- weighted sequences. COMPARISON: Lumbar spine MRI 08/02/2022. FINDINGS: NUMBERING: The study assumes 5 ebg-vzg-pmrrvzj lumbar type vertebral bodies. ALIGNMENT, VERTEBRAE, MARROW, AND DISCS: Alignment is normal. Vertebral body heights are preserved.Mild diffuse disc desiccation is again demonstrated, sparing the L1-L2 level. There are multilevel endplate osteophytes and there are again Modic type II signal changes at L5-S1. Hemangioma noted at L3. Nonspecific T1 hypointense and STIR hyperintense focus at L4 is unchanged. CONUS: The conus is normal in signal and contour, with normal level of termination at L1-L2. PARASPINAL TISSUES: The paraspinal soft tissues are unremarkable. Right renal cyst. DETAILED FINDINGS BY LEVEL: L1-L2: No significant canal stenosis or neural foraminal narrowing. L2-L3: Minimal disc bulge, facet spurring, and prominent dorsal epidural fat. No significant canal stenosis. Mild bilateral neural foraminal narrowing, similar to prior. L3-L4: Diffuse disc bulge with superimposed right foraminal protrusion and annular fissure, ligament flavum thickening, facet spurring, and prominent dorsal epidural fat. No significant canal stenosis. There is again moderate to severe right neural foraminal narrowing with disc material contacting the exiting right L3 nerve root, and there is again mild to moderate left neural foraminal narrowing. These findings are not significantly changed. L4-L5: Diffuse disc bulge, ligamentum flavum thickening, and facet arthropathy (left greater than right) lower prominent dorsal epidural fat resulting in moderate spinal canal stenosis and moderate to severe bilateral neural foraminal stenosis. Left lateral annular fissure noted. Findings are similar to the previous exam. L5-S1: There is a right laminotomy defect. Disc osteophyte complex asymmetric towards the right andfacet spurring again demonstrated without significant canal stenosis. T1 isointense tissue extends to surround the traversing right S1 nerve root, previously shown to represent granulation/scar tissue. This is grossly similar to the previous exam. There is mild to moderate left and severe right neural foraminal narrowing likely compression of the exiting right L5 nerve root. Findings are not significantly changed. IMPRESSION: Postsurgical and degenerative changes in the lumbar spine as described above, similar to the previous exam. No evidence of cauda equina compression. Major findings are in agreement with the preliminary report provided by [facility]. There are differenceswith respect to the degree of reported stenoses on the preliminary report, but the findings are unchanged compared to 08/02/2022. WSN: [id number] Ordering Physician: Duke Gilliland Dictated By: Rosi Hernandez MD Dictated Date/Time: 09/22/22 9:02 am Reviewed By: Rosi Hernandez MD Signed By: Rosi Hernandez MD Signed Date/Time: 09/22/22 9:02 am Transcribed By: HARPAL Transcribed Date/Time: 09/22/22 8:48 am Vital Signs Most recent to oldest [Reference Range]: 1 2 3 Oxygen Saturation [94-100 %] 100 % (09/22/22 9:49 AM) 99 % (09/22/22 8:48 AM) 100 % (09/22/22 4:17 AM) Pulse Rate [55-90 bpm] 76 bpm (09/22/22 9:49 AM) 76 bpm (09/22/22 8:48 AM) 74 bpm (09/22/22 4:17 AM) Blood Pressure [90-138/55-84 mm Hg] 137/90mm Hg (09/22/22 9:49 AM) 137/90mm Hg (09/22/22 8:48 AM) 129/74mm Hg (09/22/22 4:17 AM) Respiratory Rate [16-30 br/min] 18 br/min (09/21/22 4:11 PM) Temperature [96.8-100.4 DegF] 98.1 DegF (09/22/22 9:49 AM) 98.1 DegF (09/22/22 8:48 AM) 97.8 DegF (09/22/22 4:17 AM) Mode of Delivery (Oxygen) Room air (09/22/22 9:49 AM) Room air (09/22/22 8:48 AM) Room air (09/22/22 4:17 AM) Blood pressure sites Arm, left (09/22/22 9:49 AM) Arm, right (09/22/22 8:48 AM) Arm, left (09/22/22 4:17 AM) Temperature Route Oral (09/22/22 9:49 AM) Oral (09/22/22 8:48 AM) Oral (09/22/22 4:17 AM) Social History Social History Type Response Smoking Status Former smoker; Other : Quit 2014; entered on: 09/10/17 Sex Note * Maikel Tillman MD: PERFORM Event Display: Patient Education Leaflets Authored Date: [id number] Back Care Tips ?? [id number] Back Care Tips Caring for your back [...] taking other medicines. ??? You may use ebtu-wcz-uytbdnw medicines, such as acetaminophen, ibuprofen, or naproxen [...] right knee. ??? Do 10 of these exer cises for each leg. ?? Safe lifting method [...] area ?? Last Reviewed Date: 2022 ?? [id number] [employer]. All rights reserved. This information is not intended as a substitute for professional medical care. Always follow your healthcare professional's instructions. ?? * Maikel Tillman MD: PERFORM Event Display: Patient Education Leaflets Authored Date: [id number] General Neck and Back Pain ?? [id number] General Neck and Back Pain Both neck and back pain are usually caused by injury to the muscles or ligaments of the spine. Sometimes the disks that separate each bone of the spine may cause pain by pressing on a nearby nerve. Back and neck pain may appear after a sudden twisting or bending force (such as in a car accident), or sometimes after a simple awkward movement. In either case, muscle spasm is often present and adds to the pain. Acute neck and back pain usually gets better in 1 to 2 weeks. Pain related to disk disease, arthritis in the spinal joints, or narrowing of the spinal canal (spinal stenosis) can become chronic and last for months or years. Back and neck pain are common problems. Most people feel better in 1 or 2 weeks, and most of the rest in 1 to 2 months. Most people can stay active. People have and??describe pain differently. ??? Pain can be sharp, stabbing, shooting, aching, cramping, or burning. ??? Movement, standing, bending, lifting, sitting, or walking may worsen the pain. ??? Pain can be limited to 1 spot or area, or it can be more generalized. ??? Pain can spread upward, downward, to the front, or go down your arms or legs. ??? Muscle spasm may occur. Most of the time, mechanical problems with the muscles or spine cause the pain. It's usually causedby an injury, whether known or not, to the muscles or ligaments. Pain without an injury is not common. But it can sometimes be caused by a health problem such as kidney stones or an infection. Pain is usually related to physical activity such as sports, exercise, work, or normal activity. Sometimesit can occur without an identifiable cause. This can happen simply by stretching or moving wrong, without noting pain at the time. Other causes include: ??? Overexertion, lifting, pushing, pulling incorrectly or too aggressively. ??? Sudden twisting, bending or stretching from an accident (car or fall), or accidental movement. ??? Poor posture ??? Poor conditioning, lack of regular exercise ??? Spinal disc disease or arthritis ??? Stress ??? , or illness like appendicitis, bladder or kidney infection, pelvic infections ??Home care ??? For??neck pain:??Use a comfortable pillow that supports the head and keeps the spine in a neutral position. The position of the head should not be tilted forward or backward. ??? Whenin bed, try to find a comfortable position. A firm mattress is best. Try lying flat on your back with pillows under your knees. You can also try lying on your side with your knees bent up toward yourchest and a pillow between your knees. ??? At first, don't try to stretch out the sore spots. If there's a strain, it's not like the good soreness you get after exercising without an injury. In this case, stretching may make it worse. ??? Don't sit for long periods, as in??long car rides or??other travel. This puts more stress on the low back than standing or walking. ??? During the first 24 to 72 hours after an injury, apply an ice pack to the painful area for 20 minutes and then remove it for20 minutes over a period of 60 to 90 minutes or several times a day.? You can alternate ice and heat therapies. Talk with your healthcare provider about the best treatment for your back or neck pain. As a safety measure, don't use a heating pad at bedtime. Sleeping with a heating pad can lead to skin doty or tissue damage. ??? Therapeutic massage can help relax the back and neck muscles without stretching them. ??? Be aware of safe lifting methods. Don't lift anything over 15 pounds untilall the pain is gone. ?? Medicines Talk to your healthcare provider before using medicine, especially if you have other health problems or are taking other medicines. ??? You may use ghcg-tds-yewquob medicine to control pain, unless another pain medicine was prescribed. Talk with your provider first if you have chronic conditions like diabetes, liver or kidney disease, stomach ulcers, gastrointestinal bleeding, or are taking bloodthinner medicines. ??? Be careful if you're given pain medicines, narcotics, or medicine for musclespasm. They can cause drowsiness. It can affect your coordination, reflexes, and judgment. Don't drive or operate heavy machinery. ?? Follow-up care Follow up with your healthcare provider as advised. You may need physical therapy or more tests. If X-rays were taken, you'll be told of any new findings that may affect your care. ?? Call 911 Call 911 if any of these occur: ??? Trouble breathing ??? Confusion ??? Very drowsy or trouble waking up ??? Fainting or loss of consciousness ??? Very fast or very slow heart rate ??? Loss of bowel or bladder control ?? When to get medical advice Call your healthcare provider right away if any of these occur: ??? Pain gets worse or spreads intoyour arms or legs ??? Weakness, numbness, or pain in 1 or both arms or legs ??? You have changes inbowel or bladder function ??? Numbness in the groin area ??? Trouble walking ??? Fever of 100.4??F (38??C) or higher, or as advised by your provider ?? Last Reviewed Date: 2022 ?? [id number] [employer]. All rights reserved. This information is not intended as a substitute for professional medical care. Always follow your healthcare professional's instructions. ?? MR Lumbar spine WO contrast * [facility] , CIS S: TRANSCRIELVIS Hernandez MD, Rosi N: VERIFY Event Display: Result: Authored Date: MRI Lumbar Spine W/O Contrast INDICATION: Refer to EMR; Hx of Present Illness: pt seen at ED last night for worsening back pain and numbness tingling in bilateral lower extremities and burning sensation, worse in the R compared to L. pt also endorses 3 episodes of urinary incontinence. needs MRI per PCP; Reason: Cauda Equina Syndrome; Clinical Question(s): Cord Cauda Equina Compression; Order Comment: Please see Reference Text for complet Cord/Cauda Equina Compression TECHNIQUE: MRI of the lumbar spine was performed without intravenous contrast utilizing sagittal T1, sagittal T2, sagittal STIR, axial T1, and axial T2- weighted sequences. COMPARISON: Lumbar spine MRI 08/02/2022. FINDINGS: NUMBERING: The study assumes 5 fuf-wsy-jvcwlrq lumbar type vertebral bodies. ALIGNMENT, VERTEBRAE, MARROW, AND DISCS: Alignment is normal. Vertebral body heights are preserved.Mild diffuse disc desiccation is again demonstrated, sparing the L1-L2 level. There are multilevel endplate osteophytes and there are again Modic type II signal changes at L5-S1. Hemangioma noted at L3. Nonspecific T1 hypointense and STIR hyperintense focus at L4 is unchanged. CONUS: The conus is normal in signal and contour, with normal level of termination at L1-L2. PARASPINAL TISSUES: The paraspinal soft tissues are unremarkable. Right renal cyst. DETAILED FINDINGS BY LEVEL: L1-L2: No significant canal stenosis or neural foraminal narrowing. L2-L3: Minimal disc bulge, facet spurring, and prominent dorsal epidural fat. No significant canal stenosis. Mild bilateral neural foraminal narrowing, similar to prior. L3-L4: Diffuse disc bulge with superimposed right foraminal protrusion and annular fissure, ligament flavum thickening, facet spurring, and prominent dorsal epidural fat. No significant canal stenosis. There is again moderate to severe right neural foraminal narrowing with disc material contacting the exiting right L3 nerve root, and there is again mild to moderate left neural foraminal narrowing. These findings are not significantly changed. L4-L5: Diffuse disc bulge, ligamentum flavum thickening, and facet arthropathy (left greater than right) lower prominent dorsal epidural fat resulting in moderate spinal canal stenosis and moderate to severe bilateral neural foraminal stenosis. Left lateral annular fissure noted. Findings are similar to the previous exam. L5-S1: There is a right laminotomy defect. Disc osteophyte complex asymmetric towards the right andfacet spurring again demonstrated without significant canal stenosis. T1 isointense tissue extends to surround the traversing right S1 nerve root, previously shown to represent granulation/scar tissue. This is grossly similar to the previous exam. There is mild to moderate left and severe right neural foraminal narrowing likely compression of the exiting right L5 nerve root. Findings are not significantly changed. IMPRESSION: Postsurgical and degenerative changes in the lumbar spine as described above, similar to the previous exam. No evidence of cauda equina compression. Major findings are in agreement with the preliminary report provided by [facility]. There are differenceswith respect to the degree of reported stenoses on the preliminary report, but the findings are unchanged compared to 08/02/2022. WSN: [id number] Ordering Physician: Duke Gilliland Dictated By: Rosi Hernandez MD Dictated Date/Time: 09/22/22 9:02 am Reviewed By: Rosi Hernandez MD Signed By: Rosi Hernandez MD Signed Date/Time: 09/22/22 9:02 am Transcribed By: HARPAL Transcribed Date/Time: 09/22/22 8:48 am Patient Care team information Care Team Personnel Name: Macarena Lewis RN Position: [facility] RN Member Role: Primary Care Nurse Name: Mallory Lugo RN Position: [facility] RN Member Role: Primary Care Nurse Name: Carmen Gao RN Position: S RN Member Role: Primary Care Nurse Name: Dacia Evangelista RN Position: S RN Member Role: Primary Care Nurse Name: Tracey Linares RN Position: [facility] RN Member Role: Primary Care Nurse Name: Italia Ortega RN Position: S RN Member Role: Primary Care Nurse Name: Catalina He RN Position: [facility] RN Member Role: Primary Care Nurse Name: Cortez Golden RN Position: S RN Member Role: Primary Care Nurse Name: Jessica Lantigua RN Position: [facility] SN RN Member Role: Primary Care Nurse Name: Clifford Gerber RN Position: S RN Member Role: Primary Care Nurse Name: Peter Monahan RN Position: [facility] RN Member Role: Primary Care Nurse Name: Aziza Poole RN Position: [facility] RN Member Role: Primary Care Nurse Name: Monet Miller RN Position: [facility] RN Member Role: Primary Care Nurse Name: Katheryn Wu RN Position: [facility] RN Member Role: Primary Care Nurse Name: Doris Dee RN Position: [facility] RN Member Role: Primary Care Nurse Name: Janae Soto RN Position: [facility] RN Member Role: Primary Care Nurse Name: Hyun Ochoa RN Position: [facility] RN Member Role: Primary Care Nurse Name: Nancy Magana RN Position: [facility] RN Member Role: Primary Care Nurse Name: Ranjana Zavala RN Position: [facility] RN Member Role: Primary Care Nurse Name: Melvi Carter RN Position: [facility] OB RN Member Role: Primary Care Nurse Name: Jackson Rosen RN Position: [facility] RN Member Role: Primary Care Nurse Name: Clarissa Rodriguez Position: [facility] RN Supv Member Role: Primary Care Nurse Name: Ophelia Marie RN Position: [facility] RN Member Role: Primary Care Nurse Name: Nolvia Mendes RN Position: [facility] RN Member Role: Primary Care Nurse Name: Adi Rees RN Position: [facility] RN Member Role: Primary Care Nurse Name: Catalina Torres RN Position: [facility] RN Member Role: Primary Care Nurse Name: Doroteo Morrow RN Position: [facility] RN Member Role: Primary Care Nurse Address: Address: [address] [place] [address]- [place] Name: Cassidy Masters RN Position: [facility] RN Member Role: Primary Care Nurse Name: Juancarlos Valente RN Position: [facility] Hospital Pulley Maintainer Member Role: Primary Care Nurse Name: Dawna Hernandez MD Position: [facility] Primary Care Physician Member Role: PCP Address: Address: [address] [place] [address]- [place] Name: Maikel Tillman MD Position: [facility] ED Medicine MD Member Role: ED Attending Physician Address: Address: [address] [place] [address]- [place] Care Team Related Persons Name: BARBOSASYLVIA Address: home [address] [place] [address] Name: GAGE HUNT Address: [address] [address] Name: JOCELYN HUNT Address: [address] [address]
--- OUTSIDE RECORDS SUMMARY | 2024-05-24 04:35 | XMS_ITS | Continuity of Care Document ---
Author Organization [facility] ter Address [address] [place] [address]- Care Team Providers Care Orchard Sprayer Name Role Phone Dawna Hernandez MD Primary Care Physician [phone] Encounter [facility] [place](s): 12/20/22 - 12/21/[address] [address]- Discharge Disposition: A-D/C Walkout Attending Physician: Not on Staff, Attending MD Admitting Physician: Not on Staff, Admitting MD Referring Physician: Not on Staff, Referring MD Allergies, Adverse Reactions, Alerts Substance Reaction Severity Status lisinopril Angioedema Active Shrimp Active Immunizations Given and Recorded Vaccine Date Status Refusal Reason [id number] 12y+ bivalent booster vax 11/03/22 Given influenza virus vaccine, inactivated 11/03/22 Give n influenza virus vaccine, inactivated 02/15/22 Give n influenza virus vaccine, inactivated 09/01/20 Give n influenza virus vaccine, inactivated 09/15/19 Give n influenza virus vaccine, inactivated 11/19/18 Give n influenza virus vaccine, inactivated 09/10/17 Give n influenza virus vaccine, inactivated 12/06/15 Give n SARS-CoV-2 mRNA ([id number]-kryg-mvrnu) vax 01/26/22 Given SARS-CoV-2 mRNA (iwrxlxx-laio-fqpne) vax 12/28/21 Given tetanus/diphtheria/pertussis, acel(Tdap) 03/29/19 Given [...] 3 Refills, Maintenance, 05/11/22 14:22:00 EDT, Tablet, [facility]/pharmacy #[id number], Partial fill upon [...] tablet, 1 Refills, Maintenance, 04/05/22 7:53:00 EDT, [facility]/pharmacy #[id number], 165, cm, 02/15/22 10:35:00 EDT, Height, 90.7, kg, 02/06/22 19:49:00 EDT, Dry Weight Start Date: 04/05/22 Status: Ordered Colace sodium 100 mg oral capsule 100 mg, 1, capsule, By Mouth, 2 times a day, PRN, # 20 capsule, Refills 0, Tot. Refills 0, Maintenance, for constipation, 09/22/22 9:53:00 EST, Route to Pharmacy Electronically, [facility]/pharmacy [...] 09/06/22 21:10:00 EST, Route to Pharmacy Electronically, [facility]/pharmacy #[id number], Partial fill upon patientrequest if [...] patch, 0 Refills, Maintenance, 07/20/22 15:26:00 EDT, [facility] STORE [id number], 10, APPLY 1 PATCH DAILY NEEDED FOR MODERATE PAIN..REMOVE AFTER 12... Start Date: 07/20/22 Status: Ordered nitroglycerin 0.4 mg sublingual tablet 1 tablet = 0.4 mg, Sublingual, Every 5 minutes, PRN Chest Pain, # 100 tablet, 0 Refills, Maintenance, 11/06/22 13:52:00 EST, Tablet, [facility]/pharmacy #[id number], Partial fill upon patient request if the prescription is for a schedule II opioid drug., 175, cm,... Start Date: 11/06/22 Status: Ordered omeprazole 20 mg oral enteric coated capsule 1 capsule = 20 mg, By Mouth, Daily, # 30 capsule, 1 Refills, Maintenance, 12/01/22 11:59:00 EST, ECCapsule, [facility]/pharmacy #[id number], Partial fill upon [...] Refills, Maintenance, 12/01/22 12:02:00 EST, ER Tablet, [facility]/pharmacy #[id number], Partial fill upon [...] tablet, Refills 5, Route to Pharmacy Electronically, [id number], 166, cm, 12/28/21 10:33:00 EDT, Height, 91.9, [...] EST, Supply Start Date: 12/12/22 Status: Ordered Entry Table Operator Entry Table Operator, See Instructions, # 1 each, Refills [...] each, 0 Refills, Maintenance, 12/12/22 12:14:00 EST, [facility] [id number], 175, cm, 11/15/22 9:07:00 EST, Height, 88.2, [...] Confirmed Active Health snf, active care coordination Nteta Nancy [facility] [phone] Confirmed Active Fatty infiltration of liver Confirmed Active Tubular adenoma of colon Confirmed Active Results Radiology Reports * Exam Date Time Procedure Performing Provider Status 12/20/22 12:47 PM Chest 2 Views Frontal and Lat Leo , Kacey; Auth (Verified) Notes: (Chest 2 Views Frontal and Lat) Reason For Exam: Chest Pain;Other: RESULT: Chest 2 Views Frontal and Lat Chest 2 Views Frontal and Lat HX OF PRESENT ILLNESS: ? syncope, cp abd pain; Reason: Other:; Chest Pain; Clinical Question(s): Other: / Other: COMPARISON: 08/18/2022 FINDINGS: LINES AND TUBES: None. LUNGS AND PLEURA: Clear lungs. Normal pulmonary vascularity. No pleural effusion. No pneumothorax. HEART, MEDIASTINUM AND YANETH: Heart is normal in size. Normal mediastinal and hilar contour. BONES AND SOFT TISSUES: No acute abnormality. IMPRESSION: No evidence of acute abnormality. WSN: [id number] Ordering Physician: Britt Mendoza Dictated By: Jayce Mix MD Dictated Date/Time: 12/20/22 12:50 p Reviewed By: Jayce Mix MD Signed By: Jayce Mix MD Signed Date/Time: 12/20/22 12:50 pm Transcribed By: HARPAL Transcribed Date/Time: 12/20/22 12:50 pm Vital Signs Most recent to oldest [Reference Range]: 1 2 3 Height 165 cm (12/20/22 10:52 PM) 165 cm (12/20/22 12:09 PM) 165 cm (12/20/22 10:38 AM) Weight 93.2 kg (12/20/22 10:52 PM) 93.2 kg (12/20/22 12:09 PM) 93.2 kg (12/20/22 10:38 AM) Oxygen Saturation [94-100 %] 98 % (12/20/22 10:52 PM) 99 % (12/20/22 9:01 PM) 100 % (12/20/22 6:50 PM) Pulse Rate [55-90 bpm] 86 bpm (12/20/22 10:52 PM) 85 bpm (12/20/22 9:01 PM) 95 bpm *H* (12/20/22 6:50 PM) Body Mass Index [18.5-24.99 kg/m2] 34.23 kg/m2 *>HHI* (12/20/22 10:52 PM) 34.23 kg/m2 *>HHI* (12/20/22 10:38 AM) Blood Pressure [90-138/55-84 mm Hg] 141/112mm Hg *H* (12/20/22 10:52 PM) 126/91mm Hg (12/20/22 9:01 PM) 124/80mm Hg (12/20/22 6:50 PM) Respiratory Rate [16-30 br/min] 17 br/min (12/20/22 10:52 PM) 16 br/min (12/20/22 6:50 PM) 18 br/min (12/20/22 4:37 PM) Temperature [96.8-100.4 DegF] 97.7 DegF (12/20/22 10:52 PM) 97.9 DegF (12/20/22 9:01 PM) 98.8 DegF (12/20/22 6:50 PM) Liters per Minute 0 L/min (12/20/22 10:38 AM) Mode of Delivery (Oxygen) Room air (12/20/22 10:52 PM) Room air (12/20/22 9:01 PM) Room air (12/20/22 6:50 PM) Blood pressure sites Arm, right (12/20/22 10:52 PM) Arm, right (12/20/22 9:01 PM) Arm, right (12/20/22 6:50 PM) Temperature Route Oral (12/20/22 10:52 PM) Oral (12/20/22 9:01 PM) Oral (12/20/22 6:50 PM) Dry Weight 93.2 kg (12/20/22 10:52 PM) 93.2 kg (12/20/22 12:09 PM) 93.2 kg (12/20/22 10:38 AM) Weight Obtained Via Patient/family state d (12/20/22 10:38 AM) Dry Weight Obtained Via Patient/family s tated (12/20/22 10:38 AM) Social History Social History Type Response Smoking Status Former smoker; Other : Quit 2014; entered on: 09/10/17 Sex EKG study * Event Display: EKG Authored Date: * Event Display: ECG 12-Lead Authored Date: Please click on pdf link to open report * Event Display: ECG 12-Lead Authored Date: Ventricular Rate: 102 BPM Atrial Rate: 102 BPM P-R Interval: 118 ms QRS Duration: 80 ms Q-T Interval: 350 ms QTC Calculation(Bazett): 456 ms P [place]: 13 degrees R [place]: 8 degrees T [place]: 37 degrees Sinus tachycardia Otherwise normal ECG When compared with ECG of 03-NOV-2022 11:22, No significant change was found Confirmed by PAIGE CASTELLANO MD ([id number]) on 12/20/2022 2:13:30 PM Swan: PAIGE CASTELLANO MD Note * [facility] , CIS S: TRANSCRIBE Jayce Mix MD: VERIFY Event Display: Result: Authored Date: [id number] Chest 2 Views Frontal and Lat HX OF PRESENT ILLNESS: ? syncope, cp abd pain; Reason: Other:; Chest Pain; Clinical Question(s): Other: / Other: COMPARISON: 08/18/2022 FINDINGS: LINES AND TUBES: None. LUNGS AND PLEURA: Clear lungs. Normal pulmonary vascularity. No pleural effusion. No pneumothorax. HEART, MEDIASTINUM AND YANETH: Heart is normal in size. Normal mediastinal and hilar contour. BONES AND SOFT TISSUES: No acute abnormality. IMPRESSION: No evidence of acute abnormality. WSN: [id number] Ordering Physician: Britt Mendoza Dictated By: Jayce Mix MD Dictated Date/Time: 12/20/22 12:50 p Reviewed By: Jayce Mix MD Signed By: Jayce Mix MD Signed Date/Time: 12/20/22 12:50 pm Transcribed By: HARPAL Transcribed Date/Time: 12/20/22 12:50 pm Patient Care team information Care Team Personnel Name: Macarena Lewis RN Position: [facility] RN Member Role: Primary Care Nurse Name: Mallory Lugo RN Position: [facility] RN Member Role: Primary Care Nurse Name: Carmen Gao RN Position: [facility] RN Member Role: Primary Care Nurse Name: Dacia Evangelista RN Position: [facility] RN Member Role: Primary Care Nurse Name: Tracey Linares RN Position: [facility] LATIAO RN Member Role: Primary Care Nurse Name: Italia Ortega RN Position: [facility] RN Member Role: Primary Care Nurse Name: Catalina He RN Position: [facility] AMB Nurse Member Role: Primary Care Nurse Name: Cortez Golden RN Position: [facility] RN Member Role: Primary Care Nurse Name: Jessica Lantigua RN Position: [facility] SN RN Member Role: Primary Care Nurse Name: Clifford Gerber RN Position: [facility] RN Member Role: Primary Care Nurse Name: Peter Monahan RN Position: [facility] RN Member Role: Primary Care Nurse Name: Aziza Poole RN Position: [facility] RN Member Role: Primary Care Nurse Name: Monet Miller RN Position: [facility] RN Member Role: Primary Care Nurse Name: Katheryn Wu RN Position: [facility] RN Member Role: Primary Care Nurse Name: Doris Dee RN Position: [facility] RN Member Role: Primary Care Nurse Name: Janae Soto RN Position: [facility] RN Member Role: Primary Care Nurse Name: Hyun Ochoa RN Position: [facility] RN Member Role: Primary Care Nurse Name: Nancy Magana RN Position: [facility] RN Member Role: Primary Care Nurse Name: Ranjana Zavala RN Position: [facility] RN Member Role: Primary Care Nurse Name: Mevli Carter RN Position: [facility] OB RN Member Role: Primary Care Nurse Name: Jackson Rosen RN Position: [facility] RN Member Role: Primary Care Nurse Name: Clarissa Rodriguez RN Position: [facility] RN Supv Member Role: Primary Care Nurse Name: Ophelia Marie RN Position: [facility] RN Member Role: Primary Care Nurse Name: Nolvia Mendes RN Position: [facility] RN Member Role: Primary Care Nurse Name: Adi Rees RN Position: [facility] RN Member Role: Primary Care Nurse Name: Catalina Torres RN Position: [facility] RN Member Role: Primary Care Nurse Name: Doroteo Morrow RN Position: [facility] RN Member Role: Primary Care Nurse Address: Address: [address] [place] [address]- [place] Name: Cassidy Masters RN Position: [facility] RN Member Role: Primary Care Nurse Name: Juancarlos Valente RN Position: [facility] [employer] Repairer Member Role: Primary Care Nurse Name: Dawna Hernandez MD Position: [facility] Primary Care Physician Member Role: PCP Address: Address: [address] [place] [address]- [place] Care Team Related Persons Name: SYLVIA BARBOSA Address: home [address] [place] [address] Name: GAGE HUNT Address: [address], [place] [address] Name: JOCELYN HUNT Address: home [address] [id number]
--- OUTSIDE RECORDS SUMMARY | 2024-05-24 04:36 | XMS_ITS | Continuity of Care Document ---
Author Organization [facility] ter Address [address] [place] [address]- Care Team Providers Care Broaching Machine Repairer Name Role Phone Alonzo Esposito MD Primary Care Physician [place] [facility] [place]23 - 10/17/[address] [address] Attending Physician: Clint Puga MD Referring Physician: Clint Puga MD Allergies, Adverse Reactions, Alerts Substance Reaction [...] influenza virus vaccine, inactivated 12/06/15 Give n [id number] 12y+ bivalent booster vax 11/03/22 Given SARS-CoV-2 mRNA (ahjavju-iorz-lptzi) vax 01/26/22 Given SARS-CoV-2 mRNA (zmsyozk-eqsf-vqxlq) vax 12/28/21 Given tetanus/diphtheria/pertussis, acel(Tdap) 03/29/19 Given tetanus/diphtheria/pertussis, acel(Tdap) 09/10/17 Given pneumococcal 23-valent vaccine 04/08/18 Recorded pneumococcal 23-valent vaccine 04/22/17 Recorded pneumococcal 23-valent vaccine 12/21/12 Given Medications aspirin 81 mg oral delayed release tablet 81 mg, By Mouth, Daily, # 30 tablet, Refills 11, Tot. Refills 11, Maintenance, 09/12/23 17:42:00 EST, Route to Pharmacy Electronically, [facility] [id number], For blister pack please., 166, cm, 09/12/23 13:54:00 EST, Height, 9... Start Date: 09/12/23 Status: Ordered atorvastatin 40 mg oral tablet 1 tablet = 40 mg, By Mouth, Daily, # 30 tablet, 11 Refills, Maintenance, 09/12/23 17:42:00 EST, Tablet, [place], [place] - [id number], For blister pack please., 166, cm, 09/12/23 13:54:00 EST, Height, 93, kg, 09/06/23 16:15:00 EST, DrLisa Start Date: 09/12/23 Stop Date: 09/06/24 Status: Ordered chlorhexidine topical 0.12% liquid See Instructions, SWISH AND SPIT DO NOT SWALLOW. USE 3-4 X/ DAY, # 473 mL, 0 Refills, Maintenance, 09/25/23 16:56:00 EST, [facility] ST[facility] [id number], 30, SWISH AND SPIT DO NOT SWALLOW. USE 3-4 X/ DAY, 166, cm, 09/21/23 11:32:00 EST, Height, 93, kg, 09/14/23 12:3... Start Date: 09/25/23 Status: Ordered docusate sodium 100 mg oral tablet 1 tablet = 100 mg, By Mouth, 2 times a day, PRN for constipation, # 60 tablet, 0 Refills, Maintenance, 09/27/23 13:27:00 EST, Tablet, [facility]/pharmacy #[id number], Partial fill [...] Maintenance, 09/12/23 17:44:00 EST, Route to Pharmacy Electronically,[facility] [id number], for... Start Date: 09/12/23 Status: Ordered gabapentin 300 mg oral capsule 300 mg, 1, capsule, By Mouth, 2 times a day, # 60 capsule, Refills 11, Tot. Refills 11, Maintenance, 09/12/23 17:42:00 EST, Route to Pharmacy Electronically, [facility] [id number], For blister pack please., 166, cm, 09/12/23 1... Start Date: 09/12/23 Status: Ordered nitroglycerin 0.4 mg sublingual tablet 1 tablet = 0.4 mg, Sublingual, Every 5 minutes, PRN Chest Pain, # 100 tablet, 0 Refills, Maintenance, 06/08/23 16:23:00 EDT, [id number] Partial fill upon patient request if the prescription is for a schedule II opioid drug., 165, cm,... Start Date: 06/08/23 Status: Ordered oxyCODONE 15 mg oral tablet 1 tablet = 15 mg, By Mouth, Every 6 hours, PRN Pain , Severe, controlled substance agreement. adjusting dose back to previous dose., # 120 tablet, 0 Refills, Maintenance, 09/24/23 12:55:00 EST, [id number] Partial fill upon patient req... Start Date: 09/24/23 Status: Ordered propranolol 20 mg oral tablet 2, tablet, By Mouth, 2 times a day, # 120 tablet, Refills 11, Tot. Refills , Maintenance, 09/12/23 17:42:00 EST, Route to Pharmacy Electronically, [facility] [id number], For blister pack please., 166, cm, 09/12/23 13:54:00 E... Start Date: 09/12/23 Status: Ordered risperiDONE 2 mg oral tablet 4 mg, 2, tablet, By Mouth, Daily at bedtime, Rx'd by psychiatry, # 60 tablet, Refills 11, Tot. Refills 11, Maintenance, 09/12/23 17:44:00 EST, Route to Pharmacy Electronically, [facility] [id number], for blister pack, 166, cm... Start Date: 09/12/23 Status: Ordered tiZANidine 2 mg oral tablet 2 mg, 1, tablet, By Mouth, 3 times a day, Can take two tablets at bedtime. Do not take at the same time as oxycodone., # 90 tablet, Refills 0, Tot. Refills 0, Maintenance, 09/26/23 10:38:00 EST, Route to Pharmacy Electronically, [facility]/pharmacy #[id number], Sp... Start Date: 09/26/23 Status: Ordered traZODone 100 mg oral tablet 50 mg, 0.5, tablet, By Mouth, Daily at bedtime, # 15 tablet, Refills 11, Tot. Refills 11, Maintenance, 09/12/23 17:44:00 EST, Route to Pharmacy Electronically, [facility] [place] [place] - [id number], Partial fill upon patient request if the pr... Start Date: 09/12/23 Status: Ordered Ventolin HFA 108 mcg/inh inhalation aerosol with adapter 2 puffs, Inhalation, 4 times a day, PRN NEEDED FOR WHEEZING, # 18 Gm, 11 Refills, Maintenance, 02/22/23 8:17:00 EDT, [facility]/pharmacy #[id number], 166, cm, 01/18/23 15:56:00 EDT, [...] skilled nursing, active care coordination PADMINI Nancy [facility] [phone] Confirmed Active Fatty infiltration of liver Confirmed [...] Nurse Name: Mallory Lugo RN Position: [facility] RN Member Role: Primary Care Nurse Name: Carmen Gao RN Position: [facility] ED RN W/OE and Tasks Member Role: Primary Care Nurse Name: Dacia Evangelista RN Position: [facility] RN Member Role: Primary Care Nurse Name: Tracey Linares RN Position: [facility] AMB Nurse Member Role: Primary Care Nurse Name: Italia Ortega RN Position: [facility] RN Member Role: Primary Care Nurse Name: Catalina He RN Position: [facility] AMB Nurse Member Role: Primary Care Nurse Name: Jessica Lantigua RN Position: [facility] SN RN Member Role: Primary Care Nurse Name: Catalina Pack RN Position: [facility] SN RN Member Role: Primary Care Nurse Name: Clifford Gerber RN Position: [facility] RN Member Role: Primary Care Nurse Name: Doris Butler RN Position: [facility] RN Member Role: Primary Care Nurse Name: Aziza Poole RN Position: [facility] RN Member Role: Primary Care Nurse Name: Monet Miller RN Position: [facility] RN Member Role: Primary Care Nurse Name: Katheryn Wu RN Position: [facility] SN RN Member Role: Primary Care Nurse Name: Doris Dee RN Position: [facility] RN Member Role: Primary Care Nurse Name: Janae Soto RN Position: [facility] RN Member Role: Primary Care Nurse Name: Daphney Echols LPN Position: [facility] RN Member Role: Primary Care Nurse Name: Nini Odonnell RN Position: [facility] RN Member Role: Primary Care Nurse Name: Jennifer Thakkar RN Position: [facility] RN Member Role: Primary Care Nurse Name: Hyun Ochoa RN Position: [facility] RN Member Role: Primary Care Nurse Name: Yazmin Lay RN Position: [facility] RN Member Role: Primary Care Nurse Name: Nancy Magana RN Position: [facility] RN Member Role: Primary Care Nurse Name: Ranjana Zavala RN Position: [facility] RN Member Role: Primary Care Nurse Name: Melvi Carter RN Position: [facility] OB RN Member Role: Primary Care Nurse Name: Jackson Rosen RN Position: [facility] RN Member Role: Primary Care Nurse Name: Clarissa Rodriguez RN Position: [facility] RN Supv Member Role: Primary Care Nurse Name: Ophelia Marie RN Position: [facility] RN Member Role: Primary Care Nurse Name: Nolvia Mendes RN Position: [facility] RN Member Role: Primary Care Nurse Name: Tyrone Germain RN Position: [facility] RN Member Role: Primary Care Nurse Name: Adi Rees RN Position: [facility] RN Member Role: Primary Care Nurse Name: Orlando Mcallister RN Position: [facility] RN Member Role: Primary Care Nurse Name: Alonzo Esposito MD Position: [facility] Physician - Primary Care Member Role: PCP Address: Address: [address] [place] [address]- [place] Name: Doroteo Morrow RN Position: [facility] RN Member Role: Primary Care Nurse Address: Address: [address] [place] [address]- Name: Cassidy Masters RN Position: [facility] RN Member Role: Primary Care Nurse Name: Juancarlos Valente RN Position: [facility] Hospital Fine Arts Chair Member Role: Primary Care Nurse Name: Tran Wiseman RN Position: [facility] RN Member Role: Primary Care Nurse Care Team Related Persons Name: SYLVIA BARBOSA Address: [address] [place] [address] Name: GAGE HUNT Address: [address] [place] [address] Name: JOCELYN HUNT Address: home [address] [place] [address]
--- OUTSIDE RECORDS SUMMARY | 2024-05-24 04:36 | XMS_ITS | Continuity of Care Document ---
Author Organization [facility] Address [address] [place] [address]- Care Team Providers Care Wellness Educator Name Role Phone Alonzo Esposito MD Primary Care Physician [phone] Encounter [facility] Date(s): 07/06/23 - 08/05/[address] [address]- Allergies, Adverse Reactions, Alerts Substance Reaction Severity Status lisinopril Angioedema Active Shrimp Active Immunizations Given and Recorded Vaccine Date Status Refusal Reason [id number] 12y+ bivalent booster vax 11/03/22 Given influenza virus vaccine, inactivated 11/03/22 Give n influenza virus vaccine, inactivated 02/15/22 Give n influenza virus vaccine, inactivated 09/01/20 Give n influenza virus vaccine, inactivated 09/15/19 Give n influenza virus vaccine, inactivated 11/19/18 Give n influenza virus vaccine, inactivated 09/10/17 Give n influenza virus vaccine, inactivated 12/06/15 Give n SARS-CoV-2 mRNA (kmeyxsx-[id number]) vax 01/26/22 Given SARS-CoV-2 mRNA (kqxripy-qbhi-pflnp) vax 12/28/21 Given tetanus/diphtheria/pertussis, acel(Tdap) 03/29/19 Given tetanus/diphtheria/pertussis, acel(Tdap) 09/10/17 Given pneumococcal 23-valent vaccine 04/08/18 Recorded pneumococcal 23-valent vaccine 04/22/17 Recorded pneumococcal 23-valent vaccine 12/21/12 Given Medications acetaminophen-oxycodone 325 mg-10 mg oral tablet 1 tablet, By Mouth, Daily at bedtime, for 30 days, mass pat verified, # 30 tablet, 0 Refills, Acute08/17/23 9:32:00 EDT, 10/04/23 9:32:00 EDT, [facility]/pharmacy #[id number], Partial fill upon patient request if the prescription is for a schedule II opioid drug.... Start Date: 07/18/23 Stop Date: 08/17/23 Status: Ordered diclofenac 1% topical gel 1 application, Topically, 4 times a day, # 100 Gm, 3 Refills, Maintenance, 04/30/23 14:32:00 EDT, Gel, [facility]/pharmacy #[id number], Partial fill upon patient [...] Refills, Maintenance, 06/08/23 16:23:00 EDT, Tablet, [facility]/pharmacy #[id number], Partial fill upon patient request if the prescription is for a schedule II opioid drug., 165, cm,... Start Date: 06/08/23 Status: Ordered OxyCONTIN 15 mg oral tablet, extended release 1 tablet = 15 mg, By Mouth, Every 12 hours, dx: M54.5 MassPAT checked; appropriate, # 60 tablet, 0 Refills, Maintenance, 07/18/23 9:32:00 EDT, ER Tablet, [facility]/pharmacy #[id number], Partial fill upon patientrequest if the prescription is for a schedule II o... Start Date: 07/18/23 Stop Date: 08/17/23 Status: Ordered propranolol 20 mg oral tablet 2, tablet, By Mouth, 2 times a day, # 120 tablet, Refills 5, Maintenance, 04/19/23 20:48:00 EDT, Route to Pharmacy Electronically, [id number], 165, cm, 04/09/23 9:47:00 EDT, Height, 89.1, [...] Active Obstructive sleep apnea Confirmed Active [facility], active care coordination [facility] Nancy [facility] [phone] Confirmed Active Fatty infiltration of liver Confirmed Active Tubular adenoma of colon Confirmed Active 1history of this with surgical correction Social History Social History Type Response Smoking Status Former smoker; Other : Quit 2014; entered on: 09/10/17 Sex Patient Care team information Care Team Personnel Name: Macarena Lewis RN Position: [facility] RN Member Role: Primary Care Nurse Name: Mallory Lugo RN Position: [facility] RN Member Role: Primary Care Nurse Name: Carmen Gao RN Position: [facility] RN Member Role: Primary Care Nurse Name: Dacia Evangelista RN Position: [facility] RN Member Role: Primary Care Nurse Name: Tracey Linares RN Position: [facility] AMB Nurse Member Role: Primary Care Nurse Name: Italia Ortega RN Position: [facility] RN Member Role: Primary Care Nurse Name: Catalina He RN Position: [facility] AMB Nurse Member Role: Primary Care Nurse Name: Jessica Lantigua RN Position: [facility] SN RN Member Role: Primary Care Nurse Name: Catalina Pack RN Position: [facility] SN RN Member Role: Primary Care Nurse Name: Clifford Gerber RN Position: [facility] RN Member Role: Primary Care Nurse Name: Peter Monahan RN Position: [facility] RN Member Role: Primary Care Nurse Name: Aziza Poole RN Position: [facility] RN Member Role: Primary Care Nurse Name: Monet Miller RN Position: [facility] RN Member Role: Primary Care Nurse Name: Katheryn Wu RN Position: [facility] RN Member Role: Primary Care Nurse Name: Doris Dee RN Position: [facility] RN Member Role: Primary Care Nurse Name: Janae Soto RN Position: [facility] RN Member Role: Primary Care Nurse Name: Hyun Ochoa RN Position: [facility] RN Member Role: Primary Care Nurse Name: Nancy Magana RN Position: [facility] RN Member Role: Primary Care Nurse Name: Ranjana Zavala RN Position: [facility] RN Member Role: Primary Care Nurse Name: Melvi Carter RN Position: [facility] OB RN Member Role: Primary Care Nurse Name: Jackson Rosen RN Position: [facility] RN Member Role: Primary Care Nurse Name: Clarissa Rodriguez RN Position: [facility] RN Supv Member Role: Primary Care Nurse Name: Ophelia Marie RN Position: [facility] RN Member Role: Primary Care Nurse Name: Nolvia Mendes RN Position: [facility] RN Member Role: Primary Care Nurse Name: Adi Rees RN Position: [facility] RN Member Role: Primary Care Nurse Name: Alonzo Esposito MD Position: [facility] Physician - Primary Care Member Role: PCP Address: Address: [address] [place] [id number]- [place] Name: Doroteo Morrow RN Position: [facility] RN Member Role: Primary Care Nurse Address: Address: [address] [place] [id number]- Name: Cassidy Masters RN Position: [facility] RN Member Role: Primary Care Nurse Name: Juancarlos Valente RN Position: [facility] Hospital Car Lot Attendant Member Role: Primary Care Nurse Care Team Related Persons Name: SYLVIA BARBOSA Address: home [address] [place] [id number] Name: GAGE HUNT Address: [address] [address] Name: JOCELYN HUNT Address: [place] [id number]
--- OUTSIDE RECORDS SUMMARY | 2024-05-24 04:36 | XMS_ITS | Continuity of Care Document ---
Author Organization [facility] Address [address] [place] [address]- Care Team Providers Care Consulting Application Engineer Name Role Phone Dawna Hernandez MD Primary Care Physician Encounter [facility] Date(s): 08/02/22 - 09/08/[address] [address] Attending Physician: Not on Staff, Attending [...] vaccine, inactivated 12/06/15 Give n SARS-CoV-2 mRNA (foefbzr-bomp-fjzes) vax 01/26/22 Given SARS-CoV-2 mRNA (kycbqvb-pvki-qqlgx) vax 12/28/21 Given tetanus/diphtheria/pertussis, acel(Tdap) 03/29/19 Given tetanus/diphtheria/pertussis, acel(Tdap) 09/10/17 Given pneumococcal 23-valent vaccine 04/08/18 Recorded pneumococcal 23-valent vaccine 04/22/17 Recorded pneumococcal 23-valent vaccine 12/21/12 Given Medications albuterol CFC free 90 mcg/inh inhalation aerosol 2, puffs, Inhalation, Every 6 hours, PRN, # 1 each, Refills 6, Tot. Refills 6, Maintenance, 08/07/22 17:48:00 EDT, Aerosol, Route to Pharmacy Electronically, [id number], [id number], 165, cm, 08/02/22 5:50:00 EDT, [...] tablet, 11 Refills, Maintenance, 06/15/22 17:40:00EDT, Tablet, [facility]/pharmacy #[id number], Partial fill upon patient request if the prescription is for a schedule II opioid drug., 165, cm, 06/15/22 14:29:00 ED... Start Date: 06/15/22 Status: Ordered ibuprofen 600 mg oral tablet 600 mg, 1, tablet, By Mouth, 3 times a day, # 90 tablet, Refills 0, Tot. Refills 0, Maintenance, 09/06/22 21:10:00 EST, Route to Pharmacy Electronically, [facility]/pharmacy #[id number], Partial fill upon patientrequest [...] patch, 0 Refills, Maintenance, 07/20/22 15:26:00 EDT, [facility] STORE [id number], 10, APPLY 1 PATCH DAILY NEEDED FOR MODERATE PAIN..REMOVE AFTER 12... Start Date: 07/20/22 Status: Ordered oxyCODONE 15 mg oral tablet 1 tablet = 15 mg, By Mouth, Every 6 hours, for 28 days, MassPAT checked, # 112 tablet, 0 Refills, Acute 10/04/22 12:00:00 EST, 09/06/22 12:00:00 EST, [facility]/pharmacy #[id number], [...] tablet, Refills 5, Route to Pharmacy Electronically, [id number], 166, cm, 12/28/21 10:33:00 EDT, Height, 91.9, [...] 0 Refills, Maintenance, 08/18/22 22:09:00 EDT, Aerosol, [facility]/pharmacy #[id number], Partial fill upon patient request if the prescription is for a schedule II opioid drug., 165, cm, 11/04/22 20:34:... Start Date: 08/18/22 Status: Ordered Walker [...] Confirmed Active Health retirement, active care coordination [facility] Nancy [facility] [phone] Confirmed Active Fatty infiltration of liver Confirmed Active Tubular adenoma of colon Confirmed Active Social History Social History Type Response Smoking Status Former smoker; Other : Quit 2014; entered on: 09/10/17 Sex Patient Care team information Care Team Personnel Name: Macarena Lewis RN Position: [facility] RN Member Role: Primary Care Nurse Name: Mallory Lugo RN Position: [facility] RN Member Role: Primary Care Nurse Name: Carmen Gao RN Position: [facility] RN Member Role: Primary Care Nurse Name: Dacia Evangelista RN Position: [facility] RN Member Role: Primary Care Nurse Name: Tracey Linares RN [facility] RN Member Role: Primary Care Nurse Name: Italia Ortega RN Position: [facility] RN Member Role: Primary Care Nurse Name: Catalina He RN Position: [facility] RN Member Role: Primary Care Nurse Name: Cortez Golden RN Position: [facility] RN Member Role: Primary Care Nurse Name: Jessica Lantigua RN Position: [facility] RN Member Role: Primary Care Nurse Name: Clifford Gerber RN Position: [facility] RN Member Role: Primary Care Nurse Name: Peter Monahan RN Position: [facility] RN Member Role: Primary Care Nurse Name: Aziza Poole RN Position: [facility] RN Member Role: Primary Care Nurse Name: Monet Miller RN Position: [facility] RN Member Role: Primary Care Nurse Name: Katheryn Wu RN Position: [facility] RN Member Role: Primary Care Nurse Name: Doris Dee RN Position: [facility] RN Member Role: Primary Care Nurse Name: Janae Soto RN Position: [facility] RN Member Role: Primary Care Nurse Name: Hyun Ochoa RN Position: [facility] RN Member Role: Primary Care Nurse Name: Nancy Magana RN Position: [facility] RN Member Role: Primary Care Nurse Name: Ranjana Zavala RN Position: [facility] RN Member Role: Primary Care Nurse Name: Melvi Carter RN Position: [facility] OB RN Member Role: Primary Care Nurse Name: Jackson Rosen RN Position: [facility] RN Member Role: Primary Care Nurse Name: Clarissa Rodriguez Position: [facility] RN Supv Member Role: Primary Care Nurse Name: Evelyn Pyle RN Position: [facility] RN Member Role: Primary Care Nurse Name: Ophelia Marie RN Position: [facility] RN Member Role: Primary Care Nurse Name: Nolvia Mendes RN Position: [facility] RN Member Role: Primary Care Nurse Name: Adi Rees RN Position: [facility] RN Member Role: Primary Care Nurse Name: Catalina Torres RN Position: [facility] RN Member Role: Primary Care Nurse Name: Doroteo Morrow RN Position: [facility] RN Member Role: Primary Care Nurse Address: Address: [address] [place] [address]- [place] Name: Cassidy Masters RN Position: [facility] RN Member Role: Primary Care Nurse Name: Juancarlos Valente RN Position: [facility] Hospital Pharmaceutical Officer Member Role: Primary Care Nurse Name: Dawna Hernandez MD Position: [facility] Primary Care Physician Member Role: PCP Address: Address: [address] [place] [id number]- Care Team Related Persons Name: CHELSEY SYLVIA Address: [address] [place] [address] Name: GAGE HUNT Address: [address] [place] [address] Name: JOCELYN HUNT Address: [address] [place] [address]
--- OUTSIDE RECORDS SUMMARY | 2024-05-24 04:36 | XMS_ITS | Continuity of Care Document ---
Author Organization [facility] ter Address [address] [place] [id number]- Care Team Providers Care Addresser Name Role Phone Dawna Hernandez MD Primary Care Physician [phone] Encounter [facility] Date(s): 03/17/23 - 03/17/[address] [address]- Encounter Diagnosis Radicular pain(Final) - 03/17/23 Discharge Disposition: A-D/C Home Attending Physician: Nelson Leon MD Admitting Physician: Nelson Leon MD Referring Physician: Not on Staff, Referring MD Allergies, Adverse Reactions, Alerts Substance Reaction Severity Status lisinopril Angioedema Active Shrimp Active Immunizations Given and Recorded Vaccine Date Status Refusal Reason [id number] 12y+ bivalent booster vax 11/03/22 Given influenza virus vaccine, inactivated 11/03/22 Give n influenza virus vaccine, inactivated 02/15/22 Give n influenza virus vaccine, inactivated 09/01/20 Give n influenza virus vaccine, inactivated 09/15/19 Give n influenza virus vaccine, inactivated 11/19/18 Give n influenza virus vaccine, inactivated 09/10/17 Give n influenza virus vaccine, inactivated 12/06/15 Give n SARS-CoV-2 mRNA (wkvikph-qggm-okhzi) vax 01/26/22 Given SARS-CoV-2 mRNA (lnuyatu-utrz-[id number]) vax 12/28/21 Given tetanus/diphtheria/pertussis, acel(Tdap) 03/29/19 Given [...] 03/15/23 0:06:00 EDT, Route to Pharmacy Electronically, [facility]/pharmacy #[id number], Partial fill upon patient request if the prescription is for a schedule II opioid drug.... Start Date: 03/15/23 Status: Ordered atorvastatin 40 mg oral tablet 1 tablet, By Mouth, Daily, # 90 tablet, 1 Refills, Maintenance, 03/01/23 12:46:00 EDT, [id number], 166, cm, 01/18/23 15:56:00 EDT, Height, 91, [...] tablet, 1 Refills, Maintenance, 02/22/23 8:17:00 EDT, [facility]/pharmacy #[id number], 166, cm, 01/18/23 15:56:00 EDT, Height, 91, kg, 01/18/23 15:56:00 EDT, Dry Weight Start Date: 02/22/23 Status: Ordered CPAP Machine See Instructions, # 1 units, Refills 0, Tot. Refills 0, Maintenance, CPAP of 8 cm of H2O with a heated humidifier. Recommend ordering a machine with compliance data tracking capabilities and following residual AHI. 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 Start Date: 09/10/17 Status: Ordered diclofenac 1% topical gel 1 application, Topically, 4 times a day, # 100 Gm, 0 Refills, Maintenance, 03/17/23 20:07:00 EDT, Gel, [id number], Partial fill upon patient request if the prescription is for a schedule II opioid drug., 165, cm, 03/17/23 16:52:00 EDT, Height,... Start Date: 03/17/23 Status: Ordered Dilaudid Inj 0.5 mg, Injection, IV Push Slowly, Every 15 minutes for 3 doses/times, Hold for SBP<90 or RR <12, PRN for Pain , Moderate, STAT, 03/17/23 17:22:00 EDT, Stop date Limited # of times Start Date: 03/17/23 Status: Ordered Dual Channel Transcutaneous Electrical Nerve [...] 09/06/22 21:10:00 EST, [id number] fill upon patientrequest if the [...] remove after 12 hours, # 13 each, 0 Refills, Maintenance, 03/17/23 20:07:00 EDT, Film, [facility]/pharmacy #[id number], Partial fill upon patient request if the prescription is for a schedule II opioid drug., 1 patch Top... Start Date: 03/17/23 Status: Ordered lidocaine 5% topical film 1 patch, Topically, Daily, PRN NEEDED FOR MODERATE PAIN, REMOVE AFTER 12 HOURS (12 HRS ON, 12 HRS OFF), # 10 patch, 0 Refills, Maintenance, 07/20/22 15:26:00 EDT, [id number], 10, APPLY 1 PATCH DAILY NEEDED FOR MODERATE PAIN..REMOVE AFTER 12... Start Date: 07/20/22 Status: Ordered Medrol Dosepak 4 mg oral tablet 1 pack/packet, By Mouth, Daily, for 6 days, as directed on package labeling, # 21 tablet, 5 Refills, Acute 04/22/23 20:03:00 EDT, 03/17/23 20:03:00 EDT, Tablet, [facility]/pharmacy #[id number], Partial fill upon patient request if the prescription is for a schedul... Start Date: 03/17/23 Stop Date: 04/22/23 Status: Ordered Motrin IB 200 mg oral tablet 2 tablet = 400 mg, By Mouth, Every 6 hours, PRN for pain, # 120 tablet, 0 Refills, Maintenance, 03/17/23 20:06:00 EDT, Tablet, [facility]/pharmacy #[id number], [...] capsule, 5 Refills, Maintenance, 03/03/23 15:23:00 EDT, [id number], 166, cm, 01/18/23 15:56:00 EDT, Height, 91, kg, 01/18/23 15:56:00 EDT, Dry Weight Start Date: 03/03/23 Status: Ordered OxyCONTIN 15 mg oral tablet, extended release 1 tablet = 15 mg, By Mouth, Every 12 hours, MassPAT checked dx: M54.5 on agreement, # 60 tablet, 0 Refills, Maintenance, 02/22/23 8:17:00 EDT, ER Tablet, [facility]/pharmacy [...] tablet, Refills 5, Route to Pharmacy Electronically, [id number], 166, cm, 12/28/21 10:33:00 EDT, Height, 91.9, [...] EST, Supply Start Date: 12/12/22 Status: Ordered Computer Networking Instructor Adjunct Computer Networking Instructor Adjunct, See Instructions, # 1 each, Refills 0, [...] 03/17/23 20:06:00 EDT, Route to Pharmacy Electronically, [facility]/pharmacy #[id number], Partial fill upon patient request if the prescription is for... Start Date: 03/17/23 Status: Ordered Ventolin HFA 108 mcg/inh inhalation aerosol with adapter 2 puffs, Inhalation, 4 times a day, PRN NEEDED FOR WHEEZING, # 18 Gm, 11 Refills, Maintenance, 02/22/23 8:17:00 EDT, [facility]/pharmacy #[id number], 166, cm, 01/18/23 [...] Confirmed Active [facility], active care coordination Netta Cruz [facility] [phone] Confirmed Active Fatty infiltration of liver Confirmed Active Tubular adenoma of colon Confirmed Active 1history of this with surgical correction Results Radiology Reports * Exam Date Time Procedure Performing Provider Status 03/17/23 6:[address] Cervical Spine W/O Contrast Nancy Ocasio; Auth (Verified) Notes: (CT Cervical Spine W/O Contrast) Reason For Exam: Neck trauma, dangerous injury mechanism;Other: RESULT: CT Cervical Spine W/O Contrast CT Head/Brain W/O Contrast, CT Cervical Spine W/O Contrast Hx of Present Illness: back pain; Reason: Headache(s); Clinical Question(s): Infarction. COMPARISON: CT angiogram neck 03/14/2023, CT head 03/14/2023 TECHNIQUE: Incremental CT without contrast through the head was formatted in axial and coronal plane. Spiral CT without contrast through the cervical spine was formatted in 3 planes. Automatic tube modulation was used for the cervical spine and iterative dose reconstruction was used for both the head and cervical spine to optimize scan parameters and image quality. CTDIvol Body: 16.70 mGy, DLP Body: 421 mGy*cm. CTDIvol Head: 39.70 mGy, DLP Head: 672 mGy*cm. FINDINGS - CT BRAIN: BRAIN: No parenchymal hemorrhage, midline shift or mass effect. Esparza-white matter differentiation is intact. No acute infarct. No white matter lesions. Ventricles, sulci and basilar cisterns are normal. EXTRA-AXIAL SPACES: No subdural or epidural collections. CALVARIUM, SKULL BASE AND SOFT TISSUES: No fractures or suspicious bony lesions. The paranasal sinuses and mastoid air cells are clear. Visualized orbits and globes are intact. The extracranial soft tissues are unremarkable. FINDINGS - CT CERVICAL SPINE: SPINE: No fracture. No acute osseous abnormalities. There is normal cervical lordosis. No subluxation. There is mild multilevel degenerative loss of disc height with endplate osteophytes. Disc osteophyte complexes at C3-C4 and C5-C6 with associated mild spinal canal stenosis. No locked or perched facet. OTHER BONES: Partially-imaged clavicles, upper ribs and scapulae are intact. SOFT TISSUES AND LUNG APICES: Soft tissues unremarkable. Clear lung apices. IMPRESSION - CT BRAIN: No acute intracranial process. IMPRESSION - CT CERVICAL SPINE: No fracture or subluxation. Mild degenerative disc disease. WSN: [id number] Ordering Physician: Randi Beckford Dictated By: Parish Landin MD Dictated Date/Time: 03/17/23 6:56 pm Reviewed By: Parish Landin MD Signed By: Parish Landin MD Signed Date/Time: 03/17/23 6:56 pm Transcribed By: HARPAL Transcribed Date/Time: 03/17/23 6:51 pm * Exam Date Time Procedure Performing Provider Status 03/17/23 6:[address] Head/Brain W/O Contrast Imtiaz Ocasio y; Auth (Verified) Notes: (CT Head/Brain W/O Contrast) Reason For Exam: Headache(s) RESULT: CT Head/Brain W/O Contrast CT Head/Brain W/O Contrast, CT Cervical Spine W/O Contrast Hx of Present Illness: back pain; Reason: Headache(s); Clinical Question(s): Infarction. COMPARISON: CT angiogram neck 03/14/2023, CT head 03/14/2023 TECHNIQUE: Incremental CT without contrast through the head was formatted in axial and coronal plane. Spiral CT without contrast through the cervical spine was formatted in 3 planes. Automatic tube modulation was used for the cervical spine and iterative dose reconstruction was used for both the head and cervical spine to optimize scan parameters and image quality. CTDIvol Body: 16.70 mGy, DLP Body: 421 mGy*cm. CTDIvol Head: 39.70 mGy, DLP Head: 672 mGy*cm. FINDINGS - CT BRAIN: BRAIN: No parenchymal hemorrhage, midline shift or mass effect. Esparza-white matter differentiation is intact. No acute infarct. No white matter lesions. Ventricles, sulci and basilar cisterns are normal. EXTRA-AXIAL SPACES: No subdural or epidural collections. CALVARIUM, SKULL BASE AND SOFT TISSUES: No fractures or suspicious bony lesions. The paranasal sinuses and mastoid air cells are clear. Visualized orbits and globes are intact. The extracranial soft tissues are unremarkable. FINDINGS - CT CERVICAL SPINE: SPINE: No fracture. No acute osseous abnormalities. There is normal cervical lordosis. No subluxation. There is mild multilevel degenerative loss of disc height with endplate osteophytes. Disc osteophyte complexes at C3-C4 and C5-C6 with associated mild spinal canal stenosis. No locked or perched facet. OTHER BONES: Partially-imaged clavicles, upper ribs and scapulae are intact. SOFT TISSUES AND LUNG APICES: Soft tissues unremarkable. Clear lung apices. IMPRESSION - CT BRAIN: No acute intracranial process. IMPRESSION - CT CERVICAL SPINE: No fracture or subluxation. Mild degenerative disc disease. WSN: [id number] Ordering Physician: Randi Beckford Dictated By: Parish Landin MD Dictated Date/Time: 03/17/23 6:56 pm Reviewed By: Parish Landin MD Signed By: Parish Landin MD Signed Date/Time: 03/17/23 6:56 pm Transcribed By: HARPAL Transcribed Date/Time: 03/17/23 6:51 pm * Exam Date Time Procedure Performing Provider Status 03/17/23 5:54 PM Chest 2 Views Frontal and Lat Balbina Rodrigues; Auth (Verified) Notes: (Chest 2 Views Frontal and Lat) Reason For Exam: Angina RESULT: Chest 2 Views Frontal and Lat Chest 2 Views Frontal and Lat Hx of Present Illness: back pain; Reason: Angina; Clinical Question(s): CHF COMPARISON: None. FINDINGS: LINES AND TUBES: None. LUNGS AND PLEURA: Clear lungs. Normal pulmonary vascularity. No pleural effusion. No pneumothorax. HEART, MEDIASTINUM AND YANETH: Heart is normal in size. Normal mediastinal and hilar contour. BONES AND SOFT TISSUES: No acute abnormality. IMPRESSION: No acute abnormality. WSN: [id number] Ordering Physician: Randi Beckford Dictated By: Vickey Rodriguez MD Dictated Date/Time: 03/17/23 5:54 pm Reviewed By: Vickey Rodriguez MD Signed By: Vickey Rodriguez MD Signed Date/Time: 03/17/23 5:54 pm Transcribed By: HARPAL Transcribed Date/Time: 03/17/23 5:54 pm Vital Signs Most recent to oldest [Reference Range]: 1 2 3 Height 165 cm (03/17/23 4:52 PM) 165 cm (03/17/23 12:20 PM) 165 cm (03/17/23 10:26 AM) Oxygen Saturation [94-100 %] 98 % (03/17/23 7:21 PM) 98 % (03/17/23 4:52 PM) 99 % (03/17/23 12:20 PM) Pulse Rate [55-90 bpm] 83 bpm (03/17/23 7:21 PM) 78 bpm (03/17/23 4:52 PM) 79 bpm (03/17/23 12:20 PM) Blood Pressure [90-138/55-84 mm Hg] 129/94mm Hg (03/17/23 7:21 PM) 122/82mm Hg (03/17/23 4:52 PM) 118/73mm Hg (03/17/23 12:20 PM) Respiratory Rate [16-30 br/min] 16 br/min (03/17/23 7:21 PM) 16 br/min (03/17/23 7:18 PM) 16 br/min (03/17/23 5:30 PM) Temperature [96.8-100.4 DegF] 98.1 DegF (03/17/23 4:52 PM) 98.2 DegF (03/17/23 9:16 AM) Mode of Delivery (Oxygen) Room air (03/17/23 7:21 PM) Room air (03/17/23 4:52 PM) Room air (03/17/23 12:20 PM) Blood pressure sites Arm, right (03/17/23 7:21 PM) Arm, right (03/17/23 4:52 PM) Arm, left (03/17/23 12:20 PM) Temperature Route Oral (03/17/23 4:52 PM) Oral (03/17/23 9:16 AM) Dry Weight 89.1 kg (03/17/23 4:52 PM) 89.1 kg (03/17/23 12:20 PM) 89.1 kg (03/17/23 10:26 AM) Weight Obtained Via Patient/family state d (03/17/23 9:16 AM) Dry Weight Obtained Via Standing scale (03/17/23 9:16 AM) Social History Social History Type Response Smoking Status Former smoker; Other : Quit 2014; entered on: 09/10/17 Sex EKG study * Event Display: ECG 12-Lead Authored Date: Please click on pdf link to open report * Event Display: ECG 12-Lead Authored Date: Ventricular Rate: 97 BPM Atrial Rate: 97 BPM P-R Interval: 116 ms QRS Duration: 80 ms Q-T Interval: 338 ms QTC Calculation(Bazett): 429 ms P [place]: 44 degrees R [place]: 33 degrees T [place]: 29 degrees Normal sinus rhythm Normal ECG When compared with ECG of 14-MAR-2023 21:20, MANUAL COMPARISON REQUIRED, DATA IS UNCONFIRMED Confirmed by MILI DE JESUS MD ([id number]) on 03/17/2023 6:43:33 PM [place]: MILI DE JESUS MD Note * Jose Luis Fontana MD: PERFORM Event Display: Patient Education Leaflets Authored Date: [id number] Physical Therapy Referral ?? 250 ?? This page is FOR PRESCRIBERS Only, ? DO NOT GIVE TO THE PATIENT? Physical Therapy Referral Program for Management of Pain In an effort to reduce narcotic use, some of our ED patients will benefit from a direct [facility]?? [facility] will see INSURED patients and has a system in place to avoid sending follow up paperwork to the ED prescribers.? Note: Non-[facility] physical therapy services will probably NOT be able to handle ED generated PT referrals. ?? Patients should still follow up with their PCP as soon as possible regarding their ongoing care. Inform patients that [facility] will discuss insurance when they call.?? Some insurance plans limit the amount of PT a patient can receive each year. ?? Complete the FIRST PAGE of the patient???s referral sheet. [place] or write in diagnosis Modify the timing for treatment, if needed List any major precautions (i.e.?? Non-weight bearing limb), if needed Sign, date and print your name at the bottom ? Physical Therapy Referral Form Patient Instructions: You are being referred to physical therapy.?? This form is your referral and MUST be brought to your appointment. You need to call to set up your appointment. ?? This form can be used at any [facility] Physical Therapy location.?? A list of locations is attached.?? 1)?? DIAGNOSIS/ICD-10 ([place]) Cervicalgia: M54.2 ? Strain of muscle, fascia and tendon at neck level: S16.1XXD? Radiculopathy, cervical region: M54.12? Mid back pain: M54.9 ? Low back pain:?? M54.5 Strain of muscle, fascia and tendon of lower back: S39.012D Radiculopathy, lumbosacral region: M54.17 Other:? 2)? [? ]? Evaluate and Treat 2 Times/Week for 4 weeks as needed [? ]?Other: 3)? [? ]? No Precautions [? ]?Precautions: ?? I hereby certify these services as medically necessary for the patient???s plan of care. Physician???s Signature Date Physician Name (printed)? Locations You can call any location below.?? Tell them you were seen in a [facility] Emergency Department and have a referral form.?? Remember to bring your referral form with you to the appointment. JESSIE Pineda [id number]? JESS[place] [address] [address] [facility], [address]? [address] Phone: [phone]? [place] [address]? [place] [address]? [address] ? [place] [address]? [place] [address]? [address] ? [place] [address]? JESSIE Bernard [address]? [address]? [facility] [place] ? [address] ? * Addi RAWLS, Jose Luis Gautam: PERFORM Event Display: Patient Education Leaflets Authored Date: [id number] Physical Therapy Referral ?? 250 ?? This page is FOR PRESCRIBERS Only, ? DO NOT GIVE TO THE PATIENT? Physical Therapy Referral Program for Management of Pain In an effort to reduce narcotic use, some of our ED patients will benefit from a direct referral [place] care.?? [facility] will see INSURED patients and has a system in place to avoid sending follow up paperwork to the ED prescribers.? Note: Non-[facility] physical therapy services will probably NOT be able to handle ED generated PT referrals. ?? Patients should still follow up with their PCP as soon as possible regarding their ongoing care. Inform patients that [facility] Re[facility] care will discuss insurance when they call.?? Some insurance plans limit the amount of PT a patient can receive each year. ?? Complete the FIRST PAGE of the patient???s referral sheet. [place] or write in diagnosis Modify the timing for treatment, if needed List any major precautions (i.e.?? Non-weight bearing limb), if needed Sign, date and print your name at the bottom ? Physical Therapy Referral Form Patient Instructions: You are being referred to physical therapy.?? This form is your referral and MUST be brought to your appointment. You need to call to set up your appointment. ?? This form can be used at any [facility] Physical Therapy location.?? A list of locations is attached.?? 1)?? DIAGNOSIS/ICD-10 ([place]) Cervicalgia: M54.2 ? Strain of muscle, fascia and tendon at neck level: S16.1XXD? Radiculopathy, cervical region: M54.12? Mid back pain: M54.9 ? Low back pain:?? M54.5 Strain of muscle, fascia and tendon of lower back: S39.012D Radiculopathy, lumbosacral region: M54.17 Other:? 2)? [? ]? Evaluate and Treat 2 Times/Week for 4 weeks as needed [? ]?Other: 3)? [? ]? No Precautions [? ]?Precautions: ?? I hereby certify these services as medically necessary for the patient???s plan of care. Physician???s Signature Date Physician Name (printed)? Locations You can call any location below.?? Tell them you were seen in a [facility] Emergency Department and have a referral form.?? Remember to bring your referral form with you to the appointment. JESSIE Pineda [id number]? JESSIE Arauz [address] [address] [facility], [address]? [address] Phone: [phone]? JESSIE Estrada [address]? [place] [address]? [address] ? [place] [address]? [place] [address]? [address] ? [place] [address]? [place] [address]? [address]? [facility] ? [address] ? Laboratory * [facility] , CIS S: TRANSCRIBE Vickey Rodriguez MD: VERIFY Event Display: Result: Authored Date: Chest 2 Views Frontal and Lat Hx of Present Illness: back pain; Reason: Angina; Clinical Question(s): CHF COMPARISON: None. FINDINGS: LINES AND TUBES: None. LUNGS AND PLEURA: Clear lungs. Normal pulmonary vascularity. No pleural effusion. No pneumothorax. HEART, MEDIASTINUM AND YANETH: Heart is normal in size. Normal mediastinal and hilar contour. BONES AND SOFT TISSUES: No acute abnormality. IMPRESSION: No acute abnormality. WSN: [id number] Ordering Physician: Randi Beckford Dictated By: Vickey Rodriguez MD Dictated Date/Time: 03/17/23 5:54 pm Reviewed By: Vickey Rodriguez MD Signed By: Vickey Rodriguez MD Signed Date/Time: 03/17/23 5:54 pm Transcribed By: HARPAL Transcribed Date/Time: 03/17/23 5:[address] Cervical spine WO contrast * [facility] , CIS S: TRANSCRIBE Parish Landin MD: VERIFY Event Display: Result: Authored Date: [id number] CT Head/Brain W/O Contrast, CT Cervical Spine W/O Contrast Hx of Present Illness: back pain; Reason: Headache(s); Clinical Question(s): Infarction. COMPARISON: CT angiogram neck 03/14/2023, CT head 03/14/2023 TECHNIQUE: Incremental CT without contrast through the head was formatted in axial and coronal plane. Spiral CT without contrast through the cervical spine was formatted in 3 planes. Automatic tube modulation was used for the cervical spine and iterative dose reconstruction was used for both the head and cervical spine to optimize scan parameters and image quality. CTDIvol Body: 16.70 mGy, DLP Body: 421 mGy*cm. CTDIvol Head: 39.70 mGy, DLP Head: 672 mGy*cm. FINDINGS - CT BRAIN: BRAIN: No parenchymal hemorrhage, midline shift or mass effect. Esparza-white matter differentiation is intact. No acute infarct. No white matter lesions. Ventricles, sulci and basilar cisterns are normal. EXTRA-AXIAL SPACES: No subdural or epidural collections. CALVARIUM, SKULL BASE AND SOFT TISSUES: No fractures or suspicious bony lesions. The paranasal sinuses and mastoid air cells are clear. Visualized orbits and globes are intact. The extracranial soft tissues are unremarkable. FINDINGS - CT CERVICAL SPINE: SPINE: No fracture. No acute osseous abnormalities. There is normal cervical lordosis. No subluxation. There is mild multilevel degenerative loss of disc height with endplate osteophytes. Disc osteophyte complexes at C3-C4 and C5-C6 with associated mild spinal canal stenosis. No locked or perched facet. OTHER BONES: Partially-imaged clavicles, upper ribs and scapulae are intact. SOFT TISSUES AND LUNG APICES: Soft tissues unremarkable. Clear lung apices. IMPRESSION - CT BRAIN: No acute intracranial process. IMPRESSION - CT CERVICAL SPINE: No fracture or subluxation. Mild degenerative disc disease. WSN: [id number] Ordering Physician: Shakeel Randi Brennan Dictated By: Parish Landin MD Dictated Date/Time: 03/17/23 6:56 pm Reviewed By: Parish Landin MD Signed By: Parish Landin MD Signed Date/Time: 03/17/23 6:56 pm Transcribed By: HARPAL Transcribed Date/Time: 03/17/23 6:[address] Head WO contrast * [facility] , CIS S: TRANSCRIBE Parish Landin MD: VERIFY Event Display: Result: Authored Date: [id number] CT Head/Brain W/O Contrast, CT Cervical Spine W/O Contrast Hx of Present Illness: back pain; Reason: Headache(s); Clinical Question(s): Infarction. COMPARISON: CT angiogram neck 03/14/2023, CT head 03/14/2023 TECHNIQUE: Incremental CT without contrast through the head was formatted in axial and coronal plane. Spiral CT without contrast through the cervical spine was formatted in 3 planes. Automatic tube modulation was used for the cervical spine and iterative dose reconstruction was used for both the head and cervical spine to optimize scan parameters and image quality. CTDIvol Body: 16.70 mGy, DLP Body: 421 mGy*cm. CTDIvol Head: 39.70 mGy, DLP Head: 672 mGy*cm. FINDINGS - CT BRAIN: BRAIN: No parenchymal hemorrhage, midline shift or mass effect. Esparza-white matter differentiation is intact. No acute infarct. No white matter lesions. Ventricles, sulci and basilar cisterns are normal. EXTRA-AXIAL SPACES: No subdural or epidural collections. CALVARIUM, SKULL BASE AND SOFT TISSUES: No fractures or suspicious bony lesions. The paranasal sinuses and mastoid air cells are clear. Visualized orbits and globes are intact. The extracranial soft tissues are unremarkable. FINDINGS - CT CERVICAL SPINE: SPINE: No fracture. No acute osseous abnormalities. There is normal cervical lordosis. No subluxation. There is mild multilevel degenerative loss of disc height with endplate osteophytes. Disc osteophyte complexes at C3-C4 and C5-C6 with associated mild spinal canal stenosis. No locked or perched facet. OTHER BONES: Partially-imaged clavicles, upper ribs and scapulae are intact. SOFT TISSUES AND LUNG APICES: Soft tissues unremarkable. Clear lung apices. IMPRESSION - CT BRAIN: No acute intracranial process. IMPRESSION - CT CERVICAL SPINE: No fracture or subluxation. Mild degenerative disc disease. WSN: [id number] Ordering Physician: Randi Beckford Dictated By: Parish Landin MD Dictated Date/Time: 03/17/23 6:56 pm Reviewed By: Parish Landin MD Signed By: Parish Landin MD Signed Date/Time: 03/17/23 6:56 pm Transcribed By: CSB Transcribed Date/Time: 03/17/23 6:51 pm Patient Care team information Care Team [...] Name: Tracey Linares RN Position: [facility] Nurse Member Role: Primary Care Nurse Name: Italia Ortega RN Position: [facility] RN Member Role: Primary Care Nurse Name: Catalina He RN Position: [facility] Nurse Member Role: Primary Care Nurse Name: Cortez Golden RN Position: [facility] RN Member Role: Primary Care Nurse Name: Jessica Lantigua RN Position: [facility] SN RN Member Role: Primary Care Nurse Name: Catalina Pack RN Position: [facility] SN RN Member Role: Primary Care Nurse [...] Name: Clarissa Rodriguez RN Position: [facility] RN Supv Member [...] Member Role: Primary Care Nurse Address: Address: [address] [place] [address]- Name: Cassidy Masters RN Position: [facility] RN Member Role: Primary Care Nurse Name: Juancarlos Valente RN Position: [facility] Hospital Industrial Truck Driver Member Role: Primary Care Nurse Name: Dawna Hernandez MD Position: [facility] Physician - Primary Care Member Role: PCP Address: Address: [address] [place] [address]- [place] Name: Jose Luis Fontana MD Position: [facility] Resident Member Role: ED Resident Address: Address: [address] [place] [address]- Name: Shauna Giles RN Position: [facility] ED RN W/OE and Tasks Member Role: Patient Care Provider Name: Nelson Leon MD Position: [facility] ED Medicine MD Member Role: Admitting Physician Address: Address: [address] [place] [address]- [place] Name: Nancy Rodriguez Position: [facility] ED [facility] Care Team Related Persons Name: BARBOSA SYLVIA Address: home [address] [place] [id number] Name: GAGE HUNT Address: home [address] [place] [address] Name: JOCELYN HUNT Address: home [address] [place] [address]
--- OUTSIDE RECORDS SUMMARY | 2024-05-24 04:36 | XMS_ITS | Continuity of Care Document ---
Author Organization [facility] Address [address] [place] [address]- Care Team Providers Care Master Ocean Name Role Phone Alonzo Esposito MD Primary Care Physician [phone] Encounter [facility] Date(s): 11/09/23 - 12/09/23 [facility] [address], [place] [address] Attending Physician: Lori Patton Admitting Physician: Admtr, Lori Referring Physician: Admtr, Ar8 Allergies, Adverse Reactions, [...] influenza virus vaccine, inactivated 12/06/15 Give n [id number] 12y+ bivalent booster vax 11/03/22 Given SARS-CoV-2 mRNA (jqoyjvx-kvhp-npzck) vax 01/26/22 Given SARS-CoV-2 mRNA (htcbvor-gjes-phlae) vax 12/28/21 Given pneumococcal 23-valent vaccine 04/08/18 Recorded pneumococcal 23-valent vaccine 04/22/17 Recorded pneumococcal 23-valent vaccine 12/21/12 Given 1Result Comment: [facility] aspirin 81 mg oral delayed release tablet 81 mg, By Mouth, Daily, # 30 tablet, Refills 11, Tot. Refills 11, Maintenance, 09/12/23 17:42:00 EST, Route to Pharmacy Electronically, [facility] [id number], For blister pack please., 166, cm, 09/12/23 13:54:00 EST, Height, 9... Start Date: 09/12/23 Status: Ordered atorvastatin 40 mg oral tablet 1 tablet = 40 mg, By Mouth, Daily, # 30 tablet, 11 Refills, Maintenance, 09/12/23 17:42:00 EST, Tablet, [facility] [id number], For blister pack please., 166, cm, 09/12/23 13:54:00 EST, Height, 93, kg, 09/06/23 16:15:00 EST, DrMicheal.. Start Date: 09/12/23 Stop Date: 09/06/24 Status: Ordered diclofenac 1% topical gel 1 application, Topically, 4 times a day, PRN Pain , Mild, not to exceed 16 grams/day/single joint of lower extremities, # 100 Gm, 3 Refills, Maintenance, 11/30/23 9:43:00 EST, Gel, [facility]/pharmacy #[id number], Partial fill upon patient request if the prescript... Start Date: 11/30/23 Status: Ordered FLUoxetine 20 mg oral capsule 60 mg, 3, capsule, By Mouth, Daily, TAKE 3 CAPSULES BY MOUTH EVERY DAY IN THE MORNING, # 90 capsule, Refills 11, Tot. Refills 11, Maintenance, 09/12/23 17:44:00 EST, Route to Pharmacy Electronically,[facility] [id number], for... Start Date: 09/12/23 Status: Ordered gabapentin 600 mg oral tablet = 600 mg, By Mouth, 2 times a day, # 60 tablet, 4 Refills, Maintenance, 11/30/23 9:35:00 EST, Tablet, [facility]/pharmacy #[id number], Partial fill upon patient request if the prescription is for a schedule II opioid drug.Please note dose change for pill pack., 16... Start Date: 11/30/23 Status: Ordered nitroglycerin 0.4 mg sublingual tablet 1 tablet = 0.4 mg, Sublingual, Every 5 minutes, PRN Chest Pain, # 100 tablet, 0 Refills, Maintenance, 06/08/23 16:23:00 EDT, Tablet, [facility]/pharmacy #[id number], Partial fill upon patient request if the prescription is for a schedule II opioid drug., 165, cm,... Start Date: 06/08/23 Status: Ordered oxyCODONE 15 mg oral tablet 1 tablet = 15 mg, By Mouth, Every 6 hours, PRN Pain , Severe, controlled substance agreement., # 120 tablet, 0 Refills, Maintenance, 11/30/23 9:38:00 EST, Tablet, [facility]/pharmacy #[id number], Partial fill upon patient request if the prescription is for a sched... Start Date: 11/30/23 Status: Ordered propranolol 20 mg oral tablet 2, tablet, By Mouth, 2 times a day, # 120 tablet, Refills 11, Tot. Refills 11, Maintenance, 09/12/23 17:42:00 EST, Route to Pharmacy Electronically, [facility] [id number], For blister pack please., 166, cm, 09/12/23 13:54:00 E... Start Date: 09/12/23 Status: Ordered risperiDONE 2 mg oral tablet 4 mg, 2, tablet, By Mouth, Daily at bedtime, Rx'd by psychiatry, # 60 tablet, Refills 11, Tot. Refills 11, Maintenance, 09/12/23 17:44:00 EST, Route to Pharmacy Electronically, [facility] [id number], for blister pack, 166, cm... Start Date: 09/12/23 Status: Ordered traZODone 100 mg oral tablet 50 mg, 0.5, tablet, By Mouth, Daily at bedtime, # 15 tablet, Refills 11, Tot. Refills 11, Maintenance, 09/12/23 17:44:00 EST, Route to Pharmacy Electronically, [facility] [id number], Partial fill upon patient request if the [...] Active Health residential, active care coordination [facility] [phone] Confirmed Active Fatty infiltration of liver Confirmed Active Tubular adenoma of colon Confirmed Active 1history of this with surgical correction Social History Social History Type Response Smoking Status Former smoker; Other : Quit 2014; entered on: 09/10/17 Sex Patient Care team information Care Team Personnel Name: Elvia Collins RN Position: [facility] RN Member Role: Primary Care Nurse Name: Macarena Lewis RN Position: [facility] RN Member Role: Primary Care Nurse Name: Mallory Lugo RN Position: [facility] RN Member Role: Primary Care Nurse Name: Carmen Gao RN Position: [facility] ED RN W/OE and Tasks Member Role: Primary Care Nurse Name: Dacia Evangelista RN Position: [facility] RN Member Role: Primary Care Nurse Name: Tracey Linares RN Position: [facility] Nurse Member Role: Primary Care Nurse Name: Italia Ortega RN Position: [facility] RN Member Role: Primary Care Nurse Name: Catalina He RN Position: [facility] Nurse Member Role: Primary Care Nurse Name: Cortez Golden RN Position: [facility] RN Member Role: Primary Care Nurse Name: Jessica Lantigua RN Position: [facility] SN RN Member Role: Primary Care Nurse Name: Catalina Pack RN Position: [facility] SN RN Member Role: Primary Care Nurse Name: Clifford Gerber RN Position: [facility] RN Member Role: Primary Care Nurse Name: Doris Butler RN Position: [facility] RN Member Role: Primary Care Nurse Name: Aziza Poole RN Position: [facility] RN Member Role: Primary Care Nurse Name: Monet Miller RN Position: [facility] RN Member Role: Primary Care Nurse Name: Katheryn Wu RN Position: [facility] SN RN Member Role: Primary Care Nurse Name: Doris Dee RN Position: [facility] RN Member Role: Primary Care Nurse Name: Janae Soto RN Position: [facility] RN Member Role: Primary Care Nurse Name: Daphney Echols LPN Position: [facility] RN Member Role: Primary Care Nurse Name: Nini Odonnell RN Position: [facility] RN Member Role: Primary Care Nurse Name: Jennifer Tahkkar RN Position: [facility] RN Member Role: Primary Care Nurse Name: Hyun Ochoa RN Position: [facility] RN Member Role: Primary Care Nurse Name: Yazmin Lay RN Position: [facility] RN Member Role: Primary Care Nurse Name: Ranjana Zavala RN Position: [facility] RN Member Role: Primary Care Nurse Name: Melvi Carter RN Position: [facility] OB RN Member Role: Primary Care Nurse Name: Jackson Rosen RN Position: [facility] RN Member Role: Primary Care Nurse Name: Clarissa Rodriguez RN Position: [facility] RN Supv Member Role: Primary Care Nurse Name: Ophelia Marie RN Position: [facility] RN Member Role: Primary Care Nurse Name: Nolvia Mendes RN Position: [facility] RN Member Role: Primary Care Nurse Name: Tyrone Germain RN Position: [facility] RN Member Role: Primary Care Nurse Name: Adi Rees RN Position: [facility] RN Member Role: Primary Care Nurse Name: Alonzo Esposito MD Position: [facility] Physician - Primary Care Member Role: PCP Address: Address: [address] [place] [address]- [place] Name: Doroteo Morrow RN Position: [facility] RN Member Role: Primary Care Nurse Address: Address: [address] [place] [address]- [place] Name: Cassidy Masters RN Position: [facility] RN Member Role: Primary Care Nurse Name: Juancarlos Valente RN Position: [facility] Hospital Training Personnel Supervisor Member Role: Primary Care Nurse Name: Tran Wiseman RN Position: [facility] RN Member Role: Primary Care Nurse Care Team Related Persons Name: LETI BARBOSAA Address: [address] [address] Name: GAGE HUNT Address: home [address] [place] [address] Name: JOCELYN HUNT Address: home [address] [place] [address]
--- OUTSIDE RECORDS SUMMARY | 2024-05-24 04:36 | XMS_ITS | Continuity of Care Document ---
Author Organization [facility] Address [address] [place] [address]- Care Team Providers Care Form Stripper Name Role Phone Dawna Hernandez MD Primary Care Physician [phone] Encounter [facility] [place] [id number] Date(s): 12/01/22 - 12/31/[address] [address] Attending Physician: AdmLori sandhu Admitting Physician: Admtr, Ar8 Referring Physician: Admtr, Ar8 Allergies, Adverse Reactions, Alerts Substance Reaction Severity Status lisinopril Angioedema Active Shrimp Active Immunizations Given and Recorded Vaccine Date Status Refusal Reason [id number] 12y+ bivalent booster vax 11/03/22 Given influenza virus vaccine, inactivated 11/03/22 Give n influenza virus vaccine, inactivated 02/15/22 Give n influenza virus vaccine, inactivated 09/01/20 Give n influenza virus vaccine, inactivated 09/15/19 Give n influenza virus vaccine, inactivated 11/19/18 Give n influenza virus vaccine, inactivated 09/10/17 Give n influenza virus vaccine, inactivated 12/06/15 Give n SARS-CoV-2 mRNA (coxloum-fkyt-xfeum) vax 01/26/22 Given SARS-CoV-2 mRNA (cpxcayl-heap-tjxba) vax 12/28/21 Given tetanus/diphtheria/pertussis, acel(Tdap) 03/29/19 Given [...] 3 Refills, Maintenance, 05/11/22 14:22:00 EDT, Tablet, [facility]/pharmacy #[id number], Partial fill [...] tablet, 1 Refills, Maintenance, 04/05/22 7:53:00 EDT, [facility]/pharmacy #[id number], 165, cm, 02/15/22 10:35:00 EDT, Height, 90.7, kg, 02/06/22 19:49:00 EDT, Dry Weight Start Date: 04/05/22 Status: Ordered Colace sodium 100 mg oral capsule 100 mg, 1, capsule, By Mouth, 2 times a day, PRN, # 20 capsule, Refills 0, Tot. Refills 0, Maintenance, for constipation, 09/22/22 9:53:00 EST, Route to Pharmacy Electronically, [facility] 09/06/22 21:10:00 EST, Route to Pharmacy Electronically, [facility]/pharmacy #[id number], Partial fill upon patientrequest [...] patch, 0 Refills, Maintenance, 07/20/22 15:26:00 EDT, [facility] STORE [id number], 10, APPLY 1 PATCH DAILY NEEDED FOR MODERATE PAIN..REMOVE AFTER 12... Start Date: 07/20/22 Status: Ordered nitroglycerin 0.4 mg sublingual tablet 1 tablet = 0.4 mg, Sublingual, Every 5 minutes, PRN Chest Pain, # 100 tablet, 0 Refills, Maintenance, 11/06/22 13:52:00 EST, Tablet, [facility]/pharmacy #[id number], Partial fill upon patient request if the prescription is for a schedule II opioid drug., 175, cm,... Start Date: 11/06/22 Status: Ordered omeprazole 20 mg oral enteric coated capsule 1 capsule = 20 mg, By Mouth, Daily, # 30 capsule, 1 Refills, Maintenance, 12/01/22 11:59:00 EST, ECCapsule, [facility]/pharmacy #[id number], Partial fill [...] Refills, Maintenance, 12/01/22 12:02:00 EST, ER Tablet, [facility]/pharmacy #[id number], Partial fill [...] tablet, Refills 5, Route to Pharmacy Electronically, [id number], 166, cm, 12/28/21 10:33:00 EDT, Height, 91.9, [...] EST, Supply Start Date: 12/12/22 Status: Ordered Processing Assistant Processing Assistant, See Instructions, # 1 each, Refills 0, [...] each, 0 Refills, Maintenance, 12/12/22 12:14:00 EST, [id number], 175, cm, 11/15/22 9:07:00 EST, Height, 88.2, [...] Active Obstructive sleep apnea Confirmed Active Health alf, active care coordination Netta [facility] [phone] Confirmed Active Fatty infiltration of liver Confirmed [...] Display: Case Management Discharge Plan Authored Date: [id number] Patient: JAMARCUS BARBOSA Age: 49 years Sex: Male : 1970 Associated Diagnoses: None Author: Elvia Metcalf RN Unable to reach pt for follow up call. Call placed to Pt. [phone] the telephone # you have dialed is temporarily not in service . [facility]ricity indicates Pt. has pending PCP appt. 10/16/19 9:00am/Dr. Hernandez. * Event Display: [place] [facility] Authored Date: [id number] Patient Care team information Care Team Personnel [...] Name: Tracey Linares RN Position: [facility] RN Member Role: Primary Care [...] Care Nurse Name: Monet Miller RN Position: [facility] RN Member Role: [...] Clarissa Rodriguez RN Position: [facility] RN Supv Member Role: Primary Care Nurse Name: Ophelia Marie RN Position: [facility] RN Member Role: Primary Care Nurse Name: Nolvia Mendes RN Position: [facility] RN Member Role: Primary Care Nurse Name: Adi Rees RN Position: [facility] RN Member Role: Primary Care Nurse Name: Catalina Torres RN Position: [facility] RN Member Role: Primary Care Nurse Name: Doroteo Morrow RN Position: [facility] RN Member Role: Primary Care Nurse Address: Address: [address] [place] [address]- Name: Cassidy Masters RN Position: [facility] RN Member Role: Primary Care Nurse Name: Juancarlos Valente RN Position: [facility] Hospital Access Manager Member Role: Primary Care Nurse Name: Dawna Hernandez MD Position: [facility] Primary Care Physician Member Role: PCP Address: Address: [address] [place] [address]- [place] Care Team Related Persons Name: BARBOSA SYLVIA Address: [address] [place] [address] Name: GAGE HUNT Address: [address] [place] [address] Name: JOCELYN HUNT Address: home [address] [place] [address]
--- OUTSIDE RECORDS SUMMARY | 2024-05-24 04:37 | XMS_ITS | Continuity of Care Document ---
Author Organization [facility] Address [address] [place] [address]- Care Team Providers Care Corner Block Cutter Name Role Phone Alonzo Esposito MD Primary Care Physician Encounter [facility] Date(s): 08/14/23 - 09/13/[address] [id number] Allergies, Adverse Reactions, Alerts Substance [...] influenza virus vaccine, inactivated 12/06/15 Give n [id number] 12y+ bivalent booster vax 11/03/22 Given SARS-CoV-2 mRNA ([id number]-[id number]-[id number]) vax 01/26/22 Given SARS-CoV-2 mRNA ([id number]-wpwjm) vax 12/28/21 Given tetanus/diphtheria/pertussis, acel(Tdap) 03/29/19 Given tetanus/diphtheria/pertussis, acel(Tdap) 09/10/17 Given pneumococcal 23-valent vaccine 04/08/18 Recorded pneumococcal 23-valent vaccine 04/22/17 Recorded pneumococcal 23-valent vaccine 12/21/12 Given Medications aspirin 81 mg oral delayed release tablet 81 mg, By Mouth, Daily, # 30 tablet, Refills 11, Tot. Refills 11, Maintenance, 09/12/23 17:42:00 EST, Route to Pharmacy Electronically, [facility] [id number], For blister pack please., 166, cm, 09/12/23 13:54:00 EST, Height, 9... Start Date: 09/12/23 Status: Ordered atorvastatin 40 mg oral tablet 1 tablet = 40 mg, By Mouth, Daily, # 30 tablet, 11 Refills, Maintenance, 09/12/23 17:42:00 EST, Tablet, [facility] [id number], For blister pack please., 166, cm, 09/12/23 13:54:00 EST, Height, 93, kg, 09/06/23 16:15:00 EST, . Start Date: 09/12/23 Stop Date: 09/06/24 Status: Ordered FLUoxetine 20 mg oral capsule 60 mg, 3, capsule, By Mouth, Daily, TAKE 3 CAPSULES BY MOUTH EVERY DAY IN THE MORNING, # 90 capsule, Refills 11, Tot. Refills 11, Maintenance, 09/12/23 17:44:00 EST, Route to Pharmacy Electronically,[facility] [id number], for... Start Date: 09/12/23 Status: Ordered gabapentin 300 mg oral capsule 300 mg, 1, capsule, By Mouth, 2 times a day, # 60 capsule, Refills 11, Tot. Refills 11, Maintenance, 09/12/23 17:42:00 EST, Route to Pharmacy Electronically, [facility] [id number], For blister pack please., 166, cm, 09/12/23 1... Start Date: 09/12/23 Status: Ordered nitroglycerin 0.4 mg sublingual tablet 1 tablet = 0.4 mg, Sublingual, Every 5 minutes, PRN Chest Pain, # 100 tablet, 0 Refills, Maintenance, 06/08/23 16:23:00 EDT, Tablet, [facility]/pharmacy #[id number], Partial fill upon patient request if the prescription is for a schedule II opioid drug., 165, cm,... Start Date: 06/08/23 Status: Ordered oxyCODONE 10 mg oral tablet 1 tablet = 10 mg, By Mouth, Every 6 hours, PRN Pain , Severe, for 5 days, # 20 tablet, 0 Refills, Acute 09/15/23 14:31:00 EST, 09/10/23 14:31:00 EST, Tablet, [facility]/pharmacy #[id number], Partial fill upon patient request if the prescription is for a schedule I... Start Date: 09/10/23 Stop Date: 09/15/23 Status: Ordered OxyCONTIN 15 mg oral tablet, extended release 1 tablet = 15 mg, By Mouth, Every 12 hours, dx: M54.5 MassPAT checked; appropriate, # 60 tablet, 0 Refills, Maintenance, 08/14/23 13:55:00 EDT, ER Tablet, [facility]/pharmacy #[id number], Partial fill upon patient request if the prescription is for a schedule II... Start Date: 08/14/23 Stop Date: 09/13/23 Status: Ordered propranolol 20 mg oral tablet 2, tablet, By Mouth, 2 times a day, # 120 tablet, Refills 11, Tot. Refills 11, Maintenance, 09/12/23 17:42:00 EST, Route to Pharmacy Electronically, [facility] [id number], For blister pack please., 166, cm, 09/12/23 13:54:00 E... Start Date: 09/12/23 Status: Ordered risperiDONE 2 mg oral tablet 4 mg, 2, tablet, By Mouth, Daily at bedtime, Rx'd by psychiatry, # 60 tablet, Refills 11, Tot. Refills 11, Maintenance, 09/12/23 17:44:00 EST, Route to Pharmacy Electronically, [facility] [id number], for blister pack, 166, cm... Start Date: 09/12/23 Status: Ordered traZODone 100 mg oral tablet 50 mg, 0.5, tablet, By Mouth, Daily at bedtime, # 15 tablet, Refills 11, Tot. Refills 11, Maintenance, 09/12/23 17:44:00 EST, Route to Pharmacy Electronically, [facility] [id number], Partial fill upon patient request if the [...] Active Health usp, active care coordination Netta Nancy Esperanza [phone] Confirmed Active Fatty infiltration of liver Confirmed Active Tubular adenoma of colon Confirmed Active 1history of this with surgical correction Social History Social History Type Response Smoking Status Former smoker; Other : Quit 2014; entered on: 09/10/17 Sex Patient Care team information Care Team Personnel Name: Elvia Collins RN Position: [facility] RN Member Role: Primary Care Nurse Name: Macarena Lewis RN Position: [facility] RN Member Role: Primary Care Nurse Name: Mallory Lugo RN Position: [facility] RN Member Role: Primary Care Nurse Name: Carmen Gao RN Position: [facility] ED RN W/OE and Tasks Member Role: Primary Care Nurse Name: Dacia Evangelista RN Position: [facility] RN Member Role: Primary Care Nurse Name: Tracey Linares RN Position: [facility] AMB Nurse Member Role: Primary Care Nurse Name: Italia Ortega RN Position: [facility] RN Member Role: Primary Care Nurse Name: Catalina He RN Position: [facility] AMB Nurse Member Role: Primary Care Nurse Name: Jessica Lantigua RN Position: [facility] SN RN Member Role: Primary Care Nurse Name: Catalina Pack RN Position: [facility] SN RN Member Role: Primary Care Nurse Name: Clifford Gerber RN Position: [facility] RN Member Role: Primary Care Nurse Name: Doris Butler RN Position: [facility] RN Member Role: Primary Care Nurse Name: Aziza Poole RN Position: [facility] RN Member Role: Primary Care Nurse Name: Monet Miller RN Position: [facility] RN Member Role: Primary Care Nurse Name: Katheryn Wu RN Position: [facility] RN Member Role: Primary Care Nurse Name: Doris Dee RN Position: [facility] RN Member Role: Primary Care Nurse Name: Janae Soto RN Position: [facility] RN Member Role: Primary Care Nurse Name: Daphney Echols LPN Position: [facility] RN Member Role: Primary Care Nurse Name: Nini Odonnell RN Position: [facility] RN Member Role: Primary Care Nurse Name: Jennifer Thakkar RN Position: [facility] RN Member Role: Primary Care Nurse Name: Hyun Ochoa RN Position: [facility] RN Member Role: Primary Care Nurse Name: Yazmin Lay RN Position: [facility] RN Member Role: Primary Care Nurse Name: Nancy Magana RN Position: [facility] RN Member Role: Primary Care Nurse Name: Ranjana Zavala RN Position: [facility] RN Member Role: Primary Care Nurse Name: Melvi Carter RN Position: [facility] OB RN Member Role: Primary Care Nurse Name: Jackson Rosen RN Position: [facility] RN Member Role: Primary Care Nurse Name: Clarissa Rodriguez RN Position: [facility] RN Vikram Member Role: Primary Care Nurse Name: Ophelia Marie RN Position: [facility] RN Member Role: Primary Care Nurse Name: Nolvia Mendes RN Position: [facility] RN Member Role: Primary Care Nurse Name: Adi Rees RN Position: [facility] RN Member Role: Primary Care Nurse Name: Alonzo Esposito MD Position: [facility] Physician - Primary Care Member Role: PCP Address: Address: [address] [place] [address]- [place] Name: Doroteo Morrow RN Position: [facility] RN Member Role: Primary Care Nurse Address: Address: [address] [place] [address]- Name: Cassidy Masters RN Position: [facility] RN Member Role: Primary Care Nurse Name: Juancarlos Valente RN Position: [facility] Hospital Mattress Weaver Member Role: Primary Care Nurse Name: Tran Wiseman RN Position: [facility] RN Member Role: Primary Care Nurse Care Team Related Persons Name: SYLVIA BARBOSA Address: [address] [address] Name: GAGE HUNT Address: home [address] [place] [address] Name: JOCELYN HUNT Address: [address] [address]
--- OUTSIDE RECORDS SUMMARY | 2024-05-24 04:37 | XMS_ITS | Continuity of Care Document ---
Author Organization [facility] Address [address] [place] [address]- Care Team Providers Care Vp Of Digital Marketing Name Role Phone Alonzo Esposito DO Primary Care Physician [phone] [place] [facility] [place] 05/14/23 - 06/13/[address] [address]- Encounter Diagnosis Controlled substance agreement signed 01/05/2023(Discharge Diagnosis) - 05/15/23 Allergies, Adverse Reactions, Alerts Substance Reaction Severity Status lisinopril Angioedema Active Shrimp Active Immunizations Given and Recorded Vaccine Date Status Refusal Reason [id number] 12y+ bivalent booster vax 11/03/22 Given influenza virus vaccine, inactivated 11/03/22 Give n influenza virus vaccine, inactivated 02/15/22 Give n influenza virus vaccine, inactivated 09/01/20 Give n influenza virus vaccine, inactivated 09/15/19 Give n influenza virus vaccine, inactivated 11/19/18 Give n influenza virus vaccine, inactivated 09/10/17 Give n influenza virus vaccine, inactivated 12/06/15 Give n SARS-CoV-2 mRNA ([id number]-kucy-[id number]) vax 01/26/22 Given SARS-CoV-2 mRNA (oekzxrk-wawo-tsgrx) vax 12/28/21 Given tetanus/diphtheria/pertussis, acel(Tdap) 03/29/19 Given tetanus/diphtheria/pertussis, acel(Tdap) 09/10/17 Given pneumococcal 23-valent vaccine 04/08/18 Recorded pneumococcal 23-valent vaccine 04/22/17 Recorded pneumococcal 23-valent vaccine 12/21/12 Given Medications acetaminophen-oxycodone 325 mg-10 mg oral tablet 1 tablet, By Mouth, Daily at bedtime, for 30 days, Fill on/after 05/17/2023 mass pat verified, # 30 tablet, 0 Refills, Acute 06/14/23 14:15:00 EDT, 05/15/23 14:15:00 EDT, [facility]/pharmacy #[id number], Partial fill upon patient request if the prescription is for... Start Date: 05/15/23 Stop Date: 06/14/23 Status: Ordered acetaminophen-oxycodone 325 mg-10 mg oral tablet 1 tablet, By Mouth, Daily at bedtime, for 30 days, mass pat verified, # 30 tablet, 0 Refills, Acute07/16/23 14:15:00 EDT, 06/16/23 14:15:00 EDT, [facility]/pharmacy #[id number], Partial fill upon patient requestif the prescription is for a schedule II opioid aditya... Start Date: 06/16/23 Stop Date: 07/16/23 Status: Ordered Alcohol Wipes See Instructions, # 1 box, Maintenance, please use before testing three times a day: dx type 2 diabetes, 04/04/18 18:52:53 EDT, Compound Start Date: 04/04/18 Status: Ordered Back Brace See Instructions, # [...] EDT, Supply Start Date: 01/02/23 Status: Ordered CPAP Machine See Instructions, # [...] 3 Refills, Maintenance, 04/30/23 14:32:00 EDT, Gel, [facility]/pharmacy #[id number], Partial fill upon patient request if the [...] THE MORNING Start Date: 06/04/23 Status: Ordered Freestyle Lite Lancets See Instructions, [...] Date: 12/28/20 Stop Date: 01/27/21 Status: Ordered Knee Support See Instructions, # [...] EDT, Supply Start Date: 01/02/23 Status: Ordered nitroglycerin 0.4 mg sublingual tablet 1 tablet = 0.4 mg, Sublingual, Every 5 minutes, PRN Chest Pain, # 100 tablet, 0 Refills, Maintenance, 06/08/23 16:23:00 EDT, Tablet, [facility] [...] Refills, Maintenance, 06/16/23 22:39:00 EDT, ER Tablet, [facility]/pharmacy #[id number], Partial fill upon patient request if the prescription is for a schedule II... Start Date: 06/16/23 Stop Date: 07/16/23 Status: Ordered PAP Supplies - Mask, Tubing, [...] EDT, Compound Start Date: 05/03/22 Status: Ordered propranolol 20 mg oral tablet 2, tablet, By Mouth, 2 times a day, # 120 tablet, Refills 5, Maintenance, 04/19/23 20:48:00 EDT, Route to Pharmacy Electronically, [id number], 165, cm, 04/09/23 9:47:00 EDT, Height, 89.1, [...] EST, Supply Start Date: 12/12/22 Status: Ordered Proctologist Proctologist, See Instructions, # 1 each, Refills 0, [...] EST, Supply Start Date: 12/21/22 Status: Ordered traZODone 100 mg oral tablet [...] [facility], active care coordination Netta Nancy [facility] [phone] Confirmed Active Fatty infiltration of liver Confirmed Active Tubular adenoma of colon Confirmed Active 1history of this with surgical correction Diagnosis Diagnosis Type Effective Dates Health Status Clinical Service Informant Controlled substance agreement signed 01/05/2023 Discharge Diagnosis 05/15/23 Social History Social History Type Response Smoking Status Former smoker; Other : Quit 2014; entered on: 09/10/17 Sex Patient Care team information Care Team Personnel Name: Macarena Lewis RN Position: [facility] RN Member Role: Primary Care Nurse Name: Mallory Lugo RN Position: [facility] RN Member Role: Primary Care Nurse Name: Carmen Gao RN Position: [facility] RN Member Role: Primary Care Nurse Name: Dacia Evangelista RN Position: [facility] RN Member Role: Primary Care Nurse Name: Tracey Linares RN Position: [facility] AMB Nurse Member Role: Primary Care Nurse Name: Italia Ortega RN Position: [facility] RN Member Role: Primary Care Nurse Name: Catalina He RN Position: [facility] AMB Nurse Member Role: Primary Care Nurse Name: Cortez Golden RN Position: [facility] RN Member Role: Primary Care Nurse Name: Jessica Lantigua RN Position: [facility] SN RN Member Role: Primary Care Nurse Name: Catalina Pack RN Position: [facility] SN RN Member Role: Primary Care Nurse Name: Clifford Gerber RN Position: [facility] RN Member Role: Primary Care Nurse Name: Peter Monahan RN Position: [facility] RN Member Role: Primary Care Nurse Name: Aziza Poole RN Position: [facility] RN Member Role: Primary Care Nurse Name: Monet Miller RN Position: [facility] RN Member Role: Primary Care Nurse Name: Katheryn Wu RN Position: [facility] RN Member Role: Primary Care Nurse Name: Doris Dee RN Position: [facility] RN Member Role: Primary Care Nurse Name: Janae Soto RN Position: [facility] RN Member Role: Primary Care Nurse Name: Hyun Ochoa RN Position: [facility] RN Member Role: Primary Care Nurse Name: Nancy Magana RN Position: [facility] RN Member Role: Primary Care Nurse Name: Ranjana Zavala RN Position: [facility] RN Member Role: Primary Care Nurse Name: Melvi Carter RN Position: [facility] OB RN Member Role: Primary Care Nurse Name: Jackson Rosen RN Position: [facility] RN Member Role: Primary Care Nurse Name: Clarissa Rodriguez RN Position: [facility] RN Supv Member Role: Primary Care Nurse Name: Ophelia Marie RN Position: [facility] RN Member Role: Primary Care Nurse Name: Nolvia Mendes RN Position: [facility] RN Member Role: Primary Care Nurse Name: Adi Rees RN Position: [facility] RN Member Role: Primary Care Nurse Name: Alonzo Esposito DO Position: [facility] Resident Member Role: PCP Address: Address: [address] [place] [address]- Name: Doroteo Morrow RN Position: [facility] RN Member Role: Primary Care Nurse Address: Address: [address] [place] [address]- Name: Cassidy Masters RN Position: [facility] RN Member Role: Primary Care Nurse Name: Juancarlos Valente RN Position: [facility] Associate Marketing Manager Member Role: Primary Care Nurse Care Team Related Persons Name: SYLVIA BARBOSA Address: home [address] [place] [id number] Name: GAGE HUNT Address: [address] [place] [address] Name: JOCELYN HUNT Address: [address] [place] [address]
--- OUTSIDE RECORDS SUMMARY | 2024-05-24 04:37 | XMS_ITS | Continuity of Care Document ---
Author Organization [facility] Address [address] [place] [address]- Care Team Providers Care Stretching Machine Operator Name Role Phone Alonzo Esposito MD Primary Care Physician [place] [facility] [place]24/23 - 10/24/[address] [address] Allergies, [...] influenza virus vaccine, inactivated 12/06/15 Give n [id number] 12y+ bivalent booster vax 11/03/22 Given SARS-CoV-2 mRNA ([id number]) vax 01/26/22 Given SARS-CoV-2 mRNA ([id number]-idgg-gyjzc) vax 12/28/21 Given tetanus/diphtheria/pertussis, acel(Tdap) 03/29/19 Given tetanus/diphtheria/pertussis, acel(Tdap) 09/10/17 Given pneumococcal 23-valent vaccine 04/08/18 Recorded pneumococcal 23-valent vaccine 04/22/17 Recorded pneumococcal 23-valent vaccine 12/21/12 Given Medications aspirin 81 mg oral delayed release tablet 81 mg, By Mouth, Daily, # 30 tablet, Refills 11, Tot. Refills 11, Maintenance, 09/12/23 17:42:00 EST, Route to Pharmacy Electronically, [facility] [id number], For blister pack please., 166, cm, 09/12/23 13:54:00 EST, Height, 9... Start Date: 09/12/23 Status: Ordered atorvastatin 40 mg oral tablet 1 tablet = 40 mg, By Mouth, Daily, # 30 tablet, 11 Refills, Maintenance, 09/12/23 17:42:00 EST, Tablet, [place], [place] - [id number], For blister pack please., 166, cm, 09/12/23 13:54:00 EST, Height, 93, kg, 09/06/23 16:15:00 EST, DrMicheal.. Start Date: 09/12/23 Stop Date: 09/06/24 Status: Ordered chlorhexidine topical 0.12% liquid See Instructions, SWISH AND SPIT DO NOT SWALLOW. USE 3-4 X/ DAY, # 473 mL, 0 Refills, Maintenance, 09/25/23 16:56:00 EST, [facility] STORE [facility]08, 30, SWISH AND SPIT DO NOT SWALLOW. USE 3-4 X/ DAY, 166, cm, 09/21/23 11:32:00 EST, Height, 93, kg, 09/14/23 12:3... Start Date: 09/25/23 Status: Ordered docusate sodium 100 mg oral tablet 1 tablet = 100 mg, By Mouth, 2 times a day, PRN for constipation, # 60 tablet, 0 Refills, Maintenance, 09/27/23 13:27:00 EST, Tablet, [facility]/pharmacy #[id number], Partial fill upon patient request if the prescription is for a schedule II opioid drug., 166, cm,... Start Date: 09/27/23 Status: Ordered FLUoxetine 20 mg oral capsule 60 mg, 3, capsule, By Mouth, Daily, TAKE 3 CAPSULES BY MOUTH EVERY DAY IN THE MORNING, # 90 capsule, Refills 11, Tot. Refills 11, Maintenance, 09/12/23 17:44:00 EST, Route to Pharmacy Electronically,[facility] [id number], for... Start Date: 09/12/23 Status: Ordered gabapentin 300 mg oral capsule 300 mg, 1, capsule, By Mouth, 2 times a day, # 60 capsule, Refills 11, Tot. Refills 11, Maintenance, 09/12/23 17:42:00 EST, Route to Pharmacy Electronically, [facility] [id number], For blister pack please., 166, cm, 09/12/23 1... Start Date: 09/12/23 Status: Ordered nitroglycerin 0.4 mg sublingual tablet 1 tablet = 0.4 mg, Sublingual, Every 5 minutes, PRN Chest Pain, # 100 tablet, 0 Refills, Maintenance, 06/08/23 16:23:00 EDT, [id number] upon patient request [...] 0 Refills, Maintenance, 10/22/23 11:37:00 EST, [id number]... Start Date: 10/22/23 Status: Ordered propranolol 20 mg oral tablet 2, tablet, By Mouth, 2 times a day, # 120 tablet, Refills 11, Tot. Refills , Maintenance, 09/12/23 17:42:00 EST, Route to Pharmacy Electronically, [facility] [id number], For blister pack please., 166, cm, 09/12/23 13:54:00 E... Start Date: 09/12/23 Status: Ordered risperiDONE 2 mg oral tablet 4 mg, 2, tablet, By Mouth, Daily at bedtime, Rx'd by psychiatry, # 60 tablet, Refills 11, Tot. Refills 11, Maintenance, 09/12/23 17:44:00 EST, Route to Pharmacy Electronically, [facility] [id number], for blister pack, 166, cm... Start Date: 09/12/23 Status: Ordered tiZANidine 2 mg oral tablet 2 mg, 1, tablet, By Mouth, 3 times a day, Can take two tablets at bedtime. Do not take at the same time as oxycodone., # 90 tablet, Refills 0, Tot. Refills 0, Maintenance, 09/26/23 10:38:00 EST, Route to Pharmacy Electronically, [facility]/pharmacy #[id number], Sp... Start Date: 09/26/23 Status: Ordered traZODone 100 mg oral tablet 50 mg, 0.5, tablet, By Mouth, Daily at bedtime, # 15 tablet, Refills 11, Tot. Refills 11, Maintenance, 09/12/23 17:44:00 EST, Route to Pharmacy Electronically, [facility] [place] [place] - [id number], Partial fill upon patient request if the pr... Start Date: 09/12/23 Status: Ordered Ventolin HFA 108 mcg/inh inhalation aerosol with adapter 2 puffs, Inhalation, 4 times a day, PRN NEEDED FOR WHEEZING, # 18 Gm, 11 Refills, Maintenance, 02/22/23 8:17:00 EDT, [facility]/pharmacy #[id number], 166, cm, 01/18/23 15:56:00 [...] Confirmed Active Health usp, active care coordination PADMINI [facility] [phone] Confirmed Active Fatty infiltration of liver Confirmed Active Tubular adenoma of colon Confirmed Active 1history of this with surgical correction Social History Social History Type Response Smoking Status Former smoker; Other : Quit 2014; entered on: 09/10/17 Sex Patient Care team information Care Team Personnel Name: Elvia Collins RN Position: [facility] RN Member Role: Primary Care Nurse Name: Macarena Lewis RN Position: [facility] RN Member Role: Primary Care Nurse Name: Mallory Lugo RN Position: [facility] RN Member Role: Primary Care Nurse Name: Sima RNCarmen Position: [facility] ED RN W/OE and Tasks Member Role: Primary Care Nurse Name: Dacia Evangelista RN Position: [facility] RN Member Role: Primary Care Nurse Name: Tracey Linares RN Position: [facility] AMB Nurse Member Role: Primary Care Nurse Name: Italia Ortega RN Position: [facility] RN Member Role: Primary Care Nurse Name: Catalina He RN Position: [facility] AMB Nurse Member Role: Primary Care Nurse Name: Jessica Lantigua RN Position: [facility] SN RN Member Role: Primary Care Nurse Name: Catalina Pack RN Position: [facility] SN RN Member Role: Primary Care Nurse Name: Clifford Gerber RN Position: [facility] RN Member Role: Primary Care Nurse Name: Doris Butler RN Position: [facility] RN Member Role: Primary Care Nurse Name: Aziza Poole RN Position: [facility] RN Member Role: Primary Care Nurse Name: Monet Miller RN Position: [facility] RN Member Role: Primary Care Nurse Name: Katheryn Wu RN Position: [facility] SN RN Member Role: Primary Care Nurse Name: Doris Dee RN Position: [facility] RN Member Role: Primary Care Nurse Name: Janae Soto RN Position: [facility] RN Member Role: Primary Care Nurse Name: Daphney Echols LPN Position: [facility] RN Member Role: Primary Care Nurse Name: Nini Odonnell RN Position: [facility] RN Member Role: Primary Care Nurse Name: Jennifer Thakkar RN Position: [facility] RN Member Role: Primary Care Nurse Name: Hyun Ochoa RN Position: [facility] RN Member Role: Primary Care Nurse Name: Yazmin Lay RN Position: [facility] RN Member Role: Primary Care Nurse Name: Ranjana Zavala RN Position: [facility] RN Member Role: Primary Care Nurse Name: Melvi Carter RN Position: [facility] OB RN Member Role: Primary Care Nurse Name: Jackson Rosen RN Position: [facility] RN Member Role: Primary Care Nurse Name: Clarissa Rodriguez RN Position: [facility] RN Supv Member Role: Primary Care Nurse Name: Ophelia Marie RN Position: [facility] RN Member Role: Primary Care Nurse Name: Nolvia Mendes RN Position: [facility] RN Member Role: Primary Care Nurse Name: Tyrone Germain RN Position: S RN Member Role: Primary Care Nurse Name: Adi Rese RN Position: [facility] RN Member Role: Primary Care Nurse Name: Orlando Mcallister RN Position: [facility] RN Member Role: Primary Care Nurse Name: Alonzo Esposito MD Position: [facility] Physician - Primary Care Member Role: PCP Address: Address: [address] [place] [id number]- Name: Doroteo Morrow RN Position: [facility] RN Member Role: Primary Care Nurse Address: Address: [address] [place] [address]- Name: Cassidy Masters RN Position: [facility] RN Member Role: Primary Care Nurse Name: Juancarlos Valente RN Position: [facility] Hospital Learning Design Specialist Member Role: Primary Care Nurse Name: Tran Wiseman RN Position: [facility] RN Member Role: Primary Care Nurse Care Team Related Persons Name: CHELSEY SYLVIA Address: [address] [place] [address] Name: GAGE HUNT Address: [address] [place] [address] Name: JOCELYN HUNT Address: home [address] [place] [address]
--- OUTSIDE RECORDS SUMMARY | 2024-05-24 04:37 | XMS_ITS | Continuity of Care Document ---
Author Organization [facility] Address [address] [place] [address]- Care Team Providers Care Philosophy Faculty Name Role Phone Alonzo Esposito MD Primary Care Physician Encounter [facility] [place] Date(s): 02/29/24 - 03/30/[address] [address]- Attending Physician: AdmLori sandhu Admitting Physician: AdmtrLori [...] influenza virus vaccine, inactivated 12/06/15 Give n [id number] 12y+ bivalent booster vax 11/03/22 Given SARS-CoV-2 mRNA ([id number]-[id number]) vax 01/26/22 Given SARS-CoV-2 mRNA ([id number]-smio-ucdxh) vax 12/28/21 Given pneumococcal 23-valent vaccine 04/08/18 Recorded pneumococcal 23-valent vaccine 04/22/17 Recorded pneumococcal 23-valent vaccine 12/21/12 Given 1Result Comment: [facility] Medications acetaminophen 325 mg oral tablet 650 mg, 2, tablet, By Mouth, Every 6 hours, PRN, # 120 tablet, Refills 0, Tot. Refills 0, Maintenance, for pain, 02/27/24 18:13:00 EDT, Route to Pharmacy Electronically, [facility]/pharmacy #[id number], Partial fill upon patient request if the prescription is for... Start Date: 02/27/24 Status: Ordered amoxicillin 500 mg oral capsule 4 capsule = 2,000 mg, By Mouth, Once, given 1 hour prior to the dental procedure, # 4 capsule, 0 Refills, Soft Stop, 03/18/24 8:57:00 EDT, Capsule, [facility]/pharmacy #[id number], Partial fill upon patient request if the prescription is for a schedule II opioid d... Start Date: 03/18/24 Status: Ordered aspirin 81 mg oral delayed release tablet 81 mg, By Mouth, Daily, # 30 tablet, Refills 11, Tot. Refills 11, Maintenance, 09/12/23 17:42:00 EST, Route to Pharmacy Electronically, [facility] [id number], For blister pack please., 166, cm, 09/12/23 13:54:00 EST, Height, 9... Start Date: 09/12/23 Status: Ordered atorvastatin 40 mg oral tablet 1 tablet = 40 mg, By Mouth, Daily, # 30 tablet, 11 Refills, Maintenance, 09/12/23 17:42:00 EST, Tablet, [place], [place] - [id number], For blister pack please., 166, cm, 09/12/23 13:54:00 EST, Height, 93, kg, 09/06/23 16:15:00 EST, Start Date: 09/12/23 Stop Date: 09/06/24 Status: Ordered diclofenac 1% topical gel 1 application, Topically, 4 times a day, PRN Pain , Mild, not to exceed 16 grams/day/single joint of lower extremities, # 100 Gm, 3 Refills, Maintenance, 11/30/23 9:43:00 EST, Gel, [facility]/pharmacy #[id number], Partial fill upon patient request if the prescript... Start Date: 11/30/23 Status: Ordered FLUoxetine 20 mg oral capsule 60 mg, 3, capsule, By Mouth, Daily, TAKE 3 CAPSULES BY MOUTH EVERY DAY IN THE MORNING, # 90 capsule, Refills 11, Tot. Refills 11, Maintenance, 09/12/23 17:44:00 EST, Route to Pharmacy Electronically,[place], [place] - [id number], for... Start Date: 09/12/23 Status: Ordered gabapentin 800 mg oral tablet 1 tablet = 800 mg, By Mouth, 3 times a day, # 90 tablet, 3 Refills, Maintenance, 02/29/24 9:58:00 EDT, [id number] fill upon patient request if the prescription is for a schedule II opioid drug., 165, cm, 02/29/24 9:45:00 EDT,... Start Date: 02/29/24 Status: Ordered nitroglycerin 0.4 mg sublingual tablet 1 tablet = 0.4 mg, Sublingual, Every 5 minutes, PRN Chest Pain, # 100 tablet, 0 Refills, Maintenance, 06/08/23 16:23:00 EDT, Tablet, [facility]/pharmacy #[id number], Partial fill upon patient request if the prescription is for a schedule II opioid drug., 165, cm,... Start Date: 06/08/23 Status: Ordered oxyCODONE 15 mg oral tablet 1 tablet = 15 mg, By Mouth, Every 6 hours, PRN Pain , Severe, controlled substance agreement., # 120 tablet, 0 Refills, Maintenance, 02/29/24 10:11:00 EDT, Tablet, [facility]/pharmacy #[id number], Partial fill upon patient request if the prescription is for a sche... Start Date: 02/29/24 Status: Ordered risperiDONE 2 mg oral tablet 4 mg, 2, tablet, By Mouth, Daily at bedtime, Rx'd by psychiatry, # 60 tablet, Refills 11, Tot. Refills 11, Maintenance, 09/12/23 17:44:00 EST, Route to Pharmacy Electronically, [place], [place] - [id number], for blister pack, 166, cm... Start Date: 09/12/23 Status: Ordered tiZANidine 2 mg oral tablet 4 mg, 2, tablet, By Mouth, Every 8 hours, # 180 tablet, Refills 3, Tot. Refills 3, Maintenance, 02/29/24 9:59:00 EDT, Route to Pharmacy Electronically, [facility]/pharmacy #[id number], Partial fill upon patient request if the prescription is for a schedule II opio... Start Date: 02/29/24 Status: Ordered traZODone 100 mg oral tablet 50 mg, 0.5, tablet, By Mouth, Daily at bedtime, # 15 tablet, Refills 11, Tot. Refills 11, Maintenance, 09/12/23 17:44:00 EST, Route to Pharmacy Electronically, [facility] [place], [place] - [id number], Partial fill upon patient request if the pr... Start Date: 09/12/23 Status: Ordered Ventolin HFA 108 mcg/inh inhalation aerosol with adapter 2 puffs, Inhalation, 4 times a day, PRN NEEDED FOR WHEEZING, # 18 Gm, 11 Refills, Maintenance, 02/22/23 8:17:00 EDT, [facility]/pharmacy #[id number], 166, cm, 01/18/23 15:56:00 [...] Active Right knee pain Confirmed Active Health ch[facility], active care coordination PADMINI Mata [phone] Confirmed Active Cervical stenosis of spine Confirmed [...] Event Display: Consult Note Cardiology Authored Date: Radiology * Event Display: [place] Nuclear Medicine Authored Date: Note * Elvia Metcalf RN: PERFORM, SIGN, VERIFY Event Display: Case Management Discharge Plan Authored Date: Patient: JAMARCUS BARBOSA Age: 49 years Sex: Male : 1970 Associated Diagnoses: None Author: Elvia Metcalf RN Unable to reach pt for follow up call. Call placed to Pt. [phone] the telephone # you have dialed is temporarily not in service . Centricity indicates Pt. has pending PCP appt. 10/16/19 9:00am/Dr. Hernandez. Patient Care team information Care Team Personnel Name: Elvia Collins RN Position: [facility] RN Member Role: Primary Care Nurse Name: Macarena Lewis RN Position: [facility] RN Member Role: Primary Care Nurse Name: Mallory Lugo RN Position: [facility] RN Member Role: Primary Care Nurse Name: Carmen Gao RN Position: [facility] ED RN W/OE and Tasks Member Role: Primary Care Nurse Name: Dacia Evangelista RN Position: [facility] RN Member Role: Primary Care Nurse Name: Tracey Linares RN Position: [facility] AMB Nurse Member Role: Primary Care Nurse Name: Italia Ortega RN Position: [facility] RN Member Role: Primary Care Nurse Name: Catalina He RN Position: [facility] AMB Nurse Member Role: Primary Care Nurse Name: Cortez Golden RN Position: [facility] RN Member Role: Primary Care Nurse Name: Jessica Lantigua RN Position: [facility] RN Member Role: Primary Care Nurse Name: Catalina Pack RN Position: [facility] RN Member Role: Primary Care Nurse Name: Clifford Gerber RN Position: [facility] RN Member Role: Primary Care Nurse Name: Doris Butler RN Position: [facility] RN Member Role: Primary Care Nurse Name: Aziza Poole RN Position: [facility] RN Member Role: Primary Care Nurse Name: Katheryn Wu RN Position: [facility] SN RN Member Role: Primary Care Nurse Name: Doris Dee RN Position: [facility] RN Member Role: Primary Care Nurse Name: Janae Soto RN Position: [facility] RN Member Role: Primary Care Nurse Name: Daphney Echols LPN Position: [facility] RN Member Role: Primary Care Nurse Name: Nini Odonnell RN Position: [facility] RN Member Role: Primary Care Nurse Name: Jennifer Thakkar RN Position: [facility] RN Member Role: Primary Care Nurse Name: Hyun Ochoa RN Position: [facility] RN Member Role: Primary Care Nurse Name: Ruth Lay RN Position: [facility] RN Member Role: Primary Care Nurse Name: Ranjana Zavala RN Position: [facility] RN Member Role: Primary Care Nurse Name: Melvi Carter RN Position: [facility] OB RN Member Role: Primary Care Nurse Name: Jackson Rosen RN Position: [facility] RN Member Role: Primary Care Nurse Name: Clarissa Rodriguez RN Position: [facility] RN Supv Member Role: Primary Care Nurse Name: Ophelia Marie RN Position: [facility] SN RN Member Role: Primary Care Nurse Name: Nolvia Mendes RN Position: [facility] RN Member Role: Primary Care Nurse Name: Tyrone Germain RN Position: [facility] RN Member Role: Primary Care Nurse Name: Adi Rees RN Position: [facility] RN Member Role: Primary Care Nurse Name: Alonzo Esposito MD Position: [facility] Physician - Primary Care Member Role: PCP Address: Address: [address] [place] [id number]- Name: Cassidy Masters RN Position: [facility] RN Member Role: Primary Care Nurse Name: Juancarlos Valente RN Position: [facility] Hospital Hand Bender Member Role: Primary Care Nurse Name: Tran Wiseman RN Position: [facility] RN Member Role: Primary Care Nurse Care Team Related Persons Name: SYLVIA BARBOSA Address: [address] [place] [address] Name: GAGE HUNT Address: [address] [place] [address] Name: JOCELYN HUNT Address: [address] [place] [address]
--- OUTSIDE RECORDS SUMMARY | 2024-05-24 04:37 | XMS_ITS | Continuity of Care Document ---
Author Organization [facility] Address [address] [place] [address]- Care Team Providers Care Financial Sales Associate Name Role Phone Alonzo Esposito MD Primary Care Physician Encounter [facility] Date(s): 10/19/23 - 11/18/[address] [id number] Allergies, Adverse Reactions, [...] influenza virus vaccine, inactivated 12/06/15 Give n [id number] 12y+ bivalent booster vax 11/03/22 Given SARS-CoV-2 mRNA ([id number]) vax 01/26/22 Given SARS-CoV-2 mRNA ([id number]-[id number]) vax 12/28/21 Given pneumococcal 23-valent vaccine 04/08/18 Recorded pneumococcal 23-valent vaccine 04/22/17 Recorded pneumococcal 23-valent vaccine 12/21/12 Given Medications aspirin 81 mg oral delayed release tablet 81 mg, By Mouth, Daily, # 30 tablet, Refills 11, Tot. Refills 11, Maintenance, 09/12/23 17:42:00 EST, Route to Pharmacy Electronically, [facility] [id number], For blister pack please., 166, cm, 09/12/23 13:54:00 EST, Height, 9... Start Date: 09/12/23 Status: Ordered atorvastatin 40 mg oral tablet 1 tablet = 40 mg, By Mouth, Daily, # 30 tablet, 11 Refills, Maintenance, 09/12/23 17:42:00 EST, Tablet, [place], [place] - [id number], For blister pack please., 166, cm, 09/12/23 13:54:00 EST, Height, 93, kg, 09/06/23 16:15:00 EST, Start Date: 09/12/23 Stop Date: 09/06/24 Status: Ordered chlorhexidine topical 0.12% liquid See Instructions, SWISH AND SPIT DO NOT SWALLOW. USE 3-4 X/ DAY, # 473 mL, 0 Refills, Maintenance, 09/25/23 16:56:00 EST, [facility], 30, SWISH AND SPIT DO NOT SWALLOW. USE 3-4 X/ DAY, 166, cm, 09/21/23 11:32:00 EST, Height, 93, kg, 09/14/23 12:3... Start Date: 09/25/23 Status: Ordered docusate sodium 100 mg oral tablet 1 tablet = 100 mg, By Mouth, 2 times a day, PRN for constipation, # 60 tablet, 0 Refills, Maintenance, 09/27/23 13:27:00 EST, Tablet, [facility] #[id number], Partial fill upon patient request if the prescription is for a schedule II opioid drug., 166, cm,... Start Date: 09/27/23 Status: Ordered FLUoxetine 20 mg oral capsule 60 mg, 3, capsule, By Mouth, Daily, TAKE 3 CAPSULES BY MOUTH EVERY DAY IN THE MORNING, # 90 capsule, Refills 11, Tot. Refills 11, Maintenance, 09/12/23 17:44:00 EST, Route to Pharmacy Electronically,[facility] [id number], for... Start Date: 09/12/23 Status: Ordered gabapentin 300 mg oral capsule 300 mg, 1, capsule, By Mouth, 2 times a day, # 60 capsule, Refills 11, Tot. Refills 11, Maintenance, 09/12/23 17:42:00 EST, Route to Pharmacy Electronically, [facility] [id number], For blister pack please., 166, cm, 09/12/23 1... Start Date: 09/12/23 Status: Ordered nitroglycerin 0.4 mg sublingual tablet 1 tablet = 0.4 mg, Sublingual, Every 5 minutes, PRN Chest Pain, # 100 tablet, 0 Refills, Maintenance, 06/08/23 16:23:00 EDT, [id number] upon patient request if [...] 0 Refills, Maintenance, 10/22/23 11:37:00 EST, [id number]... Start Date: 10/22/23 Status: Ordered propranolol 20 mg oral tablet 2, tablet, By Mouth, 2 times a day, # 120 tablet, Refills 11, Tot. Refills 11, Maintenance, 09/12/23 17:42:00 EST, Route to Pharmacy Electronically, [facility] [id number], For blister pack please., 166, cm, 09/12/23 13:54:00 E... Start Date: 09/12/23 Status: Ordered risperiDONE 2 mg oral tablet 4 mg, 2, tablet, By Mouth, Daily at bedtime, Rx'd by psychiatry, # 60 tablet, Refills 11, Tot. Refills 11, Maintenance, 09/12/23 17:44:00 EST, Route to Pharmacy Electronically, [facility] [id number], for blister pack, 166, cm... Start Date: 09/12/23 Status: Ordered tiZANidine 2 mg oral tablet 2 mg, 1, tablet, By Mouth, 3 times a day, Can take two tablets at bedtime. Do not take at the same time as oxycodone., # 90 tablet, Refills 0, Tot. Refills 0, Maintenance, 09/26/23 10:38:00 EST, Route to Pharmacy Electronically, [facility] #[id number], Sp... Start Date: 09/26/23 Status: Ordered traZODone 100 mg oral tablet 50 mg, 0.5, tablet, By Mouth, Daily at bedtime, # 15 tablet, Refills 11, Tot. Refills 11, Maintenance, 09/12/23 17:44:00 EST, Route to Pharmacy Electronically, [facility] [place], [place] - [id number], Partial fill upon patient request if the pr... Start Date: 09/12/23 Status: Ordered Ventolin HFA 108 mcg/inh inhalation aerosol with adapter 2 puffs, Inhalation, 4 times a day, PRN NEEDED FOR WHEEZING, # 18 Gm, 11 Refills, Maintenance, 02/22/23 8:17:00 EDT, [facility] #[id number], 166, cm, 01/18/23 15:56:00 EDT, Height, [...] Active Obstructive sleep apnea Confirmed [facility], active care coordination PADMINI Mata [phone] Confirmed Active Severe obesity (BMI 35.0-39.9) with [...] Care Nurse Name: Macarena Lewis RN Position: [facility] RN Member Role: Primary Care Nurse Name: Mallory Lugo RN Position: [facility] RN Member Role: Primary Care Nurse Name: Carmen Gao RN Position: [facility] ED RN W/OE and Tasks Member Role: Primary Care Nurse Name: Dacia Evangelista RN Position: [facility] RN Member Role: Primary Care Nurse Name: Tracey Linares RN Position: [facility] AMB Nurse Member Role: Primary Care Nurse Name: Italia Ortega RN Position: [facility] RN Member Role: Primary Care Nurse Name: Catalina He RN Position: [facility] AMB Nurse Member Role: Primary Care Nurse Name: Cortez Golden RN Position: [facility] RN Member Role: Primary Care Nurse Name: Jessica Lantigua RN Position: [facility] SN RN Member Role: Primary Care Nurse Name: Catalina Pack RN Position: [facility] SN RN Member Role: Primary Care Nurse Name: Cliffodr Gerber RN Position: [facility] RN Member Role: Primary Care Nurse Name: Doris Butler RN Position: [facility] RN Member Role: Primary Care Nurse Name: Aziza Poole RN Position: [facility] RN Member Role: Primary Care Nurse Name: Monet Miller RN Position: [facility] RN Member Role: Primary Care Nurse Name: Katheryn Wu RN Position: [facility] RN Member Role: Primary Care Nurse Name: Doris Dee RN Position: [facility] RN Member Role: Primary Care Nurse Name: Janae Soto RN Position: [facility] RN Member Role: Primary Care Nurse Name: Daphney Echols LPN Position: [facility] RN Member Role: Primary Care Nurse Name: Nini Odonnell RN Position: [facility] RN Member Role: Primary Care Nurse Name: Jennifer Thakkar RN Position: [facility] RN Member Role: Primary Care Nurse Name: Hyun Ochoa RN Position: [facility] RN Member Role: Primary Care Nurse Name: Yazmin Lay RN Position: [facility] RN Member Role: Primary Care Nurse Name: Ranjana Zavala RN Position: [facility] RN Member Role: Primary Care Nurse Name: Melvi Carter RN Position: [facility] OB RN Member Role: Primary Care Nurse Name: Jackson Rosen RN Position: [facility] RN Member Role: Primary Care Nurse Name: Clarissa Rodriguez RN Position: [facility] RN Supv Member Role: Primary Care Nurse Name: Ophelia Marie RN Position: [facility] RN Member Role: Primary Care Nurse Name: Nolvia Mendes RN Position: [facility] RN Member Role: Primary Care Nurse Name: Tyrone Germain RN Position: [facility] RN Member Role: Primary Care Nurse Name: Adi Rees RN Position: [facility] RN Member Role: Primary Care Nurse Name: Alonzo Esposito MD Position: [facility] Physician - Primary Care Member Role: PCP Address: Address: [address] [place] [id number]- [place] Name: Doroteo Morrow RN Position: [facility] RN Member Role: Primary Care Nurse Address: Address: [address] [place] [id number]- Name: Cassidy Masters RN Position: [facility] RN Member Role: Primary Care Nurse Name: Juancarlos Valente RN Position: [facility] Hospital Foam Caster Member Role: Primary Care Nurse Name: Tran Wiseman RN Position: [facility] RN Member Role: Primary Care Nurse Care Team Related Persons Name: SYLVIA BARBOSA Address: home [address] [place] [id number] Name: GAGE HUNT Address: [address] [place] [address] Name: JOCELYN HUNT Address: home [address] [place] [address]
--- OUTSIDE RECORDS SUMMARY | 2024-05-24 04:37 | XMS_ITS | Continuity of Care Document ---
Author Organization [facility] ter Address [address] [place] [address]- Care Team Providers Care Bark Peeler Name Role Phone Alonzo Esposito MD Primary Care Physician Encounter [facility] [place] Date(s): 02/27/24 - 02/27/[address] [address]- Encounter Diagnosis Back pain(Final) - 02/27/24 Syncope(Final) - 02/27/24 Discharge Disposition: A-D/C Home Attending Physician: Kaleb Vega MD Admitting Physician: Kaleb Vega MD Referring Physician: Not on Staff, Referring [...] influenza virus vaccine, inactivated 12/06/15 Give n [id number] 12y+ bivalent booster vax 11/03/22 Given SARS-CoV-2 mRNA ([id number]) vax 01/26/22 Given SARS-CoV-2 mRNA ([id number]-[id number]) vax 12/28/21 Given pneumococcal 23-valent vaccine 04/08/18 Recorded pneumococcal 23-valent vaccine 04/22/17 Recorded pneumococcal 23-valent vaccine 12/21/12 Given 1Result Comment: [facility] acetaminophen 325 mg oral tablet 650 mg, 2, tablet, By Mouth, Every 6 hours, PRN, # 120 tablet, Refills 0, Tot. Refills 0, Maintenance, for pain, 02/27/24 18:13:00 EDT, Route to Pharmacy Electronically, [facility]/pharmacy #[id number], Partial fill upon patient request if the prescription is for... Start Date: 02/27/24 Status: Ordered aspirin 81 mg oral delayed release tablet 81 mg, By Mouth, Daily, # 30 tablet, Refills 11, Tot. Refills 11, Maintenance, 09/12/23 17:42:00 EST, Route to Pharmacy Electronically, [facility] [id number], For blister pack please., 166, cm, 09/12/23 13:54:00 EST, Height, 9... Start Date: 09/12/23 Status: Ordered atorvastatin 40 mg oral tablet 1 tablet = 40 mg, By Mouth, Daily, # 30 tablet, 11 Refills, Maintenance, 09/12/23 17:42:00 EST, Tablet, [facility] [phone], For blister pack please., 166, cm, 09/12/23 13:54:00 EST, Height, 93, kg, 09/06/23 16:15:00 EST, Start Date: 09/12/23 Stop Date: 09/06/24 Status: Ordered diclofenac 1% topical gel 1 application, Topically, 4 times a day, PRN Pain , Mild, not to exceed 16 grams/day/single joint of lower extremities, # 100 Gm, 3 Refills, Maintenance, 11/30/23 9:43:00 EST, Gel, [facility]/pharmacy #[id number], Partial fill upon patient request if the prescript... Start Date: 11/30/23 Status: Ordered Dilaudid Inj 1 mg, Injection, IV Push Slowly, Every 15 minutes for 3 doses/times, PRN for Pain , Moderate, and SBP greater than 100, STAT, 02/27/24 12:38:00 EDT, Stop date 02/28/24 0:00:00 EDT Start Date: 02/27/24 Stop Date: 02/28/24 Status: Completed FLUoxetine 20 mg oral capsule 60 mg, 3, capsule, By Mouth, Daily, TAKE 3 CAPSULES BY MOUTH EVERY DAY IN THE MORNING, # 90 capsule, Refills 11, Tot. Refills 11, Maintenance, 09/12/23 17:44:00 EST, Route to Pharmacy Electronically,[place], [place] - [id number], for... Start Date: 09/12/23 Status: Ordered gabapentin 600 mg oral tablet = 600 mg, By Mouth, 2 times a day, # 60 tablet, 4 Refills, Maintenance, 11/30/23 9:35:00 EST, Tablet, [facility]/pharmacy #[id number], Partial fill upon patient request if the prescription is for a schedule II opioid drug.Please note dose change for pill pack., 16... Start Date: 11/30/23 Status: Ordered ibuprofen 200 mg oral capsule 2 capsule = 400 mg, By Mouth, Every 6 hours, PRN for pain, # 120 capsule, 0 Refills, Maintenance, 02/27/24 18:13:00 EDT, Capsule, [facility]/pharmacy #[id number], Partial fill upon patient request if the prescription is for a schedule II opioid drug., 165, cm, 05/... Start Date: 02/27/24 Status: Ordered nitroglycerin 0.4 mg sublingual tablet 1 tablet = 0.4 mg, Sublingual, Every 5 minutes, PRN Chest Pain, # 100 tablet, 0 Refills, Maintenance, 06/08/23 16:23:00 EDT, Tablet, [facility]/pharmacy #[id number], Partial fill upon patient request if the prescription is for a schedule II opioid drug., 165, cm,... Start Date: 06/08/23 Status: Ordered oxyCODONE 15 mg oral tablet 1 tablet = 15 mg, By Mouth, Every 6 hours, PRN Pain , Severe, controlled substance agreement., # 120 tablet, 0 Refills, Maintenance, 02/07/24 10:09:00 EDT, Tablet, [facility]/pharmacy #[id number], Partial fill upon patient request if the prescription is for a sche... Start Date: 02/07/24 Status: Ordered propranolol 20 mg oral tablet 2, tablet, By Mouth, 2 times a day, # 120 tablet, Refills 11, Tot. Refills 11, Maintenance, 09/12/23 17:42:00 EST, Route to Pharmacy Electronically, [facility] [id number], For blister pack please., 166, cm, 09/12/23 13:54:00 E... Start Date: 09/12/23 Status: Ordered risperiDONE 2 mg oral tablet 4 mg, 2, tablet, By Mouth, Daily at bedtime, Rx'd by psychiatry, # 60 tablet, Refills 11, Tot. Refills 11, Maintenance, 09/12/23 17:44:00 EST, Route to Pharmacy Electronically, [facility] [phone], for blister pack, 166, cm... Start Date: 09/12/23 Status: Ordered traZODone 100 mg oral tablet 50 mg, 0.5, tablet, By Mouth, Daily at bedtime, # 15 tablet, Refills 11, Tot. Refills 11, Maintenance, 09/12/23 17:44:00 EST, Route to Pharmacy Electronically, [facility] [id number], Partial fill upon patient request if the [...] Active Right knee pain Confirmed Active Health long term, active care coordination PADMINI Cruz [facility] [phone] Confirmed Active Cervical stenosis of spine Confirmed Active Fatty infiltration of liver Confirmed Active Tubular adenoma of colon Confirmed Active 1history of this with surgical correction Results Radiology Reports * Exam Date Time Procedure Performing Provider Status 02/27/24 4:28 PM Chest 2 Views Frontal and Lat Ilir Layton; Auth (Verified) Notes: (Chest 2 Views Frontal and Lat) Reason For Exam: Shortness of Breath, Fever;Other: RESULT: Chest 2 Views Frontal and Lat Chest 2 Views Frontal and Lat Hx of Present Illness: pt c o all over body weakness, pain. also reports 2 x syncopal episodes today. currently c o AVILES, all over pain in my bones, generalized weakness.; Reason: Other:; Shortness of Breath, Fever; Clinical Question(s): Pneumonia COMPARISON: Multiple priors, most recent comparison 09/13/2023. FINDINGS: LINES AND TUBES: None. LUNGS AND PLEURA: Clear lungs. Normal pulmonary vascularity. No pleural effusion. No pneumothorax. HEART, MEDIASTINUM AND YANETH: Heart is normal in size. Normal mediastinal and hilar contour. BONES AND SOFT TISSUES: No acute abnormality. Partially imaged cervical spine fusion hardware. There is multilevel degenerative endplate spurring. IMPRESSION: No acute abnormality. WSN: [id number] Ordering Physician: Kaleb Vega Dictated By: Janki Sagastume MD Dictated Date/Time: 02/27/24 4:30 pm Reviewed By: Janki Sagastume MD Signed By: Janki Sagastume MD Signed Date/Time: 02/27/24 4:30 pm Transcribed By: HARPAL Transcribed Date/Time: 02/27/24 4:29 pm * Exam Date Time Procedure Performing Provider Status 02/27/24 3:56 PM MRI Thoracic Spine W+W/O Contrast Hiral Garner; Auth (Verified) Notes: (MRI Thoracic Spine W+W/O Contrast) Reason For Exam: Epidural abscess;Other: RESULT: MRI Thoracic Spine W+W/O Contrast MRI Cervical Spine W+W/O Contrast, MRI Lumbar Spine W+W/O Contrast, MRI Thoracic Spine W+W/O Contrast INDICATION: Hx of Present Illness: pt c o all over body weakness, pain. also reports 2 x syncopal episodes today. currently c o AVILES, all over pain in my bones, generalized weakness.; Reason: Other:;Epidural abscess; Clinical Question(s): Epidural Empyema; Special Instructions: obtain within two hours; Order Comment: Please see Reference Text for complete list of contraindications Epidural Empyema TECHNIQUE: MRI of the cervical, thoracic, and lumbar spine was performed without and with intravenous contrast utilizing the departmental epidural abscess protocol. 20 mL of Clariscan was administered intravenously. The study was not tailored to evaluation of degenerative change per clinical indication. COMPARISON: MRI of the cervical spine 09/08/2023 and MRI of the lumbar spine 03/17/2023. CTA of the head and neck 09/13/2023 FINDINGS: Multiple images are degraded by patient motion which diminishes detail, and interpretation was madein light of this technical confine. MRI OF THE CERVICAL SPINE ALIGNMENT, VERTEBRAE, MARROW, AND DISCS: Reversal of the cervical lordosis is again noted. No significant subluxation is noted. The cervical vertebral bodies are normal in height. Since the prior examination, the patient has undergone posterior cervical decompression at C3, C4, C5, and C6. Susceptibility artifact from facet joint screws are present bilaterally. There is subtle T2 bright signal of the posterior C3-C4 and C4-C5 discs with enhancement. The adjacent cervical endplates and vertebral bodies are normal in signal. POSTERIOR FOSSA AND CORD: The visualized posterior cranial fossa structures and cervicomedullary junction are normal. There is no abnormal enhancement. Distortion artifact from posterior spinal hardware degrades multiple images. There is no cord compression, and no convincing cervical spinal cord signal abnormality is noted. No discrete epidural fluid collection is suspected. PARASPINAL TISSUES: The paraspinal soft tissues are distorted and partially obscured by distortion artifact from surgical hardware. There is enhancement of the paraspinal soft tissues adjacent to the C2-C3 facet joint. Additional facet joints cannot be accurately assessed due to distortion artifact. MRI OF THE THORACIC SPINE ALIGNMENT, VERTEBRAE, MARROW, AND DISCS: The thoracic alignment is normal. The thoracic vertebral bodies are normal in height. Mild Modic type I endplate change on the right at T4-T5. No significant loss of thoracic disc space height or abnormal fluid signal. CORD: There is no thoracic spinal cord compression or convincing cord signal abnormality on the sagittal T2-weighted images. The axial T2 fat saturated images are degraded by motion. PARASPINAL TISSUES: No definite paraspinal fluid collection or paraspinal signal abnormality. At T8-T9, there is a small left paracentral disc protrusion minimally indenting the ventral thecal sac. At T11-T12, there is a small right paracentral disc protrusion minimally indenting the ventral thecal sac. MRI OF THE LUMBAR SPINE ALIGNMENT, VERTEBRAE, MARROW, AND DISCS: No significant subluxation is present, and the lumbar vertebral bodies are normal in height. No lumbar marrow edema. A T1 low and T2 bright focus within the anterior L4 vertebral body enhances and is similar in size. This may represent a lipid poor hemangioma. The lumbar discs are similar in height, and marginal spurring is present at multiple levels. CONUS: The conus terminates at L1-L2. No epidural fluid collection or abnormal leptomeningeal enhancement. PARASPINAL TISSUES: The paraspinal soft tissues and visualized retroperitoneal structures are unremarkable. L1-L2: Mild facet arthrosis. No central canal or foraminal stenosis. L2-L3: Foraminal disc-osteophyte complexes. No new central canal stenosis. Mild foraminal narrowing. No significant overall change. L3-L4: Bilateral foraminal disc-osteophyte complexes. No new central canal stenosis. At least moderate right and mild left foraminal narrowing. Crowding/compression of the right L3 nerve roots. No significant change. L4-L5: Concentric disc bulge. Bilateral foraminal annular tears. Facet arthrosis and ligamentum flavum infolding. Moderate central canal stenosis, not significantly changed. At least moderate right and mild-moderate left foraminal stenosis. Continue crowding of the exiting right L4 nerve roots. L5-S1: Right laminotomy defect. Posterior disc-osteophyte complex asymmetric to the right. Right greater than left facet arthrosis. No new significant central canal narrowing. Severe right and mild-moderate left foraminal stenosis. Continued compression of the right L5 nerve roots. IMPRESSION: 1. Status post posterior decompression and posterior cervical fusion at C3, C4, C5, and C6. Nonspecific T2 bright signal and enhancement of the posterior C3-C4 and C4-C5 discs without marrow signal within the adjacent C3, C4, and C5 vertebral bodies. Nonspecific enhancement within the paraspinal soft tissues adjacent to the C2-C3 facet joints. This is of indeterminate etiology, but could be related to previous surgery or infection. If there is strong clinical concern for osteomalacia/discitis, correlation with inflammatory markers and short-term follow-up imaging is recommended. 2. No evidence of osteomyelitis/discitis or septic facet joint arthritis of the thoracic and lumbarspine. 3. Degenerative and postoperative changes of the lumbar spine. No cauda equina compression. 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 4. No epidural fluid collection of the cervical, thoracic, and lumbar spine. WSN: [id number] Ordering Physician: Kaleb Vega Dictated By: Zachery Bejarano MD Dictated Date/Time: 02/27/24 4:37 pm Reviewed By: aZchery Bejarano MD Signed By: Zachery Bejarano MD Signed Date/Time: 02/27/24 4:37 pm Transcribed By: HARPAL Transcribed Date/Time: 02/27/24 4:07 pm * Exam Date Time Procedure Performing Provider Status 02/27/24 3:56 PM MRI Lumbar Spine W+W/O Contrast Hiral Bliss; Auth (Verified) Notes: (MRI Lumbar Spine W+W/O Contrast) Reason For Exam: Epidural abscess;Other: RESULT: MRI Lumbar Spine W+W/O Contrast MRI Cervical Spine W+W/O Contrast, MRI Lumbar Spine W+W/O Contrast, MRI Thoracic Spine W+W/O Contrast INDICATION: Hx of Present Illness: pt c o all over body weakness, pain. also reports 2 x syncopal episodes today. currently c o AVILES, all over pain in my bones, generalized weakness.; Reason: Other:;Epidural abscess; Clinical Question(s): Epidural Empyema; Special Instructions: obtain within two hours; Order Comment: Please see Reference Text for complete list of contraindications Epidural Empyema TECHNIQUE: MRI of the cervical, thoracic, and lumbar spine was performed without and with intravenous contrast utilizing the departmental epidural abscess protocol. 20 mL of Clariscan was administered intravenously. The study was not tailored to evaluation of degenerative change per clinical indication. COMPARISON: MRI of the cervical spine 09/08/2023 and MRI of the lumbar spine 03/17/2023. CTA of the head and neck 09/13/2023 FINDINGS: Multiple images are degraded by patient motion which diminishes detail, and interpretation was madein light of this technical confine. MRI OF THE CERVICAL SPINE ALIGNMENT, VERTEBRAE, MARROW, AND DISCS: Reversal of the cervical lordosis is again noted. No significant subluxation is noted. The cervical vertebral bodies are normal in height. Since the prior examination, the patient has undergone posterior cervical decompression at C3, C4, C5, and C6. Susceptibility artifact from facet joint screws are present bilaterally. There is subtle T2 bright signal of the posterior C3-C4 and C4-C5 discs with enhancement. The adjacent cervical endplates and vertebral bodies are normal in signal. POSTERIOR FOSSA AND CORD: The visualized posterior cranial fossa structures and cervicomedullary junction are normal. There is no abnormal enhancement. Distortion artifact from posterior spinal hardware degrades multiple images. There is no cord compression, and no convincing cervical spinal cord signal abnormality is noted. No discrete epidural fluid collection is suspected. PARASPINAL TISSUES: The paraspinal soft tissues are distorted and partially obscured by distortion artifact from surgical hardware. There is enhancement of the paraspinal soft tissues adjacent to the C2-C3 facet joint. Additional facet joints cannot be accurately assessed due to distortion artifact. MRI OF THE THORACIC SPINE ALIGNMENT, VERTEBRAE, MARROW, AND DISCS: The thoracic alignment is normal. The thoracic vertebral bodies are normal in height. Mild Modic type I endplate change on the right at T4-T5. No significant loss of thoracic disc space height or abnormal fluid signal. CORD: There is no thoracic spinal cord compression or convincing cord signal abnormality on the sagittal T2-weighted images. The axial T2 fat saturated images are degraded by motion. PARASPINAL TISSUES: No definite paraspinal fluid collection or paraspinal signal abnormality. At T8-T9, there is a small left paracentral disc protrusion minimally indenting the ventral thecal sac. At T11-T12, there is a small right paracentral disc protrusion minimally indenting the ventral thecal sac. MRI OF THE LUMBAR SPINE ALIGNMENT, VERTEBRAE, MARROW, AND DISCS: No significant subluxation is present, and the lumbar vertebral bodies are normal in height. No lumbar marrow edema. A T1 low and T2 bright focus within the anterior L4 vertebral body enhances and is similar in size. This may represent a lipid poor hemangioma. The lumbar discs are similar in height, and marginal spurring is present at multiple levels. CONUS: The conus terminates at L1-L2. No epidural fluid collection or abnormal leptomeningeal enhancement. PARASPINAL TISSUES: The paraspinal soft tissues and visualized retroperitoneal structures are unremarkable. L1-L2: Mild facet arthrosis. No central canal or foraminal stenosis. L2-L3: Foraminal disc-osteophyte complexes. No new central canal stenosis. Mild foraminal narrowing. No significant overall change. L3-L4: Bilateral foraminal disc-osteophyte complexes. No new central canal stenosis. At least moderate right and mild left foraminal narrowing. Crowding/compression of the right L3 nerve roots. No significant change. L4-L5: Concentric disc bulge. Bilateral foraminal annular tears. Facet arthrosis and ligamentum flavum infolding. Moderate central canal stenosis, not significantly changed. At least moderate right and mild-moderate left foraminal stenosis. Continue crowding of the exiting right L4 nerve roots. L5-S1: Right laminotomy defect. Posterior disc-osteophyte complex asymmetric to the right. Right greater than left facet arthrosis. No new significant central canal narrowing. Severe right and mild-moderate left foraminal stenosis. Continued compression of the right L5 nerve roots. IMPRESSION: 1. Status post posterior decompression and posterior cervical fusion at C3, C4, C5, and C6. Nonspecific T2 bright signal and enhancement of the posterior C3-C4 and C4-C5 discs without marrow signal within the adjacent C3, C4, and C5 vertebral bodies. Nonspecific enhancement within the paraspinal soft tissues adjacent to the C2-C3 facet joints. This is of indeterminate etiology, but could be related to previous surgery or infection. If there is strong clinical concern for osteomalacia/discitis, correlation with inflammatory markers and short-term follow-up imaging is recommended. 2. No evidence of osteomyelitis/discitis or septic facet joint arthritis of the thoracic and lumbarspine. 3. Degenerative and postoperative changes of the lumbar spine. No cauda equina compression. 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 4. No epidural fluid collection of the cervical, thoracic, and lumbar spine. WSN: [id number] Ordering Physician: Kaleb Vega Dictated By: Zachery Bejarano MD Dictated Date/Time: 02/27/24 4:37 pm Reviewed By: Zachery Bejarano MD Signed By: Zachery Bejarano MD Signed Date/Time: 02/27/24 4:37 pm Transcribed By: HARPAL Transcribed Date/Time: 02/27/24 4:07 pm * Exam Date Time Procedure Performing Provider Status 02/27/24 3:56 PM MRI Cervical Spine W+W/O Contrast Eusebia elida, Hiral Rolanda; Auth (Verified) Notes: (MRI Cervical Spine W+W/O Contrast) Reason For Exam: Epidural abscess;Other: RESULT: MRI Cervical Spine W+W/O Contrast MRI Cervical Spine W+W/O Contrast, MRI Lumbar Spine W+W/O Contrast, MRI Thoracic Spine W+W/O Contrast INDICATION: Hx of Present Illness: pt c o all over body weakness, pain. also reports 2 x syncopal episodes today. currently c o AVILES, all over pain in my bones, generalized weakness.; Reason: Other:;Epidural abscess; Clinical Question(s): Epidural Empyema; Special Instructions: obtain within two hours; Order Comment: Please see Reference Text for complete list of contraindications Epidural Empyema TECHNIQUE: MRI of the cervical, thoracic, and lumbar spine was performed without and with intravenous contrast utilizing the departmental epidural abscess protocol. 20 mL of Clariscan was administered intravenously. The study was not tailored to evaluation of degenerative change per clinical indication. COMPARISON: MRI of the cervical spine 09/08/2023 and MRI of the lumbar spine 03/17/2023. CTA of the head and neck 09/13/2023 FINDINGS: Multiple images are degraded by patient motion which diminishes detail, and interpretation was madein light of this technical confine. MRI OF THE CERVICAL SPINE ALIGNMENT, VERTEBRAE, MARROW, AND DISCS: Reversal of the cervical lordosis is again noted. No significant subluxation is noted. The cervical vertebral bodies are normal in height. Since the prior examination, the patient has undergone posterior cervical decompression at C3, C4, C5, and C6. Susceptibility artifact from facet joint screws are present bilaterally. There is subtle T2 bright signal of the posterior C3-C4 and C4-C5 discs with enhancement. The adjacent cervical endplates and vertebral bodies are normal in signal. POSTERIOR FOSSA AND CORD: The visualized posterior cranial fossa structures and cervicomedullary junction are normal. There is no abnormal enhancement. Distortion artifact from posterior spinal hardware degrades multiple images. There is no cord compression, and no convincing cervical spinal cord signal abnormality is noted. No discrete epidural fluid collection is suspected. PARASPINAL TISSUES: The paraspinal soft tissues are distorted and partially obscured by distortion artifact from surgical hardware. There is enhancement of the paraspinal soft tissues adjacent to the C2-C3 facet joint. Additional facet joints cannot be accurately assessed due to distortion artifact. MRI OF THE THORACIC SPINE ALIGNMENT, VERTEBRAE, MARROW, AND DISCS: The thoracic alignment is normal. The thoracic vertebral bodies are normal in height. Mild Modic type I endplate change on the right at T4-T5. No significant loss of thoracic disc space height or abnormal fluid signal. CORD: There is no thoracic spinal cord compression or convincing cord signal abnormality on the sagittal T2-weighted images. The axial T2 fat saturated images are degraded by motion. PARASPINAL TISSUES: No definite paraspinal fluid collection or paraspinal signal abnormality. At T8-T9, there is a small left paracentral disc protrusion minimally indenting the ventral thecal sac. At T11-T12, there is a small right paracentral disc protrusion minimally indenting the ventral thecal sac. MRI OF THE LUMBAR SPINE ALIGNMENT, VERTEBRAE, MARROW, AND DISCS: No significant subluxation is present, and the lumbar vertebral bodies are normal in height. No lumbar marrow edema. A T1 low and T2 bright focus within the anterior L4 vertebral body enhances and is similar in size. This may represent a lipid poor hemangioma. The lumbar discs are similar in height, and marginal spurring is present at multiple levels. CONUS: The conus terminates at L1-L2. No epidural fluid collection or abnormal leptomeningeal enhancement. PARASPINAL TISSUES: The paraspinal soft tissues and visualized retroperitoneal structures are unremarkable. L1-L2: Mild facet arthrosis. No central canal or foraminal stenosis. L2-L3: Foraminal disc-osteophyte complexes. No new central canal stenosis. Mild foraminal narrowing. No significant overall change. L3-L4: Bilateral foraminal disc-osteophyte complexes. No new central canal stenosis. At least moderate right and mild left foraminal narrowing. Crowding/compression of the right L3 nerve roots. No significant change. L4-L5: Concentric disc bulge. Bilateral foraminal annular tears. Facet arthrosis and ligamentum flavum infolding. Moderate central canal stenosis, not significantly changed. At least moderate right and mild-moderate left foraminal stenosis. Continue crowding of the exiting right L4 nerve roots. L5-S1: Right laminotomy defect. Posterior disc-osteophyte complex asymmetric to the right. Right greater than left facet arthrosis. No new significant central canal narrowing. Severe right and mild-moderate left foraminal stenosis. Continued compression of the right L5 nerve roots. IMPRESSION: 1. Status post posterior decompression and posterior cervical fusion at C3, C4, C5, and C6. Nonspecific T2 bright signal and enhancement of the posterior C3-C4 and C4-C5 discs without marrow signal within the adjacent C3, C4, and C5 vertebral bodies. Nonspecific enhancement within the paraspinal soft tissues adjacent to the C2-C3 facet joints. This is of indeterminate etiology, but could be related to previous surgery or infection. If there is strong clinical concern for osteomalacia/discitis, correlation with inflammatory markers and short-term follow-up imaging is recommended. 2. No evidence of osteomyelitis/discitis or septic facet joint arthritis of the thoracic and lumbarspine. 3. Degenerative and postoperative changes of the lumbar spine. No cauda equina compression. 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 4. No epidural fluid collection of the cervical, thoracic, and lumbar spine. WSN: [id number] Ordering Physician: Kaleb Vega Dictated By: Zachery Bejarano MD Dictated Date/Time: 02/27/24 4:37 pm Reviewed By: Zachery Bejaarno MD Signed By: Zachery Bejarano MD Signed Date/Time: 02/27/24 4:37 pm Transcribed By: HARPAL Transcribed Date/Time: 02/27/24 4:07 pm Vital Signs Most recent to oldest [Reference Range]: 1 2 3 Height 165 cm (02/27/24 11:03 AM) 165 cm (02/27/24 10:43 AM) Weight 93.1 kg (02/27/24 11:03 AM) 93.1 kg (02/27/24 10:43 AM) Oxygen Saturation [94-100 %] 97 % (02/27/24 6:51 PM) 97 % (02/27/24 10:43 AM) Pulse Rate [55-90 bpm] 78 bpm (02/27/24 6:51 PM) 103 bpm *H* (02/27/24 10:43 AM) Body Mass Index [18.5-24.99 kg/m2] 34.2 kg/m2 *>HHI* (02/27/24 10:43 AM) Blood Pressure [90-138/55-84 mm Hg] 121/70mm Hg (02/27/24 6:51 PM) 134/90mm Hg (02/27/24 10:43 AM) Respiratory Rate [16-30 br/min] 16 br/min (02/27/24 6:51 PM) 16 br/min (02/27/24 5:26 PM) 20 br/min (02/27/24 1:29 PM) Temperature [96.8-100.4 DegF] 98.1 DegF (02/27/24 10:43 AM) Mode of Delivery (Oxygen) Room air (02/27/24 6:51 PM) Room air (02/27/24 10:43 AM) Blood pressure sites Arm, right (02/27/24 6:51 PM) Arm, left (02/27/24 10:43 AM) Temperature Route Oral (02/27/24 10:43 AM) Dry Weight 93.1 kg (02/27/24 11:03 AM) 93.1 kg (02/27/24 10:43 AM) Weight Obtained Via Patient/family state d (02/27/24 10:43 AM) Dry Weight Obtained Via Patient/family s tated (02/27/24 10:43 AM) Social History Social History Type Response Smoking Status Former smoker; Other : Quit 2014; entered on: 09/10/17 Sex EKG study * Event Display: ECG 12-Lead Authored Date: Please click on pdf link to open report * Event Display: ECG 12-Lead Authored Date: Ventricular Rate: 98 BPM Atrial Rate: 98 BPM P-R Interval: 118 ms QRS Duration: 88 ms Q-T Interval: 342 ms QTC Calculation(Bazett): 436 ms P [place]: 57 degrees R [place]: 31 degrees T [place]: 30 degrees Normal sinus rhythm Septal infarct , age undetermined Abnormal ECG When compared with ECG of 13-SEP-2023 16:11, Septal infarct is now Present T wave inversion no longer evident in Inferior leads Nonspecific T wave abnormality no longer evident in Anterior leads Confirmed by MILI DE JESUS MD ([id number]) on 02/27/2024 12:08:55 PM [place]: MILI DE JESUS MD Note * Kaleb Vega MD: PERFORM Event Display: Patient Education Leaflets Authored Date: Fainting: Uncertain Cause ?? [id number] Fainting: Uncertain Cause Fainting (syncope) is a temporary loss of consciousness. It's often associated with a loss of postural tone. It???s also called passing out. It occurs when blood flow to the brain is less than normal. There are other causes of fainting, too. Near-fainting (near-syncope) is very similar to fainting,but you don???t fully pass out. In most cases, fainting occurs for reasons that aren't necessarily serious or life-threatening. Butit may still be dangerous if you fall or if it occurs while driving. Common triggers of less serious types of fainting include: ??? Sudden fear ??? Pain ??? Nausea ??? Emotional stress ??? Overexertion Suddenly standing up after sitting or lying for a long time can also cause fainting. More serious causes of fainting include: ??? Very slow or very fast heartbeat (arrhythmia) ??? Other types of heart disease, such as heart valve disease or coronary artery disease ??? Dehydration ??? Loss of blood ??? Stroke ??? Ruptured blood vessel in the brain Taking too much high blood pressure medicine can also cause low blood pressure and fainting. Your healthcare provider may be able to tell why you are fainting by reviewing your health history and hearing about your fainting episodes. If the cause of your fainting remains unknown or if your healthcare provider is concerned about a more serious cause he or she may determine that you need further testing. Testing may include: ??? Echocardiogram. This will take ultrasound pictures of your heart to evaluate the heart's structure and function ??? Stress test. This will check for abnormalities with you heart function or heartrhythm with exercise ??? Tilt table test. This evaluates for changes in blood pressure or heart rate when going from a laying position to standing ??? Heart monitoring. This will evaluate for heart rhythms that are too slow or too fast that may be the cause of your fainting ??? Lab tests. This can check for abnormalities in electrolytes, blood counts and other things Home care Follow these guidelines when caring for yourself at home: ??? Rest today. You may go back to your normal activities when you are feeling back to normal. It's best to stay with someone who can check on you for the next 24 hours to watch for another episode of fainting. ??? If you become lightheaded or dizzy, lie down right away and try to prop your feet above the level of your head. Or sit with your head between your knees. ??? Because the provider doesn???t know the exact cause of your faintingor near-fainting spell, it???s possible for you to have another spell without warning. Because of this, don???t drive a car or operate dangerous equipment until your healthcare provider says it's OK to do so. Don???t take a bath alone. Use a shower instead. Don???t swim alone??until your healthcareprovider says that you are no longer in danger of having another fainting spell. ?? Follow-up care Follow up with your healthcare provider, or as advised. Call 911 Call 911 if any of the following occur: ??? Another fainting spell that???s not explained by the common causes listed above ??? Pain in your chest, arm, neck, jaw, back, or belly (abdomen) ??? Shortness of breath ??? Severe headache or seizure ??? Blood in vomit or stools (black or red color) ??? Your heart beats very rapidly, very slowly, or irregularly (palpitations) ??? Weakness in an arm or leg or on 1 side of the face ??? Trouble speaking or seeing ??? Extreme drowsiness, confusion, or dizziness ?? Last Reviewed Date: 2021 ?? [id number] [employer]. All rights reserved. This information is not intended as a substitute for professional medical care. Always follow your healthcare professional's instructions. ?? * Kaleb Vega MD: PERFORM Event Display: Patient Education Leaflets Authored Date: [id number] Back Pain (Acute or Chronic) ?? [id number] Back Pain (Acute or Chronic) Back pain is one of the most common problems. The good news is that most people feel better in 1 to2 weeks, and most of the rest in 1 to 2 months. Most people can remain active. People who have pain??describe it differently???not??everyone is the same. ??? The pain can be sharp, stabbing, shooting, aching, cramping or burning. ??? Movement, standing,bending, lifting, sitting, or walking may worsen pain. ??? It can be limited to one spot or area, or it can be more generalized. ??? It can spread upwards, to the front, or go down your arms or legs (sciatica). ??? It can cause muscle spasm. Most of the time, mechanical problems with the muscles??or spine cause the pain. Mechanical problems??are usually caused by an injury to the muscles or ligaments. Illness can cause back pain, but it's usually not caused by a serious illness. Mechanical problems include:? Physical activity such as sports, exercise, work, or normal activity ??? Overexertion, lifting,pushing, pulling incorrectly or too aggressively ??? Sudden twisting, bending, or stretching from an accident, or accidental movement ??? Poor posture ??? Stretching or moving wrong, without noticingpain at the time ??? Poor coordination, lack of regular exercise (check with your doctor about this) ??? Spinal disc disease or arthritis ??? Stress Pain can also be related to , or illness such as appendicitis, bladder or kidney infections, kidney stones, and pelvic infections. Acute back pain usually gets better in??1 to 2 weeks. Back pain related to disk disease, arthritis in the spinal joints, or narrowing of the spinal canal (spinal stenosis) can become chronic and lastfor months or years. Unless you had a physical injury such as a car accident or fall, X-rays are usually not needed for the first assessment of back pain. If pain continues and does not respond to medical treatment, you may need X-rays and other tests. Home care Try this home care advice: ??? When in bed, try??to find a position of comfort. A firm mattress is best. Try lying flat on your back with pillows under your knees. You can also try lying on your side with your knees bent up toward your chest and a pillow between your knees. ??? At first, don't try to stretch out the sore spots. If there is a strain, it's not like the good soreness you get after exercising without an injury. In this case, stretching may make it worse. ??? Don't sit for long periods, as in a long car ride or during other??travel. This puts more stress on the lower back than standing or walking. ??? During the first 24 to 72 hours after an acute injury or flare up of chronic back pain, apply an ice pack to the painful area for 20 minutes and then remove it for 20 minutes. Do this over a period of 60 to 90 minutes or several times a day. This will reduce swelling and pain. Wrap the ice pack in a thintowel or plastic to protect your skin. ??? You can start with ice, then switch to heat. Heat (hot shower, hot bath, or heating pad) reduces pain and works well for muscle spasms. Heat can be applied to the painful area for 20 minutes then remove it for 20 minutes. Do this over a period of 60 to 90 minutes or several times a day. Don't sleep on a heating pad. It can lead to skin doty or tissue damage. ??? You can alternate ice and heat therapy. Talk with your doctor about??the best treatment for your back pain. ??? Therapeutic massage can help relax the back muscles without stretching them. ??? Be aware of safe lifting methods. Don't lift anything without stretching first. Medicines Talk to your doctor before using medicine, especially if you have other medical problems or are taking other medicines. ??? You may use onla-ppj-wqqmabb medicine as directed on the bottle to control pain, unless another pain medicine was prescribed. Talk with your healthcare provider before using these medicines if you have chronic conditions such as diabetes, liver or kidney disease, stomach ulcers, or digestive bleeding. Also talk with your provider if you take blood thinners. ??? Be careful if you are given a prescription medicines, narcotics, or medicine for muscle spasms. They can cause drowsiness, affect your coordination, reflexes, and judgment. Don't drive or operate heavy machinery. ?? Follow-up care Follow up with your healthcare provider, or as advised.?? If X-rays were taken, you will be told of any new findings that may affect your care. ?? Call 911 Call 911 if any of the following occur: ??? Trouble breathing ??? Confusion ??? Very drowsy or trouble awakening ??? Fainting or loss of consciousness ??? Rapid or very slow heart rate ??? Loss of bowel or bladder control ?? When to seek medical advice Call your healthcare provider right away if any of these occur:? Pain gets worse or spreads toyour legs ??? Your bowel or bladder control changes ??? Fever ??? Blood in your urine ??? Weakness or numbness in one or both legs ??? Numbness in the groin or genital area ?? Last Reviewed Date: 2021 ?? [id number] [employer]. All rights reserved. This information is not intended as a substitute for professional medical care. Always follow your healthcare professional's instructions. ?? Patient Care team information Care Team Personnel Name: Elvia Collins RN Position: [facility] RN Member Role: Primary Care Nurse Name: Macarena Lewis RN Position: [facility] RN Member Role: Primary Care Nurse Name: Mallory Lugo RN Position: [facility] RN Member Role: Primary Care Nurse Name: Carmen aGo RN Position: [facility] ED RN [...] Care Nurse Name: Cortez Golden RN Position: [facility] RN [...] Wu RN Position: [facility] RN [...] Primary Care Member Role: PCP Address: Address: [address] [place] [id number]- Name: Cassidy Masters RN Position: [facility] RN Member Role: Primary Care Nurse Name: Juancarlos Valente RN Position: [facility] Boiler Testing Technician Member Role: Primary Care Nurse Name: Tran Wiseman RN Position: [facility] RN Member Role: Primary Care Nurse Care Team Related Persons Name: SYLVIA BARBOSA Address: [address] [place] [address] Name: GAGE HUNT Address: [address] [place] [address] Name: JOCELYN HUNT Address: home [address] [place] [address]
--- OUTSIDE RECORDS SUMMARY | 2024-05-24 04:37 | XMS_ITS | Continuity of Care Document ---
Author Organization [facility] y Address [address] [place] [address] [address], [address] [place] [address]- Care Team Providers Care Sand Drier Name Role Phone Alonzo Esposito MD Primary Care Physician Encounter [facility] Date(s): 09/14/23 - 10/14/23 [facility] [address] [place] [address] Drive, [address] [place], [place] [address] Allergies, Adverse Reactions, Alerts Substance Reaction [...] influenza virus vaccine, inactivated 12/06/15 Give n [id number] 12y+ bivalent booster vax 11/03/22 Given SARS-CoV-2 mRNA (yrkslpo-[id number]-fnjsy) vax 01/26/22 Given SARS-CoV-2 mRNA (calthoz-deyd-pmkqc) vax 12/28/21 Given tetanus/diphtheria/pertussis, acel(Tdap) 03/29/19 Given tetanus/diphtheria/pertussis, acel(Tdap) 09/10/17 Given pneumococcal 23-valent vaccine 04/08/18 Recorded pneumococcal 23-valent vaccine 04/22/17 Recorded pneumococcal 23-valent vaccine 12/21/12 Given Medications aspirin 81 mg oral delayed release tablet 81 mg, By Mouth, Daily, # 30 tablet, Refills 11, Tot. Refills 11, Maintenance, 11/29/23 17:42:00 EST, Route to Pharmacy Electronically, [facility] [id number], For blister pack please., 166, cm, 09/12/23 13:54:00 EST, Height, 9... Start Date: 09/12/23 Status: Ordered atorvastatin 40 mg oral tablet 1 tablet = 40 mg, By Mouth, Daily, # 30 tablet, 11 Refills, Maintenance, 09/12/23 17:42:00 EST, Tablet, [facility] [id number], For blister pack please., 166, cm, 09/12/23 13:54:00 EST, Height, 93, kg, 09/06/23 16:15:00 EST, DrMicheal.. Start Date: 09/12/23 Stop Date: 09/06/24 Status: Ordered chlorhexidine topical 0.12% liquid See Instructions, SWISH AND SPIT DO NOT SWALLOW. USE 3-4 X/ DAY, # 473 mL, 0 Refills, Maintenance, 09/25/23 16:56:00 EST, [id number], 30, SWISH AND SPIT DO NOT SWALLOW. USE 3-4 X/ DAY, 166, cm, 09/21/23 11:32:00 EST, Height, 93, kg, 09/14/23 12:3... Start Date: 09/25/23 Status: Ordered docusate sodium 100 mg oral tablet 1 tablet = 100 mg, By Mouth, 2 times a day, PRN for constipation, # 60 tablet, 0 Refills, Maintenance, 09/27/23 13:27:00 EST, Tablet, [facility]/pharmacy #[id number], Partial fill upon patient request if the prescription is for a schedule II opioid drug., 166, cm,... Start Date: 09/27/23 Status: Ordered FLUoxetine 20 mg oral capsule 60 mg, 3, capsule, By Mouth, Daily, TAKE 3 CAPSULES BY MOUTH EVERY DAY IN THE MORNING, # 90 capsule, Refills 11, Tot. Refills 11, Maintenance, 09/12/23 17:44:00 EST, Route to Pharmacy Electronically,[facility] [id number], for... Start Date: 09/12/23 Status: Ordered gabapentin 300 mg oral capsule 300 mg, 1, capsule, By Mouth, 2 times a day, # 60 capsule, Refills 11, Tot. Refills 11, Maintenance, 09/12/23 17:42:00 EST, Route to Pharmacy Electronically, [facility] [id number], For blister pack please., 166, cm, 09/12/23 1... Start Date: 09/12/23 Status: Ordered nitroglycerin 0.4 mg sublingual tablet 1 tablet = 0.4 mg, Sublingual, Every 5 minutes, PRN Chest Pain, # 100 tablet, 0 Refills, Maintenance, 06/08/23 16:23:00 EDT, Tablet, [id number], Partial fill upon patient request if the prescription is for a schedule II opioid drug., 165, cm,... Start Date: 06/08/23 Status: Ordered oxyCODONE 15 mg oral tablet 1 tablet = 15 mg, By Mouth, Every 6 hours, PRN Pain , Severe, controlled substance agreement. adjusting dose back to previous dose., # 120 tablet, 0 Refills, Maintenance, 09/24/23 12:55:00 EST, Tablet, [id number], Partial fill upon patient req... Start Date: 09/24/23 Status: Ordered propranolol 20 mg oral tablet 2, tablet, By Mouth, 2 times a day, # 120 tablet, Refills 11, Tot. Refills , Maintenance, 09/12/23 17:42:00 EST, Route to Pharmacy Electronically, [facility] [id number], For blister pack please., 166, cm, 09/12/23 13:54:00 E... Start Date: 09/12/23 Status: Ordered risperiDONE 2 mg oral tablet 4 mg, 2, tablet, By Mouth, Daily at bedtime, Rx'd by psychiatry, # 60 tablet, Refills 11, Tot. Refills , Maintenance, 09/12/23 17:44:00 EST, Route to Pharmacy Electronically, [facility] [id number], for blister pack, 166, cm... Start Date: 09/12/23 Status: Ordered tiZANidine 2 mg oral tablet 2 mg, 1, tablet, By Mouth, 3 times a day, Can take two tablets at bedtime. Do not take at the same time as oxycodone., # 90 tablet, Refills 0, Tot. Refills 0, Maintenance, 09/26/23 10:38:00 EST, Route to Pharmacy Electronically, [facility]/pharmacy #[id number], Sp... Start Date: 09/26/23 Status: Ordered traZODone 100 mg oral tablet 50 mg, 0.5, tablet, By Mouth, Daily at bedtime, # 15 tablet, Refills 11, Tot. Refills 11, Maintenance, 09/12/23 17:44:00 EST, Route to Pharmacy Electronically, [facility] [place], [place] - [id number], Partial fill upon patient request if the pr... Start Date: 09/12/23 Status: Ordered Ventolin HFA 108 mcg/inh inhalation aerosol with adapter 2 puffs, Inhalation, 4 times a day, PRN NEEDED FOR WHEEZING, # 18 Gm, 11 Refills, Maintenance, 02/22/23 8:17:00 EDT, [facility]/pharmacy #[id number], 166, cm, 01/18/23 15:56:00 EDT, Height, [...] Confirmed Active Health correction, active care coordination PADMINI Cruz [facility] [phone] Confirmed Active Fatty infiltration of liver Confirmed [...] Primary Care Nurse Name: Sima RNCarmen Position: [facility] ED RN W/OE and Tasks Member Role: Primary Care Nurse Name: Dacia Evangelista RN Position: [facility] RN Member Role: Primary Care Nurse Name: Tracey Linares RN Position: [facility] AMB Nurse Member Role: Primary Care Nurse Name: Italia Ortega RN Position: [facility] RN Member Role: Primary Care Nurse Name: Catalina He RN Position: [facility] AMB Nurse Member Role: Primary Care Nurse Name: Jessica Lantigua RN Position: [facility] SN RN Member Role: Primary Care Nurse Name: Catalina Pack RN Position: [facility] SN RN Member Role: Primary Care Nurse Name: Clifford Gerber RN Position: [facility] RN Member Role: Primary Care Nurse Name: Doris Butler RN Position: [facility] RN Member Role: Primary Care Nurse Name: Aziza Poole RN Position: [facility] RN Member Role: Primary Care Nurse Name: Monet Miller RN Position: [facility] RN Member Role: Primary Care Nurse Name: Katheryn Wu RN Position: [facility] SN RN Member Role: Primary Care Nurse Name: Doris Dee RN Position: [facility] RN Member Role: Primary Care Nurse Name: Janae Soto RN Position: [facility] RN Member Role: Primary Care Nurse Name: Daphney Echols LPN Position: [facility] RN Member Role: Primary Care Nurse Name: Nini Odonnell RN Position: [facility] RN Member Role: Primary Care Nurse Name: Jennifer Thakkar RN Position: [facility] RN Member Role: Primary Care Nurse Name: Hyun Ochoa RN Position: [facility] RN Member Role: Primary Care Nurse Name: Yazmin Lay RN Position: [facility] RN Member Role: Primary Care Nurse Name: Nancy Magana RN Position: [facility] RN Member Role: Primary Care Nurse Name: Ranjana Zavala RN Position: [facility] RN Member Role: Primary Care Nurse Name: Melvi Carter RN Position: [facility] OB RN Member Role: Primary Care Nurse Name: Jackson Rosen RN Position: [facility] RN Member Role: Primary Care Nurse Name: Clarissa Rodriguez RN Position: [facility] RN Supv Member Role: Primary Care Nurse Name: Ophelia Marie RN Position: [facility] RN Member Role: Primary Care Nurse Name: Nolvia Mendes RN Position: [facility] RN Member Role: Primary Care Nurse Name: Tyrone Germain RN Position: [facility] RN Member Role: Primary Care Nurse Name: Adi Rees RN Position: [facility] RN Member Role: Primary Care Nurse Name: Orlando Mcallister RN Position: [facility] RN Member Role: Primary Care Nurse Name: Alonzo Esposito MD Position: [facility] Physician - Primary Care Member Role: PCP Address: Address: [address] [place] [phone]- [place] Name: Doroteo Morrow RN Position: [facility] RN Member Role: Primary Care Nurse Address: Address: [address] [place] [phone]- Name: Cassidy Masters RN Position: [facility] RN Member Role: Primary Care Nurse Name: Juancarlos Valente RN Position: [facility] Hospital Communication Skills Instructor Member Role: Primary Care Nurse Name: Tran Wiseman RN Position: [facility] RN Member Role: Primary Care Nurse Care Team Related Persons Name: LETI BARBOSAA Address: home [address] [place] [id number] Name: GAGE HUNT Address: home [address] [place] [address] Name: JOCELYN HUNT Address: [address] [place] [address]
--- OUTSIDE RECORDS SUMMARY | 2024-05-24 04:38 | XMS_ITS | Continuity of Care Document ---
Author Organization [facility] Address [address] [place] [address]- Care Team Providers Care Front Of House Manager Name Role Phone Alonzo Esposito MD Primary Care Physician Encounter [facility] Date(s): 01/22/24 - 03/01/[address] [address] Attending Physician: Alonzo Esposito MD Admitting Physician: Alonzo Esposito MD Referring Physician: Alonzo Esposito MD Allergies, [...] influenza virus vaccine, inactivated 12/06/15 Give n [id number] 12y+ bivalent booster vax 11/03/22 Given SARS-CoV-2 mRNA (ivwaqar-oqtu-wfmum) vax 01/26/22 Given SARS-CoV-2 mRNA (mzjyhxi-jkyh-tqivg) vax 12/28/21 Given pneumococcal 23-valent vaccine 04/08/18 Recorded pneumococcal 23-valent vaccine 04/22/17 Recorded pneumococcal 23-valent vaccine 12/21/12 Given 1Result Comment: [facility] Medications acetaminophen 325 mg oral tablet 650 mg, 2, tablet, By Mouth, Every 6 hours, PRN, # 120 tablet, Refills 0, Tot. Refills 0, Maintenance, for pain, 02/27/24 18:13:00 EDT, Route to Pharmacy Electronically, [facility]/pharmacy #[id number], Partial fill upon patient request if the prescription is for... Start Date: 02/27/24 Status: Ordered aspirin 81 mg oral delayed release tablet 81 mg, By Mouth, Daily, # 30 tablet, Refills 11, Tot. Refills 11, Maintenance, 09/12/23 17:42:00 EST, Route to Pharmacy Electronically, [facility] [id number], For blister pack please., 166, cm, 09/12/23 13:54:00 EST, Height, 9... Start Date: 09/12/23 Status: Ordered atorvastatin 40 mg oral tablet 1 tablet = 40 mg, By Mouth, Daily, # 30 tablet, 11 Refills, Maintenance, 09/12/23 17:42:00 EST, Tablet, [facility] [id number], For blister pack please., 166, cm, 09/12/23 13:54:00 EST, Height, 93, kg, 09/06/23 16:15:00 EST, Start Date: 09/12/23 Stop Date: 09/06/24 Status: Ordered diclofenac 1% topical gel 1 application, Topically, 4 times a day, PRN Pain , Mild, not to exceed 16 grams/day/single joint of lower extremities, # 100 Gm, 3 Refills, Maintenance, 11/30/23 9:43:00 EST, Gel, [facility]/pharmacy #[id number], Partial fill upon patient request if the prescript... Start Date: 11/30/23 Status: Ordered FLUoxetine 20 mg oral capsule 60 mg, 3, capsule, By Mouth, Daily, TAKE 3 CAPSULES BY MOUTH EVERY DAY IN THE MORNING, # 90 capsule, Refills 11, Tot. Refills 11, Maintenance, 09/12/23 17:44:00 EST, Route to Pharmacy Electronically,[facility] [id number], for... Start Date: 09/12/23 Status: Ordered gabapentin 800 mg oral tablet 1 tablet = 800 mg, By Mouth, 3 times a day, # 90 tablet, 3 Refills, Maintenance, 02/29/24 9:58:00 EDT, Tablet, [facility]/pharmacy #[id number], Partial fill upon patient request if the prescription is for a schedule II opioid drug., 165, cm, 02/29/24 9:45:00 EDT,... Start Date: 02/29/24 Status: Ordered nitroglycerin 0.4 mg sublingual tablet 1 tablet = 0.4 mg, Sublingual, Every 5 minutes, PRN Chest Pain, # 100 tablet, 0 Refills, Maintenance, 06/08/23 16:23:00 EDT, Tablet, [facility]/pharmacy #[id number], Partial fill upon patient request if the prescription is for a schedule II opioid drug., 165, cm,... Start Date: 06/08/23 Status: Ordered oxyCODONE 15 mg oral tablet 1 tablet = 15 mg, By Mouth, Every 6 hours, PRN Pain , Severe, controlled substance agreement., # 120 tablet, 0 Refills, Maintenance, 02/29/24 10:11:00 EDT, Tablet, [facility]/pharmacy #[id number], Partial fill upon patient request if the prescription is for a sche... Start Date: 02/29/24 Status: Ordered risperiDONE 2 mg oral tablet 4 mg, 2, tablet, By Mouth, Daily at bedtime, Rx'd by psychiatry, # 60 tablet, Refills 11, Tot. Refills 11, Maintenance, 09/12/23 17:44:00 EST, Route to Pharmacy Electronically, [place], [place] - [id number], for blister pack, 166, cm... Start Date: 09/12/23 Status: Ordered tiZANidine 2 mg oral tablet 4 mg, 2, tablet, By Mouth, Every 8 hours, # 180 tablet, Refills 3, Tot. Refills 3, Maintenance, 02/29/24 9:59:00 EDT, Route to Pharmacy Electronically, [facility]/pharmacy #[id number], Partial fill upon patient request if the prescription is for a schedule II opio... Start Date: 5/17/24 Status: Ordered traZODone 100 mg oral tablet 50 mg, 0.5, tablet, By Mouth, Daily at bedtime, # 15 tablet, Refills 11, Tot. Refills 11, Maintenance, 09/12/23 17:44:00 EST, Route to Pharmacy Electronically, [facility] [place] [place] - [id number], Partial fill upon patient request if the [...] skilled nursing, active care coordination PADMINI Nancy [facility] [phone] Confirmed Active Cervical stenosis of spine Confirmed [...] RN Position: [facility] ED RN W/OE and Tasks [...] Care Nurse Name: Doris Butler RN Position: [facility] [...] Care Nurse Name: Daphney Echols LPN Position: [facility] RN Member Role: Primary Care Nurse Name: Nini Odonnell RN Position: [facility] RN Member Role: Primary Care Nurse Name: Jennifer Thakkar RN Position: [facility] RN Member Role: Primary Care Nurse Name: Hyun Ochoa RN Position: [facility] RN Member Role: Primary Care Nurse Name: Yazmin Lay RN Position: [facility] RN Member Role: Primary Care Nurse Name: Ranjana Zavala RN Position: [facility] RN Member Role: Primary Care Nurse Name: Melvi Carter RN Position: [facility] OB RN Member Role: Primary Care Nurse Name: Jackson Rosen RN Position: [facility] RN Member Role: Primary Care Nurse Name: Clraissa Rodriguez RN Position: [facility] RN Vikram Member Role: Primary Care Nurse Name: Ophelia Marie RN Position: [facility] SN RN Member Role: Primary Care Nurse Name: Nolvia Mendes RN Position: [facility] RN Member Role: Primary Care Nurse Name: Tyrone Germain RN Position: [facility] RN Member Role: Primary Care Nurse Name: Adi Rees RN Position: [facility] RN Member Role: Primary Care Nurse Name: Alonzo Esposito MD Position: [facility] Physician - Primary Care Member Role: PCP Address: Address: [address] [place] [id number]- Name: Cassidy Masters RN Position: [facility] RN Member Role: Primary Care Nurse Name: Juancarlos Valente RN Position: [facility] Hospital Careers Adviser Member Role: Primary Care Nurse Name: Tran Wiseman RN Position: [facility] RN Member Role: Primary Care Nurse Care Team Related Persons Name: SYLVIA BARBOSA Address: [address] [address] Name: GAGE HUNT Address: home [address] [place] [id number] Name: JOCELYN HUNT Address: home [address] [place] [address]
--- OUTSIDE RECORDS SUMMARY | 2024-05-24 04:38 | XMS_ITS | Continuity of Care Document ---
Author Organization [facility] Address [address] [place] [address]- Care Team Providers Care Instrument Checker Name Role Phone Alonzo Esposito MD Primary Care Physician [phone] Encounter [facility] Date(s): 04/02/24 - 05/02/[address] [address] Allergies, Adverse Reactions, Alerts Substance [...] influenza virus vaccine, inactivated 12/06/15 Give n [id number] 12y+ bivalent booster vax 11/03/22 Given SARS-CoV-2 mRNA (bbkoskc-wyji-ijgsg) vax 01/26/22 Given SARS-CoV-2 mRNA (akaekqz-elpw-txqsb) vax 12/28/21 Given pneumococcal 23-valent vaccine 04/08/18 Recorded pneumococcal 23-valent vaccine 04/22/17 Recorded pneumococcal 23-valent vaccine 12/21/12 Given 1Result Comment: [facility] Medications acetaminophen 325 mg oral tablet 650 mg, 2, tablet, By Mouth, Every 6 hours, PRN, # 120 tablet, Refills 0, Tot. Refills 0, Maintenance, for pain, 02/27/24 18:13:00 EDT, [id number] Partial fill upon patient request if the prescription is for... Start Date: 02/27/24 Status: Ordered amoxicillin 500 mg oral capsule 4 capsule = 2,000 mg, By Mouth, Once, given 1 hour prior to the dental procedure, # 4 capsule, 0 Refills, Soft Stop, 03/18/24 8:57:00 EDT, Capsule, [facility]/pharmacy #[id number], Partial fill upon patient request if the prescription is for a schedule II opioid d... Start Date: 03/18/24 Status: Ordered aspirin 81 mg oral delayed release tablet 81 mg, By Mouth, Daily, # 30 tablet, Refills 11, Tot. Refills 11, Maintenance, 09/12/23 17:42:00 EST, Route to Pharmacy Electronically, [place], [place] - [id number], For blister pack please., 166, cm, 09/12/23 13:54:00 EST, Height, 9... Start Date: 09/12/23 Status: Ordered atorvastatin 40 mg oral tablet 1 tablet = 40 mg, By Mouth, Daily, # 30 tablet, 11 Refills, Maintenance, 09/12/23 17:42:00 EST, Tablet, [place], [place] - [id number], For blister pack please., 166, cm, 09/12/23 13:54:00 EST, Height, 93, kg, 09/06/23 16:15:00 EST, Start Date: 09/12/23 Stop Date: 09/06/24 Status: Ordered diclofenac 1% topical gel 1 application, Topically, 4 times a day, PRN Pain , Mild, not to exceed 16 grams/day/single joint of lower extremities, # 100 Gm, 3 Refills, Maintenance, 11/30/23 9:43:00 EST, Gel, [facility]/pharmacy #[id number], Partial fill upon patient request if the prescript... Start Date: 11/30/23 Status: Ordered FLUoxetine 20 mg oral capsule 60 mg, 3, capsule, By Mouth, Daily, TAKE 3 CAPSULES BY MOUTH EVERY DAY IN THE MORNING, # 90 capsule, Refills 11, Tot. Refills 11, Maintenance, 09/12/23 17:44:00 EST, Route to Pharmacy Electronically,[place], [place] - [id number], for... Start Date: 09/12/23 Status: Ordered gabapentin 800 mg oral tablet 1 tablet = 800 mg, By Mouth, 3 times a day, # 90 tablet, 3 Refills, Maintenance, 02/29/24 9:58:00 EDT, Tablet, [facility]/pharmacy #[id number], Partial fill upon patient request if the prescription is for a schedule II opioid drug., 165, cm, 02/29/24 9:45:00 EDT,... Start Date: 02/29/24 Status: Ordered nitroglycerin 0.4 mg sublingual tablet 1 tablet = 0.4 mg, Sublingual, Every 5 minutes, PRN Chest Pain, # 100 tablet, 0 Refills, Maintenance, 06/08/23 16:23:00 EDT, Tablet, [facility]/pharmacy #[id number], Partial fill upon patient request if the prescription is for a schedule II opioid drug., 165, cm,... Start Date: 06/08/23 Status: Ordered oxyCODONE 15 mg oral tablet 1 tablet = 15 mg, By Mouth, Every 6 hours, PRN Pain , Severe, controlled substance agreement., # 120 tablet, 0 Refills, Maintenance, 04/03/24 11:48:00 EDT, Tablet, [facility]/pharmacy #[id number], Partial fill [...] 09/12/23 17:44:00 EST, Route to Pharmacy Electronically, [place], [place] - [id number], for blister pack, 166, cm... Start Date: 09/12/23 Status: Ordered tiZANidine 2 mg oral tablet 4 mg, 2, tablet, By Mouth, Every 8 hours, # 180 tablet, Refills 3, Tot. Refills 3, Maintenance, 02/29/24 9:59:00 EDT, [facility] [...] Gm, 11 Refills, Maintenance, 02/22/23 8:17:00 EDT, [facility]/pharmacy #[id number], 166, cm, 01/18/23 [...] Active Right knee pain Confirmed Active Health [facility], active care coordination Netta Mata [phone] Confirmed Active Cervical stenosis of spine Confirmed [...] Care Nurse Name: Macarena Lewis RN Position: [facility] RN Member Role: Primary Care Nurse Name: Mallory Lugo RN Position: [facility] RN Member Role: Primary Care Nurse Name: Carmen Gao RN Position: [facility] ED RN W/OE and Tasks Member Role: Primary Care Nurse Name: Dacia Evangelista RN Position: [facility] RN Member Role: Primary Care Nurse Name: Tracey iLnares RN Position: [facility] AMB Nurse Member Role: Primary Care Nurse Name: Italia Ortega RN Position: [facility] RN Member Role: Primary Care Nurse Name: Catalina He RN Position: [facility] AMB Nurse Member Role: Primary Care Nurse Name: Cortez Golden RN Position: [facility] RN Member Role: Primary Care Nurse Name: Jessica Lantigua RN Position: [facility] SN RN Member Role: Primary Care Nurse Name: Catalina Pack RN Position: [facility] SN RN Member Role: Primary Care Nurse Name: Clifford Gerber RN Position: [facility] RN Member Role: Primary Care Nurse Name: Doris Butler RN Position: [facility] RN Member Role: Primary Care Nurse Name: Aziza Poole RN Position: [facility] RN Member Role: Primary Care Nurse Name: Katheryn Wu RN Position: [facility] SN RN Member Role: Primary Care Nurse Name: Doris Dee RN Position: [facility] RN Member Role: Primary Care Nurse Name: Janae Soto RN Position: [facility] RN Member Role: Primary Care Nurse Name: Daphney Echols LPN Position: [facility] RN Member Role: Primary Care Nurse Name: Nini Odonnell RN Position: [facility] RN Member Role: Primary Care Nurse Name: Jennifer Thakkar RN Position: [facility] RN Member Role: Primary Care Nurse Name: Hyun Ochoa RN Position: [facility] RN Member Role: Primary Care Nurse Name: Ruth Lay RN Position: [facility] RN Member Role: Primary Care Nurse Name: Ranjana Zavala RN Position: [facility] RN Member Role: Primary Care Nurse Name: Melvi Carter RN Position: [facility] OB RN Member Role: Primary Care Nurse Name: Jackson Rosen RN Position: [facility] RN Member Role: Primary Care Nurse Name: Clarissa Rodriguez RN Position: [facility] RN Supv Member Role: Primary Care Nurse Name: Ophelia Marie RN Position: [facility] SN RN Member Role: Primary Care Nurse Name: Nolvia Mendes RN Position: [facility] RN Member Role: Primary Care Nurse Name: Tyrone Germain RN Position: [facility] RN Member Role: Primary Care Nurse Name: Adi Rees RN Position: [facility] RN Member Role: Primary Care Nurse Name: Alonzo Esposito MD Position: [facility] Physician - Primary Care Member Role: PCP Address: Address: [address] [place] [address]- Name: Cassidy Masters RN Position: [facility] RN Member Role: Primary Care Nurse Name: Juancarlos Valente RN Position: [facility] Mock Up Builder Member Role: Primary Care Nurse Name: Tran Wiseman RN Position: [facility] RN Member Role: Primary Care Nurse Care Team Related Persons Name: SYLVIA BARBOSA Address: home [address] [place] [id number] Name: GAGE HUNT Address: [address] [place] [address] Name: JOCELYN HUNT Address: home [address] [place] [address]
--- OUTSIDE RECORDS SUMMARY | 2024-05-24 04:38 | XMS_ITS | Continuity of Care Document ---
Author Organization [facility] Address [address] [place] [address]- Care Team Providers Care Meat Butcher Name Role Phone Dawna Hernandez MD Primary Care Physician Encounter [facility] Date(s): 12/08/22 - 01/07/[address] [address] Allergies, Adverse Reactions, Alerts Substance Reaction Severity Status lisinopril Angioedema Active Shrimp Active Immunizations Given and Recorded Vaccine Date Status Refusal Reason [id number] 12y+ bivalent booster vax 11/03/22 Given influenza virus vaccine, inactivated 11/03/22 Give n influenza virus vaccine, inactivated 02/15/22 Give n influenza virus vaccine, inactivated 09/01/20 Give n influenza virus vaccine, inactivated 09/15/19 Give n influenza virus vaccine, inactivated 11/19/18 Give n influenza virus vaccine, inactivated 09/10/17 Give n influenza virus vaccine, inactivated 12/06/15 Give n SARS-CoV-2 mRNA (kesekid-jtaa-gbesc) vax 01/26/22 Given SARS-CoV-2 mRNA (ypcdzwx-fjkd-vfidm) vax 12/28/21 Given tetanus/diphtheria/pertussis, acel(Tdap) 03/29/19 Given [...] Refills, Maintenance, 05/11/22 14:22:00 EDT, Tablet, [facility]/pharmacy #[id number], Partial fill upon [...] 1 Refills, Maintenance, 04/05/22 7:53:00 EDT, [facility]/pharmacy #[id number], 165, cm, 02/15/22 10:35:00 EDT, Height, 90.7, kg, 02/06/22 19:49:00 EDT, Dry Weight Start Date: 04/05/22 Status: Ordered Colace sodium 100 mg oral capsule 100 mg, 1, capsule, By Mouth, 2 times a day, PRN, # 20 capsule, Refills 0, Tot. Refills 0, Maintenance, for constipation, 09/22/22 9:53:00 EST, [facility], [facility] 0 Refills, Maintenance, 01/04/23 12:39:00 EDT, Tablet, [facility]/pharmacy #[id number], Partial fill upon patient request if the [...] 11 Refills, Maintenance, 06/15/22 17:40:00EDT, Tablet, [facility]/pharmacy #[id number], Partial fill upon patient request if the prescription is for a schedule II opioid drug., 165, cm, 06/15/22 14:29:00 ED... Start Date: 06/15/22 Status: Ordered ibuprofen 600 mg oral tablet 600 mg, 1, tablet, By Mouth, 3 times a day, # 90 tablet, Refills 0, Tot. Refills 0, Maintenance, 09/06/22 21:10:00 EST, Route to Pharmacy Electronically, [facility]/pharmacy #[id number], Partial fill upon patientrequest if [...] 0 Refills, Maintenance, 07/20/22 15:26:00 EDT, [facility] STORE [id number], 10, APPLY 1 PATCH DAILY NEEDED FOR MODERATE PAIN..REMOVE AFTER 12... Start Date: 07/20/22 Status: Ordered nitroglycerin 0.4 mg sublingual tablet 1 tablet = 0.4 mg, Sublingual, Every 5 minutes, PRN Chest Pain, # 100 tablet, 0 Refills, Maintenance, 11/06/22 13:52:00 EST, Tablet, [facility]/pharmacy #[id number], Partial fill upon patient request if the prescription is for a schedule II opioid drug., 175, cm,... Start Date: 11/06/22 Status: Ordered omeprazole 20 mg oral enteric coated capsule 1 capsule = 20 mg, By Mouth, Daily, # 30 capsule, 1 Refills, Maintenance, 01/04/23 12:40:00 EDT, ECCapsule, [facility]/pharmacy #[id number], Partial fill upon [...] Refills, Maintenance, 12/01/22 12:02:00 EST, ER Tablet, [facility]/pharmacy #[id number], Partial fill upon [...] tablet, Refills 5, Route to Pharmacy Electronically, [facility] [id number], 166, cm, 12/28/21 10:33:00 EDT, Height, 91.9, [...] EST, Supply Start Date: 12/12/22 Status: Ordered Branch Office Manager Branch Office Manager, See Instructions, # 1 each, Refills 0, [...] Refills, Maintenance, 12/12/22 12:14:00 EST, [id number], 175, cm, 11/15/22 9:07:00 EST, Height, 88.2, [...] Active Obstructive sleep apnea Confirmed Active Health half-way, active care coordination PADMINI Mata [phone] Confirmed Active Fatty infiltration of liver Confirmed Active Tubular adenoma of colon Confirmed Active 1history of this with surgical correction Social History Social History Type Response Smoking Status Former smoker; Other : Quit 2014; entered on: 09/10/17 Sex Patient Care team information Care Team Personnel Name: Macarena Lewis RN Position: [facility] RN Member Role: Primary Care Nurse Name: Mallory Lugo RN Position: [facility] RN Member Role: Primary Care Nurse Name: Carmen Gao RN Position: [facility] RN [...] RN Position: [facility] RN Supv Member Role: Primary Care [...] Member Role: Primary Care Nurse Address: Address: [address] [place] [address]- Name: Cassidy Masters RN Position: [facility] RN Member Role: Primary Care Nurse Name: Juancarlos Valente RN Position: [facility] Hospital Instant Powder Supervisor Member Role: Primary Care Nurse Name: Dawna Hernandez MD Position: [facility] Primary Care Physician Member Role: PCP Address: Address: [address] [place] [address]- Care Team Related Persons Name: SYLVIA BARBOSA Address: [address] [place] [address] Name: GAGE HUNT Address: [address] [place] [address] Name: JOCELYN HUNT Address: home [address] [place] [address]
--- OUTSIDE RECORDS SUMMARY | 2024-05-24 04:38 | XMS_ITS | Continuity of Care Document ---
Author Organization [facility] ter Address [address] [place] [address]- Care Team Providers Care Drafter Civil Engineering Name Role Phone Alonzo Esposito DO Primary Care Physician [phone] Encounter [facility] Date(s): 05/09/23 - 05/09/[address] [address]- Encounter Diagnosis Syncope(Final) - 05/09/23 Discharge Disposition: A-D/C Walkout Attending Physician: Yony Lorenzana MD Admitting Physician: Yony Lorenzana MD Referring Physician: Not on Staff, Referring MD Allergies, Adverse Reactions, Alerts Substance Reaction Severity Status lisinopril Angioedema Active Shrimp Active Immunizations Given and Recorded Vaccine Date Status Refusal Reason [id number] 12y+ bivalent booster vax 11/03/22 Given influenza virus vaccine, inactivated 11/03/22 Give n influenza virus vaccine, inactivated 02/15/22 Give n influenza virus vaccine, inactivated 09/01/20 Give n influenza virus vaccine, inactivated 09/15/19 Give n influenza virus vaccine, inactivated 11/19/18 Give n influenza virus vaccine, inactivated 09/10/17 Give n influenza virus vaccine, inactivated 12/06/15 Give n SARS-CoV-2 mRNA ([id number]-[id number]) vax 01/26/22 Given SARS-CoV-2 mRNA (opuytkf-qboe-cdeej) vax 12/28/21 Given tetanus/diphtheria/pertussis, acel(Tdap) 03/29/19 Given tetanus/diphtheria/pertussis, acel(Tdap) 09/10/17 Given pneumococcal 23-valent vaccine 04/08/18 Recorded pneumococcal 23-valent vaccine 04/22/17 Recorded pneumococcal 23-valent vaccine 12/21/12 Given Medications acetaminophen-oxycodone 325 mg-10 mg oral tablet 1 tablet, By Mouth, Daily at bedtime, for 30 days, mass pat verified, # 30 tablet, 0 Refills, Acute05/19/23 21:13:00 EDT, 04/19/23 21:13:00 EDT, [facility]/pharmacy #[id number], Partial fill upon [...] 03/15/23 0:06:00 EDT, Route to Pharmacy Electronically, [facility]/pharmacy #[id number], Partial fill upon patient request if the prescription is for a schedule II opioid drug.... Start Date: 03/15/23 Status: Ordered atorvastatin 40 mg oral tablet 1 tablet, By Mouth, Daily, # 90 tablet, 1 Refills, Maintenance, 03/01/23 12:46:00 EDT, [id number], 166, cm, 01/18/23 15:56:00 EDT, Height, 91, [...] tablet, 1 Refills, Maintenance, 02/22/23 8:17:00 EDT, [facility]/pharmacy #[id number], 166, cm, 01/18/23 15:56:00 [...] 3 Refills, Maintenance, 04/30/23 14:32:00 EDT, Gel, [facility]/pharmacy #[id number], Partial fill upon [...] 11 Refills, Maintenance, 06/15/22 17:40:00EDT, Tablet, [facility]/pharmacy #[id number], Partial fill upon patient request if the prescription is for a schedule II opioid drug., 165, cm, 06/15/22 14:29:00 ED... Start Date: 06/15/22 Status: Ordered ibuprofen 600 mg oral tablet 600 mg, 1, tablet, By Mouth, 3 times a day, # 90 tablet, Refills 0, Tot. Refills 0, Maintenance, 09/06/22 21:10:00 EST, Route to Pharmacy Electronically, [facility]/pharmacy #[id number], Partial fill upon [...] 3 Refills, Maintenance, 04/30/23 14:32:00 EDT, Film, [facility]/pharmacy #[id number], Partial fill upon patient request if the prescription is for a schedule II opioid drug., 1 patch Top... Start Date: 04/30/23 Status: Ordered lidocaine 5% topical film 1 patch, Topically, Daily, PRN NEEDED FOR MODERATE PAIN, REMOVE AFTER 12 HOURS (12 HRS ON, 12 HRS OFF), # 10 patch, 0 Refills, Maintenance, 07/20/22 15:26:00 EDT, [id number], 10, APPLY 1 PATCH DAILY NEEDED FOR MODERATE PAIN..REMOVE AFTER 12... Start Date: 07/20/22 Status: Ordered Motrin IB 200 mg oral tablet 2 tablet = 400 mg, By Mouth, Every 6 hours, PRN for pain, # 120 tablet, 0 Refills, Maintenance, 03/17/23 20:06:00 EDT, Tablet, [facility]/pharmacy #[id number], Partial fill upon [...] capsule, 5 Refills, Maintenance, 03/03/23 15:23:00 EDT, [id number], 166, cm, 01/18/23 15:56:00 EDT, Height, 91, kg, 01/18/23 15:56:00 EDT, Dry Weight Start Date: 03/03/23 Status: Ordered OxyCONTIN 15 mg oral tablet, extended release 1 tablet = 15 mg, By Mouth, Every 12 hours, MassPAT checked dx: M54.5 on agreement do not fill until 03/24/23, # 60 tablet, 0 Refills, Maintenance, 04/11/23 12:33:00 EDT, ER Tablet, [id number], Partial fill [...] 04/19/23 20:48:00 EDT, Route to Pharmacy Electronically, [id number], 165, cm, 04/09/23 9:47:00 EDT, Height, 89.1, [...] EST, Supply Start Date: 12/12/22 Status: Ordered Chief Engineer Waterworks Chief Engineer Waterworks, See Instructions, # 1 each, Refills 0, [...] 03/17/23 20:06:00 EDT, Route to Pharmacy Electronically, [facility]/pharmacy #[id number], Partial fill upon patient request if the prescription is for... Start Date: 03/17/23 Status: Ordered Ventolin HFA 108 mcg/inh inhalation aerosol with adapter 2 puffs, Inhalation, 4 times a day, PRN NEEDED FOR WHEEZING, # 18 Gm, 11 Refills, Maintenance, 02/22/23 8:17:00 EDT, [facility]/pharmacy #[id number], 166, cm, 01/18/23 15:56:00 [...] Active [facility], active care coordination PADMINI Mata [phone] Confirmed Active Fatty infiltration of liver Confirmed Active Tubular adenoma of colon Confirmed Active 1history of this with surgical correction Results Radiology Reports * Exam Date Time Procedure Performing Provider Status 05/09/23 10:[address] Abdomen and Pelvi s W/O Contrast Italia Austin; Auth (Verified) Notes: (CT Abdomen and Pelvis W/O Contrast) Reason For Exam: Flank pain, kidney stone suspected;Other: RESULT: CT Abdomen and Pelvis W/O Contrast CT Abdomen and Pelvis W/O Contrast HX OF PRESENT ILLNESS: Sustained syncopal fall at home, states he was having a headache and tunnel vision was going to bathroom to splash water on face but passed out in hallway, +LOC unsure of headstrike. Not on thinners.; Reason: Flank pain, kidney stone suspected; Clinical Question(s): Calculus;Left Side flank TECHNIQUE: Spiral CT through the abdomen and pelvis without IV contrast formatted in 3 planes. Thisstudy was performed without oral contrast. Weight- based protocol using automatic tube modulation was used to optimize exposure parameters. CTDIvol Body: 6.10 mGy, DLP Body: 334 mGy*cm. COMPARISON: 11/07/2029 FINDINGS: Coat Ironer Hand View Findings, Lines and Tubes: None. Visualized Chest: Lung bases are clear. No pleural effusion. The heart is normal in size. No pericardial effusion. Diaphragm: Normal. Liver: The liver is incompletely included in the [id number]-rv-briy. The visualized portion is diffuselylow in attenuation, compatible with hepatic steatosis. Gallbladder: No CT evidence of gallbladder pathology. Bile ducts: No biliary ductal dilation. Spleen: Punctate calcified granuloma in the spleen. Pancreas: Normal. Adrenal glands: Normal. Kidneys and ureters: Punctate nonobstructing left lower pole calculus. No hydronephrosis. No ureteral calculi. No renal mass. Bladder: Normal. Reproductive organs: Unremarkable. Stomach, small bowel, and large bowel: Normal. Appendix: Normal. Peritoneum and retroperitoneum: No ascites or pneumoperitoneum. No omental or mesenteric lesions. Lymph nodes: No enlarged lymph nodes. Blood vessels: Normal. No aneurysm. Abdominal and pelvic wall: Unremarkable. Bones: No acute abnormality. IMPRESSION: 1. Punctate nonobstructing left lower pole renal calculus. No hydronephrosis. 2. Hepatic steatosis. WSN: [id number] Ordering Physician: Hermelindo Lozoya Dictated By: Jayce Mix MD Dictated Date/Time: 05/09/23 10:56 a Reviewed By: Jayce Mix MD Signed By: Jayce Mix MD Signed Date/Time: 05/09/23 10:56 am Transcribed By: HARPAL Transcribed Date/Time: 05/09/23 10:53 am * Exam Date Time Procedure Performing Provider Status 05/09/23 7:[address] Cervical Spine W/O Contrast Karol Sanders; Auth (Verified) Notes: (CT Cervical Spine W/O Contrast) Reason For Exam: Neck trauma, dangerous injury mechanism;Other: RESULT: CT Cervical Spine W/O Contrast CT Head/Brain W/O Contrast, CT Cervical Spine W/O Contrast INDICATION: Hx of Present Illness: Sustained syncopal fall at home, states he was having a headacheand tunnel vision was going to bathroom to splash water on face but passed out in hallway, +LOC unsure of headstrike. Not on thinners.; Reason: Trauma; Clinical Question(s): Hematoma TECHNIQUE: Noncontrast head CT using axial technique was reconstructed in axial and coronal planes.Noncontrast spiral CT through the cervical spine was formatted in 3 planes. Automatic tube modulation was used for the cervical spine and iterative dose reconstruction was used for both the head and cervical spine to optimize scan parameters and image quality. CTDIvol Body: 15.50 mGy, DLP Body: 402 mGy*cm. CTDIvol Head: 39.90 mGy, DLP Head: 671 mGy*cm. COMPARISON: None. FINDINGS: Coat Ironer Hand View Findings, Lines and Tubes: None. BRAIN AND EXTRA-AXIAL SPACES: No parenchymal hemorrhage, midline shift, or mass effect. Esparza-white matter differentiation is wellpreserved. No acute infarct. Ventricles, sulci, and basilar cisterns are normal. [...] No locked or perched facet. OTHER BONES: No acute abnormality. CERVICAL SOFT TISSUES AND LUNG APICES: Normal soft tissues. Visualized lung apices are clear. IMPRESSION: No acute abnormality of the head or cervical spine. WSN: [id number] Ordering Physician: Hermelindo Lozoya Dictated By: Jose Ashton MD Dictated Date/Time: 05/09/23 9:09 am Reviewed By: Jose Ashton MD Signed By: Jose Ashton MD Signed Date/Time: 05/09/23 9:09 am Transcribed By: HARPAL Transcribed Date/Time: 05/09/23 8:39 am * Exam Date Time Procedure Performing Provider Status 05/09/23 7:[address] Head/Brain W/O Contrast Karl Sanders; Auth (Verified) Notes: (CT Head/Brain W/O Contrast) Reason For Exam: Trauma RESULT: CT Head/Brain W/O Contrast CT Head/Brain W/O Contrast, CT Cervical Spine W/O Contrast INDICATION: Hx of Present Illness: Sustained syncopal fall at home, states he was having a headacheand tunnel vision was going to bathroom to splash water on face but passed out in hallway, +LOC unsure of headstrike. Not on thinners.; Reason: Trauma; Clinical Question(s): Hematoma TECHNIQUE: Noncontrast head CT using axial technique was reconstructed in axial and coronal planes.Noncontrast spiral CT through the cervical spine was formatted in 3 planes. Automatic tube modulation was used for the cervical spine and iterative dose reconstruction was used for both the head and cervical spine to optimize scan parameters and image quality. CTDIvol Body: 15.50 mGy, DLP Body: 402 mGy*cm. CTDIvol Head: 39.90 mGy, DLP Head: 671 mGy*cm. COMPARISON: None. FINDINGS: Coat Ironer Hand View Findings, Lines and Tubes: None. BRAIN AND EXTRA-AXIAL SPACES: No parenchymal hemorrhage, midline shift, or mass effect. Esparza-white matter differentiation is wellpreserved. No acute infarct. Ventricles, sulci, and basilar cisterns are normal. [...] No locked or perched facet. OTHER BONES: No acute abnormality. CERVICAL SOFT TISSUES AND LUNG APICES: Normal soft tissues. Visualized lung apices are clear. IMPRESSION: No acute abnormality of the head or cervical spine. WSN: [id number] Ordering Physician: Hermelindo Lozoya Dictated By: Jose Ashton MD Dictated Date/Time: 05/09/23 9:09 am Reviewed By: Jose Ashton MD Signed By: Jose Ashton MD Signed Date/Time: 05/09/23 9:09 am Transcribed By: HARPAL Transcribed Date/Time: 05/09/23 8:39 am * Exam Date Time Procedure Performing Provider Status 05/09/23 7:42 AM Chest 2 Views Frontal and Lat Dipesh Mora; July (Verified) Notes: (Chest 2 Views Frontal and Lat) Reason For Exam: Shortness of Breath, Fever;Other: RESULT: Chest 2 Views Frontal and Lat Chest 2 Views Frontal and Lat Hx of Present Illness: Sustained syncopal fall at home, states he was having a headache and tunnel vision was going to bathroom to splash water on face but passed out in hallway, +LOC unsure of headstrike. Not on thinners.; Reason: Other:; Shortness of Breath, Fever; Clinical Question(s): Pneumonia; Order Comment: COMPARISON: 03/17/2023 FINDINGS: LINES AND TUBES: None. LUNGS AND PLEURA: Clear lungs. Normal pulmonary vascularity. No pleural effusion. No pneumothorax. HEART, MEDIASTINUM AND YANETH: Heart is normal in size. Normal mediastinal and hilar contour. BONES AND SOFT TISSUES: No acute abnormality. Osteophytosis of the spine. IMPRESSION: No acute abnormality. WSN: [id number] Ordering Physician: Hermelindo Lozoya Dictated By: Jackie Bedolla MD Dictated Date/Time: 05/09/23 8:02 am Reviewed By: Jackie Bedolla MD Signed By: Jackie Bedolla MD Signed Date/Time: 05/09/23 8:02 am Transcribed By: HARPAL Transcribed Date/Time: 05/09/23 7:56 am Vital Signs Most recent to oldest [Reference Range]: 1 2 3 Height 165 cm (05/09/23 11:49 AM) 165 cm (05/09/23 6:17 AM) 165 cm (05/09/23 5:45 AM) Oxygen Saturation [94-100 %] 99 % (05/09/23 2:00 PM) 98 % (05/09/23 12:00 PM) 99 % (05/09/23 11:49 AM) Pulse Rate [55-90 bpm] 77 bpm (05/09/23 2:00 PM) 77 bpm (05/09/23 12:00 PM) 77 bpm (05/09/23 11:49 AM) Blood Pressure [90-138/55-84 mm Hg] 117/75mm Hg (05/09/23 2:00 PM) 126/75mm Hg (05/09/23 12:00 PM) 128/91mm Hg (05/09/23 11:49 AM) Respiratory Rate [16-30 br/min] 14 br/min *L* (05/09/23 2:00 PM) 12 br/min *L* (05/09/23 12:00 PM) 16 br/min (05/09/23 11:49 AM) Temperature [96.8-100.4 DegF] 97.9 DegF (05/09/23 5:45 AM) Mode of Delivery (Oxygen) Room air (05/09/23 2:00 PM) Room air (05/09/23 12:00 PM) Room air (05/09/23 11:49 AM) Blood pressure sites Arm, left (05/09/23 2:00 PM) Arm, left (05/09/23 12:00 PM) Arm, left (05/09/23 11:49 AM) Temperature Route Oral (05/09/23 5:45 AM) Dry Weight 89.2 kg (05/09/23 11:49 AM) 89.2 kg (05/09/23 6:17 AM) 89.2 kg (05/09/23 5:45 AM) Dry Weight Obtained Via Standing scale (05/09/23 5:45 AM) Social History Social History Type Response Smoking Status Former smoker; Other : Quit 2014; entered on: 09/10/17 Sex EKG study * Event Display: ECG 12-Lead Authored Date: Please click on pdf link to open report * Event Display: ECG 12-Lead Authored Date: Ventricular Rate: 84 BPM Atrial Rate: 84 BPM P-R Interval: 116 ms QRS Duration: 82 ms Q-T Interval: 376 ms QTC Calculation(Bazett): 444 ms P Stinnett: 29 degrees R Stinnett: 7 degrees T Stinnett: 22 degrees Normal sinus rhythm Normal ECG When compared with ECG of 17-MAR-2023 09:24, No significant change was found Confirmed by MARIE HARRIS MD ([id number]) on 05/09/2023 8:34:50 AM [place]: MARIE HARRIS MD Patient Care team information Care Team Personnel Name: Macarena Lewis RN Position: [facility] RN Member Role: Primary Care Nurse Name: Mallory Lugo RN Position: [facility] RN Member Role: Primary Care Nurse Name: Carmen Gao RN Position: [facility] RN Member Role: Primary Care Nurse Name: Dacia Evangelista RN Position: [facility] RN Member Role: Primary Care Nurse Name: Tracey Linares RN Position: [facility] AMB Nurse Member Role: Primary Care Nurse Name: Italia Ortega RN Position: [facility] RN Member Role: Primary Care Nurse Name: Catalina He RN Position: [facility] AMB Nurse Member Role: Primary Care Nurse Name: Cortez Golden RN Position: [facility] RN Member Role: Primary Care Nurse Name: Jessica Lantigua RN Position: [facility] RN Member Role: Primary Care Nurse Name: Catalina Pack RN Position: [facility] RN Member Role: Primary Care Nurse Name: Clifford Gerber RN Position: [facility] RN Member Role: Primary Care Nurse Name: Peter Monahan RN Position: [facility] RN Member Role: Primary Care Nurse Name: Aziza Poole RN Position: [facility] RN Member Role: Primary Care Nurse Name: Katheryn Wu RN Position: [facility] RN Member Role: Primary Care Nurse Name: Doris Dee RN Position: [facility] RN Member Role: Primary Care Nurse Name: Janae Soto RN Position: [facility] RN Member Role: Primary Care Nurse Name: Hyun Ochoa RN Position: [facility] RN Member Role: Primary Care Nurse Name: Nancy Magana RN Position: [facility] RN Member Role: Primary Care Nurse Name: Ranjana Zavala RN Position: [facility] RN Member Role: Primary Care Nurse Name: Melvi Carter RN Position: [facility] OB RN Member Role: Primary Care Nurse Name: Jackson Rosen RN Position: [facility] RN Member Role: Primary Care Nurse Name: Clarissa Rodriguez RN Position: [facility] RN Supv Member Role: Primary Care Nurse Name: Ophelia Marie RN Position: [facility] RN Member Role: Primary Care Nurse Name: Nolvia Mendes RN Position: [facility] RN Member Role: Primary Care Nurse Name: Adi Rees RN Position: [facility] RN Member Role: Primary Care Nurse Name: Alonzo Esposito DO Position: [facility] Resident Member Role: PCP Address: Address: [address] [place] [id number]- Name: Doroteo Morrow RN Position: [facility] RN Member Role: Primary Care Nurse Address: Address: [address] [place] [id number]- Name: Cassidy Masters RN Position: [facility] RN Member Role: Primary Care Nurse Name: Juancarlos Valente RN Position: [facility] Hospital Veterinary Bacteriologist Member Role: Primary Care Nurse Name: Hermelindo Foss Position: [facility] Associate Professional Member Role: ED Physician [employer] Address: Address: [address] [place] [id number]- Name: Shauna Giles RN Position: [facility] ED RN W/OE and Tasks Member Role: Patient Care Provider Name: Mattie Cabrera Position: [facility] ED [facility] Name: Yony Lorenzana MD Position: [facility] Resident Member Role: Admitting Physician Address: Address: [address] [place] [id number]- Care Team Related Persons Name: SYLVIA BARBOSA Address: home [address] [place] [address] Name: GAGE HUNT Address: home [address] [place] [id number] Name: JOCELYN HUNT Address: [address] [address]
--- OUTSIDE RECORDS SUMMARY | 2024-05-24 04:38 | XMS_ITS | Continuity of Care Document ---
Author Organization [facility] Address [address] [place] [address]- Care Team Providers Care Hire Car Driver Name Role Phone Vaibhav RAWLS, Alonzo Primary Care Physician En[place] [facility] [place] 09/13/23 - 09/20/23 [facility] [address] [place], [place] [address] Attending Physician: Luis Acharya MD Referring Physician: Clint Puga MD Allergies, [...] influenza virus vaccine, inactivated 12/06/15 Give n [id number] 12y+ bivalent booster vax 11/03/22 Given SARS-CoV-2 mRNA ([id number]) vax 01/26/22 Given SARS-CoV-2 mRNA ([id number]-[id number]-[id number]) vax 12/28/21 Given tetanus/diphtheria/pertussis, acel(Tdap) 03/29/19 Given tetanus/diphtheria/pertussis, acel(Tdap) 09/10/17 Given pneumococcal 23-valent vaccine 04/08/18 Recorded pneumococcal 23-valent vaccine 04/22/17 Recorded pneumococcal 23-valent vaccine 12/21/12 Given Medications aspirin 81 mg oral delayed release tablet 81 mg, By Mouth, Daily, # 30 tablet, Refills 11, Tot. Refills 11, Maintenance, 09/12/23 17:42:00 EST, Route to Pharmacy Electronically, [facility] [id number], For blister pack please., 166, cm, 09/12/23 13:54:00 EST, Height, 9... Start Date: 09/12/23 Status: Ordered atorvastatin 40 mg oral tablet 1 tablet = 40 mg, By Mouth, Daily, # 30 tablet, 11 Refills, Maintenance, 09/12/23 17:42:00 EST, Tablet, [facility] [id number], For blister pack please., 166, cm, 09/12/23 13:54:00 EST, Height, 93, kg, 09/06/23 16:15:00 EST, DrLisa Start Date: 09/12/23 Stop Date: 09/06/24 Status: Ordered FLUoxetine 20 mg oral capsule 60 mg, 3, capsule, By Mouth, Daily, TAKE 3 CAPSULES BY MOUTH EVERY DAY IN THE MORNING, # 90 capsule, Refills 11, Tot. Refills 11, Maintenance, 09/12/23 17:44:00 EST, Route to Pharmacy Electronically,[facility] [id number], for... Start Date: 09/12/23 Status: Ordered gabapentin 300 mg oral capsule 300 mg, 1, capsule, By Mouth, 2 times a day, # 60 capsule, Refills 11, Tot. Refills 11, Maintenance, 09/12/23 17:42:00 EST, Route to Pharmacy Electronically, [facility] [id number], For blister pack please., 166, cm, 09/12/23 1... Start Date: 09/12/23 Status: Ordered nitroglycerin 0.4 mg sublingual tablet 1 tablet = 0.4 mg, Sublingual, Every 5 minutes, PRN Chest Pain, # 100 tablet, 0 Refills, Maintenance, 06/08/23 16:23:00 EDT, Tablet, [facility]/pharmacy #[id number], Partial fill upon patient request if the prescription is for a schedule II opioid drug., 165, cm,... Start Date: 06/08/23 Status: Ordered OxyCONTIN 15 mg oral tablet, extended release 1 tablet = 15 mg, By Mouth, Every 12 hours, dx: M54.5 MassPAT checked; appropriate, # 60 tablet, 0 Refills, Maintenance, 08/14/23 13:55:00 EDT, ER Tablet, [facility]/pharmacy #[id number], Partial fill upon patient request if the prescription is for a schedule II... Start Date: 08/14/23 Stop Date: 09/13/23 Status: Ordered propranolol 20 mg oral tablet 2, tablet, By Mouth, 2 times a day, # 120 tablet, Refills 11, Tot. Refills 11, Maintenance, 09/12/23 17:42:00 EST, Route to Pharmacy Electronically, [facility] [id number], For blister pack please., 166, cm, 09/12/23 13:54:00 E... Start Date: 09/12/23 Status: Ordered risperiDONE 2 mg oral tablet 4 mg, 2, tablet, By Mouth, Daily at bedtime, Rx'd by psychiatry, # 60 tablet, Refills 11, Tot. Refills 11, Maintenance, 09/12/23 17:44:00 EST, Route to Pharmacy Electronically, [place], [place] - [id number], for blister pack, 166, cm... Start Date: 09/12/23 Status: Ordered traZODone 100 mg oral tablet 50 mg, 0.5, tablet, By Mouth, Daily at bedtime, # 15 tablet, Refills 11, Tot. Refills 11, Maintenance, 09/12/23 17:44:00 EST, Route to Pharmacy Electronically, [facility] [id number], Partial fill upon patient request if the pr... Start Date: 09/12/23 Status: Ordered Ventolin HFA 108 mcg/inh inhalation aerosol with adapter 2 puffs, Inhalation, 4 times a day, PRN NEEDED FOR WHEEZING, # 18 Gm, 11 Refills, Maintenance, 02/22/23 8:17:00 EDT, [facility]/pharmacy #[id number], 166, cm, 01/18/23 [...] [facility], active care coordination [facility] [phone] Confirmed Active Fatty infiltration of liver Confirmed Active Tubular adenoma of colon Confirmed Active 1history of this with surgical correction Vital Signs Most recent to oldest [Reference Range]: 1 Height 166 cm (09/13/23 7:42 AM) Weight 88.9 kg (09/13/23 7:42 AM) Oxygen Saturation [94-100 %] 99 % (09/13/23 7:42 AM) Pulse Rate [55-90 bpm] 85 bpm (09/13/23 7:42 AM) Body Mass Index [18.5-24.99 kg/m2] 32.26 kg/m2 *>HHI* (09/13/23 7:42 AM) Blood Pressure [90-138/55-84 mm Hg] 126/ 83mm Hg (09/13/23 7:42 AM) Respiratory Rate [16-30 br/min] 18 br/mi n (09/13/23 7:42 AM) Blood pressure sites Arm, right (09/13/23 7:42 AM) Weight Obtained Via Standing scale (09/13/23 7:42 AM) Social History Social History Type Response Smoking Status Former smoker; Other : Quit 2014; entered on: 09/10/17 Sex Patient Care team information Care Team Personnel Name: Elvia Collins RN Position: [facility] RN Member Role: Primary Care Nurse Name: Macarena Lewis RN Position: [facility] RN Member Role: Primary Care Nurse Name: Mallory Lugo RN Position: [facility] RN Member Role: Primary Care Nurse Name: Carmen Gao RN Position: [facility] ED RN W/OE and Tasks Member Role: Primary Care Nurse Name: Dacia Evangelista RN Position: [facility] RN Member Role: Primary Care Nurse Name: Tracey Linares RN Position: [facility] AMB Nurse Member Role: Primary Care Nurse Name: Italia Ortega RN Position: [facility] RN Member Role: Primary Care Nurse Name: Catalina He RN Position: [facility] AMB Nurse Member Role: Primary Care Nurse Name: Jessica Lantigua RN Position: [facility] SN RN Member Role: Primary Care Nurse Name: Catalina Pack RN Position: [facility] SN RN Member Role: Primary Care Nurse Name: Clifford Gerber RN Position: [facility] RN Member Role: Primary Care Nurse Name: Doris Butler RN Position: [facility] RN Member Role: Primary Care Nurse Name: Aziza Poole RN Position: [facility] RN Member Role: Primary Care Nurse Name: Monet Miller RN Position: [facility] RN Member Role: Primary Care Nurse Name: Katheryn Wu RN Position: [facility] RN Member Role: Primary Care Nurse Name: Doris Dee RN Position: [facility] RN Member Role: Primary Care Nurse Name: Janae Soto RN Position: [facility] RN Member Role: Primary Care Nurse Name: Daphney Echols LPN Position: [facility] RN Member Role: Primary Care Nurse Name: Nini Odonnell RN Position: [facility] RN Member Role: Primary Care Nurse Name: Jennifer Thakkar RN Position: [facility] RN Member Role: Primary Care Nurse Name: Hyun Ochoa RN Position: [facility] RN Member Role: Primary Care Nurse Name: Yazmin Lay RN Position: [facility] RN Member Role: Primary Care Nurse Name: Nancy Magana RN Position: [facility] RN Member Role: Primary Care Nurse Name: Ranjana Zavala RN Position: [facility] RN Member Role: Primary Care Nurse Name: Melvi Carter RN Position: [facility] OB RN Member Role: Primary Care Nurse Name: Jackson Rosen RN Position: [facility] RN Member Role: Primary Care Nurse Name: Clarissa Rodriguez RN Position: [facility] RN Supv Member Role: Primary Care Nurse Name: Ophelia Marie RN Position: [facility] RN Member Role: Primary Care Nurse Name: Nolvia Mendes RN Position: [facility] RN Member Role: Primary Care Nurse Name: Tyrone Germain RN Position: [facility] RN Member Role: Primary Care Nurse Name: Adi Rees RN Position: [facility] RN Member Role: Primary Care Nurse Name: Orlando Mcallister RN Position: [facility] RN Member Role: Primary Care Nurse Name: Alisa Mcallister RN Position: [facility] RN Member Role: Primary Care Nurse Name: Alonzo Esposito MD Position: [facility] Physician - Primary Care Member Role: PCP Address: Address: [address] [place] [address]- Name: Doroteo Morrow RN Position: [facility] RN Member Role: Primary Care Nurse Address: Address: [address] [place] [address]- Name: Cassidy Masters RN Position: [facility] RN Member Role: Primary Care Nurse Name: Juancarlos Valente RN Position: [facility] Hospital Sheet Metal Welder Member Role: Primary Care Nurse Name: Tran Wiseman RN Position: [facility] RN Member Role: Primary Care Nurse Care Team Related Persons Name: SYLVIA BARBOSA Address: home [address] [place] [id number] Name: GAGE HUNT Address: [address] [place] [address] Name: JOCELYN HUNT Address: home [address] [place] [address]
--- OUTSIDE RECORDS SUMMARY | 2024-05-24 04:38 | XMS_ITS | Continuity of Care Document ---
Author Organization [facility] Address [address] [place] [address]- Care Team Providers Care Food Runner Name Role Phone Dawna Hernandez MD Primary Care Physician [phone] Encounter [facility] Date(s): 12/01/22 - 01/10/[address] [address] Attending Physician: Dawna Hernandez MD Admitting Physician: Dawna Hernandez MD Referring Physician: Dawna Hernandez MD Allergies, Adverse Reactions, Alerts Substance Reaction Severity Status lisinopril Angioedema Active Shrimp Active Immunizations Given and Recorded Vaccine Date Status Refusal Reason [id number] 12y+ bivalent booster vax 11/03/22 Given influenza virus vaccine, inactivated 11/03/22 Give n influenza virus vaccine, inactivated 02/15/22 Give n influenza virus vaccine, inactivated 09/01/20 Give n influenza virus vaccine, inactivated 09/15/19 Give n influenza virus vaccine, inactivated 11/19/18 Give n influenza virus vaccine, inactivated 09/10/17 Give n influenza virus vaccine, inactivated 12/06/15 Give n SARS-CoV-2 mRNA ([id number]-[id number]) vax 01/26/22 Given SARS-CoV-2 mRNA ([id number]-[id number]-bqvmq) vax 12/28/21 Given tetanus/diphtheria/pertussis, acel(Tdap) 03/29/19 Given [...] 3 Refills, Maintenance, 05/11/22 14:22:00 EDT, Tablet, [facility]/pharmacy #[id number], Partial fill upon patient [...] tablet, 1 Refills, Maintenance, 04/05/22 7:53:00 EDT, [facility]/pharmacy #[id number], 165, cm, 02/15/22 10:35:00 EDT, Height, 90.7, kg, 02/06/22 19:49:00 EDT, Dry Weight Start Date: 04/05/22 Status: Ordered Colace sodium 100 mg oral capsule 100 mg, 1, capsule, By Mouth, 2 times a day, PRN, # 20 capsule, Refills 0, Tot. Refills 0, Maintenance, for constipation, 09/22/22 9:53:00 EST, Route to Pharmacy Electronically, [facility]/pharmacy #[id number], Partial fill upon patient [...] 0 Refills, Maintenance, 01/04/23 12:39:00 EDT, Tablet, [facility]/pharmacy #[id number], Partial fill upon patient request if the [...] tablet, 11 Refills, Maintenance, 06/15/22 17:40:00EDT, Tablet, [facility]/pharmacy #[id number], Partial fill upon patient request if the prescription is for a schedule II opioid drug., 165, cm, 06/15/22 14:29:00 ED... Start Date: 06/15/22 Status: Ordered ibuprofen 600 mg oral tablet 600 mg, 1, tablet, By Mouth, 3 times a day, # 90 tablet, Refills 0, Tot. Refills 0, Maintenance, 09/06/22 21:10:00 EST, Route to Pharmacy Electronically, [facility]/pharmacy #[id number], Partial fill upon patientrequest [...] patch, 0 Refills, Maintenance, 07/20/22 15:26:00 EDT, [facility] STORE [id number], 10, APPLY 1 PATCH DAILY NEEDED FOR MODERATE PAIN..REMOVE AFTER 12... Start Date: 07/20/22 Status: Ordered nitroglycerin 0.4 mg sublingual tablet 1 tablet = 0.4 mg, Sublingual, Every 5 minutes, PRN Chest Pain, # 100 tablet, 0 Refills, Maintenance, 11/06/22 13:52:00 EST, Tablet, [facility]/pharmacy #[id number], Partial fill upon patient request if the prescription is for a schedule II opioid drug., 175, cm,... Start Date: 11/06/22 Status: Ordered omeprazole 20 mg oral enteric coated capsule 1 capsule = 20 mg, By Mouth, Daily, # 30 capsule, 1 Refills, Maintenance, 01/04/23 12:40:00 EDT, ECCapsule, [facility]/pharmacy #[id number], Partial fill upon patient request if the prescription is for a schedule II opioid drug., 165, cm, 01/04/23 9:35:00 EDT, He... Start Date: 01/04/23 Status: Ordered OxyCONTIN 15 mg oral tablet, extended release 1 tablet = 15 mg, By Mouth, Every 12 hours, dx: M54.[address] oxycodone, # 60 tablet, 0 Refills, Maintenance, 12/01/22 12:02:00 EST, ER Tablet, [facility]/pharmacy #[id number], Partial fill upon patient [...] tablet, Refills 5, Route to Pharmacy Electronically, [id number], 166, cm, 12/28/21 10:33:00 EDT, Height, 91.9, [...] EST, Supply Start Date: 12/12/22 Status: Ordered Supervisor Labor Gang Supervisor Labor Gang, See Instructions, # 1 each, Refills 0, [...] each, 0 Refills, Maintenance, 12/12/22 12:14:00 EST, [facility] [id number], 175, cm, 11/15/22 9:07:00 EST, Height, 88.2, [...] Health retirement, active care coordination PADMINI Mata [phone] Confirmed Active Fatty infiltration of liver Confirmed Active Tubular adenoma of colon Confirmed Active 1history of this with surgical correction Social History Social History Type Response Smoking Status Former smoker; Other : Quit 2014; entered on: 09/10/17 Sex Patient Care team information Care Team Personnel Name: Macarena Lewis RN Position: [facility] RN Member Role: Primary Care Nurse Name: Mallory Lugo RN Position: [facility] RN Member Role: Primary Care Nurse Name: Carmen Gao RN Position: [facility] RN Member Role: Primary Care Nurse Name: Dacia Evangelista RN Position: [facility] RN Member Role: Primary Care Nurse Name: Tracey Linares RN Position: [facility] PCO RN Member Role: Primary Care Nurse Name: Italia Ortega RN Position: [facility] RN Member Role: Primary Care Nurse Name: Catalina He RN Position: [facility] AMB Nurse Member Role: Primary Care Nurse Name: Cortez Golden RN Position: [facility] RN Member Role: Primary Care Nurse Name: Jessica Lantigua RN Position: [facility] SN RN Member Role: Primary Care Nurse Name: Clifford Gerber RN Position: [facility] RN Member Role: Primary Care Nurse Name: Peter Monahan RN Position: [facility] RN Member Role: Primary Care Nurse Name: Aziza Poole RN Position: [facility] RN Member Role: Primary Care Nurse Name: Monet Miller RN Position: [facility] RN Member Role: Primary Care Nurse Name: Katheryn Wu RN Position: [facility] RN Member Role: Primary Care Nurse Name: Doris Dee RN Position: [facility] RN Member Role: Primary Care Nurse Name: Janae Soto RN Position: [facility] RN Member Role: Primary Care Nurse Name: Hyun Ochoa RN Position: [facility] RN Member Role: Primary Care Nurse Name: Nancy Magana RN Position: [facility] RN Member Role: Primary Care Nurse Name: Ranjana Zavala RN Position: [facility] RN Member Role: Primary Care Nurse Name: Melvi Carter RN Position: [facility] OB RN Member Role: Primary Care Nurse Name: Jackson Rosen RN Position: [facility] RN Member Role: Primary Care Nurse Name: Clarissa Rodriguez RN Position: [facility] RN Supv Member Role: Primary Care Nurse Name: Ophelia Marie RN Position: [facility] RN Member Role: Primary Care Nurse Name: Nolvia Mendes RN Position: [facility] RN Member Role: Primary Care Nurse Name: Adi Rees RN Position: [facility] RN Member Role: Primary Care Nurse Name: Catalina Torres RN Position: [facility] RN Member Role: Primary Care Nurse Name: Doroteo Morrow RN Position: [facility] RN Member Role: Primary Care Nurse Address: Address: [address] [place] [address]- Name: Cassidy Masters RN Position: [facility] RN Member Role: Primary Care Nurse Name: Juancarlos Valente RN Position: [facility] Hospital Tunnel Heading Supervisor Member Role: Primary Care Nurse Name: Dawna Hernandez MD Position: [facility] Primary Care Physician Member Role: PCP Address: Address: [address] [place] [address]- Care Team Related Persons Name: SYLVIA BARBOSA Address: home [address] [place] [address] Name: GAGE HUNT Address: [address] [place] [address] Name: JOCELYN HUNT Address: home [address] [place] [address]
--- OUTSIDE RECORDS SUMMARY | 2024-05-24 04:39 | XMS_ITS | Continuity of Care Document ---
Author Organization [facility] Address [address] [place] [address]- Care Team Providers Care Box Order Person Name Role Phone Alonzo Esposito MD Primary Care Physician Encounter [facility] Date(s): 03/03/24 - 04/02/[address] [address] Allergies, Adverse Reactions, Alerts Substance [...] influenza virus vaccine, inactivated 12/06/15 Give n [id number] 12y+ bivalent booster vax 11/03/22 Given SARS-CoV-2 mRNA (izslblr-qcjp-pypaw) vax 01/26/22 Given SARS-CoV-2 mRNA (aqsspxc-tptz-jufgw) vax 12/28/21 Given pneumococcal 23-valent vaccine 04/08/18 Recorded pneumococcal 23-valent vaccine 04/22/17 Recorded pneumococcal 23-valent vaccine 12/21/12 Given 1Result Comment: [facility] Medications acetaminophen 325 mg oral tablet 650 mg, 2, tablet, By Mouth, Every 6 hours, PRN, # 120 tablet, Refills 0, Tot. Refills 0, Maintenance, for pain, 02/27/24 18:13:00 EDT, [id number] Partial fill upon patient request if the prescription is for... Start Date: 02/27/24 Status: Ordered amoxicillin 500 mg oral capsule 4 capsule = 2,000 mg, By Mouth, Once, given 1 hour prior to the dental procedure, # 4 capsule, 0 Refills, Soft Stop, 03/18/24 8:57:00 EDT, Capsule, [facility]/pharmacy #[id number], Partial fill upon patient request if the prescription is for a schedule II opioid d... Start Date: 03/18/24 Status: Ordered aspirin 81 mg oral delayed release tablet 81 mg, By Mouth, Daily, # 30 tablet, Refills 11, Tot. Refills 11, Maintenance, 09/12/23 17:42:00 EST, Route to Pharmacy Electronically, [place], [place] - [id number], For blister pack please., 166, cm, 09/12/23 13:54:00 EST, Height, 9... Start Date: 09/12/23 Status: Ordered atorvastatin 40 mg oral tablet 1 tablet = 40 mg, By Mouth, Daily, # 30 tablet, 11 Refills, Maintenance, 09/12/23 17:42:00 EST, Tablet, [place], [place] - [id number], For blister pack please., 166, cm, 09/12/23 13:54:00 EST, Height, 93, kg, 09/06/23 16:15:00 EST, Start Date: 09/12/23 Stop Date: 09/06/24 Status: Ordered diclofenac 1% topical gel 1 application, Topically, 4 times a day, PRN Pain , Mild, not to exceed 16 grams/day/single joint of lower extremities, # 100 Gm, 3 Refills, Maintenance, 11/30/23 9:43:00 EST, Gel[id number] Partial fill upon patient request if the prescript... Start Date: 11/30/23 Status: Ordered FLUoxetine 20 mg oral capsule 60 mg, 3, capsule, By Mouth, Daily, TAKE 3 CAPSULES BY MOUTH EVERY DAY IN THE MORNING, # 90 capsule, Refills 11, Tot. Refills 11, Maintenance, 09/12/23 17:44:00 EST, Route to Pharmacy Electronically,[place], [place] - [id number], for... Start Date: 09/12/23 Status: Ordered gabapentin 800 mg oral tablet 1 tablet = 800 mg, By Mouth, 3 times a day, # 90 tablet, 3 Refills, Maintenance, 02/29/24 9:58:00 EDT, Tablet, [facility]/pharmacy #[id number], Partial fill upon patient request if the prescription is for a schedule II opioid drug., 165, cm, 02/29/24 9:45:00 EDT,... Start Date: 02/29/24 Status: Ordered nitroglycerin 0.4 mg sublingual tablet 1 tablet = 0.4 mg, Sublingual, Every 5 minutes, PRN Chest Pain, # 100 tablet, 0 Refills, Maintenance, 06/08/23 16:23:00 EDT, Tablet, [facility]/pharmacy #[id number], Partial fill upon patient request if the prescription is for a schedule II opioid drug., 165, cm,... Start Date: 06/08/23 Status: Ordered oxyCODONE 15 mg oral tablet 1 tablet = 15 mg, By Mouth, Every 6 hours, PRN Pain , Severe, controlled substance agreement., # 120 tablet, 0 Refills, Maintenance, 02/29/24 10:11:00 EDT, Tablet, [facility]/pharmacy #[id number], Partial fill upon patient request if the prescription is for a sche... Start Date: 02/29/24 Status: Ordered propranolol 20 mg oral tablet TAKE 1 TABLET BY MOUTH ONCE DAILY NEEDED Start Date: 03/31/24 Status: Ordered risperiDONE 2 mg oral tablet 4 mg, 2, tablet, By Mouth, Daily at bedtime, Rx'd by psychiatry, # 60 tablet, Refills 11, Tot. Refills 11, Maintenance, 09/12/23 17:44:00 EST, Route to Pharmacy Electronically, [place], [place] - [id number], for blister pack, 166, cm... Start Date: 09/12/23 Status: Ordered tiZANidine 2 mg oral tablet 4 mg, 2, tablet, By Mouth, Every 8 hours, # 180 tablet, Refills 3, Tot. Refills 3, Maintenance, 02/29/24 9:59:00 EDT, Route to Pharmacy Electronically, [facility]/pharmacy #[id number], Partial fill upon patient request if [...] 11 Refills, Maintenance, 02/22/23 8:17:00 EDT, [facility]/pharmacy #[id number], 166, cm, 01/18/23 15:56:00 EDT, Height, [...] Active Right knee pain Confirmed Active Health group home, active care coordination [facility] [phone] Confirmed Active Cervical stenosis of spine Confirmed [...] Care Nurse Name: Mallory Lugo RN Position: [facility] RN Member Role: Primary Care Nurse Name: Carmen Gao RN Position: [facility] ED RN W/OE and Tasks Member Role: Primary Care Nurse Name: Dacia Evangelista RN Position: [facility] RN Member Role: Primary Care Nurse Name: Tracey Linares RN Position: [facility] AMB Nurse Member Role: Primary Care Nurse Name: Italia Ortega RN Position: [facility] RN Member Role: Primary Care Nurse Name: Catalina He RN Position: [facility] AMB Nurse Member Role: Primary Care Nurse Name: Cortez Golden RN Position: [facility] RN Member Role: Primary Care Nurse Name: Jessica Lantigua RN Position: [facility] SN RN Member Role: Primary Care Nurse Name: Catalina Pack RN Position: [facility] SN RN Member Role: Primary Care Nurse Name: Clifford Gerber RN Position: [facility] RN Member Role: Primary Care Nurse Name: Doris Butler RN Position: [facility] RN Member Role: Primary Care Nurse Name: Aziza Poole RN Position: [facility] RN Member Role: Primary Care Nurse Name: Katheryn Wu RN Position: [facility] SN RN Member Role: Primary Care Nurse Name: Doris Dee RN Position: [facility] RN Member Role: Primary Care Nurse Name: Janae Soto RN Position: [facility] RN Member Role: Primary Care Nurse Name: Daphney Echols LPN Position: [facility] RN Member Role: Primary Care Nurse Name: Nini Odonnell RN Position: [facility] RN Member Role: Primary Care Nurse Name: Jennifer Thakkar RN Position: [facility] RN Member Role: Primary Care Nurse Name: Hyun Ochoa RN Position: [facility] RN Member Role: Primary Care Nurse Name: Ruth Lay RN Position: [facility] RN Member Role: Primary Care Nurse Name: Ranjana Zavala RN Position: [facility] RN Member Role: Primary Care Nurse Name: Melvi Carter RN Position: [facility] OB RN Member Role: Primary Care Nurse Name: Jackson Rosen RN Position: [facility] RN Member Role: Primary Care Nurse Name: Clarissa Rodriguez RN Position: [facility] RN Supv Member Role: Primary Care Nurse Name: Ophelia Marie RN Position: [facility] SN RN Member Role: Primary Care Nurse Name: Nolvia Mendes RN Position: [facility] RN Member Role: Primary Care Nurse Name: Tyrone Germain RN Position: [facility] RN Member Role: Primary Care Nurse Name: Adi Rees RN Position: [facility] RN Member Role: Primary Care Nurse Name: Alonzo Esposito MD Position: [facility] Physician - Primary Care Member Role: PCP Address: Address: [address] [place] [id number] Name: Cassidy Masters RN Position: [facility] RN Member Role: Primary Care Nurse Name: Juancarlos Valente RN Position: [facility] [employer] Member Role: Primary Care Nurse Name: Tran Wiseman RN Position: [facility] RN Member Role: Primary Care Nurse Care Team Related Persons Name: SYLVIA BARBOSA Address: [address] [address] Name: GAGE HUNT Address: [address] [place] [address] Name: JOCELYN HUNT Address: home [address] [place] [address]
--- OUTSIDE RECORDS SUMMARY | 2024-05-24 04:39 | XMS_ITS | Continuity of Care Document ---
Author Organization [facility] Address [address] [place] [address]- Care Team Providers Care Watch Supervisor Name Role Phone Alonzo Esposito MD Primary Care Physician Encounter [id number] Date(s): 01/17/24 - 02/16/[address] [address]- Attending Physician: AdmLori sandhu Admitting Physician: Admtr, [...] influenza virus vaccine, inactivated 12/06/15 Give n [id number] 12y+ bivalent booster vax 11/03/22 Given SARS-CoV-2 mRNA (orotmgl-ssgs-vsbkp) vax 01/26/22 Given SARS-CoV-2 mRNA (qphgmme-rbhb-odwpk) vax 12/28/21 Given pneumococcal 23-valent vaccine 04/08/18 Recorded pneumococcal 23-valent vaccine 04/22/17 Recorded pneumococcal 23-valent vaccine 12/21/12 Given 1Result Comment: [facility] Medications aspirin 81 mg oral delayed release tablet 81 mg, By Mouth, Daily, # 30 tablet, Refills 11, Tot. Refills 11, Maintenance, 09/12/23 17:42:00 EST, Route to Pharmacy Electronically, [facility] [id number], For blister pack please., 166, cm, 09/12/23 13:54:00 EST, Height, 9... Start Date: 09/12/23 Status: Ordered atorvastatin 40 mg oral tablet 1 tablet = 40 mg, By Mouth, Daily, # 30 tablet, 11 Refills, Maintenance, 09/12/23 17:42:00 EST, Tablet, [facility] [id number], For blister pack please., 166, cm, 09/12/23 [...] Maintenance, 09/12/23 17:44:00 EST, Route to Pharmacy Electronically,[facility] [id number], for... Start Date: 09/12/23 Status: Ordered gabapentin 600 mg oral tablet = 600 mg, By Mouth, 2 times a day, # 60 tablet, 4 Refills, Maintenance, 11/30/23 9:35:00 EST, Tablet, [facility]/pharmacy #[id number], Partial [...] 0 Refills, Maintenance, 02/07/24 10:09:00 EDT, Tablet, [facility]/pharmacy #[id number], Partial fill upon patient request if the prescription is for a sche... Start Date: 02/07/24 Status: Ordered propranolol 20 mg oral tablet 2, tablet, By Mouth, 2 times a day, # 120 tablet, Refills 11, Tot. Refills 11, Maintenance, 09/12/23 17:42:00 EST, Route to Pharmacy Electronically, [facility] [id number], For blister pack please., 166, cm, 09/12/23 13:54:00 E... Start Date: 09/12/23 Status: Ordered risperiDONE 2 mg oral tablet 4 mg, 2, tablet, By Mouth, Daily at bedtime, Rx'd by psychiatry, # 60 tablet, Refills 11, Tot. Refills 11, Maintenance, 09/12/23 17:44:00 EST, Route to Pharmacy Electronically, [facility] [id number], for blister pack, 166, cm... Start Date: 09/12/23 Status: Ordered traZODone 100 mg oral tablet 50 mg, 0.5, tablet, By Mouth, Daily at bedtime, # 15 tablet, Refills 11, Tot. Refills 11, Maintenance, 09/12/23 17:44:00 EST, Route to Pharmacy Electronically, [facility] [id number], Partial fill upon patient request if the [...] Active Right knee pain Confirmed Active Health half-way, [facility] care [facility] [phone] Confirmed Active Cervical stenosis of spine Confirmed [...] Display: Case Management Discharge Plan Authored Date: [id number] Patient: JAMARCUS BARBOSA Age: 49 years Sex: Male : 1970 Associated Diagnoses: None Author: Elvia Metcalf RN Unable to reach pt for follow up call. Call placed to Pt. [phone] the telephone # you have dialed is temporarily not in service . Centricity indicates Pt. has pending PCP appt. 10/16/19 9:00am/Dr. Hernandez. Patient Care team information Care Team Personnel Name: Elvia Collins RN Position: [facility] RN Member Role: Primary Care Nurse Name: Macarena Lewis RN Position: [facility] RN Member Role: Primary Care Nurse Name: Mallory Lugo RN Position: [facility] RN Member Role: Primary Care Nurse Name: Carmen Gao RN Position: [facility] ED RN W/OE and Tasks Member Role: Primary Care Nurse Name: Dacia Evangelista RN Position: [facility] RN Member Role: Primary Care Nurse Name: Tracey Linares RN Position: [facility] AMB Nurse Member Role: Primary Care Nurse Name: Italia Ortega RN Position: [facility] RN Member Role: Primary Care Nurse Name: Catalina He RN Position: [facility] AMB Nurse Member Role: Primary Care Nurse Name: Cortez Golden RN Position: [facility] RN Member Role: Primary Care Nurse Name: Jessica Lantigua RN Position: [facility] SN RN Member Role: Primary Care Nurse Name: Catalina Pack RN Position: [facility] SN RN Member Role: Primary Care Nurse Name: Clifford Gerber RN Position: [facility] RN Member Role: Primary Care Nurse Name: Doris Butler RN Position: [facility] RN Member Role: Primary Care Nurse Name: Aziza Poole RN Position: [facility] RN Member Role: Primary Care Nurse Name: Katheryn Wu RN Position: [facility] RN Member Role: Primary Care Nurse Name: Doris Dee RN Position: [facility] RN Member Role: Primary Care Nurse Name: Janae Soto RN Position: [facility] RN Member Role: Primary Care Nurse Name: Daphney Echols LPN Position: [facility] RN Member Role: Primary Care Nurse Name: Nini Odonnell RN Position: [facility] RN Member Role: Primary Care Nurse Name: Jennifer Thakkar RN Position: [facility] RN Member Role: Primary Care Nurse Name: Hyun Ochoa RN Position: [facility] RN Member Role: Primary Care Nurse Name: Yazmin Lay RN Position: [facility] RN Member Role: Primary Care Nurse Name: Ranjana Zavala RN Position: [facility] RN Member Role: Primary Care Nurse Name: Melvi Carter RN Position: [facility] OB RN Member Role: Primary Care Nurse Name: Jackson Rosen RN Position: [facility] RN Member Role: Primary Care Nurse Name: Clarissa Rodriguez RN Position: [facility] RN Supv Member Role: Primary Care Nurse Name: Ophelia Marie RN Position: [facility] RN Member Role: Primary Care Nurse Name: Nolvia Mendes RN Position: [facility] RN Member Role: Primary Care Nurse Name: Tyrone Germain RN Position: [facility] RN Member Role: Primary Care Nurse Name: Adi Rees RN Position: [facility] RN Member Role: Primary Care Nurse Name: Alonzo Esposito MD Position: [facility] Physician - Primary Care Member Role: PCP Address: Address: [address] [place] [address]- Name: Cassidy Masters RN Position: [facility] RN Member Role: Primary Care Nurse Name: Juancarlos Valente RN Position: [facility] Hospital Ultrasound Coordinator Member Role: Primary Care Nurse Name: Tran Wiseman RN Position: [facility] RN Member Role: Primary Care Nurse Care Team Related Persons Name: SYLVIA BARBOSA Address: home [address] [place] [address] Name: GAGE HUNT Address: home [address] [place] [address] Name: JOCELYN HUNT Address: [address] [place] [address]
--- OUTSIDE RECORDS SUMMARY | 2024-05-24 04:39 | XMS_ITS | Continuity of Care Document ---
Author Organization [facility] Address [address] [place] [address]- Care Team Providers Care Basin Tender Name Role Phone Alonzo Esposito MD Primary Care Physician [phone] Encounter [facility] Date(s): 04/02/24 - 05/02/[address] [address] Allergies, Adverse Reactions, Alerts Substance Reaction [...] influenza virus vaccine, inactivated 12/06/15 Give n [id number] 12y+ bivalent booster vax 11/03/22 Given SARS-CoV-2 mRNA (wvrpwhv-hoqs-lgolu) vax 01/26/22 Given SARS-CoV-2 mRNA (wqrpxpi-qlhj-mcvhw) vax 12/28/21 Given pneumococcal 23-valent vaccine 04/08/18 Recorded pneumococcal 23-valent vaccine 04/22/17 Recorded pneumococcal 23-valent vaccine 12/21/12 Given 1Result Comment: [facility]ations acetaminophen 325 mg oral tablet 650 mg, 2, tablet, By Mouth, Every 6 hours, PRN, # 120 tablet, Refills 0, Tot. Refills 0, Maintenance, for pain, 02/27/24 18:13:00 EDT, Route to Pharmacy Electronically, [facility]/pharmacy #[id number], Partial fill upon patient request if the prescription is for... Start Date: 02/27/24 Status: Ordered amoxicillin 500 mg oral capsule 4 capsule = 2,000 mg, By Mouth, Once, given 1 hour prior to the dental procedure, # 4 capsule, 0 Refills, Soft Stop, 03/18/24 8:57:00 EDT, Capsule, [facility]/pharmacy #[id number], Partial fill upon patient request if the prescription is for a schedule II opioid d... Start Date: 03/18/24 Status: Ordered aspirin 81 mg oral delayed release tablet 81 mg, By Mouth, Daily, # 30 tablet, Refills 11, Tot. Refills 11, Maintenance, 09/12/23 17:42:00 EST, Route to Pharmacy Electronically, [place], [place] - [id number], For blister pack please., 166, cm, 09/12/23 13:54:00 EST, Height, 9... Start Date: 09/12/23 Status: Ordered atorvastatin 40 mg oral tablet 1 tablet = 40 mg, By Mouth, Daily, # 30 tablet, 11 Refills, Maintenance, 09/12/23 17:42:00 EST, Tablet, [place], [place] - [id number], For blister pack please., 166, cm, 09/12/23 13:54:00 EST, Height, 93, kg, 09/06/23 16:15:00 EST, Start Date: 09/12/23 Stop Date: 09/06/24 Status: Ordered diclofenac 1% topical gel 1 application, Topically, 4 times a day, PRN Pain , Mild, not to exceed 16 grams/day/single joint of lower extremities, # 100 Gm, 3 Refills, Maintenance, 11/30/23 9:43:00 EST, Gel, [facility]/pharmacy #[id number], Partial fill upon patient request if the prescript... Start Date: 11/30/23 Status: Ordered FLUoxetine 20 mg oral capsule 60 mg, 3, capsule, By Mouth, Daily, TAKE 3 CAPSULES BY MOUTH EVERY DAY IN THE MORNING, # 90 capsule, Refills 11, Tot. Refills 11, Maintenance, 09/12/23 17:44:00 EST, Route to Pharmacy Electronically,[place], [place] - [id number], for... Start Date: 09/12/23 Status: Ordered gabapentin 800 mg oral tablet 1 tablet = 800 mg, By Mouth, 3 times a day, # 90 tablet, 3 Refills, Maintenance, 02/29/24 9:58:00 EDT, Tablet, [facility]/pharmacy #[id number], Partial fill upon patient request if the prescription is for a schedule II opioid drug., 165, cm, 02/29/24 9:45:00 EDT,... Start Date: 02/29/24 Status: Ordered nitroglycerin 0.4 mg sublingual tablet 1 tablet = 0.4 mg, Sublingual, Every 5 minutes, PRN Chest Pain, # 100 tablet, 0 Refills, Maintenance, 06/08/23 16:23:00 EDT, Tablet, [facility]/pharmacy #[id number], Partial fill upon patient request if the prescription is for a schedule II opioid drug., 165, cm,... Start Date: 06/08/23 Status: Ordered oxyCODONE 15 mg oral tablet 1 tablet = 15 mg, By Mouth, Every 6 hours, PRN Pain , Severe, controlled substance agreement., # 120 tablet, 0 Refills, Maintenance, 04/03/24 11:48:00 EDT, Tablet, [facility]/pharmacy #[id number], Partial fill upon patient [...] 09/12/23 17:44:00 EST, Route to Pharmacy Electronically, [place], [place] - [id number], for blister pack, 166, cm... Start Date: 09/12/23 Status: Ordered tiZANidine 2 mg oral tablet 4 mg, 2, tablet, By Mouth, Every 8 hours, # 180 tablet, Refills 3, Tot. Refills 3, Maintenance, 02/29/24 9:59:00 EDT, Route to Pharmacy Electronically, [facility]/pharmacy #[id number], Partial fill upon patient [...] Gm, 11 Refills, Maintenance, 02/22/23 8:17:00 EDT, [facility]/pharmacy #[id number], 166, cm, 01/18/23 15:56:00 [...] Active Right knee pain Confirmed Active Health retirement, active care coordination Netta Mata [phone] Confirmed Active Cervical stenosis of spine Confirmed [...] Care Nurse Name: Macarena Lewis RN Position: [facility] RN Member Role: Primary Care Nurse Name: Mallory Lugo RN Position: [facility] RN Member Role: Primary Care Nurse Name: Carmen Gao RN Position: [facility] ED RN W/OE and Tasks Member Role: Primary Care Nurse Name: Dacia Evangelista RN Position: [facility] RN Member Role: Primary Care Nurse Name: Tracey Linares RN Position: [facility] AMB Nurse Member Role: Primary Care Nurse Name: Italia Ortega RN Position: [facility] RN Member Role: Primary Care Nurse Name: Catalina He RN Position: [facility] AMB Nurse Member Role: Primary Care Nurse Name: Cortez Golden RN Position: [facility] RN Member Role: Primary Care Nurse Name: Jessica Lantigua RN Position: [facility] SN RN Member Role: Primary Care Nurse Name: Catalina Pack RN Position: [facility] SN RN Member Role: Primary Care Nurse Name: Clifford Gerber RN Position: [facility] RN Member Role: Primary Care Nurse Name: Doris Butler RN Position: [facility] RN Member Role: Primary Care Nurse Name: Aziza Poole RN Position: [facility] RN Member Role: Primary Care Nurse Name: Katheryn Wu RN Position: [facility] SN RN Member Role: Primary Care Nurse Name: Doris Dee RN Position: [facility] RN Member Role: Primary Care Nurse Name: Janae Soot RN Position: [facility] RN Member Role: Primary Care Nurse Name: Daphney Echols LPN Position: [facility] RN Member Role: Primary Care Nurse Name: Nini Odonnell RN Position: [facility] RN Member Role: Primary Care Nurse Name: Jennifer Thakkar RN Position: [facility] RN Member Role: Primary Care Nurse Name: Hyun Ochoa RN Position: [facility] RN Member Role: Primary Care Nurse Name: Ruth Lay RN Position: [facility] RN Member Role: Primary Care Nurse Name: Ranjana Zavala RN Position: [facility] RN Member Role: Primary Care Nurse Name: Melvi Carter RN Position: [facility] OB RN Member Role: Primary Care Nurse Name: Jackson Rosen RN Position: [facility] RN Member Role: Primary Care Nurse Name: Clarissa Rodriguez RN Position: [facility] RN Supv Member Role: Primary Care Nurse Name: Ophelia Marie RN Position: [facility] SN RN Member Role: Primary Care Nurse Name: Nolvia Mendes RN Position: [facility] RN Member Role: Primary Care Nurse Name: Tyrone Germain RN Position: [facility] RN Member Role: Primary Care Nurse Name: Adi Rees RN Position: [facility] RN Member Role: Primary Care Nurse Name: Alonzo Esposito MD Position: [facility] Physician - Primary Care Member Role: PCP Address: Address: [address] [place] [address]- Name: Cassidy Masters RN Position: [facility] RN Member Role: Primary Care Nurse Name: Juancarlos Valente RN Position: [facility] [employer] Knife [employer]sembler Member Role: Primary Care Nurse Name: Tran Wiseman RN Position: [facility] RN Member Role: Primary Care Nurse Care Team Related Persons Name: SYLVIA BARBOSA Address: home [address] [place] [id number] Name: GAGE HUNT Address: [address] [place] [address] Name: JOCELYN HUNT Address: home [address] [place] [address]
--- OUTSIDE RECORDS SUMMARY | 2024-05-24 04:39 | XMS_ITS | Continuity of Care Document ---
Author Organization [facility] Address [address] [place] [address]- Care Team Providers Care Experimental Mechanic Electrical Name Role Phone Dawna Hernandez MD Primary Care Physician [phone] Encounter [facility] Date(s): 03/04/23 - 03/04/[address] [address]- Encounter Diagnosis Headache(Final) - 03/04/23 Discharge Disposition: A-D/C Home Attending Physician: Anup Pyle MD Admitting Physician: Anup Pyle MD Referring Physician: Not on Staff, Referring MD Allergies, Adverse Reactions, Alerts Substance Reaction Severity Status lisinopril Angioedema Active Shrimp Active Immunizations Given and Recorded Vaccine Date Status Refusal Reason [id number] 12y+ bivalent booster vax 11/03/22 Given influenza virus vaccine, inactivated 11/03/22 Give n influenza virus vaccine, inactivated 02/15/22 Give n influenza virus vaccine, inactivated 09/01/20 Give n influenza virus vaccine, inactivated 09/15/19 Give n influenza virus vaccine, inactivated 11/19/18 Give n influenza virus vaccine, inactivated 09/10/17 Give n influenza virus vaccine, inactivated 12/06/15 Give n SARS-CoV-2 mRNA (cusuufj-bpvx-edixi) vax 01/26/22 Given SARS-CoV-2 mRNA (mkcurum-whst-lqwnz) vax 12/28/21 Given tetanus/diphtheria/pertussis, acel(Tdap) 03/29/19 Given [...] Refills, Maintenance, 03/01/23 12:46:00 EDT, [id number], 166, cm, 01/18/23 15:56:00 EDT, Height, 91, [...] tablet, 1 Refills, Maintenance, 02/22/23 8:17:00 EDT, [facility]/pharmacy #[id number], 166, cm, 01/18/23 15:56:00 EDT, Height, 91, kg, 01/18/23 15:56:00 EDT, Dry Weight Start Date: 02/22/23 Status: Ordered Colace sodium 100 mg oral capsule 100 mg, 1, capsule, By Mouth, 2 times a day, PRN, # 20 capsule, Refills 0, Tot. Refills 0, Maintenance, for constipation, 09/22/22 9:53:00 EST, Route to Pharmacy Electronically, [facility]/pharmacy #[id number], Partial fill upon patient [...] agreement, # 30 tablet, 0 Refills, Maintenance, 02/22/23 8:17:00 EDT, Tablet, [id number], Partial fill upon patient request if the prescription is fo... Start Date: 02/22/23 Status: Ordered Freestyle Lite Lancets See Instructions, [...] Dry Weight Start Date: 12/28/20 Stop Date: 4/15/21 Status: Ordered gabapentin 800 mg oral tablet 1 tablet = 800 mg, By Mouth, 3 times a day, # 90 tablet, 11 Refills, Maintenance, 06/15/22 17:40:00EDT, Tablet, [facility]/pharmacy #[id number], Partial fill upon patient request if the prescription is for a schedule II opioid drug., 165, cm, 06/15/22 14:29:00 ED... Start Date: 06/15/22 Status: Ordered ibuprofen 600 mg oral tablet 600 mg, 1, tablet, By Mouth, 3 times a day, # 90 tablet, Refills 0, Tot. Refills 0, Maintenance, 09/06/22 21:10:00 EST, Route to Pharmacy Electronically, [facility]/pharmacy #[id number], Partial fill upon patientrequest if [...] patch, 0 Refills, Maintenance, 07/20/22 15:26:00 EDT, [facility] STORE [id number], 10, APPLY 1 PATCH DAILY NEEDED FOR [...] Refills, Maintenance, 03/03/23 15:23:00 EDT, [facility], 166, cm, 01/18/23 15:56:00 EDT, Height, 91, kg, 01/18/23 15:56:00 EDT, Dry Weight Start Date: 03/03/23 Status: Ordered OxyCONTIN 15 mg oral tablet, extended release 1 tablet = 15 mg, By Mouth, Every 12 hours, MassPAT checked dx: M54.5 on agreement, # 60 tablet, 0 Refills, Maintenance, 02/22/23 8:17:00 EDT, ER Tablet, [id number], Partial fill upon patientrequest if [...] tablet, Refills 5, Route to Pharmacy Electronically, [id number], 166, cm, 12/28/21 10:33:00 EDT, Height, 91.9, [...] EST, Supply Start Date: 12/12/22 Status: Ordered Set Up Technician Set Up Technician, See Instructions, # 1 each, Refills [...] Health custodial, active care coordination PADMINI Mata [phone] Confirmed Active Fatty infiltration of liver Confirmed Active Tubular adenoma of colon Confirmed Active 1history of this with surgical correction Results Radiology Reports * Exam Date Time Procedure Performing Provider Status 03/04/23 11:24 AM Chest 2 Views Frontal and Lat Do , Ti en; Auth (Verified) Notes: (Chest 2 Views Frontal and Lat) Reason For Exam: Shortness of Breath RESULT: Chest 2 Views Frontal and Lat Chest 2 Views Frontal and Lat INDICATION/CLINICAL QUESTION: Hx of Present Illness: Pt reports he started bug bombs at 10pm last night ( 4 of them in his apartment and reported that he stayed in the house and was breathing in the fumes , now has sore throat and headache .; Reason: Shortness of Breath; Clinical Question(s): CHF / CHF TECHNIQUE: Frontal and lateral views of the chest. COMPARISON: None.. FINDINGS: LINES AND TUBES: None. LUNGS AND PLEURA: RIGHT CHEST: The right lung is clear and there is no right effusion. LEFT CHEST: The left lung is clear and there is no left effusion. HEART, MEDIASTINUM AND JASMYNE: The heart is of normal size. The mediastinum and jasmyne are normal. BONES AND SOFT TISSUES: No acute bony abnormality. IMPRESSION: 1. No active disease in chest. WSN: [id number] Ordering Physician: Elsy Rico Dictated By: Mook Maradiaga MD Dictated Date/Time: 03/04/23 11:48 a Reviewed By: Mook Maradiaga MD Signed By: Mook Maradiaga MD Signed Date/Time: 03/04/23 11:48 am Transcribed By: HARPAL Transcribed Date/Time: 03/04/23 11:40 am Vital Signs Most recent to oldest [Reference Range]: 1 2 3 Weight 80 kg (03/04/23 10:57 AM) 80 kg (03/04/23 9:46 AM) Oxygen Saturation [94-100 %] 100 % (03/04/23 11:55 AM) 100 % (03/04/23 10:57 AM) 100 % (03/04/23 9:46 AM) Pulse Rate [55-90 bpm] 81 bpm (03/04/23 11:55 AM) 80 bpm (03/04/23 10:57 AM) 87 bpm (03/04/23 9:46 AM) Blood Pressure [90-138/55-84 mm Hg] 124/85mm Hg (03/04/23 11:55 AM) 129/82mm Hg (03/04/23 10:57 AM) 144/88mm Hg *H* (03/04/23 9:46 AM) Respiratory Rate [16-30 br/min] 15 br/min *L* (03/04/23 11:55 AM) 13 br/min *L* (03/04/23 10:57 AM) 18 br/min (03/04/23 9:46 AM) Temperature [96.8-100.4 DegF] 97.7 DegF (03/04/23 9:46 AM) Mode of Delivery (Oxygen) Room air (03/04/23 11:55 AM) Room air (03/04/23 10:57 AM) Room air (03/04/23 9:46 AM) Blood pressure sites Arm, right (03/04/23 11:55 AM) Arm, right (03/04/23 10:57 AM) Temperature Route Oral (03/04/23 9:46 AM) Dry Weight 80 kg (03/04/23 10:57 AM) 80 kg (03/04/23 9:46 AM) Weight Obtained Via Patient/family state d (03/04/23 9:46 AM) Social History Social History Type Response Smoking Status Former smoker; Other : Quit 2014; entered on: 09/10/17 Sex EKG study * Event Display: ECG 12-Lead Authored Date: Please click on pdf link to open report * Event Display: ECG 12-Lead Authored Date: Ventricular Rate: 82 BPM Atrial Rate: 82 BPM P-R Interval: 134 ms QRS Duration: 84 ms Q-T Interval: 370 ms QTC Calculation(Bazett): 432 ms P Han[place]: 38 degrees R [place]: 2 degrees T [place]: 16 degrees Normal sinus rhythm Normal ECG When compared with ECG of 18-JAN-2023 16:09, QRS axis Shifted left Confirmed by MILI DE JESUS MD ([id number]) on 03/04/2023 3:49:07 PM [place]: MILI DE JESUS MD Laboratory * [facility] , CIS S: TRANSCRIBE Ashwini RAWLS, Mook D: VERIFY Event Display: Result: Authored Date: Chest 2 Views Frontal and Lat INDICATION/CLINICAL QUESTION: Hx of Present Illness: Pt reports he started bug bombs at 10pm last night ( 4 of them in his apartment and reported that he stayed in the house and was breathing in the fumes , now has sore throat and headache .; Reason: Shortness of Breath; Clinical Question(s): CHF / CHF TECHNIQUE: Frontal and lateral views of the chest. COMPARISON: None.. FINDINGS: LINES AND TUBES: None. LUNGS AND PLEURA: RIGHT CHEST: The right lung is clear and there is no right effusion. LEFT CHEST: The left lung is clear and there is no left effusion. HEART, MEDIASTINUM AND JASMYNE: The heart is of normal size. The mediastinum and jasmyne are normal. BONES AND SOFT TISSUES: No acute bony abnormality. IMPRESSION: 1. No active disease in chest. WSN: [id number] Ordering Physician: Elsy Rico Dictated By: Mook Maradiaga MD Dictated Date/Time: 03/04/23 11:48 a Reviewed By: Mook Maradiaga MD Signed By: Mook Maradiaga MD Signed Date/Time: 03/04/23 11:48 am Transcribed By: HARPAL Transcribed Date/Time: 03/04/23 11:40 am Patient Care team information Care Team Personnel Name: Macarena Lewis RN Position: [facility] RN Member Role: Primary Care Nurse Name: Mallory Lugo RN Position: [facility] RN Member Role: Primary Care Nurse Name: Carmen Gao RN Position: [facility] RN Member Role: Primary Care Nurse Name: Dacia Evangelista RN Position: [facility] RN Member Role: Primary Care Nurse Name: Tracey Linares RN Position: [facility] LATIAO RN Member Role: Primary Care Nurse Name: Italia Ortega RN Position: [facility] RN Member Role: Primary Care Nurse Name: Catalina He RN Position: [facility] AMB Nurse Member Role: Primary Care Nurse Name: Cortez Golden RN Position: [facility] RN Member Role: Primary Care Nurse Name: Jessica Lantigua RN Position: [facility] RN Member Role: Primary Care Nurse Name: Catalina Pack RN Position: [facility] RN Member Role: Primary Care Nurse Name: Clifford Gerber RN Position: [facility] RN Member Role: Primary Care Nurse Name: Peter Monahan RN Position: [facility] RN Member Role: Primary Care Nurse Name: Aziza Poole RN Position: [facility] RN Member Role: Primary Care Nurse Name: Monet Miller RN Position: [facility] RN Member Role: Primary Care Nurse Name: Katheryn Wu RN Position: [facility] RN Member Role: Primary Care Nurse Name: Doris Dee RN Position: [facility] RN Member Role: Primary Care Nurse Name: Janae Soto RN Position: [facility] RN Member Role: Primary Care Nurse Name: Hyun Ochoa RN Position: [facility] RN Member Role: Primary Care Nurse Name: Nancy Magana RN Position: [facility] RN Member Role: Primary Care Nurse Name: Ranjana Zavala RN Position: [facility] RN Member Role: Primary Care Nurse Name: Melvi Carter RN Position: [facility] OB RN Member Role: Primary Care Nurse Name: Jackson Rosen RN Position: [facility] RN Member Role: Primary Care Nurse Name: Clarissa Rodriguez RN Position: [facility] RN Vikram Member Role: Primary Care Nurse Name: Ophelia Marie RN Position: [facility] RN Member Role: Primary Care Nurse Name: Nolvia Mendes RN Position: [facility] RN Member Role: Primary Care Nurse Name: Adi Rees RN Position: [facility] RN Member Role: Primary Care Nurse Name: Doroteo Morrow RN Position: [facility] RN Member Role: Primary Care Nurse Address: Address: [address] [place] [address]- Name: Cassidy Masters RN Position: [facility] RN Member Role: Primary Care Nurse Name: Juancarlos Valente RN Position: [facility] Hospital Record Press Tender Member Role: Primary Care Nurse Name: Dawna Hernandez MD Position: [facility] Primary Care Physician Member Role: PCP Address: Address: [address] [place] [address] - [place] Name: Ana Luisa Horta RN Position: [facility] ED RN W/OE and Tasks Member Role: Patient Care Provider Name: Elsy Rico NP Position: [facility] Associate Professional Member Role: ED Physician Water Taxi Ferry Operator Address: Address: [address] [place] [address]- [place] Name: Anup Pyle MD Position: [facility] ED Medicine MD Member Role: Admitting Physician Address: Address: [address] [place] [address] [place] [address]- [place] Name: Maricel Aguilera Position: [facility] ED TA [facility] Member Role: Auto Carrier Driver Care Team Related Persons Name: SYLVIA BARBOSA Address: [address] [address] Name: GAGE HUNT Address: home [address] [place] [address] Name: JOCELYN HUNT Address: [place] [address] [place] [address]
--- OUTSIDE RECORDS SUMMARY | 2024-05-24 04:39 | XMS_ITS | Continuity of Care Document ---
Author Organization [facility] Address [address] [place] [address]- Care Team Providers Care Commercial Real Estate Underwriter Name Role Phone Alonzo Esposito MD Primary Care Physician Encounter [facility] Date(s): 07/24/23 - 08/23/[address] [address] Attending Physician: AdmLori sandhu Admitting Physician: [...] influenza virus vaccine, inactivated 12/06/15 Give n [id number] 12y+ bivalent booster vax 11/03/22 Given SARS-CoV-2 mRNA (czrjjdj-agrr-tvohh) vax 01/26/22 Given SARS-CoV-2 mRNA (agunozt-dmtc-bczvh) vax 12/28/21 Given tetanus/diphtheria/pertussis, acel(Tdap) 03/29/19 Given tetanus/diphtheria/pertussis, acel(Tdap) 09/10/17 Given pneumococcal 23-valent vaccine 04/08/18 Recorded pneumococcal 23-valent vaccine 04/22/17 Recorded pneumococcal 23-valent vaccine 12/21/12 Given Medications acetaminophen-oxycodone 325 mg-10 mg oral tablet 1 tablet, By Mouth, Daily at bedtime, for 30 days, mass pat verified, # 30 tablet, 0 Refills, Acute09/13/23 13:56:00 EST, 08/14/23 13:56:00 EDT, [facility]/pharmacy #[id number], Partial fill upon patient requestif the prescription is for a schedule II opioid aditya... Start Date: 08/14/23 Stop Date: 09/13/23 Status: Ordered diclofenac 1% topical gel 1 application, Topically, 4 times a day, # 100 Gm, 3 Refills, Maintenance, 04/30/23 14:32:00 EDT, Gel, [facility]/pharmacy #[id number], Partial [...] 08/14/23 13:53:00 EDT, Route to Pharmacy Electronically, [facility]/pharmacy #[id number], Partial fill upon patient request if the prescription is for a schedule II... Start Date: 08/14/23 Status: Ordered nitroglycerin 0.4 mg sublingual tablet 1 tablet = 0.4 mg, Sublingual, Every 5 minutes, PRN Chest Pain, # 100 tablet, 0 Refills, Maintenance, 06/08/23 16:23:00 EDT, Tablet, [facility]/pharmacy [...] EDT, Route to Pharmacy Electronically, [id number], 165, cm, 04/09/23 9:47:00 EDT, Height, 89.1, [...] health care facility, active care coordination PADMINI Medinaetta Esperanza [phone] Confirmed Active Fatty infiltration of liver Confirmed Active Tubular adenoma of colon Confirmed Active 1history of this with surgical correction Social History Social History Type Response Smoking Status Former smoker; Other : Quit 2014; entered on: 09/10/17 Sex Patient Care team information Care Team Personnel Name: Macarena Lewis RN Position: [facility] RN Member Role: Primary Care Nurse Name: Mallory Lugo RN Position: [facility] RN Member Role: Primary Care Nurse Name: Carmen Gao RN Position: [facility] ED RN [...] Wu RN Position: [facility] RN Member Role: Primary Care Nurse Name: Doris Dee RN Position: [facility] RN Member Role: Primary Care Nurse Name: Janae Soto RN Position: [facility] RN Member Role: Primary Care Nurse Name: Hyun Ochoa RN Position: [facility] RN Member Role: Primary Care Nurse Name: Nancy Magana RN Position: [facility] RN [...] Care Nurse Name: Adi Rees RN Position: [facility] RN Member Role: Primary Care Nurse Name: Alonzo Esposito MD Position: [facility] Physician - Primary Care Member Role: PCP Address: Address: [address] [place] [address]- Name: Doroteo Morrow RN Position: [facility] RN Member Role: Primary Care Nurse Address: Address: [address] [place] [address]- Name: Cassidy Masters RN Position: [facility] RN Member Role: Primary Care Nurse Name: Juancarlos Valente RN Position: [facility] Stars Specialist Member Role: Primary Care Nurse Care Team Related Persons Name: SYLVIA BARBOSA Address: [address] [place] [address] Name: GAGE HUNT Address: [address] [place] [address] Name: JOCELYN HUNT Address: home [address] [place] [address]
--- OUTSIDE RECORDS SUMMARY | 2024-05-24 04:39 | XMS_ITS | Continuity of Care Document ---
Author Organization [facility] Address [address] [place] [address]- Care Team Providers Care Special Education Administrator Name Role Phone Dawna Hernandez MD Primary Care Physician Encounter [facility] Date(s): 08/07/22 - 09/06/[address] [address] Allergies, Adverse Reactions, Alerts Substance [...] vaccine, inactivated 12/06/15 Give n SARS-CoV-2 mRNA (bbwdjzq-xziu-sqjdd) vax 01/26/22 Given SARS-CoV-2 mRNA (gekucei-ujzg-isouv) vax 12/28/21 Given tetanus/diphtheria/pertussis, acel(Tdap) 03/29/19 Given tetanus/diphtheria/pertussis, acel(Tdap) 09/10/17 Given pneumococcal 23-valent vaccine 04/08/18 Recorded pneumococcal 23-valent vaccine 04/22/17 Recorded pneumococcal 23-valent vaccine 12/21/12 Given Medications albuterol CFC free 90 mcg/inh inhalation aerosol 2, puffs, Inhalation, Every 6 hours, PRN, # 1 each, Refills 6, Tot. Refills 6, Maintenance, 08/07/22 17:48:00 EDT, Aerosol, Route to Pharmacy Electronically, [id number], [id number], 165, cm, 08/02/22 5:50:00 EDT, [...] Refills, Maintenance, 06/15/22 17:40:00EDT, Tablet, [facility]/pharmacy #[id number], Partial fill upon patient request if the prescription is for a schedule II opioid drug., 165, cm, 06/15/22 14:29:00 ED... Start Date: 06/15/22 Status: Ordered ibuprofen 600 mg oral tablet 600 mg, 1, tablet, By Mouth, 3 times a day, # 90 tablet, Refills 0, Tot. Refills 0, Maintenance, 09/06/22 21:10:00 EST, Route to Pharmacy Electronically, [facility]/pharmacy #[id number], Partial fill upon patientrequest if the [...] Refills, Maintenance, 07/20/22 15:26:00 EDT, [facility] STORE 56343, 10, APPLY 1 PATCH DAILY NEEDED FOR MODERATE PAIN..REMOVE AFTER 12... Start Date: 07/20/22 Status: Ordered oxyCODONE 15 mg oral tablet 1 tablet = 15 mg, By Mouth, Every 6 hours, for 28 days, MassPAT checked, # 112 tablet, 0 Refills, Acute 10/04/22 12:00:00 EST, 09/06/22 12:00:00 EST, [facility]/pharmacy #[id number], Partial fill upon [...] 5, Route to Pharmacy Electronically, [facility] 1960[facility], 166, cm, 12/28/21 10:33:00 EDT, Height, 91.9, [...] 0 Refills, Maintenance, 08/18/22 22:09:00 EDT, Aerosol, [facility]/pharmacy #6911, Partial fill upon patient request if the [...] detention, active care coordination Netta Nancy [facility] [phone] Confirmed Active Fatty infiltration of liver Confirmed Active Tubular adenoma of colon Confirmed Active Social History Social History Type Response Smoking Status Former smoker; Other : Quit 2014; entered on: 09/10/17 Sex Patient Care team information Care Team Personnel Name: Macarena Lewis RN Position: [facility] RN Member Role: Primary Care Nurse Name: Mallory Lugo RN Position: [facility] RN Member Role: Primary Care Nurse Name: Carmen Gao RN Position: [facility] RN Member Role: Primary Care Nurse Name: Dacia Evangelista RN Position: [facility] RN Member Role: Primary Care Nurse Name: Tracey Linares RN Position: [facility] RN Member Role: Primary Care Nurse Name: Italia Ortega RN Position: [facility] RN Member Role: Primary Care Nurse Name: Catalina He RN Position: [facility] RN Member Role: Primary Care Nurse Name: Cortez Golden RN Position: [facility] RN Member Role: Primary Care Nurse Name: Jessica Lantigua RN Position: [facility] SN RN Member Role: Primary Care Nurse Name: Clifford Gerber RN Position: [facility] RN Member Role: Primary Care Nurse Name: Peter Monahan RN Position: [facility] RN Member Role: Primary Care Nurse Name: Aziza Poole RN Position: [facility] RN Member Role: Primary Care Nurse Name: Monet Miller RN Position: [facility] RN Member Role: Primary Care Nurse Name: Katheryn Wu RN Position: [facility] RN Member Role: Primary Care Nurse Name: Doris Dee RN Position: [facility] RN Member Role: Primary Care Nurse Name: Janae Soto RN Position: [facility] RN Member Role: Primary Care Nurse Name: Hyun Ochoa RN Position: [facility] RN Member Role: Primary Care Nurse Name: Nancy Magana RN Position: [facility] RN Member Role: Primary Care Nurse Name: Ranjana Zavala RN Position: [facility] RN Member Role: Primary Care Nurse Name: Melvi Carter RN Position: [facility] OB RN Member Role: Primary Care Nurse Name: Jackson Rosen RN Position: [facility] RN Member Role: Primary Care Nurse Name: Clarissa Rodriguez Position: [facility] RN Supv Member Role: Primary Care Nurse Name: Evelyn Pyle RN Position: [facility] RN Member Role: Primary Care Nurse Name: Ophelia Marie RN Position: [facility] RN Member Role: Primary Care Nurse Name: Nolvia Mendes RN Position: [facility] RN Member Role: Primary Care Nurse Name: Adi Rees RN Position: [facility] RN Member Role: Primary Care Nurse Name: Catalina Torres RN Position: [facility] RN Member Role: Primary Care Nurse Name: Doroteo Morrow RN Position: [facility] RN Member Role: Primary Care Nurse Address: Address: [address] [place] [address]- [place] Name: Cassidy Masters RN Position: [facility] RN Member Role: Primary Care Nurse Name: Juancarlos Valente RN Position: [facility] Physical Therapy Attendant Member Role: Primary Care Nurse Name: Dawna Hernandez MD Position: [facility] Primary Care Physician Member Role: PCP Address: Address: [address] [place] [address]- Care Team Related Persons Name: SYLVIA BARBOSA Address: [address] [place] [address] Name: GAGE HUNT Address: [address] [place] [address] Name: JOCELYN HUNT Address: home [address] [place] [address]
--- OUTSIDE RECORDS SUMMARY | 2024-05-24 04:39 | XMS_ITS | Continuity of Care Document ---
Author Organization [facility] Address [address] [place] [address]- Care Team Providers Care Middleware Systems Architect Name Role Phone Alonzo Esposito MD Primary Care Physician Encounter [facility] [place] Date(s): 06/13/23 - 07/13/[address] [address]- Allergies, Adverse Reactions, Alerts Substance Reaction Severity Status lisinopril Angioedema Active Shrimp Active Immunizations Given and Recorded Vaccine Date Status Refusal Reason [id number] 12y+ bivalent booster vax 11/03/22 Given influenza virus vaccine, inactivated 11/03/22 Give n influenza virus vaccine, inactivated 02/15/22 Give n influenza virus vaccine, inactivated 09/01/20 Give n influenza virus vaccine, inactivated 09/15/19 Give n influenza virus vaccine, inactivated 11/19/18 Give n influenza virus vaccine, inactivated 09/10/17 Give n influenza virus vaccine, inactivated 12/06/15 Give n SARS-CoV-2 mRNA (jtbldrh-iruy-uqctk) vax 01/26/22 Given SARS-CoV-2 mRNA (gvodepl-wdyk-bwqrq) vax 12/28/21 Given tetanus/diphtheria/pertussis, acel(Tdap) 03/29/19 Given tetanus/diphtheria/pertussis, acel(Tdap) 09/10/17 Given pneumococcal 23-valent vaccine 04/08/18 Recorded pneumococcal 23-valent vaccine 04/22/17 Recorded pneumococcal 23-valent vaccine 12/21/12 Given Medications acetaminophen-oxycodone 325 mg-10 mg oral tablet 1 tablet, By Mouth, Daily at bedtime, for 30 days, mass pat verified, # 30 tablet, 0 Refills, Acute07/16/23 14:15:00 EDT, 06/16/23 14:15:00 EDT, [facility]/pharmacy #[id number], Partial fill upon patient requestif the prescription is for a schedule II opioid aditya... Start Date: 06/16/23 Stop Date: 07/16/23 Status: Ordered diclofenac 1% topical gel 1 application, Topically, 4 times a day, # 100 Gm, 3 Refills, Maintenance, 04/30/23 14:32:00 EDT, Gel, [facility]/pharmacy #[id number], Partial fill upon patient [...] 0 Refills, Maintenance, 06/08/23 16:23:00 EDT, Tablet, [facility]/pharmacy #[id number], Partial fill upon patient request if the prescription is for a schedule II opioid drug., 165, cm,... Start Date: 06/08/23 Status: Ordered OxyCONTIN 15 mg oral tablet, extended release 1 tablet = 15 mg, By Mouth, Every 12 hours, dx: M54.5 MassPAT checked; appropriate, # 60 tablet, 0 Refills, Maintenance, 06/16/23 22:39:00 EDT, ER Tablet, [facility]/pharmacy #[id number], Partial fill upon patient request if the prescription is for a schedule II... Start Date: 06/16/23 Stop Date: 07/16/23 Status: Ordered propranolol 20 mg oral tablet 2, tablet, By Mouth, 2 times a day, # 120 tablet, Refills 5, Maintenance, 04/19/23 20:48:00 EDT, Route to Pharmacy Electronically, [facility] STORE [id number], 165, cm, 04/09/23 9:47:00 EDT, Height, 89.1, [...] Confirmed Active Health [facility]pc, active care [facility] [phone] Confirmed Active Fatty infiltration of liver Confirmed Active Tubular adenoma of colon Confirmed Active 1history of this with surgical correction Social History Social History Type Response Smoking Status Former smoker; Other : Quit 2014; entered on: 09/10/17 Sex Patient Care team information Care Team Personnel Name: Macarena Lewis RN Position: [facility] RN Member Role: Primary Care Nurse Name: Mallory Lugo RN Position: [facility] RN Member Role: Primary Care Nurse Name: Carmen Gao RN Position: [facility] RN Member Role: Primary Care Nurse Name: Dacia Evangelista RN Position: [facility] RN Member Role: Primary Care Nurse Name: Tracey Linares RN Position: [facility] AMB Nurse Member Role: Primary Care Nurse Name: Italia Ortega RN Position: [facility] RN Member Role: Primary Care Nurse Name: Catalina He RN Position: [facility] AMB Nurse Member Role: Primary Care Nurse Name: Cortez Golden RN Position: [facility] RN Member Role: Primary Care Nurse Name: Jessica Lantigua RN Position: [facility] SN RN Member Role: Primary Care Nurse Name: Catalina Pack RN Position: [facility] SN RN Member Role: Primary Care Nurse Name: Clifford Gerber RN Position: [facility] RN Member Role: Primary Care Nurse Name: Peter Monahan RN Position: [facility] RN Member Role: Primary Care Nurse Name: Aziza Poole RN Position: [facility] RN Member Role: Primary Care Nurse Name: Monet Miller RN Position: [facility] RN Member Role: Primary Care Nurse Name: Katheryn Wu RN Position: [facility] RN Member Role: Primary Care Nurse Name: Doris Dee RN Position: [facility] RN Member Role: Primary Care Nurse Name: Janae Soto RN Position: [facility] RN Member Role: Primary Care Nurse Name: Hyun Ochoa RN Position: [facility] RN Member Role: Primary Care Nurse Name: Nancy Magana RN Position: [facility] RN Member Role: Primary Care Nurse Name: Ranjana Zavala RN Position: [facility] RN Member Role: Primary Care Nurse Name: Melvi Carter RN Position: [facility] OB RN Member Role: Primary Care Nurse Name: Jackson Rosen RN Position: [facility] RN Member Role: Primary Care Nurse Name: Clarissa Rodriguez RN Position: [facility] RN Vikram Member Role: Primary Care Nurse Name: Ophelia Marie RN Position: [facility] RN Member Role: Primary Care Nurse Name: Nolvia Mendes RN Position: [facility] RN Member Role: Primary Care Nurse Name: Adi Rees RN Position: [facility] RN Member Role: Primary Care Nurse Name: Alonzo Esposito MD Position: [facility] Physician - Primary Care Member Role: PCP Address: Address: [address] [place] [address]- [place] Name: Doroteo Morrow RN Position: [facility] RN Member Role: Primary Care Nurse Address: Address: [address] [place] [address]- Name: Cassidy Masters RN Position: [facility] RN Member Role: Primary Care Nurse Name: Juancarlos Valente RN Position: [facility] Hospital Cryolite Recovery Operator Member Role: Primary Care Nurse Care Team Related Persons Name: SYLVIA BARBOSA Address: [address] [address] Name: GAGE HUNT Address: [address] [address] Name: JOCELYN HUNT Address: [address] [address]
--- OUTSIDE RECORDS SUMMARY | 2024-05-24 04:40 | XMS_ITS | Continuity of Care Document ---
Author Organization [facility] Address [address] [place] [address]- Care Team Providers Care Travel Attendants Name Role Phone Alonzo Esposito MD Primary Care Physician Encounter [facility] [place] Date(s): 09/11/23 - 10/11/[address] [address] Allergies, Adverse Reactions, Alerts [...] influenza virus vaccine, inactivated 12/06/15 Give n [id number] 12y+ bivalent booster vax 11/03/22 Given SARS-CoV-2 mRNA (agrxxzx-qcud-mznxp) vax 01/26/22 Given SARS-CoV-2 mRNA (kfkxvwi-bvji-nkbno) vax 12/28/21 Given tetanus/diphtheria/pertussis, acel(Tdap) 03/29/19 Given tetanus/diphtheria/pertussis, acel(Tdap) 09/10/17 Given pneumococcal 23-valent vaccine 04/08/18 Recorded pneumococcal 23-valent vaccine 04/22/17 Recorded pneumococcal 23-valent vaccine 12/21/12 Given Medications aspirin 81 mg oral delayed release tablet 81 mg, By Mouth, Daily, # 30 tablet, Refills 11, Tot. Refills 11, Maintenance, 09/12/23 17:42:00 EST, Route to Pharmacy Electronically, [facility] [id number], For blister pack please., 166, cm, 09/12/23 13:54:00 EST, Height, 9... Start Date: 09/12/23 Status: Ordered atorvastatin 40 mg oral tablet 1 tablet = 40 mg, By Mouth, Daily, # 30 tablet, 11 Refills, Maintenance, 09/12/23 17:42:00 EST, Tablet, [place], [place] - [id number], For blister pack please., 166, cm, 09/12/23 13:54:00 EST, Height, 93, kg, 09/06/23 16:15:00 EST, DrNicholas. Start Date: 09/12/23 Stop Date: 09/06/24 Status: Ordered chlorhexidine topical 0.12% liquid See Instructions, SWISH AND SPIT DO NOT SWALLOW. USE 3-4 X/ DAY, # 473 mL, 0 Refills, Maintenance, 09/25/23 16:56:00 EST, [facility] STORE [id number], 30, SWISH AND SPIT DO NOT SWALLOW. USE 3-4 X/ DAY, 166, cm, 09/21/23 11:32:00 EST, Height, 93, kg, 09/14/23 12:3... Start Date: 09/25/23 Status: Ordered docusate sodium 100 mg oral tablet 1 tablet = 100 mg, By Mouth, 2 times a day, PRN for constipation, # 60 tablet, 0 Refills, Maintenance, 09/27/23 13:27:00 EST, Tablet, [facility]/pharmacy #[id number], Partial fill upon patient request if the prescription is for a schedule II opioid drug., 166, cm,... Start Date: 09/27/23 Status: Ordered FLUoxetine 20 mg oral capsule 60 mg, 3, capsule, By Mouth, Daily, TAKE 3 CAPSULES BY MOUTH EVERY DAY IN THE MORNING, # 90 capsule, Refills 11, Tot. Refills 11, Maintenance, 09/12/23 17:44:00 EST, Route to Pharmacy Electronically,[facility] [id number], for... Start Date: 09/12/23 Status: Ordered gabapentin 300 mg oral capsule 300 mg, 1, capsule, By Mouth, 2 times a day, # 60 capsule, Refills 11, Tot. Refills 11, Maintenance, 09/12/23 17:42:00 EST, Route to Pharmacy Electronically, [facility] [id number], For blister pack please., 166, cm, 09/12/23 1... Start Date: 09/12/23 Status: Ordered nitroglycerin 0.4 mg sublingual tablet 1 tablet = 0.4 mg, Sublingual, Every 5 minutes, PRN Chest Pain, # 100 tablet, 0 Refills, Maintenance, 06/08/23 16:23:00 EDT, [id number] Partial fill upon patient request if the prescription is for a schedule II opioid drug., 165, cm,... Start Date: 06/08/23 Status: Ordered oxyCODONE 15 mg oral tablet 1 tablet = 15 mg, By Mouth, Every 6 hours, PRN Pain , Severe, controlled substance agreement. adjusting dose back to previous dose., # 120 tablet, 0 Refills, Maintenance, 09/24/23 12:55:00 EST, Tablet, [id number], Partial fill upon patient req... Start Date: 09/24/23 Status: Ordered propranolol 20 mg oral tablet 2, tablet, By Mouth, 2 times a day, # 120 tablet, Refills 11, Tot. Refills , Maintenance, 09/12/23 17:42:00 EST, Route to Pharmacy Electronically, [facility] [id number], For blister pack please., 166, cm, 09/12/23 13:54:00 E... Start Date: 09/12/23 Status: Ordered risperiDONE 2 mg oral tablet 4 mg, 2, tablet, By Mouth, Daily at bedtime, Rx'd by psychiatry, # 60 tablet, Refills 11, Tot. Refills , Maintenance, 09/12/23 17:44:00 EST, Route to Pharmacy Electronically, [facility] [id number], for blister pack, 166, cm... Start Date: 09/12/23 Status: Ordered tiZANidine 2 mg oral tablet 2 mg, 1, tablet, By Mouth, 3 times a day, Can take two tablets at bedtime. Do not take at the same time as oxycodone., # 90 tablet, Refills 0, Tot. Refills 0, Maintenance, 09/26/23 10:38:00 EST, Route to Pharmacy Electronically, [facility]/pharmacy #[id number], Sp... Start Date: 09/26/23 Status: Ordered traZODone 100 mg oral tablet 50 mg, 0.5, tablet, By Mouth, Daily at bedtime, # 15 tablet, Refills 11, Tot. Refills 11, Maintenance, 09/12/23 17:44:00 EST, Route to Pharmacy Electronically, [facility] [place] [place] - [id number], Partial fill upon patient request if the pr... Start Date: 09/12/23 Status: Ordered Ventolin HFA 108 mcg/inh inhalation aerosol with adapter 2 puffs, Inhalation, 4 times a day, PRN NEEDED FOR WHEEZING, # 18 Gm, 11 Refills, Maintenance, 02/22/23 8:17:00 EDT, [facility]/pharmacy #[id number], 166, cm, 01/18/23 15:56:00 EDT, Height, [...] Active [facility], active care coordination [facility] [phone] Confirmed Active Fatty infiltration of liver Confirmed [...] Care Nurse Name: Mallory Lugo RN Position: [facility] RN Member Role: Primary Care Nurse Name: Sima RNCarmen Position: [facility] ED RN W/OE and Tasks Member Role: Primary Care Nurse Name: Dacia Evangelista RN Position: [facility] RN Member Role: Primary Care Nurse Name: Tracey Linares RN Position: [facility] AMB Nurse Member Role: Primary Care Nurse Name: Italia Ortega RN Position: [facility] RN Member Role: Primary Care Nurse Name: Catalina He RN Position: [facility] AMB Nurse Member Role: Primary Care Nurse Name: Jessica Lantigua RN Position: [facility] SN RN Member Role: Primary Care Nurse Name: Catalina Pack RN Position: [facility] SN RN Member Role: Primary Care Nurse Name: Clifford Gerber RN Position: [facility] RN Member Role: Primary Care Nurse Name: Doris Butler RN Position: [facility] RN Member Role: Primary Care Nurse Name: Aziza Poole RN Position: [facility] RN Member Role: Primary Care Nurse Name: Monet Miller RN Position: [facility] RN Member Role: Primary Care Nurse Name: Katheryn Wu RN Position: [facility] SN RN Member Role: Primary Care Nurse Name: Doris Dee RN Position: [facility] RN Member Role: Primary Care Nurse Name: Janae Soto RN Position: [facility] RN Member Role: Primary Care Nurse Name: Daphney Echols LPN Position: [facility] RN Member Role: Primary Care Nurse Name: Nini Odonnell RN Position: [facility] RN Member Role: Primary Care Nurse Name: Jennifer Thakkar RN Position: [facility] RN Member Role: Primary Care Nurse Name: Hyun Ochoa RN Position: [facility] RN Member Role: Primary Care Nurse Name: Yazmin Lay RN Position: [facility] RN Member Role: Primary Care Nurse Name: Nancy Magana RN Position: [facility] RN Member Role: Primary Care Nurse Name: aRnjana Zavala RN Position: [facility] RN Member Role: Primary Care Nurse Name: Melvi Carter RN Position: [facility] OB RN Member Role: Primary Care Nurse Name: Jackson Rosen RN Position: [facility] RN Member Role: Primary Care Nurse Name: Clarissa Rodriguez RN Position: [facility] RN Supv Member Role: Primary Care Nurse Name: Ophelia Marie RN Position: [facility] RN Member Role: Primary Care Nurse Name: Nolvia Mendes RN Position: [facility] RN Member Role: Primary Care Nurse Name: Tyrone Germain RN Position: [facility] RN Member Role: Primary Care Nurse Name: Adi Rees RN Position: [facility] RN Member Role: Primary Care Nurse Name: Orlando Mcallister RN Position: [facility] RN Member Role: Primary Care Nurse Name: Aolnzo Esposito MD Position: [facility] Physician - Primary Care Member Role: PCP Address: Address: [address] [place] [address]- [place] Name: Doroteo Morrow RN Position: [facility] RN Member Role: Primary Care Nurse Address: Address: [address] [place] [address]- Name: Cassidy Masters RN Position: [facility] RN Member Role: Primary Care Nurse Name: Juancarlos Valente RN Position: [facility] [employer] Chief Member Role: Primary Care Nurse Name: Tran Wiseman RN Position: [facility] RN Member Role: Primary Care Nurse Care Team Related Persons Name: SYLVIA BARBOSA Address: home [address] [place] [id number] Name: GAGE HUNT Address: home [address] [place] [address] Name: JOCELYN HUNT Address: home [address] [place] [address]
--- OUTSIDE RECORDS SUMMARY | 2024-05-24 04:40 | XMS_ITS | Continuity of Care Document ---
Author Organization [facility] Address [address] [place] [address]- Care Team Providers Care Tools Developer Name Role Phone Dawna Hernandez MD Primary Care Physician Encounter [facility] [place] [facility] R [id number] Date(s): 08/18/22 - 10/04/[address] [address]- Attending Physician: Michael Steinberg MD Admitting Physician: Michael Steinberg MD Allergies, Adverse Reactions, Alerts Substance Reaction [...] vaccine, inactivated 12/06/15 Give n SARS-CoV-2 mRNA (ghobvpy-ghvn-srreh) vax 01/26/22 Given SARS-CoV-2 mRNA (agvqmkd-voex-rnked) vax 12/28/21 Given tetanus/diphtheria/pertussis, acel(Tdap) 03/29/19 Given tetanus/diphtheria/pertussis, acel(Tdap) 09/10/17 Given pneumococcal 23-valent vaccine 04/08/18 Recorded pneumococcal 23-valent vaccine 04/22/17 Recorded pneumococcal 23-valent vaccine 12/21/12 Given Medications albuterol CFC free 90 mcg/inh inhalation aerosol 2, puffs, Inhalation, Every 6 hours, PRN, # 1 each, Refills 6, Tot. Refills 6, Maintenance, 08/07/22 17:48:00 EDT, Aerosol, Route to Pharmacy Electronically, [id number], [facility]/pharmacy #[id number], 165, cm, 08/02/22 5:50:00 EDT, Heig... [...] Refills, Maintenance, 05/11/22 14:22:00 EDT, Tablet, [facility]/pharmacy #[id number], Partial fill upon patient request [...] 1 Refills, Maintenance, 04/05/22 7:53:00 EDT, [facility]/pharmacy #[id number], 165, cm, 02/15/22 10:35:00 EDT, Height, 90.7, kg, 02/06/22 19:49:00 EDT, Dry Weight Start Date: 04/05/22 Status: Ordered Colace sodium 100 mg oral capsule 100 mg, 1, capsule, By Mouth, 2 times a day, PRN, # 20 capsule, Refills 0, Tot. Refills 0, Maintenance, for constipation, 09/22/22 9:53:00 EST, Route to Pharmacy Electronically, [facility]/pharmacy #[id number], Partial fill upon patient request [...] 11 Refills, Maintenance, 06/15/22 17:40:00EDT, Tablet, [facility]/pharmacy #[id number], Partial fill upon patient request if the prescription is for a schedule II opioid drug., 165, cm, 06/15/22 14:29:00 ED... Start Date: 06/15/22 Status: Ordered ibuprofen 600 mg oral tablet 600 mg, 1, tablet, By Mouth, 3 times a day, # 90 tablet, Refills 0, Tot. Refills 0, Maintenance, 09/06/22 21:10:00 EST, Route to Pharmacy Electronically, [facility]/pharmacy #[id number], Partial fill upon patientrequest if [...] 0 Refills, Maintenance, 07/20/22 15:26:00 EDT, [facility] STORE [id number], 10, APPLY 1 PATCH DAILY NEEDED FOR [...] tablet, Refills 5, Route to Pharmacy Electronically, [facility] [id number], 166, cm, 12/28/21 10:33:00 EDT, Height, 91.9, [...] 0 Refills, Maintenance, 08/18/22 22:09:00 EDT, Aerosol, [facility]/pharmacy #[id number], Partial fill upon patient request if the [...] health care facility, active care coordination Netta Nancy [facility] [phone] Confirmed Active Fatty infiltration of liver Confirmed Active Tubular adenoma of colon Confirmed Active Social History Social History Type Response Smoking Status Former smoker; Other : Quit 2014; entered on: 09/10/17 Sex Patient Care team information Care Team Personnel Name: Macarena Lewis RN Position: [facility] RN Member Role: Primary Care Nurse Name: Mallory Lugo RN Position: [facility] RN Member Role: Primary Care Nurse Name: Carmen Gao RN Position: [facility] RN Member Role: Primary Care Nurse Name: Dacai Evangelista RN Position: [facility] RN Member Role: Primary Care Nurse Name: Tracey Linares RN Position: [facility] PCO RN Member Role: Primary Care Nurse Name: Italia Ortega RN Position: [facility] RN Member Role: Primary Care Nurse Name: Catalina He [facility] RN Member Role: Primary Care Nurse Name: Cortez Golden RN Position: [facility] RN Member Role: Primary Care Nurse Name: Jessica Lantigua RN Position: [facility] RN Member Role: Primary Care Nurse Name: Clifford Gerber RN Position: [facility] RN Member Role: Primary Care Nurse Name: Peter Monahan RN Position: [facility] RN Member Role: Primary Care Nurse Name: Aziza Poole RN Position: [facility] RN Member Role: Primary Care Nurse Name: Monet Miller RN Position: [facility] RN Member Role: Primary Care Nurse Name: Katheryn Wu RN Position: [facility] RN Member Role: Primary Care Nurse Name: Doris Dee RN Position: [facility] RN Member Role: Primary Care Nurse Name: Janae Soto RN Position: [facility] RN Member Role: Primary Care Nurse Name: Hyun Ochoa RN Position: [facility] RN Member Role: Primary Care Nurse Name: Nancy Magana RN Position: [facility] RN Member Role: Primary Care Nurse Name: Ranjana Zavala RN Position: [facility] RN Member Role: Primary Care Nurse Name: Melvi Carter RN Position: [facility] OB RN Member Role: Primary Care Nurse Name: Jackson Rosen RN Position: [facility] RN Member Role: Primary Care Nurse Name: Clarissa Rodriguez Position: [facility] RN Supv Member Role: Primary Care Nurse Name: Ophelia Marie RN Position: [facility] RN Member Role: Primary Care Nurse Name: Nolvia Mendes RN Position: [facility] RN Member Role: Primary Care Nurse Name: Adi Rees RN Position: [facility] RN Member Role: Primary Care Nurse Name: Catalina Torres RN Position: [facility] RN Member Role: Primary Care Nurse Name: Doroteo Morrow RN Position: [facility] RN Member Role: Primary Care Nurse Address: Address: [address] [place] [phone]- Name: Cassidy Masters RN Position: [facility] RN Member Role: Primary Care Nurse Name: Juancarlos Valente RN Position: [facility] Hospital Furniture Crater Member Role: Primary Care Nurse Name: Dawna Hernandez MD Position: [facility] Primary Care Physician Member Role: PCP Address: Address: [address] [place] [id number]- Care Team Related Persons Name: SYLVIA BARBOSA Address: [address] [place] [address] Name: GAGE HUNT Address: [address] [place] [address] Name: JOCELYN HUNT Address: home [address] [place] [address]
--- OUTSIDE RECORDS SUMMARY | 2024-05-24 04:40 | XMS_ITS | Continuity of Care Document ---
Author Organization [facility] Address [address] [place] [address]- Care Team Providers Care Drive Thru Order Taker Name Role Phone Alonzo Esposito DO Primary Care Physician [phone] Encounter [facility] Date(s): 05/01/23 - 06/22/[address] [address]- Encounter Diagnosis Radiculopathy, lumbosacral region(Final) - Discharge Disposition: A-D/C Home Attending Physician: Michael Steinberg MD Admitting Physician: Michael Steinberg MD Referring Physician: Jose Luis Fontana MD Allergies, Adverse Reactions, Alerts Substance Reaction Severity Status lisinopril Angioedema Active Shrimp Active Immunizations Given and Recorded Vaccine Date Status Refusal Reason [id number] 12y+ bivalent booster vax 11/03/22 Given influenza virus vaccine, inactivated 11/03/22 Give n influenza virus vaccine, inactivated 02/15/22 Give n influenza virus vaccine, inactivated 09/01/20 Give n influenza virus vaccine, inactivated 09/15/19 Give n influenza virus vaccine, inactivated 11/19/18 Give n influenza virus vaccine, inactivated 09/10/17 Give n influenza virus vaccine, inactivated 12/06/15 Give n SARS-CoV-2 mRNA (mcharau-[id number]-gpvnf) vax 01/26/22 Given SARS-CoV-2 mRNA (kvzgqsg-euzl-otgyq) vax 12/28/21 Given tetanus/diphtheria/pertussis, acel(Tdap) 03/29/19 Given tetanus/diphtheria/pertussis, acel(Tdap) 09/10/17 Given pneumococcal 23-valent vaccine 04/08/18 Recorded pneumococcal 23-valent vaccine 04/22/17 Recorded pneumococcal 23-valent vaccine 3/9/13 Given Medications acetaminophen-oxycodone 325 mg-10 mg oral tablet 1 tablet, By Mouth, Daily at bedtime, for 30 days, mass pat verified, # 30 tablet, 0 Refills, Acute07/16/23 14:15:00 EDT, 06/16/23 14:15:00 EDT, [facility]/pharmacy #[id number], Partial fill upon patient requestif [...] 0 Refills, Maintenance, 06/08/23 16:23:00 EDT, Tablet, [facility]/pharmacy #[id number], Partial fill upon patient request if the prescription is for a schedule II opioid drug., 165, cm,... Start Date: 06/08/23 Status: Ordered OxyCONTIN 15 mg oral tablet, extended release 1 tablet = 15 mg, By Mouth, Every 12 hours, dx: M54.5 MassPAT checked; appropriate, # 60 tablet, 0 Refills, Maintenance, 06/16/23 22:39:00 EDT, ER Tablet, [facility]/pharmacy #[id number], Partial fill upon patient request [...] 04/19/23 20:48:00 EDT, Route to Pharmacy Electronically, [place] [id number], 165, cm, 04/09/23 9:47:00 EDT, Height, 89.1, [...] EST, Supply Start Date: 12/12/22 Status: Ordered Structural Designer Structural Designer, See Instructions, # 1 each, Refills [...] Health half-way, active care coordination PADMINI Mata [phone] Confirmed Active Fatty infiltration of liver Confirmed [...] Name: Cortez Golden RN Position: [facility] RN [...] Name: Aziza Poole RN Position: [facility] [...] RN Position: [facility] RN Vikram Member Role: Primary Care Nurse Name: Ophelia Marie RN Position: [facility] RN Member Role: Primary Care Nurse Name: Nolvia Mendes RN Position: [facility] RN Member Role: Primary Care Nurse Name: Adi Rees RN Position: [facility] RN Member Role: Primary Care Nurse Name: Alonzo Esposito DO Position: [facility] Resident Member Role: PCP Address: Address: [address] [place] [address]- Name: Doroteo Morrow RN Position: [facility] RN Member Role: Primary Care Nurse Address: Address: [address] [place] [address]- Name: Cassidy Masters RN Position: [facility] RN Member Role: Primary Care Nurse Name: Juancarlos Valente RN Position: [facility] Hospital Fondant Puff Maker Member Role: Primary Care Nurse Care Team Related Persons Name: SYLVIA BARBOSA Address: home [address] [place] [address] Name: GAGE HUNT Address: [address] [place] [address] Name: JOCELYN HUNT Address: home [address] [place] [address]
--- OUTSIDE RECORDS SUMMARY | 2024-05-24 04:40 | XMS_ITS | Continuity of Care Document ---
Author Organization [facility] Address [address] [place] [address]- Care Team Providers Care Readiness Paraprofessional Name Role Phone Alonzo Esposito MD Primary Care Physician [phone] Encounter [facility] Date(s): 02/07/24 - 03/08/[address] [address] Allergies, Adverse Reactions, Alerts Substance [...] influenza virus vaccine, inactivated 12/06/15 Give n [id number] 12y+ bivalent booster vax 11/03/22 Given SARS-CoV-2 mRNA (pfrlofl-gmbo-gfxah) vax 01/26/22 Given SARS-CoV-2 mRNA (mkpyezp-dwbr-ybdau) vax 12/28/21 Given pneumococcal 23-valent vaccine 04/08/18 Recorded pneumococcal 23-valent vaccine 04/22/17 Recorded pneumococcal 23-valent vaccine 12/21/12 Given 1Result Comment: [facility] Medications acetaminophen 325 mg oral tablet 650 mg, 2, tablet, By Mouth, Every 6 hours, PRN, # 120 tablet, Refills 0, Tot. Refills 0, Maintenance, for pain, 02/27/24 18:13:00 EDT, [id number] fill upon patient request if the prescription is for... Start Date: 02/27/24 Status: Ordered aspirin 81 mg oral delayed release tablet 81 mg, By Mouth, Daily, # 30 tablet, Refills 11, Tot. Refills 11, Maintenance, 09/12/23 17:42:00 EST, Route to Pharmacy Electronically, [place], [place] - [id number], For blister pack please., 166, cm, 09/12/23 13:54:00 EST, Height, 9... Start Date: 09/12/23 Status: Ordered atorvastatin 40 mg oral tablet 1 tablet = 40 mg, By Mouth, Daily, # 30 tablet, 11 Refills, Maintenance, 09/12/23 17:42:00 EST, Tablet, [place], [place] - [id number], For blister pack please., 166, cm, 09/12/23 13:54:00 EST, Height, 93, kg, 09/06/23 16:15:00 EST, . Start Date: 09/12/23 Stop Date: 09/06/24 Status: Ordered diclofenac 1% topical gel 1 application, Topically, 4 times a day, PRN Pain , Mild, not to exceed 16 grams/day/single joint of lower extremities, # 100 Gm, 3 Refills, Maintenance, 11/30/23 9:43:00 EST, Gel[id number] Partial fill upon patient request if the prescript... Start Date: 11/30/23 Status: Ordered docusate sodium 100 mg oral tablet 1 tablet, By Mouth, 2 times a day, PRN NEEDED FOR CONSTIPATION, # 60 tablet, 0 Refills, Maintenance, 03/03/24 16:22:00 EDT, [id number], 165, cm, 02/29/24 9:45:00 EDT, Height, 93.1, kg, 02/27/24 11:03:00 EDT, Dry Weight Start Date: 03/03/24 Status: Ordered FLUoxetine 20 mg oral capsule 60 mg, 3, capsule, By Mouth, Daily, TAKE 3 CAPSULES BY MOUTH EVERY DAY IN THE MORNING, # 90 capsule, Refills 11, Tot. Refills 11, Maintenance, 09/12/23 17:44:00 EST, Route to Pharmacy Electronically,[place], [place] - [id number], for... Start Date: 09/12/23 Status: Ordered gabapentin 800 mg oral tablet 1 tablet = 800 mg, By Mouth, 3 times a day, # 90 tablet, 3 Refills, Maintenance, 02/29/24 9:58:00 EDT, Tablet, [facility]/pharmacy #[id number], Partial fill upon patient request if the prescription is for a schedule II opioid drug., 165, cm, 02/29/24 9:45:00 EDT,... Start Date: 02/29/24 Status: Ordered nitroglycerin 0.4 mg sublingual tablet 1 tablet = 0.4 mg, Sublingual, Every 5 minutes, PRN Chest Pain, # 100 tablet, 0 Refills, Maintenance, 06/08/23 16:23:00 EDT, Tablet, [facility]/pharmacy #[id number], Partial fill upon patient request if the prescription is for a schedule II opioid drug., 165, cm,... Start Date: 06/08/23 Status: Ordered oxyCODONE 15 mg oral tablet 1 tablet = 15 mg, By Mouth, Every 6 hours, PRN Pain , Severe, controlled substance agreement., # 120 tablet, 0 Refills, Maintenance, 02/29/24 10:11:00 EDT, Tablet, [facility]/pharmacy #[id number], Partial fill upon patient request if the prescription is for a sche... Start Date: 02/29/24 Status: Ordered risperiDONE 2 mg oral tablet 4 mg, 2, tablet, By Mouth, Daily at bedtime, Rx'd by psychiatry, # 60 tablet, Refills 11, Tot. Refills 11, Maintenance, 09/12/23 17:44:00 EST, Route to Pharmacy Electronically, [place], [place] - [id number], for blister pack, 166, cm... Start Date: 09/12/23 Status: Ordered tiZANidine 2 mg oral tablet 4 mg, 2, tablet, By Mouth, Every 8 hours, # 180 tablet, Refills 3, Tot. Refills 3, Maintenance, 02/29/24 9:59:00 EDT, Route to Pharmacy Electronically, [facility]/pharmacy #[id number], Partial fill upon patient request if the prescription is for a schedule II opio... Start Date: 02/29/24 Status: Ordered traZODone 100 mg oral tablet 50 mg, 0.5, tablet, By Mouth, Daily at bedtime, # 15 tablet, Refills 11, Tot. Refills 11, Maintenance, 09/12/23 17:44:00 EST, Route to Pharmacy Electronically, [facility] [place] [place] - [id number], Partial fill upon patient request if the pr... Start Date: 09/12/23 Status: Ordered Ventolin HFA 108 mcg/inh inhalation aerosol with adapter 2 puffs, Inhalation, 4 times a day, PRN NEEDED FOR WHEEZING, # 18 Gm, 11 Refills, Maintenance, 02/22/23 8:17:00 EDT, [facility]/pharmacy #[id number], 166, cm, 01/18/23 15:56:00 EDT, Height, [...] Active Right knee pain Confirmed Active Health alf, active care coordination Netta Mata [phone] Confirmed Active Cervical stenosis of spine Confirmed [...] Care Nurse Name: Macarena Lewis RN Position: [facility] RN Member Role: Primary Care Nurse Name: Mallory Lugo RN Position: [facility] RN Member Role: Primary Care Nurse Name: Carmen Gao RN Position: [facility] ED RN W/OE and Tasks Member Role: [...] Name: Doris Butler RN Position: [facility] RN Member Role: Primary Care Nurse Name: Aziza Poole RN Position: [facility] RN Member Role: Primary Care Nurse Name: Katheryn Wu RN Position: [facility] SN RN Member Role: Primary Care Nurse Name: Doris Dee RN Position: [facility] RN Member Role: Primary Care Nurse Name: Janae Soto RN Position: [facility] RN Member Role: Primary Care Nurse Name: Daphney Echols LPN Position: [facility] RN Member Role: Primary Care Nurse Name: Nini Odonnell RN Position: [facility] RN Member Role: Primary Care Nurse Name: Jennifer Thakkar RN Position: [facility] RN Member Role: Primary Care Nurse Name: Hyun Ochoa RN Position: [facility] RN Member Role: Primary Care Nurse Name: Yazmin Lay RN Position: [facility] RN [...] Marie RN Position: [facility] SN RN Member Role: Primary Care Nurse Name: Nolvia Mendes RN Position: [facility] RN Member Role: Primary Care Nurse Name: Tyrone Germain RN Position: [facility] RN Member Role: Primary Care Nurse Name: Adi Rees RN Position: [facility] RN Member Role: Primary Care Nurse Name: Alonzo Esposito MD Position: [facility] Physician - Primary Care Member Role: PCP Address: Address: [address] [place] [address]- Name: Cassidy Masters RN Position: [facility] RN Member Role: Primary Care Nurse Name: Junacarlos Valente RN Position: [facility] Member Role: Primary Care Nurse Name: Tran Wiseman RN Position: [facility] RN Member Role: Primary Care Nurse Care Team Related Persons Name: SYLVIA BARBOSA Address: home [address] [place] [address] Name: GAGE HUNT Address: [address] [place] [address] Name: JOCELYN HUNT Address: [address] [place] [address]
--- OUTSIDE RECORDS SUMMARY | 2024-05-24 04:40 | XMS_ITS | Continuity of Care Document ---
Author Organization [facility] Address [address] [place] [address]- Care Team Providers Care Fisheries Specialist Name Role Phone Alonzo Esposito MD Primary Care Physician [phone] Encounter [facility] Date(s): 11/09/23 - 12/09/23 [facility] [address] [place], [place] [address] Attending Physician: Juanis Dunn MD Referring Physician: Alonzo Esposito MD Allergies, [...] influenza virus vaccine, inactivated 12/06/15 Give n [id number] 12y+ bivalent booster vax 11/03/22 Given SARS-CoV-2 mRNA (bknffka-aujf-qmqer) vax 01/26/22 Given SARS-CoV-2 mRNA (mtpjasq-fpvf-qonsh) vax 12/28/21 Given pneumococcal 23-valent vaccine 04/08/18 Recorded pneumococcal 23-valent vaccine 7/9/17 Recorded pneumococcal 23-valent vaccine 12/21/12 Given 1Result Comment: [facility] Medications aspirin 81 mg oral delayed release tablet 81 mg, By Mouth, Daily, # 30 tablet, Refills 11, Tot. Refills 11, Maintenance, 09/12/23 17:42:00 EST, Route to Pharmacy Electronically, [facility] [id number], For blister pack please., 166, cm, 09/12/23 13:54:00 EST, Height, 9... Start Date: 09/12/23 Status: Ordered atorvastatin 40 mg oral tablet 1 tablet = 40 mg, By Mouth, Daily, # 30 tablet, 11 Refills, Maintenance, 09/12/23 17:42:00 EST, Tablet, [facility] [id number], For blister pack please., 166, cm, 09/12/23 [...] Maintenance, 09/12/23 17:44:00 EST, Route to Pharmacy Electronically,[facility] [id number], for... Start Date: 09/12/23 Status: Ordered gabapentin [...] 0 Refills, Maintenance, 11/30/23 9:38:00 EST, [id number] fill upon patient request if the prescription is for a sched... Start Date: 11/30/23 Status: Ordered propranolol 20 mg oral tablet 2, tablet, By Mouth, 2 times a day, # 120 tablet, Refills 11, Tot. Refills 11, Maintenance, 09/12/23 17:42:00 EST, Route to Pharmacy Electronically, [facility] [id number], For blister pack please., 166, cm, 09/12/23 13:54:00 E... Start Date: 09/12/23 Status: Ordered risperiDONE 2 mg oral tablet 4 mg, 2, tablet, By Mouth, Daily at bedtime, Rx'd by psychiatry, # 60 tablet, Refills 11, Tot. Refills 11, Maintenance, 09/12/23 17:44:00 EST, Route to Pharmacy Electronically, [facility] [id number], for blister pack, 166, cm... Start Date: 09/12/23 Status: Ordered traZODone 100 mg oral tablet 50 mg, 0.5, tablet, By Mouth, Daily at bedtime, # 15 tablet, Refills 11, Tot. Refills 11, Maintenance, 09/12/23 17:44:00 EST, Route to Pharmacy Electronically, [facility] [id number], Partial fill upon patient request if the [...] Health nursing home, active care coordination [facility] [phone] Confirmed Active Fatty infiltration of liver Confirmed Active Tubular adenoma of colon Confirmed Active 1history of this with surgical correction Social History Social History Type Response Smoking Status Former smoker; Other : Quit 2014; entered on: 09/10/17 Sex Patient Care team information Care Team Personnel Name: Elvia Collins RN Position: [facility] RN Member Role: Primary Care Nurse Name: Macarena Lewis RN [facility] RN Position: [facility] SN RN Member Role: Primary Care Nurse Name: Catalina Pack RN Position: [facility] SN RN Member Role: Primary Care Nurse Name: Clifford Gerber RN Position: [facility] RN Member Role: Primary Care Nurse Name: Doris Butler RN Position: [facility] RN Member Role: Primary Care Nurse Name: Aziza Poole RN Position: [facility] RN Member Role: Primary Care Nurse Name: Monet Miller RN Position: [facility] RN Member Role: Primary Care Nurse Name: Katheryn Wu RN Position: [facility] SN RN Member Role: Primary Care Nurse Name: Doris Dee RN Position: [facility] RN Member Role: Primary Care Nurse Name: Janae Soto RN Position: [facility] RN Member Role: Primary Care Nurse Name: Daphney Echols LPN Position: [facility] RN Member Role: Primary Care Nurse Name: Nini Odonnell RN Position: [facility] RN Member Role: Primary Care Nurse Name: Jennifer Thakkar RN Position: [facility] RN Member Role: Primary Care Nurse Name: Hyun Ochoa RN Position: [facility] RN Member Role: Primary Care Nurse Name: Yazmin Lay RN Position: [facility] [...] Care Nurse Name: Tyrone Germain RN Position: [facility] RN Member Role: Primary Care Nurse Name: Adi Rees RN Position: [facility] RN Member Role: Primary Care Nurse Name: Alonzo Esposito MD Position: [facility] Physician - Primary Care Member Role: PCP Address: Address: [address] [place] [address]- Name: Doroteo Morrow RN Position: [facility] RN Member Role: Primary Care Nurse Address: Address: [address] [place] [address]- [place] Name: Cassidy Masters RN Position: [facility] RN Member Role: Primary Care Nurse Name: Ambrosio RN, Juancarlos Position: [facility] Hospital Vocal Artist Member Role: Primary Care Nurse Name: Ivone GOLDEN, Tran Position: [facility] RN Member Role: Primary Care Nurse Care Team Related Persons Name: SYLVIA BARBOSA Address: home [address] [place] [id number] Name: GAGE HUNT Address: [address] [place] [address] Name: JOCELYN HUNT Address: [address] [place] [address]
--- OUTSIDE RECORDS SUMMARY | 2024-05-24 04:40 | XMS_ITS | Continuity of Care Document ---
Author Organization [facility] Address [address] [place] [address]- Care Team Providers Care School Principal Name Role Phone Alonzo Esposito MD Primary Care Physician Encounter [facility] Date(s): 09/11/23 - 10/11/[address] [id number] Allergies, Adverse Reactions, Alerts Substance [...] influenza virus vaccine, inactivated 12/06/15 Give n [id number] 12y+ bivalent booster vax 11/03/22 Given SARS-CoV-2 mRNA (tpmzgiw-qgwq-mgpfa) vax 01/26/22 Given SARS-CoV-2 mRNA (prmqppe-eoxx-cilfl) vax 12/28/21 Given tetanus/diphtheria/pertussis, acel(Tdap) 03/29/19 Given tetanus/diphtheria/pertussis, acel(Tdap) 09/10/17 Given pneumococcal 23-valent vaccine 04/08/18 Recorded pneumococcal 23-valent vaccine 04/22/17 Recorded pneumococcal 23-valent vaccine 12/21/12 Given Medications aspirin 81 mg oral delayed release tablet 81 mg, By Mouth, Daily, # 30 tablet, Refills 11, Tot. Refills 11, Maintenance, 09/12/23 17:42:00 EST, Route to Pharmacy Electronically, [facility] [id number], For blister pack please., 166, cm, 09/12/23 13:54:00 EST, Height, 9... Start Date: 09/12/23 Status: Ordered atorvastatin 40 mg oral tablet 1 tablet = 40 mg, By Mouth, Daily, # 30 tablet, 11 Refills, Maintenance, 09/12/23 17:42:00 EST, Tablet, [place], [place] - [id number], For blister pack please., 166, cm, 09/12/23 13:54:00 EST, Height, 93, kg, 09/06/23 16:15:00 EST, DrNicholas. Start Date: 09/12/23 Stop Date: 09/06/24 Status: Ordered chlorhexidine topical 0.12% liquid See Instructions, SWISH AND SPIT DO NOT SWALLOW. USE 3-4 X/ DAY, # 473 mL, 0 Refills, Maintenance, 09/25/23 16:56:00 EST, [facility] STORE [id number], 30, SWISH AND SPIT DO NOT SWALLOW. USE 3-4 X/ DAY, 166, cm, 09/21/23 11:32:00 EST, Height, 93, kg, 09/14/23 12:3... Start Date: 09/25/23 Status: Ordered docusate sodium 100 mg oral tablet 1 tablet = 100 mg, By Mouth, 2 times a day, PRN for constipation, # 60 tablet, 0 Refills, Maintenance, 09/27/23 13:27:00 EST, Tablet, [facility]/pharmacy #[id number], Partial fill upon patient request if the prescription is for a schedule II opioid drug., 166, cm,... Start Date: 09/27/23 Status: Ordered FLUoxetine 20 mg oral capsule 60 mg, 3, capsule, By Mouth, Daily, TAKE 3 CAPSULES BY MOUTH EVERY DAY IN THE MORNING, # 90 capsule, Refills 11, Tot. Refills 11, Maintenance, 09/12/23 17:44:00 EST, Route to Pharmacy Electronically,[facility] [id number], for... Start Date: 09/12/23 Status: Ordered gabapentin 300 mg oral capsule 300 mg, 1, capsule, By Mouth, 2 times a day, # 60 capsule, Refills 11, Tot. Refills 11, Maintenance, 09/12/23 17:42:00 EST, Route to Pharmacy Electronically, [facility] [id number], For blister pack please., 166, cm, 09/12/23 1... Start Date: 09/12/23 Status: Ordered nitroglycerin 0.4 mg sublingual tablet 1 tablet = 0.4 mg, Sublingual, Every 5 minutes, PRN Chest Pain, # 100 tablet, 0 Refills, Maintenance, 06/08/23 16:23:00 EDT, [id number] Partial fill upon patient request if the prescription is for a schedule II opioid drug., 165, cm,... Start Date: 06/08/23 Status: Ordered oxyCODONE 15 mg oral tablet 1 tablet = 15 mg, By Mouth, Every 6 hours, PRN Pain , Severe, controlled substance agreement. adjusting dose back to previous dose., # 120 tablet, 0 Refills, Maintenance, 09/24/23 12:55:00 EST, Tablet[id number] Partial fill upon patient req... Start Date: 09/24/23 Status: Ordered propranolol 20 mg oral tablet 2, tablet, By Mouth, 2 times a day, # 120 tablet, Refills 11, Tot. Refills , Maintenance, 09/12/23 17:42:00 EST, Route to Pharmacy Electronically, [facility] [id number], For blister pack please., 166, cm, 09/12/23 13:54:00 E... Start Date: 09/12/23 Status: Ordered risperiDONE 2 mg oral tablet 4 mg, 2, tablet, By Mouth, Daily at bedtime, Rx'd by psychiatry, # 60 tablet, Refills 11, Tot. Refills , Maintenance, 09/12/23 17:44:00 EST, Route to Pharmacy Electronically, [facility] [id number], for blister pack, 166, cm... Start Date: [...] 09/12/23 17:44:00 EST, Route to Pharmacy Electronically, [facility], [place] - [id number], Partial fill upon patient request if the [...] [facility], active care coordination PADMINI Nancy [facility] [phone] Confirmed Active Fatty infiltration of liver Confirmed [...] Care Nurse Name: Mallory Lugo RN Position: [facility] RN Member Role: Primary Care Nurse Name: Sima RNCarmen Position: [facility] ED RN W/OE and Tasks Member Role: Primary Care Nurse Name: Dacia Evangelista RN Position: [facility] RN Member Role: Primary Care Nurse Name: Tracey Linares RN Position: [facility] AMB Nurse Member Role: Primary Care Nurse Name: Italia Ortega RN Position: [facility] RN Member Role: Primary Care Nurse Name: Catalina He RN Position: [facility] AMB Nurse Member Role: Primary Care Nurse Name: Jessica Lantigua RN Position: [facility] SN RN Member Role: Primary Care Nurse Name: Catalina Pack RN Position: [facility] SN RN Member Role: Primary Care Nurse Name: Clifford Gerber RN Position: [facility] RN Member Role: Primary Care Nurse Name: Doris Butler RN Position: [facility] RN Member Role: Primary Care Nurse Name: Aziza Poole RN Position: [facility] RN Member Role: Primary Care Nurse Name: Monet Miller RN Position: [facility] RN Member Role: Primary Care Nurse Name: Katheryn Wu RN Position: [facility] SN RN Member Role: Primary Care Nurse Name: Doris Dee RN Position: [facility] RN Member Role: Primary Care Nurse Name: Janae Soto RN Position: [facility] RN Member Role: Primary Care Nurse Name: Daphney Echols LPN Position: [facility] RN Member Role: Primary Care Nurse Name: Nini Odonnell RN Position: [facility] RN Member Role: Primary Care Nurse Name: Jennifer Thakkar RN Position: [facility] RN Member Role: Primary Care Nurse Name: Hyun Ochoa RN Position: [facility] RN Member Role: Primary Care Nurse Name: Yazmin Lay RN Position: [facility] RN Member Role: Primary Care Nurse Name: Nancy Magana RN Position: [facility] RN Member Role: Primary Care Nurse Name: Ranjana Zavala RN Position: [facility] RN Member Role: Primary Care Nurse Name: Melvi Carter RN Position: [facility] OB RN Member Role: Primary Care Nurse Name: Jackson Rosen RN Position: [facility] RN Member Role: Primary Care Nurse Name: Clarissa Rodriguez RN Position: [facility] RN Supv Member Role: Primary Care Nurse Name: Ophelia Marie RN Position: [facility] RN Member Role: Primary Care Nurse Name: Nolvia Mendes RN Position: [facility] RN Member Role: Primary Care Nurse Name: Tyrone Germain RN Position: [facility] RN Member Role: Primary Care Nurse Name: Adi Rees RN Position: [facility] RN Member Role: Primary Care Nurse Name: Orlando Mcallister RN Position: [facility] RN Member Role: Primary Care Nurse Name: Alonzo Esposito MD Position: [facility] Physician - Primary Care Member Role: PCP Address: Address: [address] [place] [address]- [place] Name: Doroteo Morrow RN Position: [facility] RN Member Role: Primary Care Nurse Address: Address: [address] [place] [address]- Name: Cassidy Masters RN Position: [facility] RN Member Role: Primary Care Nurse Name: Juancarlos Valente RN Position: [facility] Cheese Processor Member Role: Primary Care Nurse Name: Tran Wiseman RN Position: [facility] RN Member Role: Primary Care Nurse Care Team Related Persons Name: SYLVIA BARBOSA Address: home [address] [place] [id number] Name: GAGE HUNT Address: home [address] [place] [address] Name: JOCELYN HUNT Address: home [address] [place] [address]
--- OUTSIDE RECORDS SUMMARY | 2024-05-24 04:41 | XMS_ITS | Continuity of Care Document ---
Author Organization [facility] Address [address] [place] [address]- Care Team Providers Care Tire Sorter Name Role Phone Dawna Hernandez MD Primary Care Physician Encounter [facility] Date(s): 01/05/23 - 02/08/[address] [id number] Attending Physician: Dawna Hernandez MD Admitting Physician: Dawna Hernandez MD Referring Physician: Dawna Hernandez MD Allergies, Adverse Reactions, Alerts Substance Reaction Severity Status lisinopril Angioedema Active Shrimp Active Immunizations Given and Recorded Vaccine Date Status Refusal Reason [id number] 12y+ bivalent booster vax 11/03/22 Given influenza virus vaccine, inactivated 11/03/22 Give n influenza virus vaccine, inactivated 02/15/22 Give n influenza virus vaccine, inactivated 09/01/20 Give n influenza virus vaccine, inactivated 09/15/19 Give n influenza virus vaccine, inactivated 11/19/18 Give n influenza virus vaccine, inactivated 09/10/17 Give n influenza virus vaccine, inactivated 12/06/15 Give n SARS-CoV-2 mRNA (gpkwjlo-pcmj-cnmza) vax 01/26/22 Given SARS-CoV-2 mRNA (vzegfds-avph-jodba) vax 12/28/21 Given tetanus/diphtheria/pertussis, acel(Tdap) 03/29/19 Given [...] Maintenance, 05/11/22 14:22:00 EDT, Tablet, [facility]/pharmacy [...] Refills, Maintenance, 04/05/22 7:53:00 EDT, [facility]/pharmacy #[id number], 165, cm, 02/15/22 10:35:00 EDT, Height, 90.7, kg, 02/06/22 19:49:00 EDT, Dry Weight Start Date: 04/05/22 Status: Ordered Colace sodium 100 mg oral capsule 100 mg, 1, capsule, By Mouth, 2 times a day, PRN, # 20 capsule, Refills 0, Tot. Refills 0, Maintenance, for constipation, 09/22/22 9:53:00 EST, Route to Pharmacy Electronically, [facility]/pharmacy #[id number], Partial [...] 0 Refills, Maintenance, 01/26/23 13:08:00 EDT, Tablet, [facility] #[id number], Partial fill upon patient request if the [...] Refills, Maintenance, 07/20/22 15:26:00 EDT, [facility] STORE [id number], 10, APPLY 1 PATCH DAILY NEEDED FOR MODERATE PAIN..REMOVE AFTER 12... Start Date: 07/20/22 Status: Ordered nitroglycerin 0.4 mg sublingual tablet 1 tablet = 0.4 mg, Sublingual, Every 5 minutes, PRN Chest Pain, # 100 tablet, 0 Refills, Maintenance, 11/06/22 13:52:00 EST, Tablet, [facility]/pharmacy #[id number], Partial fill upon patient request if the prescription is for a schedule II opioid drug., 175, cm,... Start Date: 11/06/22 Status: Ordered omeprazole 20 mg oral enteric coated capsule 1 capsule = 20 mg, By Mouth, Daily, # 30 capsule, 1 Refills, Maintenance, 01/04/23 12:40:00 EDT, ECCapsule, [facility]/pharmacy #[id number], Partial [...] Refills, Maintenance, 01/22/23 15:38:00 EDT, ER Tablet, [facility]/pharmacy #[id number], [...] tablet, Refills 5, Route to Pharmacy Electronically, [facility] STORE [id number], 166, cm, 12/28/21 10:33:00 EDT, Height, 91.9, [...] EST, Supply Start Date: 12/12/22 Status: Ordered Supply Chain Consultant Supply Chain Consultant, See Instructions, # 1 each, Refills 0, [...] each, 0 Refills, Maintenance, 12/12/22 12:14:00 EST, [facility] STORE 01007, 175, cm, 11/15/22 9:07:00 EST, Height, 88.2, [...] Confirmed Active Health snf, active care coordination [facility] [phone] Confirmed Active Fatty infiltration of liver Confirmed Active Tubular adenoma of colon Confirmed Active 1history of this with surgical correction Social History Social History Type Response Smoking Status Former smoker; Other : Quit 2014; entered on: 09/10/17 Sex Patient Care team information Care Team Personnel Name: Macarena Lewis RN Position: [facility] RN Member Role: Primary Care Nurse Name: Mallory Lugo RN Position: [facility] RN Member Role: Primary Care Nurse Name: Carmen Gao RN Position: [facility] RN Member Role: Primary Care Nurse Name: Dacia Evangelista RN Position: [facility] RN Member Role: Primary Care Nurse Name: Tracey Linares RN Position: [facility] PCO RN Member Role: Primary Care Nurse Name: Italia Ortega RN Position: [facility] RN Member Role: Primary Care Nurse Name: Catalina eH RN Position: [facility] AMB Nurse Member Role: Primary Care Nurse Name: Cortez Golden RN Position: [facility] RN Member Role: Primary Care Nurse Name: Jessica Lantigua RN Position: [facility] SN RN Member Role: Primary Care Nurse Name: Catalina Pack RN Position: [facility] SN RN Member Role: Primary Care Nurse Name: Clifford Gerber RN Position: [facility] RN Member Role: Primary Care Nurse Name: Peter Monahan RN Position: [facility] RN Member Role: Primary Care Nurse Name: Aziza Poole RN Position: [facility] RN Member Role: Primary Care Nurse Name: Monet Miller RN Position: [facility] RN Member Role: Primary Care Nurse Name: Katheryn Wu RN Position: [facility] RN Member Role: Primary Care Nurse Name: Doris Dee RN Position: [facility] RN Member Role: Primary Care Nurse Name: Janae Soto RN Position: [facility] RN Member Role: Primary Care Nurse Name: Hyun Ochoa RN Position: [facility] RN Member Role: Primary Care Nurse Name: Nancy Magana RN Position: [facility] RN Member Role: Primary Care Nurse Name: Ranjana Zavala RN Position: [facility] RN Member Role: Primary Care Nurse Name: Melvi Carter RN Position: [facility] OB RN Member Role: Primary Care Nurse Name: Jackson Rosen RN Position: [facility] RN Member Role: Primary Care Nurse Name: Clarissa Rodriguez RN Position: [facility] RN Supv Member Role: Primary Care Nurse Name: Ophelia Marie RN Position: [facility] RN Member Role: Primary Care Nurse Name: Nolvia Mendes RN Position: [facility] RN Member Role: Primary Care Nurse Name: Adi Rees RN Position: [facility] RN Member Role: Primary Care Nurse Name: Doroteo Morrow RN Position: [facility] RN Member Role: Primary Care Nurse Address: Address: [address] [place] [address]- Name: Cassidy Masters RN Position: [facility] RN Member Role: Primary Care Nurse Name: Juancarlos Valente RN Position: [facility] Hospital Scudding Inspector Member Role: Primary Care Nurse Name: Dawna Hernandez MD Position: [facility] Primary Care Physician Member Role: PCP Address: Address: [address] [place] [id number]- [place] Care Team Related Persons Name: SYLVIA BARBOSA Address: home [address] [place] [address] Name: GAGE HUNT Address: [address] [place] [address] Name: JOCELYN HUNT Address: home [address] [place] [address]
--- OUTSIDE RECORDS SUMMARY | 2024-05-24 04:41 | XMS_ITS | Continuity of Care Document ---
Author Organization [facility] Address [address] [place] [address]- Care Team Providers Care Proposal Specialist Name Role Phone Alonzo Esposito MD Primary Care Physician Encounter [facility] Date(s): 09/24/23 - 10/24/[address] [id number] Allergies, Adverse Reactions, Alerts Substance [...] influenza virus vaccine, inactivated 12/06/15 Give n [id number] 12y+ bivalent booster vax 11/03/22 Given SARS-CoV-2 mRNA (mxhunco-whpy-wbbex) vax 01/26/22 Given SARS-CoV-2 mRNA (rfqnqdc-rolf-nsbyd) vax 12/28/21 Given tetanus/diphtheria/pertussis, acel(Tdap) 03/29/19 Given tetanus/diphtheria/pertussis, acel(Tdap) 09/10/17 Given pneumococcal 23-valent vaccine 04/08/18 Recorded pneumococcal 23-valent vaccine 04/22/17 Recorded pneumococcal 23-valent vaccine 12/21/12 Given Medications aspirin 81 mg oral delayed release tablet 81 mg, By Mouth, Daily, # 30 tablet, Refills 11, Tot. Refills 11, Maintenance, 09/12/23 17:42:00 EST, Route to Pharmacy Electronically, [facility] [id number], For blister pack please., 166, cm, 09/12/23 13:54:00 EST, Height, 9... Start Date: 09/12/23 Status: Ordered atorvastatin 40 mg oral tablet 1 tablet = 40 mg, By Mouth, Daily, # 30 tablet, 11 Refills, Maintenance, 09/12/23 17:42:00 EST, Tablet, [place], [place] - [id number], For blister pack please., 166, cm, 09/12/23 13:54:00 EST, Height, 93, kg, 09/06/23 16:15:00 EST, DrMicheal.. Start Date: 09/12/23 Stop Date: 09/06/24 Status: Ordered chlorhexidine topical 0.12% liquid See Instructions, SWISH AND SPIT DO NOT SWALLOW. USE 3-4 X/ DAY, # 473 mL, 0 Refills, Maintenance, 09/25/23 16:56:00 EST, [facility] STORE [id number], 30, SWISH AND SPIT DO NOT SWALLOW. USE 3-4 X/ DAY, 166, cm, 09/21/23 11:32:00 EST, Height, 93, kg, 09/14/23 12:3... Start Date: 09/25/23 Status: Ordered docusate sodium 100 mg oral tablet 1 tablet = 100 mg, By Mouth, 2 times a day, PRN for constipation, # 60 tablet, 0 Refills, Maintenance, 09/27/23 13:27:00 EST, Tablet, [facility]/pharmacy #[id number], Partial fill upon patient request if the prescription is for a schedule II opioid drug., 166, cm,... Start Date: 09/27/23 Status: Ordered FLUoxetine 20 mg oral capsule 60 mg, 3, capsule, By Mouth, Daily, TAKE 3 CAPSULES BY MOUTH EVERY DAY IN THE MORNING, # 90 capsule, Refills 11, Tot. Refills 11, Maintenance, 09/12/23 17:44:00 EST, Route to Pharmacy Electronically,[facility] [id number], for... Start Date: 09/12/23 Status: Ordered gabapentin 300 mg oral capsule 300 mg, 1, capsule, By Mouth, 2 times a day, # 60 capsule, Refills 11, Tot. Refills 11, Maintenance, 09/12/23 17:42:00 EST, Route to Pharmacy Electronically, [facility] [id number], For blister pack please., 166, cm, 09/12/23 1... Start Date: 09/12/23 Status: Ordered nitroglycerin 0.4 mg sublingual tablet 1 tablet = 0.4 mg, Sublingual, Every 5 minutes, PRN Chest Pain, # 100 tablet, 0 Refills, Maintenance, 06/08/23 16:23:00 EDT, [id number] fill upon patient request [...] 0 Refills, Maintenance, 10/22/23 11:37:00 EST, Tablet, [id number]... Start Date: 10/22/23 Status: Ordered propranolol 20 mg oral tablet 2, tablet, By Mouth, 2 times a day, # 120 tablet, Refills 11, Tot. Refills , Maintenance, 09/12/23 17:42:00 EST, Route to Pharmacy Electronically, [facility] [id number], For blister pack please., 166, cm, 09/12/23 13:54:00 E... Start Date: 09/12/23 Status: Ordered risperiDONE 2 mg oral tablet 4 mg, 2, tablet, By Mouth, Daily at bedtime, Rx'd by psychiatry, # 60 tablet, Refills 11, Tot. Refills 11, Maintenance, 09/12/23 17:44:00 EST, Route to Pharmacy Electronically, [facility] [id number], for blister pack, 166, cm... Start Date: 09/12/23 Status: Ordered tiZANidine 2 mg oral tablet 2 mg, 1, tablet, By Mouth, 3 times a day, Can take two tablets at bedtime. Do not take at the same time as oxycodone., # 90 tablet, Refills 0, Tot. Refills 0, Maintenance, 09/26/23 10:38:00 EST, Route to Pharmacy Electronically, [facility]/pharmacy #[id number], Sp... Start Date: 09/26/23 Status: Ordered traZODone 100 mg oral tablet 50 mg, 0.5, tablet, By Mouth, Daily at bedtime, # 15 tablet, Refills 11, Tot. Refills 11, Maintenance, 09/12/23 17:44:00 EST, Route to Pharmacy Electronically, [facility] [place] [place] - [id number], Partial fill upon patient request if the pr... Start Date: 09/12/23 Status: Ordered Ventolin HFA 108 mcg/inh inhalation aerosol with adapter 2 puffs, Inhalation, 4 times a day, PRN NEEDED FOR WHEEZING, # 18 Gm, 11 Refills, Maintenance, 02/22/23 8:17:00 EDT, [facility]/pharmacy #[id number], 166, cm, 01/18/23 [...] Active Health senior living, active care coordination PADMINI Nancy [facility] [place] [phone] Confirmed Active Fatty infiltration of liver Confirmed Active Tubular adenoma of colon Confirmed Active 1history of this with surgical correction Social History Social History Type Response Smoking Status Former smoker; Other : Quit 2014; entered on: 09/10/17 Sex Patient Care team information Care Team Personnel Name: Elvia Collins RN Position: [facility] RN Member Role: Primary Care Nurse Name: Macarena Lewis RN Position: [facility] RN Member Role: Primary Care Nurse Name: Mallory Lugo RN Position: [facility] RN Member Role: Primary Care Nurse Name: Sima RNCarmen Position: [facility] ED RN W/OE and Tasks Member Role: Primary Care Nurse Name: Dacia Evangelista RN Position: [facility] RN Member Role: Primary Care Nurse Name: Tracey Linares RN Position: [facility] AMB Nurse Member Role: Primary Care Nurse Name: Italia Ortega RN Position: [facility] RN Member Role: Primary Care Nurse Name: Catalina He RN Position: [facility] AMB Nurse Member Role: Primary Care Nurse Name: Jessica Lantigua RN Position: [facility] SN RN Member Role: Primary Care Nurse Name: Catalina Pack RN Position: [facility] SN RN Member Role: Primary Care Nurse Name: Clifford Gerber RN Position: [facility] RN Member Role: Primary Care Nurse Name: Doris Butler RN Position: [facility] RN Member Role: Primary Care Nurse Name: Aziza Poole RN Position: [facility] RN Member Role: Primary Care Nurse Name: Monet Miller RN Position: [facility] RN Member Role: Primary Care Nurse Name: Katheryn Wu RN Position: [facility] SN RN Member Role: Primary Care Nurse Name: Doris Dee RN Position: [facility] RN Member Role: Primary Care Nurse Name: Janae Soto RN Position: [facility] RN Member Role: Primary Care Nurse Name: Daphney Echols LPN Position: [facility] RN Member Role: Primary Care Nurse Name: Nini Odonnell RN Position: [facility] RN Member Role: Primary Care Nurse Name: Jennifer Thakkar RN Position: [facility] RN Member Role: Primary Care Nurse Name: Hyun Ochoa RN Position: [facility] RN Member Role: Primary Care Nurse Name: Yazmin Lay RN Position: [facility] [...] Care Nurse Name: Clarissa Rodriguez RN Position: [facility] [...] Care Nurse Name: Orlando Mcallister RN Position: [facility] RN Member Role: Primary Care Nurse Name: Alonzo Esposito MD Position: [facility] Physician - Primary Care Member Role: PCP Address: Address: [address] [place] [address]- Name: Doroteo Morrow RN Position: [facility] RN Member Role: Primary Care Nurse Address: Address: [address] [place] [address]- Name: Cassidy Masters RN Position: [facility] RN Member Role: Primary Care Nurse Name: Juancarlos Valente RN Position: [facility] Hospital Chemical Sprayer Member Role: Primary Care Nurse Name: Tran Wiseman RN Position: [facility] RN Member Role: Primary Care Nurse Care Team Related Persons Name: CHELSEY SYLVIA Address: home [address] [place] [address] Name: GAGE HUNT Address: [address] [place] [address] Name: JOCELYN HUNT Address: home [address] [place] [address]
--- OUTSIDE RECORDS SUMMARY | 2024-05-24 04:41 | XMS_ITS | Continuity of Care Document ---
Author Organization [facility] Address [address] [place] [address]- Care Team Providers Care Machine Puller Over Name Role Phone Maryan RAWLS, Michael Ulloa Primary Care Physician [place] [facility] [place] - 04/01/[address] [address] Attending Physician: Lori Patton Admitting Physician: Lori Patton Referring Physician: Lori Patton Referring Physician: Jonna Graham Allergies, Adverse Reactions, Alerts Substance Reaction Severity Status lisinopril Angioedema Active Shrimp Active Immunizations Given and Recorded Vaccine Date Status Refusal Reason [id number] 12y+ bivalent booster vax 11/03/22 Given influenza virus vaccine, inactivated 11/03/22 Give n influenza virus vaccine, inactivated 02/15/22 Give n influenza virus vaccine, inactivated 09/01/20 Give n influenza virus vaccine, inactivated 09/15/19 Give n influenza virus vaccine, inactivated 11/19/18 Give n influenza virus vaccine, inactivated 09/10/17 Give n influenza virus vaccine, inactivated 12/06/15 Give n SARS-CoV-2 mRNA (tasbwqo-kmzj-mbdln) vax 01/26/22 Given SARS-CoV-2 mRNA (dlfezsq-jhwi-jvasr) vax 12/28/21 Given tetanus/diphtheria/pertussis, acel(Tdap) 03/29/19 Given [...] 03/15/23 0:06:00 EDT, Route to Pharmacy Electronically, [facility]/pharmacy #[id number], Partial fill upon patient request if the prescription is for a schedule II opioid drug.... Start Date: 03/15/23 Status: Ordered atorvastatin 40 mg oral tablet 1 tablet, By Mouth, Daily, # 90 tablet, 1 Refills, Maintenance, 03/01/23 12:46:00 EDT, [id number], 166, cm, 01/18/23 15:56:00 EDT, Height, 91, [...] tablet, 1 Refills, Maintenance, 02/22/23 8:17:00 EDT, [facility] Refills, Maintenance, 03/17/23 20:07:00 EDT, Gel, [id number], Partial fill upon patient request if the prescription is for a schedule II opioid drug., 165, cm, 03/17/23 16:52:00 EDT, Height,... Start Date: 03/17/23 Status: Ordered Dual Channel [...] tablet, 11 Refills, Maintenance, 06/15/22 17:40:00EDT, Tablet, [facility]/pharmacy #[id number], Partial fill upon patient request if the prescription is for a schedule II opioid drug., 165, cm, 06/15/22 14:29:00 ED... Start Date: 06/15/22 Status: Ordered ibuprofen 600 mg oral tablet 600 mg, 1, tablet, By Mouth, 3 times a day, # 90 tablet, Refills 0, Tot. Refills 0, Maintenance, 09/06/22 21:10:00 EST, Route to Pharmacy Electronically, [facility]/pharmacy #[id number], Partial fill upon patientrequest [...] 0 Refills, Maintenance, 03/17/23 20:07:00 EDT, Film, [facility]/pharmacy #[id number], Partial fill upon patient request if the prescription is for a schedule II opioid drug., 1 patch Top... Start Date: 03/17/23 Status: Ordered lidocaine 5% topical film 1 patch, Topically, Daily, PRN NEEDED FOR MODERATE PAIN, REMOVE AFTER 12 HOURS (12 HRS ON, 12 HRS OFF), # 10 patch, 0 Refills, Maintenance, 07/20/22 15:26:00 EDT, [facility] ST[facility] [id number], 10, APPLY 1 PATCH DAILY NEEDED FOR MODERATE PAIN..REMOVE AFTER 12... Start Date: 07/20/22 Status: Ordered Medrol Dosepak 4 mg oral tablet 1 pack/packet, By Mouth, Daily, for 6 days, as directed on package labeling, # 21 tablet, 5 Refills, Acute 04/22/23 20:03:00 EDT, 03/17/23 20:03:00 EDT, Tablet, [facility]/pharmacy #[id number], Partial fill upon patient request if the prescription is for a schedul... Start Date: 03/17/23 Stop Date: 04/22/23 Status: Ordered Motrin IB 200 mg oral tablet 2 tablet = 400 mg, By Mouth, Every 6 hours, PRN for pain, # 120 tablet, 0 Refills, Maintenance, 03/17/23 20:06:00 EDT, Tablet, [facility]/pharmacy #[id number], Partial fill upon patient request if the prescription is for a schedule II opioid drug., 165, cm, ... Start Date: 03/17/23 Status: Ordered nitroglycerin 0.4 mg sublingual tablet 1 tablet = 0.4 mg, Sublingual, Every 5 minutes, PRN Chest Pain, # 100 tablet, 0 Refills, Maintenance, 11/06/22 13:52:00 EST, Tablet, [facility]/pharmacy #[id number], Partial fill upon patient request if the prescription is for a schedule II opioid drug., 175, cm,... Start Date: 11/06/22 Status: Ordered omeprazole 20 mg oral enteric coated capsule 1 capsule, By Mouth, Daily, # 30 capsule, 5 Refills, Maintenance, 03/03/23 15:23:00 EDT, [facility] ST[facility] [id number], 166, cm, 01/18/23 15:56:00 EDT, Height, 91, kg, 01/18/23 15:56:00 EDT, Dry Weight Start Date: 03/03/23 Status: Ordered OxyCONTIN 15 mg oral tablet, extended release 1 tablet = 15 mg, By Mouth, Every 12 hours, MassPAT checked dx: M54.5 on agreement do not fill until 03/24/23, # 60 tablet, 0 Refills, Maintenance, 03/21/23 21:24:00 EDT, ER Tablet, [facility]/pharmacy #[id number], Partial fill upon patient request if the presc... Start Date: 03/21/23 Status: Ordered PAP Supplies - Mask, Tubing, [...] tablet, Refills 5, Route to Pharmacy Electronically, [facility] ST[facility] [id number], 166, cm, 12/28/21 10:33:00 EDT, Height, 91.9, [...] EST, Supply Start Date: 12/12/22 Status: Ordered Answering Service Operator Answering Service Operator, See Instructions, # 1 each, Refills [...] 03/17/23 20:06:00 EDT, [id number], [facility] fill upon patient [...] Active [facility], [facility] care [facility] [phone] Confirmed Active Fatty infiltration of liver Confirmed [...] Nurse Member Role: Primary Care Nurse Name: Michael Steinberg MD Position: [facility] Physician - Primary Care Member Role: PCP Address: Address: [address] [place] [address]- [place] Name: Italia Ortega RN [facility] Rodriguez RN Position: [facility] RN Supv Member Role: Primary Care Nurse [...] Member Role: Primary Care Nurse Address: [facility] [place] [address]- [place] Name: Cassidy Masters RN Position: [facility] RN Member Role: Primary Care Nurse Name: Juancarlos Valente RN Position: [facility] Teacher Member Role: Primary Care Nurse Care Team Related Persons Name: SYLVIA BARBOSA Address: [address] [address] Name: GAGE HUNT Address: home [address] [place] [id number] Name: JOCELYN HUNT Address: home [address] [place] [address]
--- OUTSIDE RECORDS SUMMARY | 2024-05-24 04:41 | XMS_ITS | Continuity of Care Document ---
Author Organization [facility] Address [address] [place] [address] thi, [address] [place] [address]- Care Team Providers Care Neurobiologist Name Role Phone Alonzo Esposito MD Primary Care Physician [phone] Encounter [facility] [place] Date(s): 09/04/23 - 09/11/23 [facility] [address] [place] [address], [address] [place] [address]- Attending Physician: Clint Puga MD Referring Physician: [...] influenza virus vaccine, inactivated 12/06/15 Give n [id number] 12y+ bivalent booster vax 11/03/22 Given SARS-CoV-2 mRNA (cnphtro-gpqr-fjqfz) vax 01/26/22 Given SARS-CoV-2 mRNA (ocqojta-djpo-icxux) vax 12/28/21 Given tetanus/diphtheria/pertussis, acel(Tdap) 03/29/19 Given tetanus/diphtheria/pertussis, acel(Tdap) 09/10/17 Given pneumococcal 23-valent vaccine 04/08/18 Recorded pneumococcal 23-valent vaccine 04/22/17 Recorded pneumococcal 23-valent vaccine 12/21/12 Given Medications aspirin 81 mg oral delayed release tablet 81 mg, By Mouth, Daily, # 30 tablet, Refills 0, Tot. Refills 0, Maintenance, 08/31/23 15:47:00 EST,Route to [facility]acy [facility]ically, [id number], Partial fill upon patient request if the prescription is for a schedule II opioid drug., 165, cm,... Start Date: 08/31/23 Status: Ordered atorvastatin 40 mg oral tablet 1 tablet = 40 mg, By Mouth, Daily, # 30 tablet, 5 Refills, Maintenance, 08/31/23 15:48:00 EST, Tablet, [id number], Partial fill upon patient request if the prescription is for a schedule II opioid drug., 165, cm, 08/31/23 14:45:00 EST, Height,... Start Date: 08/31/23 Stop Date: 02/27/24 Status: Ordered FLUoxetine 20 mg oral capsule [...] schedule II... Start Date: 08/14/23 Status: Ordered Medrol Dosepak 4 mg oral [...] 09/15/23 14:31:00 EST, 09/10/23 14:31:00 EST, Tablet, [facility]/pharmacy #[id number], Partial fill upon patient request if the prescription is for a schedule I... Start Date: 09/10/23 Stop Date: 09/15/23 Status: Ordered OxyCONTIN 15 mg oral tablet, extended release 1 tablet = 15 mg, By Mouth, Every 12 hours, dx: M54.5 MassPAT checked; appropriate, # 60 tablet, 0 Refills, Maintenance, 08/14/23 13:55:00 EDT, ER Tablet, [facility]/pharmacy #[id number], Partial fill upon patient request if the prescription is for a schedule II... Start Date: 08/14/23 Stop Date: 09/13/23 Status: Ordered propranolol 20 mg oral tablet 2, tablet, By Mouth, 2 times a day, # 120 tablet, Refills 5, Maintenance, 04/19/23 20:48:00 EDT, Route to Pharmacy Electronically, [facility] STORE [id number], 165, cm, 04/09/23 9:47:00 EDT, Height, 89.1, [...] Gm, 11 Refills, Maintenance, 02/22/23 8:17:00 EDT, [facility]/pharmacy #[id number], 166, cm, 01/18/23 15:56:00 [...] Confirmed Active Health [facility], active care coordination PADMINI Nancy Esperanza [phone] Confirmed Active Fatty infiltration of liver Confirmed Active Tubular adenoma of colon Confirmed Active 1history of this with surgical correction Vital Signs Most recent to oldest [Reference Range]: 1 Height 165 cm (09/04/23 1:05 PM) Weight 93 kg (09/04/23 1:05 PM) Body Mass Index [18.5-24.99 kg/m2] 34.16 kg/m2 *>HHI* (09/04/23 1:05 PM) Social History Social History Type Response Smoking Status Former smoker; Other : Quit 2014; entered on: 09/10/17 Sex Male Patient Care team information Care Team Personnel [...] RN Position: [facility] RN Suptasha Member Role: Primary [...] Primary Care Member Role: PCP Address: Address: [address] [place] [address]- Name: Doroteo Morrow RN Position: [facility] RN Member Role: Primary Care Nurse Address: Address: [address] [place] [address]- Name: Sonam GOLDEN, Cassidy Trivedi Position: [facility] RN Member Role: Primary Care Nurse Name: Juancarlos Valente RN Position: [facility] Delinquent Tax Collector Member Role: Primary Care Nurse Name: Tran Wiseman RN Position: [facility] RN Member Role: Primary Care Nurse Care Team Related Persons Name: SYLVIA BARBOSA Address: home [address] [place] [id number] Name: GAGE HUNT Address: [address] [place] [address] Name: JOCELYN HUTN Address: home [address] [place] [address]
--- OUTSIDE RECORDS SUMMARY | 2024-05-24 04:41 | XMS_ITS | Continuity of Care Document ---
Author Organization [facility] Address [address] [place] [address]- Care Team Providers Care Service Counselor Name Role Phone Alonzo Esposito MD Primary Care Physician Encounter [facility] [place] Date(s): 09/13/23 - 10/13/[address] [address] Allergies, Adverse Reactions, Alerts Substance Reaction Severity [...] influenza virus vaccine, inactivated 12/06/15 Give n [id number] 12y+ bivalent booster vax 11/03/22 Given SARS-CoV-2 mRNA (zaamqnm-pdzi-lsnwg) vax 01/26/22 Given SARS-CoV-2 mRNA (iolhxrh-ohlt-nihbc) vax 12/28/21 Given tetanus/diphtheria/pertussis, acel(Tdap) 03/29/19 Given tetanus/diphtheria/pertussis, acel(Tdap) 09/10/17 Given pneumococcal 23-valent vaccine 04/08/18 Recorded pneumococcal 23-valent vaccine 04/22/17 Recorded pneumococcal 23-valent vaccine 12/21/12 Given Medications aspirin 81 mg oral delayed release tablet 81 mg, By Mouth, Daily, # 30 tablet, Refills 11, Tot. Refills 11, Maintenance, 09/12/23 17:42:00 EST, Route to Pharmacy Electronically, [facility] [id number], For blister pack please., 166, cm, 09/12/23 13:54:00 EST, Height, 9... Start Date: 09/12/23 Status: Ordered atorvastatin 40 mg oral tablet 1 tablet = 40 mg, By Mouth, Daily, # 30 tablet, 11 Refills, Maintenance, 09/12/23 17:42:00 EST, Tablet, [place], [place] - [id number], For blister pack please., 166, cm, 09/12/23 13:54:00 EST, Height, 93, kg, 09/06/23 16:15:00 EST, DrNicholas. Start Date: 09/12/23 Stop Date: 09/06/24 Status: Ordered chlorhexidine topical 0.12% liquid See Instructions, SWISH AND SPIT DO NOT SWALLOW. USE 3-4 X/ DAY, # 473 mL, 0 Refills, Maintenance, 09/25/23 16:56:00 EST, [facility] STORE [id number], 30, SWISH AND SPIT DO NOT SWALLOW. USE 3-4 X/ DAY, 166, cm, 09/21/23 11:32:00 EST, Height, 93, kg, 09/14/23 12:3... Start Date: 09/25/23 Status: Ordered docusate sodium 100 mg oral tablet 1 tablet = 100 mg, By Mouth, 2 times a day, PRN for constipation, # 60 tablet, 0 Refills, Maintenance, 09/27/23 13:27:00 EST, Tablet, [facility]/pharmacy #[id number], Partial fill upon patient request if the prescription is for a schedule II opioid drug., 166, cm,... Start Date: 09/27/23 Status: Ordered FLUoxetine 20 mg oral capsule 60 mg, 3, capsule, By Mouth, Daily, TAKE 3 CAPSULES BY MOUTH EVERY DAY IN THE MORNING, # 90 capsule, Refills 11, Tot. Refills 11, Maintenance, 09/12/23 17:44:00 EST, Route to Pharmacy Electronically,[facility] [id number], for... Start Date: 09/12/23 Status: Ordered gabapentin 300 mg oral capsule 300 mg, 1, capsule, By Mouth, 2 times a day, # 60 capsule, Refills 11, Tot. Refills 11, Maintenance, 09/12/23 17:42:00 EST, Route to Pharmacy Electronically, [facility] [id number], For blister pack please., 166, cm, 09/12/23 1... Start Date: 09/12/23 Status: Ordered nitroglycerin 0.4 mg sublingual tablet 1 tablet = 0.4 mg, Sublingual, Every 5 minutes, PRN Chest Pain, # 100 tablet, 0 Refills, Maintenance, 06/08/23 16:23:00 EDT, [id number] fill upon patient request if the prescription is for a schedule II opioid drug., 165, cm,... Start Date: 06/08/23 Status: Ordered oxyCODONE 15 mg oral tablet 1 tablet = 15 mg, By Mouth, Every 6 hours, PRN Pain , Severe, controlled substance agreement. adjusting dose back to previous dose., # 120 tablet, 0 Refills, Maintenance, 09/24/23 12:55:00 EST, Tablet, [id number] Partial fill upon patient req... Start Date: 09/24/23 Status: Ordered propranolol 20 mg oral tablet 2, tablet, By Mouth, 2 times a day, # 120 tablet, Refills 11, Tot. Refills , Maintenance, 09/12/23 17:42:00 EST, Route to Pharmacy Electronically, [facility] [id number], For blister pack please., 166, cm, 09/12/23 13:54:00 E... Start Date: 09/12/23 Status: Ordered risperiDONE 2 mg oral tablet 4 mg, 2, tablet, By Mouth, Daily at bedtime, Rx'd by psychiatry, # 60 tablet, Refills 11, Tot. Refills , Maintenance, 09/12/23 17:44:00 EST, Route to Pharmacy Electronically, [facility] [id number], for blister pack, 166, cm... Start Date: 09/12/23 Status: Ordered tiZANidine 2 mg oral tablet 2 mg, 1, tablet, By Mouth, 3 times a day, Can take two tablets at bedtime. Do not take at the same time as oxycodone., # 90 tablet, Refills 0, Tot. Refills 0, Maintenance, 09/26/23 10:38:00 EST, Route to Pharmacy Electronically, [facility]/pharmacy #[id number], Sp... Start Date: 09/26/23 Status: Ordered traZODone 100 mg oral tablet 50 mg, 0.5, tablet, By Mouth, Daily at bedtime, # 15 tablet, Refills 11, Tot. Refills 11, Maintenance, 09/12/23 17:44:00 EST, Route to Pharmacy Electronically, [facility] [place] [place] - [id number], Partial fill upon patient request if the pr... Start Date: 09/12/23 Status: Ordered Ventolin HFA 108 mcg/inh inhalation aerosol with adapter 2 puffs, Inhalation, 4 times a day, PRN NEEDED FOR WHEEZING, # 18 Gm, 11 Refills, Maintenance, 02/22/23 8:17:00 EDT, [facility]/pharmacy #[id number], 166, cm, 01/18/23 15:56:00 EDT, [...] Confirmed Active Health alf, active care coordination PADMINI Nancy [facility] [phone] Confirmed Active Fatty infiltration of liver Confirmed [...] Nurse Name: Mallory Lugo RN Position: [facility] RN Member Role: Primary Care Nurse Name: Sima RNCarmen Position: [facility] ED RN W/OE and Tasks Member Role: Primary Care Nurse Name: Dacia Evangelista RN Position: [facility] RN Member Role: Primary Care Nurse Name: Tracey Linares RN Position: [facility] AMB Nurse Member Role: Primary Care Nurse Name: Italia Ortega RN Position: [facility] RN Member Role: Primary Care Nurse Name: Catalina He RN Position: [facility] AMB Nurse Member Role: Primary Care Nurse Name: Jessica Lantigua RN Position: [facility] SN RN Member Role: Primary Care Nurse Name: Catalina Pack RN Position: [facility] SN RN Member Role: Primary Care Nurse Name: Clifford Gerber RN Position: [facility] RN Member Role: Primary Care Nurse Name: Doris Butler RN Position: [facility] RN Member Role: Primary Care Nurse Name: Aziza Poole RN Position: [facility] RN Member Role: Primary Care Nurse Name: Monet Miller RN Position: [facility] RN Member Role: Primary Care Nurse Name: Kathreyn Wu RN Position: [facility] SN RN Member Role: Primary Care Nurse Name: Doris Dee RN Position: [facility] RN Member Role: Primary Care Nurse Name: Janae Soto RN Position: [facility] RN Member Role: Primary Care Nurse Name: Daphney Echols LPN Position: [facility] RN Member Role: Primary Care Nurse Name: Nini Odonnell RN Position: [facility] RN Member Role: Primary Care Nurse Name: Jennifer Thakkar RN Position: [facility] RN Member Role: Primary Care Nurse Name: Hyun Ochoa RN Position: [facility] RN Member Role: Primary Care Nurse Name: Yazmin Lay RN Position: [facility] RN Member Role: Primary Care Nurse Name: Nancy Magana RN Position: [facility] RN Member Role: Primary Care Nurse Name: Ranjana Zavala RN Position: [facility] RN Member Role: Primary Care Nurse Name: Melvi Carter RN Position: [facility] OB RN Member Role: Primary Care Nurse Name: Jackson Rosen RN Position: [facility] RN Member Role: Primary Care Nurse Name: Clarissa Rodriguez RN Position: [facility] RN Supv Member Role: Primary Care Nurse Name: Ophelia Marie RN Position: [facility] RN Member Role: Primary Care Nurse Name: Nolvia Mendes RN Position: [facility] RN Member Role: Primary Care Nurse Name: Tyrone Germain RN Position: [facility] RN Member Role: Primary Care Nurse Name: Adi Rees RN Position: [facility] RN Member Role: Primary Care Nurse Name: Orlando Mcallister RN Position: [facility] RN Member Role: Primary Care Nurse Name: Alonzo Esposito MD Position: [facility] Physician - Primary Care Member Role: PCP Address: Address: [address] [place] [address]- [place] Name: Doroteo Morrow RN Position: [facility] RN Member Role: Primary Care Nurse Address: Address: [address] [place] [address]- Name: Cassidy Masters RN Position: [facility] RN Member Role: Primary Care Nurse Name: Juancarlos Valente RN Position: [facility] Asphalt Spreader Operator Member Role: Primary Care Nurse Name: Tran Wiseman RN Position: [facility] RN Member Role: Primary Care Nurse Care Team Related Persons Name: SYLVIA BARBOSA Address: home [address] [place] [address] Name: GAGE HUNT Address: home [address] [place] [id number] Name: JOCELYN HUNT Address: home [address] [place] [address]
--- OUTSIDE RECORDS SUMMARY | 2024-05-24 04:41 | XMS_ITS | Continuity of Care Document ---
Author Organization [facility] Address [address] [place] [address] Donald n[address], [address] [place] [address]- Care Team Providers Care Diagnostic Medical Sonographer Name Role Phone Vaibhav RAWLS, Alonzo Primary Care Physician [phone] Encounter [facility] Date(s): 02/07/24 - 03/19/24 [facility] [address] [place] [address] Drive [address] [place], [place] [address] Attending Physician: Clint Puga MD Allergies, Adverse Reactions, [...] influenza virus vaccine, inactivated 12/06/15 Give n [id number] 12y+ bivalent booster vax 11/03/22 Given SARS-CoV-2 mRNA ([id number]-yzhv-kqnpq) vax 01/26/22 Given SARS-CoV-2 mRNA (mxcxufq-xgim-ivedq) vax 12/28/21 Given pneumococcal 23-valent vaccine 04/08/18 Recorded pneumococcal 23-valent vaccine 04/22/17 Recorded pneumococcal 23-valent vaccine 12/21/12 Given 1Result Comment: [facility] acetaminophen 325 mg oral tablet 650 mg, 2, tablet, By Mouth, Every 6 hours, PRN, # 120 tablet, Refills 0, Tot. Refills 0, Maintenance, for pain, 02/27/24 18:13:00 EDT, Route to Pharmacy Electronically, [facility]/pharmacy #[id number], Partial fill upon patient request if the prescription is for... Start Date: 02/27/24 Status: Ordered amoxicillin 500 mg oral capsule 4 capsule = 2,000 mg, By Mouth, Once, given 1 hour prior to the dental procedure, # 4 capsule, 0 Refills, Soft Stop, 03/18/24 8:57:00 EDT, Capsule, [facility]/pharmacy #[id number], Partial fill upon patient request if the prescription is for a schedule II opioid d... Start Date: 03/18/24 Status: Ordered aspirin 81 mg oral delayed release tablet 81 mg, By Mouth, Daily, # 30 tablet, Refills 11, Tot. Refills 11, Maintenance, 09/12/23 17:42:00 EST, Route to Pharmacy Electronically, [place], [place] - [id number], For blister pack please., 166, cm, 09/12/23 13:54:00 EST, Height, 9... Start Date: 09/12/23 Status: Ordered atorvastatin 40 mg oral tablet 1 tablet = 40 mg, By Mouth, Daily, # 30 tablet, 11 Refills, Maintenance, 09/12/23 17:42:00 EST, Tablet, [place], [place] - [id number], For blister pack please., 166, cm, 09/12/23 13:54:00 EST, Height, 93, kg, 09/06/23 16:15:00 EST, Start Date: 09/12/23 Stop Date: 09/06/24 Status: Ordered diclofenac 1% topical gel 1 application, Topically, 4 times a day, PRN Pain , Mild, not to exceed 16 grams/day/single joint of lower extremities, # 100 Gm, 3 Refills, Maintenance, 11/30/23 9:43:00 EST, Gel, [facility]/pharmacy #[id number], Partial fill upon patient request if the prescript... Start Date: 11/30/23 Status: Ordered FLUoxetine 20 mg oral capsule 60 mg, 3, capsule, By Mouth, Daily, TAKE 3 CAPSULES BY MOUTH EVERY DAY IN THE MORNING, # 90 capsule, Refills 11, Tot. Refills 11, Maintenance, 09/12/23 17:44:00 EST, Route to Pharmacy Electronically,[place], [place] - [id number], for... Start Date: 09/12/23 Status: Ordered gabapentin 800 mg oral tablet 1 tablet = 800 mg, By Mouth, 3 times a day, # 90 tablet, 3 Refills, Maintenance, 02/29/24 9:58:00 EDT, Tablet, [facility]/pharmacy #[id number], Partial fill [...] 0 Refills, Maintenance, 02/29/24 10:11:00 EDT, Tablet, [facility]/pharmacy #[id number], Partial fill upon patient request if the prescription is for a sche... Start Date: 02/29/24 Status: Ordered risperiDONE 2 mg oral tablet 4 mg, 2, tablet, By Mouth, Daily at bedtime, Rx'd by psychiatry, # 60 tablet, Refills 11, Tot. Refills 11, Maintenance, 09/12/23 17:44:00 EST, Route to Pharmacy Electronically, [facility] [id number], for blister pack, 166, cm... Start Date: 09/12/23 Status: Ordered tiZANidine 2 mg oral tablet 4 mg, 2, tablet, By Mouth, Every 8 hours, # 180 tablet, Refills 3, Tot. Refills 3, Maintenance, 02/29/24 9:59:00 EDT, Route to Pharmacy Electronically, [facility]/pharmacy #[id number], Partial fill upon patient request if the prescription is for a schedule II opio... Start Date: 02/29/24 Status: Ordered traZODone 100 mg oral tablet 50 mg, 0.5, tablet, By Mouth, Daily at bedtime, # 15 tablet, Refills 11, Tot. Refills 11, Maintenance, 09/12/23 17:44:00 EST, Route to Pharmacy Electronically, [place], [place] - [id number], Partial fill upon patient request if the pr... Start Date: 09/12/23 Status: Ordered Ventolin HFA 108 mcg/inh inhalation aerosol with adapter 2 puffs, Inhalation, 4 times a day, PRN NEEDED FOR WHEEZING, # 18 Gm, 11 Refills, Maintenance, 02/22/23 8:17:00 EDT, [facility]/pharmacy #[id number], 166, cm, 01/18/23 15:56:00 EDT, [...] nursing home, active care coordination Netta Mata [phone] Confirmed Active Cervical stenosis of spine Confirmed [...] Care Nurse Name: Macarena Lewis RN Position: [facility] RN Member Role: Primary Care Nurse Name: Mallory Lugo RN Position: [facility] RN Member Role: Primary Care Nurse Name: Carmen Gao RN Position: [facility] ED RN W/OE and Tasks Member Role: Primary Care Nurse Name: Dacia Evangelista RN Position: [facility] RN Member Role: Primary Care Nurse Name: Tracey Linares RN Position: [facility] AMB Nurse Member Role: Primary Care Nurse Name: Italia Ortega RN Position: [facility] RN Member Role: Primary Care Nurse Name: Catalina He RN Position: [facility] AMB Nurse Member Role: Primary Care Nurse Name: Cortez Golden RN Position: [facility] RN Member Role: Primary Care Nurse Name: Jessica Lantigua RN Position: [facility] SN RN Member Role: Primary Care Nurse Name: Catalina Pack RN Position: [facility] SN RN Member Role: Primary Care Nurse Name: Clifford Gerber RN Position: [facility] RN Member Role: Primary Care Nurse Name: Doris Butler RN Position: [facility] RN Member Role: Primary Care Nurse Name: Aziza Poole RN Position: [facility] RN Member Role: Primary Care Nurse Name: Katheryn Wu RN Position: [facility] SN RN Member Role: Primary Care Nurse Name: Doris Dee RN Position: [facility] RN Member Role: Primary Care Nurse Name: Janae Soto RN Position: [facility] RN Member Role: Primary Care Nurse Name: Daphney Echols LPN Position: [facility] RN Member Role: Primary Care Nurse Name: Nini Odonnell RN Position: [facility] RN Member Role: Primary Care Nurse Name: Jennifer Thakkar RN Position: [facility] RN Member Role: Primary Care Nurse Name: Hyun Ochoa RN Position: [facility] RN Member Role: Primary Care Nurse Name: Yazmin Lay RN Position: [facility] RN Member Role: Primary Care Nurse Name: Ranjana Zavala RN Position: [facility] RN Member Role: Primary Care Nurse Name: Melvi Carter RN Position: [facility] OB RN Member Role: Primary Care Nurse Name: Jackson Rosen RN Position: [facility] RN Member Role: Primary Care Nurse Name: Clarissa Rodriguez RN Position: [facility] RN Supv Member Role: Primary Care Nurse Name: Ophelia Marie RN Position: [facility] SN RN Member Role: Primary Care Nurse Name: Nolvia Mendes RN Position: [facility] RN Member Role: Primary Care Nurse Name: Tyrone Germain RN Position: [facility] RN Member Role: Primary Care Nurse Name: Adi Rees RN Position: [facility] RN Member Role: Primary Care Nurse Name: Alonzo Esposito MD Position: [facility] Physician - Primary Care Member Role: PCP Address: Address: [address] [place] [address]- Name: Cassidy Masters RN Position: [facility] RN Member Role: Primary Care Nurse Name: Juancarlos Valente RN Position: [facility] Air Battle Manager Member Role: Primary Care Nurse Name: Tran Wiseman RN Position: [facility] RN Member Role: Primary Care Nurse Care Team Related Persons Name: SYLVIA BARBOSA Address: home [address] [place] [id number] Name: GAGE HUNT Address: [address] [place] [address] Name: JOCELYN HUNT Address: [address] [place] [address]
--- OUTSIDE RECORDS SUMMARY | 2024-05-24 04:41 | XMS_ITS | Continuity of Care Document ---
Author Organization [facility] Address [address] [place] [address]- Care Team Providers Care Record Label Intern Name Role Phone Alonzo Esposito DO Primary Care Physician Encounter [facility] Date(s): 04/10/23 - 05/10/[address] [address]- Allergies, Adverse Reactions, Alerts Substance Reaction Severity Status lisinopril Angioedema Active Shrimp Active Immunizations Given and Recorded Vaccine Date Status Refusal Reason [id number] 12y+ bivalent booster vax 11/03/22 Given influenza virus vaccine, inactivated 11/03/22 Give n influenza virus vaccine, inactivated 02/15/22 Give n influenza virus vaccine, inactivated 09/01/20 Give n influenza virus vaccine, inactivated 09/15/19 Give n influenza virus vaccine, inactivated 11/19/18 Give n influenza virus vaccine, inactivated 09/10/17 Give n influenza virus vaccine, inactivated 12/06/15 Give n SARS-CoV-2 mRNA (euoiruw-lpds-xqlxz) vax 01/26/22 Given SARS-CoV-2 mRNA (eehoecz-fuej-czjlu) vax 12/28/21 Given tetanus/diphtheria/pertussis, acel(Tdap) 03/29/19 Given tetanus/diphtheria/pertussis, acel(Tdap) 09/10/17 Given pneumococcal 23-valent vaccine 04/08/18 Recorded pneumococcal 23-valent vaccine 04/22/17 Recorded pneumococcal 23-valent vaccine 12/21/12 Given Medications acetaminophen-oxycodone 325 mg-10 mg oral tablet 1 tablet, By Mouth, Daily at bedtime, for 30 days, mass pat verified, # 30 tablet, 0 Refills, Acute05/19/23 21:13:00 EDT, 07/06/23 21:13:00 EDT, [facility]/pharmacy #[id number], Partial fill upon patient requestif [...] 03/15/23 0:06:00 EDT, Route to Pharmacy Electronically, [facility]/pharmacy #[id number], Partial fill upon patient request if the prescription is for a schedule II opioid drug.... Start Date: 03/15/23 Status: Ordered atorvastatin 40 mg oral tablet 1 tablet, By Mouth, Daily, # 90 tablet, 1 Refills, Maintenance, 03/01/23 12:46:00 EDT, [id number], 166, cm, 01/18/23 15:56:00 EDT, Height, 91, [...] tablet, 1 Refills, Maintenance, 02/22/23 8:17:00 EDT, [facility]/pharmacy #[id number], 166, cm, 01/18/23 15:56:00 EDT, [...] 3 Refills, Maintenance, 04/30/23 14:32:00 EDT, Gel, [facility]/pharmacy #[id number], Partial fill upon [...] tablet, 11 Refills, Maintenance, 06/15/22 17:40:00EDT, Tablet, [facility]/pharmacy #[id number], Partial fill upon patient request if the prescription is for a schedule II opioid drug., 165, cm, 06/15/22 14:29:00 ED... Start Date: 06/15/22 Status: Ordered ibuprofen 600 mg oral tablet 600 mg, 1, tablet, By Mouth, 3 times a day, # 90 tablet, Refills 0, Tot. Refills 0, Maintenance, 09/06/22 21:10:00 EST, Route to Pharmacy Electronically, [facility]/pharmacy #[id number], Partial fill upon patientrequest if [...] Refills, Maintenance, 07/20/22 15:26:00 EDT, [id number], 10, APPLY 1 PATCH DAILY NEEDED FOR [...] Refills, Maintenance, 03/03/23 15:23:00 EDT, [id number], 166, cm, 01/18/23 15:56:00 EDT, Height, 91, kg, 01/18/23 15:56:00 EDT, Dry Weight Start Date: 03/03/23 Status: Ordered OxyCONTIN 15 mg oral tablet, extended release 1 tablet = 15 mg, By Mouth, Every 12 hours, MassPAT checked dx: M54.5 on agreement do not fill until 03/24/23, # 60 tablet, 0 Refills, Maintenance, 04/11/23 12:33:00 EDT, ER Tablet, [facility]/pharmacy #[id number], Partial fill upon patient request if the [...] 04/19/23 20:48:00 EDT, Route to Pharmacy Electronically, [id number], 165, cm, 04/09/23 9:47:00 EDT, Height, 89.1, [...] EST, Supply Start Date: 12/12/22 Status: Ordered Finishing Machine Operator Finishing Machine Operator, See Instructions, # 1 each, [...] 03/17/23 20:06:00 EDT, Route to Pharmacy Electronically, [facility]/pharmacy #[id number], Partial fill upon patient request if the prescription is for... Start Date: 03/17/23 Status: Ordered Ventolin HFA 108 mcg/inh inhalation aerosol with adapter 2 puffs, Inhalation, 4 times a day, PRN NEEDED FOR WHEEZING, # 18 Gm, 11 Refills, Maintenance, 02/22/23 8:17:00 EDT, [facility]/pharmacy #[id number], 166, cm, 01/18/23 15:56:00 EDT, [...] [facility], active care coordination Netta Mata [phone] Confirmed Active Fatty infiltration of liver Confirmed [...] Care Nurse Name: Alonzo Esposito DO Position: [facility] Resident Member Role: PCP Address: Address: [place] [address]- Name: Doroteo Morrow RN Position: [facility] RN Member Role: Primary Care Nurse Address: Address: [address] [place] [address]- Name: Cassidy Masters RN Position: [facility] RN Member Role: Primary Care Nurse Name: Juancarlos Valente RN Position: [facility] Mattress Weaver Member Role: Primary Care Nurse Care Team Related Persons Name: SYLVIA BARBOSA Address: [address] [place] [address] Name: GAGE HUNT Address: [address] [place] [address] Name: JOCELYN HUNT Address: home [address] [place] [address]
--- OUTSIDE RECORDS SUMMARY | 2024-05-24 04:42 | XMS_ITS | Continuity of Care Document ---
Author Organization [facility] Address [address] [place] [address]- Care Team Providers Care Heading Machine Operator Name Role Phone Dawna Hernandez MD Primary Care Physician [phone] Encounter [facility] Date(s): 02/21/23 - 03/23/[address] [address]- Allergies, Adverse Reactions, Alerts Substance Reaction Severity Status lisinopril Angioedema Active Shrimp Active Immunizations Given and Recorded Vaccine Date Status Refusal Reason [id number] 12y+ bivalent booster vax 11/03/22 Given influenza virus vaccine, inactivated 11/03/22 Give n influenza virus vaccine, inactivated 02/15/22 Give n influenza virus vaccine, inactivated 09/01/20 Give n influenza virus vaccine, inactivated 09/15/19 Give n influenza virus vaccine, inactivated 11/19/18 Give n influenza virus vaccine, inactivated 09/10/17 Give n influenza virus vaccine, inactivated 12/06/15 Give n SARS-CoV-2 mRNA (qhjvqnr-gfbr-nercr) vax 01/26/22 Given SARS-CoV-2 mRNA (spqhawm-ymlc-dwkfk) vax 12/28/21 Given tetanus/diphtheria/pertussis, acel(Tdap) 03/29/19 Given [...] 03/15/23 0:06:00 EDT, Route to Pharmacy Electronically, [facility]/pharmacy #[id number], Partial fill upon patient request if the prescription is for a schedule II opioid drug.... Start Date: 03/15/23 Status: Ordered atorvastatin 40 mg oral tablet 1 tablet, By Mouth, Daily, # 90 tablet, 1 Refills, Maintenance, 03/01/23 12:46:00 EDT, [id number], 166, cm, 01/18/23 15:56:00 EDT, Height, 91, [...] tablet, 1 Refills, Maintenance, 02/22/23 8:17:00 EDT, [facility]/pharmacy #[id number], 166, cm, 01/18/23 [...] Refills, Maintenance, 03/17/23 20:07:00 EDT, Gel, [id number], Partial fill upon patient request if the [...] tablet, 11 Refills, Maintenance, 06/15/22 17:40:00EDT, Tablet, [facility]/pharmacy #[id number], Partial fill upon patient request if the prescription is for a schedule II opioid drug., 165, cm, 06/15/22 14:29:00 ED... Start Date: 06/15/22 Status: Ordered ibuprofen 600 mg oral tablet 600 mg, 1, tablet, By Mouth, 3 times a day, # 90 tablet, Refills 0, Tot. Refills 0, Maintenance, 09/06/22 21:10:00 EST, Route to Pharmacy Electronically, [facility]/pharmacy #[id number], Partial fill upon [...] 0 Refills, Maintenance, 03/17/23 20:07:00 EDT, Film, [facility]/pharmacy #[id number], Partial fill upon patient request if the prescription is for a schedule II opioid drug., 1 patch Top... Start Date: 03/17/23 Status: Ordered lidocaine 5% topical film 1 patch, Topically, Daily, PRN NEEDED FOR MODERATE PAIN, REMOVE AFTER 12 HOURS (12 HRS ON, 12 HRS OFF), # 10 patch, 0 Refills, Maintenance, 07/20/22 15:26:00 EDT, [facility] STORE [id number], 10, APPLY 1 PATCH DAILY NEEDED FOR MODERATE PAIN..REMOVE AFTER 12... Start Date: 07/20/22 Status: Ordered Medrol Dosepak 4 mg oral tablet 1 pack/packet, By Mouth, Daily, for 6 days, as directed on package labeling, # 21 tablet, 5 Refills, Acute 04/22/23 20:03:00 EDT, 03/17/23 20:03:00 EDT, Tablet, [facility]/pharmacy #[id number], Partial fill upon patient request if the prescription is for a schedul... Start Date: 03/17/23 Stop Date: 04/22/23 Status: Ordered Motrin IB 200 mg oral tablet 2 tablet = 400 mg, By Mouth, Every 6 hours, PRN for pain, # 120 tablet, 0 Refills, Maintenance, 03/17/23 20:06:00 EDT, Tablet, [facility]/pharmacy #[id number], Partial fill upon patient request if the prescription is for a schedule II opioid drug., 165, cm, ... Start Date: 03/17/23 Status: Ordered nitroglycerin 0.4 mg sublingual tablet 1 tablet = 0.4 mg, Sublingual, Every 5 minutes, PRN Chest Pain, # 100 tablet, 0 Refills, Maintenance, 11/06/22 13:52:00 EST, Tablet, [facility]/pharmacy #[id number], Partial fill upon patient request if the prescription is for a schedule II opioid drug., 175, cm,... Start Date: 11/06/22 Status: Ordered omeprazole 20 mg oral enteric coated capsule 1 capsule, By Mouth, Daily, # 30 capsule, 5 Refills, Maintenance, 03/03/23 15:23:00 EDT, [facility] 47933, 166, cm, 01/18/23 15:56:00 EDT, Height, 91, kg, 01/18/23 15:56:00 EDT, Dry Weight Start Date: 03/03/23 Status: Ordered OxyCONTIN 15 mg oral tablet, extended release 1 tablet = 15 mg, By Mouth, Every 12 hours, MassPAT checked dx: M54.5 on agreement do not fill until 03/24/23, # 60 tablet, 0 Refills, Maintenance, 03/21/23 21:24:00 EDT, ER Tablet, [facility]/pharmacy #[id number], Partial fill upon [...] tablet, Refills 5, Route to Pharmacy Electronically, [id number], 166, cm, 12/28/21 10:33:00 EDT, Height, 91.9, [...] with hygeine dx: M54.5 Wt: 88.2 kg SAMITA: 99, 12/12/22 12:30:00 EST, Supply Start Date: 12/12/22 Status: Ordered Warehouse Person Warehouse Person, See Instructions, # 1 each, Refills 0, [...] 20:06:00 EDT, Route to Pharmacy Electronically, [facility]/pharmacy #[id number], Partial fill upon patient request if the prescription is for... Start Date: 03/17/23 Status: Ordered Ventolin HFA 108 mcg/inh inhalation aerosol with adapter 2 puffs, Inhalation, 4 times a day, PRN NEEDED FOR WHEEZING, # 18 Gm, 11 Refills, Maintenance, 02/22/23 8:17:00 EDT, [facility]/pharmacy #[id number], 166, cm, 01/18/23 [...] Health shelter, active care coordination Netta Nancy Esperanza [phone] Confirmed Active Fatty infiltration of liver Confirmed Active Tubular adenoma of colon Confirmed Active 1history of this with surgical correction Social History Social History Type Response Smoking Status Former smoker; Other : Quit 2014; entered on: 09/10/17 Sex Patient Care team information Care Team Personnel Name: Macarena Lewis RN [facility] Member Role: Primary Care Nurse Name: Italia Otrega RN Position: S RN Member Role: Primary Care Nurse Name: Catalina He RN Position: [facility] AMB Nurse Member Role: Primary Care Nurse Name: Cortez Golden RN Position: [facility] RN Member Role: Primary Care Nurse Name: Jessica Lantigua RN Position: [facility] SN RN Member Role: Primary Care Nurse Name: Catalina Pack RN Position: [facility] SN RN Member Role: Primary Care Nurse Name: Clifford Gerber RN Position: [facility] RN Member Role: Primary Care Nurse Name: Peter Monahan RN Position: [facility] RN Member [...] Care Nurse Name: Nancy Magana RN Position: [facility] RN Member Role: Primary Care Nurse Name: Ranjana Zavala RN Position: [facility] RN Member Role: Primary Care Nurse Name: Melvi Carter RN Position: [facility] OB RN Member Role: Primary Care Nurse Name: Jackson Rosen RN Position: [facility] RN Member Role: Primary Care Nurse Name: Clarissa Rodriguez RN Position: [facility] RN Vikram Member Role: Primary Care Nurse Name: Ophelia Marie RN Position: [facility] RN Member Role: Primary Care Nurse Name: Nolvia Mendes RN Position: [facility] RN Member Role: Primary Care Nurse Name: Adi Rees RN Position: [facility] RN Member Role: Primary Care Nurse Name: Doroteo Morrow RN Position: [facility] RN Member Role: Primary Care Nurse Address: Address: [address] [place] [id number]- [place] Name: Cassidy Masters RN Position: [facility] RN Member Role: Primary Care Nurse Name: Juancarlos Valente RN Position: [facility] Hospital Building Custodian Member Role: Primary Care Nurse Name: Dawna Hernandez MD Position: [facility] Physician - Primary Care Member Role: PCP Address: Address: [address] [place] [id number]- [place] Care Team Related Persons Name: SYLVIA BARBOSA Address: home [address] [place] [address] Name: GAGE HUNT Address: [address] [address] Name: JOCELYN HUNT Address: [address] [address]
--- OUTSIDE RECORDS SUMMARY | 2024-05-24 04:42 | XMS_ITS | Continuity of Care Document ---
Author Organization [facility] ter Address [address] [place] [address]- Care Team Providers Care Interpersonal Communications Professor Name Role Phone Dawna Hernandez MD Primary Care Physician Encounter [facility] Date(s): 11/07/22 - 11/07/[address] [address]- Encounter Diagnosis Back pain(Final) - 11/07/22 Discharge Disposition: A-D/C Home Attending Physician: Amauri Patterson MD Admitting Physician: Amauri Patterson MD Referring Physician: Not on Staff, Referring MD Allergies, Adverse Reactions, Alerts Substance Reaction Severity Status lisinopril Angioedema Active Shrimp Active Immunizations Given and Recorded Vaccine Date Status Refusal Reason [id number] 12y+ bivalent booster vax 11/03/22 Given influenza virus vaccine, inactivated 11/03/22 Give n influenza virus vaccine, inactivated 02/15/22 Give n influenza virus vaccine, inactivated 09/01/20 Give n influenza virus vaccine, inactivated 09/15/19 Give n influenza virus vaccine, inactivated 11/19/18 Give n influenza virus vaccine, inactivated 09/10/17 Give n influenza virus vaccine, inactivated 12/06/15 Give n SARS-CoV-2 mRNA (rcnzwoc-tbao-taykl) vax 01/26/22 Given SARS-CoV-2 mRNA (dactlnx-lctz-lfycd) vax 12/28/21 Given tetanus/diphtheria/pertussis, acel(Tdap) 03/29/19 Given tetanus/diphtheria/pertussis, acel(Tdap) 09/10/17 Given pneumococcal 23-valent vaccine 04/08/18 Recorded pneumococcal 23-valent vaccine 04/22/17 Recorded pneumococcal 23-valent vaccine 12/21/12 Given Medications albuterol CFC free 90 mcg/inh inhalation aerosol 2, puffs, Inhalation, Every 6 hours, PRN, # 1 each, Refills 6, Tot. Refills 6, Maintenance, 08/07/22 17:48:00 EDT, Aerosol, Route to Pharmacy Electronically, [id number], [facility]/pharmacy #[id number], 165, cm, 08/02/22 5:50:00 EDT, Heig... [...] Maintenance, 05/11/22 14:22:00 EDT, Tablet, [facility]/pharmacy #[id number], [...] Refills, Maintenance, 04/05/22 7:53:00 EDT, [facility]/pharmacy #[id number], 165, cm, 02/15/22 10:35:00 EDT, Height, [...] of... Start Date: 09/10/17 Status: Ordered cyclobenzaprine 10 mg oral tablet 10 mg, 1, tablet, By Mouth, 3 times a day, PRN, for 7 days, # 15 tablet, Refills 0, Tot. Refills 0,Acute 11/14/22 22:12:00 EST, for spasm, 11/07/22 22:12:00 EST, Route to Pharmacy Electronically, [facility]/pharmacy #[id number], Partial fill upon patient request... Start Date: 11/07/22 Stop Date: 11/14/22 Status: Ordered FLUoxetine 20 mg oral capsule [...] Refills, Maintenance, 06/15/22 17:40:00EDT, Tablet, [facility]pharmacy #[id number], [id number] Partial fill upon patientrequest if the [...] Refills, Maintenance, 07/20/22 15:26:00 EDT, [facility] STORE [id number], 10, APPLY 1 PATCH DAILY NEEDED FOR MODERATE PAIN..REMOVE AFTER 12... Start Date: 07/20/22 Status: Ordered Medrol Dosepak 4 mg oral tablet 1 pack/packet, By Mouth, Daily, for 6 days, as directed on package labeling, # 21 tablet, 0 Refills, Acute 11/13/22 22:14:00 EST, 11/07/22 22:14:00 EST, Tablet, [facility]/pharmacy #[id number], Partial fill upon patient request if the prescription is for a schedul... Start Date: 11/07/22 Stop Date: 11/13/22 Status: Ordered MorPHINE Immediate Release Tablet 15 mg, Tablet, By Mouth, Once, Routine, 11/07/22 20:00:00 EST, Stop date 11/07/22 20:00:00 EST Start Date: 11/07/22 Stop Date: 11/07/22 Status: Completed nitroglycerin 0.4 mg sublingual tablet 1 tablet = 0.4 mg, Sublingual, Every 5 minutes, PRN Chest Pain, # 100 tablet, 0 Refills, Maintenance, 11/06/22 13:52:00 EST, Tablet, [facility]/pharmacy #[id number], Partial fill upon patient request if the prescription is for a schedule II opioid drug., 175, cm,... Start Date: 11/06/22 Status: Ordered oxyCODONE 15 mg oral tablet 1 tablet = 15 mg, By Mouth, Every 6 hours, for 28 days, MassPAT checked dx: M54, # 112 tablet, 0 Refills, Acute 11/14/22 17:13:00 EST, 10/17/22 17:13:00 EST, [facility]/pharmacy #[id number], Partial [...] 5, Route to Pharmacy Electronically, [facility] STORE [id number], 166, cm, 12/28/21 10:33:00 EDT, Height, 91.9, [...] EDT, Supply Start Date: 01/29/20 Status: Ordered TENS unit TENS unit, See Instructions, # 1 each, Refills 0, Tot. Refills 0, Maintenance, to help with managing back pain dx: M54.5, 11/07/22 16:21:00 EST, Supply Start Date: 11/07/22 Status: Ordered Ventolin HFA 108 mcg/inh inhalation aerosol with adapter 2 puffs, Inhalation, 4 times a day, PRN for wheezing, # 8 Gm, 0 Refills, Maintenance, 10/17/22 17:13:00 EST, Aerosol, [facility]/pharmacy #[id number], Partial fill upon patient request if the [...] Health nursing home, active care coordination [facility]ADMIN[facility] [phone] Confirmed Active Fatty infiltration of liver Confirmed Active Tubular adenoma of colon Confirmed Active Results Radiology Reports * Exam Date Time Procedure Performing Provider Status 11/07/22 9:[address] Abdomen and Pelvi s W/O Contrast Stupak , [place]; Auth (Verified) Notes: (CT Abdomen and Pelvis W/O Contrast) Reason For Exam: Flank pain, kidney stone suspected;Other: RESULT: CT Abdomen and Pelvis W/O Contrast CT Abdomen and Pelvis W/O Contrast HX OF PRESENT ILLNESS: chronic lower back pain radiating to lower pelvic area, pt with burning sensation to bilat thighs, had incontinence episode on Sunday which is new for him, unable to urinate adequately.; Reason: Flank pain, kidney stone suspected; Clinical Question(s): Calculus; Right Side flank TECHNIQUE: Spiral CT through the abdomen and pelvis without IV contrast formatted in 3 planes. Thisstudy was performed without oral contrast. Weight- based protocol using automatic tube modulation was used to optimize exposure parameters. CTDIvol Body: 12.11 mGy, DLP Body: 656 mGy*cm. COMPARISON: CT abdomen pelvis dated 09/20/2022 FINDINGS: Electronic Commerce Specialist View Findings, Lines and Tubes: None. Visualized Chest: Mild bibasilar atelectasis. Minimally visualized lung bases are otherwise clear. No pleural effusion. Diaphragm: Unchanged diaphragmatic calcifications near the level of the GE junction. Liver: Normal. Gallbladder: Mildly distended. No evidence of pericholecystic fluid or wall thickening to suggest acute cholecystitis. Bile ducts: No biliary ductal dilation. Spleen: Punctate calcification, likely sequela of prior granulomatous disease. Pancreas: Normal. Adrenal glands: Normal. Kidneys and ureters: No hydronephrosis or noncontrast evidence of suspicious masses. Excreted contrast from earlier MRI could obscure small calculi, though none are visualized. Bladder: Normal. Reproductive organs: Unremarkable. Stomach, small bowel, and large bowel: Unremarkable stomach, small and large bowel. No evidence of obstruction or inflammation. Mild colonic diverticulosis without evidence of diverticulitis. Appendix: Normal. Peritoneum and retroperitoneum: No ascites or pneumoperitoneum. No omental or mesenteric lesions. Lymph nodes: No enlarged lymph nodes. Blood vessels: Normal. No aneurysm. Abdominal and pelvic wall: Unremarkable. Bones: No acute abnormality. IMPRESSION: No evidence of acute abnormality. I have personally reviewed the images and I agree with this report. WSN: [id number] Ordering Physician: Amauri Patterson Dictated By: Marisol Camp MD Dictated Date/Time: 11/07/22 9:58 pm Reviewed By: Jayce Mix MD Signed By: Jayce Mix MD Signed Date/Time: 11/07/22 10:03 pm Transcribed By: HARAPL Transcribed Date/Time: 11/07/22 9:53 pm Vital Signs Most recent to oldest [Reference Range]: 1 2 3 Oxygen Saturation [94-100 %] 98 % (11/07/22 10:46 PM) 98 % (11/07/22 8:47 PM) 98 % (11/07/22 6:48 PM) Pulse Rate [55-90 bpm] 90 bpm (11/07/22 10:46 PM) 80 bpm (11/07/22 8:47 PM) 79 bpm (11/07/22 6:48 PM) Blood Pressure [90-138/55-84 mm Hg] 127/90mm Hg (11/07/22 10:46 PM) 121/88mm Hg (11/07/22 8:47 PM) 118/94mm Hg (11/07/22 6:48 PM) Respiratory Rate [16-30 br/min] 18 br/min (11/07/22 10:46 PM) 16 br/min (11/07/22 8:48 PM) 14 br/min *L* (11/07/22 8:47 PM) Temperature [96.8-100.4 DegF] 98.0 DegF (11/07/22 10:46 PM) 97.9 DegF (11/07/22 6:48 PM) 98.2 DegF (11/07/22 2:02 PM) Mode of Delivery (Oxygen) Room air (11/07/22 10:46 PM) Room air (11/07/22 6:48 PM) Room air (11/07/22 2:02 PM) Blood pressure sites Arm, right (11/07/22 10:46 PM) Arm, right (11/07/22 6:48 PM) Arm, right (11/07/22 2:02 PM) Temperature Route Oral (11/07/22 10:46 PM) Oral (11/07/22 6:48 PM) Oral (11/07/22 2:02 PM) Social History Social History Type Response Smoking Status Former smoker; Other : Quit 2014; entered on: 09/10/17 Sex Note * Amauri Patterson MD: PERFORM Event Display: Patient Education Leaflets Authored Date: [id number] Back Pain (Acute or Chronic) ?? [id number] Back Pain (Acute or Chronic) Back pain [...] taking other medicines. ??? You may use eqfa-zzx-[id number] medicine as directed on the bottle to [...] area ?? Last Reviewed Date: 2021 ?? [id number] [employer]. All rights reserved. This information is not intended as a substitute for professional medical care. Always follow your healthcare professional's instructions. ?? * Amauri Patterson MD: PERFORM Event Display: Patient Education Leaflets Authored Date: [id number] Physical Therapy Referral ?? 250 ?? This page is FOR PRESCRIBERS Only, ? DO NOT GIVE TO THE PATIENT? Physical Therapy Referral Program for Management of Pain In an effort to reduce narcotic use, some of our ED patients will benefit from a direct referral torehab care.?? [facility] will see INSURED patients and has a system in place to avoid sending follow up paperwork to the ED prescribers.? Note: Non-[facility] physical therapy services will probably NOT be able to handle ED generated PT referrals. ?? Patients should still follow up with their PCP as soon as possible regarding their ongoing care. Inform patients that [facility] care will discuss insurance when they call.?? Some insurance plans limit the amount of PT a patient can receive each year. ?? Complete the FIRST PAGE of the patient???s referral sheet. [place] or write in diagnosis Modify the timing [...] This form can be used at any [facility] location.?? A list of locations is attached.?? 1)?? DIAGNOSIS/ICD-10 (kluti kaah one) Cervicalgia: M54.2 ? Strain of muscle, [...] Tell them you were seen in a [facility] Emergency Department and have a referral form.?? Remember to bring your referral form with you to the appointment. JESSIE Pineda [address]? JESSIE Arauz [address] [address] [facility], [address]? [address] Phone: [phone]? JESSIE Estrada [address]? [place] [address]? [address] ? [place] [address]? [place] [address]? [address] ? [place] [address]? [place] [address]? [address]? [facility] ? [address] ? CT Abdomen and Pelvis WO contrast * [facility] , CIS S: TRANSCCHELO Mix MD, Jayce S: VERIFY Marisol Camp MD: SIGN Event Display: Result: Authored Date: CT Abdomen and Pelvis W/O Contrast HX OF PRESENT ILLNESS: chronic lower back pain radiating to lower pelvic area, pt with burning sensation to bilat thighs, had incontinence episode on Sunday which is new for him, unable to urinate adequately.; Reason: Flank pain, kidney stone suspected; Clinical Question(s): Calculus; Right Side flank TECHNIQUE: Spiral CT through the abdomen and pelvis without IV contrast formatted in 3 planes. Thisstudy was performed without oral contrast. Weight- based protocol using automatic tube modulation was used to optimize exposure parameters. CTDIvol Body: 12.11 mGy, DLP Body: 656 mGy*cm. COMPARISON: CT abdomen pelvis dated 09/20/2022 FINDINGS: Electronic Commerce Specialist View Findings, Lines and Tubes: None. Visualized Chest: Mild bibasilar atelectasis. Minimally visualized lung bases are otherwise clear. No pleural effusion. Diaphragm: Unchanged diaphragmatic calcifications near the level of the GE junction. Liver: Normal. Gallbladder: Mildly distended. No evidence of pericholecystic fluid or wall thickening to suggest acute cholecystitis. Bile ducts: No biliary ductal dilation. Spleen: Punctate calcification, likely sequela of prior granulomatous disease. Pancreas: Normal. Adrenal glands: Normal. Kidneys and ureters: No hydronephrosis or noncontrast evidence of suspicious masses. Excreted contrast from earlier MRI could obscure small calculi, though none are visualized. Bladder: Normal. Reproductive organs: Unremarkable. Stomach, small bowel, and large bowel: Unremarkable stomach, small and large bowel. No evidence of obstruction or inflammation. Mild colonic diverticulosis without evidence of diverticulitis. Appendix: Normal. Peritoneum and retroperitoneum: No ascites or pneumoperitoneum. No omental or mesenteric lesions. Lymph nodes: No enlarged lymph nodes. Blood vessels: Normal. No aneurysm. Abdominal and pelvic wall: Unremarkable. Bones: No acute abnormality. IMPRESSION: No evidence of acute abnormality. I have personally reviewed the images and I agree with this report. WSN: [id number] Ordering Physician: Amauri Patterson Dictated By: Marisol Camp MD Dictated Date/Time: 11/07/22 9:58 pm Reviewed By: Jayce Mix MD Signed By: Jayce Mix MD Signed Date/Time: 11/07/22 10:03 pm Transcribed By: HARPAL Transcribed Date/Time: 11/07/22 9:53 pm Patient Care team information Care Team Personnel Name: Macarena Lewis RN Position: [facility] RN Member Role: Primary Care Nurse Name: Mallory Lugo RN Position: S RN Member Role: Primary Care Nurse Name: Carmen Gao RN Position: S RN Member Role: Primary Care Nurse Name: Dacia Evangelista RN Position: [facility] RN Member Role: Primary Care Nurse Name: Tracey Linares RN Position: [facility] PCO RN Member Role: Primary Care Nurse Name: Italia Ortega RN Position: [facility] RN Member Role: Primary Care Nurse Name: Catalina He RN Position: [facility] PCO RN Member Role: Primary Care Nurse Name: Cortez Golden RN Position: [facility] RN Member Role: Primary Care Nurse Name: Jessica Lantigua RN Position: [facility] SN RN Member Role: Primary Care Nurse Name: Clifford Gerber RN Position: [facility] RN Member Role: Primary Care Nurse Name: Peter Monahan RN Position: [facility] RN Member Role: Primary Care Nurse Name: Aziza Poole RN Position: [facility] RN Member Role: Primary Care Nurse Name: Monet Miller RN Position: [facility] RN Member Role: Primary Care Nurse Name: Katheryn Wu RN Position: [facility] RN Member Role: Primary Care Nurse Name: Doris Dee RN Position: [facility] RN Member Role: Primary Care Nurse Name: Janae Soto RN Position: [facility] RN Member Role: Primary Care Nurse Name: Hyun Ochoa RN Position: [facility] RN Member Role: Primary Care Nurse Name: Nancy Magana RN Position: [facility] RN Member Role: Primary Care Nurse Name: Ranjana Zavala RN Position: [facility] RN Member Role: Primary Care Nurse Name: Melvi Carter RN Position: [facility] OB RN Member Role: Primary Care Nurse Name: Jackson Rosen RN Position: [facility] RN Member Role: Primary Care Nurse Name: Clarissa Rodriguez RN Position: [facility] RN Supv Member Role: Primary Care Nurse Name: Ophelia Marie RN Position: [facility] RN Member Role: Primary Care Nurse Name: Nolvia Mendes RN Position: [facility] RN Member Role: Primary Care Nurse Name: Adi Rees RN Position: [facility] RN Member Role: Primary Care Nurse Name: Catalina Torres RN Position: [facility] RN Member Role: Primary Care Nurse Name: Doroteo Morrow RN Position: [facility] RN Member Role: Primary Care Nurse Address: Address: [address] [place] [id number]- Name: Cassidy Masters RN Position: [facility] RN Member Role: Primary Care Nurse Name: Juancarlos Valente RN Position: [facility] [employer] Member Role: Primary Care Nurse Name: Mary RAWLS, Dawna Position: [facility] Primary Care Physician Member Role: PCP Address: Address: [address] [place] [id number]- Name: *[facility], ED Attending Position: [facility] ED Attendings Patient Name: Amauri Patterson MD Position: [facility] ED Medicine MD Member Role: Admitting Physician Address: Address: [address] [place] [id number]- Name: Hayes Hemphill Position: [facility] ED TA [facility] Member Role: Patient Care Provider Name: Christine Chavez RN Position: [facility] ED RN W/OE and Tasks Member Role: Patient Care Provider Care Team Related Persons Name: SYLVIA BARBOSA Address: home [address] [place] [address] Name: GAGE HUNT Address: [address] [place] [address] Name: JOCELYN HUNT Address: home [address] [place] [address]
--- OUTSIDE RECORDS SUMMARY | 2024-05-24 04:42 | XMS_ITS | Continuity of Care Document ---
Author Organization [facility] ter Address [address] [place] [address]- Care Team Providers Care Hospital Administrator Name Role Phone Dawna Hernandez MD Primary Care Physician [phone] Encounter [facility] Date(s): 01/31/23 - 01/31/[address] [address]- Encounter Diagnosis Back pain(Final) - 01/31/23 Discharge Disposition: A-D/C Home Attending Physician: Randi Beckford DO Admitting Physician: Randi Beckford DO Referring Physician: Not on Staff, Referring MD Allergies, Adverse Reactions, Alerts Substance Reaction Severity Status lisinopril Angioedema Active Shrimp Active Immunizations Given and Recorded Vaccine Date Status Refusal Reason [id number] 12y+ bivalent booster vax 11/03/22 Given influenza virus vaccine, inactivated 11/03/22 Give n influenza virus vaccine, inactivated 02/15/22 Give n influenza virus vaccine, inactivated 09/01/20 Give n influenza virus vaccine, inactivated 09/15/19 Give n influenza virus vaccine, inactivated 11/19/18 Give n influenza virus vaccine, inactivated 09/10/17 Give n influenza virus vaccine, inactivated 12/06/15 Give n SARS-CoV-2 mRNA (mlkhbos-eaeo-hpkpe) vax 01/26/22 Given SARS-CoV-2 mRNA (gjbvpur-pbpd-aoazz) vax 12/28/21 Given tetanus/diphtheria/pertussis, acel(Tdap) 03/29/19 Given [...] Refills, Maintenance, 05/11/22 14:22:00 EDT, Tablet, [facility]acy #[id number], Partial fill [...] 1 Refills, Maintenance, 04/05/22 7:53:00 EDT, [facility] #[id number], 165, cm, 02/15/22 10:35:00 EDT, Height, 90.7, kg, 02/06/22 19:49:00 EDT, Dry Weight Start Date: 04/05/22 Status: Ordered Colace sodium 100 mg oral capsule 100 mg, 1, capsule, By Mouth, 2 times a day, PRN, # 20 capsule, Refills 0, Tot. Refills 0, Maintenance, for constipation, 09/22/22 9:53:00 EST, Route to Pharmacy Electronically, [facility]/pharmacy [...] 0 Refills, Maintenance, 01/26/23 13:08:00 EDT, Tablet, [facility] #[id number], Partial fill upon patient request if the [...] oral capsule 300 mg, Capsule, By Mouth, Once, STAT, 01/31/23 20:38:00 EDT, Stop date 01/31/23 20:38:00 EDT Start Date: 01/31/23 Stop Date: 01/31/23 Status: Completed gabapentin 300 mg oral capsule 300 mg, 1, capsule, By Mouth, 3 times a day, # 21 capsule, Refills 0, Tot. Refills 0, Soft Stop, 01/31/23 21:34:00 EDT, Route to Pharmacy Electronically, [facility]/pharmacy [...] 0 Refills, Maintenance, 07/20/22 15:26:00 EDT, [id number], 10, APPLY 1 PATCH DAILY NEEDED FOR MODERATE PAIN..REMOVE AFTER 12... Start Date: 07/20/22 Status: Ordered nitroglycerin 0.4 mg sublingual tablet 1 tablet = 0.4 mg, Sublingual, Every 5 minutes, PRN Chest Pain, # 100 tablet, 0 Refills, Maintenance, 11/06/22 13:52:00 EST, Tablet, [facility]/pharmacy #[id number], Partial fill upon patient request if the prescription is for a schedule II opioid drug., 175, cm,... Start Date: 11/06/22 Status: Ordered omeprazole 20 mg oral enteric coated capsule 1 capsule = 20 mg, By Mouth, Daily, # 30 capsule, 1 Refills, Maintenance, 01/04/23 12:40:00 EDT, ECCapsule, [facility]/pharmacy #[id number], Partial fill upon patient request if the prescription is for a schedule II opioid drug., 165, cm, 01/04/23 9:35:00 EDT, He... Start Date: 01/04/23 Status: Ordered OxyCONTIN 15 mg oral tablet, extended release 1 tablet = 15 mg, By Mouth, Every 12 hours, MassPAT checked dx: M54.5 on agreement, # 60 tablet, 0 Refills, Maintenance, 01/22/23 15:38:00 EDT, ER Tablet, [id number], Partial fill [...] tablet, Refills 5, Route to Pharmacy Electronically, [id number], 166, cm, 12/28/21 10:33:00 EDT, Height, 91.9, [...] EST, Supply Start Date: 12/12/22 Status: Ordered Data Analyst Report Writer Data Analyst Report Writer, See Instructions, # 1 each, Refills 0, [...] each, 0 Refills, Maintenance, 12/12/22 12:14:00 EST, [facility] [id number], 175, cm, 11/15/22 9:07:00 EST, Height, 88.2, [...] Active Health long term, active care coordination Netta Cruz [facility] [phone] Confirmed Active Fatty infiltration of liver Confirmed Active Tubular adenoma of colon Confirmed Active 1history of this with surgical correction Vital Signs Most recent to oldest [Reference Range]: 1 2 3 Oxygen Saturation [94-100 %] 98 % (01/31/23 9:26 PM) 98 % (01/31/23 8:03 PM) 99 % (01/31/23 6:17 PM) Pulse Rate [55-90 bpm] 80 bpm (01/31/23 9:26 PM) 76 bpm (01/31/23 8:03 PM) 84 bpm (01/31/23 6:17 PM) Blood Pressure [90-138/55-84 mm Hg] 131/84mm Hg (01/31/23 9:26 PM) 131/84mm Hg (01/31/23 8:03 PM) 134/90mm Hg (01/31/23 6:17 PM) Respiratory Rate [16-30 br/min] 20 br/min (01/31/23 9:26 PM) 22 br/min (01/31/23 9:19 PM) 12 br/min *L* (01/31/23 8:03 PM) Temperature [96.8-100.4 DegF] 98.8 DegF (01/31/23 6:17 PM) 97.9 DegF (01/31/23 12:12 PM) 98.6 DegF (01/31/23 9:54 AM) Mode of Delivery (Oxygen) Room air (01/31/23 9:26 PM) Room air (01/31/23 8:03 PM) Room air (01/31/23 6:17 PM) Blood pressure sites Arm, right (01/31/23 9:26 PM) Arm, right (01/31/23 8:03 PM) Arm, right (01/31/23 6:17 PM) Temperature Route Oral (01/31/23 6:17 PM) Oral (01/31/23 12:12 PM) Oral (01/31/23 9:54 AM) Social History Social History Type Response Smoking Status Former smoker; Other : Quit 2014; entered on: 09/10/17 Sex Patient Care team information Care Team Personnel Name: Macarena Lewis RN Position: [facility] [...] RN Position: [facility] PCO RN Member Role: Primary Care [...] Nurse Name: Monet Miller RN Position: [facility] [...] Position: [facility] RN Supv Member Role: Primary Care Nurse Name: Ophelia Marie RN Position: [facility] RN Member Role: Primary Care Nurse Name: Nolvia Mendes RN Position: [facility] RN Member Role: Primary Care Nurse Name: Adi Rees RN Position: [facility] RN Member Role: Primary Care Nurse Name: Doroteo Morrow RN Position: [facility] RN Member Role: Primary Care Nurse Address: Address: [address] [place] [address]- Name: Cassidy Masters RN Position: [facility] RN Member Role: Primary Care Nurse Name: Juancarlos Valente RN Position: [facility] Hospital Commercial Engineer Member Role: Primary Care Nurse Name: Dawna Hernandez MD Position: [facility] Primary Care Physician Member Role: PCP Address: Address: [address] [place] [phone]- [place] Name: Claritza Casanova Position: [facility] ED RN W/OE and Tasks Member Role: Patient Care Provider Name: Susana Marie RN Position: [facility] ED RN W/OE and Tasks Member Role: Patient Care Provider Name: Edwin Hoangnicanor Position: [facility] ED TA [facility] Name: Mattie Bobby DO Position: [facility] Resident Member Role: ED Resident Address: Address: [address] [place] [phone]- [place] Name: Randi Beckford DO Position: [facility] Resident Member Role: Admitting Physician Address: Address: [address] [place] [address]- Care Team Related Persons Name: CHELSEY SYLVIA Address: home [address] [place] [address] Name: GAGE HUNT Address: [address] [place] [address] Name: JOCELYN HUNT Address: home [address] [place] [address]
--- OUTSIDE RECORDS SUMMARY | 2024-05-24 04:42 | XMS_ITS | Continuity of Care Document ---
Author Organization [facility] Address [address] [place] [address]- Care Team Providers Care Merchandise Worker Name Role Phone Alonzo Esposito MD Primary Care Physician [facility]): 09[facility]13[facility]23 - 10/13/23 [facility] [address] [place], [place] [address] Attending Physician: AdmLori sandhu Admitting Physician: Admtr, Lori Referring Physician: Admtr, [...] influenza virus vaccine, inactivated 12/06/15 Give n [id number] 12y+ bivalent booster vax 11/03/22 Given SARS-CoV-2 mRNA (yagbwfd-nhty-tjtoh) vax 01/26/22 Given SARS-CoV-2 mRNA (lbfyqrw-kium-igbvh) vax 12/28/21 Given tetanus/diphtheria/pertussis, acel(Tdap) 03/29/19 Given tetanus/diphtheria/pertussis, acel(Tdap) 09/10/17 Given pneumococcal 23-valent vaccine 04/08/18 Recorded pneumococcal 23-valent vaccine 04/22/17 Recorded pneumococcal 23-valent vaccine 12/21/12 Given Medications aspirin 81 mg oral delayed release tablet 81 mg, By Mouth, Daily, # 30 tablet, Refills 11, Tot. Refills 11, Maintenance, 09/12/23 17:42:00 EST, Route to Pharmacy Electronically, [facility] [id number], For blister pack please., 166, cm, 09/12/23 13:54:00 EST, Height, 9... Start Date: 09/12/23 Status: Ordered atorvastatin 40 mg oral tablet 1 tablet = 40 mg, By Mouth, Daily, # 30 tablet, 11 Refills, Maintenance, 09/12/23 17:42:00 EST, Tablet, [place], [place] - [id number], For blister pack please., 166, cm, 09/12/23 13:54:00 EST, Height, 93, kg, 09/06/23 16:15:00 EST, Start Date: 09/12/23 Stop Date: 09/06/24 Status: Ordered chlorhexidine topical 0.12% liquid See Instructions, SWISH AND SPIT DO NOT SWALLOW. USE 3-4 X/ DAY, # 473 mL, 0 Refills, Maintenance, 09/25/23 16:56:00 EST, [facility] STORE [id number], 30, SWISH AND SPIT DO NOT SWALLOW. USE 3-4 X/ DAY, 166, cm, 09/21/23 11:32:00 EST, Height, 93, kg, 09/14/23 12:3... Start Date: 09/25/23 Status: Ordered docusate sodium 100 mg oral tablet 1 tablet = 100 mg, By Mouth, 2 times a day, PRN for constipation, # 60 tablet, 0 Refills, Maintenance, 09/27/23 13:27:00 EST, Tablet, [facility]/pharmacy #[id number], Partial [...] Maintenance, 09/12/23 17:44:00 EST, Route to Pharmacy Electronically,[facility] [id number], for... Start Date: 09/12/23 Status: Ordered gabapentin 300 mg oral capsule 300 mg, 1, capsule, By Mouth, 2 times a day, # 60 capsule, Refills 11, Tot. Refills 11, Maintenance, 09/12/23 17:42:00 EST, Route to Pharmacy Electronically, [facility], [facility] [id number], For blister pack please., 166, cm, 09/12/23 1... Start Date: 09/12/23 Status: Ordered nitroglycerin 0.4 mg sublingual tablet 1 tablet = 0.4 mg, Sublingual, Every 5 minutes, PRN Chest Pain, # 100 tablet, 0 Refills, Maintenance, 06/08/23 16:23:00 EDT, [id number] upon [...] 0 Refills, Maintenance, 09/24/23 12:55:00 EST, Tablet[id number] Partial fill upon patient req... Start Date: 09/24/23 Status: Ordered propranolol 20 mg oral tablet 2, tablet, By Mouth, 2 times a day, # 120 tablet, Refills 11, Tot. Refills 11, Maintenance, 09/12/23 17:42:00 EST, Route to Pharmacy Electronically, [facility], [facility] [id number], For blister pack please., 166, cm, 09/12/23 13:54:00 E... Start Date: 09/12/23 Status: Ordered risperiDONE 2 mg oral tablet 4 mg, 2, tablet, By Mouth, Daily at bedtime, Rx'd by psychiatry, # 60 tablet, Refills 11, Tot. Refills 11, Maintenance, 09/12/23 17:44:00 EST, Route to Pharmacy Electronically, [facility], [facility] [id number], for blister pack, 166, cm... Start Date: 09/12/23 Status: Ordered tiZANidine 2 mg oral tablet 2 mg, 1, tablet, By Mouth, 3 times a day, Can take two tablets at bedtime. Do not take at the same time as oxycodone., # 90 tablet, Refills 0, Tot. Refills 0, Maintenance, 09/26/23 10:38:00 EST, Route to Pharmacy Electronically, [facility]/pharmacy #[id number], Sp... Start Date: 09/26/23 Status: Ordered traZODone 100 mg oral tablet 50 mg, 0.5, tablet, By Mouth, Daily at bedtime, # 15 tablet, Refills 11, Tot. Refills 11, Maintenance, 09/12/23 17:44:00 EST, Route to Pharmacy Electronically, [facility] [place] [place] - [id number], Partial fill upon patient request if the pr... Start Date: 09/12/23 Status: Ordered Ventolin HFA 108 mcg/inh inhalation aerosol with adapter 2 puffs, Inhalation, 4 times a day, PRN NEEDED FOR WHEEZING, # 18 Gm, 11 Refills, Maintenance, 02/22/23 8:17:00 EDT, [facility]/pharmacy #[id number], 166, cm, 01/18/23 15:56:00 EDT, Height, [...] [facility], active care coordination PADMINI Mata [phone] Confirmed Active Fatty infiltration of liver Confirmed [...] Care Nurse Name: Carmen Gao RN Position: [facility] ED [...] Member Role: Primary Care Nurse Name: Jessica Latnigua RN Position: [facility] SN [...] Primary Care Member Role: PCP Address: Address: [address] [place] [phone]- [place] Name: Doroteo Morrow RN Position: [facility] RN Member Role: Primary Care Nurse Address: Address: [address] [place] [phone]- Name: Cassidy Masters RN Position: [facility] RN Member Role: Primary Care Nurse Name: Juancarlos Valente RN Position: [facility] Fretted Instrument Repairer Member Role: Primary Care Nurse Name: Tran Wiseman RN Position: [facility] RN Member Role: Primary Care Nurse Care Team Related Persons Name: SYLVIA BARBOSA Address: [address] [place] [address] Name: GAGE HUNT Address: [address] [place] [address] Name: JOCELYN HUNT Address: home [address] [place] [address]
--- OUTSIDE RECORDS SUMMARY | 2024-05-24 04:42 | XMS_ITS | Continuity of Care Document ---
Author Organization [facility] Address [address] [place] [address] [address], [address] [place] [address]- Care Team Providers Care Underground Mining Section Foreman Name Role Phone Alonzo Esposito MD Primary Care Physician Encounter [facility] Date(s): 11/06/23 - 12/06/[address], [address] [place], [place] [address] Attending Physician: AdmtrLori Admitting Physician: Admtr, Ar8 [...] influenza virus vaccine, inactivated 12/06/15 Give n [id number] 12y+ bivalent booster vax 11/03/22 Given SARS-CoV-2 mRNA (hakhqom-zufz-ujvtf) vax 01/26/22 Given SARS-CoV-2 mRNA (yyenomt-vlbq-bnumk) vax 12/28/21 Given pneumococcal 23-valent vaccine 04/08/18 Recorded pneumococcal 23-valent vaccine 04/22/17 Recorded pneumococcal 23-valent vaccine 12/21/12 Given 1Result Comment: [facility] aspirin 81 mg oral delayed release tablet 81 mg, By Mouth, Daily, # 30 tablet, Refills 11, Tot. Refills 11, Maintenance, 09/12/23 17:42:00 EST, Route to Pharmacy Electronically, [facility] [id number], For blister pack please., 166, cm, 09/12/23 13:54:00 EST, Height, 9... Start Date: 09/12/23 Status: Ordered atorvastatin 40 mg oral tablet 1 tablet = 40 mg, By Mouth, Daily, # 30 tablet, 11 Refills, Maintenance, 09/12/23 17:42:00 EST, Tablet, [facility] [id number], For blister pack please., 166, cm, 09/12/23 13:54:00 EST, Height, 93, kg, 09/06/23 16:15:00 EST, DrMicheal.. Start Date: 09/12/23 Stop Date: 09/06/24 Status: Ordered diclofenac 1% topical gel 1 application, Topically, 4 times a day, PRN Pain , Mild, not to exceed 16 grams/day/single joint of lower extremities, # 100 Gm, 3 Refills, Maintenance, 11/30/23 9:43:00 EST, Gel, [facility]/pharmacy #[id number], Partial fill upon patient request if the prescript... Start Date: 11/30/23 Status: Ordered FLUoxetine 20 mg oral capsule 60 mg, 3, capsule, By Mouth, Daily, TAKE 3 CAPSULES BY MOUTH EVERY DAY IN THE MORNING, # 90 capsule, Refills 11, Tot. Refills 11, Maintenance, 09/12/23 17:44:00 EST, Route to Pharmacy Electronically,[facility] [id number], for... Start Date: 09/12/23 Status: Ordered gabapentin 600 mg oral tablet = 600 mg, By Mouth, 2 times a day, # 60 tablet, 4 Refills, Maintenance, 11/30/23 9:35:00 EST, Tablet, [facility]/pharmacy #[id number], Partial fill upon patient request if the prescription is for a schedule II opioid drug.Please note dose change for pill pack., 16... Start Date: 11/30/23 Status: Ordered nitroglycerin 0.4 mg sublingual tablet 1 tablet = 0.4 mg, Sublingual, Every 5 minutes, PRN Chest Pain, # 100 tablet, 0 Refills, Maintenance, 06/08/23 16:23:00 EDT, Tablet, [facility]/pharmacy #[id number], Partial fill upon patient request if the prescription is for a schedule II opioid drug., 165, cm,... Start Date: 06/08/23 Status: Ordered oxyCODONE 15 mg oral tablet 1 tablet = 15 mg, By Mouth, Every 6 hours, PRN Pain , Severe, controlled substance agreement., # 120 tablet, 0 Refills, Maintenance, 11/30/23 9:38:00 EST, Tablet, [facility]/pharmacy #[id number], Partial fill upon patient request if the prescription is for a sched... Start Date: 11/30/23 Status: Ordered propranolol 20 mg oral tablet 2, tablet, By Mouth, 2 times a day, # 120 tablet, Refills 11, Tot. Refills 11, Maintenance, 09/12/23 17:42:00 EST, Route to Pharmacy Electronically, [facility] [id number], For blister pack please., 166, cm, 09/12/23 13:54:00 E... Start Date: 09/12/23 Status: Ordered risperiDONE 2 mg oral tablet 4 mg, 2, tablet, By Mouth, Daily at bedtime, Rx'd by psychiatry, # 60 tablet, Refills 11, Tot. Refills 11, Maintenance, 09/12/23 17:44:00 EST, Route to Pharmacy Electronically, [facility] [id number], for blister pack, 166, cm... Start Date: 09/12/23 Status: Ordered traZODone 100 mg oral tablet 50 mg, 0.5, tablet, By Mouth, Daily at bedtime, # 15 tablet, Refills 11, Tot. Refills 11, Maintenance, 09/12/23 17:44:00 EST, Route to Pharmacy Electronically, [facility] [id number], Partial fill upon patient request if the [...] Active Health [facility], [facility] [phone] Confirmed Active Fatty infiltration of liver Confirmed Active Tubular adenoma of colon Confirmed Active 1history of this with surgical correction Social History Social History Type Response Smoking Status Former smoker; Other : Quit 2014; entered on: 09/10/17 Sex Patient Care team information Care Team Personnel Name: Elvia Collins RN Position: [facility] RN Member Role: Primary Care Nurse Name: Macarena Lewis RN Position: [facility] RN Member Role: Primary Care Nurse Name: Mallory Lugo RN Position: [facility] RN Member Role: Primary Care Nurse Name: Carmen Gao RN Position: [facility] ED RN W/OE and Tasks Member Role: Primary Care Nurse Name: Dacia Evangelista RN Position: [facility] RN Member Role: Primary Care Nurse Name: Tracey Linares RN Position: [facility] AMB Nurse Member Role: Primary Care Nurse Name: Italia Ortega RN Position: [facility] RN Member Role: Primary Care Nurse Name: Catalina He RN Position: [facility] AMB Nurse Member Role: Primary Care Nurse Name: Cortez Golden RN Position: [facility] RN Member Role: Primary Care Nurse Name: Jessica Lantigua RN Position: [facility] SN RN Member Role: Primary Care Nurse Name: Catalina Pack RN Position: [facility] SN RN Member Role: Primary Care Nurse Name: Clifford Gerber RN Position: [facility] RN Member Role: Primary Care Nurse Name: Doris Butler RN Position: [facility] RN Member Role: Primary Care Nurse Name: Aziza Poole RN Position: [facility] RN Member Role: Primary Care Nurse Name: Monet Miller RN Position: [facility] RN Member Role: Primary Care Nurse Name: Katheryn Wu RN Position: [facility] SN RN Member Role: Primary Care Nurse Name: Doris Dee RN Position: [facility] RN Member Role: Primary Care Nurse Name: Janae Soto RN Position: [facility] RN Member Role: Primary Care Nurse Name: Daphney Echols LPN Position: [facility] RN Member Role: Primary Care Nurse Name: Nini Odonnell RN Position: [facility] RN Member Role: Primary Care Nurse Name: Jennifer Thakkar RN Position: [facility] RN Member Role: Primary Care Nurse Name: Hyun Ochoa RN Position: [facility] RN Member Role: Primary Care Nurse Name: Yazmin Lay RN Position: [facility] RN Member Role: Primary Care Nurse Name: Ranjana Zavala RN Position: [facility] RN Member Role: Primary Care Nurse Name: Melvi Carter RN Position: [facility] OB RN Member Role: Primary Care Nurse Name: Jackson Rosen RN Position: [facility] RN Member Role: Primary Care Nurse Name: Clarissa Rodriguez RN Position: [facility] RN Supv Member Role: Primary Care Nurse Name: Ophelia Marie RN Position: [facility] RN Member Role: Primary Care Nurse Name: Nolvia Mendes RN Position: [facility] RN Member Role: Primary Care Nurse Name: Tyrone Gemrain RN Position: [facility] RN Member Role: Primary Care Nurse Name: Adi Rees RN Position: [facility] RN Member Role: Primary Care Nurse Name: Alonzo Esposito MD Position: [facility] Physician - Primary Care Member Role: PCP Address: Address: [address] [place] [address]- [place] Name: Doroteo Morrow RN Position: [facility] RN Member Role: Primary Care Nurse Address: Address: [address] [place] [address]- [place] Name: Cassidy Masters RN Position: [facility] RN Member Role: Primary Care Nurse Name: Juancarlos Valente RN Position: [facility] Hospital Deputy Register Of Deeds Member Role: Primary Care Nurse Name: Tran Wiseman RN Position: [facility] RN Member Role: Primary Care Nurse Care Team Related Persons Name: LETI BARBOSAA Address: [address] [address] Name: GAGE HUNT Address: home [address] [place] [address] Name: JOCELYN HUNT Address: home [address] [place] [address]
--- OUTSIDE RECORDS SUMMARY | 2024-05-24 04:42 | XMS_ITS | Continuity of Care Document ---
Author Organization [facility] Address [address] [place] [id number]- Care Team Providers Care Director Process Engineering Name Role Phone Maryan RAWLS, Michael Ulloa Primary Care Physician Encounter [facility] Date(s): 03/21/23 - 04/20/[address] [address]- Allergies, Adverse Reactions, Alerts Substance Reaction Severity Status lisinopril Angioedema Active Shrimp Active Immunizations Given and Recorded Vaccine Date Status Refusal Reason [id number] 12y+ bivalent booster vax 11/03/22 Given influenza virus vaccine, inactivated 11/03/22 Give n influenza virus vaccine, inactivated 02/15/22 Give n influenza virus vaccine, inactivated 09/01/20 Give n influenza virus vaccine, inactivated 09/15/19 Give n influenza virus vaccine, inactivated 11/19/18 Give n influenza virus vaccine, inactivated 09/10/17 Give n influenza virus vaccine, inactivated 12/06/15 Give n SARS-CoV-2 mRNA (ukyqmyg-ezva-fxxkc) vax 01/26/22 Given SARS-CoV-2 mRNA (zwokkds-nrol-glapn) vax 12/28/21 Given tetanus/diphtheria/pertussis, acel(Tdap) 03/29/19 Given tetanus/diphtheria/pertussis, acel(Tdap) 09/10/17 Given pneumococcal 23-valent vaccine 04/08/18 Recorded pneumococcal 23-valent vaccine 04/22/17 Recorded pneumococcal 23-valent vaccine 12/21/12 Given Medications acetaminophen-oxycodone 325 mg-10 mg oral tablet 1 tablet, By Mouth, Daily at bedtime, for 30 days, mass pat verified, # 30 tablet, 0 Refills, Acute05/19/23 21:13:00 EDT, 04/19/23 21:13:00 EDT, [facility]/pharmacy [...] 03/15/23 0:06:00 EDT, Route to Pharmacy Electronically, [facility]/pharmacy #[id number], Partial fill upon patient request if the prescription is for a schedule II opioid drug.... Start Date: 03/15/23 Status: Ordered atorvastatin 40 mg oral tablet 1 tablet, By Mouth, Daily, # 90 tablet, 1 Refills, Maintenance, 03/01/23 12:46:00 EDT, [id number], 166, cm, 01/18/23 15:56:00 EDT, Height, 91, [...] tablet, 1 Refills, Maintenance, 02/22/23 8:17:00 EDT, [facility]/pharmacy #[id number], 166, cm, 01/18/23 [...] Refills, Maintenance, 03/17/23 20:07:00 EDT, Gel, [id number], Partial fill upon [...] 09/06/22 21:10:00 EST, [id number] Partial fill upon patientrequest if the [...] 0 Refills, Maintenance, 03/17/23 20:07:00 EDT, Film, [facility]/pharmacy #[id number], [...] [facility] STORE [id number], 10, APPLY 1 PATCH DAILY NEEDED FOR MODERATE PAIN..REMOVE AFTER 12... Start Date: 07/20/22 Status: Ordered Medrol Dosepak 4 mg oral tablet 1 pack/packet, By Mouth, Daily, for 6 days, as directed on package labeling, # 21 tablet, 5 Refills, Acute 04/22/23 20:03:00 EDT, 03/17/23 20:03:00 EDT, Tablet, [facility]/pharmacy #[id number], Partial fill upon patient request if the prescription is for a schedul... Start Date: 03/17/23 Stop Date: 04/22/23 Status: Ordered Motrin IB 200 mg oral tablet 2 tablet = 400 mg, By Mouth, Every 6 hours, PRN for pain, # 120 tablet, 0 Refills, Maintenance, 03/17/23 20:06:00 EDT, Tablet, [facility] capsule, 5 Refills, Maintenance, 03/03/23 15:23:00 EDT, [facility] STORE [id number], 166, cm, 01/18/23 15:56:00 EDT, Height, 91, kg, 01/18/23 15:56:00 EDT, Dry Weight Start Date: 03/03/23 Status: Ordered OxyCONTIN 15 mg oral tablet, extended release 1 tablet = 15 mg, By Mouth, Every 12 hours, MassPAT checked dx: M54.5 on agreement do not fill until 03/24/23, # 60 tablet, 0 Refills, Maintenance, 04/11/23 12:33:00 EDT, ER Tablet, [facility]/pharmacy #[id number], Partial fill upon patient request if the [...] 04/19/23 20:48:00 EDT, Route to Pharmacy Electronically, [facility] STORE [id number], 165, cm, 04/09/23 9:47:00 EDT, Height, 89.1, [...] EST, Supply Start Date: 12/12/22 Status: Ordered Rn Radiation Oncology Rn Radiation Oncology, See Instructions, # 1 each, Refills 0, [...] 03/17/23 20:06:00 EDT, Route to Pharmacy Electronically, [facility]/pharmacy #[id number], Partial fill upon patient request if the prescription is for... Start Date: 03/17/23 Status: Ordered Ventolin HFA 108 mcg/inh inhalation aerosol with adapter 2 puffs, Inhalation, 4 times a day, PRN NEEDED FOR WHEEZING, # 18 Gm, 11 Refills, Maintenance, 02/22/23 8:17:00 EDT, [facility]/pharmacy #[id number], 166, cm, 01/18/23 [...] Health intermediate, active care coordination PADMINI Mata [phone] Confirmed Active Fatty infiltration of liver Confirmed Active Tubular adenoma of colon Confirmed Active 1history of this with surgical correction Social History Social History Type Response Smoking Status Former smoker; Other : Quit 2014; entered on: 09/10/17 Sex Patient Care team information Care Team Personnel Name: Macarena Lewis RN Position: S RN Member Role: Primary Care Nurse Name: Mlalory Lugo RN [facility] Care Nurse Name: Michael Steinberg MD Position: [facility] Physician - Primary Care Member Role: PCP Address: Address: [address] [place] [address]- Name: Italia Ortega RN [facility] Position: [facility] RN Supv Member Role: [...] Role: Primary Care Nurse Address: Address: [address] [place] [address] Name: Cassidy Masters RN Position: [facility] RN Member Role: Primary Care Nurse Name: Juancarlos Valente RN Position: [facility] Hospital Med Spec Member Role: Primary Care Nurse Care Team Related Persons Name: CHELSEY SYLVIA Address: home [address] [place] [address] Name: GAGE HUNT Address: home [address] [place] [address] Name: JOCELYN HUNT Address: home [address] [place] [address]
--- OUTSIDE RECORDS SUMMARY | 2024-05-24 04:42 | XMS_ITS | Continuity of Care Document ---
Author Organization [facility] Address [address] [place] [address]- Care Team Providers Care Image Scientist Name Role Phone Alonzo Esposito MD Primary Care Physician Encounter [facility] Date(s): 11/30/23 - 01/06/[address] [address]- Attending Physician: Parish Bower OD Admitting Physician: [...] influenza virus vaccine, inactivated 12/06/15 Give n [id number] 12y+ bivalent booster vax 11/03/22 Given SARS-CoV-2 mRNA (euaqbhv-ugjp-ymqhu) vax 01/26/22 Given SARS-CoV-2 mRNA (pbboege-rggq-lgnme) vax 12/28/21 Given pneumococcal 23-valent vaccine 04/08/18 Recorded pneumococcal 23-valent vaccine 04/22/17 Recorded pneumococcal 23-valent vaccine 12/21/12 Given 1Result Comment: [facility] Medications aspirin 81 mg oral delayed release tablet 81 mg, By Mouth, Daily, # 30 tablet, Refills 11, Tot. Refills 11, Maintenance, 09/12/23 17:42:00 EST, Route to Pharmacy Electronically, [facility] [id number], For blister pack please., 166, cm, 09/12/23 13:54:00 EST, Height, 9... Start Date: 09/12/23 Status: Ordered atorvastatin 40 mg oral tablet 1 tablet = 40 mg, By Mouth, Daily, # 30 tablet, 11 Refills, Maintenance, 09/12/23 17:42:00 EST, Tablet, [facility] [id number], For blister pack please., 166, cm, 09/12/23 13:54:00 EST, Height, 93, kg, 09/06/23 16:15:00 EST, .. Start Date: 09/12/23 Stop Date: 09/06/24 Status: Ordered diclofenac 1% topical gel 1 application, Topically, 4 times a day, PRN Pain , Mild, not to exceed 16 grams/day/single joint of lower extremities, # 100 Gm, 3 Refills, Maintenance, 11/30/23 9:43:00 EST, Gel, [facility]/pharmacy #[id number], Partial fill upon patient request if the prescript... Start Date: 11/30/23 Status: Ordered FLUoxetine 20 mg oral capsule 60 mg, 3, capsule, By Mouth, Daily, TAKE 3 CAPSULES BY MOUTH EVERY DAY IN THE MORNING, # 90 capsule, Refills 11, Tot. Refills 11, Maintenance, 09/12/23 17:44:00 EST, Route to Pharmacy Electronically,[facility] [id number], for... Start Date: 09/12/23 Status: Ordered gabapentin 600 mg oral tablet = 600 mg, By Mouth, 2 times a day, # 60 tablet, 4 Refills, Maintenance, 11/30/23 9:35:00 EST, Tablet, [facility] #[id number], Partial fill upon patient request if the prescription is for a schedule II opioid drug.Please note dose change for pill pack., 16... Start Date: 11/30/23 Status: Ordered nitroglycerin 0.4 mg sublingual tablet 1 tablet = 0.4 mg, Sublingual, Every 5 minutes, PRN Chest Pain, # 100 tablet, 0 Refills, Maintenance, 06/08/23 16:23:00 EDT, Tablet, [facility]/pharmacy #[id number], Partial fill upon patient request if the prescription is for a schedule II opioid drug., 165, cm,... Start Date: 06/08/23 Status: Ordered oxyCODONE 15 mg oral tablet 1 tablet = 15 mg, By Mouth, Every 6 hours, PRN Pain , Severe, controlled substance agreement., # 120 tablet, 0 Refills, Maintenance, 12/31/23 10:02:00 EDT, Tablet, [facility]/pharmacy #[id number], Partial fill upon patient request if the prescription is for a sche... Start Date: 12/31/23 Status: Ordered propranolol 20 mg oral tablet 2, tablet, By Mouth, 2 times a day, # 120 tablet, Refills 11, Tot. Refills 11, Maintenance, 09/12/23 17:42:00 EST, Route to Pharmacy Electronically, [facility] [id number], For blister pack please., 166, cm, 09/12/23 13:54:00 E... Start Date: 09/12/23 Status: Ordered risperiDONE 2 mg oral tablet 4 mg, 2, tablet, By Mouth, Daily at bedtime, Rx'd by psychiatry, # 60 tablet, Refills 11, Tot. Refills 11, Maintenance, 09/12/23 17:44:00 EST, Route to Pharmacy Electronically, [facility] [id number], for blister pack, 166, cm... Start Date: 09/12/23 Status: Ordered traZODone 100 mg oral tablet 50 mg, 0.5, tablet, By Mouth, Daily at bedtime, # 15 tablet, Refills 11, Tot. Refills 11, Maintenance, 09/12/23 17:44:00 EST, Route to Pharmacy Electronically, [facility] [id number], Partial fill upon patient request if the [...] Active Right knee pain Confirmed Active Health halfway, active care coordination [facility] [phone] Confirmed Active Cervical stenosis of spine Confirmed Active Fatty infiltration of liver Confirmed Active Tubular adenoma of colon Confirmed Active 1history of this with surgical correction Social History Social History Type Response Smoking Status Former smoker; Other : Quit 2014; entered on: 09/10/17 Sex Patient Care team information Care Team Personnel Name: Elvia Collins RN Position: [facility] RN Member Role: Primary Care Nurse Name: Macarena Lewis RN Position: [facility] RN Member Role: Primary Care Nurse Name: Mallory Lugo RN Position: [facility] RN Member Role: Primary Care Nurse Name: Carmen Gao RN Position: [facility] ED RN W/OE and Tasks Member Role: Primary Care Nurse Name: Dacia Evangelista RN Position: [facility] RN Member Role: Primary Care Nurse Name: Tracey Linares RN Position: [facility] AMB Nurse Member Role: Primary Care Nurse Name: Italia Ortega RN Position: [facility] RN Member Role: Primary Care Nurse Name: Catalina He RN Position: [facility] AMB Nurse Member Role: Primary Care Nurse Name: Cortez Golden RN Position: [facility] RN Member Role: Primary Care Nurse Name: Jessica Lantigua RN Position: [facility] SN RN Member Role: Primary Care Nurse Name: Catalina Pack RN Position: [facility] SN RN Member Role: Primary Care Nurse Name: Clifford Gerber RN Position: [facility] RN Member Role: Primary Care Nurse Name: Doris Butler RN Position: [facility] RN Member Role: Primary Care Nurse Name: Aziza Poole RN Position: [facility] RN Member Role: Primary Care Nurse Name: Katheryn Wu RN Position: [facility] SN RN Member Role: Primary Care Nurse Name: Doris Dee RN Position: [facility] RN Member Role: Primary Care Nurse Name: Janae Soto RN Position: [facility] RN Member Role: Primary Care Nurse Name: Daphney Echols LPN Position: [facility] RN Member Role: Primary Care Nurse Name: Nini Odonnell RN Position: [facility] RN Member Role: Primary Care Nurse Name: Jennifer Thakkar RN Position: [facility] RN Member Role: Primary Care Nurse Name: Hyun Ochoa RN Position: [facility] RN Member Role: Primary Care Nurse Name: Yazmin Lay RN Position: [facility] RN Member Role: Primary Care Nurse Name: Ranjana Zavala RN Position: [facility] RN Member Role: Primary Care Nurse Name: Melvi Carter RN Position: [facility] OB RN Member Role: Primary Care Nurse Name: Jackson Rosen RN Position: [facility] RN Member Role: Primary Care Nurse Name: Clarissa Rodriguez RN Position: [facility] RN Supv Member Role: Primary Care Nurse Name: Ophelia Marie RN Position: [facility] RN Member Role: Primary Care Nurse Name: Nolvia Mendes RN Position: [facility] RN Member Role: Primary Care Nurse Name: Tyrone Germain RN Position: [facility] RN Member Role: Primary Care Nurse Name: Adi Rees RN Position: [facility] RN Member Role: Primary Care Nurse Name: Alonzo Esposito MD Position: [facility] Physician - Primary Care Member Role: PCP Address: Address: [address] [place] [address]- [place] Name: Doroteo Morrow RN Position: [facility] RN Member Role: Primary Care Nurse Address: Address: [address] [place] [address]- Name: Cassidy Masters RN Position: [facility] RN Member Role: Primary Care Nurse Name: Ambrosio GOLDEN, Juancarlos Position: [facility] Hospital Nuclear Plant Equipment Operator Member Role: Primary Care Nurse Name: Tran Wiseman RN Position: [facility] RN Member Role: Primary Care Nurse Care Team Related Persons Name: LETI BARBOSAA Address: [address] [address] Name: GAGE HUNT Address: [address], [place] [address] Name: JOCELYN HUNT Address: home [address] [place] [address]
--- OUTSIDE RECORDS SUMMARY | 2024-05-24 04:43 | XMS_ITS | Continuity of Care Document ---
Author Organization [facility] Address [address] [place] [address]- Care Team Providers Care Backshoe Person Name Role Phone Dawna Hernandez MD Primary Care Physician [phone] Encounter [facility] Date(s): 11/27/22 - 12/27/[address] [address] Attending Physician: Lori Patton Admitting Physician: Lori Patton Referring Physician: Lori Patton Referring Physician: Jonna Graham Allergies, Adverse Reactions, Alerts Substance Reaction Severity Status lisinopril Angioedema Active Shrimp Active Immunizations Given and Recorded Vaccine Date Status Refusal Reason [id number] 12y+ bivalent booster vax 11/03/22 Given influenza virus vaccine, inactivated 11/03/22 Give n influenza virus vaccine, inactivated 02/15/22 Give n influenza virus vaccine, inactivated 09/01/20 Give n influenza virus vaccine, inactivated 09/15/19 Give n influenza virus vaccine, inactivated 11/19/18 Give n influenza virus vaccine, inactivated 09/10/17 Give n influenza virus vaccine, inactivated 12/06/15 Give n SARS-CoV-2 mRNA (oyluvhq-yxkt-hruej) vax 01/26/22 Given SARS-CoV-2 mRNA (fwwmzmy-haah-hkpzn) vax 12/28/21 Given tetanus/diphtheria/pertussis, acel(Tdap) 03/29/19 Given [...] 3 Refills, Maintenance, 05/11/22 14:22:00 EDT, Tablet, [facility]/pharmacy #[id number], Partial [...] tablet, 1 Refills, Maintenance, 04/05/22 7:53:00 EDT, [facility]/pharmacy #[id number], 165, cm, 02/15/22 10:35:00 [...] 15:26:00 EDT, [facility] STORE [id number], 10, APPLY 1 PATCH DAILY NEEDED FOR [...] 1 Refills, Maintenance, 12/01/22 11:59:00 EST, ECCapsule, [facility]/pharmacy #[id number], Partial fill [...] Refills, Maintenance, 12/01/22 12:02:00 EST, ER Tablet, [facility]/pharmacy #[id number], [...] tablet, Refills 5, Route to Pharmacy Electronically, [facility] [id number], 166, cm, 12/28/21 10:33:00 EDT, Height, 91.9, [...] EST, Supply Start Date: 12/12/22 Status: Ordered Test Center Manager Test Center Manager, See Instructions, # 1 each, Refills [...] each, 0 Refills, Maintenance, 12/12/22 12:14:00 EST, [facility] STORE 74933, 175, cm, 11/15/22 9:07:00 EST, Height, 88.2, [...] Health retirement, active care coordination Netta [facility] [phone] Confirmed Active Fatty infiltration of liver Confirmed [...] Name: Dacia Evangelista RN Position: [facility] RN Member Role: Primary Care Nurse Name: Tracey Linares RN Position: [facility] PCO RN Member Role: Primary Care Nurse Name: Italia Ortega RN Position: [facility] RN Member Role: Primary Care Nurse Name: Catalina He RN Position: [facility] AMB Nurse Member Role: Primary Care Nurse Name: Cortez Golden RN Position: [facility] RN Member Role: Primary Care Nurse Name: Jessica Lantigua RN Position: [facility] SN RN Member Role: Primary Care Nurse Name: Clifford Gerber RN Position: [facility] RN Member Role: Primary Care Nurse Name: Peter Monahan RN Position: [facility] RN Member Role: Primary Care Nurse Name: Aziza Poole RN Position: [facility] RN Member Role: Primary Care Nurse Name: Monet Miller RN Position: [facility] RN Member Role: Primary Care Nurse Name: Katheryn Wu RN Position: [facility] RN Member Role: Primary Care Nurse Name: Doris Dee RN Position: [facility] RN Member Role: Primary Care Nurse Name: Janae Soto RN Position: [facility] RN Member Role: Primary Care Nurse Name: Hyun Ochoa RN Position: [facility] RN Member Role: Primary Care Nurse Name: Nancy Magana RN Position: [facility] RN Member Role: Primary Care Nurse Name: Ranjana Zavala RN Position: [facility] RN Member Role: Primary Care Nurse Name: Melvi Carter RN Position: [facility] OB RN Member Role: Primary Care Nurse Name: Jackson Rosen RN Position: [facility] RN Member Role: Primary Care Nurse Name: Clarissa Rodriguez RN Position: [facility] RN Suptasha Member Role: Primary Care Nurse Name: Ophelia Marie RN Position: [facility] RN Member Role: Primary Care Nurse Name: Nolvia Mendes RN Position: [facility] RN Member Role: Primary Care Nurse Name: Adi Rees RN Position: [facility] RN Member Role: Primary Care Nurse Name: Catalina Torres RN Position: [facility] RN Member Role: Primary Care Nurse Name: Doroteo Morrow RN Position: [facility] RN Member Role: Primary Care Nurse Address: Address: [address] [place] [address] Name: Cassidy Masters RN Position: [facility] RN Member Role: Primary Care Nurse Name: Ambrosio GOLDEN, Juancarlos Position: [facility] Hospital Airplane Charter Clerk Member Role: Primary Care Nurse Name: Dawna Hernandez MD Position: [facility] Primary Care Physician Member Role: PCP Address: Address: [address] [place] [address]- [place] Care Team Related Persons Name: SYLVIA BARBOSA Address: [address] [address] Name: GAGE HUNT Address: [address] [place] [address] Name: JOCELYN HUNT Address: home [address] [place] [address]
--- OUTSIDE RECORDS SUMMARY | 2024-05-24 04:43 | XMS_ITS | Continuity of Care Document ---
Author Organization [facility] Address [address] [place] [address] Donald ness, [address] [place] [address]- Care Team Providers Care Drive Away Driver Name Role Phone Alonzo Esposito MD Primary Care Physician [phone] Encounter [facility] Date(s): 09/05/23 - 10/05/23 [facility] [address] [place] [address] Drive, [address] [place], [place] [address] Allergies, Adverse Reactions, Alerts [...] influenza virus vaccine, inactivated 12/06/15 Give n [id number] 12y+ bivalent booster vax 11/03/22 Given SARS-CoV-2 mRNA (wmjhvqd-oott-nttxr) vax 01/26/22 Given SARS-CoV-2 mRNA (ciindjt-quoe-oyhlu) vax 12/28/21 Given tetanus/diphtheria/pertussis, acel(Tdap) 03/29/19 Given tetanus/diphtheria/pertussis, acel(Tdap) 09/10/17 Given pneumococcal 23-valent vaccine 04/08/18 Recorded pneumococcal 23-valent vaccine 04/22/17 Recorded pneumococcal 23-valent vaccine 12/21/12 Given Medications aspirin 81 mg oral delayed release tablet 81 mg, By Mouth, Daily, # 30 tablet, Refills 11, Tot. Refills 11, Maintenance, 11/29/23 17:42:00 EST, Route to Pharmacy Electronically, [facility] [id number], For blister pack please., 166, cm, 09/12/23 13:54:00 EST, Height, 9... Start Date: 09/12/23 Status: Ordered atorvastatin 40 mg oral tablet 1 tablet = 40 mg, By Mouth, Daily, # 30 tablet, 11 Refills, Maintenance, 09/12/23 17:42:00 EST, Tablet, [facility] [id number], For blister pack please., 166, cm, 09/12/23 13:54:00 EST, Height, 93, kg, 09/06/23 16:15:00 EST, DrMicheal.. Start Date: 09/12/23 Stop Date: 09/06/24 Status: Ordered chlorhexidine topical 0.12% liquid See Instructions, SWISH AND SPIT DO NOT SWALLOW. USE 3-4 X/ DAY, # 473 mL, 0 Refills, Maintenance, 09/25/23 16:56:00 EST, [facility] STORE [id number], 30, SWISH AND SPIT DO NOT SWALLOW. USE 3-4 X/ DAY, 166, cm, 09/21/23 11:32:00 EST, Height, 93, kg, 09/14/23 12:3... Start Date: 09/25/23 Status: Ordered docusate sodium 100 mg oral tablet 1 tablet = 100 mg, By Mouth, 2 times a day, PRN for constipation, # 60 tablet, 0 Refills, Maintenance, 09/27/23 13:27:00 EST, Tablet, [facility]/pharmacy #[id number], Partial fill upon patient request if the prescription is for a schedule II opioid drug., 166, cm,... Start Date: 09/27/23 Status: Ordered FLUoxetine 20 mg oral capsule 60 mg, 3, capsule, By Mouth, Daily, TAKE 3 CAPSULES BY MOUTH EVERY DAY IN THE MORNING, # 90 capsule, Refills 11, Tot. Refills 11, Maintenance, 09/12/23 17:44:00 EST, Route to Pharmacy Electronically,[facility] [id number], for... Start Date: 09/12/23 Status: Ordered gabapentin 300 mg oral capsule 300 mg, 1, capsule, By Mouth, 2 times a day, # 60 capsule, Refills 11, Tot. Refills 11, Maintenance, 09/12/23 17:42:00 EST, Route to Pharmacy Electronically, [facility] [id number], For blister pack please., 166, cm, 09/12/23 1... Start Date: 09/12/23 Status: Ordered nitroglycerin 0.4 mg sublingual tablet 1 tablet = 0.4 mg, Sublingual, Every 5 minutes, PRN Chest Pain, # 100 tablet, 0 Refills, Maintenance, 06/08/23 16:23:00 EDT, Tablet, [id number] Partial fill upon patient request if the prescription is for a schedule II opioid drug., 165, cm,... Start Date: 06/08/23 Status: Ordered oxyCODONE 15 mg oral tablet 1 tablet = 15 mg, By Mouth, Every 6 hours, PRN Pain , Severe, controlled substance agreement. adjusting dose back to previous dose., # 120 tablet, 0 Refills, Maintenance, 09/24/23 12:55:00 EST, Tablet, [id number] Partial fill upon patient req... Start Date: 09/24/23 Status: Ordered propranolol 20 mg oral tablet 2, tablet, By Mouth, 2 times a day, # 120 tablet, Refills 11, Tot. Refills , Maintenance, 09/12/23 17:42:00 EST, Route to Pharmacy Electronically, [facility] [id number], For blister pack please., 166, cm, 09/12/23 13:54:00 E... Start Date: 09/12/23 Status: Ordered risperiDONE 2 mg oral tablet 4 mg, 2, tablet, By Mouth, Daily at bedtime, Rx'd by psychiatry, # 60 tablet, Refills 11, Tot. Refills , Maintenance, 09/12/23 17:44:00 EST, Route to Pharmacy Electronically, [facility] [id number], for blister pack, 166, cm... Start Date: 09/12/23 Status: Ordered tiZANidine 2 mg oral tablet 2 mg, 1, tablet, By Mouth, 3 times a day, Can take two tablets at bedtime. Do not take at the same time as oxycodone., # 90 tablet, Refills 0, Tot. Refills 0, Maintenance, 09/26/23 10:38:00 EST, Route to Pharmacy Electronically, [facility]/pharmacy #[id number], Sp... Start Date: 09/26/23 Status: Ordered traZODone 100 mg oral tablet 50 mg, 0.5, tablet, By Mouth, Daily at bedtime, # 15 tablet, Refills 11, Tot. Refills 11, Maintenance, 09/12/23 17:44:00 EST, Route to Pharmacy Electronically, [facility] [place] [place] - [id number], Partial fill upon patient request if the pr... Start Date: 09/12/23 Status: Ordered Ventolin HFA 108 mcg/inh inhalation aerosol with adapter 2 puffs, Inhalation, 4 times a day, PRN NEEDED FOR WHEEZING, # 18 Gm, 11 Refills, Maintenance, 02/22/23 8:17:00 EDT, [facility]/pharmacy #[id number], 166, cm, 01/18/23 15:56:00 EDT, [...] Health assisted, active care coordination PADMINI [facility] [phone] Confirmed Active Fatty infiltration of liver Confirmed [...] Primary Care Nurse Name: Sima RNCarmen Position: [facility] ED RN W/OE and Tasks Member Role: Primary Care Nurse Name: Dacia Evangelista RN Position: [facility] RN Member Role: Primary Care Nurse Name: Tracey Linares RN Position: [facility] AMB Nurse Member Role: Primary Care Nurse Name: Italia Ortega RN Position: [facility] RN Member Role: Primary Care Nurse Name: Catalina He RN Position: [facility] AMB Nurse Member Role: Primary Care Nurse Name: Jessica Lantigua RN Position: [facility] SN RN Member Role: Primary Care Nurse Name: Catalina Pack RN Position: [facility] SN RN Member Role: Primary Care Nurse Name: Clifford Gerber RN Position: [facility] RN Member Role: Primary Care Nurse Name: Doris Butler RN Position: [facility] RN Member Role: Primary Care Nurse Name: Aziza Poole RN Position: [facility] RN Member Role: Primary Care Nurse Name: Monet Miller RN Position: [facility] RN Member Role: Primary Care Nurse Name: Katheryn Wu RN Position: [facility] SN RN Member Role: Primary Care Nurse Name: Doris Dee RN Position: [facility] RN Member Role: Primary Care Nurse Name: Janae Soto RN Position: [facility] RN Member Role: Primary Care Nurse Name: Daphney Echols LPN Position: [facility] RN Member Role: Primary Care Nurse Name: Nini Odonnell RN Position: [facility] RN Member Role: Primary Care Nurse Name: Jennifer Thakkar RN Position: [facility] RN Member Role: Primary Care Nurse Name: Hyun Ochoa RN Position: [facility] RN Member Role: Primary Care Nurse Name: Yazmin Lay RN Position: [facility] RN Member Role: Primary Care Nurse Name: Nancy Magana RN Position: [facility] RN Member Role: Primary Care Nurse Name: Ranjana Zavala RN Position: [facility] RN Member Role: Primary Care Nurse Name: Melvi Carter RN Position: [facility] OB RN Member Role: Primary Care Nurse Name: Jackson Rosen RN Position: [facility] RN Member Role: Primary Care Nurse Name: Clarissa Rodriguez RN Position: [facility] RN Supv Member Role: Primary Care Nurse Name: Ophelia Marie RN Position: [facility] RN Member Role: Primary Care Nurse Name: Nolvia Mendes RN Position: [facility] RN Member Role: Primary Care Nurse Name: Tyrone Germain RN Position: [facility] RN Member Role: Primary Care Nurse Name: Adi Rees RN Position: [facility] RN Member Role: Primary Care Nurse Name: Orlando Mcallister RN Position: [facility] RN Member Role: Primary Care Nurse Name: Alisa Mcallister RN Position: [facility] RN Member Role: Primary Care Nurse Name: Alonzo Esposito MD Position: [facility] Physician - Primary Care Member Role: PCP Address: Address: [address] [place] [address]- [place] Name: Doroteo Morrow RN Position: [facility] RN Member Role: Primary Care Nurse Address: Address: [address] [place] [address]- Name: Cassidy Masters RN Position: [facility] RN Member Role: Primary Care Nurse Name: Juancarlos Valente RN Position: [facility] Early Learning Teacher Member Role: Primary Care Nurse Name: Tran Wiseman RN Position: [facility] RN Member Role: Primary Care Nurse Care Team Related Persons Name: SYLVIA BARBOSA Address: [address] [place] [address] Name: GAGE HUNT Address: [address] [place] [address] Name: JOCELYN HUNT Address: [address] [place] [address]
--- OUTSIDE RECORDS SUMMARY | 2024-05-24 04:43 | XMS_ITS | Continuity of Care Document ---
Author Organization [facility] Address [address] [place] [address]- Care Team Providers Care Computer Systems Support Specialist Name Role Phone Dawna Hernandez MD Primary Care Physician [phone] Encounter [facility] R [id number] Date(s): 08/23/22 - 10/21/[address] [address]- Attending Physician: Dawna Hernandez MD Admitting Physician: [...] vaccine, inactivated 12/06/15 Give n SARS-CoV-2 mRNA (bwdssub-vdmz-[id number]) vax 01/26/22 Given SARS-CoV-2 mRNA (sooolas-hyft-obwzl) vax 12/28/21 Given tetanus/diphtheria/pertussis, acel(Tdap) 03/29/19 Given tetanus/diphtheria/pertussis, acel(Tdap) 09/10/17 Given pneumococcal 23-valent vaccine 04/08/18 Recorded pneumococcal 23-valent vaccine 04/22/17 Recorded pneumococcal 23-valent vaccine 12/21/12 Given Medications albuterol CFC free 90 mcg/inh inhalation aerosol 2, puffs, Inhalation, Every 6 hours, PRN, # 1 each, Refills 6, Tot. Refills 6, Maintenance, 08/07/22 17:48:00 EDT, Aerosol, Route to Pharmacy Electronically, [id number], [facility]/pharmacy #[id number], 165, cm, 08/02/22 5:50:00 EDT, [...] 3 Refills, Maintenance, 05/11/22 14:22:00 EDT, Tablet, [facility]/pharmacy #[id number], [...] tablet, 1 Refills, Maintenance, 04/05/22 7:53:00 EDT, [facility]/pharmacy #[id number], 165, cm, 02/15/22 10:35:00 EDT, Height, 90.7, kg, 02/06/22 19:49:00 EDT, Dry Weight Start Date: 04/05/22 Status: Ordered Colace sodium 100 mg oral capsule 100 mg, 1, capsule, By Mouth, 2 times a day, PRN, # 20 capsule, Refills 0, Tot. Refills 0, Maintenance, for constipation, 09/22/22 9:53:00 EST, Route to Pharmacy Electronically, [facility] [...] tablet, 11 Refills, Maintenance, 06/15/22 17:40:00EDT, Tablet, [facility]/pharmacy #[id number], Partial fill upon patient request if the prescription is for a schedule II opioid drug., 165, cm, 06/15/22 14:29:00 ED... Start Date: 06/15/22 Status: Ordered ibuprofen 600 mg oral tablet 600 mg, 1, tablet, By Mouth, 3 times a day, # 90 tablet, Refills 0, Tot. Refills 0, Maintenance, 09/06/22 21:10:00 EST, Route to Pharmacy Electronically, [facility] [...] patch, 0 Refills, Maintenance, 07/20/22 15:26:00 EDT, [facility] STORE [id number], 10, APPLY 1 PATCH DAILY NEEDED FOR MODERATE PAIN..REMOVE AFTER 12... Start Date: 07/20/22 Status: Ordered oxyCODONE 15 mg oral tablet 1 tablet = 15 mg, By Mouth, Every 6 hours, [facility], 0 Refills, Acute 11/14/22 17:13:00 EST, 10/17/22 17:13:00 EST, [facility]/pharmacy #[id number], Partial fill [...] tablet, Refills 5, Route to Pharmacy Electronically, [id number], 166, cm, 12/28/21 10:33:00 EDT, Height, 91.9, [...] 0 Refills, Maintenance, 10/17/22 17:13:00 EST, Aerosol, [facility]/pharmacy #[id number], Partial fill upon patient request if the [...] Active Health skilled nursing, active care coordination Netta Nancy [facility] [phone] Confirmed Active Fatty infiltration of liver Confirmed Active Tubular adenoma of colon Confirmed Active Social History Social History Type Response Smoking Status Former smoker; Other : Quit 2014; entered on: 09/10/17 Sex Patient Care team information Care Team Personnel Name: Macarena Lewis RN Position: [facility] RN Member Role: Primary Care Nurse Name: Mallory Lugo RN Position: [facility] RN Member Role: Primary Care Nurse Name: Carmen Gao RN Position: [facility] RN Member Role: Primary Care Nurse Name: Dacia Evangelista RN Position: [facility] RN Member Role: Primary Care Nurse Name: Tracey Linares [facility] RN Member Role: Primary Care Nurse Name: Italia Ortega RN Position: [facility] RN Member Role: Primary Care Nurse Name: Catalina He [facility] RN Member Role: Primary Care Nurse Name: Jessica Lantigua RN Position: [facility] SN RN Member Role: Primary Care Nurse Name: Clifford Gerber RN Position: [facility] RN Member Role: Primary Care Nurse Name: Peter Monahan RN Position: [facility] RN Member Role: Primary Care Nurse Name: Aziza Poole RN Position: [facility] RN Member Role: Primary Care Nurse Name: Monet Miller RN Position: [facility] RN Member Role: Primary Care Nurse Name: Katheryn Wu RN Position: [facility] RN Member Role: Primary Care Nurse Name: Doris Dee RN Position: [facility] RN Member Role: Primary Care Nurse Name: Janae Soto RN Position: [facility] RN Member Role: Primary Care Nurse Name: Hyun Ochoa RN Position: [facility] RN Member Role: Primary Care Nurse Name: Nancy Magana RN Position: [facility] RN Member Role: Primary Care Nurse Name: Ranjana Zavala RN Position: [facility] RN Member Role: Primary Care Nurse Name: Melvi Carter RN Position: [facility] OB RN Member Role: Primary Care Nurse Name: Jackson Rosen RN Position: [facility] RN Member Role: Primary Care Nurse Name: Clarissa Rodriguez Position: [facility] RN Supv Member Role: Primary Care Nurse Name: Ophelia Marie RN Position: [facility] RN Member Role: Primary Care Nurse Name: Nolvia Mendes RN Position: [facility] RN Member Role: Primary Care Nurse Name: Adi Rees RN Position: [facility] RN Member Role: Primary Care Nurse Name: Catalina Torres RN Position: [facility] RN Member Role: Primary Care Nurse Name: Doroteo Morrow RN Position: [facility] RN Member Role: Primary Care Nurse Address: Address: [address] [place] [address]- Name: Cassidy Masters RN Position: [facility] RN Member Role: Primary Care Nurse Name: Juancarlos Valente RN Position: [facility] Muck Boss Member Role: Primary Care Nurse Name: Dawna Hernandez MD Position: [facility] Primary Care Physician Member Role: PCP Address: Address: [address] [place] [address]- Care Team Related Persons Name: SYLVIA BARBOSA Address: home [address] [place] [id number] Name: GAGE HUNT Address: [address] [place] [address] Name: JOCELYN HUNT Address: [address] [place] [address]
[2024-05-24 05:09] VITALS: BP 115/80; PULSE 68; RESP 16; TEMP 36.9; O2SAT 98
--- NOTE | 2024-05-24 06:47 | ED_ITS ---
HPI - General Adult General Chief complaint: General Medical Stated complaint: side pain, burning sensation in legs, diarrhea Time Seen by Provider: 05/24/24 06:41 Source: patient Mode of arrival: ambulatory Limitations: no limitations History of Present Illness ED Provider: Gabi Villa PA-C HPI narrative: Patient is a 53 year old assigned male at with a history of HTN, GERD, DM, cauda equina syndrome, chronic back pain on percocet, and HLD presenting to the emergency department today with acute on chronic right sided low back pain. Patient states that he has chronic low back pain that he follows with a pain specialist for however, over the last 3 days, he has had worsening right sided low back pain. Patient states that yesterday, he had an episode of urinary incontinence but since then, he has been able to urinate without issue and has not again urinated on himself. Patient denies any dizziness, lightheadedness, abdominal pain, nausea, vomiting, fever, chills, blurry vision, double vision, loss of vision, chest pain, difficulty breathing, shortness of breath, night sweats, pain with urination, increased urinary frequency, increased urinary urgency, blood in his urine or stool, syncope or a near syncopal episode, recent trauma or falls, bowel incontinence, or any other complaints at this time. Onset (ago): day(s) (3) Location: back Severity: moderate Severity scale (1-10): 6 Quality: aching Pain Consistency: constant Relieving factors: none Exacerbating factors: none Treatments prior to arrival: none Related Data Home Medications ?Medication ?Instructions ?Recorded ?Confirmed fluoxetine 20 mg capsule 60 mg PO DAILY 05/14/21 05/19/21 prazosin 2 mg capsule 2 mg PO BEDTIME 05/14/21 05/19/21 risperidone 4 mg tablet 4 mg PO BEDTIME 05/14/21 05/19/21 Previous Rx's ?Medication ?Instructions ?Recorded aspirin 81 mg tablet,delayed 81 mg PO DAILY #30 tabs 05/19/21 release heparin (porcine) 25,000 unit/250 25,000 unit (250 mL) continuous IV 05/19/21 mL in 0.45 % sodium chloride IV infusion .Q0M #250 mL soln cyclobenzaprine 10 mg tablet 10 mg PO BEDTIME PRN muscle spasm 12/04/21 #14 tabs oxycodone 5 mg tablet 5 mg PO Q8H PRN pain #10 tabs 12/04/21 oxycodone 5 mg tablet 5 mg PO Q8H PRN pain #10 tabs 12/04/21 cyclobenzaprine 10 mg tablet 10 mg PO TID PRN muscle spasm #10 01/06/22 tabs ibuprofen 600 mg tablet 600 mg PO Q6H PRN pain #14 tabs 01/06/22 cyclobenzaprine 5 mg tablet 5 mg PO BEDTIME PRN muscle spasm 06/20/22 #4 tabs ketorolac 10 mg tablet 10 mg PO Q6H PRN pain 5 days #20 06/20/22 tabs ciprofloxacin HCl 250 mg tablet 250 mg PO Q12H 7 days #14 tabs 08/21/22 oxycodone 5 mg capsule 5 mg PO TID PRN pain 3 days #9 caps 08/21/22 prednisone 20 mg tablet 40 mg (2 x 20 mg) PO DAILY 5 days 08/21/22 #10 tabs prednisone 20 mg tablet 20 mg PO DAILY 12 days #26 tabs 05/24/24 Allergies Allergy/AdvReac Type Severity Reaction Status Date / Time lisinopril [LISINOPRIL] Allergy Severe ANGIOEDEMA Verified 05/24/24 01:04 Review of Systems 2 Constitutional: Constitutional: Reports no additional constitutional complaints, Denies chills, Denies fever(s) and Denies night sweats Eyes: Eyes: Reports no additional eye complaints, Denies blurry vision, Denies change in vision, Denies diplopia, Denies eye discharge, Denies loss of vision and Denies eye pain ENT: Denies dizziness Cardiovascular: Cardiovascular: Reports no additional cardiovascular complaints, Denies chest pain, Denies lightheadedness, Denies Loss of Consciousness and Denies dyspnea Respiratory: Respiratory: Reports no additional respiratory complaints and Denies dyspnea Gastrointestinal: Gastrointestinal: Reports no additional gastrointestinal complaints, Denies abdominal pain, Denies melena, Denies hematochezia, Denies change in bowel habits and Denies change in stool character Genitourinary: Genitourinary: Reports no additional male genitourinary complaints, Denies hematuria, Denies oliguria, Denies difficulty urinating, Denies dysuria, Denies urinary frequency, Denies urinary hesitancy, Reports urinary incontinence (1 episode on 05/23/2024) and Denies urinary urgency Musculoskeletal: Musculoskeletal: Reports no additional musculoskeletal complaints, Denies numbness and Denies tingling Comments: back pain Neurologic: Denies dizziness, Denies loss of vision, Denies numbness and Denies tingling Psychiatric: Psychiatric: Reports no additional psychiatric complaints Endocrine: Endocrine: Reports no additional endocrine complaints Hematologic/Lymphatic: Hematologic/Lymphatic: Reports no additional hematologic/lymphatic complaints Allergic/Immunologic: Allergic/Immunologic: Reports no additional allergic/immunologic complaints [facility] Past Medical History Attestation statement: The following information was validated with the patient. Source: old records reviewed and nursing notes reviewed Medical History Lumbar radiculopathy Tubular adenoma of colon Obstructive sleep apnea Migraines Illiteracy Hyperlipidemia HTN (hypertension) GERD (gastroesophageal reflux disease) Fatty infiltration of liver Diabetes Depression COVID-19 Chronic neck pain Cervical stenosis of spine Cauda equina syndrome Slipped intervertebral disc Arthritis High cholesterol Social History Social History Alcohol intake: current Alcohol intake frequency: holidays/special occasions only Patient Tobacco Use Status: Never used Tobacco Smoked in Last 30 Days: No Use of substances other than those prescribed or required for medical reasons: No Advance Directives: No Advance Directives Information Provided: No Advance Directives Date on File: 05/14/21 service: No Current occupational status: unemployed Physical Exam ED Vital Signs: Vital Signs - 24 hr 05/24/24 00:56 05/24/24 05:09 05/24/24 08:11 Temperature 98.3 F 98.5 F Pulse Rate 91 68 77 Respiratory Rate 20 16 16 Blood Pressure 129/86 115/80 120/74 Pulse Oximetry 97 98 98 Oxygen Delivery Method Room Air Room Air Room Air BMI result Body Mass Index 28.3 Const General: cooperative, no acute distress, alert and awake Nutritional Appearance: well nourished Orientation/consciousness: patient oriented x3 Limitations: no limitations HENMT Head: Yes normal to inspection and Yes atraumatic Ears: hearing grossly normal bilaterally and external ears normal General nose exam: Normal external nose present, no nasal discharge noted and no epistaxis Face and sinus: Yes normal facial exam, No abrasion and No laceration Mouth: Normal oral and palatal mucosa present, no drooling and no muffled voice Eyes General: appearance normal, both eyes and all related structures Periorbital: periorbital findings normal Eyelids: Yes eyelids normal Conjunctivae: conjunctivae normal Pupils: Equal, round and reactive pupils present EOM: EOMs intact bilaterally Neck Neck: Yes normal visual inspection, Yes full ROM and Yes no lymphadenopathy Chest Chest palpation & inspection: normal inspection of the chest Resp Effort & Inspection: normal respiratory effort and able to speak in complete sentences GI Inspection: Yes normal to inspection Neuro General: patient oriented x3 and moves all extremities Cranial nerves: Yes Equal, round and reactive pupils present Cognition (Neuro): normal cognition Extrem General: Yes normal to inspection, Yes full ROM and Yes capillary refill normal Psych Appearance: grossly normal Mental Status: mental status grossly normal Affect: normal affect Attitude: cooperative Thought process: Normal thought process present Thought content: Normal thought content present Insight: Good insight present (Psych) Medications Administered Discontinued Medications Generic Name Dose Route Start Last Admin Trade Name Freq PRN Reason Stop Dose Admin Cyclobenzaprine HCl 5 mg 05/24/24 08:19 05/24/24 08:35 Cyclobenzaprine Hcl 5 Mg Tablet PO 05/24/24 08:20 5 mg ONCE ONE Administration Ketorolac Tromethamine 15 mg 05/24/24 08:26 05/24/24 08:37 Ketorolac Tromethamine 15 Mg/Ml Vial IM 05/24/24 08:27 15 mg ONCE ONE Administration Methylprednisolone Sodium Succinate 60 mg 05/24/24 08:19 05/24/24 08:36 Methylprednisolone Sod Succ 125 Mg/2 Ml Vial IM 05/24/24 08:20 60 mg ONCE ONE Administration Medical Decision Making Medical Decision Making [facility] Narrative: Patient is a 53 year old assigned male at with a history of HTN, GERD, DM, cauda equina syndrome, chronic back pain on percocet, and HLD presenting to the emergency department today with right sided low back pain. Patient's physical exam was unremarkable. Patient's blood work was unremarkable. Patient's urine showed no acute process. Patient's EKG was unremarkable. Patient's post void bladder residual was 0. Patient declined a rectal exam. Patient's lumbar CT showed multilevel degenerative disc disease most notably at L5-S1 that showed right sided paracentral disc protrusion which is producing mass effect on the right S1 nerve in the lateral recess but no evidence of cauda equina. I explained my physical exam findings as well as all test results to the patient. I answered all questions asked by the patient. I staffed this patient with Dr. Chavez who agreed with proposed management of PO steroids, discharge, and outpatient spine follow up. The patient stated that he'd like his note + imaging to present at his next doctors appointment. I stressed the importance of the patient taking his medication as directed (either prescribed or as the over the counter packaging recommends). I stressed the importance of the patient following up with his primary care provider and his fitness specialist. I stressed the importance of the patient returning to the emergency department immediately if his symptoms were to worsen or if he were to develop any dizziness, shortness of breath, difficulty breathing, chest pain, blurry vision, loss of vision, nausea, vomiting, abdominal pain, fever, chills, back pain, or any other complaints. Patient verbalized agreement and understanding with this treatment plan and discharge. Differential Diagnosis Differential Diagnoses: The differential diagnosis associated with the presentation includes Spinal stenosis Disc disease Bulging disc Admission/Observation Consideration of admission/observation: Escalation of care including admission/observation considered Patient would have been admitted to the hospital had his work up had any findings where hospital admission was appropriate and his clinical presentation warranted hospital admission. Lab Data [facility] Lab Attestation statement: I reviewed the patient's lab results. My interpretation of these results are in the [facility] Rationale portion of this note. 05/24/24 01:23 05/24/24 01:23 Labs: Lab Results 05/24/24 Range/Units 01:23 WBC 12.6 H (4.8-10.8) X10*3/uL RBC 5.25 (4.60-5.80) X10*6/uL Hgb 15.1 (14.0-18.0) g/dl Hct 45.7 (42.0-52.0) % MCV 87.0 (80.0-98.0) fL MCH 28.8 (27.0-33.0) pg MCHC 33.0 (31.0-36.0) g/dl RDW 14.8 (11.0-16.0) % Plt Count 262 (160-400) X10*3/uL MPV 10.3 (9.4-12.4) fL Immature Gran % (Auto) 0.9 H (0.0-0.4) % Neut % (Auto) 65.4 (45-73) % Lymph % (Auto) 25.2 (20-40) % [place] % (Auto) 6.2 (2-11) % Eos % (Auto) 2.0 (0-4) % Baso % (Auto) 0.3 (0-2) % Lymph # (Auto) 3.2 (1.2-4.9) X10*3/uL [place] # (Auto) 0.8 (0.1-1.2) X10*3/uL Eos # (Auto) 0.3 (0.0-0.4) X10*3/uL Baso # (Auto) 0.0 (0.0-0.2) X10*3/uL Abs Immat Gran (auto) 0.11 H (0.00-0.03) X10*3/uL Absolute Neuts (auto) 8.2 (2.0-8.3) x10*3/uL Absolute Nucleated RBC 0.000 (0.0-0.012) X10*3/uL Nucleated RBC % (auto) 0.0 (0.0-0.2) /100WBC Sodium 139 (135-145) mmol/L Potassium 3.7 (3.3-5.1) mmol/L Chloride 104 (96-108) mmol/L Carbon Dioxide 24 (22-29) mmol/L Anion Gap 15 (12-20) BUN 17 H (9-16) mg/dL Creatinine 0.89 (0.5-1.4) mg/dL Estim Creat Clear Calc 93.0 Estimated GFR > 60 Random Glucose 176 H (60-115) mg/dL Calcium 9.1 (8.4-10.2) mg/dL Total Bilirubin 0.2 (0.0-1.0) mg/dL AST 11 (5-37) U/L ALT 13 (0-40) U/L Alkaline Phosphatase 121 H (39-117) U/L Troponin I High Sens < 2.7 (<3.5-35.0) ng/L Total Protein 7.5 (6.5-8.0) g/dL Albumin 4.1 (3.5-5.0) g/dL Lipase 62 (8-78) U/L Urine Color Yellow Urine Appearance Clear Urine pH 6.5 (5.0-9.0) Ur Specific [place] >= 1.030 H (1.005-1.025) Urine Protein Negative (Neg-Trace) mg/dL Urine Glucose (UA) Negative (Negative) mg/dL Urine Ketones Trace (Negative) mg/dL Urine Blood Trace H (Negative) Urine Nitrite Negative (Negative) Ur Leukocyte Esterase Negative (Negative) Urine RBC 11-20 H (0-2) /HPF Urine WBC 0-5 (0-5) /HPF Ur Squamous Epith Cells 0-2 (0-2) /HPF Urine Bacteria None Seen (None Seen) Hyaline Casts 0-2 (0-2) /LPF Independent Interpretation I performed an independent interpretation of an: EKG and CT Scan Interpretation: My interpretation is in agreement with the radiologist's impression of this imaging study. - EXAMINATION: CT LUMBAR SPINE WITHOUT CONTRAST CLINICAL INFORMATION: Low back pain. Incontinence. COMPARISON: 08/20/2022 TECHNIQUE: Multidetector volumetric imaging was obtained through the lumbar spine without intravenous contrast material. Multiplanar reformatted images in coronal and sagittal orientations were submitted. This CT examination was performed using dose optimization techniques as appropriate, variously including the following: *Automated exposure control *Adjustment of mA and/or kV according to patient size (this includes techniques or standardized protocols for targeted exams where dose is matched to indication/reason for exam; i.e. extremities or head) *Use of iterative reconstruction technique DLP; 389 mGy-cm FINDINGS: No fractures. Vertebral body heights are normal. Grade 1 retrolisthesis of L5 on S1 measures 4 mm. No additional spondylolisthesis. There is mild degenerative disc disease L5-S1 with endplate osteophytes and mild loss of ventricular disc height. More minimal degenerative disc disease present at other levels, characterized primarily by endplate osteophytes. Severe facet arthropathy is evident on the left at L4-L5 and right at L5-S1. More mild to moderate multilevel facet arthropathy is present at other levels in the lumbar spine. No pars defects. Diffuse disc bulge and facet arthropathy combine to produce rqfr-[id number] central canal narrowing at the L4-L5 level. No critical subchondral canal stenoses. L5-S1, there is a right paracentral disc protrusion which combines with facet arthropathy to produce mass effect upon the traversing right S1 nerve root in the lateral recess. There is multilevel neural foraminal encroachment due to foraminal disc osteophyte complexes and facet arthropathy, most notably on the right at L3-L4, L4-L5, and L5-S1 (L3, L4, and L5 nerve roots) and on the left at L4-L5 (L4 nerve root). Paraspinal soft tissues are unremarkable. CT/CT lumbar spine wo IV con IMPRESSION: 1. No acute fracture or acute malalignment in the lumbar spine. 2. Multilevel degenerative disc disease, most notably at L5-S1 where there is a right paracentral disc protrusion which combines with facet arthropathy to produce mass effect upon the traversing right S1 nerve root in the lateral recess. 3. Multilevel neural foraminal encroachment due to foraminal disc osteophyte complexes and facet arthropathy, most notably on the right at L3-L4, L4-L5, and L5-S1. 4. Fvns-kq-duxlzyrl central canal narrowing at L4-L5. No evidence of critical central canal stenoses which might cause cauda equina syndrome. Dictated By: Onel Hutchinson MD Signed By: Electronically signed by Onel Hutchinson MD 05/24/24 0818 - Vent. Rate: 089 BPM Atrial Rate: 089 BPM P-R Int: 118 ms QRS Dur: 084 ms QT Int: 366 ms P-R-T Axes: 040 010 023 degrees QTc Int: 445 ms Normal sinus rhythm Normal ECG When compared with ECG of 20-AUG-2022 21:53, Previous ECG has undetermined rhythm, needs review DD/ 011 Radiology Impression Discussion of test interpretation with radiology: I have reviewed the radiologist's reading. Chronic Conditions Patient?s care impacted by: Diabetes Discharge Plan Discharge Clinical Impression: Back pain, Pinched nerve Patient Disposition: Home, Self-Care Instructions: Back Pain (ED) Additional Instructions: You are being prescribed a steroid which can elevate your blood sugar - this is normal and to be expected. Follow up with your primary care provider and your fitness specialist. Return to the emergency department immediately if your symptoms worsen or if you develop any dizziness, shortness of breath, difficulty breathing, chest pain, blurry vision, loss of vision, nausea, vomiting, abdominal pain, fever, chills, back pain, or any other complaints. Prescriptions: New prednisone 20 mg tablet 20 mg PO DAILY 12 Days Qty: 26 0RF Rx Instructions: Take 3 tablets for 5 days THEN; Take 2 tablets for 4 days THEN; Take 1 tablet for 3 days No Action risperidone 4 mg tablet 4 mg PO BEDTIME fluoxetine 20 mg capsule 60 mg PO DAILY prazosin 2 mg capsule 2 mg PO BEDTIME heparin(porcine) in 0.45% NaCl 25,000 unit/250 mL Parenteral Solution 25,000 unit continuous IV infusion .Q0M Qty: 250 0RF Rx Instructions: Infuse per protocol aspirin 81 mg tablet,delayed release (DR/EC) 81 mg PO DAILY Qty: 30 0RF cyclobenzaprine 5 mg tablet 5 mg PO BEDTIME PRN (Reason: muscle spasm) Qty: 4 0RF ketorolac 10 mg tablet 10 mg PO Q6H PRN (Reason: pain) 5 Days Qty: 20 0RF Rx Instructions: 1. Patient had Toradol in the emergency room. 2. Please instruct patient to refrain from all other NSAIDs. cyclobenzaprine 10 mg tablet 10 mg PO BEDTIME PRN (Reason: muscle spasm) Qty: 14 0RF oxycodone 5 mg tablet 5 mg PO Q8H PRN (Reason: pain) Qty: 10 0RF oxycodone 5 mg tablet 5 mg PO Q8H PRN (Reason: pain) Qty: 10 0RF ibuprofen 600 mg tablet 600 mg PO Q6H PRN (Reason: pain) Qty: 14 0RF cyclobenzaprine 10 mg tablet 10 mg PO TID PRN (Reason: muscle spasm) Qty: 10 0RF prednisone 20 mg tablet 40 mg PO DAILY 5 Days Qty: 10 0RF ciprofloxacin HCl 250 mg tablet 250 mg PO Q12H 7 Days Qty: 14 0RF oxycodone 5 mg capsule 5 mg PO TID PRN (Reason: pain) 3 Days Qty: 9 0RF Rx Instructions: Partial Fill upon patient request. Referrals: [facility] [place] [facility] [place]Provider Group] (Call to establish and follow up with a primary care provider. If you already have a primary care provider, please follow up with them.) [facility] [place] [facility]] [facility] [place] [facility] [[facility]] [facility] [place] [facility] [Provider Group] (If you would like a different fitness specialist - please call to establish and follow up. ) Print Language: Sami
[2024-05-24 08:11] VITALS: BP 120/74; PULSE 77; RESP 16; O2SAT 98
[2024-05-24] MEDS: Cyclobenzaprine HCl 5 MG TABLET PO (08:35)
[2024-05-24] MEDS: methylPREDNISolone Sod Succ 125 MG/2 ML VIAL 60 MG IM (08:36)
[2024-05-24] MEDS: Ketorolac Tromethamine 15 MG/ML VIAL IM (08:37)
[2024-05-24 09:36] VITALS: BP 120/74; PULSE 77; RESP 16; TEMP 36.9; O2SAT 98
== END 2024-05-24 09:38 | disposition home or self-care (01) ==
PROVIDERS: Emergency Provider Emergency Medicine
DX: M54.50 Low back pain, unspecified (principal); G58.9 Mononeuropathy, unspecified; E11.9 Type 2 diabetes mellitus without complications; I10 Essential (primary) hypertension; E78.00 Pure hypercholesterolemia, unspecified; Z79.899 Other long term (current) drug therapy; Z79.82 Long term (current) use of aspirin
CPT/HCPCS: 36415; 51798; 72131; 80053; 81001; 83690; 84484; 85025; 93005; 96372; 99284; 99285; J1885; J2919

== ENCOUNTER → 2024-05-24 01:13 | Outpatient (BNV) | payer OTHER, SELFPAY | PROVIDERS: Emergency Provider Emergency Medicine; Visit Provider Internal Medicine Cardiovascular Disease | DX: R55 Syncope and collapse (principal) | CPT/HCPCS: 93010 ==

== ENCOUNTER 2025-01-12 06:46 | Emergency (ER) | payer OTHER, SELFPAY ==
--- NOTE | ~2025-01-12 | XR_ITS ---
EXAMINATION: XR LUMBOSACRAL SPINE CLINICAL INFORMATION: pain COMPARISON: August 04, 2021. TECHNIQUE: Three views of the lumbosacral spine. FINDINGS: Syndesmophyte formation and marginal osteophyte formation with endplate sclerosis T11-12 and T12-L1 levels. Mild endplate sclerosis at multiple vertebral bodies of the lumbar spine with preservation of the intervertebral disc height. Facet joint hypertrophy on the right L5-S1. Left hemilaminectomy, L4-5 and L5-S1 level. Status post resection posterior spinous process of L4. No lytic or blastic lesions. XR/XR lumbar spine 2-3V IMPRESSION: Postsurgical changes L4-5 and L5-S1. Multilevel thoracolumbar spondylosis. Electronically signed by: Manuel Sutton MD 01/12/2025 07:58 AM EDT
[2025-01-12 06:48] VITALS: BP 130/82; PULSE 100; RESP 16; TEMP 36.7; O2SAT 97; BMI 31.8
--- NOTE | 2025-01-12 07:08 | ED.BACK ---
HPI - Back Pain/Injury General Chief Complaint: General Medical Stated Complaint: abd, back and groin pain Time Seen by Provider: 01/12/25 07:07 Source: patient and old records reviewed Mode of arrival: ambulatory Limitations: no limitations History of Present Illness ED Provider: LA HANCOCK Narrative: 54 yo male with PMH of DM, migraines, HTN, HLD, cauda equina s/p lumbar surgery at [facility] also has had cervical surgery in past. He notes when he has gone to [facility] for follow up they tell him he still has herniated discs in the lower lumbar spine. On Sunday he tried to rearrange and lift a couch he felt severe pain in bilateral lower lumbar back radiating to groin and buttocks. He has no b/b incontinence, no saddle anesthesia. He is not on thinners, no IVDA. He has oxycodone at home for pain. His daughter told him to come to the ED given his history as he wants to make sure he doesn't need emergency surgery MD elicited complaint: back pain and back injury Pertinent past history: prior back pain and back surgery Onset (ago): day(s) (2) Timing: constant Severity: moderate Similar Symptoms Previously: Yes Quality: spasming and throbbing Location: lumbar spine Radiation: buttocks, left upper leg and right upper leg Exacerbating factors: movement, walking and lifting Relieving factors: immobilization Context: while lifting Associated symptoms: denies other symptoms Treatments prior to arrival: prescription analgesics Work related injury: No Related Data Home Medications ?Medication ?Instructions ?Recorded ?Confirmed fluoxetine 20 mg capsule 60 mg PO DAILY 05/14/21 05/19/21 prazosin 2 mg capsule 2 mg PO BEDTIME 05/14/21 05/19/21 risperidone 4 mg tablet 4 mg PO BEDTIME 05/14/21 05/19/21 Previous Rx's ?Medication ?Instructions ?Recorded aspirin 81 mg tablet,delayed 81 mg PO DAILY #30 tabs 05/19/21 release heparin (porcine) 25,000 unit/250 25,000 unit (250 mL) continuous IV 05/19/21 mL in 0.45 % sodium chloride IV infusion .Q0M #250 mL soln cyclobenzaprine 10 mg tablet 10 mg PO BEDTIME PRN muscle spasm 12/04/21 #14 tabs oxycodone 5 mg tablet 5 mg PO Q8H PRN pain #10 tabs 12/04/21 oxycodone 5 mg tablet 5 mg PO Q8H PRN pain #10 tabs 12/04/21 cyclobenzaprine 10 mg tablet 10 mg PO TID PRN muscle spasm #10 01/06/22 tabs ibuprofen 600 mg tablet 600 mg PO Q6H PRN pain #14 tabs 01/06/22 cyclobenzaprine 5 mg tablet 5 mg PO BEDTIME PRN muscle spasm 06/20/22 #4 tabs ketorolac 10 mg tablet 10 mg PO Q6H PRN pain 5 days #20 06/20/22 tabs ciprofloxacin HCl 250 mg tablet 250 mg PO Q12H 7 days #14 tabs 08/21/22 oxycodone 5 mg capsule 5 mg PO TID PRN pain 3 days #9 caps 08/21/22 prednisone 20 mg tablet 40 mg (2 x 20 mg) PO DAILY 5 days 08/21/22 #10 tabs prednisone 20 mg tablet 20 mg PO DAILY 12 days #26 tabs 05/24/24 cyclobenzaprine 10 mg tablet 10 mg PO TID PRN muscle spasm #20 01/12/25 tabs prednisone 20 mg tablet 40 mg (2 x 20 mg) PO DAILY 5 days 01/12/25 #10 tabs Allergies Allergy/AdvReac Type Severity Reaction Status Date / Time lisinopril [LISINOPRIL] Allergy Severe ANGIOEDEMA Verified 01/12/25 06:48 Review of Systems Review of Systems: Constitutional : No Weight loss, No Fever, No Chills, ENT/Mouth : No Hearing loss, No Ear Pain, No Nasal Congestion, No Sinus Pain, No Hoarseness, No sore throat, No Rhinorrhea, No Swallowing Difficulty Cardiovascular : No Chest Pain, No SOB Respiratory : No Cough, No Dyspnea Gastrointestinal : No Nausea, No Vomiting, No Diarrhea, No abdominal Pain, No Hematochezia, No Melena Genitourinary : No Dysuria, No Urinary Frequency, No Hematuria, No Urinary Incontinence, Musculoskeletal : positive back pain Skin : No Skin Lesions, No rash Neuro : No Weakness, No Numbness, No Paresthesias, no loss of bowel or bladder incontinence, no saddle anesthesia all other systems reviewed and are negative PMFSH Past Medical History Attestation statement: The following information was validated with the patient. Source: old records reviewed Medical History Lumbar radiculopathy Tubular adenoma of colon Obstructive sleep apnea Migraines Illiteracy Hyperlipidemia HTN (hypertension) GERD (gastroesophageal reflux disease) Fatty infiltration of liver Diabetes Depression COVID-19 Chronic neck pain Cervical stenosis of spine Cauda equina syndrome Slipped intervertebral disc Arthritis High cholesterol Social History Social History Alcohol intake: current Alcohol intake frequency: holidays/special occasions only Patient Tobacco Use Status: Never used Tobacco Advance Directives Date on File: 05/14/21 service: No Current occupational status: unemployed Physical Exam Vital Signs: Vital Signs: Last Vital Signs Temp 98.0 F 01/12/25 06:48 Pulse 100 01/12/25 06:48 Resp 16 01/12/25 06:48 BP 130/82 01/12/25 06:48 Pulse Ox 97 01/12/25 06:48 O2 Del Method Room Air 01/12/25 06:48 BMI result Body Mass Index 31.8 Appearance: Alert. Oriented X3. No acute distress. Eyes: Pupils equal, round and reactive to light. ENT: Pharynx normal. Neck: Normal inspection. Neck supple. CVS: Normal heart rate and rhythm. Pulses normal. Respiratory: No respiratory distress. Breath sounds normal. Abdomen: Soft and nontender. Back: ttp along both lumbar paraspinals Skin: Skin warm and dry. Normal skin color. Normal skin turgor. Extremities: No lower extremity edema. No calf ttp Neuro: Oriented X 3. No motor deficit. No sensory deficit. CN2-12 intact. SILT inner thigh, L5 5/5 bilaterally, no clonus, able to lift leg with some pain both sides, 2+ DTR in patella and achilles Medications Administered Discontinued Medications Generic Name Dose Route Start Last Admin Trade Name Freq PRN Reason Stop Dose Admin Cyclobenzaprine HCl 10 mg 01/12/25 07:20 01/12/25 07:34 Cyclobenzaprine Hcl 10 Mg Tablet PO 01/12/25 07:21 10 mg ONCE ONE Administration Prednisone 40 mg 01/12/25 07:20 01/12/25 07:34 Prednisone 20 Mg Tablet PO 01/12/25 07:21 40 mg ONCE ONE Administration Medical Decision Making Medical Decision Making MDM Narrative: 54 yo male with PMH of DM, migraines, HTN, HLD, cauda equina s/p lumbar surgery at [facility] also has had cervical surgery in past here with low back pain and some radicular symptoms down both legs but no numbness, weakness, saddle anesthesia or loss of control of bowel or bladder neuro intact at this time he has no signs of cauda equina. Will obtain xray for any signs of hardware issues, basic labs and UA. Start on steroids and flexeril and advised he follow up with his spine surgeon Differential Diagnosis Differential Diagnoses: The differential diagnosis associated with the presentation includes spasm, herniated disc, he has deficits on exam and no b/b incontinence or saddle anesthesia Admission/Observation Consideration of admission/observation: Escalation of care including admission/observation considered no acute findings neuro intact will start on prednisone and flexeril refer to his [facility] surgeon Lab Data [facility] Lab Attestation statement: I reviewed the patient's lab results. chronic WBC count 01/12/25 07:03 01/12/25 07:03 Labs: Lab Results 01/12/25 Range/Units 07:03 WBC 12.8 H (4.8-10.8) X10*3/uL RBC 6.02 H (4.60-5.80) X10*6/uL Hgb 17.0 (14.0-18.0) g/dl Hct 52.1 H (42.0-52.0) % MCV 86.5 (80.0-98.0) fL MCH 28.2 (27.0-33.0) pg MCHC 32.6 (31.0-36.0) g/dl RDW 14.6 (11.0-16.0) % Plt Count 325 (160-400) X10*3/uL MPV 10.1 (9.4-12.4) fL Immature Gran % (Auto) 0.5 H (0.0-0.4) % Neut % (Auto) 72.4 (45-73) % Lymph % (Auto) 20.4 (20-40) % [place] % (Auto) 5.1 (2-11) % Eos % (Auto) 1.3 (0-4) % Baso % (Auto) 0.3 (0-2) % Lymph # (Auto) 2.6 (1.2-4.9) X10*3/uL Archer # (Auto) 0.7 (0.1-1.2) X10*3/uL Eos # (Auto) 0.2 (0.0-0.4) X10*3/uL Baso # (Auto) 0.0 (0.0-0.2) X10*3/uL Abs Immat Gran (auto) 0.06 H (0.00-0.03) X10*3/uL Absolute Neuts (auto) 9.3 H (2.0-8.3) x10*3/uL Absolute Nucleated RBC 0.000 (0.0-0.012) X10*3/uL Nucleated RBC % (auto) 0.0 (0.0-0.2) /100WBC Sodium 140 (135-145) mmol/L Potassium 4.5 D (3.3-5.1) mmol/L Chloride 105 (96-108) mmol/L Carbon Dioxide 28 (22-29) mmol/L Anion Gap 12 (12-20) BUN 12 (9-16) mg/dL Creatinine 0.84 (0.5-1.4) mg/dL Estim Creat Clear Calc 102.9 Estimated GFR > 60 Random Glucose 107 (60-115) mg/dL Calcium 9.5 (8.4-10.2) mg/dL Total Bilirubin 0.5 (0.0-1.0) mg/dL AST 15 (5-37) U/L ALT 14 (0-40) U/L Alkaline Phosphatase 126 H (39-117) U/L Total Protein 8.0 (6.5-8.0) g/dL Albumin 4.4 (3.5-5.0) g/dL Urine Color Yellow Urine Appearance Clear Urine pH 6.5 (5.0-9.0) Ur Specific [place] 1.025 (1.005-1.025) Urine Protein Negative (Neg-Trace) mg/dL Urine Glucose (UA) Negative (Negative) mg/dL Urine Ketones Trace (Negative) mg/dL Urine Blood Trace H (Negative) Urine Nitrite Negative (Negative) Ur Leukocyte Esterase Negative (Negative) Urine RBC 6-10 H (0-2) /HPF Urine WBC 0-5 (0-5) /HPF Ur Squamous Epith Cells 0-2 (0-2) /HPF Urine Bacteria None Seen (None Seen) Hyaline Casts 0-2 (0-2) /LPF Independent Interpretation I performed an independent interpretation of an: Plain X-Ray Radiology Impression Discussion of test interpretation with radiology: I have reviewed the radiologist's reading. External Record Review External record reviewed: Outpatient record Prescription Management I considered prescription management with: Other Discharge Plan Discharge Clinical Impression: Lumbar radiculopathy Patient Disposition: Home, Self-Care Instructions: Lumbar Radiculopathy (ED) Additional Instructions: labs and xray reassuring return for numbness, weakness, loss of control of bowel or bladder, or any other concerns please follow up with your spine surgeon as soon as possible Prescriptions: New cyclobenzaprine 10 mg tablet 10 mg PO TID PRN (Reason: muscle spasm) Qty: 20 0RF prednisone 20 mg tablet 40 mg PO DAILY 5 Days Qty: 10 0RF No Action risperidone 4 mg tablet 4 mg PO BEDTIME fluoxetine 20 mg capsule 60 mg PO DAILY prazosin 2 mg capsule 2 mg PO BEDTIME heparin(porcine) in 0.45% NaCl 25,000 unit/250 mL Parenteral Solution 25,000 unit continuous IV infusion .Q0M Qty: 250 0RF Rx Instructions: Infuse per protocol aspirin 81 mg tablet,delayed release (DR/EC) 81 mg PO DAILY Qty: 30 0RF cyclobenzaprine 5 mg tablet 5 mg PO BEDTIME PRN (Reason: muscle spasm) Qty: 4 0RF ketorolac 10 mg tablet 10 mg PO Q6H PRN (Reason: pain) 5 Days Qty: 20 0RF Rx Instructions: 1. Patient had Toradol in the emergency room. 2. Please instruct patient to refrain from all other NSAIDs. cyclobenzaprine 10 mg tablet 10 mg PO BEDTIME PRN (Reason: muscle spasm) Qty: 14 0RF oxycodone 5 mg tablet 5 mg PO Q8H PRN (Reason: pain) Qty: 10 0RF oxycodone 5 mg tablet 5 mg PO Q8H PRN (Reason: pain) Qty: 10 0RF ibuprofen 600 mg tablet 600 mg PO Q6H PRN (Reason: pain) Qty: 14 0RF cyclobenzaprine 10 mg tablet 10 mg PO TID PRN (Reason: muscle spasm) Qty: 10 0RF prednisone 20 mg tablet 40 mg PO DAILY 5 Days Qty: 10 0RF ciprofloxacin HCl 250 mg tablet 250 mg PO Q12H 7 Days Qty: 14 0RF oxycodone 5 mg capsule 5 mg PO TID PRN (Reason: pain) 3 Days Qty: 9 0RF Rx Instructions: Partial Fill upon patient request. prednisone 20 mg tablet 20 mg PO DAILY 12 Days Qty: 26 0RF Rx Instructions: Take 3 tablets for 5 days THEN; Take 2 tablets for 4 days THEN; Take 1 tablet for 3 days Print Language: [place]
[2025-01-12 07:09] LABS: MANUAL DIFF FLAG NO
[2025-01-12 07:10] LABS: Basophils Percent Auto 0.3 % (0-2); Eosinophils Absolute Auto 0.2 X10*3/uL (0.0-0.4); Eosinophils Percent Auto 1.3 % (0-4); Hematocrit 52.1 % (42.0-52.0); Imm Gran Abs Auto 0.06 X10*3/uL (0.00-0.03); Imm Gran Pct Auto 0.5 % (0.0-0.4); Lymphocytes Absolute Auto 2.6 X10*3/uL (1.2-4.9); Lymphocytes Percent Auto 20.4 % (20-40); Mean Corpuscular HGB Conc 32.6 g/dl (31.0-36.0); Mean Corpuscular Hemoglobin 28.2 pg (27.0-33.0); Mean Corpuscular Volume 86.5 fL (80.0-98.0); Mean Platelet Volume 10.1 fL (9.4-12.4); Monocytes Absolute Auto 0.7 X10*3/uL (0.1-1.2); Monocytes Percent Auto 5.1 % (2-11); Neutrophils Absolute Auto 9.3 x10*3/uL (2.0-8.3); Neutrophils Percent Auto 72.4 % (45-73); Platelet Count 325 X10*3/uL (160-400); Red Blood Count 6.02 X10*6/uL (4.60-5.80); Red Cell Distribution Width 14.6 % (11.0-16.0); White Blood Count 12.8 X10*3/uL (4.8-10.8)
[2025-01-12 07:15] LABS: Appearance Urine Clear; Color Urine Yellow; Glucose Urine UA Negative (Negative); Leukocyte Esterase Urine Negative (Negative); Nitrite Urine Negative (Negative); PH 6.5 (5.0-9.0); Specific Gravity - Urine 1.025 (1.005-1.025); UMIC TRIGGER UACC YES; Urine Blood Trace (Negative); Urine Ketones Trace mg/dL (Negative); Urine Protein Negative (Neg-Trace)
[2025-01-12 07:20] LABS: Bacteria Urine None Seen (None Seen); Hyaline Casts Urine 0-2 /LPF (0-2); Squamous Epithelial Cell Urine 0-2 /HPF (0-2); WBC Urine 0-5 /HPF (0-5)
[2025-01-12 07:30] LABS: Alanine Aminotransferase 14 U/L (0-40); Albumin Level 4.4 g/dL (3.5-5.0); Alkaline Phosphatase 126 U/L (39-117); Anion Gap 12 (12-20); Aspartate Amino Transferase 15 U/L (5-37); Bilirubin Total 0.5 mg/dL (0.0-1.0); Blood Urea Nitrogen 12 mg/dL (9-16); Calcium 9.5 mg/dL (8.4-10.2); Carbon Dioxide 28 mmol/L (22-29); Chloride 105 mmol/L (96-108); Creatinine Clr Calc Pharmacy 102.9; Estimated Glomerular Filt Rate > 60; Glucose Random 107 mg/dL (60-115); Potassium 4.5 mmol/L (3.3-5.1); Sodium 140 mmol/L (135-145)
[2025-01-12] MEDS: Cyclobenzaprine HCl 10 MG TABLET PO (07:34)
[2025-01-12] MEDS: predniSONE 20 MG TABLET 40 MG PO (07:34)
[2025-01-12 07:36] VITALS: BP 130/80; PULSE 94; RESP 18; TEMP 36.7; O2SAT 96
[2025-01-12 08:33] VITALS: BP 130/80; PULSE 94; RESP 20; TEMP 36.6; O2SAT 96
== END 2025-01-12 08:33 | disposition home or self-care (01) ==
PROVIDERS: Emergency Provider Emergency Medicine
DX: M54.16 Radiculopathy, lumbar region (principal); R10.30 Lower abdominal pain, unspecified; M54.50 Low back pain, unspecified; I10 Essential (primary) hypertension; Z79.899 Other long term (current) drug therapy
CPT/HCPCS: 36415; 72100; 80053; 81001; 85025; 99283; 99284

== ENCOUNTER → 2025-01-12 07:20 | Outpatient (BNV) | payer OTHER, SELFPAY | PROVIDERS: Emergency Provider Emergency Medicine; Visit Provider Radiology Diagnostic Radiology | DX: M47.815 Spondylosis without myelopathy or radiculopathy, thoracolumbar region (principal) | CPT/HCPCS: 72100 ==

== ENCOUNTER 2025-06-12 11:49 | Emergency (ER) | payer OTHER, SELFPAY ==
--- NOTE | ~2025-06-12 | CT_ITS ---
EXAMINATION: CT HEAD WITHOUT CONTRAST CLINICAL INFORMATION: Syncope with head strike. COMPARISON: 05/19/2021. Dating back to 12/31/2020. TECHNIQUE: Contiguous axial imaging was performed from the skull base to vertex without intravenous administration of contrast. This CT examination was performed using dose optimization techniques as appropriate, variously including the following: *Automated exposure control *Adjustment of mA and/or kV according to patient size (this includes techniques or standardized protocols for targeted exams where dose is matched to indication/reason for exam; i.e. extremities or head) *Use of iterative reconstruction technique FINDINGS: There is no evidence of intracranial hemorrhage or extra-axial fluid collection. There is no mass effect, or edema. No CT evidence of acute territorial infarct. Ventricles, sulci, and cisterns are normal in size and configuration for patient age. No hydrocephalus. No midline shift. Negative hyperdense MCA sign. Negative insular ribbon sign. No significant white matter attenuation abnormality. Normal pituitary. Globes and orbital contents image normally. No extracranial soft tissue abnormalities. The paranasal sinuses, mastoid air cells, and tympanic cavities are normally aerated. No suspicious bony abnormalities. There are no acute fractures evident. CT/CT head/brain wo IV con IMPRESSION: No acute intracranial abnormality. Normal exam. Electronically signed by: Onel Wade MD 06/12/2025 02:04 PM EDT
--- NOTE | ~2025-06-12 | XR_ITS ---
EXAMINATION: XR CHEST CLINICAL INFORMATION: pain COMPARISON: None available. TECHNIQUE: 2 views of the chest were obtained. FINDINGS: Pedicle screws and rods are visible at C5-6. Bony elements are otherwise unremarkable. Lungs are clear. Heart and stomach contours are normal. XR/XR chest 2V IMPRESSION: No acute disease Electronically signed by: Artis Pressley MD 06/12/2025 12:33 PM EDT RP
--- NOTE | ~2025-06-12 | CT_ITS ---
EXAMINATION: CT ANGIOGRAM CHEST CLINICAL INFORMATION: Syncope. PE workup. COMPARISON: 05/19/2021. TECHNIQUE: Multiple axial images were obtained through the chest after the administration of 50 mL of Omnipaque 350 intravenous contrast. Extensive vascular post-processing including two-dimensional and three-dimensional reformatted images were created and reviewed on an independent workstation. This CT examination was performed using dose optimization techniques as appropriate, variously including the following: *Automated exposure control *Adjustment of mA and/or kV according to patient size (this includes techniques or standardized protocols for targeted exams where dose is matched to indication/reason for exam; i.e. extremities or head) *Use of iterative reconstruction technique FINDINGS: VASCULAR: Contrast opacification of the main pulmonary artery is diagnostic. There is no pulmonary embolus present. Main pulmonary artery is normal in size. The aorta is normal in caliber and course. There is no acute aortic syndrome. There is no aneurysm. The heart size is normal. No right heart strain. No pericardial effusion. No significant coronary calcification. No reflux of contrast into the IVC. Great vessels branch normally and are patent. LUNGS: Lungs are well inspired and clear bilaterally. There is no consolidation or interstitial abnormality. There is no effusion or pneumothorax. Small airways are normal. Central airways are patent. MEDIASTINUM: Normal. AXILLA/CHEST WALL: No abnormal lymph nodes or masses. IMAGED UPPER ABDOMEN: Normal. No abnormalities. OSSEOUS STRUCTURES: No suspicious lytic or blastic bone lesion. No acute finding. Mild spinal degenerative changes. CT/CT angio chest PE protocol IMPRESSION: 1. No evidence of pulmonary embolus. No evidence of acute aortic syndrome or aneurysm. 2. The lungs are clear without active disease. Electronically signed by: Onel Wade MD 06/12/2025 02:11 PM EDT
--- NOTE | 2025-06-12 11:52 | ECG_ITS ---
Test Reason : CP Blood Pressure : */* mmHG Vent. Rate : 96 BPM Atrial Rate : 96 BPM P-R Int : 124 ms QRS Dur : 82 ms QT Int : 334 ms P-R-T Axes : 63 13 36 degrees QTcB Int : 421 ms Normal sinus rhythm Possible Left atrial enlargement Borderline ECG When compared with ECG of 24-May-2024 01:13, No significant change was found Referred By: Parish Chamorro Electronically Signed By: DWAYNE GARG
[2025-06-12 12:07] LABS: MANUAL DIFF FLAG NO
[2025-06-12 12:11] LABS: Hematocrit 48.6 % (42.0-52.0); Hemoglobin 15.9 g/dl (14.0-18.0); Imm Gran Abs Auto 0.05 X10*3/uL (0.00-0.03); Imm Gran Pct Auto 0.4 % (0.0-0.4); Lymphocytes Absolute Auto 2.3 X10*3/uL (1.2-4.9); Mean Corpuscular HGB Conc 32.7 g/dl (31.0-36.0); Mean Corpuscular Hemoglobin 28.5 pg (27.0-33.0); Mean Corpuscular Volume 87.1 fL (80.0-98.0); NRBC Abs Auto 0.000 X10*3/uL (0.0-0.012); NRBC Pct Auto 0.0 /100WBC (0.0-0.2); Platelet Count 296 X10*3/uL (160-400); Red Blood Count 5.58 X10*6/uL (4.60-5.80); White Blood Count 11.2 X10*3/uL (4.8-10.8)
[2025-06-12 12:16] VITALS: BP 139/91; PULSE 108; RESP 16; TEMP 36.6; O2SAT 98; BMI 30.4
--- NOTE | 2025-06-12 12:18 | ED.GENADULT ---
HPI - General Adult General Chief complaint: Chest Pain Stated complaint: Chest pain 3 days, passed out hit head Time Seen by Provider: 06/12/25 12:30 Source: patient Mode of arrival: ambulatory Limitations: no limitations History of Present Illness ED Provider: HPI narrative: 54-year-old male history of family heart disease, he is diabetic, history of hypotension, presenting with chest pain, pain radiating to the left arm, and then reporting that he was going to the kitchen to get some water he passed out, in 2020 he had essentially the same presentation at that point he had a and admission and had diagnostic catheterization that was not significant for coronary artery disease and no other abnormalities found. Nonsmoker no drug use. Related Data Home Medications ?Medication ?Instructions ?Recorded ?Confirmed fluoxetine 20 mg capsule 60 mg PO DAILY 05/14/21 05/19/21 prazosin 2 mg capsule 2 mg PO BEDTIME 05/14/21 05/19/21 risperidone 4 mg tablet 4 mg PO BEDTIME 05/14/21 05/19/21 Previous Rx's ?Medication ?Instructions ?Recorded aspirin 81 mg tablet,delayed 81 mg PO DAILY #30 tabs 05/19/21 release heparin (porcine) 25,000 unit/250 25,000 unit (250 mL) continuous IV 05/19/21 mL in 0.45 % sodium chloride IV infusion .Q0M #250 mL soln cyclobenzaprine 10 mg tablet 10 mg PO BEDTIME PRN muscle spasm 12/04/21 #14 tabs oxycodone 5 mg tablet 5 mg PO Q8H PRN pain #10 tabs 12/04/21 oxycodone 5 mg tablet 5 mg PO Q8H PRN pain #10 tabs 12/04/21 cyclobenzaprine 10 mg tablet 10 mg PO TID PRN muscle spasm #10 01/06/22 tabs ibuprofen 600 mg tablet 600 mg PO Q6H PRN pain #14 tabs 01/06/22 cyclobenzaprine 5 mg tablet 5 mg PO BEDTIME PRN muscle spasm 06/20/22 #4 tabs ketorolac 10 mg tablet 10 mg PO Q6H PRN pain 5 days #20 06/20/22 tabs ciprofloxacin HCl 250 mg tablet 250 mg PO Q12H 7 days #14 tabs 08/21/22 oxycodone 5 mg capsule 5 mg PO TID PRN pain 3 days #9 caps 08/21/22 prednisone 20 mg tablet 40 mg (2 x 20 mg) PO DAILY 5 days 08/21/22 #10 tabs prednisone 20 mg tablet 20 mg PO DAILY 12 days #26 tabs 05/24/24 cyclobenzaprine 10 mg tablet 10 mg PO TID PRN muscle spasm #20 01/12/25 tabs prednisone 20 mg tablet 40 mg (2 x 20 mg) PO DAILY 5 days 01/12/25 #10 tabs Allergies Allergy/AdvReac Type Severity Reaction Status Date / Time lisinopril (LISINOPRIL) Allergy Severe ANGIOEDEMA Verified 06/12/25 12:18 Review of Systems Constitutional: Constitutional: Reports as per [facility] Past Medical History Medical History Lumbar radiculopathy Tubular adenoma of colon Obstructive sleep apnea Migraines Illiteracy Hyperlipidemia HTN (hypertension) GERD (gastroesophageal reflux disease) Fatty infiltration of liver Diabetes Depression COVID-19 Chronic neck pain Cervical stenosis of spine Cauda equina syndrome Slipped intervertebral disc Arthritis High cholesterol Social History Social History Alcohol intake: current Alcohol intake frequency: holidays/special occasions only Patient Tobacco Use Status: Never used Tobacco Use of substances other than those prescribed or required for medical reasons: No Advance Directives: No Advance Directives Information Provided: Yes Advance Directives Date on File: 05/14/21 Do you have a plan to hurt others: No Plan service: No Current occupational status: unemployed Physical Exam ED Vital Signs: Vital Signs - 24 hr 06/12/25 12:16 06/12/25 14:38 Temperature 97.8 F Pulse Rate 108 H 87 Respiratory Rate 16 16 Blood Pressure 139/91 H 126/81 Pulse Oximetry 98 97 Oxygen Delivery Method Room Air Room Air BMI result Body Mass Index 30.4 Const Other: Gen: ?Overall well-appearing patient, somewhat anxious affect HEENT: PERRLA, EOMI, MMM, small frontal hematoma Neck: Supple, no LAD CV: RRR, no obvious murmurs appreciated, radial pulses +2 bilaterally Resp: ?No wheezing rales rhonchi no stridor moving air well Abd: ?Bowel sounds are present, no tenderness no rebound no rigidity MSK: FROM, strength 5/5 all extremities Skin: Warm, dry, intact, Neuro: ?Alert and oriented x3, moving upper and lower extremities symmetrically, no obvious facial asymmetry noted Course Course Course Narrative: RME, this is a rapid medical exam performed by Leonardo Chamorro please refer to primary provider for complete H&P- 54-year-old male past medical history significant for hypertension, hyperlipidemia, GERD, fatty liver presents for evaluation of chest pain and a syncopal episode. The patient reports that he was having chest pain for the last 3 days. He was at home today when he felt a sudden onset of sharp pain radiating to his left arm and shortness of breath. He reports that he remembers waking up on the ground but does not know exactly what happened. EKG performed on arrival, labs ordered. He is well-appearing with stable vital signs. His EKG is unchanged when compared to May of 2024 Medications Administered Discontinued Medications Generic Name Dose Route Start Last Admin Trade Name Freq PRN Reason Stop Dose Admin Diazepam 2.5 mg 06/12/25 12:43 06/12/25 13:00 Diazepam 10 Mg/2 Ml Cartridge IVPUSH 06/12/25 12:44 2.5 mg STAT STA Administration Sodium Chloride 1,000 mls @ 999 mls/hr 06/12/25 12:45 06/12/25 15:50 Ns IV 06/12/25 13:45 Infused .Q1H1M CHAKA Infusion Iohexol 100 ml 06/12/25 13:54 06/12/25 13:54 Iohexol 350 Mg/Ml 100 Ml Infus..Btl IV 06/12/25 13:55 65 ml ONCE ONE Administration Medical Decision Making Medical Decision Making [facility] Narrative: 54-year-old male with cardiac risk factors, fairly concerning history for chest pain, syncope, head injury, has had very similar story in 2020, that point was admitted had cardiac catheterization, had negative CT chest there was no dissection or PE, I will perform similar workup today just because of how concerning history history is, we will obtain additional cardiac enzymes and then re-evaluate. will hold off aspirin until I make sure that this is not a PE or dissection, he is hemodynamically stable with pulses intact bilateral upper extremities 16:00 patient re-evaluated he feels much better, I have discussed workup with him, I suspect he has vasovagal syncope with loss of bowel bladder function, he states that when he goes down he does not have post ictal episode, it is a brief episode and he is aware what is going on again. Differential Diagnosis Differential Diagnoses: The differential diagnosis associated with the presentation includes Admission/Observation Consideration of admission/observation: Escalation of care including admission/observation considered 2022 Emergency Medicine Coding Guide from [employer] on 06/12/2025 All calculations should be rechecked by clinician prior to use RESULT SUMMARY: 5 Estimated Level of Service Problems: High (5) Risk: High (5) Data: Extensive (5) NARRATIVE MDM: This patient's problem complexity is High as patient: may have an acute or chronic illness/injury posing a threat to life or body function. This patient's risk is High due to: overall presentation requiring evaluation for a potentially High-risk process. This patient's data complexity is Extensive due to: -multiple tests ordered/reviewed -independent interpretation of imaging or EKG INPUTS: Number and Complexity ?> 2 = 5: illness/injury w/life or body threat (b) Risk level ?> 4 = High Tests ordered ?> 3 = =3 Tests results reviewed (excluding labs) ?> 2 = 2 Prior external notes reviewed ?> 0 = 0 Assessment requiring and independent historian ?> 0 = No Independent interpretation of tests ?> 1 = Yes Discussed management/test interpretation w/external professional ?> 0 = No Lab Data MDM Lab Attestation statement: I reviewed the patient's lab results. 06/12/25 12:02 06/12/25 12:02 Labs: Lab Results 06/12/25 06/12/25 Range/Units 12:02 14:27 WBC 11.2 H (4.8-10.8) X10*3/uL RBC 5.58 (4.60-5.80) X10*6/uL Hgb 15.9 (14.0-18.0) g/dl Hct 48.6 (42.0-52.0) % MCV 87.1 (80.0-98.0) fL MCH 28.5 (27.0-33.0) pg MCHC 32.7 (31.0-36.0) g/dl RDW 15.4 (11.0-16.0) % Plt Count 296 (160-400) X10*3/uL MPV 10.2 (9.4-12.4) fL Immature Gran % (Auto) 0.4 (0.0-0.4) % Neut % (Auto) 74.4 H (45-73) % Lymph % (Auto) 20.5 (20-40) % Moffat % (Auto) 3.1 (2-11) % Eos % (Auto) 1.3 (0-4) % Baso % (Auto) 0.3 (0-2) % Lymph # (Auto) 2.3 (1.2-4.9) X10*3/uL Moffat # (Auto) 0.4 (0.1-1.2) X10*3/uL Eos # (Auto) 0.1 (0.0-0.4) X10*3/uL Baso # (Auto) 0.0 (0.0-0.2) X10*3/uL Abs Immat Gran (auto) 0.05 H (0.00-0.03) X10*3/uL Absolute Neuts (auto) 8.3 (2.0-8.3) x10*3/uL Absolute Nucleated RBC 0.000 (0.0-0.012) X10*3/uL Nucleated RBC % (auto) 0.0 (0.0-0.2) /100WBC Sodium 143 (135-145) mmol/L Potassium 4.1 (3.3-5.1) mmol/L Chloride 106 (96-108) mmol/L Carbon Dioxide 28 (22-29) mmol/L Anion Gap 13 (12-20) BUN 17 H (9-16) mg/dL Creatinine 0.91 (0.5-1.4) mg/dL Estim Creat Clear Calc 93.0 Estimated GFR > 60 Random Glucose 133 H (60-115) mg/dL Calcium 9.8 (8.4-10.2) mg/dL Total Bilirubin 0.5 (0.0-1.0) mg/dL AST 20 (5-37) U/L ALT 12 (0-40) U/L Alkaline Phosphatase 103 (39-117) U/L Troponin I High Sens < 2.7 < 2.7 (<3.5-35.0) ng/L Total Protein 7.8 (6.5-8.0) g/dL Albumin 4.8 (3.5-5.0) g/dL Lipase 82 H (8-78) U/L Independent Interpretation I performed an independent interpretation of an: EKG (96 beats per minute otherwise normal ECG without dysrhythmia, AV zeb blocks or ST-T changes to suspect underlying ACS, my independent interpretation) and Plain X-Ray (No free air, no pneumothorax, no mediastinal widening, no consolidations, my independent interpretation) Radiology Impression Discussion of test interpretation with radiology: I have reviewed the radiologist's reading. (1. No evidence of pulmonary embolus. No evidence of acute aortic syndrome or aneurysm. 2. The lungs are clear without active disease.) External Record Review External record reviewed: Outpatient record, Prior outpatient labs and Prior outpatient radiology Prescription Management I considered prescription management with: Pain Medication Chronic Conditions Patient?s care impacted by: Diabetes and Hypertension Critical Care Time Critical Care Time Critical Care Time: Yes Total Critical Care Time: 35 Attestation: Time is exclusive of separately billable procedures. Time includes: direct patient care, patient reassessment, coordination of patient care, interpretation of data (laboratory data, pulse oximetry, arterial blood gases and chest xrays), review of patient's medical records, medical consultation and documentation of patient care. Procedures excluded from critical care time: central intravenous line placement and electrocardiography. Discharge Plan Discharge Clinical Impression: Chest pain, precordial, Syncope, vasovagal Patient Disposition: Home, Self-Care Additional Instructions: Diagnosis and Initial Evaluation: You have been evaluated in the Emergency Department (ED) for chest pain. Based on your clinical assessment, electrocardiogram (ECG), and high-sensitivity cardiac troponin (hs-cTn) levels, you have been classified as low-risk for acute coronary syndrome (ACS) and myocardial infarction (NE). This means that your likelihood of having a heart attack or other serious heart condition in the next 30 days is very low. Follow-Up Care: ? Primary Care Provider (PCP) or Auto Parts Manager: It is important to follow up with your primary care provider or placing judge within the next 14 to 30 days. This follow-up is crucial to ensure that any underlying conditions are managed appropriately and to discuss any further testing that may be needed. ? Notification: If you have an established PCP or placing judge, they have been notified of your ED visit to facilitate continuity of care. Self-Care and Monitoring: ? Medications: Continue taking any prescribed medications as directed. If you have been given new medications, ensure you understand how and when to take them. ? Activity: Resume normal activities as tolerated. Avoid strenuous activities until you have discussed them with your healthcare provider. ? Diet: Maintain a heart-healthy diet, low in saturated fats, cholesterol, and sodium. Red Flags: Seek immediate medical attention if you experience any of the following: ? New or worsening chest pain ? Shortness of breath ? Dizziness or fainting ? Pain radiating to your arm, neck, or jaw ? Sweating, nausea, or vomiting Additional Testing: In some cases, outpatient testing such as a stress test or imaging may be recommended to further evaluate your heart health. Your follow-up provider will discuss this with you if necessary. Mental Health: Anxiety and stress can contribute to chest pain. Consider discussing any concerns with your healthcare provider, who may recommend screening for anxiety or depression and appropriate management strategies. Contact Information: If you have any questions or concerns before your follow-up appointment, please contact your healthcare provider or the ED where you were evaluated. Summary: You have been discharged from the ED with a low risk of serious heart conditions. Follow the instructions above, attend your follow-up appointments, and seek immediate care if you experience any red flags. Prescriptions: No Action risperidone 4 mg tablet 4 mg PO BEDTIME fluoxetine 20 mg capsule 60 mg PO DAILY prazosin 2 mg capsule 2 mg PO BEDTIME heparin(porcine) in 0.45% NaCl 25,000 unit/250 mL Parenteral Solution 25,000 unit continuous IV infusion .Q0M Qty: 250 0RF Rx Instructions: Infuse per protocol aspirin 81 mg tablet,delayed release (DR/EC) 81 mg PO DAILY Qty: 30 0RF cyclobenzaprine 5 mg tablet 5 mg PO BEDTIME PRN (Reason: muscle spasm) Qty: 4 0RF ketorolac 10 mg tablet 10 mg PO Q6H PRN (Reason: pain) 5 Days Qty: 20 0RF Rx Instructions: 1. Patient had Toradol in the emergency room. 2. Please instruct patient to refrain from all other NSAIDs. cyclobenzaprine 10 mg tablet 10 mg PO BEDTIME PRN (Reason: muscle spasm) Qty: 14 0RF oxycodone 5 mg tablet 5 mg PO Q8H PRN (Reason: pain) Qty: 10 0RF oxycodone 5 mg tablet 5 mg PO Q8H PRN (Reason: pain) Qty: 10 0RF ibuprofen 600 mg tablet 600 mg PO Q6H PRN (Reason: pain) Qty: 14 0RF cyclobenzaprine 10 mg tablet 10 mg PO TID PRN (Reason: muscle spasm) Qty: 10 0RF prednisone 20 mg tablet 40 mg PO DAILY 5 Days Qty: 10 0RF ciprofloxacin HCl 250 mg tablet 250 mg PO Q12H 7 Days Qty: 14 0RF oxycodone 5 mg capsule 5 mg PO TID PRN (Reason: pain) 3 Days Qty: 9 0RF Rx Instructions: Partial Fill upon patient request. prednisone 20 mg tablet 20 mg PO DAILY 12 Days Qty: 26 0RF Rx Instructions: Take 3 tablets for 5 days THEN; Take 2 tablets for 4 days THEN; Take 1 tablet for 3 days cyclobenzaprine 10 mg tablet 10 mg PO TID PRN (Reason: muscle spasm) Qty: 20 0RF prednisone 20 mg tablet 40 mg PO DAILY 5 Days Qty: 10 0RF Interventions: ED Discharge Assessment Last Done: 06/12/25 15:59 Print Language: Malian
[2025-06-12 12:25] LABS: Alanine Aminotransferase 12 U/L (0-40); Albumin Level 4.8 g/dL (3.5-5.0); Alkaline Phosphatase 103 U/L (39-117); Anion Gap 13 (12-20); Aspartate Amino Transferase 20 U/L (5-37); Blood Urea Nitrogen 17 mg/dL (9-16); Calcium 9.8 mg/dL (8.4-10.2); Carbon Dioxide 28 mmol/L (22-29); Chloride 106 mmol/L (96-108); Creatinine Clr Calc Pharmacy 93.0; Estimated Glomerular Filt Rate > 60; Lipase 82 U/L (8-78); Potassium 4.1 mmol/L (3.3-5.1); Sodium 143 mmol/L (135-145); Total Protein 7.8 g/dL (6.5-8.0)
[2025-06-12 12:38] LABS: Troponin-I High Sensitivity < 2.7 ng/L (<3.5-35.0)
[2025-06-12] MEDS: diazePAM 10 MG/2 ML CARTRIDGE 2.5 MG IVPUSH (13:00)
--- OUTSIDE RECORDS SUMMARY | 2025-06-12 13:00 | XMS_ITS | Clinical Summary ---
Author Organization [facility] Address [address] [place] [address] Care Team Providers Care Membership Solicitor Name Role Phone Pcp, No Primary Care Provider Unavailabl e Allergies Active Allergy Reactions Criticality Noted Date Comments Lisinopril Angioedema High 02/15/2025 Social History Tobacco Use Types Packs/Day Years Used Date Smoking Tobacco: Never Smokeless Tobacco: Never Tobacco Cessation:Counseling Given: Not Answered Alcohol Use Standard Drinks/Week Comments Never 0 (1 standard drink = 0.6 oz pur e alcohol) Sex and Gender Information Value Date Recorded Sex Assigned at Male 02/15/2025 6:03 AM EDT Legal Sex Male 5:59 AM EDT Gender Identity Male 02/15/2025 6:03 AM EDT Sexual Orientation Other 02/15/2025 6: 03 AM EDT Last Filed Vital Signs Vital Sign Reading Time Taken Comments Blood Pressure 127/87 02/15/2025 8:57 AM EDT Pulse 88 02/15/2025 8:57 AM EDT Temperature 36.8 C (98.2 F) 02/15/2025 8:57 AM EDT Respiratory Rate 16 02/15/2025 8:57 AM EDT Oxygen Saturation 100% 02/15/2025 8:57 AM EDT Inhaled Oxygen Concentration - - Weight 84.9 kg (187 lb 2.7 oz) 02/15/2025 6:07 A M EDT Height 160.1 cm (5' 3.03 ) 02/15/2025 6:07 AM ED T Body Mass Index 33.12 02/15/2025 6:07 AM EDT Plan of Treatment Health Maintenance Due Date Last Done Comments Hepatitis C Virus Screening 1971 HIV Screening 1984 DTaP/Tdap/Td Vaccines (1 - Tdap) 1990 Hepatitis B Vaccines (1 of 3 - 19+ 3-dose series) 1990 Colonoscopy 2016 Pneumococcal Vaccines 50+ (1 of 1 - PCV) 2021 Zoster (Shingles) Vaccine (1 of 2) 2021 Influenza Vaccine 05/15/2025 09/09/2024, , 11/03/2022, Additional history exists COVID-19 Vaccine Completed 09/09/2024, , 12/28/2021 Insurance [facility] Care Teams Membership Solicitor Relationship Specialty Start Date End Date Pcp, No PCP - General 02/15/25
--- OUTSIDE RECORDS SUMMARY | 2025-06-12 13:00 | XMS_ITS ---
Author Name [facility] Organization Unknown Results Test Name/Text Value Interpretation Date Range Source Potassium SerPl-sCnc 3.5 mmol/L Normal 02/15/2025 3.4 - 4 .5 [facility] Anion Gap Bld-sCnc 8.0 Normal 02/15/2025 5 - 15 [facility] ALP SerPl-cCnc 120.0 U/L Normal 02/15/2025 45 - 128 [facility] T Albumin/Glob SerPl 1.5 Ratio Normal 02/15/2025 1.5 - 2.5 [facility] CO2 SerPl-sCnc 29.0 mmol/L Normal 02/15/2025 20 - 31 [facility] CCT Creat SerPl-mCnc 0.9 mg/dL Normal 02/15/2025 0.7 - 1.3 [facility] AST SerPl-cCnc 18.0 U/L Normal 02/15/2025 - 34 [facility] T Prot SerPl-mCnc 8.1 g/dL Normal 02/15/2025 5.7 - 8.[address] BUN/Creat SerPl 14.0 Ratio Normal 02/15/2025 10 - 25 [facility] CCT GFR/BSA.pred SerPlBld [id number] >90.0 Normal 02/15/2025 59 - [facility] Chloride SerPl-sCnc 101.0 mmol/L Normal 02/15/2025 98 - 1 07 [facility] Bilirub SerPl-mCnc 0.8 mg/dL Normal 02/15/2025 0.3 - 1.2 [facility] Albumin SerPl-mCnc 4.9 g/dL Above high normal 02/15/2025 3. 4 - 4.8 [facility] BUN SerPl-mCnc 13.0 mg/dL Normal 02/15/2025 9 - [address] ALT SerPl-cCnc 17.0 U/L Normal 02/15/2025 10 - 49 [facility] T Globulin Ser Calc-mCnc 3.2 g/dL Normal 02/15/2025 1.5 - 3.9 [facility] Calcium SerPl-mCnc 9.2 mg/dL Normal 02/15/2025 8.7 - 10.5 [facility] Glucose SerPl-mCnc 123.0 mg/dL Above high normal 02/15/2025 74 - 106 [facility] Sodium SerPl-sCnc 138.0 mmol/L Normal 02/15/2025 136 - 14 5 [facility] Magnesium SerPl-mCnc 2.1 mg/dL Normal 02/15/2025 1.6 - 2. 6 [facility] Delta NO PREVIOUS RESULT Normal 02/15/2025 [facility] Troponin I SerPl DL<=0.01 ng/mL-mCnc <3.0 ng/L Normal 02/15/2025 - 54 [facility] Basophils/leuk NFr Bld Auto 0.4 % Normal 02/15/2025 [facility] RDW RBC Auto-Rto 15.0 % Above high normal 02/15/2025 11.5 - 14.5 [facility] Eosinophil/leuk NFr Bld Auto 1.1 % Normal 02/15/2025 [facility] Imm Granulocytes/leuk NFr Bld Auto 0.7 % Normal 02/15/2025 [facility] Eosinophil num Bld Auto 0.12 Thou/uL Normal 02/15/2025 0 - 0.7 [facility] MCV RBC Auto 87.0 fL Normal 02/15/2025 80 - 100 [facility] MCH RBC Qn Auto 27.4 pg Normal 02/15/2025 27 - [address] Monocytes/leuk NFr Bld Auto 9.9 % Normal 02/15/2025 [facility] PMV Bld Auto 10.8 fL Normal 02/15/2025 7.5 - 12.5 [facility] Hct VFr Bld Auto 53.3 % Normal 02/15/2025 39 - 54 HH CCT Neutrophils/leuk NFr Bld Auto 73.4 % Normal 02/15/2025 [facility] Monocytes num Bld Auto 1.06 Thou/uL Normal 02/15/2025 0.2 - 1.5 [facility] Neutrophils num Bld Auto 7.87 Thou/uL Above high normal 02/15/2025 2 - 7.5 [facility] Lymphocytes num Bld Auto 1.55 Thou/uL Normal 02/15/2025 1.5 - 4.5 [facility] WBC num Bld Auto 10.7 Thou/uL Normal 02/15/2025 4 - 11 [facility] Platelet num Bld Auto 291.0 Thou/uL Normal 02/15/2025 150 - 450 [facility] Imm Granulocytes num Bld Auto 0.08 Thou/uL Normal 02/15/2025 0 - 0.1 [facility] Hgb Bld-mCnc 16.7 g/dL Normal 02/15/2025 13 - 17.7 [facility] Lymphocytes/leuk NFr Bld Auto 14.5 % Normal 02/15/2025 [facility] RBC num Bld Auto 6.1 Mil/uL Normal 02/15/2025 4.5 - 6.2 H [facility]CT MCHC RBC Auto-mCnc 31.3 g/dL Normal 02/15/2025 30 - 36 [facility] Basophils num Bld Auto 0.04 Thou/uL Normal 02/15/2025 0 - 0.2 [facility] Encounters Encounter Type Encounter Reason Primary Diagnosis Location Date Emergency Syncope and collapse Syncope and collapse [facility] 02/15/2025 Care Team Organization Name Specialty Phone Email Start Date End [facility] 02/15/2025 03/16/2025 [facility] NO PCP Primary Care 02/15/2025 [facility] 02/15/2025
--- OUTSIDE RECORDS SUMMARY | 2025-06-12 13:00 | XMS_ITS | Clinical Summary ---
Author Organization [facility] Address [address] [place] [address] Phone Care Team Providers Care Dispatcher Maintenance Service Name Role Phone Physician, Pcp Unknown Primary Care Provider Elva vailable Allergies Active Allergy Reactions Criticality Noted Date Comments Lisinopril Anaphylaxis High 04/15/2025 Encounters Date Type Department Care Team Description 04/15/2025 7:19 PM EDT - 04/15/2025 10:24 PM EDT Emergency [facility] Emergency [address] [place] [address] Discharge Disposition: Home or Self Care from Last 3 Months Medical History Medical History Date Comments HTN (hypertension) DM (diabetes mellitus) (CMS/HCC V24, [facility] ) Arrhythmia High cholesterol Social History Tobacco Use Types Packs/Day Years Used Date Smoking Tobacco: Never Smokeless Tobacco: Never Tobacco Cessation:Counseling Given: Not Answered Sex and Gender Information Value Date Recorded Sex Assigned at Not on file Legal Sex Male 1:00 AM EST Gender Identity Not on file Sexual Orientation Not on file Obstetrics History Last Filed Vital Signs Vital Sign Reading Time Taken Comments Blood Pressure 137/88 04/15/2025 7:23 PM EDT Pulse 101 04/15/2025 7:23 PM EDT Temperature 36.5 C (97.7 F) 04/15/2025 7:23 PM EDT Respiratory Rate 16 04/15/2025 7:23 PM EDT Oxygen Saturation 98% 04/15/2025 7:23 PM EDT Inhaled Oxygen Concentration - - Weight 86.2 kg (190 lb) 04/15/2025 7:21 PM EDT Height 165.1 cm (5' 5 ) 04/15/2025 7:21 PM EDT Body Mass Index 31.62 04/15/2025 7:21 PM EDT Plan of Treatment Health Maintenance Due Date Last Done Comments Diabetes: Annual Foot Exam 1981 Diabetes: Annual Retina Eye Exam 1981 Hepatitis A Vaccines (1 of 2 - Risk 2-dose series) 1990 Hepatitis B Vaccines (1 of 3 - 19+ 3-dose series) 1990 Cholesterol Screening (Lipid Panel) 09/17/2022 Colorectal Cancer Screening: Colonoscopy 09/17/2022 HIV Screening 09/17/2022 Hepatitis C Screening 09/17/2022 Social Influencers of Health Screening 09/17/2022 Zoster Vaccines (2 of 3) 01/25/2024 11/30/2023 Depression Screening 10/15/2024 Diabetes: Annual Urine Albumin-Creatinine Ratio (uACR) 04/16/2025 Diabetes: Blood Sugar Control Test (HGBA1C) 04/16/2025 Influenza Vaccine (#1) 2025 , 08/10/2023, 11/03/2022, Additional history exists Diabetes: Annual GFR (Glomerular Filtration Rate) 04/15/2026 04/15/2025, 02/15/2025 Hypertension/CHF/CAD Annual BMP Blood Test 04/15/2026 04/15/2025, 02/15/2025 DTaP,Tdap,and Td Vaccines (4 - Td or Tdap) 11/09/2033 11/09/2023, 03/29/2019, 09/10/2017 Pneumococcal Vaccine: 50+ Years Completed 08/10/2023, 04/08/2018, 04/22/2017, Additional history exists COVID-19 Vaccine Completed 09/09/2024, , 01/26/2022, Additional history exists HIB Vaccines Aged Out No longer eligi ble based on patient's age to complete this topic HPV Vaccines Aged Out No longer eligi ble based on patient's age to complete this topic IPV Vaccines Aged Out No longer eligi ble based on patient's age to complete this topic MMR Vaccines Aged Out No longer eligi ble based on patient's age to complete this topic Meningococcal ACWY Vaccine Aged Out N o longer eligible based on patient's age to complete this topic Meningococcal B Vaccine Aged Out No l onger eligible based on patient's age to complete this topic RSV Immunization Patients Under 20 months Aged Out No longer eligible based on patient's age to complete this topic Varicella Vaccines Aged Out No longer eligible based on patient's age to complete this topic Procedures Procedure Name Priority Date/Time Associated Diagnosis Comments ECG ANNOTATED 04/16/2025 TROPONIN I HIGH SENSITIVITY STAT 04/15/2025 8:34 PM EDT ECG 12-LEAD STAT 04/15/2025 8:32 PM EDT CBC WITH AUTO DIFFERENTIAL STAT 04/15/2025 7:32 PM EDT B-TYPE NATRIURETIC PEPTIDE STAT 04/15/2025 7:32 PM EDT MAGNESIUM STAT 04/15/2025 7:32 PM EDT LIPASE STAT 04/15/2025 7:32 PM EDT COMPREHENSIVE METABOLIC PANEL STAT 04/15/2025 7:32 PM EDT CBC AND DIFFERENTIAL STAT 04/15/2025 7:32 PM EDT TROPONIN I HIGH SENSITIVITY STAT 04/15/2025 7:32 PM EDT ECG 12-LEAD STAT 04/15/2025 7:27 PM EDT from Last 3 Months Results * ECG-Annotated (04/16/2025) us Provider Onbase MD ECG ORDERABLES Final Result * Troponin I high sensitivity (04/15/2025 8:34 PM EDT) Only the most recent of2 resultswithin the time period is included. High Sensitivity Troponin I 4 <=79 ng/L LAB CHEMISTRY METHOD 04/15/2025 9:27 PM EDT [facility] Blood Venous blood specimen / Unknown Venipuncture / Unknown 04/15/2025 8:34 PM EDT 04/15/2025 9:04 PM EDT Narrative [facility] - 04/15/2025 9:27 PM EDT High levels of biotin in samples may falsely decrease hsTroponin values. Use caution when interpreting hsTroponin results in patients taking biotin who exhibit renal impairment (eGFR <60) or in patients taking more than 20 mg/day of biotin. [facility] Emmy Bobby MD LAB BLOOD ORDERABLES Final Resu lt Performing Organization Address City/[facility]/ZIP Co de Phone Number [facility]) [facility] [address] [place] [address], [place] [phone] * ECG 12 lead (04/15/2025 8:32 PM EDT) Only the most recent of2 resultswithin the time period is included. Ventricular Rate ECG 95 BPM GEMUSE Atrial Rate 95 BPM GEMUSE P-R Interval 118 ms GEMUSE QRS Duration 82 ms GEMUSE Q-T Interval 352 ms GEMUSE QTc 442 ms GEMUSE P Wave [place] 59 degrees GEMUSE R [place] 9 degrees GEMUSE T [place] 18 degrees GEMUSE ECG Interpretation Normal sinus rhythm When compared with ECG of 15-APR-2025 19:27, (unconfirmed) No significant change was found Confirmed by DAMON ALEX ([id number]) on 04/16/2025 5:51:09 AM GEMUSE 04/15/2025 8:32 PM EDT 04/16/2025 5:51 AM EDT [facility] ECG ORDERABLES Final Result Performing Organization Address [facility] Co de Phone Number GEMUSE * (ABNORMAL) CBC auto differential (04/15/2025 7:32 PM EDT) WBC 14.2(H) 4.8 - 10.8 K/[facility] HEMETOLOGY METHOD 04/15/2025 8:10 PM EDT [facility] RBC 5.50 4.50 - 5.50 M/[facility] LAB HEMETOLOGY METHOD 04/15/2025 8:10 PM EDT [facility] Hemoglobin 15.1 13.5 - 17.5 g/dL LAB HEMETOLOGY METHOD 04/15/2025 8:10 PM EDT [facility] Hematocrit 48.3 42.0 - 54.0 % LAB HEMETOLOGY METHOD 04/15/2025 8:10 PM EDT [facility] MCV 88.1 79.0 - 98.0 FL LAB HEMETOLOGY METHOD 04/15/2025 8:10 PM EDT [facility] MCH 27.6 27.0 - 32.0 pcg LAB HEMETOLOGY METHOD 04/15/2025 8:10 PM T [facility] MCHC 31.3(L) 32.0 - 37.0 g/dL LAB HEMETOLOGY METHOD 04/15/2025 8:10 PM [facility] RDW 15.0 11.0 - 15.0 % LAB HEMETOLOGY METHOD [facility]/15[facility]2025 [facility] Plate[facility] 325 130 - 400 K/mcL LAB HEMETOLOGY METHOD 04/15/2025 8:[facility] MPV 10.5 7.0 - 11.0 FL LAB HEMETOLOGY METHOD 04/15/2025 8:10 PM [facility] NRBC 0.0 <1.0 % LAB HEMETOLOGY METHOD 04/15/2025 8:10 PM EDT [facility] NRBC Absolute 0.00 <0.10 K/mcL LAB HEMETOLOGY METHOD 04/15/2025 8:[facility] Neutrophils Relative 73.6 % LAB HEMETOLOGY METHOD 04/15/2025 8:10 PM [facility] Lymphocytes Relative 19.3 % LAB HEMETOLOGY METHOD 04/15/2025 8:10 PM [facility] Monocytes Relative 5.6 % LAB HEMETOLOGY METHOD 04/15/2025 8:10 PM EDT [facility] Eosinophils Relative 0.4 % LAB HEMETOLOGY METHOD 04/15/2025 8:10 PM EDT [facility] Basophils Relative 0.5 % LAB HEMETOLOGY METHOD 04/15/2025 8:10 PM EDT [facility] Immature Granulocytes Relative 0.6 % LAB HEMETOLOGY METHOD 04/15/2025 8:10 PM EDT [facility] Neutrophils Absolute 10.48(H) 1.50 - 7.00 K/mcL LAB HEMETOLOGY METHOD 04/15/2025 8:10 PM EDT [facility] Lymphocytes Absolute 2.74 1.00 - 5.00 K/mcL LAB HEMETOLOGY METHOD 04/15/2025 8:10 PM EDT [facility] Monocytes Absolute 0.80 0.20 - 1.00 K/mcL LAB HEMETOLOGY METHOD 04/15/2025 8:10 PM EDT [facility] Eosinophils Absolute 0.06 0.00 - 0.50 K/mcL LAB HEMETOLOGY METHOD 04/15/2025 8:10 PM EDT [facility] Basophils Absolute 0.07 0.00 - 0.20 K/mcL LAB HEMETOLOGY METHOD 04/15/2025 8:10 PM EDT [facility] Immature Granulocytes Absolute 0.08(H) 0.00 - 0.03 K/mcL LAB HEMETOLOGY METHOD 04/15/2025 8:10 PM EDT [facility] Blood Venous blood specimen / Unknown Venipuncture / Unknown 04/15/2025 7:32 PM EDT 04/15/2025 8:06 PM EDT us Nikolas Emmy Bobby MD LAB BLOOD ORDERABLES Final Resu lt [facility] [address] [place] [address], [place] [phone] * B-type natriuretic peptide (04/15/2025 7:32 PM EDT) [facility] BNP 11 <=100 pcg/mL LAB CHEMISTRY METHOD 04/15/2025 8:36 PM EDT [facility] Blood Venous blood specimen / Unknown Venipuncture / Unknown 04/15/2025 7:32 PM EDT 04/15/2025 8:06 PM EDT us Nikolas Bobby MD LAB BLOOD ORDERABLES Final Resu lt [facility] [address] [place] [address], [place] [phone] * Magnesium (04/15/2025 7:32 PM EDT) [facility] Magnesium 2.1 1.9 - 2.6 mg/dL LAB CHEMISTRY METHOD 04/15/2025 8:33 PM EDT [facility] Blood Venous blood specimen / Unknown Venipuncture / Unknown 04/15/2025 7:32 PM EDT 04/15/2025 8:06 PM EDT us Nikolas Bobby MD LAB BLOOD ORDERABLES Final Resu lt [facility] [address] [place] [address], [place] [phone] * Lipase (04/15/2025 7:32 PM EDT) [facility] Lipase 70 13 - 75 unit/L LAB CHEMISTRY METHOD 04/15/2025 8:33 PM EDT [facility] Blood Venous blood specimen / Unknown Venipuncture / Unknown 04/15/2025 7:32 PM EDT 04/15/2025 8:06 PM EDT us Nikolas Bobby MD LAB BLOOD ORDERABLES Final Resu lt [facility] [address] [place] [address], * (ABNORMAL) Comprehensive metabolic panel (04/15/2025 7:32 PM EDT) Sodium 137 133 - 145 mmol/L LAB CHEMISTRY METHOD 04/15/2025 8:33 PM EDT [facility] Potassium 3.8 3.5 - 5.5 mmol/L LAB CHEMISTRY METHOD 04/15/2025 8:33 PM T [facility] Chloride 103 96 - 110 mmol/L LAB CHEMISTRY METHOD 04/15/2025 8:33 PM [facility] CO2 29 21 - 32 mmol/L LAB CHEMISTRY METHOD 04/15/2025 8:33 PM [facility] Anion Gap 5 3 - 11 LAB CHEMISTRY METHOD 04/15/2025 8:33 PM [facility] Glucose 78 70 - 100 mg/dL LAB CHEMISTRY METHOD 04/15/2025 8:33 PM [facility] BUN 14 5 - 25 mg/dL LAB CHEMISTRY METHOD 04/15/2025 8:33 PM [facility] Creatinine 0.87 0.70 - 1.30 mg/dL LAB CHEMISTRY METHOD 04/15/2025 8:33 PM T [facility] eGFR 103 >=60 mL/min/1. 73m2 LAB CHEMISTRY METHOD 04/15/2025 8:33 PM [facility] Comment:Calculation based on the Chronic Kidney Disease Epidemiology Collaboration (CKD-EPI) equation refit without adjustment for race. BUN/Creatinine Ratio 16.1 LAB CHEMISTRY METHOD 04/15/2025 8:33 PM [facility] Calcium 9.9 8.5 - 10.5 mg/dL LAB CHEMISTRY METHOD 04/15/2025 8:33 PM EDT [facility] AST (SGOT) 10 10 - 42 unit/L LAB CHEMISTRY METHOD 04/15/2025 8:33 PM EDT [facility] ALT (SGPT) 20 10 - 60 unit/L LAB CHEMISTRY METHOD 04/15/2025 8:33 PM EDT [facility] Alkaline Phosphatase 129(H) 42 - 121 unit/L LAB CHEMISTRY METHOD 04/15/2025 8:33 PM EDT [facility] Total Protein 7.9 6.0 - 8.0 g/dL LAB CHEMISTRY METHOD 04/15/2025 8:33 PM EDT [facility] Albumin 4.2 3.2 - 5.0 g/dL LAB CHEMISTRY METHOD 04/15/2025 8:33 PM EDT [facility] Total Bilirubin 0.8 0.0 - 1.4 mg/dL LAB CHEMISTRY METHOD 04/15/2025 8:33 PM EDT [facility] Blood Venous blood specimen / Unknown Venipuncture / Unknown 04/15/2025 7:32 PM EDT 04/15/2025 8:06 PM EDT Nikolas Bobby MD LAB BLOOD ORDERABLES Final Resu lt [facility] [address] [place] [address], from Last 3 Months Insurance [facility] MEDICAID ADVANTAGE Care Teams Dispatcher Maintenance Service Relationship Specialty Start Date End Date Physician, Pcp Unknown PCP - General 04/15/25
[2025-06-12] MEDS: iohexoL 350 MG/ML 100 ML INFUS..BTL IV (13:54)
[2025-06-12 14:38] VITALS: BP 126/81; PULSE 87; RESP 16; O2SAT 97
[2025-06-12 15:02] LABS: Troponin-I High Sensitivity < 2.7 ng/L (<3.5-35.0)
[2025-06-12 15:59] VITALS: BP 126/81; PULSE 87; RESP 16; TEMP -17.7; TEMP 0; O2SAT 97
--- NOTE | 2025-06-12 16:01 | PC.NURSE ---
DC reviewed verbally by provider Dr. Anderson - patient left before DC paperwork printed. IV removed by EDT Samantha.
== END 2025-06-12 16:01 | disposition home or self-care (01) ==
PROVIDERS: Physician Assistant; Emergency Provider Emergency Medicine
DX: R07.9 Chest pain, unspecified (principal); R07.2 Precordial pain; R55 Syncope and collapse; E11.9 Type 2 diabetes mellitus without complications
CPT/HCPCS: 36415; 70450; 71046; 71275; 80053; 83690; 84484; 85025; 93005; 96361; 96374; 99285; J3360; Q9967

== ENCOUNTER → 2025-06-12 11:52 | Outpatient (BNV) | payer OTHER, SELFPAY | PROVIDERS: Emergency Provider Emergency Medicine; Visit Provider Internal Medicine | DX: R07.2 Precordial pain (principal) | CPT/HCPCS: 93010 ==

== ENCOUNTER → 2025-06-12 12:18 | Outpatient (BNV) | payer OTHER, SELFPAY | PROVIDERS: Emergency Provider Emergency Medicine; Visit Provider Radiology Diagnostic Radiology | DX: R55 Syncope and collapse (principal); R07.9 Chest pain, unspecified | CPT/HCPCS: 70450; 71046; 71275 ==

== ENCOUNTER 2025-08-08 09:41 | Emergency (ER) | payer OTHER, SELFPAY ==
--- OUTSIDE RECORDS SUMMARY | 2025-08-04 05:35 | XMS_ITS | Encounter Summary ---
[facility] Address [address] [place] [phone] Care Team Providers Care Travel Service Consultant Name Role Phone Clifford Kim MD Primary Care Provider [phone] Reason for Visit * Auth/Cert (Routine) Specialty Diagnoses / Procedures Referred By Donald t Referred To Contact Diagnoses Radiculopathy, lumbar region Radiculopathy, lumbar region Procedures VA DIOR W DECMPR NVR ROOT EXC HIVD 1 INTERSPACE Right L5-S1 minimally invasive discectomy Xin Dave MD [address] [place] [address] Phone: tel: fax: [facility] Main OR [address] [place] [address] Phone: tel: Referral ID Status Reason Start Date Expiration Date Visits Re quested Visits Authorized [id number] 1 1 Encounter Details Date Type Department Care Team (Latest Contact Info) Description 08/04/2025 5:35 AM EDT - 08/05/2025 10:57 AM EDT Hospital Encounter [facility] Surgical Unit [address] [place] [phone] Xin Dave MD [address] [place] [address] Discharge Disposition: Home or Self Care Social History Tobacco Use Types Packs/Day Years Used Date Smoking Tobacco: Never Smokeless Tobacco: Never Housing Instability Answer Date Recorde d Are you worried that in the next 2 months you may not have stable housing? No 08/04/2025 Food Access & Nutrition Answer Date Rec orded Do you have access to a vari ety of food including fruits and vegetables? Yes 08/04/2025 Access to Healthcare Answer Date Record ed Within the last 3 months, ho w many times did you visit the emergency department for your medical care? 2 08/04/2025 Health Literacy Answer Date Recorded How often do you need to hav e someone help you when you read instructions, pamphlets, or other written material from your doctor or pharmacy? Always 08/04/2025 Caregiver: How often do you need to have someone help you when you read instructions, pamphlets, or other written material from your doctor or pharmacy? Not on file 08/04/2025 Financial Risk Answer Date Recorded How hard is it for you to pa y for the very basics like food, housing, medical care, and air conditioning / heating? Somewhat hard 08/04/2025 Transportation Answer Date Recorded Has the lack of transportati on kept you from meetings, work, or from getting things needed for daily living? No Has the lack of transportati on kept you from medical appointments or from getting medications? No 08/04/2025 Social Isolation Answer Date Recorded How often do you feel lonely or isolated from those around you? Sometimes 08/04/2025 Food Risk Answer Date Recorded Within the past 12 months we worried whether our food would run out before we got money to buy more. Often true 08/04/2025 Within the past 12 months th e food we bought just didn't last and we didn't have money to get more. Often true 08/04/2025 Dependent Care Answer Date Recorded Do you need help finding or paying for care for your loved ones. For example, early childhood aide classroom or elderly care for an older adult? No 08/04/2025 Education Answer Date Recorded Do you think completing more education or training, like finishing a GED, going to college, or learning a trade, would be helpful for you? Yes 08/04/2025 Employment and Income Answer Date Recor ded During the last four weeks, have you been actively looking for work? No 08/04/2025 Living Situation Answer Date Recorded What is your living situation? Unrecognized valu e 08/04/2025 Interpersonal Safety Answer Date Record ed Physical Abuse Unrecognized value 08/04/2025 Verbal Abuse Unrecognized value 08/04/2025 Sex and Gender Information Value Date Recorded Sex Assigned at Not on file Legal Sex Male 1:00 AM EST Gender Identity Not on file Sexual Orientation Not on file documented as of this encounter Last Filed Vital Signs Vital Sign Reading Time Taken Comments Blood Pressure 110/74 08/05/2025 10:40 AM EDT Pulse 73 08/05/2025 10:40 AM EDT Temperature 36.6 C (97.9 F) 08/05/2025 10:40 AM EDT Respiratory Rate 17 08/05/2025 10:40 AM EDT Oxygen Saturation 96% 08/05/2025 10:40 AM EDT Inhaled Oxygen Concentration - - Weight 81.6 kg (180 lb) 08/04/2025 6:08 AM EDT Height 165.1 cm (5' 5 ) 08/04/2025 6:08 AM EDT Body Mass Index 29.95 08/04/2025 6:08 AM EDT documented in this encounter Functional Status * Calculated C-SSRS Risk Score (Lifetime/Recent) Answer Date of Assessment Author No Risk Indicated 08/04/2025 2:20 PM EDT Nancy Golden RN * [place] Suicide Severity Rating Scale (Screener/Recent Self-Report) Question Answer Date of Assessment Author 1. Wish to be (Past 1 Month) No 025 2:20 PM EDT Nancy Golden RN 2. Non-Specific Active Suici jo Thoughts (Past 1 Month) No 08/04/2025 2:20 PM EDT Nancy Golden RN 6. Suicidal Behavior (Lifetime) No 2:20 PM EDT Nancy Golden RN documented as of this encounter Discharge Instructions * Discharge Instructions* BLAIRE uLbin - 08/05/2025 9:43 AM EDT Please call the office to schedule your postop appointment for 10-14 days, #[phone]. Call withany concerns or questions, like wound redness, drainage, fevers, increasing pain or weakness. After your Lumbar surgery we ask you to observe the following restrictions/guidelines: Activity: It is normal to feel some discomfort as you increase your activity, but that will improve with time. We ask you avoid heavy lifting or activities that cause pain. As a general rule, 8lbs is a safe limit for lifting right after surgery (approximately a gallon of milk). Walk as much as you feel comfortable but not to exhaustion. You will feel extra tired the first fewdays after surgery. Stay well hydrated. It is OK to walk up and down stairs a few times a day. You may return to driving when you are off narcotics (such as vicodin, oxycodone, dilaudid, etc), and you are back to normal functional capacity. If you have any concerns please check with office before driving. If you had a spinal fusion, and we gave you a brace, please wear it when you are out of bed more than 5-10 minutes. You do not need it when you are showering. Return to work is specific to each patient and each surgery, so please speak with your doctor/PA atfirst follow up. Please bring paperwork such as FMLA at that time if you need it filled out. Follow up: Please call the office, , after surgery to arrange a 10 day follow up for wound check. Wound Care: We generally ask that you keep your wound covered for the first 3 days after surgery, unless it wasclosed with glue. If your surgeon used surgical glue, you may leave open to air. Please do not peeloff the skin glue, let it fall off on its own. If you have marshall or sutures, please call the office when you get home to arrange follow up in 10days to arrange removal of marshall/sutures. If you have steri strips, they should fall off in one week. If not, you may remove them as they peel away from the skin. You may shower on post op day # 3 after removing your dressing. You do not need to put a new dressing over the wound after showering unless there is drainage. We ask that you do not let the water soak the wound. If it does get wet, just towel dry lightly. The only exception is with patients whose wounds are closed with glue. Those patients may shower the first day after surgery. Please do not scrub your incision or place any type of chemical/ointment on the wound. No tub bath's, pools or jacuzzi's for one month. Medications: We will give you a short supply of narcotics after surgery (usually one week's worth). If you need more please call the office but do not use more than prescribed. If you are on a narcotic, it is a good idea to take a stool softener such as colace or senna to avoid constipation If you take blood thinner such as aspirin, Plavix, Coumadin, Effient, Eliquis etc for conditions such as Afib, DVT, Pulmonary embolus, coronary disease, stents etc please speak with your surgeon about specific details as to when you can resume these medications. If you take NSAID's such as Celebrex, Naproxen, Motrin, Aleve, Meloxicam etc we generally allow youto resume these on post op day 7, but if you had a spinal fusion please check with your surgeon before resuming these medications. documented in this encounter Medications at Time of Discharge ciprofloxacin (CIPRO) 500 mg tablet Take 1 tablet (500 mg total) by mouth 2 (two) times a day for 7 days. 14 tablet 08/02/2025 08/09/20 25 aspirin 81 mg EC tablet Take 1 tablet (81 mg total) by mouth 1 (one) time each day. atorvastatin (LIPITOR) 40 mg tablet Take 1 tablet (40 mg total) by mouth 1 (one) time each day. 04/14/2025 blood sugar diagnostic (FreeStyle Lite Strips) test strip USE DIRECTED FOR TYPE 2 DIABETES MELLITUS TO CHECK SUGAR DAILY. 04/29/2025 cloNIDine (CATAPRES) 0.1 mg tablet Take 1 tablet (0.1 mg total) by mouth at bedtime as needed. at bedtime 05/24/2025 cyclobenzaprine (FLEXERIL) 10 mg tablet take 1 tab by mouth 3 times a day as needed for muscle spasm 01/12/2025 EPINEPHrine (EPIPEN) 0.3 mg/0.3 mL injection INJECT 0.3 MG INTRAMUSCULARLY ONCE 01/29/2025 lidocaine (LIDODERM) 5 % patch Apply 1 patch topically 1 (one) time each day. Remove & discard patch within 12 hours or as directed by . 30 each 07/25/2025 08/24/20 25 metoprolol succinate (TOPROL-XL) 25 mg 24 hr tablet Take 1 tablet (25 mg total) by mouth 1 (one) time each day. 05/20/2025 naloxone (NARCAN) 4 mg/0.1 mL nasal spray Administer 1 each (4 mg total) into affected nostril(s) if needed for opioid reversal. Give 4 mg (1 spray) into one nostril. May repeat every 2-3 minutes if needed, alternating nostrils, until medical assistance becomes available. 2 each 07/22/2025 07/22/20 26 propranoloL (INDERAL) 20 mg tablet Take 1 tablet (20 mg total) by mouth 1 (one) time each day if needed. Trulicity 1.5 mg/0.5 mL pen injector injection 0.5 mL (1.5 mg total) 1 (one) time per week. Stopped 07/20/25 Ventolin HFA 90 mcg/actuation inhaler INHALE 2 PUFFS INTO LUNG 4 TIMES DAILY NEEDED FOR WHEEZING 04/29/2025 documented as of this encounter Discharge Disposition Disposition Code Departure Means Destination Comment s Home or Self Care Walk-out documented in this encounter Progress Notes * BLAIRE Lubin - 08/05/2025 10:57 AM EDT No acute events overnight Patient is doing well Pain well controlled No nausea or vomiting, tolerating diet Patient reports that his right leg pain is significantly better postoperatively. Objective Last Recorded Vitals: Blood pressure 110/74, pulse 73, temperature 36.6 ??C (97.9 ??F), resp. rate 17, height 1.651 m (65 ), weight 81.6 kg (180 lb), SpO2 96%. Vitals: 08/04/25 1956 08/05/25 0246 08/05/25 0734 08/05/25 1040 BP: 120/73 112/65 115/83 110/74 BP Location: Right arm Right arm Patient Position: Lying Lying Pulse: 97 93 76 73 Resp: Temp: 36.8 ??C (98.2 ??F) 36.5 ??C (97.7 ??F) 36.8 ??C (98.2 ??F) 36.6 ??C (97.9 ??F) TempSrc: Oral Temporal SpO2: 97% 99% 100% 96% Weight: Height: LABS HEMATOLOGY Lab Results Component Value Date WBC 10.1 08/02/2025 HGB 15.5 08/02/2025 HCT 49.0 08/02/2025 MCV 88.1 08/02/2025 PLT 336 08/02/2025 CHEMISTRY Lab Results Component Value Date GLUCOSE 135 (H) 08/05/2025 NA 138 08/02/2025 K 5.4 08/02/2025 CO2 28 08/02/2025 CL 105 08/02/2025 BUN 15 08/02/2025 CREATININE 0.82 08/02/2025 EGFR 105 08/02/2025 CALCIUM 9.2 08/02/2025 MG 2.7 (H) 07/22/2025 ANIONGAP 5 08/02/2025 Imaging: XR Spine 1 View Narrative: HISTORY: The patient is a 54-year-old male undergoing lumbar spine surgery. FINDINGS: 5 fluoroscopic spot lateral radiographs of the lower lumbar spine obtained in the operating room are submitted. Each image demonstrates a metallic probe projecting posterior to the L5-S1 interspace. The alignment of the included bony structures is anatomic. No fracture is seen. Impression: Metallic probes project posterior to the L5-S1 interspace. Code 25901 The dose-area product for this procedure was 170.40 uGy*m2. PQRI CPT II G9500 -------- FINAL REPORT -------- Dictated By: Yuniel Cohn Dictated Date: 08/04/2025 10:00 ET Assigned Physician: Yuniel Cohn Reviewed and Electronically Signed By: Yuniel Cohn Signed Date: 08/04/2025 10:02 ET Workstation ID: [id number] Transcribed By: Self Edit Transcribed Date: 08/04/2025 10:00 ET Physical Exam Constitutional: General: No acute distress. Appearance: Not ill-appearing. HENT: Head: Atraumatic. Mouth: Mucous membranes are moist. Eyes: Extraocular Movements: Extraocular movements intact. Conjunctiva/sclera: Conjunctivae Normal Cardiac: Rate and Rhythm: Normal rate. Pulmonary: Respirations unlabored. Abdominal: General: There is no distension. Palpations: Abdomen is soft. Tenderness: There is no abdominal tenderness. There is no guarding or rebound. Musculoskeletal: Right lower leg: No edema. Left lower leg: No edema. Neurological: General: No focal deficit present. Mental Status: Patient is alert and oriented to person, place, and time. Cranial Nerves: No cranial nerve deficit. Motor exam shows 5/5 strength in UEs and LEs bilaterally. Reflexes WNL, no H/C. Incision: Closed and appears to be healing nicely. It is covered with Exofin. Output by Drain (mL) 08/03/25 0700 - 08/03/25 1859 08/03/25 1900 - 08/04/25 0659 08/04/25 0700 - 08/04/25 1859 08/04/25 1900 - 08/05/25 0659 08/05/25 0700 - 08/05/25 1119 Patient has no LDAs of requested type attached. Intake/Output Summary (Last 24 hours) at 08/05/2025 1119 Last data filed at 08/05/2025 0700 Gross per 24 hour Intake 1057.5 ml Output 1575 ml Net -517.5 ml Assessment/Plan Principal Problem: Radiculopathy, lumbar region Postop day #1 status post right sided L5-S1 minimally invasive microdiscectomy. He is doing well postoperatively and is ready for discharge to home. We went over the discharge instructions and he will follow-up in our office in approximately 10 days. * Leanne Lainez RN - 08/05/2025 10:57 AM EDT Pt medically cleared for discharge. Dispo is home self-care. No skilled need for VNA at this time. Significant other to provide transportation. * Nancy Golden RN - 08/05/2025 10:31 AM EDT Patient states understanding to discharge instructions. IV line removed. Patient to follow up with neuro surgery. Patient to take medications as prescribed. Denies questions. S.O driving patient home. documented in this encounter H&P Notes * Xin Dave MD - 08/04/2025 7:30 AM EDT Vitals: 08/04/25 0557 BP: (!) 135/90 Pulse: 77 Resp: 16 Temp: 36 ??C (96.8 ??F) SpO2: 100% A&O x 3 Palate clear without redness or exudate lungs CTA, HR regular Denies chest pain, shortness of breath, fevers, productive cough On Cipro D#2 for UTI due to renal stones. Dysuria resolved Procedure reviewed and all questions answered. Consent signed. Xin Dave MD Source Note - BLAIRE Nettles - 07/13/2025 6:44 AM EDT Neurosurgery Note: Dr. 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 There is no significant central stenosis, no cauda equina. She agrees with previous plan made for Right L5-S1 MIS discectomy. Pt is currently scheduled for surgery 08/04/25, if we get a cancellation can see if pt wants to move surgery date sooner. documented in this encounter Procedure Notes * Mirta Dobbins RN - 08/04/2025 8:49 AM EDT LEVEL L5-S[address] LOCALIZED BY DR DAVE, DR STEELE VERIFIED LEVEL L5-S1 FROM C-ARM IMAGE * Xin Dave MD - 08/04/2025 8:44 AM EDT Right L5-S1 minimally invasive discectomy (R) OPERATIVE NOTE Date: 08/04/2025 Location: [facility] OR Name: Jj Olivier, : 1970, Diagnosis Pre-op Diagnosis * Radiculopathy, lumbar region [M54.16] Post-op Diagnosis * Radiculopathy, lumbar region [M54.16] Procedures Right L5-S1 minimally invasive discectomy 40342 - VA DIOR W DECMPR INCL PART FACETECTOMY/EXC HIVD REEXPLORE SGL INTERSPCE LUMB Indications: Jj Olivier is an 54 y.o. male who is having surgery for Radiculopathy, lumbar region. 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 A spinal needle was introduced to the right of midline parallel to his long midline incision then a lateral image taken to locate the L5-S1 level. A right paramedian incision was marked and infiltrated with 1% lidocaine with epinephrine, incised sharply and a K wire seatedon the right L5 lamina. The Metrix dilator tubes were passed until an 18 x 7 mm beveled tube was seated and secured to the bed attachment. A repeat lateral image was taken at the level confirmed to be L5-S1 by Dr. Steele of radiology. The microscope was brought into place, the overlying muscle resected and an inferior laminotomy identified then extended with the Midas drill including burring alongthe mesial facet and extending up to the level of the foramen. The bone edges were waxed, the gliste riya white granulation tissue dissected with forward angled curettes cutting against the bone before undercutting with a 2 mm Kerrison along the lamina and mesial facet down to the subarticular recess. A repeat lateral image was taken with a [place] 4 at this level and this appeared to be at the caudal aspect of the disc space therefore, the laminotomy was extending further cranially to encompass more of the foramen. A [place] 4 and the forward angled curettes were used to identify the edge of bone and protected the exiting nerve root with a [place] 4 while the 2 mm Kerrison was used to undercut and widen the foramen. The reverse angled curette was passed ventral to the descending root with downward pressure on the disc annulus sweeping laterally in order to remove the calcified adherent fragments overlying the disc space. A Dickenson probe now passed easily down the course of the rootwhich appeared relaxed and pulsatile. Thrombin Gelfoam was used for epidural hemostasis and bipolarcautery and Gelfoam used for minor muscle bleeding as a tube was removed. The incision was closed with a 3-0 Vicryl [id number] in the fascia, 3-0 Vicryl interrupteds inthe subcutaneous layer then a 4-0 Monocryl running subcuticular skin closure and Exofin glue. The PA in this case assisted with nerve root retraction, maintenance of exposure with irrigation and suction and closure of the incision. Complications: None; patient tolerated the procedure well. Disposition: PACU - hemodynamically stable. Condition: stable Xin Dave MD * Mirta Dobbins RN - 08/04/2025 7:40 AM EDT Pt stopped Trulicity on 07/25/25. Pt currently has a UTI which Dr Dave is aware of. Pt took Cipro for UTI * Christopher Hager RN - 08/04/2025 6:07 AM EDT [phone] documented in this encounter Plan of Treatment Upcoming Encounters Date Type Department Care Team (Latest Contact Info) Description 09/24/2025 7:30 AM EST Hospital Encounter [facility] Main OR [address] [place] [phone] Parish Warren MD [address] [place] [phone] 09/24/2025 7:30 AM EST - 09/24/2025 8:45 AM EST Surgery [facility] Main OR [address] [place] [phone] Parish Warren MD [address] [place] [phone] EXCISION LIPOMA LEFT AXILLA [65967 (CPT )] 10/13/2025 8:00 AM EST Office Visit General Surgery - [place] [address] [facility] [address] [place] [phone] Parish Warren MD [address] [place] [phone] Scheduled Orders Name Type Priority Associated Diagnoses Orde r Schedule ECG 12 lead - Procedural (No Charge) ECG Routine As needed for 1 Occurrences starting 08/04/2025 Scheduled Procedures Name Priority Associated Diagnoses Date/Ti me EXCISION LIPOMA Lipoma of left axilla 09/24/2025 7:30 AM EST documented as of this encounter Goals Goal Patient Goal Type Associated Problems Recent Progress Patient-Stated? Author Autogenerat ed Goal Care Plan Autogenerated Problem No Greer Chau [place] documented as of this encounter Procedures Procedure Name Priority Date/Time Associated Diagnosis Comments POCT GLUCOSE BLOOD Routine 08/05/2025 10 :43 AM EDT POCT GLUCOSE BLOOD Routine 08/05/2025 7: 59 AM EDT POCT GLUCOSE BLOOD Routine 08/04/2025 8: 33 PM EDT POCT GLUCOSE BLOOD Routine 08/04/2025 4: 16 PM EDT POCT GLUCOSE BLOOD Routine 08/04/2025 1: 36 PM EDT XR SPINE 1 VIEW Routine 08/04/2025 9:35 AM EDT VA DIOR W DECMPR INCL PART FACETECTOMY/EXC HIVD REEXPLORE SGL INTERSPCE LUMB 08/04/2025 7:35 AM EDT Radiculopathy, lumbar region Case Notes C-Arm, Microscope, chest rolls Special Needs Chest rolls PROCEDURAL ECG Routine 08/04/2025 6:18 AM EDT POCT GLUCOSE BLOOD Routine 08/04/2025 5: 58 AM EDT documented in this encounter Results * (ABNORMAL) POCT Glucose, blood (08/05/2025 10:43 AM EDT) Glucose POCT 135(H) 70 - 100 mg/dL 08/05/2025 10:44 AM EDT [facility] Blood Capillary blood specimen / Unknown 08/05/2025 10:43 AM EDT 08/05/2025 10:45 AM EDT Xin Dave MD LAB POINT OF CARE TE ST DOCKED DEVICE UNSOLICITED RESULTS Final Result Performing Organization Address City/[facility]/ZIP Co de Phone Number [facility] [address] [place] [address], [place] [phone] * (ABNORMAL) POCT Glucose, blood (08/05/2025 7:59 AM EDT) Glucose POCT 142(H) 70 - 100 mg/dL 08/05/2025 8:01 AM EDT [facility] Blood Capillary blood specimen / Unknown 08/05/2025 7:59 AM EDT 08/05/2025 8:03 AM EDT Xin Dave MD LAB POINT OF CARE TE ST DOCKED DEVICE UNSOLICITED RESULTS Final Result [facility] [address] [place] [address], [place] [phone] * (ABNORMAL) POCT Glucose, blood (08/04/2025 8:33 PM EDT) Glucose POCT 142(H) 70 - 100 mg/dL 08/04/2025 8:35 PM EDT [facility] Blood Capillary blood specimen / Unknown 08/04/2025 8:33 PM EDT 08/04/2025 8:36 PM EDT Xin Dave MD LAB POINT OF CARE TE ST DOCKED DEVICE UNSOLICITED RESULTS Final Result Performing Organization Address City/[facility]/ZIP Co de Phone Number [facility] [address] [place] [address], [place] [phone] * (ABNORMAL) POCT Glucose, blood (08/04/2025 4:16 PM EDT) Glucose POCT 164(H) 70 - 100 mg/dL 08/04/2025 4:17 PM EDT [facility] Blood Capillary blood specimen / Unknown 08/04/2025 4:16 PM EDT 08/04/2025 4:18 PM EDT Xin Dave MD LAB POINT OF CARE TE ST DOCKED DEVICE UNSOLICITED RESULTS Final Result [facility] [address] [place] [address], [place] [phone] * (ABNORMAL) POCT Glucose, blood (08/04/2025 1:36 PM EDT) Glucose POCT 206(H) 70 - 100 mg/dL 08/04/2025 1:40 PM EDT [facility] Blood Capillary blood specimen / Unknown 08/04/2025 1:36 PM EDT 08/04/2025 1:41 PM EDT Xin Dave MD LAB POINT OF CARE TE ST DOCKED DEVICE UNSOLICITED RESULTS Final Result [facility] [address] [place] [address], * XR Spine 1 View (08/04/2025 9:35 AM EDT) Anatomical Region Laterality Modality Spine Radio Fluoroscop y 08/04/2025 10:0 0 AM EDT Impressions 08/04/2025 10:02 AM EDT Metallic probes project posterior to the L5-S1 interspace. Code 72006 The dose-area product for this procedure was 170.40 uGy*m2. PQRI CPT II G9500 -------- FINAL REPORT -------- Dictated By: Yuniel Cohn Dictated Date: 08/04/2025 10:00 ET Assigned Physician: Yuniel Cohn Reviewed and Electronically Signed By: Yuniel Cohn Signed Date: 08/04/2025 10:02 ET Workstation ID: [id number] Transcribed By: Self Edit Transcribed Date: 08/04/2025 10:00 ET Narrative 08/04/2025 10:02 AM EDT HISTORY: The patient is a 54-year-old male undergoing lumbar spine surgery. FINDINGS: 5 fluoroscopic spot lateral radiographs of the lower lumbar spine obtained in the operating room are submitted. Each image demonstrates a metallic probe projecting posterior to the L5-S1 interspace. The alignment of the included bony structures is anatomic. No fracture is seen. Procedure Note Yuniel Cohn MD - 08/04/2025 HISTORY: The patient is a 54-year-old male undergoing lumbar spinesurgery. FINDINGS: 5 fluoroscopic spot lateral radiographs of the lower lumbarspine obtained in the operating room are submitted. Each imagedemonstrates a metallic probe projecting posterior to the [id number]. The alignment of the included bony structures is anatomic. Nofracture is seen. IMPRESSION: Metallic probes project posterior to the L5-S1 interspace. Code 00659 The dose-area product for this procedure was 170.40 uGy*m2. PQRI CPT II G9500 -------- FINAL REPORT -------- Dictated By: Yuniel Cohn Dictated Date: 08/04/2025 10:00 ET Assigned Physician: Yuniel Cohn Reviewed and Electronically Signed By: Yuniel Cohn Signed Date: 08/04/2025 10:02 ET Workstation ID: [id number] Transcribed By: Self Edit Transcribed Date: 08/04/2025 10:00 ET us Xin Dave MD IMG XR PROCEDURES Final Result * ECG 12 lead - Procedural (No Charge) (08/04/2025 6:18 AM EDT) Ventricular Rate ECG 78 BPM GEMUSE Atrial Rate 78 BPM GEMUSE P-R Interval 130 ms GEMUSE QRS Duration 80 ms GEMUSE Q-T Interval 396 ms GEMUSE QTc 451 ms GEMUSE P Wave [place] 32 degrees GEMUSE R [place] 9 degrees GEMUSE T [place] 12 degrees GEMUSE ECG Interpretation Normal sinus rhythm Normal ECG When compared with ECG of 21-JUL-2025 23:51, No significant change was found Confirmed by MD Harjeet, Helena ([id number]) on 08/04/2025 9:16:48 PM GEMUSE 08/04/2025 6:18 AM EDT 08/04/2025 9:16 PM EDT us Xin Dave MD ECG ORDERABLES Final Result GEMUSE * (ABNORMAL) POCT Glucose, blood (08/04/2025 5:58 AM EDT) Glucose POCT 122(H) 70 - 100 mg/dL 08/04/2025 5:59 AM EDT [facility] Blood Capillary blood specimen / Unknown 08/04/2025 5:58 AM EDT 08/04/2025 6:00 AM EDT us Xin Dave MD LAB POINT OF CARE TE ST DOCKED DEVICE UNSOLICITED RESULTS Final Result [facility] [address] [place] [address], documented in this encounter Visit Diagnoses Diagnosis Radiculopathy, lumbar region- Primary Thoracic or lumbosacral neuritis or radiculitis, unspecified Lipoma of left axilla- Primary Lipoma of left axilla documented in this encounter Admitting Diagnoses Diagnosis Radiculopathy, lumbar region Thoracic or lumbosacral neuritis or radiculitis, unspecified documented in this encounter Administered Medications Inactive Administered Medications - up to 3 most recent administrations Medication Order MAR Action Action Date Dose Rate Site aspirin EC tablet 81 mg 81 mg, oral, Daily, First dose on Sun08/04/25 at 1415, Recovery & On Unit, Do not crush, chew, or split. Given 08/05/2025 8:49 AM EDT 81 mg Given 08/04/2025 1:57 PM EDT 81 mg atorvastatin (LIPITOR) tablet 40 mg 40 mg, oral, Daily, First dose on Sun08/04/25 at 1415, Recovery & On Unit Given 08/05/2025 8:49 AM EDT 40 mg Given 08/04/2025 1:57 PM EDT 40 mg ceFAZolin (ANCEF) 2 g in sterile water 20 mL IV syringe 2 g, intravenous, Administer over 3 Minutes, Every 8 hours, First dose (after last reorder) on Sun08/04/25 at 1530, For 2 doses, Recovery & On Unit, -IV Push over 3 minutes -Administer within 60 minutes of incision, Indication: Prophylaxis-Surgical Given 08/04/2025 11:35 PM EDT 2 g Given 08/04/2025 4:42 PM EDT 2 g ciprofloxacin (CIPRO) tablet 500 mg 500 mg, oral, 2 times daily, First dose on Sun08/04/25 at 2100, For 5 days, Recovery & On Unit, Administer 2 hours before or after multivitamins, antacids, or other products containing polyvalent cations (i.e., calcium, iron, magnesium, selenium, zinc). IF RECEIVING ENTERAL NUTRITION: Hold tube feeds 2 hours before and 2 hours after administration., Indication: Urinary Tract/Genitourinary Given 08/05/2025 8:49 AM EDT 500 mg Given 08/04/2025 8:46 PM EDT 500 mg dexAMETHasone (DECADRON) injection 4 mg 4 mg, intravenous, Once, On Sun08/04/25 at 0615, For 1 dose, Preprocedure Given 08/04/2025 6:26 AM EDT 4 mg diphenhydrAMINE (BENADRYL) injection 12.5 mg 12.5 mg, intravenous, Once as needed, itching, Starting on Sun08/04/25 at 1343, For 1 dose, Phase II/On Unit fentaNYL (PF) (SUBLIMAZE) injection 50 mcg 50 mcg, intravenous, Every 10 min PRN, moderate pain, Starting on Sun08/04/25 at 1005, For 4 doses, Recovery (only) Given 08/04/2025 11:01 AM EDT 50 mcg Given 08/04/2025 10:25 AM EDT 50 mcg insulin lispro injection 2-12 Units 2-12 Units, subcutaneous, 3 times daily with meals, First dose on Sun08/04/25 at 1245, Recovery & On Unit, Indication: Total Daily Dose (TDD) 40 - 80 units. Correction Scale: Moderate Dose Administer with meal and/or mealtime dose of insulin to correct high blood glucose If mealtime insulin dose not given (e.g. patient NPO or not eating), still administer correction factor for high blood glucose Given 08/04/2025 4:48 PM EDT 4 Units Left Upper Arm (Back ) Given 08/04/2025 1:44 PM EDT 4 Units Le ft Lower Abdomen lactated Ringer's infusion 75 mL/hr, intravenous, Continuous, Starting on Sun08/04/25 at 0745, Preprocedure New Bag 08/04/2025 7:35 AM EDT 75 mL/hr metoprolol succinate (TOPROL-XL) 24 Hour tablet 25 mg 25 mg, oral, Daily, First dose on Sun08/04/25 at 1415, Recovery & On Unit, Do not crush or chew. Given 08/05/2025 8:49 AM EDT 25 mg Given 08/04/2025 1:57 PM EDT 25 mg morphine injection 2 mg 2 mg, intravenous, Every 15 min PRN, severe pain, breakthrough pain, Starting on Sun08/04/25 at 1347, Recovery & On Unit Given 08/04/2025 1:57 PM EDT 2 mg ondansetron (PF) (ZOFRAN) injection 4 mg 4 mg, intravenous, Once as needed, nausea, vomiting, Starting on Sun08/04/25 at 1343, For 1 dose, Phase II/On Unit, Infuse over 2 minutes. oxyCODONE (ROXICODONE) immediate release tablet 15 mg 15 mg, oral, Every 4 hours PRN, severe pain, Starting on Sun08/04/25 at 1345, For 1 day, Recovery & On Unit Given 08/05/2025 6:50 AM EDT 15 mg Given 08/05/2025 1:57 AM EDT 15 mg Given 08/04/2025 8:47 PM EDT 15 mg oxyCODONE (ROXICODONE) immediate release tablet 5 mg 5 mg, oral, Once as needed, mild pain, Starting on Sun08/04/25 at 1343, For 1 dose, Phase II/On Unit oxyCODONE-acetaminophen (PERCOCET) 5-325 mg per tablet 1 tablet 1 tablet, oral, Once as needed, Mild pain, Starting on Sun08/04/25 at 1005, For 1 dose, Recovery (only) Given 08/04/2025 10:24 AM EDT 1 tablet senna (SENOKOT) tablet 17.2 mg 17.2 mg (2 tablet), oral, Nightly, First dose on Sun08/04/25 at 2100, Recovery & On Unit, Bowel Regimen - for prevention of constipation Given 08/04/2025 8:46 PM EDT 17.2 mg sodium chloride 0.9 % flush 10 mL 10 mL, intravenous, 2 times daily, First dose on Sun08/04/25 at 0900, Preprocedure sodium chloride 0.9 % flush 10 mL 10 mL, intravenous, As needed, line care, Starting on Sun08/04/25 at 0724, Preprocedure sodium chloride 0.9 % flush 10 mL 10 mL, intravenous, 2 times daily, First dose on Sun08/04/25 at 1415, Recovery & On Unit Given 08/04/2025 8:47 PM EDT 10 mL Given 08/04/2025 2:02 PM EDT 10 mL sodium chloride 0.9 % flush 10 mL 10 mL, intravenous, As needed, line care, Starting on Sun08/04/25 at 1345, Recovery & On Unit sodium chloride 0.9 % infusion 75 mL/hr, intravenous, Continuous, Starting on Sun08/04/25 at 1245, Recovery & On Unit, May finish IVF bag from the OR before starting this IVF order. Please discontinue this IVFs order when pt is tolerating PO fluids well. New Bag 08/05/2025 1:57 AM EDT 75 mL/hr 75 m L/hr New Bag 08/04/2025 1:34 PM EDT 75 mL/hr 75 mL/hr tamsulosin (FLOMAX) 24 hr capsule 0.4 mg 0.4 mg, oral, Daily, First dose on Sun08/04/25 at 1415, Recovery & On Unit, For oral administration: capsules should be swallowed whole (Do not crush, chew, or open). For tube administration: open capsule and administer with water (granules should NOT be crushed). Given 08/05/2025 8:49 AM EDT 0.4 mg Given 08/04/2025 1:57 PM EDT 0.4 mg documented in this encounter Discontinued Medications Medication Sig Discontinue Reason Start Date End Da te tiZANidine (ZANAFLEX) 2 mg tablet Take 2 tablets (4 mg total) by mouth every 8 (eight) hours. as directed for 30 days Formulary change 07/21/2025 ketorolac (TORADOL) 10 mg tablet Take 1 tablet (10 mg total) by mouth every 6 (six) hours if needed for moderate pain for up to 5 days. Stop Taking at Discharge 07/25/2025 08/05/2025 documented as of this encounter Active and Recently Administered Medications Times are shown in EDT. Scheduled Medication Order 08/03/2025 08/04/2025 08/05/2025 aspirin EC tablet 81 mg 81 mg, oral, Daily, First dose on Sun08/04/25 at 1415, Recovery & On Unit, Do not crush, chew, or split. 1357 (Given - Provider: Puja Khan RN) 0810 (Given - Provider: Faina Lay RN) atorvastatin (LIPITOR) tablet 40 mg 40 mg, oral, Daily, First dose on Sun08/04/25 at 1415, Recovery & On Unit 1357 (Given - Provider: Puja Khan RN) 0849 (Given - Provider: Faina Lay, CH[place]) ceFAZolin (ANCEF) 2 g in sterile water 20 mL IV syringe (COMPLETED) 2 g, intravenous, Administer over 3 Minutes, Once, On Sun08/04/25 at 0615, For 1 dose, Preprocedure, -IV Push over 3 minutes -Administer within 60 minutes of incision, Indication: Prophylaxis-Surgical 08 (New Bag - Provider: NICOLE Bueno) ceFAZolin (ANCEF) 2 g in sterile water 20 mL IV syringe (COMPLETED) 2 g, intravenous, Administer over 3 Minutes, Every 8 hours, First dose (after last reorder) on Sun08/04/25 at 1530, For 2 doses, Recovery & On Unit, -IV Push over 3 minutes -Administer within 60 minutes of incision, Indication: Prophylaxis-Surgical 1642 (Given - Provider: Puja Khan RN)2335 (Given - Provider: Bashir Pisano RN) ciprofloxacin (CIPRO) tablet 500 mg 500 mg, oral, 2 times daily, First dose on Sun08/04/25 at 2100, For 5 days, Recovery & On Unit, Administer 2 hours before or after multivitamins, antacids, or other products containing polyvalent cations (i.e., calcium, iron, magnesium, selenium, zinc). IF RECEIVING ENTERAL NUTRITION: Hold tube feeds 2 hours before and 2 hours after administration., Indication: Urinary Tract/Genitourinary 2045 (Given - Provider: Bashir Pisano, CHICO) 0849 (Given - Provider: Faina Lay, [place]ICO) dexAMETHasone (DECADRON) injection 4 mg (COMPLETED) 4 mg, intravenous, Once, On Sun08/04/25 at 0615, For 1 dose, Preprocedure 06 (Given - Provider: Christopher Hager RN) insulin lispro injection 2-12 Units 2-12 Units, subcutaneous, 3 times daily with meals, First dose on Sun08/04/25 at 1245, Recovery & On Unit, Indication: Total Daily Dose (TDD) 40 - 80 units. Correction Scale: Moderate Dose Administer with meal and/or mealtime dose of insulin to correct high blood glucose If mealtime insulin dose not given (e.g. patient NPO or not eating), still administer correction factor for high blood glucose 1344 (Given - Provider: Puja Khan RN)1648 (Given - Provider: Puja Khan RN) 0835 (Not Given - Provider: Faina Lay RN - Reason: Order parameters not met - Comment: bs: [phone] (Canceled Entry - Provider: Automatic Discharge Provider - Comment: Automatically canceled at discontinue of medication order) metoprolol succinate (TOPROL-XL) 24 Hour tablet 25 mg 25 mg, oral, Daily, First dose on Sun08/04/25 at 1415, Recovery & On Unit, Do not crush or chew. 1357 (Given - Provider: Puja Khan RN) 0849 (Given - Provider: Faina Lay, CHICO) senna (SENOKOT) tablet 17.2 mg 17.2 mg (2 tablet), oral, Nightly, First dose on Sun08/04/25 at 2100, Recovery & On Unit, Bowel Regimen - for prevention of constipation 2045 (Given - Provider: aBshir Pisano RN) sodium chloride 0.9 % flush 10 mL(Linked Group 1) 10 mL, intravenous, 2 times daily, First dose on Sun08/04/25 at 0900, Preprocedure 1331 (Not Given - Provider: Puja Khan RN - Reason: Other)2047 (Not Given - Provider: Bashir Pisano RN - Reason: See Provider Order) 0848 (Not Given - Provider: Faina Lay RN - Reason: Other - Comment: iv fluids infusing) sodium chloride 0.9 % flush 10 mL(Linked Group 2) 10 mL, intravenous, 2 times daily, First dose on Sun08/04/25 at 1415, Recovery & On Unit 1402 (Given - Provider: Puja Khan RN)2047 (Given - Provider: Bashir Pisano RN) 0848 (Not Given - Provider: Faina Lay RN - Reason: Other - Comment: iv fluids infusing) tamsulosin (FLOMAX) 24 hr capsule 0.4 mg 0.4 mg, oral, Daily, First dose on Sun08/04/25 at 1415, Recovery & On Unit, For oral administration: capsules should be swallowed whole (Do not crush, chew, or open). For tube administration: open capsule and administer with water (granules should NOT be crushed). 1357 (Given - Provider: Puja Khan RN) 0849 (Given - Provider: Faina Lay RN) Continuous Medication Order 08/03/2025 08/04/2025 08/05/2025 lactated Ringer's infusion 75 mL/hr, intravenous, Continuous, Starting on Sun08/04/25 at 0745, Preprocedure 0735 (New Bag - Provider: NICOLE Bueno)0955 (Anesthesia Volume Adjustment - Provider: NICOLE Bueno) 1257 (Due: Order Ending - Provider: Automatic Discharge Provider - Comment: [Order ends at this time. Document the following action when infusion is complete: Stopped]) sodium chloride 0.9 % infusion 75 mL/hr, intravenous, Continuous, Starting on Sun08/04/25 at 1245, Recovery & On Unit, May finish IVF bag from the OR before starting this IVF order. Please discontinue this IVFs order when pt is tolerating PO fluids well. 1334 (New Bag - Provider: Puja Khan RN) 0157 (New Bag - Provider: Bashir Pisano RN)1257 (Due: Order Ending - Provider: Automatic Discharge Provider - Comment: [Order ends at this time. Document the following action when infusion is complete: Stopped]) PRN Medication Order 08/03/2025 08/04/2025 08/05/2025 albuterol 2.5 mg /3 mL (0.083 %) nebulizer solution 2.5 mg 2.5 mg, nebulization, Every 8 hours PRN, wheezing, Starting on Sun08/04/25 at 1345, Recovery & On Unit cloNIDine (CATAPRES) tablet 0.1 mg 0.1 mg, oral, Nightly PRN, high blood pressure, Starting on Sun08/04/25 at 1345, Recovery & On Unit cyclobenzaprine (FLEXERIL) tablet 10 mg 10 mg, oral, 3 times daily PRN, muscle spasms, Starting on Sun08/04/25 at 1345, Recovery & On Unit dextrose (D50W) 50% injection 12.5 g 12.5 g, intravenous, Every 15 min PRN, low blood sugar, moderate hypoglycemia *Patient is Unconscious, NPO, unable to swallow: BG 54 - 69 mg/dl*, Starting on Sun08/04/25 at 1221, Recovery & On Unit dextrose (D50W) 50% injection 25 g 25 g, intravenous, Every 15 min PRN, low blood sugar, severe hypoglycemia *Patient is Unconscious, NPO, unable to swallow: BG LESS than 54 mg/dL*, Starting on Sun08/04/25 at 1221, Recovery & On Unit dextrose 15 gram/60 mL oral solution 15 g 15 g, oral, Every 15 min PRN, low blood sugar, hypoglycemia *Patient conscious AND able to drink and swallow safely*, Starting on Sun08/04/25 at 1221, Recovery & On Unit dextrose 15 gram/60 mL oral solution 30 g 30 g, oral, Every 15 min PRN, low blood sugar, hypoglycemia *Patient conscious AND able to drink and swallow safely*, Starting on Sun08/04/25 at 1221, Recovery & On Unit diphenhydrAMINE (BENADRYL) injection 12.5 mg 12.5 mg, intravenous, Once as needed, itching, Starting on Sun08/04/25 at 1343, For 1 dose, Phase II/On Unit fentaNYL (PF) (SUBLIMAZE) injection 50 mcg (CANCELED) 50 mcg, intravenous, Every 10 min PRN, moderate pain, Starting on Sun08/04/25 at 1005, For 4 doses, Recovery (only) 1025 (Given - Provider: Rosi Still RN)1101 (Given - Provider: Rosi Still RN) glucagon HCL injection 1 mg 1 mg, intramuscular, Once as needed, low blood sugar, severe hypoglycemia, Starting on Sun08/04/25 at 1221, For 1 dose, Recovery & On Unit lidocaine-EPINEPHrine (XYLOCAINE W/EPI) 1 %-1:100,000 injection (CANCELED) As needed, Starting on Sun08/04/25 at 0806, Intraprocedure 0844 (Given - Provider: Xin Dave MD) magnesium hydroxide (MILK OF MAGNESIA) 400 mg/5 mL suspension 30 mL 30 mL, oral, Daily PRN, constipation, Starting on Sun08/04/25 at 1345, Recovery & On Unit, 1st line for treatment of constipation - give scheduled if no bowel movement in past 24 hours morphine injection 2 mg 2 mg, intravenous, Every 15 min PRN, severe pain, breakthrough pain, Starting on Sun08/04/25 at 1347, Recovery & On Unit 1357 (Given - Provider: Puja Khan RN) ondansetron (PF) (ZOFRAN) injection 4 mg 4 mg, intravenous, Once as needed, nausea, vomiting, Starting on Sun08/04/25 at 1343, For 1 dose, Phase II/On Unit, Infuse over 2 minutes. oxyCODONE (ROXICODONE) immediate release tablet 15 mg 15 mg, oral, Every 4 hours PRN, severe pain, Starting on Sun08/04/25 at 1345, For 1 day, Recovery & On Unit 1642 (Given - Provider: Puja Khan RN)2047 (Given - Provider: Bashir Pisano RN) 0157 (Given - Provider: Bashir Pisano RN)0650 (Given - Provider: Bashir Pisano RN) oxyCODONE (ROXICODONE) immediate release tablet 5 mg 5 mg, oral, Once as needed, mild pain, Starting on Sun08/04/25 at 1343, For 1 dose, Phase II/On Unit oxyCODONE-acetaminophen (PERCOCET) 5-325 mg per tablet 1 tablet (COMPLETED) 1 tablet, oral, Once as needed, Mild pain, Starting on Sun08/04/25 at 1005, For 1 dose, Recovery (only) 1024 (Given - Provider: Rosi Still RN) sodium chloride 0.9 % flush 10 mL(Linked Group 1) 10 mL, intravenous, As needed, line care, Starting on Sun08/04/25 at 0724, Preprocedure sodium chloride 0.9 % flush 10 mL(Linked Group 2) 10 mL, intravenous, As needed, line care, Starting on Sun08/04/25 at 1345, Recovery & On Unit thrombin (THROMBIN-JMI) topical solution (CANCELED) As needed, Starting on Sun08/04/25 at 0805, Intraprocedure 0844 (Given - Provider: Xin Dave MD) Linked Groups Order Group 1: Insert peripheral IV (CANCELED) STAT, Once, On Sun08/04/25 at 0725, For 1 occurrence, Preprocedure And Maintain IV access (CANCELED) Until discontinued, Starting on Sun08/04/25 at 0725, Until Specified, Preprocedure And Saline lock IV (CANCELED) Routine, Once, On Sun08/04/25 at 0725, For 1 occurrence, Preprocedure And sodium chloride 0.9 % flush 10 mLJump to med 10 mL, intravenous, 2 times daily, First dose on Sun08/04/25 at 0900, Preprocedure And sodium chloride 0.9 % flush 10 mLJump to med 10 mL, intravenous, As needed, line care, Starting on Sun08/04/25 at 0724, Preprocedure Group 2: Insert peripheral IV (CANCELED) STAT, Once, On Sun08/04/25 at 1346, For 1 occurrence, Recovery & On Unit And Maintain IV access (CANCELED) Until discontinued, Starting on Sun08/04/25 at 1346, Until Specified, Recovery & On Unit And Saline lock IV (CANCELED) Routine, Once, On Sun08/04/25 at 1346, For 1 occurrence, When tolerating PO fluids, Recovery & On Unit And sodium chloride 0.9 % flush 10 mLJump to med 10 mL, intravenous, 2 times daily, First dose on Sun08/04/25 at 1415, Recovery & On Unit And sodium chloride 0.9 % flush 10 mLJump to med 10 mL, intravenous, As needed, line care, Starting on Sun08/04/25 at 1345, Recovery & On Unit documented in this encounter Orders Medications Ordered That Benjy ht Not Have Been Administered Count Last Ordered Date First Ordered Date albuterol 2.5 mg /3 mL (0.08 3 %) nebulizer solution 2.5 mg 2 08/04/2025 ceFAZolin (ANCEF) 2 g in alejo rile water 20 mL IV syringe 1 08/04/2025 cloNIDine (CATAPRES) tablet 0.1 mg 1 2024 cyclobenzaprine (FLEXERIL) tablet 10 mg 1 1 dextrose (D50W) 50% injection 12.5 g 1 07/16 dextrose (D50W) 50% injection 25 g 1 2024 dextrose 15 gram/60 mL oral solution 15 g 1 08/04/2025 dextrose 15 gram/60 mL oral solution 30 g 1 08/04/2025 diphenhydrAMINE (BENADRYL) i njection 12.5 mg 1 08/04/2025 glucagon HCL injection 1 mg 1 08/04/2025 haloperidol lactate (HALDOL) injection 1 mg 1 08/04/2025 HYDROmorphone (DILAUDID) injection 0.5 mg 1 08/04/2025 lactated Ringer's infusion 2 08/04/2025 lidocaine-EPINEPHrine (XYLOC BERT W/EPI) 1 %-1:100,000 injection 1 08/04/2025 magnesium hydroxide (MILK OF MAGNESIA) 400 mg/5 mL suspension 30 mL 1 08/04/2025 morphine 2 mg/mL injection 2 mg 1 ondansetron (PF) (ZOFRAN) injection 4 mg 1 08/04/2025 oxyCODONE (ROXICODONE) immed iate release tablet 5 mg 1 08/04/2025 sodium chloride 0.9 % flush 10 mL 3 025 sodium chloride 0.9 % infusion 1 08/04/2025 thrombin (THROMBIN-JMI) topical solution 1 08/04/2025 Lab Orders Without Results Count Last Ordered D ate First Ordered Date POCT GLUCOSE, BLOOD 4 08/05/2025 08/04/20 25 Nursing Count Last Ordered Date First Orde red Date BLADDER SCAN 1 08/04/2025 Admission Count Last Ordered Date First Orde red Date INITIATE EXTENDED RECOVERY 1 08/04/2025 Discharge Count Last Ordered Date First Orde red Date DISCHARGE PATIENT 1 08/05/2025 documented in this encounter Additional Health Concerns Active Problems Noted Date Diagnosed Date Autogenerated Problem 08/05/2025 documented as of this encounter Care Teams Travel Service Consultant Relationship Specialty Start Date End Date Clifford Kim MD [address] [place] PCP - General Internal Medicine 07/08/25 documented as of this encounter
--- OUTSIDE RECORDS SUMMARY | 2025-08-04 07:30 | XMS_ITS | Encounter Summary ---
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 Name Role Phone Clifford Kim MD Primary Care Provider [phone] Reason for Visit * Auth/Cert (Routine) Specialty Diagnoses / Procedures Referred By Donald t Referred To Contact Diagnoses Radiculopathy, lumbar region Radiculopathy, lumbar region Procedures ID DIOR W DECMPR NVR ROOT EXC HIVD 1 INTERSPACE Right L5-S1 minimally invasive discectomy Xin Dave MD [address] [place] [address] Phone: tel: fax: [facility] OR [address] [place] [phone] Phone: tel: Referral ID Status Reason Start Date Expiration Date Visits Re quested Visits Authorized [id number] 1 1 Encounter Details Date Type Department Care Team (Late st Contact Info) Description 08/04/2025 7:30 AM EDT - 08/04/2025 9:45 AM EDT Surgery [facility] OR [address] [place] [phone] Xin Dave MD [address] [place] [address] Right L5-S1 minimally invasive discectomy [75106 (CPT )] Surgery Details Date/Time Status Location OR Service Patient Class Case Cl ass Case Type Trauma Case? 08/04/2025 7:30 AM Posted [facility] OR [address] [place] [address] Outpatient Surgery F - Elective Panel 1 Procedure LRB Anes Op Region Wound Class Comments Right L5-S1 minimally invasi ve discectomy Right general Back Class I/ Clean Surgeon Surgeon Role Service Panel Xin Dave MD Primary Neurosurgery 1 Ravi Hernandez PA Assisting Neurosurgery 1 Case Notes C-Arm, Microscope, chest rolls Special Needs Chest rolls documented in this encounter Social History Tobacco Use Types Packs/Day Years [...] care for your loved ones. For example, children's book author or elderly care for an older adult? [...] Sign Reading Time Taken Comments Blood Pressure 135/90 08/04/2025 5:57 AM EDT Pulse 77 08/04/2025 5:57 AM EDT Temperature 36 C (96.8 F) 08/04/2025 5:57 AM EDT Respiratory Rate 16 08/04/2025 5:57 AM EDT Oxygen Saturation 100% 08/04/2025 5:57 AM EDT Inhaled Oxygen Concentration - - Weight 81.6 kg (180 lb) 08/04/2025 6:08 AM EDT Height 165.1 cm (5' 5 ) 08/04/2025 6:08 AM EDT Body Mass Index 29.95 08/04/2025 6:08 AM EDT documented in this encounter Functional Status * Calculated C-SSRS Risk Score (Lifetime/Recent) Answer Date of Assessment Author No Risk Indicated 08/02/2025 11:46 AM EDT Italia Spangler RN * [place] Suicide Severity Rating Scale (Screener/Recent Self-Report) Question Answer Date of Assessment Author 1. Wish to be (Past 1 Month) No 11:46 AM RADHAT Italia Montiel RN 2. Non-Specific Active Suici jo Thoughts (Past 1 Month) No 08/02/2025 11:46 AM EDT Burt Montiel RN 6. Suicidal Behavior (Lifetime) No 11:46 AM EDT Italia Montiel RN documented as of this encounter Discharge Instructions * Discharge Instructions* BLAIRE Lubin - 08/05/2025 9:43 AM EDT Please call the office to schedule your postop appointment for 10-14 days, #[phone]. Call withany concerns or questions, like wound [...] within 12 hours or as directed by MD. 30 each 07/25/2025 08/24/20 25 metoprolol succinate [...] 81.6 kg (180 lb), SpO2 96%. Vitals: 08/04/25195525 0246 08/05/25 0734 08/05/25 1040 BP: 120/73 [...] project posterior to the L5-S1 interspace. Code 78129 The dose-area product for this procedure was 170.40 uGy*m2. PQRI CPT II G9500 -------- FINAL REPORT -------- Dictated By: Yuniel Cohn Dictated Date: 08/04/2025 10:00 ET Assigned Physician: Yuniel Cohn Reviewed and Electronically Signed By: Yuniel Cohn Signed Date: 08/04/2025 10:02 ET Workstation ID: [id number] Transcribed By: Self Edit Transcribed Date: 08/04/2025 [...] discectomy (R) OPERATIVE NOTE Date: 08/04/2025 Location: [facility] OR Name: Jj Olivier, : 1970, Diagnosis Pre-op Diagnosis * Radiculopathy, lumbar region [M54.16] Post-op Diagnosis * Radiculopathy, lumbar region [M54.16] Procedures Right L5-S1 minimally invasive discectomy 25169 - ID DIOR W DECMPR INCL PART FACETECTOMY/EXC HIVD REEXPLORE SGL INTERSPCE LUMB Indications: Jj Oliiver is an 54 y.o. male who is having surgery for Radiculopathy, lumbar region. Surgeon(s) & Signal Intelligence/Electronic Warfare(s) * Xin Dave MD - Primary * [...] repeat lateral image was taken with a Somis 4 at this level and this appeared to be at the caudal aspect of the disc space therefore, the laminotomy was extending further cranially to encompass more of the foramen. A Somis 4 and the forward angled curettes were used to identify the edge of bone and protected the exiting nerve root with a Somis 4 while the 2 mm Kerrison was used to undercut and widen the foramen. The reverse angled curette was passed ventral to the descending root with downward pressure on the disc annulus sweeping laterally in order to remove the calcified adherent fragments overlying the disc space. A David probe now passed easily down the course of the rootwhich appeared relaxed and pulsatile. Thrombin Gelfoam was used for epidural hemostasis and bipolarcautery and Gelfoam used for minor muscle bleeding as a tube was removed. The incision was closed with a 3-0 Vicryl [id number] in the fascia, 3-0 Vicryl interrupteds inthe [...] Hager RN - 08/04/2025 6:07 AM EDT [phone] documented in this encounter Plan of Treatment Upcoming Encounters Date Type Department Care Team (Latest Contact Info) Description 09/24/2025 7:30 AM EST Hospital Encounter [facility] OR [address] [place] [phone] Parish Warren MD [address] [place] [phone] 09/24/2025 7:30 AM EST - 09/24/2025 8:45 AM EST Surgery [facility] [address] [place] [phone] Parish Warren MD [address] [place] [phone] EXCISION LIPOMA LEFT AXILLA [37377 (CPT )] 10/13/2025 8:00 AM EST Office Visit General Surgery [facility] [address] [facility] [address] [place] [phone] Parish Warren MD [address] [place] [phone] Scheduled Orders Name Type Priority Associated Diagnoses [...] 1 VIEW Routine 08/04/2025 9:35 AM EDT ID DIOR W DECMPR INCL PART FACETECTOMY/EXC HIVD [...] - 100 mg/dL 08/05/2025 10:44 AM EDT [facility] Blood Capillary blood specimen / Unknown 08/05/2025 10:43 AM EDT 08/05/2025 10:45 AM EDT us Xin Dave MD LAB POINT OF CARE TE ST DOCKED DEVICE UNSOLICITED RESULTS Final Result [facility] [address] [place] [address], [place] [phone] * (ABNORMAL) POCT Glucose, blood (08/05/2025 7:59 AM EDT) Glucose POCT 142(H) 70 - 100 mg/dL 08/05/2025 8:01 AM EDT [facility] Blood Capillary blood specimen / Unknown 08/05/2025 7:59 AM EDT 08/05/2025 8:03 AM EDT Xin Dave MD LAB POINT OF CARE TE ST DOCKED DEVICE UNSOLICITED RESULTS Final Result Performing Organization Address City/[facility]/ZIP Co de Phone Number [facility] [address] [place] [address], [place] [phone] * (ABNORMAL) POCT Glucose, blood (08/04/2025 8:33 PM EDT) Glucose POCT 142(H) 70 - 100 mg/dL 08/04/2025 8:35 PM EDT [facility] Blood Capillary blood specimen / Unknown 08/04/2025 8:33 PM EDT 08/04/2025 8:36 PM EDT Xin Dave MD LAB POINT OF CARE TE ST DOCKED DEVICE UNSOLICITED RESULTS Final Result Performing Organization Address [facility]/ZIP Co de Phone Number [facility] [address] [place] [address], [place] [phone] * (ABNORMAL) POCT Glucose, blood (08/04/2025 4:16 PM EDT) Glucose POCT 164(H) 70 - 100 mg/dL 08/04/2025 4:17 PM EDT [facility] Blood Capillary blood specimen / Unknown 08/04/2025 4:16 PM EDT 08/04/2025 4:18 PM EDT Xin Dave MD LAB POINT OF CARE TE ST DOCKED DEVICE UNSOLICITED RESULTS Final Result Performing Organization Address City/[facility]/ZIP Co de Phone Number [facility] [address] [place] [address], [place] [phone] * (ABNORMAL) POCT Glucose, blood (08/04/2025 1:36 PM EDT) Glucose POCT 206(H) 70 - 100 mg/dL 08/04/2025 1:40 PM EDT [facility] Blood Capillary blood specimen / Unknown 08/04/2025 1:36 PM EDT 08/04/2025 1:41 PM EDT us Xin Dave MD LAB POINT OF CARE TE ST DOCKED DEVICE UNSOLICITED RESULTS Final Result [facility] [address] [place] [address], [place] [phone] * XR Spine 1 View (08/04/2025 9:35 AM EDT) Anatomical Region Laterality Modality Spine Radio Fluoroscop y 08/04/2025 10:0 0 AM EDT Impressions 08/04/2025 10:02 AM EDT Metallic probes project posterior to the L5-S1 interspace. Code 53035 The dose-area product for this procedure was 170.40 uGy*m2. PQRI CPT II G9500 -------- FINAL REPORT -------- Dictated By: Yuniel Cohn Dictated Date: 08/04/2025 10:00 ET Assigned Physician: Yuniel Cohn Reviewed and Electronically Signed By: Yuniel Cohn Signed Date: 08/04/2025 10:02 ET Workstation ID: [id number] Transcribed By: Self Edit Transcribed Date: 08/04/2025 [...] a metallic probe projecting posterior to the L5-[id number]. The alignment of the included bony structures is anatomic. Nofracture is seen. IMPRESSION: Metallic probes project posterior to the L5-S1 interspace. Code 32272 The dose-area product for this procedure was 170.40 uGy*m2. PQRI CPT II G9500 -------- FINAL REPORT -------- Dictated By: Yuniel Cohn Dictated Date: 08/04/2025 10:00 ET Assigned Physician: Yuniel Cohn Reviewed and Electronically Signed By: Yuniel Cohn Signed Date: 08/04/2025 10:02 ET Workstation ID: [id number] Transcribed By: Self Edit Transcribed Date: 08/04/2025 10:00 ET us Xin Dave MD IMG XR PROCEDURES Final Result * ECG 12 lead - Procedural (No Charge) (08/04/2025 6:18 AM EDT) Ventricular Rate ECG 78 BPM GEMUSE Atrial Rate 78 BPM GEMUSE P-R Interval 130 ms GEMUSE QRS Duration 80 ms GEMUSE Q-T Interval 396 ms GEMUSE QTc 451 ms GEMUSE P Wave Austin 32 degrees GEMUSE R Austin 9 degrees GEMUSE T [place] 12 degrees GEMUSE ECG Interpretation Normal sinus rhythm Normal ECG When compared with ECG of 21-JUL-2025 23:51, No significant change was found Confirmed by MD Harjeet, Jayce ([id number]) on 08/04/2025 9:16:48 PM GEMUSE 08/04/2025 6:18 AM EDT 08/04/2025 9:16 PM EDT us Xin Dave MD ECG ORDERABLES Final Result GEMUSE * (ABNORMAL) POCT Glucose, blood (08/04/2025 5:58 AM EDT) Glucose POCT 122(H) 70 - 100 mg/dL 08/04/2025 5:59 AM EDT [facility] Blood Capillary blood specimen / Unknown 08/04/2025 5:58 AM EDT 08/04/2025 6:00 AM EDT us Xin Dave MD LAB POINT OF CARE TE ST DOCKED DEVICE UNSOLICITED RESULTS Final Result [facility] [address] [place] [address], [place] [phone] documented in this encounter Visit Diagnoses Diagnosis Radiculopathy, lumbar region- Primary Thoracic or lumbosacral neuritis or radiculitis, unspecified Lipoma of left axilla- Primary Radiculopathy, lumbar region Thoracic or lumbosacral neuritis or radiculitis, unspecified Lipoma of left axilla documented in this [...] Bag 08/04/2025 7:35 AM EDT 75 mL/hr lidocaine-EPINEPHrine (XYLOCAINE W/EPI) 1 %-1:100,000 injection As needed, Starting on Sun08/04/25 at 0806, Intraprocedure Given 08/04/2025 8:44 AM EDT 1 mL Back metoprolol succinate (TOPROL-XL) 24 Hour tablet 25 [...] Given 08/04/2025 1:57 PM EDT 0.4 mg thrombin (THROMBIN-JMI) topical solution As needed, Starting on Sun08/04/25 at 0805, Intraprocedure Given 08/04/2025 8:44 AM EDT 10,000 Units Back documented in this encounter Discontinued Medications Medication [...] 0849 (Given - Provider: Faina Lay RN) atorvastatin [...] within 60 minutes of incision, Indication: Prophylaxis-Surgical 0826 (New Bag - Provider: NICOLE Bueno) ceFAZolin (ANCEF) 2 g in sterile water 20 mL IV syringe (COMPLETED) 2 g, intravenous, Administer over 3 Minutes, Every 8 hours, First dose (after last reorder) on Sun08/04/25 at 1530, For 2 doses, Recovery & On Unit, -IV Push over 3 minutes -Administer within 60 minutes of incision, Indication: Prophylaxis-Surgical 1642 (Given - Provider: Puja I Bill, RN)2335 (Given - Provider: Bashir Pisano RN) [...] Urinary Tract/Genitourinary 2045 (Given - Provider: Bashir Pisano RN) 0849 (Given - Provider: Faina Lay, [place]) dexAMETHasone (DECADRON) injection 4 mg (COMPLETED) 4 mg, intravenous, Once, On Sun08/04/25 at 0615, For 1 dose, Preprocedure 0626 (Given - Provider: Christopher Hager RN) insulin [...] Khan RN) 0835 (Not Given - Provider: aFina Lay RN - Reason: Order parameters not [...] prevention of constipation 2045 (Given - Provider: Bashir Pisano RN) sodium chloride 0.9 % flush [...] Unit 1402 (Given - Provider: Puja Khan RN)2046 (Given - Provider: Bashir Pisano RN) 0848 [...] well. 1334 (New Bag - Provider: Puja Khan, CH[place]) 0157 (New Bag - Provider: Bashir Pisano [...] 1 08/04/2025 lactated Ringer's infusion 2 08/04/2025 magnesium hydroxide (MILK OF MAGNESIA) 400 mg/5 mL suspension 30 mL 1 08/04/2025 morphine 2 mg/mL injection 2 mg 1 ondansetron (PF) (ZOFRAN) injection 4 mg 1 08/04/2025 oxyCODONE (ROXICODONE) immed iate release tablet 5 mg 1 08/04/2025 sodium chloride 0.9 % flush 10 mL 3 025 sodium chloride 0.9 % infusion 1 08/04/2025 Lab Orders Without Results Count Last Ordered D ate First Ordered Date POCT GLUCOSE, BLOOD 4 08/05/2025 08/04/20 Nursing Count Last Ordered Date First Orde red Date BLADDER SCAN 1 08/04/2025 Admission Count Last Ordered Date First Orde red Date INITIATE EXTENDED RECOVERY 1 08/04/2025 Discharge Count Last Ordered Date First Orde red Date DISCHARGE PATIENT 1 08/05/2025 documented in this encounter Additional Health Concerns Active Problems Noted Date Diagnosed Date Autogenerated Problem 08/05/2025 documented as of this encounter Care Teams Steel Floor Pan Placing Supervisor Relationship Specialty Start Date End Date Clifford Kim MD [address] [facility] [place] PCP - General Internal Medicine 07/08/25 documented as of this encounter
--- OUTSIDE RECORDS SUMMARY | 2025-08-04 07:36 | XMS_ITS | Encounter Summary ---
Author Organization [facility] Address [address] [place] [phone] Care Team Providers Care Call Centre Supervisor Name Role Phone Clifford Kim MD Primary Care Provider [phone] Reason for Visit * Auth/Cert (Routine) Specialty Diagnoses / Procedures Referred By Contac t Referred To Contact Diagnoses Radiculopathy, lumbar region Radiculopathy, lumbar region Procedures IL DIOR W DECMPR NVR ROOT EXC HIVD 1 INTERSPACE Right L5-S1 minimally invasive discectomy Xin Guevara MD [address] [place] [address] Phone: tel: fax: [facility] Main OR [address] [place] [address] Phone: tel: Referral ID Status Reason Start Date Expiration Date Visits Re quested Visits Authorized [id number] 1 1 Encounter Details Date Type Department Care Team (Late st Contact Info) Description 08/04/2025 7:36 AM EDT Anesthesia Event [facility] Main OR [address] [place] [address] Jamaica Arce MD [address] [place] [address] Kb Lau SRNA Anesthesia Record Procedure Summary Procedure Name Responsible Anesthesiologist Anesthesia Start Time Anesthesia Stop Time Right L5-S1 minimally invasive discectomy (Right: Back) Jamaica Arce MD 08/04/25 0736 08/04/25 0955 Events Date Time Event Comment 08/04/2025 0722 0735 In Room 0736 An Start 0736 An Start Data The patient wa s reevaluated immediately before moderate or deep sedation use and before anesthesia induction. 0740 An Induction 0749 An Intubation 0753 Anesthesia Ready 0844 Proc Start 0944 Proc Fin 0948 An Extubation 0948 an stop data 0949 Out of Room 0955 Handoff to RN I completed my handoff to the receiving nurse during which we: 1. Identified the patient 2. Identified the responsible provider 3. Reviewed the pertinent medical history 4. Discussed the surgical course 5. Reviewed intra-op anesthesia management and issues during anesthesia 6. Set expectations for post-procedure period 7. Allowed opportunity for questions and acknowledgement of understanding. 0955 An Stop Meds Name Total midazolam 1 mg/mL 2 mg fentaNYL (SUBLIMAZE) injection 100 mcg propofol (DIPRIVAN) injection 10 mg/mL 1 80 mg rocuronium 70 mg ondansetron 2 mg/mL 4 mg lidocaine PF (XYLOCAINE-MPF) local injec tion 2% 100 mg ceFAZolin (ANCEF) 2 g in sterile water 2 0 mL IV syringe 2 g HYDROmorphone (DILAUDID) injection 2 mg/ mL 0.8 mg sugammadex (BRIDION) injection 100 mg/mL 200 mg lactated Ringer's infusion 1,000 mL * Agents No agents on file. * Blood No blood administrations on file. Lines, Drains, and Airways Type Details Placement Removal Wound Incision; 08/04/25; N; Back; Medial 08/04/25 0000 by Mirta Dobbins RN Urethral Catheter Placement Date: 07/21/25; Placement Time: 2250; Inserted by: shauna gonzalez and juice phillips; Type: Double-lumen, Non-latex, Straight-tip; Size: 16 Fr.; Balloon Size: 10 mL; Urine Returned: Yes; Removal Date: 08/04/25; Removal Time: 0907/21/25 225 by Shauna Duarte RN 08/04/25 09 by Edith Mata RN Peripheral IV Placement Date: 08/04/25; Placement Time: 624; Catheter Size: 20 G; Orientation: Posterior, Right; Location: Hand; Site Prep: Chlorhexidine; Local Anesth: None; Inserted by: roderick burt; Insertion Attempts: 1; Patient Tolerance: Tolerated well; Removal Date: 08/05/25; Removal Time: 1031 08/04/25 06 by Christopher Burt RN 08/05/25 103 by Nancy Golden RN ETT Placement Date: 08/04/25; Placement Time: 748 (created via procedure documentation); Mask Ventilation: 2; Technique: Video laryngoscopy; Type: ETT; Cuffed: Yes; Blade Size: 3; Location: Oral; Insertion Attempts: 1; Placement Verification: Auscultation, Capnometry; Airway Comments: After pt was turned prone, jazzy not filling properly, ETT cuff checked, noted to be requiring more air. Pt oxygen sat 100%, TV diminishing over time. Pt was turned back into the supine position and ETT assessed with gliderscope and ETT cuff noted to be deflated, ETT exchanged using gliderscope at around 0810am. ; Removal Date: 08/04/25; Removal Time: 0908/04/25 07 by Kb Lau, NICOLE 08/04/25947 by NICOLE Bueno documented in this encounter Social History Tobacco [...] care for your loved ones. For example, director of child welfare services or elderly care for an older adult? [...] on file documented as of this encounter Functional Status * Calculated C-SSRS Risk Score (Lifetime/Recent) Answer Date of Assessment Author No Risk Indicated 08/04/2025 2:20 PM EDT Nancy Golden RN * [place] Suicide Severity Rating Scale (Screener/Recent Self-Report) Question Answer Date of Assessment Author 1. Wish to be (Past 1 Month) No 025 2:20 PM EDT Nancy Golden RN 2. Non-Specific Active Suici jo Thoughts (Past 1 Month) No 08/04/2025 2:20 PM EDT Nancy Golden RN 6. Suicidal Behavior (Lifetime) No 2:20 PM RADHAT Nancy Golden RN documented as of this encounter Progress Notes * NICOLE Bueno - 08/04/2025 2:31 PM EDT Addendum created 08/04/25 1431 by NICOLE Bueno Flowsheet accepted, Intraprocedure Meds edited, Orders acknowledged in Narrator * NICOLE Bueno - 08/04/2025 9:55 AM EDT Patient: Jj Olivier Procedure Summary Date: 08/04/25 Room / Location: [facility] OR / [facility] OR Anesthesia Start: 735 Anesthesia Stop: 954 Procedure: Right L5-S1 minimally invasive discectomy (Right: Back) Diagnosis: Radiculopathy, lumbar region (Radiculopathy, lumbar region) Surgeons: Xin Guevara MD Responsible Provider: Jamaica Arce MD Anesthesia Type: general ASA Status: 3 Anesthesia Plan: general Last Vitals: Vitals Value Taken Time BP 122/87 08/04/25 09:55 Temp 97.2 08/04/25 09:55 Pulse 81 08/04/25 09:55 Resp 14 08/04/25 09:55 SpO2 100 08/04/25 09:55 Pain Score: 8 Anesthesia Post Evaluation Patient location during evaluation: PACU Patient participation: complete - patient participated Level of consciousness: awake Pain score: 0 Pain management: adequate Airway patency: patent Anesthetic complications: no Cardiovascular status: acceptable and hemodynamically stable Respiratory status: acceptable and room air Hydration status: acceptable Nausea: No Vomiting: No There were no known notable events for this encounter. * NICOLE Bueno - 08/04/2025 8:52 AM EDTAssociated Order(s): Intubation General Information and Staff Patient location during procedure: OR Anesthesiologist: Jamaica Arce MD Other anesthesia staff: NICOLE Bueno Performed by: NICOLE Bueno Authorized by: Jamaica Arce MD Intubation Additional Comments After pt was turned prone, jazzy not filling properly, ETT cuff checked, noted to be requiring more air. Pt oxygen sat 100%, TV diminishing over time. Pt was turned back into the supine position and ETT assessed with gliderscope and ETT cuff noted to be deflated, ETT exchanged using gliderscope at around 0810am. Airway not difficult Reason: elective Final Airway Details Successful airway: ETT Cuffed: yes Successful intubation technique: video laryngoscopy Adjuncts used in placement: intubating stylet Endotracheal tube insertion site: oral Blade: Milad Blade size: #3 ETT size (mm): 8.0 Cormack-Lehane Classification: grade I - full view of glottis Placement verified by: chest auscultation and capnometry Cuff volume (mL): 8 Measured from: lips ETT to lips (cm): 22 Ventilation between attempts: none Final airway type: endotracheal airway Indications and Patient Condition Indications for airway management: anesthesia Sedation level: Yes Preoxygenated: yesSoft Tissue Damage: No Dentition Unchanged: Yes Patient position: sniffing MILS maintained throughout Mask difficulty assessment: 2 - vent by mask + OA or adjuvant +/- NMBA Start Time: 08/04/2025 7:49 AMStop Time: 08/04/2025 7:51 AM * Jamaica Arce MD - 08/04/2025 7:08 AM EDT 54 y.o. male scheduled for [IL DIOR W DECMPR NVR ROOT EXC HIVD 1 INTERSPACE [60672] (Rig*] Ht Readings from Last 1 Encounters: 08/04/25 1.651 m (65 ) Wt Readings from Last 1 Encounters: 08/04/25 81.6 kg (180 lb) Body mass index is 29.95 kg/m??. Medical History[1] Surgical History[2] Denies anesthesia complications Allergies[3] Medications Ordered Prior to Encounter[4] Current In-hospital Medications MEDSSCHEDULED[5] MEDSCONTINUOUS[6] MEDSPRN[7] Social History[8] Is the patient a current smoker (e.g. cigarette, cigar, pip, e-cigarette, or mariajuana)? Yes [] No[] Patient previously instructed to abstain from smoking on the day of procedure? Yes [] No[] Patient smoked on the day of procedure? Yes [] No[] ASPIRE smoking VBR: [] Not interested in quitting [] Interested in quitting- referred to treatment [] Interested in quitting - treatment provided Visit Vitals BP (!) 135/90 Pulse 77 Temp 36 ??C (96.8 ??F) Resp 16 Ht 1.651 m (65 ) Wt 81.6 kg (180 lb) SpO2 100% BMI 29.95 kg/m?? Smoking Status Never BSA 1.89 m?? Available cardiac studies reviewed: CT Abdomen Pelvis w Contrast Result Date: 08/02/2025 Narrative: PROCEDURE: Contrast enhanced CT of the abdomen and pelvis. HISTORY: Abdominal pain, acute, no prior medical history. COMPARISON: 05/24/2021. TECHNIQUE: Contrast-enhanced CT of the abdomen and pelvis with coronal and sagittal reformats. IV contrast dose: 90 mL [id number]-370. Dose length product: 1065 mGy-cm. FINDINGS: Stable irregular hyperattenuating material, possibly calcifications, in the anterior left diaphragmatic almita. Lung bases: Mild dependent atelectasis. Cardiac: Normal heart size. No coronary artery calcification. Liver: Mild steatosis. No focal lesion. Portal veins are patent. Biliary: Normal gallbladder and biliary tree. Pancreas: Normal. Spleen: Small calcified granulomas. Adrenal glands: Normal. Kidneys: There are a few small low-attenuation cortical lesions, probably cysts but too small for definitive characterization. Normal appearance of the ureters. Retroperitoneum: No mass or adenopathy. Abdominal vasculature: Normal. Bowel/mesentery: No obstruction or adenopathy. No mass or ascites. Mild sigmoid diverticulosis. Normal retrocecal appendix. Abdominal wall:Postsurgical scarring in the midline lumbar soft tissues. Postsurgical scarring in the right paramedian anterior upper abdominal wall. No mass or hernia. Pelvic nodes: No adenopathy. Pelvic organs: Normal. Bones: Degenerative changes of the spine. Posterior decompression at L4-5. Impression: No acute findings in the abdomen and pelvis. -------- FINAL REPORT -------- Dictated By: Tommie Lyman Dictated Date: 08/02/2025 14:29 ET Assigned Physician: Tommie Lyman Reviewed and Electronically Signed By: Tommie Lyman Signed Date: 08/02/2025 14:34 ET Workstation ID: [id number] Transcribed By: Self Edit Transcribed Date: 08/02/2025 14:29 ET MR Lumbar Spine wo Contrast Result Date: 07/21/2025 Narrative: INDICATION: Groin and bilateral leg radiculopathy, history of surgery/cauda equina. No rectal tone and urinary retention MR lumbar spine without gadolinium Comparison: None Findings: No scoliosis or spondylolisthesis. No acute fracture or pathologic bone lesion. Cauda equina and conus medullaris within normal limits. 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 Small central disc bulges at L3-L4, L4-L5 and L5-S1 along with facet arthropathy causing spinal canal stenosis and mild bilateral neural foraminal stenosis. Paraspinous musculature intact. Hemangioma in L4 vertebrae measuring 1.5 cm. Impression: 1. 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 2. Small central disc bulges at L3-L4, L4-L5 and L5-S1 along with facet arthropathy causing spinal canal stenosis and mild bilateral neural foraminal stenosis. 3. Hemangioma in L4 vertebrae measuring 1.5 cm. This document has been electronically signed by: Abi Gaspar MD on 07/21/2025 22:18:12 EKG Encounter Date: 07/21/25 ECG 12 lead Result Value Ventricular Rate ECG 80 Atrial Rate 80 P-R Interval 92 QRS Duration 80 Q-T Interval 364 QTc 419 P Wave [place] 51 R [place] 10 T [place] 12 ECG Interpretation Sinus rhythm with short IL Otherwise normal ECG When compared with ECG of 15-APR-2025 20:32, No significant change was found Confirmed by Pilar FORD JAMES ([id number]) on 07/22/2025 12:31:38 PM *Note: Due to a large number of results and/or encounters for the requested time period, some results have not been displayed. A complete set of results can be found in Results Review. ECHO No results found for this or any previous visit. mpression: ECHO February 2019 1. Normal LV size and systolic function. LVEF estimated to be 55-60%. 2. Normal right ventricular size and systolic function. 3. No significant valvular disease. 01/2019 Exercise MIBI Test stopped secondary to chest pain, dizziness, and diaphoresis SL nitro given x1 at 1:15, CP relieved after 1 min Resting tachycardia. No ECG evidence of ischemia during exercise Nuclear images to follow CATH No results found for this or any previous visit. LABS: Lab Results Component Value Date WBC 10.1 08/02/2025 HGB 15.5 08/02/2025 HCT 49.0 08/02/2025 MCV 88.1 08/02/2025 PLT 336 08/02/2025 Lab Results Component Value Date GLUCOSE 122 (H) 08/04/2025 CALCIUM 9.2 08/02/2025 NA 138 08/02/2025 K 5.4 08/02/2025 CO2 28 08/02/2025 CL 105 08/02/2025 BUN 15 08/02/2025 CREATININE 0.82 08/02/2025 Lab Results Component Value Date INR 0.9 07/21/2025 No results found for: PTT Denies cardiac, pulm, neuro, hepatic or renal s/sx. Patient meets ASA guidelines for NPO status. > 4 mets without anginal symptoms. Relevant labs, vitals, imaging, cardiac and pulmonary studies as well as HPI, Meds, Allergies, ROS,PMH, PSH, SH, and FH reviewed. Relevant Problems Other (+) Lipoma of left axilla Clinical information reviewed: Tobacco Allergies Meds Med Hx Surg Hx Fam Hx Soc Hx Anesthesia Plan ASA 3 Anesthesia Plan: general General Anesthesia Considerations: ETT Anesthesia Risks Discussed dental injury, nausea, pain, serious complications and allergic reaction Plan Factors Patient is not a current smoker Induction method: intravenous Postoperative administration of opioids is intended. Anesthetic plan and risks discussed with patient. Anesthesia Evaluation Airway Mallampati: III Thyromental distance: > 3 finger breadths Neck ROM: full Dental - normal exam Pulmonary breath sounds clear to auscultation (+) sleep apnea (-) asthma (pt denies) Cardiovascular (+) hypertension Rhythm: regular Rate: normal Neuro/Psych Comments: Back pain Mental Status: alert and oriented GI/Hepatic/Renal (+) chronic renal disease (kidney stones) Endo/Other (+) diabetes mellitus Abdominal PONV RISK SCORE: 2 Vitals: 07/21/25 1100 08/04/25 0557 08/04/25 0608 BP: (!) 135/90 Pulse: 77 Resp: 16 Temp: 36 ??C (96.8 ??F) SpO2: 100% Weight: 63.5 kg (140 lb) 81.6 kg (180 lb) Height: 1.651 m (65 ) 1.651 m (65 ) SpO2 Readings from Last 1 Encounters: 08/04/25 100% WBC Date Value Ref Range Status 08/02/2025 10.1 4.8 - 10.8 K/mcL Final RBC Date Value Ref Range Status 08/02/2025 5.60 (H) 4.50 - 5.50 M/mcL Final Hemoglobin Date Value Ref Range Status 08/02/2025 15.5 13.5 - 17.5 g/dL Final Hematocrit Date Value Ref Range Status 08/02/2025 49.0 42.0 - 54.0 % Final Platelets Date Value Ref Range Status 08/02/2025 336 130 - 400 K/mcL Final MCV Date Value Ref Range Status 08/02/2025 88.1 79.0 - 98.0 FL Final Allergies[9] STOP BANG: STOP-Bang Total Score: 3 (08/04/2025 6:06 AM) NPO Status: Time of Last Liquid: 2199 Time of Last Solid: 2199 [1] Past Medical History: Diagnosis Date Anxiety Arrhythmia Arthritis Asthma DM (diabetes mellitus) ([facility]/HCC V24, CMS/HCC V28) High cholesterol HTN (hypertension) Joint pain Sleep apnea [2] Past Surgical History: Procedure Laterality Date BACK SURGERY Pinch nerve sx [facility] I&D ABCESS SIMPLE OR SINGLE KNEE SURGERY Bilateral 1999 INFECTION NECK SURGERY ?2022 [facility] OTHER SURGICAL HISTORY [3] Allergies Allergen Reactions Lisinopril Anaphylaxis States tongue swelling [4] No current facility-administered medications on file prior to encounter. Current Outpatient Medications on File Prior to Encounter Medication Sig Dispense Refill aspirin 81 mg EC tablet Take 1 tablet (81 mg total) by mouth 1 (one) time each day. atorvastatin (LIPITOR) 40 mg tablet Take 1 tablet (40 mg total) by mouth 1 (one) time each day. blood sugar diagnostic (FreeStyle Lite Strips) test strip USE DIRECTED FOR TYPE 2 DIABETES MELLITUS TO CHECK SUGAR DAILY. cloNIDine (CATAPRES) 0.1 mg tablet Take 1 tablet (0.1 mg total) by mouth at bedtime as needed. at bedtime cyclobenzaprine (FLEXERIL) 10 mg tablet take 1 tab by mouth 3 times a day as needed for muscle spasm EPINEPHrine (EPIPEN) 0.3 mg/0.3 mL injection INJECT 0.3 MG INTRAMUSCULARLY ONCE [] lidocaine (LIDODERM) 5 % patch Apply 1 patch topically 1 (one) time each day. Remove & discard patch within 12 hours or as directed by . 30 each 0 metoprolol succinate (TOPROL-XL) 25 mg 24 hr tablet Take 1 tablet (25 mg total) by mouth 1 (one) time each day. propranoloL (INDERAL) 20 mg tablet Take 1 tablet (20 mg total) by mouth 1 (one) time each day if needed. Trulicity 1.5 mg/0.5 mL pen injector injection 0.5 mL (1.5 mg total) 1 (one) time per week. Tfebpen71/6/25 Ventolin HFA 90 mcg/actuation inhaler INHALE 2 PUFFS INTO LUNG 4 TIMES DAILY NEEDED FOR WHEEZING [5] ceFAZolin, 2 g, intravenous, Once [6] [7] [8] Social History Tobacco Use Smoking status: Never Smokeless tobacco: Never Substance Use Topics Drug use: Never [9] Allergies Allergen Reactions Lisinopril Anaphylaxis States tongue swelling documented in this encounter Plan of Treatment Upcoming Encounters Date Type Department Care Team (Latest Contact Info) Description 09/24/2025 7:30 AM EST Hospital Encounter [address] [phone] Parish Warren MD [address] [place] [phone] 09/24/2025 7:30 AM EST - 09/24/2025 8:45 AM EST Surgery [address] [phone] Parish Warren MD [address] [place] [phone] EXCISION LIPOMA LEFT AXILLA [34003 (CPT )] 10/13/2025 8:00 AM EST Office Visit General Surgery [facility] [address] [place] [address] Parish Warren MD [address] [place] [address] Scheduled Procedures Name Priority Associated Diagnoses Date/Ti me EXCISION LIPOMA Lipoma of left axilla 09/24/2025 7:30 AM EST documented as of this encounter Goals Goal Patient Goal Type Associated Problems Recent Progress Patient-Stated? Author Autogenerat ed Goal Care Plan Autogenerated Problem No Greer Chau [place] Autogenerat ed Goal Care Plan Autogenerated Problem No Parish Warren MD documented as of this encounter Procedures Procedure Name Priority Date/Time Associated Diagnosis Comments TH AN ENDOTRACHEAL(NO CHARGE) Routine 08/04/2025 8:52 AM EDT documented in this encounter Results * TH AN ENDOTRACHEAL(NO CHARGE) (08/04/2025 8:52 AM EDT) Kb Hess SRNA - 08/04/2025 8:52 AM EDT NICOLE Bueno 08/04/2025 9:00 AM General Information and Staff Patient location during procedure: OR Anesthesiologist: Jamaica Arce MD Other anesthesia staff: NICOLE Bueno Performed by: NICOLE Bueno Authorized by: Jamaica Arce MD Intubation Additional Comments After pt was turned prone, jazzy not filling properly, ETT cuff checked, noted to be requiring more air. Pt oxygen sat 100%, TV diminishing over time. Pt was turned back into the supine position and ETT assessed with gliderscope and ETT cuff noted to be deflated, ETT exchanged using gliderscope at around 0810am. Airway not difficult Reason: elective Final Airway Details Successful airway: ETT Cuffed: yes Successful intubation technique: video laryngoscopy Adjuncts used in placement: intubating stylet Endotracheal tube insertion site: oral Blade: Milad Blade size: #3 ETT size (mm): 8.0 Cormack-Lehane Classification: grade I - full view of glottis Placement verified by: chest auscultation and capnometry Cuff volume (mL): 8 Measured from: lips ETT to lips (cm): 22 Ventilation between attempts: none Final airway type: endotracheal airway Indications and Patient Condition Indications for airway management: anesthesia Sedation level: Yes Preoxygenated: yesSoft Tissue Damage: No Dentition Unchanged: Yes Patient position: sniffing MILS maintained throughout Mask difficulty assessment: 2 - vent by mask + OA or adjuvant +/- NMBA Start Time: 08/04/2025 7:49 AMStop Time: 08/04/2025 7:51 AM Jamaica Arce MD ANESTHESIA ORDERABLES Fin al Result documented in this encounter Visit Diagnoses Not on filedocumented in this encounter Administered Medications Inactive Administered Medications - up to 3 most recent administrations Medication Order MAR Action Action Date Dose Rate Site ceFAZolin (ANCEF) 2 g in sterile water 20 mL IV syringe 2 g, intravenous, Administer over 3 Minutes, Once, On Sun08/04/25 at 0615, For 1 dose, Preprocedure, -IV Push over 3 minutes -Administer within 60 minutes of incision, Indication: Prophylaxis-Surgical New Bag 08/04/2025 8:26 AM EDT 2 g fentaNYL (PF) (SUBLIMAZE) injection intravenous, As needed, Starting on Sun08/04/25 at 0740, Anesthesia Intraprocedure Given 08/04/2025 7:40 AM EDT 100 mcg HYDROmorphone (DILAUDID) injection intravenous, As needed, Starting on Sun08/04/25 at 0830, Anesthesia Intraprocedure Given 08/04/2025 9:46 AM EDT 0.4 mg Given 08/04/2025 8:30 AM EDT 0.4 mg lactated Ringer's infusion 75 mL/hr, intravenous, Continuous, Starting on Sun08/04/25 at 0745, Preprocedure New Bag 08/04/2025 7:35 AM EDT 75 mL/hr lidocaine (PF) (XYLOCAINE-MPF) 2 % injection injection, As needed, Starting on Sun08/04/25 at 0744, Anesthesia Intraprocedure Given 08/04/2025 7:44 AM EDT 100 mg midazolam (VERSED) injection intravenous, As needed, Starting on Sun08/04/25 at 0735, Anesthesia Intraprocedure Given 08/04/2025 7:35 AM EDT 2 mg ondansetron (PF) (ZOFRAN) injection intravenous, As needed, Starting on Sun08/04/25 at 0826, Anesthesia Intraprocedure Given 08/04/2025 8:26 AM EDT 4 mg propofoL (DIPRIVAN) injection intravenous, As needed, Starting on Sun08/04/25 at 0744, Anesthesia Intraprocedure Given 08/04/2025 7:44 AM EDT 180 mg rocuronium (ZEMURON) injection intravenous, As needed, Starting on Sun08/04/25 at 0748, Anesthesia Intraprocedure Given 08/04/2025 7:48 AM EDT 70 mg sugammadex (BRIDION) 100 mg/mL injection intravenous, As needed, Starting on Sun08/04/25 at 0946, Anesthesia Intraprocedure Given 08/04/2025 9:46 AM EDT 200 mg documented in this encounter Additional Health Concerns Active Problems Noted Date Diagnosed Date Autogenerated Problem 08/05/2025 Autogenerated Problem 07/28/2025 documented as of this encounter Care Teams Call Centre Supervisor Relationship Specialty Start Date End Date Clifford Kim MD [address] [place] [address] PCP - General Internal Medicine 07/08/25 documented as of this encounter
--- NOTE | ~2025-08-08 | CT_ITS ---
CLINICAL HISTORY: right flank pain Exam: Unenhanced CT abdomen and pelvis with multiplanar reformats. Comparison: 08/20/2022. Findings: CT abdomen: Lung bases are clear. Liver is free of focal lesions and ductal dilatation. Gallbladder is unremarkable. Spleen reveals a stable granulomatous calcification and is otherwise unremarkable. Pancreas and adrenal glands appear unremarkable. Kidneys appear unremarkable. No urolithiasis or hydroureteronephrosis. No free intraperitoneal fluid or retroperitoneal masses or adenopathy. Abdominal aorta is normal caliber. Bowel loops reveal no abnormal wall thickening or distention. The appendix is unremarkable. No significant diverticular disease. CT pelvis: Prostate gland and seminal vesicles are stable. Urinary bladder is free of gross filling defects. No pelvic masses, fluid or adenopathy. Osseous structures reveal no destructive osseous lesions. Impression: 1. No acute abnormalities or CT explanation for reported history of right flank pain. Specifically, no urolithiasis or hydroureteronephrosis. Unremarkable appendix. This document has been electronically signed by: Dawood Leonardo MD on 08/08/2025 18:20:03
--- NOTE | ~2025-08-08 | XR_ITS ---
CLINICAL HISTORY: low back pain s p surgery Three views of the lumbar spine. COMPARISON: XR lumbar spine dated 01/12/25 at 07:45 EDT FINDINGS: Five lol-ron-xhbfvaw lumbar type vertebral bodies. Normal vertebral body alignment. Vertebral body heights are maintained. No evidence of acute vertebral body injury. Small marginal osteophytes present throughout the visualized lower thoracic and lumbar spine. Vertebral disc space heights are preserved. Facet joint arthrosis in the lower lumbar spine. Status post laminectomy at L4-5 and L5-S1 with resection of the spinous process at L4. Visualized portions of the bones of the pelvis appear intact. IMPRESSION: 1. No radiographic evidence of acute injury to the lumbar spine. 2. Mild to moderate multilevel lumbar spondylosis, similar to prior imaging This document has been electronically signed by: Tyrone Chester MD on 08/08/2025 14:56:52
[2025-08-08 09:48] VITALS: BP 115/70; PULSE 94; RESP 20; TEMP 36.2; O2SAT 98; BMI 31.9
[2025-08-08 10:14] LABS: Appearance Urine Clear; Glucose Urine UA Negative (Negative); PH 8.5 (5.0-9.0); Specific Gravity - Urine 1.010 (1.005-1.025); UMIC TRIGGER UACC YES
[2025-08-08 10:26] LABS: UACC Culture Trigger YES
--- OUTSIDE RECORDS SUMMARY | 2025-08-08 10:36 | XMS_ITS | Clinical Summary ---
Author Organization [facility] Address [address] [place] [address] Care Team Providers Care Payroll Administrative Assistant Name Role Phone Pcp, No Primary Care [...] kg (187 lb 2.7 oz) 02/15/2025 6:07 AM EDT Height 160.1 cm (5' 3.03 ) [...] 50+ (1 of 1 - PCV) 2021 RSV Vaccine 50 years and old er and Patients (1 - Risk 50-74 years 1-dose series) 2021 Zoster (Shingles) Vaccine (1 of 2) 2021 Influenza Vaccine 05/15/2025 09/09/2024, , 11/03/2022, Additional history exists COVID-19 Vaccine Completed 09/09/2024, , 12/28/2021 Insurance [facility] Care Teams Payroll Administrative Assistant Relationship Specialty Start Date End Date Pcp, No PCP - General 02/15/25
--- OUTSIDE RECORDS SUMMARY | 2025-08-08 10:36 | XMS_ITS | Clinical Summary ---
Author Organization [facility] Address [address] [place] [address] Phone Care Team Providers Care Control Room Helper Name Role Phone Clifford Kim MD Primary Care Provider [phone] Allergies Active Allergy Reactions Criticality Noted Date Comments Lisinopril Anaphylaxis High 04/15/2025 States tongue swelling Medications Ventolin HFA 90 mcg/actuation inhaler INHALE 2 PUFFS INTO LUNG 4 TIMES DAILY NEEDED FOR WHEEZING 04/29/20 25 Active aspirin 81 mg EC tablet Take 1 tablet (81 mg total) by mouth 1 (one) time each day. Active atorvastatin (LIPITOR) 40 mg tablet Take 1 tablet (40 mg total) by mouth 1 (one) time each day. 04/14/20 25 Active blood sugar diagnostic (FreeStyle Lite Strips) test strip USE DIRECTED FOR TYPE 2 DIABETES MELLITUS TO CHECK SUGAR DAILY. 04/29/20 25 Active cloNIDine (CATAPRES) 0.1 mg tablet Take 1 tablet (0.1 mg total) by mouth at bedtime as needed. at bedtime 05/24/20 25 Active cyclobenzaprin e (FLEXERIL) 10 mg tablet take 1 tab by mouth 3 times a day as needed for muscle spasm 01/13/20 25 Active Trulicity 1.5 mg/0.5 mL pen injector injection 0.5 mL (1.5 mg total) 1 (one) time per week. Stopped 07/20/25 Active EPINEPHrine (EPIPEN) 0.3 mg/0.3 mL injection INJECT 0.3 MG INTRAMUSCULARLY ONCE 01/30/20 25 Active metoprolol succinate (TOPROL-XL) 25 mg 24 hr tablet Take 1 tablet (25 mg total) by mouth 1 (one) time each day. 05/20/20 Active propranoloL (INDERAL) 20 mg tablet Take 1 tablet (20 mg total) by mouth 1 (one) time each day if needed. Active naloxone (NARCAN) 4 mg/0.1 mL nasal spray Administer 1 each (4 mg total) into affected nostril(s) if needed for opioid reversal. Give 4 mg (1 spray) into one nostril. May repeat every 2-3 minutes if needed, alternating nostrils, until medical assistance becomes available. 2 each 07/22/20 25 026 Active lidocaine (LIDODERM) 5 % patch Apply 1 patch topically 1 (one) time each day. Remove & discard patch within 12 hours or as directed by . 30 each 07/25/20 25 Active cyclobenzaprin e (FLEXERIL) 10 mg tablet Take 1 tablet (10 mg total) by mouth 3 (three) times a day if needed for muscle spasms for up to 10 days. 15 tablet 07/25/20 25 Active ciprofloxacin (CIPRO) 500 mg tablet Take 1 tablet (500 mg total) by mouth 2 (two) times a day for 7 days. 14 tablet 08/02/20 25 025 Active oxyCODONE (ROXICODONE) 5 mg immediate release tablet Take 1 tablet (5 mg total) by mouth every 6 (six) hours if needed for severe pain for up to 5 doses. Max Daily Amount: 20 mg 5 each 07/01/20 25 Discontinu ed(Prescri rose Discontinu ed) lidocaine (LIDODERM) 5 % patch Apply 1 patch topically 1 (one) time each day. Remove & discard patch within 12 hours or as directed by . 30 each 07/01/20 25 tiZANidine (ZANAFLEX) 2 mg tablet Take 2 tablets (4 mg total) by mouth every 8 (eight) hours. as directed for 30 days 025 Discontinu ed(Formula ry change) oxyCODONE (ROXICODONE) 15 mg immediate release tablet Take 1 tablet (15 mg total) by mouth every 6 (six) hours if needed for severe pain for up to 3 days. Max Daily Amount: 60 mg 12 tablet 07/22/20 25 025 ketorolac (TORADOL) 10 mg tablet Take 1 tablet (10 mg total) by mouth every 6 (six) hours if needed for moderate pain for up to 5 days. 20 tablet 07/25/20 25 025 Discontinu ed(Stop Taking at Discharge) tamsulosin (FLOMAX) 0.4 mg 24 hr capsule Take 1 capsule (0.4 mg total) by mouth 1 (one) time each day for 7 days. Capsules should be taken 30 minutes following the same meal each day. 7 capsule 07/25/20 025 Active Problems Problem Noted Date Diagnosed Date Lipoma of left axilla 07/28/2025 Radiculopathy, lumbar region 07/13/2025 Lumbar disc herniation with radiculopathy 2024 Assessment & Plan (07/10/2025 1:14 PM EDT): Femoralis describes right greater than left leg pain and burning with radiation also to his scrotum. He has had 2 episodes of urinary incontinence in the last 2 weeks. He has a history of lumbar discectomy or decompression about 10 years ago at [facility] but says that it did not help him. He is on multiple medications including ketorolac, oxycodone, and tizanidine all without significant relief. On physical examination, he had some giveway weakness but with encouragement was able to show good strength. There was no hyperreflexia and no myelopathic findings. MRI of the lumbar spine shows a right sided disc herniation at L5-S1 causing significant foraminal stenosis and impinging the descending right S1 nerve root in the lateral recess. Dr. Guevara reviewed the films and did agree that a right sided L5-S1 minimally invasive discectomy was reasonable. I explained to the patient that I would really only hope to help pain in the lateral and posterior leg. I explained that thing on the MRI explained urinary incontinence. I would not expect that would improve after surgery. I also explained he should not expect any improvement in anterior thigh pain. He said that a chance that any relief was worth the risk of surgery. Risks, benefits, and alternatives were discussed with the patient in detail. He asked appropriate questions, appeared to understand, and wishes to proceed with surgery. He asked me for a prescription for pads for his external spinal stimulator and I did supply that as well. I gave him a bottle of Hibiclens and directions in Albanian on how to use it. Rosi Perdomo will reach out to him to schedule surgery. Encounters Date Type Department Care Team Description 08/04/2025 7:36 AM EDT Anesthesia Event [facility] Main OR [address] [place] [phone] Jamaica Arce MD Sandjo, Hyancinthe, SRNA 08/04/2025 7:30 AM EDT - 08/04/2025 9:45 AM EDT Surgery [facility] OR [address] [place] [phone] Xin Guevara MD Right L5-S1 minimally invasive discectomy [01680 (CPT )] 08/04/2025 5:35 AM EDT - 08/05/2025 10:57 AM EDT Hospital Encounter [facility] Medical Surgical Unit [address] [place] [phone] Xin Guevara MD Discharge Disposition: Home or Self Care 08/02/2025 11:55 AM EDT - 08/02/2025 4:15 PM EDT Emergency [facility] Emergency [address] [place] [phone] Bilateral sciatica (Primary Dx); Acute cystitis with hematuria Discharge Disposition: Home or Self Care 07/28/2025 9:30 AM EDT Consult General Surgery - [place] [address] [phone] Parish Warren MD Lipoma of left axilla (Primary Dx) 07/25/2025 1:53 AM EDT - 07/25/2025 2:06 AM EDT Emergency [facility] Emergency [address] [place] [phone] Chronic midline low back pain without sciatica (Primary Dx); Encounter for Bynum catheter removal Discharge Disposition: Home or Self Care 07/21/2025 5:23 PM EDT - 07/22/2025 6:11 AM EDT Emergency [facility] Emergency [address] [place] [phone] Adam Mukherjee MD Kokkinos, Erika, MD Urinary retention (Primary Dx); Decreased rectal sphincter tone; Hypokalemia; Hypomagnesemia; History of nephrolithiasis Discharge Disposition: Home or Self Care 07/13/2025 4:45 AM EDT - 07/13/2025 6:44 AM EDT Emergency [facility] Emergency [address] [place] [phone] Jevon Hernandez MD Lumbar radiculopathy (Primary Dx) Discharge Disposition: Home or Self Care 07/10/2025 11:30 AM EDT Consult Neurosurgery [facility] 175 [facility] [address] [place] [phone] Ravi Hernandez PA Lumbar disc herniation with radiculopathy (Primary Dx) 07/01/2025 3:56 PM EDT - 07/01/2025 9:32 PM EDT Emergency [facility] Emergency [address] [place] [phone] Daniel Ahmadi MD Kidney stone (Primary Dx); Lipoma, unspecified site; Low back pain, unspecified back pain laterality, unspecified chronicity, unspecified whether sciatica present Discharge Disposition: Home or Self Care from Last 3 Months Surgical History Surgery Date Site/Laterality Comments KNEE SURGERY 10/15/1999 - 10/14/2000 Bilateral INFECTION BACK SURGERY Pinch nerve sx [facility] NECK SURGERY ?2022 [facility] OTHER SURGICAL HISTORY I&D ABCESS SIMPLE OR SINGLE Medical History Medical History Date Comments HTN (hypertension) DM (diabetes mellitus) (CMS/HCC V24, CMS/HCC V28 ) Arrhythmia High cholesterol Arthritis Anxiety Asthma Joint pain Sleep apnea Social History Tobacco Use Types Packs/Day Years Used Date Smoking Tobacco: Never Smokeless Tobacco: Never Tobacco Cessation:Counseling Given: Not Answered Housing Instability Answer Date Recorde d Are [...] care for your loved ones. For example, child development assistant or elderly care for an older adult? [...] Mass Index 29.95 08/04/2025 6:08 AM EDT Plan of Treatment Upcoming Encounters Date Type Department Care Team (Latest Contact Info) Description 09/24/2025 7:30 AM EST Hospital Encounter [address] [phone] Parish Warren MD [address] [place] [phone] 09/24/2025 7:30 AM EST - 09/24/2025 8:45 AM EST Surgery [address] [phone] Parish Warren MD [address] [place] [phone] EXCISION LIPOMA LEFT AXILLA [95225 (CPT )] 10/13/2025 8:00 AM EST Office Visit General Surgery [address] [phone] Parish Warren MD [address] [place] [phone] Scheduled Procedures Name Priority Associated Diagnoses Date/Ti me EXCISION LIPOMA Lipoma of left axilla 09/24/2025 7:30 AM EST Health Maintenance Due Date Last Done Comments Colorectal Cancer Screening: Colonoscopy 1971 Diabetes: Annual Foot Exam 1981 Diabetes: Annual Retina Eye Exam 1981 Hepatitis A Vaccines (1 of 2 - Risk 2-dose series) 1990 Hepatitis B Vaccines (1 of 3 - 19+ 3-dose series) 1990 RSV Immunization Adult Patients (1 - Risk 50-74 years 1-dose series) 2021 Cholesterol Screening (Lipid Panel) 09/17/2022 HIV Screening 09/17/2022 Hepatitis C Screening 09/17/2022 Zoster Vaccines (2 of 3) 01/25/2024 11/30/2023 Depression Screening 10/15/2024 Diabetes: Annual Urine Albumin-Creatinine Ratio (uACR) 04/16/2025 Diabetes: Blood Sugar Control Test (HGBA1C) 04/16/2025 Influenza Vaccine (#1) 2025 , 08/10/2023, 11/03/2022, Additional history exists Diabetes: Annual GFR (Glomerular Filtration Rate) 08/02/2026 08/02/2025, 07/21/2025, 07/13/2025, Additional history exists Hypertension/CHF/CAD Annual BMP Blood Test 08/02/2026 08/02/2025, 07/21/2025, 07/13/2025, Additional history exists Social Influencers of Health Screening 08/04/2026 08/04/2025 DTaP,Tdap,and Td Vaccines (4 - Td or [...] on patient's age to complete this topic Goals Goal Patient Goal Type Associated Problems Recent Progress Patient-Stated? Author Autogenerat ed Goal Care Plan Autogenerated Problem No Greer Chau [place] Autogenerat ed Goal Care Plan Autogenerated Problem No Parish Warren MD Medical Devices Implanted Type Area Print Binding Worker Device Identifier Shelf Expiration Date Model / Serial / Lot Powder Surg[employer] Absorb Gel - Sna - [id number] Implanted:Qty: 1 on 08/04/2025 by Xin Guevara MD at [facility] [employer] Right: Back [facility] [employer] [id number] 03/16/20271977 / NA / [id number] Procedures Procedure Name Priority Date/Time Associated Diagnosis Comments POCT GLUCOSE BLOOD Routine 08/05/2025 10 :43 AM EDT POCT GLUCOSE BLOOD Routine 08/05/2025 7: 59 AM EDT POCT GLUCOSE BLOOD Routine 08/04/2025 8: 33 PM EDT POCT GLUCOSE BLOOD Routine 08/04/2025 4: 16 PM EDT POCT GLUCOSE BLOOD Routine 08/04/2025 1: 36 PM EDT XR SPINE 1 VIEW Routine 08/04/2025 9:35 AM EDT TH AN ENDOTRACHEAL(NO CHARGE) Routine 08/04/2025 8:52 AM EDT RI DIOR W DECMPR INCL PART FACETECTOMY/EXC HIVD REEXPLORE SGL INTERSPCE LUMB 08/04/2025 7:35 AM EDT Radiculopathy, lumbar region Case Notes C-Arm, Microscope, chest rolls Special Needs Chest rolls PROCEDURAL ECG Routine 08/04/2025 6:18 AM EDT POCT GLUCOSE BLOOD Routine 08/04/2025 5: 58 AM EDT [facility] URINE CULTURE TUBE STAT 08/02/2025 3:11 PM EDT URINALYSIS WITH REFLEX MICROSCOPIC AND CULTURE STAT 08/02/2025 3:11 PM EDT URINALYSIS WITH REFLEX MICROSCOPIC AND CULTURE STAT 08/02/2025 3:11 PM EDT CULTURE URINE STAT 08/02/2025 3:[address] ABDOMEN PELVIS W CONTRAST STAT 08/02/2025 2:08 PM EDT CBC WITH AUTO DIFFERENTIAL STAT 08/02/2025 12:04 PM EDT LIPASE STAT 08/02/2025 12:04 PM EDT CBC AND DIFFERENTIAL STAT 08/02/2025 12:04 PM EDT COMPREHENSIVE METABOLIC PANEL STAT 08/02/2025 12:04 PM EDT MAGNESIUM STAT 07/22/2025 3:11 AM EDT POTASSIUM STAT 07/22/2025 3:11 AM EDT ECG ANNOTATED 07/22/2025 ECG 12-LEAD STAT 07/21/2025 11:51 PM EDT [facility] URINE CULTURE TUBE STAT 07/21/2025 10:46 PM EDT URINALYSIS WITH REFLEX MICROSCOPIC AND CULTURE STAT 07/21/2025 10:46 PM EDT URINALYSIS WITH REFLEX MICROSCOPIC AND CULTURE STAT 07/21/2025 10:46 PM EDT MAGNESIUM STAT Add-on 07/21/2025 9:56 PM EDT ACTIVATED PARTIAL THROMBOPLASTIN TIME STAT 07/21/2025 9:56 PM EDT PROTHROMBIN TIME WITH INR STAT 07/21/2025 9:56 PM EDT TYPE AND SCREEN STAT 07/21/2025 9:56 PM EDT CBC WITH AUTO DIFFERENTIAL STAT 07/21/2025 9:56 PM EDT C-REACTIVE PROTEIN STAT 07/21/2025 9: 56 PM EDT COMPREHENSIVE METABOLIC PANEL STAT 07/21/2025 9:56 PM EDT CBC AND DIFFERENTIAL STAT 07/21/2025 9:56 PM EDT MR LUMBAR SPINE WO CONTRAST STAT 07/21/2025 8:29 PM EDT [facility] URINE CULTURE TUBE STAT 07/13/2025 5:18 AM EDT URINALYSIS WITH REFLEX MICROSCOPIC AND CULTURE STAT 07/13/2025 5:18 AM EDT URINALYSIS WITH REFLEX MICROSCOPIC AND CULTURE STAT 07/13/2025 5:18 AM EDT CBC WITH AUTO DIFFERENTIAL STAT 07/13/2025 5:06 AM EDT CBC AND DIFFERENTIAL STAT 07/13/2025 5:06 AM EDT COMPREHENSIVE METABOLIC PANEL STAT 07/13/2025 5:06 AM EDT SEDIMENTATION RATE STAT 07/13/2025 5: 06 AM EDT C-REACTIVE PROTEIN STAT 07/13/2025 5: 06 AM EDT MR LUMBAR SPINE WO CONTRAST STAT 07/01/2025 7:39 PM EDT US ABDOMEN LIMITED STAT 07/01/2025 7: [address] ABDOMEN PELVIS WO CONTRAST STAT 07/01/2025 6:11 PM EDT CBC WITH AUTO DIFFERENTIAL STAT 07/01/2025 4:51 PM EDT C-REACTIVE PROTEIN STAT 07/01/2025 4: 51 PM EDT SEDIMENTATION RATE STAT 07/01/2025 4: 51 PM EDT COMPREHENSIVE METABOLIC PANEL STAT 07/01/2025 4:51 PM EDT CBC AND DIFFERENTIAL STAT 07/01/2025 4:51 PM EDT [facility] URINE CULTURE TUBE STAT 07/01/2025 4:31 PM EDT URINALYSIS WITH REFLEX MICROSCOPIC AND CULTURE STAT 07/01/2025 4:31 PM EDT URINALYSIS WITH REFLEX MICROSCOPIC AND CULTURE STAT 07/01/2025 4:31 PM EDT CULTURE URINE STAT 07/01/2025 4:31 PM EDT from Last 3 Months Results * (ABNORMAL) POCT Glucose, blood (08/05/2025 10:43 AM EDT) Only the most recent of6 resultswithin the time period is included. Glucose POCT 135(H) 70 - 100 mg/dL 08/05/2025 10:44 AM EDT [facility]) [facility] Blood Capillary blood specimen / Unknown 08/05/2025 10:43 AM EDT 08/05/2025 10:45 AM EDT us Xin Guevara MD LAB POINT OF CARE TE ST DOCKED DEVICE UNSOLICITED RESULTS Final Result [facility] [address] [place] [address], * XR Spine 1 View (08/04/2025 9:35 AM EDT) Anatomical Region Laterality Modality Spine Radio Fluoroscop y 08/04/2025 10:0 0 AM EDT Impressions 08/04/2025 10:02 AM EDT Metallic probes project posterior to the L5-S1 interspace. Code 91531 The dose-area product for this procedure was 170.40 uGy*m2. PQRI CPT II G9500 -------- FINAL REPORT -------- Dictated By: Yuniel Cohn Dictated Date: 08/04/2025 10:00 ET Assigned Physician: Yuniel Cohn Reviewed and Electronically Signed By: Yuniel Cohn Signed Date: 08/04/2025 10:02 ET Workstation ID: [id number] Transcribed By: Self Edit Transcribed Date: 08/04/2025 [...] a metallic probe projecting posterior to the L5-R5kvjcujikpv. The alignment of the included bony structures is anatomic. Nofracture is seen. IMPRESSION: Metallic probes project posterior to the L5-S1 interspace. Code 26412 The dose-area product for this procedure was 170.40 uGy*m2. PQRI CPT II G9500 -------- FINAL REPORT -------- Dictated By: Yuniel Cohn Dictated Date: 08/04/2025 10:00 ET Assigned Physician: Yuniel Cohn Reviewed and Electronically Signed By: Yuniel Cohn Signed Date: 08/04/2025 10:02 ET Workstation ID: [id number] Transcribed By: Self Edit Transcribed Date: 08/04/2025 10:00 ET us Xin Guevara MD IMG XR PROCEDURES Final Result * TH AN ENDOTRACHEAL(NO CHARGE) (08/04/2025 8:52 [...] 08/04/2025 7:49 AMStop Time: 08/04/2025 7:51 AM us [place] Arce MD ANESTHESIA ORDERABLES Fin al Result * ECG 12 lead - Procedural (No Charge) (08/04/2025 6:18 AM EDT) Pathologist [facility] Ventricular Rate ECG 78 BPM GEMUSE Atrial Rate 78 BPM GEMUSE P-R Interval 130 ms GEMUSE QRS Duration 80 ms GEMUSE Q-T Interval 396 ms GEMUSE QTc 451 ms GEMUSE P Wave [place] 32 degrees GEMUSE R [place] 9 degrees GEMUSE T [place] 12 degrees GEMUSE ECG Interpretation Normal sinus rhythm Normal ECG When compared with ECG of 21-JUL-2025 23:51, No significant change was found Confirmed by MD Harjeet, [place] ([id number]) on 08/04/2025 9:16:48 PM GEMUSE 08/04/2025 6:18 AM EDT 08/04/2025 9:16 PM EDT us Xin Guevara MD ECG ORDERABLES Final Result GEMUSE * (ABNORMAL) Urinalysis with reflex microscopic and culture (08/02/2025 3:11 PM EDT) Only the most recent of4 resultswithin the time period is included. [facility] Specific [place] Urine >1.045(H) 1.003 - 1.030 LAB URINALYSIS - AUTOMATED METHOD 08/02/2025 3:53 PM EDT [facility] pH, Urine 7.0 5.0 - 8.0 pH LAB URINALYSIS - AUTOMATED METHOD 08/02/2025 3:53 PM EDT [facility] Leukocytes, Urine Moderate(A) Negative LAB URINALYSIS - AUTOMATED METHOD 08/02/2025 3:53 PM EDT [facility] Nitrite, Urine Negative Negative LAB URINALYSIS - AUTOMATED METHOD 08/02/2025 3:53 PM EDT [facility] Protein, Urine Trace <=Trace mg/dL LAB URINALYSIS - AUTOMATED METHOD 08/02/2025 3:53 PM [facility] Glucose, Urine Negative Negative mg/dL LAB URINALYSIS - AUTOMATED METHOD 08/02/2025 3:53 PM [facility] Ketones, Urine Negative Negative mg/dL LAB URINALYSIS - AUTOMATED METHOD 08/02/2025 3:53 PM [facility] Urobilinogen , Urine 0.2 0.2 - 1.0 mg/dL LAB URINALYSIS - AUTOMATED METHOD 08/02/2025 3:53 PM [facility] Bilirubin, Urine Negative Negative LAB URINALYSIS - AUTOMATED METHOD 08/02/2025 3:53 PM [facility] Blood, Urine Small(A) Negative LAB URINALYSIS - AUTOMATED METHOD 08/02/2025 3:53 PM [facility] RBC, Urine 10.5(H) 0 - 4 /HPF LAB URINALYSIS - AUTOMATED METHOD 08/02/2025 3:53 PM [facility] WBC, Urine 77.1(H) 0 - 4 /HPF LAB URINALYSIS - AUTOMATED METHOD 08/02/2025 3:53 PM [facility] Squamous Epithelial, Urine 50 0 - 60 /LPF LAB URINALYSIS - AUTOMATED METHOD 08/02/2025 3:53 PM [facility] Bacteria, Urine Few(A) Negative /HPF LAB URINALYSIS - AUTOMATED METHOD 08/02/2025 3:53 PM [facility] Hyaline Casts, Urine 4.0(H) 0 - 3 /LPF LAB URINALYSIS - AUTOMATED METHOD 08/02/2025 3:53 PM [facility] Urine Urine specimen obtained by clean catch procedure / Unknown Non-blood Collection / Unknown 08/02/2025 3:11 PM EDT 08/02/2025 3:23 PM EDT Dax [facility] LAB URINE ORDERABLES Final Result Performing Organization Address [facility]/ZIP Co de Phone Number [facility] [address] [place] [address], [place] [phone] * [facility] urine culture tube (08/02/2025 3:11 PM EDT) Only the most recent of4 resultswithin the time period is included. Extra Tube Hold for add-ons. 08/02/2025 5:01 PM EDT [facility] Comment:Auto resulted. Urine Urine specimen obtained by clean catch procedure / Unknown Non-blood Collection / Unknown 08/02/2025 3:11 PM EDT 08/02/2025 3:23 PM EDT [facility] LAB URINE ORDERABLES Final Result Performing Organization Address [facility] de Phone Number [facility] [address] [place] [address], [place] [phone] * Culture urine (08/02/2025 3:11 PM EDT) Only the most recent of2 resultswithin the time period is included. Pathologist [facility] Culture, Urine >100,000 CFU/mL Mixed bacterial morphotypes present suggestive of possible contamination during collection. Suggest appropriate recollection if clinically indicated. 08/03/2025 10:50 AM EDT [facility] Urine Urine specimen obtained by clean catch procedure / Unknown Non-blood Collection / Unknown 08/02/2025 3:11 PM EDT 08/02/2025 3:53 PM EDT [facility] LAB MICROBIOLOGY - GENERAL ORDERABLES Final Result Performing Organization Address [facility] Co de Phone Number [facility] [address] [place] [address], [place] [phone] * CT Abdomen Pelvis w Contrast (08/02/2025 2:08 PM EDT) Anatomical Region Laterality Modality Body Computed Tomogra phy 08/02/2025 2:29 PM EDT Impressions 08/02/2025 2:34 PM EDT No acute findings in the abdomen and pelvis. -------- FINAL REPORT -------- Dictated By: Tommie Lyman Dictated Date: 08/02/2025 14:29 ET Assigned Physician: Tommie Lyman Reviewed and Electronically Signed By: Tommie Lyman Signed Date: 08/02/2025 14:34 ET Workstation ID: [id number] Transcribed By: Self Edit Transcribed Date: 08/02/2025 14:29 ET Narrative 08/02/2025 2:34 PM EDT PROCEDURE: Contrast enhanced CT of the abdomen [...] Mild sigmoid diverticulosis. Normal retrocecal appendix. Abdominal wall: Postsurgical scarring in the midline lumbar soft tissues. Postsurgical scarring in the right paramedian anterior upper abdominal wall. No mass or hernia. Pelvic nodes: No adenopathy. Pelvic organs: Normal. Bones: Degenerative changes of the spine. Posterior decompression at L4-5. Procedure Note Tommie Lyman MD - 08/02/2025 PROCEDURE: Contrast enhanced CT of the abdomen and pelvis. HISTORY: Abdominal pain, acute, no prior medical history. COMPARISON: 05/24/2021. TECHNIQUE: Contrast-enhanced CT of the abdomen and pelvis with coronal andsagittal reformats. IV contrast dose: 90 mL [id number]. Dose length product: 1065 mGy-cm. FINDINGS: Stable irregular hyperattenuating material, possiblycalcifications, in the anterior left diaphragmatic almita. Lung bases: Mild dependent atelectasis. Cardiac: Normal heart size. No coronary artery calcification. Liver: Mild steatosis. No focal lesion. Portal veins are patent. Biliary: Normal gallbladder and biliary tree. Pancreas: Normal. Spleen: Small calcified granulomas. Adrenal glands: Normal. Kidneys: There are a few small low-attenuation cortical lesions, probablycysts but too small for definitive characterization. Normal appearance ofthe ureters. Retroperitoneum: No mass or adenopathy. Abdominal vasculature: Normal. Bowel/mesentery: No obstruction or adenopathy. No mass or ascites. Mildsigmoid diverticulosis. Normal retrocecal appendix. Abdominal wall: Postsurgical scarring in the midline lumbar soft tissues.Postsurgical scarring in the right paramedian anterior upper abdominalwall. No mass or hernia. Pelvic nodes: No adenopathy. Pelvic organs: Normal. Bones: Degenerative changes of the spine. Posterior decompression atL4-5. IMPRESSION: No acute findings in the abdomen and pelvis. -------- FINAL REPORT -------- Dictated By: Tommie Lyman Dictated Date: 08/02/2025 14:29 ET Assigned Physician: Tommie Lyman Reviewed and Electronically Signed By: Tommie Lyman Signed Date: 08/02/2025 14:34 ET Workstation ID: [id number] Transcribed By: Self Edit Transcribed Date: 08/02/2025 14:29 ET us Dax RUDD IM CT PROCEDURES Final Res ult * (ABNORMAL) CBC auto differential (08/02/2025 12:04 PM EDT) Only the most recent of4 resultswithin the time period is included. WBC 10.1 4.8 - 10.8 [facility] RBC 5.60(H) 4.50 - 5.50 M/mcL LAB HEMETOLOGY METHOD [facility]/02[facility]2025 [facility] Hemoglobin 15.5 13.5 - 17.5 g/dL LAB HEMETOLOGY METHOD 08/02/2025 1:01 PM [facility] Hematocrit 49.0 42.0 - 54.0 % LAB HEMETOLOGY METHOD [facility] MCV 88.1 79.0 - 98.0 FL LAB HEMETOLOGY METHOD 08/02/2025 1:01 PM [facility] MCH 27.9 27.0 - 32.0 pcg LAB HEMETOLOGY METHOD 08/02/2025 1:01 PM [facility] MCHC 31.6(L) 32.0 - 37.0 g/dL LAB HEMETOLOGY METHOD 08/02/2025 1:01 PM [facility] RDW 14.7 11.0 - 15.0 % LAB HEMETOLOGY METHOD 08/02/2025 1:01 PM [facility] Platelets 336 130 - 400 K/mcL LAB HEMETOLOGY METHOD 08/02/2025 1:01 PM [facility] MPV 10.4 7.0 - 11.0 FL LAB HEMETOLOGY METHOD 08/02/2025 1:01 PM [facility] NRBC 0.0 <1.0 % LAB HEMETOLOGY METHOD 08/02/2025 1:01 PM [facility] NRBC Absolute 0.00 <0.10 K/mcL LAB HEMETOLOGY METHOD 08/02/2025 1:01 PM [facility] Neutrophils Relative 61.5 % LAB HEMETOLOGY METHOD 08/02/2025 1:01 PM [facility] Lymphocytes Relative 29.2 % LAB HEMETOLOGY METHOD 08/02/2025 1:01 PM [facility] Monocytes Relative 5.2 % LAB HEMETOLOGY METHOD 08/02/2025 1:01 PM [facility] Eosinophils Relative 2.4 % LAB HEMETOLOGY METHOD 08/02/2025 1:01 PM [facility] Basophils Relative 0.6 % LAB HEMETOLOGY METHOD 08/02/2025 1:01 PM [facility] Immature Granulocytes Relative 1.1 % LAB HEMETOLOGY METHOD 08/02/2025 1:01 PM [facility] Neutrophils Absolute 6.23 1.50 - 7.00 K/mcL LAB HEMETOLOGY METHOD 08/02/2025 1:01 PM [facility] Lymphocytes Absolute 2.95 1.00 - 5.00 K/mcL LAB HEMETOLOGY METHOD 08/02/2025 1:01 PM [facility] Monocytes Absolute 0.53 0.20 - 1.00 K/mcL LAB HEMETOLOGY METHOD 08/02/2025 1:01 PM [facility] Eosinophils Absolute 0.24 0.00 - 0.50 K/mcL LAB HEMETOLOGY METHOD 08/02/2025 1:01 PM [facility] Basophils Absolute 0.06 0.00 - 0.20 K/mcL LAB HEMETOLOGY METHOD 08/02/2025 1:01 PM [facility] Immature Granulocytes Absolute 0.11(H) 0.00 - 0.03 K/mcL LAB HEMETOLOGY METHOD 08/02/2025 1:01 PM [facility] Blood Venous blood specimen / Unknown Venipuncture / Unknown 08/02/2025 12:04 PM EDT 08/02/2025 12:56 PM EDT Dax RUDD LAB BLOOD ORDERABLES Final Result Performing Organization Address City/[facility]/ZIP Co de Phone Number [facility] [address] [place] [address], [place] [phone] * Lipase (08/02/2025 12:04 PM EDT) Lipase 69 13 - 75 unit/L LAB CHEMISTRY METHOD 08/02/2025 1:47 PM EDT [facility] Blood Venous blood specimen / Unknown Venipuncture / Unknown 08/02/2025 12:04 PM EDT 08/02/2025 12:56 PM EDT Dax RUDD LAB BLOOD ORDERABLES Final Result Performing Organization Address [facility]/ZIP Co de Phone Number [facility] [address] [place] [address], [place] [phone] * Comprehensive Metabolic Panel (CMP) (08/02/2025 12:04 PM EDT) Only the most recent of4 resultswithin the time period is included. Pathologist [facility] Sodium 138 133 - 145 mmol/L LAB CHEMISTRY METHOD 08/02/2025 1:52 PM EDT [facility] Potassium 5.4 3.5 - 5.5 mmol/L LAB CHEMISTRY METHOD 08/02/2025 1:52 PM EDT [facility] Chloride 105 96 - 110 mmol/L LAB CHEMISTRY METHOD 08/02/2025 1:52 PM EDT [facility] CO2 28 21 - 32 mmol/L LAB CHEMISTRY METHOD 08/02/2025 1:52 PM EDT [facility] Anion Gap 5 3 - 11 LAB CHEMISTRY METHOD 08/02/2025 1:52 PM EDT [facility] Glucose 89 70 - 100 mg/dL LAB CHEMISTRY METHOD 08/02/2025 1:52 PM EDT [facility] BUN 15 5 - 25 mg/dL LAB CHEMISTRY METHOD 08/02/2025 1:52 PM [facility] Creatinine 0.82 0.70 - 1.30 mg/dL LAB CHEMISTRY METHOD 08/02/2025 1:52 PM [facility] eGFR 105 >=60 mL/min/1. 73m2 LAB CHEMISTRY METHOD 08/02/2025 1:52 PM [facility] Comment:Calculation based on the Chronic Kidney Disease Epidemiology Collaboration (CKD-EPI) equation refit without adjustment for race. BUN/Creatinine Ratio 18.3 LAB CHEMISTRY METHOD 08/02/2025 1:52 PM [facility] Calcium 9.2 8.5 - 10.5 mg/dL LAB CHEMISTRY METHOD 08/02/2025 1:52 PM [facility] AST (SGOT) 32 10 - 42 unit/L LAB CHEMISTRY METHOD 08/02/2025 1:52 PM [facility] ALT (SGPT) 27 10 - 60 unit/L LAB CHEMISTRY METHOD 08/02/2025 1:52 PM [facility] Alkaline Phosphatase 117 42 - 121 unit/L LAB CHEMISTRY METHOD 08/02/2025 1:52 PM [facility] Total Protein 7.8 6.0 - 8.0 g/dL LAB CHEMISTRY METHOD 08/02/2025 1:52 PM [facility] Albumin 3.8 3.2 - 5.0 g/dL LAB CHEMISTRY METHOD 08/02/2025 1:52 PM [facility] Total Bilirubin 0.4 0.0 - 1.4 mg/dL LAB CHEMISTRY METHOD 08/02/2025 1:52 PM [facility] Blood Venous blood specimen / Unknown Venipuncture / Unknown 08/02/2025 12:04 PM EDT 08/02/2025 12:56 PM EDT Dax [facility] LAB BLOOD ORDERABLES Final Result Performing Organization Address [facility]/ZIP Co de Phone Number [facility] [address] [place] [address], [place] [phone] * Potassium (07/22/2025 3:11 AM EDT) Potassium 4.5 3.5 - 5.5 mmol/L LAB CHEMISTRY METHOD 07/22/2025 4:03 AM EDT [facility] Comment:Results verified by repeat testing Blood Venous blood specimen / Unknown Venipuncture / Unknown 07/22/2025 3:11 AM EDT 07/22/2025 3:34 AM EDT Gilma Martinez MD LAB BLOOD ORDERABLES Final Res ult Performing Organization Address [facility] de Phone Number [facility] [address] [place] [address], * (ABNORMAL) Magnesium (07/22/2025 3:11 AM EDT) Only the most recent of2 resultswithin the time period is included. Magnesium 2.7(H) 1.9 - 2.6 mg/dL LAB CHEMISTRY METHOD 07/22/2025 4:03 AM EDT [facility] Comment:Results verified by repeat testing Blood Venous blood specimen / Unknown Venipuncture / Unknown 07/22/2025 3:11 AM EDT 07/22/2025 3:34 AM EDT Gilma Martinez MD LAB BLOOD ORDERABLES Final Res ult Performing Organization Address [facility]/ZIP Co de Phone Number [facility] [address] [place] [address], [place] [phone] * ECG-Annotated (07/22/2025) Provider Onbase ECG ORDERABLES Final Result * ECG 12 lead (07/21/2025 11:51 PM EDT) Ventricular Rate ECG 80 BPM GEMUSE Atrial Rate 80 BPM GEMUSE P-R Interval 92 ms GEMUSE QRS Duration 80 ms GEMUSE Q-T Interval 364 ms GEMUSE QTc 419 ms GEMUSE P Wave [place] 51 degrees GEMUSE R [place] 10 degrees GEMUSE T [place] 12 degrees GEMUSE ECG Interpretation Sinus rhythm with short RI Otherwise normal ECG When compared with ECG of 15-APR-2025 20:32, No significant change was found Confirmed by Pilar FORD JAMES ([id number]) on 07/22/2025 12:31:38 PM GEMUSE 07/21/2025 11:5 1 PM EDT 07/22/2025 12:31 PM EDT Gilma Martinez MD ECG ORDERABLES Final Result Performing Organization Address [facility] de Phone Number GEMUSE * APTT (07/21/2025 9:56 PM EDT) Pathologist [facility] aPTT 35.2 24.1 - 39.3 sec LAB COAGULATION METHOD 07/21/2025 10:45 PM EDT [facility] Blood Venous blood specimen / Unknown Venipuncture / Unknown 07/21/2025 9:56 PM EDT 07/21/2025 10:15 PM EDT Gilma Martinez MD LAB BLOOD ORDERABLES Final Res ult Performing Organization Address City/[facility]/ZIP Co de Phone Number [facility] [address] [place] [address], [place] [phone] * Protime-INR (07/21/2025 9:56 PM EDT) Pathologist [facility] Protime 11.8 10.6 - 13.9 sec LAB COAGULATION METHOD 07/21/2025 10:45 PM EDT [facility] INR 0.9 LAB COAGULATION METHOD 07/21/2025 10:45 PM EDT [facility] Blood Venous blood specimen / Unknown Venipuncture / Unknown 07/21/2025 9:56 PM EDT 07/21/2025 10:15 PM EDT us Gilma Martinez MD LAB BLOOD ORDERABLES Final Res ult [facility] [address] [place] [address], [place] [phone] * Type and Screen (07/21/2025 9:56 PM EDT) ABO Group O 07/21/2025 11:09 PM EDT [facility] Rh Type Positive 07/21/2025 11:09 PM EDT [facility] Antibody Screen Negative 07/21/2025 11:09 PM EDT [facility] Blood Venous blood specimen / Unknown Venipuncture / Unknown 07/21/2025 9:56 PM EDT 07/21/2025 10:15 PM EDT us Gilma Martinez MD LAB BLOOD BANK TEST ORDERABLES Final Result Performing Organization Address City/[facility]/ZIP Co de Phone Number [facility] [address] [place] [address], [place] [phone] * C-reactive protein (07/21/2025 9:56 PM EDT) Only the most recent of3 resultswithin the time period is included. C-Reactive Protein 0.32 <=0.50 mg/dL LAB CHEMISTRY METHOD 07/21/2025 10:53 PM EDT [facility] Blood Venous blood specimen / Unknown Venipuncture / Unknown 07/21/2025 9:56 PM EDT 07/21/2025 10:15 PM EDT us Gilma Martinez MD LAB BLOOD ORDERABLES Final Res ult [facility] ([facility]) [facility] [address] [place] [address], * MR Lumbar Spine wo Contrast (07/21/2025 8:29 PM EDT) Only the most recent of2 resultswithin the time period is included. Anatomical Region Laterality Modality L-spine, Spine Magnetic Resonan ce 07/21/2025 10:1 8 PM EDT Impressions 07/21/2025 10:18 PM EDT 1. 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 2. Small central disc bulges at L3-L4, L4-L5 and L5-S1 along with facet arthropathy causing spinal canal stenosis and mild bilateral neural foraminal stenosis. 3. Hemangioma in L4 vertebrae measuring 1.5 cm. This document has been electronically signed by: Abi Gaspar MD on 07/21/2025 22:18:12 Narrative 07/21/2025 10:18 PM EDT INDICATION: Groin and bilateral leg radiculopathy, history [...] Hemangioma in L4 vertebrae measuring 1.5 cm. Procedure Note Abi Gaspar MD - 07/21/2025 INDICATION: Groin and bilateral leg radiculopathy, history [...] Hemangioma in L4 vertebrae measuring 1.5 cm. IMPRESSION: 1. 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 2. Small central disc bulges at L3-L4, L4-L5 and L5-S1 along with facet arthropathy causing spinal canal stenosis and mild bilateral neural foraminal stenosis. 3. Hemangioma in L4 vertebrae measuring 1.5 cm. This document has been electronically signed by: Abi Gaspar MD on 07/21/2025 22:18:12 us Meche [facility] IMG MRI PROCEDURES Final Result * Sedimentation rate, automated (07/13/2025 5:06 AM EDT) Only the most recent of2 resultswithin the time period is included. Sed Rate 15 0 - 20 mm/hr LAB HEMETOLOGY METHOD 07/13/2025 5:34 AM EDT [facility] Blood Venous blood specimen / Unknown Venipuncture / Unknown 07/13/2025 5:06 AM EDT 07/13/2025 5:22 AM EDT us Catherine RUDD LAB BLOOD ORDERABLES Fin al Result [facility] [address] [place] [address], [place] [phone] * US Abdomen Limited (07/01/2025 7:04 PM EDT) Anatomical Region Laterality Modality Body Ultrasound 07/01/2025 7:06 PM EDT Impressions 07/01/2025 7:08 PM EDT There is an 8.3 cm lipoma in the inferior left axilla. -------- FINAL REPORT -------- Dictated By: Artemio Deleon Dictated Date: 07/01/2025 19:06 ET Assigned Physician: Artemio Deleon Reviewed and Electronically Signed By: Artemio Deleon Signed Date: 07/01/2025 19:08 ET Workstation ID: [id number] Transcribed By: Self Edit Transcribed Date: 07/01/2025 19:06 ET Narrative 07/01/2025 7:08 PM EDT ULTRASOUND OF THE LEFT AXILLA CLINICAL HISTORY: soft tissue mass to L inferior axilla/superior flank TECHNIQUE: Multiple ultrasound images of the left axilla were obtained. COMPARISON: None. FINDINGS: There is an 8.3 x 3.0 x 7.5 cm lipoma in the inferior left axilla. Procedure Note Artemio Deleon MD - 07/01/2025 ULTRASOUND OF THE LEFT AXILLA CLINICAL HISTORY: soft tissue mass to L inferior axilla/superior flank TECHNIQUE: Multiple ultrasound images of the left axilla were obtained. COMPARISON: None. FINDINGS: There is an 8.3 x 3.0 x 7.5 cm lipoma in the inferior left axilla. IMPRESSION: There is an 8.3 cm lipoma in the inferior left axilla. -------- FINAL REPORT -------- Dictated By: Artemio Deleon Dictated Date: 07/01/2025 19:06 ET Assigned Physician: Artemio Deleon Reviewed and Electronically Signed By: Artemio Deleon Signed Date: 07/01/2025 19:08 ET Workstation ID: [id number] Transcribed By: Self Edit Transcribed Date: 07/01/2025 19:06 ET us Mattie RUDD IMG US PROCEDURES Final Result * CT Abdomen Pelvis wo Contrast (07/01/2025 6:11 PM EDT) Anatomical Region Laterality Modality Body Computed Tomogra phy 07/01/2025 6:33 PM EDT Impressions 07/01/2025 6:38 PM EDT 1. There is a 0.1 cm nonobstructing left renal stone. No ureteral stone or hydroureteronephrosis. -------- FINAL REPORT -------- Dictated By: Artemio Deleon Dictated Date: 07/01/2025 18:33 ET Assigned Physician: Artemio Deleon Reviewed and Electronically Signed By: Artemio Deleon Signed Date: 07/01/2025 18:38 ET Workstation ID: [id number] Transcribed By: Self Edit Transcribed Date: 07/01/2025 18:33 ET Narrative 07/01/2025 6:[address] OF THE ABDOMEN AND PELVIS WITHOUT IV CONTRAST CLINICAL HISTORY: blood in urine, eval stone, low back pain TECHNIQUE: Serial axial images obtained. Sagittal reconstructed images obtained. Coronal reconstructed images obtained. Exam is performed without intravenous contrast. Per PQRS, CT exam is performed using one or more of the following dose reduction techniques: Automated exposure control, adjustment of the mA and/or KV according to patient size, or use of iterative reconstruction techniques. COMPARISON: None FINDINGS: HEART: Normal sized heart. LOWER THORAX: No pleural effusion seen. No consolidation. VISUALIZED CHEST SPARKS: Visualized chest sparks are unremarkable. VISCERA: Calcified lymph nodes versus surgical material near the diaphragmatic hiatus. VASCULATURE: Appearance is unremarkable. ESOPHAGUS: Visualized portions of the esophagus are unremarkable. STOMACH: Appearance is unremarkable. PANCREAS: Appearance is unremarkable. GALLBLADDER: Appearance is unremarkable. LIVER: Appearance is unremarkable. ADRENALS: Appearance is unremarkable. SPLEEN: Calcified granuloma in the spleen. KIDNEYS: There is a 0.1 cm nonobstructing left renal stone. No ureteral stone or hydroureteronephrosis. BLADDER: Appearance is unremarkable. GENITAL: Appearance is unremarkable. SMALL BOWEL: Appearance is unremarkable. Negative for small bowel dilatation. APPENDIX: Normal appendix. COLON: Appearance is unremarkable. ABDOMINAL/PELVIC SPARKS: Small fat-containing umbilical hernia. Postoperative changes in the right anterior abdominal wall. BONES: Mild degenerative changes of the spine. Procedure Note Artemio Deleon MD - 07/01/2025 CT OF THE ABDOMEN AND PELVIS WITHOUT IV CONTRAST CLINICAL HISTORY: blood in urine, eval stone, low back pain TECHNIQUE: Serial axial images obtained. Sagittal reconstructed images obtained. Coronal reconstructed images obtained. Exam is performed without intravenous contrast. Per PQRS, CT exam is performed using one or more of the following dosereduction techniques: Automated exposure control, adjustment of the mAand/or KV according to patient size, or use of iterative reconstructiontechniques. COMPARISON: None FINDINGS: HEART: Normal sized heart. LOWER THORAX: No pleural effusion seen. No consolidation. VISUALIZED CHEST SPARKS: Visualized chest sparks are unremarkable. VISCERA: Calcified lymph nodes versus surgical material near thediaphragmatic hiatus. VASCULATURE: Appearance is unremarkable. ESOPHAGUS: Visualized portions of the esophagus are unremarkable. STOMACH: Appearance is unremarkable. PANCREAS: Appearance is unremarkable. GALLBLADDER: Appearance is unremarkable. LIVER: Appearance is unremarkable. ADRENALS: Appearance is unremarkable. SPLEEN: Calcified granuloma in the spleen. KIDNEYS: There is a 0.1 cm nonobstructing left renal stone. No ureteralstone or hydroureteronephrosis. BLADDER: Appearance is unremarkable. GENITAL: Appearance is unremarkable. SMALL BOWEL: Appearance is unremarkable. Negative for small boweldilatation. APPENDIX: Normal appendix. COLON: Appearance is unremarkable. ABDOMINAL/PELVIC SPARKS: Small fat-containing umbilical hernia.Postoperative changes in the right anterior abdominal wall. BONES: Mild degenerative changes of the spine. IMPRESSION: 1. There is a 0.1 cm nonobstructing left renal stone. No ureteral stone orhydroureteronephrosis. -------- FINAL REPORT -------- Dictated By: Artemio Deleon Dictated Date: 07/01/2025 18:33 ET Assigned Physician: Artemio Deleon Reviewed and Electronically Signed By: Artemio Deleon Signed Date: 07/01/2025 18:38 ET Workstation ID: [id number] Transcribed By: Self Edit Transcribed Date: 07/01/2025 18:[address] CT PROCEDURES Final Result from Last 3 Months Additional Health Concerns Active Problems Noted Date Diagnosed Date Autogenerated Problem 08/05/2025 Autogenerated Problem 07/28/2025 Insurance [facility] MEDICAID ADVANTAGE [address] [place] [phone] Advance Directives * Full Code - Default (Latest Code Status on File) Date Activated Date Inactivated Comments 08/04/2025 1:45 PM 08/05/2025 1:02 PM This is or scottie is used when code status has not been discussed with the patient, or code status is otherwise unknown/unconfirmed To update the patient's code status, place a code status order. Do not modify or discontinue any currently active code status orders. * Full Code - Default Date Activated Date Inactivated Comments 08/04/2025 5:53 AM 08/04/2025 1:45 PM This is or scottie is used when code status has not been discussed with the patient, or code status is otherwise unknown/unconfirmed To update the patient's code status, place a code status order. Do not modify or discontinue any currently active code status orders. Care Teams Control Room Helper Relationship Specialty Start Date End Date Clifford Kim MD [address] [place] [address] [place] PCP - General Internal Medicine 07/08/25
--- NOTE | 2025-08-08 10:40 | PC.NURSE ---
ambulates with steady gait but slowly. c/o right sided lower back pain.
--- NOTE | 2025-08-08 11:29 | ED_ITS ---
HPI - Fall General Chief Complaint: Fall Stated Complaint: fell in shower recent back surgery 08/04 Time Seen by Provider: 08/08/25 11:28 Source: patient Mode of arrival: ambulatory Limitations: no limitations History of Present Illness ED Provider: BREE CARABALLO PA-C HPI Narrative: 54 year old male with pmhx significant for DM, migraines, HTN, HLD, cauda equina s/p lumbar surgery in the past presents to the ED today for evaluation of back pain s/p mechanical slip and fall yesterday. Patient is 4 days s/p spinal nerve decompression at [facility] on 08/04/25 for low back pain and RLE numbness. He has been doing well, taking oxycodone as needed for pain. Yesterday, patient bent forward in the shower and slipped, causing him to fall backwards. No head strike or LOC. He was on the ground for hours as he had difficulty standing up due to the pain. He was able to call his sister who arrived, helped him to stand and took him to her house. He declined to be taken to the ED at that time. Reports taking Oxycodone following the fall with temporary improvement in pain. His last dose was yesterday. He endorses pain to his lower back, radiating down his RLE. Admits to chronic numbness to his RLE, unchanged since fall. Denies bowel/bladder incontinence or retention. Also reports recent diagnosis of UTI for which he is currently on a course of abx. Admits to mild dysuria. No hematuria, flank pain, abdominal pain, N/V. Admits to history of kidney stones years ago. Related Data Home Medications ?Medication ?Instructions ?Recorded ?Confirmed fluoxetine 20 mg capsule 60 mg PO DAILY 05/14/21 08/03/04 prazosin 2 mg capsule 2 mg PO BEDTIME 05/14/2103/04 risperidone 4 mg tablet 4 mg PO BEDTIME 05/14/2103/04 Previous Rx's ?Medication ?Instructions ?Recorded aspirin 81 mg tablet,delayed 81 mg PO DAILY #30 tabs 0 05/19/21 release heparin (porcine) 25,000 unit/250 25,000 unit (250 mL) continuous IV 05/19/21 mL in 0.45 % sodium chloride IV infusion .Q0M #250 mL soln cyclobenzaprine 10 mg tablet 10 mg PO BEDTIME PRN musc le spasm 12/04/21 #14 tabs oxycodone 5 mg tablet 5 mg PO Q8H PRN pain #10 tab s 12/04/21 oxycodone 5 mg tablet 5 mg PO Q8H PRN pain #10 tab s 12/04/21 cyclobenzaprine 10 mg tablet 10 mg PO TID PRN muscle s pasm #10 01/06/22 tabs ibuprofen 600 mg tablet 600 mg PO Q6H PRN pain #14 t abs 01/06/22 cyclobenzaprine 5 mg tablet 5 mg PO BEDTIME PRN muscle spasm 06/20/22 #4 tabs ketorolac 10 mg tablet 10 mg PO Q6H PRN pain 5 days #20 06/20/22 tabs ciprofloxacin HCl 250 mg tablet 250 mg PO Q12H 7 days #14 tabs 08/21/22 oxycodone 5 mg capsule 5 mg PO TID PRN pain 3 days #9 caps 08/21/22 prednisone 20 mg tablet 40 mg (2 x 20 mg) PO DAILY 5 days 08/21/22 #10 tabs prednisone 20 mg tablet 20 mg PO DAILY 12 days #26 t abs 05/24/24 cyclobenzaprine 10 mg tablet 10 mg PO TID PRN muscle s pasm #20 01/12/25 tabs prednisone 20 mg tablet 40 mg (2 x 20 mg) PO DAILY 5 days 01/12/25 #10 tabs Allergies Allergy/AdvReac Type Severity Reaction Status Date / Time lisinopril (LISINOPRIL) Allergy Severe ANGIOEDEMA Verified 08/08/25 09:50 Review of Systems 2 Review of Systems: Yes all other systems are reviewed and are negative [facility] Past Medical History Attestation statement: The following information was validated with the patient. Source: old records reviewed and nursing notes reviewed Medical History Lumbar radiculopathy Tubular adenoma of colon Obstructive sleep apnea Migraines Illiteracy Hyperlipidemia HTN (hypertension) GERD (gastroesophageal reflux disease) Fatty infiltration of liver Diabetes Depression COVID-19 Chronic neck pain Cervical stenosis of spine Cauda equina syndrome Slipped intervertebral disc Arthritis High cholesterol Social History Social History Alcohol intake: current Alcohol intake frequency: holidays/special occasions only Patient Tobacco Use Status: Never used Tobacco Advance Directives Date on File: 05/14/21 service: No Current occupational status: unemployed Physical Exam 2 Vital Signs: Vital Signs: Last Vital Signs Temp 98.7 F 08/08/25 20:15 Pulse 97 08/08/25 20:15 Resp 18 08/08/25 20:15 BP 112/74 08/08/25 20:15 Pulse Ox 94 08/08/25 20:15 O2 Del Method Room Air 08/08/25 20:15 BMI result Body Mass Index 31.9 vital signs stable, afebrile General: Well appearing, in no acute distress. Skin: Warm, dry, intact. No rashes or lesions. Head: Normocephalic, atraumatic. EENT: Hearing is intact b/l. Conjunctiva clear. PERRLA. EOM intact. Moist mucous membranes.? Neck: Supple without LAD Cardiac: Chest wall symmetric. RRR Lungs: Normal respiratory effort without accessory muscle use. CTA bilaterally Abdomen: Soft, non-tender, non-distended. No rebound tenderness or guarding. Positive BS x4. no cvat. Back: +see photo of lumbar spine below: +midline lumber spinous tenderness over incision site, no palpable warmth/fluctuance/crepitus/deformity or step off. no expressible discharge. no crusting, surrounding erythema. Ext: Upper and lower extremities atraumatic, without tenderness, deformity, swelling or erythema Neuro: AOx3. Normal speech. Strength 4/5 to LEs. Decreased sensation to entire RLE when compared to LLE - states chronic and unchanged. 2+ patellar DTRs. NV intact distally. Ambulating with limping gait. Course Course Course Narrative: CBC showing slight leukocytosis to 12.7 without left shift. This appears to be around patient's baseline when compared to priors. No anemia, H and H stable. Chemistry without acute electrolyte abnormality requiring intervention. No JOSEPHINE. Liver function at baseline. Urine showing trace blood, small leukocyte esterase and 3-5 RBCs - no bacteria. X-ray lumbar spine without acute fracture/injury, there is [id number] multilevel lumbar spondylosis similar to prior imaging. CT abdomen/pelvis without obstructing ureteral stone. > patient medicated with toradol, morphine, dilaudid with some improvement in pain. still endorsing 6/10 discomfort. I have been able to get up him and ambulating with slow but steady gait to the restroom. > his work up is quite unremarkable. he does not have any acute neuro symptoms that would warrant an emergent lumbar MRI. > discussed all workup results with patient. Given continued discomfort, we discussed physical therapy/case management consultation however patient is declining at this time. He feels safe being discharged home. He has oxycodone at home for pain control, prescribed by his surgeon. States he received approximately 120 pills. I advised patient to follow up with his surgeon Sunday morning. someone will be picking him up from the ED to transport him home this evening. Patient has remained stable throughout ED visit today. Discussed worrisome signs and symptoms and when to return to the ED. All questions answered at this time. Patient is agreeable with disposition and stable for discharge. Medications Administered Discontinued Medications Generic Name Dose Route Start Last Admin Trade Name Freq PRN Reason Stop Dose Admin Cyclobenzaprine HCl 10 mg 08/08/25 11:42 08/08/25 11:59 Cyclobenzaprine Hcl 10 Mg Tablet PO 08/08/25 11:43 10 mg ONCE ONE Administration Hydromorphone HCl 1 mg 08/08/25 15:54 08/08/25 16:35 Hydromorphone Hcl 1 Mg/Ml Syringe IVPUSH 08/08/25 15:55 1 mg ONCE ONE Administration Protocol Ketorolac Tromethamine 30 mg 08/08/25 11:42 08/08/25 12:02 Ketorolac Tromethamine 30 Mg/Ml Vial IM 08/08/25 11:43 30 mg ONCE ONE Administration Lidocaine 1 patch 08/08/25 11:42 08/08/25 12:00 Lidocaine 4 % Patch Adh..Patch TRANSDERMA 08/08/25 11:43 1 patch ONCE ONE Administration Protocol Methylprednisolone Sodium Succinate 60 mg 08/08/25 13:04 08/08/25 13:35 Methylprednisolone Sod Succ 125 Mg/2 Ml Vial IVPUSH 08/08/25 13:05 60 mg ONCE ONE Administration Morphine Sulfate 4 mg 08/08/25 13:30 08/08/25 13:34 Morphine Sulfate 4 Mg/Ml Cartridge IVPUSH 08/08/25 13:31 4 mg ONCE ONE Administration Medical Decision Making Medical Decision Making MDM Narrative: 54 year old male with pmhx significant for DM, migraines, HTN, HLD, cauda equina s/p lumbar surgery in the past presents to the ED today for evaluation of back pain s/p mechanical slip and fall yesterday. vital signs stable. he is uncomfortable appearing however in NAD. Differential diagnosis includes MSK sprain/strain, contusion, muscle spasm, lumbar radiculopathy, sciatica, arthritis, disc herniation, rhabdomyolysis. I have also considered UTI, renal colic, nephrolithiasis, pyelonephritis. Unlikely cord compression, cauda equina, Guillain-[place], epidural abscess. Plan for blood work, UA, x-ray lumbar spine, pain control and re-evaluation. Differential Diagnosis Differential Diagnoses: The differential diagnosis associated with the presentation includes as above. Admission/Observation not indicated Lab Data [facility] Lab Attestation statement: I reviewed the patient's lab results. as above. 08/08/25 11:48 08/08/25 11:48 Labs: Lab Results 08/08/25 08/08/25 Range/Units 10:07 11:48 WBC 12.7 H (4.8-10.8) X10*3/uL RBC 5.28 (4.60-5.80) X10*6/uL Hgb 14.7 (14.0-18.0) g/dl Hct 45.7 (42.0-52.0) % MCV 86.6 (80.0-98.0) fL MCH 27.8 (27.0-33.0) pg MCHC 32.2 (31.0-36.0) g/dl RDW 14.7 (11.0-16.0) % Plt Count 283 (160-400) X10*3/uL MPV 9.9 (9.4-12.4) fL Immature Gran % (Auto) 1.7 H (0.0-0.4) % Neut % (Auto) 65.5 (45-73) % Lymph % (Auto) 22.0 (20-40) % [place] % (Auto) 6.7 (2-11) % Eos % (Auto) 3.6 (0-4) % Baso % (Auto) 0.5 (0-2) % Lymph # (Auto) 2.8 (1.2-4.9) X10*3/uL [place] # (Auto) 0.9 (0.1-1.2) X10*3/uL Eos # (Auto) 0.5 H (0.0-0.4) X10*3/uL Baso # (Auto) 0.1 (0.0-0.2) X10*3/uL Abs Immat Gran (auto) 0.22 H (0.00-0.03) X10*3/uL Absolute Neuts (auto) 8.3 (2.0-8.3) x10*3/uL Absolute Nucleated RBC 0.000 (0.0-0.012) X10*3/uL Nucleated RBC % (auto) 0.0 (0.0-0.2) /100WBC Sodium 141 (135-145) mmol/L Potassium 3.9 (3.3-5.1) mmol/L Chloride 100 (96-108) mmol/L Carbon Dioxide 33 H (22-29) mmol/L Anion Gap 12 (12-20) BUN 8 L (9-16) mg/dL Creatinine 0.96 (0.5-1.4) mg/dL Estim Creat Clear Calc 90.2 Estimated GFR > 60 Random Glucose 81 (60-115) mg/dL Calcium 9.2 D (8.4-10.2) mg/dL Magnesium 2.0 (1.6-2.6) mg/dL Total Bilirubin 0.4 (0.0-1.0) mg/dL AST 21 (5-37) U/L ALT 15 (0-40) U/L Alkaline Phosphatase 112 (39-117) U/L Total Creatine Kinase 73 (38-174) U/L Total Protein 7.1 (6.5-8.0) g/dL Albumin 4.0 (3.5-5.0) g/dL Lipase 27 (8-78) U/L Urine Color Yellow Urine Appearance Clear Urine pH 8.5 (5.0-9.0) Ur Specific [place] 1.010 (1.005-1.025) Urine Protein Negative (Neg-Trace) mg/dL Urine Glucose (UA) Negative (Negative) mg/dL Urine Ketones Negative (Negative) mg/dL Urine Blood Trace H (Negative) Urine Nitrite Negative (Negative) Ur Leukocyte Esterase Small (1+) H (Negative) Urine RBC 3-5 H (0-2) /HPF Urine WBC 0-5 (0-5) /HPF Ur Squamous Epith Cells 3-5 (0-2) /HPF Urine Bacteria None Seen (None Seen) Hyaline Casts 0-2 (0-2) /LPF Independent Interpretation I performed an independent interpretation of an: Plain X-Ray and CT Scan Interpretation: xr lumbar spine without compression fracture ct a/p without obstructing ureteral stone Radiology Impression Discussion of test interpretation with radiology: I have reviewed the radiologist's reading. Radiologist Impression: Procedure(s): CT abdomen pelvis wo IV con Accession Number(s): [id number] cc: Physician,Unknown ; Bree Caraballo~ Report Number: [id number]: Total DLP = 572.00 mGy-cm Reason for Exam: right flank pain CLINICAL HISTORY: right flank pain Exam: Unenhanced CT abdomen and pelvis with multiplanar reformats. Comparison: 08/20/2022. Findings: CT abdomen: Lung bases are clear. Liver is free of focal lesions and ductal dilatation. Gallbladder is unremarkable. Spleen reveals a stable granulomatous calcification and is otherwise unremarkable. Pancreas and adrenal glands appear unremarkable. Kidneys appear unremarkable. No urolithiasis or hydroureteronephrosis. No free intraperitoneal fluid or retroperitoneal masses or adenopathy. Abdominal aorta is normal caliber. Bowel loops reveal no abnormal wall thickening or distention. The appendix is unremarkable. No significant diverticular disease. CT pelvis: Prostate gland and seminal vesicles are stable. Urinary bladder is free of gross filling defects. No pelvic masses, fluid or adenopathy. Osseous structures reveal no destructive osseous lesions. Impression: 1. No acute abnormalities or CT explanation for reported history of right flank pain. Specifically, no urolithiasis or hydroureteronephrosis. Unremarkable appendix. This document has been electronically signed by: Dawood Leonardo MD on 08/08/2025 18:20:03 Procedure(s): XR lumbar spine 2-3V Accession Number(s): [id number] cc: Physician,Unknown ; Bree Caraballo~ Reason for Exam: low back pain s/p surgery CLINICAL HISTORY: low back pain s p surgery Three views of the lumbar spine. COMPARISON: XR lumbar spine dated 01/12/25 at 07:45 EDT FINDINGS: Five eii-sqc-obngeeh lumbar type vertebral bodies. Normal vertebral body alignment. Vertebral body heights are maintained. No evidence of acute vertebral body injury. Small marginal osteophytes present throughout the visualized lower thoracic and lumbar spine. Vertebral disc space heights are preserved. Facet joint arthrosis in the lower lumbar spine. Status post laminectomy at L4-5 and L5-S1 with resection of the spinous process at L4. Visualized portions of the bones of the pelvis appear intact. IMPRESSION: 1. No radiographic evidence of acute injury to the lumbar spine. 2. Mild to moderate multilevel lumbar spondylosis, similar to prior imaging This document has been electronically signed by: Tyrone Chester MD on 08/08/2025 14:56:52 External Record Review External record reviewed: Inpatient record, Office record, Outpatient record, Prior outpatient labs and Prior outpatient radiology Prescription Management I considered prescription management with: Pain Medication Chronic Conditions Patient?s care impacted by: Other (lumbar pain) Social Determinants Patient?s care significantly limited by Social Determinants of Health including: Other Social Determinant of Health Critical Care Time Critical Care Time Critical Care Time: Yes Total Critical Care Time: 45 Attestation: Critical care time in the amount of 45 minutes has been provided to the patient in terms of direct patient care, frequent reevaluation on IV morphine and dilaudid, review and interpretation of medical data and results, and management of potentially life-threatening conditions. This is all outside of any medical procedures. Discharge Plan Discharge Clinical Impression: Lumbar back pain Patient Disposition: Home, Self-Care Instructions: Acute Low Back Pain (ED) Additional Instructions: You were evaluated in the Emergency Department today for your back pain.? Your evaluation did not show signs of medical conditions requiring emergent intervention at this time. We discussed physical therapy/case management consultations however you are declining at this time and would like to be discharged home. Avoid bending, lifting, or twisting. Use ice several times per day for 20 minutes at a time for the next 48 hours and then change to heat. I recommend you take 600mg ibuprofen every 6 hours or tylenol 650mg every 6 hours as needed for pain. If needed, you can alternate these medications so that you take one medication every 3 hours. For example, at noon take ibuprofen, then at 3pm take Tylenol, then at 6pm take ibuprofen. Flexeril is a muscle relaxer. Take this at night as it makes you drowsy. Do not drive, drink alcohol, or operate machinery while taking it. Lidoderm patches are numbing patches. Apply to painful areas. Please follow up with your surgeon. Contact them Sunday morning to touch base. Please schedule an appointment for follow-up with your primary care provider this week for further evaluation of your symptoms. Return to the Emergency Department if you experience worsening back pain, difficulty walking, fevers, numbness, tingling, incontinence, or any other concerning symptoms. In the case of an emergency call 911. Prescriptions: No Action risperidone 4 mg tablet 4 mg PO BEDTIME fluoxetine 20 mg capsule 60 mg PO DAILY prazosin 2 mg capsule 2 mg PO BEDTIME heparin(porcine) in 0.45% NaCl 25,000 unit/250 mL Parenteral Solution 25,000 unit continuous IV infusion .Q0M Qty: 250 0RF Rx Instructions: Infuse per protocol aspirin 81 mg tablet,delayed release (DR/EC) 81 mg PO DAILY Qty: 30 0RF cyclobenzaprine 5 mg tablet 5 mg PO BEDTIME PRN (Reason: muscle spasm) Qty: 4 0RF ketorolac 10 mg tablet 10 mg PO Q6H PRN (Reason: pain) 5 Days Qty: 20 0RF Rx Instructions: 1. Patient had Toradol in the emergency room. 2. Please instruct patient to refrain from all other NSAIDs. cyclobenzaprine 10 mg tablet 10 mg PO BEDTIME PRN (Reason: muscle spasm) Qty: 14 0RF oxycodone 5 mg tablet 5 mg PO Q8H PRN (Reason: pain) Qty: 10 0RF oxycodone 5 mg tablet 5 mg PO Q8H PRN (Reason: pain) Qty: 10 0RF ibuprofen 600 mg tablet 600 mg PO Q6H PRN (Reason: pain) Qty: 14 0RF cyclobenzaprine 10 mg tablet 10 mg PO TID PRN (Reason: muscle spasm) Qty: 10 0RF prednisone 20 mg tablet 40 mg PO DAILY 5 Days Qty: 10 0RF ciprofloxacin HCl 250 mg tablet 250 mg PO Q12H 7 Days Qty: 14 0RF oxycodone 5 mg capsule 5 mg PO TID PRN (Reason: pain) 3 Days Qty: 9 0RF Rx Instructions: Partial Fill upon patient request. prednisone 20 mg tablet 20 mg PO DAILY 12 Days Qty: 26 0RF Rx Instructions: Take 3 tablets for 5 days THEN; Take 2 tablets for 4 days THEN; Take 1 tablet for 3 days cyclobenzaprine 10 mg tablet 10 mg PO TID PRN (Reason: muscle spasm) Qty: 20 0RF prednisone 20 mg tablet 40 mg PO DAILY 5 Days Qty: 10 0RF Referrals: Physician,Unknown J [Primary Care Provider, Medical] Interventions: ED Discharge Assessment Last Done: 08/08/25 20:15 Discharge Date/Time: 08/08/25 20:16 Print Language: Togolese
[2025-08-08 11:51] LABS: MANUAL DIFF FLAG NO
[2025-08-08 11:55] LABS: Hematocrit 45.7 % (42.0-52.0); Hemoglobin 14.7 g/dl (14.0-18.0); Imm Gran Abs Auto 0.22 X10*3/uL (0.00-0.03); Imm Gran Pct Auto 1.7 % (0.0-0.4); Lymphocytes Absolute Auto 2.8 X10*3/uL (1.2-4.9); Mean Corpuscular HGB Conc 32.2 g/dl (31.0-36.0); Mean Corpuscular Hemoglobin 27.8 pg (27.0-33.0); Mean Corpuscular Volume 86.6 fL (80.0-98.0); NRBC Abs Auto 0.000 X10*3/uL (0.0-0.012); NRBC Pct Auto 0.0 /100WBC (0.0-0.2); Platelet Count 283 X10*3/uL (160-400); Red Blood Count 5.28 X10*6/uL (4.60-5.80); White Blood Count 12.7 X10*3/uL (4.8-10.8)
[2025-08-08] MEDS: Lidocaine 4 % Patch ADH..PATCH 1 PATCH TRANSDERMA (12:00)
[2025-08-08 12:09] LABS: Alanine Aminotransferase 15 U/L (0-40); Albumin Level 4.0 g/dL (3.5-5.0); Alkaline Phosphatase 112 U/L (39-117); Anion Gap 12 (12-20); Aspartate Amino Transferase 21 U/L (5-37); Blood Urea Nitrogen 8 mg/dL (9-16); Calcium 9.2 mg/dL (8.4-10.2); Carbon Dioxide 33 mmol/L (22-29); Chloride 100 mmol/L (96-108); Creatinine Clr Calc Pharmacy 90.2; Estimated Glomerular Filt Rate > 60; Lipase 27 U/L (8-78); Magnesium 2.0 mg/dL (1.6-2.6); Potassium 3.9 mmol/L (3.3-5.1); Sodium 141 mmol/L (135-145); Total Protein 7.1 g/dL (6.5-8.0)
[2025-08-08 12:18] VITALS: BP 115/68; PULSE 79; RESP 16; TEMP 36.7; O2SAT 98
[2025-08-08 14:18] VITALS: BP 126/76; PULSE 85; TEMP 37; O2SAT 97
[2025-08-08 19:28] VITALS: BP 112/74; PULSE 97; RESP 18; O2SAT 94
[2025-08-08 20:15] VITALS: BP 112/74; PULSE 97; RESP 18; TEMP 37.1; O2SAT 94
== END 2025-08-08 20:16 | disposition home or self-care (01) ==
PROVIDERS: Physician Assistant Medical; Emergency Provider Emergency Medicine Emergency Medical Services
DX: M54.50 Low back pain, unspecified (principal); E11.9 Type 2 diabetes mellitus without complications; I10 Essential (primary) hypertension; Z79.899 Other long term (current) drug therapy
CPT/HCPCS: 36415; 72100; 74176; 80053; 81001; 82550; 83690; 83735; 85025; 87086; 96372; 96374; 96375; 99285; J1171; J1885; J2270; J2919

== ENCOUNTER → 2025-08-08 11:42 | Outpatient (BNV) | payer OTHER, SELFPAY | PROVIDERS: Emergency Provider Emergency Medicine Emergency Medical Services; Visit Provider Radiology Diagnostic Radiology | DX: R10.A1 Flank pain, right side (principal); M47.816 Spondylosis without myelopathy or radiculopathy, lumbar region | CPT/HCPCS: 72100; 74176 ==